=== PATIENT | female | born 1965 | race Caucasian/White ===

== ENCOUNTER → 2017-08-17 14:09 | Outpatient (CLI) | payer OTHER, SELFPAY | PROVIDERS: Family Provider Family Medicine; PCP Family Medicine; Visit Provider Specialist | DX: M25.511 Pain in right shoulder (principal); Z53.9 Procedure and treatment not carried out, unspecified reason ==

== ENCOUNTER → 2017-08-18 09:00 | Outpatient (CLI) | payer OTHER, SELFPAY ==
--- NOTE | 2017-08-18 | DI.US.S_ITS ---
PROCEDURE: US PERIPH VENOUS UP EXTREM RT INDICATIONS: RIGHT SHOULDER PAIN TECHNIQUE: Real-time imaging, as well as color and pulse Doppler interrogation, was performed of the right upper extremity deep veins from the inferior neck to the antecubital fossa. COMPARISON: None. FINDINGS: The internal jugular vein, visualized portions of the subclavian vein, axillary, and brachial veins are free of intraluminal thrombus. Where physically possible, the veins are normally compressible. Color and pulse Doppler demonstrate normal intraluminal flow, with expected phasicity and pulsatility. Additional scanning of the cephalic and basilic veins of the superficial system demonstrate normal compressibility, without thrombus. IMPRESSION: No evidence of right upper extremity DVT. Dictated by: Kristian Bolton M.D. on 08/18/2017 at 10:54 Approved by: Kristian Bolton M.D. on 08/18/2017 at 10:54
== END ==
PROVIDERS: Family Provider Family Medicine; PCP Family Medicine; Visit Provider Surgery
DX: M25.511 Pain in right shoulder (principal)
CPT/HCPCS: 93971

== ENCOUNTER 2017-08-21 11:04 | Emergency (ER) | payer OTHER, SELFPAY ==
[2017-08-21 11:14] VITALS: BP 164/90; PULSE 109; RESP 16; TEMP 37.2; O2SAT 100
--- NOTE | 2017-08-21 11:16 | ED.CHESTPAIN ---
HPI - Chest Pain General Chief Complaint: Chest Pain Stated Complaint: CHEST PAINS Time Seen by Provider: 08/21/17 11:16 Source: patient and RN notes reviewed Mode of arrival: ambulatory Limitations: no limitations History of Present Illness HPI narrative: Patient is a 52-year-old female presenting with chest pain. He is been ongoing for a number of weeks. She said she was diagnosed with pneumonia she is placed on Cipro she is still taking Cipro but almost done. Hurts every time she breathes in every time she moves. Today at [facility] she was seen and she felt that she could not think she started having increasing pain and came to the ED. She is very anxious now. He had something similar to this happen to her in April. She was seen multiple times in the same week. She is asking for pain medication. MD complaint: chest pain Related Data Home Medications Medication Instructions Recorded Confirmed CA PANTOTHENATE/FOLIC ACID/VIT 1 tab PO QDAY #0 tab 01/08/13 (MULTIVITAMIN) albuterol sulfate [Proventil HFA] 2 puff INH Q4HP PRN #0 01/08/13 hydroxyzine HCl 25 mg PO QID #0 01/08/13 magnesium oxide 400 mg PO Q DAY #0 tab 01/08/13 pregabalin [Lyrica] 225 mg PO BID #0 01/08/13 insulin glargine [Lantus U-100 15 unit SQ QPM #0 06/16/16 Insulin] duloxetine 60 mg PO QDAY #0 07/04/17 gabapentin [Neurontin] 600 mg PO TID #0 07/04/17 hydrocodone-acetaminophen [Vicodin] #0 07/04/17 multivitamin [Multiple Vitamins] 1 tab PO QDAY #0 07/04/17 zolpidem [Ambien] 10 mg PO HS #0 07/04/17 Previous Rx's Medication Instructions Recorded levofloxacin [Levaquin] 750 mg PO QDAY #5 tab 02/04/17 diphenoxylate-atropine 1 tab PO Q4HP PRN #10 tab 05/13/17 sucralfate [Carafate] 1 gm PO ACHS 14 Days #0 ml 05/14/17 Allergies Allergy/AdvReac Type Severity Reaction Status Date / Time fenofibrate [FENOFIBRATE] Allergy Unknown Unverified 07/06/17 11:47 metformin [METFORMIN] Allergy Unknown Unverified 07/06/17 11:47 mupirocin Allergy Unknown Unverified 07/06/17 11:47 naproxen Allergy Unknown Unverified 07/06/17 11:47 nitrofurantoin Allergy Unknown NAUSEA Unverified 07/06/17 11:47 Penicillins Allergy Unknown SINCE Unverified 07/06/17 11:47 CHILDHOOD droperidol AdvReac Unknown Unverified 07/06/17 11:47 ibuprofen AdvReac Unknown NAUSEA Unverified 07/06/17 11:47 metoclopramide AdvReac Unknown BECAME Unverified 07/06/17 11:47 JITTERY AND ANXIOUS Review of Systems Review of Systems All systems reviewed & are unremarkable except as noted in HPI and below Constitutional Denies chills, Denies fever(s), Denies lethargy and Denies weakness Cardiovascular Reports as per HPI, Denies dyspnea and Denies dyspnea on exertion Respiratory Denies cough, Denies dyspnea, Denies dyspnea on exertion and Denies wheezing Gastrointestinal Gastrointestinal: Denies abdominal pain, Denies change in bowel habits, Denies diarrhea, Denies nausea and Denies vomiting Musculoskeletal Denies back pain, Denies muscle weakness, Denies numbness and Denies tingling Integumentary/Breasts Denies pruritus, Denies erythema, Denies rash and Denies wounds Neurologic Denies numbness, Denies tingling and Denies weakness Allergic/Immunologic Denies wheezing PFSH Medical History Anxiety (Acute) Port-a-cath in place (Acute) UTI (urinary tract infection) (Acute) Exam Initial Vital Signs Initial Vital Signs: Vital Signs Temperature 98.9 F 08/21/17 11:14 Pulse Rate 109 H 08/21/17 11:14 Respiratory Rate 16 08/21/17 11:14 Blood Pressure 164/90 H 08/21/17 11:14 Pulse Oximetry 100 08/21/17 11:14 Const General: anxious and other (tearfull) Nutritional Appearance: average body habitus Chest Chest: normal inspection of the chest Resp Effort & Inspection: normal respiratory effort, able to speak in complete sentences, no respiratory distress and no use of accessory muscles Auscultation: clear to auscultation bilaterally, no rales, no rhonchi and no wheezes Cardio Rate: regular rate Rhythm: regular rhythm Heart Sounds: no click, no gallops, no murmurs and no rubs Pulses: normal peripheral pulses GI Inspection: non-distended Palpation: soft, no hepatosplenomegaly, No guarding, No pulsatile mass and No tender Auscultation: normal bowel sounds Skin General: no rashes or lesions noted, No jaundice and No petechiae Neuro General: alert, oriented x3, gait normal and no focal motor deficits Speech: speech normal Course Orders Ordered: ED Orders 08/21/17 11:23 XR chest 1V Stat 08/21/17 11:31 B Type Natriuretic Peptide Stat Complete Blood Count AUTO DIFF Stat Comprehensive Metabolic Panel Stat D Dimer Stat Lipase Stat Troponin with CK Cardiac Panel Stat Discontinued Medications Aspirin (Aspirin Chew) 324 mg PO NOW ONE Stop: 08/21/17 11:24 Last Admin: 08/21/17 11:31 Dose: 324 mg Lorazepam (Ativan) 1 mg IV NOW ONE Stop: 08/21/17 11:42 Last Admin: 08/21/17 11:45 Dose: 1 mg Ondansetron HCl (Zofran) 4 mg IV NOW ONE Stop: 08/21/17 11:42 Last Admin: 08/21/17 11:45 Dose: 4 mg Vital Signs - 8 hr 08/21/17 11:14 08/21/17 12:10 08/21/17 13:11 Temperature 98.9 F Pulse Rate 109 H 99 H 98 H Respiratory Rate 16 12 14 Blood Pressure 164/90 H Blood Pressure [Right Arm] 145/86 H Pulse Oximetry 100 100 99 MDM - Chest Pain Differential Diagnosis Likely pneumothorax, unstable angina pectoris, atypical chest pain, costochondritis and chest pain Medical Records Data Attestation: I reviewed the patient's medical records. Lab Data Attestation: I reviewed the patient's lab results. Result diagrams: 08/21/17 11:31 08/21/17 11:31 Lab Results 08/21/17 08/21/17 08/21/17 Range/Units 11:31 11:31 11:31 WBC 13.2 H (4.5-11.0) X10^3/uL RBC 4.04 (4.0-5.2) X10^6/uL Hgb 12.2 (12.0-16.0) g/dL Hct 35.6 L (36-46) % MCV 88.2 (80-100) fL MCH 30.2 (26-34) PG MCHC 34.2 (30-36) % RDW 13.5 (11.6-14.8) % Plt Count 334 (150-400) X10^3/uL Neut % (Auto) 68.2 (50-75) % Lymph % (Auto) 25.2 (25-40) % Howell % (Auto) 5.7 (3-14) % Eos % (Auto) 0.4 L (2-4) % Baso % (Auto) 0.5 (0-2) % Neut # (Auto) 9000 H (9733-4956) /uL D-Dimer < 200 (<231) ng/mL Sodium 136 L (137-145) mmol/L Potassium 4.3 (3.4-5.1) mmol/L Chloride 100.0 (98-107) mmol/L Carbon Dioxide 24.0 (22-32) mmol/L BUN 15.0 (7-17) mg/dL Creatinine 0.50 L (0.52-1.04) mg/dL Estimated GFR > 60.0 (>60) mL/min BUN/Creatinine Ratio 30.0 H (6-22) Glucose 233 H (70-100) mg/dL Calcium 9.6 (8.4-10.2) mg/dL Total Bilirubin 0.4 (0.2-1.3) mg/dL AST 20 (14-36) IU/L ALT 19 (9-52) IU/L Alkaline Phosphatase 106 (38-126) U/L Total Creatine Kinase 38 (30-135) U/L Troponin I < 0.012 (0.01-0.034) ng/mL B-Natriuretic Peptide (<100) Total Protein 7.7 (6.3-8.2) g/dL Albumin 4.3 (3.5-5.0) g/dL Globulin 3.4 (1.7-4.1) g/dL Albumin/Globulin Ratio 1.3 (1.0-2.8) Lipase 19 L (23-300) U/L / Range/Units 11:31 WBC (4.5-11.0) X10^3/uL RBC (4.0-5.2) X10^6/uL Hgb (12.0-16.0) g/dL Hct (36-46) % MCV (80-100) fL MCH (26-34) PG MCHC (30-36) % RDW (11.6-14.8) % Plt Count (150-400) X10^3/uL Neut % (Auto) (50-75) % Lymph % (Auto) (25-40) % Howell % (Auto) (3-14) % Eos % (Auto) (2-4) % Baso % (Auto) (0-2) % Neut # (Auto) (3786-4591) /uL D-Dimer (<231) ng/mL Sodium (137-145) mmol/L Potassium (3.4-5.1) mmol/L Chloride (98-107) mmol/L Carbon Dioxide (22-32) mmol/L BUN (7-17) mg/dL Creatinine (0.52-1.04) mg/dL Estimated GFR (>60) mL/min BUN/Creatinine Ratio (6-22) Glucose (70-100) mg/dL Calcium (8.4-10.2) mg/dL Total Bilirubin (0.2-1.3) mg/dL AST (14-36) IU/L ALT (9-52) IU/L Alkaline Phosphatase (38-126) U/L Total Creatine Kinase (30-135) U/L Troponin I (0.01-0.034) ng/mL B-Natriuretic Peptide < 29.3 L (<100) Total Protein (6.3-8.2) g/dL Albumin (3.5-5.0) g/dL Globulin (1.7-4.1) g/dL Albumin/Globulin Ratio (1.0-2.8) Lipase (23-300) U/L Imaging Data Chest x-ray: Radiologist's impression: PROCEDURE: XR CHEST 1V INDICATIONS: chest pain TECHNIQUE: One view of the chest was acquired. COMPARISON: [facility], CHEST 1 VIEW, 07/12/2017, 9:01. [facility], CHEST 1 VIEW, 05/13/2017, 17:50. [facility], CHEST 2 VIEW, 01/10/2014, 11:32. FINDINGS: Surgical changes and devices: Port-A-Cath positioning stable over time. Lungs and pleura: No pleural effusions or pneumothorax. Lungs are clear. Mediastinum: Mediastinal contours appear normal. Heart size is normal. Bones and chest wall: No suspicious bony lesions. Overlying soft tissues appear unremarkable. IMPRESSION: Port-A-Cath in normal position, no pneumonia seen, source of new chest pain is not found. Venous US: Radiologist's impression: PROCEDURE: US PERIPH VENOUS UP EXTREM RT INDICATIONS: RIGHT SHOULDER PAIN TECHNIQUE: Real-time imaging, as well as color and pulse Doppler interrogation, was performed of the right upper extremity deep veins from the inferior neck to the antecubital fossa. COMPARISON: None. FINDINGS: The internal jugular vein, visualized portions of the subclavian vein, axillary, and brachial veins are free of intraluminal thrombus. Where physically possible, the veins are normally compressible. Color and pulse Doppler demonstrate normal intraluminal flow, with expected phasicity and pulsatility. Additional scanning of the cephalic and basilic veins of the superficial system demonstrate normal compressibility, without thrombus. IMPRESSION: No evidence of right upper extremity DVT. Dictated by: Kristian Bolton M.D. on 08/18/2017 at 10:54 ECG Data Attestation: I personally reviewed and interpreted this ECG as follows: Prior ECG tracings: available for review Interpretation: Normal sinus rhythm rate 1002 no ischemia similar to previous EKGs no ST changes MDM Narrative Medical decision making narrative: Patient is quite anxious. She has been having chest for is couple of weeks. It got worse today and then she started becoming very anxious. She was given Ativan. She is asking for Dilaudid. She is offered prednisone due to her NSAID allergy. She has a tumor go home and take her own pain medication. She had a Doppler of her right upper extremity a couple days ago which was negative and she has negative D-dimer today. I do not believe her to have PE. She had a similar presentation in April 2017 she had full PE workup, it was negative. Discharge Plan Departure Patient Disposition: Home, Self-Care Clinical Impression: Costochondritis Discharge Date/Time: 08/21/17 13:11 Interventions: ED Discharge Assessment Last Done: 08/21/17 13:11 Instructions: DI for Costochondritis Activity Restrictions/Additional Instructions: *You have been diagnosed with costochondritis *What to do: Inflammation between the ribs, this takes time to heal *Take medications as directed *Follow up with your primary care provider in 2-3 days *Return to ER if you should have any new, worsening or concerning symptoms Prescriptions: No Action hydroxyzine HCl 25 MG tablet 25 mg PO QID Qty: 0 RF: 0 magnesium oxide 400 MG tablet 400 mg PO Q DAY Qty: 0 RF: 0 pregabalin [Lyrica] 225 MG capsule 225 mg PO BID Qty: 0 RF: 0 CA PANTOTHENATE/FOLIC ACID/VIT (MULTIVITAMIN) 1 tab PO QDAY Qty: 0 RF: 0 albuterol sulfate [Proventil HFA] 90 MCG/PUFF HFA aerosol inhaler 2 puff INH Q4HP PRNQty: 0 RF: 0 insulin glargine [Lantus U-100 Insulin] 100 UNIT/1 ML solution 15 unit SQ QPM Qty: 0 RF: 0 levofloxacin [Levaquin] 750 MG tablet 750 mg PO QDAY Qty: 5 RF: 0 diphenoxylate-atropine 2.5 MG/0.025 MG tablet 1 tab PO Q4HP PRNQty: 10 RF: 0 sucralfate [Carafate] 1 GM/10 ML suspension 1 gm PO ACHS 14 Days Qty: 0 RF: 0 duloxetine 60 MG capsule,delayed release(DR/EC) 60 mg PO QDAY Qty: 0 RF: 0 gabapentin [Neurontin] 300 MG capsule 600 mg PO TID Qty: 0 RF: 0 multivitamin [Multiple Vitamins] 1 EACH tablet 1 tab PO QDAY Qty: 0 RF: 0 zolpidem [Ambien] 10 MG tablet 10 mg PO HS Qty: 0 RF: 0 hydrocodone-acetaminophen [Vicodin] 5-300 mg Tablet Qty: 0 RF: 0 Referrals: Fadi Ko DO [Primary Care Provider] -
--- NOTE | 2017-08-21 11:23 | DI.RAD.S_ITS ---
PROCEDURE: XR CHEST 1V INDICATIONS: chest pain TECHNIQUE: One view of the chest was acquired. COMPARISON: [facility], , CHEST 1 VIEW, 07/12/2017, 9:01. [facility], CR, CHEST 1 VIEW, 05/13/2017, 17:50. [facility], , CHEST 2 VIEW, 01/10/2014, 11:32. FINDINGS: Surgical changes and devices: Port-A-Cath positioning stable over time. Lungs and pleura: No pleural effusions or pneumothorax. Lungs are clear. Mediastinum: Mediastinal contours appear normal. Heart size is normal. Bones and chest wall: No suspicious bony lesions. Overlying soft tissues appear unremarkable. IMPRESSION: Port-A-Cath in normal position, no pneumonia seen, source of new chest pain is not found. Dictated by: Akbar Ortiz M.D. on 08/21/2017 at 11:53 Approved by: Akbar Ortiz M.D. on 08/21/2017 at 11:53
[2017-08-21] MEDS: ASPIRIN 81 MG TAB 324 MG PO (11:31)
[2017-08-21] MEDS: ONDANSETRON 4 MG/2 ML INJ IV (11:45)
[2017-08-21] MEDS: LORazepam 2 MG/ML SYRINGE 1 MG IV (11:45)
[2017-08-21 11:50] LABS: Add Manual Diff / Slide Review NO; Basophils Percent Auto 0.5 % (0-2); Eosinophils Percent Auto 0.4 % (2-4); Hematocrit 35.6 % (36-46); Hemoglobin 12.2 g/dL (12.0-16.0); Lymphocytes Percent Auto 25.2 % (25-40); Mean Corpuscular HGB Conc 34.2 % (30-36); Mean Corpuscular Hemoglobin 30.2 PG (26-34); Mean Corpuscular Volume 88.2 fL (80-100); Monocytes Percent Auto 5.7 % (3-14); Neutrophils Absolute Auto 9000 /uL (3000-5900); Neutrophils Percent Auto 68.2 % (50-75); Platelet Count 334 X10^3/uL (150-400); Red Blood Cell Count 4.04 X10^6/uL (4.0-5.2); Red Cell Distribution Width 13.5 % (11.6-14.8); White Blood Cell Count 13.2 X10^3/uL (4.5-11.0)
[2017-08-21 11:52] LABS: Alanine Aminotransferase 19 IU/L (9-52); Albumin 4.3 g/dL (3.5-5.0); Albumin Globulin Ratio 1.3 (1.0-2.8); Alkaline Phosphatase 106 U/L (38-126); Aspartate Aminotransferase 20 IU/L (14-36); Bilirubin Total 0.4 mg/dL (0.2-1.3); Calcium 9.6 mg/dL (8.4-10.2); Creatine Kinase 38 U/L (30-135); Estimated Glomerular Filt Rate > 60.0 mL/min (>60); Globulin 3.4 g/dL (1.7-4.1); Glucose 233 mg/dL (70-100); HEMOLYSIS < 15 (0-50); Lipase 19 U/L (23-300); Potassium 4.3 mmol/L (3.4-5.1); Sodium 136 mmol/L (137-145); Total Protein 7.7 g/dL (6.3-8.2)
[2017-08-21 12:05] LABS: Troponin I < 0.012 ng/mL (0.01-0.034)
[2017-08-21 12:10] VITALS: BP 145/86; PULSE 99; RESP 12; O2SAT 100
[2017-08-21 12:11] LABS: D Dimer < 200 ng/mL (<231)
[2017-08-21 12:19] LABS: B Type Natriuretic Peptide < 29.3 (<100)
[2017-08-21 13:11] VITALS: PULSE 98; RESP 14; O2SAT 99
== END 2017-08-21 13:11 | disposition home or self-care (01) ==
PROVIDERS: Emergency Provider Emergency Medicine; Family Provider Family Medicine; PCP Family Medicine
DX: M94.0 Chondrocostal junction syndrome [Tietze] (principal)
CPT/HCPCS: 36591; 71045; 80053; 82550; 82553; 83690; 83880; 84484; 85025; 85379; 93005; 93041; 96374; 96375; 99283; 99285; J2060; J2405

== ENCOUNTER 2017-09-26 09:47 | Emergency (ER) | payer OTHER, SELFPAY ==
[2017-09-26 10:01] VITALS: BP 178/88; PULSE 103; RESP 16; TEMP 36.7; O2SAT 100
--- NOTE | 2017-09-26 10:24 | ED_ITS ---
HPI - Chest Pain General Chief Complaint: Chest Pain Stated Complaint: PAIN ON RIGHT SIDE Time Seen by Provider: 09/26/17 09:54 Source: patient Mode of arrival: ambulatory Limitations: no limitations History of Present Illness HPI narrative: 52-year-old female here for evaluation of right-sided chest wall pain. Patient states that it started yesterday. She states that it was a fairly sudden onset. States that it radiates from her armpit under her right breast and down into her right leg. Denies any trauma. Denies any skin changes. Denies any shortness of breath. States that it is worse with movement of her arm. States it is better when she supports her right breast. She states that it is worse when she takes a big deep breath and also with touching the right side of her chest wall. Related Data Home Medications Medication Instructions Recorded Confirmed albuterol sulfate [Proventil HFA] 2 puff INH Q4HP PRN #0 01/08/13 09/26/17 hydroxyzine HCl 25 mg PO QID #0 01/08/13 09/26/17 magnesium oxide 400 mg PO BEDTIME #0 tab 01/08/13 09/26/17 duloxetine 60 mg PO QDAY #0 07/04/17 09/26/17 gabapentin [Neurontin] 600 mg PO QID #0 07/04/17 09/26/17 multivitamin [Multiple Vitamins] 1 tab PO QDAY #0 07/04/17 09/26/17 zolpidem [Ambien] 10 mg PO HS #0 07/04/17 09/26/17 Probiotic 1 tab PO BID 09/26/17 09/26/17 amitriptyline 3 tab PO BEDTIME 09/26/17 09/26/17 insulin NPH isoph U-100 human 15 units SUB-Q BEDTIME 09/26/17 09/26/17 [Humulin N NPH Insulin KwikPen] lisinopril 10 mg PO DAILY 09/26/17 09/26/17 omeprazole 20 mg PO BID 09/26/17 09/26/17 ondansetron 1 tab TRANSLINGUAL Q6H PRN 09/26/17 09/26/17 potassium chloride 20 meq PO QNOON 09/26/17 09/26/17 rivaroxaban [Xarelto] 20 mg PO DAILY 09/26/17 09/26/17 vitamin E 1 cap PO DAILY 09/26/17 09/26/17 Previous Rx's Medication Instructions Recorded hydrocodone-acetaminophen 1 tab PO Q6H PRN #5 tab 09/26/17 lorazepam 1 mg PO BID-TID PRN #7 tab 09/26/17 Allergies Allergy/AdvReac Type Severity Reaction Status Date / Time fenofibrate [FENOFIBRATE] Allergy Unknown Unverified 07/06/17 11:47 metformin [METFORMIN] Allergy Unknown Unverified 07/06/17 11:47 mupirocin Allergy Unknown Unverified 07/06/17 11:47 naproxen Allergy Unknown Unverified 07/06/17 11:47 nitrofurantoin Allergy Unknown NAUSEA Unverified 07/06/17 11:47 Penicillins Allergy Unknown SINCE Unverified 07/06/17 11:47 CHILDHOOD droperidol AdvReac Unknown Unverified 07/06/17 11:47 ibuprofen AdvReac Unknown NAUSEA Unverified 07/06/17 11:47 metoclopramide AdvReac Unknown BECAME Unverified 07/06/17 11:47 JITTERY AND ANXIOUS Review of Systems Constitutional Denies fatigue and Denies fever(s) Cardiovascular Reports chest pain ( Right-sided chest wall pain), Denies radiating jaw, neck or arm pain, Denies palpitations and Denies dyspnea Respiratory Denies cough, Denies dyspnea and Denies wheezing Gastrointestinal Gastrointestinal: Denies abdominal pain, Denies diarrhea, Denies nausea and Denies vomiting Musculoskeletal Denies numbness Comments: her right-sided chest pains radiating down her right leg Integumentary/Breasts Denies rash and Denies wounds Neurologic Denies confusion, Denies numbness and Denies restless legs Psychiatric Denies confusion Endocrine Denies fatigue and Denies palpitations Hematologic/Lymphatic Denies easy bleeding and Denies easy bruising Allergic/Immunologic Denies wheezing [facility] Medical History Anxiety (Acute) Port-a-cath in place (Acute) UTI (urinary tract infection) (Acute) Exam Initial Vital Signs Initial Vital Signs: Vital Signs Temperature 98.1 F 09/26/17 10:01 Pulse Rate 103 H 09/26/17 10:01 Respiratory Rate 16 09/26/17 10:01 Blood Pressure 178/88 H 09/26/17 10:01 Pulse Oximetry 100 09/26/17 10:01 Const General: cooperative, No acute distress, anxious and frail appearing Orientation: alert, awake and oriented x3 HENMT Head: normal to inspection, normocephalic and atraumatic Chest Other: patient with reproducible pain that brought her in today with palpation of the right side of her chest and across her upper chest. Resp Effort & Inspection: normal respiratory effort and able to speak in complete sentences Auscultation: clear to auscultation bilaterally Cardio Rate: regular rate Rhythm: regular rhythm Pulses: radial pulses present GI Other: Patient with a colostomy bag in place and multiple well-healed surgical scars in her abdomen Skin Lesions: no lesions Rashes: no rashes Neuro General: alert and oriented x3 Psych Other: anxious Course Orders Ordered: ED Orders 09/26/17 10:16 EKG-12 Lead Stat 09/26/17 10:27 XR chest 2V Stat Discontinued Medications Lorazepam (Ativan) 1 mg PO NOW ONE Stop: 09/26/17 11:04 Last Admin: 09/26/17 11:18 Dose: Vital Signs - 8 hr 09/26/17 10:01 09/26/17 11:17 09/26/17 11:18 Temperature 98.1 F Pulse Rate 103 H 96 H 94 H Respiratory Rate 16 16 20 Blood Pressure 178/88 H 133/87 H Blood Pressure [Left Arm] 133/87 H Pulse Oximetry 100 100 98 MDM - Chest Pain Medical Records Data Attestation: I reviewed the patient's medical records. Imaging Data Chest x-ray: Radiologist's impression: PROCEDURE: XR CHEST 2V INDICATIONS: right-sided chest pain status post Port-A-Cath removal TECHNIQUE: 2 views of the chest were acquired. COMPARISON: [facility], , XR CHEST 1V, 08/21/2017, 11:35. FINDINGS: Surgical changes and devices: None. Lungs and pleura: No pleural effusions or pneumothorax. Lungs are clear. Mediastinum: Mediastinal contours are normal. Heart size is normal. Bones and chest wall: No suspicious bony abnormalities. Soft tissues appear unremarkable. IMPRESSION: No acute pulmonary process. Dictated by: Anisha Solis M.D. on 09/26/2017 at 11:09 Approved by: Anisha Solis M.D. on 09/26/2017 at 11:18 ECG Data Attestation: I personally reviewed and interpreted this ECG as follows: Prior ECG tracings: not available for review Interpretation: Sinus tachycardia ventricular rate of 102 normal axis Normal QRS normal QTC Nonspecific ST T wave changes MDM Narrative Medical decision making narrative: patient is currently on Xarelto for right upper extremity DVT that was diagnosed after she had a right-sided Port-A-Cath placed. The Port-A-Cath has since been removed. There are no signs of infection at that site. Patient has reproducible right-sided chest wall pain with movement of her right arm and also with palpation. No skin changes that are concerning for zoster cellulitis. She is in no respiratory distress. Chest x-ray is unremarkable. EKG is sinus tachycardia. I do feel that since this is reproducible right-sided pain with palpation that her symptoms today are not consistent with a pulmonary embolism. I did discuss this with the patient. We did discuss that a CT scan could be performed however it would not show a right upper extremity DVT but would show there was a clot in her lungs. I do feel that since it is reproducible that this would not be warranted today. Will hold on a CT of her chest. Will send home with symptom treatment for 1 day. We did discuss return precautions to include skin rashes I be concerning for zoster another symptoms such as chest pain or shortness of breath or be concerning for cardiac or pulmonary etiology. The patient expressed understanding and agreement this plan. She did agree with holding on any CT scans for now. Her was at bedside who also agreed with these plans. Discharge Plan Departure Patient Disposition: Home, Self-Care Clinical Impression: Acute chest wall pain Discharge Date/Time: 09/26/17 11:19 Interventions: ED Discharge Assessment Last Done: 09/26/17 11:18 Instructions: DI for Atypical Chest Pain Activity Restrictions/Additional Instructions: recommend that you take all of your medications as instructed. Keep all scheduled medical appointments. Return to the emergency department for any new symptoms, shortness of breath, worsening pain, rashes, any other concerning symptoms. Prescriptions: New hydrocodone-acetaminophen 5-325 mg tablet 1 tab PO Q6H PRN (Reason: pain) Qty: 5 RF: 0 lorazepam 1 mg tablet 1 mg PO BID-TID PRN (Reason: anxiety) Qty: 7 RF: 0 No Action hydroxyzine HCl 25 MG tablet 25 mg PO QID Qty: 0 RF: 0 magnesium oxide 400 MG tablet 400 mg PO BEDTIME Qty: 0 RF: 0 albuterol sulfate [Proventil HFA] 90 MCG/PUFF HFA aerosol inhaler 2 puff INH Q4HP PRN (Reason: Shortness Of Breath) Qty: 0 RF: 0 duloxetine 60 MG capsule,delayed release(DR/EC) 60 mg PO QDAY Qty: 0 RF: 0 gabapentin [Neurontin] 300 MG capsule 600 mg PO QID Qty: 0 RF: 0 multivitamin [Multiple Vitamins] 1 EACH tablet 1 tab PO QDAY Qty: 0 RF: 0 zolpidem [Ambien] 10 MG tablet 10 mg PO HS Qty: 0 RF: 0 amitriptyline 50 mg tablet 3 tab PO BEDTIME RF: 0 potassium chloride 20 mEq tablet,ER particles/crystals 20 meq PO QNOON RF: 0 lisinopril 10 mg tablet 10 mg PO DAILY RF: 0 omeprazole 20 mg capsule,delayed release(DR/EC) 20 mg PO BID RF: 0 ondansetron 4 mg tablet,disintegrating 1 tab Translingual Q6H PRN (Reason: Nausea) RF: 0 insulin NPH isoph U-100 human [Humulin N NPH Insulin KwikPen] 100 unit/mL (3 mL) insulin pen 15 units Sub-Q BEDTIME RF: 0 rivaroxaban [Xarelto] 20 mg tablet 20 mg PO DAILY RF: 0 Probiotic 1 tab PO BID RF: 0 vitamin E 1 cap PO DAILY RF: 0
--- NOTE | 2017-09-26 10:27 | DI.RAD.S_ITS ---
PROCEDURE: XR CHEST 2V INDICATIONS: right-sided chest pain status post Port-A-Cath removal TECHNIQUE: 2 views of the chest were acquired. COMPARISON: [facility], , XR CHEST 1V, 08/21/2017, 11:35. FINDINGS: Surgical changes and devices: None. Lungs and pleura: No pleural effusions or pneumothorax. Lungs are clear. Mediastinum: Mediastinal contours are normal. Heart size is normal. Bones and chest wall: No suspicious bony abnormalities. Soft tissues appear unremarkable. IMPRESSION: No acute pulmonary process. Dictated by: Anisha Solis M.D. on 09/26/2017 at 11:09 Approved by: Anisha Solis M.D. on 09/26/2017 at 11:18
[2017-09-26 11:17] VITALS: BP 133/87; PULSE 96; RESP 16; O2SAT 100
[2017-09-26 11:18] VITALS: BP 133/87; PULSE 94; RESP 20; O2SAT 98
== END 2017-09-26 11:19 | disposition home or self-care (01) ==
PROVIDERS: Emergency Provider Emergency Medicine; Family Provider Family Medicine; PCP Family Medicine
DX: R07.89 Other chest pain (principal)
CPT/HCPCS: 71046; 93005; 99283; 99284

== ENCOUNTER 2018-01-07 07:55 | Emergency (ER) | payer OTHER, SELFPAY ==
[2018-01-07 08:06] VITALS: BP 136/86; PULSE 101; RESP 18; O2SAT 100
[2018-01-07 08:21] VITALS: BP 136/86; PULSE 101; RESP 18; TEMP 36.7; O2SAT 100; BMI 18.8
[2018-01-07 08:23] LABS: Appearance Urine UA SL CLOUDY; Bilirubin Urine UA NEGATIVE (NEGATIVE); Color Urine UA YELLOW; Glucose Urine UA NEGATIVE (Normal); Ketones Urine UA NEGATIVE (NEGATIVE); Leukocyte Esterase Urine UA NEGATIVE (NEGATIVE); Nitrite Urine UA NEGATIVE (Negative); Occult Blood Urine UA TRACE-INTACT (Negative); Protein Urine UA TRACE (Negative); Specific Gravity Urine UA 1.015 (1.000-1.035); Urobilinogen Urine UA 0.2 E.U./dL (0.2)
--- NOTE | 2018-01-07 08:37 | ED_ITS ---
HPI - Back Pain/Injury General Chief Complaint: Back Pain/Injury Stated Complaint: lower back pain, orange urine Time Seen by Provider: 01/07/18 08:04 Source: patient Mode of arrival: ambulatory Limitations: no limitations History of Present Illness HPI Narrative: 52F former smoker presents with orange colored urine and continued back pain. She is chronically in pain and tearful and recently was admitted at [facility] for pyelonephritis. She was admitted for a few days on IV abx and was discharged home on Cipro, which she continues to take. She reports subjective fever. She's had no chest pain, nausea, or vomiting. She denies any injury or trauma. She has a urostomy and just changed her bag this morning. Her Port-A-Cath was removed due to clotting and she is currently taking Chalo BELTRAN Complaint: back pain Onset (ago): day(s) Duration: constant Similar Symptoms Previously: Yes Location: left flank and right flank Severity: moderate Quality: aching Radiation: none Relieving factors: none Exacerbating factors: movement Associated symptoms: fatigue, fever and chills Related Data Home Medications Medication Instructions Recorded Confirmed albuterol sulfate [Proventil HFA] 2 puff INH Q4HP PRN #0 01/08/13 09/26/17 hydroxyzine HCl 25 mg PO QID #0 01/08/13 09/26/17 magnesium oxide 400 mg PO BEDTIME #0 tab 01/08/13 09/26/17 duloxetine 60 mg PO QDAY #0 07/04/17 09/26/17 gabapentin [Neurontin] 600 mg PO QID #0 07/04/17 09/26/17 multivitamin [Multiple Vitamins] 1 tab PO QDAY #0 07/04/17 09/26/17 zolpidem [Ambien] 10 mg PO HS #0 07/04/17 09/26/17 Probiotic 1 tab PO BID 09/26/17 09/26/17 amitriptyline 3 tab PO BEDTIME 09/26/17 09/26/17 insulin NPH isoph U-100 human 15 units SUB-Q BEDTIME 09/26/17 09/26/17 [Humulin N NPH Insulin KwikPen] lisinopril 10 mg PO DAILY 09/26/17 09/26/17 omeprazole 20 mg PO BID 09/26/17 09/26/17 ondansetron 1 tab TRANSLINGUAL Q6H PRN 09/26/17 09/26/17 potassium chloride 20 meq PO QNOON 09/26/17 09/26/17 rivaroxaban [Xarelto] 20 mg PO DAILY 09/26/17 09/26/17 vitamin E 1 cap PO DAILY 09/26/17 09/26/17 Previous Rx's Medication Instructions Recorded hydrocodone-acetaminophen 1 tab PO Q6H PRN #5 tab 09/26/17 lorazepam 1 mg PO BID-TID PRN #7 tab 09/26/17 Allergies Allergy/AdvReac Type Severity Reaction Status Date / Time fenofibrate [FENOFIBRATE] Allergy Unknown Verified 01/07/18 09:59 metformin [METFORMIN] Allergy Unknown Verified 01/07/18 09:59 mupirocin Allergy Unknown Verified 01/07/18 09:59 naproxen Allergy Unknown Verified 01/07/18 09:59 nitrofurantoin Allergy Unknown NAUSEA Verified 01/07/18 09:59 Penicillins Allergy Unknown SINCE Verified 01/07/18 09:59 CHILDHOOD droperidol AdvReac Unknown Verified 01/07/18 09:59 ibuprofen AdvReac Unknown NAUSEA Verified 01/07/18 09:59 metoclopramide AdvReac Unknown BECAME Verified 01/07/18 09:59 JITTERY AND ANXIOUS Review of Systems Review of Systems All systems reviewed & are unremarkable except as noted in HPI and below Constitutional Reports chills, Reports fever(s), Denies lethargy and Reports weakness Eyes Denies change in vision, Denies eye discharge, Denies irritation and Denies loss of vision ENT Ears, Nose, Mouth, and Throat: Denies change in voice, Denies neck pain and Denies sore throat Cardiovascular Denies chest pain, Denies irregular heart rhythm, Denies lightheadedness, Denies palpitations, Denies dyspnea, Denies dyspnea on exertion and Denies orthopnea Respiratory Denies cough, Denies dyspnea, Denies dyspnea on exertion and Denies wheezing Gastrointestinal Gastrointestinal: Denies abdominal pain, Denies change in bowel habits, Denies diarrhea, Denies nausea and Denies vomiting Genitourinary Denies hematuria, Denies flank pain, Denies urinary incontinence and Denies urinary urgency Musculoskeletal Reports back pain and Denies neck pain Integumentary/Breasts Denies pruritus, Denies erythema, Denies rash and Denies wounds Neurologic Denies confusion, Denies loss of vision and Reports weakness Psychiatric Denies anxiety, Denies confusion, Denies depression, Denies homicidal ideation and Denies suicidal ideation Endocrine Denies palpitations Hematologic/Lymphatic Denies easy bruising Allergic/Immunologic Denies wheezing [facility] Medical History Anxiety (Acute) Port-a-cath in place (Acute) UTI (urinary tract infection) (Acute) Social History Smoking Status: Former smoker Exam Narrative Exam Narrative: 52F tearful, upset, anxious, and in pain Initial Vital Signs Initial Vital Signs: Vital Signs Pulse Rate 101 H 01/07/18 08:06 Respiratory Rate 18 01/07/18 08:06 Blood Pressure 136/86 01/07/18 08:06 Pulse Oximetry 100 01/07/18 08:06 Const General: cooperative, well developed, in distress and anxious Nutritional Appearance: well nourished Orientation: alert, awake, oriented x3 and not confused HENMT Head: normocephalic and atraumatic Ears: external ears normal and TM's normal bilaterally Nose: external nose normal and No nasal discharge Face and sinus: sinuses nontender, face symmetric, no sinus tenderness and No dry mucous membranes Mouth: oral mucosae normal and moist mucous membranes Teeth and gingiva: dentition normal Throat: tonsils normal and uvula midline Neck Neck: normal visual inspection, trachea midline, No lymphadenopathy, No midline deformity and No JVD Lymphatic: No lymphedema Chest Chest: normal inspection of the chest Cardio Rate: regular rate Rhythm: regular rhythm Heart Sounds: no click, no gallops, no murmurs and no rubs Pulses: normal peripheral pulses GI Inspection: non-distended Palpation: soft, no hepatosplenomegaly, No guarding, No pulsatile mass and No tender Auscultation: normal bowel sounds Other: urostomy draining yellow urine Back/Spine/Pelvis Other: B/L CVA tenderness Skin General: no rashes or lesions noted, No jaundice and No petechiae Neuro General: alert, awake, oriented x3, gait normal and no focal motor deficits Speech: speech normal Extrem General: full ROM, no clubbing, cyanosis or edema, no pedal edema and no calf tenderness Psych Appearance: disheveled Speech and Movement: speech and movement normal Affect: anxious affect Course Orders Ordered: Discontinued Medications Hydromorphone HCl (Dilaudid) 1 mg IV NOW ONE Stop: 01/07/18 08:25 Last Admin: 01/07/18 08:58 Dose: 1 mg Hydromorphone HCl (Dilaudid) 1 mg IM NOW ONE Stop: 01/07/18 09:14 Last Admin: 01/07/18 09:18 Dose: Sodium Chloride (Normal Saline 0.9%) 1,000 mls @ 1,000 mls/hr IV BOLUS ONE Stop: 01/07/18 09:28 Last Admin: 01/07/18 09:59 Dose: Not Given Vital Signs - 8 hr 01/07/18 11:40 Pulse Rate 92 H Respiratory Rate 14 Blood Pressure [Left Arm] 137/78 Pulse Oximetry 95 MDM - Back Pain/Injury Lab Data Result diagrams: 01/07/18 09:05 01/07/18 09:05 Lab Results 01/07/18 01/07/18 01/07/18 Range/Units 08:20 09:05 09:05 WBC 11.7 H (4.5-11.0) X10^3/uL RBC 3.78 L (4.0-5.2) X10^6/uL Hgb 11.5 L (12.0-16.0) g/dL Hct 33.8 L (36-46) % MCV 89.5 (80-100) fL MCH 30.3 (26-34) PG MCHC 33.9 (30-36) % RDW 13.3 (11.6-14.8) % Plt Count 315 (150-400) X10^3/uL Neut % (Auto) Not Reportable Lymph % (Auto) Not Reportable [place] % (Auto) Not Reportable Eos % (Auto) Not Reportable Baso % (Auto) Not Reportable Total Counted 100 Seg Neutrophils % 77.0 H (38-70) % Band Neutrophils % 6.0 (3-7) % Lymphocytes % (Manual) 6.0 L (25-45) % Atypical Lymphs % 3.0 H ( - 0) % Monocytes % (Manual) 7.0 (2-11) % Eosinophils % (Manual) 1.0 L (2-4) % Neutrophils # (Manual) 9711 H (5823-8245) /uL RBC Morphology See below Polychromasia 1+ H Sodium (137-145) mmol/L Potassium (3.4-5.1) mmol/L Chloride (98-107) mmol/L Carbon Dioxide (22-32) mmol/L BUN (7-17) mg/dL Creatinine (0.52-1.04) mg/dL Estimated GFR (>60) mL/min BUN/Creatinine Ratio (6-22) Glucose (70-100) mg/dL Lactate (0.7-2.1) mmol/L Calcium (8.4-10.2) mg/dL Procalcitonin 0.08 (<0.5) ng/mL Urine Color Yellow Urine Appearance Sl cloudy Urine pH 7.0 (4.5-8.0) Ur Specific [place] 1.015 (1.000-1.035) Urine Protein Trace H (Negative) Urine Glucose (UA) Negative (Normal) g/dL Urine Ketones Negative (NEGATIVE) Urine Occult Blood Trace-intact (Negative) Urine Nitrate Negative (Negative) Urine Bilirubin Negative (NEGATIVE) Urine Urobilinogen 0.2 (0.2) E.U./dL Ur Leukocyte Esterase Negative (NEGATIVE) Urine RBC 1-5/hpf (0-5/HPF) Urine WBC 10-30/hpf H (0-5/HPF) Urine Bacteria Moderate (10-30) H (None) Ur Culture Indicated? Specimen cultured Micro UA Comment Not Reportable 01/07/18 01/07/18 Range/Units 09:05 09:05 WBC (4.5-11.0) X10^3/uL RBC (4.0-5.2) X10^6/uL Hgb (12.0-16.0) g/dL Hct (36-46) % MCV (80-100) fL MCH (26-34) PG MCHC (30-36) % RDW (11.6-14.8) % Plt Count (150-400) X10^3/uL Neut % (Auto) Lymph % (Auto) [place] % (Auto) Eos % (Auto) Baso % (Auto) Total Counted Seg Neutrophils % (38-70) % Band Neutrophils % (3-7) % Lymphocytes % (Manual) (25-45) % Atypical Lymphs % ( - 0) % Monocytes % (Manual) (2-11) % Eosinophils % (Manual) (2-4) % Neutrophils # (Manual) (1891-0071) /uL RBC Morphology Polychromasia Sodium 137 (137-145) mmol/L Potassium 4.1 (3.4-5.1) mmol/L Chloride 100 (98-107) mmol/L Carbon Dioxide 28 (22-32) mmol/L BUN 10 (7-17) mg/dL Creatinine 0.50 L (0.52-1.04) mg/dL Estimated GFR > 60.0 (>60) mL/min BUN/Creatinine Ratio 20.0 (6-22) Glucose 270 H (70-100) mg/dL Lactate 1.1 (0.7-2.1) mmol/L Calcium 9.4 (8.4-10.2) mg/dL Procalcitonin (<0.5) ng/mL Urine Color Urine Appearance Urine pH (4.5-8.0) Ur Specific [place] (1.000-1.035) Urine Protein (Negative) Urine Glucose (UA) (Normal) g/dL Urine Ketones (NEGATIVE) Urine Occult Blood (Negative) Urine Nitrate (Negative) Urine Bilirubin (NEGATIVE) Urine Urobilinogen (0.2) E.U./dL Ur Leukocyte Esterase (NEGATIVE) Urine RBC (0-5/HPF) Urine WBC (0-5/HPF) Urine Bacteria (None) Ur Culture Indicated? Micro UA Comment MDM Narrative Medical decision making narrative: Urine cultures obtained from recent visit at would be and would suggest the ciprofloxacin which she is on is an appropriate antibiotic choice. Her labs are very reassuring as are her vital signs and exam. She feels much better on discharge and has her questions answered to her apparent satisfaction Discharge Plan Departure Patient Disposition: Home Clinical Impression: Pyelonephritis Discharge Date/Time: 01/07/18 11:56 Interventions: ED Discharge Assessment Last Done: 01/07/18 11:56 Instructions: DI for Kidney Infection Activity Restrictions/Additional Instructions: *You have been diagnosed with [ pyelonephritis ] *What to do: *Take medications as directed: continue your Cipro *Follow up with your primary care provider in 2-3 days, call for an appointment. Let them know you were seen in the Emergency Department and that we ask that you be seen in follow up *Return to ER if you should have any new, worsening or concerning symptoms Prescriptions: No Action hydroxyzine HCl 25 MG tablet 25 mg PO QID Qty: 0 RF: 0 magnesium oxide 400 MG tablet 400 mg PO BEDTIME Qty: 0 RF: 0 albuterol sulfate [Proventil HFA] 90 MCG/PUFF HFA aerosol inhaler 2 puff INH Q4HP PRN (Reason: Shortness Of Breath) Qty: 0 RF: 0 duloxetine 60 MG capsule,delayed release(DR/EC) 60 mg PO QDAY Qty: 0 RF: 0 gabapentin [Neurontin] 300 MG capsule 600 mg PO QID Qty: 0 RF: 0 multivitamin [Multiple Vitamins] 1 EACH tablet 1 tab PO QDAY Qty: 0 RF: 0 zolpidem [Ambien] 10 MG tablet 10 mg PO HS Qty: 0 RF: 0 amitriptyline 50 mg tablet 3 tab PO BEDTIME RF: 0 potassium chloride 20 mEq tablet,ER particles/crystals 20 meq PO QNOON RF: 0 lisinopril 10 mg tablet 10 mg PO DAILY RF: 0 omeprazole 20 mg capsule,delayed release(DR/EC) 20 mg PO BID RF: 0 ondansetron 4 mg tablet,disintegrating 1 tab Translingual Q6H PRN (Reason: Nausea) RF: 0 insulin NPH isoph U-100 human [Humulin N NPH Insulin KwikPen] 100 unit/mL (3 mL) insulin pen 15 units Sub-Q BEDTIME RF: 0 rivaroxaban [Xarelto] 20 mg tablet 20 mg PO DAILY RF: 0 Probiotic 1 tab PO BID RF: 0 vitamin E 1 cap PO DAILY RF: 0 hydrocodone-acetaminophen 5-325 mg tablet 1 tab PO Q6H PRN (Reason: pain) Qty: 5 RF: 0 lorazepam 1 mg tablet 1 mg PO BID-TID PRN (Reason: anxiety) Qty: 7 RF: 0 Referrals: Fadi Ko DO [Primary Care Provider] -
[2018-01-07 08:45] VITALS: BP 150/75
[2018-01-07] MEDS: HYDROMORPHONE 1 MG INJ IV (08:58)
--- NOTE | 2018-01-07 08:59 | PC.NURSE ---
No IV access so per VO, Pain meds given IM l VG.
[2018-01-07 09:02] LABS: Bacteria Urine Moderate (10-30); Culture Indicated Urine Specimen Cultured; RBC Urine 1-5/HPF (0-5/HPF); WBC Urine 10-30/HPF (0-5/HPF)
--- NOTE | 2018-01-07 09:06 | PC.NURSE ---
Per MD, IM meds and lab draw until we know if IV needed. Has had multiple attempts at [facility] few days ago and [address] [facility] went IJ for last IV.
[2018-01-07 09:23] LABS: Hematocrit 33.8 % (36-46); Hemoglobin 11.5 g/dL (12.0-16.0); Mean Corpuscular HGB Conc 33.9 % (30-36); Mean Corpuscular Hemoglobin 30.3 PG (26-34); Mean Corpuscular Volume 89.5 fL (80-100); Platelet Count 315 X10^3/uL (150-400); Red Blood Cell Count 3.78 X10^6/uL (4.0-5.2); Red Cell Distribution Width 13.3 % (11.6-14.8); White Blood Cell Count 11.7 X10^3/uL (4.5-11.0)
[2018-01-07 09:24] LABS: Add Manual Diff / Slide Review YES
[2018-01-07 09:28] LABS: Blood Urea Nitrogen 10 mg/dL (7-17); Calcium 9.4 mg/dL (8.4-10.2); Carbon Dioxide 28 mmol/L (22-32); Chloride 100 mmol/L (98-107); Estimated Glomerular Filt Rate > 60.0 mL/min (>60); Glucose 270 mg/dL (70-100); HEMOLYSIS < 15 (0-50); Lactate (Lactic Acid) 1.1 mmol/L (0.7-2.1); Potassium 4.1 mmol/L (3.4-5.1); Sodium 137 mmol/L (137-145)
[2018-01-07 09:46] LABS: Procalcitonin 0.08 ng/mL (<0.5)
--- NOTE | 2018-01-07 09:57 | PC.NURSE ---
Pts is called and updated to lab results
[2018-01-07 10:08] LABS: Neutrophils Absolute Manual 9711 /uL (3000-5900); Total Cells Counted 100
[2018-01-07 10:09] LABS: Polychromasia 1+
[2018-01-07 10:20] VITALS: BP 136/74; PULSE 84; RESP 16; O2SAT 97
[2018-01-07 11:08] VITALS: BP 131/75; PULSE 86; RESP 18; O2SAT 98
[2018-01-07 11:40] VITALS: BP 137/78; PULSE 92; RESP 14; O2SAT 95
== END 2018-01-07 11:56 | disposition home or self-care (01) ==
PROVIDERS: Emergency Provider Emergency Medicine; Family Provider Family Medicine; PCP Family Medicine
DX: N12 Tubulo-interstitial nephritis, not specified as acute or chronic (principal)
CPT/HCPCS: 36415; 80048; 81001; 83605; 84145; 85025; 87077; 87086; 96374; 99283; 99284; J1170

== ENCOUNTER 2018-02-18 15:06 | Emergency (ER) | payer OTHER, SELFPAY ==
[2018-02-18 15:13] VITALS: BP 96/64; PULSE 112; RESP 16; TEMP 36.8; O2SAT 97; BMI 19.0
[2018-02-18 15:18] VITALS: BP 96/64; PULSE 112; RESP 16; TEMP 36.8; O2SAT 97; BMI 19.0
--- NOTE | 2018-02-18 15:48 | ED.FEMALEGU ---
HPI - Female Genitourinary <YASMANI Paredes - Last Filed: 02/18/18 22:07> General Chief complaint: Urogenital-Female Stated complaint: UROSTOMY PROBLEM Time Seen by Provider: 02/18/18 15:43 Source: patient Mode of arrival: ambulatory Limitations: no limitations History of Present Illness HPI Narrative: 52-year-old female with history of urostomy for the last 20 years secondary to interstitial cystitis and is and everyday smoker here for complaint of having pain into her urostomy site over the past couple of days. She does report at urostomy area has increased in size over the past couple of weeks she denies any fevers or chills. She denies any trauma to the area. She reports that because of the swelling into the urostomy area that she has a blister to the urostomy that is causing discomfort. She is tolerating p.o. intake well. She states no nausea or vomiting. No flank pain. She denies any other discomfort or concerns or complaints at this time. Related Data Home Medications Medication Instructions Recorded Confirmed albuterol sulfate [Proventil HFA] 2 puff INH Q4HP PRN #0 01/08/13 09/26/17 hydroxyzine HCl 25 mg PO QID #0 01/08/13 09/26/17 magnesium oxide 400 mg PO BEDTIME #0 tab 01/08/13 09/26/17 duloxetine 60 mg PO QDAY #0 07/04/17 09/26/17 gabapentin [Neurontin] 600 mg PO QID #0 07/04/17 09/26/17 multivitamin [Multiple Vitamins] 1 tab PO QDAY #0 07/04/17 09/26/17 zolpidem [Ambien] 10 mg PO HS #0 07/04/17 09/26/17 Probiotic 1 tab PO BID 09/26/17 09/26/17 amitriptyline 3 tab PO BEDTIME 09/26/17 09/26/17 insulin NPH isoph U-100 human 15 units SUB-Q BEDTIME 09/26/17 09/26/17 [Humulin N NPH Insulin KwikPen] lisinopril 10 mg PO DAILY 09/26/17 09/26/17 omeprazole 20 mg PO BID 09/26/17 09/26/17 ondansetron 1 tab TRANSLINGUAL Q6H PRN 09/26/17 09/26/17 potassium chloride 20 meq PO QNOON 09/26/17 09/26/17 rivaroxaban [Xarelto] 20 mg PO DAILY 09/26/17 09/26/17 vitamin E 1 cap PO DAILY 09/26/17 09/26/17 Previous Rx's Medication Instructions Recorded hydrocodone-acetaminophen 1 tab PO Q6H PRN #5 tab 09/26/17 lorazepam 1 mg PO BID-TID PRN #7 tab 09/26/17 oxycodone-acetaminophen 1 tab PO Q4-6H PRN #15 tab 02/18/18 Allergies Allergy/AdvReac Type Severity Reaction Status Date / Time mupirocin Allergy Unknown Verified 02/18/18 15:21 naproxen Allergy Unknown Verified 02/18/18 15:21 Penicillins Allergy Unknown SINCE Verified 02/18/18 15:21 CHILDHOOD droperidol AdvReac Unknown Verified 02/18/18 15:21 fenofibrate [FENOFIBRATE] AdvReac Unknown Verified 02/18/18 15:21 ibuprofen AdvReac Unknown NAUSEA Verified 02/18/18 15:21 metformin [METFORMIN] AdvReac Unknown Verified 02/18/18 15:21 metoclopramide AdvReac Unknown BECAME Verified 02/18/18 15:21 JITTERY AND ANXIOUS nitrofurantoin AdvReac Unknown NAUSEA Verified 02/18/18 15:21 Review of Systems <YASMANI Paredes - Last Filed: 02/18/18 22:07> Review of Systems All systems reviewed & are unremarkable except as noted in HPI and below Constitutional Denies chills, Denies fever(s), Denies lethargy and Denies weakness Eyes Denies change in vision, Denies eye discharge, Denies irritation and Denies loss of vision ENT Ears, Nose, Mouth, and Throat: Denies change in voice, Denies neck pain and Denies sore throat Cardiovascular Denies chest pain, Denies irregular heart rhythm, Denies lightheadedness, Denies palpitations, Denies dyspnea, Denies dyspnea on exertion and Denies orthopnea Respiratory Denies cough, Denies dyspnea, Denies dyspnea on exertion and Denies wheezing Gastrointestinal Gastrointestinal: Denies abdominal pain, Denies change in bowel habits, Denies diarrhea, Denies nausea and Denies vomiting Genitourinary Comments: Urostomy discomfort Musculoskeletal Denies neck pain Integumentary/Breasts Denies pruritus, Denies erythema, Denies rash and Denies wounds Neurologic Denies confusion, Denies loss of vision and Denies weakness Psychiatric Denies anxiety, Denies confusion, Denies depression, Denies homicidal ideation and Denies suicidal ideation Endocrine Denies palpitations Hematologic/Lymphatic Denies easy bruising Allergic/Immunologic Denies wheezing Exam <YASMANI Paredes - Last Filed: 02/18/18 22:07> Initial Vital Signs Initial Vital Signs: Vital Signs Temperature 98.3 F 02/18/18 15:13 Pulse Rate 112 H 02/18/18 15:13 Respiratory Rate 16 02/18/18 15:13 Blood Pressure 96/64 02/18/18 15:13 Pulse Oximetry 97 02/18/18 15:13 Const General: cooperative and well developed Nutritional Appearance: well nourished Orientation: alert, awake, oriented x3 and not confused HENMT Mouth: oral mucosae normal and moist mucous membranes Eyes Conjunctivae: conjunctivae normal Sclera: sclerae normal Pupils: PERRL EOM: EOM intact bilaterally Resp Effort & Inspection: normal respiratory effort, able to speak in complete sentences, no respiratory distress and no use of accessory muscles Auscultation: clear to auscultation bilaterally, no rales, no rhonchi and no wheezes Cardio Rate: regular rate Rhythm: regular rhythm Heart Sounds: no click, no gallops, no murmurs and no rubs Pulses: normal peripheral pulses GI Inspection: non-distended Palpation: soft, no hepatosplenomegaly, No guarding, No pulsatile mass and No tender Auscultation: normal bowel sounds General: No CVA tenderness Other: Urostomy stoma appears pink and healthy. No signs of trauma. No signs of infection. Urostomy bag with clear yellow urine no surrounding tenderness tenderness to the stoma on palpation <Brenton Drew DO - Last Filed: 02/19/18 07:07> Initial Vital Signs Initial Vital Signs: Vital Signs Temperature 98.3 F 02/18/18 15:13 Pulse Rate 112 H 02/18/18 15:13 Respiratory Rate 16 02/18/18 15:13 Blood Pressure 96/64 02/18/18 15:13 Pulse Oximetry 97 02/18/18 15:13 Course <YASMANI Paredes - Last Filed: 02/18/18 22:07> Orders Ordered: Discontinued Medications Oxycodone/Acetaminophen (Percocet 5/325) 2 tab PO NOW ONE Stop: 02/18/18 17:05 Last Admin: 02/18/18 17:13 Dose: 2 tab Vital Signs - 8 hr 02/18/18 15:13 02/18/18 15:18 02/18/18 16:58 Temperature 98.3 F 98.3 F Pulse Rate 112 H 112 H 102 H Respiratory Rate 16 16 18 Blood Pressure 96/64 96/64 Blood Pressure [Left Arm] 143/73 H Pulse Oximetry 97 97 97 02/18/18 18:10 Temperature Pulse Rate 101 H Respiratory Rate 17 Blood Pressure Blood Pressure [Left Arm] 125/81 Pulse Oximetry 96 <Brenton Drew DO - Last Filed: 02/19/18 07:07> Orders Ordered: Discontinued Medications Oxycodone/Acetaminophen (Percocet 5/325) 2 tab PO NOW ONE Stop: 02/18/18 17:05 Last Admin: 02/18/18 17:13 Dose: 2 tab Vital Signs - 8 hr 02/18/18 15:13 02/18/18 15:18 02/18/18 16:58 Temperature 98.3 F 98.3 F Pulse Rate 112 H 112 H 102 H Respiratory Rate 16 16 18 Blood Pressure 96/64 96/64 Blood Pressure [Left Arm] 143/73 H Pulse Oximetry 97 97 97 02/18/18 18:10 Temperature Pulse Rate 101 H Respiratory Rate 17 Blood Pressure Blood Pressure [Left Arm] 125/81 Pulse Oximetry 96 MDM - Female Genitourinary <YASMANI Paredes - Last Filed: 02/18/18 22:07> Lab Data Lab Results 02/18/18 Range/Units 15:45 Urine RBC 5-10/hpf H (0-5/HPF) Urine WBC 5-10/hpf H (0-5/HPF) Amorphous Sediment 1+ Urine Bacteria Occasional (0-1) D (None) Urine Mucus 1+ H (Negative) Ur Culture Indicated? Specimen cultured Micro UA Comment Not Reportable Urine Dip Bedside Urine Glucose 1000 mg/dl Bedside Urine Bilirubin - Negative Bedside Urine Ketone - Negative Urine Specific [place] 1.015 Bedside Urine Occult Blood ++ Bedside Urine pH 6.5 Bedside Urine Protein + 30 Bedside Urine Urobilinogen - Negative Bedside Urine Nitrite - Negative Bedside Urine Leukocytes +/- 15 Esterase MDM Narrative Medical decision making narrative: Urine dip was obtained and shows positive WBCs and positive RBCs with some leukoesterase. Discussed case with Urology at Dr. Kovacs who recommends culturing the urine however not treating it. She states that there does not seem to be anything emergent to do at this timeframe. She recommended treating for pain and then have follow-up with Urology. Patient call Urology office Tuesday and follow up with the doctor Cezar who is there urostomy specialist for re-evaluation. She is prescribed Percocet for discomfort. For any worsening symptoms return to the emergency room. Urine culture is ordered and pending. <Brenton Drew, - Last Filed: 02/19/18 07:07> Lab Data Lab Results 02/18/18 Range/Units 15:45 Urine RBC 5-10/hpf H (0-5/HPF) Urine WBC 5-10/hpf H (0-5/HPF) Amorphous Sediment 1+ Urine Bacteria Occasional (0-1) D (None) Urine Mucus 1+ H (Negative) Ur Culture Indicated? Specimen cultured Micro UA Comment Not Reportable Urine Dip Bedside Urine Glucose 1000 mg/dl Bedside Urine Bilirubin - Negative Bedside Urine Ketone - Negative Urine Specific [place] 1.015 Bedside Urine Occult Blood ++ Bedside Urine pH 6.5 Bedside Urine Protein + 30 Bedside Urine Urobilinogen - Negative Bedside Urine Nitrite - Negative Bedside Urine Leukocytes +/- 15 Esterase Discharge Plan Departure Patient Disposition: Home Clinical Impression: Complication of urostomy Discharge Date/Time: 02/18/18 18:16 Interventions: ED Discharge Assessment Last Done: 02/18/18 18:15 Activity Restrictions/Additional Instructions: Discussed case with Urology at [facility] will follow up with you next week. Call the office Tuesday morning to schedule follow-up appointment. They recommended that she see Dr. Robb as this is their urology specialist. Culture on the urine is pending: Urine sensitivity and culture results should be back prior to your visit. Use [id number] Tylenol as needed for any discomfort. Small amount of Percocet is prescribed for breakthrough pain. For any worsening symptoms return to the emergency room. Prescriptions: New oxycodone-acetaminophen 5-325 mg tablet 1 tab PO Q4-6H PRN (Reason: pain) Qty: 15 RF: 0 No Action hydroxyzine HCl 25 MG tablet 25 mg PO QID Qty: 0 RF: 0 magnesium oxide 400 MG tablet 400 mg PO BEDTIME Qty: 0 RF: 0 albuterol sulfate [Proventil HFA] 90 MCG/PUFF HFA aerosol inhaler 2 puff INH Q4HP PRN (Reason: Shortness Of Breath) Qty: 0 RF: 0 duloxetine 60 MG capsule,delayed release(DR/EC) 60 mg PO QDAY Qty: 0 RF: 0 gabapentin [Neurontin] 300 MG capsule 600 mg PO QID Qty: 0 RF: 0 multivitamin [Multiple Vitamins] 1 EACH tablet 1 tab PO QDAY Qty: 0 RF: 0 zolpidem [Ambien] 10 MG tablet 10 mg PO HS Qty: 0 RF: 0 amitriptyline 50 mg tablet 3 tab PO BEDTIME RF: 0 potassium chloride 20 mEq tablet,ER particles/crystals 20 meq PO QNOON RF: 0 lisinopril 10 mg tablet 10 mg PO DAILY RF: 0 omeprazole 20 mg capsule,delayed release(DR/EC) 20 mg PO BID RF: 0 ondansetron 4 mg tablet,disintegrating 1 tab Translingual Q6H PRN (Reason: Nausea) RF: 0 insulin NPH isoph U-100 human [Humulin N NPH Insulin KwikPen] 100 unit/mL (3 mL) insulin pen 15 units Sub-Q BEDTIME RF: 0 rivaroxaban [Xarelto] 20 mg tablet 20 mg PO DAILY RF: 0 Probiotic 1 tab PO BID RF: 0 vitamin E 1 cap PO DAILY RF: 0 hydrocodone-acetaminophen 5-325 mg tablet 1 tab PO Q6H PRN (Reason: pain) Qty: 5 RF: 0 lorazepam 1 mg tablet 1 mg PO BID-TID PRN (Reason: anxiety) Qty: 7 RF: 0 Referrals: [facility] [Provider Group] Fadi Ko DO [Primary Care Provider] - <Brenton Drew DO - Last Filed: 02/19/18 07:07> Cosign ED Attending Vinicio Attestation: I was available for consultation during this patient's emergency department encounter
[2018-02-18 16:31] LABS: Bacteria Urine Occasional (0-1); RBC Urine 5-10/HPF (0-5/HPF); WBC Urine 5-10/HPF (0-5/HPF)
[2018-02-18 16:32] LABS: Amorphous Sediment Urine 1+; Culture Indicated Urine Specimen Cultured; Mucus Urine 1+ (Negative)
[2018-02-18 16:58] VITALS: BP 143/73; PULSE 102; RESP 18; O2SAT 97
[2018-02-18] MEDS: OXYCODONE/ACETAMINOPHEN 5/325 TABLET 2 TAB PO (17:13)
[2018-02-18 18:10] VITALS: BP 125/81; PULSE 101; RESP 17; O2SAT 96
== END 2018-02-18 18:16 | disposition home or self-care (01) ==
PROVIDERS: Emergency Provider Nurse Practitioner Family; Family Provider Family Medicine; PCP Family Medicine
DX: N99.528 Other complication of incontinent external stoma of urinary tract (principal)
CPT/HCPCS: 81003; 81015; 87077; 87086; 87186; 99282; 99283

== ENCOUNTER → 2018-03-10 13:06 | Outpatient (CLI) | payer OTHER, SELFPAY ==
--- NOTE | 2018-03-10 | DI.CT.S_ITS ---
PROCEDURE: CT ABDOMEN WO/W CON INDICATIONS: RENAL MASS TECHNIQUE: Optional 5 mm thick noncontrast images acquired from the diaphragm to the iliac crests. After the administration of intravenous contrast, 5 mm thick images again acquired from the diaphragm to the iliac crests in the arterial and urographic phases. 5 mm thick coronal and sagittal reformats were then acquired. For radiation dose reduction, the following was used: automated exposure control, adjustment of mA and/or kV according to patient size. COMPARISON: [facility], RG, US RENAL, 01/04/2018, 0:32. [facility], CT, CT ANGIO CHEST PE, 12/22/2017, 11:28. Outside Film, CT, CT ABDOMEN PELVIS WITH CONTRAST, 03/03/2018, 13:50. [facility], RG, CT ABDOMEN/PELVIS WITH CONTRAST, 03/03/2018, 13:50. FINDINGS: Image quality: Excellent. Lung bases: Lung bases are clear. Heart size is normal. Genitourinary: Bilateral kidneys are normal in size. Faint 2 mm nonobstructing calculi are seen scattered in the mid to lower pole of left kidney. There is prominence of bilateral renal collecting systems and bilateral ureters. No obstructing renal stone or ureteral stone is seen. There is no perinephric fat stranding. Normal bilateral renal parenchymal enhancement is seen. No enhancing renal lesion is noted. Normal contrast excretion is seen in bilateral kidneys with normal contrast filling of bilateral renal pelvis and bilateral ureters. No filling defect is seen. Other solid organs: Liver is normal in size and enhancement. Gallbladder is within normal limits. Biliary system is non dilated. Pancreas enhances normally. Spleen is normal in size and enhancement. No adrenal nodules. Peritoneum and bowel: Unenhanced bowel loops are normal in wall thickness and caliber. No free fluid or air. Patient is status post prior cystectomy with right ileal conduit and a right-sided ileostomy construction. Nodes and vessels: No retroperitoneal or mesenteric adenopathy by size criteria. Aorta and inferior vena cava are normal in caliber. Bones: No suspicious bony lesions. No vertebral body compression fractures. Miscellaneous: No ventral hernias. IMPRESSION: 1. No discrete renal mass is identified. 2. Tiny nonobstructing left renal calculi. Prominence of bilateral renal collecting systems and bilateral ureters with no intraluminal filling defects seen. No obstructing renal stone hydronephrosis. Finding likely represent reflex pathology secondary to ileal conduit construction and is not significantly changed from recent outside CT of abdomen and pelvis study. 3. No acute inflammatory process is seen within the abdomen. Dictated by: Jesu Meredith M.D. on 03/10/2018 at 17:53 Approved by: Jesu Meredith M.D. on 03/10/2018 at 19:43
== END ==
PROVIDERS: Family Provider Family Medicine; PCP Family Medicine; Visit Provider Urology
DX: N28.89 Other specified disorders of kidney and ureter (principal); N20.0 Calculus of kidney
CPT/HCPCS: 74170; Q9967

== ENCOUNTER 2018-04-02 11:42 | Emergency (ER) | payer OTHER, SELFPAY ==
[2018-04-02 11:46] VITALS: BP 144/87; PULSE 108; RESP 22; TEMP 36.6; O2SAT 100; BMI 18.6
--- NOTE | 2018-04-02 12:58 | ED.ABDPAIN ---
HPI - Abdominal Pain <YASMANI Paredes - Last Filed: 04/02/18 22:16> General Chief Complaint: Abdominal Pain Stated Complaint: abd pain Time Seen by Provider: 04/02/18 12:53 Source: patient Mode of arrival: ambulatory Limitations: no limitations History of Present Illness HPI narrative: 52-year-old female with history of interstitial cystitis that has a bypass urostomy and is an everyday smoker here for complaint of pain into her urostomy area. She reports she has had pain into her urostomy area over the past 2 months.. She denies any trauma to the area. She has been seen by Urology at [facility] and is referred to surgery for evaluation whether not urostomy needs to be surgically repaired. She was admitted last week for urosepsis she has been released and is currently taking Macrobid. For her symptoms. She has not seen surgery yet for evaluation. She denies any fevers. She reports that she has had increased pain today. She denies any other concerns or complaints. MD complaint: abdominal pain Related Data Home Medications Medication Instructions Recorded Confirmed albuterol sulfate [Proventil HFA] 2 puff INH Q4HP PRN #0 01/08/13 09/26/17 hydroxyzine HCl 25 mg PO QID #0 01/08/13 09/26/17 magnesium oxide 400 mg PO BEDTIME #0 tab 01/08/13 09/26/17 duloxetine 60 mg PO QDAY #0 07/04/17 09/26/17 gabapentin [Neurontin] 600 mg PO QID #0 07/04/17 09/26/17 multivitamin [Multiple Vitamins] 1 tab PO QDAY #0 07/04/17 09/26/17 zolpidem [Ambien] 10 mg PO HS #0 07/04/17 09/26/17 Probiotic 1 tab PO BID 09/26/17 09/26/17 amitriptyline 3 tab PO BEDTIME 09/26/17 09/26/17 insulin NPH isoph U-100 human 15 units SUB-Q BEDTIME 09/26/17 09/26/17 [Humulin N NPH Insulin KwikPen] lisinopril 10 mg PO DAILY 09/26/17 09/26/17 omeprazole 20 mg PO BID 09/26/17 09/26/17 ondansetron 1 tab TRANSLINGUAL Q6H PRN 09/26/17 09/26/17 potassium chloride 20 meq PO QNOON 09/26/17 09/26/17 rivaroxaban [Xarelto] 20 mg PO DAILY 09/26/17 09/26/17 vitamin E 1 cap PO DAILY 09/26/17 09/26/17 Previous Rx's Medication Instructions Recorded hydrocodone-acetaminophen 1 tab PO Q6H PRN #5 tab 09/26/17 lorazepam 1 mg PO BID-TID PRN #7 tab 09/26/17 oxycodone-acetaminophen 1 tab PO Q4-6H PRN #15 tab 02/18/18 hydrocodone-acetaminophen [[place]] 1 tab PO Q4-6H PRN #6 tab 04/02/18 Allergies Allergy/AdvReac Type Severity Reaction Status Date / Time mupirocin Allergy Unknown Verified 02/18/18 15:21 naproxen Allergy Unknown Verified 02/18/18 15:21 Penicillins Allergy Unknown SINCE Verified 02/18/18 15:21 CHILDHOOD droperidol AdvReac Unknown Verified 02/18/18 15:21 fenofibrate [FENOFIBRATE] AdvReac Unknown Verified 02/18/18 15:21 ibuprofen AdvReac Unknown NAUSEA Verified 02/18/18 15:21 metformin [METFORMIN] AdvReac Unknown Verified 02/18/18 15:21 metoclopramide AdvReac Unknown BECAME Verified 02/18/18 15:21 JITTERY AND ANXIOUS nitrofurantoin AdvReac Unknown NAUSEA Verified 02/18/18 15:21 Review of Systems <YASMANI Paredes - Last Filed: 04/02/18 22:16> Constitutional Denies chills, Denies fever(s), Denies lethargy and Denies weakness Eyes Denies change in vision, Denies eye discharge, Denies irritation and Denies loss of vision ENT Ears, Nose, Mouth, and Throat: Denies change in voice, Denies neck pain and Denies sore throat Cardiovascular Denies chest pain, Denies irregular heart rhythm, Denies lightheadedness, Denies palpitations, Denies dyspnea, Denies dyspnea on exertion and Denies orthopnea Respiratory Denies cough, Denies dyspnea, Denies dyspnea on exertion and Denies wheezing Gastrointestinal Gastrointestinal: Denies abdominal pain, Denies change in bowel habits, Denies diarrhea, Denies nausea and Denies vomiting Comments: Pain to area of urostomy site Genitourinary Denies hematuria, Denies flank pain, Denies urinary incontinence and Denies urinary urgency Musculoskeletal Denies neck pain Integumentary/Breasts Denies pruritus, Denies erythema, Denies rash and Denies wounds Neurologic Denies confusion, Denies loss of vision and Denies weakness Psychiatric Denies anxiety, Denies confusion, Denies depression, Denies homicidal ideation and Denies suicidal ideation Endocrine Denies palpitations Hematologic/Lymphatic Denies easy bruising Allergic/Immunologic Denies wheezing Exam <YASMANI Paredes - Last Filed: 04/02/18 22:16> Initial Vital Signs Initial Vital Signs: Vital Signs Temperature 97.8 F 04/02/18 11:46 Pulse Rate 108 H 04/02/18 11:46 Respiratory Rate 22 04/02/18 11:46 Blood Pressure 144/87 H 04/02/18 11:46 Pulse Oximetry 100 04/02/18 11:46 Const General: cooperative and well developed Nutritional Appearance: well nourished Orientation: alert, awake, oriented x3 and not confused [facility] Mouth: oral mucosae normal and moist mucous membranes Eyes Conjunctivae: conjunctivae normal Sclera: sclerae normal Pupils: PERRL EOM: EOM intact bilaterally Resp Effort & Inspection: normal respiratory effort, able to speak in complete sentences, no respiratory distress and no use of accessory muscles Auscultation: clear to auscultation bilaterally, no rales, no rhonchi and no wheezes Cardio Rate: regular rate Rhythm: regular rhythm Heart Sounds: no click, no gallops, no murmurs and no rubs Pulses: normal peripheral pulses GI Inspection: non-distended Palpation: soft, no hepatosplenomegaly, No guarding, No pulsatile mass and No tender Auscultation: normal bowel sounds Other: Urostomy site with no surrounding erythema. No fluctuance no induration. There is some firmness to the surrounding area consistent with scar tissue. Stomy itself is pink and appears healthy General: No CVA tenderness Neuro General: alert, oriented x3, gait normal and no focal motor deficits Speech: speech normal Extrem General: full ROM, no clubbing, cyanosis or edema, no pedal edema and no calf tenderness <Carole Mariee MD - Last Filed: 04/03/18 13:58> Initial Vital Signs Initial Vital Signs: Vital Signs Temperature 97.8 F 04/02/18 11:46 Pulse Rate 108 H 04/02/18 11:46 Respiratory Rate 22 04/02/18 11:46 Blood Pressure 144/87 H 04/02/18 11:46 Pulse Oximetry 100 04/02/18 11:46 Course <YASMANI Paredes - Last Filed: 04/02/18 22:16> Orders Ordered: Sodium Chloride (Normal Saline 0.9%) 1,000 mls @ 150 mls/hr IV CONT ISSA Last Infusion: 04/02/18 18:33 Dose: 0 mls/hr Admin: 04/02/18 15:54 Dose: 150 mls/hr Discontinued Medications Hydrocodone Bitart/Acetaminophen (Vicodin Prepack) 1 bottle MISC SEEINSTR ONE Stop: 04/02/18 19:52 Last Admin: 04/02/18 20:00 Dose: 1 bottle Hydromorphone HCl (Dilaudid) 1 mg IV NOW ONE Stop: 04/02/18 15:11 Last Admin: 04/02/18 15:53 Dose: 1 mg Hydromorphone HCl (Dilaudid) 0.5 mg IV NOW ONE Stop: 04/02/18 17:20 Last Admin: 04/02/18 17:50 Dose: 0.5 mg Sodium Chloride (Normal Saline 0.9%) 500 mls @ 1,000 mls/hr IV BOLUS ONE Stop: 04/02/18 17:48 Last Admin: 04/02/18 19:12 Dose: Ondansetron HCl (Zofran) 4 mg IV NOW ONE Stop: 04/02/18 15:11 Last Admin: 04/02/18 15:53 Dose: 4 mg Vital Signs - 8 hr 04/02/18 14:35 04/02/18 16:30 04/02/18 18:00 Pulse Rate 90 88 85 Respiratory Rate 15 14 Blood Pressure [Right Arm] 132/78 119/77 136/78 Pulse Oximetry 100 97 96 04/02/18 19:56 04/02/18 19:57 Pulse Rate 81 83 Respiratory Rate 17 19 Blood Pressure [Right Arm] 140/75 140/75 Pulse Oximetry <Carole Mariee MD - Last Filed: 04/03/18 13:58> Orders Ordered: Sodium Chloride (Normal Saline 0.9%) 1,000 mls @ 150 mls/hr IV CONT ISSA Last Infusion: 04/02/18 18:33 Dose: 0 mls/hr Admin: 04/02/18 15:54 Dose: 150 mls/hr Discontinued Medications Hydrocodone Bitart/Acetaminophen (Vicodin Prepack) 1 bottle MISC SEEINSTR ONE Stop: 04/02/18 19:52 Last Admin: 04/02/18 20:00 Dose: 1 bottle Hydromorphone HCl (Dilaudid) 1 mg IV NOW ONE Stop: 04/02/18 15:11 Last Admin: 04/02/18 15:53 Dose: 1 mg Hydromorphone HCl (Dilaudid) 0.5 mg IV NOW ONE Stop: 04/02/18 17:20 Last Admin: 04/02/18 17:50 Dose: 0.5 mg Sodium Chloride (Normal Saline 0.9%) 500 mls @ 1,000 mls/hr IV BOLUS ONE Stop: 04/02/18 17:48 Last Admin: 04/02/18 19:12 Dose: Ondansetron HCl (Zofran) 4 mg IV NOW ONE Stop: 04/02/18 15:11 Last Admin: 04/02/18 15:53 Dose: 4 mg Vital Signs - 8 hr 04/02/18 14:35 04/02/18 16:30 04/02/18 18:00 Pulse Rate 90 88 85 Respiratory Rate 15 14 Blood Pressure [Right Arm] 132/78 119/77 136/78 Pulse Oximetry 100 97 96 04/02/18 19:56 04/02/18 19:57 Pulse Rate 81 83 Respiratory Rate 17 19 Blood Pressure [Right Arm] 140/75 140/75 Pulse Oximetry MDM - Abdominal Pain <YASMANI Paredes - Last Filed: 04/02/18 22:16> Lab Data Result diagrams: 04/02/18 15:30 04/02/18 15:30 Lab Results 04/02/18 04/02/18 04/02/18 Range/Units 15:30 15:30 15:30 WBC 14.3 H (4.5-11.0) X10^3/uL RBC 3.85 L (4.0-5.2) X10^6/uL Hgb 11.9 L (12.0-16.0) g/dL Hct 35.4 L (36-46) % MCV 92.0 (80-100) fL MCH 30.8 (26-34) PG MCHC 33.5 (30-36) % RDW 14.5 (11.6-14.8) % Plt Count 464 H (150-400) X10^3/uL Neut % (Auto) 62.7 (50-75) % Lymph % (Auto) 32.7 (25-40) % [place] % (Auto) 2.8 L (3-14) % Eos % (Auto) 0.5 L (2-4) % Baso % (Auto) 1.3 (0-2) % Neut # (Auto) 9000 H (9452-1919) /uL Sodium 137 (137-145) mmol/L Potassium 4.7 (3.4-5.1) mmol/L Chloride 104 (98-107) mmol/L Carbon Dioxide 24 (22-32) mmol/L BUN 13 (7-17) mg/dL Creatinine 0.50 L (0.52-1.04) mg/dL Estimated GFR > 60.0 (>60) mL/min BUN/Creatinine Ratio 26.0 H (6-22) Glucose 187 H (70-100) mg/dL Lactate (0.7-2.1) mmol/L Calcium 9.7 (8.4-10.2) mg/dL Total Bilirubin 0.4 (0.2-1.3) mg/dL AST 26 (14-36) IU/L ALT 18 (9-52) IU/L Alkaline Phosphatase 87 (38-126) U/L Total Protein 7.6 (6.3-8.2) g/dL Albumin 4.2 (3.5-5.0) g/dL Globulin 3.4 (1.7-4.1) g/dL Albumin/Globulin Ratio 1.2 (1.0-2.8) Lipase < 10 L (23-300) U/L Procalcitonin < 0.05 (<0.5) ng/mL Urine Color Urine Appearance Urine pH (4.5-8.0) Ur Specific [place] (1.000-1.035) Urine Protein (Negative) Urine Glucose (UA) (Negative) g/dL Urine Ketones (NEGATIVE) Urine Occult Blood (Negative) Urine Nitrate (Negative) Urine Bilirubin (NEGATIVE) Urine Urobilinogen (0.2) E.U./dL Ur Leukocyte Esterase (NEGATIVE) Urine RBC (0-5/HPF) Urine WBC (0-5/HPF) Ur Squamous Epith Cells Amorphous Sediment Urine Bacteria (None) Urine Mucus (Negative) Ur Culture Indicated? Micro UA Comment 04/02/18 04/02/18 04/02/18 Range/Units 15:30 15:55 18:40 WBC (4.5-11.0) X10^3/uL RBC (4.0-5.2) X10^6/uL Hgb (12.0-16.0) g/dL Hct (36-46) % MCV (80-100) fL MCH (26-34) PG MCHC (30-36) % RDW (11.6-14.8) % Plt Count (150-400) X10^3/uL Neut % (Auto) (50-75) % Lymph % (Auto) (25-40) % [place] % (Auto) (3-14) % Eos % (Auto) (2-4) % Baso % (Auto) (0-2) % Neut # (Auto) (9195-8915) /uL Sodium (137-145) mmol/L Potassium (3.4-5.1) mmol/L Chloride (98-107) mmol/L Carbon Dioxide (22-32) mmol/L BUN (7-17) mg/dL Creatinine (0.52-1.04) mg/dL Estimated GFR (>60) mL/min BUN/Creatinine Ratio (6-22) Glucose (70-100) mg/dL Lactate 2.5 H 1.3 (0.7-2.1) mmol/L Calcium (8.4-10.2) mg/dL Total Bilirubin (0.2-1.3) mg/dL AST (14-36) IU/L ALT (9-52) IU/L Alkaline Phosphatase (38-126) U/L Total Protein (6.3-8.2) g/dL Albumin (3.5-5.0) g/dL Globulin (1.7-4.1) g/dL Albumin/Globulin Ratio (1.0-2.8) Lipase (23-300) U/L Procalcitonin (<0.5) ng/mL Urine Color Yellow Urine Appearance Clear Urine pH 6.5 (4.5-8.0) Ur Specific [place] 1.010 (1.000-1.035) Urine Protein Negative (Negative) Urine Glucose (UA) Negative (Negative) g/dL Urine Ketones Negative (NEGATIVE) Urine Occult Blood Negative (Negative) Urine Nitrate Positive H (Negative) Urine Bilirubin Negative (NEGATIVE) Urine Urobilinogen 0.2 (0.2) E.U./dL Ur Leukocyte Esterase Trace H (NEGATIVE) Urine RBC None seen (0-5/HPF) Urine WBC 0-1/hpf (0-5/HPF) Ur Squamous Epith Cells 0-1 /hpf Amorphous Sediment 2+ Urine Bacteria Few (2-10) H (None) Urine Mucus 1+ H (Negative) Ur Culture Indicated? Specimen cultured Micro UA Comment Not Reportable Imaging Data CT scan - abdomen: Radiologist's impression: View Report History [address] [address] [address] Scan Report Signed Patient: Melvi Gibbs MR#: [id number] : 1965 Acct:[id number] Age/Sex: 52 / F Date of Service: 04/02/18 Loc: ED Accession Number: [id number] Procedure: CT abdomen pelvis w con Ordering Provider: Jose Antonio Medeiros PROCEDURE: CT ABDOMEN PELVIS W CON INDICATIONS: Reports worsening pain and swelling into urostomy site TECHNIQUE: After the administration of oral and intravenous contrast, 5 mm thick sections acquired from the diaphragms to the symphysis. 5 mm thick coronal and sagittal reformats were performed. For radiation dose reduction, the following was used: automated exposure control, adjustment of mA and/or kV according to patient size. COMPARISON: [facility], CT, CT ABDOMEN PELVIS WITH CONTRAST, 03/27/2018, 12:59. FINDINGS: Image quality: Excellent. ABDOMEN: Lung bases: There is mild dependent atelectasis bilaterally. Patchy indistinct ground glass opacities in the lung bases are slightly decreased in prominence from the prior study. Heart size is normal. Solid organs: No focal hepatic lesions identified. There are small dependent filling defects in the region of the gallbladder neck compatible small gallstones. No gallbladder wall thickening or pericholecystic fluid. Biliary system is non-dilated. There are multiple small calcifications are redemonstrated in the pancreas consistent with sequela of chronic pancreatitis. No pancreatic duct dilatation. Spleen is normal in size and enhancement. No adrenal nodules. There is persistent onrg-je-uvamvpij hydroureteronephrosis bilaterally extending to the ileal conduit in the right lower quadrant. There is bowel wall thickening along the course of the ileal conduit suggestive of an infectious or inflammatory process. No increased distention compared to the prior study to suggest obstruction. The kidneys demonstrate symmetric enhancement bilaterally without a definite striated nephrogram. No perinephric fluid collections or new fat stranding. Peritoneum and bowel: Stomach, small bowel, and colon loops are normal in caliber and wall thickness. There is moderate colonic stool distention suggestive of constipation. No free fluid or air. Nodes and vessels: No retroperitoneal or mesenteric adenopathy. Aorta and inferior vena cava are normal in caliber. Miscellaneous: No ventral hernias. PELVIS: Genitourinary: The surgery changes are redemonstrated status post prior cystectomy. Multiple surgical clips are demonstrated in the pelvis. No new suspicious masses. Miscellaneous: No inguinal hernias or adenopathy. Bones: No suspicious bony lesions. No vertebral body compression fractures. IMPRESSION: 1. Postsurgical changes status post cystectomy with a right lower quadrant ileal conduit redemonstrated. 2. Persistent bilateral nitf-qh-kyfyhcnv hydroureteronephrosis extending to the ileal conduit. No definite increased distention to suggest new obstruction. 3. Mild wall thickening demonstrated along the ileal conduit may reflect a mild infectious or inflammatory process. Dictated by: Darin Carrasquillo M.D. on 04/02/2018 at 17:13 Approved by: Darin Carrasquillo M.D. on 04/02/2018 at 17:19 [facility] Narrative Medical decision making narrative: cbc was obtained and shows elevated white count of 14.5 kg. This is mildly elevated compared to her normal WBC as it is frequently mildly elevated. Lipase was unremarkable. Lactate was elevated at 2.5. After 1 L of normal saline was given intravenously her lactate reduced to 1.5. Urinalysis was negative for urinary tract infection. CT of the abdomen was obtained and shows possible mild inflammatory or infectious changes to the area of the ileal conduit of the urostomy. Discussed case with surgery who recommends follow-up with Urology and surgery this week. Does not feel that anything emergent needs to be done at this time. Will have her continue taking the Macrobid as prescribed. She is prescribed a small amount of [place] to help with pain. For any worsening symptoms return emergency room. <Carole Mariee MD - Last Filed: 04/03/18 13:58> Lab Data Lab Results 04/02/18 04/02/18 04/02/18 Range/Units 15:30 15:30 15:30 WBC 14.3 H (4.5-11.0) X10^3/uL RBC 3.85 L (4.0-5.2) X10^6/uL Hgb 11.9 L (12.0-16.0) g/dL Hct 35.4 L (36-46) % MCV 92.0 (80-100) fL MCH 30.8 (26-34) PG MCHC 33.5 (30-36) % RDW 14.5 (11.6-14.8) % Plt Count 464 H (150-400) X10^3/uL Neut % (Auto) 62.7 (50-75) % Lymph % (Auto) 32.7 (25-40) % [place] % (Auto) 2.8 L (3-14) % Eos % (Auto) 0.5 L (2-4) % Baso % (Auto) 1.3 (0-2) % Neut # (Auto) 9000 H (2755-3165) /uL Sodium 137 (137-145) mmol/L Potassium 4.7 (3.4-5.1) mmol/L Chloride 104 (98-107) mmol/L Carbon Dioxide 24 (22-32) mmol/L BUN 13 (7-17) mg/dL Creatinine 0.50 L (0.52-1.04) mg/dL Estimated GFR > 60.0 (>60) mL/min BUN/Creatinine Ratio 26.0 H (6-22) Glucose 187 H (70-100) mg/dL Lactate (0.7-2.1) mmol/L Calcium 9.7 (8.4-10.2) mg/dL Total Bilirubin 0.4 (0.2-1.3) mg/dL AST 26 (14-36) IU/L ALT 18 (9-52) IU/L Alkaline Phosphatase 87 (38-126) U/L Total Protein 7.6 (6.3-8.2) g/dL Albumin 4.2 (3.5-5.0) g/dL Globulin 3.4 (1.7-4.1) g/dL Albumin/Globulin Ratio 1.2 (1.0-2.8) Lipase < 10 L (23-300) U/L Procalcitonin < 0.05 (<0.5) ng/mL Urine Color Urine Appearance Urine pH (4.5-8.0) Ur Specific [place] (1.000-1.035) Urine Protein (Negative) Urine Glucose (UA) (Negative) g/dL Urine Ketones (NEGATIVE) Urine Occult Blood (Negative) Urine Nitrate (Negative) Urine Bilirubin (NEGATIVE) Urine Urobilinogen (0.2) E.U./dL Ur Leukocyte Esterase (NEGATIVE) Urine RBC (0-5/HPF) Urine WBC (0-5/HPF) Ur Squamous Epith Cells Amorphous Sediment Urine Bacteria (None) Urine Mucus (Negative) Ur Culture Indicated? Micro UA Comment 04/02/18 04/02/18 04/02/18 Range/Units 15:30 15:55 18:40 WBC (4.5-11.0) X10^3/uL RBC (4.0-5.2) X10^6/uL Hgb (12.0-16.0) g/dL Hct (36-46) % MCV (80-100) fL MCH (26-34) PG MCHC (30-36) % RDW (11.6-14.8) % Plt Count (150-400) X10^3/uL Neut % (Auto) (50-75) % Lymph % (Auto) (25-40) % [place] % (Auto) (3-14) % Eos % (Auto) (2-4) % Baso % (Auto) (0-2) % Neut # (Auto) (9884-3707) /uL Sodium (137-145) mmol/L Potassium (3.4-5.1) mmol/L Chloride (98-107) mmol/L Carbon Dioxide (22-32) mmol/L BUN (7-17) mg/dL Creatinine (0.52-1.04) mg/dL Estimated GFR (>60) mL/min BUN/Creatinine Ratio (6-22) Glucose (70-100) mg/dL Lactate 2.5 H 1.3 (0.7-2.1) mmol/L Calcium (8.4-10.2) mg/dL Total Bilirubin (0.2-1.3) mg/dL AST (14-36) IU/L ALT (9-52) IU/L Alkaline Phosphatase (38-126) U/L Total Protein (6.3-8.2) g/dL Albumin (3.5-5.0) g/dL Globulin (1.7-4.1) g/dL Albumin/Globulin Ratio (1.0-2.8) Lipase (23-300) U/L Procalcitonin (<0.5) ng/mL Urine Color Yellow Urine Appearance Clear Urine pH 6.5 (4.5-8.0) Ur Specific [place] 1.010 (1.000-1.035) Urine Protein Negative (Negative) Urine Glucose (UA) Negative (Negative) g/dL Urine Ketones Negative (NEGATIVE) Urine Occult Blood Negative (Negative) Urine Nitrate Positive H (Negative) Urine Bilirubin Negative (NEGATIVE) Urine Urobilinogen 0.2 (0.2) E.U./dL Ur Leukocyte Esterase Trace H (NEGATIVE) Urine RBC None seen (0-5/HPF) Urine WBC 0-1/hpf (0-5/HPF) Ur Squamous Epith Cells 0-1 /hpf Amorphous Sediment 2+ Urine Bacteria Few (2-10) H (None) Urine Mucus 1+ H (Negative) Ur Culture Indicated? Specimen cultured Micro UA Comment Not Reportable Discharge Plan Departure Patient Disposition: Home Clinical Impression: Complication of urostomy Discharge Date/Time: 04/02/18 20:08 Interventions: ED Discharge Assessment Last Done: 04/02/18 20:08 Instructions: How to Care for Your Urostomy Activity Restrictions/Additional Instructions: Laboratory results indicate slightly elevated white count. Urinalysis was negative for urinary tract infection. Other laboratory results were unremarkable. Follow up with surgery and Urology this week for re-evaluation. Small amount of [place] was provided for breakthrough pain not covered by the Tylenol. Continue using Macrobid as prescribed for urinary tract infection. For any worsening symptoms return to the emergency room. Prescriptions: New hydrocodone-acetaminophen [[place]] 5-325 mg tablet 1 tab PO Q4-6H PRN (Reason: pain) Qty: 6 RF: 0 No Action hydroxyzine HCl 25 MG tablet 25 mg PO QID Qty: 0 RF: 0 magnesium oxide 400 MG tablet 400 mg PO BEDTIME Qty: 0 RF: 0 albuterol sulfate [Proventil HFA] 90 MCG/PUFF HFA aerosol inhaler 2 puff INH Q4HP PRN (Reason: Shortness Of Breath) Qty: 0 RF: 0 duloxetine 60 MG capsule,delayed release(DR/EC) 60 mg PO QDAY Qty: 0 RF: 0 gabapentin [Neurontin] 300 MG capsule 600 mg PO QID Qty: 0 RF: 0 multivitamin [Multiple Vitamins] 1 EACH tablet 1 tab PO QDAY Qty: 0 RF: 0 zolpidem [Ambien] 10 MG tablet 10 mg PO HS Qty: 0 RF: 0 oxycodone-acetaminophen 5-325 mg tablet 1 tab PO Q4-6H PRN (Reason: pain) Qty: 15 RF: 0 amitriptyline 50 mg tablet 3 tab PO BEDTIME RF: 0 potassium chloride 20 mEq tablet,ER particles/crystals 20 meq PO QNOON RF: 0 lisinopril 10 mg tablet 10 mg PO DAILY RF: 0 omeprazole 20 mg capsule,delayed release(DR/EC) 20 mg PO BID RF: 0 ondansetron 4 mg tablet,disintegrating 1 tab Translingual Q6H PRN (Reason: Nausea) RF: 0 insulin NPH isoph U-100 human [Humulin N NPH Insulin KwikPen] 100 unit/mL (3 mL) insulin pen 15 units Sub-Q BEDTIME RF: 0 rivaroxaban [Xarelto] 20 mg tablet 20 mg PO DAILY RF: 0 Probiotic 1 tab PO BID RF: 0 vitamin E 1 cap PO DAILY RF: 0 hydrocodone-acetaminophen 5-325 mg tablet 1 tab PO Q6H PRN (Reason: pain) Qty: 5 RF: 0 lorazepam 1 mg tablet 1 mg PO BID-TID PRN (Reason: anxiety) Qty: 7 RF: 0 Referrals: Fadi Ko DO [Primary Care Provider] -
[2018-04-02 14:35] VITALS: BP 132/78; PULSE 90; RESP 15; O2SAT 100
--- NOTE | 2018-04-02 15:12 | DI.CT.S_ITS ---
PROCEDURE: CT ABDOMEN PELVIS W CON INDICATIONS: Reports worsening pain and swelling into urostomy site TECHNIQUE: After the administration of oral and intravenous contrast, 5 mm thick sections acquired from the diaphragms to the symphysis. 5 mm thick coronal and sagittal reformats were performed. For radiation dose reduction, the following was used: automated exposure control, adjustment of mA and/or kV according to patient size. COMPARISON: [facility], CT, CT ABDOMEN PELVIS WITH CONTRAST, 03/27/2018, 12:59. FINDINGS: Image quality: Excellent. ABDOMEN: Lung bases: There is mild dependent atelectasis bilaterally. Patchy indistinct ground glass opacities in the lung bases are slightly decreased in prominence from the prior study. Heart size is normal. Solid organs: No focal hepatic lesions identified. There are small dependent filling defects in the region of the gallbladder neck compatible small gallstones. No gallbladder wall thickening or pericholecystic fluid. Biliary system is non-dilated. There are multiple small calcifications are redemonstrated in the pancreas consistent with sequela of chronic pancreatitis. No pancreatic duct dilatation. Spleen is normal in size and enhancement. No adrenal nodules. There is persistent [id number] hydroureteronephrosis bilaterally extending to the ileal conduit in the right lower quadrant. There is bowel wall thickening along the course of the ileal conduit suggestive of an infectious or inflammatory process. No increased distention compared to the prior study to suggest obstruction. The kidneys demonstrate symmetric enhancement bilaterally without a definite striated nephrogram. No perinephric fluid collections or new fat stranding. Peritoneum and bowel: Stomach, small bowel, and colon loops are normal in caliber and wall thickness. There is moderate colonic stool distention suggestive of constipation. No free fluid or air. Nodes and vessels: No retroperitoneal or mesenteric adenopathy. Aorta and inferior vena cava are normal in caliber. Miscellaneous: No ventral hernias. PELVIS: Genitourinary: The surgery changes are redemonstrated status post prior cystectomy. Multiple surgical clips are demonstrated in the pelvis. No new suspicious masses. Miscellaneous: No inguinal hernias or adenopathy. Bones: No suspicious bony lesions. No vertebral body compression fractures. IMPRESSION: 1. Postsurgical changes status post cystectomy with a right lower quadrant ileal conduit redemonstrated. 2. Persistent bilateral [id number] hydroureteronephrosis extending to the ileal conduit. No definite increased distention to suggest new obstruction. 3. Mild wall thickening demonstrated along the ileal conduit may reflect a mild infectious or inflammatory process. Dictated by: Darin Carrasquillo M.D. on 04/02/2018 at 17:13 Approved by: Darin Carrasquillo M.D. on 04/02/2018 at 17:19
[2018-04-02 15:42] LABS: Add Manual Diff / Slide Review NO; Basophils Percent Auto 1.3 % (0-2); Eosinophils Percent Auto 0.5 % (2-4); Hematocrit 35.4 % (36-46); Hemoglobin 11.9 g/dL (12.0-16.0); Lymphocytes Percent Auto 32.7 % (25-40); Mean Corpuscular HGB Conc 33.5 % (30-36); Mean Corpuscular Hemoglobin 30.8 PG (26-34); Monocytes Percent Auto 2.8 % (3-14); Neutrophils Absolute Auto 9000 /uL (1500-7000); Neutrophils Percent Auto 62.7 % (50-75); Platelet Count 464 X10^3/uL (150-400); Red Blood Cell Count 3.85 X10^6/uL (4.0-5.2); Red Cell Distribution Width 14.5 % (11.6-14.8); White Blood Cell Count 14.3 X10^3/uL (4.5-11.0)
[2018-04-02] MEDS: HYDROMORPHONE 1 MG INJ IV (15:53)
[2018-04-02] MEDS: ONDANSETRON 4 MG/2 ML INJ IV (15:53)
[2018-04-02 15:54] LABS: Alanine Aminotransferase 18 IU/L (9-52); Albumin 4.2 g/dL (3.5-5.0); Albumin Globulin Ratio 1.2 (1.0-2.8); Alkaline Phosphatase 87 U/L (38-126); Aspartate Aminotransferase 26 IU/L (14-36); Bilirubin Total 0.4 mg/dL (0.2-1.3); Blood Urea Nitrogen 13 mg/dL (7-17); Calcium 9.7 mg/dL (8.4-10.2); Carbon Dioxide 24 mmol/L (22-32); Chloride 104 mmol/L (98-107); Estimated Glomerular Filt Rate > 60.0 mL/min (>60); Globulin 3.4 g/dL (1.7-4.1); Glucose 187 mg/dL (70-100); HEMOLYSIS 46 (0-50); Potassium 4.7 mmol/L (3.4-5.1); Sodium 137 mmol/L (137-145); Total Protein 7.6 g/dL (6.3-8.2)
[2018-04-02] MEDS: SODIUM CHLORIDE 0.9% 1,000 ML 150 ML IV (15:54)
[2018-04-02 15:55] LABS: Lactate (Lactic Acid) 2.5 mmol/L (0.7-2.1)
[2018-04-02 15:56] LABS: Lipase < 10 U/L (23-300)
[2018-04-02 16:12] LABS: Procalcitonin < 0.05 ng/mL (<0.5)
[2018-04-02 16:16] LABS: RBC Urine None Seen (0-5/HPF)
[2018-04-02 16:18] LABS: Appearance Urine UA CLEAR; Bilirubin Urine UA NEGATIVE (NEGATIVE); Color Urine UA YELLOW; Glucose Urine UA NEGATIVE (Negative); Ketones Urine UA NEGATIVE (NEGATIVE); Leukocyte Esterase Urine UA TRACE (NEGATIVE); Nitrite Urine UA POSITIVE (Negative); Occult Blood Urine UA NEGATIVE (Negative); Protein Urine UA NEGATIVE (Negative); Urobilinogen Urine UA 0.2 E.U./dL (0.2); pH Urine UA 6.5 (4.5-8.0)
[2018-04-02 16:30] VITALS: BP 119/77; PULSE 88; O2SAT 97
[2018-04-02 16:30] LABS: WBC Urine 0-1/HPF (0-5/HPF)
[2018-04-02 16:31] LABS: Amorphous Sediment Urine 2+; Bacteria Urine Few (2-10); Culture Indicated Urine Specimen Cultured; Mucus Urine 1+ (Negative); Squamous Epithelial Cell Urine 0-1 /HPF
[2018-04-02] MEDS: HYDROMORPHONE 1 MG INJ 0.5 MG IV (17:50)
[2018-04-02 18:00] VITALS: BP 136/78; PULSE 85; RESP 14; O2SAT 96
[2018-04-02 19:08] LABS: Lactate (Lactic Acid) 1.3 mmol/L (0.7-2.1)
[2018-04-02 19:38] LABS: Reflexed Lactate in 2 Hours Y
--- NOTE | 2018-04-02 19:40 | ED_ITS ---
HPI - Abdominal Pain <YASMANI Paredes - Last Filed: 04/02/18 22:16> General Chief Complaint: Abdominal Pain Stated Complaint: abd pain Time Seen by Provider: 04/02/18 12:53 Source: patient Mode of arrival: ambulatory Limitations: no limitations History of Present Illness HPI narrative: 52-year-old female with history of interstitial cystitis that has a bypass urostomy and is an everyday smoker here for complaint of pain into her urostomy area. She reports she has had pain into her urostomy area over the past 2 months.. She denies any trauma to the area. She has been seen by Urology at [facility] and is referred to surgery for evaluation whether not urostomy needs to be surgically repaired. She was admitted last week for urosepsis she has been released and is currently taking Macrobid. For her symptoms. She has not seen surgery yet for evaluation. She denies any fevers. She reports that she has had increased pain today. She denies any other concerns or complaints. MD complaint: abdominal pain Related Data Home Medications Medication Instructions Recorded Confirmed albuterol sulfate [Proventil HFA] 2 puff INH Q4HP PRN #0 01/08/13 09/26/17 hydroxyzine HCl 25 mg PO QID #0 01/08/13 09/26/17 magnesium oxide 400 mg PO BEDTIME #0 tab 01/08/13 09/26/17 duloxetine 60 mg PO QDAY #0 07/04/17 09/26/17 gabapentin [Neurontin] 600 mg PO QID #0 07/04/17 09/26/17 multivitamin [Multiple Vitamins] 1 tab PO QDAY #0 07/04/17 09/26/17 zolpidem [Ambien] 10 mg PO HS #0 07/04/17 09/26/17 Probiotic 1 tab PO BID 09/26/17 09/26/17 amitriptyline 3 tab PO BEDTIME 09/26/17 09/26/17 insulin NPH isoph U-100 human 15 units SUB-Q BEDTIME 09/26/17 09/26/17 [Humulin N NPH Insulin KwikPen] lisinopril 10 mg PO DAILY 09/26/17 09/26/17 omeprazole 20 mg PO BID 09/26/17 09/26/17 ondansetron 1 tab TRANSLINGUAL Q6H PRN 09/26/17 09/26/17 potassium chloride 20 meq PO QNOON 09/26/17 09/26/17 rivaroxaban [Xarelto] 20 mg PO DAILY 09/26/17 09/26/17 vitamin E 1 cap PO DAILY 09/26/17 09/26/17 Previous Rx's Medication Instructions Recorded hydrocodone-acetaminophen 1 tab PO Q6H PRN #5 tab 09/26/17 lorazepam 1 mg PO BID-TID PRN #7 tab 09/26/17 oxycodone-acetaminophen 1 tab PO Q4-6H PRN #15 tab 02/18/18 hydrocodone-acetaminophen [Mesa] 1 tab PO Q4-6H PRN #6 tab 04/02/18 Allergies Allergy/AdvReac Type Severity Reaction Status Date / Time mupirocin Allergy Unknown Verified 02/18/18 15:21 naproxen Allergy Unknown Verified 02/18/18 15:21 Penicillins Allergy Unknown SINCE Verified 02/18/18 15:21 CHILDHOOD droperidol AdvReac Unknown Verified 02/18/18 15:21 fenofibrate [FENOFIBRATE] AdvReac Unknown Verified 02/18/18 15:21 ibuprofen AdvReac Unknown NAUSEA Verified 02/18/18 15:21 metformin [METFORMIN] AdvReac Unknown Verified 02/18/18 15:21 metoclopramide AdvReac Unknown BECAME Verified 02/18/18 15:21 JITTERY AND ANXIOUS nitrofurantoin AdvReac Unknown NAUSEA Verified 02/18/18 15:21 Review of Systems <YASMANI Paredes - Last Filed: 04/02/18 22:16> Constitutional Denies chills, Denies fever(s), Denies lethargy and Denies weakness Eyes Denies change in vision, Denies eye discharge, Denies irritation and Denies loss of vision ENT Ears, Nose, Mouth, and Throat: Denies change in voice, Denies neck pain and Denies sore throat Cardiovascular Denies chest pain, Denies irregular heart rhythm, Denies lightheadedness, Denies palpitations, Denies dyspnea, Denies dyspnea on exertion and Denies orthopnea Respiratory Denies cough, Denies dyspnea, Denies dyspnea on exertion and Denies wheezing Gastrointestinal Gastrointestinal: Denies abdominal pain, Denies change in bowel habits, Denies diarrhea, Denies nausea and Denies vomiting Comments: Pain to area of urostomy site Genitourinary Denies hematuria, Denies flank pain, Denies urinary incontinence and Denies urinary urgency Musculoskeletal Denies neck pain Integumentary/Breasts Denies pruritus, Denies erythema, Denies rash and Denies wounds Neurologic Denies confusion, Denies loss of vision and Denies weakness Psychiatric Denies anxiety, Denies confusion, Denies depression, Denies homicidal ideation and Denies suicidal ideation Endocrine Denies palpitations Hematologic/Lymphatic Denies easy bruising Allergic/Immunologic Denies wheezing Exam <YASMANI Paredes - Last Filed: 04/02/18 22:16> Initial Vital Signs Initial Vital Signs: Vital Signs Temperature 97.8 F 04/02/18 11:46 Pulse Rate 108 H 04/02/18 11:46 Respiratory Rate 22 04/02/18 11:46 Blood Pressure 144/87 H 04/02/18 11:46 Pulse Oximetry 100 04/02/18 11:46 Const General: cooperative and well developed Nutritional Appearance: well nourished Orientation: alert, awake, oriented x3 and not confused [facility] Mouth: oral mucosae normal and moist mucous membranes Eyes Conjunctivae: conjunctivae normal Sclera: sclerae normal Pupils: PERRL EOM: EOM intact bilaterally Resp Effort & Inspection: normal respiratory effort, able to speak in complete sentences, no respiratory distress and no use of accessory muscles Auscultation: clear to auscultation bilaterally, no rales, no rhonchi and no wheezes Cardio Rate: regular rate Rhythm: regular rhythm Heart Sounds: no click, no gallops, no murmurs and no rubs Pulses: normal peripheral pulses GI Inspection: non-distended Palpation: soft, no hepatosplenomegaly, No guarding, No pulsatile mass and No tender Auscultation: normal bowel sounds Other: Urostomy site with no surrounding erythema. No fluctuance no induration. There is some firmness to the surrounding area consistent with scar tissue. Stomy itself is pink and appears healthy General: No CVA tenderness Neuro General: alert, oriented x3, gait normal and no focal motor deficits Speech: speech normal Extrem General: full ROM, no clubbing, cyanosis or edema, no pedal edema and no calf tenderness <Carole Mariee MD - Last Filed: 04/03/18 13:58> Initial Vital Signs Initial Vital Signs: Vital Signs Temperature 97.8 F 04/02/18 11:46 Pulse Rate 108 H 04/02/18 11:46 Respiratory Rate 22 04/02/18 11:46 Blood Pressure 144/87 H 04/02/18 11:46 Pulse Oximetry 100 04/02/18 11:46 Course <YASMANI Paredes - Last Filed: 04/02/18 22:16> Orders Ordered: Sodium Chloride (Normal Saline 0.9%) 1,000 mls @ 150 mls/hr IV CONT ISSA Last Infusion: 04/02/18 18:33 Dose: 0 mls/hr Admin: 04/02/18 15:54 Dose: 150 mls/hr Discontinued Medications Hydrocodone Bitart/Acetaminophen (Vicodin Prepack) 1 bottle MISC SEEINSTR ONE Stop: 04/02/18 19:52 Last Admin: 04/02/18 20:00 Dose: 1 bottle Hydromorphone HCl (Dilaudid) 1 mg IV NOW ONE Stop: 04/02/18 15:11 Last Admin: 04/02/18 15:53 Dose: 1 mg Hydromorphone HCl (Dilaudid) 0.5 mg IV NOW ONE Stop: 04/02/18 17:20 Last Admin: 04/02/18 17:50 Dose: 0.5 mg Sodium Chloride (Normal Saline 0.9%) 500 mls @ 1,000 mls/hr IV BOLUS ONE Stop: 04/02/18 17:48 Last Admin: 04/02/18 19:12 Dose: Ondansetron HCl (Zofran) 4 mg IV NOW ONE Stop: 04/02/18 15:11 Last Admin: 04/02/18 15:53 Dose: 4 mg Vital Signs - 8 hr 04/02/18 14:35 04/02/18 16:30 04/02/18 18:00 Pulse Rate 90 88 85 Respiratory Rate 15 14 Blood Pressure [Right Arm] 132/78 119/77 136/78 Pulse Oximetry 100 97 96 04/02/18 19:56 04/02/18 19:57 Pulse Rate 81 83 Respiratory Rate 17 19 Blood Pressure [Right Arm] 140/75 140/75 Pulse Oximetry <Carole Mariee MD - Last Filed: 04/03/18 13:58> Orders Ordered: Sodium Chloride (Normal Saline 0.9%) 1,000 mls @ 150 mls/hr IV CONT ISSA Last Infusion: 04/02/18 18:33 Dose: 0 mls/hr Admin: 04/02/18 15:54 Dose: 150 mls/hr Discontinued Medications Hydrocodone Bitart/Acetaminophen (Vicodin Prepack) 1 bottle MISC SEEINSTR ONE Stop: 04/02/18 19:52 Last Admin: 04/02/18 20:00 Dose: 1 bottle Hydromorphone HCl (Dilaudid) 1 mg IV NOW ONE Stop: 04/02/18 15:11 Last Admin: 04/02/18 15:53 Dose: 1 mg Hydromorphone HCl (Dilaudid) 0.5 mg IV NOW ONE Stop: 04/02/18 17:20 Last Admin: 04/02/18 17:50 Dose: 0.5 mg Sodium Chloride (Normal Saline 0.9%) 500 mls @ 1,000 mls/hr IV BOLUS ONE Stop: 04/02/18 17:48 Last Admin: 04/02/18 19:12 Dose: Ondansetron HCl (Zofran) 4 mg IV NOW ONE Stop: 04/02/18 15:11 Last Admin: 04/02/18 15:53 Dose: 4 mg Vital Signs - 8 hr 04/02/18 14:35 04/02/18 16:30 04/02/18 18:00 Pulse Rate 90 88 85 Respiratory Rate 15 14 Blood Pressure [Right Arm] 132/78 119/77 136/78 Pulse Oximetry 100 97 96 04/02/18 19:56 04/02/18 19:57 Pulse Rate 81 83 Respiratory Rate 17 19 Blood Pressure [Right Arm] 140/75 140/75 Pulse Oximetry MDM - Abdominal Pain <YASMANI Paredes - Last Filed: 04/02/18 22:16> Lab Data Result diagrams: 04/02/18 15:30 04/02/18 15:30 Lab Results 04/02/18 04/02/18 04/02/18 Range/Units 15:30 15:30 15:30 WBC 14.3 H (4.5-11.0) X10^3/uL RBC 3.85 L (4.0-5.2) X10^6/uL Hgb 11.9 L (12.0-16.0) g/dL Hct 35.4 L (36-46) % MCV 92.0 (80-100) fL MCH 30.8 (26-34) PG MCHC 33.5 (30-36) % RDW 14.5 (11.6-14.8) % Plt Count 464 H (150-400) X10^3/uL Neut % (Auto) 62.7 (50-75) % Lymph % (Auto) 32.7 (25-40) % Mesa % (Auto) 2.8 L (3-14) % Eos % (Auto) 0.5 L (2-4) % Baso % (Auto) 1.3 (0-2) % Neut # (Auto) 9000 H (8777-6953) /uL Sodium 137 (137-145) mmol/L Potassium 4.7 (3.4-5.1) mmol/L Chloride 104 (98-107) mmol/L Carbon Dioxide 24 (22-32) mmol/L BUN 13 (7-17) mg/dL Creatinine 0.50 L (0.52-1.04) mg/dL Estimated GFR > 60.0 (>60) mL/min BUN/Creatinine Ratio 26.0 H (6-22) Glucose 187 H (70-100) mg/dL Lactate (0.7-2.1) mmol/L Calcium 9.7 (8.4-10.2) mg/dL Total Bilirubin 0.4 (0.2-1.3) mg/dL AST 26 (14-36) IU/L ALT 18 (9-52) IU/L Alkaline Phosphatase 87 (38-126) U/L Total Protein 7.6 (6.3-8.2) g/dL Albumin 4.2 (3.5-5.0) g/dL Globulin 3.4 (1.7-4.1) g/dL Albumin/Globulin Ratio 1.2 (1.0-2.8) Lipase < 10 L (23-300) U/L Procalcitonin < 0.05 (<0.5) ng/mL Urine Color Urine Appearance Urine pH (4.5-8.0) Ur Specific Lemmon (1.000-1.035) Urine Protein (Negative) Urine Glucose (UA) (Negative) g/dL Urine Ketones (NEGATIVE) Urine Occult Blood (Negative) Urine Nitrate (Negative) Urine Bilirubin (NEGATIVE) Urine Urobilinogen (0.2) E.U./dL Ur Leukocyte Esterase (NEGATIVE) Urine RBC (0-5/HPF) Urine WBC (0-5/HPF) Ur Squamous Epith Cells Amorphous Sediment Urine Bacteria (None) Urine Mucus (Negative) Ur Culture Indicated? Micro UA Comment 04/02/18 04/02/18 04/02/18 Range/Units 15:30 15:55 18:40 WBC (4.5-11.0) X10^3/uL RBC (4.0-5.2) X10^6/uL Hgb (12.0-16.0) g/dL Hct (36-46) % MCV (80-100) fL MCH (26-34) PG MCHC (30-36) % RDW (11.6-14.8) % Plt Count (150-400) X10^3/uL Neut % (Auto) (50-75) % Lymph % (Auto) (25-40) % Mesa % (Auto) (3-14) % Eos % (Auto) (2-4) % Baso % (Auto) (0-2) % Neut # (Auto) (2580-8636) /uL Sodium (137-145) mmol/L Potassium (3.4-5.1) mmol/L Chloride (98-107) mmol/L Carbon Dioxide (22-32) mmol/L BUN (7-17) mg/dL Creatinine (0.52-1.04) mg/dL Estimated GFR (>60) mL/min BUN/Creatinine Ratio (6-22) Glucose (70-100) mg/dL Lactate 2.5 H 1.3 (0.7-2.1) mmol/L Calcium (8.4-10.2) mg/dL Total Bilirubin (0.2-1.3) mg/dL AST (14-36) IU/L ALT (9-52) IU/L Alkaline Phosphatase (38-126) U/L Total Protein (6.3-8.2) g/dL Albumin (3.5-5.0) g/dL Globulin (1.7-4.1) g/dL Albumin/Globulin Ratio (1.0-2.8) Lipase (23-300) U/L Procalcitonin (<0.5) ng/mL Urine Color Yellow Urine Appearance Clear Urine pH 6.5 (4.5-8.0) Ur Specific Lemmon 1.010 (1.000-1.035) Urine Protein Negative (Negative) Urine Glucose (UA) Negative (Negative) g/dL Urine Ketones Negative (NEGATIVE) Urine Occult Blood Negative (Negative) Urine Nitrate Positive H (Negative) Urine Bilirubin Negative (NEGATIVE) Urine Urobilinogen 0.2 (0.2) E.U./dL Ur Leukocyte Esterase Trace H (NEGATIVE) Urine RBC None seen (0-5/HPF) Urine WBC 0-1/hpf (0-5/HPF) Ur Squamous Epith Cells 0-1 /hpf Amorphous Sediment 2+ Urine Bacteria Few (2-10) H (None) Urine Mucus 1+ H (Negative) Ur Culture Indicated? Specimen cultured Micro UA Comment Not Reportable Imaging Data CT scan - abdomen: Radiologist's impression: View Report History [address] [address] [address] Scan Report Signed Patient: Melvi Gibbs MR#: [id number] : 1965 Acct:[id number] Age/Sex: 52 / F Date of Service: 04/02/18 Loc: ED Accession Number: [id number] Procedure: CT abdomen pelvis w con Ordering Provider: Jsoe Antonio Medeiros PROCEDURE: CT ABDOMEN PELVIS W CON INDICATIONS: Reports worsening pain and swelling into urostomy site TECHNIQUE: After the administration of oral and intravenous contrast, 5 mm thick sections acquired from the diaphragms to the symphysis. 5 mm thick coronal and sagittal reformats were performed. For radiation dose reduction, the following was used: automated exposure control, adjustment of mA and/or kV according to patient size. COMPARISON: [facility], CT, CT ABDOMEN PELVIS WITH CONTRAST, 2017, 12:59. FINDINGS: Image quality: Excellent. ABDOMEN: Lung bases: There is mild dependent atelectasis bilaterally. Patchy indistinct ground glass opacities in the lung bases are slightly decreased in prominence from the prior study. Heart size is normal. Solid organs: No focal hepatic lesions identified. There are small dependent filling defects in the region of the gallbladder neck compatible small gallstones. No gallbladder wall thickening or pericholecystic fluid. Biliary system is non- dilated. There are multiple small calcifications are redemonstrated in the pancreas consistent with sequela of chronic pancreatitis. No pancreatic duct dilatation. Spleen is normal in size and enhancement. No adrenal nodules. There is persistent [id number]-gs-avigproa hydroureteronephrosis bilaterally extending to the ileal conduit in the right lower quadrant. There is bowel wall thickening along the course of the ileal conduit suggestive of an infectious or inflammatory process. No increased distention compared to the prior study to suggest obstruction. The kidneys demonstrate symmetric enhancement bilaterally without a definite striated nephrogram. No perinephric fluid collections or new fat stranding. Peritoneum and bowel: Stomach, small bowel, and colon loops are normal in caliber and wall thickness. There is moderate colonic stool distention suggestive of constipation. No free fluid or air. Nodes and vessels: No retroperitoneal or mesenteric adenopathy. Aorta and inferior vena cava are normal in caliber. Miscellaneous: No ventral hernias. PELVIS: Genitourinary: The surgery changes are redemonstrated status post prior cystectomy. Multiple surgical clips are demonstrated in the pelvis. No new suspicious masses. Miscellaneous: No inguinal hernias or adenopathy. Bones: No suspicious bony lesions. No vertebral body compression fractures. IMPRESSION: 1. Postsurgical changes status post cystectomy with a right lower quadrant ileal conduit redemonstrated. 2. Persistent bilateral [id number] hydroureteronephrosis extending to the ileal conduit. No definite increased distention to suggest new obstruction. 3. Mild wall thickening demonstrated along the ileal conduit may reflect a mild infectious or inflammatory process. Dictated by: Darin Carrasquillo M.D. on 04/02/2018 at 17:13 Approved by: Darin Carrasquillo M.D. on 04/02/2018 at 17:19 [facility] Narrative Medical decision making narrative: cbc was obtained and shows elevated white count of 14.5 kg. This is mildly elevated compared to her normal WBC as it is frequently mildly elevated. Lipase was unremarkable. Lactate was elevated at 2.5. After 1 L of normal saline was given intravenously her lactate reduced to 1.5. Urinalysis was negative for urinary tract infection. CT of the abdomen was obtained and shows possible mild inflammatory or infectious changes to the area of the ileal conduit of the urostomy. Discussed case with surgery who recommends follow-up with Urology and surgery this week. Does not feel that anything emergent needs to be done at this time. Will have her continue taking the Macrobid as prescribed. She is prescribed a small amount of Mesa to help with pain. For any worsening symptoms return emergency room. <Carole Mariee MD - Last Filed: 04/03/18 13:58> Lab Data Lab Results 04/02/18 04/02/18 04/02/18 Range/Units 15:30 15:30 15:30 WBC 14.3 H (4.5-11.0) X10^3/uL RBC 3.85 L (4.0-5.2) X10^6/uL Hgb 11.9 L (12.0-16.0) g/dL Hct 35.4 L (36-46) % MCV 92.0 (80-100) fL MCH 30.8 (26-34) PG MCHC 33.5 (30-36) % RDW 14.5 (11.6-14.8) % Plt Count 464 H (150-400) X10^3/uL Neut % (Auto) 62.7 (50-75) % Lymph % (Auto) 32.7 (25-40) % Mesa % (Auto) 2.8 L (3-14) % Eos % (Auto) 0.5 L (2-4) % Baso % (Auto) 1.3 (0-2) % Neut # (Auto) 9000 H (8270-5576) /uL Sodium 137 (137-145) mmol/L Potassium 4.7 (3.4-5.1) mmol/L Chloride 104 (98-107) mmol/L Carbon Dioxide 24 (22-32) mmol/L BUN 13 (7-17) mg/dL Creatinine 0.50 L (0.52-1.04) mg/dL Estimated GFR > 60.0 (>60) mL/min BUN/Creatinine Ratio 26.0 H (6-22) Glucose 187 H (70-100) mg/dL Lactate (0.7-2.1) mmol/L Calcium 9.7 (8.4-10.2) mg/dL Total Bilirubin 0.4 (0.2-1.3) mg/dL AST 26 (14-36) IU/L ALT 18 (9-52) IU/L Alkaline Phosphatase 87 (38-126) U/L Total Protein 7.6 (6.3-8.2) g/dL Albumin 4.2 (3.5-5.0) g/dL Globulin 3.4 (1.7-4.1) g/dL Albumin/Globulin Ratio 1.2 (1.0-2.8) Lipase < 10 L (23-300) U/L Procalcitonin < 0.05 (<0.5) ng/mL Urine Color Urine Appearance Urine pH (4.5-8.0) Ur Specific Lemmon (1.000-1.035) Urine Protein (Negative) Urine Glucose (UA) (Negative) g/dL Urine Ketones (NEGATIVE) Urine Occult Blood (Negative) Urine Nitrate (Negative) Urine Bilirubin (NEGATIVE) Urine Urobilinogen (0.2) E.U./dL Ur Leukocyte Esterase (NEGATIVE) Urine RBC (0-5/HPF) Urine WBC (0-5/HPF) Ur Squamous Epith Cells Amorphous Sediment Urine Bacteria (None) Urine Mucus (Negative) Ur Culture Indicated? Micro UA Comment 04/02/18 04/02/18 04/02/18 Range/Units 15:30 15:55 18:40 WBC (4.5-11.0) X10^3/uL RBC (4.0-5.2) X10^6/uL Hgb (12.0-16.0) g/dL Hct (36-46) % MCV (80-100) fL MCH (26-34) PG MCHC (30-36) % RDW (11.6-14.8) % Plt Count (150-400) X10^3/uL Neut % (Auto) (50-75) % Lymph % (Auto) (25-40) % Mesa % (Auto) (3-14) % Eos % (Auto) (2-4) % Baso % (Auto) (0-2) % Neut # (Auto) (9212-3731) /uL Sodium (137-145) mmol/L Potassium (3.4-5.1) mmol/L Chloride (98-107) mmol/L Carbon Dioxide (22-32) mmol/L BUN (7-17) mg/dL Creatinine (0.52-1.04) mg/dL Estimated GFR (>60) mL/min BUN/Creatinine Ratio (6-22) Glucose (70-100) mg/dL Lactate 2.5 H 1.3 (0.7-2.1) mmol/L Calcium (8.4-10.2) mg/dL Total Bilirubin (0.2-1.3) mg/dL AST (14-36) IU/L ALT (9-52) IU/L Alkaline Phosphatase (38-126) U/L Total Protein (6.3-8.2) g/dL Albumin (3.5-5.0) g/dL Globulin (1.7-4.1) g/dL Albumin/Globulin Ratio (1.0-2.8) Lipase (23-300) U/L Procalcitonin (<0.5) ng/mL Urine Color Yellow Urine Appearance Clear Urine pH 6.5 (4.5-8.0) Ur Specific Lemmon 1.010 (1.000-1.035) Urine Protein Negative (Negative) Urine Glucose (UA) Negative (Negative) g/dL Urine Ketones Negative (NEGATIVE) Urine Occult Blood Negative (Negative) Urine Nitrate Positive H (Negative) Urine Bilirubin Negative (NEGATIVE) Urine Urobilinogen 0.2 (0.2) E.U./dL Ur Leukocyte Esterase Trace H (NEGATIVE) Urine RBC None seen (0-5/HPF) Urine WBC 0-1/hpf (0-5/HPF) Ur Squamous Epith Cells 0-1 /hpf Amorphous Sediment 2+ Urine Bacteria Few (2-10) H (None) Urine Mucus 1+ H (Negative) Ur Culture Indicated? Specimen cultured Micro UA Comment Not Reportable Discharge Plan Departure Patient Disposition: Home Clinical Impression: Complication of urostomy Discharge Date/Time: 04/02/18 20:08 Interventions: ED Discharge Assessment Last Done: 04/02/18 20:08 Instructions: How to Care for Your Urostomy Activity Restrictions/Additional Instructions: Laboratory results indicate slightly elevated white count. Urinalysis was negative for urinary tract infection. Other laboratory results were unremarkable. Follow up with surgery and Urology this week for re-evaluation. Small amount of Mesa was provided for breakthrough pain not covered by the Tylenol. Continue using Macrobid as prescribed for urinary tract infection. For any worsening symptoms return to the emergency room. Prescriptions: New hydrocodone-acetaminophen [Mesa] 5-325 mg tablet 1 tab PO Q4-6H PRN (Reason: pain) Qty: 6 RF: 0 No Action hydroxyzine HCl 25 MG tablet 25 mg PO QID Qty: 0 RF: 0 magnesium oxide 400 MG tablet 400 mg PO BEDTIME Qty: 0 RF: 0 albuterol sulfate [Proventil HFA] 90 MCG/PUFF HFA aerosol inhaler 2 puff INH Q4HP PRN (Reason: Shortness Of Breath) Qty: 0 RF: 0 duloxetine 60 MG capsule,delayed release(DR/EC) 60 mg PO QDAY Qty: 0 RF: 0 gabapentin [Neurontin] 300 MG capsule 600 mg PO QID Qty: 0 RF: 0 multivitamin [Multiple Vitamins] 1 EACH tablet 1 tab PO QDAY Qty: 0 RF: 0 zolpidem [Ambien] 10 MG tablet 10 mg PO HS Qty: 0 RF: 0 oxycodone-acetaminophen 5-325 mg tablet 1 tab PO Q4-6H PRN (Reason: pain) Qty: 15 RF: 0 amitriptyline 50 mg tablet 3 tab PO BEDTIME RF: 0 potassium chloride 20 mEq tablet,ER particles/crystals 20 meq PO QNOON RF: 0 lisinopril 10 mg tablet 10 mg PO DAILY RF: 0 omeprazole 20 mg capsule,delayed release(DR/EC) 20 mg PO BID RF: 0 ondansetron 4 mg tablet,disintegrating 1 tab Translingual Q6H PRN (Reason: Nausea) RF: 0 insulin NPH isoph U-100 human [Humulin N NPH Insulin KwikPen] 100 unit/mL (3 mL) insulin pen 15 units Sub-Q BEDTIME RF: 0 rivaroxaban [Xarelto] 20 mg tablet 20 mg PO DAILY RF: 0 Probiotic 1 tab PO BID RF: 0 vitamin E 1 cap PO DAILY RF: 0 hydrocodone-acetaminophen 5-325 mg tablet 1 tab PO Q6H PRN (Reason: pain) Qty: 5 RF: 0 lorazepam 1 mg tablet 1 mg PO BID-TID PRN (Reason: anxiety) Qty: 7 RF: 0 Referrals: Fadi Ko DO [Primary Care Provider] -
[2018-04-02 19:56] VITALS: BP 140/75; PULSE 81; RESP 17
[2018-04-02 19:57] VITALS: BP 140/75; PULSE 83; RESP 19
[2018-04-02] MEDS: HYDROCODONE/ACET 5/325 PREPACK 1 BOTTLE MISC (20:00)
== END 2018-04-02 20:08 | disposition home or self-care (01) ==
LOC: ED 12:53 → AC 19:25 → ED 19:51
PROVIDERS: Emergency Provider Nurse Practitioner Family; Family Provider Family Medicine; PCP Family Medicine
DX: N99.528 Other complication of incontinent external stoma of urinary tract (principal)
CPT/HCPCS: 36415; 36591; 74177; 80053; 81001; 83605; 83690; 84145; 85025; 87077; 87086; 87147; 87186; 96360; 96361; 99283; 99285; J1170; J2405; Q9967

== ENCOUNTER 2018-04-29 15:14 | Emergency (ER) | payer OTHER, SELFPAY ==
[2018-04-29 15:15] VITALS: BP 111/65; PULSE 100; RESP 18; TEMP 36.4; O2SAT 97
--- NOTE | 2018-04-29 15:47 | ED.URI ---
HPI - URI/Sore Throat <Eugenia Alcantara PA-C - Last Filed: 04/29/18 21:45> General Chief Complaint: Upper Respiratory Symptoms Stated Complaint: CHEST PAINS/PHEMONIA Time Seen by Provider: 04/29/18 15:47 Source: patient Mode of arrival: ambulatory Limitations: no limitations History of Present Illness HPI Narrative: this chronically ill 52-year-old female comes to ED today due to persistent cough and chest pain. She states that she has been coughing hard for 3 days, and her chest hurts with cough and deep breath. She states that she also has a hernia just above her urostomy and states that the cough places pressure on that area as well, which can be painful. She states this is mostly her mid to lower ribs and worse on the right side. She was seen at another local emergency room 2 days ago and had a thorough workup including lab work, EKG, and chest x-ray. She was treated for possible pneumonia/ COPD exacerbation as well as a UTI. She is concerned that her antibiotic is not working. She states that she took Tylenol p.m., 4., around 9:00 a.m.. Has not taken other medications for this. Related Data Home Medications Medication Instructions Recorded Confirmed albuterol sulfate [Proventil HFA] 2 puff INH Q4HP PRN #0 01/08/13 09/26/17 hydroxyzine HCl 25 mg PO QID #0 01/08/13 09/26/17 magnesium oxide 400 mg PO BEDTIME #0 tab 01/08/13 09/26/17 duloxetine 60 mg PO QDAY #0 07/04/17 09/26/17 gabapentin [Neurontin] 600 mg PO QID #0 07/04/17 09/26/17 multivitamin [Multiple Vitamins] 1 tab PO QDAY #0 07/04/17 09/26/17 zolpidem [Ambien] 10 mg PO HS #0 07/04/17 09/26/17 Probiotic 1 tab PO BID 09/26/17 09/26/17 amitriptyline 3 tab PO BEDTIME 09/26/17 09/26/17 insulin NPH isoph U-100 human 15 units SUB-Q BEDTIME 09/26/17 09/26/17 [Humulin N NPH Insulin KwikPen] lisinopril 10 mg PO DAILY 09/26/17 09/26/17 omeprazole 20 mg PO BID 09/26/17 09/26/17 ondansetron 1 tab TRANSLINGUAL Q6H PRN 09/26/17 09/26/17 potassium chloride 20 meq PO QNOON 09/26/17 09/26/17 rivaroxaban [Xarelto] 20 mg PO DAILY 09/26/17 09/26/17 vitamin E 1 cap PO DAILY 09/26/17 09/26/17 Previous Rx's Medication Instructions Recorded hydrocodone-acetaminophen 1 tab PO Q6H PRN #5 tab 09/26/17 lorazepam 1 mg PO BID-TID PRN #7 tab 09/26/17 oxycodone-acetaminophen 1 tab PO Q4-6H PRN #15 tab 02/18/18 hydrocodone-acetaminophen [[place]] 1 tab PO Q4-6H PRN #6 tab 04/02/18 codeine-guaifenesin 5 ml PO Q4-6H PRN #100 ml 04/29/18 Allergies Allergy/AdvReac Type Severity Reaction Status Date / Time mupirocin Allergy Unknown Verified 04/29/18 15:24 naproxen Allergy Unknown Verified 04/29/18 15:24 Penicillins Allergy Unknown SINCE Verified 04/29/18 15:24 CHILDHOOD droperidol AdvReac Unknown Verified 04/29/18 15:24 fenofibrate [FENOFIBRATE] AdvReac Unknown Verified 04/29/18 15:24 ibuprofen AdvReac Unknown NAUSEA Verified 04/29/18 15:24 metformin [METFORMIN] AdvReac Unknown Verified 04/29/18 15:24 metoclopramide AdvReac Unknown BECAME Verified 04/29/18 15:24 JITTERY AND ANXIOUS nitrofurantoin AdvReac Unknown NAUSEA Verified 04/29/18 15:24 Review of Systems <Eugenia Alcantara PA-C - Last Filed: 04/29/18 21:45> Review of Systems ROS Unobtainable: All systems reviewed & are unremarkable except as noted in HPI and below Exam <Eugenia Alcantara PA-C - Last Filed: 04/29/18 21:45> Narrative Exam Narrative: GENERAL APPEARANCE: Patient appears anxious, in NAD HEAD: No sinus TTP. EYES: PERRL, EOMI. ORAL CAVITY: Normal oropharynx. THROAT: Clear. NECK/THYROID: Neck supple, full range of motion, no cervical lymphadenopathy. LUNGS: Clear to auscultation bilaterally with somewhat coarse breath sounds, a bit diminished, dry cough on exam. Patient noted to cough more frequently when I am present in the room CHEST: Tender over the mid to inferior anterior ribs more on the right side than left HEART: RRR without murmur, nl S1, S2, no S3 or S4. ABDOMEN: Percutaneous tube in place, soft, +bowel sounds x4 quadrants, nontender, no palpable mass EXTREMITIES: No edema, no cyanosis, no calf tenderness Initial Vital Signs Initial Vital Signs: Vital Signs Temperature 97.5 F L 04/29/18 15:15 Pulse Rate 100 H 04/29/18 15:15 Respiratory Rate 18 04/29/18 15:15 Blood Pressure 111/65 04/29/18 15:15 Pulse Oximetry 97 04/29/18 15:15 <Brenton Drew DO - Last Filed: 04/30/18 07:14> Initial Vital Signs Initial Vital Signs: Vital Signs Temperature 97.5 F L 04/29/18 15:15 Pulse Rate 100 H 04/29/18 15:15 Respiratory Rate 18 04/29/18 15:15 Blood Pressure 111/65 04/29/18 15:15 Pulse Oximetry 97 04/29/18 15:15 Course <Eugenia Alcantara PA-C - Last Filed: 04/29/18 21:45> Additional Information: Patient is less anxious and feeling significantly improved after cough syrup, with improvement in her cough and subsequently pain. She is not hypoxic, suspect mild tachycardia initially due to anxiety. She is on appropriate antibiotic treatment. No acute changes in her EKG. Reassured her that this antibiotic is appropriate for her pneumonia and urinary infection, chest x-ray findings will lag. She has only had 2 doses of antibiotics and explained this needs a little bit of time to start working, and that she is likely to continue to have cough given her asthma. She will return if acutely worsening symptoms, otherwise agreed to follow up with her PCP 1st of next week for recheck Orders Ordered: Discontinued Medications Guaifenesin/Codeine Phosphate (Guaifenesin/Codeine Liquid) 10 ml PO NOW ONE Stop: 04/29/18 15:56 Last Admin: 04/29/18 17:08 Dose: 10 ml Vital Signs - 8 hr 04/29/18 15:15 04/29/18 16:26 04/29/18 16:30 Temperature 97.5 F L Pulse Rate 100 H 98 H 96 H Respiratory Rate 18 20 18 Blood Pressure 111/65 Blood Pressure [Left Arm] 135/68 132/69 Pulse Oximetry 97 98 96 04/29/18 17:00 04/29/18 17:30 04/29/18 18:19 Temperature Pulse Rate 100 H 95 H 94 H Respiratory Rate 18 19 18 Blood Pressure 135/78 Blood Pressure [Left Arm] 135/75 134/79 Pulse Oximetry 100 98 98 <Brenton Drew DO - Last Filed: 04/30/18 07:14> Orders Ordered: Discontinued Medications Guaifenesin/Codeine Phosphate (Guaifenesin/Codeine Liquid) 10 ml PO NOW ONE Stop: 04/29/18 15:56 Last Admin: 04/29/18 17:08 Dose: 10 ml Vital Signs - 8 hr 04/29/18 15:15 04/29/18 16:26 04/29/18 16:30 Temperature 97.5 F L Pulse Rate 100 H 98 H 96 H Respiratory Rate 18 20 18 Blood Pressure 111/65 Blood Pressure [Left Arm] 135/68 132/69 Pulse Oximetry 97 98 96 04/29/18 17:00 04/29/18 17:30 04/29/18 18:19 Temperature Pulse Rate 100 H 95 H 94 H Respiratory Rate 18 19 18 Blood Pressure 135/78 Blood Pressure [Left Arm] 135/75 134/79 Pulse Oximetry 100 98 98 MDM - URI/Sore Throat <Eugenia Alcantara PA-C - Last Filed: 04/29/18 21:45> Imaging Data Chest x-ray: Radiologist's impression: [address] [address] XRay Report Signed Patient: Melvi Gibbs [facility]#: [id number] : 1965Acct:[id number] Age/Sex: 52 / FDate of Service: 04/29/18 Loc: ED Accession Number: [id number] Procedure: XR chest 2V Ordering Provider: Eugenia Alcantara P.A-C PROCEDURE: XR CHEST 2V INDICATIONS: R. chest pain, cough TECHNIQUE: 2 views of the chest were acquired. COMPARISON: [facility], CR, XR CHEST 1 VIEW, 04/27/2018, 10:05. [facility], CR, XR CHEST 1 VIEW, 04/27/2018, 12:07. FINDINGS: Surgical changes and devices: None. Lungs and pleura: Increased mild patchy airspace opacity at the bilateral lung bases. No pleural effusions or pneumothorax. Mediastinum: Mediastinal contours are normal. Heart size is normal. Bones and chest wall: No suspicious bony abnormalities. Soft tissues appear unremarkable. IMPRESSION: Increased bibasilar pneumonia. Follow up plain films of the chest are recommended to ensure resolution, and to exclude underlying or central malignancy. Dictated by: Kristian Bolton M.D. on 04/29/2018 at 16:25 Approved by: Kristian Bolton M.D. on 04/29/2018 at 16:26 ECG Data Attestation: I personally reviewed and interpreted this ECG as follows: (Sinus tachycardia with rate 101, normal axis, no acute change from 04/27 outside EKG) Discharge Plan Departure Patient Disposition: Home Clinical Impression: Pneumonia Discharge Date/Time: 04/29/18 18:19 Interventions: ED Discharge Assessment Last Done: 04/29/18 18:19 Instructions: DI for Pneumonia -- Adult Activity Restrictions/Additional Instructions: since you are feeling better and oxygenating well, you can monitor at home. You are on a good antibiotic for your pneumonia as well as your urinary infection, however this has not had sufficient time to start working since you have only had 2 doses. Please continue the Levaquin daily. I have given you a prescription for codeine cough syrup since this seemed to help you feel more comfortable and reduce cough. If we help treat the cough, this is likely to help with your rib pain as well. Please continue that as needed along with your inhalers and other usual medications, remember it can make you sleepy and to avoid activities such as driving or others were you need concentration. You should return if you have acutely worsening symptoms such as high fever or acute shortness of breath. Otherwise, as we talked about you should follow-up with your PCP in a few days to assess her progress after you have been on the antibiotic a little bit longer. Prescriptions: New codeine-guaifenesin 10-100 mg/5 mL liquid 5 ml PO Q4-6H PRN (Reason: cough, pneumonia) Qty: 100 RF: 0 No Action hydroxyzine HCl 25 MG tablet 25 mg PO QID Qty: 0 RF: 0 magnesium oxide 400 MG tablet 400 mg PO BEDTIME Qty: 0 RF: 0 albuterol sulfate [Proventil HFA] 90 MCG/PUFF HFA aerosol inhaler 2 puff INH Q4HP PRN (Reason: Shortness Of Breath) Qty: 0 RF: 0 duloxetine 60 MG capsule,delayed release(DR/EC) 60 mg PO QDAY Qty: 0 RF: 0 gabapentin [Neurontin] 300 MG capsule 600 mg PO QID Qty: 0 RF: 0 multivitamin [Multiple Vitamins] 1 EACH tablet 1 tab PO QDAY Qty: 0 RF: 0 zolpidem [Ambien] 10 MG tablet 10 mg PO HS Qty: 0 RF: 0 oxycodone-acetaminophen 5-325 mg tablet 1 tab PO Q4-6H PRN (Reason: pain) Qty: 15 RF: 0 amitriptyline 50 mg tablet 3 tab PO BEDTIME RF: 0 potassium chloride 20 mEq tablet,ER particles/crystals 20 meq PO QNOON RF: 0 lisinopril 10 mg tablet 10 mg PO DAILY RF: 0 omeprazole 20 mg capsule,delayed release(DR/EC) 20 mg PO BID RF: 0 ondansetron 4 mg tablet,disintegrating 1 tab Translingual Q6H PRN (Reason: Nausea) RF: 0 insulin NPH isoph U-100 human [Humulin N NPH Insulin KwikPen] 100 unit/mL (3 mL) insulin pen 15 units Sub-Q BEDTIME RF: 0 rivaroxaban [Xarelto] 20 mg tablet 20 mg PO DAILY RF: 0 Probiotic 1 tab PO BID RF: 0 vitamin E 1 cap PO DAILY RF: 0 hydrocodone-acetaminophen 5-325 mg tablet 1 tab PO Q6H PRN (Reason: pain) Qty: 5 RF: 0 lorazepam 1 mg tablet 1 mg PO BID-TID PRN (Reason: anxiety) Qty: 7 RF: 0 hydrocodone-acetaminophen [[place]] 5-325 mg tablet 1 tab PO Q4-6H PRN (Reason: pain) Qty: 6 RF: 0 Referrals: Fadi Ko DO [Primary Care Provider] - <Brenton Drew DO - Last Filed: 02/03/19 07:14> Cosign ED Attending Hyunature Attestation: I was available for consultation during this patient's emergency department encounter
--- NOTE | 2018-04-29 15:55 | DI.RAD.S_ITS ---
PROCEDURE: XR CHEST 2V INDICATIONS: R. chest pain, cough TECHNIQUE: 2 views of the chest were acquired. COMPARISON: [facility], CR, XR CHEST 1 VIEW, 04/27/2018, 10:05. [facility], CR, XR CHEST 1 VIEW, 04/27/2018, 12:07. FINDINGS: Surgical changes and devices: None. Lungs and pleura: Increased mild patchy airspace opacity at the bilateral lung bases. No pleural effusions or pneumothorax. Mediastinum: Mediastinal contours are normal. Heart size is normal. Bones and chest wall: No suspicious bony abnormalities. Soft tissues appear unremarkable. IMPRESSION: Increased bibasilar pneumonia. Follow up plain films of the chest are recommended to ensure resolution, and to exclude underlying or central malignancy. Dictated by: Kristian Bolton M.D. on 04/29/2018 at 16:25 Approved by: Kristian Bolton M.D. on 04/29/2018 at 16:26
[2018-04-29 16:26] VITALS: BP 135/68; PULSE 98; RESP 20; O2SAT 98
[2018-04-29 16:30] VITALS: BP 132/69; PULSE 96; RESP 18; O2SAT 96
[2018-04-29 17:00] VITALS: BP 135/75; PULSE 100; RESP 18; O2SAT 100
[2018-04-29] MEDS: CODEINE/GUAIFENESIN LIQUID 5ML UDC 10 ML PO (17:08)
[2018-04-29 17:30] VITALS: BP 134/79; PULSE 95; RESP 19; O2SAT 98
[2018-04-29 18:19] VITALS: BP 135/78; PULSE 94; RESP 18; O2SAT 98
== END 2018-04-29 18:19 | disposition home or self-care (01) ==
PROVIDERS: Emergency Provider Internal Medicine; Family Provider Family Medicine; PCP Family Medicine
DX: J18.9 Pneumonia, unspecified organism (principal)
CPT/HCPCS: 71046; 93005; 99283; 99284

== ENCOUNTER 2018-05-30 15:08 | Emergency (ER) | payer OTHER, SELFPAY ==
[2018-05-30 15:10] VITALS: BP 150/86; PULSE 110; RESP 13; TEMP 36.7; O2SAT 100
--- NOTE | 2018-05-30 15:14 | ED.EXTPRO ---
HPI - Extremity Problem <YASMANI Paredes - Last Filed: 05/30/18 22:07> General Chief complaint: Extremity Problem,Nontraumatic Stated complaint: left shoulder pain, thinks sepsis Time Seen by Provider: 05/30/18 15:14 Source: patient Mode of arrival: ambulatory Limitations: no limitations History of Present Illness HPI Narrative: 52-year-old female with history of interstitial cystitis that has a bypass urostomy and is an everyday smoker here for complaint of left shoulder pain over the past 2-3 days. She denies any shoulder pain trauma. She reports increased pain with movement of the shoulder or sleeping on the left shoulder. She states she is concerned about sepsis as she has had sepsis before. She denies any fevers or chills. She does report having some nausea earlier today. She also reports that she has had some whitish infiltrate to her urine over the past few days as well. No flank pain. Related Data Home Medications Medication Instructions Recorded Confirmed albuterol sulfate [Proventil HFA] 2 puff INH Q4HP PRN #0 01/08/13 09/26/17 hydroxyzine HCl 25 mg PO TID PRN #0 01/08/13 05/30/18 magnesium oxide 400 mg PO BEDTIME #0 tab 01/08/13 05/30/18 duloxetine 60 mg PO DAILY #0 07/04/17 05/30/18 gabapentin [Neurontin] 600 mg PO TID #0 07/04/17 05/30/18 multivitamin [Multiple Vitamins] 1 tab PO QDAY #0 07/04/17 09/26/17 zolpidem [Ambien] 10 mg PO HS PRN #0 07/04/17 05/30/18 Probiotic 1 tab PO BID 09/26/17 09/26/17 amitriptyline 150 mg PO BEDTIME 09/26/17 05/30/18 insulin NPH isoph U-100 human 15 units SUB-Q BEDTIME 09/26/17 05/30/18 [Humulin N NPH Insulin KwikPen] lisinopril 10 mg PO DAILY 09/26/17 05/30/18 omeprazole 20 mg PO BID 09/26/17 05/30/18 ondansetron 1 tab TRANSLINGUAL Q6H PRN 09/26/17 05/30/18 potassium chloride 20 meq PO QNOON 09/26/17 05/30/18 rivaroxaban [Xarelto] 20 mg PO DAILY 09/26/17 09/26/17 vitamin E 1 cap PO DAILY 09/26/17 09/26/17 lorazepam 0.5 mg PO BID PRN 05/30/18 05/30/18 Previous Rx's Medication Instructions Recorded oxycodone-acetaminophen 1 tab PO Q4-6H PRN #15 tab 02/18/18 hydrocodone-acetaminophen [[place]] 1 tab PO Q4-6H PRN #6 tab 04/02/18 Allergies Allergy/AdvReac Type Severity Reaction Status Date / Time mupirocin Allergy Unknown Verified 05/30/18 15:18 naproxen Allergy Unknown Verified 05/30/18 15:18 Penicillins Allergy Unknown SINCE Verified 05/30/18 15:18 CHILDHOOD droperidol AdvReac Unknown Verified 05/30/18 15:18 fenofibrate [FENOFIBRATE] AdvReac Unknown Verified 05/30/18 15:18 ibuprofen AdvReac Unknown NAUSEA Verified 05/30/18 15:18 metformin [METFORMIN] AdvReac Unknown Verified 05/30/18 15:18 metoclopramide AdvReac Unknown BECAME Verified 05/30/18 15:18 JITTERY AND ANXIOUS nitrofurantoin AdvReac Unknown NAUSEA Verified 05/30/18 15:18 Review of Systems <YASMANI Paredes - Last Filed: 05/30/18 22:07> Constitutional Denies chills, Denies fever(s), Denies lethargy and Denies weakness Eyes Denies change in vision, Denies eye discharge, Denies irritation and Denies loss of vision ENT Ears, Nose, Mouth, and Throat: Denies change in voice, Denies neck pain and Denies sore throat Cardiovascular Denies chest pain, Denies irregular heart rhythm, Denies lightheadedness, Denies palpitations, Denies dyspnea, Denies dyspnea on exertion and Denies orthopnea Respiratory Denies cough, Denies dyspnea, Denies dyspnea on exertion and Denies wheezing Gastrointestinal Gastrointestinal: Denies abdominal pain, Denies change in bowel habits, Denies diarrhea, Denies nausea and Denies vomiting Genitourinary Denies hematuria, Denies flank pain, Denies urinary incontinence and Denies urinary urgency Musculoskeletal Denies neck pain Comments: Left shoulder pain Integumentary/Breasts Denies pruritus, Denies erythema, Denies rash and Denies wounds Neurologic Denies loss of vision and Denies weakness Endocrine Denies palpitations Hematologic/Lymphatic Denies easy bruising Allergic/Immunologic Denies wheezing PFSH <YASMANI Paredes - Last Filed: 05/30/18 22:07> Medical History Anxiety (Chronic) Endometriosis (Chronic) Fibromyalgia (Chronic) Heart palpitations (Chronic) History of COPD (Chronic) History of asthma (Chronic) History of chronic hypertension (Chronic) History of depression (Chronic) History of gastrointestinal ulcer (Chronic) History of kidney stones (Chronic) History of migraine (Chronic) History of panic attacks (Chronic) History of type 2 diabetes mellitus (Chronic) Interstitial cystitis (Chronic) Port-a-cath in place (Chronic) UTI (urinary tract infection) (Chronic) Surgical History S/P appendectomy (Resolved) Status post hysterectomy (Resolved) Family History Other Family history non-contributory Social History Smoking Status: Current every day smoker Social History Smoking Status: Current every day smoker Exam <YASMANI Paredes - Last Filed: 05/30/18 22:07> Initial Vital Signs Initial Vital Signs: Vital Signs Temperature 98.1 F 05/30/18 15:10 Pulse Rate 110 H 05/30/18 15:10 Respiratory Rate 13 05/30/18 15:10 Blood Pressure 150/86 H 05/30/18 15:10 Pulse Oximetry 100 05/30/18 15:10 Const General: cooperative and well developed Nutritional Appearance: well nourished Orientation: alert, awake, oriented x3 and not confused HENIA Mouth: oral mucosae normal and mucous membranes abnormal Eyes General: appearance normal, both eyes and all related structures Eyelids: eyelids normal Conjunctivae: conjunctivae normal Sclera: sclerae normal Pupils: PERRL EOM: EOM intact bilaterally Resp Effort & Inspection: normal respiratory effort, able to speak in complete sentences, no respiratory distress and no use of accessory muscles Auscultation: clear to auscultation bilaterally, no rales, no rhonchi and no wheezes Cardio Rate: regular rate Rhythm: regular rhythm Heart Sounds: no click, no gallops, no murmurs and no rubs GI Inspection: non-distended Palpation: soft, no hepatosplenomegaly, No guarding, No pulsatile mass and No tender Auscultation: normal bowel sounds Other: stoma for urostomy appears healthy and no signs of infection. Skin General: no rashes or lesions noted, No jaundice and No petechiae Neuro General: alert, oriented x3, gait normal and no focal motor deficits Speech: speech normal Extrem Other: Left shoulder with no signs of trauma. No deformities. No ecchymosis. No swelling. Distal sensation is intact. Distal pulses are intact. Distal range of motion is in <Brenton Drew DO - Last Filed: 05/31/18 07:15> Initial Vital Signs Initial Vital Signs: Vital Signs Temperature 98.1 F 05/30/18 15:10 Pulse Rate 110 H 05/30/18 15:10 Respiratory Rate 13 05/30/18 15:10 Blood Pressure 150/86 H 05/30/18 15:10 Pulse Oximetry 100 05/30/18 15:10 Course <YASMANI Paredes - Last Filed: 05/30/18 22:07> Orders Ordered: Discontinued Medications Hydromorphone HCl (Dilaudid) 1 mg IV NOW ONE Stop: 05/30/18 15:31 Last Admin: 05/30/18 15:57 Dose: 1 mg Sodium Chloride (Normal Saline 0.9%) 1,000 mls @ 1,000 mls/hr IV BOLUS ONE Stop: 05/30/18 16:29 Last Infusion: 05/30/18 16:54 Dose: 0 mls/hr Admin: 05/30/18 15:53 Dose: 1,000 mls/hr Vital Signs - 8 hr 05/30/18 15:10 05/30/18 16:13 05/30/18 17:50 Temperature 98.1 F Pulse Rate 110 H 102 H 96 H Pulse Rate [Left Radial] 105 H Respiratory Rate 13 18 18 Blood Pressure 150/86 H Blood Pressure [Right Arm] 145/80 H 138/78 Pulse Oximetry 100 96 98 <Brenton Drew DO - Last Filed: 05/31/18 07:15> Orders Ordered: Discontinued Medications Hydromorphone HCl (Dilaudid) 1 mg IV NOW ONE Stop: 05/30/18 15:31 Last Admin: 05/30/18 15:57 Dose: 1 mg Sodium Chloride (Normal Saline 0.9%) 1,000 mls @ 1,000 mls/hr IV BOLUS ONE Stop: 05/30/18 16:29 Last Infusion: 05/30/18 16:54 Dose: 0 mls/hr Admin: 05/30/18 15:53 Dose: 1,000 mls/hr Vital Signs - 8 hr 05/30/18 15:10 05/30/18 16:13 05/30/18 17:50 Temperature 98.1 F Pulse Rate 110 H 102 H 96 H Pulse Rate [Left Radial] 105 H Respiratory Rate 13 18 18 Blood Pressure 150/86 H Blood Pressure [Right Arm] 145/80 H 138/78 Pulse Oximetry 100 96 98 MDM - Extremity (Nontraumatic) <YASMANI Paredes - Last Filed: 05/30/18 22:07> Lab Data Result diagrams: 05/30/18 15:45 05/30/18 15:45 Lab Results 05/30/18 05/30/18 05/30/18 Range/Units 15:45 15:45 15:45 WBC 7.3 (4.5-11.0) X10^3/uL RBC 3.76 L (4.0-5.2) X10^6/uL Hgb 11.6 L (12.0-16.0) g/dL Hct 35.0 L (36-46) % MCV 93.1 (80-100) fL MCH 30.9 (26-34) PG MCHC 33.2 (30-36) % RDW 13.3 (11.6-14.8) % Plt Count 309 (150-400) X10^3/uL Neut % (Auto) 59.0 (50-75) % Lymph % (Auto) 33.6 (25-40) % [place] % (Auto) 5.6 (3-14) % Eos % (Auto) 1.0 L (2-4) % Baso % (Auto) 0.8 (0-2) % Neut # (Auto) 4300 (0079-8031) /uL Lymph # (Auto) 2500 (8039-6079) /uL [place] # (Auto) 400 (0-900) /uL Eos # (Auto) 100 (0-450) /uL Baso # (Auto) 100 (0-100) /uL Sodium 135 L (137-145) mmol/L Potassium 4.2 (3.4-5.1) mmol/L Chloride 104 (98-107) mmol/L Carbon Dioxide 21 L (22-32) mmol/L BUN 13 (7-17) mg/dL Creatinine 0.60 (0.52-1.04) mg/dL Estimated GFR > 60.0 (>60) mL/min BUN/Creatinine Ratio 21.7 (6-22) Glucose 415 H (70-100) mg/dL Lactate (0.7-2.1) mmol/L Calcium 9.1 (8.4-10.2) mg/dL Total Bilirubin 0.2 (0.2-1.3) mg/dL AST 15 (14-36) IU/L ALT 16 (9-52) IU/L Alkaline Phosphatase 94 (38-126) U/L Total Protein 7.2 (6.3-8.2) g/dL Albumin 4.2 (3.5-5.0) g/dL Globulin 3.0 (1.7-4.1) g/dL Albumin/Globulin Ratio 1.4 (1.0-2.8) Procalcitonin < 0.05 (<0.5) ng/mL Urine Color Urine Appearance Urine pH (4.5-8.0) Ur Specific [place] (1.000-1.035) Urine Protein (Negative) Urine Glucose (UA) (Negative) g/dL Urine Ketones (NEGATIVE) Urine Occult Blood (Negative) Urine Nitrate (Negative) Urine Bilirubin (NEGATIVE) Urine Urobilinogen (0.2) E.U./dL Ur Leukocyte Esterase (NEGATIVE) Urine RBC (0-5/HPF) Urine WBC (0-5/HPF) Ur Squamous Epith Cells Amorphous Sediment Urine Bacteria (None) Granular Casts (None) Urine Mucus (Negative) Ur Culture Indicated? 05/30/18 05/30/1819 Range/Units 15:45 15:45 17:06 WBC (4.5-11.0) X10^3/uL RBC (4.0-5.2) X10^6/uL Hgb (12.0-16.0) g/dL Hct (36-46) % MCV (80-100) fL MCH (26-34) PG MCHC (30-36) % RDW (11.6-14.8) % Plt Count (150-400) X10^3/uL Neut % (Auto) (50-75) % Lymph % (Auto) (25-40) % [place] % (Auto) (3-14) % Eos % (Auto) (2-4) % Baso % (Auto) (0-2) % Neut # (Auto) (5007-3005) /uL Lymph # (Auto) (7116-2968) /uL [place]inger # (Auto) (0-900) /uL Eos # (Auto) (0-450) /uL Baso # (Auto) (0-100) /uL Sodium (137-145) mmol/L Potassium (3.4-5.1) mmol/L Chloride (98-107) mmol/L Carbon Dioxide (22-32) mmol/L BUN (7-17) mg/dL Creatinine (0.52-1.04) mg/dL Estimated GFR (>60) mL/min BUN/Creatinine Ratio (6-22) Glucose (70-100) mg/dL Lactate 2.6 H 1.9 (0.7-2.1) mmol/L Calcium (8.4-10.2) mg/dL Total Bilirubin (0.2-1.3) mg/dL AST (14-36) IU/L ALT (9-52) IU/L Alkaline Phosphatase (38-126) U/L Total Protein (6.3-8.2) g/dL Albumin (3.5-5.0) g/dL Globulin (1.7-4.1) g/dL Albumin/Globulin Ratio (1.0-2.8) Procalcitonin (<0.5) ng/mL Urine Color Yellow Urine Appearance Sl cloudy Urine pH 6.5 (4.5-8.0) Ur Specific [place] 1.010 (1.000-1.035) Urine Protein Negative (Negative) Urine Glucose (UA) 2+ H (Negative) g/dL Urine Ketones Negative (NEGATIVE) Urine Occult Blood Trace-lysed (Negative) Urine Nitrate Positive H (Negative) Urine Bilirubin Negative (NEGATIVE) Urine Urobilinogen 0.2 (0.2) E.U./dL Ur Leukocyte Esterase Negative (NEGATIVE) Urine RBC 1-5/hpf (0-5/HPF) Urine WBC 5-10/hpf H (0-5/HPF) Ur Squamous Epith Cells 0-1 /hpf Amorphous Sediment 2+ Urine Bacteria Moderate (10-30) H (None) Granular Casts 1-5/lpf (None) Urine Mucus 1+ H (Negative) Ur Culture Indicated? Specimen cultured Point of Care Testing Glucose POC 282 Imaging Data Chest x-ray: Radiologist's impression: [address] [address] XRay Report Signed Patient: Melvi Gibbs [facility]#: [id number] : 1965Acct:[id number] Age/Sex: 52 / FDate of Service: 05/30/18 Loc: ED Accession Number: [id number] Procedure: XR chest 1V Ordering Provider: Jose Antonio Medeiros PROCEDURE: XR CHEST 1V INDICATIONS: Recent pneumonia patient concerned about sepsis TECHNIQUE: One view of the chest was acquired. COMPARISON: [facility], , XR CHEST 1V, 08/21/2017, 11:35. FINDINGS: Surgical changes and devices: None. Lungs and pleura: Lungs are clear. No pleural effusions or pneumothorax. Mediastinum: Mediastinal contours appear normal. Heart size is normal. Bones and chest wall: No suspicious bony lesions. Overlying soft tissues appear unremarkable. IMPRESSION: No acute cardiopulmonary disease process. Dictated by: Tara Oshea MD, PhD on 05/30/2018 at 16:00 Approved by: Tara Oshea MD, PhD on 05/30/2018 at 16:01 Left shoulder x-ray : My impression: [address] [address] XRay Report Signed Patient: Melvi Gibbs [facility]#: [id number] : 1965Acct:[id number] Age/Sex: 52 / FDate of Service: 05/30/18 Loc: ED Accession Number: [id number] Procedure: XR shoulder LT min 2V Ordering Provider: Jose Antonio Medeiros PROCEDURE: XR SHOULDER LT MIN 2V INDICATIONS: pain to left shoulder TECHNIQUE: 3 views of the shoulder were acquired. COMPARISON: None. FINDINGS: Bones: No fractures or dislocations. No suspicious bony lesions. Visualized ribs appear intact. Soft tissues: No suspicious soft tissue calcifications. IMPRESSION: No acute cardiopulmonary disease process. Dictated by: Tara Oshea MD, PhD on 05/30/2018 at 16:01 Approved by: Tara Oshea MD, PhD on 05/30/2018 at 16:02 [facility] Narrative Medical decision making narrative: x-ray the left shoulder was obtained was negative for any acute findings. X-ray of the chest was also obtained was also negative for any acute findings. CBC shows mild anemia however is consistent with her prior lab values. Otherwise is unremarkable. Chemistry shows elevated glucose at 415. lactate was elevated at 2.6. After 1 L of fluid these levels were rechecked and was rib reduced to 280 and to 1.9. No signs of infection are apparent at this current time. Urinalysis shows nitrates and WBCs will hold until return of urine cultures which are pending to treat at this time as due to urostomy believe she is colonized. follow up with primary care provider next couple days for re-evaluation. pain into the left shoulder appears as a shoulder strain. Rest area. Use already prescribed pain management regimen as needed for any discomfort. Return emergency room for any worsening symptoms. <Brenton Drew, - Last Filed: 05/31/18 07:15> Lab Data Lab Results 05/30/18 05/30/18 05/30/18 Range/Units 15:45 15:45 15:45 WBC 7.3 (4.5-11.0) X10^3/uL RBC 3.76 L (4.0-5.2) X10^6/uL Hgb 11.6 L (12.0-16.0) g/dL Hct 35.0 L (36-46) % MCV 93.1 (80-100) fL MCH 30.9 (26-34) PG MCHC 33.2 (30-36) % RDW 13.3 (11.6-14.8) % Plt Count 309 (150-400) X10^3/uL Neut % (Auto) 59.0 (50-75) % Lymph % (Auto) 33.6 (25-40) % [place] % (Auto) 5.6 (3-14) % Eos % (Auto) 1.0 L (2-4) % Baso % (Auto) 0.8 (0-2) % Neut # (Auto) 4300 (3625-5079) /uL Lymph # (Auto) 2500 (9449-1753) /uL [place] # (Auto) 400 (0-900) /uL Eos # (Auto) 100 (0-450) /uL Baso # (Auto) 100 (0-100) /uL Sodium 135 L (137-145) mmol/L Potassium 4.2 (3.4-5.1) mmol/L Chloride 104 (98-107) mmol/L Carbon Dioxide 21 L (22-32) mmol/L BUN 13 (7-17) mg/dL Creatinine 0.60 (0.52-1.04) mg/dL Estimated GFR > 60.0 (>60) mL/min BUN/Creatinine Ratio 21.7 (6-22) Glucose 415 H (70-100) mg/dL Lactate (0.7-2.1) mmol/L Calcium 9.1 (8.4-10.2) mg/dL Total Bilirubin 0.2 (0.2-1.3) mg/dL AST 15 (14-36) IU/L ALT 16 (9-52) IU/L Alkaline Phosphatase 94 (38-126) U/L Total Protein 7.2 (6.3-8.2) g/dL Albumin 4.2 (3.5-5.0) g/dL Globulin 3.0 (1.7-4.1) g/dL Albumin/Globulin Ratio 1.4 (1.0-2.8) Procalcitonin < 0.05 (<0.5) ng/mL Urine Color Urine Appearance Urine pH (4.5-8.0) Ur Specific [place] (1.000-1.035) Urine Protein (Negative) Urine Glucose (UA) (Negative) g/dL Urine Ketones (NEGATIVE) Urine Occult Blood (Negative) Urine Nitrate (Negative) Urine Bilirubin (NEGATIVE) Urine Urobilinogen (0.2) E.U./dL Ur Leukocyte Esterase (NEGATIVE) Urine RBC (0-5/HPF) Urine WBC (0-5/HPF) Ur Squamous Epith Cells Amorphous Sediment Urine Bacteria (None) Granular Casts (None) Urine Mucus (Negative) Ur Culture Indicated? 05/30/18 05/30/18 05/30/18 Range/Units 15:45 15:45 17:06 WBC (4.5-11.0) X10^3/uL RBC (4.0-5.2) X10^6/uL Hgb (12.0-16.0) g/dL Hct (36-46) % MCV (80-100) fL MCH (26-34) PG MCHC (30-36) % RDW (11.6-14.8) % Plt Count (150-400) X10^3/uL Neut % (Auto) (50-75) % Lymph % (Auto) (25-40) % [place] % (Auto) (3-14) % Eos % (Auto) (2-4) % Baso % (Auto) (0-2) % Neut # (Auto) (1792-8736) /uL Lymph # (Auto) (2028-5479) /uL [place] # (Auto) (0-900) /uL Eos # (Auto) (0-450) /uL Baso # (Auto) (0-100) /uL Sodium (137-145) mmol/L Potassium (3.4-5.1) mmol/L Chloride (98-107) mmol/L Carbon Dioxide (22-32) mmol/L BUN (7-17) mg/dL Creatinine (0.52-1.04) mg/dL Estimated GFR (>60) mL/min BUN/Creatinine Ratio (6-22) Glucose (70-100) mg/dL Lactate 2.6 H 1.9 (0.7-2.1) mmol/L Calcium (8.4-10.2) mg/dL Total Bilirubin (0.2-1.3) mg/dL AST (14-36) IU/L ALT (9-52) IU/L Alkaline Phosphatase (38-126) U/L Total Protein (6.3-8.2) g/dL Albumin (3.5-5.0) g/dL Globulin (1.7-4.1) g/dL Albumin/Globulin Ratio (1.0-2.8) Procalcitonin (<0.5) ng/mL Urine Color Yellow Urine Appearance Sl cloudy Urine pH 6.5 (4.5-8.0) Ur Specific [place] 1.010 (1.000-1.035) Urine Protein Negative (Negative) Urine Glucose (UA) 2+ H (Negative) g/dL Urine Ketones Negative (NEGATIVE) Urine Occult Blood Trace-lysed (Negative) Urine Nitrate Positive H (Negative) Urine Bilirubin Negative (NEGATIVE) Urine Urobilinogen 0.2 (0.2) E.U./dL Ur Leukocyte Esterase Negative (NEGATIVE) Urine RBC 1-5/hpf (0-5/HPF) Urine WBC 5-10/hpf H (0-5/HPF) Ur Squamous Epith Cells 0-1 /hpf Amorphous Sediment 2+ Urine Bacteria Moderate (10-30) H (None) Granular Casts 1-5/lpf (None) Urine Mucus 1+ H (Negative) Ur Culture Indicated? Specimen cultured Point of Care Testing Glucose POC 282 Discharge Plan Departure Patient Disposition: Home Clinical Impression: Left shoulder strain Qualifiers: Encounter type: initial encounter Qualified Code(s): S46.912A - Strain of unspecified muscle, fascia and tendon at shoulder and upper arm level, left arm, initial encounter Discharge Date/Time: 05/30/18 18:12 Interventions: ED Discharge Assessment Last Done: 05/30/18 18:11 Instructions: DI for Shoulder Pain Activity Restrictions/Additional Instructions: imaging today was unremarkable. Laboratory results at for show that you had elevated lactate and also elevated blood sugar this most likely is due to decreased p.o. fluid intake after fluids were given in the emergency room these fingers normalized. No signs of infection are appreciated today. Urinalysis does show some white blood cells and some bacteria however this is most likely due to the urostomy. Urine culture is pending follow up with her primary care provider next couple days for re-evaluation. Pain in left shoulder presents as a shoulder strain. Rest area. Use currently prescribed pain management regimen as needed for any discomfort. for any worsening symptoms return to the emergency room. Prescriptions: No Action hydroxyzine HCl 25 MG tablet 25 mg PO TID PRN (Reason: Anxiety) Qty: 0 RF: 0 magnesium oxide 400 MG tablet 400 mg PO BEDTIME Qty: 0 RF: 0 albuterol sulfate [Proventil HFA] 90 MCG/PUFF HFA aerosol inhaler 2 puff INH Q4HP PRN (Reason: Shortness Of Breath) Qty: 0 RF: 0 duloxetine 60 MG capsule,delayed release(DR/EC) 60 mg PO DAILY Qty: 0 RF: 0 gabapentin [Neurontin] 300 MG capsule 600 mg PO TID Qty: 0 RF: 0 multivitamin [Multiple Vitamins] 1 EACH tablet 1 tab PO QDAY Qty: 0 RF: 0 zolpidem [Ambien] 10 MG tablet 10 mg PO HS PRN (Reason: Insomnia) Qty: 0 RF: 0 oxycodone-acetaminophen 5-325 mg tablet 1 tab PO Q4-6H PRN (Reason: pain) Qty: 15 RF: 0 lorazepam 0.5 mg tablet 0.5 mg PO BID PRN (Reason: Anxiety) RF: 0 amitriptyline 50 mg tablet 150 mg PO BEDTIME RF: 0 potassium chloride 20 mEq tablet,ER particles/crystals 20 meq PO QNOON RF: 0 lisinopril 10 mg tablet 10 mg PO DAILY RF: 0 omeprazole 20 mg capsule,delayed release(DR/EC) 20 mg PO BID RF: 0 ondansetron 4 mg tablet,disintegrating 1 tab Translingual Q6H PRN (Reason: Nausea) RF: 0 Humulin N NPH Insulin KwikPen 100 unit/mL (3 mL) insulin pen 15 units Sub-Q BEDTIME RF: 0 Xarelto 20 mg tablet 20 mg PO DAILY RF: 0 Probiotic 1 tab PO BID RF: 0 vitamin E 1 cap PO DAILY RF: 0 hydrocodone-acetaminophen [[place]] 5-325 mg tablet 1 tab PO Q4-6H PRN (Reason: pain) Qty: 6 RF: 0 Referrals: Fadi Ko DO [Primary Care Provider] - <Brenton Drew DO - Last Filed: 05/31/18 07:15> Cosign ED Attending Cosignature Attestation: I was available for consultation during this patient's emergency department encounter
--- NOTE | 2018-05-30 15:30 | DI.RAD.S_ITS ---
PROCEDURE: XR CHEST 1V INDICATIONS: Recent pneumonia patient concerned about sepsis TECHNIQUE: One view of the chest was acquired. COMPARISON: [facility], CR, XR CHEST 1V, 08/21/2017, 11:35. FINDINGS: Surgical changes and devices: None. Lungs and pleura: Lungs are clear. No pleural effusions or pneumothorax. Mediastinum: Mediastinal contours appear normal. Heart size is normal. Bones and chest wall: No suspicious bony lesions. Overlying soft tissues appear unremarkable. IMPRESSION: No acute cardiopulmonary disease process. Dictated by: Tara Oshea MD, PhD on 05/30/2018 at 16:00 Approved by: Tara Oshea MD, PhD on 05/30/2018 at 16:01
--- NOTE | 2018-05-30 15:30 | DI.RAD.S_ITS ---
PROCEDURE: XR SHOULDER LT MIN 2V INDICATIONS: pain to left shoulder TECHNIQUE: 3 views of the shoulder were acquired. COMPARISON: None. FINDINGS: Bones: No fractures or dislocations. No suspicious bony lesions. Visualized ribs appear intact. Soft tissues: No suspicious soft tissue calcifications. IMPRESSION: No acute cardiopulmonary disease process. Dictated by: Tara Oshea MD, PhD on 05/30/2018 at 16:01 Approved by: Tara Oshea MD, PhD on 05/30/2018 at 16:02
[2018-05-30] MEDS: SODIUM CHLORIDE 0.9% 1,000 ML 1000 ML IV (15:53)
[2018-05-30 15:54] LABS: Add Manual Diff / Slide Review NO; Basophils Absolute Auto 100 /uL (0-100); Basophils Percent Auto 0.8 % (0-2); Eosinophils Absolute Auto 100 /uL (0-450); Hemoglobin 11.6 g/dL (12.0-16.0); Lymphocytes Absolute Auto 2500 /uL (1100-4500); Lymphocytes Percent Auto 33.6 % (25-40); Mean Corpuscular HGB Conc 33.2 % (30-36); Mean Corpuscular Hemoglobin 30.9 PG (26-34); Mean Corpuscular Volume 93.1 fL (80-100); Monocytes Absolute Auto 400 /uL (0-900); Monocytes Percent Auto 5.6 % (3-14); Neutrophils Absolute Auto 4300 /uL (1500-7000); Platelet Count 309 X10^3/uL (150-400); Red Blood Cell Count 3.76 X10^6/uL (4.0-5.2); Red Cell Distribution Width 13.3 % (11.6-14.8); White Blood Cell Count 7.3 X10^3/uL (4.5-11.0)
[2018-05-30 15:57] LABS: Appearance Urine UA SL CLOUDY; Bilirubin Urine UA NEGATIVE (NEGATIVE); Color Urine UA YELLOW; Glucose Urine UA 2+ g/dL (Negative); Ketones Urine UA NEGATIVE (NEGATIVE); Leukocyte Esterase Urine UA NEGATIVE (NEGATIVE); Nitrite Urine UA POSITIVE (Negative); Occult Blood Urine UA TRACE-LYSED (Negative); Protein Urine UA NEGATIVE (Negative); Urobilinogen Urine UA 0.2 E.U./dL (0.2); pH Urine UA 6.5 (4.5-8.0)
[2018-05-30] MEDS: HYDROMORPHONE 1 MG INJ IV (15:57)
[2018-05-30 16:08] LABS: Lactate (Lactic Acid) 2.6 mmol/L (0.7-2.1)
[2018-05-30 16:09] LABS: Alanine Aminotransferase 16 IU/L (9-52); Albumin 4.2 g/dL (3.5-5.0); Albumin Globulin Ratio 1.4 (1.0-2.8); Alkaline Phosphatase 94 U/L (38-126); Aspartate Aminotransferase 15 IU/L (14-36); BUN Creatinine Ratio 21.7 (6-22); Bilirubin Total 0.2 mg/dL (0.2-1.3); Blood Urea Nitrogen 13 mg/dL (7-17); Calcium 9.1 mg/dL (8.4-10.2); Carbon Dioxide 21 mmol/L (22-32); Chloride 104 mmol/L (98-107); Estimated Glomerular Filt Rate > 60.0 mL/min (>60); Glucose 415 mg/dL (70-100); HEMOLYSIS < 15 (0-50); Potassium 4.2 mmol/L (3.4-5.1); Sodium 135 mmol/L (137-145); Total Protein 7.2 g/dL (6.3-8.2)
[2018-05-30 16:13] VITALS: BP 145/80; PULSE 102; PULSE 105; RESP 18; O2SAT 96
[2018-05-30 16:13] LABS: RBC Urine 1-5/HPF (0-5/HPF); Squamous Epithelial Cell Urine 0-1 /HPF; WBC Urine 5-10/HPF (0-5/HPF)
[2018-05-30 16:14] LABS: Amorphous Sediment Urine 2+; Bacteria Urine Moderate (10-30); Culture Indicated Urine Specimen Cultured; Granular Casts Urine 1-5/LPF; Mucus Urine 1+ (Negative)
[2018-05-30 16:30] LABS: Procalcitonin < 0.05 ng/mL (<0.5)
[2018-05-30 17:29] LABS: Lactate (Lactic Acid) 1.9 mmol/L (0.7-2.1)
--- NOTE | 2018-05-30 17:42 | ED_ITS ---
HPI - Extremity Problem <YASMANI Paredes - Last Filed: 05/30/18 22:07> General Chief complaint: Extremity Problem,Nontraumatic Stated complaint: left shoulder pain, thinks sepsis Time Seen by Provider: 05/30/18 15:14 Source: patient Mode of arrival: ambulatory Limitations: no limitations History of Present Illness HPI Narrative: 52-year-old female with history of interstitial cystitis that has a bypass urostomy and is an everyday smoker here for complaint of left shoulder pain over the past 2-3 days. She denies any shoulder pain trauma. She reports increased pain with movement of the shoulder or sleeping on the left shoulder. She states she is concerned about sepsis as she has had sepsis before. She denies any fevers or chills. She does report having some nausea earlier today. She also reports that she has had some whitish infiltrate to her urine over the past few days as well. No flank pain. Related Data Home Medications Medication Instructions Recorded Confirmed albuterol sulfate [Proventil HFA] 2 puff INH Q4HP PRN #0 01/08/13 09/26/17 hydroxyzine HCl 25 mg PO TID PRN #0 01/08/13 05/30/18 magnesium oxide 400 mg PO BEDTIME #0 tab 01/08/13 05/30/18 duloxetine 60 mg PO DAILY #0 07/04/17 05/30/18 gabapentin [Neurontin] 600 mg PO TID #0 07/04/17 05/30/18 multivitamin [Multiple Vitamins] 1 tab PO QDAY #0 07/04/17 09/26/17 zolpidem [Ambien] 10 mg PO HS PRN #0 07/04/17 05/30/18 Probiotic 1 tab PO BID 09/26/17 09/26/17 amitriptyline 150 mg PO BEDTIME 09/26/17 05/30/18 insulin NPH isoph U-100 human 15 units SUB-Q BEDTIME 09/26/17 05/30/18 [Humulin N NPH Insulin KwikPen] lisinopril 10 mg PO DAILY 09/26/17 05/30/18 omeprazole 20 mg PO BID 09/26/17 05/30/18 ondansetron 1 tab TRANSLINGUAL Q6H PRN 09/26/17 05/30/18 potassium chloride 20 meq PO QNOON 09/26/17 05/30/18 rivaroxaban [Xarelto] 20 mg PO DAILY 09/26/17 09/26/17 vitamin E 1 cap PO DAILY 09/26/17 09/26/17 lorazepam 0.5 mg PO BID PRN 05/30/18 05/30/18 Previous Rx's Medication Instructions Recorded oxycodone-acetaminophen 1 tab PO Q4-6H PRN #15 tab 02/18/18 hydrocodone-acetaminophen [[place]] 1 tab PO Q4-6H PRN #6 tab 04/02/18 Allergies Allergy/AdvReac Type Severity Reaction Status Date / Time mupirocin Allergy Unknown Verified 05/30/18 15:18 naproxen Allergy Unknown Verified 05/30/18 15:18 Penicillins Allergy Unknown SINCE Verified 05/30/18 15:18 CHILDHOOD droperidol AdvReac Unknown Verified 05/30/18 15:18 fenofibrate [FENOFIBRATE] AdvReac Unknown Verified 05/30/18 15:18 ibuprofen AdvReac Unknown NAUSEA Verified 05/30/18 15:18 metformin [METFORMIN] AdvReac Unknown Verified 05/30/18 15:18 metoclopramide AdvReac Unknown BECAME Verified 05/30/18 15:18 JITTERY AND ANXIOUS nitrofurantoin AdvReac Unknown NAUSEA Verified 05/30/18 15:18 Review of Systems <YASMANI Paredes - Last Filed: 05/30/18 22:07> Constitutional Denies chills, Denies fever(s), Denies lethargy and Denies weakness Eyes Denies change in vision, Denies eye discharge, Denies irritation and Denies loss of vision ENT Ears, Nose, Mouth, and Throat: Denies change in voice, Denies neck pain and Denies sore throat Cardiovascular Denies chest pain, Denies irregular heart rhythm, Denies lightheadedness, Denies palpitations, Denies dyspnea, Denies dyspnea on exertion and Denies orthopnea Respiratory Denies cough, Denies dyspnea, Denies dyspnea on exertion and Denies wheezing Gastrointestinal Gastrointestinal: Denies abdominal pain, Denies change in bowel habits, Denies diarrhea, Denies nausea and Denies vomiting Genitourinary Denies hematuria, Denies flank pain, Denies urinary incontinence and Denies urinary urgency Musculoskeletal Denies neck pain Comments: Left shoulder pain Integumentary/Breasts Denies pruritus, Denies erythema, Denies rash and Denies wounds Neurologic Denies loss of vision and Denies weakness Endocrine Denies palpitations Hematologic/Lymphatic Denies easy bruising Allergic/Immunologic Denies wheezing PFSH <YASMANI Paredes - Last Filed: 05/30/18 22:07> Medical History Anxiety (Chronic) Endometriosis (Chronic) Fibromyalgia (Chronic) Heart palpitations (Chronic) History of COPD (Chronic) History of asthma (Chronic) History of chronic hypertension (Chronic) History of depression (Chronic) History of gastrointestinal ulcer (Chronic) History of kidney stones (Chronic) History of migraine (Chronic) History of panic attacks (Chronic) History of type 2 diabetes mellitus (Chronic) Interstitial cystitis (Chronic) Port-a-cath in place (Chronic) UTI (urinary tract infection) (Chronic) Surgical History S/P appendectomy (Resolved) Status post hysterectomy (Resolved) Family History Other Family history non-contributory Social History Smoking Status: Current every day smoker Social History Smoking Status: Current every day smoker Exam <YASMANI Paredes - Last Filed: 05/30/18 22:07> Initial Vital Signs Initial Vital Signs: Vital Signs Temperature 98.1 F 05/30/18 15:10 Pulse Rate 110 H 05/30/18 15:10 Respiratory Rate 13 05/30/18 15:10 Blood Pressure 150/86 H 05/30/18 15:10 Pulse Oximetry 100 05/30/18 15:10 Const General: cooperative and well developed Nutritional Appearance: well nourished Orientation: alert, awake, oriented x3 and not confused HENMA Mouth: oral mucosae normal and mucous membranes abnormal Eyes General: appearance normal, both eyes and all related structures Eyelids: eyelids normal Conjunctivae: conjunctivae normal Sclera: sclerae normal Pupils: PERRL EOM: EOM intact bilaterally Resp Effort & Inspection: normal respiratory effort, able to speak in complete sentences, no respiratory distress and no use of accessory muscles Auscultation: clear to auscultation bilaterally, no rales, no rhonchi and no wheezes Cardio Rate: regular rate Rhythm: regular rhythm Heart Sounds: no click, no gallops, no murmurs and no rubs GI Inspection: non-distended Palpation: soft, no hepatosplenomegaly, No guarding, No pulsatile mass and No tender Auscultation: normal bowel sounds Other: stoma for urostomy appears healthy and no signs of infection. Skin General: no rashes or lesions noted, No jaundice and No petechiae Neuro General: alert, oriented x3, gait normal and no focal motor deficits Speech: speech normal Extrem Other: Left shoulder with no signs of trauma. No deformities. No ecchymosis. No swelling. Distal sensation is intact. Distal pulses are intact. Distal range of motion is in <Brenton Drew DO - Last Filed: 05/31/18 07:15> Initial Vital Signs Initial Vital Signs: Vital Signs Temperature 98.1 F 05/30/18 15:10 Pulse Rate 110 H 05/30/18 15:10 Respiratory Rate 13 05/30/18 15:10 Blood Pressure 150/86 H 05/30/18 15:10 Pulse Oximetry 100 05/30/18 15:10 Course <YASMANI Paredes - Last Filed: 05/30/18 22:07> Orders Ordered: Discontinued Medications Hydromorphone HCl (Dilaudid) 1 mg IV NOW ONE Stop: 05/30/18 15:31 Last Admin: 05/30/18 15:57 Dose: 1 mg Sodium Chloride (Normal Saline 0.9%) 1,000 mls @ 1,000 mls/hr IV BOLUS ONE Stop: 05/30/18 16:29 Last Infusion: 05/30/18 16:54 Dose: 0 mls/hr Admin: 05/30/18 15:53 Dose: 1,000 mls/hr Vital Signs - 8 hr 05/30/18 15:10 05/30/18 16:13 05/30/18 17:50 Temperature 98.1 F Pulse Rate 110 H 102 H 96 H Pulse Rate [Left Radial] 105 H Respiratory Rate 13 18 18 Blood Pressure 150/86 H Blood Pressure [Right Arm] 145/80 H 138/78 Pulse Oximetry 100 96 98 <Brenton Drew DO - Last Filed: 05/31/18 07:15> Orders Ordered: Discontinued Medications Hydromorphone HCl (Dilaudid) 1 mg IV NOW ONE Stop: 05/30/18 15:31 Last Admin: 05/30/18 15:57 Dose: 1 mg Sodium Chloride (Normal Saline 0.9%) 1,000 mls @ 1,000 mls/hr IV BOLUS ONE Stop: 05/30/18 16:29 Last Infusion: 05/30/18 16:54 Dose: 0 mls/hr Admin: 05/30/18 15:53 Dose: 1,000 mls/hr Vital Signs - 8 hr 05/30/18 15:10 05/30/18 16:13 05/30/18 17:50 Temperature 98.1 F Pulse Rate 110 H 102 H 96 H Pulse Rate [Left Radial] 105 H Respiratory Rate 13 18 18 Blood Pressure 150/86 H Blood Pressure [Right Arm] 145/80 H 138/78 Pulse Oximetry 100 96 98 MDM - Extremity (Nontraumatic) <YASMANI Paredes - Last Filed: 05/30/18 22:07> Lab Data Result diagrams: 05/30/18 15:45 05/30/18 15:45 Lab Results 05/30/18 05/30/18 05/30/18 Range/Units 15:45 15:45 15:45 WBC 7.3 (4.5-11.0) X10^3/uL RBC 3.76 L (4.0-5.2) X10^6/uL Hgb 11.6 L (12.0-16.0) g/dL Hct 35.0 L (36-46) % MCV 93.1 (80-100) fL MCH 30.9 (26-34) PG MCHC 33.2 (30-36) % RDW 13.3 (11.6-14.8) % Plt Count 309 (150-400) X10^3/uL Neut % (Auto) 59.0 (50-75) % Lymph % (Auto) 33.6 (25-40) % [place] % (Auto) 5.6 (3-14) % Eos % (Auto) 1.0 L (2-4) % Baso % (Auto) 0.8 (0-2) % Neut # (Auto) 4300 (0008-6763) /uL Lymph # (Auto) 2500 (8741-0205) /uL [place] # (Auto) 400 (0-900) /uL Eos # (Auto) 100 (0-450) /uL Baso # (Auto) 100 (0-100) /uL Sodium 135 L (137-145) mmol/L Potassium 4.2 (3.4-5.1) mmol/L Chloride 104 (98-107) mmol/L Carbon Dioxide 21 L (22-32) mmol/L BUN 13 (7-17) mg/dL Creatinine 0.60 (0.52-1.04) mg/dL Estimated GFR > 60.0 (>60) mL/min BUN/Creatinine Ratio 21.7 (6-22) Glucose 415 H (70-100) mg/dL Lactate (0.7-2.1) mmol/L Calcium 9.1 (8.4-10.2) mg/dL Total Bilirubin 0.2 (0.2-1.3) mg/dL AST 15 (14-36) IU/L ALT 16 (9-52) IU/L Alkaline Phosphatase 94 (38-126) U/L Total Protein 7.2 (6.3-8.2) g/dL Albumin 4.2 (3.5-5.0) g/dL Globulin 3.0 (1.7-4.1) g/dL Albumin/Globulin Ratio 1.4 (1.0-2.8) Procalcitonin < 0.05 (<0.5) ng/mL Urine Color Urine Appearance Urine pH (4.5-8.0) Ur Specific [place] (1.000-1.035) Urine Protein (Negative) Urine Glucose (UA) (Negative) g/dL Urine Ketones (NEGATIVE) Urine Occult Blood (Negative) Urine Nitrate (Negative) Urine Bilirubin (NEGATIVE) Urine Urobilinogen (0.2) E.U./dL Ur Leukocyte Esterase (NEGATIVE) Urine RBC (0-5/HPF) Urine WBC (0-5/HPF) Ur Squamous Epith Cells Amorphous Sediment Urine Bacteria (None) Granular Casts (None) Urine Mucus (Negative) Ur Culture Indicated? 05/30/18 05/30/1819 Range/Units 15:45 15:45 17:06 WBC (4.5-11.0) X10^3/uL RBC (4.0-5.2) X10^6/uL Hgb (12.0-16.0) g/dL Hct (36-46) % MCV (80-100) fL MCH (26-34) PG MCHC (30-36) % RDW (11.6-14.8) % Plt Count (150-400) X10^3/uL Neut % (Auto) (50-75) % Lymph % (Auto) (25-40) % [place] % (Auto) (3-14) % Eos % (Auto) (2-4) % Baso % (Auto) (0-2) % Neut # (Auto) (8939-9205) /uL Lymph # (Auto) (0873-2466) /uL [place] # (Auto) (0-900) /uL Eos # (Auto) (0-450) /uL Baso # (Auto) (0-100) /uL Sodium (137-145) mmol/L Potassium (3.4-5.1) mmol/L Chloride (98-107) mmol/L Carbon Dioxide (22-32) mmol/L BUN (7-17) mg/dL Creatinine (0.52-1.04) mg/dL Estimated GFR (>60) mL/min BUN/Creatinine Ratio (6-22) Glucose (70-100) mg/dL Lactate 2.6 H 1.9 (0.7-2.1) mmol/L Calcium (8.4-10.2) mg/dL Total Bilirubin (0.2-1.3) mg/dL AST (14-36) IU/L ALT (9-52) IU/L Alkaline Phosphatase (38-126) U/L Total Protein (6.3-8.2) g/dL Albumin (3.5-5.0) g/dL Globulin (1.7-4.1) g/dL Albumin/Globulin Ratio (1.0-2.8) Procalcitonin (<0.5) ng/mL Urine Color Yellow Urine Appearance Sl cloudy Urine pH 6.5 (4.5-8.0) Ur Specific [place] 1.010 (1.000-1.035) Urine Protein Negative (Negative) Urine Glucose (UA) 2+ H (Negative) g/dL Urine Ketones Negative (NEGATIVE) Urine Occult Blood Trace-lysed (Negative) Urine Nitrate Positive H (Negative) Urine Bilirubin Negative (NEGATIVE) Urine Urobilinogen 0.2 (0.2) E.U./dL Ur Leukocyte Esterase Negative (NEGATIVE) Urine RBC 1-5/hpf (0-5/HPF) Urine WBC 5-10/hpf H (0-5/HPF) Ur Squamous Epith Cells 0-1 /hpf Amorphous Sediment 2+ Urine Bacteria Moderate (10-30) H (None) Granular Casts 1-5/lpf (None) Urine Mucus 1+ H (Negative) Ur Culture Indicated? Specimen cultured Point of Care Testing Glucose POC 282 Imaging Data Chest x-ray: Radiologist's impression: [address] [address] XRay Report Signed Patient: Melvi Gibbs [facility]#: [id number] : 1965Acct:[id number] Age/Sex: 52 / FDate of Service: 05/30/18 Loc: ED Accession Number: [id number] Procedure: XR chest 1V Ordering Provider: Jose Antonio Medeiros PROCEDURE: XR CHEST 1V INDICATIONS: Recent pneumonia patient concerned about sepsis TECHNIQUE: One view of the chest was acquired. COMPARISON: [facility], , XR CHEST 1V, 08/21/2017, 11:35. FINDINGS: Surgical changes and devices: None. Lungs and pleura: Lungs are clear. No pleural effusions or pneumothorax. Mediastinum: Mediastinal contours appear normal. Heart size is normal. Bones and chest wall: No suspicious bony lesions. Overlying soft tissues appear unremarkable. IMPRESSION: No acute cardiopulmonary disease process. Dictated by: Tara Oshea MD, PhD on 05/30/2018 at 16:00 Approved by: Tara Oshea MD, PhD on 05/30/2018 at 16:01 Left shoulder x-ray : My impression: [address] [address] XRay Report Signed Patient: Melvi Gibbs [facility]#: [id number] : 1965Acct:[id number] Age/Sex: 52 / FDate of Service: 05/30/18 Loc: ED Accession Number: [id number] Procedure: XR shoulder LT min 2V Ordering Provider: Jose Antonio Medeiros PROCEDURE: XR SHOULDER LT MIN 2V INDICATIONS: pain to left shoulder TECHNIQUE: 3 views of the shoulder were acquired. COMPARISON: None. FINDINGS: Bones: No fractures or dislocations. No suspicious bony lesions. Visualized ribs appear intact. Soft tissues: No suspicious soft tissue calcifications. IMPRESSION: No acute cardiopulmonary disease process. Dictated by: Tara Oshea MD, PhD on 05/30/2018 at 16:01 Approved by: Tara Oshea MD, PhD on 05/30/2018 at 16:02 [facility] Narrative Medical decision making narrative: x-ray the left shoulder was obtained was negative for any acute findings. X-ray of the chest was also obtained was also negative for any acute findings. CBC shows mild anemia however is consistent with her prior lab values. Otherwise is unremarkable. Chemistry shows elevated glucose at 415. lactate was elevated at 2.6. After 1 L of fluid these levels were rechecked and was rib reduced to 280 and to 1.9. No signs of infection are apparent at this current time. Urinalysis shows nitrates and WBCs will hold until return of urine cultures which are pending to treat at this time as due to urostomy believe she is colonized. follow up with primary care provider next couple days for re-evaluation. pain into the left shoulder appears as a shoulder strain. Rest area. Use already prescribed pain management regimen as needed for any discomfort. Return emergency room for any worsening symptoms. <Brenton Drew, - Last Filed: 05/31/18 07:15> Lab Data Lab Results 05/30/18 05/30/18 05/30/18 Range/Units 15:45 15:45 15:45 WBC 7.3 (4.5-11.0) X10^3/uL RBC 3.76 L (4.0-5.2) X10^6/uL Hgb 11.6 L (12.0-16.0) g/dL Hct 35.0 L (36-46) % MCV 93.1 (80-100) fL MCH 30.9 (26-34) PG MCHC 33.2 (30-36) % RDW 13.3 (11.6-14.8) % Plt Count 309 (150-400) X10^3/uL Neut % (Auto) 59.0 (50-75) % Lymph % (Auto) 33.6 (25-40) % [place] % (Auto) 5.6 (3-14) % Eos % (Auto) 1.0 L (2-4) % Baso % (Auto) 0.8 (0-2) % Neut # (Auto) 4300 (4387-0197) /uL Lymph # (Auto) 2500 (2086-7958) /uL [place] # (Auto) 400 (0-900) /uL Eos # (Auto) 100 (0-450) /uL Baso # (Auto) 100 (0-100) /uL Sodium 135 L (137-145) mmol/L Potassium 4.2 (3.4-5.1) mmol/L Chloride 104 (98-107) mmol/L Carbon Dioxide 21 L (22-32) mmol/L BUN 13 (7-17) mg/dL Creatinine 0.60 (0.52-1.04) mg/dL Estimated GFR > 60.0 (>60) mL/min BUN/Creatinine Ratio 21.7 (6-22) Glucose 415 H (70-100) mg/dL Lactate (0.7-2.1) mmol/L Calcium 9.1 (8.4-10.2) mg/dL Total Bilirubin 0.2 (0.2-1.3) mg/dL AST 15 (14-36) IU/L ALT 16 (9-52) IU/L Alkaline Phosphatase 94 (38-126) U/L Total Protein 7.2 (6.3-8.2) g/dL Albumin 4.2 (3.5-5.0) g/dL Globulin 3.0 (1.7-4.1) g/dL Albumin/Globulin Ratio 1.4 (1.0-2.8) Procalcitonin < 0.05 (<0.5) ng/mL Urine Color Urine Appearance Urine pH (4.5-8.0) Ur Specific [place] (1.000-1.035) Urine Protein (Negative) Urine Glucose (UA) (Negative) g/dL Urine Ketones (NEGATIVE) Urine Occult Blood (Negative) Urine Nitrate (Negative) Urine Bilirubin (NEGATIVE) Urine Urobilinogen (0.2) E.U./dL Ur Leukocyte Esterase (NEGATIVE) Urine RBC (0-5/HPF) Urine WBC (0-5/HPF) Ur Squamous Epith Cells Amorphous Sediment Urine Bacteria (None) Granular Casts (None) Urine Mucus (Negative) Ur Culture Indicated? 05/30/18 05/30/18 05/30/18 Range/Units 15:45 15:45 17:06 WBC (4.5-11.0) X10^3/uL RBC (4.0-5.2) X10^6/uL Hgb (12.0-16.0) g/dL Hct (36-46) % MCV (80-100) fL MCH (26-34) PG MCHC (30-36) % RDW (11.6-14.8) % Plt Count (150-400) X10^3/uL Neut % (Auto) (50-75) % Lymph % (Auto) (25-40) % [place] % (Auto) (3-14) % Eos % (Auto) (2-4) % Baso % (Auto) (0-2) % Neut # (Auto) (4625-1881) /uL Lymph # (Auto) (1656-5730) /uL [place] # (Auto) (0-900) /uL Eos # (Auto) (0-450) /uL Baso # (Auto) (0-100) /uL Sodium (137-145) mmol/L Potassium (3.4-5.1) mmol/L Chloride (98-107) mmol/L Carbon Dioxide (22-32) mmol/L BUN (7-17) mg/dL Creatinine (0.52-1.04) mg/dL Estimated GFR (>60) mL/min BUN/Creatinine Ratio (6-22) Glucose (70-100) mg/dL Lactate 2.6 H 1.9 (0.7-2.1) mmol/L Calcium (8.4-10.2) mg/dL Total Bilirubin (0.2-1.3) mg/dL AST (14-36) IU/L ALT (9-52) IU/L Alkaline Phosphatase (38-126) U/L Total Protein (6.3-8.2) g/dL Albumin (3.5-5.0) g/dL Globulin (1.7-4.1) g/dL Albumin/Globulin Ratio (1.0-2.8) Procalcitonin (<0.5) ng/mL Urine Color Yellow Urine Appearance Sl cloudy Urine pH 6.5 (4.5-8.0) Ur Specific [place] 1.010 (1.000-1.035) Urine Protein Negative (Negative) Urine Glucose (UA) 2+ H (Negative) g/dL Urine Ketones Negative (NEGATIVE) Urine Occult Blood Trace-lysed (Negative) Urine Nitrate Positive H (Negative) Urine Bilirubin Negative (NEGATIVE) Urine Urobilinogen 0.2 (0.2) E.U./dL Ur Leukocyte Esterase Negative (NEGATIVE) Urine RBC 1-5/hpf (0-5/HPF) Urine WBC 5-10/hpf H (0-5/HPF) Ur Squamous Epith Cells 0-1 /hpf Amorphous Sediment 2+ Urine Bacteria Moderate (10-30) H (None) Granular Casts 1-5/lpf (None) Urine Mucus 1+ H (Negative) Ur Culture Indicated? Specimen cultured Point of Care Testing Glucose POC 282 Discharge Plan Departure Patient Disposition: Home Clinical Impression: Left shoulder strain Qualifiers: Encounter type: initial encounter Qualified Code(s): S46.912A - Strain of unspecified muscle, fascia and tendon at shoulder and upper arm level, left arm, initial encounter Discharge Date/Time: 05/30/18 18:12 Interventions: ED Discharge Assessment Last Done: 05/30/18 18:11 Instructions: DI for Shoulder Pain Activity Restrictions/Additional Instructions: imaging today was unremarkable. Laboratory results at for show that you had elevated lactate and also elevated blood sugar this most likely is due to decreased p.o. fluid intake after fluids were given in the emergency room these fingers normalized. No signs of infection are appreciated today. Urinalysis does show some white blood cells and some bacteria however this is most likely due to the urostomy. Urine culture is pending follow up with her primary care provider next couple days for re-evaluation. Pain in left shoulder presents as a shoulder strain. Rest area. Use currently prescribed pain management regimen as needed for any discomfort. for any worsening symptoms return to the emergency room. Prescriptions: No Action hydroxyzine HCl 25 MG tablet 25 mg PO TID PRN (Reason: Anxiety) Qty: 0 RF: 0 magnesium oxide 400 MG tablet 400 mg PO BEDTIME Qty: 0 RF: 0 albuterol sulfate [Proventil HFA] 90 MCG/PUFF HFA aerosol inhaler 2 puff INH Q4HP PRN (Reason: Shortness Of Breath) Qty: 0 RF: 0 duloxetine 60 MG capsule,delayed release(DR/EC) 60 mg PO DAILY Qty: 0 RF: 0 gabapentin [Neurontin] 300 MG capsule 600 mg PO TID Qty: 0 RF: 0 multivitamin [Multiple Vitamins] 1 EACH tablet 1 tab PO QDAY Qty: 0 RF: 0 zolpidem [Ambien] 10 MG tablet 10 mg PO HS PRN (Reason: Insomnia) Qty: 0 RF: 0 oxycodone-acetaminophen 5-325 mg tablet 1 tab PO Q4-6H PRN (Reason: pain) Qty: 15 RF: 0 lorazepam 0.5 mg tablet 0.5 mg PO BID PRN (Reason: Anxiety) RF: 0 amitriptyline 50 mg tablet 150 mg PO BEDTIME RF: 0 potassium chloride 20 mEq tablet,ER particles/crystals 20 meq PO QNOON RF: 0 lisinopril 10 mg tablet 10 mg PO DAILY RF: 0 omeprazole 20 mg capsule,delayed release(DR/EC) 20 mg PO BID RF: 0 ondansetron 4 mg tablet,disintegrating 1 tab Translingual Q6H PRN (Reason: Nausea) RF: 0 Humulin N NPH Insulin KwikPen 100 unit/mL (3 mL) insulin pen 15 units Sub-Q BEDTIME RF: 0 Xarelto 20 mg tablet 20 mg PO DAILY RF: 0 Probiotic 1 tab PO BID RF: 0 vitamin E 1 cap PO DAILY RF: 0 hydrocodone-acetaminophen [[place]] 5-325 mg tablet 1 tab PO Q4-6H PRN (Reason: pain) Qty: 6 RF: 0 Referrals: Fadi Ko DO [Primary Care Provider] - <Brenton Drew DO - Last Filed: 05/31/18 07:15> Cosign ED Attending Cosignature Attestation: I was available for consultation during this patient's emergency department encounter
[2018-05-30 17:50] VITALS: BP 138/78; PULSE 96; RESP 18; O2SAT 98
[2018-05-30 19:51] LABS: Reflexed Lactate in 2 Hours Y
== END 2018-05-30 18:12 | disposition home or self-care (01) ==
PROVIDERS: Emergency Provider Nurse Practitioner Family; Family Provider Family Medicine; PCP Family Medicine
DX: S46.912A Strain of unspecified muscle, fascia and tendon at shoulder and upper arm level, left arm, initial encounter (principal)
CPT/HCPCS: 36415; 36591; 71045; 73030; 80053; 81001; 82962; 83605; 84145; 85025; 87077; 87086; 87186; 99283; 99284; J1170

== ENCOUNTER 2018-06-13 09:21 | Emergency (ER) | payer OTHER, SELFPAY ==
[2018-06-13 09:30] VITALS: BP 157/77; PULSE 72; RESP 13; TEMP 36.2; O2SAT 100
--- NOTE | 2018-06-13 09:46 | ED.SOB ---
HPI - SOB/Dyspnea General Chief Complaint: Shortness of Breath/Dyspnea Stated Complaint: SOB Time Seen by Provider: 06/13/18 09:22 Source: patient Mode of arrival: ambulatory Limitations: no limitations History of Present Illness 52-year-old female smoker with complicated medical history known well to myself and other staff presents with a chief complaint of ongoing productive cough for quite some time. She states she occasionally short of breath particularly with significant exertion. She is concerned that she has ongoing pneumonia as she was relatively recently diagnosed with such. She has no runny nose or sore throat. She denies body aches nor fever. Her cough is productive of a whitish or lambert sputum. She denies chest pain or abdominal pain. MD Complaint: shortness of breath and cough Onset (ago): week(s) Context: recent illness Severity: moderate Consistency/Duration: intermittent Relieving factors: oxygen and rest Exacerbating factors: movement and coughing Known history of: COPD Related Data Home Medications Medication Instructions Recorded Confirmed albuterol sulfate [Proventil HFA] 2 puff INH Q4HP PRN #0 01/08/13 06/13/18 hydroxyzine HCl 25 mg PO TID PRN #0 01/08/13 06/13/18 magnesium oxide 400 mg PO BEDTIME #0 tab 01/08/13 06/13/18 duloxetine 60 mg PO DAILY #0 07/04/17 06/13/18 gabapentin [Neurontin] 600 mg PO TID #0 07/04/17 06/13/18 multivitamin [Multiple Vitamins] 1 tab PO QDAY #0 07/04/17 09/26/17 zolpidem [Ambien] 10 mg PO HS PRN #0 07/04/17 06/13/18 Probiotic 1 tab PO BID 09/26/17 09/26/17 amitriptyline 150 mg PO BEDTIME 09/26/17 06/13/18 insulin NPH isoph U-100 human 15 units SUB-Q BEDTIME 09/26/17 06/13/18 [Humulin N NPH Insulin KwikPen] lisinopril 10 mg PO DAILY 09/26/17 06/13/18 omeprazole 20 mg PO BID 09/26/17 06/13/18 ondansetron 1 tab TRANSLINGUAL Q6H PRN 09/26/17 06/13/18 potassium chloride 20 meq PO QNOON 09/26/17 06/13/18 rivaroxaban [Xarelto] 20 mg PO DAILY 09/26/17 09/26/17 vitamin E 1 cap PO DAILY 09/26/17 09/26/17 lorazepam 0.5 mg PO BID PRN 05/30/18 06/13/18 aspirin 81 mg PO DAILY 06/13/18 06/13/18 Previous Rx's Medication Instructions Recorded oxycodone-acetaminophen 1 tab PO Q4-6H PRN #15 tab 02/18/18 hydrocodone-acetaminophen [[place]] 1 tab PO Q4-6H PRN #6 tab 04/02/18 Allergies Allergy/AdvReac Type Severity Reaction Status Date / Time mupirocin Allergy Unknown Verified 05/30/18 15:18 naproxen Allergy Unknown Verified 05/30/18 15:18 Penicillins Allergy Unknown SINCE Verified 05/30/18 15:18 CHILDHOOD droperidol AdvReac Unknown Verified 05/30/18 15:18 fenofibrate [FENOFIBRATE] AdvReac Unknown Verified 05/30/18 15:18 ibuprofen AdvReac Unknown NAUSEA Verified 05/30/18 15:18 metformin [METFORMIN] AdvReac Unknown Verified 05/30/18 15:18 metoclopramide AdvReac Unknown BECAME Verified 05/30/18 15:18 JITTERY AND ANXIOUS nitrofurantoin AdvReac Unknown NAUSEA Verified 05/30/18 15:18 Review of Systems Constitutional Denies chills, Denies fever(s), Denies lethargy and Denies weakness Eyes Denies change in vision, Denies eye discharge, Denies irritation and Denies loss of vision ENT Ears, Nose, Mouth, and Throat: Denies change in voice, Denies neck pain and Denies sore throat Cardiovascular Denies chest pain, Denies irregular heart rhythm, Denies lightheadedness, Denies palpitations, Reports dyspnea, Denies dyspnea on exertion and Denies orthopnea Respiratory Reports chest congestion, Reports cough, Reports dyspnea, Denies dyspnea on exertion and Denies wheezing Gastrointestinal Gastrointestinal: Denies abdominal pain, Denies change in bowel habits, Denies diarrhea, Denies nausea and Denies vomiting Genitourinary Denies hematuria, Denies flank pain, Denies urinary incontinence and Denies urinary urgency Musculoskeletal Denies neck pain Integumentary/Breasts Denies pruritus, Denies erythema, Denies rash and Denies wounds Neurologic Denies confusion, Denies loss of vision and Denies weakness Psychiatric Denies anxiety, Denies confusion, Denies depression, Denies homicidal ideation and Denies suicidal ideation Endocrine Denies palpitations Hematologic/Lymphatic Denies easy bruising Allergic/Immunologic Denies wheezing [facility] Medical History Anxiety (Chronic) Endometriosis (Chronic) Fibromyalgia (Chronic) Heart palpitations (Chronic) History of COPD (Chronic) History of asthma (Chronic) History of chronic hypertension (Chronic) History of depression (Chronic) History of gastrointestinal ulcer (Chronic) History of kidney stones (Chronic) History of migraine (Chronic) History of panic attacks (Chronic) History of type 2 diabetes mellitus (Chronic) Interstitial cystitis (Chronic) Port-a-cath in place (Chronic) UTI (urinary tract infection) (Chronic) Surgical History S/P appendectomy (Resolved) Status post hysterectomy (Resolved) Family History Other Family history non-contributory Social History Smoking Status: Current every day smoker Family History Other Family history non-contributory Social History Smoking Status: Current every day smoker Exam Narrative Exam Narrative: GENERAL: 52-year-old female appears older than stated age, she is visibly anxious but in no obvious respiratory distress HEAD: Atraumatic. Normocephalic. No temporal or scalp tenderness. EYES: Pupils equal round and reactive. Extraocular motions intact. No scleral icterus. No injection or drainage. ENT: Nose without bleeding, purulent drainage or septal hematoma. Throat without erythema, tonsillar hypertrophy or exudate. Uvula midline. Airway patent. NECK: Trachea midline. No JVD or lymphadenopathy. Supple, nontender, no meningeal signs. CARDIOVASCULAR: Regular rate and rhythm without murmurs, gallops, or rubs. RESPIRATORY: Clear to auscultation. Breath sounds equal bilaterally. No wheezes, rales, or rhonchi. no use of intercostals GASTROINTESTINAL: Abdomen soft, non-tender, nondistended. No hepato-splenomegaly, or palpable masses. No guarding. EXTREMITIES: No clubbing, cyanosis, or edema. No joint tenderness, effusion, or edema noted. BACK: Nontender without deformity or crepitance. No flank tenderness. NEURO: AOx3. SKIN: No rash or erythema. Initial Vital Signs Initial Vital Signs: Vital Signs Temperature 97.2 F L 06/13/18 09:30 Pulse Rate 72 06/13/18 09:30 Respiratory Rate 13 06/13/18 09:30 Blood Pressure 157/77 H 06/13/18 09:30 Pulse Oximetry 100 06/13/18 09:30 Course Orders Ordered: ED Orders 06/13/18 10:25 B Type Natriuretic Peptide Stat Basic Metabolic Panel Stat Complete Blood Count AUTO DIFF Stat Procalcitonin Stat Vital Signs - 8 hr 06/13/18 09:30 Temperature 97.2 F L Pulse Rate 72 Respiratory Rate 13 Blood Pressure 157/77 H Pulse Oximetry 100 MDM - SOB/Dyspnea Lab Data Result diagrams: 06/13/18 10:25 06/13/18 10:25 Lab Results 06/13/18 06/13/18 06/13/18 Range/Units 10:25 10:25 10:25 WBC 14.3 H (4.5-11.0) X10^3/uL RBC 4.40 (4.0-5.2) X10^6/uL Hgb 13.7 (12.0-16.0) g/dL Hct 41.6 (36-46) % MCV 94.5 (80-100) fL MCH 31.1 (26-34) PG MCHC 32.9 (30-36) % RDW 13.6 (11.6-14.8) % Plt Count 361 (150-400) X10^3/uL Neut % (Auto) 78.4 H (50-75) % Lymph % (Auto) 15.3 L (25-40) % [place] % (Auto) 5.4 (3-14) % Eos % (Auto) 0.5 L (2-4) % Baso % (Auto) 0.4 (0-2) % Neut # (Auto) 51695 H (3344-2821) /uL Lymph # (Auto) 2200 (2694-2995) /uL [place] # (Auto) 800 (0-900) /uL Eos # (Auto) 100 (0-450) /uL Baso # (Auto) 100 (0-100) /uL Sodium 138 (137-145) mmol/L Potassium 5.3 H (3.4-5.1) mmol/L Chloride 104 (98-107) mmol/L Carbon Dioxide 23 (22-32) mmol/L BUN 21 H (7-17) mg/dL Creatinine 0.60 (0.52-1.04) mg/dL Estimated GFR > 60.0 (>60) mL/min BUN/Creatinine Ratio 35.0 H (6-22) Glucose 160 H (70-100) mg/dL Calcium 10.0 (8.4-10.2) mg/dL B-Natriuretic Peptide < 100 (<100) Procalcitonin < 0.05 (<0.5) ng/mL Imaging Data Chest x-ray: Radiologist's impression: [place] [address] XRay Report Signed Patient: Melvi Gibbs [facility]#: [id number] : 1965Acct:[id number] Age/Sex: 52 / FDate of Service: 06/13/18 Loc: ED Accession Number: [id number] Procedure: XR chest 2V Ordering Provider: Lyle Roman D.O. PROCEDURE: XR CHEST 2V INDICATIONS: cough, SOB TECHNIQUE: 2 views of the chest were acquired. COMPARISON: [facility], CR, XR CHEST 1V, 05/30/2018, 15:45. [facility], CR, XR CHEST 2V, 04/29/2018, 16:05. [facility], CR, XR CHEST 2V, 09/26/2017, 10:05. FINDINGS: Surgical changes and devices: None. Lungs and pleura: Lungs are clear. No pleural effusions or pneumothorax. Mediastinum: Mediastinal contours are normal. Heart size is normal. Bones and chest wall: No suspicious bony abnormalities. Soft tissues appear unremarkable. IMPRESSION: No acute process. Dictated by: Kristian Bolton M.D. on 06/13/2018 at 10:28 Approved by: Kristian Bolton M.D. on 06/13/2018 at 10:29 Discharge Plan Departure Patient Disposition: Home Clinical Impression: Acute dyspnea, Cough Discharge Date/Time: 06/13/18 11:24 Interventions: ED Discharge Assessment Last Done: 06/13/18 11:23 Instructions: DI for Shortness of Breath Activity Restrictions/Additional Instructions: *You have been diagnosed with [ cough and dyspnea ] *What to do: * continue to take medications as directed *Follow up with your primary care provider in 2-3 days, call for an appointment. Let them know you were seen in the Emergency Department and that we ask that you be seen in follow up *Return to ER if you should have any new, worsening or concerning symptoms Prescriptions: No Action hydroxyzine HCl 25 MG tablet 25 mg PO TID PRN (Reason: Anxiety) Qty: 0 RF: 0 magnesium oxide 400 MG tablet 400 mg PO BEDTIME Qty: 0 RF: 0 albuterol sulfate [Proventil HFA] 90 MCG/PUFF HFA aerosol inhaler 2 puff INH Q4HP PRN (Reason: Shortness Of Breath) Qty: 0 RF: 0 duloxetine 60 MG capsule,delayed release(DR/EC) 60 mg PO DAILY Qty: 0 RF: 0 gabapentin [Neurontin] 300 MG capsule 600 mg PO TID Qty: 0 RF: 0 multivitamin [Multiple Vitamins] 1 EACH tablet 1 tab PO QDAY Qty: 0 RF: 0 zolpidem [Ambien] 10 MG tablet 10 mg PO HS PRN (Reason: Insomnia) Qty: 0 RF: 0 oxycodone-acetaminophen 5-325 mg tablet 1 tab PO Q4-6H PRN (Reason: pain) Qty: 15 RF: 0 lorazepam 0.5 mg tablet 0.5 mg PO BID PRN (Reason: Anxiety) RF: 0 aspirin 81 mg tablet,chewable 81 mg PO DAILY RF: 0 amitriptyline 50 mg tablet 150 mg PO BEDTIME RF: 0 potassium chloride 20 mEq tablet,ER particles/crystals 20 meq PO QNOON RF: 0 lisinopril 10 mg tablet 10 mg PO DAILY RF: 0 omeprazole 20 mg capsule,delayed release(DR/EC) 20 mg PO BID RF: 0 ondansetron 4 mg tablet,disintegrating 1 tab Translingual Q6H PRN (Reason: Nausea) RF: 0 Humulin N NPH Insulin KwikPen 100 unit/mL (3 mL) insulin pen 15 units Sub-Q BEDTIME RF: 0 Xarelto 20 mg tablet 20 mg PO DAILY RF: 0 Probiotic 1 tab PO BID RF: 0 vitamin E 1 cap PO DAILY RF: 0 hydrocodone-acetaminophen [[place]] 5-325 mg tablet 1 tab PO Q4-6H PRN (Reason: pain) Qty: 6 RF: 0 Referrals: Fadi Ko DO [Primary Care Provider] -
--- NOTE | 2018-06-13 09:53 | DI.RAD.S_ITS ---
PROCEDURE: XR CHEST 2V INDICATIONS: cough, SOB TECHNIQUE: 2 views of the chest were acquired. COMPARISON: [facility], CR, XR CHEST 1V, 05/30/2018, 15:45. [facility], CR, XR CHEST 2V, 04/29/2018, 16:05. [facility], CR, XR CHEST 2V, 09/26/2017, 10:05. FINDINGS: Surgical changes and devices: None. Lungs and pleura: Lungs are clear. No pleural effusions or pneumothorax. Mediastinum: Mediastinal contours are normal. Heart size is normal. Bones and chest wall: No suspicious bony abnormalities. Soft tissues appear unremarkable. IMPRESSION: No acute process. Dictated by: Kristian Bolton M.D. on 06/13/2018 at 10:28 Approved by: Kristian Bolton M.D. on 06/13/2018 at 10:29
[2018-06-13 10:46] LABS: Blood Urea Nitrogen 21 mg/dL (7-17); Carbon Dioxide 23 mmol/L (22-32); Chloride 104 mmol/L (98-107); Estimated Glomerular Filt Rate > 60.0 mL/min (>60); Glucose 160 mg/dL (70-100); HEMOLYSIS 17 (0-50); Potassium 5.3 mmol/L (3.4-5.1); Sodium 138 mmol/L (137-145)
[2018-06-13 10:47] LABS: Add Manual Diff / Slide Review NO; Basophils Absolute Auto 100 /uL (0-100); Basophils Percent Auto 0.4 % (0-2); Eosinophils Absolute Auto 100 /uL (0-450); Eosinophils Percent Auto 0.5 % (2-4); Hematocrit 41.6 % (36-46); Hemoglobin 13.7 g/dL (12.0-16.0); Lymphocytes Absolute Auto 2200 /uL (1100-4500); Lymphocytes Percent Auto 15.3 % (25-40); Mean Corpuscular HGB Conc 32.9 % (30-36); Mean Corpuscular Hemoglobin 31.1 PG (26-34); Mean Corpuscular Volume 94.5 fL (80-100); Monocytes Absolute Auto 800 /uL (0-900); Monocytes Percent Auto 5.4 % (3-14); Neutrophils Absolute Auto 11300 /uL (1500-7000); Neutrophils Percent Auto 78.4 % (50-75); Platelet Count 361 X10^3/uL (150-400); Red Cell Distribution Width 13.6 % (11.6-14.8); White Blood Cell Count 14.3 X10^3/uL (4.5-11.0)
[2018-06-13 11:03] LABS: Procalcitonin < 0.05 ng/mL (<0.5)
[2018-06-13 11:09] LABS: B Type Natriuretic Peptide < 100 (<100)
== END 2018-06-13 11:24 | disposition home or self-care (01) ==
PROVIDERS: Emergency Provider Emergency Medicine; Family Provider Family Medicine; PCP Family Medicine
DX: R06.00 Dyspnea, unspecified (principal); R05 Cough
CPT/HCPCS: 36415; 71046; 80048; 83880; 84145; 85025; 93005; 99282; 99285

== ENCOUNTER → 2018-07-13 08:31 | Outpatient (CLI) | payer OTHER, SELFPAY ==
--- NOTE | 2018-07-13 | DI.MG.S_ITS ---
BILATERAL DIGITAL DIAGNOSTIC MAMMOGRAM 3D/2D: 07/13/2018 CLINICAL: Upper outer right breast pain per patient. Patient's referring provider felt a palpable lump in the area of pain, per patient. Comparison is made to exam dated: 10/18/2013 mammogram - [facility]. There are scattered fibroglandular elements in both breasts. There is a square marker overlying the skin of the lateral right breast at the site of the patient's reported focal pain and patient's referring provider's focal palpable abnormality. There is no underlying mammographic abnormality. No significant masses, calcifications, or other findings are seen in either breast. IMPRESSION: INCOMPLETE: NEEDS ADDITIONAL IMAGING EVALUATION No mammographic abnormality to correlate with the site of the patient's reported focal pain and patient's referring provider's focal palpable abnormality. Targeted diagnostic ultrasound recommended for further evaluation, which will be performed immediately following this exam. This exam was interpreted at Station ID: [id number]. NOTE: For mammograms, a report in lay terms will be sent to the patient. Approximately 15% of breast malignancies will not be visualized mammographically. In the management of a palpable breast mass, a negative mammogram must not discourage biopsy of a clinically suspicious lesion. Electronically Signed By: Jian Milligan M.D. ecl/:07/13/2018 10:05:10 ACR BI-RADS Category 0: Incomplete [id number]
--- NOTE | 2018-07-13 | DI.US.S_ITS ---
LIMITED ULTRASOUND OF RIGHT BREAST AND AXILLA: 07/13/2018 CLINICAL: Upper outer right breast pain per patient. Patient's referring provider felt a palpable lump in the area of pain, per patient. Comparison is made to exams dated: 07/13/2018 mammogram, 10/18/2013 mammogram, 10/18/2013 [facility], and 12/26/2001 mammogram - [facility]. Real-time and Doppler ultrasound of the right breast 7-12 o'clock, and axilla regions were performed. Abel scale images of the real-time examination were reviewed. Targeted ultrasound was performed in the region of the patient's reported focal pain and patient's referring provider's focal palpable abnormality in the lateral right breast at 7 o'clock through 10 o'clock positions. No underlying breast mass or abnormality is identified. Targeted ultrasound of the right axilla demonstrates no right axillary lymphadenopathy or other abnormality. IMPRESSION: NEGATIVE 1) No ultrasound findings to explain patient's reported focal lateral right breast pain and patient's referring provider's focal palpable abnormality in the lateral right breast. Recommend clinical follow-up for further evaluation and management of the patient's reported symptoms. 2) No right axillary lymphadenopathy. 3) There is no sonographic evidence of malignancy in the imaged right breast. Return to annual screening mammography is recommended. The patient is advised to monitor her breasts and to return sooner for re-evaluation should she feel anything grow or change. This exam was interpreted at Station ID: [id number]. Electronically Signed By: Jian Milligan M.D. ecl/:07/13/2018 10:09:43 letter sent: Clinical Evaluation Ultrasound BI-RADS: 1 Negative
== END ==
PROVIDERS: Family Provider Family Medicine; PCP Family Medicine; Visit Provider Family Medicine
DX: R92.8 Other abnormal and inconclusive findings on diagnostic imaging of breast (principal); N64.4 Mastodynia
CPT/HCPCS: 76642; 77066; G0279

== ENCOUNTER 2018-07-23 15:17 | Emergency (ER) | payer OTHER, SELFPAY ==
[2018-07-23 15:23] VITALS: BP 134/84; PULSE 98; RESP 18; TEMP 36.9; O2SAT 100; BMI 18.8
[2018-07-23 15:42] LABS: Appearance Urine UA CLOUDY; Bilirubin Urine UA NEGATIVE (NEGATIVE); Color Urine UA YELLOW; Glucose Urine UA NEGATIVE (Negative); Ketones Urine UA TRACE (NEGATIVE); Leukocyte Esterase Urine UA 2+ (NEGATIVE); Nitrite Urine UA POSITIVE (Negative); Occult Blood Urine UA 1+ (Negative); Protein Urine UA 1+ (Negative); Specific Gravity Urine UA 1.015 (1.000-1.035); Urobilinogen Urine UA 0.2 E.U./dL (0.2)
[2018-07-23 15:52] LABS: Bacteria Urine Many (>30); Culture Indicated Urine Specimen Cultured; RBC Urine 1-5/HPF (0-5/HPF); Squamous Epithelial Cell Urine None Seen (0-5/HPF); WBC Urine 1-5/HPF (0-5/HPF)
--- NOTE | 2018-07-23 16:04 | PC.NURSE ---
Provider states OK to have water
--- NOTE | 2018-07-23 16:15 | ED.BACK ---
HPI - Back Pain/Injury <YASMANI Hernandez - Last Filed: 07/23/18 17:30> General Chief Complaint: Back Pain/Injury Stated Complaint: thinks she is septic Time Seen by Provider: 07/23/18 16:14 Source: patient Mode of arrival: wheelchair Limitations: no limitations History of Present Illness HPI Narrative: pt says the urine in her bag has been cloudy and it when it gets this way she has infection and could be septic MD Complaint: back pain Onset (ago): day(s) Duration: constant Similar Symptoms Previously: Yes Location: lumbar spine, right lower back and left lower back Severity: similar to previous episodes Radiation: none Relieving factors: none Exacerbating factors: none Associated symptoms: denies other symptoms Related Data Home Medications Medication Instructions Recorded Confirmed albuterol sulfate [Proventil HFA] 2 puff INH Q4HP PRN #0 01/08/13 06/13/18 hydroxyzine HCl 25 mg PO TID PRN #0 01/08/13 07/24/18 magnesium oxide 400 mg PO BEDTIME #0 tab 01/08/13 07/24/18 duloxetine 60 mg PO DAILY #0 07/04/17 07/24/18 gabapentin [Neurontin] 600 mg PO TID #0 07/04/17 07/24/18 multivitamin [Multiple Vitamins] 1 tab PO QDAY #0 07/04/17 09/26/17 zolpidem [Ambien] 10 mg PO HS PRN #0 07/04/17 07/24/18 Probiotic 1 tab PO BID 09/26/17 09/26/17 amitriptyline 150 mg PO BEDTIME 09/26/17 07/24/18 insulin NPH isoph U-100 human 15 units SUB-Q BEDTIME 09/26/17 07/24/18 [Humulin N NPH Insulin KwikPen] lisinopril 10 mg PO DAILY 09/26/17 07/24/18 omeprazole 20 mg PO BID 09/26/17 07/24/18 ondansetron 1 tab TRANSLINGUAL Q6H PRN 09/26/17 07/24/18 potassium chloride 20 meq PO QNOON 09/26/17 07/24/18 rivaroxaban [Xarelto] 20 mg PO DAILY 09/26/17 09/26/17 vitamin E 1 cap PO DAILY 09/26/17 09/26/17 lorazepam 0.5 mg PO BID PRN 05/30/18 07/24/18 aspirin 81 mg PO DAILY 06/13/18 07/24/18 Previous Rx's Medication Instructions Recorded oxycodone-acetaminophen 1 tab PO Q4-6H PRN #15 tab 02/18/18 hydrocodone-acetaminophen [[place]] 1 tab PO Q4-6H PRN #6 tab 04/02/18 sulfamethoxazole-trimethoprim 1 tab PO BID #14 tab 07/23/18 [Bactrim DS] Allergies Allergy/AdvReac Type Severity Reaction Status Date / Time mupirocin Allergy Unknown Verified 07/24/18 09:07 naproxen Allergy Unknown Verified 07/24/18 09:07 Penicillins Allergy Unknown SINCE Verified 07/24/18 09:07 CHILDHOOD droperidol AdvReac Unknown Verified 07/24/18 09:07 fenofibrate [FENOFIBRATE] AdvReac Unknown Verified 07/24/18 09:07 ibuprofen AdvReac Unknown NAUSEA Verified 07/24/18 09:07 metformin [METFORMIN] AdvReac Unknown Verified 07/24/18 09:07 metoclopramide AdvReac Unknown BECAME Verified 07/24/18 09:07 JITTERY AND ANXIOUS nitrofurantoin AdvReac Unknown NAUSEA Verified 07/24/18 09:07 Review of Systems <YASMANI Hernandez - Last Filed: 07/23/18 17:30> Review of Systems ROS Unobtainable: All systems reviewed & are unremarkable except as noted in HPI and below Constitutional Reports as per HPI and Reports system reviewed and no additional complaints, except as docu Eyes Denies change in vision, Denies eye discharge, Denies irritation and Denies loss of vision ENT Ears, Nose, Mouth, and Throat: Denies change in voice, Denies neck pain and Denies sore throat Cardiovascular Denies chest pain, Denies irregular heart rhythm, Denies lightheadedness, Denies palpitations, Denies dyspnea, Denies dyspnea on exertion and Denies orthopnea Respiratory Denies cough, Denies dyspnea, Denies dyspnea on exertion and Denies wheezing Gastrointestinal Gastrointestinal: Denies abdominal pain, Denies change in bowel habits, Denies diarrhea, Denies nausea and Denies vomiting Genitourinary Reports as per HPI, Denies hematuria, Denies flank pain, Denies urinary incontinence and Denies urinary urgency Musculoskeletal Reports back pain and Denies neck pain Integumentary/Breasts Denies pruritus, Denies erythema, Denies rash and Denies wounds Neurologic Denies confusion and Denies loss of vision Psychiatric Denies anxiety, Denies confusion, Denies depression, Denies homicidal ideation and Denies suicidal ideation Endocrine Denies palpitations Hematologic/Lymphatic Denies easy bruising Allergic/Immunologic Denies wheezing PFSH <YASMANI Hernandez - Last Filed: 07/23/18 17:30> Medical History Anxiety (Chronic) Endometriosis (Chronic) Fibromyalgia (Chronic) Heart palpitations (Chronic) History of COPD (Chronic) History of asthma (Chronic) History of chronic hypertension (Chronic) History of depression (Chronic) History of gastrointestinal ulcer (Chronic) History of kidney stones (Chronic) History of migraine (Chronic) History of panic attacks (Chronic) History of type 2 diabetes mellitus (Chronic) Interstitial cystitis (Chronic) Port-a-cath in place (Chronic) UTI (urinary tract infection) (Chronic) Surgical History S/P appendectomy (Resolved) Status post hysterectomy (Resolved) Family History Other Family history non-contributory Social History Smoking Status: Current every day smoker Family History Other Family history non-contributory Social History Smoking Status: Current every day smoker Exam <YASMANI Hernandez - Last Filed: 07/23/18 17:30> Initial Vital Signs Initial Vital Signs: Vital Signs Temperature 98.5 F 07/23/18 15:23 Pulse Rate 98 H 07/23/18 15:23 Respiratory Rate 18 07/23/18 15:23 Blood Pressure 134/84 07/23/18 15:23 Pulse Oximetry 100 07/23/18 15:23 Const General: cooperative, healthy appearing, comfortable, well developed and well groomed Nutritional Appearance: average body habitus Orientation: alert, awake and oriented x3 [facility] Head: normal to inspection and normocephalic Ears: hearing grossly normal bilaterally, external ears normal, TM's normal bilaterally and mastoids normal Nose: external nose normal and nares normal Face and sinus: normal facial exam, sinuses nontender and face symmetric Mouth: oral mucosae normal, lip normal, tongue normal, oropharynx normal and moist mucous membranes Teeth and gingiva: dentition normal and gingiva normal Throat: posterior oropharynx normal, tonsils normal and uvula midline Eyes General: appearance normal, both eyes and all related structures Visual Encarnacion: normal visual encarnacion by confrontation Eyelids: eyelids normal Conjunctivae: conjunctivae normal Sclera: sclerae normal Pupils: PERRL EOM: EOM intact bilaterally Neck Neck: normal visual inspection, full ROM, no meningeal signs, trachea midline, supple and No lymphadenopathy Chest Chest: normal inspection of the chest Resp Effort & Inspection: normal respiratory effort and able to speak in complete sentences Auscultation: clear to auscultation bilaterally Cardio Rate: regular rate Rhythm: regular rhythm Heart Sounds: S1 normal and S2 normal Other: nephrostomy with bag, urine is clear but there is sediment in the bag Back/Spine/Pelvis Back: normal to inspection, No back tenderness and No CVA tenderness Cervical Spine: cervical ROM normal Thoracic/Lumbar Spine: thoraco-lumbar ROM normal Skin General: no rashes or lesions noted, elasticity normal, turgor normal and dry skin Neuro General: alert, awake, oriented x3 and meningeal signs present Cognition: normal cognition Speech: speech normal Gait: normal gait Motor: muscle tone normal throughout Sensory Exam: no sensory deficits noted Extrem General: normal to inspection and full ROM Psych Appearance: grossly normal and well kempt Mental Status: mental status grossly normal Speech and Movement: speech and movement normal Mood: congruent mood Affect: normal affect Attitude: cooperative Thought Process: normal Thought Content: normal Judgment: judgment good <Vivi Montoya, DO - Last Filed: 07/24/18 10:49> Initial Vital Signs Initial Vital Signs: Vital Signs Temperature 98.5 F 07/23/18 15:23 Pulse Rate 98 H 07/23/18 15:23 Respiratory Rate 18 07/23/18 15:23 Blood Pressure 134/84 07/23/18 15:23 Pulse Oximetry 100 07/23/18 15:23 Course <YASMANI Hernandez - Last Filed: 07/23/18 17:30> Orders Ordered: Discontinued Medications Ceftriaxone Sodium (Rocephin) 1,000 mg IM NOW ONE Stop: 07/23/18 16:26 Last Admin: 07/23/18 16:46 Dose: 1,000 mg Vital Signs - 8 hr 07/23/18 15:23 07/23/18 16:26 Temperature 98.5 F 97.9 F Pulse Rate 98 H 95 H Respiratory Rate 18 14 Blood Pressure 134/84 Blood Pressure [Right Arm] 124/91 H Pulse Oximetry 100 98 <Viiv Montoya DO - Last Filed: 07/24/18 10:49> Orders Ordered: Discontinued Medications Ceftriaxone Sodium (Rocephin) 1,000 mg IM NOW ONE Stop: 07/23/18 16:26 Last Admin: 07/23/18 16:46 Dose: 1,000 mg Vital Signs - 8 hr 07/23/18 15:23 07/23/18 16:26 Temperature 98.5 F 97.9 F Pulse Rate 98 H 95 H Respiratory Rate 18 14 Blood Pressure 134/84 Blood Pressure [Right Arm] 124/91 H Pulse Oximetry 100 98 MDM - Back Pain/Injury <YASMANI Hernandez - Last Filed: 07/23/18 17:30> Differential Diagnosis Differential diagnosis: Likely lumbar radiculopathy, sciatica, strain of lumbar region, pyelonephritis and other (uti, chronic back pain) Lab Data Attestation: I reviewed the patient's lab results. Lab Results 07/23/18 Range/Units 15:33 Urine Color Yellow Urine Appearance Cloudy Urine pH 7.0 (4.5-8.0) Ur Specific [place] 1.015 (1.000-1.035) Urine Protein 1+ H (Negative) Urine Glucose (UA) Negative (Negative) g/dL Urine Ketones Trace H (NEGATIVE) Urine Occult Blood 1+ H (Negative) Urine Nitrate Positive H (Negative) Urine Bilirubin Negative (NEGATIVE) Urine Urobilinogen 0.2 (0.2) E.U./dL Ur Leukocyte Esterase 2+ H (NEGATIVE) Urine RBC 1-5/hpf (0-5/HPF) Urine WBC 1-5/hpf (0-5/HPF) Ur Squamous Epith Cells None seen (0-5/HPF) Urine Bacteria Many (>30) H (None) Ur Culture Indicated? Specimen cultured <Vivi Montoya DO - Last Filed: 07/24/18 10:49> Lab Data Lab Results 07/23/18 Range/Units 15:33 Urine Color Yellow Urine Appearance Cloudy Urine pH 7.0 (4.5-8.0) Ur Specific [place] 1.015 (1.000-1.035) Urine Protein 1+ H (Negative) Urine Glucose (UA) Negative (Negative) g/dL Urine Ketones Trace H (NEGATIVE) Urine Occult Blood 1+ H (Negative) Urine Nitrate Positive H (Negative) Urine Bilirubin Negative (NEGATIVE) Urine Urobilinogen 0.2 (0.2) E.U./dL Ur Leukocyte Esterase 2+ H (NEGATIVE) Urine RBC 1-5/hpf (0-5/HPF) Urine WBC 1-5/hpf (0-5/HPF) Ur Squamous Epith Cells None seen (0-5/HPF) Urine Bacteria Many (>30) H (None) Ur Culture Indicated? Specimen cultured Discharge Plan Departure Patient Disposition: Home Clinical Impression: UTI (urinary tract infection) Discharge Date/Time: 07/23/18 17:09 Interventions: ED Discharge Assessment Last Done: 07/23/18 17:08 Instructions: DI for Urinary Tract Infection (UTI) Prescriptions: New sulfamethoxazole-trimethoprim [Bactrim DS] 800-160 mg tablet 1 tab PO BID Qty: 14 RF: 0 No Action hydroxyzine HCl 25 MG tablet 25 mg PO TID PRN (Reason: Anxiety) Qty: 0 RF: 0 magnesium oxide 400 MG tablet 400 mg PO BEDTIME Qty: 0 RF: 0 albuterol sulfate [Proventil HFA] 90 MCG/PUFF HFA aerosol inhaler 2 puff INH Q4HP PRN (Reason: Shortness Of Breath) Qty: 0 RF: 0 duloxetine 60 MG capsule,delayed release(DR/EC) 60 mg PO DAILY Qty: 0 RF: 0 gabapentin [Neurontin] 300 MG capsule 600 mg PO TID Qty: 0 RF: 0 multivitamin [Multiple Vitamins] 1 EACH tablet 1 tab PO QDAY Qty: 0 RF: 0 zolpidem [Ambien] 10 MG tablet 10 mg PO HS PRN (Reason: Insomnia) Qty: 0 RF: 0 oxycodone-acetaminophen 5-325 mg tablet 1 tab PO Q4-6H PRN (Reason: pain) Qty: 15 RF: 0 lorazepam 0.5 mg tablet 0.5 mg PO BID PRN (Reason: Anxiety) RF: 0 aspirin 81 mg tablet,chewable 81 mg PO DAILY RF: 0 amitriptyline 50 mg tablet 150 mg PO BEDTIME RF: 0 potassium chloride 20 mEq tablet,ER particles/crystals 20 meq PO QNOON RF: 0 lisinopril 10 mg tablet 10 mg PO DAILY RF: 0 omeprazole 20 mg capsule,delayed release(DR/EC) 20 mg PO BID RF: 0 ondansetron 4 mg tablet,disintegrating 1 tab Translingual Q6H PRN (Reason: Nausea) RF: 0 Humulin N NPH Insulin KwikPen 100 unit/mL (3 mL) insulin pen 15 units Sub-Q BEDTIME RF: 0 Xarelto 20 mg tablet 20 mg PO DAILY RF: 0 Probiotic 1 tab PO BID RF: 0 vitamin E 1 cap PO DAILY RF: 0 hydrocodone-acetaminophen [[place]] 5-325 mg tablet 1 tab PO Q4-6H PRN (Reason: pain) Qty: 6 RF: 0 Referrals: Fadi Ko DO [Primary Care Provider] - (follow up recommended in 2-3 days for recheck of urine) <Vivi Montoya DO - Last Filed: 07/24/18 10:49> [facility] ED Attending Hyunature Attestation: I was immediately available in the department for consultation. Documentation has been reviewed. I agree with assessment and plan.
[2018-07-23 16:26] VITALS: BP 124/91; PULSE 95; RESP 14; TEMP 36.6; O2SAT 98
[2018-07-23] MEDS: cefTRIAXone 2,000 MG VIAL 1000 MG IM (16:46)
--- NOTE | 2018-07-23 17:14 | PC.NURSE ---
Pt states I just had vital signs done when I told her that I needed to do them. Upon going to chart, pt had not had them done after injection.
== END 2018-07-23 17:09 | disposition home or self-care (01) ==
PROVIDERS: Emergency Medicine; Emergency Provider Nurse Practitioner; PCP Family Medicine
DX: N39.0 Urinary tract infection, site not specified (principal)
CPT/HCPCS: 81001; 87077; 87086; 87147; 96372; 99282; 99283; J0696

== ENCOUNTER 2018-07-24 08:43 | Emergency (ER) | payer OTHER, SELFPAY ==
[2018-07-24 09:03] VITALS: BP 187/100; PULSE 99; RESP 14; TEMP 36.6; O2SAT 100
[2018-07-24] MEDS: SODIUM CHLORIDE 0.9% 1,000 ML 1000 ML IV (10:05)
[2018-07-24] MEDS: KETOROLAC 60 MG/2 ML VIAL 15 MG IV (10:06)
--- NOTE | 2018-07-24 10:14 | PC.NURSE ---
Pt given toradol 15 mg IVP, recieved but states it does not work for her and would like something else. Provider made aware.
[2018-07-24 10:17] VITALS: BP 158/85; PULSE 82; RESP 16; O2SAT 98
--- NOTE | 2018-07-24 10:17 | ED.FEMALEGU ---
HPI - Female Genitourinary General Chief complaint: Urogenital-Female Stated complaint: UTI Time Seen by Provider: 07/24/18 09:24 Source: patient Mode of arrival: ambulatory Limitations: no limitations History of Present Illness HPI Narrative: Patient is a 53-year-old female who has right flank pain. she has history of chronic UTI. She was seen evaluated here yesterday got a shot of Toradol, says that it helped only in that is now back. She actually looks pretty well. No fever no chills. Just persistent right flank pain. urine looks clear. Did have bacteria in it from yesterday but she is colonized. Related Data Home Medications Medication Instructions Recorded Confirmed albuterol sulfate [Proventil HFA] 2 puff INH Q4HP PRN #0 01/08/13 06/13/18 hydroxyzine HCl 25 mg PO TID PRN #0 01/08/13 07/24/18 magnesium oxide 400 mg PO BEDTIME #0 tab 01/08/13 07/24/18 duloxetine 60 mg PO DAILY #0 07/04/17 07/24/18 gabapentin [Neurontin] 600 mg PO TID #0 07/04/17 07/24/18 multivitamin [Multiple Vitamins] 1 tab PO QDAY #0 07/04/17 09/26/17 zolpidem [Ambien] 10 mg PO HS PRN #0 07/04/17 07/24/18 Probiotic 1 tab PO BID 09/26/17 09/26/17 amitriptyline 150 mg PO BEDTIME 09/26/17 07/24/18 insulin NPH isoph U-100 human 15 units SUB-Q BEDTIME 09/26/17 07/24/18 [Humulin N NPH Insulin KwikPen] lisinopril 10 mg PO DAILY 09/26/17 07/24/18 omeprazole 20 mg PO BID 09/26/17 07/24/18 ondansetron 1 tab TRANSLINGUAL Q6H PRN 09/26/17 07/24/18 potassium chloride 20 meq PO QNOON 09/26/17 07/24/18 rivaroxaban [Xarelto] 20 mg PO DAILY 09/26/17 09/26/17 vitamin E 1 cap PO DAILY 09/26/17 09/26/17 lorazepam 0.5 mg PO BID PRN 05/30/18 07/24/18 aspirin 81 mg PO DAILY 06/13/18 07/24/18 Previous Rx's Medication Instructions Recorded oxycodone-acetaminophen 1 tab PO Q4-6H PRN #15 tab 02/18/18 hydrocodone-acetaminophen [[place]] 1 tab PO Q4-6H PRN #6 tab 04/02/18 sulfamethoxazole-trimethoprim 1 tab PO BID #14 tab 07/23/18 [Bactrim DS] Allergies Allergy/AdvReac Type Severity Reaction Status Date / Time mupirocin Allergy Unknown Verified 07/24/18 09:07 naproxen Allergy Unknown Verified 07/24/18 09:07 Penicillins Allergy Unknown SINCE Verified 07/24/18 09:07 CHILDHOOD droperidol AdvReac Unknown Verified 07/24/18 09:07 fenofibrate [FENOFIBRATE] AdvReac Unknown Verified 07/24/18 09:07 ibuprofen AdvReac Unknown NAUSEA Verified 07/24/18 09:07 metformin [METFORMIN] AdvReac Unknown Verified 07/24/18 09:07 metoclopramide AdvReac Unknown BECAME Verified 07/24/18 09:07 JITTERY AND ANXIOUS nitrofurantoin AdvReac Unknown NAUSEA Verified 07/24/18 09:07 Review of Systems Review of Systems GENERAL: Denies chills, fatigue, malaise, fever, sweats, travel HEENT: Denies sinus pain, ear pain, sore throat, difficulty swallowing, neck pain RESPIRATORY: Denies dyspnea, cough, wheezing, hemoptysis, sputum. CARDIOVASCULAR: Denies chest pain, palpitations, orthopnea, edema GASTROINTESTINAL: Denies nausea, vomiting, abdominal pain, diarrhea, constipation, melena. : See HPI MUSCULOSKELETAL: Denies weakness, joint pain, or bony pain SKIN: No rash, no erythema, no pruritus NEUROLOGIC: Denies weakness, dizziness, headache, numbness, change in speech, confusion PSYCHIATRIC: No concerning psychosocial issues. 12 point review of systems is negative except for those stated above and HPI [facility] Medical History Anxiety (Chronic) Endometriosis (Chronic) Fibromyalgia (Chronic) Heart palpitations (Chronic) History of COPD (Chronic) History of asthma (Chronic) History of chronic hypertension (Chronic) History of depression (Chronic) History of gastrointestinal ulcer (Chronic) History of kidney stones (Chronic) History of migraine (Chronic) History of panic attacks (Chronic) History of type 2 diabetes mellitus (Chronic) Interstitial cystitis (Chronic) Port-a-cath in place (Chronic) UTI (urinary tract infection) (Chronic) Surgical History S/P appendectomy (Resolved) Status post hysterectomy (Resolved) Family History Other Family history non-contributory Social History Smoking Status: Current every day smoker Family History Other Family history non-contributory Social History Smoking Status: Current every day smoker Exam Initial Vital Signs Initial Vital Signs: Vital Signs Temperature 97.9 F 07/24/18 09:03 Pulse Rate 99 H 07/24/18 09:03 Respiratory Rate 14 07/24/18 09:03 Blood Pressure 187/100 H 07/24/18 09:03 Pulse Oximetry 100 07/24/18 09:03 GENERAL: Alert well-appearing female and in no acute distress. HEENT: Head atraumatic,EOMI, pupils reactive, CARDIOVASCULAR: Regular rate and rhythm without murmurs, rubs or gallops. RESPIRATORY: Breath sounds equal bilaterally, no wheezes rales or rhonchi. ABDOMEN: Soft, nontender. Normoactive bowel sounds all 4 quadrants. No guarding or rebound. ostomy in place right lower quadrant clear urine finger : Right CVA tenderness EXTREMITIES: Normal range of motion, no clubbing or edema. Neurovascularly intact NEUROLOGICAL: Alert and oriented x4.Normal gait and speech. Cranial nerves II through XII grossly intact. SKIN: Warm, dry, no laceration, no petechiae, no rashes or lesions. Course Orders Ordered: ED Orders 07/24/18 10:01 Complete Blood Count AUTO DIFF Stat Comprehensive Metabolic Panel Stat Procalcitonin Stat 07/24/18 10:26 Blood Culture Stat Lactate (Lactic Acid) Stat 07/24/18 10:42 CT abdomen pelvis w con Stat Discontinued Medications Sodium Chloride (Normal Saline 0.9%) 1,000 mls @ 1,000 mls/hr IV CONT ISSA Last Infusion: 07/24/18 11:20 Dose: 0 mls/hr Admin: 07/24/18 10:05 Dose: 1,000 mls/hr Ketorolac Tromethamine (Toradol) 15 mg IV NOW ONE Stop: 07/24/18 09:26 Last Admin: 07/24/18 10:06 Dose: 15 mg Vital Signs - 8 hr 07/24/18 09:03 07/24/18 10:17 Temperature 97.9 F Pulse Rate 99 H 82 Respiratory Rate 14 16 Blood Pressure 187/100 H Blood Pressure [Left Arm] 158/85 H Pulse Oximetry 100 98 MDM - Female Genitourinary Lab Data Attestation: I reviewed the patient's lab results. Result diagrams: 07/24/18 10:01 07/24/18 10:01 Lab Results 07/24/18 07/24/18 07/24/18 Range/Units 10:01 10:01 10:01 WBC 7.3 (4.5-11.0) X10^3/uL RBC 4.16 (4.0-5.2) X10^6/uL Hgb 13.1 (12.0-16.0) g/dL Hct 39.0 (36-46) % MCV 93.6 (80-100) fL MCH 31.5 (26-34) PG MCHC 33.6 (30-36) % RDW 13.9 (11.6-14.8) % Plt Count 347 (150-400) X10^3/uL Neut % (Auto) 61.8 (50-75) % Lymph % (Auto) 27.6 (25-40) % Sandoval % (Auto) 8.6 (3-14) % Eos % (Auto) 1.2 L (2-4) % Baso % (Auto) 0.8 (0-2) % Neut # (Auto) 4500 (0349-7443) /uL Lymph # (Auto) 2000 (5637-6604) /uL Sandoval # (Auto) 600 (0-900) /uL Eos # (Auto) 100 (0-450) /uL Baso # (Auto) 100 (0-100) /uL Sodium 135 L (137-145) mmol/L Potassium 5.1 (3.4-5.1) mmol/L Chloride 100 (98-107) mmol/L Carbon Dioxide 24 (22-32) mmol/L BUN 21 H (7-17) mg/dL Creatinine 0.50 L (0.52-1.04) mg/dL Estimated GFR > 60.0 (>60) mL/min BUN/Creatinine Ratio 42.0 H (6-22) Glucose 278 H (70-100) mg/dL Lactate (0.7-2.1) mmol/L Calcium 9.6 (8.4-10.2) mg/dL Total Bilirubin 0.3 (0.2-1.3) mg/dL AST 41 H (14-36) IU/L ALT 9 (9-52) IU/L Alkaline Phosphatase 112 (38-126) U/L Total Protein 7.8 (6.3-8.2) g/dL Albumin 4.6 (3.5-5.0) g/dL Globulin 3.2 (1.7-4.1) g/dL Albumin/Globulin Ratio 1.4 (1.0-2.8) Procalcitonin < 0.05 (<0.5) ng/mL 07/24/18 Range/Units 10:26 WBC (4.5-11.0) X10^3/uL RBC (4.0-5.2) X10^6/uL Hgb (12.0-16.0) g/dL Hct (36-46) % MCV (80-100) fL MCH (26-34) PG MCHC (30-36) % RDW (11.6-14.8) % Plt Count (150-400) X10^3/uL Neut % (Auto) (50-75) % Lymph % (Auto) (25-40) % Sandoval % (Auto) (3-14) % Eos % (Auto) (2-4) % Baso % (Auto) (0-2) % Neut # (Auto) (6202-6465) /uL Lymph # (Auto) (8500-3931) /uL Sandoval # (Auto) (0-900) /uL Eos # (Auto) (0-450) /uL Baso # (Auto) (0-100) /uL Sodium (137-145) mmol/L Potassium (3.4-5.1) mmol/L Chloride (98-107) mmol/L Carbon Dioxide (22-32) mmol/L BUN (7-17) mg/dL Creatinine (0.52-1.04) mg/dL Estimated GFR (>60) mL/min BUN/Creatinine Ratio (6-22) Glucose (70-100) mg/dL Lactate 2.4 H (0.7-2.1) mmol/L Calcium (8.4-10.2) mg/dL Total Bilirubin (0.2-1.3) mg/dL AST (14-36) IU/L ALT (9-52) IU/L Alkaline Phosphatase (38-126) U/L Total Protein (6.3-8.2) g/dL Albumin (3.5-5.0) g/dL Globulin (1.7-4.1) g/dL Albumin/Globulin Ratio (1.0-2.8) Procalcitonin (<0.5) ng/mL Imaging Data CT scan - abdomen: Radiologist's impression: PROCEDURE: CT ABDOMEN PELVIS W CON INDICATIONS: right flank pain TECHNIQUE: After the administration of intravenous contrast, 5 mm thick sections acquired from the diaphragm to the symphysis. 5 mm coronal and sagittal reformats were acquired. For radiation dose reduction, the following was used: automated exposure control, adjustment of mA and/or kV according to patient size. COMPARISON: [facility], CT, CT ABDOMEN PELVIS W CON, 04/02/2018, 16:16. FINDINGS: Image quality: Excellent. ABDOMEN: Lung bases: Lung bases are clear. Heart size is normal. Solid organs: There is hepatic steatosis. No focal liver masses. Gallbladder is unremarkable. Biliary system is non dilated. Pancreas enhances normally. Spleen is normal in size and enhancement. No adrenal nodules. Patient is status post cystectomy and hysterectomy and ileal conduit formation. Previously, there was bilateral moderate hydronephrosis and hydroureter down to the level of the ileal conduit. There is no longer any hydronephrosis. The proximal right ureter is mildly dilated. The left ureter is nondilated. The The kidneys enhance symmetrically. There is no renal mass. Peritoneum and bowel: Bowel loops demonstrate normal wall thickness and caliber. No free fluid or air. No abscess. Moderate fecal debris. Nodes and vessels: No retroperitoneal or mesenteric adenopathy by size criteria. There is diffuse atherosclerosis. At the level of the aortic bifurcation, there is bilateral proximal common iliac artery stenosis, which is at least moderate. The common iliacs and external iliacs are diffusely narrowed. Miscellaneous: No ventral hernias. PELVIS: Genitourinary: Bladder wall thickness is normal. Miscellaneous: No inguinal hernias or adenopathy. Bones: No suspicious bony lesions. No vertebral body compression fractures. IMPRESSION: 1. Remote hysterectomy, cystectomy, ileal conduit. 2. Interval resolution bilateral hydronephrosis and dilatation of the left ureter. There is mild dilatation of the proximal right ureter, improved from the prior study. 3. Bilateral proximal common iliac artery stenoses, likely at least moderate. Question: Does this patient have claudication symptoms? 4. Moderate fecal debris. 5. Hepatic steatosis. Comment: Findings were discussed with Dr. Montoya at the time of study dictation. Dictated by: Ayush Partida M.D. on 07/24/2018 at 10:55 MDM Narrative Medical decision making narrative: At this time patient does not appear septic. Urine is likely colonized it appears clear. She has some flank pain no cause of flank pain affects CT has improved from previous. She does some signs of ischemia on CT but no signs clinically. I discussed with her at length that she likely has peripheral vascular disease and that she needs to stop smoking. She states that she will never stop smoking and she will smoke until today she had dies. However at this time she really has no peripheral vascular disease ischemic signs or symptoms. Total did not help her pain she frequently requested something more for pain was offered Tylenol. She declined. Discharge Plan Departure Patient Disposition: Home Clinical Impression: Acute right flank pain Discharge Date/Time: 07/24/18 11:32 Interventions: ED Discharge Assessment Last Done: 07/24/18 11:31 Instructions: DI for Peripheral Vascular (Arterial) Disease Activity Restrictions/Additional Instructions: *You have been diagnosed with right flank pain, possible peripheral vascular disease *What to do: Urine blood work are all reassuring today. No cause of right flank pain. However you do have some arteries that may cause problems. Recommend following up with her primary care provider. Possible peripheral vascular disease. Stop smoking. *Continue to take medications as directed *Follow up with your primary care provider in 2-3 days *Return to ER if you should have or any new, worsening or concerning symptoms Prescriptions: No Action hydroxyzine HCl 25 MG tablet 25 mg PO TID PRN (Reason: Anxiety) Qty: 0 RF: 0 magnesium oxide 400 MG tablet 400 mg PO BEDTIME Qty: 0 RF: 0 albuterol sulfate [Proventil HFA] 90 MCG/PUFF HFA aerosol inhaler 2 puff INH Q4HP PRN (Reason: Shortness Of Breath) Qty: 0 RF: 0 duloxetine 60 MG capsule,delayed release(DR/EC) 60 mg PO DAILY Qty: 0 RF: 0 gabapentin [Neurontin] 300 MG capsule 600 mg PO TID Qty: 0 RF: 0 multivitamin [Multiple Vitamins] 1 EACH tablet 1 tab PO QDAY Qty: 0 RF: 0 zolpidem [Ambien] 10 MG tablet 10 mg PO HS PRN (Reason: Insomnia) Qty: 0 RF: 0 oxycodone-acetaminophen 5-325 mg tablet 1 tab PO Q4-6H PRN (Reason: pain) Qty: 15 RF: 0 lorazepam 0.5 mg tablet 0.5 mg PO BID PRN (Reason: Anxiety) RF: 0 aspirin 81 mg tablet,chewable 81 mg PO DAILY RF: 0 amitriptyline 50 mg tablet 150 mg PO BEDTIME RF: 0 potassium chloride 20 mEq tablet,ER particles/crystals 20 meq PO QNOON RF: 0 lisinopril 10 mg tablet 10 mg PO DAILY RF: 0 omeprazole 20 mg capsule,delayed release(DR/EC) 20 mg PO BID RF: 0 ondansetron 4 mg tablet,disintegrating 1 tab Translingual Q6H PRN (Reason: Nausea) RF: 0 Humulin N NPH Insulin KwikPen 100 unit/mL (3 mL) insulin pen 15 units Sub-Q BEDTIME RF: 0 Xarelto 20 mg tablet 20 mg PO DAILY RF: 0 Probiotic 1 tab PO BID RF: 0 vitamin E 1 cap PO DAILY RF: 0 hydrocodone-acetaminophen [[place]] 5-325 mg tablet 1 tab PO Q4-6H PRN (Reason: pain) Qty: 6 RF: 0 sulfamethoxazole-trimethoprim [Bactrim DS] 800-160 mg tablet 1 tab PO BID Qty: 14 RF: 0 Referrals: Fadi Ko DO [Primary Care Provider] -
--- NOTE | 2018-07-24 10:17 | PC.NURSE ---
Pt now stating she wants to leave unless she gets more pain medication. Agreed to wait until provider is off phone.
[2018-07-24 10:22] LABS: Add Manual Diff / Slide Review NO; Basophils Absolute Auto 100 /uL (0-100); Basophils Percent Auto 0.8 % (0-2); Eosinophils Absolute Auto 100 /uL (0-450); Eosinophils Percent Auto 1.2 % (2-4); Hemoglobin 13.1 g/dL (12.0-16.0); Lymphocytes Absolute Auto 2000 /uL (1100-4500); Lymphocytes Percent Auto 27.6 % (25-40); Mean Corpuscular HGB Conc 33.6 % (30-36); Mean Corpuscular Hemoglobin 31.5 PG (26-34); Mean Corpuscular Volume 93.6 fL (80-100); Monocytes Absolute Auto 600 /uL (0-900); Monocytes Percent Auto 8.6 % (3-14); Neutrophils Absolute Auto 4500 /uL (1500-7000); Neutrophils Percent Auto 61.8 % (50-75); Platelet Count 347 X10^3/uL (150-400); Red Blood Cell Count 4.16 X10^6/uL (4.0-5.2); Red Cell Distribution Width 13.9 % (11.6-14.8); White Blood Cell Count 7.3 X10^3/uL (4.5-11.0)
[2018-07-24 10:30] LABS: Alanine Aminotransferase 9 IU/L (9-52); Albumin 4.6 g/dL (3.5-5.0); Albumin Globulin Ratio 1.4 (1.0-2.8); Alkaline Phosphatase 112 U/L (38-126); Aspartate Aminotransferase 41 IU/L (14-36); Bilirubin Total 0.3 mg/dL (0.2-1.3); Blood Urea Nitrogen 21 mg/dL (7-17); Calcium 9.6 mg/dL (8.4-10.2); Carbon Dioxide 24 mmol/L (22-32); Chloride 100 mmol/L (98-107); Estimated Glomerular Filt Rate > 60.0 mL/min (>60); Globulin 3.2 g/dL (1.7-4.1); Glucose 278 mg/dL (70-100); HEMOLYSIS 43 (0-50); Potassium 5.1 mmol/L (3.4-5.1); Sodium 135 mmol/L (137-145); Total Protein 7.8 g/dL (6.3-8.2)
--- NOTE | 2018-07-24 10:39 | PC.NURSE ---
Dr. Montoya states she would like labs / scan prior to more pain medication at this time. Pt angry but states she will stay for CT scan. Support person in room w/ her.
[2018-07-24 10:40] LABS: Procalcitonin < 0.05 ng/mL (<0.5)
--- NOTE | 2018-07-24 10:42 | DI.CT.S_ITS ---
PROCEDURE: CT ABDOMEN PELVIS W CON INDICATIONS: right flank pain TECHNIQUE: After the administration of intravenous contrast, 5 mm thick sections acquired from the diaphragm to the symphysis. 5 mm coronal and sagittal reformats were acquired. For radiation dose reduction, the following was used: automated exposure control, adjustment of mA and/or kV according to patient size. COMPARISON: [facility], CT, CT ABDOMEN PELVIS W CON, 04/02/2018, 16:16. FINDINGS: Image quality: Excellent. ABDOMEN: Lung bases: Lung bases are clear. Heart size is normal. Solid organs: There is hepatic steatosis. No focal liver masses. Gallbladder is unremarkable. Biliary system is non dilated. Pancreas enhances normally. Spleen is normal in size and enhancement. No adrenal nodules. Patient is status post cystectomy and hysterectomy and ileal conduit formation. Previously, there was bilateral moderate hydronephrosis and hydroureter down to the level of the ileal conduit. There is no longer any hydronephrosis. The proximal right ureter is mildly dilated. The left ureter is nondilated. The The kidneys enhance symmetrically. There is no renal mass. Peritoneum and bowel: Bowel loops demonstrate normal wall thickness and caliber. No free fluid or air. No abscess. Moderate fecal debris. Nodes and vessels: No retroperitoneal or mesenteric adenopathy by size criteria. There is diffuse atherosclerosis. At the level of the aortic bifurcation, there is bilateral proximal common iliac artery stenosis, which is at least moderate. The common iliacs and external iliacs are diffusely narrowed. Miscellaneous: No ventral hernias. PELVIS: Genitourinary: Bladder wall thickness is normal. Miscellaneous: No inguinal hernias or adenopathy. Bones: No suspicious bony lesions. No vertebral body compression fractures. IMPRESSION: 1. Remote hysterectomy, cystectomy, ileal conduit. 2. Interval resolution bilateral hydronephrosis and dilatation of the left ureter. There is mild dilatation of the proximal right ureter, improved from the prior study. 3. Bilateral proximal common iliac artery stenoses, likely at least moderate. Question: Does this patient have claudication symptoms? 4. Moderate fecal debris. 5. Hepatic steatosis. Comment: Findings were discussed with Dr. Montoya at the time of study dictation. Dictated by: Ayush Partida M.D. on 07/24/2018 at 10:55 Approved by: Ayush Partida M.D. on 07/24/2018 at 11:21
[2018-07-24 10:51] LABS: Lactate (Lactic Acid) 2.4 mmol/L (0.7-2.1)
[2018-07-24 12:33] LABS: Reflexed Lactate in 2 Hours Y
== END 2018-07-24 11:32 | disposition home or self-care (01) ==
PROVIDERS: Emergency Provider Emergency Medicine; PCP Family Medicine
DX: R10.9 Unspecified abdominal pain (principal)
CPT/HCPCS: 36415; 36591; 74177; 80053; 83605; 84145; 85025; 87040; 96361; 96374; 99283; 99284; J1885; Q9967

== ENCOUNTER 2018-08-30 03:49 | Emergency (ER) | payer OTHER, SELFPAY ==
[2018-08-30] VITALS (7 sets, daily range): BP systolic 127–145; BP diastolic 78–121; PULSE 93–113; RESP 16–26; TEMP 36.7–37.2; O2SAT 98–100; BMI 18.3
--- NOTE | 2018-08-30 03:57 | DI.RAD.S_ITS ---
PROCEDURE: XR CHEST 2V INDICATIONS: chest pain, shortness of breath TECHNIQUE: 2 views of the chest were acquired. COMPARISON: [facility], CR, XR CHEST 2V, 06/13/2018, 10:05. [facility], CR, XR CHEST 1V, 05/30/2018, 15:45. FINDINGS: Surgical changes and devices: None. Lungs and pleura: Lungs are clear. No pleural effusions or pneumothorax. Mediastinum: Mediastinal contours are normal. Heart size is normal. Bones and chest wall: No suspicious bony abnormalities. Soft tissues appear unremarkable. IMPRESSION: Normal for age, source of current chest pain and shortness of breath symptoms is not seen. Dictated by: Akbar Ortiz M.D. on 08/30/2018 at 6:55 Approved by: Akbar Ortiz M.D. on 08/30/2018 at 6:56
--- NOTE | 2018-08-30 04:03 | ED_ITS ---
HPI - Chest Pain General Chief Complaint: Shortness of Breath/Dyspnea Stated Complaint: thinks she has pneumonia, pain in chest, 102 temp Time Seen by Provider: 08/30/18 03:50 Source: patient Mode of arrival: ambulatory Limitations: no limitations History of Present Illness HPI narrative: 53-year-old female smoker, chronically ill with history of UTI pyelonephritis, chest pain and pneumonia presents with a chief complaint of 2 days of sharp and stabbing anterior chest pain, cough with yellowish sputum and fever as high as 102 at home. She denies nausea, vomiting or diarrhea. MD complaint: chest pain Onset (ago): day(s) Duration: constant Pain location: substernal Severity: moderate Quality: sharp Pain radiation: none Exacerbating factors: inspiration Associated symptoms: fever and cough Related Data Home Medications Medication Instructions Recorded Confirmed albuterol sulfate [Proventil HFA] 2 puff INH Q4HP PRN #0 01/08/13 06/13/18 hydroxyzine HCl 25 mg PO TID PRN #0 01/08/13 07/24/18 magnesium oxide 400 mg PO BEDTIME #0 tab 01/08/13 07/24/18 duloxetine 60 mg PO DAILY #0 07/04/17 07/24/18 gabapentin [Neurontin] 600 mg PO TID #0 07/04/17 07/24/18 multivitamin [Multiple Vitamins] 1 tab PO QDAY #0 07/04/17 09/26/17 zolpidem [Ambien] 10 mg PO HS PRN #0 07/04/17 07/24/18 Probiotic 1 tab PO BID 09/26/17 09/26/17 amitriptyline 150 mg PO BEDTIME 09/26/17 07/24/18 insulin NPH isoph U-100 human 15 units SUB-Q BEDTIME 09/26/17 07/24/18 [Humulin N NPH Insulin KwikPen] lisinopril 10 mg PO DAILY 09/26/17 07/24/18 omeprazole 20 mg PO BID 09/26/17 07/24/18 ondansetron 1 tab TRANSLINGUAL Q6H PRN 09/26/17 07/24/18 potassium chloride 20 meq PO QNOON 09/26/17 07/24/18 rivaroxaban [Xarelto] 20 mg PO DAILY 09/26/17 09/26/17 vitamin E 1 cap PO DAILY 09/26/17 09/26/17 lorazepam 0.5 mg PO BID PRN 05/30/18 07/24/18 aspirin 81 mg PO DAILY 06/13/18 07/24/18 Previous Rx's Medication Instructions Recorded oxycodone-acetaminophen 1 tab PO Q4-6H PRN #15 tab 02/18/18 hydrocodone-acetaminophen [[place]] 1 tab PO Q4-6H PRN #6 tab 04/02/18 sulfamethoxazole-trimethoprim 1 tab PO BID #14 tab 07/23/18 [Bactrim DS] levofloxacin [Levaquin] 750 mg PO DAILY #10 tab 08/30/18 Allergies Allergy/AdvReac Type Severity Reaction Status Date / Time mupirocin Allergy Unknown Verified 08/30/18 04:06 naproxen Allergy Unknown Verified 08/30/18 04:06 Penicillins Allergy Unknown SINCE Verified 08/30/18 04:06 CHILDHOOD droperidol AdvReac Unknown Verified 08/30/18 04:06 fenofibrate [FENOFIBRATE] AdvReac Unknown Verified 08/30/18 04:06 ibuprofen AdvReac Unknown NAUSEA Verified 08/30/18 04:06 metformin [METFORMIN] AdvReac Unknown Verified 08/30/18 04:06 metoclopramide AdvReac Unknown BECAME Verified 08/30/18 04:06 JITTERY AND ANXIOUS nitrofurantoin AdvReac Unknown NAUSEA Verified 08/30/18 04:06 Review of Systems Constitutional Reports chills, Reports fever(s), Denies lethargy and Denies weakness Eyes Denies change in vision, Denies eye discharge, Denies irritation and Denies loss of vision ENT Ears, Nose, Mouth, and Throat: Denies change in voice, Denies neck pain and Denies sore throat Cardiovascular Reports chest pain, Denies irregular heart rhythm, Denies lightheadedness, Denies palpitations, Reports dyspnea, Reports dyspnea on exertion and Denies orthopnea Respiratory Reports change in phlegm color, Reports cough, Reports dyspnea, Reports dyspnea on exertion and Denies wheezing Gastrointestinal Gastrointestinal: Denies abdominal pain, Denies change in bowel habits, Denies diarrhea, Denies nausea and Denies vomiting Genitourinary Denies hematuria, Denies flank pain, Denies urinary incontinence and Denies urinary urgency Musculoskeletal Denies neck pain Integumentary/Breasts Denies pruritus, Denies erythema, Denies rash and Denies wounds Neurologic Denies confusion, Denies loss of vision and Denies weakness Psychiatric Denies anxiety, Denies confusion, Denies depression, Denies homicidal ideation and Denies suicidal ideation Endocrine Denies palpitations Hematologic/Lymphatic Denies easy bruising Allergic/Immunologic Denies wheezing PFSH Social History Smoking Status: Current every day smoker Exam Narrative Exam Narrative: GENERAL: 53F appears older than stated age, she is tearful and anxious, AOx3. Appears chronically old HEAD: Atraumatic. Normocephalic. No temporal or scalp tenderness. EYES: Pupils equal round and reactive. Extraocular motions intact. No scleral icterus. No injection or drainage. ENT: Poor dentitionNose without bleeding, purulent drainage or septal hematoma. Throat without erythema, tonsillar hypertrophy or exudate. Uvula midline. Airway patent. NECK: Trachea midline. No JVD or lymphadenopathy. Supple, nontender, no meningeal signs. CARDIOVASCULAR: Regular rate and rhythm without murmurs, gallops, or rubs. RESPIRATORY: Clear to auscultation. Decreased breathsounds B/L GASTROINTESTINAL: Abdomen soft, non-tender, nondistended. No hepato- splenomegaly, or palpable masses. No guarding. EXTREMITIES: No clubbing, cyanosis, or edema. No joint tenderness, effusion, or edema noted. BACK: Nontender without deformity or crepitance. No flank tenderness. NEURO: AOx3. SKIN: No rash or erythema. Initial Vital Signs Initial Vital Signs: Vital Signs Temperature 99.0 F 08/30/18 03:49 Pulse Rate 113 H 08/30/18 03:49 Respiratory Rate 22 08/30/18 03:49 Blood Pressure 145/121 H 08/30/18 03:49 Pulse Oximetry 98 08/30/18 03:49 Course Orders Ordered: Discontinued Medications Acetaminophen/Codeine Phosphate (Tylenol Oral Arielle 120-12 Mg/5 Ml) 10 ml PO NOW ONE Stop: 08/30/18 04:29 Last Admin: 08/30/18 04:39 Dose: 10 ml Sodium Chloride (Normal Saline 0.9%) 1,000 mls @ 150 mls/hr IV CONT ISSA Last Infusion: 08/30/18 08:12 Dose: 0 mls/hr Infusion: 08/30/18 06:47 Dose: 999 mls/hr Infusion: 08/30/18 04:55 Dose: 0 mls/hr Infusion: 08/30/18 04:39 Dose: 150 mls/hr Infusion: 08/30/18 04:18 Dose: 0 mls/hr Admin: 08/30/18 04:17 Dose: 150 mls/hr Levofloxacin (Levaquin) 750 mg in 150 mls @ 100 mls/hr IV NOW ONE Stop: 08/30/18 06:16 Last Infusion: 08/30/18 06:19 Dose: 0 mls/hr Admin: 08/30/18 04:54 Dose: 100 mls/hr Sodium Chloride (Normal Saline 0.9%) 1,000 mls @ 1,000 mls/hr IV BOLUS ONE Stop: 08/30/18 05:46 Last Infusion: 08/30/18 06:46 Dose: 0 mls/hr Infusion: 08/30/18 06:20 Dose: 999 mls/hr Infusion: 08/30/18 05:01 Dose: 400 mls/hr Admin: 08/30/18 04:55 Dose: 1,000 mls/hr Vital Signs - 8 hr 08/30/18 03:49 08/30/18 05:00 08/30/18 05:30 Temperature 99.0 F Pulse Rate 113 H 103 H 99 H Respiratory Rate 22 Blood Pressure 145/121 H Blood Pressure [Left Arm] 127/80 131/78 Pulse Oximetry 98 08/30/18 06:00 Temperature Pulse Rate 97 H Respiratory Rate 16 Blood Pressure Blood Pressure [Left Arm] 130/81 Pulse Oximetry MDM - Chest Pain Medical Records Data Attestation: I reviewed the patient's medical records. Lab Data Attestation: I reviewed the patient's lab results. Result diagrams: 08/30/18 04:20 08/30/18 04:20 Lab Results 08/30/18 08/30/18 08/30/18 Range/Units 04:20 04:20 04:20 WBC 11.5 H (4.5-11.0) X10^3/uL RBC 4.04 (4.0-5.2) X10^6/uL Hgb 12.6 (12.0-16.0) g/dL Hct 38.0 (36-46) % MCV 94.0 (80-100) fL MCH 31.3 (26-34) PG MCHC 33.3 (30-36) % RDW 12.7 (11.6-14.8) % Plt Count 316 (150-400) X10^3/uL Neut % (Auto) 65.4 (50-75) % Lymph % (Auto) 26.9 (25-40) % [place] % (Auto) 5.7 (3-14) % Eos % (Auto) 1.4 L (2-4) % Baso % (Auto) 0.6 (0-2) % Neut # (Auto) 7500 H (9977-6890) /uL Lymph # (Auto) 3100 (4598-2244) /uL [place] # (Auto) 700 (0-900) /uL Eos # (Auto) 200 (0-450) /uL Baso # (Auto) 100 (0-100) /uL Sodium 134 L (137-145) mmol/L Potassium 3.9 (3.4-5.1) mmol/L Chloride 100 (98-107) mmol/L Carbon Dioxide 19 L (22-32) mmol/L BUN 16 (7-17) mg/dL Creatinine 0.60 (0.52-1.04) mg/dL Estimated GFR > 60.0 (>60) mL/min BUN/Creatinine Ratio 26.7 H (6-22) Glucose 410 H (70-100) mg/dL Lactate (0.7-2.1) mmol/L Calcium 9.8 (8.4-10.2) mg/dL Total Bilirubin 0.4 (0.2-1.3) mg/dL AST 16 (14-36) IU/L ALT 10 (9-52) IU/L Alkaline Phosphatase 109 (38-126) U/L Total Creatine Kinase 38 (30-135) U/L CK-MB (CK-2) TNP CK-MB (CK-2) Rel Index TNP Troponin I < 0.012 (0.01-0.034) ng/mL B-Natriuretic Peptide < 100 (<100) Total Protein 7.1 (6.3-8.2) g/dL Albumin 4.0 (3.5-5.0) g/dL Globulin 3.1 (1.7-4.1) g/dL Albumin/Globulin Ratio 1.3 (1.0-2.8) Lipase 25 (23-300) U/L Procalcitonin < 0.05 (<0.5) ng/mL Urine Color Urine Appearance Urine pH (4.5-8.0) Ur Specific [place] (1.000-1.035) Urine Protein (Negative) Urine Glucose (UA) (Negative) g/dL Urine Ketones (NEGATIVE) Urine Occult Blood (Negative) Urine Nitrate (Negative) Urine Bilirubin (NEGATIVE) Urine Urobilinogen (0.2) E.U./dL Ur Leukocyte Esterase (NEGATIVE) Urine RBC (0-5/HPF) Urine WBC (0-5/HPF) Ur Squamous Epith Cells (0-5/HPF) Amorphous Sediment Urine Bacteria (None) Ur Culture Indicated? 08/30/18 08/30/18 08/30/18 Range/Units 04:20 04:50 06:40 WBC (4.5-11.0) X10^3/uL RBC (4.0-5.2) X10^6/uL Hgb (12.0-16.0) g/dL Hct (36-46) % MCV (80-100) fL MCH (26-34) PG MCHC (30-36) % RDW (11.6-14.8) % Plt Count (150-400) X10^3/uL Neut % (Auto) (50-75) % Lymph % (Auto) (25-40) % [place] % (Auto) (3-14) % Eos % (Auto) (2-4) % Baso % (Auto) (0-2) % Neut # (Auto) (4760-1398) /uL Lymph # (Auto) (6446-0882) /uL [place] # (Auto) (0-900) /uL Eos # (Auto) (0-450) /uL Baso # (Auto) (0-100) /uL Sodium (137-145) mmol/L Potassium (3.4-5.1) mmol/L Chloride (98-107) mmol/L Carbon Dioxide (22-32) mmol/L BUN (7-17) mg/dL Creatinine (0.52-1.04) mg/dL Estimated GFR (>60) mL/min BUN/Creatinine Ratio (6-22) Glucose (70-100) mg/dL Lactate 3.0 H 2.1 (0.7-2.1) mmol/L Calcium (8.4-10.2) mg/dL Total Bilirubin (0.2-1.3) mg/dL AST (14-36) IU/L ALT (9-52) IU/L Alkaline Phosphatase (38-126) U/L Total Creatine Kinase (30-135) U/L CK-MB (CK-2) CK-MB (CK-2) Rel Index Troponin I (0.01-0.034) ng/mL B-Natriuretic Peptide (<100) Total Protein (6.3-8.2) g/dL Albumin (3.5-5.0) g/dL Globulin (1.7-4.1) g/dL Albumin/Globulin Ratio (1.0-2.8) Lipase (23-300) U/L Procalcitonin (<0.5) ng/mL Urine Color Yellow Urine Appearance Sl cloudy Urine pH 7.0 (4.5-8.0) Ur Specific [place] 1.015 (1.000-1.035) Urine Protein Trace H (Negative) Urine Glucose (UA) 1+ H (Negative) g/dL Urine Ketones Trace H (NEGATIVE) Urine Occult Blood 1+ H (Negative) Urine Nitrate Positive H (Negative) Urine Bilirubin Negative (NEGATIVE) Urine Urobilinogen 0.2 (0.2) E.U./dL Ur Leukocyte Esterase Negative (NEGATIVE) Urine RBC 0-1/hpf (0-5/HPF) Urine WBC 1-5/hpf (0-5/HPF) Ur Squamous Epith Cells 0-1 /hpf (0-5/HPF) Amorphous Sediment 1+ Urine Bacteria Many (>30) H (None) Ur Culture Indicated? Specimen cultured ECG Data Attestation: I personally reviewed and interpreted this ECG as follows: Prior ECG tracings: available for review Interpretation: sinus tachycardia at 111. No ectopy of ST changes. VT 155, QRS 91, QT 359 (patient crying during EKG) Discharge Plan Departure Patient Disposition: Home Clinical Impression: Atypical pneumonia Discharge Date/Time: 08/30/18 08:15 Interventions: ED Discharge Assessment Last Done: 08/30/18 08:00 Instructions: DI for Atypical Pneumonia Activity Restrictions/Additional Instructions: *You have been diagnosed with [atypical pneumonia] *What to do: *Take medications as directed: Your antbiotic has been sent to [facility] at your request *Follow up with your primary care provider in 2-3 days, call for an appointment. Let them know you were seen in the Emergency Department and that we ask that you be seen in follow up *Return to ER if you should have any new, worsening or concerning symptoms Prescriptions: New levofloxacin [Levaquin] 750 mg tablet 750 mg PO DAILY Qty: 10 RF: 0 No Action hydroxyzine HCl 25 MG tablet 25 mg PO TID PRN (Reason: Anxiety) Qty: 0 RF: 0 magnesium oxide 400 MG tablet 400 mg PO BEDTIME Qty: 0 RF: 0 albuterol sulfate [Proventil HFA] 90 MCG/PUFF HFA aerosol inhaler 2 puff INH Q4HP PRN (Reason: Shortness Of Breath) Qty: 0 RF: 0 duloxetine 60 MG capsule,delayed release(DR/EC) 60 mg PO DAILY Qty: 0 RF: 0 gabapentin [Neurontin] 300 MG capsule 600 mg PO TID Qty: 0 RF: 0 multivitamin [Multiple Vitamins] 1 EACH tablet 1 tab PO QDAY Qty: 0 RF: 0 zolpidem [Ambien] 10 MG tablet 10 mg PO HS PRN (Reason: Insomnia) Qty: 0 RF: 0 oxycodone-acetaminophen 5-325 mg tablet 1 tab PO Q4-6H PRN (Reason: pain) Qty: 15 RF: 0 lorazepam 0.5 mg tablet 0.5 mg PO BID PRN (Reason: Anxiety) RF: 0 aspirin 81 mg tablet,chewable 81 mg PO DAILY RF: 0 amitriptyline 50 mg tablet 150 mg PO BEDTIME RF: 0 potassium chloride 20 mEq tablet,ER particles/crystals 20 meq PO QNOON RF: 0 lisinopril 10 mg tablet 10 mg PO DAILY RF: 0 omeprazole 20 mg capsule,delayed release(DR/EC) 20 mg PO BID RF: 0 ondansetron 4 mg tablet,disintegrating 1 tab Translingual Q6H PRN (Reason: Nausea) RF: 0 Humulin N NPH Insulin KwikPen 100 unit/mL (3 mL) insulin pen 15 units Sub-Q BEDTIME RF: 0 Xarelto 20 mg tablet 20 mg PO DAILY RF: 0 Probiotic 1 tab PO BID RF: 0 vitamin E 1 cap PO DAILY RF: 0 hydrocodone-acetaminophen [[place]] 5-325 mg tablet 1 tab PO Q4-6H PRN (Reason: pain) Qty: 6 RF: 0 sulfamethoxazole-trimethoprim [Bactrim DS] 800-160 mg tablet 1 tab PO BID Qty: 14 RF: 0 Referrals: Fadi Ko DO [Primary Care Provider] -
[2018-08-30] MEDS: SODIUM CHLORIDE 0.9% 1,000 ML 150 ML IV (04:17)
[2018-08-30 04:34] LABS: Add Manual Diff / Slide Review NO; Basophils Absolute Auto 100 /uL (0-100); Basophils Percent Auto 0.6 % (0-2); Eosinophils Absolute Auto 200 /uL (0-450); Eosinophils Percent Auto 1.4 % (2-4); Hemoglobin 12.6 g/dL (12.0-16.0); Lymphocytes Absolute Auto 3100 /uL (1100-4500); Lymphocytes Percent Auto 26.9 % (25-40); Mean Corpuscular HGB Conc 33.3 % (30-36); Mean Corpuscular Hemoglobin 31.3 PG (26-34); Monocytes Absolute Auto 700 /uL (0-900); Monocytes Percent Auto 5.7 % (3-14); Neutrophils Absolute Auto 7500 /uL (1500-7000); Neutrophils Percent Auto 65.4 % (50-75); Platelet Count 316 X10^3/uL (150-400); Red Blood Cell Count 4.04 X10^6/uL (4.0-5.2); Red Cell Distribution Width 12.7 % (11.6-14.8); White Blood Cell Count 11.5 X10^3/uL (4.5-11.0)
[2018-08-30] MEDS: ACETAMINOPHEN/CODEINE SOLN 5 ML SOLUTION 10 ML PO (04:39)
[2018-08-30 04:45] LABS: Alanine Aminotransferase 10 IU/L (9-52); Albumin Globulin Ratio 1.3 (1.0-2.8); Alkaline Phosphatase 109 U/L (38-126); Aspartate Aminotransferase 16 IU/L (14-36); BUN Creatinine Ratio 26.7 (6-22); Bilirubin Total 0.4 mg/dL (0.2-1.3); Blood Urea Nitrogen 16 mg/dL (7-17); Calcium 9.8 mg/dL (8.4-10.2); Carbon Dioxide 19 mmol/L (22-32); Chloride 100 mmol/L (98-107); Creatine Kinase 38 U/L (30-135); Estimated Glomerular Filt Rate > 60.0 mL/min (>60); Globulin 3.1 g/dL (1.7-4.1); Glucose 410 mg/dL (70-100); HEMOLYSIS < 15 (0-50); Lipase 25 U/L (23-300); Potassium 3.9 mmol/L (3.4-5.1); Sodium 134 mmol/L (137-145); Total Protein 7.1 g/dL (6.3-8.2)
[2018-08-30] MEDS: levoFLOXacin 750 MG/150 ML PIGGYBACK 100 MG IV (04:54)
[2018-08-30] MEDS: SODIUM CHLORIDE 0.9% 1,000 ML 1000 ML IV (04:55)
[2018-08-30 04:57] LABS: Troponin I < 0.012 ng/mL (0.01-0.034)
[2018-08-30 05:01] LABS: Appearance Urine UA SL CLOUDY; Bilirubin Urine UA NEGATIVE (NEGATIVE); Color Urine UA YELLOW; Glucose Urine UA 1+ g/dL (Negative); Ketones Urine UA TRACE (NEGATIVE); Leukocyte Esterase Urine UA NEGATIVE (NEGATIVE); Nitrite Urine UA POSITIVE (Negative); Occult Blood Urine UA 1+ (Negative); Protein Urine UA TRACE (Negative); Specific Gravity Urine UA 1.015 (1.000-1.035); Urobilinogen Urine UA 0.2 E.U./dL (0.2)
[2018-08-30 05:04] LABS: RBC Urine 0-1/HPF (0-5/HPF); WBC Urine 1-5/HPF (0-5/HPF)
[2018-08-30 05:05] LABS: Amorphous Sediment Urine 1+; Bacteria Urine Many (>30); Squamous Epithelial Cell Urine 0-1 /HPF (0-5/HPF)
[2018-08-30 05:08] LABS: Culture Indicated Urine Specimen Cultured
[2018-08-30 05:09] LABS: Procalcitonin < 0.05 ng/mL (<0.5)
[2018-08-30 05:12] LABS: B Type Natriuretic Peptide < 100 (<100)
[2018-08-30 06:28] LABS: Reflexed Lactate in 2 Hours Y
--- NOTE | 2018-08-30 06:48 | PC.NURSE ---
Per Dr Roman fluid rate increased to 999mL/hr.
[2018-08-30 07:09] LABS: Lactate 2HR (Lactic Acid Rflx) 2.1 mmol/L (0.7-2.1)
== END 2018-08-30 08:15 | disposition home or self-care (01) ==
PROVIDERS: Emergency Provider Emergency Medicine; PCP Family Medicine
DX: J18.9 Pneumonia, unspecified organism (principal); R07.89 Other chest pain
CPT/HCPCS: 36415; 36591; 71046; 80053; 81001; 82550; 83605; 83690; 83880; 84145; 84484; 85025; 87040; 87077; 87086; 87186; 93005; 96361; 96374; 99285; J1956

== ENCOUNTER 2018-10-04 13:31 | Emergency (ER) | payer OTHER, SELFPAY ==
[2018-10-04 13:33] VITALS: BP 143/103; PULSE 121; RESP 25; TEMP 37; O2SAT 93; BMI 18.0
--- NOTE | 2018-10-04 13:39 | DI.RAD.S_ITS ---
PROCEDURE: XR RIBS RT MIN 3V W CXR 1V INDICATIONS: fall w/ right rib pain TECHNIQUE: 2 views of the right ribs were acquired, along with a single view chest. COMPARISON: [facility], CR, XR CHEST 2V, 08/30/2018, 3:59. MEDIASTINUM: Mediastinal contours appear normal. Heart size is normal. IMPRESSION: Mild bibasilar alveolar infiltration, suspicious for pneumonia but in the setting of trauma mild pulmonary contusion or posttraumatic atelectasis also could has this appearance. A Dictated by: Akbar Ortiz M.D. on 10/04/2018 at 15:06 Approved by: Akbar Ortiz M.D. on 10/04/2018 at 15:07
--- NOTE | 2018-10-04 15:16 | DI.RAD.S_ITS ---
PROCEDURE: XR HAND LT MIN 3V INDICATIONS: hand pain sp fall TECHNIQUE: 3 views of the hand(s) acquired. COMPARISON: None FINDINGS: Bones: No fractures or dislocations. Carpal bones are normally aligned. No suspicious bony lesions. Soft tissues: No suspicious soft tissue calcifications. IMPRESSION: No acute fracture. No osseous lesion. If symptoms and/or clinical suspicion for pathology persist, further assessment with repeat, or advanced imaging (e.g., CT, MRI, or bone scan) may be helpful for further assessment. Dictated by: Kristian Bolton M.D. on 10/04/2018 at 15:51 Approved by: Kristian Bolton M.D. on 10/04/2018 at 15:52
--- NOTE | 2018-10-04 15:16 | DI.CT.S_ITS ---
PROCEDURE: CT HEAD/BRAIN WO CON INDICATIONS: glf, ? xarelto, unreliable historian TECHNIQUE: Noncontrast 4.5 mm thick angled axial sections acquired from the foramen magnum to the vertex, with coronal and sagittal reformats. For radiation dose reduction, the following was used: automated exposure control, adjustment of mA and/or kV according to patient size. COMPARISON: [facility], CT, HEAD WITHOUT CONTRAST, 11/06/2012, 11:29. FINDINGS: Image quality: Partially degraded by motion artifact. CSF spaces: Basal cisterns are patent. No extra-axial fluid collections. Ventricles are normal in size and shape. Brain: No midline shift. No intracranial masses or hemorrhage. Abel-white matter interface is normal. Skull and face: Calvarium and visualized facial bones are intact, without suspicious lesions. Sinuses: Visualized sinuses and mastoids are clear. IMPRESSION: No acute intracranial abnormality. Dictated by: Kristian Bolton M.D. on 10/04/2018 at 15:52 Approved by: Kristian Bolton M.D. on 10/04/2018 at 15:53
[2018-10-04] MEDS: LIDOCAINE PATCH 1 EACH ADH..PATCH TOP (16:14)
[2018-10-04 16:53] VITALS: BP 140/86; PULSE 111; RESP 18; O2SAT 97
--- NOTE | 2018-10-04 17:17 | PC.NURSE ---
Pt agitated. Initially refused IV (x 60 min) then allowed me to place IV. Denies SI/HI. Anxious. Verbally reassured. Pt stated she wanted to leave, told she was of course allowed to leave. She then stated she would stay and allow procedures.
[2018-10-04 17:20] LABS: Add Manual Diff / Slide Review NO; Basophils Absolute Auto 200 /uL (0-100); Basophils Percent Auto 0.7 % (0-2); Eosinophils Absolute Auto 100 /uL (0-450); Eosinophils Percent Auto 0.3 % (2-4); Hematocrit 37.2 % (36-46); Hemoglobin 12.7 g/dL (12.0-16.0); Lymphocytes Absolute Auto 3000 /uL (1100-4500); Lymphocytes Percent Auto 12.3 % (25-40); Mean Corpuscular HGB Conc 34.1 % (30-36); Mean Corpuscular Hemoglobin 31.4 PG (26-34); Mean Corpuscular Volume 92.1 fL (80-100); Monocytes Absolute Auto 700 /uL (0-900); Monocytes Percent Auto 2.8 % (3-14); Neutrophils Absolute Auto 20200 /uL (1500-7000); Neutrophils Percent Auto 83.9 % (50-75); Platelet Count 329 X10^3/uL (150-400); Red Blood Cell Count 4.04 X10^6/uL (4.0-5.2); White Blood Cell Count 24.1 X10^3/uL (4.5-11.0)
[2018-10-04 17:33] LABS: Alanine Aminotransferase 14 IU/L (9-52); Albumin 4.3 g/dL (3.5-5.0); Albumin Globulin Ratio 1.2 (1.0-2.8); Alkaline Phosphatase 122 U/L (38-126); Aspartate Aminotransferase 45 IU/L (14-36); BUN Creatinine Ratio 18.9 (6-22); Bilirubin Total 0.4 mg/dL (0.2-1.3); Blood Urea Nitrogen 17 mg/dL (7-17); Carbon Dioxide 20 mmol/L (22-32); Chloride 109 mmol/L (98-107); Estimated Glomerular Filt Rate > 60.0 mL/min (>60); Globulin 3.6 g/dL (1.7-4.1); Glucose 149 mg/dL (70-100); HEMOLYSIS 15 (0-50); Potassium 3.9 mmol/L (3.4-5.1); Sodium 138 mmol/L (137-145); Total Protein 7.9 g/dL (6.3-8.2)
[2018-10-04 18:16] LABS: Lactate (Lactic Acid) 1.4 mmol/L (0.7-2.1)
--- NOTE | 2018-10-04 18:34 | ED.FALL ---
HPI - Fall <uXan Herrera MOUNT LOADER-BC - Last Filed: 10/04/18 18:41> General Chief Complaint: Trauma Stated Complaint: slipped on kitchen floor, right side pain Time Seen by Provider: 10/04/18 15:05 Source: patient Mode of arrival: ambulatory Limitations: no limitations History of Present Illness HPI Narrative: The patient is a 53-year-old current smoker with history of costochondritis and hyperglycemia who presents with a chief complaint of injuries after a fall. She states she slipped and landed with her right ribs on the floor at 8:00 p.m. last night. She denies any loss of consciousness. She denies any neck or back pain. She denies any abdominal pain. She complains of pain above her eye on her right side as well as left hand pain and right rib pain. She states it hurts to take a deep breath. She denies any fevers nausea vomiting or diarrhea. Related Data Home Medications Medication Instructions Recorded Confirmed albuterol sulfate [Proventil HFA] 2 puff INH Q4HP PRN #0 01/08/13 10/04/18 hydroxyzine HCl 25 mg PO TID PRN #0 01/08/13 10/04/18 magnesium oxide 400 mg PO BEDTIME #0 tab 01/08/13 10/04/18 duloxetine 60 mg PO DAILY #0 07/04/17 10/04/18 gabapentin [Neurontin] 600 mg PO TID #0 07/04/17 10/04/18 multivitamin [Multiple Vitamins] 1 tab PO DAILY #0 07/04/17 10/04/18 zolpidem [Ambien] 10 mg PO HS PRN #0 07/04/17 10/04/18 Probiotic 1 tab PO BID 09/26/17 10/04/18 amitriptyline 150 mg PO BEDTIME 09/26/17 10/04/18 insulin NPH isoph U-100 human 15 units SUB-Q BEDTIME 09/26/17 10/04/18 [Humulin N NPH Insulin KwikPen] lisinopril 10 mg PO DAILY 09/26/17 10/04/18 omeprazole 20 mg PO BID 09/26/17 10/04/18 ondansetron 1 tab TRANSLINGUAL Q6H PRN 09/26/17 10/04/18 potassium chloride 20 meq PO QNOON 09/26/17 10/04/18 rivaroxaban [Xarelto] 20 mg PO DAILY 09/26/17 09/26/17 vitamin E 1 cap PO DAILY 09/26/17 09/26/17 lorazepam 0.5 mg PO BID PRN 05/30/18 10/04/18 aspirin 81 mg PO DAILY 06/13/18 10/04/18 hydrocodone-acetaminophen [Luray] 1 - 2 tab PO Q6H PRN 10/04/18 10/04/18 Previous Rx's Medication Instructions Recorded doxycycline hyclate 100 mg PO BID #20 tab 10/04/18 Allergies Allergy/AdvReac Type Severity Reaction Status Date / Time mupirocin Allergy Unknown Verified 08/30/18 04:06 naproxen Allergy Unknown Verified 08/30/18 04:06 Penicillins Allergy Unknown SINCE Verified 08/30/18 04:06 CHILDHOOD droperidol AdvReac Unknown Verified 08/30/18 04:06 fenofibrate [FENOFIBRATE] AdvReac Unknown Verified 08/30/18 04:06 ibuprofen AdvReac Unknown NAUSEA Verified 08/30/18 04:06 metformin [METFORMIN] AdvReac Unknown Verified 08/30/18 04:06 metoclopramide AdvReac Unknown BECAME Verified 08/30/18 04:06 JITTERY AND ANXIOUS nitrofurantoin AdvReac Unknown NAUSEA Verified 08/30/18 04:06 Review of Systems <WM Moss-BC - Last Filed: 10/04/18 18:41> Review of Systems GENERAL: Denies chills, fatigue, malaise, fever, sweats. HEENT: Denies sinus pain, ear pain, sore throat, difficulty swallowing, dizziness. RESPIRATORY: Denies dyspnea, cough, wheezing, hemoptysis, sputum. CARDIOVASCULAR: Denies chest pain, palpitations, orthopnea, edema, GASTROINTESTINAL: Denies nausea, vomiting, abdominal pain, diarrhea, constipation, melena. : Denies dysuria, frequency, incontinence, hematuria, urinary retention. MUSCULOSKELETAL: See HPI SKIN: Denies rash, skin lesions, or other NEUROLOGIC: Denies weakness, headache, numbness, change in speech, confusion, seizures, incoordination. PSYCHIATRIC: No concerning psychosocial issues. 12 point review of systems is negative except for those stated above Exam <ALBERTO MossP-BC - Last Filed: 10/04/18 18:41> Narrative Exam Narrative: GENERAL: Thin chronically ill-appearing female lying on stretcher appears anxious HEAD: Atraumatic. Normocephalic. No temporal or scalp tenderness. EYES: Pupils equal round and reactive. Extraocular motions intact. No scleral icterus. No injection or drainage. ENT: Nose without bleeding, purulent drainage or septal hematoma. Throat without erythema, tonsillar hypertrophy or exudate. Uvula midline. Airway patent. NECK: Trachea midline. No JVD or lymphadenopathy. Supple, nontender, no meningeal signs. CARDIOVASCULAR: Regular rate and rhythm without murmurs, gallops, or rubs. RESPIRATORY: Clear to auscultation. Breath sounds equal bilaterally. No wheezes, rales, or rhonchi. Pain to right posterior rib palpation. Pain to lateral chest wall compression as well as anterior posterior chest wall compression. GASTROINTESTINAL: Abdomen soft, non-tender, nondistended. No hepato-splenomegaly, or palpable masses. No guarding. EXTREMITIES: No clubbing, cyanosis, or edema. No joint tenderness, effusion, or edema noted. Pain to palpation of left hand at the base of 4th and 5th digits. No instability palpated. BACK: Nontender without deformity or crepitance. No flank tenderness. No pain to C-spine palpation. NEURO: AOx3. Interactive. Pacing around her emergency department room. Very tangential. Pressured speech noted. SKIN: Ecchymosis noted at the base of the 4th and 5th digits of left hand. 1 cm ecchymosis noted right posterior ribs. Initial Vital Signs Initial Vital Signs: Vital Signs Temperature 98.6 F 10/04/18 13:33 Pulse Rate 121 H 10/04/18 13:33 Respiratory Rate 25 H 10/04/18 13:33 Blood Pressure 143/103 H 10/04/18 13:33 Pulse Oximetry 93 10/04/18 13:33 <Xuan Garcia DO - Last Filed: 10/04/18 19:54> Initial Vital Signs Initial Vital Signs: Vital Signs Temperature 98.6 F 10/04/18 13:33 Pulse Rate 121 H 10/04/18 13:33 Respiratory Rate 25 H 10/04/18 13:33 Blood Pressure 143/103 H 10/04/18 13:33 Pulse Oximetry 93 10/04/18 13:33 PFSH <CAMILO Moss - Last Filed: 10/04/18 18:41> Medical History Anxiety (Chronic) Endometriosis (Chronic) Fibromyalgia (Chronic) Heart palpitations (Chronic) History of COPD (Chronic) History of asthma (Chronic) History of chronic hypertension (Chronic) History of depression (Chronic) History of gastrointestinal ulcer (Chronic) History of kidney stones (Chronic) History of migraine (Chronic) History of panic attacks (Chronic) History of type 2 diabetes mellitus (Chronic) Interstitial cystitis (Chronic) Port-a-cath in place (Chronic) UTI (urinary tract infection) (Chronic) Surgical History S/P appendectomy (Resolved) Status post hysterectomy (Resolved) Family History Other Family history non-contributory Social History Smoking Status: Current every day smoker Family History Other Family history non-contributory Social History Smoking Status: Current every day smoker Scores <CAMILO Moss - Last Filed: 10/04/18 18:41> GCS [place] coma scale eye opening: Spontaneous Eva coma scale verbal response: Orientated [place] coma scale motor response: Obey commands [place] coma scale total score: 15 Course <CAMILO Moss - Last Filed: 10/04/18 18:41> Orders Ordered: ED Orders 10/04/18 13:39 XR ribs RT min 3V w CXR1V Stat 10/04/18 15:16 CT head/brain wo con Stat XR hand LT min 3V Stat 10/04/18 17:14 Complete Blood Count AUTO DIFF Stat Comprehensive Metabolic Panel Stat Prothrombin Time INR Stat 10/04/18 17:55 Lactate (Lactic Acid) Stat Procalcitonin Stat Discontinued Medications Acetaminophen (Tylenol) 975 mg PO NOW ONE Stop: 10/04/18 15:36 Last Admin: 10/04/18 16:16 Dose: Not Given Lidocaine (Lidoderm) 1 each TOP DAILY [facility] Last Admin: 10/04/18 16:14 Dose: 1 each Vital Signs - 8 hr 10/04/18 13:33 10/04/18 16:53 Temperature 98.6 F Pulse Rate 121 H 111 H Respiratory Rate 25 H 18 Blood Pressure 143/103 H Blood Pressure [Left Arm] 140/86 Pulse Oximetry 93 97 <Xuan Garcia DO - Last Filed: 10/04/18 19:54> Orders Ordered: ED Orders 10/04/18 13:39 XR ribs RT min 3V w CXR1V Stat 10/04/18 15:16 CT head/brain wo con Stat XR hand LT min 3V Stat 10/04/18 17:14 Complete Blood Count AUTO DIFF Stat Comprehensive Metabolic Panel Stat Prothrombin Time INR Stat 10/04/18 17:55 Lactate (Lactic Acid) Stat Procalcitonin Stat Discontinued Medications Acetaminophen (Tylenol) 975 mg PO NOW ONE Stop: 10/04/18 15:36 Last Admin: 10/04/18 16:16 Dose: Not Given Lidocaine (Lidoderm) 1 each TOP DAILY [facility] Last Admin: 10/04/18 16:14 Dose: 1 each Vital Signs - 8 hr 10/04/18 13:33 10/04/18 16:53 Temperature 98.6 F Pulse Rate 121 H 111 H Respiratory Rate 25 H 18 Blood Pressure 143/103 H Blood Pressure [Left Arm] 140/86 Pulse Oximetry 93 97 MDM - Fall <CAMILO Moss - Last Filed: 10/04/18 18:41> Lab Data Result diagrams: 10/04/18 17:14 10/04/18 17:14 Lab Results 10/04/18 10/04/18 10/04/18 Range/Units 17:14 17:14 17:14 WBC 24.1 H (4.5-11.0) X10^3/uL RBC 4.04 (4.0-5.2) X10^6/uL Hgb 12.7 (12.0-16.0) g/dL Hct 37.2 (36-46) % MCV 92.1 (80-100) fL MCH 31.4 (26-34) PG MCHC 34.1 (30-36) % RDW 13.0 (11.6-14.8) % Plt Count 329 (150-400) X10^3/uL Neut % (Auto) 83.9 H (50-75) % Lymph % (Auto) 12.3 L (25-40) % [place] % (Auto) 2.8 L (3-14) % Eos % (Auto) 0.3 L (2-4) % Baso % (Auto) 0.7 (0-2) % Neut # (Auto) 94591 H (0288-3221) /uL Lymph # (Auto) 3000 (9404-3543) /uL [place] # (Auto) 700 (0-900) /uL Eos # (Auto) 100 (0-450) /uL Baso # (Auto) 200 H (0-100) /uL PT 11.0 (10.1-12.7) SECONDS INR 1.0 (0.9-1.3) Sodium 138 (137-145) mmol/L Potassium 3.9 (3.4-5.1) mmol/L Chloride 109 H (98-107) mmol/L Carbon Dioxide 20 L (22-32) mmol/L BUN 17 (7-17) mg/dL Creatinine 0.90 (0.52-1.04) mg/dL Estimated GFR > 60.0 (>60) mL/min BUN/Creatinine Ratio 18.9 (6-22) Glucose 149 H (70-100) mg/dL Lactate (0.7-2.1) mmol/L Calcium 10.0 (8.4-10.2) mg/dL Total Bilirubin 0.4 (0.2-1.3) mg/dL AST 45 H (14-36) IU/L ALT 14 (9-52) IU/L Alkaline Phosphatase 122 (38-126) U/L Total Protein 7.9 (6.3-8.2) g/dL Albumin 4.3 (3.5-5.0) g/dL Globulin 3.6 (1.7-4.1) g/dL Albumin/Globulin Ratio 1.2 (1.0-2.8) Procalcitonin (<0.5) ng/mL 10/04/18 10/04/18 Range/Units 17:55 17:55 WBC (4.5-11.0) X10^3/uL RBC (4.0-5.2) X10^6/uL Hgb (12.0-16.0) g/dL Hct (36-46) % MCV (80-100) fL MCH (26-34) PG MCHC (30-36) % RDW (11.6-14.8) % Plt Count (150-400) X10^3/uL Neut % (Auto) (50-75) % Lymph % (Auto) (25-40) % [place] % (Auto) (3-14) % Eos % (Auto) (2-4) % Baso % (Auto) (0-2) % Neut # (Auto) (7302-9882) /uL Lymph # (Auto) (5694-3260) /uL [place] # (Auto) (0-900) /uL Eos # (Auto) (0-450) /uL Baso # (Auto) (0-100) /uL PT (10.1-12.7) SECONDS INR (0.9-1.3) Sodium (137-145) mmol/L Potassium (3.4-5.1) mmol/L Chloride (98-107) mmol/L Carbon Dioxide (22-32) mmol/L BUN (7-17) mg/dL Creatinine (0.52-1.04) mg/dL Estimated GFR (>60) mL/min BUN/Creatinine Ratio (6-22) Glucose (70-100) mg/dL Lactate 1.4 (0.7-2.1) mmol/L Calcium (8.4-10.2) mg/dL Total Bilirubin (0.2-1.3) mg/dL AST (14-36) IU/L ALT (9-52) IU/L Alkaline Phosphatase (38-126) U/L Total Protein (6.3-8.2) g/dL Albumin (3.5-5.0) g/dL Globulin (1.7-4.1) g/dL Albumin/Globulin Ratio (1.0-2.8) Procalcitonin 0.38 (<0.5) ng/mL Imaging Data Hand x-ray: Radiologist's impression: [address] [address] XRay Report Signed Patient: Melvi Gibbs [facility]#: [id number] : 1965Acct:[id number] Age/Sex: 53 / FDate of Service: 10/04/18 Loc: ED Accession Number: [id number] Procedure: XR hand LT min 3V Ordering Provider: Xuan Herrera-ABHINAV PROCEDURE: XR HAND LT MIN 3V INDICATIONS: hand pain sp fall TECHNIQUE: 3 views of the hand(s) acquired. COMPARISON: None FINDINGS: Bones: No fractures or dislocations. Carpal bones are normally aligned. No suspicious bony lesions. Soft tissues: No suspicious soft tissue calcifications. IMPRESSION: No acute fracture. No osseous lesion. If symptoms and/or clinical suspicion for pathology persist, further assessment with repeat, or advanced imaging (e.g., CT, MRI, or bone scan) may be helpful for further assessment. Dictated by: Kristian Bolton M.D. on 10/04/2018 at 15:51 Approved by: Kristian Bolton M.D. on 10/04/2018 at 15:52 CT scan - head: Radiologist's impression: [address] [address] [address] Scan Report Signed Patient: Melvi Gibbs [facility]#: [id number] : 1965Acct:[id number] Age/Sex: 53 / FDate of Service: 10/04/18 Loc: ED Accession Number: [id number] Procedure: CT head/brain wo con Ordering Provider: Xuan Herrera-ABHINAV PROCEDURE: CT HEAD/BRAIN WO CON INDICATIONS: glf, ? xarelto, unreliable historian TECHNIQUE: Noncontrast 4.5 mm thick angled axial sections acquired from the foramen magnum to the vertex, with coronal and sagittal reformats. For radiation dose reduction, the following was used: automated exposure control, adjustment of mA and/or kV according to patient size. COMPARISON: [facility], CT, HEAD WITHOUT CONTRAST, 11/06/2012, 11:29. FINDINGS: Image quality: Partially degraded by motion artifact. CSF spaces: Basal cisterns are patent. No extra-axial fluid collections. Ventricles are normal in size and shape. Brain: No midline shift. No intracranial masses or hemorrhage. Abel-white matter interface is normal. Skull and face: Calvarium and visualized facial bones are intact, without suspicious lesions. Sinuses: Visualized sinuses and mastoids are clear. IMPRESSION: No acute intracranial abnormality. Dictated by: Kristian Bolton M.D. on 10/04/2018 at 15:52 Approved by: Kristian Bolton M.D. on 10/04/2018 at 15:53 Right ribs: Radiologist's impression: [address] [address] XRay Report Signed Patient: Melvi Gibbs [facility]#: [id number] : 1965Acct:[id number] Age/Sex: 53 / FDate of Service: 10/04/18 Loc: ED Accession Number: [id number] Procedure: XR ribs RT min 3V w CXR1V Ordering Provider: Xuan Garcia D.O. PROCEDURE: XR RIBS RT MIN 3V W CXR 1V INDICATIONS: fall w/ right rib pain TECHNIQUE: 2 views of the right ribs were acquired, along with a single view chest. COMPARISON: [facility], , XR CHEST 2V, 08/30/2018, 3:59. MEDIASTINUM: Mediastinal contours appear normal. Heart size is normal. IMPRESSION: Mild bibasilar alveolar infiltration, suspicious for pneumonia but in the setting of trauma mild pulmonary contusion or posttraumatic atelectasis also could has this appearance. A Dictated by: Akbar Ortiz M.D. on 10/04/2018 at 15:06 Approved by: Akbar Ortiz M.D. on 10/04/2018 at 15:07 [facility] Narrative Medical decision making narrative: The patient is a 53-year-old female with a complicated medical history presents after a fall last night. I initially obtained is chest x-ray, which showed infiltration suspicious for pneumonia but could be a pulmonary contusion or posttraumatic atelectasis. Thus I also ordered a CT. At this point the patient initially refused lab work, but later relinquished to lab work. Showed a white blood cell count elevation, increasing suspicion of pneumonia. However the patient adamantly refused a CT several times. She later decided that she wanted to leave against medical advice. I discussed at length with her that she was risking by doing this, I offered to treat her for pneumonia, gave her a prescription for doxycycline. I discussed at length that I thought she should stay for further evaluation. However the patient discussed the fact that she did not know me, that the floors made her socks black and that we did not bring her water often enough. She stated she did not want further workup. She stated understanding of risk of . She left against medical advice. I encouraged her to follow up with her PCP or come back to the ER for any acute concerns. Ramon GRUBER was witness to conversations. <Xuan Garcia, DO - Last Filed: 10/04/18 19:54> Lab Data Lab Results 10/04/18 10/04/18 10/04/18 Range/Units 17:14 17:14 17:14 WBC 24.1 H (4.5-11.0) X10^3/uL RBC 4.04 (4.0-5.2) X10^6/uL Hgb 12.7 (12.0-16.0) g/dL Hct 37.2 (36-46) % MCV 92.1 (80-100) fL MCH 31.4 (26-34) PG MCHC 34.1 (30-36) % RDW 13.0 (11.6-14.8) % Plt Count 329 (150-400) X10^3/uL Neut % (Auto) 83.9 H (50-75) % Lymph % (Auto) 12.3 L (25-40) % [place] % (Auto) 2.8 L (3-14) % Eos % (Auto) 0.3 L (2-4) % Baso % (Auto) 0.7 (0-2) % Neut # (Auto) 80727 H (0379-1343) /uL Lymph # (Auto) 3000 (4760-9817) /uL [place] # (Auto) 700 (0-900) /uL Eos # (Auto) 100 (0-450) /uL Baso # (Auto) 200 H (0-100) /uL PT 11.0 (10.1-12.7) SECONDS INR 1.0 (0.9-1.3) Sodium 138 (137-145) mmol/L Potassium 3.9 (3.4-5.1) mmol/L Chloride 109 H (98-107) mmol/L Carbon Dioxide 20 L (22-32) mmol/L BUN 17 (7-17) mg/dL Creatinine 0.90 (0.52-1.04) mg/dL Estimated GFR > 60.0 (>60) mL/min BUN/Creatinine Ratio 18.9 (6-22) Glucose 149 H (70-100) mg/dL Lactate (0.7-2.1) mmol/L Calcium 10.0 (8.4-10.2) mg/dL Total Bilirubin 0.4 (0.2-1.3) mg/dL AST 45 H (14-36) IU/L ALT 14 (9-52) IU/L Alkaline Phosphatase 122 (38-126) U/L Total Protein 7.9 (6.3-8.2) g/dL Albumin 4.3 (3.5-5.0) g/dL Globulin 3.6 (1.7-4.1) g/dL Albumin/Globulin Ratio 1.2 (1.0-2.8) Procalcitonin (<0.5) ng/mL 10/04/18 10/04/18 Range/Units 17:55 17:55 WBC (4.5-11.0) X10^3/uL RBC (4.0-5.2) X10^6/uL Hgb (12.0-16.0) g/dL Hct (36-46) % MCV (80-100) fL MCH (26-34) PG MCHC (30-36) % RDW (11.6-14.8) % Plt Count (150-400) X10^3/uL Neut % (Auto) (50-75) % Lymph % (Auto) (25-40) % [place] % (Auto) (3-14) % Eos % (Auto) (2-4) % Baso % (Auto) (0-2) % Neut # (Auto) (1688-0393) /uL Lymph # (Auto) (3252-7919) /uL [place] # (Auto) (0-900) /uL Eos # (Auto) (0-450) /uL Baso # (Auto) (0-100) /uL PT (10.1-12.7) SECONDS INR (0.9-1.3) Sodium (137-145) mmol/L Potassium (3.4-5.1) mmol/L Chloride (98-107) mmol/L Carbon Dioxide (22-32) mmol/L BUN (7-17) mg/dL Creatinine (0.52-1.04) mg/dL Estimated GFR (>60) mL/min BUN/Creatinine Ratio (6-22) Glucose (70-100) mg/dL Lactate 1.4 (0.7-2.1) mmol/L Calcium (8.4-10.2) mg/dL Total Bilirubin (0.2-1.3) mg/dL AST (14-36) IU/L ALT (9-52) IU/L Alkaline Phosphatase (38-126) U/L Total Protein (6.3-8.2) g/dL Albumin (3.5-5.0) g/dL Globulin (1.7-4.1) g/dL Albumin/Globulin Ratio (1.0-2.8) Procalcitonin 0.38 (<0.5) ng/mL Discharge Plan Departure Patient Disposition: Left Against Medical Advice Clinical Impression: Left against medical advice Discharge Date/Time: 10/04/18 18:31 Interventions: ED Discharge Assessment Last Done: 10/04/18 18:31 Prescriptions: New doxycycline hyclate 100 mg tablet 100 mg PO BID Qty: 20 RF: 0 No Action hydroxyzine HCl 25 MG tablet 25 mg PO TID PRN (Reason: Anxiety) Qty: 0 RF: 0 magnesium oxide 400 MG tablet 400 mg PO BEDTIME Qty: 0 RF: 0 albuterol sulfate [Proventil HFA] 90 MCG/PUFF HFA aerosol inhaler 2 puff INH Q4HP PRN (Reason: Shortness Of Breath) Qty: 0 RF: 0 duloxetine 60 MG capsule,delayed release(DR/EC) 60 mg PO DAILY Qty: 0 RF: 0 gabapentin [Neurontin] 300 MG capsule 600 mg PO TID Qty: 0 RF: 0 multivitamin [Multiple Vitamins] 1 EACH tablet 1 tab PO DAILY Qty: 0 RF: 0 zolpidem [Ambien] 10 MG tablet 10 mg PO HS PRN (Reason: Insomnia) Qty: 0 RF: 0 lorazepam 0.5 mg tablet 0.5 mg PO BID PRN (Reason: Anxiety) RF: 0 aspirin 81 mg tablet,chewable 81 mg PO DAILY RF: 0 hydrocodone-acetaminophen [Lur[place]] 5-325 mg tablet 1 - 2 tab PO Q6H PRN (Reason: pain) RF: 0 amitriptyline 50 mg tablet 150 mg PO BEDTIME RF: 0 potassium chloride 20 mEq tablet,ER particles/crystals 20 meq PO QNOON RF: 0 lisinopril 10 mg tablet 10 mg PO DAILY RF: 0 omeprazole 20 mg capsule,delayed release(DR/EC) 20 mg PO BID RF: 0 ondansetron 4 mg tablet,disintegrating 1 tab Translingual Q6H PRN (Reason: Nausea) RF: 0 Humulin N NPH Insulin KwikPen 100 unit/mL (3 mL) insulin pen 15 units Sub-Q BEDTIME RF: 0 Xarelto 20 mg tablet 20 mg PO DAILY RF: 0 Probiotic 1 tab PO BID RF: 0 vitamin E 1 cap PO DAILY RF: 0 Referrals: Fadi Ko DO [Primary Care Provider] - Stand Alone Forms: Against Medical Advice <Xuan Garcia DO - Last Filed: 10/04/18 19:54> Cosign ED Attending Cosignature Attestation: I was immediately available in the department for consultation, case discussed and CXR findings discussed. With recent trauma CT ordered but patient refusing after multiple conversations, labs show elevated WBC, tachycardia, and tachypnea initially but improving. Procalcitonin is positive for LRT range of infection. Lactate normal. Patient given rx for potential pneumonia although traumatic cause not ruled out. This documentation has been reviewed and I agree with assessment and plan at this point. Supervised by Xuan Garcia DO
--- NOTE | 2018-10-04 18:41 | ED_ITS ---
HPI - Fall <Xuan Herrera MACHINE CRATER-BC - Last Filed: 10/04/18 18:41> General Chief Complaint: Trauma Stated Complaint: slipped on kitchen floor, right side pain Time Seen by Provider: 10/04/18 15:05 Source: patient Mode of arrival: ambulatory Limitations: no limitations History of Present Illness HPI Narrative: The patient is a 53-year-old current smoker with history of costochondritis and hyperglycemia who presents with a chief complaint of injuries after a fall. She states she slipped and landed with her right ribs on the floor at 8:00 p.m. last night. She denies any loss of consciousness. She denies any neck or back pain. She denies any abdominal pain. She complains of pain above her eye on her right side as well as left hand pain and right rib pain. She states it hurts to take a deep breath. She denies any fevers nausea vomiting or diarrhea. Related Data Home Medications Medication Instructions Recorded Confirmed albuterol sulfate [Proventil HFA] 2 puff INH Q4HP PRN #0 01/08/13 10/04/18 hydroxyzine HCl 25 mg PO TID PRN #0 01/08/13 10/04/18 magnesium oxide 400 mg PO BEDTIME #0 tab 01/08/13 10/04/18 duloxetine 60 mg PO DAILY #0 07/04/17 10/04/18 gabapentin [Neurontin] 600 mg PO TID #0 07/04/17 10/04/18 multivitamin [Multiple Vitamins] 1 tab PO DAILY #0 07/04/17 10/04/18 zolpidem [Ambien] 10 mg PO HS PRN #0 07/04/17 10/04/18 Probiotic 1 tab PO BID 09/26/17 10/04/18 amitriptyline 150 mg PO BEDTIME 09/26/17 10/04/18 insulin NPH isoph U-100 human 15 units SUB-Q BEDTIME 09/26/17 10/04/18 [Humulin N NPH Insulin KwikPen] lisinopril 10 mg PO DAILY 09/26/17 10/04/18 omeprazole 20 mg PO BID 09/26/17 10/04/18 ondansetron 1 tab TRANSLINGUAL Q6H PRN 09/26/17 10/04/18 potassium chloride 20 meq PO QNOON 09/26/17 10/04/18 rivaroxaban [Xarelto] 20 mg PO DAILY 09/26/17 09/26/17 vitamin E 1 cap PO DAILY 09/26/17 09/26/17 lorazepam 0.5 mg PO BID PRN 05/30/18 10/04/18 aspirin 81 mg PO DAILY 06/13/18 10/04/18 hydrocodone-acetaminophen [[place]] 1 - 2 tab PO Q6H PRN 10/04/18 10/04/18 Previous Rx's Medication Instructions Recorded doxycycline hyclate 100 mg PO BID #20 tab 10/04/18 Allergies Allergy/AdvReac Type Severity Reaction Status Date / Time mupirocin Allergy Unknown Verified 08/30/18 04:06 naproxen Allergy Unknown Verified 08/30/18 04:06 Penicillins Allergy Unknown SINCE Verified 08/30/18 04:06 CHILDHOOD droperidol AdvReac Unknown Verified 08/30/18 04:06 fenofibrate [FENOFIBRATE] AdvReac Unknown Verified 08/30/18 04:06 ibuprofen AdvReac Unknown NAUSEA Verified 08/30/18 04:06 metformin [METFORMIN] AdvReac Unknown Verified 08/30/18 04:06 metoclopramide AdvReac Unknown BECAME Verified 08/30/18 04:06 JITTERY AND ANXIOUS nitrofurantoin AdvReac Unknown NAUSEA Verified 08/30/18 04:06 Review of Systems <WM Moss-BC - Last Filed: 10/04/18 18:41> Review of Systems GENERAL: Denies chills, fatigue, malaise, fever, sweats. HEENT: Denies sinus pain, ear pain, sore throat, difficulty swallowing, dizziness. RESPIRATORY: Denies dyspnea, cough, wheezing, hemoptysis, sputum. CARDIOVASCULAR: Denies chest pain, palpitations, orthopnea, edema, GASTROINTESTINAL: Denies nausea, vomiting, abdominal pain, diarrhea, constipation, melena. : Denies dysuria, frequency, incontinence, hematuria, urinary retention. MUSCULOSKELETAL: See HPI SKIN: Denies rash, skin lesions, or other NEUROLOGIC: Denies weakness, headache, numbness, change in speech, confusion, seizures, incoordination. PSYCHIATRIC: No concerning psychosocial issues. 12 point review of systems is negative except for those stated above Exam <ALBERTO MossP-BC - Last Filed: 10/04/18 18:41> Narrative Exam Narrative: GENERAL: Thin chronically ill-appearing female lying on stretcher appears anxious HEAD: Atraumatic. Normocephalic. No temporal or scalp tenderness. EYES: Pupils equal round and reactive. Extraocular motions intact. No scleral icterus. No injection or drainage. ENT: Nose without bleeding, purulent drainage or septal hematoma. Throat without erythema, tonsillar hypertrophy or exudate. Uvula midline. Airway patent. NECK: Trachea midline. No JVD or lymphadenopathy. Supple, nontender, no meningeal signs. CARDIOVASCULAR: Regular rate and rhythm without murmurs, gallops, or rubs. RESPIRATORY: Clear to auscultation. Breath sounds equal bilaterally. No wheezes, rales, or rhonchi. Pain to right posterior rib palpation. Pain to lateral chest wall compression as well as anterior posterior chest wall compression. GASTROINTESTINAL: Abdomen soft, non-tender, nondistended. No hepato- splenomegaly, or palpable masses. No guarding. EXTREMITIES: No clubbing, cyanosis, or edema. No joint tenderness, effusion, or edema noted. Pain to palpation of left hand at the base of 4th and 5th digits. No instability palpated. BACK: Nontender without deformity or crepitance. No flank tenderness. No pain to C-spine palpation. NEURO: AOx3. Interactive. Pacing around her emergency department room. Very tangential. Pressured speech noted. SKIN: Ecchymosis noted at the base of the 4th and 5th digits of left hand. 1 cm ecchymosis noted right posterior ribs. Initial Vital Signs Initial Vital Signs: Vital Signs Temperature 98.6 F 10/04/18 13:33 Pulse Rate 121 H 10/04/18 13:33 Respiratory Rate 25 H 10/04/18 13:33 Blood Pressure 143/103 H 10/04/18 13:33 Pulse Oximetry 93 10/04/18 13:33 <Xuan Garcia DO - Last Filed: 10/04/18 19:54> Initial Vital Signs Initial Vital Signs: Vital Signs Temperature 98.6 F 10/04/18 13:33 Pulse Rate 121 H 10/04/18 13:33 Respiratory Rate 25 H 10/04/18 13:33 Blood Pressure 143/103 H 10/04/18 13:33 Pulse Oximetry 93 10/04/18 13:33 PFSH <CAMILO Moss - Last Filed: 10/04/18 18:41> Medical History Anxiety (Chronic) Endometriosis (Chronic) Fibromyalgia (Chronic) Heart palpitations (Chronic) History of COPD (Chronic) History of asthma (Chronic) History of chronic hypertension (Chronic) History of depression (Chronic) History of gastrointestinal ulcer (Chronic) History of kidney stones (Chronic) History of migraine (Chronic) History of panic attacks (Chronic) History of type 2 diabetes mellitus (Chronic) Interstitial cystitis (Chronic) Port-a-cath in place (Chronic) UTI (urinary tract infection) (Chronic) Surgical History S/P appendectomy (Resolved) Status post hysterectomy (Resolved) Family History Other Family history non-contributory Social History Smoking Status: Current every day smoker Family History Other Family history non-contributory Social History Smoking Status: Current every day smoker Scores <CAMILO Moss - Last Filed: 10/04/18 18:41> GCS Mandan coma scale eye opening: Spontaneous Mandan coma scale verbal response: Orientated Eva coma scale motor response: Obey commands Mandan coma scale total score: 15 Course <CAMILO Moss - Last Filed: 10/04/18 18:41> Orders Ordered: ED Orders 10/04/18 13:39 XR ribs RT min 3V w CXR1V Stat 10/04/18 15:16 CT head/brain wo con Stat XR hand LT min 3V Stat 10/04/18 17:14 Complete Blood Count AUTO DIFF Stat Comprehensive Metabolic Panel Stat Prothrombin Time INR Stat 10/04/18 17:55 Lactate (Lactic Acid) Stat Procalcitonin Stat Discontinued Medications Acetaminophen (Tylenol) 975 mg PO NOW ONE Stop: 10/04/18 15:36 Last Admin: 10/04/18 16:16 Dose: Not Given Lidocaine (Lidoderm) 1 each TOP DAILY [facility] Last Admin: 10/04/18 16:14 Dose: 1 each Vital Signs - 8 hr 10/04/18 13:33 10/04/18 16:53 Temperature 98.6 F Pulse Rate 121 H 111 H Respiratory Rate 25 H 18 Blood Pressure 143/103 H Blood Pressure [Left Arm] 140/86 Pulse Oximetry 93 97 <Xuan Garcia DO - Last Filed: 10/04/18 19:54> Orders Ordered: ED Orders 10/04/18 13:39 XR ribs RT min 3V w CXR1V Stat 10/04/18 15:16 CT head/brain wo con Stat XR hand LT min 3V Stat 10/04/18 17:14 Complete Blood Count AUTO DIFF Stat Comprehensive Metabolic Panel Stat Prothrombin Time INR Stat 10/04/18 17:55 Lactate (Lactic Acid) Stat Procalcitonin Stat Discontinued Medications Acetaminophen (Tylenol) 975 mg PO NOW ONE Stop: 10/04/18 15:36 Last Admin: 10/04/18 16:16 Dose: Not Given Lidocaine (Lidoderm) 1 each TOP DAILY [facility] Last Admin: 10/04/18 16:14 Dose: 1 each Vital Signs - 8 hr 10/04/18 13:33 10/04/18 16:53 Temperature 98.6 F Pulse Rate 121 H 111 H Respiratory Rate 25 H 18 Blood Pressure 143/103 H Blood Pressure [Left Arm] 140/86 Pulse Oximetry 93 97 MDM - Fall <CAMILO Moss - Last Filed: 10/04/18 18:41> Lab Data Result diagrams: 10/04/18 17:14 10/04/18 17:14 Lab Results 10/04/18 10/04/18 10/04/18 Range/Units 17:14 17:14 17:14 WBC 24.1 H (4.5-11.0) X10^3/uL RBC 4.04 (4.0-5.2) X10^6/uL Hgb 12.7 (12.0-16.0) g/dL Hct 37.2 (36-46) % MCV 92.1 (80-100) fL MCH 31.4 (26-34) PG MCHC 34.1 (30-36) % RDW 13.0 (11.6-14.8) % Plt Count 329 (150-400) X10^3/uL Neut % (Auto) 83.9 H (50-75) % Lymph % (Auto) 12.3 L (25-40) % [place] % (Auto) 2.8 L (3-14) % Eos % (Auto) 0.3 L (2-4) % Baso % (Auto) 0.7 (0-2) % Neut # (Auto) 83540 H (3972-0400) /uL Lymph # (Auto) 3000 (4356-2508) /uL [place] # (Auto) 700 (0-900) /uL Eos # (Auto) 100 (0-450) /uL Baso # (Auto) 200 H (0-100) /uL PT 11.0 (10.1-12.7) SECONDS INR 1.0 (0.9-1.3) Sodium 138 (137-145) mmol/L Potassium 3.9 (3.4-5.1) mmol/L Chloride 109 H (98-107) mmol/L Carbon Dioxide 20 L (22-32) mmol/L BUN 17 (7-17) mg/dL Creatinine 0.90 (0.52-1.04) mg/dL Estimated GFR > 60.0 (>60) mL/min BUN/Creatinine Ratio 18.9 (6-22) Glucose 149 H (70-100) mg/dL Lactate (0.7-2.1) mmol/L Calcium 10.0 (8.4-10.2) mg/dL Total Bilirubin 0.4 (0.2-1.3) mg/dL AST 45 H (14-36) IU/L ALT 14 (9-52) IU/L Alkaline Phosphatase 122 (38-126) U/L Total Protein 7.9 (6.3-8.2) g/dL Albumin 4.3 (3.5-5.0) g/dL Globulin 3.6 (1.7-4.1) g/dL Albumin/Globulin Ratio 1.2 (1.0-2.8) Procalcitonin (<0.5) ng/mL 10/04/18 10/04/18 Range/Units 17:55 17:55 WBC (4.5-11.0) X10^3/uL RBC (4.0-5.2) X10^6/uL Hgb (12.0-16.0) g/dL Hct (36-46) % MCV (80-100) fL MCH (26-34) PG MCHC (30-36) % RDW (11.6-14.8) % Plt Count (150-400) X10^3/uL Neut % (Auto) (50-75) % Lymph % (Auto) (25-40) % [place] % (Auto) (3-14) % Eos % (Auto) (2-4) % Baso % (Auto) (0-2) % Neut # (Auto) (4771-9546) /uL Lymph # (Auto) (5011-9429) /uL [place] # (Auto) (0-900) /uL Eos # (Auto) (0-450) /uL Baso # (Auto) (0-100) /uL PT (10.1-12.7) SECONDS INR (0.9-1.3) Sodium (137-145) mmol/L Potassium (3.4-5.1) mmol/L Chloride (98-107) mmol/L Carbon Dioxide (22-32) mmol/L BUN (7-17) mg/dL Creatinine (0.52-1.04) mg/dL Estimated GFR (>60) mL/min BUN/Creatinine Ratio (6-22) Glucose (70-100) mg/dL Lactate 1.4 (0.7-2.1) mmol/L Calcium (8.4-10.2) mg/dL Total Bilirubin (0.2-1.3) mg/dL AST (14-36) IU/L ALT (9-52) IU/L Alkaline Phosphatase (38-126) U/L Total Protein (6.3-8.2) g/dL Albumin (3.5-5.0) g/dL Globulin (1.7-4.1) g/dL Albumin/Globulin Ratio (1.0-2.8) Procalcitonin 0.38 (<0.5) ng/mL Imaging Data Hand x-ray: Radiologist's impression: [address] [address] XRay Report Signed Patient: Melvi Gibbs [facility]#: [id number] : 1965Acct:[id number] Age/Sex: 53 / FDate of Service: 10/04/18 Loc: ED Accession Number: [id number] Procedure: XR hand LT min 3V Ordering Provider: Xuan Herrera-ABHINAV PROCEDURE: XR HAND LT MIN 3V INDICATIONS: hand pain sp fall TECHNIQUE: 3 views of the hand(s) acquired. COMPARISON: None FINDINGS: Bones: No fractures or dislocations. Carpal bones are normally aligned. No suspicious bony lesions. Soft tissues: No suspicious soft tissue calcifications. IMPRESSION: No acute fracture. No osseous lesion. If symptoms and/or clinical suspicion for pathology persist, further assessment with repeat, or advanced imaging (e.g., CT, MRI, or bone scan) may be helpful for further assessment. Dictated by: Kristian Bolton M.D. on 10/04/2018 at 15:51 Approved by: Kristian Bolton M.D. on 10/04/2018 at 15:52 CT scan - head: Radiologist's impression: [address] [address] [address] Scan Report Signed Patient: Melvi Gibbs [facility]#: [id number] : 1965Acct:[id number] Age/Sex: 53 / FDate of Service: 10/04/18 Loc: ED Accession Number: [id number] Procedure: CT head/brain wo con Ordering Provider: Xuan Herrera-ABHINAV PROCEDURE: CT HEAD/BRAIN WO CON INDICATIONS: glf, ? xarelto, unreliable historian TECHNIQUE: Noncontrast 4.5 mm thick angled axial sections acquired from the foramen magnum to the vertex, with coronal and sagittal reformats. For radiation dose reduction, the following was used: automated exposure control, adjustment of mA and/or kV according to patient size. COMPARISON: [facility], CT, HEAD WITHOUT CONTRAST, 11/06/2012, 11:29. FINDINGS: Image quality: Partially degraded by motion artifact. CSF spaces: Basal cisterns are patent. No extra-axial fluid collections. Ventricles are normal in size and shape. Brain: No midline shift. No intracranial masses or hemorrhage. Abel-white matter interface is normal. Skull and face: Calvarium and visualized facial bones are intact, without suspicious lesions. Sinuses: Visualized sinuses and mastoids are clear. IMPRESSION: No acute intracranial abnormality. Dictated by: Kristian Bolton M.D. on 10/04/2018 at 15:52 Approved by: Kristian Bolton M.D. on 10/04/2018 at 15:53 Right ribs: Radiologist's impression: [address] [address] XRay Report Signed Patient: Melvi Gibbs [facility]#: [id number] : 1965Acct:[id number] Age/Sex: 53 / FDate of Service: 10/04/18 Loc: ED Accession Number: [id number] Procedure: XR ribs RT min 3V w CXR1V Ordering Provider: Xuan Garcia D.O. PROCEDURE: XR RIBS RT MIN 3V W CXR 1V INDICATIONS: fall w/ right rib pain TECHNIQUE: 2 views of the right ribs were acquired, along with a single view chest. COMPARISON: [facility], , XR CHEST 2V, 08/30/2018, 3:59. MEDIASTINUM: Mediastinal contours appear normal. Heart size is normal. IMPRESSION: Mild bibasilar alveolar infiltration, suspicious for pneumonia but in the setting of trauma mild pulmonary contusion or posttraumatic atelectasis also could has this appearance. A Dictated by: Akbar Ortiz M.D. on 10/04/2018 at 15:06 Approved by: Abkar Ortiz M.D. on 10/04/2018 at 15:07 [facility] Narrative Medical decision making narrative: The patient is a 53-year-old female with a complicated medical history presents after a fall last night. I initially obtained is chest x-ray, which showed infiltration suspicious for pneumonia but could be a pulmonary contusion or posttraumatic atelectasis. Thus I also ordered a CT. At this point the patient initially refused lab work, but later relinquished to lab work. Showed a white blood cell count elevation, increasing suspicion of pneumonia. However the patient adamantly refused a CT several times. She later decided that she wanted to leave against medical advice. I discussed at length with her that she was risking by doing this, I offered to treat her for pneumonia, gave her a prescription for doxycycline. I disc ussed at length that I thought she should stay for further evaluation. However the patient discussed the fact that she did not know me, that the floors made her socks black and that we did not bring her water often enough. She stated she did not want further workup. She stated understanding of risk of . She left against medical advice. I encouraged her to follow up with her PCP or come back to the ER for any acute concerns. Ramon GRUBER was witness to conversations. <Xuan Garcia, DO - Last Filed: 10/04/18 19:54> Lab Data Lab Results 10/04/18 10/04/18 10/04/18 Range/Units 17:14 17:14 17:14 WBC 24.1 H (4.5-11.0) X10^3/uL RBC 4.04 (4.0-5.2) X10^6/uL Hgb 12.7 (12.0-16.0) g/dL Hct 37.2 (36-46) % MCV 92.1 (80-100) fL MCH 31.4 (26-34) PG MCHC 34.1 (30-36) % RDW 13.0 (11.6-14.8) % Plt Count 329 (150-400) X10^3/uL Neut % (Auto) 83.9 H (50-75) % Lymph % (Auto) 12.3 L (25-40) % [place] % (Auto) 2.8 L (3-14) % Eos % (Auto) 0.3 L (2-4) % Baso % (Auto) 0.7 (0-2) % Neut # (Auto) 77422 H (5577-9084) /uL Lymph # (Auto) 3000 (3846-3337) /uL [place] # (Auto) 700 (0-900) /uL Eos # (Auto) 100 (0-450) /uL Baso # (Auto) 200 H (0-100) /uL PT 11.0 (10.1-12.7) SECONDS INR 1.0 (0.9-1.3) Sodium 138 (137-145) mmol/L Potassium 3.9 (3.4-5.1) mmol/L Chloride 109 H (98-107) mmol/L Carbon Dioxide 20 L (22-32) mmol/L BUN 17 (7-17) mg/dL Creatinine 0.90 (0.52-1.04) mg/dL Estimated GFR > 60.0 (>60) mL/min BUN/Creatinine Ratio 18.9 (6-22) Glucose 149 H (70-100) mg/dL Lactate (0.7-2.1) mmol/L Calcium 10.0 (8.4-10.2) mg/dL Total Bilirubin 0.4 (0.2-1.3) mg/dL AST 45 H (14-36) IU/L ALT 14 (9-52) IU/L Alkaline Phosphatase 122 (38-126) U/L Total Protein 7.9 (6.3-8.2) g/dL Albumin 4.3 (3.5-5.0) g/dL Globulin 3.6 (1.7-4.1) g/dL Albumin/Globulin Ratio 1.2 (1.0-2.8) Procalcitonin (<0.5) ng/mL 10/04/18 10/04/18 Range/Units 17:55 17:55 WBC (4.5-11.0) X10^3/uL RBC (4.0-5.2) X10^6/uL Hgb (12.0-16.0) g/dL Hct (36-46) % MCV (80-100) fL MCH (26-34) PG MCHC (30-36) % RDW (11.6-14.8) % Plt Count (150-400) X10^3/uL Neut % (Auto) (50-75) % Lymph % (Auto) (25-40) % [place] % (Auto) (3-14) % Eos % (Auto) (2-4) % Baso % (Auto) (0-2) % Neut # (Auto) (4430-3217) /uL Lymph # (Auto) (2047-1560) /uL [place] # (Auto) (0-900) /uL Eos # (Auto) (0-450) /uL Baso # (Auto) (0-100) /uL PT (10.1-12.7) SECONDS INR (0.9-1.3) Sodium (137-145) mmol/L Potassium (3.4-5.1) mmol/L Chloride (98-107) mmol/L Carbon Dioxide (22-32) mmol/L BUN (7-17) mg/dL Creatinine (0.52-1.04) mg/dL Estimated GFR (>60) mL/min BUN/Creatinine Ratio (6-22) Glucose (70-100) mg/dL Lactate 1.4 (0.7-2.1) mmol/L Calcium (8.4-10.2) mg/dL Total Bilirubin (0.2-1.3) mg/dL AST (14-36) IU/L ALT (9-52) IU/L Alkaline Phosphatase (38-126) U/L Total Protein (6.3-8.2) g/dL Albumin (3.5-5.0) g/dL Globulin (1.7-4.1) g/dL Albumin/Globulin Ratio (1.0-2.8) Procalcitonin 0.38 (<0.5) ng/mL Discharge Plan Departure Patient Disposition: Left Against Medical Advice Clinical Impression: Left against medical advice Discharge Date/Time: 10/04/18 18:31 Interventions: ED Discharge Assessment Last Done: 10/04/18 18:31 Prescriptions: New doxycycline hyclate 100 mg tablet 100 mg PO BID Qty: 20 RF: 0 No Action hydroxyzine HCl 25 MG tablet 25 mg PO TID PRN (Reason: Anxiety) Qty: 0 RF: 0 magnesium oxide 400 MG tablet 400 mg PO BEDTIME Qty: 0 RF: 0 albuterol sulfate [Proventil HFA] 90 MCG/PUFF HFA aerosol inhaler 2 puff INH Q4HP PRN (Reason: Shortness Of Breath) Qty: 0 RF: 0 duloxetine 60 MG capsule,delayed release(DR/EC) 60 mg PO DAILY Qty: 0 RF: 0 gabapentin [Neurontin] 300 MG capsule 600 mg PO TID Qty: 0 RF: 0 multivitamin [Multiple Vitamins] 1 EACH tablet 1 tab PO DAILY Qty: 0 RF: 0 zolpidem [Ambien] 10 MG tablet 10 mg PO HS PRN (Reason: Insomnia) Qty: 0 RF: 0 lorazepam 0.5 mg tablet 0.5 mg PO BID PRN (Reason: Anxiety) RF: 0 aspirin 81 mg tablet,chewable 81 mg PO DAILY RF: 0 hydrocodone-acetaminophen [[place]] 5-325 mg tablet 1 - 2 tab PO Q6H PRN (Reason: pain) RF: 0 amitriptyline 50 mg tablet 150 mg PO BEDTIME RF: 0 potassium chloride 20 mEq tablet,ER particles/crystals 20 meq PO QNOON RF: 0 lisinopril 10 mg tablet 10 mg PO DAILY RF: 0 omeprazole 20 mg capsule,delayed release(DR/EC) 20 mg PO BID RF: 0 ondansetron 4 mg tablet,disintegrating 1 tab Translingual Q6H PRN (Reason: Nausea) RF: 0 Humulin N NPH Insulin KwikPen 100 unit/mL (3 mL) insulin pen 15 units Sub-Q BEDTIME RF: 0 Xarelto 20 mg tablet 20 mg PO DAILY RF: 0 Probiotic 1 tab PO BID RF: 0 vitamin E 1 cap PO DAILY RF: 0 Referrals: Fadi Ko DO [Primary Care Provider] - Stand Alone Forms: Against Medical Advice <Xuan Garcia DO - Last Filed: 10/04/18 19:54> Cosign ED Attending Cosignature Attestation: I was immediately available in the department for consultation, case discussed and CXR findings discussed. With recent trauma CT ordered but patient refusing after multiple conversations, labs show elevated WBC, tachycardia, and tachypnea initially but improving. Procalcitonin is positive for LRT range of infection. Lactate normal. Patient given rx for potential pneumonia although traumatic cause not ruled out. This documentation has been reviewed and I agree with assessment and plan at this point. Supervised by Xuan Garcia DO
[2018-10-04 18:42] LABS: Procalcitonin 0.38 ng/mL (<0.5)
== END 2018-10-04 18:31 | disposition left against medical advice (07) ==
PROVIDERS: Emergency Provider Nurse Practitioner Family; PCP Family Medicine
DX: S09.90XA Unspecified injury of head, initial encounter (principal); R07.81 Pleurodynia; M79.642 Pain in left hand; W01.0XXA Fall on same level from slipping, tripping and stumbling without subsequent striking against object, initial encounter; Z79.01 Long term (current) use of anticoagulants; Z53.20 Procedure and treatment not carried out because of patient's decision for unspecified reasons
CPT/HCPCS: 36415; 36591; 70450; 71101; 73130; 80053; 83605; 84145; 85025; 85610; 99282; 99284

== ENCOUNTER 2019-02-03 12:28 | Emergency (ER) | payer OTHER, SELFPAY ==
[2019-02-03 12:37] VITALS: BP 113/77; PULSE 90; RESP 14; TEMP 36.4; O2SAT 96
[2019-02-03 13:07] LABS: Bilirubin Urine UA NEGATIVE (NEGATIVE); Color Urine UA YELLOW; Glucose Urine UA 2+ g/dL (Negative); Ketones Urine UA NEGATIVE (NEGATIVE); Leukocyte Esterase Urine UA TRACE (NEGATIVE); Nitrite Urine UA POSITIVE (Negative); Occult Blood Urine UA 1+ (Negative); Protein Urine UA NEGATIVE (Negative); Specific Gravity Urine UA <=1.005 (1.000-1.035); Urobilinogen Urine UA 0.2 E.U./dL (0.2)
[2019-02-03 13:11] LABS: Appearance Urine UA CLOUDY
[2019-02-03 13:15] LABS: RBC Urine 5-10/HPF (0-5/HPF)
[2019-02-03 13:16] LABS: Amorphous Sediment Urine 1+; Bacteria Urine Many (>30); Culture Indicated Urine Specimen Cultured; Mucus Urine 1+ (Negative); Squamous Epithelial Cell Urine 1-5 /HPF (0-5/HPF); WBC Urine 5-10/HPF (0-5/HPF)
--- NOTE | 2019-02-03 13:31 | ED.FEMALEGU ---
HPI - Female Genitourinary General Chief complaint: Urogenital-Female Stated complaint: POSSIBLE SEPTIC/ INFECTION Time Seen by Provider: 02/03/19 13:13 Source: patient Mode of arrival: Ambulatory Limitations: no limitations History of Present Illness HPI Narrative: Patient is a 53-year-old female who has frequent UTIs. She has a cystostomy, today she presents with right sided flank pain which is typically something that normally happens to her. She also has a cough no real shortness of breath. She has had some fevers and chills her last day or so however she is afebrile and appears well. No abdominal pain nausea or vomiting. She actually is postop from a cholecystectomy 3 weeks ago. She has been doing well and recovering from that. MD Complaint: UTI Related Data Home Medications Medication Instructions Recorded Confirmed albuterol sulfate [Proventil HFA] 2 puff INH Q4HP PRN #0 01/08/13 10/04/18 hydroxyzine HCl 25 mg PO TID PRN #0 01/08/13 10/04/18 magnesium oxide 400 mg PO BEDTIME #0 tab 01/08/13 10/04/18 duloxetine 60 mg PO DAILY #0 07/04/17 10/04/18 gabapentin [Neurontin] 600 mg PO TID #0 07/04/17 10/04/18 multivitamin [Multiple Vitamins] 1 tab PO DAILY #0 07/04/17 10/04/18 zolpidem [Ambien] 10 mg PO HS PRN #0 07/04/17 10/04/18 Probiotic 1 tab PO BID 09/26/17 10/04/18 amitriptyline 150 mg PO BEDTIME 09/26/17 10/04/18 insulin NPH isoph U-100 human 15 units SUB-Q BEDTIME 09/26/17 10/04/18 [Humulin N NPH Insulin KwikPen] lisinopril 10 mg PO DAILY 09/26/17 10/04/18 omeprazole 20 mg PO BID 09/26/17 10/04/18 ondansetron 1 tab TRANSLINGUAL Q6H PRN 09/26/17 10/04/18 potassium chloride 20 meq PO QNOON 09/26/17 10/04/18 rivaroxaban [Xarelto] 20 mg PO DAILY 07/02/18 07/02/18 vitamin E 1 cap PO DAILY 09/26/17 09/26/17 lorazepam 0.5 mg PO BID PRN 05/30/18 10/04/18 aspirin 81 mg PO DAILY 06/13/18 10/04/18 hydrocodone-acetaminophen [[place]] 1 - 2 tab PO Q6H PRN 10/04/18 10/04/18 Previous Rx's Medication Instructions Recorded doxycycline hyclate 100 mg PO BID #20 tab 10/04/18 sulfamethoxazole-trimethoprim 1 tab PO BID 7 Days #14 tab 02/03/19 [Bactrim DS] Allergies Allergy/AdvReac Type Severity Reaction Status Date / Time mupirocin Allergy Unknown Verified 02/03/19 12:41 naproxen Allergy Unknown Verified 02/03/19 12:41 Penicillins Allergy Unknown SINCE Verified 02/03/19 12:41 CHILDHOOD droperidol AdvReac Unknown Verified 02/03/19 12:41 fenofibrate [FENOFIBRATE] AdvReac Unknown Verified 02/03/19 12:41 ibuprofen AdvReac Unknown NAUSEA Verified 02/03/19 12:41 metformin [METFORMIN] AdvReac Unknown Verified 02/03/19 12:41 metoclopramide AdvReac Unknown BECAME Verified 02/03/19 12:41 JITTERY AND ANXIOUS nitrofurantoin AdvReac Unknown NAUSEA Verified 02/03/19 12:41 Review of Systems Review of Systems ROS Unobtainable: All systems reviewed & are unremarkable except as noted in HPI and below Constitutional Constitutional: Denies chills, Denies fever(s), Denies lethargy and Denies weakness Eyes Eyes: Denies change in vision, Denies eye discharge, Denies irritation and Denies loss of vision ENT Ears, Nose, Mouth, and Throat: Denies change in voice, Denies neck pain and Denies sore throat Cardiovascular Cardiovascular: Denies chest pain, Denies irregular heart rhythm, Denies lightheadedness, Denies palpitations and Denies orthopnea Respiratory Respiratory: Reports cough Gastrointestinal Gastrointestinal: Denies abdominal pain, Denies change in bowel habits, Denies diarrhea, Denies nausea and Denies vomiting Genitourinary Genitourinary: Reports as per HPI Musculoskeletal Musculoskeletal: Denies neck pain Integumentary/Breasts Skin/Breast: Denies pruritus, Denies erythema, Denies rash and Denies wounds Neurologic Neurologic: Denies loss of vision and Denies weakness Endocrine Endocrine: Denies palpitations Patient History Medical History Anxiety (Chronic) Endometriosis (Chronic) Fibromyalgia (Chronic) Heart palpitations (Chronic) History of asthma (Chronic) History of chronic hypertension (Chronic) History of COPD (Chronic) History of depression (Chronic) History of gastrointestinal ulcer (Chronic) History of kidney stones (Chronic) History of migraine (Chronic) History of panic attacks (Chronic) History of type 2 diabetes mellitus (Chronic) Interstitial cystitis (Chronic) Port-a-cath in place (Chronic) UTI (urinary tract infection) (Chronic) Surgical History S/P appendectomy (Resolved) Status post hysterectomy (Resolved) Family History Other Family history non-contributory alcohol intake frequency: a few times a week Substance Use Type: former substance user and marijuana Exam Initial Vital Signs Initial Vital Signs: Vital Signs Temperature 97.5 F L 02/03/19 12:37 Pulse Rate 90 02/03/19 12:37 Respiratory Rate 14 02/03/19 12:37 Blood Pressure 113/77 02/03/19 12:37 Pulse Oximetry 96 02/03/19 12:37 GENERAL: Well-appearing, well-nourished and in no acute distress. HEENT: Head atraumatic,EOMI, pupils reactive, face symmetric, moist mucous membranes CARDIOVASCULAR: Regular rate and rhythm without murmurs, rubs or gallops. RESPIRATORY: Breath sounds equal bilaterally, no wheezes rales or rhonchi. ABDOMEN: Soft, cystostomy noted urine in bag slightly cloudy : No CVA tenderness EXTREMITIES: Normal range of motion, no clubbing or edema. Neurovascularly intact NEUROLOGICAL: Alert and oriented x4.Normal gait and speech. Cranial nerves II through XII grossly intact. SKIN: Warm, dry, no laceration, no petechiae, no rashes or lesions. Course Orders Ordered: ED Orders 02/03/19 12:42 Urinalysis and Microscopic Stat Urine Culture Stat 02/03/19 13:34 XR chest 2V Stat 02/03/19 13:37 Complete Blood Count AUTO DIFF Stat Comprehensive Metabolic Panel Stat Lactate (Lactic Acid) Stat Procalcitonin Stat Discontinued Medications Hydromorphone HCl (Dilaudid) 1 mg SUBCUT Q4H PRN PRN Reason: Pain, Severe (7-10) Last Admin: 02/03/19 13:53 Dose: 1 mg Documented by: EDMUND Vital Signs Vital signs: Vital Signs - 8 hr 02/03/19 12:37 02/03/19 14:56 Temperature 97.5 F L Pulse Rate 90 92 H Respiratory Rate 14 16 Blood Pressure 113/77 Blood Pressure [Left Arm] 112/63 Pulse Oximetry 96 97 MDM - Female Genitourinary Lab Data Attestation: I reviewed the patient's lab results. Result diagrams: 02/03/19 13:37 02/03/19 13:37 Labs: Lab Results 02/03/19 02/03/19 02/03/19 Range/Units 12:42 13:37 13:37 WBC 9.4 (4.5-11.0) X10^3/uL RBC 4.02 (4.0-5.2) X10^6/uL Hgb 12.9 (12.0-16.0) g/dL Hct 38.4 (36-46) % MCV 95.5 (80-100) fL MCH 32.2 (26-34) PG MCHC 33.7 (30-36) % RDW 13.8 (11.6-14.8) % Plt Count 341 (150-400) X10^3/uL Neut % (Auto) 59.6 (50-75) % Lymph % (Auto) 31.7 (25-40) % [place] % (Auto) 5.5 (3-14) % Eos % (Auto) 1.8 L (2-4) % Baso % (Auto) 1.4 (0-2) % Neut # (Auto) 5600 (4477-9166) /uL Lymph # (Auto) 3000 (3056-1752) /uL [place]uming # (Auto) 500 (0-900) /uL Eos # (Auto) 200 (0-450) /uL Baso # (Auto) 100 (0-100) /uL Sodium (137-145) mmol/L Potassium (3.4-5.1) mmol/L Chloride (98-107) mmol/L Carbon Dioxide (22-32) mmol/L BUN (7-17) mg/dL Creatinine (0.52-1.04) mg/dL Estimated GFR (>60) mL/min BUN/Creatinine Ratio (6-22) Glucose (70-100) mg/dL Lactate (0.7-2.1) mmol/L Calcium (8.4-10.2) mg/dL Total Bilirubin (0.2-1.3) mg/dL AST (14-36) IU/L ALT (<35) IU/L Alkaline Phosphatase (38-126) U/L Total Protein (6.3-8.2) g/dL Albumin (3.5-5.0) g/dL Globulin (1.7-4.1) g/dL Albumin/Globulin Ratio (1.0-2.8) Procalcitonin < 0.05 (<0.5) ng/mL Urine Color Yellow Urine Appearance Cloudy Urine pH 7.0 (4.5-8.0) Ur Specific [place] <=1.005 (1.000-1.035) Urine Protein Negative (Negative) Urine Glucose (UA) 2+ H (Negative) g/dL Urine Ketones Negative (NEGATIVE) Urine Occult Blood 1+ H (Negative) Urine Nitrate Positive (Negative) Urine Bilirubin Negative (NEGATIVE) Urine Urobilinogen 0.2 (0.2) E.U./dL Ur Leukocyte Esterase Trace H (NEGATIVE) Urine RBC 5-10/hpf H (0-5/HPF) Urine WBC 5-10/hpf H (0-5/HPF) Ur Squamous Epith Cells 1-5 /hpf (0-5/HPF) Amorphous Sediment 1+ Urine Bacteria Many (>30) H (None) Urine Mucus 1+ H (Negative) Ur Culture Indicated? Specimen cultured 02/03/19 02/03/19 Range/Units 13:37 13:37 WBC (4.5-11.0) X10^3/uL RBC (4.0-5.2) X10^6/uL Hgb (12.0-16.0) g/dL Hct (36-46) % MCV (80-100) fL MCH (26-34) PG MCHC (30-36) % RDW (11.6-14.8) % Plt Count (150-400) X10^3/uL Neut % (Auto) (50-75) % Lymph % (Auto) (25-40) % [place] % (Auto) (3-14) % Eos % (Auto) (2-4) % Baso % (Auto) (0-2) % Neut # (Auto) (8136-8106) /uL Lymph # (Auto) (2547-3251) /uL [place] # (Auto) (0-900) /uL Eos # (Auto) (0-450) /uL Baso # (Auto) (0-100) /uL Sodium 138 (137-145) mmol/L Potassium 4.4 (3.4-5.1) mmol/L Chloride 104 (98-107) mmol/L Carbon Dioxide 23 (22-32) mmol/L BUN 19 H (7-17) mg/dL Creatinine 0.70 (0.52-1.04) mg/dL Estimated GFR > 60.0 (>60) mL/min BUN/Creatinine Ratio 27.1 H (6-22) Glucose 279 H (70-100) mg/dL Lactate 1.3 (0.7-2.1) mmol/L Calcium 9.7 (8.4-10.2) mg/dL Total Bilirubin 0.3 (0.2-1.3) mg/dL AST 24 (14-36) IU/L ALT 41 H (<35) IU/L Alkaline Phosphatase 156 H (38-126) U/L Total Protein 8.0 (6.3-8.2) g/dL Albumin 4.8 (3.5-5.0) g/dL Globulin 3.2 (1.7-4.1) g/dL Albumin/Globulin Ratio 1.5 (1.0-2.8) Procalcitonin (<0.5) ng/mL Urine Color Urine Appearance Urine pH (4.5-8.0) Ur Specific [place] (1.000-1.035) Urine Protein (Negative) Urine Glucose (UA) (Negative) g/dL Urine Ketones (NEGATIVE) Urine Occult Blood (Negative) Urine Nitrate (Negative) Urine Bilirubin (NEGATIVE) Urine Urobilinogen (0.2) E.U./dL Ur Leukocyte Esterase (NEGATIVE) Urine RBC (0-5/HPF) Urine WBC (0-5/HPF) Ur Squamous Epith Cells (0-5/HPF) Amorphous Sediment Urine Bacteria (None) Urine Mucus (Negative) Ur Culture Indicated? Imaging Data Chest x-ray: Radiologist's impression: PROCEDURE: XR CHEST 2V INDICATIONS: cough TECHNIQUE: 2 views of the chest were acquired. COMPARISON: [facility], CT, PE STUDY (CTA CHEST), 05/14/2017, 16:36. [facility], CR, XR CHEST 1V, 05/30/2018, 15:45. [facility], CR, XR CHEST 2V, 06/13/2018, 10:05. [facility], CR, XR RIBS RT MIN 3V W CXR 1V, 10/04/2018, 13:51. [facility], CR, XR CHEST 2V, 08/30/2018, 3:59. FINDINGS: Surgical changes and devices: Cholecystectomy clips are seen. Lungs and pleura: Lungs are clear. No pleural effusions or pneumothorax. Mediastinum: Mediastinal contours are normal. Heart size is normal. Bones and chest wall: No suspicious bony abnormalities. Age-appropriate bony degenerative changes are seen. Soft tissues appear unremarkable. IMPRESSION: Clear lungs, without focal infiltrates. Postoperative and degenerative changes are seen. Dictated by: Damion Bonner M.D. on 02/03/2019 at 13:03 Approved by: Damion Bonner M.D. on 02/03/2019 at 13:04 [facility] Narrative Medical decision making narrative: Blood work overall reassuring patient looks well. Pain is improved after Dilaudid. She does have a UTI. Antibiotics are prescribed based on previous culture and allergies. Discharge Plan Departure Patient Disposition: Home Clinical Impression: UTI (urinary tract infection) Qualifiers: Urinary tract infection type: catheter-associated UTI Indwelling urinary catheter type: unspecified Encounter type: initial encounter Qualified Code(s): T83.511A - Infection and inflammatory reaction due to indwelling urethral catheter, initial encounter Discharge Date/Time: 02/03/19 15:01 Instructions: DI for Urinary Tract Infection (UTI) Activity Restrictions/Additional Instructions: *You have been diagnosed with UTI *What to do: At this time blood work and x-ray are reassuring. *Continue to take medications as directed Bactrim 1 tablet twice a day for 7 days *Follow up with your primary care provider in 2-3 days *Return to ER if you should have increasing pain, confusion, vomiting or any new, worsening or concerning symptoms Prescriptions: New sulfamethoxazole-trimethoprim [Bactrim DS] 800-160 mg tablet 1 tab PO BID 7 Days Qty: 14 RF: 0 No Action hydroxyzine HCl 25 MG tablet 25 mg PO TID PRN (Reason: Anxiety) Qty: 0 RF: 0 magnesium oxide 400 MG tablet 400 mg PO BEDTIME Qty: 0 RF: 0 albuterol sulfate [Proventil HFA] 90 MCG/PUFF HFA aerosol inhaler 2 puff INH Q4HP PRN (Reason: Shortness Of Breath) Qty: 0 RF: 0 duloxetine 60 MG capsule,delayed release(DR/EC) 60 mg PO DAILY Qty: 0 RF: 0 gabapentin [Neurontin] 300 MG capsule 600 mg PO TID Qty: 0 RF: 0 multivitamin [Multiple Vitamins] 1 EACH tablet 1 tab PO DAILY Qty: 0 RF: 0 zolpidem [Ambien] 10 MG tablet 10 mg PO HS PRN (Reason: Insomnia) Qty: 0 RF: 0 lorazepam 0.5 mg tablet 0.5 mg PO BID PRN (Reason: Anxiety) RF: 0 aspirin 81 mg tablet,chewable 81 mg PO DAILY RF: 0 hydrocodone-acetaminophen [[place]] 5-325 mg tablet 1 - 2 tab PO Q6H PRN (Reason: pain) RF: 0 doxycycline hyclate 100 mg tablet 100 mg PO BID Qty: 20 RF: 0 amitriptyline 50 mg tablet 150 mg PO BEDTIME RF: 0 potassium chloride 20 mEq tablet,ER particles/crystals 20 meq PO QNOON RF: 0 lisinopril 10 mg tablet 10 mg PO DAILY RF: 0 omeprazole 20 mg capsule,delayed release(DR/EC) 20 mg PO BID RF: 0 ondansetron 4 mg tablet,disintegrating 1 tab Translingual Q6H PRN (Reason: Nausea) RF: 0 Humulin N NPH Insulin KwikPen 100 unit/mL (3 mL) insulin pen 15 units Sub-Q BEDTIME RF: 0 Xarelto 20 mg tablet 20 mg PO DAILY RF: 0 Probiotic 1 tab PO BID RF: 0 vitamin E 1 cap PO DAILY RF: 0 Referrals: Fadi Ko DO [Primary Care Provider] -
--- NOTE | 2019-02-03 13:34 | DI.RAD.S_ITS ---
PROCEDURE: XR CHEST 2V INDICATIONS: cough TECHNIQUE: 2 views of the chest were acquired. COMPARISON: [facility], CT, PE STUDY (CTA CHEST), 05/14/2017, 16:36. [facility], CR, XR CHEST 1V, 05/30/2018, 15:45. [facility], CR, XR CHEST 2V, 06/13/2018, 10:05. [facility], CR, XR RIBS RT MIN 3V W CXR 1V, 10/04/2018, 13:51. [facility], CR, XR CHEST 2V, 08/30/2018, 3:59. FINDINGS: Surgical changes and devices: Cholecystectomy clips are seen. Lungs and pleura: Lungs are clear. No pleural effusions or pneumothorax. Mediastinum: Mediastinal contours are normal. Heart size is normal. Bones and chest wall: No suspicious bony abnormalities. Age-appropriate bony degenerative changes are seen. Soft tissues appear unremarkable. IMPRESSION: Clear lungs, without focal infiltrates. Postoperative and degenerative changes are seen. Dictated by: Damion Bonner M.D. on 02/03/2019 at 13:03 Approved by: Damion Bonner M.D. on 02/03/2019 at 13:04
[2019-02-03 13:42] LABS: Add Manual Diff / Slide Review NO; Basophils Absolute Auto 100 /uL (0-100); Basophils Percent Auto 1.4 % (0-2); Eosinophils Absolute Auto 200 /uL (0-450); Eosinophils Percent Auto 1.8 % (2-4); Hematocrit 38.4 % (36-46); Hemoglobin 12.9 g/dL (12.0-16.0); Lymphocytes Absolute Auto 3000 /uL (1100-4500); Lymphocytes Percent Auto 31.7 % (25-40); Mean Corpuscular HGB Conc 33.7 % (30-36); Mean Corpuscular Hemoglobin 32.2 PG (26-34); Mean Corpuscular Volume 95.5 fL (80-100); Monocytes Absolute Auto 500 /uL (0-900); Monocytes Percent Auto 5.5 % (3-14); Neutrophils Absolute Auto 5600 /uL (1500-7000); Neutrophils Percent Auto 59.6 % (50-75); Platelet Count 341 X10^3/uL (150-400); Red Blood Cell Count 4.02 X10^6/uL (4.0-5.2); Red Cell Distribution Width 13.8 % (11.6-14.8); White Blood Cell Count 9.4 X10^3/uL (4.5-11.0)
[2019-02-03] MEDS: HYDROMORPHONE 2 MG INJ 1 MG SUBCUT (13:53)
[2019-02-03 13:54] LABS: Alanine Aminotransferase 41 IU/L (<35); Albumin 4.8 g/dL (3.5-5.0); Albumin Globulin Ratio 1.5 (1.0-2.8); Alkaline Phosphatase 156 U/L (38-126); Aspartate Aminotransferase 24 IU/L (14-36); BUN Creatinine Ratio 27.1 (6-22); Bilirubin Total 0.3 mg/dL (0.2-1.3); Blood Urea Nitrogen 19 mg/dL (7-17); Calcium 9.7 mg/dL (8.4-10.2); Carbon Dioxide 23 mmol/L (22-32); Chloride 104 mmol/L (98-107); Estimated Glomerular Filt Rate > 60.0 mL/min (>60); Globulin 3.2 g/dL (1.7-4.1); Glucose 279 mg/dL (70-100); HEMOLYSIS 16 (0-50); Lactate (Lactic Acid) 1.3 mmol/L (0.7-2.1); Potassium 4.4 mmol/L (3.4-5.1); Sodium 138 mmol/L (137-145)
[2019-02-03 14:19] LABS: Procalcitonin < 0.05 ng/mL (<0.5)
[2019-02-03 14:56] VITALS: BP 112/63; PULSE 92; RESP 16; O2SAT 97
== END 2019-02-03 15:01 | disposition home or self-care (01) ==
PROVIDERS: Emergency Provider Emergency Medicine; PCP Family Medicine
DX: T83.511A Infection and inflammatory reaction due to indwelling urethral catheter, initial encounter (principal); R10.9 Unspecified abdominal pain; R50.9 Fever, unspecified; R05 Cough
CPT/HCPCS: 36415; 71046; 80053; 81001; 83605; 84145; 85025; 87077; 87086; 87186; 96372; 99282; 99284; J1170

== ENCOUNTER → 2019-04-16 15:57 | Outpatient (CLI) | payer OTHER, SELFPAY ==
[2019-04-16 16:52] LABS: Appearance Urine UA CLEAR; Bilirubin Urine UA NEGATIVE (NEGATIVE); Color Urine UA YELLOW; Glucose Urine UA 2+ g/dL (Negative); Ketones Urine UA NEGATIVE (NEGATIVE); Leukocyte Esterase Urine UA NEGATIVE (NEGATIVE); Nitrite Urine UA POSITIVE (Negative); Occult Blood Urine UA TRACE-INTACT (Negative); Protein Urine UA NEGATIVE (Negative); Specific Gravity Urine UA 1.015 (1.000-1.035); Urobilinogen Urine UA 0.2 E.U./dL (0.2)
[2019-04-16 16:53] LABS: Add Manual Diff / Slide Review NO; Basophils Absolute Auto 0 /uL (0-100); Basophils Percent Auto 0.1 % (0-2); Eosinophils Absolute Auto 100 /uL (0-450); Eosinophils Percent Auto 0.5 % (2-4); Hematocrit 37.8 % (36-46); Hemoglobin 12.9 g/dL (12.0-16.0); Lymphocytes Absolute Auto 3900 /uL (1100-4500); Lymphocytes Percent Auto 37.4 % (25-40); Mean Corpuscular HGB Conc 34.1 % (30-36); Mean Corpuscular Hemoglobin 32.8 PG (26-34); Mean Corpuscular Volume 96.2 fL (80-100); Monocytes Absolute Auto 700 /uL (0-900); Monocytes Percent Auto 6.6 % (3-14); Neutrophils Absolute Auto 5700 /uL (1500-7000); Neutrophils Percent Auto 55.4 % (50-75); Platelet Count 362 X10^3/uL (150-400); Red Blood Cell Count 3.93 X10^6/uL (4.0-5.2); Red Cell Distribution Width 13.4 % (11.6-14.8); White Blood Cell Count 10.4 X10^3/uL (4.5-11.0)
[2019-04-16 17:01] LABS: pH Urine UA 6.5 (4.5-8.0)
[2019-04-16 17:02] LABS: Bacteria Urine Many (>30); Culture Indicated Urine Specimen Cultured; RBC Urine 1-5/HPF (0-5/HPF); Renal Epithelial Cells Urine 0-1/HPF (0-1/HPF); Squamous Epithelial Cell Urine 0-1 /HPF (0-5/HPF); Transitional Epi Cells Urine 0-1/HPF (0-5/HPF); WBC Urine 1-5/HPF (0-5/HPF)
[2019-04-16 17:07] LABS: Alanine Aminotransferase 21 IU/L (<35); Albumin 4.6 g/dL (3.5-5.0); Albumin Globulin Ratio 1.4 (1.0-2.8); Alkaline Phosphatase 145 U/L (38-126); Aspartate Aminotransferase 23 IU/L (14-36); BUN Creatinine Ratio 18.8 (6-22); Bilirubin Total 0.4 mg/dL (0.2-1.3); Blood Urea Nitrogen 15 mg/dL (7-17); Calcium 9.8 mg/dL (8.4-10.2); Carbon Dioxide 24 mmol/L (22-32); Chloride 99 mmol/L (98-107); Cholesterol 204 mg/dL (140-199); Estimated Glomerular Filt Rate > 60.0 mL/min (>60); Globulin 3.3 g/dL (1.7-4.1); Glucose 397 mg/dL (70-100); HDL Cholesterol 77 mg/dL (40-60); HEMOLYSIS < 15 (0-50); Sodium 133 mmol/L (137-145); Total Protein 7.9 g/dL (6.3-8.2); Triglycerides 426 mg/dL (35-150)
[2019-04-17 09:38] LABS: Lipase 16 U/L (23-300)
[2019-04-19 19:40] LABS: Alkaline Phosphatase 123 U/L (33-130)
== END ==
PROVIDERS: PCP Family Medicine; Visit Provider Family Medicine
DX: R74.8 Abnormal levels of other serum enzymes (principal); E11.9 Type 2 diabetes mellitus without complications; N39.0 Urinary tract infection, site not specified
CPT/HCPCS: 36415; 80053; 80061; 81001; 83036; 83690; 84080; 85025; 87077; 87086; 87186

== ENCOUNTER 2019-05-17 14:36 | Emergency (ER) | payer OTHER, SELFPAY ==
[2019-05-17 14:41] VITALS: BP 109/66; PULSE 111; RESP 16; TEMP 37.1; O2SAT 100; BMI 18.1
== END 2019-05-17 17:52 | disposition left against medical advice (07) ==
PROVIDERS: Emergency Provider Emergency Medicine; PCP Family Medicine
CPT/HCPCS: 99281

== ENCOUNTER 2019-05-20 14:09 | Emergency (ER) | payer OTHER, SELFPAY ==
--- NOTE | 2019-05-20 14:11 | DI.CT.S_ITS ---
PROCEDURE: CT HEAD/BRAIN WO CON INDICATIONS: fall with head injury TECHNIQUE: Noncontrast 4.5 mm thick angled axial sections acquired from the foramen magnum to the vertex, with coronal and sagittal reformats. For radiation dose reduction, the following was used: automated exposure control, adjustment of mA and/or kV according to patient size. COMPARISON: [facility], CT, CT HEAD/BRAIN WO CON, 10/04/2018, 15:37. FINDINGS: Image quality: Excellent. CSF spaces: Basal cisterns are patent. No extra-axial fluid collections. Ventricles are normal in size and shape. Brain: No midline shift. No intracranial masses or hemorrhage. Abel-white matter interface is normal. Skull and face: Calvarium and visualized facial bones are intact, without suspicious lesions. Sinuses: Visualized sinuses and mastoids are clear. IMPRESSION: Negative head CT. No acute intracranial hemorrhage. Dictated by: Mikhail Carlin M.D. on 05/20/2019 at 14:10 Approved by: Mikhail Carlin M.D. on 05/20/2019 at 14:11
--- NOTE | 2019-05-20 14:11 | DI.CT.S_ITS ---
PROCEDURE: CT CERVICAL SPINE WO CON INDICATIONS: fall with neck pain TECHNIQUE: Noncontrast 3 mm thick sections acquired from the skull base to the T4 level. Sagittal and coronal reformats were then constructed. For radiation dose reduction, the following was used: automated exposure control, adjustment of mA and/or kV according to patient size. COMPARISON: None. FINDINGS: Image quality: Diagnostic. Bones: The craniocervical and atlantoaxial joints are well-maintained. The odontoid is intact. The vertebral body heights and prevertebral soft tissues are within normal limits throughout the cervical spine without evidence to suggest acute compression fracture. No other fractures are evident within the cervical spine. The bone mineralization is within normal limits. Moderate multilevel degenerative changes of the cervical spine are present with areas of disc height loss, endplate sclerosis, disc osteophyte complex formation, and facet arthrosis. These findings are most pronounced at the levels of C5-6 and C6-7. Soft tissues: No prevertebral soft tissue swelling. The imaged lung apices are clear. Imaged portions of the mediastinum are unremarkable. Mild paraseptal emphysematous changes within the bilateral lung apices is present with additional areas of mild scarring. Otherwise, the remainder of the imaged soft tissues of the neck are within normal limits. IMPRESSION: 1. No acute fractures of the cervical spine. 2. Moderate degenerative changes of the cervical spine. Dictated by: Mikhail Carlin M.D. on 05/20/2019 at 14:11 Approved by: Mikhail Carlin M.D. on 05/20/2019 at 14:14
--- NOTE | 2019-05-20 14:13 | ED.HEATRA ---
HPI - Head Injury General Chief complaint: Fall Stated complaint: Fall Time Seen by Provider: 05/20/19 14:11 Source: patient and EMS Mode of arrival: EMS Limitations: no limitations History of Present Illness HPI Narrative: 53-year-old female smoker with chronic medical problems presents with a chief complaint of head and neck pain after she slipped on ice cube in her kitchen. She fell backwards and struck her head and denies loss of consciousness, nausea, vomiting, neurologic findings or the use of blood thinners. She is not under the influence of alcohol or street drugs. She is currently being treated on antibiotics for infection. She denies any chest pain or shortness of breath. She does have of a headache and some pain to the left side of her cervical spine which is worse with range of motion and palpation. MD Complaint: head injury, head pain and fall Onset (ago): minute(s) Mechanism of Injury: fall Place: home Loss of Consciousness: no Location of injury: occipital Severity: mild Quality: aching Radiation: none Other Injuries: neck Associated symptoms: denies other symptoms Related Data Home Medications Medication Instructions Recorded Confirmed albuterol sulfate [Proventil HFA] 2 puff INH Q4HP PRN #0 01/08/13 10/04/18 hydroxyzine HCl 25 mg PO TID PRN #0 01/08/13 05/17/19 magnesium oxide 400 mg PO BEDTIME #0 tab 01/08/13 05/17/19 duloxetine 60 mg PO DAILY #0 07/04/17 05/17/19 gabapentin [Neurontin] 600 mg PO TID #0 07/04/17 05/17/19 multivitamin [Multiple Vitamins] 1 tab PO DAILY #0 07/04/17 10/04/18 zolpidem [Ambien] 10 mg PO HS PRN #0 07/04/17 05/17/19 Probiotic 1 tab PO BID 09/26/17 10/04/18 amitriptyline 150 mg PO BEDTIME 09/26/17 05/17/19 lisinopril 10 mg PO DAILY 09/26/17 05/17/19 omeprazole 20 mg PO DAILY 09/26/17 05/17/19 ondansetron 1 tab TRANSLINGUAL Q6H PRN 09/26/17 10/04/18 potassium chloride 20 meq PO QNOON 09/26/17 05/17/19 vitamin E 1 cap PO DAILY 09/26/17 09/26/17 lorazepam 0.5 mg PO BID PRN 05/30/18 05/17/19 aspirin 81 mg PO DAILY 06/13/18 10/04/18 hydrocodone-acetaminophen [[place]] 1 - 2 tab PO Q6H PRN 10/04/18 10/04/18 insulin NPH isoph U-100 human 15 unit SUBCUT BID 05/17/19 05/17/19 [Humulin N NPH Insulin KwikPen] methocarbamol 1,000 mg PO Q6H PRN 05/17/19 05/17/19 prochlorperazine maleate 10 mg PO Q6H PRN 05/17/19 05/17/19 tizanidine 4 mg PO TID PRN 05/17/19 05/17/19 Allergies Allergy/AdvReac Type Severity Reaction Status Date / Time mupirocin Allergy Unknown Verified 05/17/19 14:41 naproxen Allergy Unknown Verified 05/17/19 14:41 Penicillins Allergy Unknown SINCE Verified 05/17/19 14:41 CHILDHOOD droperidol AdvReac Unknown Verified 05/17/19 14:41 fenofibrate [FENOFIBRATE] AdvReac Unknown Verified 05/17/19 14:41 ibuprofen AdvReac Unknown NAUSEA Verified 05/17/19 14:41 metformin [METFORMIN] AdvReac Unknown Verified 05/17/19 14:41 metoclopramide AdvReac Unknown BECAME Verified 05/17/19 14:41 JITTERY AND ANXIOUS nitrofurantoin AdvReac Unknown NAUSEA Verified 05/17/19 14:41 Review of Systems Constitutional Constitutional: Denies chills, Denies fatigue, Denies fever(s), Denies frequent falls, Reports headache(s), Denies lethargy and Denies weakness Eyes Eyes: Denies change in vision, Denies eye discharge, Denies irritation and Denies loss of vision ENT Ears, Nose, Mouth, and Throat: Denies change in voice, Denies dizziness, Reports headache(s), Denies neck pain, Denies sore throat and Denies throat swelling Cardiovascular Cardiovascular: Denies chest pain, Denies irregular heart rhythm, Denies lightheadedness, Denies palpitations, Denies dyspnea, Denies dyspnea on exertion and Denies orthopnea Respiratory Respiratory: Denies cough, Denies dyspnea, Denies dyspnea on exertion and Denies wheezing Gastrointestinal Gastrointestinal: Denies abdominal pain, Denies change in bowel habits, Denies diarrhea, Denies nausea and Denies vomiting Genitourinary Genitourinary: Denies hematuria, Denies flank pain, Denies urinary incontinence and Denies urinary urgency Musculoskeletal Musculoskeletal: Denies back pain, Denies muscle weakness, Denies neck pain, Denies numbness and Denies tingling Integumentary/Breasts Skin/Breast: Denies pruritus, Denies erythema, Denies rash and Denies wounds Neurologic Neurologic: Denies behavioral changes, Denies confusion, Denies dizziness, Denies frequent falls, Reports headache(s), Denies loss of vision, Denies numbness, Denies tingling and Denies weakness Psychiatric Psychiatric: Denies anxiety, Denies behavioral changes, Denies confusion, Denies depression, Denies homicidal ideation and Denies suicidal ideation Endocrine Endocrine: Denies fatigue, Denies flushing and Denies palpitations Hematologic/Lymphatic Hematologic/Lymphatic: Denies easy bruising Allergic/Immunologic Allergic/Immunologic: Denies urticaria, Denies throat swelling and Denies wheezing Patient History Medical History Anxiety (Chronic) Endometriosis (Chronic) Fibromyalgia (Chronic) Heart palpitations (Chronic) History of asthma (Chronic) History of chronic hypertension (Chronic) History of COPD (Chronic) History of depression (Chronic) History of gastrointestinal ulcer (Chronic) History of kidney stones (Chronic) History of migraine (Chronic) History of panic attacks (Chronic) History of type 2 diabetes mellitus (Chronic) Interstitial cystitis (Chronic) Port-a-cath in place (Chronic) UTI (urinary tract infection) (Chronic) Surgical History S/P appendectomy (Resolved) Status post hysterectomy (Resolved) Family History Other Family history non-contributory Social History Smoking Status: Current every day smoker Smoking Status: Current every day smoker alcohol intake frequency: a few times a week Substance Use Type: former substance user and marijuana Exam Narrative Exam Narrative: GENERAL: [53] year old patient appears stated age. Well-nourished, well-developed patient, in mild distress. GCS 15 HEAD: Atraumatic. Normocephalic. EYES: Pupils equal round and reactive. Extraocular motions intact. No scleral icterus. No injection or drainage. ENT: Nose without bleeding, purulent drainage. Throat without erythema, tonsillar hypertrophy or exudate. Airway patent. NECK: Trachea midline. No midline bony tenderness, no step-offs or crepitance. There is tenderness to palpation in the left-sided paraspinal musculature CARDIOVASCULAR: Regular rate and rhythm without murmurs, gallops, or rubs. RESPIRATORY: Clear to auscultation. Breath sounds equal bilaterally. No wheezes, rales, or rhonchi. GASTROINTESTINAL: Abdomen soft, non-tender, nondistended. EXTREMITIES: No edema or joint tenderness. BACK: Nontender without deformity or crepitance. No flank tenderness. NEURO: AOx3. SKIN: No rash or erythema of visible areas Initial Vital Signs Initial Vital Signs: Vital Signs Temperature 100.3 F H 05/20/19 14:20 Pulse Rate 87 05/20/19 14:20 Respiratory Rate 20 05/20/19 14:20 Blood Pressure 107/63 05/20/19 14:20 Pulse Oximetry 98 05/20/19 14:20 Course Orders Ordered: ED Orders 05/20/19 14:11 CT cervical spine wo con Stat CT head/brain wo con Stat Discontinued Medications Acetaminophen (Tylenol) 650 mg PO NOW ONE Stop: 05/20/19 15:17 Last Admin: 05/20/19 15:42 Dose: 650 mg Documented by: MEISENCapo Ketorolac Tromethamine (Toradol) 60 mg IM NOW ONE Stop: 05/20/19 15:17 Last Admin: 05/20/19 15:43 Dose: 60 mg Documented by: MEISENB Vital Signs Vital signs: Vital Signs - 8 hr 05/20/19 14:20 05/20/19 15:43 Temperature 100.3 F H Pulse Rate 87 88 Respiratory Rate 20 16 Blood Pressure 107/63 Blood Pressure [Right Arm] 91/56 L Pulse Oximetry 98 96 MDM - Head Injury Imaging Data CT - cervical spine: Radiologist's Impression: 19 Lyle Roman, DO Find Patient Imaging - Melvi Gibbs 53 F 1965 ACTIVITY DATE EXAM STATUS AUTHOR 05/20/19 14:11 Signed Mikhail Carlin 05/20/19 14:11 Signed Mikhail Carlin [address] [address] [address] Scan Report Signed Patient: Melvi Gibbs [facility]#: [id number] : 1965Acct:[id number] Age/Sex: 53 / FDate of Service: 05/20/19 Loc: ED Accession Number: [id number] Procedure: CT cervical spine wo con Ordering Provider: Lyle Roman D.O. PROCEDURE: CT CERVICAL SPINE WO CON INDICATIONS: fall with neck pain TECHNIQUE: Noncontrast 3 mm thick sections acquired from the skull base to the T4 level. Sagittal and coronal reformats were then constructed. For radiation dose reduction, the following was used: automated exposure control, adjustment of mA and/or kV according to patient size. COMPARISON: None. FINDINGS: Image quality: Diagnostic. Bones: The craniocervical and atlantoaxial joints are well-maintained. The odontoid is intact. The vertebral body heights and prevertebral soft tissues are within normal limits throughout the cervical spine without evidence to suggest acute compression fracture. No other fractures are evident within the cervical spine. The bone mineralization is within normal limits. Moderate multilevel degenerative changes of the cervical spine are present with areas of disc height loss, endplate sclerosis, disc osteophyte complex formation, and facet arthrosis. These findings are most pronounced at the levels of C5-6 and C6-7. Soft tissues: No prevertebral soft tissue swelling. The imaged lung apices are clear. Imaged portions of the mediastinum are unremarkable. Mild paraseptal emphysematous changes within the bilateral lung apices is present with additional areas of mild scarring. Otherwise, the remainder of the imaged soft tissues of the neck are within normal limits. IMPRESSION: 1. No acute fractures of the cervical spine. 2. Moderate degenerative changes of the cervical spine. Dictated by: Mikhail Carlin M.D. on 05/20/2019 at 14:11 Approved by: Mikhail Carlin M.D. on 05/20/2019 at 14:14 CT scan - head: Radiologist's Impression: [address] [address] [address] Scan Report Signed Patient: Melvi Gibbs [facility]#: [id number] : 1965Acct:[id number] Age/Sex: 53 / FDate of Service: 05/20/19 Loc: ED Accession Number: [id number] Procedure: CT head/brain wo con Ordering Provider: Lyle Roman D.O. PROCEDURE: CT HEAD/BRAIN WO CON INDICATIONS: fall with head injury TECHNIQUE: Noncontrast 4.5 mm thick angled axial sections acquired from the foramen magnum to the vertex, with coronal and sagittal reformats. For radiation dose reduction, the following was used: automated exposure control, adjustment of mA and/or kV according to patient size. COMPARISON: , CT, CT HEAD/BRAIN WO CON, 10/04/2018, 15:37. FINDINGS: Image quality: Excellent. CSF spaces: Basal cisterns are patent. No extra-axial fluid collections. Ventricles are normal in size and shape. Brain: No midline shift. No intracranial masses or hemorrhage. Abel-white matter interface is normal. Skull and face: Calvarium and visualized facial bones are intact, without suspicious lesions. Sinuses: Visualized sinuses and mastoids are clear. IMPRESSION: Negative head CT. No acute intracranial hemorrhage. Dictated by: Mikhail Carlin M.D. on 05/20/2019 at 14:10 Approved by: Mikhail Carlin M.D. on 05/20/2019 at 14:11 Discharge Plan Departure Patient Disposition: Home Clinical Impression: Head injury Qualifiers: Encounter type: initial encounter Qualified Code(s): S09.90XA - Unspecified injury of head, initial encounter Discharge Date/Time: 05/20/19 16:07 Prescriptions: No Action hydroxyzine HCl 25 MG tablet 25 mg PO TID PRN (Reason: Anxiety) Qty: 0 RF: 0 magnesium oxide 400 MG tablet 400 mg PO BEDTIME Qty: 0 RF: 0 albuterol sulfate [Proventil HFA] 90 MCG/PUFF HFA aerosol inhaler 2 puff INH Q4HP PRN (Reason: Shortness Of Breath) Qty: 0 RF: 0 duloxetine 60 MG capsule,delayed release(DR/EC) 60 mg PO DAILY Qty: 0 RF: 0 gabapentin [Neurontin] 300 MG capsule 600 mg PO TID Qty: 0 RF: 0 multivitamin [Multiple Vitamins] 1 EACH tablet 1 tab PO DAILY Qty: 0 RF: 0 zolpidem [Ambien] 10 MG tablet 10 mg PO HS PRN (Reason: Insomnia) Qty: 0 RF: 0 lorazepam 0.5 mg tablet 0.5 mg PO BID PRN (Reason: Anxiety) RF: 0 aspirin 81 mg tablet,chewable 81 mg PO DAILY RF: 0 hydrocodone-acetaminophen [[place]] 5-325 mg tablet 1 - 2 tab PO Q6H PRN (Reason: pain) RF: 0 methocarbamol 500 mg tablet 1,000 mg PO Q6H PRN (Reason: Muscle Spasm) RF: 0 prochlorperazine maleate 10 mg tablet 10 mg PO Q6H PRN (Reason: Nausea) RF: 0 Humulin N NPH Insulin KwikPen 100 unit/mL (3 mL) insulin pen 15 unit SUBCUT BID RF: 0 tizanidine 4 mg capsule 4 mg PO TID PRN (Reason: Nausea) RF: 0 amitriptyline 50 mg tablet 150 mg PO BEDTIME RF: 0 potassium chloride 20 mEq tablet,ER particles/crystals 20 meq PO QNOON RF: 0 lisinopril 10 mg tablet 10 mg PO DAILY RF: 0 omeprazole 20 mg capsule,delayed release(DR/EC) 20 mg PO DAILY RF: 0 ondansetron 4 mg tablet,disintegrating 1 tab Translingual Q6H PRN (Reason: Nausea) RF: 0 Probiotic 1 tab PO BID RF: 0 vitamin E 1 cap PO DAILY RF: 0 Referrals: Fadi Ko DO [Primary Care Provider] -
[2019-05-20 14:20] VITALS: BP 107/63; PULSE 87; RESP 20; TEMP 37.9; O2SAT 98
[2019-05-20] MEDS: ACETAMINOPHEN 325 MG TABLET 650 MG PO (15:42)
[2019-05-20 15:43] VITALS: BP 91/56; PULSE 88; RESP 16; O2SAT 96
[2019-05-20] MEDS: KETOROLAC 60 MG/2 ML VIAL IM (15:43)
== END 2019-05-20 16:07 | disposition home or self-care (01) ==
PROVIDERS: Emergency Provider Emergency Medicine; PCP Family Medicine
DX: S09.90XA Unspecified injury of head, initial encounter (principal); M54.2 Cervicalgia; W19.XXXA Unspecified fall, initial encounter
CPT/HCPCS: 70450; 72125; 96372; 99283; 99284; J1885

== ENCOUNTER 2019-06-17 09:13 | Emergency (ER) | payer OTHER, SELFPAY ==
[2019-06-17 09:27] VITALS: BP 140/98; PULSE 103; RESP 18; TEMP 36.7; O2SAT 100
[2019-06-17] MEDS: SODIUM CHLORIDE 0.9% 1,000 ML 1000 ML IV ×2 (09:35→11:45)
--- NOTE | 2019-06-17 09:35 | DI.RAD.S_ITS ---
PROCEDURE: XR CHEST 1V INDICATIONS: chest pain, cough TECHNIQUE: One view of the chest was acquired. COMPARISON: [facility], CR, XR CHEST 2V, 02/03/2019, 13:36. FINDINGS: Surgical changes and devices: Clips within the right upper quadrant suggest previous cholecystectomy. Lungs and pleura: Lungs are clear. No pleural effusions or pneumothorax. Mediastinum: Mediastinal contours appear normal. Heart size is normal. Bones and chest wall: No suspicious bony lesions. Overlying soft tissues appear unremarkable. IMPRESSION: Stable chest. No acute cardiopulmonary process is evident. Dictated by: Mikhail Carlin M.D. on 06/17/2019 at 9:14 Approved by: Mikhail Carlin M.D. on 06/17/2019 at 9:15
--- NOTE | 2019-06-17 09:36 | ED_ITS ---
HPI - Chest Pain General Chief Complaint: Urogenital-Female Stated Complaint: chest/ kidney pain/ dry cough Time Seen by Provider: 06/17/19 09:18 Source: patient Mode of arrival: Ambulatory Limitations: no limitations History of Present Illness HPI narrative: 53F daily smoker presents with extensive medical history presents with 2 weeks of a dry hacking cough and no significant shortness of breath. Additionally she admits to some anterior chest pain which is sharp in nature and worse with deep breath or cough. She admits to some lower back pain which is consistent with her prior urine infections. She is not dizzy nor weak or lightheaded. She denies any recent travel or exposure to persons with known or suspected powers virus. She has no headache, neck pain or sore throat. She denies any GI symptoms such as nausea, vomiting or diarrhea. MD complaint: chest pain Onset (ago): day(s) Duration: intermittent Pain location: substernal Severity: mild Quality: sharp Pain radiation: none Relieving factors: rest Exacerbating factors: inspiration and palpation Associated symptoms: cough Treatments prior to arrival chest pain: none Related Data On Oral Contraceptives: No Home Medications Medication Instructions Recorded Confirmed albuterol sulfate [Proventil HFA] 2 puff INH Q4HP PRN #0 01/08/13 10/04/18 hydroxyzine HCl 25 mg PO TID PRN #0 01/08/13 05/17/19 magnesium oxide 400 mg PO BEDTIME #0 tab 01/08/13 05/17/19 duloxetine 60 mg PO DAILY #0 07/04/17 05/17/19 gabapentin [Neurontin] 600 mg PO TID #0 07/04/17 05/17/19 multivitamin [Multiple Vitamins] 1 tab PO DAILY #0 07/04/17 10/04/18 zolpidem [Ambien] 10 mg PO HS PRN #0 07/04/17 05/17/19 Probiotic 1 tab PO BID 09/26/17 10/04/18 amitriptyline 150 mg PO BEDTIME 09/26/17 05/17/19 lisinopril 10 mg PO DAILY 09/26/17 05/17/19 omeprazole 20 mg PO DAILY 09/26/17 05/17/19 ondansetron 1 tab TRANSLINGUAL Q6H PRN 09/26/17 10/04/18 potassium chloride 20 meq PO QNOON 09/26/17 05/17/19 vitamin E 1 cap PO DAILY 09/26/17 09/26/17 lorazepam 0.5 mg PO BID PRN 05/30/18 05/17/19 aspirin 81 mg PO DAILY 06/13/18 10/04/18 hydrocodone-acetaminophen [[place]verde] 1 - 2 tab PO Q6H PRN 10/04/18 10/04/18 insulin NPH isoph U-100 human 15 unit SUBCUT BID 05/17/19 05/17/19 [Humulin N NPH Insulin KwikPen] methocarbamol 1,000 mg PO Q6H PRN 05/17/19 05/17/19 prochlorperazine maleate 10 mg PO Q6H PRN 05/17/19 05/17/19 tizanidine 4 mg PO TID PRN 05/17/19 05/17/19 Previous Rx's Medication Instructions Recorded ciprofloxacin HCl 500 mg PO BID #20 tab 06/17/19 Allergies Allergy/AdvReac Type Severity Reaction Status Date / Time mupirocin Allergy Unknown Verified 05/17/19 14:41 naproxen Allergy Unknown Verified 05/17/19 14:41 Penicillins Allergy Unknown SINCE Verified 05/17/19 14:41 CHILDHOOD droperidol AdvReac Unknown Verified 05/17/19 14:41 fenofibrate [FENOFIBRATE] AdvReac Unknown Verified 05/17/19 14:41 ibuprofen AdvReac Unknown NAUSEA Verified 05/17/19 14:41 metformin [METFORMIN] AdvReac Unknown Verified 05/17/19 14:41 metoclopramide AdvReac Unknown BECAME Verified 05/17/19 14:41 JITTERY AND ANXIOUS nitrofurantoin AdvReac Unknown NAUSEA Verified 05/17/19 14:41 Review of Systems Constitutional Constitutional: Reports body ache(s), Denies chills, Denies fatigue, Denies fe karen(s), Denies frequent falls, Denies lethargy and Denies weakness Eyes Eyes: Denies change in vision, Denies eye discharge, Denies irritation and Denies loss of vision ENT Ears, Nose, Mouth, and Throat: Denies change in voice, Denies dizziness, Denies neck pain, Denies sore throat and Denies throat swelling Cardiovascular Cardiovascular: Reports chest pain, Denies irregular heart rhythm, Denies lightheadedness, Denies palpitations, Reports dyspnea, Denies dyspnea on exertion and Denies orthopnea Respiratory Respiratory: Reports cough, Reports dyspnea, Denies dyspnea on exertion and Denies wheezing Gastrointestinal Gastrointestinal: Denies abdominal pain, Denies change in bowel habits, Denies diarrhea, Denies nausea and Denies vomiting Genitourinary Genitourinary: Denies hematuria, Denies flank pain, Denies urinary incontinence and Denies urinary urgency Musculoskeletal Musculoskeletal: Denies back pain, Denies muscle weakness, Denies neck pain, Denies numbness and Denies tingling Integumentary/Breasts Skin/Breast: Denies pruritus, Denies erythema, Denies rash and Denies wounds Neurologic Neurologic: Denies behavioral changes, Denies confusion, Denies dizziness, Denies frequent falls, Denies loss of vision, Denies numbness, Denies tingling and Denies weakness Psychiatric Psychiatric: Denies anxiety, Denies behavioral changes, Denies confusion, Denies depression, Denies homicidal ideation and Denies suicidal ideation Endocrine Endocrine: Denies fatigue, Denies flushing and Denies palpitations Hematologic/Lymphatic Hematologic/Lymphatic: Denies easy bruising Allergic/Immunologic Allergic/Immunologic: Denies urticaria, Denies throat swelling and Denies wheezing Patient History Medical History Anxiety (Chronic) Endometriosis (Chronic) Fibromyalgia (Chronic) Heart palpitations (Chronic) History of asthma (Chronic) History of chronic hypertension (Chronic) History of COPD (Chronic) History of depression (Chronic) History of gastrointestinal ulcer (Chronic) History of kidney stones (Chronic) History of migraine (Chronic) History of panic attacks (Chronic) History of type 2 diabetes mellitus (Chronic) Interstitial cystitis (Chronic) Port-a-cath in place (Chronic) UTI (urinary tract infection) (Chronic) Surgical History S/P appendectomy (Resolved) Status post hysterectomy (Resolved) Family History Other Family history non-contributory Social History Smoking Status: Current every day smoker Smoking Status: Current every day smoker alcohol intake frequency: a few times a week Substance Use Type: former substance user and marijuana Exam Narrative Exam Narrative: GENERAL: [53] year old patient appears chronically ill, a clearly not feeling well. Thin HEAD: Atraumatic. Normocephalic. EYES: Pupils equal round and reactive. Extraocular motions intact. No scleral icterus. No injection or drainage. ENT: Nose without bleeding, purulent drainage. Throat without erythema, tonsillar hypertrophy or exudate. Airway patent. NECK: Trachea midline. Non tender CARDIOVASCULAR: Regular rate and rhythm without murmurs, gallops, or rubs. Anterior chest wall tender to palpation RESPIRATORY: Clear to auscultation. Breath sounds equal bilaterally. No wheezes, rales, or rhonchi. GASTROINTESTINAL: Abdomen soft, non-tender, nondistended. EXTREMITIES: No edema or joint tenderness. BACK: Tendermmess to palpation (CVA B/L) NEURO: AOx3. SKIN: No rash or erythema of visible areas Initial Vital Signs Initial Vital Signs: Vital Signs Temperature 98.1 F 06/17/19 09:27 Pulse Rate 103 H 06/17/19 09:27 Respiratory Rate 18 06/17/19 09:27 Blood Pressure 140/98 H 06/17/19 09:27 Pulse Oximetry 100 06/17/19 09:27 Course Orders Ordered: ED Orders 06/17/19 09:35 XR chest 1V Stat EKG-12 Lead Stat 06/17/19 09:51 Influenza A & B (PCR) Stat 06/17/19 09:52 Basic Metabolic Panel Stat C-Reactive Protein Quant Stat Complete Blood Count AUTO DIFF Stat D Dimer Stat Lactate (Lactic Acid) Stat Procalcitonin Stat Troponin & CK Cardiac Panel Stat 06/17/19 09:56 Urine Culture Stat Urine Microscopic Stat 06/17/19 12:22 Blood Culture Stat Discontinued Medications Sodium Chloride (Normal Saline 0.9%) 1,000 mls @ 1,000 mls/hr IV BOLUS ONE Stop: 06/17/19 10:32 Last Infusion: 06/17/19 11:15 Dose: 0 mls/hr Documented by: Admin: 06/17/19 09:35 Dose: 1,000 mls/hr Documented by: ROBLES Sodium Chloride (Normal Saline 0.9%) 1,000 mls @ 1,000 mls/hr IV BOLUS ONE Stop: 06/17/19 12:39 Last Admin: 06/17/19 11:45 Dose: 1,000 mls/hr Documented by: ROBLES Vital Signs Vital signs: Vital Signs - 8 hr 06/17/19 09:27 06/17/19 11:28 06/17/19 12:48 Temperature 98.1 F Pulse Rate 103 H 83 84 Respiratory Rate 18 16 16 Blood Pressure 140/98 H Blood Pressure [Right Arm] 107/71 125/71 Pulse Oximetry 100 97 MDM - Chest Pain Lab Data Result diagrams: 06/17/19 09:52 06/17/19 09:52 Labs: Lab Results 06/17/19 06/17/19 06/17/19 Range/Units 09:51 09:52 09:52 WBC 12.3 H (4.5-11.0) X10^3/uL RBC 4.81 (4.0-5.2) X10^6/uL Hgb 15.4 (12.0-16.0) g/dL Hct 46.5 H (36-46) % MCV 96.6 (80-100) fL MCH 32.1 (26-34) PG MCHC 33.2 (30-36) % RDW 13.4 (11.6-14.8) % Plt Count 352 (150-400) X10^3/uL Neut % (Auto) 73.8 (50-75) % Lymph % (Auto) 19.6 L (25-40) % [place] % (Auto) 5.5 (3-14) % Eos % (Auto) 0.5 L (2-4) % Baso % (Auto) 0.6 (0-2) % Neut # (Auto) 9100 H (1904-2108) /uL Lymph # (Auto) 2400 (1968-2386) /uL [place] # (Auto) 700 (0-900) /uL Eos # (Auto) 100 (0-450) /uL Baso # (Auto) 100 (0-100) /uL D-Dimer < 200 (<230) ng/mL Sodium (137-145) mmol/L Potassium (3.4-5.1) mmol/L Chloride (98-107) mmol/L Carbon Dioxide (22-32) mmol/L BUN (7-17) mg/dL Creatinine (0.52-1.04) mg/dL Estimated GFR (>60) mL/min BUN/Creatinine Ratio (6-22) Glucose (70-100) mg/dL Lactate (0.7-2.1) mmol/L Calcium (8.4-10.2) mg/dL Total Creatine Kinase (30-135) U/L CK-MB (CK-2) CK-MB (CK-2) Rel Index Troponin I (0.01-0.034) ng/mL C-Reactive Protein (<1.0) mg/dL Procalcitonin (<0.5) ng/mL Urine RBC (0-5/HPF) Urine WBC (0-5/HPF) Urine Bacteria (None) Hyaline Casts (None) Ur Culture Indicated? Influenza A (RT-PCR) Flu a negative (NEGATIVE) Influenza B (RT-PCR) Flu b negative (NEGATIVE) 06/17/19 06/17/19 06/17/19 Range/Units 09:52 09:52 09:52 WBC (4.5-11.0) X10^3/uL RBC (4.0-5.2) X10^6/uL Hgb (12.0-16.0) g/dL Hct (36-46) % MCV (80-100) fL MCH (26-34) PG MCHC (30-36) % RDW (11.6-14.8) % Plt Count (150-400) X10^3/uL Neut % (Auto) (50-75) % Lymph % (Auto) (25-40) % [place] % (Auto) (3-14) % Eos % (Auto) (2-4) % Baso % (Auto) (0-2) % Neut # (Auto) (0603-7169) /uL Lymph # (Auto) (1355-9232) /uL [place] # (Auto) (0-900) /uL Eos # (Auto) (0-450) /uL Baso # (Auto) (0-100) /uL D-Dimer (<230) ng/mL Sodium 138 (137-145) mmol/L Potassium 4.9 (3.4-5.1) mmol/L Chloride 107 (98-107) mmol/L Carbon Dioxide 18 L (22-32) mmol/L BUN 23 H (7-17) mg/dL Creatinine 0.71 (0.52-1.04) mg/dL Estimated GFR > 60.0 (>60) mL/min BUN/Creatinine Ratio 32.4 H (6-22) Glucose 231 H (70-100) mg/dL Lactate 2.2 H (0.7-2.1) mmol/L Calcium 10.6 H (8.4-10.2) mg/dL Total Creatine Kinase 37 (30-135) U/L CK-MB (CK-2) TNP CK-MB (CK-2) Rel Index TNP Troponin I < 0.012 (0.01-0.034) ng/mL C-Reactive Protein < 0.5 (<1.0) mg/dL Procalcitonin < 0.05 (<0.5) ng/mL Urine RBC (0-5/HPF) Urine WBC (0-5/HPF) Urine Bacteria (None) Hyaline Casts (None) Ur Culture Indicated? Influenza A (RT-PCR) (NEGATIVE) Influenza B (RT-PCR) (NEGATIVE) 06/17/19 06/17/19 Range/Units 09:56 12:30 WBC (4.5-11.0) X10^3/uL RBC (4.0-5.2) X10^6/uL Hgb (12.0-16.0) g/dL Hct (36-46) % MCV (80-100) fL MCH (26-34) PG MCHC (30-36) % RDW (11.6-14.8) % Plt Count (150-400) X10^3/uL Neut % (Auto) (50-75) % Lymph % (Auto) (25-40) % [place] % (Auto) (3-14) % Eos % (Auto) (2-4) % Baso % (Auto) (0-2) % Neut # (Auto) (6722-7596) /uL Lymph # (Auto) (2651-4361) /uL [place] # (Auto) (0-900) /uL Eos # (Auto) (0-450) /uL Baso # (Auto) (0-100) /uL D-Dimer (<230) ng/mL Sodium (137-145) mmol/L Potassium (3.4-5.1) mmol/L Chloride (98-107) mmol/L Carbon Dioxide (22-32) mmol/L BUN (7-17) mg/dL Creatinine (0.52-1.04) mg/dL Estimated GFR (>60) mL/min BUN/Creatinine Ratio (6-22) Glucose (70-100) mg/dL Lactate 1.3 (0.7-2.1) mmol/L Calcium (8.4-10.2) mg/dL Total Creatine Kinase (30-135) U/L CK-MB (CK-2) CK-MB (CK-2) Rel Index Troponin I (0.01-0.034) ng/mL C-Reactive Protein (<1.0) mg/dL Procalcitonin (<0.5) ng/mL Urine RBC 1-5/hpf (0-5/HPF) Urine WBC 10-30/hpf H (0-5/HPF) Urine Bacteria Few (2-10) H (None) Hyaline Casts 1-5/lpf (None) Ur Culture Indicated? Specimen cultured Influenza A (RT-PCR) (NEGATIVE) Influenza B (RT-PCR) (NEGATIVE) Urine Dip Bedside Urine Glucose Negative Bedside Urine Bilirubin + 1 Bedside Urine Ketone - Negative Urine Specific [place] 1.015 Bedside Urine Occult Blood +/- Bedside Urine pH 6.5 Bedside Urine Protein + 30 Bedside Urine Urobilinogen - Negative Bedside Urine Nitrite - Negative Bedside Urine Leukocytes - Negative Esterase Discharge Plan Departure Patient Disposition: Home Clinical Impression: Pyelonephritis Instructions: DI for Kidney Infection Activity Restrictions/Additional Instructions: *You have been diagnosed with [acute pyelonephritis] *What to do: *Take medications as directed: [facility] *Follow up with your primary care provider in 2-3 days, call for an appointment. Let them know you were seen in the Emergency Department and that we ask that you be seen in follow up *Return to ER if you should have any new, worsening or concerning symptoms Prescriptions: New ciprofloxacin HCl 500 mg tablet 500 mg PO BID Qty: 20 RF: 0 No Action hydroxyzine HCl 25 MG tablet 25 mg PO TID PRN (Reason: Anxiety) Qty: 0 RF: 0 magnesium oxide 400 MG tablet 400 mg PO BEDTIME Qty: 0 RF: 0 albuterol sulfate [Proventil HFA] 90 MCG/PUFF HFA aerosol inhaler 2 puff INH Q4HP PRN (Reason: Shortness Of Breath) Qty: 0 RF: 0 duloxetine 60 MG capsule,delayed release(DR/EC) 60 mg PO DAILY Qty: 0 RF: 0 gabapentin [Neurontin] 300 MG capsule 600 mg PO TID Qty: 0 RF: 0 multivitamin [Multiple Vitamins] 1 EACH tablet 1 tab PO DAILY Qty: 0 RF: 0 zolpidem [Ambien] 10 MG tablet 10 mg PO HS PRN (Reason: Insomnia) Qty: 0 RF: 0 lorazepam 0.5 mg tablet 0.5 mg PO BID PRN (Reason: Anxiety) RF: 0 aspirin 81 mg tablet,chewable 81 mg PO DAILY RF: 0 hydrocodone-acetaminophen [[place]verde] 5-325 mg tablet 1 - 2 tab PO Q6H PRN (Reason: pain) RF: 0 methocarbamol 500 mg tablet 1,000 mg PO Q6H PRN (Reason: Muscle Spasm) RF: 0 prochlorperazine maleate 10 mg tablet 10 mg PO Q6H PRN (Reason: Nausea) RF: 0 Humulin N NPH Insulin KwikPen 100 unit/mL (3 mL) insulin pen 15 unit SUBCUT BID RF: 0 tizanidine 4 mg capsule 4 mg PO TID PRN (Reason: Nausea) RF: 0 amitriptyline 50 mg tablet 150 mg PO BEDTIME RF: 0 potassium chloride 20 mEq tablet,ER particles/crystals 20 meq PO QNOON RF: 0 lisinopril 10 mg tablet 10 mg PO DAILY RF: 0 omeprazole 20 mg capsule,delayed release(DR/EC) 20 mg PO DAILY RF: 0 ondansetron 4 mg tablet,disintegrating 1 tab Translingual Q6H PRN (Reason: Nausea) RF: 0 Probiotic 1 tab PO BID RF: 0 vitamin E 1 cap PO DAILY RF: 0 Referrals: Fadi Ko DO [Primary Care Provider] - ED Sign-out Cosign ED Attending Cosignature Attestation: I was immediately available in the department for consultation. This documentation has been reviewed and I agree with assessment and plan. Supervised by Lyle oRman DO
[2019-06-17 10:04] LABS: Add Manual Diff / Slide Review NO; Basophils Absolute Auto 100 /uL (0-100); Basophils Percent Auto 0.6 % (0-2); Eosinophils Absolute Auto 100 /uL (0-450); Eosinophils Percent Auto 0.5 % (2-4); Hematocrit 46.5 % (36-46); Hemoglobin 15.4 g/dL (12.0-16.0); Lymphocytes Absolute Auto 2400 /uL (1100-4500); Lymphocytes Percent Auto 19.6 % (25-40); Mean Corpuscular HGB Conc 33.2 % (30-36); Mean Corpuscular Hemoglobin 32.1 PG (26-34); Mean Corpuscular Volume 96.6 fL (80-100); Monocytes Absolute Auto 700 /uL (0-900); Monocytes Percent Auto 5.5 % (3-14); Neutrophils Absolute Auto 9100 /uL (1500-7000); Neutrophils Percent Auto 73.8 % (50-75); Platelet Count 352 X10^3/uL (150-400); Red Blood Cell Count 4.81 X10^6/uL (4.0-5.2); Red Cell Distribution Width 13.4 % (11.6-14.8); White Blood Cell Count 12.3 X10^3/uL (4.5-11.0)
[2019-06-17 10:10] LABS: Lactate (Lactic Acid) 2.2 mmol/L (0.7-2.1)
[2019-06-17 10:15] LABS: BUN Creatinine Ratio 32.4 (6-22); Blood Urea Nitrogen 23 mg/dL (7-17); Calcium 10.6 mg/dL (8.4-10.2); Carbon Dioxide 18 mmol/L (22-32); Chloride 107 mmol/L (98-107); Creatine Kinase 37 U/L (30-135); Estimated Glomerular Filt Rate > 60.0 mL/min (>60); Glucose 231 mg/dL (70-100); HEMOLYSIS 23 (0-50); Potassium 4.9 mmol/L (3.4-5.1); Sodium 138 mmol/L (137-145)
[2019-06-17 10:18] LABS: C-Reactive Protein Quant < 0.5 mg/dL (<1.0)
[2019-06-17 10:19] LABS: D Dimer < 200 ng/mL (<230)
[2019-06-17 10:24] LABS: Troponin I < 0.012 ng/mL (0.01-0.034)
[2019-06-17 10:27] LABS: Procalcitonin < 0.05 ng/mL (<0.5)
[2019-06-17 10:30] LABS: Influenza A - CEPHEID Flu A NEGATIVE (NEGATIVE); Influenza B - CEPHEID Flu B NEGATIVE (NEGATIVE)
[2019-06-17 10:32] LABS: Bacteria Urine Few (2-10); Culture Indicated Urine Specimen Cultured; Hyaline Casts Urine 1-5/LPF; RBC Urine 1-5/HPF (0-5/HPF); WBC Urine 10-30/HPF (0-5/HPF)
[2019-06-17 11:28] VITALS: BP 107/71; PULSE 83; RESP 16; O2SAT 97
[2019-06-17 12:00] LABS: Reflexed Lactate in 2 Hours Y
[2019-06-17 12:48] VITALS: BP 125/71; PULSE 84; RESP 16
[2019-06-17 13:02] LABS: Lactate 2HR (Lactic Acid Rflx) 1.3 mmol/L (0.7-2.1)
[2019-06-19 22:08] LABS: COVID19 Sendout Not Detected (Not Detected)
== END 2019-06-17 13:59 | disposition home or self-care (01) ==
PROVIDERS: Emergency Provider Emergency Medicine; PCP Family Medicine
DX: N10 Acute pyelonephritis (principal); R07.9 Chest pain, unspecified; I10 Essential (primary) hypertension; K21.9 Gastro-esophageal reflux disease without esophagitis; R05 Cough; R06.00 Dyspnea, unspecified
CPT/HCPCS: 36415; 71045; 80048; 81003; 81015; 82550; 83605; 84145; 84484; 85025; 85379; 86140; 87040; 87077; 87086; 87186; 87502; 87635; 93005; 96360; 96361; 99284

== ENCOUNTER 2019-06-22 16:25 | Emergency (ER) | payer OTHER, SELFPAY ==
[2019-06-22 16:33] VITALS: BP 133/78; PULSE 104; RESP 18; O2SAT 94
--- NOTE | 2019-06-22 16:38 | DI.RAD.S_ITS ---
PROCEDURE: XR SHOULDER LT MIN 2V INDICATIONS: fall TECHNIQUE: 4 views of the shoulder were acquired. COMPARISON: [facility], [place], XR SHOULDER LT MIN 2V, 05/30/2018, 15:45. [facility], [place], SHOULDER MINIMUM 2 VIEW LEFT, 02/05/2012, 16:04. FINDINGS: Bones: A transverse fracture involving the proximal humeral metaphysis is not well characterized on this examination and may be over riding. No dislocation or suspicious osseous lesion is identified. Soft tissues: No suspicious soft tissue calcifications. IMPRESSION: Proximal left humeral metaphyseal fracture. CT may be helpful for better characterization. Dictated by: Mikhail Carlin M.D. on 06/22/2019 at 16:28 Approved by: Mikhail Carlin M.D. on 06/22/2019 at 16:29
[2019-06-22 16:40] VITALS: BP 133/78; PULSE 104; RESP 18; O2SAT 94
--- NOTE | 2019-06-22 17:44 | ED.FALL ---
HPI - Fall General Chief Complaint: Fall Stated Complaint: GLF Time Seen by Provider: 06/22/19 17:41 Source: patient and EMS Mode of arrival: EMS History of Present Illness HPI Narrative: HPI: The patient is a 53-year-old female who appears much older than her stated age. She states that she was walking into the kitchen when she became lightheaded and went to sit down of slipped and fell landing on her left shoulder and arm. She immediately developed severe pain and discomfort in her left shoulder. She denies any loss of consciousness. She denies any significant headache neck pain or back pain. She denies that she has been drinking any alcohol. She denied any chest pain shortness of breath cough difficulty in breathing palpitations, incontinence of urine or stool nausea vomiting any recent diarrhea or urinary symptoms. She denies any recent fever chills or sweats. She was transported to the emergency department by EMS who placed her left shoulder arm in a sling. She was screaming and crying with pain and discomfort. She states that she is right-hand dominant. She denies a history of hepatitis, TB, HIV, any exposure to someone known to have copious virus 19, any recent travel within the last 6 months out of the country. She has had no new fever or development of a new cough. She has a chronic smoker's cough but none today. She admits to history of asthma hypertension and diabetes mellitus but denies a history of myocardial infarction. She smokes cigarettes on a daily basis drinks alcohol occasionally but does not use any drugs. Related Data Home Medications Medication Instructions Recorded Confirmed albuterol sulfate [Proventil HFA] 2 puff INH Q4HP PRN #0 01/08/13 10/04/18 hydroxyzine HCl 25 mg PO TID PRN #0 01/08/13 05/17/19 magnesium oxide 400 mg PO BEDTIME #0 tab 01/08/13 05/17/19 duloxetine 60 mg PO DAILY #0 07/04/17 05/17/19 gabapentin [Neurontin] 600 mg PO TID #0 07/04/17 05/17/19 multivitamin [Multiple Vitamins] 1 tab PO DAILY #0 07/04/17 10/04/18 zolpidem [Ambien] 10 mg PO HS PRN #0 07/04/17 05/17/19 Probiotic 1 tab PO BID 09/26/17 10/04/18 amitriptyline 150 mg PO BEDTIME 09/26/17 05/17/19 lisinopril 10 mg PO DAILY 09/26/17 05/17/19 omeprazole 20 mg PO DAILY 09/26/17 05/17/19 ondansetron 1 tab TRANSLINGUAL Q6H PRN 09/26/17 10/04/18 potassium chloride 20 meq PO QNOON 09/26/17 05/17/19 vitamin E 1 cap PO DAILY 09/26/17 09/26/17 lorazepam 0.5 mg PO BID PRN 05/30/18 05/17/19 aspirin 81 mg PO DAILY 06/13/18 10/04/18 hydrocodone-acetaminophen [[place]] 1 - 2 tab PO Q6H PRN 10/04/18 10/04/18 insulin NPH isoph U-100 human 15 unit SUBCUT BID 05/17/19 05/17/19 [Humulin N NPH Insulin KwikPen] methocarbamol 1,000 mg PO Q6H PRN 05/17/19 05/17/19 prochlorperazine maleate 10 mg PO Q6H PRN 05/17/19 05/17/19 tizanidine 4 mg PO TID PRN 05/17/19 05/17/19 Previous Rx's Medication Instructions Recorded ciprofloxacin HCl 500 mg PO BID #20 tab 06/17/19 cyclobenzaprine 10 mg PO TID PRN #15 tab 06/22/19 oxycodone-acetaminophen [Percocet] 1 tab PO Q6H PRN #12 tab 06/22/19 Allergies Allergy/AdvReac Type Severity Reaction Status Date / Time mupirocin Allergy Unknown Verified 06/22/19 16:48 naproxen Allergy Unknown Verified 06/22/19 16:48 Penicillins Allergy Unknown SINCE Verified 06/22/19 16:48 CHILDHOOD droperidol AdvReac Unknown Verified 06/22/19 16:48 fenofibrate [FENOFIBRATE] AdvReac Unknown Verified 06/22/19 16:48 ibuprofen AdvReac Unknown NAUSEA Verified 06/22/19 16:48 metformin [METFORMIN] AdvReac Unknown Verified 06/22/19 16:48 metoclopramide AdvReac Unknown BECAME Verified 06/22/19 16:48 JITTERY AND ANXIOUS nitrofurantoin AdvReac Unknown NAUSEA Verified 06/22/19 16:48 Review of Systems Review of Systems Narrative: Review of systems were all negative except for those mentioned in the history of present illness. Patient History Medical History Anxiety (Chronic) Endometriosis (Chronic) Fibromyalgia (Chronic) Heart palpitations (Chronic) History of asthma (Chronic) History of chronic hypertension (Chronic) History of COPD (Chronic) History of depression (Chronic) History of gastrointestinal ulcer (Chronic) History of kidney stones (Chronic) History of migraine (Chronic) History of panic attacks (Chronic) History of type 2 diabetes mellitus (Chronic) Interstitial cystitis (Chronic) Port-a-cath in place (Chronic) UTI (urinary tract infection) (Chronic) Surgical History S/P appendectomy (Resolved) Status post hysterectomy (Resolved) Family History Other Family history non-contributory Social History Smoking Status: Current every day smoker Smoking Status: Current every day smoker alcohol intake frequency: a few times a week Substance Use Type: former substance user and marijuana Exam Narrative Exam Narrative: PHYSICAL EXAM: CONSTITUTIONAL: Awake, Alert, Oriented, lying supine in bed crying and screaming with pain and discomfort in her left shoulder. HEAD: AT/NC EENT: PERRL, FROM of eyes, no discharge, Tympanic membranes are intact without any evidence of hemotympanum. No epistaxis or nasal drainage Oral mucosa is moist and pink, posterior pharynx is without erythema or exudate. NECK: Supple, no obvious JVD, Trachea is midline without stridor, no palpable LN or masses. SPINE: No gross deformity, no palpable tenderness of the cervical, spine. THORAX: No deformity, retractions, chest wall tenderness. Increased AP diameter. LUNGS: The patient has decreased breath sounds bilaterally that are clear and symmetrical without wheezes rhonchi or rales HEART: Normal heart tones, regular rhythm and rate without murmur. ABDOMEN: Soft, non-tender, without guarding, rebound, rigidity or palpable mass . EXTREMITIES: The patient's left arm is in a sling. The patient's has no tenderness or deformity of the left clavicle, the shoulder fossa is full with a palpable head of the left humerus that is exquisitely tender. The patient has no tenderness to palpation over the arm left elbow or forearm. She is able to flex extend and abduct and adduct her fingers with good capillary refill and radial pulses. Sensation is intact. SKIN: No rash, bruising, petechiae or purpura. NEURO: Awake, alert, oriented, crying complaining of persistent pain in her arm left shoulder., cranial nerves II-XII are symmetrical and normal, moves all 4 extremities. Initial Vital Signs Initial Vital Signs: Vital Signs Pulse Rate 104 H 06/22/19 16:33 Respiratory Rate 18 06/22/19 16:33 Blood Pressure 133/78 06/22/19 16:33 Pulse Oximetry 94 06/22/19 16:33 Course Course Course Narrative: 174: Review the patient's x-ray reveals that she has a proximal left humeral metaphyseal fracture. CT may be help with the better characterize the patient. She does not have a dislocation she has a fracture of the head of the humerus. 4 mg of morphine sulfate have been ordered for the patient. 1904: The CT of the patient's shoulder and humerus reveals a comminuted overriding fracture involving the surgical neck and greater tuberosity of the left humerus arm. I will call and discuss the patient with Dr. Guerra, Orthopedic Surgery Orders Ordered: Discontinued Medications Lorazepam (Ativan) 1 mg IV NOW ONE Stop: 06/22/19 18:46 Last Admin: 06/22/19 18:54 Dose: 1 mg Documented by: GANESH Morphine Sulfate (Morphine) 4 mg IV NOW ONE Stop: 06/22/19 17:46 Last Admin: 06/22/19 17:48 Dose: 4 mg Documented by: JNTERE Morphine Sulfate (Morphine) 4 mg IV NOW ONE Stop: 06/22/19 19:55 Last Admin: 06/22/19 20:00 Dose: 4 mg Documented by: SHAWN Vital Signs Vital signs: Vital Signs - 8 hr 06/22/19 16:33 06/22/19 16:40 06/22/19 20:17 Pulse Rate 104 H 104 H 111 H Respiratory Rate 18 18 23 Blood Pressure 133/78 Blood Pressure [Right Arm] 133/78 135/81 Pulse Oximetry 94 94 96 MDM - Fall Medical Records Attestation: I reviewed the patient's medical records. ECG Data Attestation: I personally reviewed and interpreted this ECG as follows: Interpretation: The patient's EKG obtained on June 21 at 16:4 1:10 a.m. reveals a normal sinus rhythm with a ventricular rate of 100. QTC is borderline elevated at 454 milliseconds. [place] is normal. There are no acute diagnostic ST segment changes. The patient has a Q-wave in lead V1 small R-waves in V2 and a small R-wave in V2 and V3. The patient has inverted T-waves in V1 and V2 suggestive of an old septal infarct age indeterminate. There are no other acute diagnostic ST segment changes. Discharge Plan Departure Patient Disposition: Home Clinical Impression: Fracture, humerus closed Qualifiers: Encounter type: initial encounter Humerus Location: proximal Fracture morphology: unspecified fracture morphology Laterality: left Qualified Code(s): S42.202A - Unspecified fracture of upper end of left humerus, initial encounter for closed fracture Discharge Date/Time: 06/22/19 21:00 Instructions: DI for Shoulder Fracture Activity Restrictions/Additional Instructions: 1. Call Dr. Guerra's Office on Tuesday for follow up for your fracture 2. Take the percocet for pain 3. Take the cyclobenzaprine for muscle spasms. 4. Apply ice cold compresses every 2 hours for 20-30 minutes to the shoulder. Prescriptions: New oxycodone-acetaminophen [Percocet] 7.5-325 mg tablet 1 tab PO Q6H PRN (Reason: pain) Qty: 12 RF: 0 cyclobenzaprine 10 mg tablet 10 mg PO TID PRN (Reason: muscle spasm) Qty: 15 RF: 0 No Action hydroxyzine HCl 25 MG tablet 25 mg PO TID PRN (Reason: Anxiety) Qty: 0 RF: 0 magnesium oxide 400 MG tablet 400 mg PO BEDTIME Qty: 0 RF: 0 albuterol sulfate [Proventil HFA] 90 MCG/PUFF HFA aerosol inhaler 2 puff INH Q4HP PRN (Reason: Shortness Of Breath) Qty: 0 RF: 0 duloxetine 60 MG capsule,delayed release(DR/EC) 60 mg PO DAILY Qty: 0 RF: 0 gabapentin [Neurontin] 300 MG capsule 600 mg PO TID Qty: 0 RF: 0 multivitamin [Multiple Vitamins] 1 EACH tablet 1 tab PO DAILY Qty: 0 RF: 0 zolpidem [Ambien] 10 MG tablet 10 mg PO HS PRN (Reason: Insomnia) Qty: 0 RF: 0 lorazepam 0.5 mg tablet 0.5 mg PO BID PRN (Reason: Anxiety) RF: 0 aspirin 81 mg tablet,chewable 81 mg PO DAILY RF: 0 hydrocodone-acetaminophen [[place]] 5-325 mg tablet 1 - 2 tab PO Q6H PRN (Reason: pain) RF: 0 methocarbamol 500 mg tablet 1,000 mg PO Q6H PRN (Reason: Muscle Spasm) RF: 0 prochlorperazine maleate 10 mg tablet 10 mg PO Q6H PRN (Reason: Nausea) RF: 0 Humulin N NPH Insulin KwikPen 100 unit/mL (3 mL) insulin pen 15 unit SUBCUT BID RF: 0 tizanidine 4 mg capsule 4 mg PO TID PRN (Reason: Nausea) RF: 0 amitriptyline 50 mg tablet 150 mg PO BEDTIME RF: 0 potassium chloride 20 mEq tablet,ER particles/crystals 20 meq PO QNOON RF: 0 lisinopril 10 mg tablet 10 mg PO DAILY RF: 0 omeprazole 20 mg capsule,delayed release(DR/EC) 20 mg PO DAILY RF: 0 ondansetron 4 mg tablet,disintegrating 1 tab Translingual Q6H PRN (Reason: Nausea) RF: 0 Probiotic 1 tab PO BID RF: 0 vitamin E 1 cap PO DAILY RF: 0 ciprofloxacin HCl 500 mg tablet 500 mg PO BID Qty: 20 RF: 0 Referrals: Wu Guerra MD [Physician] - Fadi Ko DO [Primary Care Provider] -
[2019-06-22] MEDS: MORPHINE 4 MG/ML INJ IV ×2 (17:48→20:00)
--- NOTE | 2019-06-22 18:05 | DI.CT.S_ITS ---
PROCEDURE: CT UE LT WO CON INDICATIONS: LEFT SHOULDER PAIN POST FALL TECHNIQUE: Noncontrast 1-1.5 mm thick sections acquired from the acromioclavicular joint to the inferior scapula, with coronal and sagittal reformatting. COMPARISON: [facility], CR, XR SHOULDER LT MIN 2V, 06/22/2019, 16:48. FINDINGS: Image quality: Excellent. Bones: Comminuted fracture involving the surgical neck of the humerus, and greater tuberosity. There is overriding appearance of the surgical neck, and posterior angulation of the distal fracture fragments. There is internal rotation of the humerus, although no definite dislocation noted. Soft tissues: Associated soft tissue swelling and joint effusion. The visualized left upper lobe demonstrates scattered pleural blebs and scarring/atelectasis. IMPRESSION: Comminuted overriding fracture involving the surgical neck and greater tuberosity of the left humerus. Associated glenohumeral joint effusion. Dictated by: Garrett Ferreira M.D. on 06/22/2019 at 18:53 Approved by: Garrett Ferreira M.D. on 06/22/2019 at 18:57
[2019-06-22] MEDS: LORazepam 2 MG/ML INJ 1 MG IV (18:54)
[2019-06-22 20:17] VITALS: BP 135/81; PULSE 111; RESP 23; O2SAT 96
== END 2019-06-22 21:00 | disposition home or self-care (01) ==
PROVIDERS: Emergency Provider Emergency Medicine; PCP Family Medicine
DX: S42.202A Unspecified fracture of upper end of left humerus, initial encounter for closed fracture (principal); W01.0XXA Fall on same level from slipping, tripping and stumbling without subsequent striking against object, initial encounter
CPT/HCPCS: 73030; 73200; 93005; 96374; 96375; 96376; 99284; J2060; J2270

== ENCOUNTER 2019-06-23 11:19 | Emergency (ER) | payer OTHER, SELFPAY ==
[2019-06-23 11:25] VITALS: BP 131/87; PULSE 112; RESP 20; TEMP 36.8; O2SAT 98; BMI 18.2
--- NOTE | 2019-06-23 12:09 | ED.UPPEXIN ---
HPI - Extremity Injury (Upper) <YASMANI Peng - Last Filed: 06/23/19 22:51> General Chief Complaint: Extremity Injury, Upper Stated Complaint: here last night, upper arm fracture, pain Time Seen by Provider: 06/23/19 11:57 Source: patient and family Mode of arrival: Wheelchair Limitations: no limitations History of Present Illness HPI narrative: This is a 53-year-old female, smoker, who presents to ED with her spouse with chief complain of left arm pain. Patient was seen in [facility] Emergency room yesterday, evaluated and diagnosed with left humerus fracture and discharged to home with Percocet 7.5 mg-325 mg and cyclobenzaprine 10 mg as needed does. Patient is to call orthopedic office on Tuesday to follow up with her fracture. According to her [facility] patient's lab through most of the night last night after she was discharged to home and when she woke up this morning she was in severe pain and was medicated with Percocet and cyclobenzaprine at 10:00 a.m. which has not effective in managing her pain. Patient reports intact sensation, patient reports able to move her fingers. Patient moans in crying due to pain at this time. Patient right dominant hand. Patient is currently taking 2 types of antibiotic medication Cipro and doxycycline for kidney infection. Patient also has history of asthma, hypertension, diabetes. Related Data Home Medications Medication Instructions Recorded Confirmed albuterol sulfate [Proventil HFA] 2 puff INH Q4HP PRN #0 01/08/13 10/04/18 hydroxyzine HCl 25 mg PO TID PRN #0 01/08/13 05/17/19 magnesium oxide 400 mg PO BEDTIME #0 tab 01/08/13 05/17/19 duloxetine 60 mg PO DAILY #0 07/04/17 05/17/19 gabapentin [Neurontin] 600 mg PO TID #0 07/04/17 05/17/19 multivitamin [Multiple Vitamins] 1 tab PO DAILY #0 07/04/17 10/04/18 zolpidem [Ambien] 10 mg PO HS PRN #0 07/04/17 05/17/19 Probiotic 1 tab PO BID 09/26/17 10/04/18 amitriptyline 150 mg PO BEDTIME 09/26/17 05/17/19 lisinopril 10 mg PO DAILY 09/26/17 05/17/19 omeprazole 20 mg PO DAILY 09/26/17 05/17/19 ondansetron 1 tab TRANSLINGUAL Q6H PRN 09/26/17 10/04/18 potassium chloride 20 meq PO QNOON 09/26/17 05/17/19 vitamin E 1 cap PO DAILY 09/26/17 09/26/17 lorazepam 0.5 mg PO BID PRN 05/30/18 05/17/19 aspirin 81 mg PO DAILY 06/13/18 10/04/18 hydrocodone-acetaminophen [Minburn] 1 - 2 tab PO Q6H PRN 10/04/18 10/04/18 insulin NPH isoph U-100 human 15 unit SUBCUT BID 05/17/19 05/17/19 [Humulin N NPH Insulin KwikPen] methocarbamol 1,000 mg PO Q6H PRN 05/17/19 05/17/19 prochlorperazine maleate 10 mg PO Q6H PRN 05/17/19 05/17/19 tizanidine 4 mg PO TID PRN 05/17/19 05/17/19 Previous Rx's Medication Instructions Recorded ciprofloxacin HCl 500 mg PO BID #20 tab 06/17/19 cyclobenzaprine 10 mg PO TID PRN #15 tab 06/22/19 oxycodone-acetaminophen [Percocet] 1 tab PO Q6H PRN #12 tab 06/22/19 oxycodone-acetaminophen [Percocet] 1 tab PO .Q6-8hrs PRN #10 tab 06/23/19 tramadol 50 mg PO Q8H PRN #10 tab 06/23/19 Allergies Allergy/AdvReac Type Severity Reaction Status Date / Time mupirocin Allergy Unknown Verified 06/23/19 11:33 naproxen Allergy Unknown Verified 06/23/19 11:33 Penicillins Allergy Unknown SINCE Verified 06/23/19 11:33 CHILDHOOD droperidol AdvReac Unknown Verified 06/23/19 11:33 fenofibrate [FENOFIBRATE] AdvReac Unknown Verified 06/23/19 11:33 ibuprofen AdvReac Unknown NAUSEA Verified 06/23/19 11:33 metformin [METFORMIN] AdvReac Unknown Verified 06/23/19 11:33 metoclopramide AdvReac Unknown BECAME Verified 06/23/19 11:33 JITTERY AND ANXIOUS nitrofurantoin AdvReac Unknown NAUSEA Verified 06/23/19 11:33 Review of Systems <YASMANI Peng - Last Filed: 06/23/19 22:51> Review of Systems Narrative: General: Denies fever, chills, fatigue, malaise, sweats. HEENT: Denies sinus pain, ear pain, sore throat, difficulty swallowing, dizziness. Respiratory: Denies dyspnea, cough, wheezing, hemoptysis, sputum. Cardiovascular: Denies chest pain, palpitations, orthopnea, edema. Gastrointestinal: Denies nausea, vomiting, abdominal pain, diarrhea, constipation, melena. : Denies dysuria, frequency, incontinence, hematuria, urinary retention. Musculoskeletal: See HPI Skin: Denies rash, skin lesions, or other. Neurologic: Denies weakness, headache, numbness, change in speech, confusion, seizures, incoordination. Patient History <YASMANI Peng - Last Filed: 06/23/19 22:51> Medical History Anxiety (Chronic) Endometriosis (Chronic) Fibromyalgia (Chronic) Heart palpitations (Chronic) History of asthma (Chronic) History of chronic hypertension (Chronic) History of COPD (Chronic) History of depression (Chronic) History of gastrointestinal ulcer (Chronic) History of kidney stones (Chronic) History of migraine (Chronic) History of panic attacks (Chronic) History of type 2 diabetes mellitus (Chronic) Interstitial cystitis (Chronic) Port-a-cath in place (Chronic) UTI (urinary tract infection) (Chronic) Surgical History S/P appendectomy (Resolved) Status post hysterectomy (Resolved) Family History Other Family history non-contributory Social History Smoking Status: Current every day smoker Smoking Status: Current every day smoker alcohol intake frequency: a few times a week Substance Use Type: former substance user and marijuana Exam <YASMANI Peng - Last Filed: 06/23/19 22:51> Narrative Exam Narrative: General appearance: Appears to be older than her stated age and in appearance. Patient appears to be in discomfort as evidenced by moaning and crying. Head: normocephalic, atraumatic, no scalp lesions, non-tender. ENT: Hearing grossly intact. Nose without bleeding, purulent discharge, septal hematoma. Mucous membrane moist, no mucosal lesion, edentulos. Throat without erythema, tonsillar hypertrophy or exudate. Uvula in midline, airway patent. Neck/Thyroid: neck supple, full range of motion, no visible masses or meningeal signs. No JVD, non-tender without lymphadenopathy. Skin: no suspicious rashes, lesions over visible areas. Warm and dry and appropriate color for ethnicity. Heart: no clubbing, no cyanosis, no edema. S1 and S2 normal. RRR w/o murmurs, clicks, or bruits. Lungs: Breathing even and unlabored. No stridor. No accessory muscles used. Able to speak in full sentences. Chest: normal shape and expansion. Abdomen: non-obese, non-distended. Neurologic: alert and oriented. Cognitive exam, [employer]ER and PNS grossly intact on informal exam. Psych: good eye contact, normal affect. Initial Vital Signs Initial Vital Signs: Vital Signs Temperature 98.2 F 06/23/19 11:25 Pulse Rate 112 H 06/23/19 11:25 Respiratory Rate 20 06/23/19 11:25 Blood Pressure 131/87 06/23/19 11:25 Pulse Oximetry 98 06/23/19 11:25 Extrem Left upper extremity: edema (Left upper arm) and hand Details: normal to inspection, normal capillary refill, neuromotor exam normal, neurosensory exam normal, vascular exam Details: radial pulse present, normal ROM of fingers and no swelling; no tenderness <Sterling Bridges MD - Last Filed: 06/24/19 19:23> Initial Vital Signs Initial Vital Signs: Vital Signs Temperature 98.2 F 06/23/19 11:25 Pulse Rate 112 H 06/23/19 11:25 Respiratory Rate 20 06/23/19 11:25 Blood Pressure 131/87 06/23/19 11:25 Pulse Oximetry 98 06/23/19 11:25 Scores <YASMANI Peng - Last Filed: 06/23/19 22:51> GCS Eva coma scale eye opening: Spontaneous Eva coma scale verbal response: Orientated [place] coma scale motor response: Obey commands [place] coma scale total score: 15 Course <YASMANI Peng - Last Filed: 06/23/19 22:51> Orders Ordered: Discontinued Medications Hydromorphone HCl (Dilaudid) 1 mg IM NOW ONE Stop: 06/23/19 12:09 Last Admin: 06/23/19 12:13 Dose: 1 mg Documented by: DANY Oxycodone/Acetaminophen (Percocet 5/325) 1 tab PO NOW ONE Stop: 06/23/19 13:57 Last Admin: 06/23/19 14:04 Dose: 1 tab Documented by: DANY Tramadol HCl (Ultram) 50 mg PO NOW ONE Stop: 06/23/19 13:57 Last Admin: 06/23/19 14:05 Dose: 50 mg Documented by: DANY Vital Signs Vital signs: Vital Signs - 8 hr 06/23/19 11:25 Temperature 98.2 F Pulse Rate 112 H Respiratory Rate 20 Blood Pressure 131/87 Pulse Oximetry 98 <Sterling Bridges MD - Last Filed: 06/24/19 19:23> Orders Ordered: Discontinued Medications Hydromorphone HCl (Dilaudid) 1 mg IM NOW ONE Stop: 06/23/19 12:09 Last Admin: 06/23/19 12:13 Dose: 1 mg Documented by: DANY Oxycodone/Acetaminophen (Percocet 5/325) 1 tab PO NOW ONE Stop: 06/23/19 13:57 Last Admin: 06/23/19 14:04 Dose: 1 tab Documented by: DANY Tramadol HCl (Ultram) 50 mg PO NOW ONE Stop: 06/23/19 13:57 Last Admin: 06/23/19 14:05 Dose: 50 mg Documented by: DANY Vital Signs Vital signs: Vital Signs - 8 hr 06/23/19 11:25 Temperature 98.2 F Pulse Rate 112 H Respiratory Rate 20 Blood Pressure 131/87 Pulse Oximetry 98 MDM - Extremity Injury (Upper) <YASMANI Peng - Last Filed: 06/23/19 22:51> Differential Diagnosis Differential diagnosis: Likely fracture of humerus Medical Records Attestation: I reviewed the patient's medical records. [facility] Narrative Medical decision making narrative: This is a 53-year-old female who presents to ED with spouse with chief complain of severe pain on her left upper arm. She she was diagnosed comminuted overriding fracture in surgical neck and greater tuberosity of left humerus last night and discharged to home with pain medication. According to spouse, patient slept relatively well last night but this morning when she woke up pain was so severe even with 2 tabs of Percocet 7.5/325 mg. patient has intact sensation, radial pulse, mobility to her fingers. There is some swelling to left upper arm. Patient has been using sling on affected arm as splint. Patient provided with IM injection of Dilaudid which helped her symptoms. We discussed to add tramadol in addition to Percocet. We discussed that to limit Percocet used to 1 tab and to use tramadol up to 3 times a day as needed with narcotic medication precautions such as sedation, respiratory depression, drowsiness. Patient and spouse advised not to use at the same time with lorazepam, Ambien, Flexeril when patient is taking tramadol and Percocet to minimize respiratory depression. Patient and spouse verbalized understanding. Advised to follow up with [facility] the orthopedics on Tuesday. Return precautions were discussed with patient and spouse and in agreement with the treatment plan. Discharge Plan Departure Patient Disposition: Home Clinical Impression: Closed fracture of left humerus Qualifiers: Encounter type: subsequent encounter Humerus Location: surgical neck Fracture morphology: unspecified fracture morphology Fracture alignment: nondisplaced Fracture healing: with malunion Qualified Code(s): S42.215P - Unspecified nondisplaced fracture of surgical neck of left humerus, subsequent encounter for fracture with malunion Arm pain Qualifiers: Laterality: left Qualified Code(s): M79.602 - Pain in left arm Discharge Date/Time: 06/23/19 14:12 Instructions: DI for Humeral Fracture Activity Restrictions/Additional Instructions: You have been diagnosed with [known left humeral surgical neck and greater tuberosity comminuted fracture and pain on left arm]. What to do: *Take your medications as directed. You were medicated with IM injection of Dilaudid while in ED which helped with her pain. Please take Percocet 1 tab at a time every 6-8 hours as needed for discomfort and in addition you can add tramadol 50 mg up to 3 times a day as needed for discomfort. This medication will cause drowsiness so please be careful not to fall, not to operate heavy equipments or drive. Do not drink alcohol with this. It can cause constipation so please take measures. [facility] *Follow up with your primary care provider in 2-3 days, call for an appointment. Please follow-up up with [facility] orthopedist on Tuesday by calling them. Let them know you were seen in the ED and that we asked you to be seen in follow up. *Return to ED if you have any new, worsening, or concerning symptoms, such as [chest pain, breathing difficulty, unable to tolerate fluids, tingling/numbness/weakness to affected arm, fever or any acute concerns]. Prescriptions: New oxycodone-acetaminophen [Percocet] 7.5-325 mg tablet 1 tab PO .Q6-8hrs PRN (Reason: pain) Qty: 10 RF: 0 tramadol 50 mg tablet 50 mg PO Q8H PRN (Reason: pain) Qty: 10 RF: 0 No Action hydroxyzine HCl 25 MG tablet 25 mg PO TID PRN (Reason: Anxiety) Qty: 0 RF: 0 magnesium oxide 400 MG tablet 400 mg PO BEDTIME Qty: 0 RF: 0 albuterol sulfate [Proventil HFA] 90 MCG/PUFF HFA aerosol inhaler 2 puff INH Q4HP PRN (Reason: Shortness Of Breath) Qty: 0 RF: 0 duloxetine 60 MG capsule,delayed release(DR/EC) 60 mg PO DAILY Qty: 0 RF: 0 gabapentin [Neurontin] 300 MG capsule 600 mg PO TID Qty: 0 RF: 0 multivitamin [Multiple Vitamins] 1 EACH tablet 1 tab PO DAILY Qty: 0 RF: 0 zolpidem [Ambien] 10 MG tablet 10 mg PO HS PRN (Reason: Insomnia) Qty: 0 RF: 0 lorazepam 0.5 mg tablet 0.5 mg PO BID PRN (Reason: Anxiety) RF: 0 aspirin 81 mg tablet,chewable 81 mg PO DAILY RF: 0 hydrocodone-acetaminophen [Minburn] 5-325 mg tablet 1 - 2 tab PO Q6H PRN (Reason: pain) RF: 0 methocarbamol 500 mg tablet 1,000 mg PO Q6H PRN (Reason: Muscle Spasm) RF: 0 prochlorperazine maleate 10 mg tablet 10 mg PO Q6H PRN (Reason: Nausea) RF: 0 Humulin N NPH Insulin KwikPen 100 unit/mL (3 mL) insulin pen 15 unit SUBCUT BID RF: 0 tizanidine 4 mg capsule 4 mg PO TID PRN (Reason: Nausea) RF: 0 oxycodone-acetaminophen [Percocet] 7.5-325 mg tablet 1 tab PO Q6H PRN (Reason: pain) Qty: 12 RF: 0 cyclobenzaprine 10 mg tablet 10 mg PO TID PRN (Reason: muscle spasm) Qty: 15 RF: 0 amitriptyline 50 mg tablet 150 mg PO BEDTIME RF: 0 potassium chloride 20 mEq tablet,ER particles/crystals 20 meq PO QNOON RF: 0 lisinopril 10 mg tablet 10 mg PO DAILY RF: 0 omeprazole 20 mg capsule,delayed release(DR/EC) 20 mg PO DAILY RF: 0 ondansetron 4 mg tablet,disintegrating 1 tab Translingual Q6H PRN (Reason: Nausea) RF: 0 Probiotic 1 tab PO BID RF: 0 vitamin E 1 cap PO DAILY RF: 0 ciprofloxacin HCl 500 mg tablet 500 mg PO BID Qty: 20 RF: 0 Referrals: Fadi Ko DO [Primary Care Provider] -
[2019-06-23] MEDS: HYDROMORPHONE 1 MG INJ IM (12:13)
[2019-06-23 13:18] VITALS: BP 112/70; PULSE 99; RESP 18; O2SAT 98
[2019-06-23] MEDS: OXYCODONE/ACETAMINOPHEN 5/325 TABLET 1 TAB PO (14:04)
[2019-06-23] MEDS: TRAMADOL 50 MG TABLET PO (14:05)
== END 2019-06-23 14:12 | disposition home or self-care (01) ==
PROVIDERS: Emergency Provider Nurse Practitioner Family; PCP Family Medicine
DX: S42.215 Unspecified nondisplaced fracture of surgical neck of left humerus (principal); M79.602 Pain in left arm
CPT/HCPCS: 96372; 99283; 99284; J1170

== ENCOUNTER 2019-06-26 11:49 | Emergency (ER) | payer OTHER, SELFPAY ==
[2019-06-26] VITALS (17 sets, daily range): BP systolic 81–131; BP diastolic 51–73; PULSE 88–102; RESP 15–29; TEMP 35.5–36.7; O2SAT 91–100
--- NOTE | 2019-06-26 12:01 | ED_ITS ---
HPI - General Adult General Chief complaint: Altered Mental Status Stated complaint: Altered Mental Status Time Seen by Provider: 06/26/19 12:01 History of Present Illness HPI narrative: 53-year-old woman with complex medical history who fell on June 21 and sustained a left humeral head fracture she was seen again on June 22 with increased pain. She followed up yesterday with her orthopedic physician and was told all was healing appropriately. She was apparently found down on the floor of her home and when medics arrived initial blood pressure was in the 50s. She is distraught and unable to participate with additional history upon arrival. Her is available and offers additional history. Seen 06/16 and dx with a pyelonephritis and treated with ciprofloxacin. Cultures from urine on that day grew out Enterococcus 2 different sub species both of which were sensitive to ampicillin so should respond nicely to the Zosyn that she was empirically treated with with today's visit She has been having syncopal episodes, one of which resulted in the fracture mentioned above. Her does note that her blood sugars have not been particularly erratic to suggest a worsening infection. He also notes that she has had very little oral intake after the fractured arm due to pain issues. Related Data Home Medications Medication Instructions Recorded Confirmed albuterol sulfate [Proventil HFA] 2 puff INH Q4HP PRN #0 01/08/13 10/04/18 hydroxyzine HCl 25 mg PO TID PRN #0 01/08/13 05/17/19 magnesium oxide 400 mg PO BEDTIME #0 tab 01/08/13 05/17/19 duloxetine 60 mg PO DAILY #0 07/04/17 05/17/19 gabapentin [Neurontin] 600 mg PO TID #0 07/04/17 05/17/19 multivitamin [Multiple Vitamins] 1 tab PO DAILY #0 07/04/17 10/04/18 zolpidem [Ambien] 10 mg PO HS PRN #0 07/04/17 05/17/19 Probiotic 1 tab PO BID 09/26/17 10/04/18 amitriptyline 150 mg PO BEDTIME 09/26/17 05/17/19 lisinopril 10 mg PO DAILY 09/26/17 05/17/19 omeprazole 20 mg PO DAILY 09/26/17 05/17/19 ondansetron 1 tab TRANSLINGUAL Q6H PRN 09/26/17 10/04/18 potassium chloride 20 meq PO QNOON 09/26/17 05/17/19 vitamin E 1 cap PO DAILY 09/26/17 09/26/17 lorazepam 0.5 mg PO BID PRN 05/30/18 05/17/19 aspirin 81 mg PO DAILY 06/13/18 10/04/18 hydrocodone-acetaminophen [[place]] 1 - 2 tab PO Q6H PRN 10/04/18 10/04/18 insulin NPH isoph U-100 human 15 unit SUBCUT BID 05/17/19 05/17/19 [Humulin N NPH Insulin KwikPen] methocarbamol 1,000 mg PO Q6H PRN 05/17/19 05/17/19 prochlorperazine maleate 10 mg PO Q6H PRN 05/17/19 05/17/19 tizanidine 4 mg PO TID PRN 05/17/19 05/17/19 Previous Rx's Medication Instructions Recorded ciprofloxacin HCl 500 mg PO BID #20 tab 06/17/19 cyclobenzaprine 10 mg PO TID PRN #15 tab 06/22/19 oxycodone-acetaminophen [Percocet] 1 tab PO Q6H PRN #12 tab 06/22/19 oxycodone-acetaminophen [Percocet] 1 tab PO .Q6-8hrs PRN #10 tab 06/23/19 tramadol 50 mg PO Q8H PRN #10 tab 06/23/19 Allergies Allergy/AdvReac Type Severity Reaction Status Date / Time mupirocin Allergy Unknown Verified 06/23/19 11:33 naproxen Allergy Unknown Verified 06/23/19 11:33 Penicillins Allergy Unknown SINCE Verified 06/23/19 11:33 CHILDHOOD droperidol AdvReac Unknown Verified 06/23/19 11:33 fenofibrate [FENOFIBRATE] AdvReac Unknown Verified 06/23/19 11:33 ibuprofen AdvReac Unknown NAUSEA Verified 06/23/19 11:33 metformin [METFORMIN] AdvReac Unknown Verified 06/23/19 11:33 metoclopramide AdvReac Unknown BECAME Verified 06/23/19 11:33 JITTERY AND ANXIOUS nitrofurantoin AdvReac Unknown NAUSEA Verified 06/23/19 11:33 Review of Systems Review of Systems ROS Unobtainable: Unobtainable due to mental status/LOC Patient History Medical History (Updated 06/26/19 @ 16:10 by Carolina Bonilla MD) Anxiety (Chronic) Closed fracture of left humerus (Inactive) Endometriosis (Chronic) Fibromyalgia (Chronic) Heart palpitations (Chronic) History of asthma (Chronic) History of chronic hypertension (Chronic) History of COPD (Chronic) History of depression (Chronic) History of gastrointestinal ulcer (Chronic) History of kidney stones (Chronic) History of migraine (Chronic) History of panic attacks (Chronic) History of type 2 diabetes mellitus (Chronic) Interstitial cystitis (Chronic) UTI (urinary tract infection) (Chronic) Surgical History (Updated 06/26/19 @ 13:07 by Carolina Bonilla MD) History of urostomy (Acute) S/P appendectomy (Resolved) Status post hysterectomy (Resolved) Family History Other Family history non-contributory Social History Smoking Status: Current every day smoker Smoking Status: Current every day smoker alcohol intake frequency: a few times a week Substance Use Type: former substance user and marijuana Exam Narrative Exam Narrative: General: Cachectic woman dramatic affect of behavior, able to speak in full sentences no respiratory distress complaining of severe pain secondary to broken arm HEENT: Dry mucous membranes Neck: Supple, no jugular venous distension, no cervical adenopathy, no nuchal rigidity Respiratory: Mild scattered wheeze that is quite minimal, no retractions, no consolidated findings Chest: No subcu emphysema, no contusions and no point tenderness to suggest new rib fractures Cardiac: Tachycardic, regular, no murmurs Abdomen: Urostomy site clean and well perfused, no abdominal pain on palpation, normal bowel tones no flank pain Skin: Pale, multiple old scars, careful exam reveals no evidence of cellulitis Neurologic: Dramatic behaviors but does calm and is able to be redirected, able to focus answer questions and is alert and oriented to person time and place Extremities: Left upper extremity with edema and healing bruising around the shoulder and proximal humerus consistent with previous fracture approximately 6 6 days ago Psych: Overall poor inside, directable, once calm speech fluency is appropriate Lower extremities: Well-healed multiple superficial scars with no edema, well perfused no lesions of concern to suggested developing cellulitis were source for her sepsis Initial Vital Signs Initial Vital Signs: Vital Signs Pulse Rate 97 H 06/26/19 12:00 Blood Pressure 97/53 L 06/26/19 12:00 Pulse Oximetry 97 06/26/19 12:00 Procedures Central Line Placement Right IJ: Time Out Performed: Yes Patient Placed on Monitor/Pulse Ox: Yes MD Prep: mask, gown and gloves Central Line Prep: Chlorhexidine scrub Local Anesthetic: lidocaine 1% Amount of anesthesia used (mL): 3 Ultrasound Used for Placement: Yes Central Line Lumen Inserted: triple Post Procedure: sutured in place, good blood return, all ports aspirated, flushed, capped and sterile dressing applied Post Procedure X-Ray: tip of catheter in good position and no pneumothorax seen Patient Tolerated Procedure: Well Complications: none Misc Procedure Name of Procedure: Critical Care Time [34] minutes: Critical care time is separate from other billable procedures. This critical care time includes consultation with family and other consulting doctors, review of records, and interpretation of data from labs, EKGs and imaging as well as managements of altered mental status, severe pain, severe sepsis and hemodynamic compromise Course Orders Ordered: ED Orders 06/26/19 12:04 XR chest 1V Stat 06/26/19 12:06 EKG-12 Lead Stat 06/26/19 12:18 Blood Culture Stat Complete Blood Count AUTO DIFF Stat Comprehensive Metabolic Panel Stat Creatine Kinase Stat Lactate (Lactic Acid) Stat Procalcitonin Stat Troponin I Stat 06/26/19 12:43 Urinalysis and Microscopic Stat Urine Culture Stat 06/26/19 13:37 XR chest 1V Stat 06/26/19 14:25 CT abdomen pelvis w con Stat Sodium Chloride (Normal Saline 0.9%) 1,000 mls @ 150 mls/hr IV BOLUS ONE Stop: 06/26/19 19:04 Last Infusion: 06/26/19 15:02 Dose: 150 mls/hr Documented by: Infusion: 06/26/19 12:30 Dose: 0 mls/hr Documented by: Admin: 06/26/19 12:28 Dose: 150 mls/hr Documented by: COOPER Norepinephrine Bitartrate 4 mg (/ Dextrose) 254 mls @ 30.48 mls/hr IV TITRATE [facility]; Protocol Last Titration: 06/26/19 13:47 Dose: 0 mcg/min, 0 mls/hr Documented by: Admin: 06/26/19 13:46 Dose: 8 mcg/min, 30.48 mls/hr Documented by: KAUR Discontinued Medications Hydromorphone HCl (Dilaudid) 0.5 mg IV NOW ONE Stop: 06/26/19 12:04 Last Admin: 06/26/19 12:22 Dose: 0.5 mg Documented by: KAUR Hydromorphone HCl (Dilaudid) 0.5 mg IV NOW ONE Stop: 06/26/19 13:39 Last Admin: 06/26/19 13:46 Dose: 0.5 mg Documented by: KAUR Sodium Chloride (Normal Saline 0.9%) 1,350 mls @ 450 mls/hr 30 ml/kg infuse over 3 hr (1350 ml) IV NOW ONE Stop: 06/26/19 15:03 Last Infusion: 06/26/19 13:20 Dose: 0 mls/hr Documented by: Admin: 06/26/19 12:16 Dose: 450 mls/hr Documented by: KAUR Piperacillin/Tazobactam/Dextrose (Zosyn) 4.5 gm in 100 mls @ 200 mls/hr IV NOW ONE Stop: 06/26/19 12:33 Last Infusion: 06/26/19 13:17 Dose: 0 mls/hr Documented by: Admin: 06/26/19 12:32 Dose: 200 mls/hr Documented by: KAUR Sodium Chloride (Normal Saline 0.9%) 1,000 mls @ 1,000 mls/hr IV BOLUS ONE Stop: 06/26/19 14:33 Last Infusion: 06/26/19 14:54 Dose: 0 mls/hr Documented by: Admin: 06/26/19 13:54 Dose: 1,000 mls/hr Documented by: KAUR Sodium Chloride (Normal Saline 0.9%) 1,000 mls @ 1,000 mls/hr IV BOLUS ONE Stop: 06/26/19 14:37 Last Infusion: 06/26/19 15:01 Dose: 0 mls/hr Documented by: Admin: 06/26/19 14:00 Dose: 1,000 mls/hr Documented by: ARYAN Lorazepam (Ativan) 0.5 mg IV NOW ONE Stop: 06/26/19 12:04 Last Admin: 06/26/19 12:22 Dose: 0.5 mg Documented by: KAUR Vital Signs Vital signs: Vital Signs - 8 hr 06/26/19 12:00 06/26/19 12:03 06/26/19 12:05 Temperature 95.9 F L Pulse Rate 97 H 97 H 97 H Respiratory Rate 22 Blood Pressure 99/55 L Blood Pressure [Right Arm] 97/53 L 87/62 L Pulse Oximetry 97 97 95 06/26/19 12:10 06/26/19 12:15 06/26/19 12:20 Temperature Pulse Rate 93 H 94 H 92 H Respiratory Rate 23 28 H 26 H Blood Pressure Blood Pressure [Right Arm] 93/55 L 93/53 L 89/53 L Pulse Oximetry 94 95 94 06/26/19 13:04 06/26/19 13:48 06/26/19 13:50 Temperature Pulse Rate 88 94 H 94 H Respiratory Rate 25 H Blood Pressure Blood Pressure [Right Arm] 81/51 L 131/73 125/72 Pulse Oximetry 91 06/26/19 13:54 06/26/19 13:58 06/26/19 14:01 Temperature Pulse Rate 93 H 91 H 93 H Respiratory Rate 29 H Blood Pressure Blood Pressure [Right Arm] 114/63 106/64 106/64 Pulse Oximetry 100 06/26/19 14:35 06/26/19 15:03 06/26/19 15:40 Temperature Pulse Rate 90 90 91 H Respiratory Rate 20 15 17 Blood Pressure Blood Pressure [Right Arm] 93/55 L 124/70 106/67 Pulse Oximetry 100 100 Medical Decision Making Medical Records Medical records reviewed: Yes I reviewed the patient's medical records. Lab Data Lab results reviewed: Yes I reviewed the patient's lab results. Result diagrams: 06/26/19 12:18 06/26/19 12:18 Labs: Lab Results 06/26/19 06/26/19 06/26/19 Range/Units 12:18 12:18 12:18 WBC 19.5 H (4.5-11.0) X10^3/uL RBC 3.14 L (4.0-5.2) X10^6/uL Hgb 10.1 L (12.0-16.0) g/dL Hct 30.7 L (36-46) % MCV 97.8 (80-100) fL MCH 32.0 (26-34) PG MCHC 32.8 (30-36) % RDW 13.8 (11.6-14.8) % Plt Count 309 (150-400) X10^3/uL Neut % (Auto) 82.4 H (50-75) % Lymph % (Auto) 9.7 L (25-40) % [place] % (Auto) 7.5 (3-14) % Eos % (Auto) 0.1 L (2-4) % Baso % (Auto) 0.3 (0-2) % Neut # (Auto) 91630 H (1023-5187) /uL Lymph # (Auto) 1900 (1862-8111) /uL [place] # (Auto) 1500 H (0-900) /uL Eos # (Auto) 0 (0-450) /uL Baso # (Auto) 100 (0-100) /uL Sodium 131 L (137-145) mmol/L Potassium 4.3 (3.4-5.1) mmol/L Chloride 112 H (98-107) mmol/L Carbon Dioxide 10 L (22-32) mmol/L BUN 30 H (7-17) mg/dL Creatinine 0.97 (0.52-1.04) mg/dL Estimated GFR > 60.0 (>60) mL/min BUN/Creatinine Ratio 30.9 H (6-22) Glucose 78 D (70-100) mg/dL Lactate (0.7-2.1) mmol/L Calcium 8.2 L (8.4-10.2) mg/dL Total Bilirubin 0.2 (0.2-1.3) mg/dL AST 54 H (14-36) IU/L ALT 112 H (<35) IU/L Alkaline Phosphatase 267 H (38-126) U/L Total Creatine Kinase (30-135) U/L Troponin I (0.01-0.034) ng/mL Total Protein 5.5 L (6.3-8.2) g/dL Albumin 2.6 L (3.5-5.0) g/dL Globulin 2.9 (1.7-4.1) g/dL Albumin/Globulin Ratio 0.9 L (1.0-2.8) Procalcitonin < 0.05 (<0.5) ng/mL Urine Color Urine Appearance Urine pH (4.5-8.0) Ur Specific [place] (1.000-1.035) Urine Protein (Negative) Urine Glucose (UA) (Negative) g/dL Urine Ketones (NEGATIVE) Urine Occult Blood (Negative) Urine Nitrate (Negative) Urine Bilirubin (NEGATIVE) Urine Urobilinogen (0.2) E.U./dL Ur Leukocyte Esterase (NEGATIVE) Urine RBC (0-5/HPF) Urine WBC (0-5/HPF) Ur Squamous Epith Cells (0-5/HPF) Amorphous Sediment Urine Bacteria (None) Urine Mucus (Negative) Ur Culture Indicated? 06/26/19 06/26/19 06/26/19 Range/Units 12:18 12:18 12:43 WBC (4.5-11.0) X10^3/uL RBC (4.0-5.2) X10^6/uL Hgb (12.0-16.0) g/dL Hct (36-46) % MCV (80-100) fL MCH (26-34) PG MCHC (30-36) % RDW (11.6-14.8) % Plt Count (150-400) X10^3/uL Neut % (Auto) (50-75) % Lymph % (Auto) (25-40) % [place] % (Auto) (3-14) % Eos % (Auto) (2-4) % Baso % (Auto) (0-2) % Neut # (Auto) (6985-3672) /uL Lymph # (Auto) (3724-2336) /uL [place] # (Auto) (0-900) /uL Eos # (Auto) (0-450) /uL Baso # (Auto) (0-100) /uL Sodium (137-145) mmol/L Potassium (3.4-5.1) mmol/L Chloride (98-107) mmol/L Carbon Dioxide (22-32) mmol/L BUN (7-17) mg/dL Creatinine (0.52-1.04) mg/dL Estimated GFR (>60) mL/min BUN/Creatinine Ratio (6-22) Glucose (70-100) mg/dL Lactate 3.7 H (0.7-2.1) mmol/L Calcium (8.4-10.2) mg/dL Total Bilirubin (0.2-1.3) mg/dL AST (14-36) IU/L ALT (<35) IU/L Alkaline Phosphatase (38-126) U/L Total Creatine Kinase 31 (30-135) U/L Troponin I < 0.012 (0.01-0.034) ng/mL Total Protein (6.3-8.2) g/dL Albumin (3.5-5.0) g/dL Globulin (1.7-4.1) g/dL Albumin/Globulin Ratio (1.0-2.8) Procalcitonin (<0.5) ng/mL Urine Color Yellow Urine Appearance Cloudy Urine pH 6.5 (4.5-8.0) Ur Specific [place] 1.015 (1.000-1.035) Urine Protein Trace H (Negative) Urine Glucose (UA) Negative (Negative) g/dL Urine Ketones Negative (NEGATIVE) Urine Occult Blood Trace-intact (Negative) Urine Nitrate Negative (Negative) Urine Bilirubin Negative (NEGATIVE) Urine Urobilinogen 0.2 (0.2) E.U./dL Ur Leukocyte Esterase Negative (NEGATIVE) Urine RBC 1-5/hpf (0-5/HPF) Urine WBC 5-10/hpf H (0-5/HPF) Ur Squamous Epith Cells 0-1 /hpf (0-5/HPF) Amorphous Sediment 1+ Urine Bacteria Moderate (10-30) H (None) Urine Mucus 2+ H (Negative) Ur Culture Indicated? Specimen cultured 06/26/19 Range/Units 14:48 WBC (4.5-11.0) X10^3/uL RBC (4.0-5.2) X10^6/uL Hgb (12.0-16.0) g/dL Hct (36-46) % MCV (80-100) fL MCH (26-34) PG MCHC (30-36) % RDW (11.6-14.8) % Plt Count (150-400) X10^3/uL Neut % (Auto) (50-75) % Lymph % (Auto) (25-40) % [place] % (Auto) (3-14) % Eos % (Auto) (2-4) % Baso % (Auto) (0-2) % Neut # (Auto) (0704-6353) /uL Lymph # (Auto) (8353-9418) /uL [place] # (Auto) (0-900) /uL Eos # (Auto) (0-450) /uL Baso # (Auto) (0-100) /uL Sodium (137-145) mmol/L Potassium (3.4-5.1) mmol/L Chloride (98-107) mmol/L Carbon Dioxide (22-32) mmol/L BUN (7-17) mg/dL Creatinine (0.52-1.04) mg/dL Estimated GFR (>60) mL/min BUN/Creatinine Ratio (6-22) Glucose (70-100) mg/dL Lactate 1.3 (0.7-2.1) mmol/L Calcium (8.4-10.2) mg/dL Total Bilirubin (0.2-1.3) mg/dL AST (14-36) IU/L ALT (<35) IU/L Alkaline Phosphatase (38-126) U/L Total Creatine Kinase (30-135) U/L Troponin I (0.01-0.034) ng/mL Total Protein (6.3-8.2) g/dL Albumin (3.5-5.0) g/dL Globulin (1.7-4.1) g/dL Albumin/Globulin Ratio (1.0-2.8) Procalcitonin (<0.5) ng/mL Urine Color Urine Appearance Urine pH (4.5-8.0) Ur Specific [place] (1.000-1.035) Urine Protein (Negative) Urine Glucose (UA) (Negative) g/dL Urine Ketones (NEGATIVE) Urine Occult Blood (Negative) Urine Nitrate (Negative) Urine Bilirubin (NEGATIVE) Urine Urobilinogen (0.2) E.U./dL Ur Leukocyte Esterase (NEGATIVE) Urine RBC (0-5/HPF) Urine WBC (0-5/HPF) Ur Squamous Epith Cells (0-5/HPF) Amorphous Sediment Urine Bacteria (None) Urine Mucus (Negative) Ur Culture Indicated? Urine culture from June 16: Urine Culture Final 06/20/19 Organism 1 Enterococ casseliflavus(grp d) [place] Count >100,000 CFU/ml Organism 2 Enterococcus gallinarum [place] Count >100,000 CFU/ml 1. Enterococ casseliflavus(grp d) [facility] RX --------- --- * Ampicillin S * Vancomycin R * Ciprofloxacin S * Gentamicin 500 S * Levofloxacin S * Linezolid S * Nitrofurantoin S * Streptomycin 2000 S * Tetracycline R 2. Enterococcus gallinarum [facility] RX --------- --- * Ampicillin S * Vancomycin R * Ciprofloxacin R * Gentamicin 500 S * Levofloxacin R * Linezolid S * Nitrofurantoin S * Streptomycin 2000 R * Tetracycline R Enterococ casseliflavus(grp d) Enterococcus gallinarum [facility] RX [facility] RX --------- --- --------- --- * Ampicillin S S * Vancomycin R R * Ciprofloxacin S R * Gentamicin 500 S S * Levofloxacin S R * Linezolid S S * Nitrofurantoin S S * Streptomycin 2000 S R * Tetracycline R R Imaging Data Chest x-ray: Radiologist's Impression: IMPRESSION: Limited portable chest examination, without a significant cardiopulmonary abnormality identified. As clinically appropriate, a short-term followup chest series (with PA and lateral views) performed in deep inspiration is suggested for further evaluation. Dictated by: Damion Bonner M.D. on 06/26/2019 at 11:58 ECG Data Attestation: I personally reviewed and interpreted this ECG as follows: Interpretation: Normal sinus rhythm written at a rate of 93 Normal axis, no acute ST T wave changes MDM Narrative Medical decision making narrative: 53-year-old woman presents by medics after being found on the floor. She had a fall with a left proximal humerus fracture on June 21 and seen again on June 22 with pain control issues. She states that she has been feeling unwell. On further questioning it turns out that she has not been honest with her about help poorly she has been feeling. She reports that she was relatively recently admitted to [facility] with sepsis. Will try and obtain those records to get dates as well as additional details. She said it was related to pyelonephritis. Her reports that this is NOT the case, she was seen at [facility] and treated with Cipro for pylonephritis. After 3 L of fluid she remains quite hypotensive still alert and cooperative needs to be refocused to be calmed but is able to be redirected. Ultrasound for line placement does indicate significantly compressible internal jugular. Additional fluids are continued. She was given Levaquin already. Central line will be placed as her pressure remains in the 80s. Nor epi will be started. At this point, there are no respiratory complaints, she is not tachypneic nor hypoxic and not in need of advanced airway protection. Current working diagnosis will be sepsis secondary to pyelonephritis, however urinalysis is not all that dramatic. Will continue to watch for records from prior hospitalization, will continue with Zosyn as primary antibiotics source at this time. Urine has been collected. Chest x-ray shows appropriate line placement for the central line and no obvious infiltrates on her chest film. Complicating factor of left proximal humerus fracture, significant pain issues related to that. Will contact hospitalist [phone] reviewed case with hospitalist. Will obtain CT scan of the abdomen to see if any other explanations for a source for her sepsis can be found. 1600 After fluid resucitation, pressure is upto 110 systolic without need for IV pressors. CT reveals Both kidneys demonstrate normal size and enhancement. No perinephric fat stranding or striated nephrograms to suggest acute pyelonephritis. There is bilateral pyelectasis. The right ureter is markedly dilated throughout its course to the level of the ileal conduit. The left ureter is mildly dilated. In putting this case together more completely, I believe this is a partially treated urosepsis. Fluid resuscitation has appropriately alleviated the Hypertensin issues. No evidence of renal failure at this point however with the nephrostomy that currently is in place and a CT scan suggesting right ureteral marked dilation throughout its course to the level of the ileal conduit and mildly dilated left ureter she may end up needing urology consultation and intervention to see if there is a stenosis at the level of the ileal conduit. Urine culture for June 16 shows Enterococcus 2 different subtypes she is currently on appropriate with antibiotics to cover these. As there is no urology or nephrology consultation available at [facility] the hospitalist is recommended transfer. Additional complicating factor is the pain control issues associated with the healing left humeral fracture, the fracture itself is stable healing appropriately and needs only a sling and time at this point. After the resuscitation done in the emergency department she is appropriate for floor care at this time and beds are available at [facility]. Discharge Plan Departure Clinical Impression: Pyelonephritis, Sepsis, Ureteral stenosis, right, Fracture of humeral head, closed Prescriptions: No Action hydroxyzine HCl 25 MG tablet 25 mg PO TID PRN (Reason: Anxiety) Qty: 0 RF: 0 magnesium oxide 400 MG tablet 400 mg PO BEDTIME Qty: 0 RF: 0 albuterol sulfate [Proventil HFA] 90 MCG/PUFF HFA aerosol inhaler 2 puff INH Q4HP PRN (Reason: Shortness Of Breath) Qty: 0 RF: 0 duloxetine 60 MG capsule,delayed release(DR/EC) 60 mg PO DAILY Qty: 0 RF: 0 gabapentin [Neurontin] 300 MG capsule 600 mg PO TID Qty: 0 RF: 0 multivitamin [Multiple Vitamins] 1 EACH tablet 1 tab PO DAILY Qty: 0 RF: 0 zolpidem [Ambien] 10 MG tablet 10 mg PO HS PRN (Reason: Insomnia) Qty: 0 RF: 0 lorazepam 0.5 mg tablet 0.5 mg PO BID PRN (Reason: Anxiety) RF: 0 aspirin 81 mg tablet,chewable 81 mg PO DAILY RF: 0 hydrocodone-acetaminophen [[place]] 5-325 mg tablet 1 - 2 tab PO Q6H PRN (Reason: pain) RF: 0 methocarbamol 500 mg tablet 1,000 mg PO Q6H PRN (Reason: Muscle Spasm) RF: 0 prochlorperazine maleate 10 mg tablet 10 mg PO Q6H PRN (Reason: Nausea) RF: 0 Humulin N NPH Insulin KwikPen 100 unit/mL (3 mL) insulin pen 15 unit SUBCUT BID RF: 0 tizanidine 4 mg capsule 4 mg PO TID PRN (Reason: Nausea) RF: 0 oxycodone-acetaminophen [Percocet] 7.5-325 mg tablet 1 tab PO Q6H PRN (Reason: pain) Qty: 12 RF: 0 cyclobenzaprine 10 mg tablet 10 mg PO TID PRN (Reason: muscle spasm) Qty: 15 RF: 0 amitriptyline 50 mg tablet 150 mg PO BEDTIME RF: 0 potassium chloride 20 mEq tablet,ER particles/crystals 20 meq PO QNOON RF: 0 lisinopril 10 mg tablet 10 mg PO DAILY RF: 0 omeprazole 20 mg capsule,delayed release(DR/EC) 20 mg PO DAILY RF: 0 ondansetron 4 mg tablet,disintegrating 1 tab Translingual Q6H PRN (Reason: Nausea) RF: 0 Probiotic 1 tab PO BID RF: 0 vitamin E 1 cap PO DAILY RF: 0 ciprofloxacin HCl 500 mg tablet 500 mg PO BID Qty: 20 RF: 0 oxycodone-acetaminophen [Percocet] 7.5-325 mg tablet 1 tab PO .Q6-8hrs PRN (Reason: pain) Qty: 10 RF: 0 tramadol 50 mg tablet 50 mg PO Q8H PRN (Reason: pain) Qty: 10 RF: 0 Referrals: Fadi Ko DO [Primary Care Provider] -
--- NOTE | 2019-06-26 12:04 | DI.RAD.S_ITS ---
PROCEDURE: XR CHEST 1V INDICATIONS: fall, sepsis TECHNIQUE: One view of the chest was acquired. COMPARISON: Located Within [facility], CR, XR CHEST 2V, 08/30/2018, 3:59. Located Within [facility], CR, XR CHEST 2V, 02/03/2019, 13:36. Located Within [facility], CR, XR CHEST 1V, 06/17/2019, 9:55. FINDINGS: Surgical changes and devices: None. Lungs and pleura: On this supine examination, no large pneumothorax or large pleural effusions are seen. No focal areas of lung consolidation are seen. Low lung volumes are noted. This causes a crowded appearance to the lung markings and limits evaluation. Mediastinum: Mediastinal contours appear normal. Heart size is normal. Bones and chest wall: No suspicious bony lesions. Overlying soft tissues appear unremarkable. IMPRESSION: Limited portable chest examination, without a significant cardiopulmonary abnormality identified. As clinically appropriate, a short-term followup chest series (with PA and lateral views) performed in deep inspiration is suggested for further evaluation. Dictated by: Damion Bonner M.D. on 06/26/2019 at 11:58 Approved by: Damion Bonner M.D. on 06/26/2019 at 11:59
[2019-06-26] MEDS: SODIUM CHLORIDE 0.9% 1,350 ML 450 ML IV (12:16)
[2019-06-26] MEDS: HYDROMORPHONE 0.5 MG INJ IV ×2 (12:22→13:46)
[2019-06-26] MEDS: LORazepam 2 MG/ML INJ 0.5 MG IV ×2 (12:22→16:48)
[2019-06-26] MEDS: SODIUM CHLORIDE 0.9% 1,000 ML 150 ML IV (12:28)
[2019-06-26] MEDS: PIPERACILLIN-TAZO 4.5 GM/100 ML FROZ.PIGGY IV (12:32)
[2019-06-26 12:36] LABS: Add Manual Diff / Slide Review NO; Basophils Absolute Auto 100 /uL (0-100); Basophils Percent Auto 0.3 % (0-2); Eosinophils Absolute Auto 0 /uL (0-450); Eosinophils Percent Auto 0.1 % (2-4); Hematocrit 30.7 % (36-46); Hemoglobin 10.1 g/dL (12.0-16.0); Lymphocytes Absolute Auto 1900 /uL (1100-4500); Lymphocytes Percent Auto 9.7 % (25-40); Mean Corpuscular HGB Conc 32.8 % (30-36); Mean Corpuscular Volume 97.8 fL (80-100); Monocytes Absolute Auto 1500 /uL (0-900); Monocytes Percent Auto 7.5 % (3-14); Neutrophils Absolute Auto 16100 /uL (1500-7000); Neutrophils Percent Auto 82.4 % (50-75); Platelet Count 309 X10^3/uL (150-400); Red Blood Cell Count 3.14 X10^6/uL (4.0-5.2); Red Cell Distribution Width 13.8 % (11.6-14.8); White Blood Cell Count 19.5 X10^3/uL (4.5-11.0)
--- NOTE | 2019-06-26 12:42 | PC.NURSE ---
Patient reports she fell yesterday at 1430. Was found down and confused. patient oriented to self. post fluids and , patient oriented to self, place and date. patient reports continued pain in left shoulder. Pressure remains low last provider notiffied
[2019-06-26 12:47] LABS: Appearance Urine UA CLOUDY; Bilirubin Urine UA NEGATIVE (NEGATIVE); Color Urine UA YELLOW; Glucose Urine UA NEGATIVE (Negative); Ketones Urine UA NEGATIVE (NEGATIVE); Leukocyte Esterase Urine UA NEGATIVE (NEGATIVE); Nitrite Urine UA NEGATIVE (Negative); Occult Blood Urine UA TRACE-INTACT (Negative); Protein Urine UA TRACE (Negative); Specific Gravity Urine UA 1.015 (1.000-1.035); Urobilinogen Urine UA 0.2 E.U./dL (0.2)
[2019-06-26 12:49] LABS: pH Urine UA 6.5 (4.5-8.0)
[2019-06-26 12:51] LABS: Alanine Aminotransferase 112 IU/L (<35); Albumin 2.6 g/dL (3.5-5.0); Albumin Globulin Ratio 0.9 (1.0-2.8); Alkaline Phosphatase 267 U/L (38-126); Aspartate Aminotransferase 54 IU/L (14-36); BUN Creatinine Ratio 30.9 (6-22); Bilirubin Total 0.2 mg/dL (0.2-1.3); Blood Urea Nitrogen 30 mg/dL (7-17); Calcium 8.2 mg/dL (8.4-10.2); Carbon Dioxide 10 mmol/L (22-32); Chloride 112 mmol/L (98-107); Creatine Kinase 31 U/L (30-135); Estimated Glomerular Filt Rate > 60.0 mL/min (>60); Globulin 2.9 g/dL (1.7-4.1); Glucose 78 mg/dL (70-100); HEMOLYSIS < 15 (0-50); Potassium 4.3 mmol/L (3.4-5.1); Sodium 131 mmol/L (137-145); Total Protein 5.5 g/dL (6.3-8.2)
[2019-06-26 12:52] LABS: Lactate (Lactic Acid) 3.7 mmol/L (0.7-2.1)
[2019-06-26 12:55] LABS: RBC Urine 1-5/HPF (0-5/HPF); WBC Urine 5-10/HPF (0-5/HPF)
[2019-06-26 12:56] LABS: Amorphous Sediment Urine 1+; Bacteria Urine Moderate (10-30); Culture Indicated Urine Specimen Cultured; Mucus Urine 2+ (Negative); Squamous Epithelial Cell Urine 0-1 /HPF (0-5/HPF)
[2019-06-26 13:03] LABS: Troponin I < 0.012 ng/mL (0.01-0.034)
[2019-06-26 13:06] LABS: Procalcitonin < 0.05 ng/mL (<0.5)
--- NOTE | 2019-06-26 13:12 | PC.NURSE ---
verbal order from provider to complete second liter of NS. urine output 150 from urostomy.
--- NOTE | 2019-06-26 13:37 | DI.RAD.S_ITS ---
PROCEDURE: XR CHEST 1V INDICATIONS: post central line (est ready 1400) TECHNIQUE: One view of the chest was acquired. COMPARISON: [facility], CR, XR CHEST 1V, 06/26/2019, 12:37. FINDINGS: Surgical changes and devices: A right-sided central line catheter has been placed in the interim with the tip overlying the high superior vena cava. Lungs and pleura: Lungs are clear. No pleural effusions or pneumothorax. Mediastinum: Mediastinal contours appear normal. Heart size is normal. Bones and chest wall: No suspicious bony lesions. Overlying soft tissues appear unremarkable. IMPRESSION: Right-sided central line catheter appears to be in appropriate position. No pneumothorax. Dictated by: Mikhail Carlin M.D. on 06/26/2019 at 13:19 Approved by: Mikhail Carlin M.D. on 06/26/2019 at 13:21
[2019-06-26] MEDS: NOREPINEPHRINE 4 MG in DEXTROSE 5% IN WATER 250 ML 30.48 ML IV (13:46)
--- NOTE | 2019-06-26 13:50 | PC.NURSE ---
MD obtaining central line at this time for hypotension and sepsis. Levophed spiked and at bedside, pt BP holding at this time 120's sys due to pt being in a slight trendelenberg position. pt given Dilaudid for pain control prior to insertion. XR standing by for placement confirmation.
[2019-06-26] MEDS: SODIUM CHLORIDE 0.9% 1,000 ML 1000 ML IV ×2 (13:54→14:00)
--- NOTE | 2019-06-26 13:59 | PC.NURSE ---
CXR for central line placement
--- NOTE | 2019-06-26 14:25 | DI.CT.S_ITS ---
PROCEDURE: CT ABDOMEN PELVIS W CON INDICATIONS: sepsis, uncertain source TECHNIQUE: After the administration of intravenous contrast, 5 mm thick sections acquired from the diaphragm to the symphysis. 5 mm coronal and sagittal reformats were acquired. For radiation dose reduction, the following was used: automated exposure control, adjustment of mA and/or kV according to patient size. COMPARISON: [facility], CR, XR CHEST 1V, 06/26/2019, 13:55. [facility], CT, CT ABDOMEN PELVIS W CON, 07/24/2018, 10:40. FINDINGS: Image quality: Excellent. ABDOMEN: Lung bases: Subtle, patchy air space opacities are present at the right lung base which are incompletely characterized on this limited view of the chest. Atelectasis is also present in the dependent lung bases. No pleural effusion. Heart is normal size. Solid organs: Liver is normal in size and demonstrates diffuse hypodensity suggesting fatty infiltration. Gallbladder is unremarkable. Biliary system is non dilated. Pancreas enhances normally. Spleen is normal in size and enhancement. No adrenal nodules. Both kidneys demonstrate normal size and enhancement. No perinephric fat stranding or striated nephrograms to suggest acute pyelonephritis. There is bilateral pyelectasis. The right ureter is markedly dilated throughout its course to the level of the ileal conduit. The left ureter is mildly dilated. Peritoneum and bowel: Bowel loops demonstrate normal wall thickness and caliber. The appendix is not visualized; however surgical clips are present in the region of the cecum in the lower quadrant suggesting prior appendectomy. No free fluid or air. Nodes and vessels: No retroperitoneal or mesenteric adenopathy by size criteria. Aorta and inferior vena cava are normal in size. There are scattered atheromatous calcifications throughout the aorta and iliac arteries bilaterally. Miscellaneous: No ventral hernias. PELVIS: Genitourinary: The bladder and prostate are is surgically absent. Miscellaneous: No inguinal hernias or adenopathy. Bones: No suspicious bony lesions. No vertebral body compression fractures. IMPRESSION: 1. Patchy right basilar air space opacities not appreciated on the comparison plain film from earlier today. Differential considerations include aspiration and infection. If further characterization is warranted, dedicated CT of the chest could be used. 2. Bilateral pyelectasis and severe right and mild left hydroureter to the level of the ileal conduit. There is no perinephric fat stranding or striated nephrograms to suggest obstruction or pyelonephritis. However, further characterization with urinalysis would be helpful to exclude early urosepsis. 3. No acute intra-abdominal findings. Probable prior appendectomy. Dictated by: Shannan Hood M.D. on 06/26/2019 at 15:19 Approved by: Shannan Hood M.D. on 06/26/2019 at 15:29
[2019-06-26 14:28] LABS: Reflexed Lactate in 2 Hours Y
--- NOTE | 2019-06-26 15:03 | PC.NURSE ---
Addendum entered by Aniyah Larsen R.N. 06/26/19 15:07: edit to add warm compress to right forearm IV site. Pt in no acute distress. Original Note: patient returned from CT. per transportation coordinator, right forearm IV infiltrated with contrast. patient repositioned to supine position of comfort. Alert and oriented, Dwayne at bedside pressures stable with no pressors need at this time. Patient continues to create urine. will continue to assess and monitor. Patient denies complaints at this time.
[2019-06-26 15:09] LABS: Lactate 2HR (Lactic Acid Rflx) 1.3 mmol/L (0.7-2.1)
[2019-06-26] MEDS: OXYCODONE/ACETAMINOPHEN 5/325 TABLET 2 TAB PO (16:14)
[2019-06-26] MEDS: PIPERACILLIN-TAZO 3.375 GM/50 ML FROZ.PIGGY IV (17:55)
== END 2019-06-26 18:16 | disposition short-term general hospital (02) ==
PROVIDERS: Emergency Provider Emergency Medicine; PCP Family Medicine
DX: N12 Tubulo-interstitial nephritis, not specified as acute or chronic (principal); A41.9 Sepsis, unspecified organism; N13.1 Hydronephrosis with ureteral stricture, not elsewhere classified; S42.293A Other displaced fracture of upper end of unspecified humerus, initial encounter for closed fracture; W19.XXXA Unspecified fall, initial encounter
CPT/HCPCS: 36415; 36556; 71045; 74177; 80053; 81001; 82550; 83605; 84145; 84484; 85025; 87040; 87077; 87086; 87186; 93005; 96361; 96365; 96375; 96376; 99285; 99291; 99292; J1170; J2060; J2543

== ENCOUNTER → 2019-07-17 12:00 | Outpatient (CLI) | payer OTHER, SELFPAY ==
--- NOTE | 2019-07-17 | DI.CT.S_ITS ---
PROCEDURE: CT UE LT WO CON INDICATIONS: Unspecified fracture of upper end of left humerus, TECHNIQUE: Noncontrast 1-1.5 mm thick sections acquired from the acromioclavicular joint to the inferior scapula, with coronal and sagittal reformatting. COMPARISON: [facility], CR, XR SHOULDER LT MIN 2V, 06/22/2019, 16:48. [facility], CR, XR SHOULDER 1 VIEW LEFT, 06/27/2019, 14:25. [facility], CT, CT UE LT WO CON, 06/22/2019, 18:05. FINDINGS: Image quality: Excellent. Bones: The previously identified moderately comminuted impacted and displaced proximal humeral fracture is again noted, with reference to the CT scanning performed through this area 06/22/19. There has been interval development of callus between the fracture planes, and the degree of displacement previously present has not appreciably worsened. The fracture does not extend into the articular surface and the adjacent glenoid and scapula elsewhere appear normal. Soft tissues: No hematoma involving the soft tissues at the left shoulder joint appears present. IMPRESSION: Interval development of callus between the fracture planes involving the proximal left humeral metadiaphyseal junction. The fracture extends into the humeral neck, and early callus formation is present. No additional fracture is found, no intra-articular loose body is identified and the fracture planes do not extend to the articular surfaces. Dictated by: Akbar Ortiz M.D. on 07/17/2019 at 13:12 Approved by: Akbar Ortiz M.D. on 07/17/2019 at 13:17
== END ==
PROVIDERS: PCP Family Medicine; Referring Provider Orthopaedic Surgery; Visit Provider Orthopaedic Surgery
DX: S42.292A Other displaced fracture of upper end of left humerus, initial encounter for closed fracture (principal); X58.XXXA Exposure to other specified factors, initial encounter
CPT/HCPCS: 73200

== ENCOUNTER → 2019-07-25 11:50 | Outpatient (CLI) | payer OTHER, SELFPAY | PROVIDERS: PCP Family Medicine; Referring Provider Family Medicine; Visit Provider Family Medicine | DX: N39.0 Urinary tract infection, site not specified (principal) | CPT/HCPCS: 87077; 87086; 87147 ==

== ENCOUNTER 2019-08-02 05:24 | Emergency (ER) | payer OTHER, SELFPAY ==
[2019-08-02 05:37] VITALS: BP 121/87; PULSE 107; RESP 16; TEMP 36.4; O2SAT 100; BMI 16.0
--- NOTE | 2019-08-02 05:44 | DI.RAD.S_ITS ---
PROCEDURE: XR CHEST 1V INDICATIONS: fatigue, shortness of breath, feels unwell TECHNIQUE: One view of the chest was acquired. COMPARISON: [facility], CR, XR CHEST 1V, 06/26/2019, 13:55. FINDINGS: Surgical changes and devices: None. Lungs and pleura: Lungs are clear. No pleural effusions or pneumothorax. Mediastinum: Mediastinal contours appear normal. Heart size is normal. Bones and chest wall: No suspicious bony lesions. Overlying soft tissues appear unremarkable. IMPRESSION: No acute disease Dictated by: Garrett Ferreira M.D. on 08/02/2019 at 9:29 Approved by: Garrett Ferreira M.D. on 08/02/2019 at 9:30
--- NOTE | 2019-08-02 05:53 | ED_ITS ---
HPI - Abdominal Pain General Chief Complaint: Abdominal Pain Stated Complaint: epigastric pain lightheaded Time Seen by Provider: 08/02/19 05:25 Source: patient and family Mode of arrival: Family Vehicle Limitations: no limitations History of Present Illness HPI narrative: 54-year-old female smoker with history of urostomy, chronic pain, anxiety, relatively recent left proximal humerus fracture presents with her h usband and chief complaint of gradually worsening epigastric pain over the past few days as well as some lightheadedness and nausea. She states that since she fell and broke her proximal humerus she has had trouble controlling her pain. Her pain was appropriately controlled when she was receiving prescription opioids but since then she has been using Tylenol and excessive amounts of Motrin. She had been developing some epigastric discomfort and had been put on Protonix which was recently increased to twice a day regimen. MD complaint: abdominal pain Onset (ago): hour(s) Pain Consistency: constant Location: epigastric Severity: mild Quality: cramping Radiation: none Relieving factors: nothing Exacerbating factors: nothing Associated symptoms: nausea Related Data Home Medications Medication Instructions Recorded Confirmed albuterol sulfate [Proventil HFA] 2 puff INH Q4HP PRN #0 01/08/13 10/04/18 hydroxyzine HCl 25 mg PO TID PRN #0 01/08/13 05/17/19 magnesium oxide 400 mg PO BEDTIME #0 tab 01/08/13 05/17/19 duloxetine 60 mg PO DAILY #0 07/04/17 05/17/19 gabapentin [Neurontin] 600 mg PO TID #0 07/04/17 05/17/19 multivitamin [Multiple Vitamins] 1 tab PO DAILY #0 07/04/17 10/04/18 zolpidem [Ambien] 10 mg PO HS PRN #0 07/04/17 05/17/19 Probiotic 1 tab PO BID 09/26/17 10/04/18 amitriptyline 150 mg PO BEDTIME 09/26/17 05/17/19 lisinopril 10 mg PO DAILY 09/26/17 05/17/19 omeprazole 20 mg PO DAILY 09/26/17 05/17/19 ondansetron 1 tab TRANSLINGUAL Q6H PRN 09/26/17 10/04/18 potassium chloride 20 meq PO QNOON 09/26/17 05/17/19 vitamin E 1 cap PO DAILY 09/26/17 09/26/17 lorazepam 0.5 mg PO BID PRN 05/30/18 05/17/19 aspirin 81 mg PO DAILY 06/13/18 10/04/18 hydrocodone-acetaminophen [Roxana] 1 - 2 tab PO Q6H PRN 10/04/18 10/04/18 insulin NPH isoph U-100 human 15 unit SUBCUT BID 05/17/19 05/17/19 [Humulin N NPH Insulin KwikPen] methocarbamol 1,000 mg PO Q6H PRN 05/17/19 05/17/19 prochlorperazine maleate 10 mg PO Q6H PRN 05/17/19 05/17/19 tizanidine 4 mg PO TID PRN 05/17/19 05/17/19 Previous Rx's Medication Instructions Recorded ciprofloxacin HCl 500 mg PO BID #20 tab 06/17/19 cyclobenzaprine 10 mg PO TID PRN #15 tab 06/22/19 oxycodone-acetaminophen [Percocet] 1 tab PO Q6H PRN #12 tab 06/22/19 oxycodone-acetaminophen [Percocet] 1 tab PO .Q6-8hrs PRN #10 tab 06/23/19 tramadol 50 mg PO Q8H PRN #10 tab 06/23/19 hydrocodone-acetaminophen 1 tab PO Q4-6H PRN #10 tab 08/02/19 Allergies Allergy/AdvReac Type Severity Reaction Status Date / Time mupirocin Allergy Unknown Verified 06/23/19 11:33 naproxen Allergy Unknown Verified 06/23/19 11:33 Penicillins Allergy Unknown SINCE Verified 06/23/19 11:33 CHILDHOOD droperidol AdvReac Unknown Verified 06/23/19 11:33 fenofibrate [FENOFIBRATE] AdvReac Unknown Verified 06/23/19 11:33 ibuprofen AdvReac Unknown NAUSEA Verified 06/23/19 11:33 metformin [METFORMIN] AdvReac Unknown Verified 06/23/19 11:33 metoclopramide AdvReac Unknown BECAME Verified 06/23/19 11:33 JITTERY AND ANXIOUS nitrofurantoin AdvReac Unknown NAUSEA Verified 06/23/19 11:33 Review of Systems Constitutional Constitutional: Denies chills, Reports fatigue, Denies fever(s), Denies frequent falls, Denies lethargy and Reports weakness Eyes Eyes: Denies change in vision, Denies eye discharge, Denies irritation and Denies loss of vision ENT Ears, Nose, Mouth, and Throat: Denies change in voice, Denies dizziness, Denies neck pain, Denies sore throat and Denies throat swelling Cardiovascular Cardiovascular: Denies chest pain, Denies irregular heart rhythm, Denies lightheadedness, Denies palpitations, Denies dyspnea, Denies dyspnea on exertion and Denies orthopnea Respiratory Respiratory: Denies cough, Denies dyspnea, Denies dyspnea on exertion and Denies wheezing Gastrointestinal Gastrointestinal: Reports abdominal pain, Denies change in bowel habits, Denies diarrhea, Reports nausea and Denies vomiting Genitourinary Genitourinary: Denies hematuria, Denies flank pain, Denies urinary incontinence and Denies urinary urgency Musculoskeletal Musculoskeletal: Denies back pain, Reports limited range of motion, Denies muscle weakness, Denies neck pain, Denies numbness and Denies tingling Integumentary/Breasts Skin/Breast: Denies pruritus, Denies erythema, Denies rash and Denies wounds Neurologic Neurologic: Denies behavioral changes, Denies confusion, Denies dizziness, Denies frequent falls, Denies loss of vision, Denies numbness, Denies tingling and Reports weakness Psychiatric Psychiatric: Denies anxiety, Denies behavioral changes, Denies confusion, Denies depression, Denies homicidal ideation and Denies suicidal ideation Endocrine Endocrine: Reports fatigue, Denies flushing and Denies palpitations Hematologic/Lymphatic Hematologic/Lymphatic: Denies easy bruising Allergic/Immunologic Allergic/Immunologic: Denies urticaria, Denies throat swelling and Denies wheezing Patient History Medical History Anxiety (Chronic) Closed fracture of left humerus (Inactive) Endometriosis (Chronic) Fibromyalgia (Chronic) Heart palpitations (Chronic) History of asthma (Chronic) History of chronic hypertension (Chronic) History of COPD (Chronic) History of depression (Chronic) History of gastrointestinal ulcer (Chronic) History of kidney stones (Chronic) History of migraine (Chronic) History of panic attacks (Chronic) History of type 2 diabetes mellitus (Chronic) Interstitial cystitis (Chronic) UTI (urinary tract infection) (Chronic) Surgical History History of urostomy (Acute) S/P appendectomy (Resolved) Status post hysterectomy (Resolved) Family History Other Family history non-contributory Social History Smoking Status: Current every day smoker Smoking Status: Current every day smoker alcohol intake frequency: a few times a week Substance Use Type: former substance user and marijuana Exam Narrative Exam Narrative: GENERAL: [54] year old patient appears stated age. Chronically ill, obviously feeling unwell but in relatively good spirits HEAD: Atraumatic. Normocephalic. EYES: Pupils equal round and reactive. Extraocular motions intact. No scleral icterus. No injection or drainage. ENT: Nose without bleeding, purulent drainage. Throat without erythema, tonsillar hypertrophy or exudate. Airway patent. NECK: Trachea midline. Non tender CARDIOVASCULAR: Regular rate and rhythm without murmurs, gallops, or rubs. RESPIRATORY: Clear to auscultation. Breath sounds equal bilaterally. No wheezes, rales, or rhonchi. GASTROINTESTINAL: Abdomen soft, mild epigastric tenderness, nondistended. EXTREMITIES: Left upper extremity in sling, proximal humerus tender to palpate BACK: Nontender without deformity or crepitance. No flank tenderness. NEURO: AOx3. SKIN: No rash or erythema of visible areas Initial Vital Signs Initial Vital Signs: Vital Signs Temperature 97.6 F 08/02/19 05:37 Pulse Rate 107 H 08/02/19 05:37 Respiratory Rate 16 08/02/19 05:37 Blood Pressure 121/87 08/02/19 05:37 Pulse Oximetry 100 08/02/19 05:37 Course Orders Ordered: Discontinued Medications Al Hydrox/Mg Hydrox/Simethicone 20 ml/ Lidocaine HCl 15 ml 0 ml PO NOW ONE Stop: 08/02/19 05:44 Last Admin: 08/02/19 07:02 Dose: 35 ml Documented by: MMCFARL Dextrose (D50w) 25 gm IV NOW ONE Stop: 08/02/19 07:26 Last Admin: 08/02/19 07:49 Dose: 25 gm Documented by: COOPER Hydromorphone HCl (Dilaudid) 0.5 mg IV NOW ONE Stop: 08/02/19 05:44 Last Admin: 08/02/19 06:28 Dose: 0.5 mg Documented by: SHAWN Sodium Chloride (Normal Saline 0.9%) 1,000 mls @ 1,000 mls/hr IV BOLUS ONE Stop: 08/02/19 06:42 Last Infusion: 08/02/19 08:20 Dose: 0 mls/hr Documented by: Admin: 08/02/19 06:28 Dose: 1,000 mls/hr Documented by: SHAWN Ondansetron HCl (Zofran) 4 mg IV Q4HR PRN PRN Reason: Nausea And Vomiting Last Admin: 08/02/19 06:25 Dose: 4 mg Documented by: SHAWN Pantoprazole Sodium (Protonix) 40 mg IV NOW ONE Stop: 08/02/19 05:44 Last Admin: 08/02/19 06:28 Dose: 40 mg Documented by: SHAWN Vital Signs Vital signs: Vital Signs - 8 hr 08/02/19 05:37 Temperature 97.6 F Pulse Rate 107 H Respiratory Rate 16 Blood Pressure 121/87 Pulse Oximetry 100 MDM - Abdominal Pain Lab Data Result diagrams: 08/02/19 06:10 08/02/19 06:10 Labs: Lab Results 08/02/19 08/02/19 Range/Units 06:10 06:10 WBC 10.8 (4.5-11.0) X10^3/uL RBC 3.73 L (4.0-5.2) X10^6/uL Hgb 12.4 (12.0-16.0) g/dL Hct 36.4 (36-46) % MCV 97.4 (80-100) fL MCH 33.3 (26-34) PG MCHC 34.1 (30-36) % RDW 15.1 H (11.6-14.8) % Plt Count 400 (150-400) X10^3/uL Neut % (Auto) 48.7 L (50-75) % Lymph % (Auto) 40.5 H (25-40) % [place] % (Auto) 6.7 (3-14) % Eos % (Auto) 2.7 (2-4) % Baso % (Auto) 1.4 (0-2) % Neut # (Auto) 5300 (3069-4272) /uL Lymph # (Auto) 4400 (4861-7975) /uL [place] # (Auto) 700 (0-900) /uL Eos # (Auto) 300 (0-450) /uL Baso # (Auto) 200 H (0-100) /uL Sodium 139 (137-145) mmol/L Potassium 3.8 (3.4-5.1) mmol/L Chloride 109 H (98-107) mmol/L Carbon Dioxide 23 (22-32) mmol/L BUN 15 (7-17) mg/dL Creatinine 0.50 L (0.52-1.04) mg/dL Estimated GFR > 60.0 (>60) mL/min BUN/Creatinine Ratio 30.0 H (6-22) Glucose 47 L (70-100) mg/dL Calcium 9.7 (8.4-10.2) mg/dL Point of care testing: Point of Care Testing Glucose POC 152 Imaging Data Chest x-ray: Attestation: I personally reviewed and interpreted this imaging study as follows: My Impression: NAP Radiologist's Impression: [address] [address] XRay Report Signed Patient: Melvi Gibbs [facility]#: [id number] : 1965Acct:[id number] Age/Sex: 54 / FDate of Service: 08/02/19 Loc: ED Accession Number: [id number] Procedure: XR chest 1V Ordering Provider: Lyle Roman D.O. PROCEDURE: XR CHEST 1V INDICATIONS: fatigue, shortness of breath, feels unwell TECHNIQUE: One view of the chest was acquired. COMPARISON: [facility], , XR CHEST 1V, 06/26/2019, 13:55. FINDINGS: Surgical changes and devices: None. Lungs and pleura: Lungs are clear. No pleural effusions or pneumothorax. Mediastinum: Mediastinal contours appear normal. Heart size is normal. Bones and chest wall: No suspicious bony lesions. Overlying soft tissues appear unremarkable. IMPRESSION: No acute disease Dictated by: Garrett Ferreira M.D. on 08/02/2019 at 9:29 Approved by: Garrett Ferreira M.D. on 08/02/2019 at 9:30 Discharge Plan Departure Patient Disposition: Home Clinical Impression: Hypoglycemia, Chronic left shoulder pain, Gastritis Discharge Date/Time: 08/02/19 08:40 Instructions: DI for Gastritis, DI for Hypoglycemia Activity Restrictions/Additional Instructions: *You have been diagnosed with [hypoglycemia, shoulder pain ] *What to do: *Take medications as directed: Electronically transmitted to [facility] in [place] *Follow up with your primary care provider in 2-3 days, call for an appointment. Let them know you were seen in the Emergency Department and that we ask that you be seen in follow up *Return to ER if you should have any new, worsening or concerning symptoms Prescriptions: New hydrocodone-acetaminophen 5-325 mg tablet 1 tab PO Q4-6H PRN (Reason: pain) Qty: 10 RF: 0 No Action hydroxyzine HCl 25 MG tablet 25 mg PO TID PRN (Reason: Anxiety) Qty: 0 RF: 0 magnesium oxide 400 MG tablet 400 mg PO BEDTIME Qty: 0 RF: 0 albuterol sulfate [Proventil HFA] 90 MCG/PUFF HFA aerosol inhaler 2 puff INH Q4HP PRN (Reason: Shortness Of Breath) Qty: 0 RF: 0 duloxetine 60 MG capsule,delayed release(DR/EC) 60 mg PO DAILY Qty: 0 RF: 0 gabapentin [Neurontin] 300 MG capsule 600 mg PO TID Qty: 0 RF: 0 multivitamin [Multiple Vitamins] 1 EACH tablet 1 tab PO DAILY Qty: 0 RF: 0 zolpidem [Ambien] 10 MG tablet 10 mg PO HS PRN (Reason: Insomnia) Qty: 0 RF: 0 lorazepam 0.5 mg tablet 0.5 mg PO BID PRN (Reason: Anxiety) RF: 0 aspirin 81 mg tablet,chewable 81 mg PO DAILY RF: 0 hydrocodone-acetaminophen [Roxana] 5-325 mg tablet 1 - 2 tab PO Q6H PRN (Reason: pain) RF: 0 methocarbamol 500 mg tablet 1,000 mg PO Q6H PRN (Reason: Muscle Spasm) RF: 0 prochlorperazine maleate 10 mg tablet 10 mg PO Q6H PRN (Reason: Nausea) RF: 0 Humulin N NPH Insulin KwikPen 100 unit/mL (3 mL) insulin pen 15 unit SUBCUT BID RF: 0 tizanidine 4 mg capsule 4 mg PO TID PRN (Reason: Nausea) RF: 0 oxycodone-acetaminophen [Percocet] 7.5-325 mg tablet 1 tab PO Q6H PRN (Reason: pain) Qty: 12 RF: 0 cyclobenzaprine 10 mg tablet 10 mg PO TID PRN (Reason: muscle spasm) Qty: 15 RF: 0 amitriptyline 50 mg tablet 150 mg PO BEDTIME RF: 0 potassium chloride 20 mEq tablet,ER particles/crystals 20 meq PO QNOON RF: 0 lisinopril 10 mg tablet 10 mg PO DAILY RF: 0 omeprazole 20 mg capsule,delayed release(DR/EC) 20 mg PO DAILY RF: 0 ondansetron 4 mg tablet,disintegrating 1 tab Translingual Q6H PRN (Reason: Nausea) RF: 0 Probiotic 1 tab PO BID RF: 0 vitamin E 1 cap PO DAILY RF: 0 ciprofloxacin HCl 500 mg tablet 500 mg PO BID Qty: 20 RF: 0 oxycodone-acetaminophen [Percocet] 7.5-325 mg tablet 1 tab PO .Q6-8hrs PRN (Reason: pain) Qty: 10 RF: 0 tramadol 50 mg tablet 50 mg PO Q8H PRN (Reason: pain) Qty: 10 RF: 0 Referrals: Fadi Ko DO [Primary Care Provider] -
[2019-08-02 06:22] LABS: Add Manual Diff / Slide Review NO; Basophils Absolute Auto 200 /uL (0-100); Basophils Percent Auto 1.4 % (0-2); Eosinophils Absolute Auto 300 /uL (0-450); Eosinophils Percent Auto 2.7 % (2-4); Hematocrit 36.4 % (36-46); Hemoglobin 12.4 g/dL (12.0-16.0); Lymphocytes Absolute Auto 4400 /uL (1100-4500); Lymphocytes Percent Auto 40.5 % (25-40); Mean Corpuscular HGB Conc 34.1 % (30-36); Mean Corpuscular Hemoglobin 33.3 PG (26-34); Mean Corpuscular Volume 97.4 fL (80-100); Monocytes Absolute Auto 700 /uL (0-900); Monocytes Percent Auto 6.7 % (3-14); Neutrophils Absolute Auto 5300 /uL (1500-7000); Neutrophils Percent Auto 48.7 % (50-75); Platelet Count 400 X10^3/uL (150-400); Red Blood Cell Count 3.73 X10^6/uL (4.0-5.2); Red Cell Distribution Width 15.1 % (11.6-14.8); White Blood Cell Count 10.8 X10^3/uL (4.5-11.0)
[2019-08-02] MEDS: ONDANSETRON 4 MG/2 ML INJ IV (06:25)
[2019-08-02] MEDS: HYDROMORPHONE 0.5 MG INJ IV (06:28)
[2019-08-02] MEDS: SODIUM CHLORIDE 0.9% 1,000 ML 1000 ML IV (06:28)
[2019-08-02] MEDS: PANTOPRAZOLE 40 MG VIAL IV (06:28)
[2019-08-02 06:33] LABS: Blood Urea Nitrogen 15 mg/dL (7-17); Calcium 9.7 mg/dL (8.4-10.2); Carbon Dioxide 23 mmol/L (22-32); Chloride 109 mmol/L (98-107); Estimated Glomerular Filt Rate > 60.0 mL/min (>60); Glucose 47 mg/dL (70-100); HEMOLYSIS < 15 (0-50); Potassium 3.8 mmol/L (3.4-5.1); Sodium 139 mmol/L (137-145)
[2019-08-02] MEDS: MAG HYDROX/ALUMINUM/SIMETH SUS 20 ML, LIDOCAINE VISCOUS 2% 15 ML PO (07:02)
[2019-08-02] MEDS: DEXTROSE 50 % IN WATER 25 GM/50 ML SYRINGE IV (07:49)
[2019-08-02 07:53] VITALS: BP 145/66; PULSE 90; RESP 18; O2SAT 99
== END 2019-08-02 08:40 | disposition home or self-care (01) ==
PROVIDERS: Emergency Provider Emergency Medicine; PCP Family Medicine
DX: E16.2 Hypoglycemia, unspecified (principal); M25.512 Pain in left shoulder; K29.70 Gastritis, unspecified, without bleeding; R06.02 Shortness of breath
CPT/HCPCS: 36415; 71045; 80048; 82962; 85025; 93005; 96361; 96374; 96375; 99284; C9113; J1170; J2405

== ENCOUNTER 2019-08-10 12:19 | Emergency (ER) | payer OTHER, SELFPAY ==
[2019-08-10 12:25] VITALS: BP 161/77; PULSE 108; RESP 14; TEMP 36.8; O2SAT 100
--- NOTE | 2019-08-10 12:29 | ED.NAVMDI ---
HPI - Nausea/Vomiting/Diarrhea General Chief complaint: Nausea/Vomiting/Diarrhea Stated complaint: NOT HOLDING FLUIDS DOWN,DIARRHEA X2 DAYS Time Seen by Provider: 08/10/19 12:25 Source: patient and old records reviewed Limitations: no limitations History of Present Illness HPI Narrative: This is a 54-year-old female comes to the emergency department with complaint of abdominal pain is epigastric and mid abdominal. Diarrhea for the last 2-3 days. Patient has, chronic pain, anxiety and a fairly recent left proximal humeral fracture. She was hospitalized at the end of May for urosepsis and transferred to [facility]. She was taking excessive amounts of Motrin which she has since stopped but states she has been continuing with Tylenol 1-2 tablets every 4 hours [id number] and attempt to avoid narcotic pain medicine. And was seen early in July with epigastric discomfort and put on Protonix which had been increased to twice a day regimen. She has not had fevers, no cold cough or congestion. She states she is not having any vomiting. She states no black or bloody stools. She states every time she eats or drinks something she will have a small watery stool. She has had some decrease in her urine output in the last 24 hours although she has been making urine. She was in contact with her primary care who asked her to come to the hospital for evaluation. Related Data Home Medications Medication Instructions Recorded Confirmed albuterol sulfate [Proventil HFA] 2 puff INH Q4HP PRN #0 01/08/13 10/04/18 hydroxyzine HCl 25 mg PO TID PRN #0 01/08/13 05/17/19 magnesium oxide 400 mg PO BEDTIME #0 tab 01/08/13 05/17/19 duloxetine 60 mg PO DAILY #0 07/04/17 05/17/19 gabapentin [Neurontin] 600 mg PO TID #0 07/04/17 05/17/19 multivitamin [Multiple Vitamins] 1 tab PO DAILY #0 07/04/17 10/04/18 zolpidem [Ambien] 10 mg PO HS PRN #0 07/04/17 05/17/19 Probiotic 1 tab PO BID 09/26/17 10/04/18 amitriptyline 150 mg PO BEDTIME 09/26/17 05/17/19 lisinopril 10 mg PO DAILY 09/26/17 05/17/19 omeprazole 20 mg PO DAILY 09/26/17 05/17/19 ondansetron 1 tab TRANSLINGUAL Q6H PRN 09/26/17 10/04/18 potassium chloride 20 meq PO QNOON 09/26/17 05/17/19 vitamin E 1 cap PO DAILY 09/26/17 09/26/17 lorazepam 0.5 mg PO BID PRN 05/30/18 05/17/19 aspirin 81 mg PO DAILY 06/13/18 10/04/18 hydrocodone-acetaminophen [Selden] 1 - 2 tab PO Q6H PRN 10/04/18 10/04/18 insulin NPH isoph U-100 human 15 unit SUBCUT BID 05/17/19 05/17/19 [Humulin N NPH Insulin KwikPen] methocarbamol 1,000 mg PO Q6H PRN 05/17/19 05/17/19 prochlorperazine maleate 10 mg PO Q6H PRN 05/17/19 05/17/19 tizanidine 4 mg PO TID PRN 05/17/19 05/17/19 Previous Rx's Medication Instructions Recorded ciprofloxacin HCl 500 mg PO BID #20 tab 06/17/19 cyclobenzaprine 10 mg PO TID PRN #15 tab 06/22/19 oxycodone-acetaminophen [Percocet] 1 tab PO Q6H PRN #12 tab 06/22/19 oxycodone-acetaminophen [Percocet] 1 tab PO .Q6-8hrs PRN #10 tab 06/23/19 tramadol 50 mg PO Q8H PRN #10 tab 06/23/19 hydrocodone-acetaminophen 1 tab PO Q4-6H PRN #10 tab 08/02/19 nitrofurantoin macrocrystal 100 mg PO BID #20 cap 08/10/19 tramadol [Ultram] 50 mg PO Q6H PRN #10 tab 08/10/19 Allergies Allergy/AdvReac Type Severity Reaction Status Date / Time mupirocin Allergy Unknown Verified 08/10/19 12:29 naproxen Allergy Unknown Verified 08/10/19 12:29 Penicillins Allergy Unknown SINCE Verified 08/10/19 12:29 CHILDHOOD droperidol AdvReac Unknown Verified 08/10/19 12:29 fenofibrate [FENOFIBRATE] AdvReac Unknown Verified 08/10/19 12:29 ibuprofen AdvReac Unknown NAUSEA Verified 08/10/19 12:29 metformin [METFORMIN] AdvReac Unknown Verified 08/10/19 12:29 metoclopramide AdvReac Unknown BECAME Verified 08/10/19 12:29 JITTERY AND ANXIOUS nitrofurantoin AdvReac Unknown NAUSEA Verified 08/10/19 12:29 Review of Systems Review of Systems ROS Unobtainable: All systems reviewed & are unremarkable except as noted in HPI and below Patient History Medical History Anxiety (Chronic) Closed fracture of left humerus (Inactive) Endometriosis (Chronic) Fibromyalgia (Chronic) Heart palpitations (Chronic) History of asthma (Chronic) History of chronic hypertension (Chronic) History of COPD (Chronic) History of depression (Chronic) History of gastrointestinal ulcer (Chronic) History of kidney stones (Chronic) History of migraine (Chronic) History of panic attacks (Chronic) History of type 2 diabetes mellitus (Chronic) Interstitial cystitis (Chronic) UTI (urinary tract infection) (Chronic) Social History Smoking Status: Current every day smoker Smoking Status: Current every day smoker alcohol intake frequency: a few times a week Substance Use Type: former substance user and marijuana Exam Narrative Exam Narrative: GENERAL: Alert and oriented x three, thin female, nontoxic. HEENT: Head normocephalic, atraumatic, EOMI, pupils reactive, face symmetric, moist mucous membranes NECK: Supple, full range of motion CARDIOVASCULAR: Regular rate and rhythm without murmurs, rubs or gallops. RESPIRATORY: Breath sounds equal bilaterally, no wheezes rales or rhonchi. ABDOMEN: Soft, positive for epigastric and periumbilical abdominal tenderness. Normoactive bowel sounds all 4 quadrants. No guarding or rebound, rigidity, no mass. : No CVA tenderness. Patient has a right-sided urostomy site appears clean dry and intact. There is light yellow urine in the bag. EXTREMITIES: Normal range of motion, no clubbing or edema. Neurovascularly intact NEUROLOGICAL: Cranial nerves II through XII grossly intact. Moving all extremities SKIN: Warm, dry, no petechiae, no rashes or lesions. Initial Vital Signs Initial Vital Signs: Vital Signs Temperature 98.2 F 08/10/19 12:25 Pulse Rate 108 H 08/10/19 12:25 Respiratory Rate 14 08/10/19 12:25 Blood Pressure 161/77 H 08/10/19 12:25 Pulse Oximetry 100 08/10/19 12:25 Course Orders Ordered: ED Orders 08/10/19 13:00 Acetaminophen Stat Complete Blood Count AUTO DIFF Stat Comprehensive Metabolic Panel Stat Lactate (Lactic Acid) Stat Lipase Stat Partial Thromboplastin Time Stat Prothrombin Time INR Stat Thyroid Stimulating Hormone Stat 08/10/19 13:10 Urinalysis and Microscopic Stat Urine Culture Stat Discontinued Medications Hydromorphone HCl (Dilaudid) 0.5 mg IV NOW ONE Stop: 08/10/19 12:45 Last Admin: 08/10/19 13:28 Dose: 0.5 mg Documented by: ANIBAL Sodium Chloride (Normal Saline 0.9%) 1,000 mls @ 1,000 mls/hr IV BOLUS ONE Stop: 08/10/19 13:37 Last Infusion: 08/10/19 15:06 Dose: 0 mls/hr Documented by: Admin: 08/10/19 13:27 Dose: 1,000 mls/hr Documented by: ANIBAL Ondansetron HCl (Zofran) 4 mg IV NOW ONE Stop: 08/10/19 12:39 Last Admin: 08/10/19 13:28 Dose: 4 mg Documented by: ANIBAL Pantoprazole Sodium (Protonix) 80 mg IV NOW ONE Stop: 08/10/19 12:45 Last Admin: 08/10/19 13:29 Dose: 80 mg Documented by: ANIBAL Vital Signs Vital signs: Vital Signs - 8 hr 08/10/19 12:25 08/10/19 14:07 08/10/19 15:07 Temperature 98.2 F Pulse Rate 108 H 96 H 93 H Respiratory Rate 14 12 22 Blood Pressure 161/77 H Blood Pressure [Right Arm] 160/81 H 160/81 H Pulse Oximetry 100 98 96 MDM - Nausea/Vomiting/Diarrhea Lab Data Attestation: I reviewed the patient's lab results. Result diagrams: 08/10/19 13:00 08/10/19 13:00 Labs: Lab Results 08/10/19 08/10/19 08/10/19 Range/Units 13:00 13:00 13:00 WBC 7.6 (4.5-11.0) X10^3/uL RBC 3.73 L (4.0-5.2) X10^6/uL Hgb 12.4 (12.0-16.0) g/dL Hct 36.7 (36-46) % MCV 98.5 (80-100) fL MCH 33.3 (26-34) PG MCHC 33.8 (30-36) % RDW 15.0 H (11.6-14.8) % Plt Count 429 H (150-400) X10^3/uL Neut % (Auto) 53.6 (50-75) % Lymph % (Auto) 36.2 (25-40) % [place] % (Auto) 8.2 (3-14) % Eos % (Auto) 1.0 L (2-4) % Baso % (Auto) 1.0 (0-2) % Neut # (Auto) 4100 (7542-6674) /uL Lymph # (Auto) 2700 (3612-7218) /uL [place] # (Auto) 600 (0-900) /uL Eos # (Auto) 100 (0-450) /uL Baso # (Auto) 100 (0-100) /uL PT (10.1-12.7) SECONDS INR (0.9-1.3) APTT (26.4-36.2) SECONDS Sodium 134 L (137-145) mmol/L Potassium 4.7 (3.4-5.1) mmol/L Chloride 106 (98-107) mmol/L Carbon Dioxide 19 L (22-32) mmol/L BUN 13 (7-17) mg/dL Creatinine 0.52 (0.52-1.04) mg/dL Estimated GFR > 60.0 (>60) mL/min BUN/Creatinine Ratio 25.0 H (6-22) Glucose 220 H D (70-100) mg/dL Lactate (0.7-2.1) mmol/L Calcium 9.5 (8.4-10.2) mg/dL Total Bilirubin 0.3 (0.2-1.3) mg/dL AST 59 H (14-36) IU/L ALT 38 H (<35) IU/L Alkaline Phosphatase 167 H (38-126) U/L Total Protein 7.5 (6.3-8.2) g/dL Albumin 4.1 (3.5-5.0) g/dL Globulin 3.4 (1.7-4.1) g/dL Albumin/Globulin Ratio 1.2 (1.0-2.8) Lipase 18 L (23-300) U/L TSH 3.19 (0.47-4.68) uIU/mL Urine Color Urine Appearance Urine pH (4.5-8.0) Ur Specific [place] (1.000-1.035) Urine Protein (Negative) Urine Glucose (UA) (Negative) g/dL Urine Ketones (NEGATIVE) Urine Occult Blood (Negative) Urine Nitrate (Negative) Urine Bilirubin (NEGATIVE) Urine Urobilinogen (0.2) E.U./dL Ur Leukocyte Esterase (NEGATIVE) Urine RBC (0-5/HPF) Urine WBC (0-5/HPF) Ur Squamous Epith Cells (0-5/HPF) Amorphous Sediment Urine Bacteria (None) Ur Culture Indicated? Acetaminophen (10-30) ug/mL 08/10/19 08/10/19 08/10/19 Range/Units 13:00 13:00 13:00 WBC (4.5-11.0) X10^3/uL RBC (4.0-5.2) X10^6/uL Hgb (12.0-16.0) g/dL Hct (36-46) % MCV (80-100) fL MCH (26-34) PG MCHC (30-36) % RDW (11.6-14.8) % Plt Count (150-400) X10^3/uL Neut % (Auto) (50-75) % Lymph % (Auto) (25-40) % [place] % (Auto) (3-14) % Eos % (Auto) (2-4) % Baso % (Auto) (0-2) % Neut # (Auto) (2878-9326) /uL Lymph # (Auto) (7467-9865) /uL [place] # (Auto) (0-900) /uL Eos # (Auto) (0-450) /uL Baso # (Auto) (0-100) /uL PT 10.8 (10.1-12.7) SECONDS INR 0.9 (0.9-1.3) APTT 31 (26.4-36.2) SECONDS Sodium (137-145) mmol/L Potassium (3.4-5.1) mmol/L Chloride (98-107) mmol/L Carbon Dioxide (22-32) mmol/L BUN (7-17) mg/dL Creatinine (0.52-1.04) mg/dL Estimated GFR (>60) mL/min BUN/Creatinine Ratio (6-22) Glucose (70-100) mg/dL Lactate 1.2 (0.7-2.1) mmol/L Calcium (8.4-10.2) mg/dL Total Bilirubin (0.2-1.3) mg/dL AST (14-36) IU/L ALT (<35) IU/L Alkaline Phosphatase (38-126) U/L Total Protein (6.3-8.2) g/dL Albumin (3.5-5.0) g/dL Globulin (1.7-4.1) g/dL Albumin/Globulin Ratio (1.0-2.8) Lipase (23-300) U/L TSH (0.47-4.68) uIU/mL Urine Color Urine Appearance Urine pH (4.5-8.0) Ur Specific [place] (1.000-1.035) Urine Protein (Negative) Urine Glucose (UA) (Negative) g/dL Urine Ketones (NEGATIVE) Urine Occult Blood (Negative) Urine Nitrate (Negative) Urine Bilirubin (NEGATIVE) Urine Urobilinogen (0.2) E.U./dL Ur Leukocyte Esterase (NEGATIVE) Urine RBC (0-5/HPF) Urine WBC (0-5/HPF) Ur Squamous Epith Cells (0-5/HPF) Amorphous Sediment Urine Bacteria (None) Ur Culture Indicated? Acetaminophen < 10 L (10-30) ug/mL /15/20 Range/Units 13:10 WBC (4.5-11.0) X10^3/uL RBC (4.0-5.2) X10^6/uL Hgb (12.0-16.0) g/dL Hct (36-46) % MCV (80-100) fL MCH (26-34) PG MCHC (30-36) % RDW (11.6-14.8) % Plt Count (150-400) X10^3/uL Neut % (Auto) (50-75) % Lymph % (Auto) (25-40) % [place] % (Auto) (3-14) % Eos % (Auto) (2-4) % Baso % (Auto) (0-2) % Neut # (Auto) (1728-1299) /uL Lymph # (Auto) (9981-3028) /uL [place] # (Auto) (0-900) /uL Eos # (Auto) (0-450) /uL Baso # (Auto) (0-100) /uL PT (10.1-12.7) SECONDS INR (0.9-1.3) APTT (26.4-36.2) SECONDS Sodium (137-145) mmol/L Potassium (3.4-5.1) mmol/L Chloride (98-107) mmol/L Carbon Dioxide (22-32) mmol/L BUN (7-17) mg/dL Creatinine (0.52-1.04) mg/dL Estimated GFR (>60) mL/min BUN/Creatinine Ratio (6-22) Glucose (70-100) mg/dL Lactate (0.7-2.1) mmol/L Calcium (8.4-10.2) mg/dL Total Bilirubin (0.2-1.3) mg/dL AST (14-36) IU/L ALT (<35) IU/L Alkaline Phosphatase (38-126) U/L Total Protein (6.3-8.2) g/dL Albumin (3.5-5.0) g/dL Globulin (1.7-4.1) g/dL Albumin/Globulin Ratio (1.0-2.8) Lipase (23-300) U/L TSH (0.47-4.68) uIU/mL Urine Color Yellow Urine Appearance Clear Urine pH 7.0 (4.5-8.0) Ur Specific [place] 1.015 (1.000-1.035) Urine Protein Trace H (Negative) Urine Glucose (UA) Negative (Negative) g/dL Urine Ketones Negative (NEGATIVE) Urine Occult Blood Trace-lysed (Negative) Urine Nitrate Positive H (Negative) Urine Bilirubin Negative (NEGATIVE) Urine Urobilinogen 0.2 (0.2) E.U./dL Ur Leukocyte Esterase 2+ H (NEGATIVE) Urine RBC 1-5/hpf (0-5/HPF) Urine WBC 5-10/hpf H (0-5/HPF) Ur Squamous Epith Cells 0-1 /hpf (0-5/HPF) Amorphous Sediment 1+ Urine Bacteria Moderate (10-30) H (None) Ur Culture Indicated? Specimen cultured Acetaminophen (10-30) ug/mL MDM Narrative Medical decision making narrative: Patient's labs show white count, platelets of 429. coags are normal, chemistry shows a sodium 134, CO2 of 19 with a glucose of 220. Normal renal function otherwise normal electrolytes. Patient's AST is 59, ALT is 38 with an alk-phos of 167 which is consistent with multiple priors over the last several months. Lipase is low at 18 with normal TSH. Patient Tylenol level was ordered as she has been taking Tylenol frequently although it is unclear if she has truly having excessive amounts. She is taking 1-2 every 4 hours of what sounds like 325 mg Tylenol. Her Tylenol level today is less than 10 and with no changes to her coagulation profile had her liver enzymes being consistent with priors in the past my suspicion for chronic Tylenol overdose is low. Patient's UA shows nitrates 2+ leuks and 5-10 wbc's. She has moderate bacteria and specimen has been cultured. Patient's prior cultures were evaluated has had intermittent positive cultures and negative cultures. Discussed with patient and she looks quite and start antibiotics. Her allergies state nitrofurantoin although her prior cultures states this would probably be the best coverage. She states mostly nausea and she has antinausea medications at home. We also discussed decreasing her Tylenol intake or stopping it. We did do a short prescription of Ultram for pain control for her left humeral fracture. Discussed patient's other labs and findings today she feels comfortable with this plan at this time. Discharge Plan Departure Patient Disposition: Home Clinical Impression: Abdominal pain, Diarrhea, UTI (urinary tract infection) Discharge Date/Time: 08/10/19 15:15 Instructions: Diarrhea Activity Restrictions/Additional Instructions: Follow up with your physician next week. Todays labs show urinalysis concerning for infection. Urine culture is pending and takes about 48 hours to result if there is resistance you should expect a call. I would recommend no more than 3000mg tylenol/acetaminophen in a 24 hour period. Continue to avoid all NSAIDs. Continue your home medications as prescribed. Prescriptions sent to [facility] in [place]. Take pain medication as prescribed this medication can make you sleepy do not drive, perform hazardous activities make any major decisions while taking it. Return for fevers greater than 100.4F, new chest pain, shortness of breath, increasing abdominal pain, persistent vomiting, black or bloody stools, increasing frequency or amount of diarrhea, continue decrease in urine output or other new or concerning changes. Prescriptions: New nitrofurantoin macrocrystal 100 mg capsule 100 mg PO BID Qty: 20 RF: 0 tramadol [Ultram] 50 mg tablet 50 mg PO Q6H PRN (Reason: pain) Qty: 10 RF: 0 No Action hydroxyzine HCl 25 MG tablet 25 mg PO TID PRN (Reason: Anxiety) Qty: 0 RF: 0 magnesium oxide 400 MG tablet 400 mg PO BEDTIME Qty: 0 RF: 0 albuterol sulfate [Proventil HFA] 90 MCG/PUFF HFA aerosol inhaler 2 puff INH Q4HP PRN (Reason: Shortness Of Breath) Qty: 0 RF: 0 duloxetine 60 MG capsule,delayed release(DR/EC) 60 mg PO DAILY Qty: 0 RF: 0 gabapentin [Neurontin] 300 MG capsule 600 mg PO TID Qty: 0 RF: 0 multivitamin [Multiple Vitamins] 1 EACH tablet 1 tab PO DAILY Qty: 0 RF: 0 zolpidem [Ambien] 10 MG tablet 10 mg PO HS PRN (Reason: Insomnia) Qty: 0 RF: 0 lorazepam 0.5 mg tablet 0.5 mg PO BID PRN (Reason: Anxiety) RF: 0 aspirin 81 mg tablet,chewable 81 mg PO DAILY RF: 0 hydrocodone-acetaminophen [Selden] 5-325 mg tablet 1 - 2 tab PO Q6H PRN (Reason: pain) RF: 0 methocarbamol 500 mg tablet 1,000 mg PO Q6H PRN (Reason: Muscle Spasm) RF: 0 prochlorperazine maleate 10 mg tablet 10 mg PO Q6H PRN (Reason: Nausea) RF: 0 Humulin N NPH Insulin KwikPen 100 unit/mL (3 mL) insulin pen 15 unit SUBCUT BID RF: 0 tizanidine 4 mg capsule 4 mg PO TID PRN (Reason: Nausea) RF: 0 oxycodone-acetaminophen [Percocet] 7.5-325 mg tablet 1 tab PO Q6H PRN (Reason: pain) Qty: 12 RF: 0 cyclobenzaprine 10 mg tablet 10 mg PO TID PRN (Reason: muscle spasm) Qty: 15 RF: 0 amitriptyline 50 mg tablet 150 mg PO BEDTIME RF: 0 potassium chloride 20 mEq tablet,ER particles/crystals 20 meq PO QNOON RF: 0 lisinopril 10 mg tablet 10 mg PO DAILY RF: 0 omeprazole 20 mg capsule,delayed release(DR/EC) 20 mg PO DAILY RF: 0 ondansetron 4 mg tablet,disintegrating 1 tab Translingual Q6H PRN (Reason: Nausea) RF: 0 Probiotic 1 tab PO BID RF: 0 vitamin E 1 cap PO DAILY RF: 0 ciprofloxacin HCl 500 mg tablet 500 mg PO BID Qty: 20 RF: 0 oxycodone-acetaminophen [Percocet] 7.5-325 mg tablet 1 tab PO .Q6-8hrs PRN (Reason: pain) Qty: 10 RF: 0 tramadol 50 mg tablet 50 mg PO Q8H PRN (Reason: pain) Qty: 10 RF: 0 hydrocodone-acetaminophen 5-325 mg tablet 1 tab PO Q4-6H PRN (Reason: pain) Qty: 10 RF: 0 Referrals: Fadi Ko DO [Primary Care Provider] -
[2019-08-10 13:19] LABS: Add Manual Diff / Slide Review NO; Basophils Absolute Auto 100 /uL (0-100); Eosinophils Absolute Auto 100 /uL (0-450); Hematocrit 36.7 % (36-46); Hemoglobin 12.4 g/dL (12.0-16.0); Lymphocytes Absolute Auto 2700 /uL (1100-4500); Lymphocytes Percent Auto 36.2 % (25-40); Mean Corpuscular HGB Conc 33.8 % (30-36); Mean Corpuscular Hemoglobin 33.3 PG (26-34); Mean Corpuscular Volume 98.5 fL (80-100); Monocytes Absolute Auto 600 /uL (0-900); Monocytes Percent Auto 8.2 % (3-14); Neutrophils Absolute Auto 4100 /uL (1500-7000); Neutrophils Percent Auto 53.6 % (50-75); Platelet Count 429 X10^3/uL (150-400); Red Blood Cell Count 3.73 X10^6/uL (4.0-5.2); White Blood Cell Count 7.6 X10^3/uL (4.5-11.0)
[2019-08-10 13:26] LABS: Appearance Urine UA CLEAR; Bilirubin Urine UA NEGATIVE (NEGATIVE); Color Urine UA YELLOW; Glucose Urine UA NEGATIVE (Negative); Ketones Urine UA NEGATIVE (NEGATIVE); Leukocyte Esterase Urine UA 2+ (NEGATIVE); Nitrite Urine UA POSITIVE (Negative); Occult Blood Urine UA TRACE-LYSED (Negative); Protein Urine UA TRACE (Negative); Specific Gravity Urine UA 1.015 (1.000-1.035); Urobilinogen Urine UA 0.2 E.U./dL (0.2)
[2019-08-10] MEDS: SODIUM CHLORIDE 0.9% 1,000 ML 1000 ML IV (13:27)
[2019-08-10] MEDS: HYDROMORPHONE 0.5 MG INJ IV (13:28)
[2019-08-10] MEDS: ONDANSETRON 4 MG/2 ML INJ IV (13:28)
[2019-08-10] MEDS: PANTOPRAZOLE 40 MG VIAL 80 MG IV (13:29)
[2019-08-10 13:34] LABS: INR 0.9 (0.9-1.3); Prothrombin Time 10.8 SECONDS (10.1-12.7)
[2019-08-10 13:36] LABS: RBC Urine 1-5/HPF (0-5/HPF); Squamous Epithelial Cell Urine 0-1 /HPF (0-5/HPF); WBC Urine 5-10/HPF (0-5/HPF)
[2019-08-10 13:36] LABS: PTT Partial Thromboplastin Tim 31 SECONDS (26.4-36.2)
[2019-08-10 13:37] LABS: Amorphous Sediment Urine 1+; Bacteria Urine Moderate (10-30); Culture Indicated Urine Specimen Cultured
[2019-08-10 13:40] LABS: Lactate (Lactic Acid) 1.2 mmol/L (0.7-2.1)
[2019-08-10 13:41] LABS: Acetaminophen < 10 ug/mL (10-30); Alanine Aminotransferase 38 IU/L (<35); Albumin 4.1 g/dL (3.5-5.0); Albumin Globulin Ratio 1.2 (1.0-2.8); Alkaline Phosphatase 167 U/L (38-126); Aspartate Aminotransferase 59 IU/L (14-36); Bilirubin Total 0.3 mg/dL (0.2-1.3); Blood Urea Nitrogen 13 mg/dL (7-17); Calcium 9.5 mg/dL (8.4-10.2); Carbon Dioxide 19 mmol/L (22-32); Chloride 106 mmol/L (98-107); Estimated Glomerular Filt Rate > 60.0 mL/min (>60); Globulin 3.4 g/dL (1.7-4.1); Glucose 220 mg/dL (70-100); HEMOLYSIS < 15 (0-50); Lipase 18 U/L (23-300); Potassium 4.7 mmol/L (3.4-5.1); Sodium 134 mmol/L (137-145); Total Protein 7.5 g/dL (6.3-8.2)
[2019-08-10 14:07] VITALS: BP 160/81; PULSE 96; RESP 12; O2SAT 98
[2019-08-10 14:14] LABS: Thyroid Stimulating Hormone 3.19 uIU/mL (0.47-4.68)
[2019-08-10 15:07] VITALS: BP 160/81; PULSE 93; RESP 22; O2SAT 96
== END 2019-08-10 15:15 | disposition home or self-care (01) ==
PROVIDERS: Emergency Provider Emergency Medicine; PCP Family Medicine
DX: R10.13 Epigastric pain (principal); R19.7 Diarrhea, unspecified; N39.0 Urinary tract infection, site not specified
CPT/HCPCS: 36415; 80053; 80329; 81001; 83605; 83690; 84443; 85025; 85610; 85730; 87077; 87086; 87186; 96361; 96374; 96375; 99284; C9113; G0480; J1170; J2405

== ENCOUNTER 2019-08-13 14:00 | Emergency (ER) | payer OTHER, SELFPAY ==
[2019-08-13 14:08] VITALS: BP 131/80; PULSE 116; RESP 20; TEMP 36.4; O2SAT 98; BMI 15.5
--- NOTE | 2019-08-13 14:15 | ED.GENADULT ---
HPI - General Adult General Chief complaint: Syncope Stated complaint: light headed today,fell Time Seen by Provider: 08/13/19 14:02 Source: patient and family Mode of arrival: Wheelchair Limitations: no limitations History of Present Illness HPI narrative: 54-year-old female brought in by private vehicle with her at bedside for evaluation of 3 episodes of syncope today. She states the last 1 she did hit her head. She also landed on her left shoulder. She has a previous diagnosis of a left proximal humerus fracture. She is in a sling. She states that the 3 episodes today were very similar. They occurred when she was standing up. She states that the last time she tried to put her right foot back to keep her from falling but before she could sit down she fell over. She describes a headache from the fall but that has somewhat improved since the incident. The syncopal episodes today are not new. She has been having them for ?some time ?now. She states that they always happen with change of position. She is normally able to sit down and then the symptoms improve/resolve. She has fallen in the past because of these. She states that around the time she does not have chest pain or palpitations. Does not have shortness of breath. Does not have a headache or ringing in her ears. She states that she does feel like things ?go black ?there is no report of any seizure-like activity. No loss of bowel or bladder. She has been ambulatory since the last event where she did fall. Related Data Home Medications Medication Instructions Recorded Confirmed albuterol sulfate [Proventil HFA] 2 puff INH Q4HP PRN #0 01/08/13 10/04/18 hydroxyzine HCl 25 mg PO TID PRN #0 01/08/13 05/17/19 magnesium oxide 400 mg PO BEDTIME #0 tab 01/08/13 05/17/19 duloxetine 60 mg PO DAILY #0 07/04/17 05/17/19 gabapentin [Neurontin] 600 mg PO TID #0 07/04/17 05/17/19 multivitamin [Multiple Vitamins] 1 tab PO DAILY #0 07/04/17 10/04/18 zolpidem [Ambien] 10 mg PO HS PRN #0 07/04/17 05/17/19 Probiotic 1 tab PO BID 09/26/17 10/04/18 amitriptyline 150 mg PO BEDTIME 09/26/17 05/17/19 lisinopril 10 mg PO DAILY 09/26/17 05/17/19 omeprazole 20 mg PO DAILY 09/26/17 05/17/19 ondansetron 1 tab TRANSLINGUAL Q6H PRN 09/26/17 10/04/18 potassium chloride 20 meq PO QNOON 09/26/17 05/17/19 vitamin E 1 cap PO DAILY 09/26/17 09/26/17 lorazepam 0.5 mg PO BID PRN 05/30/18 05/17/19 aspirin 81 mg PO DAILY 06/13/18 10/04/18 hydrocodone-acetaminophen [[place]] 1 - 2 tab PO Q6H PRN 10/04/18 10/04/18 insulin NPH isoph U-100 human 15 unit SUBCUT BID 05/17/19 05/17/19 [Humulin N NPH Insulin KwikPen] methocarbamol 1,000 mg PO Q6H PRN 05/17/19 05/17/19 prochlorperazine maleate 10 mg PO Q6H PRN 05/17/19 05/17/19 tizanidine 4 mg PO TID PRN 05/17/19 05/17/19 Previous Rx's Medication Instructions Recorded ciprofloxacin HCl 500 mg PO BID #20 tab 06/17/19 cyclobenzaprine 10 mg PO TID PRN #15 tab 06/22/19 oxycodone-acetaminophen [Percocet] 1 tab PO Q6H PRN #12 tab 06/22/19 oxycodone-acetaminophen [Percocet] 1 tab PO .Q6-8hrs PRN #10 tab 06/23/19 tramadol 50 mg PO Q8H PRN #10 tab 06/23/19 hydrocodone-acetaminophen 1 tab PO Q4-6H PRN #10 tab 08/02/19 nitrofurantoin macrocrystal 100 mg PO BID #20 cap 08/10/19 tramadol [Ultram] 50 mg PO Q6H PRN #10 tab 08/10/19 Allergies Allergy/AdvReac Type Severity Reaction Status Date / Time mupirocin Allergy Unknown Verified 08/10/19 12:29 naproxen Allergy Unknown Verified 08/10/19 12:29 Penicillins Allergy Unknown SINCE Verified 08/10/19 12:29 CHILDHOOD droperidol AdvReac Unknown Verified 08/10/19 12:29 fenofibrate [FENOFIBRATE] AdvReac Unknown Verified 08/10/19 12:29 ibuprofen AdvReac Unknown NAUSEA Verified 08/10/19 12:29 metformin [METFORMIN] AdvReac Unknown Verified 08/10/19 12:29 metoclopramide AdvReac Unknown BECAME Verified 08/10/19 12:29 JITTERY AND ANXIOUS nitrofurantoin AdvReac Unknown NAUSEA Verified 08/10/19 12:29 Review of Systems Constitutional Constitutional: Denies fever(s) and Denies headache(s) Eyes Eyes: Denies change in vision and Denies diplopia ENT Ears, Nose, Mouth, and Throat: Denies headache(s), Denies sinus pressure and Denies sore throat Cardiovascular Cardiovascular: Denies chest pain, Reports syncope, Denies rapid heart rate, Denies edema, Denies irregular heart rhythm, Denies palpitations and Denies dyspnea Respiratory Respiratory: Denies cough and Denies dyspnea Gastrointestinal Gastrointestinal: Denies abdominal pain, Denies nausea and Denies vomiting Genitourinary Genitourinary: Denies dysuria Musculoskeletal Musculoskeletal: Denies myalgias and Reports arthralgias (Left shoulder pain, right ankle pain) Integumentary/Breasts Skin/Breast: Denies lesions and Denies rash Neurologic Neurologic: Reports syncope and Denies headache(s) Endocrine Endocrine: Denies palpitations Hematologic/Lymphatic Hematologic/Lymphatic: Denies easy bleeding and Denies easy bruising Allergic/Immunologic Allergic/Immunologic: Denies urticaria Patient History Medical History Anxiety (Chronic) Closed fracture of left humerus (Inactive) Endometriosis (Chronic) Fibromyalgia (Chronic) Heart palpitations (Chronic) History of asthma (Chronic) History of chronic hypertension (Chronic) History of COPD (Chronic) History of depression (Chronic) History of gastrointestinal ulcer (Chronic) History of kidney stones (Chronic) History of migraine (Chronic) History of panic attacks (Chronic) History of type 2 diabetes mellitus (Chronic) Interstitial cystitis (Chronic) UTI (urinary tract infection) (Chronic) Social History Smoking Status: Current every day smoker Smoking Status: Current every day smoker alcohol intake frequency: a few times a week Substance Use Type: former substance user and marijuana Exam Initial Vital Signs Initial Vital Signs: Vital Signs Temperature 97.5 F L 08/13/19 14:08 Pulse Rate 116 H 08/13/19 14:08 Respiratory Rate 20 08/13/19 14:08 Blood Pressure 131/80 08/13/19 14:08 Pulse Oximetry 98 08/13/19 14:08 Const General: cooperative, healthy appearing, comfortable, well developed and well groomed Limitations: mental status not altered HENMT Head: normal to inspection and normocephalic Resp Effort & Inspection: normal respiratory effort Auscultation: clear to auscultation bilaterally Cardio Rate: tachycardic Rhythm: regular rhythm Pulses: radial pulses present GI Inspection: no incisions Palpation: No firm Skin Lesions: no lesions Rashes: no rashes Neuro General: alert, awake and oriented x3 Cognition: normal cognition Speech: speech normal Extrem General: capillary refill normal Other: Left shoulder in sling, bruise along medial aspect right ankle otherwise unremarkable Psych Appearance: grossly normal and well kempt Course Orders Ordered: ED Orders 08/13/19 14:13 EKG-12 Lead Stat 08/13/19 14:29 XR chest 1V Stat 08/13/19 15:05 Basic Metabolic Panel Stat Complete Blood Count AUTO DIFF Stat Ethanol (ETOH) Stat Lactate (Lactic Acid) Stat Procalcitonin Stat Discontinued Medications Sodium Chloride (Normal Saline 0.9%) 1,000 mls @ 1,000 mls/hr IV BOLUS ONE Stop: 08/13/19 15:11 Last Admin: 08/13/19 14:46 Dose: 1,000 mls/hr Documented by: MANUELA Tramadol HCl (Ultram) 50 mg PO NOW ONE Stop: 08/13/19 15:20 Last Admin: 08/13/19 15:29 Dose: 50 mg Documented by: MANUELA Vital Signs Vital signs: Vital Signs - 8 hr 08/13/19 14:08 08/13/19 14:55 08/13/19 15:34 Temperature 97.5 F L 98.7 F Pulse Rate 116 H 111 H Pulse Rate [Orthostatic Lying] Pulse Rate [Orthostatic Sitting] Pulse Rate [Orthostatic Standing] Respiratory Rate 20 18 Blood Pressure 131/80 Blood Pressure [Orthostatic Lying] Blood Pressure [Orthostatic Sitting] Blood Pressure [Orthostatic Standing] Blood Pressure [Right Arm] 131/80 Pulse Oximetry 98 100 08/13/19 16:47 Temperature Pulse Rate Pulse Rate [Orthostatic Lying] 111 H Pulse Rate [Orthostatic Sitting] 118 H Pulse Rate [Orthostatic Standing] 112 H Respiratory Rate Blood Pressure Blood Pressure [Orthostatic Lying] 181/108 H Blood Pressure [Orthostatic Sitting] 179/121 H Blood Pressure [Orthostatic Standing] 181/90 H Blood Pressure [Right Arm] Pulse Oximetry Medical Decision Making Lab Data Lab results reviewed: Yes I reviewed the patient's lab results. Result diagrams: 08/13/19 15:05 08/13/19 15:05 Labs: Lab Results 08/13/19 08/13/19 08/13/19 Range/Units 15:05 15:05 15:05 WBC 10.0 (4.5-11.0) X10^3/uL RBC 4.13 (4.0-5.2) X10^6/uL Hgb 14.1 (12.0-16.0) g/dL Hct 40.9 (36-46) % MCV 99.0 (80-100) fL MCH 34.1 H (26-34) PG MCHC 34.4 (30-36) % RDW 14.9 H (11.6-14.8) % Plt Count 440 H (150-400) X10^3/uL Neut % (Auto) 59.8 (50-75) % Lymph % (Auto) 30.2 (25-40) % [place] % (Auto) 7.1 (3-14) % Eos % (Auto) 1.2 L (2-4) % Baso % (Auto) 1.7 (0-2) % Neut # (Auto) 6000 (3806-1480) /uL Lymph # (Auto) 3000 (6935-4712) /uL [place] # (Auto) 700 (0-900) /uL Eos # (Auto) 100 (0-450) /uL Baso # (Auto) 200 H (0-100) /uL Sodium 138 (137-145) mmol/L Potassium 4.3 (3.4-5.1) mmol/L Chloride 107 (98-107) mmol/L Carbon Dioxide 20 L (22-32) mmol/L BUN 13 (7-17) mg/dL Creatinine 0.55 (0.52-1.04) mg/dL Estimated GFR > 60.0 (>60) mL/min BUN/Creatinine Ratio 23.6 H (6-22) Glucose 138 H (70-100) mg/dL Lactate (0.7-2.1) mmol/L Calcium 10.4 H (8.4-10.2) mg/dL Procalcitonin < 0.05 (<0.5) ng/mL Ethyl Alcohol < 10 ( - 10) mg/dL // Range/Units 15:05 WBC (4.5-11.0) X10^3/uL RBC (4.0-5.2) X10^6/uL Hgb (12.0-16.0) g/dL Hct (36-46) % MCV (80-100) fL MCH (26-34) PG MCHC (30-36) % RDW (11.6-14.8) % Plt Count (150-400) X10^3/uL Neut % (Auto) (50-75) % Lymph % (Auto) (25-40) % [place] % (Auto) (3-14) % Eos % (Auto) (2-4) % Baso % (Auto) (0-2) % Neut # (Auto) (4342-8415) /uL Lymph # (Auto) (9814-7929) /uL [place] # (Auto) (0-900) /uL Eos # (Auto) (0-450) /uL Baso # (Auto) (0-100) /uL Sodium (137-145) mmol/L Potassium (3.4-5.1) mmol/L Chloride (98-107) mmol/L Carbon Dioxide (22-32) mmol/L BUN (7-17) mg/dL Creatinine (0.52-1.04) mg/dL Estimated GFR (>60) mL/min BUN/Creatinine Ratio (6-22) Glucose (70-100) mg/dL Lactate 1.4 (0.7-2.1) mmol/L Calcium (8.4-10.2) mg/dL Procalcitonin (<0.5) ng/mL Ethyl Alcohol ( - 10) mg/dL Imaging Data Chest x-ray: Radiologist's Impression: [address] [address] XRay Report Signed Patient: Melvi Gibbs [facility]#: [id number] : 1965Acct:[id number] Age/Sex: 54 / FDate of Service: 08/13/19 Loc: ED Accession Number: [id number] Procedure: XR chest 1V Ordering Provider: Brenton Drew D.O. PROCEDURE: XR CHEST 1V INDICATIONS: Left anterior chest wall pain after fall TECHNIQUE: One view of the chest was acquired. COMPARISON: [facility], CT, CT UE LT WO CON, 07/17/2019, 12:19. [facility], CR, XR CHEST 1V, 08/02/2019, 5:47. [facility], CR, XR CHEST 1V, 06/26/2019, 13:55. FINDINGS: Surgical changes and devices: None. Lungs and pleura: Lungs are clear. No pleural effusions or pneumothorax. Mediastinum: Mediastinal contours appear normal. Heart size is normal. Bones and chest wall: No suspicious bony lesions. Healing left side proximal humeral fracture. Overlying soft tissues appear unremarkable. IMPRESSION: Source of left anterior chest pain is not found. No pneumothorax. Healing proximal left humeral head/neck fracture from acute trauma 06/22/19. Dictated by: Akbar Ortiz M.D. on 08/13/2019 at 15:21 Approved by: Akbar Ortiz M.D. on 08/13/2019 at 15:22 ECG Data Attestation: I personally reviewed and interpreted this ECG as follows: Prior ECG tracings: not available for review Interpretation: Sinus tachycardia Ventricular rate of 113 Left axis deviation Normal QRS Normal QTC MDM Narrative Medical decision making narrative: It appears patient has syncopal episodes are positional related. It also seems that these symptoms per her report have been going on long before she was diagnosed with her most recent urinary tract infection in before her left shoulder fracture and prior to her recent admission to [facility] where she developed multiple medical issues. She is afebrile. Her physical exam is not consistent with pyelonephritis. She is currently on Macrobid. Review of the patient's urine culture shows a Macrobid sensitive bacteria. Chest x-ray was performed because the left anterior chest pain. There is no acute pathology noted. I do not feel the patient needs a CT scan of the head. Patient's orthostatic blood pressures here in the ER unremarkable. During her admission to the hospital approximately 2 months ago she had an echocardiogram which was unremarkable. I discussed with her the symptoms. I do not feel that we need to change her antibiotics. This does not appear to be seizure. Exam and history of physical not consistent with CVA or TIA. Her episodes do seem to have a vasovagal component to them. Patient does not describe a vertigo sensation. Feel we could hold on an MRI for now. Patient is tachycardic over sinus tachycardia. Had a long discussion with the patient regarding the symptoms. Informed her that she should talk with her primary doctor about a Holter monitor. I do not feel the patient warrants admission to the hospital for symptoms today. Patient expressed understanding and agreement plan. Discharge Plan Departure Patient Disposition: Home Clinical Impression: Closed fracture of left proximal humerus, Tachycardia Syncope Qualifiers: Syncope type: unspecified Qualified Code(s): R55 - Syncope and collapse Instructions: DI for Syncope in Adults (Fainting) Activity Restrictions/Additional Instructions: Recommend you continue all of your medications as directed. I also recommend that you contact your primary provider to discuss the indications for a Holter monitor. Return to the emergency department for any new or worsening symptoms Prescriptions: No Action hydroxyzine HCl 25 MG tablet 25 mg PO TID PRN (Reason: Anxiety) Qty: 0 RF: 0 magnesium oxide 400 MG tablet 400 mg PO BEDTIME Qty: 0 RF: 0 albuterol sulfate [Proventil HFA] 90 MCG/PUFF HFA aerosol inhaler 2 puff INH Q4HP PRN (Reason: Shortness Of Breath) Qty: 0 RF: 0 duloxetine 60 MG capsule,delayed release(DR/EC) 60 mg PO DAILY Qty: 0 RF: 0 gabapentin [Neurontin] 300 MG capsule 600 mg PO TID Qty: 0 RF: 0 multivitamin [Multiple Vitamins] 1 EACH tablet 1 tab PO DAILY Qty: 0 RF: 0 zolpidem [Ambien] 10 MG tablet 10 mg PO HS PRN (Reason: Insomnia) Qty: 0 RF: 0 lorazepam 0.5 mg tablet 0.5 mg PO BID PRN (Reason: Anxiety) RF: 0 aspirin 81 mg tablet,chewable 81 mg PO DAILY RF: 0 hydrocodone-acetaminophen [[place]] 5-325 mg tablet 1 - 2 tab PO Q6H PRN (Reason: pain) RF: 0 methocarbamol 500 mg tablet 1,000 mg PO Q6H PRN (Reason: Muscle Spasm) RF: 0 prochlorperazine maleate 10 mg tablet 10 mg PO Q6H PRN (Reason: Nausea) RF: 0 Humulin N NPH Insulin KwikPen 100 unit/mL (3 mL) insulin pen 15 unit SUBCUT BID RF: 0 tizanidine 4 mg capsule 4 mg PO TID PRN (Reason: Nausea) RF: 0 oxycodone-acetaminophen [Percocet] 7.5-325 mg tablet 1 tab PO Q6H PRN (Reason: pain) Qty: 12 RF: 0 cyclobenzaprine 10 mg tablet 10 mg PO TID PRN (Reason: muscle spasm) Qty: 15 RF: 0 nitrofurantoin macrocrystal 100 mg capsule 100 mg PO BID Qty: 20 RF: 0 tramadol [Ultram] 50 mg tablet 50 mg PO Q6H PRN (Reason: pain) Qty: 10 RF: 0 amitriptyline 50 mg tablet 150 mg PO BEDTIME RF: 0 potassium chloride 20 mEq tablet,ER particles/crystals 20 meq PO QNOON RF: 0 lisinopril 10 mg tablet 10 mg PO DAILY RF: 0 omeprazole 20 mg capsule,delayed release(DR/EC) 20 mg PO DAILY RF: 0 ondansetron 4 mg tablet,disintegrating 1 tab Translingual Q6H PRN (Reason: Nausea) RF: 0 Probiotic 1 tab PO BID RF: 0 vitamin E 1 cap PO DAILY RF: 0 ciprofloxacin HCl 500 mg tablet 500 mg PO BID Qty: 20 RF: 0 oxycodone-acetaminophen [Percocet] 7.5-325 mg tablet 1 tab PO .Q6-8hrs PRN (Reason: pain) Qty: 10 RF: 0 tramadol 50 mg tablet 50 mg PO Q8H PRN (Reason: pain) Qty: 10 RF: 0 hydrocodone-acetaminophen 5-325 mg tablet 1 tab PO Q4-6H PRN (Reason: pain) Qty: 10 RF: 0 Referrals: Fadi Ko DO [Primary Care Provider] -
--- NOTE | 2019-08-13 14:29 | DI.RAD.S_ITS ---
PROCEDURE: XR CHEST 1V INDICATIONS: Left anterior chest wall pain after fall TECHNIQUE: One view of the chest was acquired. COMPARISON: [facility], CT, CT UE LT WO CON, 07/17/2019, 12:19. [facility], CR, XR CHEST 1V, 08/02/2019, 5:47. [facility], CR, XR CHEST 1V, 06/26/2019, 13:55. FINDINGS: Surgical changes and devices: None. Lungs and pleura: Lungs are clear. No pleural effusions or pneumothorax. Mediastinum: Mediastinal contours appear normal. Heart size is normal. Bones and chest wall: No suspicious bony lesions. Healing left side proximal humeral fracture. Overlying soft tissues appear unremarkable. IMPRESSION: Source of left anterior chest pain is not found. No pneumothorax. Healing proximal left humeral head/neck fracture from acute trauma 06/22/19. Dictated by: Akbar Ortiz M.D. on 08/13/2019 at 15:21 Approved by: Akbar Ortiz M.D. on 08/13/2019 at 15:22
[2019-08-13] MEDS: SODIUM CHLORIDE 0.9% 1,000 ML 1000 ML IV (14:46)
[2019-08-13 14:55] VITALS: TEMP 37.1
--- NOTE | 2019-08-13 14:55 | PC.NURSE ---
pt on stretcher. so at side multiple iv attempts by ed rns. di called for iv per us
[2019-08-13 15:20] LABS: Add Manual Diff / Slide Review NO; Basophils Absolute Auto 200 /uL (0-100); Basophils Percent Auto 1.7 % (0-2); Eosinophils Absolute Auto 100 /uL (0-450); Eosinophils Percent Auto 1.2 % (2-4); Hematocrit 40.9 % (36-46); Hemoglobin 14.1 g/dL (12.0-16.0); Lymphocytes Absolute Auto 3000 /uL (1100-4500); Lymphocytes Percent Auto 30.2 % (25-40); Mean Corpuscular HGB Conc 34.4 % (30-36); Mean Corpuscular Hemoglobin 34.1 PG (26-34); Monocytes Absolute Auto 700 /uL (0-900); Monocytes Percent Auto 7.1 % (3-14); Neutrophils Absolute Auto 6000 /uL (1500-7000); Neutrophils Percent Auto 59.8 % (50-75); Platelet Count 440 X10^3/uL (150-400); Red Blood Cell Count 4.13 X10^6/uL (4.0-5.2); Red Cell Distribution Width 14.9 % (11.6-14.8)
[2019-08-13] MEDS: TRAMADOL 50 MG TABLET PO (15:29)
[2019-08-13 15:34] VITALS: BP 131/80; PULSE 111; RESP 18; O2SAT 100
[2019-08-13 15:34] LABS: BUN Creatinine Ratio 23.6 (6-22); Blood Urea Nitrogen 13 mg/dL (7-17); Calcium 10.4 mg/dL (8.4-10.2); Carbon Dioxide 20 mmol/L (22-32); Chloride 107 mmol/L (98-107); Estimated Glomerular Filt Rate > 60.0 mL/min (>60); Ethanol (ETOH) < 10 mg/dL; Glucose 138 mg/dL (70-100); Lactate (Lactic Acid) 1.4 mmol/L (0.7-2.1); Potassium 4.3 mmol/L (3.4-5.1); Sodium 138 mmol/L (137-145)
[2019-08-13 15:42] LABS: HEMOLYSIS 52 (0-50)
[2019-08-13 15:57] LABS: Procalcitonin < 0.05 ng/mL (<0.5)
--- NOTE | 2019-08-13 15:59 | PC.NURSE ---
requested patient wear the pulse ox. pt states no i'm in too much pain.
[2019-08-13 16:47] VITALS: BP 179/121; BP 181/108; BP 181/90; PULSE 111; PULSE 112; PULSE 118
--- NOTE | 2019-08-13 16:56 | PC.NURSE ---
called spouse for a ride home.
== END 2019-08-13 17:05 | disposition home or self-care (01) ==
PROVIDERS: Emergency Provider Emergency Medicine; PCP Family Medicine
DX: S42.202A Unspecified fracture of upper end of left humerus, initial encounter for closed fracture (principal); R55 Syncope and collapse; R00.0 Tachycardia, unspecified; R07.89 Other chest pain; W19.XXXA Unspecified fall, initial encounter
CPT/HCPCS: 36415; 71045; 80048; 80320; 83605; 84145; 85025; 93005; 96360; 96361; 99285

== ENCOUNTER → 2019-08-15 12:33 | Outpatient (CLI) | payer OTHER, SELFPAY ==
--- NOTE | 2019-08-15 | DI.CT.S_ITS ---
PROCEDURE: CT ANGIO CHEST INDICATIONS: Syncope and collapse TECHNIQUE: After the administration of intravenous contrast, 2 mm thick sections acquired from the pulmonary apices to the posterior costophrenic angles. 3-dimensional maximum intensity projection (MIP) coronal and sagittal reformats were then acquired through the thorax. For radiation dose reduction, the following was used: automated exposure control, adjustment of mA and/or kV according to patient size. COMPARISON: None. FINDINGS: Image quality: Excellent. Pulmonary arteries: Pulmonary arteries are normal in size, and demonstrate no intraluminal filling defects to suggest central pulmonary embolism. Lungs and pleura: Lungs are clear. No pleural effusions or pneumothorax. Central and peripheral airways are patent. Mediastinum: Heart size is normal, without pericardial effusion. No mediastinal or hilar adenopathy. Thoracic aorta is normal in caliber and enhancement. Esophagus is normal in caliber, without hiatal hernia. Bones and chest wall: No suspicious bony lesions. Ribs and thoracic spine appear intact throughout. Thyroid gland appears normal where well seen. No axillary or supraclavicular adenopathy. Abdomen: Visualized upper abdominal solid organs appear normal in the early arterial phase of enhancement. IMPRESSION: Cause of syncope and collapse is not identified. No pulmonary embolus found. Dictated by: Akbar Ortiz M.D. on 08/15/2019 at 14:28 Approved by: Akbar Ortiz M.D. on 08/15/2019 at 14:29
[2019-08-15 13:15] LABS: Estimated Glomerular Filt Rate > 60.0 mL/min (>60)
== END ==
PROVIDERS: PCP Family Medicine; Referring Provider Family Medicine; Visit Provider Family Medicine
DX: R55 Syncope and collapse (principal); R00.0 Tachycardia, unspecified; I82.509 Chronic embolism and thrombosis of unspecified deep veins of unspecified lower extremity
CPT/HCPCS: 36415; 71275; 82565; Q9967

== ENCOUNTER 2019-08-19 06:40 | Emergency (ER) | payer OTHER, SELFPAY ==
[2019-08-19 06:44] VITALS: BP 137/86; PULSE 92; RESP 16; TEMP 36.9; O2SAT 100
[2019-08-19 07:42] LABS: Appearance Urine UA CLOUDY; Bilirubin Urine UA NEGATIVE (NEGATIVE); Color Urine UA YELLOW; Glucose Urine UA NEGATIVE (Negative); Ketones Urine UA NEGATIVE (NEGATIVE); Leukocyte Esterase Urine UA TRACE (NEGATIVE); Nitrite Urine UA POSITIVE (Negative); Occult Blood Urine UA TRACE-INTACT (Negative); Protein Urine UA TRACE (Negative); Urobilinogen Urine UA 0.2 E.U./dL (0.2)
[2019-08-19 07:48] LABS: Add Manual Diff / Slide Review NO; Basophils Absolute Auto 100 /uL (0-100); Basophils Percent Auto 0.6 % (0-2); Eosinophils Absolute Auto 100 /uL (0-450); Eosinophils Percent Auto 1.2 % (2-4); Hematocrit 38.8 % (36-46); Hemoglobin 13.4 g/dL (12.0-16.0); Lymphocytes Absolute Auto 2800 /uL (1100-4500); Lymphocytes Percent Auto 35.4 % (25-40); Mean Corpuscular HGB Conc 34.5 % (30-36); Mean Corpuscular Hemoglobin 33.9 PG (26-34); Mean Corpuscular Volume 98.1 fL (80-100); Monocytes Absolute Auto 400 /uL (0-900); Monocytes Percent Auto 4.8 % (3-14); Neutrophils Absolute Auto 4600 /uL (1500-7000); Platelet Count 369 X10^3/uL (150-400); Red Blood Cell Count 3.96 X10^6/uL (4.0-5.2); Red Cell Distribution Width 14.4 % (11.6-14.8); White Blood Cell Count 7.9 X10^3/uL (4.5-11.0)
[2019-08-19 08:00] LABS: Lactate (Lactic Acid) 1.9 mmol/L (0.7-2.1)
[2019-08-19 08:03] LABS: Bacteria Urine Moderate (10-30); Culture Indicated Urine Specimen Cultured; RBC Urine 1-5/HPF (0-5/HPF); WBC Urine 5-10/HPF (0-5/HPF)
[2019-08-19 08:03] LABS: Alanine Aminotransferase 45 IU/L (<35); Albumin 4.5 g/dL (3.5-5.0); Albumin Globulin Ratio 1.2 (1.0-2.8); Alkaline Phosphatase 210 U/L (38-126); Aspartate Aminotransferase 53 IU/L (14-36); Bilirubin Total 0.5 mg/dL (0.2-1.3); Blood Urea Nitrogen 19 mg/dL (7-17); Calcium 9.9 mg/dL (8.4-10.2); Carbon Dioxide 22 mmol/L (22-32); Chloride 104 mmol/L (98-107); Estimated Glomerular Filt Rate > 60.0 mL/min (>60); Globulin 3.7 g/dL (1.7-4.1); Glucose 104 mg/dL (70-100); HEMOLYSIS < 15 (0-50); Potassium 4.1 mmol/L (3.4-5.1); Sodium 137 mmol/L (137-145); Total Protein 8.2 g/dL (6.3-8.2)
[2019-08-19 08:14] VITALS: PULSE 90; RESP 15; O2SAT 98
[2019-08-19] MEDS: DEXTROSE 5%-0.9% NS 1,000 ML 500 ML IV (08:47)
[2019-08-19 08:51] VITALS: BP 169/102; PULSE 92; RESP 18; O2SAT 99
--- NOTE | 2019-08-19 08:57 | DI.RAD.S_ITS ---
PROCEDURE: XR CHEST 1V INDICATIONS: sick, questionable sepsis, abdominal pain TECHNIQUE: One view of the chest was acquired. COMPARISON: None. FINDINGS: Surgical changes and devices: None. Lungs and pleura: Lungs are clear. No pleural effusions or pneumothorax. Mediastinum: Mediastinal contours appear normal. Heart size is normal. Bones and chest wall: No suspicious bony lesions. Overlying soft tissues appear unremarkable. IMPRESSION: No evidence acute pulmonary process. Dictated by: Ayush Partida M.D. on 08/19/2019 at 8:42 Approved by: Ayush Partida M.D. on 08/19/2019 at 8:42
--- NOTE | 2019-08-19 08:57 | DI.CT.S_ITS ---
PROCEDURE: CT ABDOMEN PELVIS W CON INDICATIONS: possible sepsis, abdominal pain TECHNIQUE: After the administration of intravenous contrast, 5 mm thick sections acquired from the diaphragm to the symphysis. 5 mm coronal and sagittal reformats were acquired. For radiation dose reduction, the following was used: automated exposure control, adjustment of mA and/or kV according to patient size. COMPARISON: None. FINDINGS: Image quality: Excellent. ABDOMEN: Lung bases: Lung bases are clear. Heart size is normal. Solid organs: Liver is normal in size and enhancement. Gallbladder is surgically absent. Biliary system is non dilated. Pancreas enhances normally. Spleen is normal in size and enhancement. No adrenal nodules. Kidneys demonstrate normal size and enhancement, without hydronephrosis. Peritoneum and bowel: Moderately large amount of fecal debris. Bowel loops demonstrate normal wall thickness and caliber. No free fluid or air. Probable previous appendectomy. Nodes and vessels: No retroperitoneal or mesenteric adenopathy by size criteria. Aorta and inferior vena cava are normal in size. A atherosclerotic calcifications. There is a moderate proximal right common iliac artery stenosis. Miscellaneous: No ventral hernias. PELVIS: Genitourinary: The bladder is surgically absent. Dilated mid and distal right ureter down to the level of the anastomosis with the ileal conduit, as before, although less prominent than previously. Miscellaneous: No inguinal hernias or adenopathy. Uterus is surgically absent. Bones: No suspicious bony lesions. No vertebral body compression fractures. IMPRESSION: 1. Numerous previous surgeries, including cholecystectomy, probable appendectomy, hysterectomy, and bladder resection. 2. Chronic prominence of the mid and distal right ureter, decreased from the previous study, down to the level of the anastomosis with the ileal conduit. 3. Moderately large diffuse fecal debris. 4. Note is made of a moderate right common iliac artery stenosis. Dictated by: Ayush Partida M.D. on 08/19/2019 at 8:47 Approved by: Ayush Partida M.D. on 08/19/2019 at 8:56
--- NOTE | 2019-08-19 09:08 | ED_ITS ---
HPI - General Adult General Chief complaint: Diabetic Problem Stated complaint: low blood sugar 47 this am, doesn't feel right Time Seen by Provider: 08/19/19 06:52 Source: patient and family Mode of arrival: Wheelchair History of Present Illness HPI narrative: CC: I feel sick. Hypoglycemic reaction at home of 47. HPI: The patient is a 54-year-old female who presents to the emergency department as a type 2 diabetic with a hypoglycemic reaction. She has a history of chronic urinary tract infections. She has a ureterostomy status post bladder resection for interstitial cystitis. She has had this for multiple years. She states that the stoma is mildly lambert and when this has happened she has had sepsis. This morning her blood sugar was 47. She did not take her insulin this morning. She has had nausea and vomiting with diffuse abdominal pain. She has recently had a history of syncope for which she is being evaluated by her primary care physician. Holter monitor has been ordered arm for her. She will either completed today or tomorrow her course of antibiotic for her urinary tract infection. She feels very weak tired with diffuse abdominal cramps and just sick. She admits to smoking cigarettes but does not drink alcohol use any drugs. She admits to being a diabetic with hypertension but has never had a heart attack congestive heart failure stroke or asthma. Related Data Home Medications Medication Instructions Recorded Confirmed albuterol sulfate [Proventil HFA] 2 puff INH Q4HP PRN #0 01/08/13 10/04/18 hydroxyzine HCl 25 mg PO TID PRN #0 01/08/13 05/17/19 magnesium oxide 400 mg PO BEDTIME #0 tab 01/08/13 05/17/19 duloxetine 60 mg PO DAILY #0 07/04/17 05/17/19 gabapentin [Neurontin] 600 mg PO TID #0 07/04/17 05/17/19 multivitamin [Multiple Vitamins] 1 tab PO DAILY #0 07/04/17 10/04/18 zolpidem [Ambien] 10 mg PO HS PRN #0 07/04/17 05/17/19 Probiotic 1 tab PO BID 09/26/17 10/04/18 amitriptyline 150 mg PO BEDTIME 09/26/17 05/17/19 lisinopril 10 mg PO DAILY 09/26/17 05/17/19 omeprazole 20 mg PO DAILY 09/26/17 05/17/19 ondansetron 1 tab TRANSLINGUAL Q6H PRN 09/26/17 10/04/18 potassium chloride 20 meq PO QNOON 09/26/17 05/17/19 vitamin E 1 cap PO DAILY 09/26/17 09/26/17 lorazepam 0.5 mg PO BID PRN 05/30/18 05/17/19 aspirin 81 mg PO DAILY 06/13/18 10/04/18 hydrocodone-acetaminophen [[place]] 1 - 2 tab PO Q6H PRN 10/04/18 10/04/18 insulin NPH isoph U-100 human 15 unit SUBCUT BID 05/17/19 05/17/19 [Humulin N NPH Insulin KwikPen] methocarbamol 1,000 mg PO Q6H PRN 05/17/19 05/17/19 prochlorperazine maleate 10 mg PO Q6H PRN 05/17/19 05/17/19 tizanidine 4 mg PO TID PRN 05/17/19 05/17/19 Previous Rx's Medication Instructions Recorded ciprofloxacin HCl 500 mg PO BID #20 tab 06/17/19 cyclobenzaprine 10 mg PO TID PRN #15 tab 06/22/19 oxycodone-acetaminophen [Percocet] 1 tab PO Q6H PRN #12 tab 06/22/19 oxycodone-acetaminophen [Percocet] 1 tab PO .Q6-8hrs PRN #10 tab 06/23/19 tramadol 50 mg PO Q8H PRN #10 tab 06/23/19 hydrocodone-acetaminophen 1 tab PO Q4-6H PRN #10 tab 08/02/19 nitrofurantoin macrocrystal 100 mg PO BID #20 cap 08/10/19 tramadol [Ultram] 50 mg PO Q6H PRN #10 tab 08/10/19 cefdinir 300 mg PO BID #10 cap 08/19/19 ondansetron HCl [Zofran] 4 mg PO Q6H PRN #12 tab 08/19/19 Allergies Allergy/AdvReac Type Severity Reaction Status Date / Time mupirocin Allergy Unknown Verified 08/10/19 12:29 naproxen Allergy Unknown Verified 08/10/19 12:29 Penicillins Allergy Unknown SINCE Verified 08/10/19 12:29 CHILDHOOD droperidol AdvReac Unknown Verified 08/10/19 12:29 fenofibrate [FENOFIBRATE] AdvReac Unknown Verified 08/10/19 12:29 ibuprofen AdvReac Unknown NAUSEA Verified 08/10/19 12:29 metformin [METFORMIN] AdvReac Unknown Verified 08/10/19 12:29 metoclopramide AdvReac Unknown BECAME Verified 08/10/19 12:29 JITTERY AND ANXIOUS nitrofurantoin AdvReac Unknown NAUSEA Verified 08/10/19 12:29 Review of Systems Review of Systems Narrative: REVIEW OF SYSTEMS: CONSTITUTIONAL: She complains of generalized weakness fatigue lack of energy without any fever chills or sweats. NEUROLOGICAL: She has had no significant headache numbness tingling anesthesia is paresis or paralysis. EENT: She denies any sore throat or sinus congestion. CARDIO-PULMONARY: She has had no chest pain cough shortness of breath dizziness but does periodically have racing of her heart and palpitations. HEMOTOLOGICAL: She denies any bleeding abnormalities or bruising. GASTROINTESTINAL: She has had nausea and vomiting but no diarrhea melena hematochezia. GENITAL URINARY: She has a ureterostomy with symptoms as previously described in the history of present illness. MUSCULOSKELETAL/ RHEUMATOLOGICAL: Complains of mild low back pain. Patient History Medical History Anxiety (Chronic) Closed fracture of left humerus (Inactive) Endometriosis (Chronic) Fibromyalgia (Chronic) Heart palpitations (Chronic) History of asthma (Chronic) History of chronic hypertension (Chronic) History of COPD (Chronic) History of depression (Chronic) History of gastrointestinal ulcer (Chronic) History of kidney stones (Chronic) History of migraine (Chronic) History of panic attacks (Chronic) History of type 2 diabetes mellitus (Chronic) Interstitial cystitis (Chronic) UTI (urinary tract infection) (Chronic) Surgical History History of urostomy (Acute) S/P appendectomy (Resolved) Status post hysterectomy (Resolved) Family History Other Family history non-contributory Social History Smoking Status: Current every day smoker Smoking Status: Current every day smoker alcohol intake frequency: a few times a week Substance Use Type: former substance user and marijuana Exam Narrative Exam Narrative: PHYSICAL EXAM: CONSTITUTIONAL: Awake, Alert, Oriented, Coherent, Cooperative in NAD. Does not appear toxic or ill. The patient appears chronically ill is very thin and very quiet. HEAD: AT/NC EENT: PERRL, FROM of eyes, no discharge, no nystagmus MOUTH:Oral mucosa is moist and pink, posterior pharynx is without erythema or exudate. NECK: Supple, no obvious JVD, Trachea is midline without stridor, no palpable LN. SPINE: Palpationof Thoracic, Lumbar or Sacral spine reveals no gross deformity or tenderness. She has mild tenderness to palpation over the cervical spine but no deformity. No CVA tenderness. THORAX: No deformity, retractions, chest wall tenderness. LUNGS: Clear, symmetrical breath sounds without respiratory distress. HEART: Normal heart tones, regular rhythm and rate without murmur. ABDOMEN: The patient has a ureterostomy in the right lower quadrant however she the area around the stoma and bag is mildly lambert. The rest of her abdomen is mildly tender without guarding or rebound. LYMPHATIC: no palpable spleen. EXTREMITIES: No edema, deformity, tenderness or cyanosis. SKIN: No rash, bruising, petechiae or purpura. NEURO: Awake, alert, oriented, conversive, cranial nerves II-XII are symmetrical , moves all 4 extremities and is ambulatory. Initial Vital Signs Initial Vital Signs: Vital Signs Temperature 98.4 F 08/19/19 06:44 Pulse Rate 92 H 08/19/19 06:44 Respiratory Rate 16 08/19/19 06:44 Blood Pressure 137/86 08/19/19 06:44 Pulse Oximetry 100 08/19/19 06:44 Course Course Course Narrative: 1052: The patient's chest x-ray reveals no acute cardiopulmonary process/pathology. Ct abdomen revealed: 1. Numerous previous surgeries, including cholecystectomy, probable appendectomy, hysterectomy, and bladder resection. 2. Chronic prominence of the mid and distal right ureter decreased from the previous study down to the level of the anastomosis with the ileal conduit. 3. Moderately large diffuse fecal debris. 4. Note is made of a moderate right common iliac artery stenosis. No other acute pathology is noted. There were no ventral hernias appreciated. Her lactic acid was 1.9. WBC is 7.9. Hematocrit is 38.8 hemoglobin is 13.4. Her liver function tests reveal an AST of 53 and ALT of 45 alk-phos of a 210. 11:00 the patient was informed of the findings and will be discharged home. She will be discharged home on cefdinir, and Zofran for nausea and vomiting. She was advised to continue to take her insulin but cut today's dose in half since she did not take it this morning. She was advised to follow-up with her primary care physician to have her insulin adjusted. Orders Ordered: ED Orders 08/19/19 07:19 Complete Blood Count AUTO DIFF Stat Comprehensive Metabolic Panel Stat Lactate (Lactic Acid) Stat 08/19/19 07:25 Urinalysis and Microscopic Stat Urine Culture Stat 08/19/19 08:57 CT abdomen pelvis w con Stat XR chest 1V Stat 08/19/19 09:11 Blood Culture Stat Discontinued Medications Dextrose/Sodium Chloride (Dextrose 5%-0.9% Ns) 1,000 mls @ 500 mls/hr IV CONT ISSA Last Infusion: 08/19/19 11:41 Dose: 0 mls/hr Documented by: Admin: 08/19/19 08:47 Dose: 500 mls/hr Documented by: ARYAN Cefepime HCl 2 gm/ Sodium (Chloride) 100 mls @ 200 mls/hr IV NOW ONE Stop: 08/19/19 08:58 Last Infusion: 08/19/19 10:24 Dose: 0 mls/hr Documented by: Admin: 08/19/19 09:32 Dose: 200 mls/hr Documented by: ARYAN Morphine Sulfate (Morphine) 4 mg IV NOW ONE Stop: 08/19/19 09:10 Last Admin: 08/19/19 09:33 Dose: 4 mg Documented by: ARYAN Ondansetron HCl (Zofran) 4 mg IV NOW ONE Stop: 08/19/19 09:10 Last Admin: 08/19/19 09:36 Dose: 4 mg Documented by: ARYAN Vital Signs Vital signs: Vital Signs - 8 hr 08/19/19 08:14 08/19/19 08:51 08/19/19 09:42 Pulse Rate 90 92 H 82 Respiratory Rate 15 18 18 Blood Pressure [rt fa] 169/102 H 198/94 H Pulse Oximetry 98 99 100 08/19/19 11:14 Pulse Rate 85 Respiratory Rate Blood Pressure [rt fa] 183/81 H Pulse Oximetry 100 Medical Decision Making Medical Records Medical records reviewed: Yes I reviewed the patient's medical records. Lab Data Lab results reviewed: Yes I reviewed the patient's lab results. Result diagrams: 08/19/19 07:19 08/19/19 07:19 Labs: Lab Results 08/19/19 08/19/19 08/19/19 Range/Units 07:19 07:19 07:19 WBC 7.9 (4.5-11.0) X10^3/uL RBC 3.96 L (4.0-5.2) X10^6/uL Hgb 13.4 (12.0-16.0) g/dL Hct 38.8 (36-46) % MCV 98.1 (80-100) fL MCH 33.9 (26-34) PG MCHC 34.5 (30-36) % RDW 14.4 (11.6-14.8) % Plt Count 369 (150-400) X10^3/uL Neut % (Auto) 58.0 (50-75) % Lymph % (Auto) 35.4 (25-40) % [place] % (Auto) 4.8 (3-14) % Eos % (Auto) 1.2 L (2-4) % Baso % (Auto) 0.6 (0-2) % Neut # (Auto) 4600 (3493-8212) /uL Lymph # (Auto) 2800 (0156-5299) /uL [place] # (Auto) 400 (0-900) /uL Eos # (Auto) 100 (0-450) /uL Baso # (Auto) 100 (0-100) /uL Sodium 137 (137-145) mmol/L Potassium 4.1 (3.4-5.1) mmol/L Chloride 104 (98-107) mmol/L Carbon Dioxide 22 (22-32) mmol/L BUN 19 H (7-17) mg/dL Creatinine 0.50 L (0.52-1.04) mg/dL Estimated GFR > 60.0 (>60) mL/min BUN/Creatinine Ratio 38.0 H (6-22) Glucose 104 H (70-100) mg/dL Lactate 1.9 (0.7-2.1) mmol/L Calcium 9.9 (8.4-10.2) mg/dL Total Bilirubin 0.5 (0.2-1.3) mg/dL AST 53 H (14-36) IU/L ALT 45 H (<35) IU/L Alkaline Phosphatase 210 H (38-126) U/L Total Protein 8.2 (6.3-8.2) g/dL Albumin 4.5 (3.5-5.0) g/dL Globulin 3.7 (1.7-4.1) g/dL Albumin/Globulin Ratio 1.2 (1.0-2.8) Urine Color Urine Appearance Urine pH (4.5-8.0) Ur Specific [place] (1.000-1.035) Urine Protein (Negative) Urine Glucose (UA) (Negative) g/dL Urine Ketones (NEGATIVE) Urine Occult Blood (Negative) Urine Nitrate (Negative) Urine Bilirubin (NEGATIVE) Urine Urobilinogen (0.2) E.U./dL Ur Leukocyte Esterase (NEGATIVE) Urine RBC (0-5/HPF) Urine WBC (0-5/HPF) Urine Bacteria (None) Ur Culture Indicated? 08/19/19 Range/Units 07:25 WBC (4.5-11.0) X10^3/uL RBC (4.0-5.2) X10^6/uL Hgb (12.0-16.0) g/dL Hct (36-46) % MCV (80-100) fL MCH (26-34) PG MCHC (30-36) % RDW (11.6-14.8) % Plt Count (150-400) X10^3/uL Neut % (Auto) (50-75) % Lymph % (Auto) (25-40) % [place] % (Auto) (3-14) % Eos % (Auto) (2-4) % Baso % (Auto) (0-2) % Neut # (Auto) (5265-5139) /uL Lymph # (Auto) (1707-0620) /uL [place] # (Auto) (0-900) /uL Eos # (Auto) (0-450) /uL Baso # (Auto) (0-100) /uL Sodium (137-145) mmol/L Potassium (3.4-5.1) mmol/L Chloride (98-107) mmol/L Carbon Dioxide (22-32) mmol/L BUN (7-17) mg/dL Creatinine (0.52-1.04) mg/dL Estimated GFR (>60) mL/min BUN/Creatinine Ratio (6-22) Glucose (70-100) mg/dL Lactate (0.7-2.1) mmol/L Calcium (8.4-10.2) mg/dL Total Bilirubin (0.2-1.3) mg/dL AST (14-36) IU/L ALT (<35) IU/L Alkaline Phosphatase (38-126) U/L Total Protein (6.3-8.2) g/dL Albumin (3.5-5.0) g/dL Globulin (1.7-4.1) g/dL Albumin/Globulin Ratio (1.0-2.8) Urine Color Yellow Urine Appearance Cloudy Urine pH 7.0 (4.5-8.0) Ur Specific [place] 1.010 (1.000-1.035) Urine Protein Trace H (Negative) Urine Glucose (UA) Negative (Negative) g/dL Urine Ketones Negative (NEGATIVE) Urine Occult Blood Trace-intact (Negative) Urine Nitrate Positive H (Negative) Urine Bilirubin Negative (NEGATIVE) Urine Urobilinogen 0.2 (0.2) E.U./dL Ur Leukocyte Esterase Trace H (NEGATIVE) Urine RBC 1-5/hpf (0-5/HPF) Urine WBC 5-10/hpf H (0-5/HPF) Urine Bacteria Moderate (10-30) H (None) Ur Culture Indicated? Specimen cultured Point of Care Testing Glucose POC 118 Point of care testing: Point of Care Testing Glucose POC 118 ECG Data Attestation: I personally reviewed and interpreted this ECG as follows: Discharge Plan Departure Patient Disposition: Home Clinical Impression: Chronic UTI (urinary tract infection), H/O ureterostomy, Hypoglycemia Abdominal pain Qualifiers: Abdominal location: generalized Qualified Code(s): R10.84 - Generalized abdominal pain Back pain Qualifiers: Back pain location: low back pain Chronicity: unspecified Back pain laterality: bilateral Sciatica presence: without sciatica Qualified Code(s): M54.5 - Low back pain Discharge Date/Time: 08/19/19 11:42 Instructions: DI for Urinary Tract Infection (UTI), DI for Diabetes Type 2, Nausea and Vomiting-Adult Activity Restrictions/Additional Instructions: 1. Today take only half of your scheduled dose of insulin. It is better to run high rather than low. 2. Follow-up with your primary care physician to have your insulin dosages changed. 3. Take the cefdinir as prescribed for the next 5 days. 4. Uses Zofran for nausea and vomiting. However if you become dizzy lightheaded you need to discontinue the medication. 5. Drink at least 2-3 L of fluid per day to keep yourself hydrated. 6. If you develop worsening pain, fever, dizziness, passing out, you need to return to the emergency department for re-evaluation. Prescriptions: New cefdinir 300 mg capsule 300 mg PO BID Qty: 10 RF: 0 ondansetron HCl [Zofran] 4 mg tablet 4 mg PO Q6H PRN (Reason: nausea and vomiting) Qty: 12 RF: 0 No Action hydroxyzine HCl 25 MG tablet 25 mg PO TID PRN (Reason: Anxiety) Qty: 0 RF: 0 magnesium oxide 400 MG tablet 400 mg PO BEDTIME Qty: 0 RF: 0 albuterol sulfate [Proventil HFA] 90 MCG/PUFF HFA aerosol inhaler 2 puff INH Q4HP PRN (Reason: Shortness Of Breath) Qty: 0 RF: 0 duloxetine 60 MG capsule,delayed release(DR/EC) 60 mg PO DAILY Qty: 0 RF: 0 gabapentin [Neurontin] 300 MG capsule 600 mg PO TID Qty: 0 RF: 0 multivitamin [Multiple Vitamins] 1 EACH tablet 1 tab PO DAILY Qty: 0 RF: 0 zolpidem [Ambien] 10 MG tablet 10 mg PO HS PRN (Reason: Insomnia) Qty: 0 RF: 0 lorazepam 0.5 mg tablet 0.5 mg PO BID PRN (Reason: Anxiety) RF: 0 aspirin 81 mg tablet,chewable 81 mg PO DAILY RF: 0 hydrocodone-acetaminophen [[place]] 5-325 mg tablet 1 - 2 tab PO Q6H PRN (Reason: pain) RF: 0 methocarbamol 500 mg tablet 1,000 mg PO Q6H PRN (Reason: Muscle Spasm) RF: 0 prochlorperazine maleate 10 mg tablet 10 mg PO Q6H PRN (Reason: Nausea) RF: 0 Humulin N NPH Insulin KwikPen 100 unit/mL (3 mL) insulin pen 15 unit SUBCUT BID RF: 0 tizanidine 4 mg capsule 4 mg PO TID PRN (Reason: Nausea) RF: 0 oxycodone-acetaminophen [Percocet] 7.5-325 mg tablet 1 tab PO Q6H PRN (Reason: pain) Qty: 12 RF: 0 cyclobenzaprine 10 mg tablet 10 mg PO TID PRN (Reason: muscle spasm) Qty: 15 RF: 0 nitrofurantoin macrocrystal 100 mg capsule 100 mg PO BID Qty: 20 RF: 0 tramadol [Ultram] 50 mg tablet 50 mg PO Q6H PRN (Reason: pain) Qty: 10 RF: 0 amitriptyline 50 mg tablet 150 mg PO BEDTIME RF: 0 potassium chloride 20 mEq tablet,ER particles/crystals 20 meq PO QNOON RF: 0 lisinopril 10 mg tablet 10 mg PO DAILY RF: 0 omeprazole 20 mg capsule,delayed release(DR/EC) 20 mg PO DAILY RF: 0 ondansetron 4 mg tablet,disintegrating 1 tab Translingual Q6H PRN (Reason: Nausea) RF: 0 Probiotic 1 tab PO BID RF: 0 vitamin E 1 cap PO DAILY RF: 0 ciprofloxacin HCl 500 mg tablet 500 mg PO BID Qty: 20 RF: 0 oxycodone-acetaminophen [Percocet] 7.5-325 mg tablet 1 tab PO .Q6-8hrs PRN (Reason: pain) Qty: 10 RF: 0 tramadol 50 mg tablet 50 mg PO Q8H PRN (Reason: pain) Qty: 10 RF: 0 hydrocodone-acetaminophen 5-325 mg tablet 1 tab PO Q4-6H PRN (Reason: pain) Qty: 10 RF: 0 Referrals: Fadi Ko DO [Primary Care Provider] -
[2019-08-19] MEDS: CEFEPIME 2 GM in SODIUM CHLORIDE 0.9% 100 ML 200 ML IV (09:32)
[2019-08-19] MEDS: MORPHINE 4 MG/ML INJ IV (09:33)
[2019-08-19] MEDS: ONDANSETRON 4 MG/2 ML INJ IV (09:36)
[2019-08-19 09:42] VITALS: BP 198/94; PULSE 82; RESP 18; O2SAT 100
[2019-08-19 11:14] VITALS: BP 183/81; PULSE 85; O2SAT 100
== END 2019-08-19 11:42 | disposition home or self-care (01) ==
PROVIDERS: Emergency Medicine; Emergency Provider Emergency Medicine; PCP Family Medicine
DX: E11.649 Type 2 diabetes mellitus with hypoglycemia without coma (principal); N39.0 Urinary tract infection, site not specified; R10.84 Generalized abdominal pain; M54.5 Low back pain; R11.2 Nausea with vomiting, unspecified
CPT/HCPCS: 36415; 71045; 74177; 80053; 81001; 82962; 83605; 85025; 87040; 87077; 87086; 87186; 96361; 96365; 96375; 99284; J0692; J2270; J2405; Q9967

== ENCOUNTER 2019-08-27 06:12 | Observation (INO) | payer OTHER, SELFPAY ==
[2019-08-27 06:18] VITALS: BP 133/83; PULSE 112; RESP 14; TEMP 36.3; O2SAT 100; BMI 15.5
[2019-08-27] MEDS: SODIUM CHLORIDE 0.9% 1,000 ML 1000 ML IV (06:29)
--- NOTE | 2019-08-27 06:45 | ED_ITS ---
HPI - Nausea/Vomiting/Diarrhea <Brenton Drew, DO - Last Filed: 08/29/19 07:11> General Chief complaint: Nausea/Vomiting/Diarrhea Stated complaint: diarrhea, puking Time Seen by Provider: 08/27/19 06:13 Source: patient and family Mode of arrival: Ambulatory Limitations: no limitations History of Present Illness HPI Narrative: 54-year-old female with multiple medical problems to include in sulin-dependent diabetes and the urostomy tube placement he was seen here in the emergency department approximately 1 week ago was diagnosed with the urinary tract infection. Was sent home with Cefdinir. She states she has completed this course of antibiotics. Over the past couple days has had back pain, not feeling well, abdominal pain, vomiting. She did try to doses of ODT Zofran prior to arrival without much improvement of her nausea. She states she is still trying to drink fluids. No fevers. Came into the emergency department because of the continued symptoms. Related Data Home Medications Medication Instructions Recorded Confirmed albuterol sulfate [Proventil HFA] 2 puff INH Q4HP PRN #0 01/08/13 08/27/19 hydroxyzine HCl 25 mg PO TID #0 01/08/13 08/27/19 magnesium oxide 400 mg PO BEDTIME #0 tab 01/08/13 08/27/19 duloxetine 60 mg PO DAILY #0 07/04/17 08/27/19 gabapentin [Neurontin] 600 mg PO TID #0 07/04/17 08/27/19 multivitamin [Multiple Vitamins] 1 tab PO DAILY #0 07/04/17 08/27/19 zolpidem [Ambien] 10 mg PO HS PRN #0 07/04/17 08/27/19 Probiotic 1 tab PO BID 09/26/17 08/27/19 amitriptyline 150 mg PO BEDTIME 09/26/17 08/27/19 lisinopril 10 mg PO DAILY 09/26/17 08/27/19 omeprazole 20 mg PO DAILY 09/26/17 08/27/19 ondansetron 1 tab TRANSLINGUAL Q6H PRN 09/26/17 08/27/19 potassium chloride 20 meq PO QNOON 09/26/17 08/27/19 vitamin E 1 cap PO DAILY 09/26/17 08/27/19 lorazepam 0.5 mg PO BID PRN 05/30/18 08/27/19 insulin NPH isoph U-100 human 15 unit SUBCUT BID PRN 05/17/19 08/27/19 [Humulin N NPH Insulin KwikPen] methocarbamol 1,000 mg PO Q6H PRN 05/17/19 08/27/19 Allergies Allergy/AdvReac Type Severity Reaction Status Date / Time mupirocin Allergy Unknown Verified 08/27/19 06:24 naproxen Allergy Unknown Verified 08/27/19 06:24 Penicillins Allergy Unknown SINCE Verified 08/27/19 06:24 CHILDHOOD droperidol AdvReac Unknown Verified 08/27/19 06:24 fenofibrate [FENOFIBRATE] AdvReac Unknown Verified 08/27/19 06:24 ibuprofen AdvReac Unknown NAUSEA Verified 08/27/19 06:24 metformin [METFORMIN] AdvReac Unknown Verified 08/27/19 06:24 metoclopramide AdvReac Unknown BECAME Verified 08/27/19 06:24 JITTERY AND ANXIOUS nitrofurantoin AdvReac Unknown NAUSEA Verified 08/27/19 06:24 Review of Systems <Brenton Drew DO - Last Filed: 08/29/19 07:11> Constitutional Constitutional: Denies fever(s) Cardiovascular Cardiovascular: Denies chest pain and Denies dyspnea Respiratory Respiratory: Denies dyspnea Gastrointestinal Gastrointestinal: Reports abdominal pain, Reports diarrhea, Reports nausea and Reports vomiting Integumentary/Breasts Skin/Breast: Denies rash Neurologic Neurologic: Denies behavioral changes Psychiatric Psychiatric: Denies behavioral changes Patient History <DO Carlene Beaver Last Filed: 08/29/19 07:11> Medical History Anxiety (Chronic) Closed fracture of left humerus (Inactive) Endometriosis (Chronic) Fibromyalgia (Chronic) Heart palpitations (Chronic) History of asthma (Chronic) History of chronic hypertension (Chronic) History of COPD (Chronic) History of depression (Chronic) History of gastrointestinal ulcer (Chronic) History of kidney stones (Chronic) History of migraine (Chronic) History of panic attacks (Chronic) History of type 2 diabetes mellitus (Chronic) Interstitial cystitis (Chronic) UTI (urinary tract infection) (Chronic) Surgical History History of urostomy (Acute) S/P appendectomy (Resolved) Status post hysterectomy (Resolved) Family History (Updated 08/27/19 @ 18:35 by Angeles Post MD) Mother Diabetes mellitus Other Family history non-contributory Social History household members: spouse Smoking Status: Current every day smoker alcohol intake: current Smoking Status: Current every day smoker alcohol intake frequency: a few times a week Substance Use Type: former substance user and marijuana Exam <Brenton Drew DO - Last Filed: 08/29/19 07:11> Initial Vital Signs Initial Vital Signs: Vital Signs Temperature 97.3 F L 08/27/19 06:18 Pulse Rate 112 H 08/27/19 06:18 Respiratory Rate 14 08/27/19 06:18 Blood Pressure 133/83 08/27/19 06:18 Pulse Oximetry 100 08/27/19 06:18 Const General: frail appearing HENMT Head: normal to inspection and normocephalic Resp Effort & Inspection: normal respiratory effort Auscultation: clear to auscultation bilaterally Cardio Rate: tachycardic Rhythm: regular rhythm Pulses: radial pulses present on the left GI Inspection: non-distended Palpation: soft and tender Skin Lesions: no lesions Rashes: no rashes Extrem General: capillary refill normal Psych Appearance: grossly normal and well kempt <Lyle Roman DO - Last Filed: 08/27/19 18:33> Initial Vital Signs Initial Vital Signs: Vital Signs Temperature 97.3 F L 08/27/19 06:18 Pulse Rate 112 H 08/27/19 06:18 Respiratory Rate 14 08/27/19 06:18 Blood Pressure 133/83 08/27/19 06:18 Pulse Oximetry 100 08/27/19 06:18 Scores <DO Carlene Beaver Last Filed: 08/29/19 07:11> GCS Eva coma scale eye opening: Spontaneous Union coma scale verbal response: Orientated Eva coma scale motor response: Obey commands Eva coma scale total score: 15 Course <DO Carlene Beaver Last Filed: 08/29/19 07:11> Orders Ordered: Acetaminophen (Tylenol) 650 mg PO Q6HR PRN PRN Reason: Fever/Mild Pain (1-3) Hydrocodone Bitart/Acetaminophen (Sophia 5/325) 1 tab PO Q4HR PRN PRN Reason: Pain, Moderate (4-6) Last Admin: 08/28/19 22:02 Dose: 1 tab Documented by: Admin: 08/28/19 17:31 Dose: 1 tab Documented by: Admin: 08/28/19 12:49 Dose: 1 tab Documented by: Admin: 08/28/19 09:17 Dose: 1 tab Documented by: Admin: 08/28/19 04:48 Dose: 1 tab Documented by: Admin: 08/27/19 21:53 Dose: 1 tab Documented by: MAYNOR Albuterol (Ventolin Hfa) 2 puff INH RTQ6HR PRN PRN Reason: Shortness Of Breath Amitriptyline HCl (Elavil) 150 mg PO BEDTIME [facility] Last Admin: 08/28/19 20:27 Dose: 150 mg Documented by: Admin: 08/27/19 21:48 Dose: 150 mg Documented by: MAYNOR Duloxetine HCl (Cymbalta) 60 mg PO DAILY [facility] Last Admin: 08/28/19 09:03 Dose: 60 mg Documented by: ESDRAS Enoxaparin Sodium (Lovenox) 40 mg SUBCUT DAILY [facility] Last Admin: 08/28/19 09:03 Dose: 40 mg Documented by: Admin: 08/27/19 16:15 Dose: 40 mg Documented by: MAYNOR Gabapentin (Neurontin) 600 mg PO TID [facility] Last Admin: 08/28/19 20:27 Dose: 600 mg Documented by: Admin: 08/28/19 15:01 Dose: 600 mg Documented by: Admin: 08/28/19 09:03 Dose: 600 mg Documented by: Admin: 08/27/19 21:53 Dose: 600 mg Documented by: Admin: 08/27/19 16:16 Dose: 600 mg Documented by: MAYNOR Hydromorphone HCl (Dilaudid) 1 mg IV Q4H PRN PRN Reason: Pain, Mild (1-3) Last Admin: 08/29/19 06:00 Dose: 1 mg Documented by: Admin: 08/28/19 20:28 Dose: 1 mg Documented by: Admin: 08/28/19 16:20 Dose: 1 mg Documented by: MAYNOR Hydroxyzine Pamoate (Vistaril) 25 mg PO Q6HR PRN PRN Reason: Nausea Lactated Ringer's (Lactated Ringers) 1,000 mls @ 100 mls/hr IV CONT [facility] Last Admin: 08/28/19 15:01 Dose: 100 mls/hr Documented by: Infusion: 08/28/19 15:01 Dose: 100 mls/hr Documented by: Admin: 08/28/19 13:53 Dose: 100 mls/hr Documented by: Infusion: 08/28/19 13:53 Dose: 100 mls/hr Documented by: Admin: 08/28/19 04:20 Dose: 100 mls/hr Documented by: Infusion: 08/28/19 02:16 Dose: 100 mls/hr Documented by: Admin: 08/27/19 16:16 Dose: 100 mls/hr Documented by: MAYNOR Levofloxacin (Levaquin) 500 mg in 100 mls @ 100 mls/hr IV Q24H [facility] Last Infusion: 08/28/19 10:16 Dose: 0 mls/hr Documented by: Admin: 08/28/19 09:03 Dose: 100 mls/hr Documented by: ESDRAS Insulin Aspart (Novolog Flexpen) 0 unit SUBCUT ACHS [facility]; Protocol Last Admin: 08/28/19 20:35 Dose: Not Given Documented by: Admin: 08/28/19 12:54 Dose: 2 unit Documented by: ESDRAS Cosigned by: GREGORIO Insulin Human NPH (Humulin N) 15 unit SUBCUT BIDAC [facility] Last Admin: 08/28/19 16:13 Dose: 15 unit Documented by: MAYNOR Cosigned by: FRANCHESKA Admin: 08/28/19 12:38 Dose: Not Given Documented by: Admin: 08/27/19 19:01 Dose: Not Given Documented by: MAYNOR Lisinopril (Zestril) 10 mg PO DAILY [facility] Last Admin: 08/28/19 09:06 Dose: Not Given Documented by: ESDRAS Lorazepam (Ativan) 1 mg PO Q4HR PRN PRN Reason: Anxiety Last Admin: 08/28/19 13:53 Dose: 1 mg Documented by: ESDRAS Naloxone HCl (Narcan) 0.2 mg IV Q2MIN PRN PRN Reason: Opiate Reversal Nicotine (Nicoderm) 14 mg TOP DAILY [facility] Last Admin: 08/28/19 13:53 Dose: 14 mg Documented by: ESDRAS Ondansetron HCl (Zofran) 4 mg IV Q8HR PRN PRN Reason: Nausea And Vomiting Last Admin: 08/27/19 16:25 Dose: 4 mg Documented by: MAYNOR Pantoprazole Sodium (Protonix) 40 mg PO 0700 [facility] Last Admin: 08/28/19 06:26 Dose: 40 mg Documented by: KWADWO Zolpidem Tartrate (Ambien) 10 mg PO BEDTIME PRN PRN Reason: Sleep Last Admin: 08/28/19 21:58 Dose: 10 mg Documented by: Admin: 08/27/19 21:53 Dose: 10 mg Documented by: MAYNOR Discontinued Medications Hydromorphone HCl (Dilaudid) 1 mg IM NOW ONE Stop: 08/27/19 07:27 Last Admin: 08/27/19 07:41 Dose: 1 mg Documented by: BTONER Hydromorphone HCl (Dilaudid) 1 mg IV NOW ONE Stop: 08/27/19 09:18 Last Admin: 08/27/19 09:26 Dose: 1 mg Documented by: BTONER Hydromorphone HCl (Dilaudid) 1 mg IV Q6HR PRN PRN Reason: Pain, Severe (7-10) Last Admin: 08/28/19 10:55 Dose: 1 mg Documented by: Admin: 08/28/19 05:34 Dose: 1 mg Documented by: Admin: 08/27/19 23:49 Dose: 1 mg Documented by: Admin: 08/27/19 16:40 Dose: 1 mg Documented by: MAYNOR Sodium Chloride (Normal Saline 0.9%) 1,000 mls @ 1,000 mls/hr IV BOLUS ONE Stop: 08/27/19 07:17 Last Infusion: 08/27/19 07:10 Dose: 0 mls/hr Documented by: MARIA R Admin: 08/27/19 06:29 Dose: 1,000 mls/hr Documented by: MARIA R Levofloxacin (Levaquin) 750 mg in 150 mls @ 100 mls/hr IV NOW ONE Stop: 08/27/19 09:51 Last Infusion: 08/27/19 11:10 Dose: 0 mls/hr Documented by: Admin: 08/27/19 09:26 Dose: 100 mls/hr Documented by: PIPER Insulin Aspart (Novolog) 0 unit SUBCUT [facility]; Protocol Last Admin: 08/28/19 13:02 Dose: Not Given Documented by: Admin: 08/28/19 09:19 Dose: Not Given Documented by: Admin: 08/27/19 22:31 Dose: 1 unit Documented by: MAYNOR Cosigned by: FRANCHESKA Admin: 08/27/19 19:01 Dose: Not Given Documented by: Admin: 08/27/19 16:17 Dose: Not Given Documented by: MAYNOR Lorazepam (Ativan) 1 mg IV NOW ONE Stop: 08/27/19 11:39 Last Admin: 08/27/19 11:47 Dose: 1 mg Documented by: PIPER Nicotine (Nicoderm) 14 mg TOP NOW ONE Stop: 08/27/19 15:38 Last Admin: 08/27/19 16:41 Dose: 14 mg Documented by: MAYNOR Ondansetron HCl (Zofran) 4 mg IV NOW ONE Stop: 08/27/19 06:19 Last Admin: 08/27/19 07:36 Dose: Not Given Documented by: PIPER Ondansetron HCl (Zofran Odt) 4 mg SL NOW ONE Stop: 08/27/19 07:27 Last Admin: 08/27/19 07:42 Dose: 4 mg Documented by: PIPER Vital Signs Vital signs: Vital Signs - 8 hr 08/27/19 06:18 Temperature 97.3 F L Pulse Rate 112 H Respiratory Rate 14 Blood Pressure 133/83 Pulse Oximetry 100 <Lyle Roman DO - Last Filed: 08/27/19 18:33> Course Course Narrative: 54-year-old female with chronic illness received in sign-out f [facility] Dr. Drew. I performed an independent history and physical exam. She has had fever and shaking chills with nausea, vomiting, diarrhea and back pain. Her urine culture is reviewed and noted Acinetobacter, a new ?bug? for her. Outpatient cefdinir unlikely to provide coverage. Levaquin, fluids, pain control and nausea ordered Orders Ordered: Acetaminophen (Tylenol) 650 mg PO Q6HR PRN PRN Reason: Fever/Mild Pain (1-3) Hydrocodone Bitart/Acetaminophen (Sophia 5/325) 1 tab PO Q4HR PRN PRN Reason: Pain, Moderate (4-6) Last Admin: 08/28/19 22:02 Dose: 1 tab Documented by: Admin: 08/28/19 17:31 Dose: 1 tab Documented by: Admin: 08/28/19 12:49 Dose: 1 tab Documented by: Admin: 08/28/19 09:17 Dose: 1 tab Documented by: Admin: 08/28/19 04:48 Dose: 1 tab Documented by: Admin: 08/27/19 21:53 Dose: 1 tab Documented by: MAYNOR Albuterol (Ventolin Hfa) 2 puff INH RTQ6HR PRN PRN Reason: Shortness Of Breath Amitriptyline HCl (Elavil) 150 mg PO BEDTIME [facility] Last Admin: 08/28/19 20:27 Dose: 150 mg Documented by: Admin: 08/27/19 21:48 Dose: 150 mg Documented by: MAYNOR Duloxetine HCl (Cymbalta) 60 mg PO DAILY [facility] Last Admin: 08/28/19 09:03 Dose: 60 mg Documented by: ESDRAS Enoxaparin Sodium (Lovenox) 40 mg SUBCUT DAILY [facility] Last Admin: 08/28/19 09:03 Dose: 40 mg Documented by: Admin: 08/27/19 16:15 Dose: 40 mg Documented by: MAYNOR Gabapentin (Neurontin) 600 mg PO TID [facility] Last Admin: 08/28/19 20:27 Dose: 600 mg Documented by: Admin: 08/28/19 15:01 Dose: 600 mg Documented by: Admin: 08/28/19 09:03 Dose: 600 mg Documented by: Admin: 08/27/19 21:53 Dose: 600 mg Documented by: Admin: 08/27/19 16:16 Dose: 600 mg Documented by: MAYNOR Hydromorphone HCl (Dilaudid) 1 mg IV Q4H PRN PRN Reason: Pain, Mild (1-3) Last Admin: 08/29/19 06:00 Dose: 1 mg Documented by: Admin: 08/28/19 20:28 Dose: 1 mg Documented by: Admin: 08/28/19 16:20 Dose: 1 mg Documented by: MAYNOR Hydroxyzine Pamoate (Vistaril) 25 mg PO Q6HR PRN PRN Reason: Nausea Lactated Ringer's (Lactated Ringers) 1,000 mls @ 100 mls/hr IV CONT [facility] Last Admin: 08/28/19 15:01 Dose: 100 mls/hr Documented by: Infusion: 08/28/19 15:01 Dose: 100 mls/hr Documented by: Admin: 08/28/19 13:53 Dose: 100 mls/hr Documented by: Infusion: 08/28/19 13:53 Dose: 100 mls/hr Documented by: Admin: 08/28/19 04:20 Dose: 100 mls/hr Documented by: Infusion: 08/28/19 02:16 Dose: 100 mls/hr Documented by: Admin: 08/27/19 16:16 Dose: 100 mls/hr Documented by: MAYNOR Levofloxacin (Levaquin) 500 mg in 100 mls @ 100 mls/hr IV Q24H [facility] Last Infusion: 08/28/19 10:16 Dose: 0 mls/hr Documented by: Admin: 08/28/19 09:03 Dose: 100 mls/hr Documented by: ESDRAS Insulin Aspart (Novolog Flexpen) 0 unit SUBCUT ACHS [facility]; Protocol Last Admin: 08/28/19 20:35 Dose: Not Given Documented by: Admin: 08/28/19 12:54 Dose: 2 unit Documented by: ESDRAS Cosigned by: GREGORIO Insulin Human NPH (Humulin N) 15 unit SUBCUT BIDAC [facility] Last Admin: 08/28/19 16:13 Dose: 15 unit Documented by: JGOLD Cosigned by: FRANCHESKA Admin: 08/28/19 12:38 Dose: Not Given Documented by: Admin: 08/27/19 19:01 Dose: Not Given Documented by: MAYNOR Lisinopril (Zestril) 10 mg PO DAILY [facility] Last Admin: 08/28/19 09:06 Dose: Not Given Documented by: ESDRAS Lorazepam (Ativan) 1 mg PO Q4HR PRN PRN Reason: Anxiety Last Admin: 08/28/19 13:53 Dose: 1 mg Documented by: ESDRAS Naloxone HCl (Narcan) 0.2 mg IV Q2MIN PRN PRN Reason: Opiate Reversal Nicotine (Nicoderm) 14 mg TOP DAILY [facility] Last Admin: 08/28/19 13:53 Dose: 14 mg Documented by: ESDRAS Ondansetron HCl (Zofran) 4 mg IV Q8HR PRN PRN Reason: Nausea And Vomiting Last Admin: 08/27/19 16:25 Dose: 4 mg Documented by: MAYNOR Pantoprazole Sodium (Protonix) 40 mg PO 0700 [facility] Last Admin: 08/28/19 06:26 Dose: 40 mg Documented by: KWADWO Zolpidem Tartrate (Ambien) 10 mg PO BEDTIME PRN PRN Reason: Sleep Last Admin: 08/28/19 21:58 Dose: 10 mg Documented by: Admin: 08/27/19 21:53 Dose: 10 mg Documented by: MAYNOR Discontinued Medications Hydromorphone HCl (Dilaudid) 1 mg IM NOW ONE Stop: 08/27/19 07:27 Last Admin: 08/27/19 07:41 Dose: 1 mg Documented by: INGAONER Hydromorphone HCl (Dilaudid) 1 mg IV NOW ONE Stop: 08/27/19 09:18 Last Admin: 08/27/19 09:26 Dose: 1 mg Documented by: BTONER Hydromorphone HCl (Dilaudid) 1 mg IV Q6HR PRN PRN Reason: Pain, Severe (7-10) Last Admin: 08/28/19 10:55 Dose: 1 mg Documented by: Admin: 08/28/19 05:34 Dose: 1 mg Documented by: Admin: 08/27/19 23:49 Dose: 1 mg Documented by: Admin: 08/27/19 16:40 Dose: 1 mg Documented by: MAYNOR Sodium Chloride (Normal Saline 0.9%) 1,000 mls @ 1,000 mls/hr IV BOLUS ONE Stop: 08/27/19 07:17 Last Infusion: 08/27/19 07:10 Dose: 0 mls/hr Documented by: MARIA R Admin: 08/27/19 06:29 Dose: 1,000 mls/hr Documented by: MARIA R Levofloxacin (Levaquin) 750 mg in 150 mls @ 100 mls/hr IV NOW ONE Stop: 08/27/19 09:51 Last Infusion: 08/27/19 11:10 Dose: 0 mls/hr Documented by: Admin: 08/27/19 09:26 Dose: 100 mls/hr Documented by: PIPER Insulin Aspart (Novolog) 0 unit SUBCUT [facility]; Protocol Last Admin: 08/28/19 13:02 Dose: Not Given Documented by: Admin: 08/28/19 09:19 Dose: Not Given Documented by: Admin: 08/27/19 22:31 Dose: 1 unit Documented by: MAYNOR Cosigned by: FRANCHESKA Admin: 08/27/19 19:01 Dose: Not Given Documented by: Admin: 08/27/19 16:17 Dose: Not Given Documented by: MAYNOR Lorazepam (Ativan) 1 mg IV NOW ONE Stop: 08/27/19 11:39 Last Admin: 08/27/19 11:47 Dose: 1 mg Documented by: PIPER Nicotine (Nicoderm) 14 mg TOP NOW ONE Stop: 08/27/19 15:38 Last Admin: 08/27/19 16:41 Dose: 14 mg Documented by: MAYNOR Ondansetron HCl (Zofran) 4 mg IV NOW ONE Stop: 08/27/19 06:19 Last Admin: 08/27/19 07:36 Dose: Not Given Documented by: PIPER Ondansetron HCl (Zofran Odt) 4 mg SL NOW ONE Stop: 08/27/19 07:27 Last Admin: 08/27/19 07:42 Dose: 4 mg Documented by: BTONER Vital Signs Vital signs: Vital Signs - 8 hr 08/27/19 06:18 Temperature 97.3 F L Pulse Rate 112 H Respiratory Rate 14 Blood Pressure 133/83 Pulse Oximetry 100 MDM - Nausea/Vomiting/Diarrhea <Brenton Drew DO - Last Filed: 08/29/19 07:11> Lab Data Result diagrams: 08/27/19 09:20 08/27/19 09:20 Labs: Lab Results 08/27/19 08/27/19 08/27/19 Range/Units 09:20 09:20 09:20 WBC 10.4 (4.5-11.0) X10^3/uL RBC 3.72 L (4.0-5.2) X10^6/uL Hgb 12.6 (12.0-16.0) g/dL Hct 36.6 (36-46) % MCV 98.3 (80-100) fL MCH 33.8 (26-34) PG MCHC 34.4 (30-36) % RDW 14.3 (11.6-14.8) % Plt Count 326 (150-400) X10^3/uL Neut % (Auto) 62.4 (50-75) % Lymph % (Auto) 29.7 (25-40) % Hunt % (Auto) 7.0 (3-14) % Eos % (Auto) 0.2 L (2-4) % Baso % (Auto) 0.7 (0-2) % Neut # (Auto) 6500 (5431-1012) /uL Lymph # (Auto) 3100 (8516-7992) /uL Hunt # (Auto) 700 (0-900) /uL Eos # (Auto) 0 (0-450) /uL Baso # (Auto) 100 (0-100) /uL Sodium 133 L (137-145) mmol/L Potassium 4.7 (3.4-5.1) mmol/L Chloride 104 (98-107) mmol/L Carbon Dioxide 21 L (22-32) mmol/L BUN 17 (7-17) mg/dL Creatinine 0.52 (0.52-1.04) mg/dL Estimated GFR > 60.0 (>60) mL/min BUN/Creatinine Ratio 32.7 H (6-22) Glucose 151 H (70-100) mg/dL Lactate 1.0 (0.7-2.1) mmol/L Calcium 9.7 (8.4-10.2) mg/dL Total Bilirubin 0.4 (0.2-1.3) mg/dL AST 273 H (14-36) IU/L ALT 83 H (<35) IU/L Alkaline Phosphatase 259 H (38-126) U/L Total Protein 7.5 (6.3-8.2) g/dL Albumin 4.0 (3.5-5.0) g/dL Globulin 3.5 (1.7-4.1) g/dL Albumin/Globulin Ratio 1.1 (1.0-2.8) Lipase 19 L (23-300) U/L MDM Narrative Medical decision making narrative: Care turned over to Dr Roman at change of shift to follow up on IV access and labs and dispo. <Lyle Roman DO - Last Filed: 08/27/19 18:33> Lab Data Labs: Lab Results 08/27/19 08/27/19 08/27/19 Range/Units 09:20 09:20 09:20 WBC 10.4 (4.5-11.0) X10^3/uL RBC 3.72 L (4.0-5.2) X10^6/uL Hgb 12.6 (12.0-16.0) g/dL Hct 36.6 (36-46) % MCV 98.3 (80-100) fL MCH 33.8 (26-34) PG MCHC 34.4 (30-36) % RDW 14.3 (11.6-14.8) % Plt Count 326 (150-400) X10^3/uL Neut % (Auto) 62.4 (50-75) % Lymph % (Auto) 29.7 (25-40) % Hunt % (Auto) 7.0 (3-14) % Eos % (Auto) 0.2 L (2-4) % Baso % (Auto) 0.7 (0-2) % Neut # (Auto) 6500 (0892-6037) /uL Lymph # (Auto) 3100 (1913-0182) /uL Hunt # (Auto) 700 (0-900) /uL Eos # (Auto) 0 (0-450) /uL Baso # (Auto) 100 (0-100) /uL Sodium 133 L (137-145) mmol/L Potassium 4.7 (3.4-5.1) mmol/L Chloride 104 (98-107) mmol/L Carbon Dioxide 21 L (22-32) mmol/L BUN 17 (7-17) mg/dL Creatinine 0.52 (0.52-1.04) mg/dL Estimated GFR > 60.0 (>60) mL/min BUN/Creatinine Ratio 32.7 H (6-22) Glucose 151 H (70-100) mg/dL Lactate 1.0 (0.7-2.1) mmol/L Calcium 9.7 (8.4-10.2) mg/dL Total Bilirubin 0.4 (0.2-1.3) mg/dL AST 273 H (14-36) IU/L ALT 83 H (<35) IU/L Alkaline Phosphatase 259 H (38-126) U/L Total Protein 7.5 (6.3-8.2) g/dL Albumin 4.0 (3.5-5.0) g/dL Globulin 3.5 (1.7-4.1) g/dL Albumin/Globulin Ratio 1.1 (1.0-2.8) Lipase 19 L (23-300) U/L Imaging Data Chest x-ray: Radiologist's Impression: [address] [address] XRay Report Signed Patient: Melvi Gibbs [facility]#: [id number] : 1965Acct:[id number] Age/Sex: 54 / FDate of Service: 08/27/19 Loc: ED Accession Number: [id number] Procedure: XR chest for PICC 1V Ordering Provider: Lyle Roman D.O. PROCEDURE: XR CHEST FOR PICC 1V INDICATIONS: line placement COMPARISON: [facility], CR, XR CHEST 1V, 08/19/2019, 9:11. [facility], CR, XR CHEST 1V, 08/13/2019, 14:36. FINDINGS: PICC was placed by the intravenous therapy team from the right side. Fluoroscopic spot film demonstrates the tip of PICC projecting to the area of distal SVC. IMPRESSION: Tip of PICC projects to the area of the distal SVC Dictated by: Akbar Ortiz M.D. on 08/27/2019 at 9:14 Approved by: Akbar Ortiz M.D. on 08/27/2019 at 9:29 Discharge Plan Departure Patient Disposition: Admitted As Inpatient Clinical Impression: Pyelonephritis, Diarrhea, Failure of outpatient treatment Discharge Date/Time: 08/27/19 12:04 Referrals: Fadi Ko DO [Primary Care Provider] - Admit Date/Time: 08/27/19 10:39 Admit Provider: Angeles Post
--- NOTE | 2019-08-27 07:10 | PC.NURSE ---
meds scanned before IV access established. No saline or zofran given.
[2019-08-27] MEDS: HYDROMORPHONE 1 MG INJ IM (07:41)
[2019-08-27] MEDS: ONDANSETRON 4 MG ODT SL (07:42)
--- NOTE | 2019-08-27 07:56 | PC.NURSE ---
reports diarrhea once yesterday and vomiting once today, nausea continues. unable to get iv access, placed called for picc line. provided medication po and im to help with pain and nausea until iv access gained.
--- NOTE | 2019-08-27 08:41 | DI.RAD.S_ITS ---
PROCEDURE: XR CHEST FOR PICC 1V INDICATIONS: line placement COMPARISON: [facility], [facility], XR CHEST 1V, 08/19/2019, 9:11. [facility], [facility], XR CHEST 1V, 08/13/2019, 14:36. FINDINGS: PICC was placed by the intravenous therapy team from the right side. Fluoroscopic spot film demonstrates the tip of PICC projecting to the area of distal SVC. IMPRESSION: Tip of PICC projects to the area of the distal SVC Dictated by: Akbar Ortiz M.D. on 08/27/2019 at 9:14 Approved by: Akbar Ortiz M.D. on 08/27/2019 at 9:29
[2019-08-27] MEDS: levoFLOXacin 750 MG/150 ML PIGGYBACK 100 MG IV (09:26)
[2019-08-27] MEDS: HYDROMORPHONE 1 MG INJ IV ×3 (09:26→23:49)
[2019-08-27 09:28] LABS: Add Manual Diff / Slide Review NO; Basophils Absolute Auto 100 /uL (0-100); Basophils Percent Auto 0.7 % (0-2); Eosinophils Absolute Auto 0 /uL (0-450); Eosinophils Percent Auto 0.2 % (2-4); Hematocrit 36.6 % (36-46); Hemoglobin 12.6 g/dL (12.0-16.0); Lymphocytes Absolute Auto 3100 /uL (1100-4500); Lymphocytes Percent Auto 29.7 % (25-40); Mean Corpuscular HGB Conc 34.4 % (30-36); Mean Corpuscular Hemoglobin 33.8 PG (26-34); Mean Corpuscular Volume 98.3 fL (80-100); Monocytes Absolute Auto 700 /uL (0-900); Neutrophils Absolute Auto 6500 /uL (1500-7000); Neutrophils Percent Auto 62.4 % (50-75); Platelet Count 326 X10^3/uL (150-400); Red Blood Cell Count 3.72 X10^6/uL (4.0-5.2); Red Cell Distribution Width 14.3 % (11.6-14.8); White Blood Cell Count 10.4 X10^3/uL (4.5-11.0)
[2019-08-27 09:45] LABS: Alanine Aminotransferase 83 IU/L (<35); Albumin Globulin Ratio 1.1 (1.0-2.8); Alkaline Phosphatase 259 U/L (38-126); Aspartate Aminotransferase 273 IU/L (14-36); BUN Creatinine Ratio 32.7 (6-22); Bilirubin Total 0.4 mg/dL (0.2-1.3); Blood Urea Nitrogen 17 mg/dL (7-17); Calcium 9.7 mg/dL (8.4-10.2); Carbon Dioxide 21 mmol/L (22-32); Chloride 104 mmol/L (98-107); Estimated Glomerular Filt Rate > 60.0 mL/min (>60); Globulin 3.5 g/dL (1.7-4.1); Glucose 151 mg/dL (70-100); HEMOLYSIS < 15 (0-50); Lipase 19 U/L (23-300); Potassium 4.7 mmol/L (3.4-5.1); Sodium 133 mmol/L (137-145); Total Protein 7.5 g/dL (6.3-8.2)
--- NOTE | 2019-08-27 10:31 | PC.NURSE ---
KILEY Andersen came to start a PICC line. pt refused 2nd set of Blood Cultures. reported to dr mckeon. ok'd to start antibiotics as ordered. pt is tearful on and off stating i'm fighting for my life asked pt if she would like me to request [employer], perhaps help set up for therapy but she declined.
[2019-08-27 11:02] VITALS: BP 154/113; PULSE 104; RESP 28; O2SAT 98
[2019-08-27] MEDS: LORazepam 2 MG/ML INJ 1 MG IV (11:47)
[2019-08-27 12:00] VITALS: BP 153/107; PULSE 107; RESP 20; TEMP 36.6; O2SAT 97; BMI 15.8
--- NOTE | 2019-08-27 13:44 | PC.ADMIT ---
[email or web address] Admission Note: The patient,Melvi Gibbs,54 y/o, was given written information regarding hospital policies, unit procedures and contact persons. Patient's smoking status: Current every day smoker. Vital Signs - 8 hr 08/27/19 06:18 08/27/19 11:02 08/27/19 12:00 Temperature 97.3 F L 97.8 F Pulse Rate 112 H 104 H 107 H Respiratory Rate 14 28 H 20 Blood Pressure 133/83 153/107 H Blood Pressure [Right Wrist] 154/113 H Pulse Oximetry 100 98 97 Pt admitted to room 204 from ED via stretcher at 1200. Pt stood and walked with steady gait to bed. Initially tearful and anxious r/t hospital stay but able to calm with careful explanation. Admission assessment and med rec completed per pt history. Educated to room, routine, use of call light. Educated to high fall risk and instructed pt to wait for assistance before getting OOB. Pt verbalizes understanding and is agreeable.
[2019-08-27 15:10] VITALS: BP 133/84; PULSE 93; RESP 16; TEMP 36.9; O2SAT 97
[2019-08-27] MEDS: ENOXAPARIN 40 MG/0.4 ML SYRINGE SUBCUT (16:15)
[2019-08-27] MEDS: GABAPENTIN 600 MG TABLET PO ×2 (16:16→21:53)
[2019-08-27] MEDS: LACTATED RINGERS 1,000 ML 100 ML IV (16:16)
[2019-08-27] MEDS: ONDANSETRON 4 MG/2 ML INJ IV (16:25)
[2019-08-27] MEDS: NICOTINE 14 PATCH 14 MG TOP (16:41)
--- NOTE | 2019-08-27 17:19 | PC.NURSE ---
171 -Pt refused to have telemetry placed. I have been poked and prodded enough, I don't need it. Notified primary RN and MANAGER ENGINE, will attempt to place at a later time.
--- NOTE | 2019-08-27 18:33 | PM.HP.1 ---
History of Present Illness History of Present Illness Date Patient Seen: 08/27/19 Chief complaint: diarrhea, puking Narrative: The patient is a 54-year-old female with a history of type 2 diabetes, interstitial nephritis, resulting in a urostomy tube placement. She has had frequent urinary tract infections. Patient most recently was diagnosed with a urinary tract infection about 1 week ago. She was started on cefpodoxime. Unfortunately the bacteria was resistant. The patient has had multiple urinary tract infections and noted that she was nauseated with vomiting. If she felt ill she presented to the ED for evaluation. In the emergency room her urine cultures were checked and in fact were resistant to ceftriaxone. She was given IV levofloxacin. Patient was given IV hydration. Her lactate was less than 2. She was admitted to the hospital for inpatient treatment of acute pyelonephritis. Patient does report bilateral kidney pain. She was hospitalized at [facility] 1 month ago for severe pyelonephritis, sepsis, respiratory failure requiring intubation. After 2 weeks she was discharged from the hospital but unfortunately developed another urinary tract infection. She has no shortness of breath. No chest pain. No headache blurred vision or double vision. She did have nausea and vomiting earlier which has subsided she has no constipation, diarrhea, or bright but blood per rectum. Patient is admitted to the hospital for treatment of acute pyelonephritis. Patient notes that she has lost 18 lb since her hospitalization last month. Patient History Medical History Anxiety (Chronic) Closed fracture of left humerus (Inactive) Endometriosis (Chronic) Fibromyalgia (Chronic) Heart palpitations (Chronic) History of asthma (Chronic) History of chronic hypertension (Chronic) History of COPD (Chronic) History of depression (Chronic) History of gastrointestinal ulcer (Chronic) History of kidney stones (Chronic) History of migraine (Chronic) History of panic attacks (Chronic) History of type 2 diabetes mellitus (Chronic) Interstitial cystitis (Chronic) UTI (urinary tract infection) (Chronic) Surgical History History of urostomy (Acute) S/P appendectomy (Resolved) Status post hysterectomy (Resolved) Family & Social History Family History (Updated 08/27/19 @ 18:35 by Angeles Post MD) Mother Diabetes mellitus Other Family history non-contributory Social History: household members spouse Prior Living Arrangements House Safety & Behavioral: Feels Safe in Current Yes Environment Been Physically Hurt or No Threatened By a Person Tobacco & Substance use: Tobacco type cigarettes Smoking Status Current every day smoker Smoking packs per day 0.5 alcohol intake current alcohol intake frequency holiday/special occasion Substance Use Type marijuana,former substance user Meds Home Medications and Allergies Home Medications Medication Instructions Recorded Confirmed Type albuterol sulfate [Proventil HFA] 2 puff INH Q4HP PRN #0 01/08/13 08/27/19 History hydroxyzine HCl 25 mg PO TID #0 01/08/13 08/27/19 History magnesium oxide 400 mg PO BEDTIME #0 tab 01/08/13 08/27/19 History duloxetine 60 mg PO DAILY #0 07/04/17 08/27/19 History gabapentin [Neurontin] 600 mg PO TID #0 07/04/17 08/27/19 History multivitamin [Multiple Vitamins] 1 tab PO DAILY #0 07/04/17 08/27/19 History zolpidem [Ambien] 10 mg PO HS PRN #0 07/04/17 08/27/19 History Probiotic 1 tab PO BID 09/26/17 08/27/19 History amitriptyline 150 mg PO BEDTIME 09/26/17 08/27/19 History lisinopril 10 mg PO DAILY 09/26/17 08/27/19 History omeprazole 20 mg PO DAILY 09/26/17 08/27/19 History ondansetron 1 tab TRANSLINGUAL Q6H PRN 09/26/17 08/27/19 History potassium chloride 20 meq PO QNOON 09/26/17 08/27/19 History vitamin E 1 cap PO DAILY 09/26/17 08/27/19 History lorazepam 0.5 mg PO BID PRN 05/30/18 08/27/19 History insulin NPH isoph U-100 human 15 unit SUBCUT BID PRN 05/17/19 08/27/19 History [Humulin N NPH Insulin KwikPen] methocarbamol 1,000 mg PO Q6H PRN 05/17/19 08/27/19 History Allergies Allergy/AdvReac Type Severity Reaction Status Date / Time mupirocin Allergy Unknown Verified 08/27/19 06:24 naproxen Allergy Unknown Verified 08/27/19 06:24 Penicillins Allergy Unknown SINCE Verified 08/27/19 06:24 CHILDHOOD droperidol AdvReac Unknown Verified 08/27/19 06:24 fenofibrate [FENOFIBRATE] AdvReac Unknown Verified 08/27/19 06:24 ibuprofen AdvReac Unknown NAUSEA Verified 08/27/19 06:24 metformin [METFORMIN] AdvReac Unknown Verified 08/27/19 06:24 metoclopramide AdvReac Unknown BECAME Verified 08/27/19 06:24 JITTERY AND ANXIOUS nitrofurantoin AdvReac Unknown NAUSEA Verified 08/27/19 06:24 Review of Systems Review of Systems ROS: Yes All systems reviewed with the patient and are negative except as otherwise documented Exam Vital Signs (past 8 hours): - 08/27/19 11:02 08/27/19 12:00 08/27/19 15:10 Temperature 97.8 F 98.4 F Pulse Rate 104 H 107 H 93 H Respiratory Rate 28 H 20 16 Blood Pressure 153/107 H 133/84 Blood Pressure [Right Wrist] 154/113 H Pulse Oximetry 98 97 97 Oxygen Delivery Method Room Air Oxygen Flow Rate 0 Narrative Exam Narrative: Pleasant ill-appearing female lying in bed HEENT: Normocephalic atraumatic, sclerae anicteric extraocular muscles are intact, oropharynx is clear, neck is supple Lungs: Clear to auscultation Cardiac exam: Regular rate and rhythm normal S1-S2 with a 2/6 systolic ejection murmur Abdomen soft nontender nondistended, ileostomy in place clear yellow urine is in her ileostomy bag, there is no exudate or erythema noted at the stoma site, no hepatosplenomegaly Extremities: No edema Neuro exam nonfocal Objective Labs Result Diagrams: 08/27/19 09:20 08/27/19 09:20 Labs: Laboratory Results - last 24 hr 08/27/19 08/27/19 08/27/19 09:20 09:20 09:20 WBC 10.4 RBC 3.72 L Hgb 12.6 Hct 36.6 MCV 98.3 MCH 33.8 MCHC 34.4 RDW 14.3 Plt Count 326 Neut % (Auto) 62.4 Lymph % (Auto) 29.7 Carlton % (Auto) 7.0 Eos % (Auto) 0.2 L Baso % (Auto) 0.7 Neut # (Auto) 6500 Lymph # (Auto) 3100 [place] # (Auto) 700 Eos # (Auto) 0 Baso # (Auto) 100 Sodium 133 L Potassium 4.7 Chloride 104 Carbon Dioxide 21 L BUN 17 Creatinine 0.52 Estimated GFR > 60.0 BUN/Creatinine Ratio 32.7 H Glucose 151 H Lactate 1.0 Calcium 9.7 Total Bilirubin 0.4 AST 273 H ALT 83 H Alkaline Phosphatase 259 H Total Protein 7.5 Albumin 4.0 Globulin 3.5 Albumin/Globulin Ratio 1.1 Lipase 19 L Assessment & Plan Assessment & Plan narrative: Impression 1. 54-year-old female admitted to the hospital for acute pyelonephritis -urine cultures growing Acinetobacter, resistant to ceftriaxone sensitive to levofloxacin -serum lactate 1/o -continue IV hydration 2. Type 2 diabetes -will continue her home insulin dose -will check likely heme 3. GERD -will continue PPI 4. Hypertension -continue lisinopril Anticipate patient will be able to be discharged home in 1-2 days. Will await blood cultures, continue IV levofloxacin. Patient will be placed on Lovenox for DVT prophylaxis she indicates she is DNR, will note that her record accordingly. Patient will be admitted under observation. -
[2019-08-27 19:22] VITALS: BP 137/90; PULSE 96; RESP 17; TEMP 36.2; O2SAT 99
[2019-08-27] MEDS: AMITRIPTYLINE 75 MG TABLET 150 MG PO (21:48)
[2019-08-27] MEDS: HYDROCODONE/ACET 5/325 TABLET 1 TAB PO (21:53)
[2019-08-27] MEDS: ZOLPIDEM 5 MG TABLET 10 MG PO (21:53)
[2019-08-27] MEDS: INSULIN ASPART 100 UNIT/ML 10ML VIAL SUBCUT (22:31)
--- NOTE | 2019-08-27 22:52 | PC.NURSE ---
Pt has been very emotionally labile, frequent crying, followed by stating I'm going to leave. Pt declined phone calls from , although later said that her son in law is the only one who can change the urostomy bag. This RN spoke with CURTAIN FRAMER and together clarified with pt that she would stay if son in law came in to change bag; urostomy bag changed and pt's IV restarted. AT this time, pt is not wanting to use telemetry; pt reports pain to left shoulder and bilateral flank; Independent in room
[2019-08-27 23:00] VITALS: BP 90/57; PULSE 102; RESP 18; TEMP 36.2; O2SAT 98
--- NOTE | 2019-08-27 23:51 | PC.NURSE ---
2300 - Pt requesting visit from own clergy. Pastoral care consult placed, requesting assistance.
[2019-08-28] VITALS (8 sets, daily range): BP systolic 103–176; BP diastolic 63–96; PULSE 82–107; RESP 16–20; TEMP 36.3–36.7; O2SAT 94–100; BMI 15.8
[2019-08-28] MEDS: LACTATED RINGERS 1,000 ML 100 ML IV ×3 (04:20→15:01)
[2019-08-28] MEDS: HYDROCODONE/ACET 5/325 TABLET 1 TAB PO ×5 (04:48→22:02)
[2019-08-28] MEDS: HYDROMORPHONE 1 MG INJ IV ×4 (05:34→20:28)
[2019-08-28] MEDS: PANTOPRAZOLE 40 MG TABLET PO (06:26)
[2019-08-28] MEDS: levoFLOXacin 500 MG/100 ML PIGGYBACK 100 MG IV (09:03)
[2019-08-28] MEDS: ENOXAPARIN 40 MG/0.4 ML SYRINGE SUBCUT (09:03)
[2019-08-28] MEDS: DULOXETINE 30 MG CAPSULE 60 MG PO (09:03)
[2019-08-28] MEDS: GABAPENTIN 600 MG TABLET PO ×3 (09:03→20:27)
--- NOTE | 2019-08-28 12:04 | CM.DANOTE ---
DCP: Case received, EMR reviewed and checked on patient during team rounds. Introduced self and role, but patient did not want to engage in any conversations. Was able to contact , Dwayne, via phone in order to obtain information regarding patient's baseline activity status, as well as health information. DCP assessment completed with information currently available. Patient is a 54 year old female who admitted yesterday morning to the care of the hospitalist team. PCP: Dr. Ko. Payer: [facility]. Patient came to the hospital via private vehicle secondary to vomiting, loose stools, as well as weakness. Patient holds current diagnosis of acute pylenephritis, and is receiving IV antibiotics. Met with patient during team rounds. She would not answer any questions or engage in any conversation. Spoke with patient's , Dwayne. Confirmed that patient resides with him here in [place]. Patient has had several ER visits, and stated, it's mostly urinary infections. Asked if patient had any mental health issues, and/or if she has been seeing any therapists. stated that she has a history of anxiety and depression, which her primary care provider is managing. Patient has a urostomy. Confirmed with her that they order her supplies from [email or web address]. He mentioned that she normally changes her urostomy every 4 days, and does not trust anyone but Eduardo, their son-in-law, to change her bag. Patient is currently getting [facility] for O.T/Nursing. Called [facility], and spoke to Dionne to confirmed this, and gave them update. P.T. had been working with her from [employer], but they discharged her. stated that patient uses her cane at home. Let know that patient did not wish to engage in any conversation. He indicated that she is upset that she has to be here in the hospital, especially since she worries about her urostomy. Patient currently has a PICC line for IV ABO, due to her fragile veins. Discussed with Dr. Post, and patient should be able to go home on oral antibiotics as plan. P: DCP to continue to follow. Patient should be able to go home when she is stable, and can go on oral antibiotics pending culture. She will resume [facility]. If patient remains OBS, [facility] will not need resumption orders, only DC summary. Fanta Jean RN/Technical Account Representative.
--- NOTE | 2019-08-28 12:35 | PC.NURSE ---
Addendum entered by Brittnee Jauregui R.N. 08/28/19 13:59: Patient requesting pain medication for right flank and left shoulder pain. Given one tab 5/325mg [place]. Patient tolerated lunch without nausea. Requesting something for anxiety, Dr Post aware, orders received, given 1mg PO Ativan. Pt calm and pleasant, in room. Original Note: Patient alert, oriented rates pain to right flank and left shoulder 8/10, given 0ne 5/325 hydocodone. Denies nausea. BG was 145 and patient refused breakfast, sliding scale insulin and NPH [address] Sejal wong, will recheck at lunch 1200.
[2019-08-28] MEDS: INSULIN ASPART 100 UNIT/ML INSULN PEN SUBCUT (12:54)
[2019-08-28] MEDS: NICOTINE 14 PATCH 14 MG TOP (13:53)
[2019-08-28] MEDS: LORazepam 1 MG TABLET PO (13:53)
--- NOTE | 2019-08-28 15:28 | DIET.PN ---
Dietary Progress Note Assessment: 54y F admitted for chronic UTI c associated N/V/D referred to nutrition for malnutrition screening. Pt declined to see RD in person today, can check back in the morning. Per [facility] records pt has 13% unintended wt loss in 2mo c BMI 15.8 qualifying her for Severe Acute Protein-Calorie Malnutrition. It is unclear why pt lost this weight, but she was inpatient status at [facility] for 2w recently requiring intubation. HT: 167.6cm WT: 44.5kg (75% of [place] Body Weight) UBW: 55kg BMI: 15.8 (severe) Labs: elevated LFTs, BG on admit 220 H MNA: 6 malnourished Johnnie: 17 @ risk for skin breakdown Nutrition Diagnosis: Severe Acute PCM r/t unclear etiology and 2w inpatient hospitalization requiring intubation aeb 13% unintended wt loss in 2mo (severe), BMI 15.8 (severe), pt reports N/V/D at admit. Interventions: 1. To support PCM, recc ONS supplement based on pt preference, defer to Glucerna tid (providing 40% kcals and 50% PRO). Diet Order: HH/CCD EER: 1800kcal (30kcal/kg), 55g PRO (1.2g/kg) Monitoring/Evaluations: F/u Tuesday to provide DM ed
--- NOTE | 2019-08-28 15:52 | PC.NURSE ---
Patient refused blood pressure taken and wanting to go home .RN notified.
[2019-08-28] MEDS: INSULIN NPH 100 UNIT/ML VIAL 15 UNIT SUBCUT (16:13)
--- NOTE | 2019-08-28 17:06 | PM.PN.1 ---
Subjective Subjective Date Patient Seen: 08/28/19 Interval history: Patient is tearful today, she reports left shoulder pain, she also reports right kidney pain. She is particularly upset at being hospitalized again she has had some intermittent nausea in addition to pain Patient was admitted to the hospital yesterday for urinary tract infection due to Acinetobacter. She is now on levofloxacin which the organism is sensitive to. Exam Vital Signs (past 8 hours): - 08/28/19 12:00 08/28/19 13:21 08/28/19 15:45 Temperature 98.0 F 97.4 F L Pulse Rate 90 107 H Respiratory Rate 20 20 Blood Pressure 176/96 H 136/95 H Pulse Oximetry 100 100 Oxygen Delivery Method Room Air Oxygen Flow Rate 0 Narrative Exam Narrative: Tearful female Lungs: Clear to auscultation Cardiac exam: Regular rate and rhythm normal S1-S2 Abdomen: Soft nontender nondistended ileostomy in place, yellow urine in the back Extremities: No lower extremity edema left shoulder in a sling, shoulders tender to palpation Objective Labs Result Diagrams: 08/27/19 09:20 08/27/19 09:20 Assessment & Plan Assessment & Plan narrative: mpression 1. 54-year-old female admitted to the hospital for acute pyelonephritis -urine cultures growing Acinetobacter, resistant to ceftriaxone sensitive to levofloxacin -serum lactate 1.0 -discontinue IV hydration -continue levofloxacin 2. Type 2 diabetes -will continue her home insulin dose -w 3. GERD -will continue PPI 4. Hypertension -continue lisinopril 5. Anxiety -Ativan as needed 6. Shoulder fracture -continue pain medication Anticipate discharge home in 1-2 days -
--- NOTE | 2019-08-28 17:59 | PT.IIE ---
Current Diagnoses Tubulo-interstitial nephritis, not specified as acute or chronic (08/27/19) Surgical History (Last Reviewed 08/27/19 @ 18:35 by Angeles Post MD) History of urostomy (Acute) S/P appendectomy (Resolved) Status post hysterectomy (Resolved) Medical History (Last Reviewed 08/27/19 @ 18:35 by Angeles Post MD) Anxiety (Chronic) Closed fracture of left humerus (Inactive) Endometriosis (Chronic) Fibromyalgia (Chronic) Heart palpitations (Chronic) History of asthma (Chronic) History of chronic hypertension (Chronic) History of COPD (Chronic) History of depression (Chronic) History of gastrointestinal ulcer (Chronic) History of kidney stones (Chronic) History of migraine (Chronic) History of panic attacks (Chronic) History of type 2 diabetes mellitus (Chronic) Interstitial cystitis (Chronic) UTI (urinary tract infection) (Chronic) Physical Therapy Inpatient Evaluation/Re-Eval M1 PT/OT-IP Prior Functional Status Start: 08/28/19 17:33 Freq: NEEDED Status: Active Protocol: Document 08/28/19 17:34 AW (Rec: 08/28/19 17:59 AW [id number]) Medical Review Prior Functional Status Medical History Reviewed Yes Communication WNL. Pt is an effective verbal communicator Mobility and Gait Pt uses a SPC cane at home and has been largely homebound since 2-week hospitalization at [facility] 1 month ago with sepsis and acute respiratory failure requiring intubation. She was discharged with home health services including PT. In addition, pt presents today in a left shoulder sling due to probable non-displaces shoulder fracture of uncertain age. She was scheduled to follow up with ortho today but had to cancel. Pt has recent history of multiple falls. Activities of Daily Living and IADL's Pt's , Dwayne, provides assist with dressing and standby assist for showers. Pt reports she toilets independently. Social History Household Members spouse Living Arrangements House Number of Floors (Floors) One Floor Number of Stairs To Enter/Railing? 2 [place] without railing Home Environment Standard Height Toilet,Tub/ Shower Home Equipment Straight Cane,Shower Seat with Backrest,Bed Rails,Grab Bars In Shower Additional Social History Comment Pt's , Dwayne, is an EMT who works 2 days on and then an uncertain number of days off. When he is not at home, pt's son-in-law, Eduardo, is present to assist. Pt states she is never left alone. M2 PT-IP Current Condition Start: 08/28/19 17:33 Freq: NEEDED Status: Active Protocol: Document 08/28/19 17:34 AW (Rec: 08/28/19 17:59 AW [id number]) Physical Therapy Current Condition Current Condition Evaluation Date 08/28/19 Treatment Diagnosis acute pyelonephritis, difficulty in walking Onset Date 08/27/19 Precautions Other Precautions - Uncertain age of shoulder fracture. This PT proceeded with [employer] [facility] out of concern for safety. - Pt with PICC line RUE and urostomy which she self- manages. M3 PT-IP Subjective Start: 08/28/19 17:33 Freq: NEEDED Status: Active Protocol: Document 08/28/19 17:34 AW (Rec: 08/28/19 17:59 AW [id number]) Subjective Physical Therapy Visit Type Type Initial Evaluation Visit Start Time 17:04 Visit Stop Time 17:32 Total Visit Minutes 28 Physical Therapy Visit Comments Patient Comments Come on in. I'm looking for something to do. Patient Goals Pt hopes to return home at discharge and get stronger Therapy Pain Assessment Pain When Pain Assessed During Mobility Pain Present Pain Present Pain Reported Location Bilateral Flank Scale Used not quantified Pain Management Techniques Distraction M4 PT-IP Mobility and Gait Start: 08/28/19 17:33 Freq: NEEDED Status: Active Protocol: Document 08/28/19 17:34 AW (Rec: 08/28/19 17:59 AW [id number]) PT-Bed Mobility Assessment Sit to Supine Sit to Supine Standby Assistance Scooting Scooting to Edge of Bed Standby Assistance Scooting Up and Down in Bed Standby Assistance PT-Transfer Assessment Sit to and From Stand Sit to and from Stand Contact Guard Assistance Equipment Transfer Assistive Device Gait Belt,Straight Cane Orthotic/Prosthetic Devices or Brace: Yes Transfers Transfer Destination Bed Transfer Technique pt ambulated with SPC Transfer Ability Level of Assist Contact Guard Assistance Comments Mobility Comments Pt sitting up in bed and refusing dinner when PT entered the room. She completed transition to sitting SBA and then impulsively stood before placement of gait belt or SPC. Initial standing demonstrated unsteadiness requiring CGA. Pt was able to stand for gait belt placement and then ambulated in the hallway with SPC CGA. During 100 feet ambulation trial, pt had two lateral LOB to her left side. When allowed to focus without interruption, pt was able to sequence three point gait with SPC, but immediately lost her patterning with any distraction. She returned to the room and requested return to bed. She was able to lift her legs into the bed SBA. Pt was left with RN attending. Gait Assessment Gait Gait Assistance Required: Contact Guard Assist,1 Person Assist Distance (Feet) 100 Assistive Devices Assistive Device Gait Belt,Straight Cane Orthotic/Prosthetic Devices or Brace: Yes Gait Deviations General Gait Pattern Antalgic,Decreased Stride Length,Decreased Feet Clearance,Flexed Trunk,Lateral Trunk Lean Factors Limiting Gait Function Factors Limiting Gait Function Decreased Activity Tolerance, Decreased Strength, Incoordination,Pain,Poor Balance,Poor Safety Awareness Comments Gait Comments See mobility comments. Stair Climbing Assessment Comments Stair Climbing Comments Not assessed due to safety concerns. Pt states her assists or carries her up the stairs as needed. PT-Balance Assessment Sitting Balance and Reactions Static Sitting Balance Ability Good Dynamic Sitting Balance Ability Good Standing Balance and Reactions Static Standing Balance Ability Fair Dynamic Standing Balance Ability Poor Device Used SPC Balance Tests Single Limb Standing unable M5 PT-IP Objective Assessments Start: 08/28/19 17:33 Freq: NEEDED Status: Active Protocol: Document 08/28/19 17:34 AW (Rec: 08/28/19 17:59 AW [id number]) Orientation Orientation/Cognition Level of Alertness Alert Orientation Name,Month,Place,Situation Language Function Ability No Deficits Noted Safety Awareness Decreased Safety Awareness Comments Pt was impulsive and gregarious, easily prone to distraction during gait. Gross Range of Motion Upper Extremity ROM Assessment Left Impaired Lower Extremity ROM Assessment Within Functional Limits Strength Upper Extremity Strength Assessment Bilaterally Impaired Lower Extremity Strength Assessment Bilaterally Impaired Hip 3/5 Knee 4-/5 Ankle 4/5 Coordination Assessment Gross Coordination Gross Coordination WNL Assessment Pronation/Supination Test Normal Performance Coordination Comments Pronation/supination slow but normal. Finger to nose with right arm normal. Pt unable to perform with left arm due to injury. Sensation Assessment Sensation Gross Sensation WNL Muscle Tone Muscle Tone WNL Yes M6 PT-IP Treatment Start: 08/28/19 17:33 Freq: NEEDED Status: Active Protocol: Document 08/28/19 17:34 AW (Rec: 08/28/19 17:59 AW [id number]) Physical Therapy Treatment Education Education Provided Safety Other Treatments Other Treatment Performed Provided education on role of PT, plan of care, and specific gait training with SPC. M7 PT-IP Assessment and Plan Start: 08/28/19 17:33 Freq: NEEDED Status: Active Protocol: Document 08/28/19 17:34 AW (Rec: 08/28/19 17:59 AW [id number]) PT Summary Assessment and Plan Potential Rehabilitation Potential Fair Status of Condition at Evaluation Evolving Summary Impairments Pain,ROM,Strength,Balance, Cognition,Bed Mobility, Transfers,Gait,Activity Tolerance Assessment Summary Melvi is a 54 yo woman seen for PT evaluation after being admitted to acute care with acute pyelonephritis. She had a protracted hospitalization 1 month ago during which she was intubated. At recent baseline, pt has been modified independent with SPC and has 24/7 assist with all mobility and some ADL's from her and son-in-law. On evaluation, pt presents with severe deconditioning and balance disturbance which increase her risk of falls which is born out by her recent falls history - at least one injurious resulting in shoulder fracture. With the level of support she has at home, pt will likely be safe to discharge back to home environment. This PT recommends resumption of home health PT or a new referral for home health if needed to address strength, balance, and gait impairments. Goals Bed Mobility Goal Independent Transfer Goal Standby Assistance,Cane Gait Goal Standby Assistance,Cane Gait Distance 200 Other Goals - up/down 2 stairs with hand- hold assist/no railing Days to Meet Goals 5 Frequency of Treatment Frequency Of Treatment Once a Day Treatment Plan Physical Therapy Treatment Plan Bed Mobility Training,Transfer Training,Gait Training, Therapeutic Exercise,Balance Retraining,Discharge Planning, Hot or Cold Pack,Neuromuscular Re-ed Other Recommendations and Next Treatment gait training with SPC; Focus consider hemiwalker if SPC not supportive enough; balance interventions Recommendations To Nursing Amount of Assist Needed 1 Person Assist Discharge Recommendations PT Discharge Recommendations Home with 24/7 Assist,Home Health Transportation Needs at Discharge Private Vehicle
--- NOTE | 2019-08-28 18:23 | PC.NURSE ---
Addendum entered by Delores Castellanos R.N. 08/28/19 21:23: Pt requested more information regarding s/sx of hypo and hyperglycemia; pt instructions from [facility] with nurse highlight and explanation Addendum entered by Delores Castellanos R.N. 08/28/19 21:18: @ 2030 CBG 55; pt drank apple juice; @ 2100 CBG 71 Original Note: Pt reports 7/10 pain to left shoulder, right flank; IV dilaudid, PO [place] with available times posted on white board to reduce anxiety; right arm in sling; Urostomy draining to gravity; skin fragile; IV fluids infusing; pt using call light, as needed
[2019-08-28] MEDS: AMITRIPTYLINE 75 MG TABLET 150 MG PO (20:27)
[2019-08-28] MEDS: ZOLPIDEM 5 MG TABLET 10 MG PO (21:58)
[2019-08-29] VITALS: BP 122/73; PULSE 92; RESP 16; TEMP 36.1; O2SAT 100
[2019-08-29] MEDS: PANTOPRAZOLE 40 MG TABLET PO (06:00)
[2019-08-29] MEDS: HYDROMORPHONE 1 MG INJ IV (06:00)
[2019-08-29 08:00] VITALS: BP 143/61; PULSE 63; RESP 18; TEMP 36.8; O2SAT 98
[2019-08-29] MEDS: INSULIN NPH 100 UNIT/ML VIAL 15 UNIT SUBCUT (08:51)
[2019-08-29] MEDS: INSULIN ASPART 100 UNIT/ML INSULN PEN SUBCUT (08:51)
[2019-08-29] MEDS: DULOXETINE 30 MG CAPSULE 60 MG PO (08:55)
[2019-08-29] MEDS: GABAPENTIN 600 MG TABLET PO (08:55)
--- NOTE | 2019-08-29 09:12 | PM.DS.1 ---
History of Present Illness History of Present Illness Chief complaint: diarrhea, puking Narrative: The patient is a 54-year-old female with a history of type 2 diabetes, interstitial nephritis, resulting in a urostomy tube placement. She has had frequent urinary tract infections. Patient most recently was diagnosed with a urinary tract infection about 1 week ago. She was started on cefpodoxime. Unfortunately the bacteria was resistant. The patient has had multiple urinary tract infections and noted that she was nauseated with vomiting. If she felt ill she presented to the ED for evaluation. In the emergency room her urine cultures were checked and in fact were resistant to ceftriaxone. She was given IV levofloxacin. Patient was given IV hydration. Her lactate was less than 2. She was admitted to the hospital for inpatient treatment of acute pyelonephritis. Patient does report bilateral kidney pain. She was hospitalized at [facility] 1 month ago for severe pyelonephritis, sepsis, respiratory failure requiring intubation. After 2 weeks she was discharged from the hospital but unfortunately developed another urinary tract infection. She has no shortness of breath. No chest pain. No headache blurred vision or double vision. She did have nausea and vomiting earlier which has subsided she has no constipation, diarrhea, or bright but blood per rectum. Patient is admitted to the hospital for treatment of acute pyelonephritis. Patient notes that she has lost 18 lb since her hospitalization last month. Discharge Providers Provider Date of admission: 08/27/19 10:39 Discharge Date: 08/29/19 Primary care physician: Fadi Ko DO Consults: 08/27/19 06:48 Consult After Hours PICC Line RN Stat Comment: 08/27/19 13:27 Consult to Dietitian, Adult Routine Comment: Reason For Exam: malnourished 08/27/19 14:51 Consult to Dietitian, Adult Routine Comment: Reason For Exam: weight loss 08/27/19 23:49 Consult to Pastoral Services Routine Comment: Request visit from Jian Hernandez [phone], 08/28/19 13:44 Consult to Physical Therapy Evaluate & Treat Comment: Physician Instructions: Evaluate and Treat Discharge provider: Angeles Post MD Summary Hospital Course Discharge Diagnosis: 1. Acute pyelonephritis secondary to Acinetobacter 2. Recurrent urinary tract infection 3. Type 2 diabetes 4. Urostomy for interstitial cystitis 5.Hypertension 6. Asthma 7. GERD 8. Severe protein calorie malnutrition dietary recommends Glucerna t.i.d. Hospital Course: Patient was diagnosed July with a urinary tract infection. She was initially treated with Cefpodil unfortunately the organism was Acinetobacter which was resistant. The patient developed flank pain and overall generalized malaise. She presented to the emergency department with a heart rate of 112. She was afebrile. It she had no end-organ damage. The patient was felt to have failed outpatient treatment. She was admitted to the hospital for IV antibiotics and treatment of pyelonephritis. During her hospital stay the patient was somewhat tearful about being hospitalized. She was placed on levofloxacin. She had no fever, no nausea or vomiting, she did have intermittent flank pain. Be patient's blood pressure was well controlled. She had no evidence of end-organ damage or hypotension. She was able to tolerated diet. It she was seen by dietary who recommended Glucerna t.i.d.. Arrangements were made for the patient to be discharged home. Patient will follow-up with Dr. napier tomorrow. She will be referred to Dr. Limon for an outpatient urology appointment as well. Exam Vital Signs (past 8 hours): - 08/29/19 08:00 Temperature 98.2 F Pulse Rate 63 Respiratory Rate 18 Blood Pressure 143/61 H Pulse Oximetry 98 Oxygen Delivery Method Room Air Oxygen Flow Rate 0 Narrative Exam Narrative: Tearful female Lungs: Clear to auscultation Cardiac exam: Regular rate and rhythm normal S1-S2 Abdomen: Soft nontender nondistended, urostomy in place, pink tissue noted urine in the bag Extremities: No edema Objective Labs Result Diagrams: 08/27/19 09:20 08/27/19 09:20 Discharge Plan Discharge Plan Discharge Problem: Pyelonephritis, Diarrhea, Failure of outpatient treatment Patient Disposition: Home Discharge orders & Medications Prescriptions: New levofloxacin 250 mg tablet 250 mg PO DAILY Qty: 7 RF: 0 levofloxacin 750 mg tablet 750 mg PO DAILY Qty: 7 RF: 0 Continued hydroxyzine HCl 25 MG tablet 25 mg PO TID Qty: 0 RF: 0 magnesium oxide 400 MG tablet 400 mg PO BEDTIME Qty: 0 RF: 0 albuterol sulfate [Proventil HFA] 90 MCG/PUFF HFA aerosol inhaler 2 puff INH Q4HP PRN (Reason: Shortness Of Breath) Qty: 0 RF: 0 duloxetine 60 MG capsule,delayed release(DR/EC) 60 mg PO DAILY Qty: 0 RF: 0 gabapentin [Neurontin] 300 MG capsule 600 mg PO TID Qty: 0 RF: 0 multivitamin [Multiple Vitamins] 1 EACH tablet 1 tab PO DAILY Qty: 0 RF: 0 zolpidem [Ambien] 10 MG tablet 10 mg PO HS PRN (Reason: Insomnia) Qty: 0 RF: 0 lorazepam 0.5 mg tablet 0.5 mg PO BID PRN (Reason: Anxiety) RF: 0 methocarbamol 500 mg tablet 1,000 mg PO Q6H PRN (Reason: Muscle Spasm) RF: 0 Humulin N NPH Insulin KwikPen 100 unit/mL (3 mL) insulin pen 15 unit SUBCUT BID PRN (Reason: Hyperglycemia) RF: 0 amitriptyline 50 mg tablet 150 mg PO BEDTIME RF: 0 potassium chloride 20 mEq tablet,ER particles/crystals 20 meq PO QNOON RF: 0 lisinopril 10 mg tablet 10 mg PO DAILY RF: 0 omeprazole 20 mg capsule,delayed release(DR/EC) 20 mg PO DAILY RF: 0 ondansetron 4 mg tablet,disintegrating 1 tab Translingual Q6H PRN (Reason: Nausea) RF: 0 Probiotic 1 tab PO BID RF: 0 vitamin E 1 cap PO DAILY RF: 0 Follow up/Referrals: Fadi Ko DO [Primary Care Provider] - Diet/Activity/Treatments Diet: Carb-consistent/Diabetic Diet comment: glucerna three times daily Activity: as tolerated Catheter comment: urostomy Skin/Wound/Dressing Care Report to your healthcare provider any signs of infection, such as:: chills, fever Discharge Data Primary Care Provider: Fadi Ko Attending Provider: Angeles Post Admit Date/Time: 08/27/19 10:39
[2019-08-29] MEDS: NICOTINE 14 PATCH 14 MG TOP (09:20)
[2019-08-29] MEDS: ENOXAPARIN 40 MG/0.4 ML SYRINGE SUBCUT (09:20)
[2019-08-29] MEDS: HYDROCODONE/ACET 5/325 TABLET 1 TAB PO (09:21)
[2019-08-29] MEDS: levoFLOXacin 500 MG/100 ML PIGGYBACK 100 MG IV (09:22)
[2019-08-29] MEDS: lisinopriL 10 MG TABLET PO (09:23)
[2019-08-29] MEDS: LORazepam 1 MG TABLET PO (09:23)
[2019-08-29 10:00] VITALS: PULSE 89; RESP 18; O2SAT 99
--- NOTE | 2019-08-29 10:50 | PT.IPTN ---
Current Diagnoses Tubulo-interstitial nephritis, not specified as acute or chronic (08/27/19) Physical Therapy Treatment Note M2 PT-IP Current Condition Start: 08/28/19 17:33 Freq: NEEDED Status: Discharge Protocol: Document 08/28/19 17:34 AW (Rec: 08/28/19 17:59 AW [id number]) Physical Therapy Current Condition Current Condition Evaluation Date 08/28/19 Treatment Diagnosis acute pyelonephritis, difficulty in walking Onset Date 08/27/19 Precautions Other Precautions - Uncertain age of shoulder fracture. This PT proceeded with NWB LUE out of concern for safety. - Pt with PICC line RUE and urostomy which she self- manages. M3 PT-IP Subjective Start: 08/28/19 17:33 Freq: NEEDED Status: Discharge Protocol: Document 08/29/19 10:26 KS (Rec: 08/29/19 12:58 KS [id number]) Subjective Physical Therapy Visit Type Type Treatment Note Visit Start Time 10:26 Visit Stop Time 10:50 Total Visit Minutes 24 Number of COAGULATING BATH OPERATOR Visits 1 Physical Therapy Visit Comments Patient Comments Pt agreeable to work w/ therapy. Pts present for caregiver training. M4 PT-IP Mobility and Gait Start: 08/28/19 17:33 Freq: NEEDED Status: Discharge Protocol: Document 08/29/19 10:26 KS (Rec: 08/29/19 12:58 KS [id number]) PT-Bed Mobility Assessment Supine to Sit Supine to Sit Standby Assistance Scooting Scooting to Edge of Bed Standby Assistance Scooting Up and Down in Bed Standby Assistance PT-Transfer Assessment Sit to and From Stand Sit to and from Stand Standby Assistance Equipment Transfer Assistive Device Gait Belt Transfers Transfer Destination Bed Transfer Technique Pt ambulated w/o AD Transfer Ability Level of Assist Standby Assistance Comments Mobility Comments Pt was in bed upon arrival from therapy w/ present in room. Pt SBA for sup<>sit and scooting to EOB. Instructed pt and pt then performed seated LE strengthening exercises including 1x10 ankle pumps, quad sets, seated knee ext/ flex, and glute sets. Pt then stood from bed SBA and was able to perform 2 min weight shifting and marching in place as well as 1x10 heel raises, CGA. Pt then sat back down, SBA to rest ~2 min prior to gait and stair training. Pt ambulated ~30 ft around room w / providing CGA and then ambulated ~10 ft to platform step, which she completed 2x w/ CGA and SUPERVISOR DOCK safely provided by pts /caregiver. Pt then returned to room, SBA for stand<>sit. This COAGULATING BATH OPERATOR wrote down LE strengthening exercises for pt to use at home and discussed safety. Gait Assessment Gait Gait Assistance Required: Contact Guard Assist,Total Assistance Distance (Feet) 50 Able to Maintain Weight Bearing Status Yes During Gait Assistive Devices Assistive Device Gait Belt Gait Deviations General Gait Pattern Antalgic,Decreased Stride Length,Decreased Feet Clearance,Flexed Trunk,Lateral Trunk Lean Factors Limiting Gait Function Factors Limiting Gait Function Decreased Activity Tolerance, Decreased Strength, Incoordination,Pain,Poor Balance,Poor Safety Awareness Comments Gait Comments Pt ambulated ~50 ft w/ CGA provided safely by . Pt is impulsive and tends to stand and quickly begin walking. Instructed pt to stand slowly and make sure she is balanced and not dizzy prior to ambulation. Pt and report someone is always around to ambulate w/ pt longer distances. Pt has decreased stride length and foot clearance d/t weakness. Stair Climbing Assessment Evaluation Level of Assist On Stairs Contact Guard Assistance,1 Person Assistance Devices Stair Climbing Assistive Devices None Technique/Endurance Stair Climbing Direction Ascend and Descend Stair Climbing Technique Step to Step Number of Steps Climbed 1 Stair Climbing Set # Repetitions (reps) 2 Comments Stair Climbing Comments Pt and completed 2x platform step w/ providing safe CGA and SUPERVISOR DOCK and cues for sequencing. Pt and state that they both feel safe completing step at home. PT-Balance Assessment Sitting Balance and Reactions Static Sitting Balance Ability Good Dynamic Sitting Balance Ability Good Standing Balance and Reactions Static Standing Balance Ability Fair Dynamic Standing Balance Ability Fair M5 PT-IP Objective Assessments Start: 08/28/19 17:33 Freq: NEEDED Status: Discharge Protocol: Document 08/28/19 17:34 AW (Rec: 08/28/19 17:59 AW [id number]) Orientation Orientation/Cognition Level of Alertness Alert Orientation Name,Month,Place,Situation Language Function Ability No Deficits Noted Safety Awareness Decreased Safety Awareness Comments Pt was impulsive and gregarious, easily prone to distraction during gait. Gross Range of Motion Upper Extremity ROM Assessment Left Impaired Lower Extremity ROM Assessment Within Functional Limits Strength Upper Extremity Strength Assessment Bilaterally Impaired Lower Extremity Strength Assessment Bilaterally Impaired Hip 3/5 Knee 4-/5 Ankle 4/5 Coordination Assessment Gross Coordination Gross Coordination WNL Assessment Pronation/Supination Test Normal Performance Coordination Comments Pronation/supination slow but normal. Finger to nose with right arm normal. Pt unable to perform with left arm due to injury. Sensation Assessment Sensation Gross Sensation WNL Muscle Tone Muscle Tone WNL Yes M6 PT-IP Treatment Start: 08/28/19 17:33 Freq: NEEDED Status: Discharge Protocol: Document 08/29/19 10:26 KS (Rec: 08/29/19 12:58 KS [id number]) Physical Therapy Treatment Exercises Exercises Ankle Pumps,Gluteal Sets,Quad Sets,Seated Knee Flexion/ Extension Education Education Provided Safety Other Treatments Other Treatment Performed Safety awareness, balance training, marches in place, heel raises M7 PT-IP Assessment and Plan Start: 08/28/19 17:33 Freq: NEEDED Status: Discharge Protocol: Document 08/29/19 10:26 KS (Rec: 08/29/19 12:58 KS [id number]) PT Summary Assessment and Plan Potential Rehabilitation Potential Fair Status of Condition at Evaluation Evolving Summary Impairments Pain,ROM,Strength,Balance, Cognition,Bed Mobility, Transfers,Gait,Activity Tolerance Assessment Summary Completed caregiver training w / pt and her including bed mobility, gait and stair training. Provided education on safety and LE strengthening to improve pts tolerance for activity. Pt SBA for bed mobility and transfers, CGA for ambulation, and CGA and SUPERVISOR DOCK for stair. Pt and state that they both feel safe to go home. Provided pt with written instructions for LE strengthening exs. Pt will benefit from HHPT to help her improve strength, balance, and safety. Goals Bed Mobility Goal Independent Transfer Goal Standby Assistance,Cane Gait Goal Standby Assistance,Cane Gait Distance 200 Other Goals - up/down 2 stairs with hand- hold assist/no railing Days to Meet Goals 5 Frequency of Treatment Frequency Of Treatment Once a Day Treatment Plan Physical Therapy Treatment Plan Bed Mobility Training,Transfer Training,Gait Training, Therapeutic Exercise,Balance Retraining,Discharge Planning, Hot or Cold Pack,Neuromuscular Re-ed Recommendations To Nursing Amount of Assist Needed 1 Person Assist Discharge Recommendations PT Discharge Recommendations Home with 24/7 Assist,Home Health Transportation Needs at Discharge Private Vehicle
--- NOTE | 2019-08-29 11:36 | PC.NURSE ---
Addendum entered by Lorena Rincon R.N. 08/29/19 12:27: Left message with Fadi Ko office at 1125 regarding recommendation of referral to [facility] as outpatient. Original Note: Day Shift- Pt very teary this AM, states wanting to give up, not take any medications as they're not helping anyway. refused medications. This RN Stated that this RN would come back in 1/2 hr and we could readdress medications and plans as pt was visibly upset. Support and encouragement provided. Pt stated just wanting to go home and be more active with her family and not to anything in here. At this time, Dr. Post came to pt's room and stated pt could be discharged and go home today. After this, pt became more cooperative, active listening, agreed to take medications. Talkative and engaging more productively in plan of care and conversation. At 1025, JORGE PICC removed without difficulty per hospital policy. Folded 4X4 gauze and tegaderm dressing placed over site. No bleeding noted. At 1100, discharge summary packet reviewed with pt and her at bedside. No further voiced concerns. This RN called Dr. Martinez office to make a referral follow up appointment per conversation with Dr. Post in pt's room. Office requested to have face sheet and discharge summary faxed to their office for Dr. Segovia to review. This was done at 1045. Pt and her aware. Pt was excited and smiling when asking her weight and it was last recorded as 99.7 lbs. Pt left unit via wheelchair in no distress at 1120 with CONCHE OPERATOR escort, and pt's with all belongings.
== END 2019-08-29 11:20 | disposition home or self-care (01) ==
LOC: ED 10:19 → AC 15:14 → ICU 08-28 10:42
PROVIDERS: Emergency Medicine; Admitting Provider Internal Medicine; Emergency Provider Emergency Medicine; PCP Family Medicine; Referring Provider Emergency Medicine; Visit Provider Internal Medicine
DX: N12 Tubulo-interstitial nephritis, not specified as acute or chronic (principal); R11.2 Nausea with vomiting, unspecified; R19.7 Diarrhea, unspecified; E11.9 Type 2 diabetes mellitus without complications; Z79.4 Long term (current) use of insulin; F17.210 Nicotine dependence, cigarettes, uncomplicated; K21.9 Gastro-esophageal reflux disease without esophagitis; I10 Essential (primary) hypertension; F41.9 Anxiety disorder, unspecified; N30.10 Interstitial cystitis (chronic) without hematuria; B96.89 Other specified bacterial agents as the cause of diseases classified elsewhere; E43 Unspecified severe protein-calorie malnutrition
CPT/HCPCS: 36415; 80053; 82962; 83605; 83690; 85025; 87040; 96361; 96365; 96366; 96372; 96375; 96376; 97110; 97116; 97162; 99284; G0378; J1170; J1650; J1956; J2060; J2405

== ENCOUNTER 2019-09-25 18:17 | Observation (INO) | payer OTHER, SELFPAY ==
[2019-09-25] VITALS (14 sets, daily range): BP systolic 132–166; BP diastolic 72–90; PULSE 90–105; RESP 17–38; TEMP 36.7; O2SAT 97–100; BMI 15.6
--- NOTE | 2019-09-25 19:20 | PC.NURSE ---
Patient presents today for nausea, generalized weakness and flank pain . Patient has urostomy inplace and was recently seen at [facility] but left AMA after being told she would be admitted. Patient expresses concern that her sugars have been running low. Patient is pleasant, alert and oriented X 4. Denies fever, vomiting, dizziness or SOB.
[2019-09-25 19:24] LABS: Add Manual Diff / Slide Review NO; Basophils Absolute Auto 100 /uL (0-100); Basophils Percent Auto 1.2 % (0-2); Eosinophils Absolute Auto 200 /uL (0-450); Eosinophils Percent Auto 1.9 % (2-4); Hemoglobin 11.6 g/dL (12.0-16.0); Lymphocytes Absolute Auto 4000 /uL (1100-4500); Lymphocytes Percent Auto 46.2 % (25-40); Mean Corpuscular HGB Conc 34.2 % (30-36); Mean Corpuscular Hemoglobin 33.6 PG (26-34); Mean Corpuscular Volume 98.2 fL (80-100); Monocytes Absolute Auto 500 /uL (0-900); Monocytes Percent Auto 6.1 % (3-14); Neutrophils Absolute Auto 3900 /uL (1500-7000); Neutrophils Percent Auto 44.6 % (50-75); Platelet Count 390 X10^3/uL (150-400); Red Blood Cell Count 3.46 X10^6/uL (4.0-5.2); Red Cell Distribution Width 13.2 % (11.6-14.8); White Blood Cell Count 8.7 X10^3/uL (4.5-11.0)
--- NOTE | 2019-09-25 19:30 | PC.NURSE ---
Iv established and POC Blood glucose obtained and is 31. Provider Javier informed in person of BG results and verbal order for PO juice and crackers given. Patient able to follow commands and drank juice and ate crackers with peanut butter.
[2019-09-25 19:41] LABS: Lactate (Lactic Acid) 1.6 mmol/L (0.7-2.1)
[2019-09-25 19:42] LABS: Alanine Aminotransferase 97 IU/L (<35); Albumin 3.8 g/dL (3.5-5.0); Albumin Globulin Ratio 1.2 (1.0-2.8); Alkaline Phosphatase 430 U/L (38-126); Amylase 45 U/L (30-110); Aspartate Aminotransferase 110 IU/L (14-36); Bilirubin Total 0.5 mg/dL (0.2-1.3); Blood Urea Nitrogen 9 mg/dL (7-17); Calcium 9.4 mg/dL (8.4-10.2); Carbon Dioxide 18 mmol/L (22-32); Chloride 108 mmol/L (98-107); Estimated Glomerular Filt Rate > 60.0 mL/min (>60); Globulin 3.1 g/dL (1.7-4.1); Glucose 47 mg/dL (70-100); HEMOLYSIS 47 (0-50); Potassium 4.4 mmol/L (3.4-5.1); Sodium 135 mmol/L (137-145); Total Protein 6.9 g/dL (6.3-8.2)
[2019-09-25 19:43] LABS: Lipase < 10 U/L (23-300)
[2019-09-25] MEDS: HYDROMORPHONE 0.5 MG INJ IV ×4 (19:47→23:00)
[2019-09-25] MEDS: ONDANSETRON 4 MG/2 ML INJ IV (19:48)
[2019-09-25] MEDS: SODIUM CHLORIDE 0.9% 1,000 ML 1000 ML IV (19:59)
[2019-09-25 20:04] LABS: Procalcitonin < 0.05 ng/mL (<0.5)
--- NOTE | 2019-09-25 20:51 | ED_ITS ---
HPI - Female Genitourinary <Xuan Herrera, STATION MANAGER-BC - Last Filed: 09/25/19 21:35> General Chief complaint: Urogenital-Female Stated complaint: KIDNEY INFECTION Time Seen by Provider: 09/25/19 18:48 Source: patient and family Mode of arrival: Ambulatory Limitations: no limitations History of Present Illness HPI Narrative: The patient is a 54-year-old female current smoker with a complicated medical history including interstitial cystitis, urostomy, chronic pain hypertension, type 2 diabetes and a recent left humeral fracture. She presented to an outside hospital yesterday, where they tried to admit her for urinary tract infection. She has history of urosepsis with acute decompensation , intubation etcetera. She presented there for flank pain, fevers up to 100?, muscle aches and chills. She states that she got 1 antibiotic in the emergency department, and did not want to stay in the emergency department. Chart review illustrate that she was given 1 g Rocephin. Her initial presentation she was tachycardic, hypertensive and had a slightly elevated lactate according to records. She presents to the emergency department today because she is having continued symptoms, continued flank pain, especially on left side. She is also having trouble keeping her blood sugars under control. She states she is hypoglycemic repeatedly, most recently in the low 40s. She states that she has not been eating as usual. She states she is concerned that she is septic given the appearance of her urine. Related Data Home Medications Medication Instructions Recorded Confirmed albuterol sulfate [Proventil HFA] 2 puff INH Q4HP PRN #0 01/08/13 09/26/19 hydroxyzine HCl 25 mg PO TID #0 01/08/13 09/26/19 magnesium oxide 400 mg PO BEDTIME #0 tab 01/08/13 09/26/19 duloxetine 60 mg PO DAILY #0 07/04/17 09/26/19 gabapentin [Neurontin] 600 mg PO TID #0 07/04/17 09/26/19 multivitamin [Multiple Vitamins] 1 tab PO DAILY #0 07/04/17 09/26/19 zolpidem [Ambien] 10 mg PO HS PRN #0 07/04/17 09/26/19 Probiotic 1 tab PO BID 09/26/17 09/26/19 amitriptyline 150 mg PO BEDTIME 09/26/17 09/26/19 lisinopril 10 mg PO DAILY 09/26/17 09/26/19 omeprazole 20 mg PO DAILY 09/26/17 09/26/19 ondansetron 1 tab TRANSLINGUAL Q6H PRN 09/26/17 09/26/19 potassium chloride 20 meq PO QNOON 09/26/17 09/26/19 vitamin E 1 cap PO DAILY 09/26/17 09/26/19 lorazepam 0.5 mg PO BID PRN 05/30/18 09/26/19 Humulin N NPH Insulin KwikPen 15 unit SUBCUT BID PRN 05/17/19 09/26/19 methocarbamol 1,000 mg PO Q6H PRN 05/17/19 09/26/19 Allergies Allergy/AdvReac Type Severity Reaction Status Date / Time mupirocin Allergy Unknown Verified 09/25/19 18:32 naproxen Allergy Unknown Verified 09/25/19 18:32 Penicillins Allergy Unknown SINCE Verified 09/25/19 18:32 CHILDHOOD droperidol AdvReac Unknown Verified 09/25/19 18:32 fenofibrate [FENOFIBRATE] AdvReac Unknown Verified 09/25/19 18:32 ibuprofen AdvReac Unknown NAUSEA Verified 09/25/19 18:32 metformin [METFORMIN] AdvReac Unknown Verified 09/25/19 18:32 metoclopramide AdvReac Unknown BECAME Verified 09/25/19 18:32 JITTERY AND ANXIOUS nitrofurantoin AdvReac Unknown NAUSEA Verified 09/25/19 18:32 Review of Systems <ALBERTO MossP-BC - Last Filed: 09/25/19 21:35> Review of Systems Narrative: GENERAL: See HPI HEENT: Denies sinus pain, ear pain, sore throat, difficulty swallowing, di zziness. RESPIRATORY: Denies dyspnea, cough, wheezing, hemoptysis, sputum. CARDIOVASCULAR: Denies chest pain, palpitations, orthopnea, edema, GASTROINTESTINAL: Denies nausea, vomiting, abdominal pain, diarrhea, constipation, melena. : See HPI MUSCULOSKELETAL: denies weakness, joint pain, or bony pain SKIN: Denies rash, skin lesions, or other NEUROLOGIC: Denies weakness, headache, numbness, change in speech, confusion, seizures, incoordination. PSYCHIATRIC: No concerning psychosocial issues. 12 point review of systems is negative except for those stated above Patient History <CAMILO Moss - Last Filed: 09/25/19 21:35> Medical History Anxiety (Chronic) Closed fracture of left humerus (Inactive) Endometriosis (Chronic) Fibromyalgia (Chronic) Heart palpitations (Chronic) History of asthma (Chronic) History of chronic hypertension (Chronic) History of COPD (Chronic) History of depression (Chronic) History of gastrointestinal ulcer (Chronic) History of kidney stones (Chronic) History of migraine (Chronic) History of panic attacks (Chronic) History of type 2 diabetes mellitus (Chronic) Interstitial cystitis (Chronic) UTI (urinary tract infection) (Chronic) Surgical History History of urostomy (Acute) S/P appendectomy (Resolved) Status post hysterectomy (Resolved) Family History Mother Diabetes mellitus Other Family history non-contributory alcohol intake frequency: holidays/special occasions only Substance Use Type: former substance user and marijuana Exam <CAMILO Moss - Last Filed: 09/25/19 21:35> Narrative Exam Narrative: GENERAL: Thin, chronically ill-appearing female appears uncomfortable HEAD: Atraumatic. Normocephalic. No temporal or scalp tenderness. EYES: Pupils equal round and reactive. Extraocular motions intact. No scleral icterus. No injection or drainage. ENT: Nose without bleeding, purulent drainage or septal hematoma. Throat without erythema, tonsillar hypertrophy or exudate. Uvula midline. Airway patent. Dry mucous membranes. NECK: Trachea midline. No JVD or lymphadenopathy. Supple, nontender, no meningeal signs. CARDIOVASCULAR: Regular rate and rhythm RESPIRATORY: Clear to auscultation. Breath sounds equal bilaterally. No wheezes, rales, or rhonchi. No cough. No increased respiratory effort. No accessory muscle use. GASTROINTESTINAL: Abdomen soft, non-tender, nondistended. No hepato- splenomegaly, or palpable masses. No guarding. EXTREMITIES: General pain left shoulder, surgical site clean dry intact. No extending redness her purulence drainage noted. BACK: Nontender without deformity or crepitance. CVA tenderness noted left side NEURO: AOx3. SKIN: See extremity exam Initial Vital Signs Initial Vital Signs: Vital Signs Temperature 98.0 F 09/25/19 18:28 Pulse Rate 103 H 09/25/19 18:28 Respiratory Rate 18 09/25/19 18:28 Blood Pressure 132/72 09/25/19 18:28 Pulse Oximetry 100 09/25/19 18:28 <Kalia Medrano MD - Last Filed: 09/26/19 01:01> Initial Vital Signs Initial Vital Signs: Vital Signs Temperature 98.0 F 09/25/19 18:28 Pulse Rate 103 H 09/25/19 18:28 Respiratory Rate 18 09/25/19 18:28 Blood Pressure 132/72 09/25/19 18:28 Pulse Oximetry 100 09/25/19 18:28 Scores <CAMILO Moss - Last Filed: 09/25/19 21:35> GCS Eva coma scale eye opening: Spontaneous Eva coma scale verbal response: Orientated Eva coma scale motor response: Obey commands [place] coma scale total score: 15 Course <CAMILO Moss - Last Filed: 09/25/19 21:35> Orders Ordered: ED Orders 09/25/19 19:14 EKG-12 Lead Stat 09/25/19 19:16 Amylase Stat Complete Blood Count AUTO DIFF Stat Comprehensive Metabolic Panel Stat Lactate (Lactic Acid) Stat Lipase Stat Procalcitonin Stat 09/25/19 21:00 Blood Culture Stat 09/25/19 21:55 MRSA PCR Stat Amitriptyline HCl (Elavil) 150 mg PO BEDTIME [facility] Dextrose (D50w) 25 gm IV PRN PRN PRN Reason: Hypoglycemia Docusate Sodium (Colace) 100 mg PO BID [facility] Duloxetine HCl (Cymbalta) 60 mg PO DAILY [facility] Enoxaparin Sodium (Lovenox) 40 mg SUBCUT DAILY [facility] Gabapentin (Neurontin) 600 mg PO TID [facility] Hydroxyzine Pamoate (Vistaril) 25 mg PO TID [facility] Sodium Chloride (Normal Saline 0.9%) 1,000 mls @ 150 mls/hr IV CONT [facility] Last Admin: 09/25/19 21:29 Dose: Not Given Documented by: NOHEMY Sodium Chloride (Normal Saline 0.9%) 1,000 mls @ 100 mls/hr IV CONT [facility] Cefepime HCl 1 gm/ Sodium (Chloride) 100 mls @ 200 mls/hr IV Q12H [facility] Insulin Aspart (Novolog Flexpen) 0 unit SUBCUT ACHS [facility]; Protocol Lisinopril (Zestril) 10 mg PO DAILY [facility] Lorazepam (Ativan) 0.5 mg PO BID PRN PRN Reason: Anxiety Naloxone HCl (Narcan) 0.2 mg IV Q2MIN PRN PRN Reason: Opiate Reversal Non-Formulary Medication (Omeprazole) 20 mg PO DAILY [facility] Non-Formulary Medication (Probiotic) 1 tab PO BID [facility] Ondansetron HCl (Zofran) 4 mg IV Q8HR PRN PRN Reason: Nausea And Vomiting Vancomycin HCl (Vancomycin Per Pharmacy) 1 request MISC NOW ONE Stop: 09/26/19 00:41 Zolpidem Tartrate (Ambien) 5 mg PO BEDTIME PRN PRN Reason: Sleep Zolpidem Tartrate (Ambien) 10 mg PO HS PRN PRN Reason: Insomnia Discontinued Medications Dextrose (D50w) 25 gm IV NOW ONE Stop: 09/25/19 23:29 Last Admin: 09/25/19 23:29 Dose: 25 gm Documented by: NOHEMY Hydromorphone HCl (Dilaudid) 0.5 mg IV NOW ONE Stop: 09/25/19 19:34 Last Admin: 09/25/19 19:47 Dose: 0.5 mg Documented by: NOHEMY Hydromorphone HCl (Dilaudid) 0.5 mg IV NOW ONE Stop: 09/25/19 20:15 Last Admin: 09/25/19 20:26 Dose: 0.5 mg Documented by: NOHEMY Hydromorphone HCl (Dilaudid) 0.5 mg IV NOW ONE Stop: 09/25/19 21:31 Last Admin: 09/25/19 21:42 Dose: 0.5 mg Documented by: NOHEMY Hydromorphone HCl (Dilaudid) 0.5 mg IV NOW ONE Stop: 09/25/19 21:31 Last Admin: 09/25/19 23:00 Dose: 0.5 mg Documented by: MARTY Sodium Chloride (Normal Saline 0.9%) 1,000 mls @ 1,000 mls/hr IV BOLUS ONE Stop: 09/25/19 20:32 Last Infusion: 09/25/19 21:42 Dose: 0 mls/hr Documented by: Admin: 09/25/19 19:59 Dose: 1,000 mls/hr Documented by: MARTY Ceftriaxone Sodium/Dextrose (Rocephin) 1 gm in 50 mls @ 100 mls/hr IV NOW ONE Stop: 09/25/19 21:38 Last Infusion: 09/25/19 22:12 Dose: 0 mls/hr Documented by: Admin: 09/25/19 21:42 Dose: 100 mls/hr Documented by: NOHEMY Lorazepam (Ativan) 1 mg IV NOW ONE Stop: 09/25/19 23:18 Last Admin: 09/25/19 23:24 Dose: 1 mg Documented by: MARTY Ondansetron HCl (Zofran) 4 mg IV NOW ONE Stop: 09/25/19 19:34 Last Admin: 09/25/19 19:48 Dose: 4 mg Documented by: NOHEMY Vital Signs Vital signs: Vital Signs - 8 hr 09/25/19 18:28 09/25/19 19:29 09/25/19 19:30 Temperature 98.0 F Pulse Rate 103 H 96 H 97 H Respiratory Rate 18 17 22 Blood Pressure 132/72 Pulse Oximetry 100 100 100 09/25/19 19:45 09/25/19 20:30 09/25/19 20:34 Temperature Pulse Rate 105 H 90 92 H Respiratory Rate 32 H 20 20 Blood Pressure 166/90 H 132/75 Pulse Oximetry 98 99 97 09/25/19 21:00 Temperature Pulse Rate 96 H Respiratory Rate 20 Blood Pressure Pulse Oximetry 98 <Kalia Medrano MD - Last Filed: 09/26/19 01:01> Orders Ordered: ED Orders 09/25/19 19:14 EKG-12 Lead Stat 09/25/19 19:16 Amylase Stat Complete Blood Count AUTO DIFF Stat Comprehensive Metabolic Panel Stat Lactate (Lactic Acid) Stat Lipase Stat Procalcitonin Stat 09/25/19 21:00 Blood Culture Stat 09/25/19 21:55 MRSA PCR Stat Amitriptyline HCl (Elavil) 150 mg PO BEDTIME [facility] Dextrose (D50w) 25 gm IV PRN PRN PRN Reason: Hypoglycemia Docusate Sodium (Colace) 100 mg PO BID [facility] Duloxetine HCl (Cymbalta) 60 mg PO DAILY [facility] Enoxaparin Sodium (Lovenox) 40 mg SUBCUT DAILY [facility] Gabapentin (Neurontin) 600 mg PO TID [facility] Hydroxyzine Pamoate (Vistaril) 25 mg PO TID [facility] Sodium Chloride (Normal Saline 0.9%) 1,000 mls @ 150 mls/hr IV CONT [facility] Last Admin: 09/25/19 21:29 Dose: Not Given Documented by: NOHEMY Sodium Chloride (Normal Saline 0.9%) 1,000 mls @ 100 mls/hr IV CONT [facility] Cefepime HCl 1 gm/ Sodium (Chloride) 100 mls @ 200 mls/hr IV Q12H [facility] Insulin Aspart (Novolog Flexpen) 0 unit SUBCUT ACHS [facility]; Protocol Lisinopril (Zestril) 10 mg PO DAILY [facility] Lorazepam (Ativan) 0.5 mg PO BID PRN PRN Reason: Anxiety Naloxone HCl (Narcan) 0.2 mg IV Q2MIN PRN PRN Reason: Opiate Reversal Non-Formulary Medication (Omeprazole) 20 mg PO DAILY [facility] Non-Formulary Medication (Probiotic) 1 tab PO BID [facility] Ondansetron HCl (Zofran) 4 mg IV Q8HR PRN PRN Reason: Nausea And Vomiting Vancomycin HCl (Vancomycin Per Pharmacy) 1 request MISC NOW ONE Stop: 09/26/19 00:41 Zolpidem Tartrate (Ambien) 5 mg PO BEDTIME PRN PRN Reason: Sleep Zolpidem Tartrate (Ambien) 10 mg PO HS PRN PRN Reason: Insomnia Discontinued Medications Dextrose (D50w) 25 gm IV NOW ONE Stop: 09/25/19 23:29 Last Admin: 09/25/19 23:29 Dose: 25 gm Documented by: NOHEMY Hydromorphone HCl (Dilaudid) 0.5 mg IV NOW ONE Stop: 09/25/19 19:34 Last Admin: 09/25/19 19:47 Dose: 0.5 mg Documented by: NOHEMY Hydromorphone HCl (Dilaudid) 0.5 mg IV NOW ONE Stop: 09/25/19 20:15 Last Admin: 09/25/19 20:26 Dose: 0.5 mg Documented by: NOHEMY Hydromorphone HCl (Dilaudid) 0.5 mg IV NOW ONE Stop: 09/25/19 21:31 Last Admin: 09/25/19 21:42 Dose: 0.5 mg Documented by: NOHEMY Hydromorphone HCl (Dilaudid) 0.5 mg IV NOW ONE Stop: 09/25/19 21:31 Last Admin: 09/25/19 23:00 Dose: 0.5 mg Documented by: MARTY Sodium Chloride (Normal Saline 0.9%) 1,000 mls @ 1,000 mls/hr IV BOLUS ONE Stop: 09/25/19 20:32 Last Infusion: 09/25/19 21:42 Dose: 0 mls/hr Documented by: Admin: 09/25/19 19:59 Dose: 1,000 mls/hr Documented by: MARTY Ceftriaxone Sodium/Dextrose (Rocephin) 1 gm in 50 mls @ 100 mls/hr IV NOW ONE Stop: 09/25/19 21:38 Last Infusion: 09/25/19 22:12 Dose: 0 mls/hr Documented by: Admin: 09/25/19 21:42 Dose: 100 mls/hr Documented by: NOHEMY Lorazepam (Ativan) 1 mg IV NOW ONE Stop: 09/25/19 23:18 Last Admin: 09/25/19 23:24 Dose: 1 mg Documented by: MARTY Ondansetron HCl (Zofran) 4 mg IV NOW ONE Stop: 09/25/19 19:34 Last Admin: 09/25/19 19:48 Dose: 4 mg Documented by: NOHEMY Vital Signs Vital signs: Vital Signs - 8 hr 09/25/19 18:28 09/25/19 19:29 09/25/19 19:30 Temperature 98.0 F Pulse Rate 103 H 96 H 97 H Respiratory Rate 18 17 22 Blood Pressure 132/72 Pulse Oximetry 100 100 100 09/25/19 19:45 09/25/19 20:30 09/25/19 20:34 Temperature Pulse Rate 105 H 90 92 H Respiratory Rate 32 H 20 20 Blood Pressure 166/90 H 132/75 Pulse Oximetry 98 99 97 09/25/19 21:00 Temperature Pulse Rate 96 H Respiratory Rate 20 Blood Pressure Pulse Oximetry 98 MDM - Female Genitourinary <Xuan Herrera, [facility]- - Last Filed: 09/25/19 21:35> Differential Diagnosis Differential diagnosis: Likely urinary tract infection Lab Data Attestation: I reviewed the patient's lab results. Result diagrams: 09/25/19 19:16 09/25/19 19:16 Labs: Lab Results 09/25/19 09/25/19 09/25/19 Range/Units 19:16 19:16 19:16 WBC 8.7 (4.5-11.0) X10^3/uL RBC 3.46 L (4.0-5.2) X10^6/uL Hgb 11.6 L (12.0-16.0) g/dL Hct 34.0 L (36-46) % MCV 98.2 (80-100) fL MCH 33.6 (26-34) PG MCHC 34.2 (30-36) % RDW 13.2 (11.6-14.8) % Plt Count 390 (150-400) X10^3/uL Neut % (Auto) 44.6 L (50-75) % Lymph % (Auto) 46.2 H (25-40) % Martin % (Auto) 6.1 (3-14) % Eos % (Auto) 1.9 L (2-4) % Baso % (Auto) 1.2 (0-2) % Neut # (Auto) 3900 (0359-2031) /uL Lymph # (Auto) 4000 (5352-8922) /uL Martin # (Auto) 500 (0-900) /uL Eos # (Auto) 200 (0-450) /uL Baso # (Auto) 100 (0-100) /uL Sodium 135 L (137-145) mmol/L Potassium 4.4 (3.4-5.1) mmol/L Chloride 108 H (98-107) mmol/L Carbon Dioxide 18 L (22-32) mmol/L BUN 9 (7-17) mg/dL Creatinine 0.50 L (0.52-1.04) mg/dL Estimated GFR > 60.0 (>60) mL/min BUN/Creatinine Ratio 18.0 (6-22) Glucose 47 L (70-100) mg/dL Lactate (0.7-2.1) mmol/L Calcium 9.4 (8.4-10.2) mg/dL Total Bilirubin 0.5 (0.2-1.3) mg/dL AST 110 H (14-36) IU/L ALT 97 H (<35) IU/L Alkaline Phosphatase 430 H (38-126) U/L Total Protein 6.9 (6.3-8.2) g/dL Albumin 3.8 (3.5-5.0) g/dL Globulin 3.1 (1.7-4.1) g/dL Albumin/Globulin Ratio 1.2 (1.0-2.8) Amylase 45 (30-110) U/L Lipase < 10 L (23-300) U/L Procalcitonin < 0.05 (<0.5) ng/mL Urine RBC (0-5/HPF) Urine WBC (0-5/HPF) Ur Squamous Epith Cells (0-5/HPF) Urine Bacteria (None) Ur Culture Indicated? 09/25/19 09/25/19 Range/Units 19:16 20:58 WBC (4.5-11.0) X10^3/uL RBC (4.0-5.2) X10^6/uL Hgb (12.0-16.0) g/dL Hct (36-46) % MCV (80-100) fL MCH (26-34) PG MCHC (30-36) % RDW (11.6-14.8) % Plt Count (150-400) X10^3/uL Neut % (Auto) (50-75) % Lymph % (Auto) (25-40) % Martin % (Auto) (3-14) % Eos % (Auto) (2-4) % Baso % (Auto) (0-2) % Neut # (Auto) (5575-2068) /uL Lymph # (Auto) (8354-1711) /uL Martin # (Auto) (0-900) /uL Eos # (Auto) (0-450) /uL Baso # (Auto) (0-100) /uL Sodium (137-145) mmol/L Potassium (3.4-5.1) mmol/L Chloride (98-107) mmol/L Carbon Dioxide (22-32) mmol/L BUN (7-17) mg/dL Creatinine (0.52-1.04) mg/dL Estimated GFR (>60) mL/min BUN/Creatinine Ratio (6-22) Glucose (70-100) mg/dL Lactate 1.6 (0.7-2.1) mmol/L Calcium (8.4-10.2) mg/dL Total Bilirubin (0.2-1.3) mg/dL AST (14-36) IU/L ALT (<35) IU/L Alkaline Phosphatase (38-126) U/L Total Protein (6.3-8.2) g/dL Albumin (3.5-5.0) g/dL Globulin (1.7-4.1) g/dL Albumin/Globulin Ratio (1.0-2.8) Amylase (30-110) U/L Lipase (23-300) U/L Procalcitonin (<0.5) ng/mL Urine RBC 1-5/hpf (0-5/HPF) Urine WBC 0-1/hpf (0-5/HPF) Ur Squamous Epith Cells 0-1 /hpf (0-5/HPF) Urine Bacteria None seen (None) Ur Culture Indicated? Cult not indicated Point of Care Testing Glucose POC 140 Urine Dip Bedside Urine Glucose Negative Bedside Urine Bilirubin + 1 Bedside Urine Ketone - Negative Urine Specific [place] 1.015 Bedside Urine Occult Blood - Negative Bedside Urine pH 6.0 Bedside Urine Protein +/- 15 Bedside Urine Urobilinogen - Negative Bedside Urine Nitrite + Positive Bedside Urine Leukocytes + 70 Esterase MDM Narrative Medical decision making narrative: The patient is a 54-year-old female with a complicated medical history including nephrostomy tube, urosepsis who presents with a chief complaint of flank pain, muscle aches and chills as well as difficulty controlling her hypoglycemia. She left against medical advice from an outside facility yesterday. She has no leukocytosis, negative procalcitonin, negative lactate. However she received IV antibiotics in the emergency departm ent yesterday. Of note her hypoglycemia continues to be a problem in the emergency department, with blood sugars down to 30s. I am concerned about discharging this patient home given her history of urosepsis, combined with her hypoglycemia, I am concerned about sending the patient home. She is nitrate positive on her urine leukocyte esterase. I spoke with YASMANI Ferreira who kindly accepted the patient for observation. Patient to be transferred after :30. Spoke with Dr Medrano who will watch patient in meantime. <Kalia Medrano MD - Last Filed: 09/26/19 01:01> Lab Data Labs: Lab Results 09/25/19 09/25/19 09/25/19 Range/Units 19:16 19:16 19:16 WBC 8.7 (4.5-11.0) X10^3/uL RBC 3.46 L (4.0-5.2) X10^6/uL Hgb 11.6 L (12.0-16.0) g/dL Hct 34.0 L (36-46) % MCV 98.2 (80-100) fL MCH 33.6 (26-34) PG MCHC 34.2 (30-36) % RDW 13.2 (11.6-14.8) % Plt Count 390 (150-400) X10^3/uL Neut % (Auto) 44.6 L (50-75) % Lymph % (Auto) 46.2 H (25-40) % Martin % (Auto) 6.1 (3-14) % Eos % (Auto) 1.9 L (2-4) % Baso % (Auto) 1.2 (0-2) % Neut # (Auto) 3900 (6415-1030) /uL Lymph # (Auto) 4000 (1203-9928) /uL Martin # (Auto) 500 (0-900) /uL Eos # (Auto) 200 (0-450) /uL Baso # (Auto) 100 (0-100) /uL Sodium 135 L (137-145) mmol/L Potassium 4.4 (3.4-5.1) mmol/L Chloride 108 H (98-107) mmol/L Carbon Dioxide 18 L (22-32) mmol/L BUN 9 (7-17) mg/dL Creatinine 0.50 L (0.52-1.04) mg/dL Estimated GFR > 60.0 (>60) mL/min BUN/Creatinine Ratio 18.0 (6-22) Glucose 47 L (70-100) mg/dL Lactate (0.7-2.1) mmol/L Calcium 9.4 (8.4-10.2) mg/dL Total Bilirubin 0.5 (0.2-1.3) mg/dL AST 110 H (14-36) IU/L ALT 97 H (<35) IU/L Alkaline Phosphatase 430 H (38-126) U/L Total Protein 6.9 (6.3-8.2) g/dL Albumin 3.8 (3.5-5.0) g/dL Globulin 3.1 (1.7-4.1) g/dL Albumin/Globulin Ratio 1.2 (1.0-2.8) Amylase 45 (30-110) U/L Lipase < 10 L (23-300) U/L Procalcitonin < 0.05 (<0.5) ng/mL Urine RBC (0-5/HPF) Urine WBC (0-5/HPF) Ur Squamous Epith Cells (0-5/HPF) Urine Bacteria (None) Ur Culture Indicated? 09/25/19 09/25/19 Range/Units 19:16 20:58 WBC (4.5-11.0) X10^3/uL RBC (4.0-5.2) X10^6/uL Hgb (12.0-16.0) g/dL Hct (36-46) % MCV (80-100) fL MCH (26-34) PG MCHC (30-36) % RDW (11.6-14.8) % Plt Count (150-400) X10^3/uL Neut % (Auto) (50-75) % Lymph % (Auto) (25-40) % Martin % (Auto) (3-14) % Eos % (Auto) (2-4) % Baso % (Auto) (0-2) % Neut # (Auto) (5468-4534) /uL Lymph # (Auto) (4566-5827) /uL Martin # (Auto) (0-900) /uL Eos # (Auto) (0-450) /uL Baso # (Auto) (0-100) /uL Sodium (137-145) mmol/L Potassium (3.4-5.1) mmol/L Chloride (98-107) mmol/L Carbon Dioxide (22-32) mmol/L BUN (7-17) mg/dL Creatinine (0.52-1.04) mg/dL Estimated GFR (>60) mL/min BUN/Creatinine Ratio (6-22) Glucose (70-100) mg/dL Lactate 1.6 (0.7-2.1) mmol/L Calcium (8.4-10.2) mg/dL Total Bilirubin (0.2-1.3) mg/dL AST (14-36) IU/L ALT (<35) IU/L Alkaline Phosphatase (38-126) U/L Total Protein (6.3-8.2) g/dL Albumin (3.5-5.0) g/dL Globulin (1.7-4.1) g/dL Albumin/Globulin Ratio (1.0-2.8) Amylase (30-110) U/L Lipase (23-300) U/L Procalcitonin (<0.5) ng/mL Urine RBC 1-5/hpf (0-5/HPF) Urine WBC 0-1/hpf (0-5/HPF) Ur Squamous Epith Cells 0-1 /hpf (0-5/HPF) Urine Bacteria None seen (None) Ur Culture Indicated? Cult not indicated Point of Care Testing Glucose POC 140 Urine Dip Bedside Urine Glucose Negative Bedside Urine Bilirubin + 1 Bedside Urine Ketone - Negative Urine Specific [place] 1.015 Bedside Urine Occult Blood - Negative Bedside Urine pH 6.0 Bedside Urine Protein +/- 15 Bedside Urine Urobilinogen - Negative Bedside Urine Nitrite + Positive Bedside Urine Leukocytes + 70 Esterase Discharge Plan Departure Patient Disposition: Admitted as Observation Clinical Impression: Hypoglycemia UTI (urinary tract infection) Qualifiers: Urinary tract infection type: site unspecified Hematuria presence: without hematuria Qualified Code(s): N39.0 - Urinary tract infection, site not specified Discharge Date/Time: 09/25/19 23:58 Admit Date/Time: 09/25/19 21:12 Admit Provider: Veena Ferreira <Kalia Medrano MD - Last Filed: 09/26/19 01:01> Cosign ED Attending Cosignature Attestation: I was immediately available in the department for consultation. This documentation has been reviewed and I agree with assessment and plan. Supervised by Kalia Medrano MD
[2019-09-25 21:17] LABS: Bacteria Urine None Seen
[2019-09-25 21:30] LABS: Culture Indicated Urine Cult Not Indicated; RBC Urine 1-5/HPF (0-5/HPF); Squamous Epithelial Cell Urine 0-1 /HPF (0-5/HPF); WBC Urine 0-1/HPF (0-5/HPF)
[2019-09-25] MEDS: CEFTRIAXONE 1 GM/50 ML FROZ.PIGGY IV (21:42)
--- NOTE | 2019-09-25 22:23 | PC.NURSE ---
Pt is refusing picc line. Pt has working IV in her right upper arm. Pt stated, its my right.
--- NOTE | 2019-09-25 22:40 | PC.NURSE ---
patient tearful and reports feeling ovewhelmed with how her health ahs been the last several months. Patient is apologetic that she has been short with staff and is now agreeable to PICC line placement. Patient requests nightly meds and sandwich. HOB elevated andpatient given Kim. Patients med requests given to .
[2019-09-25] MEDS: LORazepam 2 MG/ML INJ 1 MG IV (23:24)
[2019-09-25] MEDS: DEXTROSE 50 % IN WATER 25 GM/50 ML SYRINGE IV (23:29)
--- NOTE | 2019-09-25 23:40 | PC.NURSE ---
Mid-line placed in right upper arm by Brenda PICC BILLY. Glucose 34, given amp of D50 and 1mg ativan IV.
--- NOTE | 2019-09-25 23:51 | PC.NURSE ---
Reported to Colleen CERVANTES and Nalini Ferreira RE: pt current glucose.
[2019-09-26 00:17] VITALS: BP 139/77; PULSE 98; RESP 18; TEMP 36.7; O2SAT 97
[2019-09-26 01:12] LABS: Hemoglobin A1C% w Est Avg Glu 6.6 % (4.0-6.0)
[2019-09-26] MEDS: ZOLPIDEM 5 MG TABLET PO (01:24)
[2019-09-26] MEDS: SODIUM CHLORIDE 0.9% 1,000 ML 100 ML IV (01:24)
[2019-09-26] MEDS: CEFEPIME 1 GM in SODIUM CHLORIDE 0.9% 100 ML 200 ML IV (01:27)
[2019-09-26] MEDS: OXYCODONE IR 5 MG TABLET PO (01:29)
[2019-09-26] MEDS: VANCOMYCIN 1,000 MG/200 ML PIGGYBACK 167 MG IV (02:11)
[2019-09-26] MEDS: DEXTROSE 50 % IN WATER 25 GM/50 ML SYRINGE IV (02:11)
--- NOTE | 2019-09-26 04:42 | PC.NURSE ---
Addendum entered by Colleen Molina R.N. 09/26/19 06:52: Before patient left AMA she had eaten about 8 saltine cracker packets, had 2 4oz Apple Juices, as well as had a sandwich while in the ED earlier. Before pt left I explained to her i was worried about her blood sugar dropping while she tried to walk home and she stated that she would be fine; I told her it was important for her to receive her IV ABX and pt understood and said we weren't helping her anyways. She walked past the main nurses station and said she was leaving. did wing up picking her up right outside hospital. Coban was wrapped on right arm where midline was pulled. She had her belongings, arm sling, urostomy intact working well. Alert and oriented X4 while leaving and still pretty annoyed and angry. Addendum entered by Colleen Molina R.N. 09/26/19 05:44: Patient left AMA at 0530; pt has been very agitated throughout entire shift. Stated shes had enough and was going to pull midline out of her arm. I informed YASMANI Ferreira who came and tried to speak to patient as well. Midline was removed; I asked patient if she was able to contact her and she said No and that she was going to walk home because she lives close. We called her and told him she was planning on leaving AMA and to please pick her up at the hospital so she could safely get home. AMA Paperwork signed. There was a brief period during the shift where the patient was apologetic about her tone and attitude and stated she was frustrated because she just wanted to sleep and had been poked and prodded too many times. Original Note: Patient is extremely rude, unpleasant and hostile. Contact precaution for MRSA Nares AxOx4, tolerating room air, stable vitals. Refused Telemetry, refused SCDs. Left arm in sling with steristrips and stitches on shoulder from previous surgery. Urostomy patent with clear, yellow, urine. Complains of flank and left arm pain, given oxycodone. CBG at 0200 was 42, pt mildly shaky. Had been drinking juice and eating crackers since admit. Reported to Jhon and said to Give full amp of D50. CBG after 161 Midline to LANIE had NS@100mL/hr running until 0430 when pt turned off IV pump and said she wanted to leave AMA and for staff to not come back in the room. She wanted to pull her midline out until i told her not to. She said once her comes in the morning that she will be leaving and will no longer accept any care for the rest of this shift, (YASMANI Ferreira aware)
--- NOTE | 2019-09-26 04:45 | PM.HP.1 ---
History of Present Illness History of Present Illness Date Patient Seen: 09/25/19 Time Patient Seen: 23:59 Chief complaint: KIDNEY INFECTION Narrative: Melvi Gibbs this is a 54-year-old female with a complicated medical history which includes a chronic interstitial cystitis resulting in placement of a urostomy stoma and bag that she has had for the past 20 years presents with what she felt was a urinary tract infection. She usually sees this by the appearance of her urine and stated that it was cloudy and that she had a low-grade fever. Apparently she was seen for this at [facility] and declined admission at that time. She informed the emergency room staff that she regretted not being admitted to the facility for treatment because she has worsened. She has a history of multiple UTIs with a variety of bacterial organisms that have become resistant to many common antibiotics. She also fractured her shoulder twice in May, apparently developed pneumonia while hospitalized for this leading to sepsis and a ventral pulmonary ventilation for which she spent an extended period of time there. She states she had a low-grade fever and sweats, she denies any visual impairment, difficulty swallowing, chest pain, shortness of breath, she did have nausea and vomiting last night, she has chronic shoulder pain secondary to it being 2 weeks out from surgery, she has chronic puritis, and anxiety. UA indicated positive for nitrates and bacteria and the sample will be cultured. Most recent urine cultures grew out a [place] back door, Citrobacter, and Staph aureus. Patient was tested positive for MRSA and is now on contact precautions. They gave her an initial dose of ceftriaxone IV 1 g however in reviewing the microbiology sensitivities 1 of the organisms was resistant to ceftriaxone. WBC was 8.7, RBC 3.46 hemoglobin 11.6, hematocrit 34.0%, platelet count 390, sodium 135, potassium 4.4, chloride 108, CO2 18, BUN 9, creatinine 0.50, GFR greater than 60, glucose 47, AST 110, ALT 97, alk-phos 430, total bilirubin 0.5 procalcitonin was 0.05. Patient History Medical History Anxiety (Chronic) Closed fracture of left humerus (Inactive) Endometriosis (Chronic) Fibromyalgia (Chronic) Heart palpitations (Chronic) History of asthma (Chronic) History of chronic hypertension (Chronic) History of COPD (Chronic) History of depression (Chronic) History of gastrointestinal ulcer (Chronic) History of kidney stones (Chronic) History of migraine (Chronic) History of panic attacks (Chronic) History of type 2 diabetes mellitus (Chronic) Interstitial cystitis (Chronic) UTI (urinary tract infection) (Chronic) Surgical History (Updated 09/26/19 @ 04:55 by YASMANI Velazquez) History of urostomy (Acute) S/P appendectomy (Resolved) Status post hysterectomy (Resolved) Status post left rotator cuff repair (Acute) Family & Social History Family History (Updated 09/26/19 @ 04:55 by YASMANI Velazquez) Mother Diabetes mellitus Lupus Other Family history non-contributory Social History: household members spouse Prior Living Arrangements House Safety & Behavioral: Feels Safe in Current Yes Environment Been Physically Hurt or No Threatened By a Person Suicidal Ideation Description None Suicide Plan Description No Plan Tobacco & Substance use: Tobacco type cigarettes Smoking Status Current every day smoker alcohol intake current alcohol intake frequency holiday/special occasion Substance Use Type marijuana,former substance user Meds Home Medications and Allergies Home Medications Medication Instructions Recorded Confirmed Type albuterol sulfate [Proventil HFA] 2 puff INH Q4HP PRN #0 01/08/13 09/26/19 History hydroxyzine HCl 25 mg PO TID #0 01/08/13 09/26/19 History magnesium oxide 400 mg PO BEDTIME #0 tab 01/08/13 09/26/19 History duloxetine 60 mg PO DAILY #0 07/04/17 09/26/19 History gabapentin [Neurontin] 600 mg PO TID #0 07/04/17 09/26/19 History multivitamin [Multiple Vitamins] 1 tab PO DAILY #0 07/04/17 09/26/19 History zolpidem [Ambien] 10 mg PO HS PRN #0 07/04/17 09/26/19 History Probiotic 1 tab PO BID 09/26/17 09/26/19 History amitriptyline 150 mg PO BEDTIME 09/26/17 09/26/19 History lisinopril 10 mg PO DAILY 09/26/17 09/26/19 History omeprazole 20 mg PO DAILY 09/26/17 09/26/19 History ondansetron 1 tab TRANSLINGUAL Q6H PRN 09/26/17 09/26/19 History potassium chloride 20 meq PO QNOON 09/26/17 09/26/19 History vitamin E 1 cap PO DAILY 09/26/17 09/26/19 History lorazepam 0.5 mg PO BID PRN 05/30/18 09/26/19 History Humulin N NPH Insulin KwikPen 15 unit SUBCUT BID PRN 05/17/19 09/26/19 History methocarbamol 1,000 mg PO Q6H PRN 05/17/19 09/26/19 History Allergies Allergy/AdvReac Type Severity Reaction Status Date / Time mupirocin Allergy Unknown Verified 09/25/19 18:32 naproxen Allergy Unknown Verified 09/25/19 18:32 Penicillins Allergy Unknown SINCE Verified 09/25/19 18:32 CHILDHOOD droperidol AdvReac Unknown Verified 09/25/19 18:32 fenofibrate [FENOFIBRATE] AdvReac Unknown Verified 09/25/19 18:32 ibuprofen AdvReac Unknown NAUSEA Verified 09/25/19 18:32 metformin [METFORMIN] AdvReac Unknown Verified 09/25/19 18:32 metoclopramide AdvReac Unknown BECAME Verified 09/25/19 18:32 JITTERY AND ANXIOUS nitrofurantoin AdvReac Unknown NAUSEA Verified 09/25/19 18:32 Review of Systems Review of Systems ROS: Yes All systems reviewed with the patient and are negative except as otherwise documented Exam Vital Signs (past 8 hours): - 09/25/19 21:00 09/25/19 22:30 09/25/19 22:40 Temperature Pulse Rate 96 H 98 H 98 H Respiratory Rate 20 21 35 H Blood Pressure Pulse Oximetry 98 98 98 09/25/19 22:50 09/25/19 23:00 09/25/19 23:10 Temperature Pulse Rate 96 H 99 H 98 H Respiratory Rate 36 H 38 H 28 H Blood Pressure Pulse Oximetry 99 99 98 09/25/19 23:47 09/25/19 23:48 09/26/19 00:17 Temperature 98.0 F Pulse Rate 98 H 98 H Respiratory Rate 22 18 Blood Pressure 146/74 H 139/77 Pulse Oximetry 98 98 97 Oxygen Delivery Method Room Air Oxygen Flow Rate 0 Narrative Exam Narrative: Temp is 98.0?, blood pressure 139/77, heart rate 98, respiratory rate 18, oxygen saturation 97% on room air, she is 46 kg with a BMI of 15.6 Gen: Alert, oriented, cachectic appearing 54 y.o. female, appears older than stated age HEENT: normocephalic, atraumatic, conjunctiva clear, sclera non-icteric, oral mucosa pink and moist Neck: supple, full ROM, no JVD, trachea is midline Resp: Lungs CTA, non-labored breathing CV: RRR, no murmur or rubs Abd: soft, non-tender, normoactive BTs Skin: no lesions or rashes, dry and intact Neuro: Alert and oriented X 4 w/no focal deficits. Speech clear and coherent. Extremities: Left arm is in a sling she has a healing surgical scar on the left shoulder, moves all 4 extremities, is ambulatory, negative Javid?s sign Psyche: normal mood and affect. Objective Labs Result Diagrams: 09/25/19 19:16 09/25/19 19:16 Labs: Laboratory Results - last 24 hr 09/25/19 09/25/19 09/25/19 19:16 19:16 19:16 WBC 8.7 RBC 3.46 L Hgb 11.6 L Hct 34.0 L MCV 98.2 MCH 33.6 MCHC 34.2 RDW 13.2 Plt Count 390 Neut % (Auto) 44.6 L Lymph % (Auto) 46.2 H [place] % (Auto) 6.1 Eos % (Auto) 1.9 L Baso % (Auto) 1.2 Neut # (Auto) 3900 Lymph # (Auto) 4000 [place] # (Auto) 500 Eos # (Auto) 200 Baso # (Auto) 100 Sodium 135 L Potassium 4.4 Chloride 108 H Carbon Dioxide 18 L BUN 9 Creatinine 0.50 L Estimated GFR > 60.0 BUN/Creatinine Ratio 18.0 Glucose 47 L Hemoglobin A1c Lactate Calcium 9.4 Total Bilirubin 0.5 AST 110 H ALT 97 H Alkaline Phosphatase 430 H Total Protein 6.9 Albumin 3.8 Globulin 3.1 Albumin/Globulin Ratio 1.2 Amylase 45 Lipase < 10 L Procalcitonin < 0.05 Urine RBC Urine WBC Ur Squamous Epith Cells Urine Bacteria Ur Culture Indicated? Nasal Screen MRSA (PCR) 09/25/19 09/25/19 09/25/19 19:16 19:16 20:58 WBC RBC Hgb Hct MCV MCH MCHC RDW Plt Count Neut % (Auto) Lymph % (Auto) [place] % (Auto) Eos % (Auto) Baso % (Auto) Neut # (Auto) Lymph # (Auto) [place] # (Auto) Eos # (Auto) Baso # (Auto) Sodium Potassium Chloride Carbon Dioxide BUN Creatinine Estimated GFR BUN/Creatinine Ratio Glucose Hemoglobin A1c 6.6 H Lactate 1.6 Calcium Total Bilirubin AST ALT Alkaline Phosphatase Total Protein Albumin Globulin Albumin/Globulin Ratio Amylase Lipase Procalcitonin Urine RBC 1-5/hpf Urine WBC 0-1/hpf Ur Squamous Epith Cells 0-1 /hpf Urine Bacteria None seen Ur Culture Indicated? Cult not indicated Nasal Screen MRSA (PCR) 09/25/19 21:55 WBC RBC Hgb Hct MCV MCH MCHC RDW Plt Count Neut % (Auto) Lymph % (Auto) [place] % (Auto) Eos % (Auto) Baso % (Auto) Neut # (Auto) Lymph # (Auto) [place] # (Auto) Eos # (Auto) Baso # (Auto) Sodium Potassium Chloride Carbon Dioxide BUN Creatinine Estimated GFR BUN/Creatinine Ratio Glucose Hemoglobin A1c Lactate Calcium Total Bilirubin AST ALT Alkaline Phosphatase Total Protein Albumin Globulin Albumin/Globulin Ratio Amylase Lipase Procalcitonin Urine RBC Urine WBC Ur Squamous Epith Cells Urine Bacteria Ur Culture Indicated? Nasal Screen MRSA (PCR) Positive for mrsa H Assessment & Plan Assessment & Plan narrative: Melvi Gibbs is admitted as an inpatient for treatment of a multi resistant urinary tract infection. UTI, acute, present on admission -she is initiated on IV cefepime and IV vancomycin -Probiotics Left shoulder repair and pinning with subsequent fracture, active, present on admission -patient is requiring pain control for this with oxycodone, scheduled Tylenol and as needed ibuprofen -she was due for wound site follow-up and nursing will need to look at her wound and help with cleansing the wound Diabetes type 2 currently hypoglycemic with widely varying glucose readings, acute, present on admission -patient's blood sugars have been dipping into the 30s and 40s and after being offered sweets and glucagon it goes up into the 140s. -hemoglobin A1c is 6.6 -she has an low-dose insulin correctional scale however she is not receiving insulin at this time due to hypoglycemia -she has been placed on a regular diet with ACHS glucose checks Essential hypertension -continue home dose of lisinopril 10 mg p.o. daily Anxiety -continue duloxetine 60 mg p.o. daily -PO ativan 1 mg q 6 hours prn for anxiety and spasms Sleep -Continue home dose of zolpidem 10 mg po qhs Consults: none Patient is inpatient status as her stay is likely to exceed 2 midnights. FEN: KVO to PICC line, regular diet, BMP in the am. VTE prophylaxis: Enoxaparin 40 mg subQ daily Dispo: Patient is threatening to leave AMA as of this am. Code Status: Full as discussed with patient COVID-19 COVID-19 status: Not tested
--- NOTE | 2019-09-26 06:06 | PM.DS.1 ---
History of Present Illness History of Present Illness Chief complaint: KIDNEY INFECTION Narrative: Melvi Gibbs this is a 54-year-old female with a complicated medical history which includes a chronic interstitial cystitis resulting in placement of a urostomy stoma and bag that she has had for the past 20 years presents with what she felt was a urinary tract infection. She usually sees this by the appearance of her urine and stated that it was cloudy and that she had a low-grade fever. Apparently she was seen for this at [facility] and declined admission at that time. She informed the emergency room staff that she regretted not being admitted to the facility for treatment because she has worsened. She has a history of multiple UTIs with a variety of bacterial organisms that have become resistant to many common antibiotics. She also fractured her shoulder twice in May, apparently developed pneumonia while hospitalized for this leading to sepsis and a ventral pulmonary ventilation for which she spent an extended period of time there. She states she had a low-grade fever and sweats, she denies any visual impairment, difficulty swallowing, chest pain, shortness of breath, she did have nausea and vomiting last night, she has chronic shoulder pain secondary to it being 2 weeks out from surgery, she has chronic puritis, and anxiety. UA indicated positive for nitrates and bacteria and the sample will be cultured. Most recent urine cultures grew out a [place] back door, Citrobacter, and Staph aureus. Patient was tested positive for MRSA and is now on contact precautions. They gave her an initial dose of ceftriaxone IV 1 g however in reviewing the microbiology sensitivities 1 of the organisms was resistant to ceftriaxone. WBC was 8.7, RBC 3.46 hemoglobin 11.6, hematocrit 34.0%, platelet count 390, sodium 135, potassium 4.4, chloride 108, CO2 18, BUN 9, creatinine 0.50, GFR greater than 60, glucose 47, AST 110, ALT 97, alk-phos 430, total bilirubin 0.5 procalcitonin was 0.05. Discharge Providers Provider Date of admission: 09/25/19 21:12 Discharge Date: 09/26/19 Primary care physician: Fadi Ko DO Consults: 09/26/19 00:40 Consult to Dietitian, Adult Urgent Comment: Reason For Exam: Hypoglycemic episodes, anorexia Discharge provider: YASMANI Velazquez Exam Vital Signs (past 8 hours): - 09/25/19 22:30 09/25/19 22:40 09/25/19 22:50 Temperature Pulse Rate 98 H 98 H 96 H Respiratory Rate 21 35 H 36 H Blood Pressure Pulse Oximetry 98 98 99 09/25/19 23:00 09/25/19 23:10 09/25/19 23:47 Temperature Pulse Rate 99 H 98 H 98 H Respiratory Rate 38 H 28 H Blood Pressure Pulse Oximetry 99 98 98 09/25/19 23:48 09/26/19 00:17 Temperature 98.0 F Pulse Rate 98 H Respiratory Rate 22 18 Blood Pressure 146/74 H 139/77 Pulse Oximetry 98 97 Oxygen Delivery Method Room Air Oxygen Flow Rate 0 Narrative Exam Narrative: See today's H and P Objective Labs Result Diagrams: 09/25/19 19:16 09/25/19 19:16 Labs: Laboratory Results - last 24 hr 09/25/19 09/25/19 09/25/19 19:16 19:16 19:16 WBC 8.7 RBC 3.46 L Hgb 11.6 L Hct 34.0 L MCV 98.2 MCH 33.6 MCHC 34.2 RDW 13.2 Plt Count 390 Neut % (Auto) 44.6 L Lymph % (Auto) 46.2 H [place] % (Auto) 6.1 Eos % (Auto) 1.9 L Baso % (Auto) 1.2 Neut # (Auto) 3900 Lymph # (Auto) 4000 [place] # (Auto) 500 Eos # (Auto) 200 Baso # (Auto) 100 Sodium 135 L Potassium 4.4 Chloride 108 H Carbon Dioxide 18 L BUN 9 Creatinine 0.50 L Estimated GFR > 60.0 BUN/Creatinine Ratio 18.0 Glucose 47 L Hemoglobin A1c Lactate Calcium 9.4 Total Bilirubin 0.5 AST 110 H ALT 97 H Alkaline Phosphatase 430 H Total Protein 6.9 Albumin 3.8 Globulin 3.1 Albumin/Globulin Ratio 1.2 Amylase 45 Lipase < 10 L Procalcitonin < 0.05 Urine RBC Urine WBC Ur Squamous Epith Cells Urine Bacteria Ur Culture Indicated? Nasal Screen MRSA (PCR) 09/25/19 09/25/19 09/25/19 19:16 19:16 20:58 WBC RBC Hgb Hct MCV MCH MCHC RDW Plt Count Neut % (Auto) Lymph % (Auto) [place] % (Auto) Eos % (Auto) Baso % (Auto) Neut # (Auto) Lymph # (Auto) [place] # (Auto) Eos # (Auto) Baso # (Auto) Sodium Potassium Chloride Carbon Dioxide BUN Creatinine Estimated GFR BUN/Creatinine Ratio Glucose Hemoglobin A1c 6.6 H Lactate 1.6 Calcium Total Bilirubin AST ALT Alkaline Phosphatase Total Protein Albumin Globulin Albumin/Globulin Ratio Amylase Lipase Procalcitonin Urine RBC 1-5/hpf Urine WBC 0-1/hpf Ur Squamous Epith Cells 0-1 /hpf Urine Bacteria None seen Ur Culture Indicated? Cult not indicated Nasal Screen MRSA (PCR) 09/25/19 21:55 WBC RBC Hgb Hct MCV MCH MCHC RDW Plt Count Neut % (Auto) Lymph % (Auto) [place] % (Auto) Eos % (Auto) Baso % (Auto) Neut # (Auto) Lymph # (Auto) [place] # (Auto) Eos # (Auto) Baso # (Auto) Sodium Potassium Chloride Carbon Dioxide BUN Creatinine Estimated GFR BUN/Creatinine Ratio Glucose Hemoglobin A1c Lactate Calcium Total Bilirubin AST ALT Alkaline Phosphatase Total Protein Albumin Globulin Albumin/Globulin Ratio Amylase Lipase Procalcitonin Urine RBC Urine WBC Ur Squamous Epith Cells Urine Bacteria Ur Culture Indicated? Nasal Screen MRSA (PCR) Positive for mrsa H Discharge Plan Discharge Plan Patient Disposition: Home Discharge orders & Medications Prescriptions: Continued hydroxyzine HCl 25 MG tablet 25 mg PO TID Qty: 0 RF: 0 magnesium oxide 400 MG tablet 400 mg PO BEDTIME Qty: 0 RF: 0 albuterol sulfate [Proventil HFA] 90 MCG/PUFF HFA aerosol inhaler 2 puff INH Q4HP PRN (Reason: Shortness Of Breath) Qty: 0 RF: 0 duloxetine 60 MG capsule,delayed release(DR/EC) 60 mg PO DAILY Qty: 0 RF: 0 gabapentin [Neurontin] 300 MG capsule 600 mg PO TID Qty: 0 RF: 0 multivitamin [Multiple Vitamins] 1 EACH tablet 1 tab PO DAILY Qty: 0 RF: 0 zolpidem [Ambien] 10 MG tablet 10 mg PO HS PRN (Reason: Insomnia) Qty: 0 RF: 0 lorazepam 0.5 mg tablet 0.5 mg PO BID PRN (Reason: Anxiety) RF: 0 methocarbamol 500 mg tablet 1,000 mg PO Q6H PRN (Reason: Muscle Spasm) RF: 0 Humulin N NPH Insulin KwikPen 100 unit/mL (3 mL) insulin pen 15 unit SUBCUT BID PRN (Reason: Hyperglycemia) RF: 0 amitriptyline 50 mg tablet 150 mg PO BEDTIME RF: 0 potassium chloride 20 mEq tablet,ER particles/crystals 20 meq PO QNOON RF: 0 lisinopril 10 mg tablet 10 mg PO DAILY RF: 0 omeprazole 20 mg capsule,delayed release(DR/EC) 20 mg PO DAILY RF: 0 ondansetron 4 mg tablet,disintegrating 1 tab Translingual Q6H PRN (Reason: Nausea) RF: 0 Probiotic 1 tab PO BID RF: 0 vitamin E 1 cap PO DAILY RF: 0 Follow up/Referrals: Fadi Ko DO [Primary Care Provider] - Discharge Data Primary Care Provider: Fadi Ko Attending Provider: Veena Ferreira Admit Date/Time: 09/25/19 21:12 Quality VTE Deep Vein Thrombosis/Pulmonary Embolism Present on Admission: No
== END 2019-09-26 05:30 | disposition home or self-care (01) ==
LOC: ED 18:48 → AC 21:28
PROVIDERS: Admitting Provider Nurse Practitioner Family; Emergency Provider Nurse Practitioner Family; PCP Family Medicine; Visit Provider Nurse Practitioner Family
DX: N30.90 Cystitis, unspecified without hematuria (principal); R10.9 Unspecified abdominal pain; B95.62 Methicillin resistant Staphylococcus aureus infection as the cause of diseases classified elsewhere; Z16.39 Resistance to other specified antimicrobial drug; Z87.440 Personal history of urinary (tract) infections; E11.649 Type 2 diabetes mellitus with hypoglycemia without coma; Z79.4 Long term (current) use of insulin; I10 Essential (primary) hypertension; F41.9 Anxiety disorder, unspecified; F17.210 Nicotine dependence, cigarettes, uncomplicated
CPT/HCPCS: 36415; 80053; 81003; 81015; 82150; 82962; 83036; 83605; 83690; 84145; 85025; 87040; 87797; 93005; 96361; 96365; 96367; 96375; 96376; 99284; G0378; J0692; J1170; J2060; J2405

== ENCOUNTER 2019-10-10 16:52 | Emergency (ER) | payer OTHER, SELFPAY ==
[2019-09-25 22:59] VITALS: BMI 15.6
== END 2019-10-10 17:12 | disposition left against medical advice (07) ==
PROVIDERS: Emergency Provider Emergency Medicine; PCP Family Medicine

== ENCOUNTER 2019-10-11 15:47 | Emergency (ER) | payer OTHER, SELFPAY ==
[2019-09-25 22:59] VITALS: BMI 15.6
[2019-10-11 15:50] VITALS: BP 107/62; PULSE 104; RESP 21; TEMP 36.9; O2SAT 100
--- NOTE | 2019-10-11 16:08 | ED.GENADULT ---
HPI - General Adult General Chief complaint: Weakness Stated complaint: Weakness Time Seen by Provider: 10/11/19 15:56 Source: patient and EMS Mode of arrival: EMS Limitations: no limitations History of Present Illness HPI narrative: 54-year-old female brought in by EMS for concerns of falling and left-sided shoulder and rib pain and chest wall pain. Patient did have an appointment with her primary doctor this morning however did not go to the appointment because ?I did not feel up to it ?. Patient does have frequent falls at home. She is not on anticoagulation. She is diabetic. Related Data Home Medications Medication Instructions Recorded Confirmed albuterol sulfate [Proventil HFA] 2 puff INH Q4HP PRN #0 01/08/13 09/26/19 hydroxyzine HCl 25 mg PO TID #0 01/08/13 09/26/19 magnesium oxide 400 mg PO BEDTIME #0 tab 01/08/13 09/26/19 duloxetine 60 mg PO DAILY #0 07/04/17 09/26/19 gabapentin [Neurontin] 600 mg PO TID #0 07/04/17 09/26/19 multivitamin [Multiple Vitamins] 1 tab PO DAILY #0 07/04/17 09/26/19 zolpidem [Ambien] 10 mg PO HS PRN #0 07/04/17 09/26/19 Probiotic 1 tab PO BID 09/26/17 09/26/19 amitriptyline 150 mg PO BEDTIME 09/26/17 09/26/19 lisinopril 10 mg PO DAILY 09/26/17 09/26/19 omeprazole 20 mg PO DAILY 09/26/17 09/26/19 ondansetron 1 tab TRANSLINGUAL Q6H PRN 09/26/17 09/26/19 potassium chloride 20 meq PO QNOON 09/26/17 09/26/19 vitamin E 1 cap PO DAILY 09/26/17 09/26/19 lorazepam 0.5 mg PO BID PRN 05/30/18 09/26/19 Humulin N NPH Insulin KwikPen 15 unit SUBCUT BID PRN 05/17/19 09/26/19 methocarbamol 1,000 mg PO Q6H PRN 05/17/19 09/26/19 Allergies Allergy/AdvReac Type Severity Reaction Status Date / Time mupirocin Allergy Unknown Verified 10/11/19 15:56 naproxen Allergy Unknown Verified 10/11/19 15:56 Penicillins Allergy Unknown SINCE Verified 10/11/19 15:56 CHILDHOOD droperidol AdvReac Unknown Verified 10/11/19 15:56 fenofibrate [FENOFIBRATE] AdvReac Unknown Verified 10/11/19 15:56 ibuprofen AdvReac Unknown NAUSEA Verified 10/11/19 15:56 metformin [METFORMIN] AdvReac Unknown Verified 10/11/19 15:56 metoclopramide AdvReac Unknown BECAME Verified 10/11/19 15:56 JITTERY AND ANXIOUS nitrofurantoin AdvReac Unknown NAUSEA Verified 10/11/19 15:56 Review of Systems Constitutional Constitutional: Denies fever(s), Reports frequent falls and Denies headache(s) Eyes Eyes: Denies change in vision ENT Ears, Nose, Mouth, and Throat: Reports dizziness and Denies headache(s) Cardiovascular Cardiovascular: Denies dyspnea Comments: Left-sided chest wall Respiratory Respiratory: Denies dyspnea Gastrointestinal Gastrointestinal: Denies abdominal pain Genitourinary Genitourinary: Denies dysuria Genitourinary: Denies dysuria Musculoskeletal Comments: Left shoulder pain, left chest wall pain, left toe pain Integumentary/Breasts Skin/Breast: Denies rash Neurologic Neurologic: Reports dizziness, Reports frequent falls and Denies headache(s) Hematologic/Lymphatic Hematologic/Lymphatic: Denies easy bleeding and Denies easy bruising Patient History Medical History Anxiety (Chronic) Closed fracture of left humerus (Inactive) Endometriosis (Chronic) Fibromyalgia (Chronic) Heart palpitations (Chronic) History of asthma (Chronic) History of chronic hypertension (Chronic) History of COPD (Chronic) History of depression (Chronic) History of gastrointestinal ulcer (Chronic) History of kidney stones (Chronic) History of migraine (Chronic) History of panic attacks (Chronic) History of type 2 diabetes mellitus (Chronic) Interstitial cystitis (Chronic) UTI (urinary tract infection) (Chronic) Surgical History (Updated 09/26/19 @ 04:55 by YASMANI Velazquez) History of urostomy (Acute) S/P appendectomy (Resolved) Status post hysterectomy (Resolved) Status post left rotator cuff repair (Acute) Family History Mother Diabetes mellitus Lupus Other Family history non-contributory Social History household members: spouse Smoking Status: Current every day smoker alcohol intake: current Smoking Status: Current every day smoker alcohol intake frequency: holidays/special occasions only Substance Use Type: former substance user and marijuana Exam Initial Vital Signs Initial Vital Signs: Vital Signs Temperature 98.4 F 10/11/19 15:50 Pulse Rate 104 H 10/11/19 15:50 Respiratory Rate 21 10/11/19 15:50 Blood Pressure 107/62 10/11/19 15:50 Pulse Oximetry 100 10/11/19 15:50 Const General: cooperative and comfortable Limitations: mental status not altered HENMT Head: normal to inspection and normocephalic Resp Effort & Inspection: normal respiratory effort Auscultation: clear to auscultation bilaterally Cardio Rate: tachycardic Rhythm: regular rhythm GI Inspection: non-distended Palpation: soft Skin Lesions: no lesions Rashes: no rashes Neuro General: patient alert and patient awake Cognition: normal cognition Speech: speech normal Extrem General: normal to inspection and capillary refill normal Psych Appearance: grossly normal and well kempt Scores GCS [place] coma scale eye opening: Spontaneous [place] coma scale verbal response: Orientated [place] coma scale motor response: Obey commands [place] coma scale total score: 15 Course Orders Ordered: ED Orders 10/11/19 16:25 XR foot LT min 3V Stat XR shoulder LT min 2V Stat 10/11/19 16:26 EKG-12 Lead Stat 10/11/19 16:27 XR ribs LT min 3V w CXR1V Stat 10/11/19 16:36 Complete Blood Count AUTO DIFF Stat Comprehensive Metabolic Panel Stat Ethanol (ETOH) Stat Magnesium Stat Phosphorous Stat Troponin I Stat Discontinued Medications Acetaminophen (Tylenol) 975 mg PO NOW ONE Stop: 10/11/19 18:01 Last Admin: 10/11/19 18:04 Dose: 975 mg Documented by: ANIBAL Sodium Chloride (Normal Saline 0.9%) 1,000 mls @ 1,000 mls/hr IV BOLUS ONE Stop: 10/11/19 17:24 Last Admin: 10/11/19 17:45 Dose: Not Given Documented by: ANIBAL Vital Signs Vital signs: Vital Signs - 8 hr 10/11/19 15:50 10/11/19 19:00 Temperature 98.4 F Pulse Rate 104 H 124 H Respiratory Rate 21 24 Blood Pressure 107/62 101/67 Pulse Oximetry 100 100 Medical Decision Making Lab Data Lab results reviewed: Yes I reviewed the patient's lab results. Result diagrams: 10/11/19 16:36 10/11/19 16:36 Labs: Lab Results 10/11/19 10/11/19 10/11/19 Range/Units 16:36 16:36 16:36 WBC 8.0 (4.5-11.0) X10^3/uL RBC 4.03 (4.0-5.2) X10^6/uL Hgb 13.5 (12.0-16.0) g/dL Hct 39.8 (36-46) % MCV 98.6 (80-100) fL MCH 33.5 (26-34) PG MCHC 34.0 (30-36) % RDW 14.1 (11.6-14.8) % Plt Count 411 H (150-400) X10^3/uL Neut % (Auto) 66.0 (50-75) % Lymph % (Auto) 28.0 (25-40) % Dougherty % (Auto) 4.7 (3-14) % Eos % (Auto) 0.6 L (2-4) % Baso % (Auto) 0.7 (0-2) % Neut # (Auto) 5200 (9886-1176) /uL Lymph # (Auto) 2200 (2034-5353) /uL Dougherty # (Auto) 400 (0-900) /uL Eos # (Auto) 100 (0-450) /uL Baso # (Auto) 100 (0-100) /uL Sodium 141 (137-145) mmol/L Potassium 4.1 (3.4-5.1) mmol/L Chloride 110 H (98-107) mmol/L Carbon Dioxide 17 L (22-32) mmol/L BUN 11 (7-17) mg/dL Creatinine 0.51 L (0.52-1.04) mg/dL Estimated GFR > 60.0 (>60) mL/min BUN/Creatinine Ratio 21.6 (6-22) Glucose 71 (70-100) mg/dL Calcium 10.2 (8.4-10.2) mg/dL Phosphorus 3.4 (2.5-4.5) mg/dL Magnesium 2.1 (1.6-2.3) mg/dL Total Bilirubin 0.4 (0.2-1.3) mg/dL AST 29 (14-36) IU/L ALT 22 (<35) IU/L Alkaline Phosphatase 256 H (38-126) U/L Troponin I < 0.012 (0.01-0.034) ng/mL Total Protein 7.9 (6.3-8.2) g/dL Albumin 4.4 (3.5-5.0) g/dL Globulin 3.5 (1.7-4.1) g/dL Albumin/Globulin Ratio 1.3 (1.0-2.8) Ethyl Alcohol 110 H ( - 10) mg/dL Imaging Data Extremity x-ray #1: Radiologist's Impression: [address] [address] XRay Report Signed Patient: Melvi Gibbs [facility]#: [id number] : 1965Acct:[id number] Age/Sex: 54 / FDate of Service: 10/11/19 Loc: ED Accession Number: [id number] Procedure: XR foot LT min 3V Ordering Provider: Brenton Drew D.O. PROCEDURE: XR FOOT LT MIN 3V INDICATIONS: Great toe pain after fall TECHNIQUE: 3 views of the foot were acquired. COMPARISON: None. FINDINGS: Bones: No dislocations. No suspicious bony lesions. There is moderate osteoarthritis at the sign report 1st MTP joint, and a nondisplaced diagonal fracture through the proximal phalanx of the 1st digit is noted. Soft tissues: No tibiotalar joint effusion. Achilles tendon appears normal. IMPRESSION: Moderate 1st MTP joint osteoarthritis, in addition to a diagonal fracture through the mid to distal diaphysis tracking towards the articular surface, minimally displaced. Dictated by: Akbar Ortiz M.D. on 10/11/2019 at 17:04 Approved by: Akbar Ortiz M.D. on 10/11/2019 at 17:06 Extremity x-ray #2: Radiologist's Impression: [address] [address] XRay Report Signed Patient: Melvi Gibbs [facility]#: [id number] : 1965Acct:[id number] Age/Sex: 54 / FDate of Service: 10/11/19 Loc: ED Accession Number: [id number] Procedure: XR shoulder LT min 2V Ordering Provider: Brenton Drew D.O. PROCEDURE: XR SHOULDER LT MIN 2V INDICATIONS: pain after fall TECHNIQUE: 3 views of the shoulder were acquired. COMPARISON: [facility], CR, XR SHOULDER LT MIN 2V, 06/22/2019, 16:48. [facility], CR, XR SHOULDER LT MIN 2V, 05/30/2018, 15:45. FINDINGS: Bones: No fractures or dislocations. No suspicious bony lesions. Visualized ribs appear intact. Postoperative changes of tendon transfer screws are noted at the proximal humeral metadiaphyseal junction and the previously identified humeral neck fracture is not appreciably distorted beyond that previously present. Soft tissues: Stable mild malalignment at fracture planes at the humeral neck on the left. Tendon transfer screws incidentally noted through the area of trauma. IMPRESSION: Mild impaction at the fracture planes, tendon transfer screws noted in the area of fracture. No new injury is identified. Dictated by: Akbar Ortiz M.D. on 10/11/2019 at 17:06 Approved by: Akbar Ortiz M.D. on 10/11/2019 at 17:07 Rib x-rays: Radiologist's Impression: [place] [address] XRay Report Signed Patient: Melvi Gibbs [facility]#: [id number] : 1965Acct:[id number] Age/Sex: 54 / FDate of Service: 10/11/19 Loc: ED Accession Number: [id number] Procedure: XR ribs LT min 3V w CXR1V Ordering Provider: Brenton Drew D.O. PROCEDURE: XR RIBS LT MIN 3V W CXR1V INDICATIONS: L mid rib pain after fall TECHNIQUE: 2 views of the left ribs were acquired, along with a single view chest. COMPARISON: None. FINDINGS: Surgical changes and devices: None. Bones and chest wall: No fractures or dislocations. No suspicious bony lesions. Overlying soft tissues appear unremarkable. Lungs and pleura: No pleural effusions or pneumothorax. Lungs appear clear. Mediastinum: Mediastinal contours appear normal. Heart size is normal. IMPRESSION: Normal for age, source of current pain after trauma symptoms is not seen. The study is somewhat limited by arm positioning over ribs on the left and also multiple monitoring leads over the ribs at and to the left of midline. Delayed plain films may be warranted depending on the clinical status in several days. No pneumothorax. Dictated by: Akbar Ortiz M.D. on 10/11/2019 at 17:11 Approved by: Akbar Ortiz M.D. on 10/11/2019 at 17:12 ECG Data Attestation: I personally reviewed and interpreted this ECG as follows: Prior ECG tracings: not available for review Interpretation: Sinus tachycardia Normal axis Normal QRS Normal QTC No ST T wave changes MDM Narrative Medical decision making narrative: Patient's alcohol level was elevated. She has no external signs of trauma. Her x-rays are unremarkable. Patient is well-known to myself in this emergency department. She does have a significant amount of anxiety. I was able to speak with the patient's . Feel the patient can be safely discharged home without further workup. She was given return precautions. Discharge Plan Departure Patient Disposition: Home Clinical Impression: Alcohol intoxication Qualifiers: Complication of substance-induced condition: with unspecified complication Qualified Code(s): F10.929 - Alcohol use, unspecified with intoxication, unspecified Discharge Date/Time: 10/11/19 19:02 Instructions: DI for Alcohol Use Disorder Activity Restrictions/Additional Instructions: No driving for the next 24 hours or in the future if you drink alcohol. I do recommend you continue all of your medications as directed. I recommend that you contact your primary provider for follow-up and keep those appointments. Return to the emergency department for any new or worsening symptoms Prescriptions: No Action hydroxyzine HCl 25 MG tablet 25 mg PO TID Qty: 0 RF: 0 magnesium oxide 400 MG tablet 400 mg PO BEDTIME Qty: 0 RF: 0 albuterol sulfate [Proventil HFA] 90 MCG/PUFF HFA aerosol inhaler 2 puff INH Q4HP PRN (Reason: Shortness Of Breath) Qty: 0 RF: 0 duloxetine 60 MG capsule,delayed release(DR/EC) 60 mg PO DAILY Qty: 0 RF: 0 gabapentin [Neurontin] 300 MG capsule 600 mg PO TID Qty: 0 RF: 0 multivitamin [Multiple Vitamins] 1 EACH tablet 1 tab PO DAILY Qty: 0 RF: 0 zolpidem [Ambien] 10 MG tablet 10 mg PO HS PRN (Reason: Insomnia) Qty: 0 RF: 0 lorazepam 0.5 mg tablet 0.5 mg PO BID PRN (Reason: Anxiety) RF: 0 methocarbamol 500 mg tablet 1,000 mg PO Q6H PRN (Reason: Muscle Spasm) RF: 0 Humulin N NPH Insulin KwikPen 100 unit/mL (3 mL) insulin pen 15 unit SUBCUT BID PRN (Reason: Hyperglycemia) RF: 0 amitriptyline 50 mg tablet 150 mg PO BEDTIME RF: 0 potassium chloride 20 mEq tablet,ER particles/crystals 20 meq PO QNOON RF: 0 lisinopril 10 mg tablet 10 mg PO DAILY RF: 0 omeprazole 20 mg capsule,delayed release(DR/EC) 20 mg PO DAILY RF: 0 ondansetron 4 mg tablet,disintegrating 1 tab Translingual Q6H PRN (Reason: Nausea) RF: 0 Probiotic 1 tab PO BID RF: 0 vitamin E 1 cap PO DAILY RF: 0 Referrals: Fadi Ko DO [Primary Care Provider] -
--- NOTE | 2019-10-11 16:08 | PC.NURSE ---
Patient came into the ED by EMS complains of generalized weakness. She has had recent surgery on her left shoulder and complains of pain on palpation. Her surgical scar is not swollen, red, or hot. Her temp is 98.4 F. She has a suprapubic cath. Her urine is clear. She states that she is afraid of dying and is anxious about being here.
--- NOTE | 2019-10-11 16:25 | DI.RAD.S_ITS ---
PROCEDURE: XR SHOULDER LT MIN 2V INDICATIONS: pain after fall TECHNIQUE: 3 views of the shoulder were acquired. COMPARISON: [facility], CR, XR SHOULDER LT MIN 2V, 06/22/2019, 16:48. [facility], CR, XR SHOULDER LT MIN 2V, 05/30/2018, 15:45. FINDINGS: Bones: No fractures or dislocations. No suspicious bony lesions. Visualized ribs appear intact. Postoperative changes of tendon transfer screws are noted at the proximal humeral metadiaphyseal junction and the previously identified humeral neck fracture is not appreciably distorted beyond that previously present. Soft tissues: Stable mild malalignment at fracture planes at the humeral neck on the left. Tendon transfer screws incidentally noted through the area of trauma. IMPRESSION: Mild impaction at the fracture planes, tendon transfer screws noted in the area of fracture. No new injury is identified. Dictated by: Akbar Ortiz M.D. on 10/11/2019 at 17:06 Approved by: Akbar Ortiz M.D. on 10/11/2019 at 17:07
--- NOTE | 2019-10-11 16:25 | DI.RAD.S_ITS ---
PROCEDURE: XR FOOT LT MIN 3V INDICATIONS: Great toe pain after fall TECHNIQUE: 3 views of the foot were acquired. COMPARISON: None. FINDINGS: Bones: No dislocations. No suspicious bony lesions. There is moderate osteoarthritis at the sign report 1st MTP joint, and a nondisplaced diagonal fracture through the proximal phalanx of the 1st digit is noted. Soft tissues: No tibiotalar joint effusion. Achilles tendon appears normal. IMPRESSION: Moderate 1st MTP joint osteoarthritis, in addition to a diagonal fracture through the mid to distal diaphysis tracking towards the articular surface, minimally displaced. Dictated by: Akbar Ortiz M.D. on 10/11/2019 at 17:04 Approved by: Akbar Ortiz M.D. on 10/11/2019 at 17:06
--- NOTE | 2019-10-11 16:27 | DI.RAD.S_ITS ---
PROCEDURE: XR RIBS LT MIN 3V W CXR1V INDICATIONS: L mid rib pain after fall TECHNIQUE: 2 views of the left ribs were acquired, along with a single view chest. COMPARISON: None. FINDINGS: Surgical changes and devices: None. Bones and chest wall: No fractures or dislocations. No suspicious bony lesions. Overlying soft tissues appear unremarkable. Lungs and pleura: No pleural effusions or pneumothorax. Lungs appear clear. Mediastinum: Mediastinal contours appear normal. Heart size is normal. IMPRESSION: Normal for age, source of current pain after trauma symptoms is not seen. The study is somewhat limited by arm positioning over ribs on the left and also multiple monitoring leads over the ribs at and to the left of midline. Delayed plain films may be warranted depending on the clinical status in several days. No pneumothorax. Dictated by: Akbar Ortiz M.D. on 10/11/2019 at 17:11 Approved by: Akbar Ortiz M.D. on 10/11/2019 at 17:12
[2019-10-11 16:56] LABS: Add Manual Diff / Slide Review NO; Basophils Absolute Auto 100 /uL (0-100); Basophils Percent Auto 0.7 % (0-2); Eosinophils Absolute Auto 100 /uL (0-450); Eosinophils Percent Auto 0.6 % (2-4); Hematocrit 39.8 % (36-46); Hemoglobin 13.5 g/dL (12.0-16.0); Lymphocytes Absolute Auto 2200 /uL (1100-4500); Mean Corpuscular Hemoglobin 33.5 PG (26-34); Mean Corpuscular Volume 98.6 fL (80-100); Monocytes Absolute Auto 400 /uL (0-900); Monocytes Percent Auto 4.7 % (3-14); Neutrophils Absolute Auto 5200 /uL (1500-7000); Platelet Count 411 X10^3/uL (150-400); Red Blood Cell Count 4.03 X10^6/uL (4.0-5.2); Red Cell Distribution Width 14.1 % (11.6-14.8)
[2019-10-11 17:02] LABS: Alanine Aminotransferase 22 IU/L (<35); Albumin 4.4 g/dL (3.5-5.0); Albumin Globulin Ratio 1.3 (1.0-2.8); Alkaline Phosphatase 256 U/L (38-126); Aspartate Aminotransferase 29 IU/L (14-36); BUN Creatinine Ratio 21.6 (6-22); Bilirubin Total 0.4 mg/dL (0.2-1.3); Blood Urea Nitrogen 11 mg/dL (7-17); Calcium 10.2 mg/dL (8.4-10.2); Carbon Dioxide 17 mmol/L (22-32); Chloride 110 mmol/L (98-107); Estimated Glomerular Filt Rate > 60.0 mL/min (>60); Ethanol (ETOH) 110 mg/dL; Globulin 3.5 g/dL (1.7-4.1); Glucose 71 mg/dL (70-100); HEMOLYSIS < 15 (0-50); Magnesium 2.1 mg/dL (1.6-2.3); Phosphorous 3.4 mg/dL (2.5-4.5); Potassium 4.1 mmol/L (3.4-5.1); Sodium 141 mmol/L (137-145); Total Protein 7.9 g/dL (6.3-8.2)
[2019-10-11 17:13] LABS: Troponin I < 0.012 ng/mL (0.01-0.034)
[2019-10-11] MEDS: ACETAMINOPHEN 325 MG TABLET 975 MG PO (18:04)
[2019-10-11 19:00] VITALS: BP 101/67; PULSE 124; RESP 24; O2SAT 100
== END 2019-10-11 19:02 | disposition home or self-care (01) ==
PROVIDERS: Emergency Provider Emergency Medicine; PCP Family Medicine
DX: F10.929 Alcohol use, unspecified with intoxication, unspecified (principal); Y90.5 Blood alcohol level of 100-119 mg/100 ml; R29.6 Repeated falls; E11.9 Type 2 diabetes mellitus without complications; R42 Dizziness and giddiness; M25.512 Pain in left shoulder; R07.81 Pleurodynia; M79.675 Pain in left toe(s)
CPT/HCPCS: 71101; 73030; 73630; 80053; 80320; 83735; 84100; 84484; 85025; 93005; 93010; 99284

== ENCOUNTER → 2019-10-27 12:24 | Outpatient (CLI) | payer OTHER, SELFPAY ==
[2019-09-25 22:59] VITALS: BMI 15.6
--- NOTE | 2019-10-27 | DI.RAD.S_ITS ---
PROCEDURE: XR SHOULDER LT MIN 2V INDICATIONS: left shoulder pain TECHNIQUE: 2 views of the shoulder were acquired. COMPARISON: [facility], CT, CT UE LT WO CON, 07/17/2019, 12:19. [facility], CR, XR RIBS LT MIN 3V W CXR1V, 10/11/2019, 16:34. [facility], CR, XR SHOULDER LT MIN 2V, 10/11/2019, 16:34. FINDINGS: Bones: There is a healing left humeral neck fracture, with blurring along the fracture line and periosteal reaction. No dislocation can be seen. No new fractures are seen. There is lies ribs are unremarkable. No suspicious lytic or blastic lesions are seen. Two anchors are seen involving the left humeral neck. Soft tissues: No suspicious soft tissue calcifications. The visualized lung demonstrates an unremarkable appearance. IMPRESSION: Healing left humeral neck fracture. Postoperative changes are noted. Dictated by: Damion Bonner M.D. on 10/27/2019 at 12:27 Approved by: Damion Bonner M.D. on 10/27/2019 at 12:30
== END ==
PROVIDERS: PCP Family Medicine; Referring Provider Nurse Practitioner Family; Visit Provider Nurse Practitioner Family
DX: M25.512 Pain in left shoulder (principal); S42.292D Other displaced fracture of upper end of left humerus, subsequent encounter for fracture with routine healing
CPT/HCPCS: 73030

== ENCOUNTER 2019-11-04 05:50 | Inpatient (IN) | payer OTHER, SELFPAY ==
[2019-09-25 22:59] VITALS: BMI 15.6
[2019-11-04] VITALS (10 sets, daily range): BP systolic 132–171; BP diastolic 72–100; PULSE 89–119; RESP 14–20; TEMP 36.3–37; O2SAT 94–98; BMI 16.1
--- NOTE | 2019-11-04 06:00 | DI.RAD.S_ITS ---
PROCEDURE: XR CHEST 1V INDICATIONS: cough, fever TECHNIQUE: One view of the chest was acquired. COMPARISON: [facility], CR, XR CHEST FOR PICC 1V, 08/27/2019, 8:38. FINDINGS: Surgical changes and devices: Left shoulder surgical screws.. Lungs and pleura: Lungs are hyperinflated, hyperlucent, and clear. No pleural effusions or pneumothorax. Mediastinum: Mediastinal contours appear normal. Heart size is normal. Bones and chest wall: No suspicious bony lesions. Overlying soft tissues appear unremarkable. IMPRESSION: 1. No acute consolidation. 2. Hyperlucent and hyperinflated lungs Dictated by: Mary Carter M.D. on 11/04/2019 at 7:21 Approved by: Mary Carter M.D. on 11/04/2019 at 7:22
--- NOTE | 2019-11-04 06:05 | ED_ITS ---
HPI - URI/Sore Throat General Chief Complaint: Upper Respiratory Symptoms Stated Complaint: POSS PNEUMONIA, KIDNEY INFECTION Time Seen by Provider: 11/04/19 05:54 Source: patient and family Mode of arrival: Family Vehicle Limitations: no limitations History of Present Illness HPI Narrative: 54-year-old female known well to the department is a daily smoker with chronic medical problems including diabetes, malnutrition, frequent UTIs with urostomy he has. She presents with her in the chief complaint of becoming ill over the past few days. She started feeling generally unwell and a bit weak a few days ago but yesterday developed fever, shaking chills as well as bilateral back pain. She has had cough with the production of brownish sputum as well. She has become a bit dizzy and lightheaded and is profoundly fatigued. She has poor appetite and requires assistance getting around. MD Complaint: fever and cough Related Data Home Medications Medication Instructions Recorded Confirmed albuterol sulfate [Proventil HFA] 2 puff INH Q4HP PRN #0 01/08/13 11/04/19 hydroxyzine HCl 50 mg PO BID #0 01/08/13 11/04/19 magnesium oxide 400 mg PO BEDTIME #0 tab 01/08/13 11/04/19 duloxetine 60 mg PO DAILY #0 07/04/17 11/04/19 gabapentin [Neurontin] 900 mg PO BID #0 07/04/17 11/04/19 multivitamin [Multiple Vitamins] 1 tab PO DAILY #0 07/04/17 11/04/19 zolpidem [Ambien] 10 mg PO HS PRN #0 07/04/17 11/04/19 Probiotic 1 tab PO BID 09/26/17 11/04/19 lisinopril 10 mg PO DAILY 09/26/17 11/04/19 omeprazole 20 mg PO DAILY 09/26/17 11/04/19 ondansetron 1 tab TRANSLINGUAL Q6H PRN 09/26/17 11/04/19 potassium chloride 20 meq PO QPM 09/26/17 11/04/19 vitamin E 1 cap PO DAILY 09/26/17 11/04/19 lorazepam 0.5 mg PO BID PRN 05/30/18 11/04/19 Humulin N NPH Insulin KwikPen 15 unit SUBCUT BID 05/17/19 11/04/19 methocarbamol 1,000 mg PO Q6H PRN 05/17/19 11/04/19 Vitamin D3 Complete 2,000 units PO DAILY 11/04/19 11/04/19 quetiapine 100 mg PO BEDTIME 11/04/19 11/04/19 Allergies Allergy/AdvReac Type Severity Reaction Status Date / Time mupirocin Allergy Unknown Verified 10/11/19 15:56 naproxen Allergy Unknown Verified 10/11/19 15:56 Penicillins Allergy Unknown SINCE Verified 10/11/19 15:56 CHILDHOOD droperidol AdvReac Unknown Verified 10/11/19 15:56 fenofibrate [FENOFIBRATE] AdvReac Unknown Verified 10/11/19 15:56 ibuprofen AdvReac Unknown NAUSEA Verified 10/11/19 15:56 metformin [METFORMIN] AdvReac Unknown Verified 10/11/19 15:56 metoclopramide AdvReac Unknown BECAME Verified 10/11/19 15:56 JITTERY AND ANXIOUS nitrofurantoin AdvReac Unknown NAUSEA Verified 10/11/19 15:56 Review of Systems Constitutional Constitutional: Reports chills, Reports fatigue, Reports fever(s), Denies frequent falls, Denies lethargy and Denies weakness Eyes Eyes: Denies change in vision, Denies eye discharge, Denies irritation and Denies loss of vision ENT Ears, Nose, Mouth, and Throat: Denies change in voice, Denies dizziness, Denies neck pain, Denies sore throat and Denies throat swelling Cardiovascular Cardiovascular: Denies chest pain, Denies irregular heart rhythm, Denies lightheadedness, Denies palpitations, Reports dyspnea, Denies dyspnea on exertion and Denies orthopnea Respiratory Respiratory: Reports cough, Reports dyspnea, Denies dyspnea on exertion and Denies wheezing Gastrointestinal Gastrointestinal: Denies abdominal pain, Denies change in bowel habits, Denies diarrhea, Denies nausea and Denies vomiting Musculoskeletal Musculoskeletal: Reports back pain, Denies neck pain and Denies numbness Integumentary/Breasts Skin/Breast: Denies pruritus, Denies erythema, Denies rash and Denies wounds Neurologic Neurologic: Denies behavioral changes, Denies confusion, Denies dizziness, Denies frequent falls, Denies loss of vision, Denies numbness and Denies weakness Psychiatric Psychiatric: Denies anxiety, Denies behavioral changes, Denies confusion, Denies depression, Denies homicidal ideation and Denies suicidal ideation Endocrine Endocrine: Reports fatigue, Denies flushing and Denies palpitations Hematologic/Lymphatic Hematologic/Lymphatic: Denies easy bruising Allergic/Immunologic Allergic/Immunologic: Denies urticaria, Denies throat swelling and Denies wheezing Patient History Medical History (Updated 11/04/19 @ 15:28 by Veronica Strauss DO) Anxiety (Chronic) Closed fracture of left humerus (Inactive) Endometriosis (Chronic) Fibromyalgia (Chronic) Heart palpitations (Chronic) History of asthma (Chronic) History of chronic hypertension (Chronic) History of COPD (Chronic) History of depression (Chronic) History of gastrointestinal ulcer (Chronic) History of kidney stones (Chronic) History of migraine (Chronic) History of panic attacks (Chronic) History of type 2 diabetes mellitus (Chronic) Hyperlipidemia (Acute) Interstitial cystitis (Chronic) UTI (urinary tract infection) (Chronic) Surgical History History of urostomy (Acute) S/P appendectomy (Resolved) Status post hysterectomy (Resolved) Status post left rotator cuff repair (Acute) Family History (Updated 11/04/19 @ 15:08 by Veronica Strauss DO) Mother Diabetes mellitus Lupus Social History household members: spouse Smoking Status: Current every day smoker alcohol intake: current Smoking Status: Current every day smoker alcohol intake frequency: holidays/special occasions only Substance Use Type: former substance user and marijuana Exam Narrative Exam Narrative: GENERAL: [54] year old patient appears older than stated age. Chronically ill, thin, obviously uncomfortable. HEAD: Atraumatic. Normocephalic. Temporal wasting EYES: Pupils equal round and reactive. Extraocular motions intact. No scleral icterus. No injection or drainage. ENT: Nose without bleeding, purulent drainage. Throat without erythema, tonsillar hypertrophy or exudate. Airway patent. NECK: Trachea midline. Non tender CARDIOVASCULAR: Tachycardic but regular rhythm without murmurs, gallops, or ru bs. RESPIRATORY: Decreased breath sounds bilaterally with prolonged expiratory phase and crackles in bilateral bases GASTROINTESTINAL: Abdomen soft, non-tender, nondistended. EXTREMITIES: No edema or joint tenderness. BACK: Nontender without deformity or crepitance. No flank tenderness. NEURO: AOx3. SKIN: No rash or erythema of visible areas Initial Vital Signs Initial Vital Signs: Vital Signs Pulse Rate 119 H 11/04/19 06:00 Pulse Oximetry 94 11/04/19 06:00 Course Orders Ordered: Discontinued Medications Acetaminophen (Tylenol) 650 mg PO Q6HR PRN PRN Reason: Fever/Mild Pain (1-3) Al Hydrox/Mg Hydrox/Simethicone (Maalox Plus) 30 ml PO Q6HR PRN PRN Reason: Dyspepsia Albuterol (Ventolin Hfa (Vent/Covid R/O)) 2 puff INH Q4H PRN PRN Reason: Shortness Of Breath Bisacodyl (Dulcolax) 10 mg TN DAILY PRN PRN Reason: Constipation Calcium Carbonate (Tums) 1,000 mg PO Q4HR PRN PRN Reason: Dyspepsia Dextrose (D50w) 25 gm IV PRN PRN; Protocol PRN Reason: Hypoglycemia Duloxetine HCl (Cymbalta) 60 mg PO DAILY [facility] Enoxaparin Sodium (Lovenox) 40 mg SUBCUT DAILY [facility] Gabapentin (Neurontin) 900 mg PO BID [facility] Hydromorphone HCl (Dilaudid) 1 mg IV NOW ONE Stop: 11/04/19 07:06 Last Admin: 11/04/19 07:28 Dose: 1 mg Documented by: MCKAY Hydromorphone HCl (Dilaudid) 1 mg IV NOW ONE Stop: 11/04/19 09:22 Last Admin: 11/04/19 09:27 Dose: 1 mg Documented by: NARENDRA Hydroxyzine Pamoate (Vistaril) 50 mg PO BID [facility] Levofloxacin (Levaquin) 750 mg in 150 mls @ 100 mls/hr IV NOW ISSA Levofloxacin (Levaquin) 750 mg in 150 mls @ 100 mls/hr IV NOW ONE Stop: 11/04/19 07:30 Last Infusion: 11/04/19 08:29 Dose: 0 mls/hr Documented by: Admin: 11/04/19 06:50 Dose: 100 mls/hr Documented by: MCKAY Sodium Chloride (Normal Saline 0.9%) 1,000 mls @ 1,000 mls/hr IV BOLUS ONE Stop: 11/04/19 08:08 Last Admin: 11/04/19 08:40 Dose: Not Given Documented by: NARENDRA Lactated Ringer's (Lactated Ringers) 1,360.77 mls @ 453.59 mls/hr 30 ml/kg infuse over 3 hr (1360.77 ml) IV NOW ONE Stop: 11/04/19 10:11 Last Infusion: 11/04/19 09:50 Dose: 453.59 mls/hr Documented by: Admin: 11/04/19 07:29 Dose: 453.59 mls/hr Documented by: MCKAY Meropenem (Merrem) 1 gm in 50 mls @ 100 mls/hr IV NOW ONE Stop: 11/04/19 08:28 Last Infusion: 11/04/19 09:23 Dose: 0 mls/hr Documented by: Admin: 11/04/19 08:48 Dose: 100 mls/hr Documented by: NARENDRA Meropenem (Merrem) 1 gm in 50 mls @ 100 mls/hr IV Q8H [facility] Sodium Chloride (Normal Saline 0.9%) 1,000 mls @ 100 mls/hr IV CONT ISSA Last Admin: 11/04/19 11:41 Dose: 100 mls/hr Documented by: CHRISTOFER Insulin Aspart (Novolog Flexpen) 0 unit SUBCUT ACHS [facility]; Protocol Ketorolac Tromethamine (Toradol) 15 mg IV NOW ONE Stop: 11/04/19 06:02 Last Admin: 11/04/19 06:49 Dose: 15 mg Documented by: MCKAY Lactobacillus Acidophilus (Bacid Caplet) 1 each PO BID [facility] Lisinopril (Zestril) 10 mg PO DAILY [facility] Lorazepam (Ativan) 0.5 mg PO BID PRN PRN Reason: Anxiety Last Admin: 11/04/19 11:40 Dose: 0.5 mg Documented by: CHRISTOFER Magnesium Hydroxide (Milk Of Magnesia) 30 ml PO DAILY PRN PRN Reason: Constipation Magnesium Oxide (Mag Ox) 400 mg PO BEDTIME [facility] Methocarbamol (Robaxin) 1,000 mg PO Q6H PRN PRN Reason: Muscle Spasm Last Admin: 11/04/19 13:41 Dose: 1,000 mg Documented by: CHRISTOFER Naloxone HCl (Narcan) 0.2 mg IV Q2MIN PRN PRN Reason: Opiate Reversal Nicotine (Nicoderm) 21 mg TOP DAILY [facility] Non-Formulary Medication (Insulin Nph Isoph U-100 Human [Humulin N Nph Insulin Kwikpen]) 15 unit SUBCUT BID PRN PRN Reason: Hyperglycemia Ondansetron HCl (Zofran) 4 mg IV Q8HR PRN PRN Reason: Nausea And Vomiting Pantoprazole Sodium (Protonix) 20 mg PO DAILY [facility] Quetiapine Fumarate (Seroquel) 100 mg PO BEDTIME [facility] Zolpidem Tartrate (Ambien) 10 mg PO BEDTIME PRN PRN Reason: Insomnia Vital Signs Vital signs: Vital Signs - 8 hr 11/04/19 06:01 Temperature 98.6 F Pulse Rate 111 H Respiratory Rate 17 Blood Pressure 135/90 Pulse Oximetry 98 MDM - URI/Sore Throat Lab Data Result diagrams: 11/04/19 06:40 11/04/19 06:40 Labs: Lab Results 11/04/19 11/04/19 11/04/19 Range/Units 06:40 06:40 06:40 WBC 15.9 H (4.5-11.0) X10^3/uL RBC 3.69 L (4.0-5.2) X10^6/uL Hgb 12.3 (12.0-16.0) g/dL Hct 37.5 (36-46) % MCV 101.5 H (80-100) fL MCH 33.4 (26-34) PG MCHC 32.9 (30-36) % RDW 14.5 (11.6-14.8) % Plt Count 359 (150-400) X10^3/uL Neut % (Auto) 80.1 H (50-75) % Lymph % (Auto) 13.6 L (25-40) % Bonner % (Auto) 5.4 (3-14) % Eos % (Auto) 0.3 L (2-4) % Baso % (Auto) 0.6 (0-2) % Neut # (Auto) 65110 H (8313-6630) /uL Lymph # (Auto) 2200 (9961-0457) /uL Bonner # (Auto) 900 (0-900) /uL Eos # (Auto) 0 (0-450) /uL Baso # (Auto) 100 (0-100) /uL D-Dimer (<230) ng/mL Sodium 137 (137-145) mmol/L Potassium 4.8 (3.4-5.1) mmol/L Chloride 107 (98-107) mmol/L Carbon Dioxide 16 L (22-32) mmol/L BUN 13 (7-17) mg/dL Creatinine 0.60 (0.52-1.04) mg/dL Estimated GFR > 60.0 (>60) mL/min BUN/Creatinine Ratio 21.7 (6-22) Glucose 178 H (70-100) mg/dL Lactate (0.7-2.1) mmol/L Calcium 9.8 (8.4-10.2) mg/dL Total Bilirubin 0.6 (0.2-1.3) mg/dL AST 30 (14-36) IU/L ALT 18 (<35) IU/L Alkaline Phosphatase 112 (38-126) U/L C-Reactive Protein (<1.0) mg/dL Total Protein 7.7 (6.3-8.2) g/dL Albumin 4.3 (3.5-5.0) g/dL Globulin 3.4 (1.7-4.1) g/dL Albumin/Globulin Ratio 1.3 (1.0-2.8) Procalcitonin < 0.05 (<0.5) ng/mL Urine RBC (0-5/HPF) Urine WBC (0-5/HPF) Triple Phos Crystals Amorphous Sediment Urine Bacteria (None) Ur Culture Indicated? COVID-19 PCR (Negative) 11/04/19 11/04/19 11/04/19 Range/Units 06:40 06:40 06:40 WBC (4.5-11.0) X10^3/uL RBC (4.0-5.2) X10^6/uL Hgb (12.0-16.0) g/dL Hct (36-46) % MCV (80-100) fL MCH (26-34) PG MCHC (30-36) % RDW (11.6-14.8) % Plt Count (150-400) X10^3/uL Neut % (Auto) (50-75) % Lymph % (Auto) (25-40) % Bonner % (Auto) (3-14) % Eos % (Auto) (2-4) % Baso % (Auto) (0-2) % Neut # (Auto) (3110-1640) /uL Lymph # (Auto) (3751-7851) /uL Bonner # (Auto) (0-900) /uL Eos # (Auto) (0-450) /uL Baso # (Auto) (0-100) /uL D-Dimer < 200 (<230) ng/mL Sodium (137-145) mmol/L Potassium (3.4-5.1) mmol/L Chloride (98-107) mmol/L Carbon Dioxide (22-32) mmol/L BUN (7-17) mg/dL Creatinine (0.52-1.04) mg/dL Estimated GFR (>60) mL/min BUN/Creatinine Ratio (6-22) Glucose (70-100) mg/dL Lactate 4.2 H* (0.7-2.1) mmol/L Calcium (8.4-10.2) mg/dL Total Bilirubin (0.2-1.3) mg/dL AST (14-36) IU/L ALT (<35) IU/L Alkaline Phosphatase (38-126) U/L C-Reactive Protein < 0.5 (<1.0) mg/dL Total Protein (6.3-8.2) g/dL Albumin (3.5-5.0) g/dL Globulin (1.7-4.1) g/dL Albumin/Globulin Ratio (1.0-2.8) Procalcitonin (<0.5) ng/mL Urine RBC (0-5/HPF) Urine WBC (0-5/HPF) Triple Phos Crystals Amorphous Sediment Urine Bacteria (None) Ur Culture Indicated? COVID-19 PCR (Negative) 11/04/19 11/04/19 Range/Units 07:00 07:10 WBC (4.5-11.0) X10^3/uL RBC (4.0-5.2) X10^6/uL Hgb (12.0-16.0) g/dL Hct (36-46) % MCV (80-100) fL MCH (26-34) PG MCHC (30-36) % RDW (11.6-14.8) % Plt Count (150-400) X10^3/uL Neut % (Auto) (50-75) % Lymph % (Auto) (25-40) % Bonner % (Auto) (3-14) % Eos % (Auto) (2-4) % Baso % (Auto) (0-2) % Neut # (Auto) (2272-3394) /uL Lymph # (Auto) (6262-1240) /uL Bonner # (Auto) (0-900) /uL Eos # (Auto) (0-450) /uL Baso # (Auto) (0-100) /uL D-Dimer (<230) ng/mL Sodium (137-145) mmol/L Potassium (3.4-5.1) mmol/L Chloride (98-107) mmol/L Carbon Dioxide (22-32) mmol/L BUN (7-17) mg/dL Creatinine (0.52-1.04) mg/dL Estimated GFR (>60) mL/min BUN/Creatinine Ratio (6-22) Glucose (70-100) mg/dL Lactate (0.7-2.1) mmol/L Calcium (8.4-10.2) mg/dL Total Bilirubin (0.2-1.3) mg/dL AST (14-36) IU/L ALT (<35) IU/L Alkaline Phosphatase (38-126) U/L C-Reactive Protein (<1.0) mg/dL Total Protein (6.3-8.2) g/dL Albumin (3.5-5.0) g/dL Globulin (1.7-4.1) g/dL Albumin/Globulin Ratio (1.0-2.8) Procalcitonin (<0.5) ng/mL Urine RBC 1-5/hpf (0-5/HPF) Urine WBC 10-30/hpf H (0-5/HPF) Triple Phos Crystals Occasional Amorphous Sediment 2+ Urine Bacteria Many (>30) H (None) Ur Culture Indicated? Specimen cultured COVID-19 PCR Negative (Negative) Point of Care Testing Glucose POC 185 Urine Dip Bedside Urine Glucose Negative Bedside Urine Bilirubin + 1 Bedside Urine Ketone - Negative Urine Specific Ethel 1.010 Bedside Urine Occult Blood - Negative Bedside Urine pH 7.5 Bedside Urine Protein +/- 15 Bedside Urine Urobilinogen - Negative Bedside Urine Nitrite - Negative Bedside Urine Leukocytes +/- 15 Esterase Discharge Plan Departure Patient Disposition: Admitted As Inpatient Clinical Impression: UTI (urinary tract infection) Qualifiers: Urinary tract infection type: acute pyelonephritis Qualified Code(s): N10 - Acute pyelonephritis Sepsis Qualifiers: Sepsis type: sepsis due to unspecified organism Sepsis acute organ dysfunction status: without acute organ dysfunction Qualified Code(s): A41.9 - Sepsis, unspecified organism Discharge Date/Time: 11/04/19 09:52 Referrals: Fadi Ko DO [Primary Care Provider] - Admit Date/Time: 11/04/19 07:29 Admit Provider: Veronica Strauss
[2019-11-04 06:49] LABS: Add Manual Diff / Slide Review NO; Basophils Absolute Auto 100 /uL (0-100); Basophils Percent Auto 0.6 % (0-2); Eosinophils Absolute Auto 0 /uL (0-450); Eosinophils Percent Auto 0.3 % (2-4); Hematocrit 37.5 % (36-46); Hemoglobin 12.3 g/dL (12.0-16.0); Lymphocytes Absolute Auto 2200 /uL (1100-4500); Lymphocytes Percent Auto 13.6 % (25-40); Mean Corpuscular HGB Conc 32.9 % (30-36); Mean Corpuscular Hemoglobin 33.4 PG (26-34); Mean Corpuscular Volume 101.5 fL (80-100); Monocytes Absolute Auto 900 /uL (0-900); Monocytes Percent Auto 5.4 % (3-14); Neutrophils Absolute Auto 12800 /uL (1500-7000); Neutrophils Percent Auto 80.1 % (50-75); Platelet Count 359 X10^3/uL (150-400); Red Blood Cell Count 3.69 X10^6/uL (4.0-5.2); Red Cell Distribution Width 14.5 % (11.6-14.8); White Blood Cell Count 15.9 X10^3/uL (4.5-11.0)
[2019-11-04] MEDS: KETOROLAC 60 MG/2 ML VIAL 15 MG IV (06:49)
[2019-11-04] MEDS: levoFLOXacin 750 MG/150 ML PIGGYBACK 100 MG IV (06:50)
[2019-11-04 06:59] LABS: D Dimer < 200 ng/mL (<230)
[2019-11-04 07:01] LABS: Alanine Aminotransferase 18 IU/L (<35); Albumin 4.3 g/dL (3.5-5.0); Albumin Globulin Ratio 1.3 (1.0-2.8); Alkaline Phosphatase 112 U/L (38-126); Aspartate Aminotransferase 30 IU/L (14-36); BUN Creatinine Ratio 21.7 (6-22); Bilirubin Total 0.6 mg/dL (0.2-1.3); Blood Urea Nitrogen 13 mg/dL (7-17); Calcium 9.8 mg/dL (8.4-10.2); Carbon Dioxide 16 mmol/L (22-32); Chloride 107 mmol/L (98-107); Estimated Glomerular Filt Rate > 60.0 mL/min (>60); Globulin 3.4 g/dL (1.7-4.1); Glucose 178 mg/dL (70-100); HEMOLYSIS 27 (0-50); Potassium 4.8 mmol/L (3.4-5.1); Sodium 137 mmol/L (137-145); Total Protein 7.7 g/dL (6.3-8.2)
[2019-11-04 07:15] LABS: C-Reactive Protein Quant < 0.5 mg/dL (<1.0); Lactate (Lactic Acid) 4.2 mmol/L (0.7-2.1)
[2019-11-04 07:17] LABS: Procalcitonin < 0.05 ng/mL (<0.5)
[2019-11-04] MEDS: HYDROMORPHONE 1 MG INJ IV (07:28)
[2019-11-04] MEDS: LACTATED RINGERS 453.59 ML IV (07:29)
--- NOTE | 2019-11-04 07:46 | DI.CT.S_ITS ---
PROCEDURE: CT ABDOMEN PELVIS W CON INDICATIONS: Sepsis. H/O cystectomy TECHNIQUE: After the administration of intravenous contrast, 5 mm thick sections acquired from the diaphragm to the symphysis. 5 mm coronal and sagittal reformats were acquired. For radiation dose reduction, the following was used: automated exposure control, adjustment of mA and/or kV according to patient size. COMPARISON: None. FINDINGS: Image quality: Excellent. ABDOMEN: Lung bases: Lung bases are clear. Heart size is normal. Solid organs: Status post cholecystectomy. Mild intrahepatic and extrahepatic biliary ductal dilatation, likely a function of post cholecystectomy reservoir phenomenon. No acute finding or mass lesion in the liver, spleen, pancreas, adrenal glands, or kidneys. Peritoneum and bowel: Right lower quadrant ostomy with no evidence of small bowel obstruction or other acute intestinal abnormality. Postsurgical changes in the right lower abdomen and pelvis. Nodes and vessels: No retroperitoneal or mesenteric adenopathy by size criteria. Aorta and inferior vena cava are normal in size. Miscellaneous: No ventral hernias. PELVIS: Genitourinary: Bladder wall thickness is normal. Miscellaneous: No inguinal hernias or adenopathy. Bones: No suspicious bony lesions. No vertebral body compression fractures. IMPRESSION: No acute findings. No evidence of active inflammation or infection in the abdomen or pelvis. Dictated by: Jae Stringer M.D. on 11/04/2019 at 9:12 Approved by: Jae Stringer M.D. on 11/04/2019 at 9:15
[2019-11-04 08:11] LABS: RBC Urine 1-5/HPF (0-5/HPF); WBC Urine 10-30/HPF (0-5/HPF)
[2019-11-04 08:13] LABS: Amorphous Sediment Urine 2+; Bacteria Urine Many (>30); Culture Indicated Urine Specimen Cultured; Triple Phosphate Crystal Urine Occasional
[2019-11-04 08:44] LABS: Reflexed Lactate in 2 Hours Y
[2019-11-04] MEDS: MEROPENEM 1 GM/50 ML PIGGYBACK IV (08:48)
[2019-11-04 09:15] LABS: COVID19 -Nasal RAPID Negative (Negative)
[2019-11-04 09:22] LABS: Lactate 2HR (Lactic Acid Rflx) 1.9 mmol/L (0.7-2.1)
[2019-11-04] MEDS: HYDROMORPHONE 0.5 MG INJ 1 MG IV (09:27)
[2019-11-04] MEDS: LORazepam 0.5 MG TABLET PO (11:40)
[2019-11-04] MEDS: SODIUM CHLORIDE 0.9% 1,000 ML 100 ML IV (11:41)
[2019-11-04 11:43] LABS: Magnesium 1.8 mg/dL (1.6-2.3)
[2019-11-04 11:45] LABS: Hemoglobin A1C% w Est Avg Glu 6.6 % (4.0-6.0)
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
[2019-11-04] MEDS: methocarbamoL 500 MG TABLET 1000 MG PO (13:41)
--- NOTE | 2019-11-04 14:31 | P.HP_ITS ---
History of Present Illness History of Present Illness Date Patient Seen: 11/04/19 Chief complaint: POSS PNEUMONIA, KIDNEY INFECTION Narrative: Melvi Gibbs is a 54-year-old female with a past medical history is significant for hypertension, hyperlipidemia, COPD, diabetes mellitus type 2, insulin using, severe protein calorie malnutrition, depression, anxiety, panic attacks, tobacco dependence, chronic pain syndrome and fibromyalgia with previous history of narcotic abuse, alcohol dependence in remission, and interstitial cystitis status post cystectomy and urostomy with recurrent UTIs who presented to the ED with purulent urine in urostomy, fever, chills, and bilateral flank pain. The patient reports that she began having pus out of her ostomy 1-2 days ago. She reports she changes her appliance every 4 days and she began having pus out of her ostomy after she changed her appliance. She has been having subjective fevers and chills but does not remember what her temperature was when she took it at home. She has a history of recurrent, innumerous UTI's with a variety of b acterial organisms that have become resistant to many common antibiotics. She also endorses cough with increased sputum production and chest pain due to coughing so hard. She denies shortness of breath. She reports ?kidney pain? and requests pain medication. When I informed the patient that I would give her medication for pain she specifically asked ?what medication are you going to give me?? My response was ?we will continue your usual pain medications including: Methocarbamol and gabapentin and I can additional provide acetaminophen, Toradol, and/or potentially tramadol. The patient responded that these are not pain medications and that she is done and is going to leave and started to pull at her telemetry and IV. Attempted to deescalate the situation and the patient seemed to calm down but then refused to speak to me and would not let me finish my exam. The patient continues to threaten intermittently to leave Against Medical Advice. ER course: Vital signs: Temperature 98.6, blood pressure 135/90, heart rate 111, respiratory rate 17, SpO2 98% on room air. Laboratory evaluation demonstrated mild leukocytosis with probable urinary tract infection otherwise laboratory evaluation was unremarkable. Chest x-ray did not demonstrate any acute cardiopulmonary process. Requested CT abdomen and pelvis with contrast due nature of recurrent and resistant and rare bacterial UTIs which was unremarkable and did not demonstrate a source of infection. PCP: Fadi Ko D.O. Patient History Medical History (Updated 11/04/19 @ 15:28 by Veronica Strauss DO) Anxiety (Chronic) Closed fracture of left humerus (Inactive) Endometriosis (Chronic) Fibromyalgia (Chronic) Heart palpitations (Chronic) History of asthma (Chronic) History of chronic hypertension (Chronic) History of COPD (Chronic) History of depression (Chronic) History of gastrointestinal ulcer (Chronic) History of kidney stones (Chronic) History of migraine (Chronic) History of panic attacks (Chronic) History of type 2 diabetes mellitus (Chronic) Hyperlipidemia (Acute) Interstitial cystitis (Chronic) UTI (urinary tract infection) (Chronic) Surgical History History of urostomy (Acute) S/P appendectomy (Resolved) Status post hysterectomy (Resolved) Status post left rotator cuff repair (Acute) Family & Social History Family History (Updated 11/04/19 @ 15:08 by Veronica Strauss DO) Mother Diabetes mellitus Lupus Social History: household members spouse Prior Living Arrangements House Safety & Behavioral: Feels Safe in Current Yes Environment Been Physically Hurt or No Threatened By a Person Suicidal Ideation Description None Suicide Plan Description No Plan Tobacco & Substance use: Tobacco type cigarettes Smoking Status Current every day smoker Smoking packs per day 1 alcohol intake current alcohol intake frequency holiday/special occasion Substance Use Type marijuana,former substance user Meds Home Medications and Allergies Home Medications Medication Instructions Recorded Confirmed Type albuterol sulfate [Proventil HFA] 2 puff INH Q4HP PRN #0 01/08/13 11/04/19 History hydroxyzine HCl 50 mg PO BID #0 01/08/13 11/04/19 History magnesium oxide 400 mg PO BEDTIME #0 tab 01/08/13 11/04/19 History duloxetine 60 mg PO DAILY #0 07/04/17 11/04/19 History gabapentin [Neurontin] 900 mg PO BID #0 07/04/17 11/04/19 History multivitamin [Multiple Vitamins] 1 tab PO DAILY #0 07/04/17 11/04/19 History zolpidem [Ambien] 10 mg PO HS PRN #0 07/04/17 11/04/19 History Probiotic 1 tab PO BID 09/26/17 11/04/19 History lisinopril 10 mg PO DAILY 09/26/17 11/04/19 History omeprazole 20 mg PO DAILY 09/26/17 11/04/19 History ondansetron 1 tab TRANSLINGUAL Q6H PRN 09/26/17 11/04/19 History potassium chloride 20 meq PO QPM 09/26/17 11/04/19 History vitamin E 1 cap PO DAILY 09/26/17 11/04/19 History lorazepam 0.5 mg PO BID PRN 05/30/18 11/04/19 History Humulin N NPH Insulin KwikPen 15 unit SUBCUT BID 05/17/19 11/04/19 History methocarbamol 1,000 mg PO Q6H PRN 05/17/19 11/04/19 History Vitamin D3 Complete 2,000 units PO DAILY 11/04/19 11/04/19 History quetiapine 100 mg PO BEDTIME 11/04/19 11/04/19 History Allergies Allergy/AdvReac Type Severity Reaction Status Date / Time mupirocin Allergy Unknown Verified 10/11/19 15:56 naproxen Allergy Unknown Verified 10/11/19 15:56 Penicillins Allergy Unknown SINCE Verified 10/11/19 15:56 CHILDHOOD droperidol AdvReac Unknown Verified 10/11/19 15:56 fenofibrate [FENOFIBRATE] AdvReac Unknown Verified 10/11/19 15:56 ibuprofen AdvReac Unknown NAUSEA Verified 10/11/19 15:56 metformin [METFORMIN] AdvReac Unknown Verified 10/11/19 15:56 metoclopramide AdvReac Unknown BECAME Verified 10/11/19 15:56 JITTERY AND ANXIOUS nitrofurantoin AdvReac Unknown NAUSEA Verified 10/11/19 15:56 Review of Systems Review of Systems Narrative: A 10 system comprehensive review of systems was conducted with the patient and found to be negative except as above in the History of Present Illness. Exam Vital Signs (past 8 hours): - 11/04/19 07:33 11/04/19 07:34 11/04/19 07:39 Temperature Pulse Rate 106 H 106 H Respiratory Rate Blood Pressure 168/100 H 171/89 H Pulse Oximetry 97 98 97 11/04/19 08:00 11/04/19 09:51 11/04/19 11:12 Temperature 97.3 F L Pulse Rate 96 H 89 93 H Respiratory Rate 17 14 20 Blood Pressure 143/80 H 140/72 132/80 Pulse Oximetry 98 97 97 Oxygen Delivery Method Room Air Oxygen Flow Rate 0 Narrative Exam Narrative: General: Older thin and emaciated appearing female in no acute distress, highly anxious and HEENT: Normocephalic, atraumatic. External ears without defect. Pupils equal, round, and reactive to light. Anicteric sclerae, moist conjunctivae, and no lid lag. Oropharynx free of erythema and cobble stoning with moist mucosa. Neck: Supple with full range of motion. No jugular venous distension. Abdomen: Urostomy in right abdomen with the yellow urine, Extremities: No clubbing, cyanosis, or edema. Neurological: Cranial nerves grossly intact. Psychiatric: Poor insight. Highly anxious. Emotionally labile. Irrational. Objective Labs Result Diagrams: 11/04/19 06:40 11/04/19 06:40 Labs: Laboratory Results - last 24 hr 11/04/19 11/04/19 11/04/19 06:40 06:40 06:40 WBC 15.9 H RBC 3.69 L Hgb 12.3 Hct 37.5 MCV 101.5 H MCH 33.4 MCHC 32.9 RDW 14.5 Plt Count 359 Neut % (Auto) 80.1 H Lymph % (Auto) 13.6 L [place] % (Auto) 5.4 Eos % (Auto) 0.3 L Baso % (Auto) 0.6 Neut # (Auto) 29163 H Lymph # (Auto) 2200 [place] # (Auto) 900 Eos # (Auto) 0 Baso # (Auto) 100 D-Dimer Sodium 137 Potassium 4.8 Chloride 107 Carbon Dioxide 16 L BUN 13 Creatinine 0.60 Estimated GFR > 60.0 BUN/Creatinine Ratio 21.7 Glucose 178 H Hemoglobin A1c Lactate Calcium 9.8 Magnesium Total Bilirubin 0.6 AST 30 ALT 18 Alkaline Phosphatase 112 C-Reactive Protein Total Protein 7.7 Albumin 4.3 Globulin 3.4 Albumin/Globulin Ratio 1.3 Procalcitonin < 0.05 Urine RBC Urine WBC Triple Phos Crystals Amorphous Sediment Urine Bacteria Ur Culture Indicated? COVID-19 PCR 11/04/19 11/04/19 11/04/19 06:40 06:40 06:40 WBC RBC Hgb Hct MCV MCH MCHC RDW Plt Count Neut % (Auto) Lymph % (Auto) [place]ock % (Auto) Eos % (Auto) Baso % (Auto) Neut # (Auto) Lymph # (Auto) [place] # (Auto) Eos # (Auto) Baso # (Auto) D-Dimer < 200 Sodium Potassium Chloride Carbon Dioxide BUN Creatinine Estimated GFR BUN/Creatinine Ratio Glucose Hemoglobin A1c Lactate 4.2 H* Calcium Magnesium Total Bilirubin AST ALT Alkaline Phosphatase C-Reactive Protein < 0.5 Total Protein Albumin Globulin Albumin/Globulin Ratio Procalcitonin Urine RBC Urine WBC Triple Phos Crystals Amorphous Sediment Urine Bacteria Ur Culture Indicated? COVID-19 PCR 11/04/19 11/04/19 11/04/19 07:00 07:10 08:56 WBC RBC Hgb Hct MCV MCH MCHC RDW Plt Count Neut % (Auto) Lymph % (Auto) [place] % (Auto) Eos % (Auto) Baso % (Auto) Neut # (Auto) Lymph # (Auto) [place] # (Auto) Eos # (Auto) Baso # (Auto) D-Dimer Sodium Potassium Chloride Carbon Dioxide BUN Creatinine Estimated GFR BUN/Creatinine Ratio Glucose Hemoglobin A1c Lactate 1.9 Calcium Magnesium Total Bilirubin AST ALT Alkaline Phosphatase C-Reactive Protein Total Protein Albumin Globulin Albumin/Globulin Ratio Procalcitonin Urine RBC 1-5/hpf Urine WBC 10-30/hpf H Triple Phos Crystals Occasional Amorphous Sediment 2+ Urine Bacteria Many (>30) H Ur Culture Indicated? Specimen cultured COVID-19 PCR Negative 11/04/19 11/04/19 08:56 08:56 WBC RBC Hgb Hct MCV MCH MCHC RDW Plt Count Neut % (Auto) Lymph % (Auto) [place] % (Auto) Eos % (Auto) Baso % (Auto) Neut # (Auto) Lymph # (Auto) [place] # (Auto) Eos # (Auto) Baso # (Auto) D-Dimer Sodium Potassium Chloride Carbon Dioxide BUN Creatinine Estimated GFR BUN/Creatinine Ratio Glucose Hemoglobin A1c 6.6 H Lactate Calcium Magnesium 1.8 Total Bilirubin AST ALT Alkaline Phosphatase C-Reactive Protein Total Protein Albumin Globulin Albumin/Globulin Ratio Procalcitonin Urine RBC Urine WBC Triple Phos Crystals Amorphous Sediment Urine Bacteria Ur Culture Indicated? COVID-19 PCR Assessment & Plan Assessment & Plan narrative: Melvi Gibbs is a 54-year-old female with a past medical history is significant for hypertension, hyperlipidemia, COPD, diabetes mellitus type 2, insulin using, severe protein calorie malnutrition, depression, anxiety, panic attacks, tobacco dependence, chronic pain syndrome and fibromyalgia with previous history of narcotic abuse, alcohol dependence in remission, and interstitial cystitis status post cystectomy and urostomy with recurrent UTIs who presented to the ED with purulent urine in urostomy, fever, chills, and bilateral flank pain. 1. Acute recurrent urinary tract infection in setting of interstitial cystitis status post cystectomy and urostomy, present on admission. Active. -Patient presented with purulence urine in urostomy, reported fever, chills, and bilateral flank pain. The patient has had innumerable recurrent urinary tract infections with highly resistant and rare bacterial UTIs. Patient met SIRS criteria with tachycardia, lactic acidosis and leukocytosis but does not meet sepsis criteria as she had no end-organ dysfunction. -CT abdomen and pelvis with contrast did not demonstrate any acute intra- abdominal source of infection. -Urinalysis appears grossly infected with urine culture pending. -Received Levaquin 750 mg x 1 and meropenem 1 g IV x1 due to resistant and rare bacterial UTIs. Continue meropenem 1 g every 8 hours pending urinary culture identification and sensitivities. 2. COPD, chronic, present on admission. -Patient on sources cough with increased sputum production. Do not believe this represents a COPD exacerbation as patient is afebrile, chest x-ray does not demonstrate any cardiopulmonary process, no dyspnea, wheezing or hypoxemia. -Continue albuterol inhaler 2 puffs every 4 hours as needed for shortness of breath or wheezing. 3. Hypertension, chronic, present on admission. Stable. -Continue home lisinopril 10 mg daily. 4. Diabetes mellitus type 2, insulin using, chronic, present on admission. Stable. -Hemoglobin A1c 6.6% indicative excellent glycemic control. -Patient reports she takes NPH 10 units in the morning on an as-needed basis based on her blood glucose and have held this medication. Continue to monitor blood glucose and will place patient on basal insulin if needed. -Continue [facility] blood glucose checks and low-dose correctional scale insulin. -Continue carbohydrate consistent diet. 5. Chronic pain and fibromyalgia with history of opiate dependence in remission, present on admission. Stable. -Patient request narcotics for which there are no indication. Patient refuses for further medical discussion with myself and is threatening to leave Against Medical Advice. -Continue home methocarbamol 1000 mg every 6 hours as needed for muscle spasm or pain and gabapentin 900 mg twice daily. 6. Depression, anxiety and panic attacks, chronic, present on admission. Stable. -continue duloxetine 60 mg daily, hydroxyzine 50 mg twice daily, continue lorazepam 0.5 mg twice daily as needed for anxiety, and quetiapine 100 mg daily at bedtime. 7. Insomnia, chronic, present on admission. Stable. -Continue zolpidem 10 mg daily at bedtime. Code status: DNR/DNI, surrogate decision makers patient's spouse VTE prophylaxis: Enoxaparin Patient is admitted under inpatient status with expected length of stay greater than 2 midnights due to severity of presenting symptoms, risk of adverse event, and complexity of treatment plan.
--- NOTE | 2019-11-04 14:31 | PC.NURSE ---
Skin assessment note: Pt refused full skin assessment. Pt has several spots on legs and arms that appear to be scabs from picked wounds. Several stages of healing noted in wounds. Pt continues to pick wounds while in hospital. Pt also has urostomy. Stoma in good condition and pink/intact. Small amount of white exudate noted in bag.
--- NOTE | 2019-11-04 15:46 | PC.NURSE ---
1645- Patient has left against medical advice. Paperwork was signed by patient and her was present at that time. Dr. Strauss is aware. Patient stable at time of discharge.
--- NOTE | 2019-11-04 15:52 | PC.NURSE ---
1550- Patient has left Against Medical Advice. Patient signed paperwork. Dr. Strauss is aware.
== END 2019-11-04 15:49 | disposition left against medical advice (07) | DRG 698 ==
LOC: ED 07:14 → AC 07:30 → ICU 11-05 16:28
PROVIDERS: Admitting Provider Internal Medicine; Emergency Provider Emergency Medicine; PCP Family Medicine; Referring Provider Emergency Medicine; Visit Provider Internal Medicine
DX: T83.518A Infection and inflammatory reaction due to other urinary catheter, initial encounter (principal); E43 Unspecified severe protein-calorie malnutrition; N39.0 Urinary tract infection, site not specified; Z93.6 Other artificial openings of urinary tract status; E11.9 Type 2 diabetes mellitus without complications; E78.5 Hyperlipidemia, unspecified; J44.9 Chronic obstructive pulmonary disease, unspecified; Z79.4 Long term (current) use of insulin; F32.9 Major depressive disorder, single episode, unspecified; F41.0 Panic disorder [episodic paroxysmal anxiety]; M79.7 Fibromyalgia; G89.4 Chronic pain syndrome; F17.210 Nicotine dependence, cigarettes, uncomplicated; G47.00 Insomnia, unspecified; Z66 Do not resuscitate
CPT/HCPCS: 36415; 71045; 74177; 80053; 81003; 81015; 82962; 83036; 83605; 83735; 84145; 85025; 85379; 86140; 87040; 87077; 87086; 87186; 87635; 96365; 96366; 96367; 96375; 96376; 99285; A9270; J1170; J1885; J1956; Q9967

== ENCOUNTER 2019-12-08 10:54 | Inpatient (IN) | payer OTHER, SELFPAY ==
[2019-11-04 07:50] VITALS: BMI 16.1
[2019-12-08] VITALS (14 sets, daily range): BP systolic 142–162; BP diastolic 78–101; PULSE 97–105; RESP 16–21; TEMP 36.6–37.6; O2SAT 96–100; BMI 16.6
--- NOTE | 2019-12-08 11:27 | PC.NURSE ---
Patient has come in with right flank pain and yellow, white drainage in the urostomy pouch. She also complains of coughing for the last 2 days. She is trying to quit smoking and reports that she has not been drinking since her last visit to the ER.
--- NOTE | 2019-12-08 11:28 | DI.RAD.S_ITS ---
PROCEDURE: XR CHEST 2V INDICATIONS: cough, shortness of breath TECHNIQUE: 2 views of the chest were acquired. COMPARISON: [facility], CR, XR CHEST 1V, 11/04/2019, 6:23. FINDINGS: Surgical changes and devices: None. Lungs and pleura: Lungs are clear. No pleural effusions or pneumothorax. Mediastinum: Mediastinal contours are normal. Heart size is normal. Bones and chest wall: No suspicious bony abnormalities. Soft tissues appear unremarkable. IMPRESSION: No evidence acute pulmonary process. Dictated by: Ayush Partida M.D. on 12/08/2019 at 12:04 Approved by: Ayush Partida M.D. on 12/08/2019 at 12:05
[2019-12-08] MEDS: ALBUTEROL HFA 200 PUFF/18 GM INH (COVID POS/VENT PTS) INH (11:48)
--- NOTE | 2019-12-08 11:53 | ED_ITS ---
HPI - SOB/Dyspnea <Xuan Malikmer, [employer]ER-BC - Last Filed: 12/08/19 16:03> General Chief Complaint: Urogenital-Female Stated Complaint: KIDNEY PAIN, FEVER, CHILLS Time Seen by Provider: 12/08/19 11:01 Source: patient Mode of arrival: Ambulatory Limitations: no limitations History of Present Illness HPI Narrative: The patient is a 54-year-old female current everyday smoker who is well known to this department with a complicated medical history including urostomy, urinary tract infection, pyelonephritis, diabetes, chest pain and anxiety who presents with multiple complaints including flank pain for 2 days, right side worse than left,. She does have a urostomy, states that she saw some white pus coming out of it yesterday. She also complains of a productive cough, shortness of breath, worsening asthma and chest pain when coughing. She states this has been going on for about 4 days as well. 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 The patient states that she is trying to quit smoking, is down to 2 cigarettes a day. She is also not drinking as much alcohol as she used to, is living with her daughter and granddaughter as well. Her chest pain is substernal, but only when she is coughing. She complains of low-grade fevers, chills and muscle aches. She states that she last month, was admitted, and then she left against medical advice. Her most recent urine culture on 11/03, shows Klebsiella. She complains of sore throat, worsened by the environmental smoke exposure Related Data Home Medications Medication Instructions Recorded Confirmed albuterol sulfate [Proventil HFA] 2 puff INH Q4HP PRN #0 01/08/13 12/08/19 hydroxyzine HCl 50 mg PO BID #0 01/08/13 12/08/19 duloxetine 60 mg PO DAILY #0 07/04/17 12/08/19 gabapentin [Neurontin] 900 mg PO BID #0 07/04/17 12/08/19 multivitamin [Multiple Vitamins] 1 tab PO DAILY #0 07/04/17 12/08/19 zolpidem [Ambien] 10 mg PO HS PRN #0 07/04/17 12/08/19 Probiotic 1 tab PO DAILY 09/26/17 12/08/19 lisinopril 10 mg PO DAILY 09/26/17 12/08/19 omeprazole 20 mg PO DAILY 09/26/17 12/08/19 ondansetron 1 tab TRANSLINGUAL Q6H PRN 09/26/17 12/08/19 potassium chloride 20 meq PO DAILY 09/26/17 12/08/19 vitamin E 1 cap PO DAILY 09/26/17 12/08/19 lorazepam 0.5 mg PO DAILY 05/30/18 12/08/19 Humulin N NPH Insulin KwikPen 10 unit SUBCUT BID 05/17/19 12/08/19 methocarbamol 1,000 mg PO QID 05/17/19 12/08/19 Vitamin D3 Complete See Rx Instructions .ROUTE .COMPLEX 11/04/19 12/08/19 quetiapine 200 mg PO BEDTIME 11/04/19 12/08/19 magnesium glycinate 800 mg PO QPM 12/08/19 12/08/19 melatonin 20 mg PO BEDTIME 12/08/19 12/08/19 Allergies Allergy/AdvReac Type Severity Reaction Status Date / Time mupirocin Allergy Unknown Verified 10/11/19 15:56 naproxen Allergy Unknown Verified 10/11/19 15:56 Penicillins Allergy Unknown SINCE Verified 10/11/19 15:56 CHILDHOOD droperidol AdvReac Unknown Verified 10/11/19 15:56 fenofibrate [FENOFIBRATE] AdvReac Unknown Verified 10/11/19 15:56 ibuprofen AdvReac Unknown NAUSEA Verified 10/11/19 15:56 metformin [METFORMIN] AdvReac Unknown Verified 10/11/19 15:56 metoclopramide AdvReac Unknown BECAME Verified 10/11/19 15:56 JITTERY AND ANXIOUS nitrofurantoin AdvReac Unknown NAUSEA Verified 10/11/19 15:56 Review of Systems <Xuan Herrera, WM-BC - Last Filed: 12/08/19 16:03> Review of Systems Narrative: GENERAL: See HPI HEENT: See HPI RESPIRATORY: See HPI CARDIOVASCULAR: Denies chest pain, palpitations, orthopnea, edema, GASTROINTESTINAL: Denies nausea, vomiting, abdominal pain, diarrhea, constipation, melena. : See HPI. MUSCULOSKELETAL: denies weakness, joint pain, or bony pain SKIN: Denies rash, skin lesions, or other NEUROLOGIC: Denies weakness, headache, numbness, change in speech, confusion, seizures, incoordination. PSYCHIATRIC: No concerning psychosocial issues. 12 point review of systems is negative except for those stated above Patient History <CAMILO Moss - Last Filed: 12/08/19 16:03> Medical History (Updated 12/08/19 @ 15:53 by CAMILO Moss) Anxiety (Chronic) Closed fracture of left humerus (Inactive) Endometriosis (Chronic) Fibromyalgia (Chronic) Heart palpitations (Chronic) History of asthma (Chronic) History of chronic hypertension (Chronic) History of COPD (Chronic) History of depression (Chronic) History of gastrointestinal ulcer (Chronic) History of kidney stones (Chronic) History of migraine (Chronic) History of panic attacks (Chronic) History of type 2 diabetes mellitus (Chronic) Hyperlipidemia (Acute) Interstitial cystitis (Chronic) UTI (urinary tract infection) (Chronic) Surgical History History of urostomy (Acute) S/P appendectomy (Resolved) Status post hysterectomy (Resolved) Status post left rotator cuff repair (Acute) Family History (Updated 11/04/19 @ 15:08 by Veronica Strauss DO) Mother Diabetes mellitus Lupus Social History household members: spouse Smoking Status: Current every day smoker alcohol intake: current Smoking Status: Current every day smoker alcohol intake frequency: holidays/special occasions only Substance Use Type: former substance user and marijuana Exam <CAMILO Moss - Last Filed: 12/08/19 16:03> Narrative Exam Narrative: GENERAL: This is a well-nourished, well-developed patient, in no acute distress HEAD: Atraumatic. Normocephalic. No temporal or scalp tenderness. EYES: Pupils equal round and reactive. Extraocular motions intact. No scleral icterus. No injection or drainage. ENT: Nose without bleeding, purulent drainage or septal hematoma. Throat without erythema, tonsillar hypertrophy or exudate. Uvula midline. Airway patent. NECK: Trachea midline. No JVD or lymphadenopathy. Supple, nontender, no meni ngeal signs. CARDIOVASCULAR: Regular rate and rhythm RESPIRATORY: Coarse bilaterally to auscultation. Breath sounds equal bilaterally. No wheezes, rales, or rhonchi. No cough on exam. No increased respiratory effort. Speaking full sentences. GASTROINTESTINAL: Abdomen soft, diffusely tender, nondistended. No hepato- splenomegaly, or palpable masses. No guarding. Urostomy bag in place. Active b owel sounds all 4 quadrants. EXTREMITIES: No clubbing, cyanosis, or edema. No joint tenderness, effusion, or edema noted. BACK: Nontender without deformity or crepitance. CVA tenderness bilaterally, right worse than left. NEURO: AOx3. SKIN: Multiple scabs noted on visible skin Initial Vital Signs Initial Vital Signs: Vital Signs Temperature 99.7 F H 12/08/19 11:19 Pulse Rate 105 H 12/08/19 11:19 Respiratory Rate 12/08/19 11:19 Blood Pressure 162/101 H 12/08/19 11:19 Pulse Oximetry 100 12/08/19 11:19 <Lyle Roman DO - Last Filed: 12/08/19 17:32> Initial Vital Signs Initial Vital Signs: Vital Signs Temperature 99.7 F H 12/08/19 11:19 Pulse Rate 105 H 12/08/19 11:19 Respiratory Rate 12/08/19 11:19 Blood Pressure 162/101 H 12/08/19 11:19 Pulse Oximetry 100 12/08/19 11:19 Scores <CAMILO Moss - Last Filed: 12/08/19 16:03> GCS Wolbach coma scale eye opening: Spontaneous Eva coma scale verbal response: Orientated Eva coma scale motor response: Obey commands Wolbach coma scale total score: 15 Course <CAMILO Moss - Last Filed: 12/08/19 16:03> Orders Ordered: ED Orders 12/08/19 11:27 Consult to Respiratory Therapy Evaluate & Treat Procalcitonin Stat EKG-12 Lead Stat 12/08/19 11:28 XR chest 2V Stat 12/08/19 11:40 COVID19 -ED/INPAT/OR/L&D Stat 12/08/19 11:50 Urinalysis and Microscopic Stat Urine Culture Stat 12/08/19 12:35 Amylase Stat Complete Blood Count AUTO DIFF Stat Comprehensive Metabolic Panel Stat Lactate (Lactic Acid) Stat Lipase Stat Magnesium Stat NT-proBNP (BNP-Adult 18+) Stat Troponin & CK Cardiac Panel Stat 12/08/19 13:40 Blood Culture Stat Partial Thromboplastin Time Stat Prothrombin Time INR Stat Acetaminophen (Tylenol) 650 mg PO Q6HR PRN PRN Reason: Fever/Mild Pain (1-3) Hydrocodone Bitart/Acetaminophen ([place] 5/325) 1 tab PO Q4HR PRN PRN Reason: Pain, Moderate (4-6) Albuterol (Ventolin Hfa (Vent/Covid R/O)) 2 puff INH RTQ4HR PRN PRN Reason: Shortness Of Breath Bisacodyl (Dulcolax) 10 mg [place] DAILY PRN PRN Reason: Constipation Calcium Carbonate (Tums) 1,000 mg PO Q4HR PRN PRN Reason: Dyspepsia Dextrose (D50w) 25 gm IV PRN PRN; Protocol PRN Reason: Hypoglycemia Docusate Sodium (Colace) 100 mg PO BID [facility] Duloxetine HCl (Cymbalta) 60 mg PO DAILY [facility] Enoxaparin Sodium (Lovenox) 40 mg SUBCUT DAILY [facility] Gabapentin (Neurontin) 900 mg PO BID [facility] Hydromorphone HCl (Dilaudid) 0.5 mg IV Q6HR PRN PRN Reason: Pain, Moderate (4-6) Hydroxyzine Pamoate (Vistaril) 50 mg PO BID [facility] Dextrose/Sodium Chloride (Dextrose 5%-0.45% Ns) 1,000 mls @ 100 mls/hr IV CONT [facility] Ceftriaxone Sodium/Dextrose (Rocephin) 2 gm in 50 mls @ 100 mls/hr IV 1800 [facility] Insulin Aspart (Novolog Flexpen) 0 unit SUBCUT ACHS [facility]; Protocol Insulin Human NPH (Humulin N) 10 unit SUBCUT BID [facility] Lactobacillus Acidophilus (Bacid Caplet) 1 each PO DAILY [facility] Lisinopril (Zestril) 10 mg PO DAILY [facility] Lorazepam (Ativan) 0.5 mg PO DAILY [facility] Melatonin (Melatonin) 18 mg PO BEDTIME [facility] Methocarbamol (Robaxin) 1,000 mg PO QID [facility] Multivitamins (Tab-A-Joellen) 1 tab PO DAILY [facility] Naloxone HCl (Narcan) 0.2 mg IV Q2MIN PRN PRN Reason: Opiate Reversal Nf - Magnesium (Glycinate 800 Mg) 800 mg PO QPM [facility] Ondansetron HCl (Zofran) 4 mg IV Q8HR PRN PRN Reason: Nausea And Vomiting Pantoprazole Sodium (Protonix) 20 mg PO 0600 [facility] Potassium Chloride (Klor-Con M20) 20 meq PO DAILY [facility] Quetiapine Fumarate (Seroquel) 200 mg PO BEDTIME [facility] Ropinirole HCl (Requip) 0.25 mg PO BEDTIME [facility] Vitamin E (Vitamin E) 400 unit PO DAILY [facility] Zolpidem Tartrate (Ambien) 10 mg PO BEDTIME PRN PRN Reason: Sleep Discontinued Medications Albuterol (Ventolin Hfa (Vent/Covid R/O)) 2 puff INH NOW ONE Stop: 12/08/19 11:48 Last Admin: 12/08/19 11:48 Dose: 2 puff Documented by: SEVERIANO Albuterol/Ipratropium (Duoneb) 3 ml INH NOW ONE Stop: 12/08/19 11:28 Last Admin: 12/08/19 11:50 Dose: Not Given Documented by: SEVERIANO Hydromorphone HCl (Dilaudid) 1 mg IV NOW ONE Stop: 12/08/19 11:53 Last Admin: 12/08/19 12:42 Dose: Not Given Documented by: ANIBAL Hydromorphone HCl (Dilaudid) 1 mg IV NOW ONE Stop: 12/08/19 14:10 Last Admin: 12/08/19 14:20 Dose: 1 mg Documented by: ANIBAL Sodium Chloride (Normal Saline 0.9%) 1,000 mls @ 1,000 mls/hr IV BOLUS ONE Stop: 12/08/19 12:51 Last Infusion: 12/08/19 13:52 Dose: 0 mls/hr Documented by: Admin: 12/08/19 12:43 Dose: 1,000 mls/hr Documented by: ANIBAL Sodium Chloride (Normal Saline 0.9%) 1,000 mls @ 1,000 mls/hr IV BOLUS ONE Stop: 12/08/19 14:49 Last Infusion: 12/08/19 14:48 Dose: 0 mls/hr Documented by: Admin: 12/08/19 13:56 Dose: 1,000 mls/hr Documented by: ANIBAL Meropenem (Merrem) 1 gm in 50 mls @ 100 mls/hr IV NOW ONE Stop: 12/08/19 14:37 Last Infusion: 12/08/19 14:56 Dose: 0 mls/hr Documented by: Admin: 12/08/19 14:19 Dose: 100 mls/hr Documented by: ANIBAL Vital Signs Vital signs: Vital Signs - 8 hr 12/08/19 11:19 12/08/19 11:30 12/08/19 11:51 Temperature 99.7 F H 99.7 F H Pulse Rate 105 H 103 H 104 H Respiratory Rate 20 20 18 Blood Pressure 162/101 H 153/81 H Pulse Oximetry 100 100 99 12/08/19 12:00 12/08/19 13:15 12/08/19 13:45 Temperature Pulse Rate 103 H 102 H 101 H Respiratory Rate 18 18 18 Blood Pressure 155/86 H 162/89 H 162/86 H Pulse Oximetry 100 100 100 <Lyle Rmoan DO - Last Filed: 12/08/19 17:32> Orders Ordered: ED Orders 12/08/19 11:27 Consult to Respiratory Therapy Evaluate & Treat Procalcitonin Stat EKG-12 Lead Stat 12/08/19 11:28 XR chest 2V Stat 12/08/19 11:40 COVID19 -ED/INPAT/OR/L&D Stat 12/08/19 11:50 Urinalysis and Microscopic Stat Urine Culture Stat 12/08/19 12:35 Amylase Stat Complete Blood Count AUTO DIFF Stat Comprehensive Metabolic Panel Stat Lactate (Lactic Acid) Stat Lipase Stat Magnesium Stat NT-proBNP (BNP-Adult 18+) Stat Troponin & CK Cardiac Panel Stat 12/08/19 13:40 Blood Culture Stat Partial Thromboplastin Time Stat Prothrombin Time INR Stat Acetaminophen (Tylenol) 650 mg PO Q6HR PRN PRN Reason: Fever/Mild Pain (1-3) Hydrocodone Bitart/Acetaminophen ([place] 5/325) 1 tab PO Q4HR PRN PRN Reason: Pain, Moderate (4-6) Albuterol (Ventolin Hfa (Vent/Covid R/O)) 2 puff INH RTQ4HR PRN PRN Reason: Shortness Of Breath Bisacodyl (Dulcolax) 10 mg [place] DAILY PRN PRN Reason: Constipation Calcium Carbonate (Tums) 1,000 mg PO Q4HR PRN PRN Reason: Dyspepsia Dextrose (D50w) 25 gm IV PRN PRN; Protocol PRN Reason: Hypoglycemia Docusate Sodium (Colace) 100 mg PO BID [facility] Duloxetine HCl (Cymbalta) 60 mg PO DAILY [facility] Enoxaparin Sodium (Lovenox) 40 mg SUBCUT DAILY [facility] Gabapentin (Neurontin) 900 mg PO BID [facility] Hydromorphone HCl (Dilaudid) 0.5 mg IV Q6HR PRN PRN Reason: Pain, Moderate (4-6) Hydroxyzine Pamoate (Vistaril) 50 mg PO BID [facility] Dextrose/Sodium Chloride (Dextrose 5%-0.45% Ns) 1,000 mls @ 100 mls/hr IV CONT [facility] Ceftriaxone Sodium/Dextrose (Rocephin) 2 gm in 50 mls @ 100 mls/hr IV 1800 [facility] Insulin Aspart (Novolog Flexpen) 0 unit SUBCUT ACHS [facility]; Protocol Insulin Human NPH (Humulin N) 10 unit SUBCUT BID [facility] Lactobacillus Acidophilus (Bacid Caplet) 1 each PO DAILY [facility] Lisinopril (Zestril) 10 mg PO DAILY [facility] Lorazepam (Ativan) 0.5 mg PO DAILY [facility] Melatonin (Melatonin) 18 mg PO BEDTIME [facility] Methocarbamol (Robaxin) 1,000 mg PO QID [facility] Multivitamins (Tab-A-Joellen) 1 tab PO DAILY [facility] Naloxone HCl (Narcan) 0.2 mg IV Q2MIN PRN PRN Reason: Opiate Reversal Nf - Magnesium (Glycinate 800 Mg) 800 mg PO QPM [facility] Ondansetron HCl (Zofran) 4 mg IV Q8HR PRN PRN Reason: Nausea And Vomiting Pantoprazole Sodium (Protonix) 20 mg PO 0600 [facility] Potassium Chloride (Klor-Con M20) 20 meq PO DAILY [facility] Quetiapine Fumarate (Seroquel) 200 mg PO BEDTIME [facility] Ropinirole HCl (Requip) 0.25 mg PO BEDTIME [facility] Vitamin E (Vitamin E) 400 unit PO DAILY [facility] Zolpidem Tartrate (Ambien) 10 mg PO BEDTIME PRN PRN Reason: Sleep Discontinued Medications Albuterol (Ventolin Hfa (Vent/Covid R/O)) 2 puff INH NOW ONE Stop: 12/08/19 11:48 Last Admin: 12/08/19 11:48 Dose: 2 puff Documented by: SEVERIANO Albuterol/Ipratropium (Duoneb) 3 ml INH NOW ONE Stop: 12/08/19 11:28 Last Admin: 12/08/19 11:50 Dose: Not Given Documented by: SEVERIANO Hydromorphone HCl (Dilaudid) 1 mg IV NOW ONE Stop: 12/08/19 11:53 Last Admin: 12/08/19 12:42 Dose: Not Given Documented by: ANIBAL Hydromorphone HCl (Dilaudid) 1 mg IV NOW ONE Stop: 12/08/19 14:10 Last Admin: 12/08/19 14:20 Dose: 1 mg Documented by: ANIBAL Sodium Chloride (Normal Saline 0.9%) 1,000 mls @ 1,000 mls/hr IV BOLUS ONE Stop: 12/08/19 12:51 Last Infusion: 12/08/19 13:52 Dose: 0 mls/hr Documented by: Admin: 12/08/19 12:43 Dose: 1,000 mls/hr Documented by: ANIBAL Sodium Chloride (Normal Saline 0.9%) 1,000 mls @ 1,000 mls/hr IV BOLUS ONE Stop: 12/08/19 14:49 Last Infusion: 12/08/19 14:48 Dose: 0 mls/hr Documented by: Admin: 12/08/19 13:56 Dose: 1,000 mls/hr Documented by: ANIBAL Meropenem (Merrem) 1 gm in 50 mls @ 100 mls/hr IV NOW ONE Stop: 12/08/19 14:37 Last Infusion: 12/08/19 14:56 Dose: 0 mls/hr Documented by: Admin: 12/08/19 14:19 Dose: 100 mls/hr Documented by: ANIBAL Vital Signs Vital signs: Vital Signs - 8 hr 12/08/19 11:19 12/08/19 11:30 12/08/19 11:51 Temperature 99.7 F H 99.7 F H Pulse Rate 105 H 103 H 104 H Respiratory Rate 20 20 18 Blood Pressure 162/101 H 153/81 H Pulse Oximetry 100 100 99 12/08/19 12:00 12/08/19 13:15 12/08/19 13:45 Temperature Pulse Rate 103 H 102 H 101 H Respiratory Rate 18 18 18 Blood Pressure 155/86 H 162/89 H 162/86 H Pulse Oximetry 100 100 100 MDM - SOB/Dyspnea <Xuan HerreraALBERTOP-BC - Last Filed: 12/08/19 16:03> Lab Data Result diagrams: 12/08/19 12:35 12/08/19 12:35 Labs: Lab Results 12/08/19 12/08/19 12/08/19 Range/Units 11:27 11:40 11:50 WBC (4.5-11.0) X10^3/uL RBC (4.0-5.2) X10^6/uL Hgb (12.0-16.0) g/dL Hct (36-46) % MCV (80-100) fL MCH (26-34) PG MCHC (30-36) % RDW (11.6-14.8) % Plt Count (150-400) X10^3/uL Neut % (Auto) (50-75) % Lymph % (Auto) (25-40) % [place] % (Auto) (3-14) % Eos % (Auto) (2-4) % Baso % (Auto) (0-2) % Neut # (Auto) (8975-9572) /uL Lymph # (Auto) (2725-0084) /uL [place] # (Auto) (0-900) /uL Eos # (Auto) (0-450) /uL Baso # (Auto) (0-100) /uL PT (10.1-12.7) SECONDS INR (0.9-1.3) APTT (26.4-36.2) SECONDS Sodium (137-145) mmol/L Potassium (3.4-5.1) mmol/L Chloride (98-107) mmol/L Carbon Dioxide (22-32) mmol/L BUN (7-17) mg/dL Creatinine (0.52-1.04) mg/dL Estimated GFR (>60) mL/min BUN/Creatinine Ratio (6-22) Glucose (70-100) mg/dL Lactate (0.7-2.1) mmol/L Calcium (8.4-10.2) mg/dL Magnesium (1.6-2.3) mg/dL Total Bilirubin (0.2-1.3) mg/dL AST (14-36) IU/L ALT (<35) IU/L Alkaline Phosphatase (38-126) U/L Total Creatine Kinase (30-135) U/L CK-MB (CK-2) CK-MB (CK-2) Rel Index Troponin I (0.01-0.034) ng/mL NT-Pro-B Natriuret Pep (<125) pg/mL Total Protein (6.3-8.2) g/dL Albumin (3.5-5.0) g/dL Globulin (1.7-4.1) g/dL Albumin/Globulin Ratio (1.0-2.8) Amylase (30-110) U/L Lipase (23-300) U/L Procalcitonin < 0.05 (<0.5) ng/mL Urine Color Yellow Urine Appearance Sl cloudy Urine pH 7.0 (4.5-8.0) Ur Specific [place] 1.015 (1.000-1.035) Urine Protein Trace H (Negative) Urine Glucose (UA) 1+ H (Negative) g/dL Urine Ketones Negative (NEGATIVE) Urine Occult Blood Trace-intact (Negative) Urine Nitrate Positive H (Negative) Urine Bilirubin Negative (NEGATIVE) Urine Urobilinogen 0.2 (0.2) E.U./dL Ur Leukocyte Esterase Trace H (NEGATIVE) Urine RBC None seen (0-5/HPF) Urine WBC 5-10/hpf H (0-5/HPF) Ur Squamous Epith Cells 0-1 /hpf (0-5/HPF) Urine Bacteria Many (>30) H (None) Ur Culture Indicated? Specimen cultured COVID-19 PCR Negative (Negative) 12/08/19 12/08/19 12/08/19 Range/Units 12:35 12:35 12:35 WBC 12.0 H (4.5-11.0) X10^3/uL RBC 3.51 L (4.0-5.2) X10^6/uL Hgb 11.9 L (12.0-16.0) g/dL Hct 35.2 L (36-46) % MCV 100.2 H (80-100) fL MCH 33.9 (26-34) PG MCHC 33.9 (30-36) % RDW 13.5 (11.6-14.8) % Plt Count 287 (150-400) X10^3/uL Neut % (Auto) 75.7 H (50-75) % Lymph % (Auto) 17.4 L (25-40) % [place] % (Auto) 5.9 (3-14) % Eos % (Auto) 0.2 L (2-4) % Baso % (Auto) 0.8 (0-2) % Neut # (Auto) 9100 H (5675-1584) /uL Lymph # (Auto) 2100 (2309-7641) /uL [place] # (Auto) 700 (0-900) /uL Eos # (Auto) 0 (0-450) /uL Baso # (Auto) 100 (0-100) /uL PT (10.1-12.7) SECONDS INR (0.9-1.3) APTT (26.4-36.2) SECONDS Sodium 130 L (137-145) mmol/L Potassium 5.9 H (3.4-5.1) mmol/L Chloride 102 (98-107) mmol/L Carbon Dioxide 21 L (22-32) mmol/L BUN 15 (7-17) mg/dL Creatinine 0.53 (0.52-1.04) mg/dL Estimated GFR > 60.0 (>60) mL/min BUN/Creatinine Ratio 28.3 H (6-22) Glucose 260 H (70-100) mg/dL Lactate 3.0 H (0.7-2.1) mmol/L Calcium 9.4 (8.4-10.2) mg/dL Magnesium 2.1 (1.6-2.3) mg/dL Total Bilirubin 0.6 (0.2-1.3) mg/dL AST 39 H (14-36) IU/L ALT 18 (<35) IU/L Alkaline Phosphatase 125 (38-126) U/L Total Creatine Kinase 42 (30-135) U/L CK-MB (CK-2) TNP CK-MB (CK-2) Rel Index TNP Troponin I < 0.012 (0.01-0.034) ng/mL NT-Pro-B Natriuret Pep 194 H (<125) pg/mL Total Protein 7.3 (6.3-8.2) g/dL Albumin 4.1 (3.5-5.0) g/dL Globulin 3.2 (1.7-4.1) g/dL Albumin/Globulin Ratio 1.3 (1.0-2.8) Amylase 90 (30-110) U/L Lipase 19 L (23-300) U/L Procalcitonin (<0.5) ng/mL Urine Color Urine Appearance Urine pH (4.5-8.0) Ur Specific [place] (1.000-1.035) Urine Protein (Negative) Urine Glucose (UA) (Negative) g/dL Urine Ketones (NEGATIVE) Urine Occult Blood (Negative) Urine Nitrate (Negative) Urine Bilirubin (NEGATIVE) Urine Urobilinogen (0.2) E.U./dL Ur Leukocyte Esterase (NEGATIVE) Urine RBC (0-5/HPF) Urine WBC (0-5/HPF) Ur Squamous Epith Cells (0-5/HPF) Urine Bacteria (None) Ur Culture Indicated? COVID-19 PCR (Negative) 12/08/19 Range/Units 13:40 WBC (4.5-11.0) X10^3/uL RBC (4.0-5.2) X10^6/uL Hgb (12.0-16.0) g/dL Hct (36-46) % MCV (80-100) fL MCH (26-34) PG MCHC (30-36) % RDW (11.6-14.8) % Plt Count (150-400) X10^3/uL Neut % (Auto) (50-75) % Lymph % (Auto) (25-40) % [place] % (Auto) (3-14) % Eos % (Auto) (2-4) % Baso % (Auto) (0-2) % Neut # (Auto) (5605-5121) /uL Lymph # (Auto) (9143-0283) /uL [place] # (Auto) (0-900) /uL Eos # (Auto) (0-450) /uL Baso # (Auto) (0-100) /uL PT 10.6 (10.1-12.7) SECONDS INR 0.9 (0.9-1.3) APTT 33 D (26.4-36.2) SECONDS Sodium (137-145) mmol/L Potassium (3.4-5.1) mmol/L Chloride (98-107) mmol/L Carbon Dioxide (22-32) mmol/L BUN (7-17) mg/dL Creatinine (0.52-1.04) mg/dL Estimated GFR (>60) mL/min BUN/Creatinine Ratio (6-22) Glucose (70-100) mg/dL Lactate (0.7-2.1) mmol/L Calcium (8.4-10.2) mg/dL Magnesium (1.6-2.3) mg/dL Total Bilirubin (0.2-1.3) mg/dL AST (14-36) IU/L ALT (<35) IU/L Alkaline Phosphatase (38-126) U/L Total Creatine Kinase (30-135) U/L CK-MB (CK-2) CK-MB (CK-2) Rel Index Troponin I (0.01-0.034) ng/mL NT-Pro-B Natriuret Pep (<125) pg/mL Total Protein (6.3-8.2) g/dL Albumin (3.5-5.0) g/dL Globulin (1.7-4.1) g/dL Albumin/Globulin Ratio (1.0-2.8) Amylase (30-110) U/L Lipase (23-300) U/L Procalcitonin (<0.5) ng/mL Urine Color Urine Appearance Urine pH (4.5-8.0) Ur Specific [place] (1.000-1.035) Urine Protein (Negative) Urine Glucose (UA) (Negative) g/dL Urine Ketones (NEGATIVE) Urine Occult Blood (Negative) Urine Nitrate (Negative) Urine Bilirubin (NEGATIVE) Urine Urobilinogen (0.2) E.U./dL Ur Leukocyte Esterase (NEGATIVE) Urine RBC (0-5/HPF) Urine WBC (0-5/HPF) Ur Squamous Epith Cells (0-5/HPF) Urine Bacteria (None) Ur Culture Indicated? COVID-19 PCR (Negative) Imaging Data Chest x-ray: Radiologist's Impression: [address] [place] [id number] XRay Report Signed Patient: Melvi Gibbs [facility]#: [id number] : 1965Acct:[id number] Age/Sex: 54 / FDate of Service: 12/08/19 Loc: ED Accession Number: [id number] Procedure: XR chest 2V Ordering Provider: Xuan Herrera PROCEDURE: XR CHEST 2V INDICATIONS: cough, shortness of breath TECHNIQUE: 2 views of the chest were acquired. COMPARISON: [facility], , XR CHEST 1V, 11/04/2019, 6:23. FINDINGS: Surgical changes and devices: None. Lungs and pleura: Lungs are clear. No pleural effusions or pneumothorax. Mediastinum: Mediastinal contours are normal. Heart size is normal. Bones and chest wall: No suspicious bony abnormalities. Soft tissues appear unremarkable. IMPRESSION: No evidence acute pulmonary process. Dictated by: Ayush Partida M.D. on 12/08/2019 at 12:04 Approved by: Ayush Partida M.D. on 12/08/2019 at 12:05 ECG Data Attestation: I personally reviewed and interpreted this ECG as follows: Interpretation: Sinus tachycardia. Ventricular rate 102. P.r. interval 124. QRS 75. No ectopy noted. viewed by Dr Roman MDM Narrative Medical decision making narrative: The patient is a 54-year-old female current smoker with a complicated medical history including history of pyelonephritis, urostomy diabetes who presents with a chief complaint of flank pain, fever, muscle aches chills. She also notes that she has a dry cough, scope a negative, no acute findings on her chest x-ray. Her urine is concerning with nitrates, wbc's and she has definite CVA tenderness on exam. She has low-grade fever upon arrival, is tachycardic in the low 100s. Blood cultures are pending, however exam is concerning for pyelonephritis at this point time. She has history of multiple urinary tract infections and pyelonephritis. Her lactate is elevated at 3, leukocytosis to 12. Given the patient's complicated medical history, elevated lactate, I spoke with Dr. Post kindly accepted the patient for admission. I spoke with her regarding antibiotic therapy and elected to use meropenem. Patient is okay with plan of care, is okay with being admitted at this point time <Lyle Roman, - Last Filed: 12/08/19 17:32> Lab Data Labs: Lab Results 12/08/19 12/08/19 12/08/19 Range/Units 11:27 11:40 11:50 WBC (4.5-11.0) X10^3/uL RBC (4.0-5.2) X10^6/uL Hgb (12.0-16.0) g/dL Hct (36-46) % MCV (80-100) fL MCH (26-34) PG MCHC (30-36) % RDW (11.6-14.8) % Plt Count (150-400) X10^3/uL Neut % (Auto) (50-75) % Lymph % (Auto) (25-40) % [place] % (Auto) (3-14) % Eos % (Auto) (2-4) % Baso % (Auto) (0-2) % Neut # (Auto) (0484-0252) /uL Lymph # (Auto) (7267-3044) /uL [place] # (Auto) (0-900) /uL Eos # (Auto) (0-450) /uL Baso # (Auto) (0-100) /uL PT (10.1-12.7) SECONDS INR (0.9-1.3) APTT (26.4-36.2) SECONDS Sodium (137-145) mmol/L Potassium (3.4-5.1) mmol/L Chloride (98-107) mmol/L Carbon Dioxide (22-32) mmol/L BUN (7-17) mg/dL Creatinine (0.52-1.04) mg/dL Estimated GFR (>60) mL/min BUN/Creatinine Ratio (6-22) Glucose (70-100) mg/dL Lactate (0.7-2.1) mmol/L Calcium (8.4-10.2) mg/dL Magnesium (1.6-2.3) mg/dL Total Bilirubin (0.2-1.3) mg/dL AST (14-36) IU/L ALT (<35) IU/L Alkaline Phosphatase (38-126) U/L Total Creatine Kinase (30-135) U/L CK-MB (CK-2) CK-MB (CK-2) Rel Index Troponin I (0.01-0.034) ng/mL NT-Pro-B Natriuret Pep (<125) pg/mL Total Protein (6.3-8.2) g/dL Albumin (3.5-5.0) g/dL Globulin (1.7-4.1) g/dL Albumin/Globulin Ratio (1.0-2.8) Amylase (30-110) U/L Lipase (23-300) U/L Procalcitonin < 0.05 (<0.5) ng/mL Urine Color Yellow Urine Appearance Sl cloudy Urine pH 7.0 (4.5-8.0) Ur Specific [place] 1.015 (1.000-1.035) Urine Protein Trace H (Negative) Urine Glucose (UA) 1+ H (Negative) g/dL Urine Ketones Negative (NEGATIVE) Urine Occult Blood Trace-intact (Negative) Urine Nitrate Positive H (Negative) Urine Bilirubin Negative (NEGATIVE) Urine Urobilinogen 0.2 (0.2) E.U./dL Ur Leukocyte Esterase Trace H (NEGATIVE) Urine RBC None seen (0-5/HPF) Urine WBC 5-10/hpf H (0-5/HPF) Ur Squamous Epith Cells 0-1 /hpf (0-5/HPF) Urine Bacteria Many (>30) H (None) Ur Culture Indicated? Specimen cultured COVID-19 PCR Negative (Negative) 12/08/19 12/08/19 12/08/19 Range/Units 12:35 12:35 12:35 WBC 12.0 H (4.5-11.0) X10^3/uL RBC 3.51 L (4.0-5.2) X10^6/uL Hgb 11.9 L (12.0-16.0) g/dL Hct 35.2 L (36-46) % MCV 100.2 H (80-100) fL MCH 33.9 (26-34) PG MCHC 33.9 (30-36) % RDW 13.5 (11.6-14.8) % Plt Count 287 (150-400) X10^3/uL Neut % (Auto) 75.7 H (50-75) % Lymph % (Auto) 17.4 L (25-40) % [place] % (Auto) 5.9 (3-14) % Eos % (Auto) 0.2 L (2-4) % Baso % (Auto) 0.8 (0-2) % Neut # (Auto) 9100 H (7348-8223) /uL Lymph # (Auto) 2100 (7259-0756) /uL [place] # (Auto) 700 (0-900) /uL Eos # (Auto) 0 (0-450) /uL Baso # (Auto) 100 (0-100) /uL PT (10.1-12.7) SECONDS INR (0.9-1.3) APTT (26.4-36.2) SECONDS Sodium 130 L (137-145) mmol/L Potassium 5.9 H (3.4-5.1) mmol/L Chloride 102 (98-107) mmol/L Carbon Dioxide 21 L (22-32) mmol/L BUN 15 (7-17) mg/dL Creatinine 0.53 (0.52-1.04) mg/dL Estimated GFR > 60.0 (>60) mL/min BUN/Creatinine Ratio 28.3 H (6-22) Glucose 260 H (70-100) mg/dL Lactate 3.0 H (0.7-2.1) mmol/L Calcium 9.4 (8.4-10.2) mg/dL Magnesium 2.1 (1.6-2.3) mg/dL Total Bilirubin 0.6 (0.2-1.3) mg/dL AST 39 H (14-36) IU/L ALT 18 (<35) IU/L Alkaline Phosphatase 125 (38-126) U/L Total Creatine Kinase 42 (30-135) U/L CK-MB (CK-2) TNP CK-MB (CK-2) Rel Index TNP Troponin I < 0.012 (0.01-0.034) ng/mL NT-Pro-B Natriuret Pep 194 H (<125) pg/mL Total Protein 7.3 (6.3-8.2) g/dL Albumin 4.1 (3.5-5.0) g/dL Globulin 3.2 (1.7-4.1) g/dL Albumin/Globulin Ratio 1.3 (1.0-2.8) Amylase 90 (30-110) U/L Lipase 19 L (23-300) U/L Procalcitonin (<0.5) ng/mL Urine Color Urine Appearance Urine pH (4.5-8.0) Ur Specific [place] (1.000-1.035) Urine Protein (Negative) Urine Glucose (UA) (Negative) g/dL Urine Ketones (NEGATIVE) Urine Occult Blood (Negative) Urine Nitrate (Negative) Urine Bilirubin (NEGATIVE) Urine Urobilinogen (0.2) E.U./dL Ur Leukocyte Esterase (NEGATIVE) Urine RBC (0-5/HPF) Urine WBC (0-5/HPF) Ur Squamous Epith Cells (0-5/HPF) Urine Bacteria (None) Ur Culture Indicated? COVID-19 PCR (Negative) 12/08/19 Range/Units 13:40 WBC (4.5-11.0) X10^3/uL RBC (4.0-5.2) X10^6/uL Hgb (12.0-16.0) g/dL Hct (36-46) % MCV (80-100) fL MCH (26-34) PG MCHC (30-36) % RDW (11.6-14.8) % Plt Count (150-400) X10^3/uL Neut % (Auto) (50-75) % Lymph % (Auto) (25-40) % [place] % (Auto) (3-14) % Eos % (Auto) (2-4) % Baso % (Auto) (0-2) % Neut # (Auto) (8190-4178) /uL Lymph # (Auto) (5643-2014) /uL [place] # (Auto) (0-900) /uL Eos # (Auto) (0-450) /uL Baso # (Auto) (0-100) /uL PT 10.6 (10.1-12.7) SECONDS INR 0.9 (0.9-1.3) APTT 33 D (26.4-36.2) SECONDS Sodium (137-145) mmol/L Potassium (3.4-5.1) mmol/L Chloride (98-107) mmol/L Carbon Dioxide (22-32) mmol/L BUN (7-17) mg/dL Creatinine (0.52-1.04) mg/dL Estimated GFR (>60) mL/min BUN/Creatinine Ratio (6-22) Glucose (70-100) mg/dL Lactate (0.7-2.1) mmol/L Calcium (8.4-10.2) mg/dL Magnesium (1.6-2.3) mg/dL Total Bilirubin (0.2-1.3) mg/dL AST (14-36) IU/L ALT (<35) IU/L Alkaline Phosphatase (38-126) U/L Total Creatine Kinase (30-135) U/L CK-MB (CK-2) CK-MB (CK-2) Rel Index Troponin I (0.01-0.034) ng/mL NT-Pro-B Natriuret Pep (<125) pg/mL Total Protein (6.3-8.2) g/dL Albumin (3.5-5.0) g/dL Globulin (1.7-4.1) g/dL Albumin/Globulin Ratio (1.0-2.8) Amylase (30-110) U/L Lipase (23-300) U/L Procalcitonin (<0.5) ng/mL Urine Color Urine Appearance Urine pH (4.5-8.0) Ur Specific [place] (1.000-1.035) Urine Protein (Negative) Urine Glucose (UA) (Negative) g/dL Urine Ketones (NEGATIVE) Urine Occult Blood (Negative) Urine Nitrate (Negative) Urine Bilirubin (NEGATIVE) Urine Urobilinogen (0.2) E.U./dL Ur Leukocyte Esterase (NEGATIVE) Urine RBC (0-5/HPF) Urine WBC (0-5/HPF) Ur Squamous Epith Cells (0-5/HPF) Urine Bacteria (None) Ur Culture Indicated? COVID-19 PCR (Negative) Discharge Plan Departure Patient Disposition: Admitted As Inpatient Clinical Impression: Pyelonephritis Discharge Date/Time: 12/08/19 16:08 Admit Date/Time: 12/08/19 14:11 Admit Provider: Angeles Post <Lyle Roman DO - Last Filed: 12/08/19 17:32> Cosign ED Attending Cosignature Attestation: I was immediately available in the department for consultation. This documentation has been reviewed and I agree with assessment and plan. Supervised by Lyle Roman DO
[2019-12-08 12:04] LABS: RBC Urine None Seen (0-5/HPF)
[2019-12-08 12:06] LABS: Bilirubin Urine UA NEGATIVE (NEGATIVE); Color Urine UA YELLOW; Glucose Urine UA 1+ g/dL (Negative); Ketones Urine UA NEGATIVE (NEGATIVE); Leukocyte Esterase Urine UA TRACE (NEGATIVE); Nitrite Urine UA POSITIVE (Negative); Occult Blood Urine UA TRACE-INTACT (Negative); Protein Urine UA TRACE (Negative); Specific Gravity Urine UA 1.015 (1.000-1.035); Urobilinogen Urine UA 0.2 E.U./dL (0.2)
[2019-12-08 12:07] LABS: COVID19 -Nasal RAPID Negative (Negative)
[2019-12-08 12:10] LABS: Appearance Urine UA SL CLOUDY
[2019-12-08 12:16] LABS: Bacteria Urine Many (>30); Culture Indicated Urine Specimen Cultured; Squamous Epithelial Cell Urine 0-1 /HPF (0-5/HPF); WBC Urine 5-10/HPF (0-5/HPF)
[2019-12-08] MEDS: SODIUM CHLORIDE 0.9% 1,000 ML 1000 ML IV ×2 (12:43→13:56)
[2019-12-08 12:46] LABS: Add Manual Diff / Slide Review NO; Basophils Absolute Auto 100 /uL (0-100); Basophils Percent Auto 0.8 % (0-2); Eosinophils Absolute Auto 0 /uL (0-450); Eosinophils Percent Auto 0.2 % (2-4); Hematocrit 35.2 % (36-46); Hemoglobin 11.9 g/dL (12.0-16.0); Lymphocytes Absolute Auto 2100 /uL (1100-4500); Lymphocytes Percent Auto 17.4 % (25-40); Mean Corpuscular HGB Conc 33.9 % (30-36); Mean Corpuscular Hemoglobin 33.9 PG (26-34); Mean Corpuscular Volume 100.2 fL (80-100); Monocytes Absolute Auto 700 /uL (0-900); Monocytes Percent Auto 5.9 % (3-14); Neutrophils Absolute Auto 9100 /uL (1500-7000); Neutrophils Percent Auto 75.7 % (50-75); Platelet Count 287 X10^3/uL (150-400); Red Blood Cell Count 3.51 X10^6/uL (4.0-5.2); Red Cell Distribution Width 13.5 % (11.6-14.8)
[2019-12-08] MEDS: HYDROMORPHONE 1 MG INJ (12:46)
[2019-12-08 12:55] LABS: HEMOLYSIS 76 (0-50)
[2019-12-08 12:58] LABS: Alanine Aminotransferase 18 IU/L (<35); Albumin 4.1 g/dL (3.5-5.0); Albumin Globulin Ratio 1.3 (1.0-2.8); Alkaline Phosphatase 125 U/L (38-126); Amylase 90 U/L (30-110); Aspartate Aminotransferase 39 IU/L (14-36); BUN Creatinine Ratio 28.3 (6-22); Bilirubin Total 0.6 mg/dL (0.2-1.3); Blood Urea Nitrogen 15 mg/dL (7-17); Calcium 9.4 mg/dL (8.4-10.2); Carbon Dioxide 21 mmol/L (22-32); Chloride 102 mmol/L (98-107); Creatine Kinase 42 U/L (30-135); Estimated Glomerular Filt Rate > 60.0 mL/min (>60); Globulin 3.2 g/dL (1.7-4.1); Glucose 260 mg/dL (70-100); Lipase 19 U/L (23-300); Magnesium 2.1 mg/dL (1.6-2.3); Sodium 130 mmol/L (137-145); Total Protein 7.3 g/dL (6.3-8.2)
[2019-12-08 13:05] LABS: Potassium 5.9 mmol/L (3.4-5.1)
[2019-12-08 13:06] LABS: NT-proBNP (BNP-Adult 18+) 194 pg/mL (<125)
[2019-12-08 13:12] LABS: Procalcitonin < 0.05 ng/mL (<0.5)
[2019-12-08 13:58] LABS: INR 0.9 (0.9-1.3); Prothrombin Time 10.6 SECONDS (10.1-12.7)
[2019-12-08 14:01] LABS: PTT Partial Thromboplastin Tim 33 SECONDS (26.4-36.2)
[2019-12-08] MEDS: MEROPENEM 1 GM/50 ML PIGGYBACK IV (14:19)
[2019-12-08] MEDS: HYDROMORPHONE 1 MG INJ IV (14:20)
[2019-12-08 14:22] LABS: Troponin I < 0.012 ng/mL (0.01-0.034)
[2019-12-08 14:42] LABS: Reflexed Lactate in 2 Hours Y
[2019-12-08 15:12] LABS: Lactate 2HR (Lactic Acid Rflx) 1.9 mmol/L (0.7-2.1)
--- NOTE | 2019-12-08 17:29 | CM.SWNOTE ---
TEAM AUTOMOBILE ASSEMBLER note TEAM AUTOMOBILE ASSEMBLER consult requested for patient by Xuan Herrera. Patient transferred to floor prior to consult, and TEAM AUTOMOBILE ASSEMBLER met with patient in room 225 with her , Dwayne. Patient is 54 y/o female who presents to ED with stated complaint of kidney pain, fever and chills. Patient has [employer] insurance, and has had multiple presentations to this ED during 2019. TEAM AUTOMOBILE ASSEMBLER introduces self and role to patient. Patient states she is feeling like she isn't going anywhere with regards to her health. Patient and explains patient's physical health difficulties and multiple hospital visits since May,. Patient and explain that patient stayed at [facility] for over 12 days and was put on a ventilator while there. Patient explains that she lost a significant amount of strength and weight during this time and would like to regain this. Patient informs TEAM AUTOMOBILE ASSEMBLER that during the last few days on the [facility], she listened to an eldery woman cry for her during the night, and learn that she the following morning. Patient informs TEAM AUTOMOBILE ASSEMBLER that she had nightmares after this, and has started medication through her PCP. Patient explains she is not suicidal, and finds sources of strength in her grandchildren and gnosticist. Patient states she wants to get back to normal but is unable to formulate what normal could look like for her. Patient also explains questioning why when she thinks about her physical health ailments. Patient and TEAM AUTOMOBILE ASSEMBLER discuss counseling and patient expresses interest. Due to day/time, TEAM AUTOMOBILE ASSEMBLER not able to check availability of hospital [facility] staff. TEAM AUTOMOBILE ASSEMBLER explains to patient that TEAM AUTOMOBILE ASSEMBLER will notify home care giver who is on shift for next few days to see if they can inquire about availability through [facility] and if no availability, provide other counseling resources. TEAM AUTOMOBILE ASSEMBLER will next home care giver on-shift for assistance in securing counseling for patient. MYNOR Davis
--- NOTE | 2019-12-08 17:36 | PM.HP.1 ---
History of Present Illness History of Present Illness Date Patient Seen: 12/08/19 Chief complaint: KIDNEY PAIN, FEVER, CHILLS Narrative: Put the patient is a 54-year-old female with a history of type 2 diabetes, hypertension, asthma, COPD, depression, history of kidney stones resulting and urostomy tube. She has had recurrent episodes of urinary tract infections and pyelonephritis. She has been hospitalized at least monthly for the past several months for recurrent infections. Patient left the hospital Against Medical Advice during her last visit. She reports that 2 days ago she saw pus coming from her urostomy tube. She has had low-grade fevers, right flank pain, and generalized malaise. She has had no nausea or vomiting. She denies any shortness of breath chest pain headache blurred vision double vision or joint pains. Patient was seen in the emergency department. Urinalysis was positive with leukocyte esterase and multiple bacteria. She had an elevated lactate at 3. Patient also found to have right flank pain. She is admitted to the hospital at this time for recurrent pyelonephritis. The patient has previously had drug-resistant organisms. However her last organism grew Klebsiella which was fairly sensitive except for Augmentin. The patient received meropenem in the emergency department and now will be admitted to the hospital. Patient History Medical History Anxiety (Chronic) Closed fracture of left humerus (Inactive) Endometriosis (Chronic) Fibromyalgia (Chronic) Heart palpitations (Chronic) History of asthma (Chronic) History of chronic hypertension (Chronic) History of COPD (Chronic) History of depression (Chronic) History of gastrointestinal ulcer (Chronic) History of kidney stones (Chronic) History of migraine (Chronic) History of panic attacks (Chronic) History of type 2 diabetes mellitus (Chronic) Hyperlipidemia (Acute) Interstitial cystitis (Chronic) UTI (urinary tract infection) (Chronic) Surgical History History of urostomy (Acute) S/P appendectomy (Resolved) Status post hysterectomy (Resolved) Status post left rotator cuff repair (Acute) Family & Social History Family History Mother Diabetes mellitus Lupus Social History: household members spouse Prior Living Arrangements House Safety & Behavioral: Feels Safe in Current Yes Environment Been Physically Hurt or No Threatened By a Person Suicidal Ideation Description None Suicide Plan Description No Plan Tobacco & Substance use: Tobacco type cigarettes Smoking Status Current every day smoker alcohol intake current alcohol intake frequency holiday/special occasion Substance Use Type marijuana,former substance user Meds Home Medications and Allergies Home Medications Medication Instructions Recorded Confirmed Type albuterol sulfate [Proventil HFA] 2 puff INH Q4HP PRN #0 01/08/13 12/08/19 History hydroxyzine HCl 50 mg PO BID #0 01/08/13 12/08/19 History duloxetine 60 mg PO DAILY #0 07/04/17 12/08/19 History gabapentin [Neurontin] 900 mg PO BID #0 07/04/17 12/08/19 History multivitamin [Multiple Vitamins] 1 tab PO DAILY #0 07/04/17 12/08/19 History zolpidem [Ambien] 10 mg PO HS PRN #0 07/04/17 12/08/19 History Probiotic 1 tab PO DAILY 09/26/17 12/08/19 History lisinopril 10 mg PO DAILY 09/26/17 12/08/19 History omeprazole 20 mg PO DAILY 09/26/17 12/08/19 History ondansetron 1 tab TRANSLINGUAL Q6H PRN 09/26/17 12/08/19 History potassium chloride 20 meq PO DAILY 09/26/17 12/08/19 History vitamin E 1 cap PO DAILY 09/26/17 12/08/19 History lorazepam 0.5 mg PO DAILY 05/30/18 12/08/19 History Humulin N NPH Insulin KwikPen 10 unit SUBCUT BID 05/17/19 12/08/19 History methocarbamol 1,000 mg PO QID 05/17/19 12/08/19 History Vitamin D3 Complete See Rx Instructions .ROUTE .COMPLEX 11/04/19 12/08/19 History quetiapine 200 mg PO BEDTIME 11/04/19 12/08/19 History magnesium glycinate 800 mg PO QPM 12/08/19 12/08/19 History melatonin 20 mg PO BEDTIME 12/08/19 12/08/19 History Allergies Allergy/AdvReac Type Severity Reaction Status Date / Time mupirocin Allergy Unknown Verified 10/11/19 15:56 naproxen Allergy Unknown Verified 10/11/19 15:56 Penicillins Allergy Unknown SINCE Verified 10/11/19 15:56 CHILDHOOD droperidol AdvReac Unknown Verified 10/11/19 15:56 fenofibrate [FENOFIBRATE] AdvReac Unknown Verified 10/11/19 15:56 ibuprofen AdvReac Unknown NAUSEA Verified 10/11/19 15:56 metformin [METFORMIN] AdvReac Unknown Verified 10/11/19 15:56 metoclopramide AdvReac Unknown BECAME Verified 10/11/19 15:56 JITTERY AND ANXIOUS nitrofurantoin AdvReac Unknown NAUSEA Verified 10/11/19 15:56 Review of Systems Review of Systems ROS: Yes All systems reviewed with the patient and are negative except as otherwise documented Exam Vital Signs (past 8 hours): - 12/08/19 11:19 12/08/19 11:30 12/08/19 11:51 Temperature 99.7 F H 99.7 F H Pulse Rate 105 H 103 H 104 H Respiratory Rate 20 20 18 Blood Pressure 162/101 H 153/81 H Pulse Oximetry 100 100 99 12/08/19 12:00 12/08/19 13:15 12/08/19 13:45 Temperature Pulse Rate 103 H 102 H 101 H Respiratory Rate 18 18 18 Blood Pressure 155/86 H 162/89 H 162/86 H Pulse Oximetry 100 100 100 12/08/19 14:30 12/08/19 15:00 12/08/19 15:27 Temperature 98.7 F Pulse Rate 97 H 98 H Respiratory Rate 16 16 Blood Pressure 152/89 H 148/89 H Pulse Oximetry 100 100 12/08/19 15:55 12/08/19 16:33 Temperature 98.1 F Pulse Rate 100 H Respiratory Rate 21 Blood Pressure 142/78 H Pulse Oximetry 97 99 Oxygen Delivery Method Room Air Narrative Exam Narrative: Ill-appearing female tearful HEENT: Normocephalic atraumatic, extraocular muscles are intact oropharynx is clear, neck is supple Lungs: In clear to auscultation Cardiac exam: Regular rate and rhythm normal S1-S2 with a 2/6 systolic ejection murmur Abdomen: Soft nontender nondistended, well-healed midline surgical incision, urostomy in place, clear yellow for urine is draining, stoma site is pink clean and dry Lower extremities: No edema Neuro exam: Nonfocal Objective Labs Result Diagrams: 12/08/19 12:35 12/08/19 12:35 Labs: Laboratory Results - last 24 hr 12/08/19 12/08/19 12/08/19 11:27 11:40 11:50 WBC RBC Hgb Hct MCV MCH MCHC RDW Plt Count Neut % (Auto) Lymph % (Auto) [place] % (Auto) Eos % (Auto) Baso % (Auto) Neut # (Auto) Lymph # (Auto) [place] # (Auto) Eos # (Auto) Baso # (Auto) PT INR APTT Sodium Potassium Chloride Carbon Dioxide BUN Creatinine Estimated GFR BUN/Creatinine Ratio Glucose Lactate Calcium Magnesium Total Bilirubin AST ALT Alkaline Phosphatase Total Creatine Kinase CK-MB (CK-2) CK-MB (CK-2) Rel Index Troponin I NT-Pro-B Natriuret Pep Total Protein Albumin Globulin Albumin/Globulin Ratio Amylase Lipase Procalcitonin < 0.05 Urine Color Yellow Urine Appearance Sl cloudy Urine pH 7.0 Ur Specific [place] 1.015 Urine Protein Trace H Urine Glucose (UA) 1+ H Urine Ketones Negative Urine Occult Blood Trace-intact Urine Nitrate Positive H Urine Bilirubin Negative Urine Urobilinogen 0.2 Ur Leukocyte Esterase Trace H Urine RBC None seen Urine WBC 5-10/hpf H Ur Squamous Epith Cells 0-1 /hpf Urine Bacteria Many (>30) H Ur Culture Indicated? Specimen cultured COVID-19 PCR Negative 12/08/19 12/08/19 12/08/19 12:35 12:35 12:35 WBC 12.0 H RBC 3.51 L Hgb 11.9 L Hct 35.2 L MCV 100.2 H MCH 33.9 MCHC 33.9 RDW 13.5 Plt Count 287 Neut % (Auto) 75.7 H Lymph % (Auto) 17.4 L [place] % (Auto) 5.9 Eos % (Auto) 0.2 L Baso % (Auto) 0.8 Neut # (Auto) 9100 H Lymph # (Auto) 2100 [place] # (Auto) 700 Eos # (Auto) 0 Baso # (Auto) 100 PT INR APTT Sodium 130 L Potassium 5.9 H Chloride 102 Carbon Dioxide 21 L BUN 15 Creatinine 0.53 Estimated GFR > 60.0 BUN/Creatinine Ratio 28.3 H Glucose 260 H Lactate 3.0 H Calcium 9.4 Magnesium 2.1 Total Bilirubin 0.6 AST 39 H ALT 18 Alkaline Phosphatase 125 Total Creatine Kinase 42 CK-MB (CK-2) TNP CK-MB (CK-2) Rel Index TNP Troponin I < 0.012 NT-Pro-B Natriuret Pep 194 H Total Protein 7.3 Albumin 4.1 Globulin 3.2 Albumin/Globulin Ratio 1.3 Amylase 90 Lipase 19 L Procalcitonin Urine Color Urine Appearance Urine pH Ur Specific [place] Urine Protein Urine Glucose (UA) Urine Ketones Urine Occult Blood Urine Nitrate Urine Bilirubin Urine Urobilinogen Ur Leukocyte Esterase Urine RBC Urine WBC Ur Squamous Epith Cells Urine Bacteria Ur Culture Indicated? COVID-19 PCR 12/08/19 12/08/19 13:40 14:56 WBC RBC Hgb Hct MCV MCH MCHC RDW Plt Count Neut % (Auto) Lymph % (Auto) [place] % (Auto) Eos % (Auto) Baso % (Auto) Neut # (Auto) Lymph # (Auto) [place] # (Auto) Eos # (Auto) Baso # (Auto) PT 10.6 INR 0.9 APTT 33 D Sodium Potassium Chloride Carbon Dioxide BUN Creatinine Estimated GFR BUN/Creatinine Ratio Glucose Lactate 1.9 Calcium Magnesium Total Bilirubin AST ALT Alkaline Phosphatase Total Creatine Kinase CK-MB (CK-2) CK-MB (CK-2) Rel Index Troponin I NT-Pro-B Natriuret Pep Total Protein Albumin Globulin Albumin/Globulin Ratio Amylase Lipase Procalcitonin Urine Color Urine Appearance Urine pH Ur Specific [place] Urine Protein Urine Glucose (UA) Urine Ketones Urine Occult Blood Urine Nitrate Urine Bilirubin Urine Urobilinogen Ur Leukocyte Esterase Urine RBC Urine WBC Ur Squamous Epith Cells Urine Bacteria Ur Culture Indicated? COVID-19 PCR Assessment & Plan Assessment & Plan narrative: Impression 1. 54-year-old female admitted to the hospital with acute pyelonephritis -the patient has a chronic catheter from her urostomy tube -she has had multiple recurrent infection most recently over the past several months -urine cultures obtained in the emergency department, blood cultures pending, -will continue ceftriaxone 2 g IV Q 24 hours, will narrow antibiotics based on culture results -suggest outpatient referral to infectious disease to consider if chronic antibiotic suppressive therapy should be considered 2. Type 2 diabetes -patient currently on NPH insulin -will continue her outpatient -will add low-dose correctional insulin as well 3. Asthma -no evidence of exacerbation at this time -continue albuterol inhaler -patient continues to smoke half a pack per day -smoking cessation counseling has been off -patient to receive a 14 mg nicotine patch during her hospital stay 4. Hypertension -continue lisinopril 5. Hyperkalemia -will discontinue daily potassium -will continue to follow potassium daily 6. Anxiety and depression -will continue usual home medication to include lorazepam and duloxetine -patient to continue on her Seroquel 7. Patient is a full code and will note that her record accordingly Patient is admitted as an inpatient as it is anticipated she will be in the hospital for more than 48 hours She will be placed on Lovenox 40 mg subcu daily for DVT prophylaxis Quality VTE Deep Vein Thrombosis/Pulmonary Embolism Present on Admission: No
[2019-12-08] MEDS: HYDROCODONE/ACET 5/325 TABLET 1 TAB PO (17:37)
[2019-12-08] MEDS: CEFTRIAXONE 2 GM/50 ML FROZ.PIGGY IV (17:37)
[2019-12-08] MEDS: DEXTROSE 5%-0.45% NS 1,000 ML 100 ML IV (17:38)
[2019-12-08] MEDS: INSULIN ASPART 100 UNIT/ML INSULN PEN SUBCUT ×2 (17:47→20:09)
[2019-12-08] MEDS: ROPINIROLE 0.25 MG TABLET PO (19:49)
[2019-12-08] MEDS: hydrOXYzine pamoate 25 MG CAPSULE 50 MG PO (19:50)
[2019-12-08] MEDS: GABAPENTIN 300 MG CAPSULE 900 MG PO (19:50)
[2019-12-08] MEDS: methocarbamoL 500 MG TABLET 1000 MG PO (19:50)
[2019-12-08] MEDS: MELATONIN 3 MG TABLET 18 MG PO (19:50)
[2019-12-08] MEDS: DOCUSATE 100 MG CAPSULE PO (19:55)
[2019-12-08] MEDS: QUETIAPINE 100 MG TABLET 200 MG PO (19:55)
[2019-12-08] MEDS: NICOTINE 14 PATCH 14 MG TOP (19:55)
[2019-12-08] MEDS: INSULIN NPH 100 UNIT/ML VIAL 10 UNIT SUBCUT (20:09)
[2019-12-08] MEDS: ZOLPIDEM 5 MG TABLET 10 MG PO (21:33)
[2019-12-08] MEDS: HYDROMORPHONE 1 MG INJ 0.5 MG IV (22:08)
[2019-12-09] VITALS (11 sets, daily range): BP systolic 94–138; BP diastolic 52–82; PULSE 73–101; RESP 14–19; TEMP 36.1–36.8; O2SAT 94–100
[2019-12-09] MEDS: HYDROCODONE/ACET 5/325 TABLET 1 TAB PO ×4 (01:06→17:36)
[2019-12-09] MEDS: HYDROMORPHONE 1 MG INJ 0.5 MG IV (03:40)
[2019-12-09] MEDS: DEXTROSE 5%-0.45% NS 1,000 ML 100 ML IV (03:40)
[2019-12-09 04:56] LABS: Add Manual Diff / Slide Review NO; Basophils Absolute Auto 100 /uL (0-100); Basophils Percent Auto 0.8 % (0-2); Eosinophils Absolute Auto 200 /uL (0-450); Eosinophils Percent Auto 2.2 % (2-4); Lymphocytes Absolute Auto 3900 /uL (1100-4500); Lymphocytes Percent Auto 44.1 % (25-40); Mean Corpuscular HGB Conc 33.5 % (30-36); Mean Corpuscular Volume 101.7 fL (80-100); Monocytes Absolute Auto 800 /uL (0-900); Monocytes Percent Auto 9.5 % (3-14); Neutrophils Absolute Auto 3900 /uL (1500-7000); Neutrophils Percent Auto 43.4 % (50-75); Platelet Count 236 X10^3/uL (150-400); Red Blood Cell Count 2.95 X10^6/uL (4.0-5.2); Red Cell Distribution Width 13.4 % (11.6-14.8); White Blood Cell Count 8.9 X10^3/uL (4.5-11.0)
[2019-12-09 05:02] LABS: BUN Creatinine Ratio 21.4 (6-22); Blood Urea Nitrogen 9 mg/dL (7-17); Calcium 8.7 mg/dL (8.4-10.2); Carbon Dioxide 22 mmol/L (22-32); Chloride 107 mmol/L (98-107); Estimated Glomerular Filt Rate > 60.0 mL/min (>60); Glucose 103 mg/dL (70-100); HEMOLYSIS < 15 (0-50); Potassium 4.2 mmol/L (3.4-5.1); Sodium 133 mmol/L (137-145)
[2019-12-09] MEDS: PANTOPRAZOLE 20 MG TABLET PO (06:45)
[2019-12-09] MEDS: MULTIVITAMIN 1 TABLET 1 TAB PO (08:29)
[2019-12-09] MEDS: GABAPENTIN 300 MG CAPSULE 900 MG PO ×2 (08:29→21:48)
[2019-12-09] MEDS: methocarbamoL 500 MG TABLET 1000 MG PO ×4 (08:29→21:47)
[2019-12-09] MEDS: LACTOBACILLUS ACIDOPHILUS TABLET 1 EACH PO (08:29)
[2019-12-09] MEDS: ENOXAPARIN 40 MG/0.4 ML SYRINGE SUBCUT (08:30)
[2019-12-09] MEDS: DOCUSATE 100 MG CAPSULE PO ×2 (08:30→21:48)
[2019-12-09] MEDS: hydrOXYzine pamoate 25 MG CAPSULE 50 MG PO ×2 (08:30→21:47)
[2019-12-09] MEDS: LORazepam 0.5 MG TABLET PO (08:30)
[2019-12-09] MEDS: DULOXETINE 30 MG CAPSULE 60 MG PO (08:30)
[2019-12-09] MEDS: VITAMIN E 400 UNIT CAPSULE PO (08:31)
[2019-12-09] MEDS: lisinopriL 10 MG TABLET PO (08:31)
[2019-12-09] MEDS: INSULIN NPH 100 UNIT/ML VIAL 10 UNIT SUBCUT ×2 (08:41→21:52)
--- NOTE | 2019-12-09 09:31 | CM.DANOTE ---
DCP Assesment: Patient is a 54 yr old female who was admitted to the hospital for acute pyelonephriti. patients PCP is Dr. Ko. CM/Rn met with patient at the bedside and explained role. patient was alert and oriented x3 at time of CM visit. Patient currently lives in [place] with her Dwayne. Patient is Independent at baseline with all ADLs and drives. Patient has had 13 ED visits and 3 inpatient stays this year and is struggling with repetitive UTIs and pneumonia. Patient was hospitalized at [facility] earlier this year and was not allowed to have her there due to Covid. Patient states, this was very tramatic to her since she was so sick and not having her support person really messed with her anxiety. Patient also stated there was a lady in one room over from her who was screaming for 24 hours for her and they would not let him in and patient stated that lady the next day without being able to see her . Patient stated that this event has made it really hard to go to the hospital and has cause major anxiety in her when she is in the hospital and makes her want to leave. Patient states she is open to receiving counseling to help with this and CM/RN will get information and resources to give to her. MYNOR Morin met with patient in the ED and suggested [facility] appointment at D/C. Insurance: [employer] and self pay Plan: D/C home with when medically stable. Patient would like some counseling information. CM/RN gave patient information on [facility] as well as [place] [facility].. MYNOR Morin recommended calling [facility] for an appointment for patient at D/C. D/C plan is most likely tomorrow after cultures and sensitivities come back. Dana Salinas RN Discharge Planning/Care Management CM Discharge Assessment Start: 12/09/19 09:27 Freq: Status: Active Protocol: Document 12/09/19 09:27 HS (Rec: 12/09/19 09:31 HS [id number]) Discharge Planning Assessment Assigned Pickling Solution Maker Dana Salinas RN DPOA/Assigned Designee Name Dwayne Gibbs () Contact Information [phone] Advance Directives? No Advance Directives on File No History Provided By Patient,Significant Other Has Patient been admitted in last 30 No days? Comment But has had 13 ED visits and 3 INPT stays this year. Prior Living Arrangements House Household Members spouse Type of transporation used prior to Drives own vehicle admit Independent with ADL's Yes Is patient alert and oriented? Yes Caregiver for Another No Barriers to Discharge No Discharge Plan Home Transportation Arrangement Spouse Referrals Initiated Other Additional Comment CM/RN will give paitent informaiton about counseling services and MANAGER [employer]EL will work on IP referral. Whiteboard Updated in Patient Room with Yes name and ext. # of Pickling Solution Maker Review Status In Process Next Review Type Continued Stay Review
[2019-12-09] MEDS: HYDROMORPHONE 0.5 MG INJ IV ×2 (09:37→15:27)
[2019-12-09] MEDS: ALBUTEROL HFA 200 PUFF/18 GM INH (COVID POS/VENT PTS) INH (12:36)
--- NOTE | 2019-12-09 14:23 | P.PN_ITS ---
Subjective Subjective Date Patient Seen: 12/09/19 Interval history: Overnight events noted. Patient reports continued flank pain. She is agreeable to staying in the hospital today. Patient was ambulating the halls without difficulty. Exam Vital Signs (past 8 hours): - 12/09/19 06:48 12/09/19 08:00 12/09/19 09:18 Temperature 97.4 F L Pulse Rate 73 82 Respiratory Rate 18 16 14 Blood Pressure 119/62 Pulse Oximetry 98 95 12/09/19 12:00 12/09/19 12:36 Temperature 97.8 F Pulse Rate 86 81 Respiratory Rate 19 16 Blood Pressure 138/82 Pulse Oximetry 99 94 Oxygen Delivery Method Room Air Oxygen Flow Rate 0 Narrative Exam Narrative: Pleasant ill-appearing female Lungs: Clear to auscultation Cardiac exam: Regular rate and rhythm normal S1-S2 Abdomen: Soft nontender nondistended Extremities: No edema Objective Labs Result Diagrams: 12/09/19 04:40 12/09/19 04:40 Labs: Laboratory Results - last 24 hr 12/08/19 12/09/19 12/09/19 14:56 04:40 04:40 WBC 8.9 RBC 2.95 L Hgb 10.0 L Hct 30.0 L MCV 101.7 H MCH 34.0 MCHC 33.5 RDW 13.4 Plt Count 236 Neut % (Auto) 43.4 L D Lymph % (Auto) 44.1 H D [place] % (Auto) 9.5 Eos % (Auto) 2.2 Baso % (Auto) 0.8 Neut # (Auto) 3900 Lymph # (Auto) 3900 [place] # (Auto) 800 Eos # (Auto) 200 Baso # (Auto) 100 Sodium 133 L Potassium 4.2 D Chloride 107 Carbon Dioxide 22 BUN 9 Creatinine 0.42 L Estimated GFR > 60.0 BUN/Creatinine Ratio 21.4 Glucose 103 H D Lactate 1.9 Calcium 8.7 Assessment & Plan Assessment & Plan narrative: Assessment & Plan narrative: Impression 1. 54-year-old female admitted to the hospital with acute pyelonephritis -the patient has a chronic catheter from her urostomy tube -she has had multiple recurrent infection most recently over the past several months -urine cultures obtained in the emergency department, blood cultures pending, -will continue ceftriaxone 2 g IV Q 24 hours, will narrow antibiotics based on culture results -suggest outpatient referral to infectious disease to consider if chronic antibiotic suppressive therapy should be considered -Await culture and sensitivity to narrow antibiotic options 2. Type 2 diabetes -patient currently on NPH insulin -will continue her outpatient -will add low-dose correctional insulin as well 3. Asthma -no evidence of exacerbation at this time -continue albuterol inhaler -patient continues to smoke half a pack per day -smoking cessation counseling has been off -patient to receive a 14 mg nicotine patch during her hospital stay 4. Hypertension -continue lisinopril 5. Hyperkalemia -will discontinue daily potassium -will continue to follow potassium daily 6. Anxiety and depression -will continue usual home medication to include lorazepam and duloxetine -patient to continue on her Seroquel Quality VTE Deep Vein Thrombosis/Pulmonary Embolism Present on Admission: No
[2019-12-09] MEDS: CEFTRIAXONE 2 GM/50 ML FROZ.PIGGY IV (17:27)
[2019-12-09] MEDS: ZOLPIDEM 5 MG TABLET 10 MG PO (21:48)
[2019-12-09] MEDS: MELATONIN 3 MG TABLET 18 MG PO (21:48)
[2019-12-09] MEDS: QUETIAPINE 100 MG TABLET 200 MG PO (21:50)
[2019-12-09] MEDS: INSULIN ASPART 100 UNIT/ML INSULN PEN SUBCUT (21:50)
[2019-12-09] MEDS: ROPINIROLE 0.25 MG TABLET PO (21:50)
[2019-12-09] MEDS: NICOTINE 14 PATCH 14 MG TOP (22:59)
[2019-12-10] MEDS: HYDROCODONE/ACET 5/325 TABLET 1 TAB PO ×3 (02:34→10:33)
[2019-12-10 04:56] VITALS: BP 105/64; PULSE 77; RESP 16; TEMP 35.9; O2SAT 98
[2019-12-10] MEDS: PANTOPRAZOLE 20 MG TABLET PO (06:05)
[2019-12-10] MEDS: HYDROMORPHONE 0.5 MG INJ IV (06:46)
[2019-12-10 08:00] VITALS: BP 109/75; PULSE 78; RESP 18; TEMP 36.3; O2SAT 97
--- NOTE | 2019-12-10 09:08 | PM.DS.1 ---
History of Present Illness History of Present Illness Chief complaint: KIDNEY PAIN, FEVER, CHILLS Narrative: Put the patient is a 54-year-old female with a history of type 2 diabetes, hypertension, asthma, COPD, depression, history of kidney stones resulting and urostomy tube. She has had recurrent episodes of urinary tract infections and pyelonephritis. She has been hospitalized at least monthly for the past several months for recurrent infections. Patient left the hospital Against Medical Advice during her last visit. She reports that 2 days ago she saw pus coming from her urostomy tube. She has had low-grade fevers, right flank pain, and generalized malaise. She has had no nausea or vomiting. She denies any shortness of breath chest pain headache blurred vision double vision or joint pains. Patient was seen in the emergency department. Urinalysis was positive with leukocyte esterase and multiple bacteria. She had an elevated lactate at 3. Patient also found to have right flank pain. She is admitted to the hospital at this time for recurrent pyelonephritis. The patient has previously had drug-resistant organisms. However her last organism grew Klebsiella which was fairly sensitive except for Augmentin. The patient received meropenem in the emergency department and now will be admitted to the hospital. Discharge Providers Provider Date of admission: 12/08/19 14:11 Discharge Date: 12/10/19 Primary care physician: Fadi Ko DO Consults: 12/08/19 11:27 Consult to Respiratory Therapy Evaluate & Treat Comment: Physician Instructions: Evaluate and treat 12/08/19 15:52 Consult to SENIOR INFORMATION SECURITY ENGINEER - Tomographic Tech Routine Comment: 12/08/19 16:13 Consult to Dietitian, Adult Routine Comment: Reason For Exam: weight loss since left shoulder fracture 05/2019 Consult to Pastoral Services Routine Comment: in-house tribal delegate visit when available Discharge provider: Angeles Post MD Summary Hospital Course Discharge Diagnosis: 1. Acute pyelonephritis 2. Urinary tract infection due to Citrobacter Fruendi and Provendencia Regii 3. Type 2 diabetes 4. Asthma 5. Hypertension 6. GERD 7. Depression Hospital Course: Patient was admitted to the hospital for recurrent urinary tract infection/pyelonephritis. She was placed on meropenem in the emergency room and then switched to ceftriaxone. The patient's urine cultures came back positive for Citrobacter freundii and Provendentia REgii which was sensitive to multiple antibiotics. The patient had improvement of her right flank pain. Her appetite improved overall she felt significantly better. Patient was deemed appropriate for discharge home. The given the patient's multiple admissions for recurrent pyelonephritis and urinary tract infections I have recommended that she follow-up with Dr. napier for referral to Infectious Disease regarding a possible antibiotic suppressive therapy or other options. Patient is in agreement and will follow-up with her PCP for further discussion. Status at Discharge Cognitive/behavioral status at discharge: oriented Functional status at discharge: independent ambulation Overall status at discharge: patient is back to baseline Time Spent with Patient Time spent: Less than 30 minutes Exam Vital Signs (past 8 hours): - 12/10/19 04:56 12/10/19 08:00 Temperature 96.6 F L 97.3 F L Pulse Rate 77 78 Respiratory Rate 16 18 Blood Pressure 105/64 109/75 Pulse Oximetry 98 97 Oxygen Delivery Method Room Air Oxygen Flow Rate 0 Narrative Exam Narrative: Pleasant female in no acute distress Lungs: Clear to auscultation Cardiac exam: Regular rate and rhythm normal S1-S2 with a 2/6 systolic ejection murmur Abdomen: Soft and nontender, right lower quadrant urostomy in place draining clear urine, there is some sediment in the bag Extremity no edema Objective Labs Result Diagrams: 12/09/19 04:40 12/09/19 04:40 Discharge Assessment & Plan Assessment and Plan Assessment: 1. Acute pyelonephritis 2. Recurrent urinary tract infection Plan of Treatment: Discharge home on 7 days of levofloxacin Follow-up with Dr. Richmond as an outpatient for referral to infectious disease Discharge Plan Discharge Plan Patient Disposition: Home Discharge orders & Medications Prescriptions: New tramadol [Ultram] 50 mg tablet 50 mg PO TID PRN (Reason: pain) Qty: 20 RF: 0 levofloxacin 250 mg tablet 250 mg PO DAILY Qty: 7 RF: 0 Continued hydroxyzine HCl 25 MG tablet 50 mg PO BID Qty: 0 RF: 0 albuterol sulfate [Proventil HFA] 90 MCG/PUFF HFA aerosol inhaler 2 puff INH Q4HP PRN (Reason: Shortness Of Breath) Qty: 0 RF: 0 duloxetine 60 MG capsule,delayed release(DR/EC) 60 mg PO DAILY Qty: 0 RF: 0 gabapentin [Neurontin] 300 MG capsule 900 mg PO BID Qty: 0 RF: 0 multivitamin [Multiple Vitamins] 1 EACH tablet 1 tab PO DAILY Qty: 0 RF: 0 zolpidem [Ambien] 10 MG tablet 10 mg PO HS PRN (Reason: Insomnia) Qty: 0 RF: 0 lorazepam 0.5 mg tablet 0.5 mg PO DAILY RF: 0 methocarbamol 500 mg tablet 1,000 mg PO QID RF: 0 Humulin N NPH Insulin KwikPen 100 unit/mL (3 mL) insulin pen 10 unit SUBCUT BID RF: 0 Vitamin D3 Complete 2,000 units See Rx Instructions .ROUTE .COMPLEX RF: 0 quetiapine 100 mg Tablet 200 mg PO BEDTIME RF: 0 magnesium glycinate 100 mg Tablet 800 mg PO QPM RF: 0 melatonin 10 mg Tablet 20 mg PO BEDTIME RF: 0 lisinopril 10 mg tablet 10 mg PO DAILY RF: 0 omeprazole 20 mg capsule,delayed release(DR/EC) 20 mg PO DAILY RF: 0 ondansetron 4 mg tablet,disintegrating 1 tab Translingual Q6H PRN (Reason: Nausea) RF: 0 Probiotic 1 tab PO DAILY RF: 0 vitamin E 1 cap PO DAILY RF: 0 Discontinued potassium chloride 20 mEq tablet,ER particles/crystals 20 meq PO DAILY RF: 0 Follow up/Referrals: Fadi Ko DO [Primary Care Provider] - (Please call Doctor's office to make follow up appointment.) Discharge Health Status Health Concerns: folllow up with Dr. Ko for Infectious Disease referral regarding chronic suppressive therapy for recurrent infections Diet/Activity/Treatments Diet: Carb-consistent/Diabetic Activity: as tolerated Catheter comment: per usual recommendations Visit Report/Discharge Packet Instructions: DI for Kidney Infection, Tramadol, Levofloxacin, How to Use Antibiotics Wisely Visit Report Forms: Patient Portal/API, Stroke Signs & Symptoms Discharge Data Primary Care Provider: Fadi Ko Quality VTE Deep Vein Thrombosis/Pulmonary Embolism Present on Admission: No
--- NOTE | 2019-12-10 09:10 | PM.CHAP ---
Short visit with Pt and spouse. Was able to arrange a visit from Du Hernandez, freight receiver/counselor and long time friend. Pastor Hernandez visited on Tuesday night. Huge thank you to our weekend staff for allowing this visit! Pt remains, in her own words, fragile. I encouraged follow up counseling. Tommy Lau, [facility] [phone]
[2019-12-10 09:13] VITALS: PULSE 77; RESP 18; O2SAT 99
[2019-12-10] MEDS: ALBUTEROL HFA 200 PUFF/18 GM INH (COVID POS/VENT PTS) INH (09:14)
[2019-12-10] MEDS: NICOTINE 14 PATCH 14 MG TOP (09:17)
[2019-12-10] MEDS: DOCUSATE 100 MG CAPSULE PO (09:17)
[2019-12-10] MEDS: VITAMIN E 400 UNIT CAPSULE PO (09:17)
[2019-12-10] MEDS: LACTOBACILLUS ACIDOPHILUS TABLET 1 EACH PO (09:17)
[2019-12-10] MEDS: LORazepam 0.5 MG TABLET PO (09:18)
[2019-12-10] MEDS: methocarbamoL 500 MG TABLET 1000 MG PO (09:18)
[2019-12-10] MEDS: GABAPENTIN 300 MG CAPSULE 900 MG PO (09:18)
[2019-12-10] MEDS: MULTIVITAMIN 1 TABLET 1 TAB PO (09:18)
[2019-12-10] MEDS: DULOXETINE 30 MG CAPSULE 60 MG PO (09:18)
[2019-12-10] MEDS: lisinopriL 10 MG TABLET PO (09:19)
[2019-12-10] MEDS: hydrOXYzine pamoate 25 MG CAPSULE 50 MG PO (09:19)
[2019-12-10] MEDS: INSULIN NPH 100 UNIT/ML VIAL 10 UNIT SUBCUT (09:20)
--- NOTE | 2019-12-10 10:46 | CM.DPC ---
DCP continued: Reviewed chart. Per provider, patient medically stable for discharge today. Reviewed RAG ROOM SUPERVISOR notes indicating that MH referrals needed. Met with patient and spouse/Dwayne at bedside. Dwayne believes that he has received the resources but RAG ROOM SUPERVISOR provided them again with highlighted numbers. Encouraged that they initiate MH services SUDARSHAN. Patient and spouse agreeable. Patient has had multiple visits due to infection from urostomy tube, UTI's and pyelonephritis. During AM rounds provider mentioned close follow up with specialist and outside provider to prevent infection. Patient and spouse in agreement. Patient reports that she is sick of coming to the hospital. P: Home today. Mental Health resources provided. Patient and spouse encouraged to follow up. MYNOR Otoole
--- NOTE | 2019-12-10 11:13 | PC.NURSE ---
Discharge order received, and patient ready for discharge to home with her . Medicated with norco prior to discharge per patient's request for pain/discomfort on ride home. IV removed intact. Discharge instructions, medications, and home care handouts reviewed with patient and her and state understanding. Patient and her have no further questions or concerns at this time. Follow up scheduled by her for 12/18 with her PCP. Patient escorted out via wheelchair by FOILING MACHINE OPERATOR with all her belongings. Patient agrees to complete antibiotics as ordered.
--- NOTE | 2019-12-13 13:56 | CM.DPNOTE ---
TC from [place]. RN CM asking what was patient's dispo? She received DC Summary but calling to chk if patient left AMA vs DC; reviewed notes. Patient was DC home 9.20 w/outpt f/u recommended. JW
== END 2019-12-10 11:10 | disposition home or self-care (01) | DRG 690 ==
LOC: ED 11:01 → AC 14:11
PROVIDERS: Admitting Provider Internal Medicine; Emergency Provider Nurse Practitioner Family; PCP Family Medicine; Referring Provider Nurse Practitioner Family; Visit Provider Internal Medicine
DX: N10 Acute pyelonephritis (principal); T83.518A Infection and inflammatory reaction due to other urinary catheter, initial encounter; E87.5 Hyperkalemia; E11.9 Type 2 diabetes mellitus without complications; I10 Essential (primary) hypertension; J45.909 Unspecified asthma, uncomplicated; F41.9 Anxiety disorder, unspecified; F32.9 Major depressive disorder, single episode, unspecified; F17.210 Nicotine dependence, cigarettes, uncomplicated; B96.89 Other specified bacterial agents as the cause of diseases classified elsewhere; K21.9 Gastro-esophageal reflux disease without esophagitis; Z79.4 Long term (current) use of insulin; Z11.59 Encounter for screening for other viral diseases
CPT/HCPCS: 36415; 71046; 80048; 80053; 81001; 82150; 82550; 82962; 83605; 83690; 83735; 83880; 84145; 84484; 85025; 85610; 85730; 87040; 87077; 87086; 87186; 87635; 93005; 94640; 94760; 96361; 96365; 96375; 99284; 99406; A9270; J0696; J1170; J1650

== ENCOUNTER 2019-12-24 05:36 | Emergency (ER) | payer OTHER, SELFPAY ==
[2019-12-08 16:05] VITALS: BMI 16.6
[2019-12-24 05:37] VITALS: BP 193/88; PULSE 108; RESP 18; TEMP 36.9; O2SAT 100
[2019-12-24 05:48] VITALS: PULSE 105; O2SAT 100
[2019-12-24 05:53] LABS: RBC Urine None Seen (0-5/HPF)
--- NOTE | 2019-12-24 05:56 | ED.GENADULT ---
HPI - General Adult General Chief complaint: Urogenital-Female Stated complaint: POSSIBLE KIDNEY INFECTION Time Seen by Provider: 12/24/19 05:37 Source: patient Mode of arrival: Ambulatory Limitations: no limitations History of Present Illness HPI narrative: 54-year-old female with multiple chronic medical problems known to this emergency department here with bilateral kidney pain with right being greater than left and a concern for a kidney infection. Patient was admitted to this facility earlier this month after diagnosis of pyelonephritis. Received IV antibiotics. Was sent home with a seven-day course of Levaquin which she completed. She states that after she was discharged home the symptoms and brought her into the emergency department at that time had improved/resolved. The symptoms and bring her in today started yesterday. She states she consider coming to the emergency department yesterday but did not because she wanted to watch a football game. Overnight symptoms worsened. Nausea. No vomiting. She does have urostomy in place and stated that there was what appeared to pus coming from the urostomy opening. Took some Tylenol last evening. Was having chills. Has not had any fever reducing medications for approximately 9 hours. Related Data Home Medications Medication Instructions Recorded Confirmed albuterol sulfate [Proventil HFA] 2 puff INH Q4HP PRN #0 01/08/13 12/08/19 hydroxyzine HCl 50 mg PO BID #0 01/08/13 12/08/19 duloxetine 60 mg PO DAILY #0 07/04/17 12/08/19 gabapentin [Neurontin] 900 mg PO BID #0 07/04/17 12/08/19 multivitamin [Multiple Vitamins] 1 tab PO DAILY #0 07/04/17 12/08/19 zolpidem [Ambien] 10 mg PO HS PRN #0 07/04/17 12/08/19 Probiotic 1 tab PO DAILY 09/26/17 12/08/19 lisinopril 10 mg PO DAILY 09/26/17 12/08/19 omeprazole 20 mg PO DAILY 09/26/17 12/08/19 ondansetron 1 tab TRANSLINGUAL Q6H PRN 09/26/17 12/08/19 vitamin E 1 cap PO DAILY 09/26/17 12/08/19 lorazepam 0.5 mg PO DAILY 05/30/18 12/08/19 Humulin N NPH Insulin KwikPen 10 unit SUBCUT BID 05/17/19 12/08/19 methocarbamol 1,000 mg PO QID 05/17/19 12/08/19 Vitamin D3 Complete See Rx Instructions .ROUTE .COMPLEX 11/04/19 12/08/19 quetiapine 200 mg PO BEDTIME 11/04/19 12/08/19 magnesium glycinate 800 mg PO QPM 12/08/19 12/08/19 melatonin 20 mg PO BEDTIME 12/08/19 12/08/19 Previous Rx's Medication Instructions Recorded levofloxacin 250 mg PO DAILY #7 tab 12/10/19 ropinirole [Requip] 0.25 mg PO BEDTIME #30 tab 12/10/19 tramadol [Ultram] 50 mg PO TID PRN #20 tab 12/10/19 levofloxacin 750 mg PO DAILY 6 Days #6 tab 12/24/19 Allergies Allergy/AdvReac Type Severity Reaction Status Date / Time mupirocin Allergy Unknown Verified 10/11/19 15:56 naproxen Allergy Unknown Verified 10/11/19 15:56 Penicillins Allergy Unknown SINCE Verified 10/11/19 15:56 CHILDHOOD droperidol AdvReac Unknown Verified 10/11/19 15:56 fenofibrate [FENOFIBRATE] AdvReac Unknown Verified 10/11/19 15:56 ibuprofen AdvReac Unknown NAUSEA Verified 10/11/19 15:56 metformin [METFORMIN] AdvReac Unknown Verified 10/11/19 15:56 metoclopramide AdvReac Unknown BECAME Verified 10/11/19 15:56 JITTERY AND ANXIOUS nitrofurantoin AdvReac Unknown NAUSEA Verified 10/11/19 15:56 Review of Systems Constitutional Constitutional: Reports chills and Reports fever(s) Cardiovascular Cardiovascular: Denies chest pain and Denies dyspnea Respiratory Respiratory: Denies dyspnea Gastrointestinal Gastrointestinal: Denies abdominal pain Genitourinary Genitourinary: Reports flank pain Genitourinary: Reports flank pain Musculoskeletal Musculoskeletal: Denies myalgias Integumentary/Breasts Skin/Breast: Denies rash Neurologic Neurologic: Denies behavioral changes Psychiatric Psychiatric: Denies behavioral changes Hematologic/Lymphatic Hematologic/Lymphatic: Denies easy bleeding and Denies easy bruising Allergic/Immunologic Allergic/Immunologic: Denies urticaria Patient History Medical History Anxiety (Chronic) Closed fracture of left humerus (Inactive) Endometriosis (Chronic) Fibromyalgia (Chronic) Heart palpitations (Chronic) History of asthma (Chronic) History of chronic hypertension (Chronic) History of COPD (Chronic) History of depression (Chronic) History of gastrointestinal ulcer (Chronic) History of kidney stones (Chronic) History of migraine (Chronic) History of panic attacks (Chronic) History of type 2 diabetes mellitus (Chronic) Hyperlipidemia (Acute) Interstitial cystitis (Chronic) UTI (urinary tract infection) (Chronic) Surgical History History of urostomy (Acute) S/P appendectomy (Resolved) Status post hysterectomy (Resolved) Status post left rotator cuff repair (Acute) Family History Mother Diabetes mellitus Lupus Social History household members: spouse Smoking Status: Current every day smoker alcohol intake: current Smoking Status: Current every day smoker alcohol intake frequency: holidays/special occasions only Substance Use Type: former substance user and marijuana Exam Initial Vital Signs Initial Vital Signs: Vital Signs Temperature 98.4 F 12/24/19 05:37 Pulse Rate 108 H 12/24/19 05:37 Respiratory Rate 18 12/24/19 05:37 Blood Pressure 193/88 H 12/24/19 05:37 Pulse Oximetry 100 12/24/19 05:37 Const General: cooperative Limitations: mental status not altered HENMT Head: normal to inspection and normocephalic Resp Effort & Inspection: normal respiratory effort Auscultation: clear to auscultation bilaterally Cardio Rate: tachycardic Rhythm: regular rhythm GI Inspection: non-distended Palpation: soft Back/Spine/Pelvis Back: CVA tenderness right Skin Lesions: no lesions Rashes: no rashes Neuro General: patient alert, patient awake and patient oriented x3 Cognition: normal cognition Speech: speech normal Extrem General: normal to inspection and capillary refill normal Psych Appearance: grossly normal and well kempt Scores GCS Eva coma scale eye opening: Spontaneous [place] coma scale verbal response: Orientated [place] coma scale motor response: Obey commands [place] coma scale total score: 15 Course Orders Ordered: ED Orders 12/24/19 05:44 Urinalysis and Microscopic Stat Urine Culture Stat 12/24/19 06:20 Complete Blood Count AUTO DIFF Stat Comprehensive Metabolic Panel Stat Lactate (Lactic Acid) Stat Lipase Stat Procalcitonin Stat Discontinued Medications Levofloxacin (Levaquin) 750 mg PO NOW ONE Stop: 12/24/19 06:44 Last Admin: 12/24/19 06:46 Dose: 750 mg Documented by: NARENDRA Vital Signs Vital signs: Vital Signs - 8 hr 12/24/19 05:37 Temperature 98.4 F Pulse Rate 108 H Respiratory Rate 18 Blood Pressure 193/88 H Pulse Oximetry 100 Medical Decision Making Medical Records Medical records reviewed: Yes I reviewed the patient's medical records. Lab Data Lab results reviewed: Yes I reviewed the patient's lab results. Result diagrams: 12/24/19 06:20 12/24/19 06:20 Labs: Lab Results 12/24/19 12/24/19 12/24/19 Range/Units 05:44 06:20 06:20 WBC 7.0 (4.5-11.0) X10^3/uL RBC 3.76 L (4.0-5.2) X10^6/uL Hgb 13.0 (12.0-16.0) g/dL Hct 38.0 (36-46) % MCV 101.1 H (80-100) fL MCH 34.6 H (26-34) PG MCHC 34.2 (30-36) % RDW 13.3 (11.6-14.8) % Plt Count 427 H (150-400) X10^3/uL Neut % (Auto) 58.2 (50-75) % Lymph % (Auto) 31.1 (25-40) % [place] % (Auto) 8.2 (3-14) % Eos % (Auto) 1.2 L (2-4) % Baso % (Auto) 1.3 (0-2) % Neut # (Auto) 4100 (9672-8900) /uL Lymph # (Auto) 2200 (9635-9244) /uL [place] # (Auto) 600 (0-900) /uL Eos # (Auto) 100 (0-450) /uL Baso # (Auto) 100 (0-100) /uL Sodium 136 L (137-145) mmol/L Potassium 4.3 (3.4-5.1) mmol/L Chloride 102 (98-107) mmol/L Carbon Dioxide 24 (22-32) mmol/L BUN 13 (7-17) mg/dL Creatinine 0.62 (0.52-1.04) mg/dL Estimated GFR > 60.0 (>60) mL/min BUN/Creatinine Ratio 21.0 (6-22) Glucose 235 H (70-100) mg/dL Lactate (0.7-2.1) mmol/L Calcium 9.8 (8.4-10.2) mg/dL Total Bilirubin 0.5 (0.2-1.3) mg/dL AST 33 (14-36) IU/L ALT 31 (<35) IU/L Alkaline Phosphatase 200 H (38-126) U/L Total Protein 8.1 (6.3-8.2) g/dL Albumin 4.3 (3.5-5.0) g/dL Globulin 3.8 (1.7-4.1) g/dL Albumin/Globulin Ratio 1.1 (1.0-2.8) Lipase 28 (23-300) U/L Urine Color Yellow Urine Appearance Clear Urine pH 7.0 (4.5-8.0) Ur Specific [place] 1.010 (1.000-1.035) Urine Protein Negative (Negative) Urine Glucose (UA) Negative (Negative) g/dL Urine Ketones Negative (NEGATIVE) Urine Occult Blood Trace-lysed (Negative) Urine Nitrate Positive H (Negative) Urine Bilirubin Negative (NEGATIVE) Urine Urobilinogen 0.2 (0.2) E.U./dL Ur Leukocyte Esterase Negative (NEGATIVE) Urine RBC None seen (0-5/HPF) Urine WBC 1-5/hpf (0-5/HPF) Urine Bacteria Many (>30) H (None) Ur Culture Indicated? Culture not indicate 12/24/19 Range/Units 06:20 WBC (4.5-11.0) X10^3/uL RBC (4.0-5.2) X10^6/uL Hgb (12.0-16.0) g/dL Hct (36-46) % MCV (80-100) fL MCH (26-34) PG MCHC (30-36) % RDW (11.6-14.8) % Plt Count (150-400) X10^3/uL Neut % (Auto) (50-75) % Lymph % (Auto) (25-40) % [place] % (Auto) (3-14) % Eos % (Auto) (2-4) % Baso % (Auto) (0-2) % Neut # (Auto) (2846-9494) /uL Lymph # (Auto) (2374-4906) /uL [place] # (Auto) (0-900) /uL Eos # (Auto) (0-450) /uL Baso # (Auto) (0-100) /uL Sodium (137-145) mmol/L Potassium (3.4-5.1) mmol/L Chloride (98-107) mmol/L Carbon Dioxide (22-32) mmol/L BUN (7-17) mg/dL Creatinine (0.52-1.04) mg/dL Estimated GFR (>60) mL/min BUN/Creatinine Ratio (6-22) Glucose (70-100) mg/dL Lactate 2.2 H (0.7-2.1) mmol/L Calcium (8.4-10.2) mg/dL Total Bilirubin (0.2-1.3) mg/dL AST (14-36) IU/L ALT (<35) IU/L Alkaline Phosphatase (38-126) U/L Total Protein (6.3-8.2) g/dL Albumin (3.5-5.0) g/dL Globulin (1.7-4.1) g/dL Albumin/Globulin Ratio (1.0-2.8) Lipase (23-300) U/L Urine Color Urine Appearance Urine pH (4.5-8.0) Ur Specific [place] (1.000-1.035) Urine Protein (Negative) Urine Glucose (UA) (Negative) g/dL Urine Ketones (NEGATIVE) Urine Occult Blood (Negative) Urine Nitrate (Negative) Urine Bilirubin (NEGATIVE) Urine Urobilinogen (0.2) E.U./dL Ur Leukocyte Esterase (NEGATIVE) Urine RBC (0-5/HPF) Urine WBC (0-5/HPF) Urine Bacteria (None) Ur Culture Indicated? MDM Narrative Medical decision making narrative: Patient did have a relatively benign abdominal exam. She was afebrile greater than 9 hours after taking any fever reducing medication. She did not have a leukocytosis. Her urinalysis was nitrite positive and did have bacteria. This is difficult to determine whether not she is having an infection or whether not she is colonized. Given the symptoms that she is describing a feel that treating her for urinary tract infection is not unreasonable. She was given a 1st dose here in the ER and was sent home with a prescription for the remainder. Review of her prior urine cultures shows multiple different types of bacteria. Most of these prior urine cultures grew bacteria that was susceptible to Levaquin. This is what she was discharged home with during her last stay for pyelonephritis and seem to help her symptoms that time. Patient became somewhat agitated. She stated that she wanted to be discharged home. She states she would just rather go home and be in discomfort. I offered her Tylenol and she stated that this medicine does not work for her. Offered her Toradol and again she declined. I feel that avoiding opioid medications his best given her history. She no longer wanted to stay and was discharged prior to the return of all of her laboratory tests. She was given return precautions. She expressed understanding and agreement. Discharge Plan Departure Patient Disposition: Home Clinical Impression: UTI (urinary tract infection), Acute right flank pain Instructions: DI for Urinary Tract Infection (UTI) Activity Restrictions/Additional Instructions: You decided to leave prior to all of your labs resulting. The urinalysis that we did today did have some findings that are concerning for a urinary tract infection. I feel given your history the treating you with an antibiotic is needed. You were given your 1st dose here in the emergency department. The remainder of the course of antibiotics was electronically transmitted to [facility]. Please start taking it on 12/25/19. I recommend that you continue with the pursue to for referral to see infectious disease. I recommend you contact your primary doctor today for follow-up. Prescriptions: New levofloxacin 750 mg tablet 750 mg PO DAILY 6 Days Qty: 6 RF: 0 No Action hydroxyzine HCl 25 MG tablet 50 mg PO BID Qty: 0 RF: 0 albuterol sulfate [Proventil HFA] 90 MCG/PUFF HFA aerosol inhaler 2 puff INH Q4HP PRN (Reason: Shortness Of Breath) Qty: 0 RF: 0 duloxetine 60 MG capsule,delayed release(DR/EC) 60 mg PO DAILY Qty: 0 RF: 0 gabapentin [Neurontin] 300 MG capsule 900 mg PO BID Qty: 0 RF: 0 multivitamin [Multiple Vitamins] 1 EACH tablet 1 tab PO DAILY Qty: 0 RF: 0 zolpidem [Ambien] 10 MG tablet 10 mg PO HS PRN (Reason: Insomnia) Qty: 0 RF: 0 lorazepam 0.5 mg tablet 0.5 mg PO DAILY RF: 0 methocarbamol 500 mg tablet 1,000 mg PO QID RF: 0 Humulin N NPH Insulin KwikPen 100 unit/mL (3 mL) insulin pen 10 unit SUBCUT BID RF: 0 Vitamin D3 Complete 2,000 units See Rx Instructions .ROUTE .COMPLEX RF: 0 quetiapine 100 mg Tablet 200 mg PO BEDTIME RF: 0 magnesium glycinate 100 mg Tablet 800 mg PO QPM RF: 0 melatonin 10 mg Tablet 20 mg PO BEDTIME RF: 0 levofloxacin 250 mg tablet 250 mg PO DAILY Qty: 7 RF: 0 tramadol [Ultram] 50 mg tablet 50 mg PO TID PRN (Reason: pain) Qty: 20 RF: 0 ropinirole [Requip] 0.25 mg tablet 0.25 mg PO BEDTIME Qty: 30 RF: 0 lisinopril 10 mg tablet 10 mg PO DAILY RF: 0 omeprazole 20 mg capsule,delayed release(DR/EC) 20 mg PO DAILY RF: 0 ondansetron 4 mg tablet,disintegrating 1 tab Translingual Q6H PRN (Reason: Nausea) RF: 0 Probiotic 1 tab PO DAILY RF: 0 vitamin E 1 cap PO DAILY RF: 0 Referrals: Fadi Ko DO [Primary Care Provider] -
[2019-12-24 05:58] LABS: Appearance Urine UA CLEAR; Bilirubin Urine UA NEGATIVE (NEGATIVE); Color Urine UA YELLOW; Glucose Urine UA NEGATIVE (Negative); Ketones Urine UA NEGATIVE (NEGATIVE); Leukocyte Esterase Urine UA NEGATIVE (NEGATIVE); Nitrite Urine UA POSITIVE (Negative); Occult Blood Urine UA TRACE-LYSED (Negative); Protein Urine UA NEGATIVE (Negative); Urobilinogen Urine UA 0.2 E.U./dL (0.2)
[2019-12-24 06:00] VITALS: BP 169/93; PULSE 99; O2SAT 100
[2019-12-24 06:17] LABS: Bacteria Urine Many (>30); WBC Urine 1-5/HPF (0-5/HPF)
[2019-12-24 06:30] VITALS: BP 169/89
[2019-12-24 06:36] LABS: Add Manual Diff / Slide Review NO; Basophils Absolute Auto 100 /uL (0-100); Basophils Percent Auto 1.3 % (0-2); Eosinophils Absolute Auto 100 /uL (0-450); Eosinophils Percent Auto 1.2 % (2-4); Lymphocytes Absolute Auto 2200 /uL (1100-4500); Lymphocytes Percent Auto 31.1 % (25-40); Mean Corpuscular HGB Conc 34.2 % (30-36); Mean Corpuscular Hemoglobin 34.6 PG (26-34); Mean Corpuscular Volume 101.1 fL (80-100); Monocytes Absolute Auto 600 /uL (0-900); Monocytes Percent Auto 8.2 % (3-14); Neutrophils Absolute Auto 4100 /uL (1500-7000); Neutrophils Percent Auto 58.2 % (50-75); Platelet Count 427 X10^3/uL (150-400); Red Blood Cell Count 3.76 X10^6/uL (4.0-5.2); Red Cell Distribution Width 13.3 % (11.6-14.8)
--- NOTE | 2019-12-24 06:45 | PC.NURSE ---
Patient manager electronic light. Stating would like to leave. Provider explained to patient that still awaiting lab results, patient confirmed understanding but stated still wanted to leave.
[2019-12-24 06:46] LABS: Lactate (Lactic Acid) 2.2 mmol/L (0.7-2.1)
[2019-12-24] MEDS: levoFLOXacin 250 MG TABLET 750 MG PO (06:46)
[2019-12-24 06:47] LABS: Alanine Aminotransferase 31 IU/L (<35); Albumin 4.3 g/dL (3.5-5.0); Albumin Globulin Ratio 1.1 (1.0-2.8); Alkaline Phosphatase 200 U/L (38-126); Aspartate Aminotransferase 33 IU/L (14-36); Bilirubin Total 0.5 mg/dL (0.2-1.3); Blood Urea Nitrogen 13 mg/dL (7-17); Calcium 9.8 mg/dL (8.4-10.2); Carbon Dioxide 24 mmol/L (22-32); Chloride 102 mmol/L (98-107); Estimated Glomerular Filt Rate > 60.0 mL/min (>60); Globulin 3.8 g/dL (1.7-4.1); Glucose 235 mg/dL (70-100); HEMOLYSIS < 15 (0-50); Lipase 28 U/L (23-300); Potassium 4.3 mmol/L (3.4-5.1); Sodium 136 mmol/L (137-145); Total Protein 8.1 g/dL (6.3-8.2)
[2019-12-24 07:03] LABS: Procalcitonin < 0.05 ng/mL (<0.5)
[2019-12-24 08:30] LABS: Reflexed Lactate in 2 Hours Y
== END 2019-12-24 06:51 | disposition home or self-care (01) ==
PROVIDERS: Emergency Provider Emergency Medicine; PCP Family Medicine
DX: N39.0 Urinary tract infection, site not specified (principal)
CPT/HCPCS: 36415; 80053; 81001; 83605; 83690; 84145; 85025; 87077; 87086; 87185; 87186; 99281; 99283

== ENCOUNTER 2019-12-24 09:43 | Emergency (ER) | payer OTHER, SELFPAY ==
[2019-12-08 16:05] VITALS: BMI 16.6
[2019-12-24 09:51] VITALS: BP 162/82; PULSE 104; RESP 20; TEMP 36.6; O2SAT 98
--- NOTE | 2019-12-24 10:03 | ED.FEMALEGU ---
HPI - Female Genitourinary General Chief complaint: Urogenital-Female Stated complaint: ETOH, combative Time Seen by Provider: 12/24/19 09:48 Source: patient and EMS Mode of arrival: EMS Limitations: no limitations History of Present Illness HPI Narrative: Patient is a 54-year-old female with multiple chronic issues. She was admitted earlier this month for sepsis and pyelonephritis. She has recurrent pyelonephritis and has history of urostomy. She received IV antibiotics with sent home with a 7 day course of Levaquin on 12/10/2019. She was actually seen here at last evening, she was denied delighted for pain at that time. She had no leukocytosis or fever but she does have nitrates and leuks in her urine culture is pending. It was unclear if patient is colonized or not. The patient went home head says that she had 2 shots of alcohol she passed out and was blocking the doorway her daughter was unable to get in. EMS was called. She is now combative and stating that her kidneys hurt. Related Data Home Medications Medication Instructions Recorded Confirmed albuterol sulfate [Proventil HFA] 2 puff INH Q4HP PRN #0 01/08/13 12/08/19 hydroxyzine HCl 50 mg PO BID #0 01/08/13 12/08/19 duloxetine 60 mg PO DAILY #0 07/04/17 12/08/19 gabapentin [Neurontin] 900 mg PO BID #0 07/04/17 12/08/19 multivitamin [Multiple Vitamins] 1 tab PO DAILY #0 07/04/17 12/08/19 zolpidem [Ambien] 10 mg PO HS PRN #0 07/04/17 12/08/19 Probiotic 1 tab PO DAILY 09/26/17 12/08/19 lisinopril 10 mg PO DAILY 09/26/17 12/08/19 omeprazole 20 mg PO DAILY 09/26/17 12/08/19 ondansetron 1 tab TRANSLINGUAL Q6H PRN 09/26/17 12/08/19 vitamin E 1 cap PO DAILY 09/26/17 12/08/19 lorazepam 0.5 mg PO DAILY 05/30/18 12/08/19 Humulin N NPH Insulin KwikPen 10 unit SUBCUT BID 05/17/19 12/08/19 methocarbamol 1,000 mg PO QID 05/17/19 12/08/19 Vitamin D3 Complete See Rx Instructions .ROUTE .COMPLEX 11/04/19 12/08/19 quetiapine 200 mg PO BEDTIME 11/04/19 12/08/19 magnesium glycinate 800 mg PO QPM 12/08/19 12/08/19 melatonin 20 mg PO BEDTIME 12/08/19 12/08/19 Previous Rx's Medication Instructions Recorded levofloxacin 250 mg PO DAILY #7 tab 12/10/19 ropinirole [Requip] 0.25 mg PO BEDTIME #30 tab 12/10/19 tramadol [Ultram] 50 mg PO TID PRN #20 tab 12/10/19 levofloxacin 750 mg PO DAILY 6 Days #6 tab 12/24/19 levofloxacin 750 mg PO DAILY 7 Days tab 12/24/19 Allergies Allergy/AdvReac Type Severity Reaction Status Date / Time mupirocin Allergy Unknown Verified 10/11/19 15:56 naproxen Allergy Unknown Verified 10/11/19 15:56 Penicillins Allergy Unknown SINCE Verified 10/11/19 15:56 CHILDHOOD droperidol AdvReac Unknown Verified 10/11/19 15:56 fenofibrate [FENOFIBRATE] AdvReac Unknown Verified 10/11/19 15:56 ibuprofen AdvReac Unknown NAUSEA Verified 10/11/19 15:56 metformin [METFORMIN] AdvReac Unknown Verified 10/11/19 15:56 metoclopramide AdvReac Unknown BECAME Verified 10/11/19 15:56 JITTERY AND ANXIOUS nitrofurantoin AdvReac Unknown NAUSEA Verified 10/11/19 15:56 Review of Systems Review of Systems Narrative: Patient is not cooperating ROS Unobtainable: Unobtainable due to mental condition Patient History Medical History Anxiety (Chronic) Closed fracture of left humerus (Inactive) Endometriosis (Chronic) Fibromyalgia (Chronic) Heart palpitations (Chronic) History of asthma (Chronic) History of chronic hypertension (Chronic) History of COPD (Chronic) History of depression (Chronic) History of gastrointestinal ulcer (Chronic) History of kidney stones (Chronic) History of migraine (Chronic) History of panic attacks (Chronic) History of type 2 diabetes mellitus (Chronic) Hyperlipidemia (Acute) Interstitial cystitis (Chronic) UTI (urinary tract infection) (Chronic) Surgical History History of urostomy (Acute) S/P appendectomy (Resolved) Status post hysterectomy (Resolved) Status post left rotator cuff repair (Acute) Family History Mother Diabetes mellitus Lupus alcohol intake frequency: holidays/special occasions only Substance Use Type: former substance user and marijuana Exam Initial Vital Signs Initial Vital Signs: Vital Signs Temperature 97.9 F 12/24/19 09:51 Pulse Rate 104 H 12/24/19 09:51 Respiratory Rate 20 12/24/19 09:51 Blood Pressure 162/82 H 12/24/19 09:51 Pulse Oximetry 98 12/24/19 09:51 GENERAL: Combative chronically ill female and in no acute distress. HEENT: Head atraumatic,EOMI, pupils reactive, face symmetric, moist mucous membranes CARDIOVASCULAR: Regular rate and rhythm without murmurs, rubs or gallops. RESPIRATORY: Breath sounds equal bilaterally, no wheezes rales or rhonchi. ABDOMEN: Soft, nontender. Normoactive bowel sounds all 4 quadrants. No guarding or rebound. : Urostomy bag EXTREMITIES: Normal range of motion, no clubbing or edema. Neurovascularly intact NEUROLOGICAL: Alert and oriented x4.Normal gait and speech. SKIN: Warm, dry, no laceration, no petechiae, no rashes or lesions. Course Orders Ordered: Discontinued Medications Acetaminophen (Tylenol) 975 mg PO NOW ONE Stop: 12/24/19 09:53 Last Admin: 12/24/19 10:20 Dose: Not Given Documented by: MMINOR Lorazepam (Ativan) 1 mg IV NOW ONE Stop: 12/24/19 09:51 Last Admin: 12/24/19 10:19 Dose: Not Given Documented by: MMINOR Consultations Consultation #1: , patient has nitrites and leukocytes no sign of pyelo agrees that another course of antibiotics is necessary. Time: 10:32 Vital Signs Vital signs: Vital Signs - 8 hr 12/24/19 09:51 Temperature 97.9 F Pulse Rate 104 H Respiratory Rate 20 Blood Pressure 162/82 H Pulse Oximetry 98 MDM - Female Genitourinary MDM Narrative Medical decision making narrative: Patient is quite combative and agitated refusing Ativan and Tylenol for pain. She had blood work done just a few hours prior no leukocytosis she remains afebrile. He is refusing help blood work which honestly does not need to be redrawn. Antibiotics are indicated after discussing with hospitalist. Will write her again for Levaquin see if it helps. Levaquin is based on previous culture. Culture from earlier today is still pending. Patient is clinically sober and ambulating without difficulty. Left prior to discharge papers. Her came and picked up her prescription and paperwork Discharge Plan Departure Patient Disposition: Home Clinical Impression: UTI (urinary tract infection) Discharge Date/Time: 12/24/19 10:40 Instructions: DI for Urinary Tract Infection (UTI) Activity Restrictions/Additional Instructions: *You have been diagnosed with UTI recurrent *What to do: Please take antibiotics and follow-up with a urologist *Continue to take medications as directed Levaquin 750 mg once a day for 7 days *Follow up with your primary care provider in 2-3 days CALL YOUR UROLOGIST AND FOLLOW UP THIS WEEK *Return to ER if you should have any new, worsening or concerning symptoms Prescriptions: New levofloxacin 750 mg tablet 750 mg PO DAILY 7 Days RF: 0 No Action hydroxyzine HCl 25 MG tablet 50 mg PO BID Qty: 0 RF: 0 albuterol sulfate [Proventil HFA] 90 MCG/PUFF HFA aerosol inhaler 2 puff INH Q4HP PRN (Reason: Shortness Of Breath) Qty: 0 RF: 0 duloxetine 60 MG capsule,delayed release(DR/EC) 60 mg PO DAILY Qty: 0 RF: 0 gabapentin [Neurontin] 300 MG capsule 900 mg PO BID Qty: 0 RF: 0 multivitamin [Multiple Vitamins] 1 EACH tablet 1 tab PO DAILY Qty: 0 RF: 0 zolpidem [Ambien] 10 MG tablet 10 mg PO HS PRN (Reason: Insomnia) Qty: 0 RF: 0 lorazepam 0.5 mg tablet 0.5 mg PO DAILY RF: 0 methocarbamol 500 mg tablet 1,000 mg PO QID RF: 0 Humulin N NPH Insulin KwikPen 100 unit/mL (3 mL) insulin pen 10 unit SUBCUT BID RF: 0 Vitamin D3 Complete 2,000 units See Rx Instructions .ROUTE .COMPLEX RF: 0 quetiapine 100 mg Tablet 200 mg PO BEDTIME RF: 0 magnesium glycinate 100 mg Tablet 800 mg PO QPM RF: 0 melatonin 10 mg Tablet 20 mg PO BEDTIME RF: 0 levofloxacin 250 mg tablet 250 mg PO DAILY Qty: 7 RF: 0 tramadol [Ultram] 50 mg tablet 50 mg PO TID PRN (Reason: pain) Qty: 20 RF: 0 ropinirole [Requip] 0.25 mg tablet 0.25 mg PO BEDTIME Qty: 30 RF: 0 lisinopril 10 mg tablet 10 mg PO DAILY RF: 0 omeprazole 20 mg capsule,delayed release(DR/EC) 20 mg PO DAILY RF: 0 ondansetron 4 mg tablet,disintegrating 1 tab Translingual Q6H PRN (Reason: Nausea) RF: 0 Probiotic 1 tab PO DAILY RF: 0 vitamin E 1 cap PO DAILY RF: 0 levofloxacin 750 mg tablet 750 mg PO DAILY 6 Days Qty: 6 RF: 0 Referrals: Fadi Ko DO [Primary Care Provider] -
--- NOTE | 2019-12-24 10:12 | PC.NURSE ---
Pt yelling obscenities / calling nurses names. Verbally redirected by this RN. Reviewed that abusive behavior was not acceptable. Pt emptying urostomy on floor despite ability to empty in present and in reach urinal. Refused medications as ordered. Given reassurance and warm blanker. IV placed in field, does not flush, no blood return, discontinued. Lab called for draw.
--- NOTE | 2019-12-24 10:16 | PC.NURSE ---
Pt seen and discharged today from ED. Pt states she is VERY ANGRY that she did not get more pain medication. Requesting narcotic pain medication. Refused non narcotic / non pharmacological interventions. Denies SI/HI. + Slurred speech. Report from field is that she had been drinking etoh.
--- NOTE | 2019-12-24 10:36 | PC.NURSE ---
Pt left ED. Steady gait. is picking her up. She states she does not want to wait in the ED.
--- NOTE | 2019-12-24 11:39 | PC.NURSE ---
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 Not concerned, believe she may have taken a cab home. Gave him discharge instructions as well as patient prescription.
== END 2019-12-24 10:40 | disposition home or self-care (01) ==
PROVIDERS: Emergency Provider Emergency Medicine; PCP Family Medicine
DX: N39.0 Urinary tract infection, site not specified (principal)

== ENCOUNTER 2020-02-20 04:48 | Emergency (ER) | payer OTHER, SELFPAY ==
[2019-12-08 16:05] VITALS: BMI 16.6
[2020-02-20 05:00] VITALS: BP 131/73; PULSE 100; RESP 18; TEMP 36.6; O2SAT 100
--- NOTE | 2020-02-20 05:07 | DI.RAD.S_ITS ---
PROCEDURE: XR RIBS RT MIN 3V W CXR 1V INDICATIONS: fall rib pain TECHNIQUE: 2 views of the right ribs were acquired, along with a single view chest. COMPARISON: [facility], CR, XR RIBS RT MIN 3V W CXR 1V, 10/04/2018, 13:51. FINDINGS: Surgical changes and devices: Cholecystectomy clips.. Bones and chest wall: No fractures or dislocations. No suspicious bony lesions. Overlying soft tissues appear unremarkable. Lungs and pleura: No pleural effusions or pneumothorax. Lungs appear clear. Mediastinum: Mediastinal contours appear normal. Heart size is normal. IMPRESSION: No displaced rib fracture. No acute cardiopulmonary disease process. Dictated by: Tara Oshea MD, PhD on 02/20/2020 at 7:44 Approved by: Tara Oshea MD, PhD on 02/20/2020 at 7:45
--- NOTE | 2020-02-20 05:12 | ED.BACK ---
HPI - Back Pain/Injury General Chief Complaint: Back Pain/Injury Stated Complaint: right shoulder injury tripped over dog and fell Time Seen by Provider: 02/20/20 05:04 Source: patient Limitations: no limitations History of Present Illness HPI Narrative: Who reports with right-sided rib pain. She statesThe family dog who does not hear very well and landed on her right side injuring her right ribs and right wrist. She says it hurts every time she breathes or moves in her ribs seem to be her most. She is requesting a shot for pain. She is offered Toradol and she denies. MD Complaint: other (Rib pain) Related Data Home Medications Medication Instructions Recorded Confirmed albuterol sulfate [Proventil HFA] 2 puff INH Q4HP PRN #0 01/08/13 12/08/19 hydroxyzine HCl 50 mg PO BID #0 01/08/13 12/08/19 duloxetine 60 mg PO DAILY #0 07/04/17 12/08/19 gabapentin [Neurontin] 900 mg PO BID #0 07/04/17 12/08/19 multivitamin [Multiple Vitamins] 1 tab PO DAILY #0 07/04/17 12/08/19 zolpidem [Ambien] 10 mg PO HS PRN #0 07/04/17 12/08/19 Probiotic 1 tab PO DAILY 09/26/17 12/08/19 lisinopril 10 mg PO DAILY 09/26/17 12/08/19 omeprazole 20 mg PO DAILY 09/26/17 12/08/19 ondansetron 1 tab TRANSLINGUAL Q6H PRN 09/26/17 12/08/19 vitamin E 1 cap PO DAILY 09/26/17 12/08/19 lorazepam 0.5 mg PO DAILY 05/30/18 12/08/19 Humulin N NPH Insulin KwikPen 10 unit SUBCUT BID 05/17/19 12/08/19 methocarbamol 1,000 mg PO QID 05/17/19 12/08/19 Vitamin D3 Complete See Rx Instructions .ROUTE .COMPLEX 11/04/19 12/08/19 quetiapine 200 mg PO BEDTIME 11/04/19 12/08/19 magnesium glycinate 800 mg PO QPM 12/08/19 12/08/19 melatonin 20 mg PO BEDTIME 12/08/19 12/08/19 Previous Rx's Medication Instructions Recorded levofloxacin 250 mg PO DAILY #7 tab 12/10/19 ropinirole [Requip] 0.25 mg PO BEDTIME #30 tab 12/10/19 tramadol [Ultram] 50 mg PO TID PRN #20 tab 12/10/19 Allergies Allergy/AdvReac Type Severity Reaction Status Date / Time mupirocin Allergy Unknown Verified 10/11/19 15:56 naproxen Allergy Unknown Verified 10/11/19 15:56 Penicillins Allergy Unknown SINCE Verified 10/11/19 15:56 CHILDHOOD droperidol AdvReac Unknown Verified 10/11/19 15:56 fenofibrate [FENOFIBRATE] AdvReac Unknown Verified 10/11/19 15:56 ibuprofen AdvReac Unknown NAUSEA Verified 10/11/19 15:56 metformin [METFORMIN] AdvReac Unknown Verified 10/11/19 15:56 metoclopramide AdvReac Unknown BECAME Verified 10/11/19 15:56 JITTERY AND ANXIOUS nitrofurantoin AdvReac Unknown NAUSEA Verified 10/11/19 15:56 Review of Systems Review of Systems ROS Unobtainable: All systems reviewed & are unremarkable except as noted in HPI and below Constitutional Constitutional: Denies chills, Denies fever(s), Denies lethargy and Denies weakness Eyes Eyes: Denies change in vision, Denies eye discharge, Denies irritation and Denies loss of vision Cardiovascular Cardiovascular: Denies chest pain, Denies irregular heart rhythm, Denies lightheadedness, Denies palpitations and Denies orthopnea Respiratory Respiratory: Reports as per HPI Gastrointestinal Gastrointestinal: Denies abdominal pain, Denies change in bowel habits, Denies diarrhea, Denies nausea and Denies vomiting Musculoskeletal Musculoskeletal: Reports system reviewed and no additional complaints, except as documented, Denies deformity and Reports arthralgias (Right wrist also hurts) Integumentary/Breasts Skin/Breast: Denies pruritus, Denies erythema, Denies rash and Denies wounds Neurologic Neurologic: Denies loss of vision and Denies weakness Endocrine Endocrine: Denies palpitations Patient History Medical History (Updated 02/20/20 @ 05:18 by Vivi Montoya DO) Anxiety Closed fracture of left humerus Endometriosis Fibromyalgia Heart palpitations History of asthma History of chronic hypertension History of COPD History of depression History of gastrointestinal ulcer History of kidney stones History of migraine History of panic attacks History of type 2 diabetes mellitus Hyperlipidemia Interstitial cystitis UTI (urinary tract infection) Surgical History History of urostomy S/P appendectomy Status post hysterectomy Status post left rotator cuff repair Family History Mother Diabetes mellitus Lupus Social History household members: spouse Smoking Status: Current every day smoker alcohol intake: current Smoking Status: Current every day smoker alcohol intake frequency: holidays/special occasions only Substance Use Type: former substance user and marijuana Exam Initial Vital Signs Initial Vital Signs: Vital Signs Temperature 97.9 F 02/20/20 05:00 Pulse Rate 100 H 02/20/20 05:00 Respiratory Rate 18 02/20/20 05:00 Blood Pressure 131/73 02/20/20 05:00 Pulse Oximetry 100 02/20/20 05:00 GENERAL: Well-appearing, well-nourished and in no acute distress. HEENT: Head atraumatic,EOMI, pupils reactive, face symmetric, moist mucous membranes CARDIOVASCULAR: Regular rate and rhythm without murmurs, rubs or gallops. RESPIRATORY: Breath sounds equal bilaterally, no wheezes rales or rhonchi. No paradoxical movement. No rash contusion or sign of injury ABDOMEN: Soft, nontender. Normoactive bowel sounds all 4 quadrants. No guarding or rebound. EXTREMITIES: Normal range of motion, no clubbing or edema. Neurovascularly intact Right wrist no gross bony deformity peripheral pulse in tact seems to be moving it quite easily pointing at her right ribs NEUROLOGICAL: Alert and oriented x4.Normal gait and speech. Cranial nerves II through XII grossly intact. SKIN: Warm, dry, no laceration, no petechiae, no rashes or lesions. Course Orders Ordered: ED Orders 02/20/20 05:07 XR ribs RT min 3V w CXR1V Stat Vital Signs Vital signs: Vital Signs - 8 hr 02/20/20 05:00 Temperature 97.9 F Pulse Rate 100 H Respiratory Rate 18 Blood Pressure 131/73 Pulse Oximetry 100 MDM - Back Pain/Injury Imaging Data Chest x-ray: Attestation: I personally reviewed and interpreted this imaging study as follows: My Impression: Rib x-ray does not reveal any rib fracture Radiologist's Impression: Preliminary report: No displaced acute right rib fracture seen. No active cardiopulmonary pathology MDM Narrative Medical decision making narrative: She is offered Toradol wet refuses. Discharge Plan Departure Patient Disposition: Home Clinical Impression: Contusion of rib on right side Qualifiers: Encounter type: initial encounter Qualified Code(s): S20.211A - Contusion of right front wall of thorax, initial encounter Instructions: DI for Rib Contusion Activity Restrictions/Additional Instructions: *You have been diagnosed with right rib contusion *What to do: No fracture broken bone is seen at this time on your rib. This can still take a few weeks to heal in can be very painful. Please use a splint such as a pillow or a blanket if it hurts to breathe *Continue to take medications as directed Tylenol 650 mg every 4-6 hours if needed for [id number] pain Ibuprofen 600 mg every 6-8 hours as needed for [id number] pain *Follow up with your primary care provider in 2-3 days *Return to ER if you should have increasing difficulty breathing, pain or any new, worsening or concerning symptoms Prescriptions: No Action hydroxyzine HCl 25 MG tablet 50 mg PO BID Qty: 0 RF: 0 albuterol sulfate [Proventil HFA] 90 MCG/PUFF HFA aerosol inhaler 2 puff INH Q4HP PRN (Reason: Shortness Of Breath) Qty: 0 RF: 0 duloxetine 60 MG capsule,delayed release(DR/EC) 60 mg PO DAILY Qty: 0 RF: 0 gabapentin [Neurontin] 300 MG capsule 900 mg PO BID Qty: 0 RF: 0 multivitamin [Multiple Vitamins] 1 EACH tablet 1 tab PO DAILY Qty: 0 RF: 0 zolpidem [Ambien] 10 MG tablet 10 mg PO HS PRN (Reason: Insomnia) Qty: 0 RF: 0 lorazepam 0.5 mg tablet 0.5 mg PO DAILY RF: 0 methocarbamol 500 mg tablet 1,000 mg PO QID RF: 0 Humulin N NPH Insulin KwikPen 100 unit/mL (3 mL) insulin pen 10 unit SUBCUT BID RF: 0 Vitamin D3 Complete 2,000 units See Rx Instructions .ROUTE .COMPLEX RF: 0 quetiapine 100 mg Tablet 200 mg PO BEDTIME RF: 0 magnesium glycinate 100 mg Tablet 800 mg PO QPM RF: 0 melatonin 10 mg Tablet 20 mg PO BEDTIME RF: 0 levofloxacin 250 mg tablet 250 mg PO DAILY Qty: 7 RF: 0 tramadol [Ultram] 50 mg tablet 50 mg PO TID PRN (Reason: pain) Qty: 20 RF: 0 ropinirole [Requip] 0.25 mg tablet 0.25 mg PO BEDTIME Qty: 30 RF: 0 lisinopril 10 mg tablet 10 mg PO DAILY RF: 0 omeprazole 20 mg capsule,delayed release(DR/EC) 20 mg PO DAILY RF: 0 ondansetron 4 mg tablet,disintegrating 1 tab Translingual Q6H PRN (Reason: Nausea) RF: 0 Probiotic 1 tab PO DAILY RF: 0 vitamin E 1 cap PO DAILY RF: 0 Referrals: Fadi Ko DO [Primary Care Provider] -
== END 2020-02-20 05:25 | disposition home or self-care (01) ==
PROVIDERS: Emergency Provider Emergency Medicine; PCP Family Medicine
DX: S20.211A Contusion of right front wall of thorax, initial encounter (principal); M25.531 Pain in right wrist; W19.XXXA Unspecified fall, initial encounter
CPT/HCPCS: 71101; 99283

== ENCOUNTER 2020-03-07 15:29 | Emergency (ER) | payer OTHER, SELFPAY ==
[2019-12-08 16:05] VITALS: BMI 16.6
--- NOTE | 2020-03-07 15:32 | DI.RAD.S_ITS ---
PROCEDURE: XR CHEST 1V INDICATIONS: Shortness of breath TECHNIQUE: One view of the chest was acquired. COMPARISON: [facility], CR, XR CHEST 2V, 12/08/2019, 12:41. [facility], CR, XR RIBS LEFT WITH PA CHEST, 01/22/2020, 10:01. FINDINGS: Surgical changes and devices: None. Lungs and pleura: Bibasilar pulmonary opacities. Mediastinum: Mediastinal contours appear normal. Heart size is normal. Bones and chest wall: No suspicious bony lesions. Overlying soft tissues appear unremarkable. IMPRESSION: Bibasilar pulmonary opacities most suggestive of pneumonia. Dictated by: Anisha Solis M.D. on 03/07/2020 at 16:32 Approved by: Anisha Solis M.D. on 03/07/2020 at 16:32
[2020-03-07 15:40] VITALS: BP 156/82; PULSE 115; RESP 22; TEMP 37.1; O2SAT 99; BMI 18.2
[2020-03-07 16:10] LABS: COVID19 -Nasal RAPID Negative (Negative)
--- NOTE | 2020-03-07 16:44 | ED.SOB ---
HPI - SOB/Dyspnea <YASMANI Peng - Last Filed: 03/07/20 19:35> General Chief Complaint: Shortness of Breath/Dyspnea Stated Complaint: FEVER PNEUMONIA SOB Time Seen by Provider: 03/07/20 15:31 Source: patient Mode of arrival: Family Vehicle Limitations: no limitations History of Present Illness HPI Narrative: This is a 54 year female, smoker, has extensive medical history with sepsis, fibromyalgia, asthma, hypertension, COPD, kidney stones and kidney infection presents to ED after she was referred by her PCP Dr. Sykes for pneumonia. Patient reports she has been having bilateral pleuritic chest pain worsen right-sided, productive cough with greenish mucus, short of breath, chills, fever with T-max of 101? today, with feeling fatigue and malaise for several days. She was evaluated by Dr. Sykes 2 days ago and started on antibiotic medication and had taken chest x-ray. Patient denies nausea or vomiting, urinary symptoms or cloudy urine, sore throat, headache, body aches, known exposure to COVID. Her called office for x-ray test results and was informed about full blown pneumonia and to go into ED for further evaluation. Patient reports not feeling improved after starting on antibiotic medications. Patient states has been using albuterol inhaler about twice a day for her symptoms. Patient denies history of DVT or pulmonary embolism, recent surgery, illness with tumors, or taking estrogen at this time. Related Data Home Medications Medication Instructions Recorded Confirmed albuterol sulfate [Proventil HFA] 2 puff INH Q4HP PRN #0 01/08/13 12/08/19 hydroxyzine HCl 50 mg PO BID #0 01/08/13 12/08/19 duloxetine 60 mg PO DAILY #0 07/04/17 12/08/19 gabapentin [Neurontin] 900 mg PO BID #0 07/04/17 12/08/19 multivitamin [Multiple Vitamins] 1 tab PO DAILY #0 07/04/17 12/08/19 zolpidem [Ambien] 10 mg PO HS PRN #0 07/04/17 12/08/19 Probiotic 1 tab PO DAILY 09/26/17 12/08/19 lisinopril 10 mg PO DAILY 09/26/17 12/08/19 omeprazole 20 mg PO DAILY 09/26/17 12/08/19 ondansetron 1 tab TRANSLINGUAL Q6H PRN 09/26/17 12/08/19 vitamin E 1 cap PO DAILY 09/26/17 12/08/19 lorazepam 0.5 mg PO DAILY 05/30/18 12/08/19 Humulin N NPH Insulin KwikPen 10 unit SUBCUT BID 05/17/19 12/08/19 methocarbamol 1,000 mg PO QID 05/17/19 12/08/19 Vitamin D3 Complete See Rx Instructions .ROUTE .COMPLEX 11/04/19 12/08/19 quetiapine 200 mg PO BEDTIME 11/04/19 12/08/19 magnesium glycinate 800 mg PO QPM 12/08/19 12/08/19 melatonin 20 mg PO BEDTIME 12/08/19 12/08/19 cefuroxime axetil 03/07/20 Previous Rx's Medication Instructions Recorded levofloxacin 250 mg PO DAILY #7 tab 12/10/19 ropinirole [Requip] 0.25 mg PO BEDTIME #30 tab 12/10/19 tramadol [Ultram] 50 mg PO TID PRN #20 tab 12/10/19 oxycodone-acetaminophen 1 tab PO Q6H PRN #14 tab 03/10/20 Allergies Allergy/AdvReac Type Severity Reaction Status Date / Time mupirocin Allergy Unknown Verified 10/11/19 15:56 naproxen Allergy Unknown Verified 10/11/19 15:56 Penicillins Allergy Unknown SINCE Verified 10/11/19 15:56 CHILDHOOD droperidol AdvReac Unknown Verified 10/11/19 15:56 fenofibrate [FENOFIBRATE] AdvReac Unknown Verified 10/11/19 15:56 ibuprofen AdvReac Unknown NAUSEA Verified 10/11/19 15:56 metformin [METFORMIN] AdvReac Unknown Verified 10/11/19 15:56 metoclopramide AdvReac Unknown BECAME Verified 10/11/19 15:56 JITTERY AND ANXIOUS nitrofurantoin AdvReac Unknown NAUSEA Verified 10/11/19 15:56 Review of Systems <YASMANI Peng - Last Filed: 03/07/20 19:35> Review of Systems Narrative: General: See HPI HEENT: Denies sinus pain, ear pain, sore throat, difficulty swallowing, dizziness. Respiratory: See HPI Cardiovascular: See HPI Gastrointestinal: Denies nausea, vomiting, abdominal pain, diarrhea, constipation, melena. : Denies dysuria, frequency, incontinence, hematuria, urinary retention. Musculoskeletal: Denies weakness, joint pain or bony pain. Skin: Denies rash, skin lesions, or other. Neurologic: Denies weakness, headache, numbness, change in speech, confusion, seizures, incoordination. Psychiatric: No concerning psychosocial issues. 12-point review of systems is negative except for those stated above. Patient History <[facility] - Last Filed: 03/07/20 19:35> Medical History Anxiety Closed fracture of left humerus Endometriosis Fibromyalgia Heart palpitations History of asthma History of chronic hypertension History of COPD History of depression History of gastrointestinal ulcer History of kidney stones History of migraine History of panic attacks History of type 2 diabetes mellitus Hyperlipidemia Interstitial cystitis UTI (urinary tract infection) Surgical History History of urostomy S/P appendectomy Status post hysterectomy Status post left rotator cuff repair Family History Mother Diabetes mellitus Lupus Social History household members: spouse Smoking Status: Current every day smoker alcohol intake: current Smoking Status: Current every day smoker tobacco type: cigarettes alcohol intake frequency: holidays/special occasions only Substance Use Type: former substance user and marijuana Exam <[facility] Last Filed: 03/07/20 19:35> Narrative Exam Narrative: GEN: Alert, oriented x 3, thin appearing and in no acute distress. Head: Normal cephalic, atraumatic. No scalp or temporal tenderness, palpable mass or rash. EYES: Pupils are equal, round, and reactive to light and accommodation. Extraocular muscles are intact bilaterally. There is no subconjunctival hemorrhage, exudate and sclera non-icteric. ENT: Hearing grossly intact. Nose without bleeding, purulent discharge or deviation. Facial sinuses nontender to palpate. Mucous membrane moist, no mucosal lesion. Throat without erythema, tonsillar hypertrophy or exudate. Uvula in midline, airway patent. Neck: Trachea in midline. No JVD, non-tender without lymphadenopathy. No masses or thyroid megaly. Supple, non-tender and no meningeal signs. CARDIAC: Normal tachy rate and rhythm without murmurs, gallops, or rubs. No chest wall tenderness. No peripheral edema, cyanosis or pallor. Capillary refill is less than 2 seconds. RESPIRATORY: Lungs are clear to auscultate in upper lobes, mild crackles in bilateral lower lobes. Coughing when taking deep breaths. No wheezes. No stridor, respiratory distress, increase work of breathing, or accessary muscle used. O2 saturation from 96 to 98% in room air. ABD: Abdomen soft, nontender and non-distended. No guarding or rebound tenderness to palpate. Bowel sounds are normal in all 4 quadrants. There is no palpable masses or organomegaly. EXT: Full painless ROM of all extremities with no loss of sensation, strength, effusion or edema. SKIN: Warm, dry, normal color for patient. No erythema, lesions or rash over visible areas. BACK: Nontender without deformity or crepitance. No flank tenderness. NEUROLOGICAL: Alert and oriented to place, time and person. Sensation and motor function intact bilaterally. No facial droops, dysphasia. PSYCHIATRIC: Good judgement and reason, without hallucinations, abnormal affect or abnormal behaviors during the examination. Patient is not suicidal. Initial Vital Signs Initial Vital Signs: Vital Signs Temperature 98.7 F 03/07/20 15:40 Pulse Rate 115 H 03/07/20 15:40 Respiratory Rate 22 03/07/20 15:40 Blood Pressure 156/82 H 03/07/20 15:40 Pulse Oximetry 99 03/07/20 15:40 <Brenton Drew DO - Last Filed: 03/10/20 17:58> Initial Vital Signs Initial Vital Signs: Vital Signs Temperature 98.7 F 03/07/20 15:40 Pulse Rate 115 H 03/07/20 15:40 Respiratory Rate 22 03/07/20 15:40 Blood Pressure 156/82 H 03/07/20 15:40 Pulse Oximetry 99 03/07/20 15:40 Scores <YASMANI Peng - Last Filed: 03/07/20 19:35> GCS Eva coma scale eye opening: Spontaneous Eva coma scale verbal response: Orientated Thayer coma scale motor response: Obey commands Eva coma scale total score: 15 PERC Score Age greater than or equal to 50 years: Yes Heart rate greater than or equal to 100 bpm: Yes Room Air O2 Sat less than 95%: No Unilateral leg swelling: No Recent trauma or surgery: No Hemoptysis: No Prior PE or DVT: No Hormone Use: No Total PERC Score: 2 qSOFA Altered Mental Status (GCS <15): No Respiratory rate greater than/equal to 22: Yes Systolic blood pressure less than or equal to 100: No qSOFA Total: 1 0-1 Not High Risk 1-3 High risk Wells' Criteria for PE Clinical signs and symptoms of DVT: No PE is #1 Dx or equally likely: No Heart rate > 100: Yes Immobilization at least 3 days or surg in previous 4 weeks: No History of PE or DVT: No Hemoptysis: No Malignancy w/Treatment within 6 months or palliative: No Wells' PE Score total: 1.5 Course <Ramon YASMANI Jewell - Last Filed: 03/07/20 19:35> Course Course Narrative: Spoke with Dr. Strauss for admission for bilateral basilar pneumonia not improving after oral Cefuroxime 4 doses completed with ongoing pleural chest pain, fever and chills, x-ray chest test and elevated procalcitonin with WBC and borderline lactate. She kindly accepted the patient's care. Spoke with the patient before initiating the consult and she agreed with the plan. She expressed the concerns for pain management and treatment. She was informed that I do not have improved for admission orders. recommended respiratory panel, sputum cultures in addition. Decision to Admit Date: 03/07/20 Decision to Admit time: 18:00 Orders Ordered: Discontinued Medications Hydromorphone HCl (Hydromorphone 0.5 Mg Inj) 0.5 mg IV NOW ONE Stop: 03/07/20 17:39 Last Admin: 03/07/20 17:56 Dose: 0.5 mg Documented by: ANIBAL Sodium Chloride (Normal Saline 0.9%) 1,000 mls @ 150 mls/hr IV CONT ISSA Last Infusion: 03/07/20 22:42 Dose: 0 mls/hr Documented by: Infusion: 03/07/20 18:21 Dose: 0 mls/hr Documented by: Admin: 03/07/20 16:54 Dose: 150 mls/hr Documented by: GRUPO Reevaluation(s) Reevaluation #1: Are and states patient refused respiratory panel. Patient requesting different IV site since it is uncomfortable. When I enter the room to explained the needs for respiratory panel requested by hospitalist, she states she is leaving against medical advice and not staying treatment for pneumonia. I discussed potential risk for leaving against medical advice worsening symptoms, sepsis, and and she verbalized understanding. Patient informed that she could return to ED any time for further evaluation and treatment to patient and spouse. Time: 18:15 Reevaluation #2: Spoke with Dr. Strauss on the status change with AMA. She recommended to cover pneumonia with doxycycline in addition to cefuroxime given patient has history of MRSA UTI and colonization. Time: 18:18 Vital Signs Vital signs: Vital Signs - 8 hr 03/07/20 15:40 03/07/20 18:22 Temperature 98.7 F Pulse Rate 115 H 107 H Respiratory Rate 22 16 Blood Pressure 156/82 H 145/78 H Pulse Oximetry 99 94 <Brenton Drew DO - Last Filed: 03/10/20 17:58> Orders Ordered: Discontinued Medications Hydromorphone HCl (Hydromorphone 0.5 Mg Inj) 0.5 mg IV NOW ONE Stop: 03/07/20 17:39 Last Admin: 03/07/20 17:56 Dose: 0.5 mg Documented by: ANIBAL Sodium Chloride (Normal Saline 0.9%) 1,000 mls @ 150 mls/hr IV CONT ISSA Last Infusion: 03/07/20 22:42 Dose: 0 mls/hr Documented by: Infusion: 03/07/20 18:21 Dose: 0 mls/hr Documented by: Admin: 03/07/20 16:54 Dose: 150 mls/hr Documented by: GRUPO Vital Signs Vital signs: Vital Signs - 8 hr 03/07/20 15:40 03/07/20 18:22 Temperature 98.7 F Pulse Rate 115 H 107 H Respiratory Rate 22 16 Blood Pressure 156/82 H 145/78 H Pulse Oximetry 99 94 MDM - SOB/Dyspnea <Ramon YASMANI Jewell - Last Filed: 03/07/20 19:35> Differential Diagnosis Differential diagnosis: Likely acute exacerbation of chronic obstructive airways disease, community acquired pneumonia, asthma with exacerbation and pulmonary embolism Medical Records Attestation: I reviewed the patient's medical records. Lab Data Attestation: I reviewed the patient's lab results. Result diagrams: 03/07/20 16:47 03/07/20 16:47 Labs: Lab Results 03/07/20 03/07/20 03/07/20 Range/Units 15:40 16:47 16:47 WBC 19.6 H (4.5-11.0) X10^3/uL RBC 3.14 L (4.0-5.2) X10^6/uL Hgb 10.5 L (12.0-16.0) g/dL Hct 31.6 L (36-46) % MCV 100.5 H (80-100) fL MCH 33.4 (26-34) PG MCHC 33.2 (30-36) % RDW 13.0 (11.6-14.8) % Plt Count 358 (150-400) X10^3/uL Neut % (Auto) 76.6 H (50-75) % Lymph % (Auto) 12.0 L (25-40) % [place] % (Auto) 10.5 (3-14) % Eos % (Auto) 0.5 L (2-4) % Baso % (Auto) 0.4 (0-2) % Neut # (Auto) 93323 H (0471-1310) /uL Lymph # (Auto) 2300 (9219-9246) /uL [place] # (Auto) 2000 H (0-900) /uL Eos # (Auto) 100 (0-450) /uL Baso # (Auto) 100 (0-100) /uL D-Dimer 295 H (<230) ng/mL Sodium (137-145) mmol/L Potassium (3.4-5.1) mmol/L Chloride (98-107) mmol/L Carbon Dioxide (22-32) mmol/L BUN (7-17) mg/dL Creatinine (0.52-1.04) mg/dL Estimated GFR (>60) mL/min BUN/Creatinine Ratio (6-22) Glucose (70-100) mg/dL Lactate (0.7-2.1) mmol/L Calcium (8.4-10.2) mg/dL Total Bilirubin (0.2-1.3) mg/dL AST (14-36) IU/L ALT (<35) IU/L Alkaline Phosphatase (38-126) U/L Total Creatine Kinase (30-135) U/L CK-MB (CK-2) CK-MB (CK-2) Rel Index Troponin I (0.01-0.034) ng/mL Total Protein (6.3-8.2) g/dL Albumin (3.5-5.0) g/dL Globulin (1.7-4.1) g/dL Albumin/Globulin Ratio (1.0-2.8) Lipase (23-300) U/L Procalcitonin (<0.5) ng/mL COVID-19 PCR Negative (Negative) 03/07/20 03/07/20 03/07/20 Range/Units 16:47 16:47 16:47 WBC (4.5-11.0) X10^3/uL RBC (4.0-5.2) X10^6/uL Hgb (12.0-16.0) g/dL Hct (36-46) % MCV (80-100) fL MCH (26-34) PG MCHC (30-36) % RDW (11.6-14.8) % Plt Count (150-400) X10^3/uL Neut % (Auto) (50-75) % Lymph % (Auto) (25-40) % [place] % (Auto) (3-14) % Eos % (Auto) (2-4) % Baso % (Auto) (0-2) % Neut # (Auto) (7755-0355) /uL Lymph # (Auto) (8741-4869) /uL [place] # (Auto) (0-900) /uL Eos # (Auto) (0-450) /uL Baso # (Auto) (0-100) /uL D-Dimer (<230) ng/mL Sodium 135 L (137-145) mmol/L Potassium 3.8 (3.4-5.1) mmol/L Chloride 104 (98-107) mmol/L Carbon Dioxide 23 (22-32) mmol/L BUN 9 (7-17) mg/dL Creatinine 0.50 L (0.52-1.04) mg/dL Estimated GFR > 60.0 (>60) mL/min BUN/Creatinine Ratio 18.0 (6-22) Glucose 264 H (70-100) mg/dL Lactate 2.0 (0.7-2.1) mmol/L Calcium 10.2 (8.4-10.2) mg/dL Total Bilirubin 0.6 (0.2-1.3) mg/dL AST 33 (14-36) IU/L ALT 73 H (<35) IU/L Alkaline Phosphatase 281 H (38-126) U/L Total Creatine Kinase 31 (30-135) U/L CK-MB (CK-2) TNP CK-MB (CK-2) Rel Index TNP Troponin I < 0.012 (0.01-0.034) ng/mL Total Protein 8.2 (6.3-8.2) g/dL Albumin 4.2 (3.5-5.0) g/dL Globulin 4.0 (1.7-4.1) g/dL Albumin/Globulin Ratio 1.1 (1.0-2.8) Lipase 15 L (23-300) U/L Procalcitonin 31.93 H (<0.5) ng/mL COVID-19 PCR (Negative) Urine Dip Bedside Urine Glucose Negative Bedside Urine Bilirubin - Negative Bedside Urine Ketone - Negative Urine Specific [place] 1.015 Bedside Urine Occult Blood - Negative Bedside Urine pH 6.0 Bedside Urine Protein - Negative Bedside Urine Urobilinogen - Negative Bedside Urine Nitrite - Negative Bedside Urine Leukocytes - Negative Esterase Imaging Data Chest x-ray: Radiologist's Impression: [address] [id number] ReportSigned Patient: Melvi Gibbs [facility]#: [id number]: 1965Acct:[id number]/Sex: 54 / FDate of Service: 03/07/20Loc: EDAccession Number: [id number] Procedure: XR chest 1V Ordering Provider: Brenton Drew D.O. PROCEDURE: XR CHEST 1V INDICATIONS: Shortness of breath TECHNIQUE: One view of the chest was acquired. COMPARISON: [facility], CR, XR CHEST 2V, 12/08/2019, 12:41. [facility], CR, XR RIBS LEFT WITH PA CHEST, 01/22/2020, 10:01. FINDINGS: Surgical changes and devices: None. Lungs and pleura: Bibasilar pulmonary opacities. Mediastinum: Mediastinal contours appear normal. Heart size is normal. Bones and chest wall: No suspicious bony lesions. Overlying soft tissues appear unremarkable. IMPRESSION: Bibasilar pulmonary opacities most suggestive of pneumonia. Dictated by: Anisha Solis M.D. on 03/07/2020 at 16:32 Approved by: Anisha Solis M.D. on 03/07/2020 at 16:32 ECG Data Attestation: I personally reviewed and interpreted this ECG as follows: Prior ECG tracings: available for review Interpretation: Sinus tachycardia rate at 113. Normal axis. IA interval 124, QRS duration 80, QT/QTC 342/469. Left atrial enlargement. No acute ST changes. Previous EKG tracing shows sinus tachycardia with minimal ST depression. MDM Narrative Medical decision making narrative: This is a 54 year female who presents to ED after PCP instructed for an evaluation and treatment for pneumonia. Patient was evaluated by PCP Mony 2 days ago and had taken chest X and started on cefuroxime which she is currently taking and had 4 doses so far. Patient reports not improving symptoms with fluid chest pain, fever and chills, productive cough. Patient is nontoxic appearing. Patient is tachycardic and afebrile when arrived to ED but reports had taken 1000 mg of Tylenol. Within normal limits of blood pressure. No respiratory distress or tachypnea appreciate and oxygen saturation is ranging from 96 to 98%. Mild crackles in bilateral lower lobes without wheeze or rhonchi. Chest x-ray shows by basilar pneumonia with opacity. CBC shows leukocytosis of 19.6 with elevated neutrophils. Lactate 2.0. Procalcitonin significantly elevated to 31.93 today. Unremarkable coags. D-dimer negative for age adjusted and it's 295. Nonfasting serum glucose elevated to 264 with slightly elevated ALT 73 and alk phos of 281. Normal lipase. No indications for UTI today. Patient was medicated with IV fluid and one dose of Dilaudid 0.5mg for generalize aches and pleuritic chest pain. Discussed admission to the hospital as not improving pneumonia with oral medications at home. Patient decided to leave against medical advice. GCS 15, she is alert and oriented, she is able to make sound medical decision at this time. Patient declined respiratory panel. Patient advised return to ED if any worsening symptoms or any acute concerns. After spoke with Dr. Strauss, she recommended covering with doxycycline in addition to cefuroxime and the patient's states they have doxycycline enough to cover b.i.d. for 7 day course. The patient signed the AMA form. <Brenton Drew, DO - Last Filed: 03/10/20 17:58> Lab Data Labs: Lab Results 03/07/20 03/07/20 03/07/20 Range/Units 15:40 16:47 16:47 WBC 19.6 H (4.5-11.0) X10^3/uL RBC 3.14 L (4.0-5.2) X10^6/uL Hgb 10.5 L (12.0-16.0) g/dL Hct 31.6 L (36-46) % MCV 100.5 H (80-100) fL MCH 33.4 (26-34) PG MCHC 33.2 (30-36) % RDW 13.0 (11.6-14.8) % Plt Count 358 (150-400) X10^3/uL Neut % (Auto) 76.6 H (50-75) % Lymph % (Auto) 12.0 L (25-40) % [place] % (Auto) 10.5 (3-14) % Eos % (Auto) 0.5 L (2-4) % Baso % (Auto) 0.4 (0-2) % Neut # (Auto) 26805 H (8276-2680) /uL Lymph # (Auto) 2300 (3700-7134) /uL [place] # (Auto) 2000 H (0-900) /uL Eos # (Auto) 100 (0-450) /uL Baso # (Auto) 100 (0-100) /uL D-Dimer 295 H (<230) ng/mL Sodium (137-145) mmol/L Potassium (3.4-5.1) mmol/L Chloride (98-107) mmol/L Carbon Dioxide (22-32) mmol/L BUN (7-17) mg/dL Creatinine (0.52-1.04) mg/dL Estimated GFR (>60) mL/min BUN/Creatinine Ratio (6-22) Glucose (70-100) mg/dL Lactate (0.7-2.1) mmol/L Calcium (8.4-10.2) mg/dL Total Bilirubin (0.2-1.3) mg/dL AST (14-36) IU/L ALT (<35) IU/L Alkaline Phosphatase (38-126) U/L Total Creatine Kinase (30-135) U/L CK-MB (CK-2) CK-MB (CK-2) Rel Index Troponin I (0.01-0.034) ng/mL Total Protein (6.3-8.2) g/dL Albumin (3.5-5.0) g/dL Globulin (1.7-4.1) g/dL Albumin/Globulin Ratio (1.0-2.8) Lipase (23-300) U/L Procalcitonin (<0.5) ng/mL COVID-19 PCR Negative (Negative) 03/07/20 03/07/20 03/07/20 Range/Units 16:47 16:47 16:47 WBC (4.5-11.0) X10^3/uL RBC (4.0-5.2) X10^6/uL Hgb (12.0-16.0) g/dL Hct (36-46) % MCV (80-100) fL MCH (26-34) PG MCHC (30-36) % RDW (11.6-14.8) % Plt Count (150-400) X10^3/uL Neut % (Auto) (50-75) % Lymph % (Auto) (25-40) % [place] % (Auto) (3-14) % Eos % (Auto) (2-4) % Baso % (Auto) (0-2) % Neut # (Auto) (6632-9022) /uL Lymph # (Auto) (4782-2022) /uL [place] # (Auto) (0-900) /uL Eos # (Auto) (0-450) /uL Baso # (Auto) (0-100) /uL D-Dimer (<230) ng/mL Sodium 135 L (137-145) mmol/L Potassium 3.8 (3.4-5.1) mmol/L Chloride 104 (98-107) mmol/L Carbon Dioxide 23 (22-32) mmol/L BUN 9 (7-17) mg/dL Creatinine 0.50 L (0.52-1.04) mg/dL Estimated GFR > 60.0 (>60) mL/min BUN/Creatinine Ratio 18.0 (6-22) Glucose 264 H (70-100) mg/dL Lactate 2.0 (0.7-2.1) mmol/L Calcium 10.2 (8.4-10.2) mg/dL Total Bilirubin 0.6 (0.2-1.3) mg/dL AST 33 (14-36) IU/L ALT 73 H (<35) IU/L Alkaline Phosphatase 281 H (38-126) U/L Total Creatine Kinase 31 (30-135) U/L CK-MB (CK-2) TNP CK-MB (CK-2) Rel Index TNP Troponin I < 0.012 (0.01-0.034) ng/mL Total Protein 8.2 (6.3-8.2) g/dL Albumin 4.2 (3.5-5.0) g/dL Globulin 4.0 (1.7-4.1) g/dL Albumin/Globulin Ratio 1.1 (1.0-2.8) Lipase 15 L (23-300) U/L Procalcitonin 31.93 H (<0.5) ng/mL COVID-19 PCR (Negative) Urine Dip Bedside Urine Glucose Negative Bedside Urine Bilirubin - Negative Bedside Urine Ketone - Negative Urine Specific [place] 1.015 Bedside Urine Occult Blood - Negative Bedside Urine pH 6.0 Bedside Urine Protein - Negative Bedside Urine Urobilinogen - Negative Bedside Urine Nitrite - Negative Bedside Urine Leukocytes - Negative Esterase Discharge Plan Departure Patient Disposition: Left Against Medical Advice Clinical Impression: Pneumonia Qualifiers: Pneumonia type: due to unspecified organism Laterality: bilateral Lung location: lower lobe of lung Qualified Code(s): J18.9 - Pneumonia, unspecified organism Instructions: DI for Pneumonia -- Adult Activity Restrictions/Additional Instructions: You have been diagnosed with [pneumonia.]. What to do: *Take your medications as directed. Please add doxycycline 100 mg twice a day for 7 day starting tonight. *Follow up with your primary care provider in 2-3 days, call for an appointment. Let them know you were seen in the ED and that we asked you to be seen in follow up. *Return to ED if you have any new, worsening, or concerning symptoms, such as [increasing pain, short of breath, unable to tolerate fluids, fever not managed with Tylenol, or any acute concerns]. Prescriptions: No Action hydroxyzine HCl 25 MG tablet 50 mg PO BID Qty: 0 RF: 0 albuterol sulfate [Proventil HFA] 90 MCG/PUFF HFA aerosol inhaler 2 puff INH Q4HP PRN (Reason: Shortness Of Breath) Qty: 0 RF: 0 duloxetine 60 MG capsule,delayed release(DR/EC) 60 mg PO DAILY Qty: 0 RF: 0 gabapentin [Neurontin] 300 MG capsule 900 mg PO BID Qty: 0 RF: 0 multivitamin [Multiple Vitamins] 1 EACH tablet 1 tab PO DAILY Qty: 0 RF: 0 zolpidem [Ambien] 10 MG tablet 10 mg PO HS PRN (Reason: Insomnia) Qty: 0 RF: 0 lorazepam 0.5 mg tablet 0.5 mg PO DAILY RF: 0 methocarbamol 500 mg tablet 1,000 mg PO QID RF: 0 Humulin N NPH Insulin KwikPen 100 unit/mL (3 mL) insulin pen 10 unit SUBCUT BID RF: 0 Vitamin D3 Complete 2,000 units See Rx Instructions .ROUTE .COMPLEX RF: 0 quetiapine 100 mg Tablet 200 mg PO BEDTIME RF: 0 magnesium glycinate 100 mg Tablet 800 mg PO QPM RF: 0 melatonin 10 mg Tablet 20 mg PO BEDTIME RF: 0 levofloxacin 250 mg tablet 250 mg PO DAILY Qty: 7 RF: 0 tramadol [Ultram] 50 mg tablet 50 mg PO TID PRN (Reason: pain) Qty: 20 RF: 0 ropinirole [Requip] 0.25 mg tablet 0.25 mg PO BEDTIME Qty: 30 RF: 0 lisinopril 10 mg tablet 10 mg PO DAILY RF: 0 omeprazole 20 mg capsule,delayed release(DR/EC) 20 mg PO DAILY RF: 0 ondansetron 4 mg tablet,disintegrating 1 tab Translingual Q6H PRN (Reason: Nausea) RF: 0 Probiotic 1 tab PO DAILY RF: 0 vitamin E 1 cap PO DAILY RF: 0 cefuroxime axetil 250 mg tablet RF: 0 oxycodone-acetaminophen 5-325 mg tablet 1 tab PO Q6H PRN (Reason: pain) Qty: 14 RF: 0 Referrals: Fadi Ko DO [Primary Care Provider] - Stand Alone Forms: Against Medical Advice <Brenton Drew DO - Last Filed: 03/10/20 17:58> Cosign ED Attending Cosignature Attestation: Dr Drew Co-Sign Statement: I was available for consultation during this patient's emergency department visit. This chart is signed by myself for administrative purposes only. I did not have direct contact with this patient during this visit. They were seen independently by the APC.
[2020-03-07] MEDS: SODIUM CHLORIDE 0.9% 1,000 ML 150 ML IV (16:54)
[2020-03-07 16:56] LABS: Add Manual Diff / Slide Review NO; Basophils Absolute Auto 100 /uL (0-100); Basophils Percent Auto 0.4 % (0-2); Eosinophils Absolute Auto 100 /uL (0-450); Eosinophils Percent Auto 0.5 % (2-4); Hematocrit 31.6 % (36-46); Hemoglobin 10.5 g/dL (12.0-16.0); Lymphocytes Absolute Auto 2300 /uL (1100-4500); Mean Corpuscular HGB Conc 33.2 % (30-36); Mean Corpuscular Hemoglobin 33.4 PG (26-34); Mean Corpuscular Volume 100.5 fL (80-100); Monocytes Absolute Auto 2000 /uL (0-900); Monocytes Percent Auto 10.5 % (3-14); Neutrophils Absolute Auto 15000 /uL (1500-7000); Neutrophils Percent Auto 76.6 % (50-75); Platelet Count 358 X10^3/uL (150-400); Red Blood Cell Count 3.14 X10^6/uL (4.0-5.2); White Blood Cell Count 19.6 X10^3/uL (4.5-11.0)
[2020-03-07 17:08] LABS: D Dimer 295 ng/mL (<230)
[2020-03-07 17:12] LABS: Alanine Aminotransferase 73 IU/L (<35); Albumin 4.2 g/dL (3.5-5.0); Albumin Globulin Ratio 1.1 (1.0-2.8); Alkaline Phosphatase 281 U/L (38-126); Aspartate Aminotransferase 33 IU/L (14-36); Bilirubin Total 0.6 mg/dL (0.2-1.3); Blood Urea Nitrogen 9 mg/dL (7-17); Calcium 10.2 mg/dL (8.4-10.2); Carbon Dioxide 23 mmol/L (22-32); Chloride 104 mmol/L (98-107); Creatine Kinase 31 U/L (30-135); Estimated Glomerular Filt Rate > 60.0 mL/min (>60); Glucose 264 mg/dL (70-100); HEMOLYSIS < 15 (0-50); Lipase 15 U/L (23-300); Potassium 3.8 mmol/L (3.4-5.1); Sodium 135 mmol/L (137-145); Total Protein 8.2 g/dL (6.3-8.2)
[2020-03-07 17:24] LABS: Troponin I < 0.012 ng/mL (0.01-0.034)
[2020-03-07 17:38] LABS: Procalcitonin 31.93 ng/mL (<0.5)
[2020-03-07] MEDS: HYDROMORPHONE 0.5 MG INJ IV (17:56)
[2020-03-07 18:22] VITALS: BP 145/78; PULSE 107; RESP 16; O2SAT 94
[2020-03-07 18:52] LABS: Reflexed Lactate in 2 Hours Y
--- NOTE | 2020-03-07 22:44 | PC.NURSE ---
IV fluids stopped at 1820 and patient left against medical advice
== END 2020-03-07 18:24 | disposition left against medical advice (07) ==
PROVIDERS: Emergency Medicine; Emergency Provider Nurse Practitioner Family; PCP Family Medicine
DX: J18.9 Pneumonia, unspecified organism (principal); J44.9 Chronic obstructive pulmonary disease, unspecified; I10 Essential (primary) hypertension; R50.9 Fever, unspecified; E78.5 Hyperlipidemia, unspecified; E11.9 Type 2 diabetes mellitus without complications; R00.0 Tachycardia, unspecified
CPT/HCPCS: 36415; 71045; 80053; 81003; 82550; 83605; 83690; 84145; 84484; 85025; 85379; 87040; 87635; 93005; 93010; 96361; 96374; 99283; 99284; J1170

== ENCOUNTER 2020-03-10 09:17 | Emergency (ER) | payer OTHER, SELFPAY ==
[2019-12-08 16:05] VITALS: BMI 16.6
[2020-03-10 09:35] VITALS: BP 134/78; PULSE 117; RESP 20; TEMP 37; O2SAT 100
--- NOTE | 2020-03-10 09:38 | DI.RAD.S_ITS ---
PROCEDURE: XR CHEST 2V INDICATIONS: shortness of breath TECHNIQUE: 2 views of the chest were acquired. COMPARISON: [facility], , XR CHEST 2V, 12/08/2019, 12:41. FINDINGS: Surgical changes and devices: None. Lungs and pleura: Mildly increased interstitial interstitial markings in both lungs, particular in the perihilar regions. No pleural effusions or pneumothorax. Mediastinum: Mediastinal contours are normal. Heart size is normal. Bones and chest wall: No suspicious bony abnormalities. Soft tissues appear unremarkable. IMPRESSION: Mildly increased interstitial markings in both lungs, nonspecific. The findings are most often seen in the setting of interstitial pulmonary edema or acute bronchitis (typically viral). Dictated by: Jae Stringer M.D. on 03/10/2020 at 9:27 Approved by: Jae Stringer M.D. on 03/10/2020 at 9:28
[2020-03-10 10:20] LABS: Add Manual Diff / Slide Review NO; Basophils Absolute Auto 100 /uL (0-100); Basophils Percent Auto 0.7 % (0-2); Eosinophils Absolute Auto 100 /uL (0-450); Eosinophils Percent Auto 0.5 % (2-4); Hematocrit 34.9 % (36-46); Hemoglobin 11.5 g/dL (12.0-16.0); Lymphocytes Absolute Auto 2200 /uL (1100-4500); Lymphocytes Percent Auto 19.7 % (25-40); Mean Corpuscular Hemoglobin 33.5 PG (26-34); Mean Corpuscular Volume 101.5 fL (80-100); Monocytes Absolute Auto 1200 /uL (0-900); Monocytes Percent Auto 10.9 % (3-14); Neutrophils Absolute Auto 7700 /uL (1500-7000); Neutrophils Percent Auto 68.2 % (50-75); Platelet Count 482 X10^3/uL (150-400); Red Blood Cell Count 3.44 X10^6/uL (4.0-5.2); Red Cell Distribution Width 13.4 % (11.6-14.8); White Blood Cell Count 11.2 X10^3/uL (4.5-11.0)
[2020-03-10 10:27] LABS: Alanine Aminotransferase 35 IU/L (<35); Albumin 4.3 g/dL (3.5-5.0); Albumin Globulin Ratio 1.1 (1.0-2.8); Alkaline Phosphatase 278 U/L (38-126); Aspartate Aminotransferase 23 IU/L (14-36); BUN Creatinine Ratio 25.6 (6-22); Bilirubin Total 0.4 mg/dL (0.2-1.3); Blood Urea Nitrogen 11 mg/dL (7-17); Calcium 9.8 mg/dL (8.4-10.2); Carbon Dioxide 22 mmol/L (22-32); Chloride 100 mmol/L (98-107); Estimated Glomerular Filt Rate > 60.0 mL/min (>60); Glucose 372 mg/dL (70-100); HEMOLYSIS < 15 (0-50); Potassium 4.3 mmol/L (3.4-5.1); Sodium 133 mmol/L (137-145); Total Protein 8.3 g/dL (6.3-8.2)
--- NOTE | 2020-03-10 11:25 | ED_ITS ---
HPI - General Adult General Chief complaint: Shortness of Breath/Dyspnea Stated complaint: pneumonia Time Seen by Provider: 03/10/20 11:25 Source: patient Mode of arrival: Ambulatory Limitations: no limitations History of Present Illness HPI narrative: 54-year-old woman with a complex medical history COPD, asthma, h ypertension, fibromyalgia, prior kidney infections and urostomy, type 2 diabetes and history of complicated infections in the past presented on March 07 with complaints of cough was diagnosed with pneumonia and hospitalization was recommended. She declined this and was discharged home with follow instruction to continue the cefuroxime that she had been on for 48 hours and 2 that doxycycline was added., over the last 2 days she is noticing increasing chest pain worse with deep breathing worse on the right than the left and is concerned that her pneumonia is returning. She is not having fever, cough is better, no hypoxia, no abdominal pain, no vomiting no diarrhea Related Data Home Medications Medication Instructions Recorded Confirmed albuterol sulfate [Proventil HFA] 2 puff INH Q4HP PRN #0 01/08/13 12/08/19 hydroxyzine HCl 50 mg PO BID #0 01/08/13 12/08/19 duloxetine 60 mg PO DAILY #0 07/04/17 12/08/19 gabapentin [Neurontin] 900 mg PO BID #0 07/04/17 12/08/19 multivitamin [Multiple Vitamins] 1 tab PO DAILY #0 07/04/17 12/08/19 zolpidem [Ambien] 10 mg PO HS PRN #0 07/04/17 12/08/19 Probiotic 1 tab PO DAILY 09/26/17 12/08/19 lisinopril 10 mg PO DAILY 09/26/17 12/08/19 omeprazole 20 mg PO DAILY 09/26/17 12/08/19 ondansetron 1 tab TRANSLINGUAL Q6H PRN 09/26/17 12/08/19 vitamin E 1 cap PO DAILY 09/26/17 12/08/19 lorazepam 0.5 mg PO DAILY 05/30/18 12/08/19 Humulin N NPH Insulin KwikPen 10 unit SUBCUT BID 05/17/19 12/08/19 methocarbamol 1,000 mg PO QID 05/17/19 12/08/19 Vitamin D3 Complete See Rx Instructions .ROUTE .COMPLEX 11/04/19 12/08/19 quetiapine 200 mg PO BEDTIME 11/04/19 12/08/19 magnesium glycinate 800 mg PO QPM 12/08/19 12/08/19 melatonin 20 mg PO BEDTIME 12/08/19 12/08/19 cefuroxime axetil 03/07/20 Previous Rx's Medication Instructions Recorded levofloxacin 250 mg PO DAILY #7 tab 12/10/19 ropinirole [Requip] 0.25 mg PO BEDTIME #30 tab 12/10/19 tramadol [Ultram] 50 mg PO TID PRN #20 tab 12/10/19 oxycodone-acetaminophen 1 tab PO Q6H PRN #14 tab 03/10/20 Allergies Allergy/AdvReac Type Severity Reaction Status Date / Time mupirocin Allergy Unknown Verified 10/11/19 15:56 naproxen Allergy Unknown Verified 10/11/19 15:56 Penicillins Allergy Unknown SINCE Verified 10/11/19 15:56 CHILDHOOD droperidol AdvReac Unknown Verified 10/11/19 15:56 fenofibrate [FENOFIBRATE] AdvReac Unknown Verified 10/11/19 15:56 ibuprofen AdvReac Unknown NAUSEA Verified 10/11/19 15:56 metformin [METFORMIN] AdvReac Unknown Verified 10/11/19 15:56 metoclopramide AdvReac Unknown BECAME Verified 10/11/19 15:56 JITTERY AND ANXIOUS nitrofurantoin AdvReac Unknown NAUSEA Verified 10/11/19 15:56 Review of Systems Review of Systems Narrative: Remainder of review of systems including constitutional, ENT, cardiovascular, respiratory, GI, , musculoskeletal, skin, neurologic and psychiatric systems reviewed and are unremarkable except as noted in HPI. Patient History Medical History Anxiety Closed fracture of left humerus Endometriosis Fibromyalgia Heart palpitations History of asthma History of chronic hypertension History of COPD History of depression History of gastrointestinal ulcer History of kidney stones History of migraine History of panic attacks History of type 2 diabetes mellitus Hyperlipidemia Interstitial cystitis UTI (urinary tract infection) Surgical History History of urostomy S/P appendectomy Status post hysterectomy Status post left rotator cuff repair Family History Mother Diabetes mellitus Lupus Social History household members: spouse Smoking Status: Current every day smoker alcohol intake: current Smoking Status: Current every day smoker tobacco type: cigarettes alcohol intake frequency: holidays/special occasions only Substance Use Type: former substance user and marijuana Exam Narrative Exam Narrative: General: Frail-appearing, emotionally distressed but physically doing well Able to give a complete and coherent history. HEENT: Moist mucous membranes, normal sclera with reactive pupils, Neck: No JVD, supple Respiratory: Lungs are clear to auscultation, no wheezing no rales no rhonchi. Full and symmetrical air movement Cardiac: Regular rate and rhythm no murmurs no bruits Chest: Reproducible chest pain with deep breathing and with manipulation of ribcage Abdomen: Soft nontender good bowel tones, no flank pain, urostomy site is clean and healthy Skin: Warm and dry, no rashes Neurologic: Grossly neurologically intact with no obvious asymmetries or abnormalities Extremities: No trauma, well perfused Psych: Cooperative, appropriate insight and affect Initial Vital Signs Initial Vital Signs: Vital Signs Temperature 98.6 F 03/10/20 09:35 Pulse Rate 117 H 03/10/20 09:35 Respiratory Rate 20 03/10/20 09:35 Blood Pressure 134/78 03/10/20 09:35 Pulse Oximetry 100 03/10/20 09:35 Course Orders Ordered: ED Orders 03/10/20 09:38 XR chest 2V Stat EKG-12 Lead Stat Measure peak expiratory flow ONCE RT Consult Eval and Treat Now 03/10/20 09:59 Complete Blood Count AUTO DIFF Stat Comprehensive Metabolic Panel Stat Discontinued Medications Methylprednisolone (Methylprednisolone 125 Mg/2 Ml Vial) 125 mg IV NOW ONE Stop: 03/10/20 12:05 Last Admin: 03/10/20 12:10 Dose: 125 mg Documented by: Oxycodone/Acetaminophen (Oxycodone/Acetaminophen 5/325 Tablet) 1 tab PO NOW ONE Stop: 03/10/20 12:05 Last Admin: 03/10/20 12:10 Dose: 1 tab Documented by: Vital Signs Vital signs: Vital Signs - 8 hr 03/10/20 09:35 03/10/20 11:33 Temperature 98.6 F Pulse Rate 117 H 102 H Respiratory Rate 20 18 Blood Pressure 134/78 Pulse Oximetry 100 100 Medical Decision Making Medical Records Medical records reviewed: Yes I reviewed the patient's medical records. Lab Data Lab results reviewed: Yes I reviewed the patient's lab results. Result diagrams: 03/10/20 09:59 03/10/20 09:59 Labs: Lab Results 03/10/20 03/10/20 Range/Units 09:59 09:59 WBC 11.2 H (4.5-11.0) X10^3/uL RBC 3.44 L (4.0-5.2) X10^6/uL Hgb 11.5 L (12.0-16.0) g/dL Hct 34.9 L (36-46) % MCV 101.5 H (80-100) fL MCH 33.5 (26-34) PG MCHC 33.0 (30-36) % RDW 13.4 (11.6-14.8) % Plt Count 482 H (150-400) X10^3/uL Neut % (Auto) 68.2 (50-75) % Lymph % (Auto) 19.7 L (25-40) % [place] % (Auto) 10.9 (3-14) % Eos % (Auto) 0.5 L (2-4) % Baso % (Auto) 0.7 (0-2) % Neut # (Auto) 7700 H (0695-4334) /uL Lymph # (Auto) 2200 (3094-1596) /uL [place] # (Auto) 1200 H (0-900) /uL Eos # (Auto) 100 (0-450) /uL Baso # (Auto) 100 (0-100) /uL Sodium 133 L (137-145) mmol/L Potassium 4.3 (3.4-5.1) mmol/L Chloride 100 (98-107) mmol/L Carbon Dioxide 22 (22-32) mmol/L BUN 11 (7-17) mg/dL Creatinine 0.43 L (0.52-1.04) mg/dL Estimated GFR > 60.0 (>60) mL/min BUN/Creatinine Ratio 25.6 H (6-22) Glucose 372 H D (70-100) mg/dL Calcium 9.8 (8.4-10.2) mg/dL Total Bilirubin 0.4 (0.2-1.3) mg/dL AST 23 (14-36) IU/L ALT 35 H (<35) IU/L Alkaline Phosphatase 278 H (38-126) U/L Total Protein 8.3 H (6.3-8.2) g/dL Albumin 4.3 (3.5-5.0) g/dL Globulin 4.0 (1.7-4.1) g/dL Albumin/Globulin Ratio 1.1 (1.0-2.8) Imaging Data Chest x-ray: Radiologist's Impression: FINDINGS: Surgical changes and devices: None. Lungs and pleura: Mildly increased interstitial interstitial markings in both lungs, particular in the perihilar regions. No pleural effusions or pneumothorax. Mediastinum: Mediastinal contours are normal. Heart size is normal. Bones and chest wall: No suspicious bony abnormalities. Soft tissues appear unremarkable. IMPRESSION: Mildly increased interstitial markings in both lungs, nonspecific. The findings are most often seen in the setting of interstitial pulmonary edema or acute bronchitis (typically viral). Dictated by: Jae Stringer M.D. on 03/10/2020 at 9:27 ECG Data Attestation: I personally reviewed and interpreted this ECG as follows: Interpretation: Sinus tachycardia at 1:16 a.m. Normal intervals and axis Poor R-wave progression No acute ischemic changes MDM Narrative Medical decision making narrative: 54-year-old woman with what appears to be a resolving pneumonia and interval development of pleuritic type pain. As she is intolerant to nonsteroidals (even Toradol makes her vomit) will give her a single dose of 125 mg of Solu-Medrol and of brief course of Percocet to help with pain along with reassurance. There is no evidence of sepsis, heart failure, pleural effusion, myocardial infarction or recurrent pneumonia. She was COVID negative with initial fever and cough presentation a week ago. She is safe for home discharge Discharge Plan Departure Patient Disposition: Home Clinical Impression: Pleurisy Instructions: DI for Pleurisy Activity Restrictions/Additional Instructions: Thank you for coming in today Your pneumonia is getting better! The antibiotics and the help from all of your friends is clearly making a difference The chest pain you are experiencing is pleurisy, an inflammation around her lungs after you have had an infection. It is going to get better no matter what we do. There are a few things we can do to help it get better faster. The 1st drug of choice to treat this is ibuprofen. Because you do not tolerate ibuprofen like medications I have given you a shot of Solu-Medrol, a powerful steroid, in the emergency department to help with inflammation. It is also reasonable to use a small amount of narcotic for the next 2-3 days to help control the pain. I have given you a prescription for Percocet. You can continue taking either 2 Tylenol or 1 Tylenol and 1 Percocet every 6 hours. Percocet prescription was electronically sent to [facility] in [facility] for you today I hope you feel better Prescriptions: New oxycodone-acetaminophen 5-325 mg tablet 1 tab PO Q6H PRN (Reason: pain) Qty: 14 RF: 0 No Action hydroxyzine HCl 25 MG tablet 50 mg PO BID Qty: 0 RF: 0 albuterol sulfate [Proventil HFA] 90 MCG/PUFF HFA aerosol inhaler 2 puff INH Q4HP PRN (Reason: Shortness Of Breath) Qty: 0 RF: 0 duloxetine 60 MG capsule,delayed release(DR/EC) 60 mg PO DAILY Qty: 0 RF: 0 gabapentin [Neurontin] 300 MG capsule 900 mg PO BID Qty: 0 RF: 0 multivitamin [Multiple Vitamins] 1 EACH tablet 1 tab PO DAILY Qty: 0 RF: 0 zolpidem [Ambien] 10 MG tablet 10 mg PO HS PRN (Reason: Insomnia) Qty: 0 RF: 0 lorazepam 0.5 mg tablet 0.5 mg PO DAILY RF: 0 methocarbamol 500 mg tablet 1,000 mg PO QID RF: 0 Humulin N NPH Insulin KwikPen 100 unit/mL (3 mL) insulin pen 10 unit SUBCUT BID RF: 0 Vitamin D3 Complete 2,000 units See Rx Instructions .ROUTE .COMPLEX RF: 0 quetiapine 100 mg Tablet 200 mg PO BEDTIME RF: 0 magnesium glycinate 100 mg Tablet 800 mg PO QPM RF: 0 melatonin 10 mg Tablet 20 mg PO BEDTIME RF: 0 levofloxacin 250 mg tablet 250 mg PO DAILY Qty: 7 RF: 0 tramadol [Ultram] 50 mg tablet 50 mg PO TID PRN (Reason: pain) Qty: 20 RF: 0 ropinirole [Requip] 0.25 mg tablet 0.25 mg PO BEDTIME Qty: 30 RF: 0 lisinopril 10 mg tablet 10 mg PO DAILY RF: 0 omeprazole 20 mg capsule,delayed release(DR/EC) 20 mg PO DAILY RF: 0 ondansetron 4 mg tablet,disintegrating 1 tab Translingual Q6H PRN (Reason: Nausea) RF: 0 Probiotic 1 tab PO DAILY RF: 0 vitamin E 1 cap PO DAILY RF: 0 cefuroxime axetil 250 mg tablet RF: 0 Referrals: Fadi Ko DO [Primary Care Provider] -
[2020-03-10 11:33] VITALS: PULSE 102; RESP 18; O2SAT 100
[2020-03-10 12:00] VITALS: BP 147/75; PULSE 99; O2SAT 100
[2020-03-10] MEDS: methylPREDNISolone 125 MG/2 ML VIAL IV (12:10)
[2020-03-10] MEDS: OXYCODONE/ACETAMINOPHEN 5/325 TABLET 1 TAB PO (12:10)
== END 2020-03-10 12:33 | disposition home or self-care (01) ==
PROVIDERS: Emergency Provider Emergency Medicine; PCP Family Medicine
DX: R09.1 Pleurisy (principal); J44.9 Chronic obstructive pulmonary disease, unspecified; R07.9 Chest pain, unspecified; R06.02 Shortness of breath; I10 Essential (primary) hypertension
CPT/HCPCS: 36415; 71046; 80053; 85025; 93005; 93010; 96374; 99283; 99284; J2930

== ENCOUNTER 2020-04-08 09:15 | Emergency (ER) | payer OTHER, SELFPAY ==
[2019-12-08 16:05] VITALS: BMI 16.6
[2020-04-08] VITALS (8 sets, daily range): BP systolic 120–151; BP diastolic 66–81; PULSE 80–92; RESP 24; TEMP 36.5; O2SAT 99–100; BMI 18.6
--- NOTE | 2020-04-08 09:37 | ED.HA ---
HPI - Headache General Chief Complaint: Headache Stated Complaint: headache 2 weeks Time Seen by Provider: 04/08/20 09:32 Source: patient Mode of arrival: Ambulatory Limitations: no limitations History of Present Illness HPI Narrative: Patient is a 54-year-old female who has history of COPD, hypertension, fibromyalgia, urostomy with multiple kidney infections, type 2 diabetes presents with headache ongoing for the last 2 weeks. She typically does not get migraines or headaches. She was seen by her primary care provider yesterday who gave her prescription for sumatriptan which she took for the 1st time last night. It did not seem to help infected seem to get worse. She is sensitive to light and noise she feels nauseous no vomiting. She has generalized weakness. She denies any fever. MD Complaint: headache Onset (ago): week(s) (2) Onset description: sudden Related Data Home Medications Medication Instructions Recorded Confirmed albuterol sulfate [Proventil HFA] 2 puff INH Q4HP PRN #0 01/08/13 12/08/19 hydroxyzine HCl 50 mg PO BID #0 01/08/13 12/08/19 duloxetine 60 mg PO DAILY #0 07/04/17 12/08/19 gabapentin [Neurontin] 900 mg PO BID #0 07/04/17 12/08/19 multivitamin [Multiple Vitamins] 1 tab PO DAILY #0 07/04/17 12/08/19 zolpidem [Ambien] 10 mg PO HS PRN #0 07/04/17 12/08/19 Probiotic 1 tab PO DAILY 09/26/17 12/08/19 lisinopril 10 mg PO DAILY 09/26/17 12/08/19 omeprazole 20 mg PO DAILY 09/26/17 12/08/19 ondansetron 1 tab TRANSLINGUAL Q6H PRN 09/26/17 12/08/19 vitamin E 1 cap PO DAILY 09/26/17 12/08/19 lorazepam 0.5 mg PO DAILY 05/30/18 12/08/19 Humulin N NPH Insulin KwikPen 10 unit SUBCUT BID 05/17/19 12/08/19 methocarbamol 1,000 mg PO QID 05/17/19 12/08/19 Vitamin D3 Complete See Rx Instructions .ROUTE .COMPLEX 11/04/19 12/08/19 quetiapine 200 mg PO BEDTIME 11/04/19 12/08/19 magnesium glycinate 800 mg PO QPM 12/08/19 12/08/19 melatonin 20 mg PO BEDTIME 12/08/19 12/08/19 cefuroxime axetil 03/07/20 Previous Rx's Medication Instructions Recorded levofloxacin 250 mg PO DAILY #7 tab 12/10/19 ropinirole [Requip] 0.25 mg PO BEDTIME #30 tab 12/10/19 tramadol [Ultram] 50 mg PO TID PRN #20 tab 12/10/19 oxycodone-acetaminophen 1 tab PO Q6H PRN #14 tab 03/10/20 Allergies Allergy/AdvReac Type Severity Reaction Status Date / Time mupirocin Allergy Unknown Verified 04/08/20 09:22 naproxen Allergy Unknown Verified 04/08/20 09:22 Penicillins Allergy Unknown SINCE Verified 04/08/20 09:22 CHILDHOOD droperidol AdvReac Unknown Verified 04/08/20 09:22 fenofibrate [FENOFIBRATE] AdvReac Unknown Verified 04/08/20 09:22 ibuprofen AdvReac Unknown NAUSEA Verified 04/08/20 09:22 metformin [METFORMIN] AdvReac Unknown Verified 04/08/20 09:22 metoclopramide AdvReac Unknown BECAME Verified 04/08/20 09:22 JITTERY AND ANXIOUS nitrofurantoin AdvReac Unknown NAUSEA Verified 04/08/20 09:22 Review of Systems Review of Systems Narrative: GENERAL: Denies chills, fatigue, malaise, fever, sweats, travel HEENT: Denies sinus pain, ear pain, sore throat, difficulty swallowing, neck pain RESPIRATORY: Denies dyspnea, cough, wheezing, hemoptysis, sputum. CARDIOVASCULAR: Denies chest pain, palpitations, orthopnea, edema GASTROINTESTINAL: Denies nausea, vomiting, abdominal pain, diarrhea, constipation, melena. : Denies dysuria, frequency, incontinence, hematuria, urinary retention, flank pain. MUSCULOSKELETAL: Denies weakness, joint pain, or bony pain SKIN: No rash, no erythema, no pruritus NEUROLOGIC: See HPI PSYCHIATRIC: No concerning psychosocial issues. 12 point review of systems is negative except for those stated above and HPI Patient History Medical History (Updated 04/08/20 @ 11:42 by Vivi Montoya DO) Anxiety Closed fracture of left humerus Endometriosis Fibromyalgia Heart palpitations History of asthma History of chronic hypertension History of COPD History of depression History of gastrointestinal ulcer History of kidney stones History of migraine History of panic attacks History of type 2 diabetes mellitus Hyperlipidemia Interstitial cystitis UTI (urinary tract infection) Surgical History History of urostomy S/P appendectomy Status post hysterectomy Status post left rotator cuff repair Family History Mother Diabetes mellitus Lupus Social History household members: spouse Smoking Status: Current every day smoker alcohol intake: current Smoking Status: Current every day smoker tobacco type: cigarettes alcohol intake frequency: holidays/special occasions only Substance Use Type: former substance user and marijuana Exam Initial Vital Signs Initial Vital Signs: Vital Signs Temperature 97.7 F 04/08/20 09:15 Pulse Rate 92 H 04/08/20 09:15 Respiratory Rate 24 04/08/20 09:15 Blood Pressure 151/73 H 04/08/20 09:15 Pulse Oximetry 100 04/08/20 09:15 GENERAL: Alert week chronically ill-appearing female appears in pain HEENT: Head atraumatic,EOMI, pupils reactive, face symmetric, [moist] mucous membranes CARDIOVASCULAR: Regular rate and rhythm without murmurs, rubs or gallops. RESPIRATORY: Breath sounds equal bilaterally, no wheezes rales or rhonchi. ABDOMEN: Soft, nontender. Normoactive bowel sounds all 4 quadrants. No guarding or rebound. EXTREMITIES: Normal range of motion, no clubbing or edema. Neurovascularly intact NEUROLOGICAL: Alert and oriented x4.Normal gait and speech. Cranial nerves II through XII grossly intact. Bilateral arm weakness SKIN: Warm, dry, no laceration, no petechiae, no rashes or lesions. Course Orders Ordered: ED Orders 04/08/20 09:38 CT head/brain wo con Stat Discontinued Medications Diphenhydramine HCl (Diphenhydramine 50 Mg/Ml Vial) 25 mg IV NOW ONE Stop: 04/08/20 10:42 Last Admin: 04/08/20 10:50 Dose: 25 mg Documented by: KBROTEM Sodium Chloride (Normal Saline 0.9%) 1,000 mls @ 1,000 mls/hr IV BOLUS ONE Stop: 04/08/20 10:46 Last Infusion: 04/08/20 11:51 Dose: 0 mls/hr Documented by: Admin: 04/08/20 10:49 Dose: 1,000 mls/hr Documented by: GRUPO Ketorolac Tromethamine (Ketorolac 60 Mg/2 Ml Vial) 30 mg IV NOW ONE Stop: 04/08/20 10:42 Last Admin: 04/08/20 10:49 Dose: 30 mg Documented by: GRUPO Ondansetron HCl (Ondansetron 4 Mg/2 Ml Inj) 4 mg IV NOW ONE Stop: 04/08/20 09:48 Last Admin: 04/08/20 10:49 Dose: 4 mg Documented by: GRUPO Prochlorperazine (Prochlorperazine 10 Mg/2 Ml Vial) 10 mg IV NOW ONE Stop: 04/08/20 10:42 Last Admin: 04/08/20 10:50 Dose: 10 mg Documented by: GRUPO Vital Signs Vital signs: Vital Signs - 8 hr 04/08/20 09:15 04/08/20 09:18 04/08/20 09:30 Temperature 97.7 F Pulse Rate 92 H 90 Respiratory Rate 24 Blood Pressure 151/73 H 151/73 H 131/75 Pulse Oximetry 100 99 04/08/20 09:52 04/08/20 10:00 04/08/20 10:30 Temperature Pulse Rate 88 87 86 Respiratory Rate Blood Pressure 120/66 124/73 Pulse Oximetry 99 99 100 04/08/20 11:00 04/08/20 11:30 Temperature Pulse Rate 87 80 Respiratory Rate Blood Pressure 138/81 Pulse Oximetry 99 99 MDM - Headache Imaging Data CT scan - head: Radiologist's Impression: PROCEDURE: CT HEAD/BRAIN WO CON INDICATIONS: headache x 2 weeks TECHNIQUE: Noncontrast 4.5 mm thick angled axial sections acquired from the foramen magnum to the vertex, with coronal and sagittal reformats. For radiation dose reduction, the following was used: automated exposure control, adjustment of mA and/or kV according to patient size. COMPARISON: None. FINDINGS: Image quality: Excellent. CSF spaces: Basal cisterns are patent. No extra-axial fluid collections. Ventricles are normal in size and shape. Brain: No midline shift. No intracranial masses or hemorrhage. Abel-white matter interface is normal. Skull and face: Calvarium and visualized facial bones are intact, without suspicious lesions. Sinuses: Visualized sinuses and mastoids are clear. IMPRESSION: No acute intracranial disease process. Dictated by: Tara Oshea MD, PhD on 04/08/2020 at 10:10 MDM Narrative Medical decision making narrative: Patient initially moaning weak all over barely able to open eyes. Patient is given migraine cocktail which does seem to help. She was not offered narcotics which she has previously asked for. She states she is overall feeling better and feels ready and able to go home. Discharge Plan Departure Patient Disposition: Home Clinical Impression: Migraine Qualifiers: Migraine type: unspecified Status migrainosus presence: without status migrainosus Intractability: not intractable Qualified Code(s): G43.909 - Migraine, unspecified, not intractable, without status migrainosus Instructions: DI for Migraine Activity Restrictions/Additional Instructions: *You have been diagnosed with migraine headache *What to do: Recommend going home and resting in a dark room hand getting some sleep. Her headache should continue to improve. *Continue to take medications as directed *Follow up with your primary care provider in 2-3 days *Return to ER if you should have worsening headache weakness facial droop weakness numbness or tingling or any new, worsening or concerning symptoms Prescriptions: No Action hydroxyzine HCl 25 MG tablet 50 mg PO BID Qty: 0 RF: 0 albuterol sulfate [Proventil HFA] 90 MCG/PUFF HFA aerosol inhaler 2 puff INH Q4HP PRN (Reason: Shortness Of Breath) Qty: 0 RF: 0 duloxetine 60 MG capsule,delayed release(DR/EC) 60 mg PO DAILY Qty: 0 RF: 0 gabapentin [Neurontin] 300 MG capsule 900 mg PO BID Qty: 0 RF: 0 multivitamin [Multiple Vitamins] 1 EACH tablet 1 tab PO DAILY Qty: 0 RF: 0 zolpidem [Ambien] 10 MG tablet 10 mg PO HS PRN (Reason: Insomnia) Qty: 0 RF: 0 lorazepam 0.5 mg tablet 0.5 mg PO DAILY RF: 0 methocarbamol 500 mg tablet 1,000 mg PO QID RF: 0 Humulin N NPH Insulin KwikPen 100 unit/mL (3 mL) insulin pen 10 unit SUBCUT BID RF: 0 Vitamin D3 Complete 2,000 units See Rx Instructions .ROUTE .COMPLEX RF: 0 quetiapine 100 mg Tablet 200 mg PO BEDTIME RF: 0 magnesium glycinate 100 mg Tablet 800 mg PO QPM RF: 0 melatonin 10 mg Tablet 20 mg PO BEDTIME RF: 0 levofloxacin 250 mg tablet 250 mg PO DAILY Qty: 7 RF: 0 tramadol [Ultram] 50 mg tablet 50 mg PO TID PRN (Reason: pain) Qty: 20 RF: 0 ropinirole [Requip] 0.25 mg tablet 0.25 mg PO BEDTIME Qty: 30 RF: 0 lisinopril 10 mg tablet 10 mg PO DAILY RF: 0 omeprazole 20 mg capsule,delayed release(DR/EC) 20 mg PO DAILY RF: 0 ondansetron 4 mg tablet,disintegrating 1 tab Translingual Q6H PRN (Reason: Nausea) RF: 0 Probiotic 1 tab PO DAILY RF: 0 vitamin E 1 cap PO DAILY RF: 0 cefuroxime axetil 250 mg tablet RF: 0 oxycodone-acetaminophen 5-325 mg tablet 1 tab PO Q6H PRN (Reason: pain) Qty: 14 RF: 0 Referrals: Fadi Ko DO [Primary Care Provider] -
[2020-04-08] MEDS: KETOROLAC 60 MG/2 ML VIAL 30 MG IV (10:49)
[2020-04-08] MEDS: SODIUM CHLORIDE 0.9% 1,000 ML 1000 ML IV (10:49)
[2020-04-08] MEDS: ONDANSETRON 4 MG/2 ML INJ IV (10:49)
[2020-04-08] MEDS: diphenhydrAMINE 50 MG/ML VIAL 25 MG IV (10:50)
[2020-04-08] MEDS: PROCHLORPERAZINE 10 MG/2 ML VIAL IV (10:50)
== END 2020-04-08 11:52 | disposition home or self-care (01) ==
PROVIDERS: Emergency Provider Emergency Medicine; PCP Family Medicine
DX: G43.909 Migraine, unspecified, not intractable, without status migrainosus (principal); R11.0 Nausea; E11.9 Type 2 diabetes mellitus without complications; I10 Essential (primary) hypertension; E78.5 Hyperlipidemia, unspecified; J44.9 Chronic obstructive pulmonary disease, unspecified
CPT/HCPCS: 36415; 70450; 96361; 96374; 96375; 99281; 99284; J0780; J1200; J1885; J2405

== ENCOUNTER 2020-04-16 10:55 | Emergency (ER) | payer OTHER, SELFPAY ==
[2019-12-08 16:05] VITALS: BMI 16.6
[2020-04-16] VITALS (9 sets, daily range): BP systolic 133–166; BP diastolic 70–86; PULSE 85–100; RESP 17; TEMP 36.3; O2SAT 99–100; BMI 18.6
--- NOTE | 2020-04-16 11:21 | DI.RAD.S_ITS ---
PROCEDURE: XR CHEST 1V INDICATIONS: chest pain, n/v TECHNIQUE: One view of the chest was acquired. COMPARISON: [facility], CR, XR CHEST 2V, 03/10/2020, 9:40. [facility], CR, XR CHEST 1V, 03/07/2020, 15:42. FINDINGS: Surgical changes and devices: None. Lungs and pleura: Lungs are clear. No pleural effusions or pneumothorax. Mediastinum: Mediastinal contours appear normal. Heart size is normal. Bones and chest wall: No suspicious bony lesions. Overlying soft tissues appear unremarkable. IMPRESSION: Normal for age, source of current chest pain symptoms is not seen. Dictated by: Akbar Ortiz M.D. on 04/16/2020 at 11:59 Approved by: Akbar Ortiz M.D. on 04/16/2020 at 12:03
--- NOTE | 2020-04-16 11:25 | ED.NAVMDI ---
HPI - Nausea/Vomiting/Diarrhea <Ramon YASMANI Jewell - Last Filed: 04/16/20 16:15> General Chief complaint: Nausea/Vomiting/Diarrhea Stated complaint: nausea x4 days Time Seen by Provider: 04/16/20 11:10 Source: patient Mode of arrival: Ambulatory Limitations: no limitations History of Present Illness HPI Narrative: This is a 54 year female, smoker, who has past medical history significant for COPD, hypertension, fibromyalgia, urostomy with multiple kidney infections, type 2 diabetes presents to ED with chief complain of nausea for 4 days. Reports was not able to tolerate solid foods since yesterday but is able to tolerate small sips of liquid. Patient denies fever, chills. She reports chest pain all over in her anterior chest which radiating down to bilateral flanks. Patient is in tears and requesting something for pain. PCP Mony and couldn't get into see her. Patient's spouse reports Phenergan that was prescribed by [facility] helped somewhat with the nausea. Patient has prescribed Septra DS for some type of infection and thinks urine infection but she was not able to tolerate due to nausea. She was able to tolerate 1 dose so far. Related Data Home Medications Medication Instructions Recorded Confirmed albuterol sulfate [Proventil HFA] 2 puff INH Q4HP PRN #0 01/08/13 12/08/19 hydroxyzine HCl 50 mg PO BID #0 01/08/13 12/08/19 duloxetine 60 mg PO DAILY #0 07/04/17 12/08/19 gabapentin [Neurontin] 900 mg PO BID #0 07/04/17 12/08/19 multivitamin [Multiple Vitamins] 1 tab PO DAILY #0 07/04/17 12/08/19 zolpidem [Ambien] 10 mg PO HS PRN #0 07/04/17 12/08/19 Probiotic 1 tab PO DAILY 09/26/17 12/08/19 lisinopril 10 mg PO DAILY 09/26/17 12/08/19 omeprazole 20 mg PO DAILY 09/26/17 12/08/19 ondansetron 1 tab TRANSLINGUAL Q6H PRN 09/26/17 12/08/19 vitamin E 1 cap PO DAILY 09/26/17 12/08/19 lorazepam 0.5 mg PO DAILY 05/30/18 12/08/19 Humulin N NPH Insulin KwikPen 10 unit SUBCUT BID 05/17/19 12/08/19 methocarbamol 1,000 mg PO QID 05/17/19 12/08/19 Vitamin D3 Complete See Rx Instructions .ROUTE .COMPLEX 11/04/19 12/08/19 quetiapine 200 mg PO BEDTIME 11/04/19 12/08/19 magnesium glycinate 800 mg PO QPM 12/08/19 12/08/19 melatonin 20 mg PO BEDTIME 12/08/19 12/08/19 cefuroxime axetil 03/07/20 Previous Rx's Medication Instructions Recorded levofloxacin 250 mg PO DAILY #7 tab 12/10/19 ropinirole [Requip] 0.25 mg PO BEDTIME #30 tab 12/10/19 tramadol [Ultram] 50 mg PO TID PRN #20 tab 12/10/19 oxycodone-acetaminophen 1 tab PO Q6H PRN #14 tab 03/10/20 promethazine 25 mg PO TID PRN #10 tab 04/16/20 sucralfate 1 g PO TID #200 ml 04/16/20 Allergies Allergy/AdvReac Type Severity Reaction Status Date / Time mupirocin Allergy Unknown Verified 04/08/20 09:22 naproxen Allergy Unknown Verified 04/08/20 09:22 Penicillins Allergy Unknown SINCE Verified 04/08/20 09:22 CHILDHOOD droperidol AdvReac Unknown Verified 04/08/20 09:22 fenofibrate [FENOFIBRATE] AdvReac Unknown Verified 04/08/20 09:22 ibuprofen AdvReac Unknown NAUSEA Verified 04/08/20 09:22 metformin [METFORMIN] AdvReac Unknown Verified 04/08/20 09:22 metoclopramide AdvReac Unknown BECAME Verified 04/08/20 09:22 JITTERY AND ANXIOUS nitrofurantoin AdvReac Unknown NAUSEA Verified 04/08/20 09:22 Review of Systems <YASMANI Peng - Last Filed: 04/16/20 16:15> Review of Systems Narrative: General: Denies fever, chills, fatigue, malaise, sweats. HEENT: Denies sinus pain, ear pain, sore throat, difficulty swallowing, dizziness. Respiratory: Denies dyspnea, cough, wheezing, hemoptysis, sputum. Cardiovascular: See HP a Gastrointestinal: See HPI : Denies dysuria, frequency, incontinence, hematuria, urinary retention. Musculoskeletal: Denies weakness, joint pain or bony pain, flank pain. Skin: Denies rash, skin lesions, or other. Neurologic: Denies weakness, headache, numbness, change in speech, confusion, seizures, incoordination. Psychiatric: No concerning psychosocial issues. 12-point review of systems is negative except for those stated above. Patient History <YASMANI Peng - Last Filed: 04/16/20 16:15> Medical History (Updated 04/16/20 @ 14:47 by YASMANI Peng) Anxiety Closed fracture of left humerus Endometriosis Fibromyalgia Heart palpitations History of asthma History of chronic hypertension History of COPD History of depression History of gastrointestinal ulcer History of kidney stones History of migraine History of panic attacks History of type 2 diabetes mellitus Hyperlipidemia Interstitial cystitis UTI (urinary tract infection) Surgical History History of urostomy S/P appendectomy Status post hysterectomy Status post left rotator cuff repair Family History Mother Diabetes mellitus Lupus Social History household members: spouse Smoking Status: Current every day smoker alcohol intake: current Smoking Status: Current every day smoker tobacco type: cigarettes alcohol intake frequency: holidays/special occasions only Substance Use Type: former substance user and marijuana Exam <YASMANI Peng - Last Filed: 04/16/20 16:15> Narrative Exam Narrative: GEN: Alert, oriented x 3, thin appearing and in no acute distress. Head: Normal cephalic, atraumatic. No scalp or temporal tenderness, palpable mass or rash. EYES: Pupils are equal, round, and reactive to light and accommodation. Extraocular muscles are intact bilaterally. There is no subconjunctival hemorrhage, exudate and sclera non-icteric. ENT: Hearing grossly intact. Nose without bleeding, purulent discharge or deviation. Facial sinuses nontender to palpate. Mucous membrane moist, no mucosal lesion. Throat without erythema, tonsillar hypertrophy or exudate. Uvula in midline, airway patent. Neck: Trachea in midline. No JVD, non-tender without lymphadenopathy. No masses or thyroid megaly. Supple, non-tender and no meningeal signs. CARDIAC: Normal regular rate and rhythm without murmurs, gallops, or rubs. No chest wall tenderness. No peripheral edema, cyanosis or pallor. Capillary refill is less than 2 seconds. RESPIRATORY: Lungs are clear to auscultate bilaterally. No cough, wheezes, rales, or rhonchi. No stridor, respiratory distress, increase work of breathing, or accessary muscle used. ABD: Abdomen flat, tender to palpate in epigastric region. No guarding or rebound tenderness to palpate in right lower quadrant. Bowel sounds are normal in all 4 quadrants. There is no palpable masses or organomegaly. Urostomy on right abdomen draining clear yellow urine. EXT: Full painless ROM of all extremities with no loss of sensation, strength, effusion or edema. SKIN: Warm, dry, normal color for patient. No erythema, lesions or rash over visible areas. BACK: Nontender without deformity or crepitance. Right flank pain to percuss, no spinous tenderness to palpate. NEUROLOGICAL: Alert and oriented to place, time and person. Sensation and motor function intact bilaterally. No facial droops, dysphasia. PSYCHIATRIC: Good judgement and reason, without hallucinations, abnormal affect or abnormal behaviors during the examination. Patient is not suicidal. During obtaining history, patient became tearful and crying. She has asked several times was the plan for pain. Initial Vital Signs Initial Vital Signs: Vital Signs Temperature 97.4 F L 04/16/20 11:04 Pulse Rate 100 H 04/16/20 11:04 Respiratory Rate 17 04/16/20 11:04 Blood Pressure 147/78 H 04/16/20 11:04 Pulse Oximetry 100 04/16/20 11:04 <Brenton Drew DO - Last Filed: 04/16/20 18:07> Initial Vital Signs Initial Vital Signs: Vital Signs Temperature 97.4 F L 04/16/20 11:04 Pulse Rate 100 H 04/16/20 11:04 Respiratory Rate 17 04/16/20 11:04 Blood Pressure 147/78 H 04/16/20 11:04 Pulse Oximetry 100 04/16/20 11:04 Course <YASMANI Peng - Last Filed: 04/16/20 16:15> Orders Ordered: ED Orders 04/16/20 11:21 XR chest 1V Stat 04/16/20 11:25 EKG-12 Lead Stat 04/16/20 13:52 Urine Culture Stat 04/16/20 14:13 Consult to [facility] - Sewer Pipe Cleaner Stat Discontinued Medications Al Hydrox/Mg Hydrox/Simethicone 20 ml/ Lidocaine HCl 15 ml 0 ml PO NOW ONE Stop: 04/16/20 13:56 Last Admin: 04/16/20 14:07 Dose: 35 ml Documented by: RAHEEM Diphenhydramine HCl (Diphenhydramine 50 Mg/Ml Vial) 25 mg IV NOW ONE Stop: 04/16/20 13:15 Last Admin: 04/16/20 13:20 Dose: 25 mg Documented by: RAHEEM Sodium Chloride (Normal Saline 0.9%) 1,000 mls @ 1,000 mls/hr IV BOLUS ONE Stop: 04/16/20 12:18 Last Infusion: 04/16/20 14:30 Dose: 0 mls/hr Documented by: Admin: 04/16/20 11:47 Dose: 1,000 mls/hr Documented by: RAHEEM Ketorolac Tromethamine (Ketorolac 60 Mg/2 Ml Vial) 15 mg IV NOW ONE Stop: 04/16/20 13:15 Last Admin: 04/16/20 13:23 Dose: 15 mg Documented by: RAHEEM Ondansetron HCl (Ondansetron 4 Mg/2 Ml Inj) 4 mg IV NOW ONE Stop: 04/16/20 11:20 Last Admin: 04/16/20 11:48 Dose: 4 mg Documented by: RAHEEM Pantoprazole Sodium (Pantoprazole 40 Mg Vial) 40 mg IV NOW ONE Stop: 04/16/20 11:20 Last Admin: 04/16/20 11:48 Dose: 40 mg Documented by: RAHEEM Prochlorperazine (Prochlorperazine 10 Mg/2 Ml Vial) 10 mg IV NOW ONE Stop: 04/16/20 13:15 Last Admin: 04/16/20 13:24 Dose: 10 mg Documented by: RAHEEM Reevaluation(s) Reevaluation #1: Having difficult time obtaining blood with IV start, with multiple application development consultant. Time: 12:45 Reevaluation #2: Unable to obtain blood after multiple trial at this time. Requested old record from [facility] from yesterday 4 days ago visits to see if patient had any labs drawn at that time. Medicating patient with Benadryl, Compazine, and Toradol for pain and nausea. Time: 13:36 Reevaluation #3: Patient reports her symptoms much improved at this time and would like to be discharged to home. Time: 14:40 Consultations Consultation #1: Consulted SUPPLIER SPECIALIST for frequent ED visits and assessment for social needs Time: 14:15 Vital Signs Vital signs: Vital Signs - 8 hr 04/16/20 11:04 04/16/20 13:04 04/16/20 13:05 Temperature 97.4 F L Pulse Rate 100 H 94 H 93 H Respiratory Rate 17 Blood Pressure 147/78 H 147/70 H Pulse Oximetry 100 99 99 04/16/20 13:24 04/16/20 13:25 04/16/20 13:30 Temperature Pulse Rate 93 H 91 H 92 H Respiratory Rate Blood Pressure 166/84 H 166/84 H Pulse Oximetry 100 100 04/16/20 13:32 04/16/20 14:00 04/16/20 14:30 Temperature Pulse Rate 91 H 85 85 Respiratory Rate Blood Pressure 145/76 H 141/73 H 133/86 Pulse Oximetry 100 100 100 <Brenton Drew DO - Last Filed: 04/16/20 18:07> Orders Ordered: ED Orders 04/16/20 11:21 XR chest 1V Stat 04/16/20 11:25 EKG-12 Lead Stat 04/16/20 13:52 Urine Culture Stat 04/16/20 14:13 Consult to SUPPLIER SPECIALIST - Sewer Pipe Cleaner Stat Discontinued Medications Al Hydrox/Mg Hydrox/Simethicone 20 ml/ Lidocaine HCl 15 ml 0 ml PO NOW ONE Stop: 04/16/20 13:56 Last Admin: 04/16/20 14:07 Dose: 35 ml Documented by: RAHEEM Diphenhydramine HCl (Diphenhydramine 50 Mg/Ml Vial) 25 mg IV NOW ONE Stop: 04/16/20 13:15 Last Admin: 04/16/20 13:20 Dose: 25 mg Documented by: RAHEEM Sodium Chloride (Normal Saline 0.9%) 1,000 mls @ 1,000 mls/hr IV BOLUS ONE Stop: 04/16/20 12:18 Last Infusion: 04/16/20 14:30 Dose: 0 mls/hr Documented by: Admin: 04/16/20 11:47 Dose: 1,000 mls/hr Documented by: RAHEEM Ketorolac Tromethamine (Ketorolac 60 Mg/2 Ml Vial) 15 mg IV NOW ONE Stop: 04/16/20 13:15 Last Admin: 04/16/20 13:23 Dose: 15 mg Documented by: RAHEEM Ondansetron HCl (Ondansetron 4 Mg/2 Ml Inj) 4 mg IV NOW ONE Stop: 04/16/20 11:20 Last Admin: 04/16/20 11:48 Dose: 4 mg Documented by: RAHEEM Pantoprazole Sodium (Pantoprazole 40 Mg Vial) 40 mg IV NOW ONE Stop: 04/16/20 11:20 Last Admin: 04/16/20 11:48 Dose: 40 mg Documented by: RAHEEM Prochlorperazine (Prochlorperazine 10 Mg/2 Ml Vial) 10 mg IV NOW ONE Stop: 04/16/20 13:15 Last Admin: 04/16/20 13:24 Dose: 10 mg Documented by: RAHEEM Vital Signs Vital signs: Vital Signs - 8 hr 04/16/20 11:04 04/16/20 13:04 04/16/20 13:05 Temperature 97.4 F L Pulse Rate 100 H 94 H 93 H Respiratory Rate 17 Blood Pressure 147/78 H 147/70 H Pulse Oximetry 100 99 99 04/16/20 13:24 04/16/20 13:25 04/16/20 13:30 Temperature Pulse Rate 93 H 91 H 92 H Respiratory Rate Blood Pressure 166/84 H 166/84 H Pulse Oximetry 100 100 04/16/20 13:32 04/16/20 14:00 04/16/20 14:30 Temperature Pulse Rate 91 H 85 85 Respiratory Rate Blood Pressure 145/76 H 141/73 H 133/86 Pulse Oximetry 100 100 100 MDM - Nausea/Vomiting/Diarrhea <Ramon YASMANI Jeewll - Last Filed: 04/16/20 16:15> Differential Diagnosis Differential diagnosis: Likely gastroenteritis, dehydration and other (Electrolytes imbalance, ACS, bladder infection, pyelonephritis, gastritis) Medical Records Attestation: I reviewed the patient's medical records. Lab Data Labs: Urine Dip Bedside Urine Glucose Negative Bedside Urine Bilirubin - Negative Bedside Urine Ketone - Negative Urine Specific [place] 1.015 Bedside Urine Occult Blood - Negative Bedside Urine pH 7.0 Bedside Urine Protein +/- 15 Bedside Urine Urobilinogen - Negative Bedside Urine Nitrite - Negative Bedside Urine Leukocytes - Negative Esterase Imaging Data Chest x-ray: Radiologist's Impression: [address] [id number] ReportSigned Patient: Melvi Gibbs NMR#: [id number]: 1965Acct:[id number]/Sex: 54 / FDate of Service: 04/16/20Loc: EDAccession Number: [id number] Procedure: XR chest 1V Ordering Provider: Ramon Jewell PROCEDURE: XR CHEST 1V INDICATIONS: chest pain, n/v TECHNIQUE: One view of the chest was acquired. COMPARISON: [facility], CR, XR CHEST 2V, 03/10/2020, 9:40. [facility], CR, XR CHEST 1V, 03/07/2020, 15:42. FINDINGS: Surgical changes and devices: None. Lungs and pleura: Lungs are clear. No pleural effusions or pneumothorax. Mediastinum: Mediastinal contours appear normal. Heart size is normal. Bones and chest wall: No suspicious bony lesions. Overlying soft tissues appear unremarkable. IMPRESSION: Normal for age, source of current chest pain symptoms is not seen. Dictated by: Akbar Ortiz M.D. on 04/16/2020 at 11:59 Approved by: Akbar Ortiz M.D. on 04/16/2020 at 12:03 ECG Data Attestation: I personally reviewed and interpreted this ECG as follows: Prior ECG tracings: available for review Interpretation: Normal sinus rhythm rate at 94. Left dominant axis. FL interval 148, QRS duration 74, QT/QTC 366/[address] changes Similar ECG tracings from previous EKGs MDM Narrative Medical decision making narrative: This is a 54 year female who has complicated medical history presents to ED with nausea, vomiting, epigastric pain for last 4 days. Patient had evaluation in [facility] twice for same chief complaint. Patient was discharged to home with [place] and Phenergan for symptoms and patient and spouse reports Phenergan has been helping somewhat for her symptoms but this medication ran out. Patient does have an appointment with PCP in next day or 2. EKG without acute ST changes. No signs of hyperkalemia. IV insertion was successful to treat her symptoms with IV fluid, Zofran, Benadryl, Compazine, Toradol, GI cocktail, Protonix but experience difficult all blood draw by multiple application development consultant and RN. Old records requested from [facility] to review previous lab tests results. According to [facility] records, patient had mild hyperkalemia range from 5.6-6.4 and reports it was a difficult blood draw which could be a hemolyzed sample. Otherwise left for assuring from [facility] record. Chest x-ray without acute findings. Urine test or POC negative for urine leuks or nitrites. Patient had 1 dose of Septra DS her [facility] with concerns for E coli urine culture test was obtained 5 days ago. Spouse reports patient has difficult time tolerating this medication with nausea. Urine culture is pending. Informed patient and spouse that patient cannot tolerate antibiotic medication at this time, she could hold until we receive today's urine culture test. Patient discharged to home with additional Phenergan, sucralfate for epigastric pain and nausea. Patient advise continue with omeprazole at home and Mylanta as needed for her symptoms. Return precautions were discussed with patient and she and spouse verbalized understanding and in agreement with the treatment plan. <Brenton Drew, - Last Filed: 04/16/20 18:07> Lab Data Labs: Urine Dip Bedside Urine Glucose Negative Bedside Urine Bilirubin - Negative Bedside Urine Ketone - Negative Urine Specific [place] 1.015 Bedside Urine Occult Blood - Negative Bedside Urine pH 7.0 Bedside Urine Protein +/- 15 Bedside Urine Urobilinogen - Negative Bedside Urine Nitrite - Negative Bedside Urine Leukocytes - Negative Esterase Discharge Plan Departure Patient Disposition: Home Clinical Impression: Epigastric abdominal pain Gastritis Qualifiers: Gastritis type: unspecified gastritis Chronicity: acute Gastritis bleeding: presence of bleeding unspecified Qualified Code(s): K29.00 - Acute gastritis without bleeding Instructions: DI for Gastritis, DI for Epigastric Pain Activity Restrictions/Additional Instructions: You have been diagnosed with [epigastric pain and gastritis. Urine cultures pending but urine dipstick test in ED without obvious infection indication. You will receive a phone call from us if you require antibiotic medication treatment for urine infection. EKG normal sinus rhythm without signs of hyperkalemia. Chest x-ray without acute findings.]. What to do: *Take your medications as directed. Please take promethazine as needed for nausea. This can cause drowsiness so please take precaution not driving, drinking alcohol, or operating heavy equipments. Hydrate adequately and eat bland diet. Take sucralfate for epigastric pain for next several days and continue to use your omeprazole. This medication have been transmitted to [facility]. *Follow up with your primary care provider in 2-3 days, call for an appointment. Let them know you were seen in the ED and that we asked you to be seen in follow up. *Return to ED if you have any new, worsening, or concerning symptoms, such as [worsening pain, blood in her stool or emesis, chest pain, breathing difficulty, unable to tolerate fluids, near syncope, fever or any acute concerns]. Prescriptions: New promethazine 25 mg tablet 25 mg PO TID PRN (Reason: nausea and vomiting) Qty: 10 RF: 0 sucralfate 100 mg/mL suspension 1 g PO TID Qty: 200 RF: 0 No Action hydroxyzine HCl 25 MG tablet 50 mg PO BID Qty: 0 RF: 0 albuterol sulfate [Proventil HFA] 90 MCG/PUFF HFA aerosol inhaler 2 puff INH Q4HP PRN (Reason: Shortness Of Breath) Qty: 0 RF: 0 duloxetine 60 MG capsule,delayed release(DR/EC) 60 mg PO DAILY Qty: 0 RF: 0 gabapentin [Neurontin] 300 MG capsule 900 mg PO BID Qty: 0 RF: 0 multivitamin [Multiple Vitamins] 1 EACH tablet 1 tab PO DAILY Qty: 0 RF: 0 zolpidem [Ambien] 10 MG tablet 10 mg PO HS PRN (Reason: Insomnia) Qty: 0 RF: 0 lorazepam 0.5 mg tablet 0.5 mg PO DAILY RF: 0 methocarbamol 500 mg tablet 1,000 mg PO QID RF: 0 Humulin N NPH Insulin KwikPen 100 unit/mL (3 mL) insulin pen 10 unit SUBCUT BID RF: 0 Vitamin D3 Complete 2,000 units See Rx Instructions .ROUTE .COMPLEX RF: 0 quetiapine 100 mg Tablet 200 mg PO BEDTIME RF: 0 magnesium glycinate 100 mg Tablet 800 mg PO QPM RF: 0 melatonin 10 mg Tablet 20 mg PO BEDTIME RF: 0 levofloxacin 250 mg tablet 250 mg PO DAILY Qty: 7 RF: 0 tramadol [Ultram] 50 mg tablet 50 mg PO TID PRN (Reason: pain) Qty: 20 RF: 0 ropinirole [Requip] 0.25 mg tablet 0.25 mg PO BEDTIME Qty: 30 RF: 0 lisinopril 10 mg tablet 10 mg PO DAILY RF: 0 omeprazole 20 mg capsule,delayed release(DR/EC) 20 mg PO DAILY RF: 0 ondansetron 4 mg tablet,disintegrating 1 tab Translingual Q6H PRN (Reason: Nausea) RF: 0 Probiotic 1 tab PO DAILY RF: 0 vitamin E 1 cap PO DAILY RF: 0 cefuroxime axetil 250 mg tablet RF: 0 oxycodone-acetaminophen 5-325 mg tablet 1 tab PO Q6H PRN (Reason: pain) Qty: 14 RF: 0 Referrals: Fadi Ko DO [Primary Care Provider] - <Brenton Drew DO - Last Filed: 04/16/20 18:07> Cosign ED Attending Cosignature Attestation: Dr Drew Co-Sign Statement: I was available for consultation during this patient's emergency department visit. This chart is signed by myself for administrative purposes only. I did not have direct contact with this patient during this visit. They were seen independently by the APC.
[2020-04-16] MEDS: SODIUM CHLORIDE 0.9% 1,000 ML 1000 ML IV (11:47)
[2020-04-16] MEDS: ONDANSETRON 4 MG/2 ML INJ IV (11:48)
[2020-04-16] MEDS: PANTOPRAZOLE 40 MG VIAL IV (11:48)
[2020-04-16] MEDS: diphenhydrAMINE 50 MG/ML VIAL 25 MG IV (13:20)
[2020-04-16] MEDS: KETOROLAC 60 MG/2 ML VIAL 15 MG IV (13:23)
[2020-04-16] MEDS: PROCHLORPERAZINE 10 MG/2 ML VIAL IV (13:24)
[2020-04-16] MEDS: MAG HYDROX/ALUMINUM/SIMETH SUS 20 ML, LIDOCAINE VISCOUS 2% 15 ML PO (14:07)
--- NOTE | 2020-04-16 14:42 | CM.SWNOTE ---
PATIENT SUPPORT REPRESENTATIVE note PATIENT SUPPORT REPRESENTATIVE consult requested for patient. Patient is a 54 y/o female who is familiar to this ED with multiple ED visits during past 30 days. PATIENT SUPPORT REPRESENTATIVE enters room and speaks with patient and . Patient reports she is feeling better and denies any needs from PATIENT SUPPORT REPRESENTATIVE at this time. Patient requests that PATIENT SUPPORT REPRESENTATIVE inform provider that patient is ready to be d/c. PATIENT SUPPORT REPRESENTATIVE exits room and informs provider of the above. MYNOR Davis
== END 2020-04-16 15:00 | disposition home or self-care (01) ==
PROVIDERS: Emergency Provider Nurse Practitioner Family; PCP Family Medicine
DX: R10.13 Epigastric pain (principal); K29.00 Acute gastritis without bleeding; J44.9 Chronic obstructive pulmonary disease, unspecified; I10 Essential (primary) hypertension; M79.7 Fibromyalgia; E11.9 Type 2 diabetes mellitus without complications; E78.5 Hyperlipidemia, unspecified; R07.9 Chest pain, unspecified
CPT/HCPCS: 36415; 71045; 81003; 87077; 87086; 87185; 87186; 93005; 93010; 96361; 96374; 96375; 99284; C9113; J0780; J1200; J1885; J2405

== ENCOUNTER 2020-04-19 09:53 | Emergency (ER) | payer OTHER, SELFPAY ==
[2019-12-08 16:05] VITALS: BMI 16.6
[2020-04-19 09:55] VITALS: BP 178/90; PULSE 111; RESP 16; TEMP 36.9; O2SAT 96
[2020-04-19 09:59] VITALS: BP 169/90; PULSE 107; O2SAT 96
[2020-04-19 10:00] VITALS: BP 178/90; PULSE 108; O2SAT 100
--- NOTE | 2020-04-19 10:07 | ED.GENADULT ---
HPI - General Adult General Chief complaint: Urogenital-Female Stated complaint: back and stomach pain Time Seen by Provider: 04/19/20 09:57 Source: patient Mode of arrival: Ambulatory Limitations: no limitations History of Present Illness HPI narrative: 54-year-old female with multiple chronic medical problems was well known to this department and myself. She arrives today for upper abdominal pain which she describes as nausea and also back pain. She has had multiple urinary tract infections in the past. She states she has been able to drink small amounts of water over the past 24 hours. She has Zofran and Phenergan at home which she states does not improve her nausea. She was seen here in the part [facility] 2 days ago. Her urine culture obtained during that visit just resulted today and shows greater than 100,000 colony-forming units of both MRSA and Enterococcus. Related Data Home Medications Medication Instructions Recorded Confirmed albuterol sulfate [Proventil HFA] 2 puff INH Q4HP PRN #0 01/08/13 04/19/20 hydroxyzine HCl 50 mg PO BID #0 01/08/13 12/08/19 duloxetine 60 mg PO DAILY #0 07/04/17 12/08/19 gabapentin [Neurontin] 900 mg PO BID #0 07/04/17 12/08/19 multivitamin [Multiple Vitamins] 1 tab PO DAILY #0 07/04/17 12/08/19 zolpidem [Ambien] 10 mg PO HS PRN #0 07/04/17 04/19/20 Probiotic 1 tab PO DAILY 09/26/17 12/08/19 lisinopril 10 mg PO DAILY 09/26/17 12/08/19 omeprazole 20 mg PO DAILY 09/26/17 12/08/19 ondansetron 1 tab TRANSLINGUAL Q6H PRN 09/26/17 12/08/19 lorazepam 0.5 mg PO DAILY 05/30/18 12/08/19 Humulin N NPH Insulin KwikPen 10 unit SUBCUT BID 05/17/19 12/08/19 methocarbamol 1,000 mg PO QID 05/17/19 12/08/19 quetiapine 300 mg PO BEDTIME 11/04/19 04/19/20 magnesium glycinate 800 mg PO QPM 12/08/19 12/08/19 melatonin 20 mg PO BEDTIME 12/08/19 12/08/19 Previous Rx's Medication Instructions Recorded ropinirole [Requip] 0.25 mg PO BEDTIME #30 tab 12/10/19 tramadol [Ultram] 50 mg PO TID PRN #20 tab 12/10/19 oxycodone-acetaminophen 1 tab PO Q6H PRN #14 tab 03/10/20 promethazine 25 mg PO TID PRN #10 tab 04/16/20 sucralfate 1 g PO TID #200 ml 04/16/20 linezolid 600 mg PO Q12H 10 Days #20 tab 04/19/20 promethazine 25 mg AL Q4-6H PRN #12 ea 04/19/20 Allergies Allergy/AdvReac Type Severity Reaction Status Date / Time mupirocin Allergy Unknown Verified 04/19/20 10:02 naproxen Allergy Unknown Verified 04/19/20 10:02 Penicillins Allergy Unknown SINCE Verified 04/19/20 10:02 CHILDHOOD droperidol AdvReac Unknown Verified 04/19/20 10:02 fenofibrate [FENOFIBRATE] AdvReac Unknown Verified 04/19/20 10:02 ibuprofen AdvReac Unknown NAUSEA Verified 04/19/20 10:02 metformin [METFORMIN] AdvReac Unknown Verified 04/19/20 10:02 metoclopramide AdvReac Unknown BECAME Verified 04/19/20 10:02 JITTERY AND ANXIOUS nitrofurantoin AdvReac Unknown NAUSEA Verified 04/19/20 10:02 Review of Systems Constitutional Constitutional: Denies fever(s) Cardiovascular Cardiovascular: Denies chest pain and Denies dyspnea Respiratory Respiratory: Denies dyspnea Gastrointestinal Gastrointestinal: Reports abdominal pain, Denies change in bowel habits and Reports nausea Musculoskeletal Musculoskeletal: Reports back pain Integumentary/Breasts Skin/Breast: Denies lesions and Denies rash Neurologic Neurologic: Denies behavioral changes Psychiatric Psychiatric: Denies behavioral changes Hematologic/Lymphatic On Anticoagulants: No Allergic/Immunologic Allergic/Immunologic: Denies urticaria Patient History Medical History Anxiety Closed fracture of left humerus Endometriosis Fibromyalgia Heart palpitations History of asthma History of chronic hypertension History of COPD History of depression History of gastrointestinal ulcer History of kidney stones History of migraine History of panic attacks History of type 2 diabetes mellitus Hyperlipidemia Interstitial cystitis UTI (urinary tract infection) Surgical History History of urostomy S/P appendectomy Status post hysterectomy Status post left rotator cuff repair Family History Mother Diabetes mellitus Lupus Social History household members: spouse Smoking Status: Current every day smoker alcohol intake: current Smoking Status: Current every day smoker tobacco type: cigarettes alcohol intake frequency: holidays/special occasions only Substance Use Type: former substance user and marijuana Exam Initial Vital Signs Initial Vital Signs: Vital Signs Temperature 98.5 F 04/19/20 09:55 Pulse Rate 111 H 04/19/20 09:55 Respiratory Rate 16 04/19/20 09:55 Blood Pressure 178/90 H 04/19/20 09:55 Pulse Oximetry 96 04/19/20 09:55 Const General: cooperative Limitations: mental status not altered HENMT Head: normal to inspection and normocephalic Resp Effort & Inspection: not labored and tachypneic Cardio Rate: tachycardic GI Palpation: soft and tender (Epigastric) Back/Spine/Pelvis Back: CVA tenderness Neuro General: patient alert, patient oriented x3 and moves all extremities Extrem General: No edema Psych Appearance: disheveled Mood: anxious mood Course Orders Ordered: Discontinued Medications Lorazepam (Lorazepam 0.5 Mg Tablet) 1 mg PO NOW ONE Stop: 04/19/20 10:09 Last Admin: 04/19/20 10:16 Dose: 1 mg Documented by: Vital Signs Vital signs: Vital Signs - 8 hr 04/19/20 09:55 04/19/20 09:59 04/19/20 10:00 Temperature 98.5 F Pulse Rate 111 H 107 H 108 H Respiratory Rate 16 Blood Pressure 178/90 H 169/90 H 178/90 H Pulse Oximetry 96 96 100 Medical Decision Making Lab Data Labs: Point of Care Testing Glucose POC 297 Point of care testing: Point of Care Testing Glucose POC 297 MDM Narrative Medical decision making narrative: Patient has had behaviors in the past that are consistent with drug-seeking. This is also complicated by her chronic medical issues for which she has required admission in the hospital in the past. Fairly shortly after I entered the room the patient requested pain medication. I informed her that I would be happy to try non opioid pain relief but given her history she would not be receiving opioid pain medications here in the emergency department today. I did inform her that the urine culture from a couple days ago did result showing a potential for urinary tract infection. We discussed her nausea. After this discussion we will and rectal Phenergan to her medications that she has at home. Review the patient's medication history shows that she has been on linezolid in the past. The susceptibilities to her urine culture shows that both the Enterococcus in the MRSA were susceptible to this medication. These medications were electronically transmitted to the pharmacy of her choice. When I informed her that she would not be receiving opioid pain medication she stated to the nursing staff that she would like to be discharged home. Her brother who is at bedside convinced her to stay. Initially offered Ativan but the patient declined. When I informed the patient that she would be discharged home she then accepted the Ativan. During my 2nd interview with the patient we discussed discharge instructions she was much more calm. She was not writhing in bed. She has not thrown up since being here in the ER. I do feel that we can hold on labs for now. She has had extremely hard individual to obtain an IV and labs on. In the future I would be extremely reluctant to administer opioid pain medication. Discharge Plan Departure Patient Disposition: Home Clinical Impression: Nausea, UTI (urinary tract infection) Instructions: DI for Urinary Tract Infection (UTI) Activity Restrictions/Additional Instructions: A prescription for antibiotics and Phenergan suppositories was electronically transmitted to the pharmacy of your choice. Please take them as directed. Continue the rest your medicines as directed. Contact your primary provider for follow-up. Return to the emergency department for any new or worsening symptoms Prescriptions: New promethazine 25 mg suppository 25 mg AL Q4-6H PRN (Reason: nausea and vomiting) Qty: 12 RF: 0 linezolid 600 mg tablet 600 mg PO Q12H 10 Days Qty: 20 RF: 0 No Action hydroxyzine HCl 25 MG tablet 50 mg PO BID Qty: 0 RF: 0 albuterol sulfate [Proventil HFA] 90 MCG/PUFF HFA aerosol inhaler 2 puff INH Q4HP PRN (Reason: Shortness Of Breath) Qty: 0 RF: 0 duloxetine 60 MG capsule,delayed release(DR/EC) 60 mg PO DAILY Qty: 0 RF: 0 gabapentin [Neurontin] 300 MG capsule 900 mg PO BID Qty: 0 RF: 0 multivitamin [Multiple Vitamins] 1 EACH tablet 1 tab PO DAILY Qty: 0 RF: 0 zolpidem [Ambien] 10 MG tablet 10 mg PO HS PRN (Reason: Insomnia) Qty: 0 RF: 0 lorazepam 0.5 mg tablet 0.5 mg PO DAILY RF: 0 methocarbamol 500 mg tablet 1,000 mg PO QID RF: 0 Humulin N NPH Insulin KwikPen 100 unit/mL (3 mL) insulin pen 10 unit SUBCUT BID RF: 0 quetiapine 100 mg Tablet 300 mg PO BEDTIME RF: 0 magnesium glycinate 100 mg Tablet 800 mg PO QPM RF: 0 melatonin 10 mg Tablet 20 mg PO BEDTIME RF: 0 tramadol [Ultram] 50 mg tablet 50 mg PO TID PRN (Reason: pain) Qty: 20 RF: 0 ropinirole [Requip] 0.25 mg tablet 0.25 mg PO BEDTIME Qty: 30 RF: 0 lisinopril 10 mg tablet 10 mg PO DAILY RF: 0 omeprazole 20 mg capsule,delayed release(DR/EC) 20 mg PO DAILY RF: 0 ondansetron 4 mg tablet,disintegrating 1 tab Translingual Q6H PRN (Reason: Nausea) RF: 0 Probiotic 1 tab PO DAILY RF: 0 oxycodone-acetaminophen 5-325 mg tablet 1 tab PO Q6H PRN (Reason: pain) Qty: 14 RF: 0 promethazine 25 mg tablet 25 mg PO TID PRN (Reason: nausea and vomiting) Qty: 10 RF: 0 sucralfate 100 mg/mL suspension 1 g PO TID Qty: 200 RF: 0 Referrals: Fadi Ko DO [Primary Care Provider] -
[2020-04-19] MEDS: LORazepam 0.5 MG TABLET 1 MG PO (10:16)
[2020-04-19 11:08] VITALS: BP 160/82; PULSE 100; RESP 18; O2SAT 99
== END 2020-04-19 11:09 | disposition home or self-care (01) ==
PROVIDERS: Emergency Provider Emergency Medicine; PCP Family Medicine
DX: N39.0 Urinary tract infection, site not specified (principal); R11.0 Nausea; M54.9 Dorsalgia, unspecified; E78.5 Hyperlipidemia, unspecified; E11.9 Type 2 diabetes mellitus without complications
CPT/HCPCS: 82962; 99281; 99283

== ENCOUNTER 2020-05-11 14:39 | Emergency (ER) | payer OTHER, SELFPAY ==
[2019-12-08 16:05] VITALS: BMI 16.6
[2020-05-11 14:48] VITALS: BP 138/114; PULSE 109; RESP 16; TEMP 36.9; O2SAT 96; BMI 18.2
--- NOTE | 2020-05-11 14:50 | ED_ITS ---
HPI - GI Bleed General Chief complaint: GI Bleed Stated complaint: GI bleed Time Seen by Provider: 05/11/20 14:40 Source: patient Mode of arrival: Ambulatory Limitations: no limitations History of Present Illness HPI Narrative: 54-year-old female daily smoker with complex medical history including diabetes, frequent UTI and pyelonephritis, fibromyalgia presents with her granddaughter and a chief complaint of generalized abdominal cramping and the passage of bloody stool. She states that she had been doing quite well and started having decreased bowel movements and sought treatment and evaluation. She reports to have had an x-ray that demonstrated she was constipated and she had been taking magnesium citrate at home for the past few days. She had bowel movements and felt improvement in her abdominal discomfort but then had the passage of some bright red blood with a bowel movement. She also had an episode of nose bleed which also has stopped. She denies fever or chills. She has no cough or trouble breathing. She is not dizzy, weak, or lightheaded. She's no longer bleeding. MD complaint: blood streaked stool Onset (ago): hour(s) Pain Consistency: intermittent Severity: moderate Relieving factors: bowel movement Associated symptoms: denies other symptoms Treatments Prior to Arrival: none Related Data Home Medications Medication Instructions Recorded Confirmed albuterol sulfate [Proventil HFA] 2 puff INH Q4HP PRN #0 01/08/13 04/19/20 hydroxyzine HCl 50 mg PO BID #0 01/08/13 12/08/19 duloxetine 60 mg PO DAILY #0 07/04/17 12/08/19 gabapentin [Neurontin] 900 mg PO BID #0 07/04/17 12/08/19 multivitamin [Multiple Vitamins] 1 tab PO DAILY #0 07/04/17 12/08/19 zolpidem [Ambien] 10 mg PO HS PRN #0 07/04/17 04/19/20 Probiotic 1 tab PO DAILY 09/26/17 12/08/19 lisinopril 10 mg PO DAILY 09/26/17 12/08/19 omeprazole 20 mg PO DAILY 09/26/17 12/08/19 ondansetron 1 tab TRANSLINGUAL Q6H PRN 09/26/17 12/08/19 lorazepam 0.5 mg PO DAILY 05/30/18 12/08/19 Humulin N NPH Insulin KwikPen 10 unit SUBCUT BID 05/17/19 12/08/19 methocarbamol 1,000 mg PO QID 05/17/19 12/08/19 quetiapine 300 mg PO BEDTIME 11/04/19 04/19/20 magnesium glycinate 800 mg PO QPM 12/08/19 12/08/19 melatonin 20 mg PO BEDTIME 12/08/19 12/08/19 Previous Rx's Medication Instructions Recorded ropinirole [Requip] 0.25 mg PO BEDTIME #30 tab 12/10/19 tramadol [Ultram] 50 mg PO TID PRN #20 tab 12/10/19 oxycodone-acetaminophen 1 tab PO Q6H PRN #14 tab 03/10/20 promethazine 25 mg PO TID PRN #10 tab 04/16/20 sucralfate 1 g PO TID #200 ml 04/16/20 promethazine 25 mg [place] Q4-6H PRN #12 ea 04/19/20 Allergies Allergy/AdvReac Type Severity Reaction Status Date / Time mupirocin Allergy Unknown Verified 05/11/20 14:50 naproxen Allergy Unknown Verified 05/11/20 14:50 Penicillins Allergy Unknown SINCE Verified 05/11/20 14:50 CHILDHOOD droperidol AdvReac Unknown Verified 05/11/20 14:50 fenofibrate [FENOFIBRATE] AdvReac Unknown Verified 05/11/20 14:50 ibuprofen AdvReac Unknown NAUSEA Verified 05/11/20 14:50 metformin [METFORMIN] AdvReac Unknown Verified 05/11/20 14:50 metoclopramide AdvReac Unknown BECAME Verified 05/11/20 14:50 JITTERY AND ANXIOUS nitrofurantoin AdvReac Unknown NAUSEA Verified 05/11/20 14:50 Review of Systems Constitutional Constitutional: Denies chills, Denies fatigue, Denies fever(s), Denies frequent falls, Denies lethargy and Denies weakness Eyes Eyes: Denies change in vision, Denies eye discharge, Denies irritation and Denies loss of vision ENT Ears, Nose, Mouth, and Throat: Denies change in voice, Denies dizziness, Reports epistaxis, Denies neck pain, Denies sore throat and Denies throat swelling Cardiovascular Cardiovascular: Denies chest pain, Denies irregular heart rhythm, Denies lightheadedness, Denies palpitations, Denies dyspnea, Denies dyspnea on exertion and Denies orthopnea Respiratory Respiratory: Denies cough, Denies dyspnea, Denies dyspnea on exertion and Denies wheezing Gastrointestinal Gastrointestinal: Reports abdominal pain, Reports hematochezia, Denies change in bowel habits, Denies diarrhea, Denies nausea and Denies vomiting Musculoskeletal Musculoskeletal: Denies neck pain and Denies numbness Integumentary/Breasts Skin/Breast: Denies pruritus, Denies erythema, Denies rash and Denies wounds Neurologic Neurologic: Denies behavioral changes, Denies confusion, Denies dizziness, Denies frequent falls, Denies loss of vision, Denies numbness and Denies weakness Psychiatric Psychiatric: Denies anxiety, Denies behavioral changes, Denies confusion, Denies depression, Denies homicidal ideation and Denies suicidal ideation Endocrine Endocrine: Denies fatigue, Denies flushing and Denies palpitations Hematologic/Lymphatic Hematologic/Lymphatic: Denies easy bruising Allergic/Immunologic Allergic/Immunologic: Denies urticaria, Denies throat swelling and Denies wheezing Patient History Medical History (Updated 05/11/20 @ 15:34 by Lyle Roman DO) Anxiety Closed fracture of left humerus Endometriosis Fibromyalgia Heart palpitations History of asthma History of chronic hypertension History of COPD History of depression History of gastrointestinal ulcer History of kidney stones History of migraine History of panic attacks History of type 2 diabetes mellitus Hyperlipidemia Interstitial cystitis UTI (urinary tract infection) Surgical History History of urostomy S/P appendectomy Status post hysterectomy Status post left rotator cuff repair Family History Mother Diabetes mellitus Lupus Social History household members: spouse Smoking Status: Current every day smoker alcohol intake: current Smoking Status: Current every day smoker tobacco type: cigarettes alcohol intake frequency: holidays/special occasions only Substance Use Type: former substance user and marijuana Exam Narrative Exam Narrative: GENERAL: [54] year old patient appears stated age. Well- nourished, well-developed patient, in mild distress. Anxious HEAD: Atraumatic. Normocephalic. EYES: Pupils equal round and reactive. Extraocular motions intact. No scleral icterus. No injection or drainage. ENT: Nose without bleeding, purulent drainage. Throat without erythema, tonsillar hypertrophy or exudate. Airway patent. NECK: Trachea midline. Non tender CARDIOVASCULAR: Regular rate and rhythm without murmurs, gallops, or rubs. RESPIRATORY: Clear to auscultation. Breath sounds equal bilaterally. No wheezes, rales, or rhonchi. GASTROINTESTINAL: Abdomen soft, tenderness throughout, mild distension, bowel sounds noted in all 4 quadrants RECTAL: no bleeding, no hemorrhoids, no fissure. Performed with nursing wrapping clerk at bedside and patient permission. EXTREMITIES: No edema or joint tenderness. BACK: Nontender without deformity or crepitance. No flank tenderness. NEURO: AOx3. SKIN: No rash or erythema of visible areas Initial Vital Signs Initial Vital Signs: Vital Signs Temperature 98.5 F 05/11/20 14:48 Pulse Rate 109 H 05/11/20 14:48 Respiratory Rate 16 05/11/20 14:48 Blood Pressure 138/114 H 05/11/20 14:48 Pulse Oximetry 96 05/11/20 14:48 Course Orders Ordered: ED Orders 05/11/20 14:48 Basic Metabolic Panel Stat Complete Blood Count AUTO DIFF Stat 05/11/20 14:49 XR acute abdomen series Stat Vital Signs Vital signs: Vital Signs - 8 hr 05/11/20 14:48 05/11/20 15:39 Temperature 98.5 F Pulse Rate 109 H 88 Respiratory Rate 16 15 Blood Pressure 138/114 H 168/82 H Pulse Oximetry 96 97 MDM - GI Bleed Lab Data Result diagrams: 05/11/20 14:48 05/11/20 14:48 Labs: Lab Results 05/11/20 05/11/20 Range/Units 14:48 14:48 WBC 11.5 H (4.5-11.0) X10^3/uL RBC 3.23 L (4.0-5.2) X10^6/uL Hgb 11.0 L (12.0-16.0) g/dL Hct 32.2 L (36-46) % MCV 99.8 (80-100) fL MCH 34.0 (26-34) PG MCHC 34.1 (30-36) % RDW 13.6 (11.6-14.8) % Plt Count 462 H (150-400) X10^3/uL Neut % (Auto) 71.9 (50-75) % Lymph % (Auto) 17.9 L (25-40) % [place] % (Auto) 8.7 (3-14) % Eos % (Auto) 1.0 L (2-4) % Baso % (Auto) 0.5 (0-2) % Neut # (Auto) 8200 H (6735-8178) /uL Lymph # (Auto) 2100 (5398-4549) /uL [place] # (Auto) 1000 H (0-900) /uL Eos # (Auto) 100 (0-450) /uL Baso # (Auto) 100 (0-100) /uL Sodium 133 L (137-145) mmol/L Potassium 3.8 (3.4-5.1) mmol/L Chloride 106 (98-107) mmol/L Carbon Dioxide 18 L (22-32) mmol/L BUN 13 (7-17) mg/dL Creatinine 0.55 (0.52-1.04) mg/dL Estimated GFR > 60.0 (>60) mL/min BUN/Creatinine Ratio 23.6 H (6-22) Glucose 331 H (70-100) mg/dL Calcium 9.5 (8.4-10.2) mg/dL Imaging Data Abdominal x-ray: Radiologist's Impression: [address] [id number] ReportSigned Patient: Melvi Gibbs NMR#: [id number]: 1965Acct:[id number]/Sex: 54 / FDate of Service: 05/11/20Loc: EDAccession Number: [id number] Procedure: XR acute abdomen series Ordering Provider: Lyle Roman D.O. PROCEDURE: XR ACUTE ABDOMEN SERIES INDICATIONS: Abdominal pain, constipation TECHNIQUE: One view chest and two views of the abdomen were acquired. COMPARISON: [facility], CT, CT ABDOMEN PELVIS WITH CONTRAST, 05/09/2020, 13:11. [facility], CR, XR CHEST 1V, 06/26/2019, 13:55. [facility], CR, XR CHEST 1V, 06/26/2019, 12:37. [facility], CR, ABDOMEN ACUTE SERIES, 03/09/2014, 15:03. FINDINGS: Surgical changes and devices: There is a right lower quadrant ostomy. Cholecystectomy clips are seen. Numerous pelvic clips can be seen. Chest: Lungs are clear. Heart size is normal. No pleural effusions. No pneumoperitoneum. Abdomen: Bowel gas pattern is normal. There is a moderate amount of stool seen within the colon. No suspicious calcifications. Visualized solid organ contours rafiq ear normal. Bones: No suspicious bony lesions. IMPRESSION: There is a moderate amount of stool seen within the colon, which is consistent with the given history of constipation. Postoperative changes are seen, including a right lower quadrant ostomy. Dictated by: Damion Bonner M.D. on 05/11/2020 at 14:02 Approved by: Damion Bonner M.D. on 05/11/2020 at 14:04 [facility] Narrative Medical decision making narrative: Patient with recent constipation, treated by Mag citrate followed by some increased cramping and bright red blood per rectum. She has no systemic findings such as dizziness, weakness or lightheadedness. Her vitals are stable, her H&H would suggest no anemia. Abdomen is soft, rectal demonstrates no ongoing significant bleeding. Large bleed very unlikely. Exam, labs and story are very reassuring. Extensive discussion about bowel reginmen moving forward. Return precautions given, questions answered to her apparent satisfaction. Discharge Plan Departure Patient Disposition: Home Clinical Impression: Acute GI bleeding Abdominal pain Qualifiers: Abdominal location: generalized Qualified Code(s): R10.84 - Generalized abdominal pain Constipation Qualifiers: Constipation type: unspecified constipation type Qualified Code(s): K59.00 - Constipation, unspecified Instructions: DI for Abdominal Pain-Adult, DI for Constipation, Gastrointestinal Bleeding Activity Restrictions/Additional Instructions: *You have been diagnosed with [ abdominal pain due to constipation ] *What to do: *Take over the counter medications as directed: 1. Metamucil - bulk forming laxative adds fiber 2. Colace - softens your stool 3. Dulcolax Suppository - stimulates your bowels from the bottom (take this first, wait a few hours before taking the others) *Follow up with your primary care provider in 2-3 days, call for appointment *Return to ER if you should have any new, worsening or concerning symptoms *Drink plenty of water and eat foods high in fiber *Try to be as active as possible, consider walking your dog daily Prescriptions: No Action hydroxyzine HCl 25 MG tablet 50 mg PO BID Qty: 0 RF: 0 albuterol sulfate [Proventil HFA] 90 MCG/PUFF HFA aerosol inhaler 2 puff INH Q4HP PRN (Reason: Shortness Of Breath) Qty: 0 RF: 0 duloxetine 60 MG capsule,delayed release(DR/EC) 60 mg PO DAILY Qty: 0 RF: 0 gabapentin [Neurontin] 300 MG capsule 900 mg PO BID Qty: 0 RF: 0 multivitamin [Multiple Vitamins] 1 EACH tablet 1 tab PO DAILY Qty: 0 RF: 0 zolpidem [Ambien] 10 MG tablet 10 mg PO HS PRN (Reason: Insomnia) Qty: 0 RF: 0 lorazepam 0.5 mg tablet 0.5 mg PO DAILY RF: 0 methocarbamol 500 mg tablet 1,000 mg PO QID RF: 0 Humulin N NPH Insulin KwikPen 100 unit/mL (3 mL) insulin pen 10 unit SUBCUT BID RF: 0 quetiapine 100 mg Tablet 300 mg PO BEDTIME RF: 0 magnesium glycinate 100 mg Tablet 800 mg PO QPM RF: 0 melatonin 10 mg Tablet 20 mg PO BEDTIME RF: 0 tramadol [Ultram] 50 mg tablet 50 mg PO TID PRN (Reason: pain) Qty: 20 RF: 0 ropinirole [Requip] 0.25 mg tablet 0.25 mg PO BEDTIME Qty: 30 RF: 0 promethazine 25 mg suppository 25 mg [place] Q4-6H PRN (Reason: nausea and vomiting) Qty: 12 RF: 0 lisinopril 10 mg tablet 10 mg PO DAILY RF: 0 omeprazole 20 mg capsule,delayed release(DR/EC) 20 mg PO DAILY RF: 0 ondansetron 4 mg tablet,disintegrating 1 tab Translingual Q6H PRN (Reason: Nausea) RF: 0 Probiotic 1 tab PO DAILY RF: 0 oxycodone-acetaminophen 5-325 mg tablet 1 tab PO Q6H PRN (Reason: pain) Qty: 14 RF: 0 promethazine 25 mg tablet 25 mg PO TID PRN (Reason: nausea and vomiting) Qty: 10 RF: 0 sucralfate 100 mg/mL suspension 1 g PO TID Qty: 200 RF: 0 Referrals: Scheidt,Judye, DO [Primary Care Provider] -
--- NOTE | 2020-05-11 15:14 | PC.NURSE ---
brisk cap refil, pink conjuctiva, denies dizziness. concerned for bowel obstruction. reports one large bloody bowel movment.
[2020-05-11 15:15] LABS: Add Manual Diff / Slide Review NO; Basophils Absolute Auto 100 /uL (0-100); Basophils Percent Auto 0.5 % (0-2); Eosinophils Absolute Auto 100 /uL (0-450); Hematocrit 32.2 % (36-46); Lymphocytes Absolute Auto 2100 /uL (1100-4500); Lymphocytes Percent Auto 17.9 % (25-40); Mean Corpuscular HGB Conc 34.1 % (30-36); Mean Corpuscular Volume 99.8 fL (80-100); Monocytes Absolute Auto 1000 /uL (0-900); Monocytes Percent Auto 8.7 % (3-14); Neutrophils Absolute Auto 8200 /uL (1500-7000); Neutrophils Percent Auto 71.9 % (50-75); Platelet Count 462 X10^3/uL (150-400); Red Blood Cell Count 3.23 X10^6/uL (4.0-5.2); Red Cell Distribution Width 13.6 % (11.6-14.8); White Blood Cell Count 11.5 X10^3/uL (4.5-11.0)
[2020-05-11 15:25] LABS: BUN Creatinine Ratio 23.6 (6-22); Blood Urea Nitrogen 13 mg/dL (7-17); Calcium 9.5 mg/dL (8.4-10.2); Carbon Dioxide 18 mmol/L (22-32); Chloride 106 mmol/L (98-107); Estimated Glomerular Filt Rate > 60.0 mL/min (>60); Glucose 331 mg/dL (70-100); HEMOLYSIS < 15 (0-50); Potassium 3.8 mmol/L (3.4-5.1); Sodium 133 mmol/L (137-145)
[2020-05-11 15:39] VITALS: BP 168/82; PULSE 88; RESP 15; O2SAT 97
== END 2020-05-11 15:40 | disposition home or self-care (01) ==
PROVIDERS: Emergency Provider Emergency Medicine; PCP Family Medicine
DX: K92.2 Gastrointestinal hemorrhage, unspecified (principal); R10.84 Generalized abdominal pain; K59.00 Constipation, unspecified; E11.9 Type 2 diabetes mellitus without complications; E78.5 Hyperlipidemia, unspecified
CPT/HCPCS: 36415; 74022; 80048; 85025; 99281; 99284

== ENCOUNTER 2020-06-17 11:17 | Emergency (ER) | payer OTHER, SELFPAY ==
[2019-12-08 16:05] VITALS: BMI 16.6
[2020-06-17] VITALS (8 sets, daily range): BP systolic 161–210; BP diastolic 87–101; PULSE 87–100; RESP 20; TEMP 36.8; O2SAT 97–99
--- NOTE | 2020-06-17 11:53 | ED_ITS ---
HPI - Recheck/Abnormal Lab/Rx General Chief Complaint: Recheck/Abnormal Lab/Rx Stated Complaint: possible kidney infection, sx of med withdrawal Time Seen by Provider: 06/17/20 11:47 Source: patient and family Mode of arrival: Wheelchair Limitations: no limitations History of Present Illness HPI narrative: Patient is a 54-year-old female with multiple medical problems well known to this facility and myself presenting today of right hip complaints. She is requesting gabapentin and Seroquel she has refills on her prescriptions but they cannot be filled for another 2 days. She says she would wake up and take extra trying to get back to sleep and now she has run out early. She also has noticed pus from her cystostomy. There is no fever chills or blood. But there is quite a large amount of white gross pus. MD complaint: medication refill request Related Data Home Medications Medication Instructions Recorded Confirmed albuterol sulfate [Proventil HFA] 2 puff INH Q4HP PRN #0 01/08/13 04/19/20 hydroxyzine HCl 50 mg PO BID #0 01/08/13 12/08/19 duloxetine 60 mg PO DAILY #0 07/04/17 12/08/19 gabapentin [Neurontin] 900 mg PO BID #0 07/04/17 12/08/19 multivitamin [Multiple Vitamins] 1 tab PO DAILY #0 07/04/17 12/08/19 zolpidem [Ambien] 10 mg PO HS PRN #0 07/04/17 04/19/20 Probiotic 1 tab PO DAILY 09/26/17 12/08/19 lisinopril 10 mg PO DAILY 09/26/17 12/08/19 omeprazole 20 mg PO DAILY 09/26/17 12/08/19 ondansetron 1 tab TRANSLINGUAL Q6H PRN 09/26/17 12/08/19 lorazepam 0.5 mg PO DAILY 05/30/18 12/08/19 Humulin N NPH Insulin KwikPen 10 unit SUBCUT BID 05/17/19 12/08/19 methocarbamol 1,000 mg PO QID 05/17/19 12/08/19 quetiapine 300 mg PO BEDTIME 11/04/19 04/19/20 magnesium glycinate 800 mg PO QPM 12/08/19 12/08/19 melatonin 20 mg PO BEDTIME 12/08/19 12/08/19 Previous Rx's Medication Instructions Recorded ropinirole [Requip] 0.25 mg PO BEDTIME #30 tab 12/10/19 tramadol [Ultram] 50 mg PO TID PRN #20 tab 12/10/19 oxycodone-acetaminophen 1 tab PO Q6H PRN #14 tab 03/10/20 promethazine 25 mg PO TID PRN #10 tab 04/16/20 sucralfate 1 g PO TID #200 ml 04/16/20 promethazine 25 mg MA Q4-6H PRN #12 ea 04/19/20 Allergies Allergy/AdvReac Type Severity Reaction Status Date / Time mupirocin Allergy Unknown Verified 06/17/20 11:28 naproxen Allergy Unknown Verified 06/17/20 11:28 Penicillins Allergy Unknown SINCE Verified 06/17/20 11:28 CHILDHOOD droperidol AdvReac Unknown Verified 06/17/20 11:28 fenofibrate [FENOFIBRATE] AdvReac Unknown Verified 06/17/20 11:28 ibuprofen AdvReac Unknown NAUSEA Verified 06/17/20 11:28 metformin [METFORMIN] AdvReac Unknown Verified 06/17/20 11:28 metoclopramide AdvReac Unknown BECAME Verified 06/17/20 11:28 JITTERY AND ANXIOUS nitrofurantoin AdvReac Unknown NAUSEA Verified 06/17/20 11:28 Review of Systems Review of Systems Narrative: GENERAL: Denies chills, fatigue, malaise, fever, sweats, travel HEENT: Denies sinus pain, ear pain, sore throat, difficulty swallowing, neck pain RESPIRATORY: Denies dyspnea, cough, wheezing, hemoptysis, sputum. CARDIOVASCULAR: Denies chest pain, palpitations, orthopnea, edema GASTROINTESTINAL: Denies nausea, vomiting, abdominal pain, diarrhea, constipation, melena. : See HPI MUSCULOSKELETAL: Denies weakness, joint pain, or bony pain SKIN: No rash, no erythema, no pruritus NEUROLOGIC: Denies weakness, dizziness, headache, numbness, change in speech, confusion PSYCHIATRIC: No concerning psychosocial issues. 12 point review of systems is negative except for those stated above and HPI Patient History Medical History (Updated 06/17/20 @ 15:18 by Vivi Montoya DO) Anxiety Closed fracture of left humerus Endometriosis Fibromyalgia Heart palpitations History of asthma History of chronic hypertension History of COPD History of depression History of gastrointestinal ulcer History of kidney stones History of migraine History of panic attacks History of type 2 diabetes mellitus Hyperlipidemia Interstitial cystitis UTI (urinary tract infection) Surgical History History of urostomy S/P appendectomy Status post hysterectomy Status post left rotator cuff repair Family History Mother Diabetes mellitus Lupus Social History household members: spouse Smoking Status: Current every day smoker alcohol intake: current Smoking Status: Current every day smoker tobacco type: cigarettes alcohol intake frequency: holidays/special occasions only Substance Use Type: former substance user and marijuana Exam Initial Vital Signs Initial Vital Signs: Vital Signs Temperature 98.2 F 06/17/20 11:23 Pulse Rate 100 H 06/17/20 11:23 Respiratory Rate 20 06/17/20 11:23 Blood Pressure 210/101 H 06/17/20 11:23 Pulse Oximetry 98 06/17/20 11:23 GENERAL: Thin chronically ill female slightly anxious and in no acute distress. HEENT: Head atraumatic,EOMI, pupils reactive, face symmetric, moist mucous membranes CARDIOVASCULAR: Regular rate and rhythm without murmurs, rubs or gallops. RESPIRATORY: Breath sounds equal bilaterally, no wheezes rales or rhonchi. ABDOMEN: Soft, nontender. Normoactive bowel sounds all 4 quadrants. No guarding or rebound. : No CVA tenderness, cystostomy noted ostomy itself is pink but there is gross white pus around urine is clean EXTREMITIES: Normal range of motion, no clubbing or edema. Neurovascularly intact NEUROLOGICAL: Alert and oriented x4.Normal gait and speech. SKIN: Warm, dry, no laceration, no petechiae, no rashes or lesions. Course Orders Ordered: ED Orders 06/17/20 12:54 Blood Culture Stat Complete Blood Count AUTO DIFF Stat 06/17/20 13:05 Wound Culture and Gram Stain Stat 06/17/20 13:32 Comprehensive Metabolic Panel Stat Lactate (Lactic Acid) Stat Procalcitonin Stat Discontinued Medications Acetaminophen (Acetaminophen 325 Mg Tablet) 975 mg PO NOW ONE Stop: 06/17/20 12:44 Last Admin: 06/17/20 13:12 Dose: 975 mg Documented by: ANDRES Gabapentin (Gabapentin 300 Mg Capsule) 300 mg PO NOW ONE Stop: 06/17/20 12:33 Last Admin: 06/17/20 12:40 Dose: 300 mg Documented by: MUSTAPHA Quetiapine Fumarate (Quetiapine 100 Mg Tablet) 300 mg PO NOW ONE Stop: 06/17/20 15:31 Last Admin: 06/17/20 15:31 Dose: 300 mg Documented by: MUSTAPHA Vital Signs Vital signs: Vital Signs - 8 hr 06/17/20 11:23 06/17/20 12:35 06/17/20 12:42 Temperature 98.2 F Pulse Rate 100 H 87 88 Respiratory Rate 20 Blood Pressure 210/101 H 169/87 H Pulse Oximetry 98 97 99 06/17/20 13:00 06/17/20 13:30 06/17/20 14:00 Temperature Pulse Rate 88 87 90 Respiratory Rate Blood Pressure 171/90 H 169/93 H Pulse Oximetry 99 97 98 06/17/20 14:30 06/17/20 15:00 Temperature Pulse Rate 90 93 H Respiratory Rate Blood Pressure 161/91 H Pulse Oximetry 98 98 MDM - Recheck/Abnormal Lab/Rx Lab Data Attestation: I reviewed the patient's lab results. Result diagrams: 06/17/20 12:54 06/17/20 13:32 Labs: Lab Results 06/17/20 06/17/20 06/17/20 Range/Units 12:54 13:32 13:32 WBC 8.7 (4.5-11.0) X10^3/uL RBC 4.19 (4.0-5.2) X10^6/uL Hgb 14.1 (12.0-16.0) g/dL Hct 41.6 (36-46) % MCV 99.3 (80-100) fL MCH 33.8 (26-34) PG MCHC 34.0 (30-36) % RDW 14.3 (11.6-14.8) % Plt Count 304 (150-400) X10^3/uL Neut % (Auto) 67.3 (50-75) % Lymph % (Auto) 23.7 L (25-40) % [place] % (Auto) 8.0 (3-14) % Eos % (Auto) 0.4 L (2-4) % Baso % (Auto) 0.6 (0-2) % Neut # (Auto) 5800 (4131-7012) /uL Lymph # (Auto) 2100 (2923-7514) /uL [place] # (Auto) 700 (0-900) /uL Eos # (Auto) 0 (0-450) /uL Baso # (Auto) 0 (0-100) /uL Sodium 134 L (137-145) mmol/L Potassium 4.9 (3.4-5.1) mmol/L Chloride 105 (98-107) mmol/L Carbon Dioxide 21 L (22-32) mmol/L BUN 15 (7-17) mg/dL Creatinine 0.43 L (0.52-1.04) mg/dL Estimated GFR > 60.0 (>60) mL/min BUN/Creatinine Ratio 34.9 H (6-22) Glucose 205 H (70-100) mg/dL Lactate 2.2 H (0.7-2.1) mmol/L Calcium 9.5 (8.4-10.2) mg/dL Total Bilirubin 0.4 (0.2-1.3) mg/dL AST 31 (14-36) IU/L ALT 23 (<35) IU/L Alkaline Phosphatase 161 H (38-126) U/L Total Protein 7.4 (6.3-8.2) g/dL Albumin 4.0 (3.5-5.0) g/dL Globulin 3.4 (1.7-4.1) g/dL Albumin/Globulin Ratio 1.2 (1.0-2.8) Procalcitonin 0.07 (<0.5) ng/mL Urine Dip Bedside Urine Glucose 100 mg/dl Bedside Urine Bilirubin - Negative Bedside Urine Ketone - Negative Urine Specific [place] 1.020 Bedside Urine Occult Blood - Negative Bedside Urine pH 7 Bedside Urine Protein - Negative Bedside Urine Urobilinogen - Negative Bedside Urine Nitrite - Negative Bedside Urine Leukocytes - Negative Esterase MDM Narrative Medical decision making narrative: Patient is overall not septic. She does have some gross pus at her cystostomy site. It has been cultured and pending. No leukocytosis mild elevation in lactate that this has been elevated to 2.2 in the past. Not hypotensive or tachycardic afebrile, patient overall does not seem to have acute infection or be septic at this time will wait for culture to return before starting her on antibiotics history of multiple drug resistant infection. Gabapentin seems to have helped the tremor. She is given 1 dose of Seroquel for the night she understands that she needs a softer PCP in regards to dosing and medications so that she does not run out Discharge Plan Departure Patient Disposition: Home Clinical Impression: Medication refill Instructions: Gabapentin Activity Restrictions/Additional Instructions: *You have been diagnosed with medication refill *What to do: Culture is pending. We will call you with antibiotics if they are needed. Your urine does not show any infection at this time. White been clean area. Do will need to talk to her PCP in regards to your medication *Continue to take medications as directed Seroquel 300 mg at nighttime *Follow up with your primary care provider in 2-3 days *Return to ER if you should have fever chills pain confusion or any new, worsening or concerning symptoms Prescriptions: No Action hydroxyzine HCl 25 MG tablet 50 mg PO BID Qty: 0 RF: 0 albuterol sulfate [Proventil HFA] 90 MCG/PUFF HFA aerosol inhaler 2 puff INH Q4HP PRN (Reason: Shortness Of Breath) Qty: 0 RF: 0 duloxetine 60 MG capsule,delayed release(DR/EC) 60 mg PO DAILY Qty: 0 RF: 0 gabapentin [Neurontin] 300 MG capsule 900 mg PO BID Qty: 0 RF: 0 multivitamin [Multiple Vitamins] 1 EACH tablet 1 tab PO DAILY Qty: 0 RF: 0 zolpidem [Ambien] 10 MG tablet 10 mg PO HS PRN (Reason: Insomnia) Qty: 0 RF: 0 lorazepam 0.5 mg tablet 0.5 mg PO DAILY RF: 0 methocarbamol 500 mg tablet 1,000 mg PO QID RF: 0 Humulin N NPH Insulin KwikPen 100 unit/mL (3 mL) insulin pen 10 unit SUBCUT BID RF: 0 quetiapine 100 mg Tablet 300 mg PO BEDTIME RF: 0 magnesium glycinate 100 mg Tablet 800 mg PO QPM RF: 0 melatonin 10 mg Tablet 20 mg PO BEDTIME RF: 0 tramadol [Ultram] 50 mg tablet 50 mg PO TID PRN (Reason: pain) Qty: 20 RF: 0 ropinirole [Requip] 0.25 mg tablet 0.25 mg PO BEDTIME Qty: 30 RF: 0 promethazine 25 mg suppository 25 mg MA Q4-6H PRN (Reason: nausea and vomiting) Qty: 12 RF: 0 lisinopril 10 mg tablet 10 mg PO DAILY RF: 0 omeprazole 20 mg capsule,delayed release(DR/EC) 20 mg PO DAILY RF: 0 ondansetron 4 mg tablet,disintegrating 1 tab Translingual Q6H PRN (Reason: Nausea) RF: 0 Probiotic 1 tab PO DAILY RF: 0 oxycodone-acetaminophen 5-325 mg tablet 1 tab PO Q6H PRN (Reason: pain) Qty: 14 RF: 0 promethazine 25 mg tablet 25 mg PO TID PRN (Reason: nausea and vomiting) Qty: 10 RF: 0 sucralfate 100 mg/mL suspension 1 g PO TID Qty: 200 RF: 0 Referrals: Fadi Ko DO [Primary Care Provider] -
[2020-06-17] MEDS: GABAPENTIN 300 MG CAPSULE PO (12:40)
[2020-06-17 13:03] LABS: Add Manual Diff / Slide Review NO; Basophils Absolute Auto 0 /uL (0-100); Basophils Percent Auto 0.6 % (0-2); Eosinophils Absolute Auto 0 /uL (0-450); Eosinophils Percent Auto 0.4 % (2-4); Hematocrit 41.6 % (36-46); Hemoglobin 14.1 g/dL (12.0-16.0); Lymphocytes Absolute Auto 2100 /uL (1100-4500); Lymphocytes Percent Auto 23.7 % (25-40); Mean Corpuscular Hemoglobin 33.8 PG (26-34); Mean Corpuscular Volume 99.3 fL (80-100); Monocytes Absolute Auto 700 /uL (0-900); Neutrophils Absolute Auto 5800 /uL (1500-7000); Neutrophils Percent Auto 67.3 % (50-75); Platelet Count 304 X10^3/uL (150-400); Red Blood Cell Count 4.19 X10^6/uL (4.0-5.2); Red Cell Distribution Width 14.3 % (11.6-14.8); White Blood Cell Count 8.7 X10^3/uL (4.5-11.0)
[2020-06-17] MEDS: ACETAMINOPHEN 325 MG TABLET 975 MG PO (13:12)
[2020-06-17 14:35] LABS: Lactate (Lactic Acid) 2.2 mmol/L (0.7-2.1)
[2020-06-17 14:36] LABS: Alanine Aminotransferase 23 IU/L (<35); Albumin Globulin Ratio 1.2 (1.0-2.8); Alkaline Phosphatase 161 U/L (38-126); Aspartate Aminotransferase 31 IU/L (14-36); BUN Creatinine Ratio 34.9 (6-22); Bilirubin Total 0.4 mg/dL (0.2-1.3); Blood Urea Nitrogen 15 mg/dL (7-17); Calcium 9.5 mg/dL (8.4-10.2); Carbon Dioxide 21 mmol/L (22-32); Chloride 105 mmol/L (98-107); Estimated Glomerular Filt Rate > 60.0 mL/min (>60); Globulin 3.4 g/dL (1.7-4.1); Glucose 205 mg/dL (70-100); Potassium 4.9 mmol/L (3.4-5.1); Sodium 134 mmol/L (137-145); Total Protein 7.4 g/dL (6.3-8.2)
[2020-06-17 14:40] LABS: HEMOLYSIS 58 (0-50)
[2020-06-17 14:52] LABS: Procalcitonin 0.07 ng/mL (<0.5)
[2020-06-17] MEDS: QUETIAPINE 100 MG TABLET 300 MG PO (15:31)
[2020-06-17 15:38] LABS: Reflexed Lactate in 2 Hours Y
== END 2020-06-17 15:39 | disposition home or self-care (01) ==
PROVIDERS: Emergency Provider Emergency Medicine; PCP Family Medicine
DX: M25.551 Pain in right hip (principal); Z76.0 Encounter for issue of repeat prescription
CPT/HCPCS: 36415; 80053; 81003; 83605; 84145; 85025; 87040; 87070; 87075; 87077; 87186; 87205; 99283; 99284

== ENCOUNTER 2020-08-31 10:36 | Inpatient (IN) | payer OTHER, SELFPAY ==
[2019-12-08 16:05] VITALS: BMI 16.6
[2020-08-31] VITALS (14 sets, daily range): BP systolic 156–195; BP diastolic 80–127; PULSE 93–107; RESP 20; TEMP 36.9–37.4; O2SAT 96–99; BMI 18.0; BMI 18.4
--- NOTE | 2020-08-31 11:22 | DI.CT.S_ITS ---
PROCEDURE: CT ABDOMEN PELVIS W CON INDICATIONS: worsening ab pain TECHNIQUE: After the administration of intravenous contrast, 5 mm thick sections acquired from the diaphragm to the symphysis. 5 mm coronal and sagittal reformats were acquired. For radiation dose reduction, the following was used: automated exposure control, adjustment of mA and/or kV according to patient size. COMPARISON: [facility], CT, CT ABDOMEN PELVIS WITH CONTRAST, 07/04/2020, 13:22. FINDINGS: Image quality: Excellent. ABDOMEN: Lung bases: Lung bases are clear. Heart size is normal. Solid organs: Liver is enlarged in size at 20.6 cm craniocaudad and enhancement. Gallbladder has been previously resected. Biliary system is slightly dilated, previously the case, both within the intrahepatic and extrahepatic bile ducts. Pancreas enhances normally. Spleen is normal in size and enhancement. No adrenal nodules. Kidneys demonstrate normal size and enhancement, without stone induced hydronephrosis. There is mild prominence of the central renal collecting system symmetric bilaterally, and the ureters also are mildly prominent, and this is secondary to a urinary diversion procedure within the pelvis likely an ileal loop conduit through an ostomy at the right lower quadrant. No recurrent mass lesion in the bladder resection bed, or adenopathy is found. Peritoneum and bowel: Bowel loops demonstrate normal wall thickness and caliber. No free fluid or air. Nodes and vessels: No retroperitoneal or mesenteric adenopathy by size criteria. Aorta and inferior vena cava are normal in size. Miscellaneous: No ventral hernias. PELVIS: Genitourinary: Bladder wall thickness is normal. Miscellaneous: No inguinal hernias or adenopathy. Bones: No suspicious bony lesions. No vertebral body compression fractures. IMPRESSION: Source of worsening pain within the abdomen/pelvis is not seen. The patient has undergone prior bladder resection and what appears to be an ileal loop conduit through right lower quadrant ostomy site to the surface. Mild associated hydronephrosis and hydroureter is present, equivalent to that previously seen on the comparison CT from June of this year. No sign of bowel inflammation. Prior cholecystectomy with secondary mild prominence of the intrahepatic and extrahepatic bile ducts, stable over time. Hepatomegaly, with the liver free of focal mass lesion. A small portion of the lungs is seen bilaterally, showing patchy alveolar infiltration. This appears slightly more prominent than on the comparison study from June. Please correlate clinically for whether atypical pulmonary infection could be present in this patient. Dictated by: Akbar Ortiz M.D. on 08/31/2020 at 11:34 Approved by: Akbar Ortiz M.D. on 08/31/2020 at 11:45
--- NOTE | 2020-08-31 11:26 | ED_ITS ---
HPI - Female Genitourinary General Chief complaint: Urogenital-Female Stated complaint: kidney infection Time Seen by Provider: 08/31/20 11:17 Source: patient and family Mode of arrival: Family Vehicle Limitations: no limitations History of Present Illness HPI Narrative: Patient is a 55-year-old female with history of frequent UTI chronic interstitial cystitis and kidney infections with cystostomy with urostomy presenting today with increased pain. She apparently was admitted at [facility] for an infection is 3 days ago she left against medical advice 2 days ago. Her is able to bring up records stating that she got a dose of Rocephin and vancomycin in the emergency department. She said she had a panic attack and needed to leave the hospital she was not given antibiotics upon discharge. She is having increasing abdominal pain in nausea. She is currently afebrile normotensive and not tachycardic. Asking for pain medication usually dilaudid works. MD Complaint: UTI Onset (ago): day(s) Severity: similar to previous episodes Related Data Home Medications Medication Instructions Recorded Confirmed albuterol sulfate [Proventil HFA] 2 puff INH Q4HP PRN #0 01/08/13 08/31/20 hydroxyzine HCl 50 mg PO BID #0 01/08/13 08/31/20 duloxetine 60 mg PO BEDTIME #0 07/04/17 08/31/20 gabapentin [Neurontin] 900 mg PO BID #0 07/04/17 08/31/20 multivitamin [Multiple Vitamins] 1 tab PO DAILY #0 07/04/17 08/31/20 zolpidem [Ambien] 10 mg PO HS PRN #0 07/04/17 08/31/20 Probiotic 1 tab PO DAILY 09/26/17 08/31/20 omeprazole 40 mg PO BID 09/26/17 08/31/20 ondansetron 1 tab TRANSLINGUAL Q6H PRN 09/26/17 08/31/20 lorazepam 0.5 mg PO BEDTIME 05/30/18 08/31/20 Humulin N NPH Insulin KwikPen 15 unit SUBCUT BID 05/17/19 08/31/20 methocarbamol 1,000 mg PO QID 05/17/19 08/31/20 quetiapine 300 mg PO BEDTIME 11/04/19 08/31/20 magnesium glycinate 800 mg PO BEDTIME 12/08/19 08/31/20 melatonin 20 mg PO BEDTIME 12/08/19 08/31/20 cholecalciferol (vitamin D3) 25 mcg PO DAILY 08/31/20 08/31/20 [Vitamin D3] docusate sodium 100 mg PO DAILY 08/31/20 08/31/20 prazosin 1 mg PO BEDTIME 08/31/20 08/31/20 ropinirole [Requip] 0.5 mg PO BEDTIME 08/31/20 08/31/20 sumatriptan succinate 25 mg PO DIRECTED PRN 08/31/20 08/31/20 vitamin E 400 unit PO DAILY 08/31/20 08/31/20 Previous Rx's Medication Instructions Recorded promethazine 25 mg PO TID PRN #10 tab 04/16/20 promethazine 25 mg [place] Q4-6H PRN #12 ea 04/19/20 Allergies Allergy/AdvReac Type Severity Reaction Status Date / Time mupirocin Allergy Unknown Verified 06/17/20 11:28 naproxen Allergy Unknown Verified 06/17/20 11:28 Penicillins Allergy Unknown SINCE Verified 06/17/20 11:28 CHILDHOOD droperidol AdvReac Unknown Verified 06/17/20 11:28 fenofibrate [FENOFIBRATE] AdvReac Unknown Verified 06/17/20 11:28 ibuprofen AdvReac Unknown NAUSEA Verified 06/17/20 11:28 metformin [METFORMIN] AdvReac Unknown Verified 06/17/20 11:28 metoclopramide AdvReac Unknown BECAME Verified 06/17/20 11:28 JITTERY AND ANXIOUS nitrofurantoin AdvReac Unknown NAUSEA Verified 06/17/20 11:28 Review of Systems Review of Systems ROS Unobtainable: All systems reviewed & are unremarkable except as noted in HPI and below Constitutional Constitutional: Reports as per HPI, Reports fatigue and Denies frequent falls ENT Ears, Nose, Mouth, and Throat: Denies change in voice, Denies dizziness, Denies neck pain and Denies sore throat Cardiovascular Cardiovascular: Denies dyspnea and Denies dyspnea on exertion Respiratory Respiratory: Denies cough, Denies dyspnea, Denies dyspnea on exertion and Denies wheezing Gastrointestinal Gastrointestinal: Reports as per HPI, Reports abdominal pain and Reports nausea Genitourinary Genitourinary: Reports as per HPI Genitourinary: Reports as per HPI Musculoskeletal Musculoskeletal: Denies back pain, Denies neck pain and Denies numbness Integumentary/Breasts Skin/Breast: Denies pruritus, Denies erythema, Denies rash and Denies wounds Neurologic Neurologic: Denies behavioral changes, Denies confusion, Denies dizziness, Denies frequent falls and Denies numbness Psychiatric Psychiatric: Denies behavioral changes and Denies confusion Endocrine Endocrine: Reports fatigue Allergic/Immunologic Allergic/Immunologic: Denies wheezing Patient History Medical History (Updated 08/31/20 @ 13:23 by Vivi Montoya DO) Anxiety Closed fracture of left humerus Endometriosis Fibromyalgia Heart palpitations History of asthma History of chronic hypertension History of COPD History of depression History of gastrointestinal ulcer History of kidney stones History of migraine History of panic attacks History of type 2 diabetes mellitus Hyperlipidemia Interstitial cystitis UTI (urinary tract infection) Surgical History History of urostomy S/P appendectomy Status post hysterectomy Status post left rotator cuff repair Family History Mother Diabetes mellitus Lupus tobacco type: cigarettes alcohol intake frequency: holidays/special occasions only Substance Use Type: former substance user and marijuana Exam Initial Vital Signs Initial Vital Signs: Vital Signs Temperature 98.5 F 08/31/20 10:50 Pulse Rate 107 H 08/31/20 10:50 Respiratory Rate 20 08/31/20 10:50 Blood Pressure 171/80 H 08/31/20 10:50 Pulse Oximetry 97 08/31/20 10:50 GENERAL: Alert 55-year-old female chronic appears chronically ill tearful HEENT: Head atraumatic,EOMI, pupils reactive, face symmetric, [moist] mucous membranes CARDIOVASCULAR: Regular rate and rhythm without murmurs, rubs or gallops. RESPIRATORY: Breath sounds equal bilaterally, no wheezes rales or rhonchi. ABDOMEN: Soft, nontender. Normoactive bowel sounds all 4 quadrants. No guarding or rebound. Urostomy site noted on the right, clear urine : Right CVA tenderness EXTREMITIES: Normal range of motion, no clubbing or edema. Neurovascularly intact NEUROLOGICAL: Alert and oriented x4.Normal gait and speech. Cranial nerves II through XII grossly intact. SKIN: Warm, dry, no laceration, no petechiae, no rashes or lesions. Course Orders Ordered: ED Orders 08/31/20 11:15 Complete Blood Count AUTO DIFF Stat Comprehensive Metabolic Panel Stat Lactate (Lactic Acid) Stat Lipase Stat 08/31/20 11:22 CT abdomen pelvis w con Stat 08/31/20 11:44 Urinalysis and Microscopic Stat Urine Culture Stat 08/31/20 11:55 Blood Culture Stat 08/31/20 13:16 COVID19 - ADMIT ([facility] swab/PCR) Stat Acetaminophen (Acetaminophen 325 Mg Tablet) 650 mg PO Q6HR PRN PRN Reason: Fever/Mild Pain (1-3) Albuterol/Ipratropium (Albuterol/Ipratropium 3 Ml Ampul) 3 ml INH RTQ4HR PRN PRN Reason: Shortness Of Breath Docusate Sodium (Docusate 100 Mg Capsule) 100 mg PO BID ISSA Hydromorphone HCl (Hydromorphone 2 Mg Tablet) 2 mg PO Q6HR PRN PRN Reason: Pain, Severe (7-10) Last Admin: 08/31/20 16:10 Dose: 2 mg Documented by: LAYA Sodium Chloride (Normal Saline 0.9%) 1,000 mls @ 100 mls/hr IV CONT [facility] Last Admin: 08/31/20 15:54 Dose: 100 mls/hr Documented by: YARITZA Levofloxacin (Levaquin) 750 mg in 150 mls @ 100 mls/hr IV Q24H ISSA Last Admin: 08/31/20 15:50 Dose: 100 mls/hr Documented by: YARITZA Vancomycin HCl (Vancomycin) 1,000 mg in 200 mls @ 200 mls/hr IV Q8H ISSA Lorazepam (Lorazepam 0.5 Mg Tablet) 0.5 mg PO Q6HR PRN PRN Reason: Anxiety Naloxone HCl (Naloxone 0.4 Mg/Ml Vial) 0.2 mg IV Q2MIN PRN PRN Reason: Opiate Reversal Nicotine (Nicotine 7 Mg Patch) 7 mg TOP DAILY [facility] Last Admin: 08/31/20 15:50 Dose: 7 mg Documented by: YARITZA Ondansetron HCl (Ondansetron 4 Mg/2 Ml Inj) 4 mg IV Q8HR PRN PRN Reason: Nausea And Vomiting Sodium Chloride (Sodium Chloride 0.9% Flush) 10 ml IV PRN PRN PRN Reason: Flush Sodium Chloride (Sodium Chloride 0.9% Flush) 10 ml IV BID [facility] Vancomycin HCl (Vancomycin Trough) 1 request MISC 1200 ISSA Discontinued Medications Hydromorphone HCl (Hydromorphone 1 Mg Inj) 1 mg IV NOW ONE Stop: 08/31/20 11:20 Last Admin: 08/31/20 11:41 Dose: 1 mg Documented by: KAUR Hydromorphone HCl (Hydromorphone 1 Mg Inj) 1 mg IV NOW ONE Stop: 08/31/20 13:23 Last Admin: 08/31/20 13:32 Dose: 1 mg Documented by: KAUR Vancomycin HCl (Vancomycin) 750 mg in 150 mls @ 150 mls/hr IV NOW ONE Stop: 08/31/20 14:14 Last Infusion: 08/31/20 15:29 Dose: 150 mls/hr Documented by: Admin: 08/31/20 14:20 Dose: 150 mls/hr Documented by: ESDRAS Cefepime HCl 2 gm/ Sodium (Chloride) 100 mls @ 200 mls/hr IV NOW ONE Stop: 08/31/20 13:22 Last Infusion: 08/31/20 14:01 Dose: 0 mls/hr Documented by: Admin: 08/31/20 13:34 Dose: 200 mls/hr Documented by: KAUR Oxycodone HCl (Oxycodone Ir 10 Mg Tablet) 10 mg PO Q6HR PRN PRN Reason: Pain, Severe (7-10) Promethazine HCl (Promethazine 25 Mg Tablet) 25 mg PO NOW ONE Stop: 08/31/20 11:24 Last Admin: 08/31/20 11:40 Dose: 25 mg Documented by: KAUR Vancomycin HCl (Vancomycin Per Pharmacy) 1 request MISC NOW ONE Stop: 08/31/20 14:28 Last Admin: 08/31/20 16:31 Dose: Not Given Documented by: YARITZA Vital Signs Vital signs: Vital Signs - 8 hr 08/31/20 10:50 08/31/20 11:04 08/31/20 11:30 Temperature 98.5 F Pulse Rate 107 H 101 H 99 H Respiratory Rate 20 Blood Pressure 171/80 H Pulse Oximetry 97 97 97 08/31/20 11:33 08/31/20 12:00 08/31/20 12:01 Temperature Pulse Rate 100 H 97 H 97 H Respiratory Rate Blood Pressure 156/83 H 165/127 H 164/117 H Pulse Oximetry 97 97 98 08/31/20 12:15 08/31/20 12:30 08/31/20 12:34 Temperature Pulse Rate 96 H 94 H 94 H Respiratory Rate Blood Pressure 195/98 H 182/103 H 187/99 H Pulse Oximetry 97 97 97 08/31/20 12:38 08/31/20 13:00 Temperature Pulse Rate 93 H 94 H Respiratory Rate Blood Pressure 176/104 H Pulse Oximetry 98 99 MDM - Female Genitourinary Lab Data Attestation: I reviewed the patient's lab results. Result diagrams: 08/31/20 11:15 08/31/20 11:15 Labs: Lab Results 08/31/20 08/31/20 08/31/20 Range/Units 11:15 11:15 11:15 WBC 16.0 H (4.5-11.0) X10^3/uL RBC 3.28 L (4.0-5.2) X10^6/uL Hgb 10.7 L (12.0-16.0) g/dL Hct 32.3 L (36-46) % MCV 98.6 (80-100) fL MCH 32.6 (26-34) PG MCHC 33.0 (30-36) % RDW 13.5 (11.6-14.8) % Plt Count 303 (150-400) X10^3/uL Neut % (Auto) 82.1 H (50-75) % Lymph % (Auto) 10.3 L (25-40) % Atkinson % (Auto) 7.0 (3-14) % Eos % (Auto) 0.1 L (2-4) % Baso % (Auto) 0.5 (0-2) % Neut # (Auto) 83032 H (3165-7744) /uL Lymph # (Auto) 1700 (0682-0246) /uL Atkinson # (Auto) 1100 H (0-900) /uL Eos # (Auto) 0 (0-450) /uL Baso # (Auto) 100 (0-100) /uL Sodium 135 L (137-145) mmol/L Potassium 3.6 (3.4-5.1) mmol/L Chloride 109 H (98-107) mmol/L Carbon Dioxide 16 L (22-32) mmol/L BUN 9 (7-17) mg/dL Creatinine 0.46 L (0.52-1.04) mg/dL Estimated GFR > 60.0 (>60) mL/min BUN/Creatinine Ratio 19.6 (6-22) Glucose 254 H (70-100) mg/dL Lactate 1.6 (0.7-2.1) mmol/L Calcium 9.5 (8.4-10.2) mg/dL Total Bilirubin 0.3 (0.2-1.3) mg/dL AST 26 (14-36) IU/L ALT 19 (<35) IU/L Alkaline Phosphatase 187 H (38-126) U/L Total Protein 7.3 (6.3-8.2) g/dL Albumin 3.7 (3.5-5.0) g/dL Globulin 3.6 (1.7-4.1) g/dL Albumin/Globulin Ratio 1.0 (1.0-2.8) Lipase (23-300) U/L Urine Color Urine Appearance Urine pH (4.5-8.0) Ur Specific Cicero (1.000-1.035) Urine Protein (Negative) Urine Glucose (UA) (Negative) g/dL Urine Ketones (NEGATIVE) Urine Occult Blood (Negative) Urine Nitrate (Negative) Urine Bilirubin (NEGATIVE) Urine Urobilinogen (0.2) E.U./dL Ur Leukocyte Esterase (NEGATIVE) Urine RBC (0-5/HPF) Urine WBC (0-5/HPF) Urine Bacteria (None) Ur Culture Indicated? SARS-CoV-2 (PCR) (Negative) 08/31/20 08/31/20 08/31/20 Range/Units 11:15 11:44 13:16 WBC (4.5-11.0) X10^3/uL RBC (4.0-5.2) X10^6/uL Hgb (12.0-16.0) g/dL Hct (36-46) % MCV (80-100) fL MCH (26-34) PG MCHC (30-36) % RDW (11.6-14.8) % Plt Count (150-400) X10^3/uL Neut % (Auto) (50-75) % Lymph % (Auto) (25-40) % Atkinson % (Auto) (3-14) % Eos % (Auto) (2-4) % Baso % (Auto) (0-2) % Neut # (Auto) (0833-7240) /uL Lymph # (Auto) (8091-8524) /uL Atkinson # (Auto) (0-900) /uL Eos # (Auto) (0-450) /uL Baso # (Auto) (0-100) /uL Sodium (137-145) mmol/L Potassium (3.4-5.1) mmol/L Chloride (98-107) mmol/L Carbon Dioxide (22-32) mmol/L BUN (7-17) mg/dL Creatinine (0.52-1.04) mg/dL Estimated GFR (>60) mL/min BUN/Creatinine Ratio (6-22) Glucose (70-100) mg/dL Lactate (0.7-2.1) mmol/L Calcium (8.4-10.2) mg/dL Total Bilirubin (0.2-1.3) mg/dL AST (14-36) IU/L ALT (<35) IU/L Alkaline Phosphatase (38-126) U/L Total Protein (6.3-8.2) g/dL Albumin (3.5-5.0) g/dL Globulin (1.7-4.1) g/dL Albumin/Globulin Ratio (1.0-2.8) Lipase < 10 L (23-300) U/L Urine Color Yellow Urine Appearance Clear Urine pH 6.5 (4.5-8.0) Ur Specific [place] 1.010 (1.000-1.035) Urine Protein Negative (Negative) Urine Glucose (UA) Trace H (Negative) g/dL Urine Ketones Negative (NEGATIVE) Urine Occult Blood Trace-intact (Negative) Urine Nitrate Positive H (Negative) Urine Bilirubin Negative (NEGATIVE) Urine Urobilinogen 0.2 (0.2) E.U./dL Ur Leukocyte Esterase Negative (NEGATIVE) Urine RBC None seen (0-5/HPF) Urine WBC 1-5/hpf (0-5/HPF) Urine Bacteria Many (>30) H (None) Ur Culture Indicated? Specimen cultured SARS-CoV-2 (PCR) Negative (Negative) Imaging Data CT scan - abdomen/pelvis: Radiologist's Impression: PROCEDURE: CT ABDOMEN PELVIS W CON INDICATIONS: worsening ab pain TECHNIQUE: After the administration of intravenous contrast, 5 mm thick sections acquired from the diaphragm to the symphysis. 5 mm coronal and sagittal reformats were acquired. For radiation dose reduction, the following was used: automated exposure control, adjustment of mA and/or kV according to patient size. COMPARISON: [facility], CT, CT ABDOMEN PELVIS WITH CONTRAST, 07/04/2020, 13:22. FINDINGS: Image quality: Excellent. ABDOMEN: Lung bases: Lung bases are clear. Heart size is normal. Solid organs: Liver is enlarged in size at 20.6 cm craniocaudad and enhancement. Gallbladder has been previously resected. Biliary system is slightly dilated, previously the case, both within the intrahepatic and extrahepatic bile ducts. Pancreas enhances normally. Spleen is normal in size and enhancement. No adrenal nodules. Kidneys demonstrate normal size and enhancement, without stone induced hydronephrosis. There is mild prominence of the central renal collecting system symmetric bilaterally, and the ureters also are mildly prominent, and this is secondary to a urinary diversion procedure within the pelvis likely an ileal loop conduit through an ostomy at the right lower quadrant. No recurrent mass lesion in the bladder resection bed, or adenopathy is found. Peritoneum and bowel: Bowel loops demonstrate normal wall thickness and mahendra iber. No free fluid or air. Nodes and vessels: No retroperitoneal or mesenteric adenopathy by size criteria. Aorta and inferior vena cava are normal in size. Miscellaneous: No ventral hernias. PELVIS: Genitourinary: Bladder wall thickness is normal. Miscellaneous: No inguinal hernias or adenopathy. Bones: No suspicious bony lesions. No vertebral body compression fractures. IMPRESSION: Source of worsening pain within the abdomen/pelvis is not seen. The patient has undergone prior bladder resection and what appears to be an ileal loop conduit through right lower quadrant ostomy site to the surface. Mild associated hydronephrosis and hydroureter is present, equivalent to that previously seen on the comparison CT from June of this year. No sign of bowel inflammation. Prior cholecystectomy with secondary mild prominence of the intrahepatic and extrahepatic bile ducts, stable over time. Hepatomegaly, with the liver free of focal mass lesion. A small portion of the lungs is seen bilaterally, showing patchy alveolar infiltration. This appears slightly more prominent than on the comparison study from June. Please correlate clinically for whether atypical pulmonary infection could be present in this patient. Dictated by: Akbar Ortiz M.D. on 08/31/2020 at 11:34 MDM Narrative Medical decision making narrative: Patient has history of multi-drug resistant infections she previously had leukocytosis of 19 today is 16 she is having increasing pain a today she also has noted have nitrates in her urine urine at [facility] did not show nitrate. She is hemodynamically stable not tachycardic at this time no signs of severe sepsis. She is given a dose of vancomycin and cefepime in the emergency department. Patient agrees to stay in hospital at this time Dr. Bravo, updated patient's symptoms test results and accepts patient. Discharge Plan Departure Patient Disposition: Admitted As Inpatient Clinical Impression: Pyelonephritis, UTI (urinary tract infection) Admit Date/Time: 08/31/20 13:22 Admit Provider: Jose Hackett
[2020-08-31 11:32] LABS: Add Manual Diff / Slide Review NO; Basophils Absolute Auto 100 /uL (0-100); Basophils Percent Auto 0.5 % (0-2); Eosinophils Absolute Auto 0 /uL (0-450); Eosinophils Percent Auto 0.1 % (2-4); Hematocrit 32.3 % (36-46); Hemoglobin 10.7 g/dL (12.0-16.0); Lymphocytes Absolute Auto 1700 /uL (1100-4500); Lymphocytes Percent Auto 10.3 % (25-40); Mean Corpuscular Hemoglobin 32.6 PG (26-34); Mean Corpuscular Volume 98.6 fL (80-100); Monocytes Absolute Auto 1100 /uL (0-900); Neutrophils Absolute Auto 13100 /uL (1500-7000); Neutrophils Percent Auto 82.1 % (50-75); Platelet Count 303 X10^3/uL (150-400); Red Blood Cell Count 3.28 X10^6/uL (4.0-5.2); Red Cell Distribution Width 13.5 % (11.6-14.8)
[2020-08-31 11:37] LABS: Alanine Aminotransferase 19 IU/L (<35); Albumin 3.7 g/dL (3.5-5.0); Alkaline Phosphatase 187 U/L (38-126); Aspartate Aminotransferase 26 IU/L (14-36); BUN Creatinine Ratio 19.6 (6-22); Bilirubin Total 0.3 mg/dL (0.2-1.3); Blood Urea Nitrogen 9 mg/dL (7-17); Calcium 9.5 mg/dL (8.4-10.2); Carbon Dioxide 16 mmol/L (22-32); Chloride 109 mmol/L (98-107); Estimated Glomerular Filt Rate > 60.0 mL/min (>60); Globulin 3.6 g/dL (1.7-4.1); Glucose 254 mg/dL (70-100); HEMOLYSIS 17 (0-50); Potassium 3.6 mmol/L (3.4-5.1); Sodium 135 mmol/L (137-145); Total Protein 7.3 g/dL (6.3-8.2)
[2020-08-31 11:38] LABS: Lactate (Lactic Acid) 1.6 mmol/L (0.7-2.1)
[2020-08-31] MEDS: PROMETHAZINE 25 MG TABLET PO (11:40)
[2020-08-31] MEDS: HYDROMORPHONE 1 MG INJ IV ×2 (11:41→13:32)
[2020-08-31 11:48] LABS: Lipase < 10 U/L (23-300)
[2020-08-31 11:49] LABS: Appearance Urine UA CLEAR; Bilirubin Urine UA NEGATIVE (NEGATIVE); Color Urine UA YELLOW; Glucose Urine UA TRACE g/dL (Negative); Ketones Urine UA NEGATIVE (NEGATIVE); Leukocyte Esterase Urine UA NEGATIVE (NEGATIVE); Nitrite Urine UA POSITIVE (Negative); Occult Blood Urine UA TRACE-INTACT (Negative); Protein Urine UA NEGATIVE (Negative); RBC Urine None Seen (0-5/HPF); Urobilinogen Urine UA 0.2 E.U./dL (0.2); pH Urine UA 6.5 (4.5-8.0)
[2020-08-31 11:58] LABS: Bacteria Urine Many (>30); Culture Indicated Urine Specimen Cultured; WBC Urine 1-5/HPF (0-5/HPF)
[2020-08-31] MEDS: CEFEPIME 2 GM in SODIUM CHLORIDE 0.9% 100 ML 200 ML IV (13:34)
[2020-08-31 14:14] LABS: COVID19 - ADMIT (NP swab/PCR) Negative (Negative)
[2020-08-31] MEDS: VANCOMYCIN 750 MG/150 ML PIGGYBACK 150 MG IV (14:20)
[2020-08-31] MEDS: NICOTINE 7 MG PATCH TOP (15:50)
[2020-08-31] MEDS: levoFLOXacin 750 MG/150 ML PIGGYBACK 100 MG IV (15:50)
[2020-08-31] MEDS: SODIUM CHLORIDE 0.9% 1,000 ML 100 ML IV (15:54)
[2020-08-31] MEDS: HYDROMORPHONE 2 MG TABLET PO ×2 (16:10→21:54)
[2020-08-31] MEDS: VANCOMYCIN 1,000 MG/200 ML PIGGYBACK 200 MG IV (19:49)
[2020-08-31] MEDS: LORazepam 0.5 MG TABLET PO (19:50)
[2020-08-31] MEDS: ONDANSETRON 4 MG/2 ML INJ IV (19:59)
[2020-08-31] MEDS: DOCUSATE 100 MG CAPSULE PO (20:06)
[2020-08-31] MEDS: ROPINIROLE 0.25 MG TABLET 0.5 MG PO (20:06)
[2020-08-31] MEDS: QUETIAPINE 100 MG TABLET 300 MG PO (20:07)
[2020-08-31] MEDS: DULOXETINE 30 MG CAPSULE 60 MG PO (20:07)
[2020-08-31] MEDS: GABAPENTIN 300 MG CAPSULE 900 MG PO (20:07)
--- NOTE | 2020-08-31 20:14 | PM.HP.1 ---
History of Present Illness History of Present Illness Date Patient Seen: 08/31/20 Time Patient Seen: 15:15 Chief complaint: kidney infection Narrative: Ms. Gibbs is a 55W with PMH of frequent UTIs, chronic interstitial cystitis, urostomy, COPD, depression, DM, HL, HTN, chronic pain who is coming in with abdominal and flank pain. She states her pain is like tightness diffusely in abdomen with radiation to back and flanks bilaterally. She has nausea, an episode of vomiting, no diarrhea. No chest pain, cough, or shortness of breath. Of note she was admitted recently to [facility] with similar symptoms but said she left because of panic attacks. She has previously left the hospital against medical advice. In the ER, she had no fever, she was mildly tachycardic in 100s, blood pressure elevated 170s. Labs notable for WBC of 16, 82% PMNs. Na 135, cl 109, co2 16, lactate 1.8. UA shoed positive nitrates, many bacteria. CT Abdomen showed no acute process, but did not prior bladder resection with ileal loop conduit. Mild hydronephrosis and hydroureter was noted which was stable from previously. CT also noted possible patchy alveolar infiltration, though not completely evaluated due to being abdominal imaging. Chest xray was ordered. She was ordered for cefepime and vancomycin in the ED. Patient History Medical History Anxiety Closed fracture of left humerus Endometriosis Fibromyalgia Heart palpitations History of asthma History of chronic hypertension History of COPD History of depression History of gastrointestinal ulcer History of kidney stones History of migraine History of panic attacks History of type 2 diabetes mellitus Hyperlipidemia Interstitial cystitis UTI (urinary tract infection) Surgical History History of urostomy S/P appendectomy Status post hysterectomy Status post left rotator cuff repair Family & Social History Family History Mother Diabetes mellitus Lupus Social History: household members spouse Prior Living Arrangements House Safety & Behavioral: Feels Safe in Current Yes Environment Been Physically Hurt or No Threatened By a Person Suicidal Ideation Description None Suicide Plan Description No Plan Tobacco & Substance use: Tobacco type cigarettes Smoking Status Current every day smoker alcohol intake current alcohol intake frequency holiday/special occasion Substance Use Type former substance user Meds Home Medications and Allergies Home Medications Medication Instructions Recorded Confirmed Type albuterol sulfate [Proventil HFA] 2 puff INH Q4HP PRN #0 01/08/13 08/31/20 History hydroxyzine HCl 50 mg PO BID #0 01/08/13 08/31/20 History duloxetine 60 mg PO BEDTIME #0 07/04/17 08/31/20 History gabapentin [Neurontin] 900 mg PO BID #0 07/04/17 08/31/20 History multivitamin [Multiple Vitamins] 1 tab PO DAILY #0 07/04/17 08/31/20 History zolpidem [Ambien] 10 mg PO HS PRN #0 07/04/17 08/31/20 History Probiotic 1 tab PO DAILY 09/26/17 08/31/20 History omeprazole 40 mg PO BID 09/26/17 08/31/20 History ondansetron 1 tab TRANSLINGUAL Q6H PRN 09/26/17 08/31/20 History lorazepam 0.5 mg PO BEDTIME 05/30/18 08/31/20 History Humulin N NPH Insulin KwikPen 15 unit SUBCUT BID 05/17/19 08/31/20 History methocarbamol 1,000 mg PO QID 05/17/19 08/31/20 History quetiapine 300 mg PO BEDTIME 11/04/19 08/31/20 History magnesium glycinate 800 mg PO BEDTIME 12/08/19 08/31/20 History melatonin 20 mg PO BEDTIME 12/08/19 08/31/20 History promethazine 25 mg PO TID PRN #10 tab 04/16/20 08/31/20 Rx promethazine 25 mg DC Q4-6H PRN #12 ea 04/19/20 08/31/20 Rx cholecalciferol (vitamin D3) 25 mcg PO DAILY 08/31/20 08/31/20 History [Vitamin D3] docusate sodium 100 mg PO DAILY 08/31/20 08/31/20 History prazosin 1 mg PO BEDTIME 08/31/20 08/31/20 History ropinirole [Requip] 0.5 mg PO BEDTIME 08/31/20 08/31/20 History sumatriptan succinate 25 mg PO DIRECTED PRN 08/31/20 08/31/20 History vitamin E 400 unit PO DAILY 08/31/20 08/31/20 History Allergies Allergy/AdvReac Type Severity Reaction Status Date / Time mupirocin Allergy Unknown Verified 06/17/20 11:28 naproxen Allergy Unknown Verified 06/17/20 11:28 Penicillins Allergy Unknown SINCE Verified 06/17/20 11:28 CHILDHOOD droperidol AdvReac Unknown Verified 06/17/20 11:28 fenofibrate [FENOFIBRATE] AdvReac Unknown Verified 06/17/20 11:28 ibuprofen AdvReac Unknown NAUSEA Verified 06/17/20 11:28 metformin [METFORMIN] AdvReac Unknown Verified 06/17/20 11:28 metoclopramide AdvReac Unknown BECAME Verified 06/17/20 11:28 JITTERY AND ANXIOUS nitrofurantoin AdvReac Unknown NAUSEA Verified 06/17/20 11:28 Review of Systems Review of Systems Narrative: 14 systems reviewed and negative aside from what is noted in HPI Exam Vital Signs (past 8 hours): - 08/31/20 12:15 08/31/20 12:30 08/31/20 12:34 Temperature Pulse Rate 96 H 94 H 94 H Respiratory Rate Blood Pressure 195/98 H 182/103 H 187/99 H Pulse Oximetry 97 97 97 08/31/20 12:38 08/31/20 13:00 08/31/20 13:30 Temperature Pulse Rate 93 H 94 H 93 H Respiratory Rate Blood Pressure 176/104 H Pulse Oximetry 98 99 98 08/31/20 16:25 08/31/20 16:54 Temperature 99.3 F Pulse Rate 101 H Respiratory Rate 20 Blood Pressure 166/93 H Pulse Oximetry 99 96 Oxygen Delivery Method Room Air Oxygen Flow Rate 0 Narrative Exam Narrative: GENERAL: chronically ill appearing woman, no acute distress HEENT: PERRL, moist mucous membranes NECK: trachea midline, no JVD CARDIOVASCULAR: Regular rate and rhythm without murmurs RESPIRATORY: clear bilaterally with no wheezes, rhonchi, rales ABDOMEN: Soft, minimal tenderness, normal bowel sounds, no organomegaly, urostomy noted on right with slight clear urine BACK: inconsistent CVA tenderness, elicited on palpation EXTREMITIES: no edema NEUROLOGICAL: Alert and oriented x4. normal speech, moving all extremities with no gross deficits SKIN: Warm, dry, scattered scabbing and scarring on skin PSYCH: pleasant, anxious Objective Labs Result Diagrams: 08/31/20 11:15 08/31/20 11:15 Labs: Laboratory Results - last 24 hr 08/31/20 08/31/20 08/31/20 11:15 11:15 11:15 WBC 16.0 H RBC 3.28 L Hgb 10.7 L Hct 32.3 L MCV 98.6 MCH 32.6 MCHC 33.0 RDW 13.5 Plt Count 303 Neut % (Auto) 82.1 H Lymph % (Auto) 10.3 L [place] % (Auto) 7.0 Eos % (Auto) 0.1 L Baso % (Auto) 0.5 Neut # (Auto) 43078 H Lymph # (Auto) 1700 [place] # (Auto) 1100 H Eos # (Auto) 0 Baso # (Auto) 100 Sodium 135 L Potassium 3.6 Chloride 109 H Carbon Dioxide 16 L BUN 9 Creatinine 0.46 L Estimated GFR > 60.0 BUN/Creatinine Ratio 19.6 Glucose 254 H Lactate 1.6 Calcium 9.5 Total Bilirubin 0.3 AST 26 ALT 19 Alkaline Phosphatase 187 H Total Protein 7.3 Albumin 3.7 Globulin 3.6 Albumin/Globulin Ratio 1.0 Lipase Urine Color Urine Appearance Urine pH Ur Specific [place] Urine Protein Urine Glucose (UA) Urine Ketones Urine Occult Blood Urine Nitrate Urine Bilirubin Urine Urobilinogen Ur Leukocyte Esterase Urine RBC Urine WBC Urine Bacteria Ur Culture Indicated? SARS-CoV-2 (PCR) 08/31/20 08/31/20 08/31/20 11:15 11:44 13:16 WBC RBC Hgb Hct MCV MCH MCHC RDW Plt Count Neut % (Auto) Lymph % (Auto) [place] % (Auto) Eos % (Auto) Baso % (Auto) Neut # (Auto) Lymph # (Auto) [place] # (Auto) Eos # (Auto) Baso # (Auto) Sodium Potassium Chloride Carbon Dioxide BUN Creatinine Estimated GFR BUN/Creatinine Ratio Glucose Lactate Calcium Total Bilirubin AST ALT Alkaline Phosphatase Total Protein Albumin Globulin Albumin/Globulin Ratio Lipase < 10 L Urine Color Yellow Urine Appearance Clear Urine pH 6.5 Ur Specific [place] 1.010 Urine Protein Negative Urine Glucose (UA) Trace H Urine Ketones Negative Urine Occult Blood Trace-intact Urine Nitrate Positive H Urine Bilirubin Negative Urine Urobilinogen 0.2 Ur Leukocyte Esterase Negative Urine RBC None seen Urine WBC 1-5/hpf Urine Bacteria Many (>30) H Ur Culture Indicated? Specimen cultured SARS-CoV-2 (PCR) Negative Assessment & Plan Assessment & Plan narrative: 54WM with PMH COPD, DM, HTN, HL, anxiety, depression, chronic pain who has frequent UTIs with urostomy who presents abdominal pain found to have urinary infection. 1. Acute pyelonephritis -she has chronic urostomy tube with multiple previous infections with differents MDROs -has leukocytosis, nitrates and bacteria in urine -urine cultures and blood cultures pending -apparent was on vancomycin and ceftriaxone at [facility] recently -for now continue vancomycin and levofloxacin, will narrow based on cultures -may need outpatient ID for suppressive antibiotics 2. Alveolar infiltrates on CT scan -no clinical pneumonia -will order chest xray for further evaluation -antibiotics as above, if atypical pneumonia levofloxacin may treat sufficiently 3. Type 2 diabetes -patient currently on NPH insulin -will continue her outpatient dose -will add correctional insulin as well 4. COPD -no evidence of exacerbation at this time -continue albuterol inhaler -patient continues to smoke half a pack per day -smoking cessation counseling has been provided -patient to receive a nicotine patch during her hospital stay 4. Hypertension -continue lisinopril 5. Anxiety and depression -will continue usual home medication to include lorazepam and duloxetine -patient to continue on her Seroquel 6. Chronic pain -will continue gabapentin, ropinirole -patient requesting IV opiate medications with dilaudid which I do not see indication for currently -recommended oral narcotics for now IVF: Normal saline 100cc/hr DIET: Diabetic DVT ppx: Heparin BID Sc CODE: Full, proxy is Dwayne Brian VTE Deep Vein Thrombosis/Pulmonary Embolism Present on Admission: No
--- NOTE | 2020-08-31 20:21 | DI.RAD.S_ITS ---
PROCEDURE: XR CHEST 1V INDICATIONS: cough TECHNIQUE: One view of the chest was acquired. COMPARISON: [facility], CT, CT ABDOMEN PELVIS WITH CONTRAST, 07/04/2020, 13:22. [facility], CT, CT ABDOMEN PELVIS W CON, 08/31/2020, 12:11. [facility], CR, XR CHEST 2V, 03/10/2020, 9:40. [facility], CT, CT HEAD/BRAIN WO CON, 04/08/2020, 9:43. [facility], CR, XR CHEST 1V, 04/16/2020, 11:36. FINDINGS: Surgical changes and devices: None. Lungs and pleura: Subtle patchy airspace opacities bilaterally are seen with no focal consolidation. No pleural effusions or pneumothorax. Mediastinum: Mediastinal contours appear normal. Heart size is normal. Bones and chest wall: No suspicious bony lesions. Overlying soft tissues appear unremarkable. IMPRESSION: Subtle patchy ground-glass opacities in both lung ramirez consistent with a diffuse atypical infectious process, however similar findings were seen on CT earlier today and prior CT on 07/04/2020, therefore also consider other possibilities such as pulmonary edema, nonspecific interstitial pneumonitis, hypersensitivity pneumonitis, chronic eosinophilic pneumonia, among others. Dictated by: Devon Garcia M.D. on 08/31/2020 at 21:24 Approved by: Devon Garcia M.D. on 08/31/2020 at 21:32
[2020-08-31] MEDS: INSULIN GLARGINE 100 UNIT/ML 3ML PEN 15 UNIT SUBCUT (20:46)
--- NOTE | 2020-08-31 21:23 | PC.NURSE ---
Nurse found room to be smokey with cigarette odor. Pt stated she was not smoking and the odor was r/t open pack of cigarettes. This Coordinator RN discussed hospital smoking policy. Pt verbalized understanding and agreed to have cigarettes and linux unix administrator to be placed in hospital safe.
[2020-08-31] MEDS: HEPARIN 5,000 UNIT/ML VIAL 5000 UNIT SUBCUT (21:54)
[2020-09-01] VITALS (8 sets, daily range): BP systolic 98–176; BP diastolic 51–98; PULSE 90–115; RESP 16–20; TEMP 36.2–37.4; O2SAT 93–99
[2020-09-01] MEDS: ONDANSETRON 4 MG/2 ML INJ IV ×2 (02:46→10:18)
[2020-09-01] MEDS: KETOROLAC 30 MG/ML VIAL IV (02:47)
--- NOTE | 2020-09-01 02:57 | PC.NURSE ---
Addendum entered by Valeria Hurtado R.N. 09/01/20 06:18: IV found to be infiltrated so discontinued. Patient refused to have new IV restarted; Navin GRUBER, informed Addendum entered by Valeria Hurtaod R.N. 09/01/20 04:05: Patient asleep but upon waking immediately states pain is 8/10; medicated with po Dilaudid. Did state the Toradol worked a little. Original Note: Patient alert and oriented but labile in that upset with staff and then later tearful and crying. Complains of 8/10 abdomen/back pain but too early to administer additional Dilaudid so patient threatening to walk home. Discussed with Navin GRUBER, who order IV Toradol and then went in to see patient. Patient became quite upset with YASMANI and told her to leave the room. After Teresa NEWELL, went in to see patient (is personal acquaintance) she was much calmer and apologetic to staff. Verbalizes agreement to plan of care. Breath sounds CTA but diminished with RA sat of 93-94%. HRR. Initially BP 98/51 but on recheck was 125/76. HR initially 90 but with emotional distress did increase to 115. Does complain of some nausea but without emesis and was medicated with Zofran. BT present and abdomen is soft. Urostomy is patent; urine is clear. Able to move self in bed. Gait not assessed. Declines use of SCD's so reminded to ankle wave when awake. Fall risk score is moderate and agreeable to having bed alarm on.
[2020-09-01] MEDS: VANCOMYCIN 1,000 MG/200 ML PIGGYBACK 200 MG IV (04:02)
[2020-09-01] MEDS: HYDROMORPHONE 2 MG TABLET PO ×6 (04:02→22:47)
[2020-09-01 05:31] LABS: Add Manual Diff / Slide Review NO; Basophils Absolute Auto 100 /uL (0-100); Basophils Percent Auto 0.9 % (0-2); Eosinophils Absolute Auto 200 /uL (0-450); Eosinophils Percent Auto 1.2 % (2-4); Hematocrit 28.3 % (36-46); Hemoglobin 9.5 g/dL (12.0-16.0); Lymphocytes Absolute Auto 2100 /uL (1100-4500); Lymphocytes Percent Auto 13.6 % (25-40); Mean Corpuscular HGB Conc 33.7 % (30-36); Mean Corpuscular Hemoglobin 33.4 PG (26-34); Mean Corpuscular Volume 99.3 fL (80-100); Monocytes Absolute Auto 1400 /uL (0-900); Monocytes Percent Auto 9.2 % (3-14); Neutrophils Absolute Auto 11500 /uL (1500-7000); Neutrophils Percent Auto 75.1 % (50-75); Platelet Count 257 X10^3/uL (150-400); Red Blood Cell Count 2.85 X10^6/uL (4.0-5.2); Red Cell Distribution Width 13.6 % (11.6-14.8); White Blood Cell Count 15.3 X10^3/uL (4.5-11.0)
[2020-09-01 05:44] LABS: Hemoglobin A1C% w Est Avg Glu 7.2 % (4.0-6.0)
[2020-09-01 05:48] LABS: BUN Creatinine Ratio 16.3 (6-22); Blood Urea Nitrogen 8 mg/dL (7-17); Calcium 8.6 mg/dL (8.4-10.2); Carbon Dioxide 21 mmol/L (22-32); Chloride 111 mmol/L (98-107); Estimated Glomerular Filt Rate > 60.0 mL/min (>60); Glucose 135 mg/dL (70-100); HEMOLYSIS < 15 (0-50); Potassium 3.2 mmol/L (3.4-5.1); Sodium 136 mmol/L (137-145)
--- NOTE | 2020-09-01 07:55 | PC.NURSE ---
Addendum entered by Jonny Longo R.N. 09/01/20 15:19: Patient agreed to have IV placed by KILEY Mills, which was placed and working with out difficulty. Patient spoke with Dr. Hackett and discussed plan of care with this RN and agreed to stay for treatment of her infection. Initially patient concerned about taking her lantus insulin as she had very minimal appetite with some nausea. Medicated with zofran and oral dilaudid as ordered and patient felt improved. Agreed to her morning lantus dose and attempted to eat some food her brought to her. Patient's mood and pain much improved this afternoon, up ad cierra, steady on feet and moving around without difficulty. Urostomy appliance changed, urine is increasing in clarity and is now pale yellow. Call light withi nreach. Original Note: Per PRODUCTION UNDERWRITER patient called warehouse distribution manager light to say she wanted to leave this morning. Patient seen and examined. She is very upset, using profanity and stating that she has not received any care or medications for her pain. Patient has no IV access in at this time, explained to patient need to place IV for medications ordered. Patient refused, stating she plans to leave and go home and have her urostomy bag changed and wanted to go to [facility]. Reviewed available medications with her this morning and she declines all medications at this time. Currently sitting up in bed with her legs crossed, moving without difficulty. Patient denies shortness of breath, chest pains, weakness or nausea/vomiting. Endorses pain severe around abdomen and across lower back and flank area. Urostomy appliance intact and draining clear yellow urine with some mucous strands. Notified MD to come see patient with her request to leave.
[2020-09-01] MEDS: LORazepam 0.5 MG TABLET PO ×2 (09:24→21:23)
[2020-09-01] MEDS: HEPARIN 5,000 UNIT/ML VIAL 5000 UNIT SUBCUT ×2 (09:24→21:26)
[2020-09-01] MEDS: NICOTINE 7 MG PATCH TOP (09:24)
[2020-09-01] MEDS: DOCUSATE 100 MG CAPSULE PO ×2 (09:24→21:23)
[2020-09-01] MEDS: CHOLECALCIFEROL (VITAMIN D3) 1,000 UNIT TABLET 1000 UNIT PO (09:24)
[2020-09-01] MEDS: GABAPENTIN 300 MG CAPSULE 900 MG PO (09:24)
[2020-09-01] MEDS: INSULIN GLARGINE 100 UNIT/ML 3ML PEN 15 UNIT SUBCUT ×2 (10:32→21:29)
[2020-09-01] MEDS: SODIUM CHLORIDE 0.9% 1,000 ML 100 ML IV ×2 (10:42→23:56)
[2020-09-01] MEDS: ALBUTEROL/IPRATROPIUM 3 ML AMPUL INH (11:20)
--- NOTE | 2020-09-01 11:29 | CM.DANOTE ---
Patient is a 55 year old female who was admitted on 08/31/20 for kidney infection. Pt has [employer] for insurance and her PCP is Dr. Fadi Ko. EMR was reviewed. Per MD, pt with hx of frequent UTIs, COPD, anxiety/depression, urostomy and was recently at [facility] and left AMA due to anxiety. Pt admitted for pyelonephritis and IV Vanco. Per RN, pt has been very anxious to d/c today and initially was discussing leaving AMA and not wanting IV access placed today. RN has been able to encourage pt to get IV access initiated to begin the medication needed to treat her medical symptoms but pt quite easily upset and request made to limit interaction with her at this time as she waxes and wanes on leaving AMA. Pt has at least 7 ED visits in the past 5 months and many ED visits last year with an ETOH combative in Nov 2019 and last admission to [facility] was Nov last 2019 and pt and spouse were given MH resources due to pt's admitted challenges with anxiety/panic attacks/depression. Unclear if pt has established with Mental Health counselor or supports. Per RN, pt has an established RN who comes to the house about every 4 days to complete her urostomy changes but unsure what agency the RN is through. SW called [facility] and they are not open with pt to service and Sig shows pt not current but they worked with her last 2019. Plan: DCP needs unclear at this time, and SW to follow for bedside assessment when more medically appropriate. SW to follow with pt to determine who pt's home RN is through for her urostomy. MYNOR Sanchez Discharge Planning/Care Management CM Discharge Assessment Start: 09/01/20 11:06 Freq: Status: Active Protocol: Document 09/01/20 11:06 BF (Rec: 09/01/20 11:29 BF [id number]) Discharge Planning Assessment Assigned Out And Out Cigar Maker Hand MYNOR Ram DPOA/Assigned Designee Name informally spouse Dwayne Contact Information [phone] Advance Directives? No Advance Directives on File No History Provided By Patient,Medical Record Has Patient been admitted in last 30 No days? Prior Living Arrangements House Household Members spouse Type of transporation used prior to Drives own vehicle admit Independent with ADL's Yes Is patient alert and oriented? Yes Caregiver for Another No Community Services used prior to Home Health Nurse admission: Patient/Family Preference Home with Home Health Comment Pt believes she is open with a HH RN but unsure what agency Barriers to Discharge Yes Comment hx of frequent AMA or wanting to leave AMA due to high anxiety issues Discharge Plan Home with Home Health Community [facility] Home Health Nurse Transportation Arrangement Spouse Review Status In Process Please Provide Date Initial DC 09/01/20 Assessment Was Performed Next Review Type Continued Stay Review
[2020-09-01] MEDS: POTASSIUM CHLORIDE 20 MEQ/15 ML UDC 40 MEQ PO (11:35)
--- NOTE | 2020-09-01 12:43 | PM.PN.1 ---
Subjective Subjective Date Patient Seen: 09/01/20 Time Patient Seen: 08:43 Interval history: Today she continues to state she has tightness around her abdomen. Still has nausea. Per nursing staff, patient found smoking with lit cigarette. Patient verbalizes many issues for which she is dissatisfied with staff. Has expressed many times she may leave AMA. Exam Vital Signs (past 8 hours): - 09/01/20 07:55 09/01/20 08:00 09/01/20 11:20 Temperature 98.3 F Pulse Rate 91 H 90 Respiratory Rate 18 16 Blood Pressure 140/83 Pulse Oximetry 95 96 99 Oxygen Delivery Method Room Air Oxygen Flow Rate 0 Narrative Exam Narrative: GENERAL: chronically ill appearing woman, no acute distress HEENT: PERRL, moist mucous membranes NECK: trachea midline, no JVD CARDIOVASCULAR: Regular rate and rhythm without murmurs RESPIRATORY: clear bilaterally with no wheezes, rhonchi, rales ABDOMEN: Soft, minimal tenderness, normal bowel sounds, no organomegaly, urostomy noted on right with slight clear urine BACK: inconsistent CVA tenderness, today left greater than right EXTREMITIES: no edema NEUROLOGICAL: Alert and oriented x4. normal speech, moving all extremities with no gross deficits SKIN: Warm, dry, scattered scabbing and scarring on skin PSYCH: pleasant, anxious Objective Labs Result Diagrams: 09/01/20 05:00 09/01/20 05:00 Labs: Laboratory Results - last 24 hr 08/31/20 09/01/20 09/01/20 13:16 05:00 05:00 WBC 15.3 H RBC 2.85 L Hgb 9.5 L Hct 28.3 L MCV 99.3 MCH 33.4 MCHC 33.7 RDW 13.6 Plt Count 257 Neut % (Auto) 75.1 H Lymph % (Auto) 13.6 L [place] % (Auto) 9.2 Eos % (Auto) 1.2 L Baso % (Auto) 0.9 Neut # (Auto) 95553 H Lymph # (Auto) 2100 [place] # (Auto) 1400 H Eos # (Auto) 200 Baso # (Auto) 100 Sodium Potassium Chloride Carbon Dioxide BUN Creatinine Estimated GFR BUN/Creatinine Ratio Glucose Hemoglobin A1c 7.2 H Calcium SARS-CoV-2 (PCR) Negative 09/01/20 05:00 WBC RBC Hgb Hct MCV MCH MCHC RDW Plt Count Neut % (Auto) Lymph % (Auto) [place] % (Auto) Eos % (Auto) Baso % (Auto) Neut # (Auto) Lymph # (Auto) [place] # (Auto) Eos # (Auto) Baso # (Auto) Sodium 136 L Potassium 3.2 L Chloride 111 H Carbon Dioxide 21 L BUN 8 Creatinine 0.49 L Estimated GFR > 60.0 BUN/Creatinine Ratio 16.3 Glucose 135 H D Hemoglobin A1c Calcium 8.6 SARS-CoV-2 (PCR) [facility] Medical History Anxiety Closed fracture of left humerus Endometriosis Fibromyalgia Heart palpitations History of asthma History of chronic hypertension History of COPD History of depression History of gastrointestinal ulcer History of kidney stones History of migraine History of panic attacks History of type 2 diabetes mellitus Hyperlipidemia Interstitial cystitis UTI (urinary tract infection) Surgical History History of urostomy S/P appendectomy Status post hysterectomy Status post left rotator cuff repair Family History Mother Diabetes mellitus Lupus Social History household members: spouse Smoking Status: Current every day smoker alcohol intake: current Assessment & Plan Assessment & Plan narrative: 54WM with PMH COPD, DM, HTN, HL, anxiety, depression, chronic pain who has frequent UTIs with urostomy who presents abdominal pain found to have urinary infection. 1. Acute pyelonephritis -she has chronic urostomy tube with multiple previous infections with differents MDROs -has leukocytosis, nitrates and bacteria in urine -urine cultures and blood cultures pending -urine culture shows gram negative bacilli -stopped vancomycin -apparent was on vancomycin and ceftriaxone at [facility] recently -for now continue levofloxacin, will change based on cultures -may need outpatient ID for suppressive antibiotics 2. Alveolar infiltrates on CT scan -no clinical pneumonia -chest xray showed subtle patchy ground glass opacities, which have been present since 07/04 -clinically patient does not have a pneumonia -antibiotics as above, if atypical pneumonia levofloxacin may treat sufficiently 3. Type 2 diabetes -patient currently on NPH insulin -will continue her outpatient dose -will add correctional insulin as well 4. COPD -no evidence of exacerbation at this time -continue albuterol inhaler -patient continues to smoke half a pack per day -smoking cessation counseling has been provided -patient to receive a nicotine patch during her hospital stay 4. Hypertension -continue lisinopril when infection improved 5. Anxiety and depression -will continue usual home medication to include lorazepam and duloxetine -patient to continue on her Seroquel 6. Chronic pain -will continue gabapentin, ropinirole -patient requesting IV opiate medications with dilaudid which I do not see indication for currently -recommended oral narcotics for now IVF: Normal saline 100cc/hr DIET: Diabetic DVT ppx: Heparin BID Sc CODE: Full, proxy is Dwayne Brian VTE Deep Vein Thrombosis/Pulmonary Embolism Present on Admission: No
--- NOTE | 2020-09-01 13:02 | DIET.PN ---
Dietary Progress Note Assessment: 55y F admitted for pyelonephritis c pmhx of frequent UTIs c urostomy, COPD, depression, DM (A1c 7.2), HLD, HTN, chronic pain referred to nutrition for low body weight. Pt is at highest body weight over past 1y with BMI 19.0 which is on the slight side but still WNL for age. In 09/14 pt was admitted to c BMI 15 after prolonged hospitalization at [facility] where she had been intubated. Pts A1c 7.2 indicating adequate BG control at this time. RD counselled pt previously on nutrient repletion and not going in patient room today as pt irritated and considering leaving AMA. HT: 170.1cm WT: 55kg UBW: 44-51kg BMI: 19.0 Labs: WBC 15.3 H, K+ 3.2, Cr 0.49 L, A1c 7.2 MNA: 11 @ risk for malnutrition Johnnie:21 Nutrition Diagnosis: none at this time Interventions: 1. Pt assigned heart healthy diet, RD will follow POs and if remain <75% will attempt to visit pt re: nutrient adequacy. Diet Order: HH Monitoring/Evaluations: POs
[2020-09-01] MEDS: levoFLOXacin 750 MG/150 ML PIGGYBACK 100 MG IV (14:30)
[2020-09-01] MEDS: MELATONIN 3 MG TABLET 18 MG PO (21:23)
[2020-09-01] MEDS: ROPINIROLE 0.25 MG TABLET 0.5 MG PO (21:25)
[2020-09-01] MEDS: SODIUM CHLORIDE 0.9% FLUSH 10 ML IV (21:26)
[2020-09-01] MEDS: DULOXETINE 30 MG CAPSULE 60 MG PO (21:26)
[2020-09-01] MEDS: PRAZOSIN 1 MG CAPSULE PO (21:26)
[2020-09-01] MEDS: ZOLPIDEM 5 MG TABLET 10 MG PO (22:43)
--- NOTE | 2020-09-01 23:33 | PC.NURSE ---
BP 176/98, HR 101. All other vitals stable. Pain ranging from7-9/10. Given PRN dilaudid q 3 with relief. Did not have much of an appetite this shift and barley ate anything. Held insulin due to BG 186, 111. Calls appropriately. Bed low, call light within reach. Urostomy draining clear, yellow urine.
[2020-09-02] VITALS (7 sets, daily range): BP systolic 94–143; BP diastolic 57–87; PULSE 84–110; RESP 16–24; TEMP 36.5–37.2; O2SAT 94–96
[2020-09-02] MEDS: HYDROMORPHONE 2 MG TABLET PO ×3 (02:40→11:55)
[2020-09-02 05:28] LABS: Hematocrit 27.8 % (36-46); Hemoglobin 9.5 g/dL (12.0-16.0); Mean Corpuscular HGB Conc 34.2 % (30-36); Mean Corpuscular Hemoglobin 33.4 PG (26-34); Mean Corpuscular Volume 97.7 fL (80-100); Platelet Count 271 X10^3/uL (150-400); Red Blood Cell Count 2.84 X10^6/uL (4.0-5.2); White Blood Cell Count 11.1 X10^3/uL (4.5-11.0)
[2020-09-02 05:43] LABS: BUN Creatinine Ratio 12.5 (6-22); Blood Urea Nitrogen 5 mg/dL (7-17); Carbon Dioxide 23 mmol/L (22-32); Chloride 109 mmol/L (98-107); Estimated Glomerular Filt Rate > 60.0 mL/min (>60); Glucose 81 mg/dL (70-100); HEMOLYSIS < 15 (0-50); Potassium 3.5 mmol/L (3.4-5.1); Sodium 136 mmol/L (137-145)
[2020-09-02] MEDS: GABAPENTIN 300 MG CAPSULE 900 MG PO (07:59)
[2020-09-02] MEDS: HEPARIN 5,000 UNIT/ML VIAL 5000 UNIT SUBCUT (07:59)
[2020-09-02] MEDS: NICOTINE 7 MG PATCH TOP (07:59)
[2020-09-02] MEDS: DOCUSATE 100 MG CAPSULE PO (08:00)
[2020-09-02] MEDS: CHOLECALCIFEROL (VITAMIN D3) 1,000 UNIT TABLET 1000 UNIT PO (08:00)
[2020-09-02] MEDS: INSULIN GLARGINE 100 UNIT/ML 3ML PEN 8 UNIT SUBCUT (08:48)
--- NOTE | 2020-09-02 08:50 | PM.DS.1 ---
History of Present Illness History of Present Illness Chief complaint: kidney infection Narrative: Ms. Gibbs is a 55W with PMH of frequent UTIs, chronic interstitial cystitis, urostomy, COPD, depression, DM, HL, HTN, chronic pain who is coming in with abdominal and flank pain. She states her pain is like tightness diffusely in abdomen with radiation to back and flanks bilaterally. She has nausea, an episode of vomiting, no diarrhea. No chest pain, cough, or shortness of breath. Of note she was admitted recently to [facility] with similar symptoms but said she left because of panic attacks. She has previously left the hospital against medical advice. In the ER, she had no fever, she was mildly tachycardic in 100s, blood pressure elevated 170s. Labs notable for WBC of 16, 82% PMNs. Na 135, cl 109, co2 16, lactate 1.8. UA shoed positive nitrates, many bacteria. CT Abdomen showed no acute process, but did not prior bladder resection with ileal loop conduit. Mild hydronephrosis and hydroureter was noted which was stable from previously. CT also noted possible patchy alveolar infiltration, though not completely evaluated due to being abdominal imaging. Chest xray was ordered. She was ordered for cefepime and vancomycin in the ED. Discharge Providers Provider Date of admission: 08/31/20 13:22 Discharge Date: 09/02/20 Primary care physician: Fadi Ko DO Consults: 08/31/20 14:08 Consult to Dietitian, Adult Routine Comment: Reason For Exam: low weight Discharge provider: Jose Hackett MD Summary Hospital Course Discharge Diagnosis: 1. Acute pyelonephritis secondary to urostomy 2. Type 2 diabetes, on insulin 3. COPD 4. Hypertension 5. Anxiety and depression 6. Chronic pain Hospital Course: 54WM with PMH COPD, DM, HTN, HL, anxiety, depression, chronic pain who has frequent UTIs with urostomy who presents abdominal pain and high white count found to have a urinary infection. CT of her abdomen showed no acute process. She was also having CVA tenderness. She had urine tested which showed citrobacter which was sensitive to levofloxacin and bactrim. She will be discharged on bactrim as she has multiple QT prolonging medications she takes at home. She did well with antibiotics and her pain was much improved at discharge. Exam Vital Signs (past 8 hours): Oxygen Delivery Method Room Air Oxygen Flow Rate 0 Narrative Exam Narrative: GENERAL: no acute distress HEENT: PERRL, moist mucous membranes NECK: trachea midline, no JVD CARDIOVASCULAR: Regular rate and rhythm without murmurs RESPIRATORY: clear bilaterally with no wheezes, rhonchi, rales ABDOMEN: Soft, minimal tenderness, normal bowel sounds, no organomegaly, urostomy noted on right with slight clear urine BACK: mild CVA tenderness EXTREMITIES: no edema NEUROLOGICAL: Alert and oriented x4. normal speech, moving all extremities with no gross deficits SKIN: Warm, dry, scattered scabbing and scarring on skin PSYCH: pleasant, cooperative Objective Labs Result Diagrams: 09/02/20 04:50 09/02/20 04:50 PFS Medical History Anxiety Closed fracture of left humerus Endometriosis Fibromyalgia Heart palpitations History of asthma History of chronic hypertension History of COPD History of depression History of gastrointestinal ulcer History of kidney stones History of migraine History of panic attacks History of type 2 diabetes mellitus Hyperlipidemia Interstitial cystitis UTI (urinary tract infection) Surgical History History of urostomy S/P appendectomy Status post hysterectomy Status post left rotator cuff repair Family History Mother Diabetes mellitus Lupus Social History household members: spouse Smoking Status: Current every day smoker alcohol intake: current Discharge Plan Discharge Plan Patient Disposition: Home Provider Discharge Comment: Ms. Gibbs came in with abdominal pain. She was found to have infection coming from urostomy. It was found to be a bacteria called citrobacter sensitive to multiple oral medications. She was given a prescription for bactrim as it interacts the least with her current medications. She should follow up with her doctor within one week if possible. Discharge orders & Medications Prescriptions: New hydromorphone 2 mg tablet 2 mg PO Q4-6H PRN (Reason: pain) Qty: 16 RF: 0 sulfamethoxazole-trimethoprim [Bactrim DS] 800-160 mg tablet 1 tab PO Q12H Qty: 14 RF: 0 Continued hydroxyzine HCl 25 MG tablet 50 mg PO BID Qty: 0 RF: 0 albuterol sulfate [Proventil HFA] 90 MCG/PUFF HFA aerosol inhaler 2 puff INH Q4HP PRN (Reason: Shortness Of Breath) Qty: 0 RF: 0 duloxetine 60 MG capsule,delayed release(DR/EC) 60 mg PO BEDTIME Qty: 0 RF: 0 gabapentin [Neurontin] 300 MG capsule 900 mg PO BID Qty: 0 RF: 0 multivitamin [Multiple Vitamins] 1 EACH tablet 1 tab PO DAILY Qty: 0 RF: 0 zolpidem [Ambien] 10 MG tablet 10 mg PO HS PRN (Reason: Insomnia) Qty: 0 RF: 0 lorazepam 0.5 mg tablet 0.5 mg PO BEDTIME RF: 0 methocarbamol 500 mg tablet 1,000 mg PO QID RF: 0 Humulin N NPH Insulin KwikPen 100 unit/mL (3 mL) insulin pen 15 unit SUBCUT BID RF: 0 quetiapine 100 mg Tablet 300 mg PO BEDTIME RF: 0 magnesium glycinate 100 mg Tablet 800 mg PO BEDTIME RF: 0 melatonin 10 mg Tablet 20 mg PO BEDTIME RF: 0 promethazine 25 mg suppository 25 mg TN Q4-6H PRN (Reason: nausea and vomiting) Qty: 12 RF: 0 prazosin 1 mg capsule 1 mg PO BEDTIME RF: 0 vitamin E 400 unit Tablet 400 unit PO DAILY RF: 0 docusate sodium 100 mg Capsule 100 mg PO DAILY RF: 0 cholecalciferol (vitamin D3) [Vitamin D3] 25 mcg (1,000 unit) Tablet 25 mcg PO DAILY RF: 0 ropinirole [Requip] 0.25 mg tablet 0.5 mg PO BEDTIME RF: 0 sumatriptan succinate 25 mg tablet 25 mg PO DIRECTED PRN (Reason: Migraine Headache) RF: 0 omeprazole 20 mg capsule,delayed release(DR/EC) 40 mg PO BID RF: 0 ondansetron 4 mg tablet,disintegrating 1 tab Translingual Q6H PRN (Reason: Nausea) RF: 0 Probiotic 1 tab PO DAILY RF: 0 promethazine 25 mg tablet 25 mg PO TID PRN (Reason: nausea and vomiting) Qty: 10 RF: 0 Follow up/Referrals: Fadi Ko DO [Primary Care Provider] - Visit Report/Discharge Packet Instructions: Trimethoprim/Sulfamethoxazole (Alternative Therapy), DI for Heart Failure, DI for Prescription Opioid Use Discharge Data Primary Care Provider: Fadi Ko VTE Deep Vein Thrombosis/Pulmonary Embolism Present on Admission: No
[2020-09-02] MEDS: SODIUM CHLORIDE 0.9% 1,000 ML 100 ML IV (11:04)
--- NOTE | 2020-09-02 12:10 | PC.NURSE ---
Patient educated about diet, ss of infection, activity, new medications, ss of stroke, and patient and verbalized understanding to all discharge instructions. Patient was told to follow up with primary care provider in one week and was given paper prescriptions for Bactrim and Dilaudid. Patient left facility with all belongings via wheelchair with to private vehicle.
--- NOTE | 2020-09-05 10:47 | PC.NURSE ---
[facility] called and requested discharge summary as pt had arrived to their clinic for follow up care. Faxed to [facility] [phone] for continuity of care.
== END 2020-09-02 12:19 | disposition home or self-care (01) | DRG 699 ==
LOC: ED 13:23 → AC 14:02
PROVIDERS: Nurse Practitioner Family; Admitting Provider Internal Medicine; Emergency Provider Emergency Medicine; PCP Family Medicine; Referring Provider Emergency Medicine; Visit Provider Internal Medicine
DX: T83.518A Infection and inflammatory reaction due to other urinary catheter, initial encounter (principal); N10 Acute pyelonephritis; N30.10 Interstitial cystitis (chronic) without hematuria; Z93.6 Other artificial openings of urinary tract status; E11.9 Type 2 diabetes mellitus without complications; Z79.4 Long term (current) use of insulin; J44.9 Chronic obstructive pulmonary disease, unspecified; E78.5 Hyperlipidemia, unspecified; I10 Essential (primary) hypertension; F32.9 Major depressive disorder, single episode, unspecified; G89.29 Other chronic pain; Z20.822 Contact with and (suspected) exposure to COVID-19; F17.200 Nicotine dependence, unspecified, uncomplicated
CPT/HCPCS: 36415; 71045; 74177; 80048; 80053; 81001; 82962; 83036; 83605; 83690; 85025; 85027; 87040; 87070; 87075; 87077; 87086; 87185; 87186; 87205; 87635; 94640; 94760; 96365; 96375; 96376; 99284; C9803; J0692; J1170; J1644; J1815; J1885; J1956; J2405; Q9967

== ENCOUNTER 2020-09-20 10:36 | Emergency (ER) | payer OTHER, SELFPAY ==
[2020-08-31 14:02] VITALS: BMI 18.4
[2020-09-20] VITALS (15 sets, daily range): BP systolic 119–186; BP diastolic 66–98; PULSE 75–110; RESP 12–32; TEMP 37.4; O2SAT 97–99; BMI 42.0
--- NOTE | 2020-09-20 12:20 | ED_ITS ---
HPI - Abdominal Pain General Chief Complaint: Abdominal Pain Stated Complaint: flank pain/poss kidney infection Time Seen by Provider: 09/20/20 12:06 Source: patient Mode of arrival: Ambulatory Limitations: no limitations History of Present Illness HPI narrative: This is a 55-year-old female with history of chronic interstitial cystitis, frequent UTI and kidney infections with cystostomy and urostomy present. Patient has had multiple episodes of pyelonephritis and sepsis past. Patient was seen most recently on August 31 than when mid for pyelonephritis. Patient states today she has had increasing pain and her abdomen as well as left flank. She has not had any fevers but has felt generally unwell she has had nausea but has not had persistent vomiting. Patient denies any recent chest pain or shortness of breath. She has noted some purulent drainage at the ostomy within the urine. The ostomy site itself has seemed intact without signs of infection. She has not had any black or bloody stools. Patient did complete a course of Bactrim after she was discharged from the hospital. They believe it has been approximately 10 to 14 days since completing antibiotics. 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 patient has not had any additional antibiotics since she completed her last course. She has not had any other new medication changes. Related Data Home Medications Medication Instructions Recorded Confirmed albuterol sulfate [Proventil HFA] 2 puff INH Q4HP PRN #0 01/08/13 08/31/20 hydroxyzine HCl 50 mg PO BID #0 01/08/13 08/31/20 duloxetine 60 mg PO BEDTIME #0 07/04/17 08/31/20 gabapentin [Neurontin] 900 mg PO BID #0 07/04/17 08/31/20 multivitamin [Multiple Vitamins] 1 tab PO DAILY #0 07/04/17 08/31/20 zolpidem [Ambien] 10 mg PO HS PRN #0 07/04/17 08/31/20 Probiotic 1 tab PO DAILY 09/26/17 08/31/20 omeprazole 40 mg PO BID 09/26/17 08/31/20 ondansetron 1 tab TRANSLINGUAL Q6H PRN 09/26/17 08/31/20 lorazepam 0.5 mg PO BEDTIME 05/30/18 08/31/20 Humulin N NPH Insulin KwikPen 15 unit SUBCUT BID 05/17/19 08/31/20 methocarbamol 1,000 mg PO QID 05/17/19 08/31/20 quetiapine 300 mg PO BEDTIME 11/04/19 08/31/20 magnesium glycinate 800 mg PO BEDTIME 12/08/19 08/31/20 melatonin 20 mg PO BEDTIME 12/08/19 08/31/20 cholecalciferol (vitamin D3) 25 mcg PO DAILY 08/31/20 08/31/20 [Vitamin D3] docusate sodium 100 mg PO DAILY 08/31/20 08/31/20 prazosin 1 mg PO BEDTIME 08/31/20 08/31/20 ropinirole [Requip] 0.5 mg PO BEDTIME 08/31/20 08/31/20 sumatriptan succinate 25 mg PO DIRECTED PRN 08/31/20 08/31/20 vitamin E 400 unit PO DAILY 08/31/20 08/31/20 Previous Rx's Medication Instructions Recorded promethazine 25 mg PO TID PRN #10 tab 04/16/20 promethazine 25 mg RI Q4-6H PRN #12 ea 04/19/20 hydromorphone 2 mg PO Q4-6H PRN #16 tab 09/02/20 sulfamethoxazole-trimethoprim 1 tab PO Q12H #14 tab 09/02/20 [Bactrim DS] ciprofloxacin HCl 500 mg PO Q12H #20 tab 09/20/20 oxycodone 5 mg PO Q4H PRN #14 tab 09/20/20 Allergies Allergy/AdvReac Type Severity Reaction Status Date / Time mupirocin Allergy Unknown Verified 06/17/20 11:28 naproxen Allergy Unknown Verified 06/17/20 11:28 Penicillins Allergy Unknown SINCE Verified 06/17/20 11:28 CHILDHOOD droperidol AdvReac Unknown Verified 06/17/20 11:28 fenofibrate [FENOFIBRATE] AdvReac Unknown Verified 06/17/20 11:28 ibuprofen AdvReac Unknown NAUSEA Verified 06/17/20 11:28 metformin [METFORMIN] AdvReac Unknown Verified 06/17/20 11:28 metoclopramide AdvReac Unknown BECAME Verified 06/17/20 11:28 JITTERY AND ANXIOUS nitrofurantoin AdvReac Unknown NAUSEA Verified 06/17/20 11:28 Review of Systems Review of Systems ROS Unobtainable: All systems reviewed & are unremarkable except as noted in HPI and below Patient History Medical History Anxiety Closed fracture of left humerus Endometriosis Fibromyalgia Heart palpitations History of asthma History of chronic hypertension History of COPD History of depression History of gastrointestinal ulcer History of kidney stones History of migraine History of panic attacks History of type 2 diabetes mellitus Hyperlipidemia Interstitial cystitis UTI (urinary tract infection) Surgical History History of urostomy S/P appendectomy Status post hysterectomy Status post left rotator cuff repair Family History Mother Diabetes mellitus Lupus Social History household members: spouse Smoking Status: Current every day smoker alcohol intake: current Smoking Status: Current every day smoker tobacco type: cigarettes alcohol intake frequency: holidays/special occasions only Substance Use Type: former substance user Exam Narrative Exam Narrative: GENERAL: Alert and oriented x three Female in moderate distress. Patient does appear to feel unwell today. HEENT: Head normocephalic, atraumatic, EOMI, pupils reactive, face symmetric, moist mucous membranes NECK: Supple, full range of motion CARDIOVASCULAR: Regular rate and rhythm without murmurs, rubs or gallops. No JVD. No edema bilateral lower extremities. RESPIRATORY: Breath sounds equal bilaterally, no wheezes rales or rhonchi. No tachypnea accessory muscle use. ABDOMEN: Soft, Generalized tenderness. Normoactive bowel sounds all 4 quadrants. No guarding or rebound, rigidity, no mass : positive for right CVA tenderness, patient has urostomy draining on the right mid abdomen there does appear to be a small amount of pus in the surroundi ng area with urine in the bag. There is no warmth, erythema or skin changes surrounding the ostomy site. EXTREMITIES: Normal range of motion, no clubbing or edema. Neurovascularly intact NEUROLOGICAL: Cranial nerves II through XII grossly intact. Moving all extremities SKIN: Warm, dry, no petechiae, no rashes or lesions. Initial Vital Signs Initial Vital Signs: Vital Signs Temperature 99.4 F 09/20/20 10:49 Pulse Rate 110 H 09/20/20 10:49 Respiratory Rate 18 09/20/20 10:49 Blood Pressure 119/66 09/20/20 10:49 Pulse Oximetry 98 09/20/20 10:49 Course Orders Ordered: Discontinued Medications Hydromorphone HCl (Hydromorphone 1 Mg Inj) 1 mg IV NOW ONE Stop: 09/20/20 12:32 Last Admin: 09/20/20 12:57 Dose: 1 mg Documented by: NOHEMY Hydromorphone HCl (Hydromorphone 1 Mg Inj) 1 mg IV NOW ONE Stop: 09/20/20 14:23 Last Admin: 09/20/20 14:29 Dose: 1 mg Documented by: ANDRES Sodium Chloride (Normal Saline 0.9%) 1,000 mls @ 1,000 mls/hr IV BOLUS ONE Stop: 09/20/20 13:05 Last Infusion: 09/20/20 14:29 Dose: 0 mls/hr Documented by: Admin: 09/20/20 12:58 Dose: 1,000 mls/hr Documented by: NOHEMY Vancomycin HCl/Dextrose (Vancomycin) 2,000 mg in 400 mls @ 200 mls/hr IV NOW ONE Stop: 09/20/20 14:34 Last Infusion: 09/20/20 16:47 Dose: 0 mls/hr Documented by: Admin: 09/20/20 13:30 Dose: 200 mls/hr Documented by: ANDRES Ondansetron HCl (Ondansetron 4 Mg/2 Ml Inj) 4 mg IV NOW ONE Stop: 09/20/20 12:32 Last Admin: 09/20/20 12:57 Dose: 4 mg Documented by: NOHEMY Reevaluation(s) Reevaluation #1: Discussed with patient and spouse at bedside. Patient does not appear to be septic today but her urine is suspicious for infection. Prior cultures have a timed showed resistance with some of the bacteria that is growing out to be sensitive to only IV antibiotics but not consistently with e very urine culture. we discussed keeping patient for observation and IV antibiotics but she prefers to return home at this time. Will cover her with oral which she has had sensitivities to for some of her cultures with strict return precautions. Patient states she has plenty of antiemetics at home, she does ask for a short course of pain medication for home. Time: 16:07 Vital Signs Vital signs: Vital Signs - 8 hr 09/20/20 10:49 09/20/20 12:27 09/20/20 12:30 Temperature 99.4 F Pulse Rate 110 H 92 H 88 Respiratory Rate 18 22 21 Blood Pressure 119/66 151/68 H Pulse Oximetry 98 98 97 09/20/20 12:55 09/20/20 12:56 09/20/20 13:00 Temperature Pulse Rate 91 H 90 84 Respiratory Rate 32 H 23 Blood Pressure 178/98 H 148/82 H Pulse Oximetry 98 97 97 09/20/20 13:30 09/20/20 14:00 09/20/20 14:26 Temperature Pulse Rate 82 82 82 Respiratory Rate 25 H 15 31 H Blood Pressure 153/84 H 167/89 H 186/98 H Pulse Oximetry 97 98 99 09/20/20 14:30 09/20/20 15:00 09/20/20 15:29 Temperature Pulse Rate 80 80 79 Respiratory Rate 22 13 Blood Pressure 161/92 H 177/94 H Pulse Oximetry 99 97 97 09/20/20 15:30 Temperature Pulse Rate Respiratory Rate Blood Pressure 158/91 H Pulse Oximetry MDM - Abdominal Pain Lab Data Attestation: I reviewed the patient's lab results. Result diagrams: 09/20/20 12:45 09/20/20 12:45 Labs: Lab Results 09/20/20 09/20/20 09/20/20 Range/Units 12:18 12:19 12:45 WBC 7.8 (4.5-11.0) X10^3/uL RBC 3.52 L (4.0-5.2) X10^6/uL Hgb 11.4 L (12.0-16.0) g/dL Hct 34.4 L (36-46) % MCV 97.7 (80-100) fL MCH 32.5 (26-34) PG MCHC 33.3 (30-36) % RDW 14.9 H (11.6-14.8) % Plt Count 312 (150-400) X10^3/uL Neut % (Auto) 55.7 (50-75) % Lymph % (Auto) 36.8 (25-40) % [place] % (Auto) 6.1 (3-14) % Eos % (Auto) 0.5 L (2-4) % Baso % (Auto) 0.9 (0-2) % Neut # (Auto) 4400 (9365-4840) /uL Lymph # (Auto) 2900 (4463-9715) /uL [place] # (Auto) 500 (0-900) /uL Eos # (Auto) 0 (0-450) /uL Baso # (Auto) 100 (0-100) /uL Sodium (137-145) mmol/L Potassium (3.4-5.1) mmol/L Chloride (98-107) mmol/L Carbon Dioxide (22-32) mmol/L BUN (7-17) mg/dL Creatinine (0.52-1.04) mg/dL Estimated GFR (>60) mL/min BUN/Creatinine Ratio (6-22) Glucose (70-100) mg/dL Lactate (0.7-2.1) mmol/L Calcium (8.4-10.2) mg/dL Total Bilirubin (0.2-1.3) mg/dL AST (14-36) IU/L ALT (<35) IU/L Alkaline Phosphatase (38-126) U/L Total Protein (6.3-8.2) g/dL Albumin (3.5-5.0) g/dL Globulin (1.7-4.1) g/dL Albumin/Globulin Ratio (1.0-2.8) Lipase (23-300) U/L Procalcitonin (<0.5) ng/mL Urine Color Cancelled Urine Appearance Cancelled Urine pH Cancelled Ur Specific [place] Cancelled Urine Protein Cancelled Urine Glucose (UA) Cancelled Urine Ketones Cancelled Urine Occult Blood Cancelled Urine Nitrate Cancelled Urine Bilirubin Cancelled Urine Urobilinogen Cancelled Ur Leukocyte Esterase Cancelled Urine RBC Cancelled Urine WBC Cancelled Ur Squamous Epith Cells Cancelled Ur Transition Epith Cell Cancelled Ur Renal Epithelial Cell Cancelled Calcium Oxalate Crystal Cancelled Uric Acid Crystals Cancelled Triple Phos Crystals Cancelled Other Crystals Cancelled Amorphous Sediment Cancelled Urine Bacteria Cancelled Hyaline Casts Cancelled Granular Casts Cancelled RBC Casts Cancelled WBC Casts Cancelled Other Casts Cancelled Urine Mucus Cancelled Urine Trichomonas Cancelled Urine Yeast Cancelled Urine Sperm Cancelled Ur Culture Indicated? Cancelled Micro UA Comment Cancelled SARS-CoV-2 (PCR) Negative (Negative) 09/20/20 09/20/20 09/20/20 Range/Units 12:45 12:45 13:24 WBC (4.5-11.0) X10^3/uL RBC (4.0-5.2) X10^6/uL Hgb (12.0-16.0) g/dL Hct (36-46) % MCV (80-100) fL MCH (26-34) PG MCHC (30-36) % RDW (11.6-14.8) % Plt Count (150-400) X10^3/uL Neut % (Auto) (50-75) % Lymph % (Auto) (25-40) % [place] % (Auto) (3-14) % Eos % (Auto) (2-4) % Baso % (Auto) (0-2) % Neut # (Auto) (7137-0256) /uL Lymph # (Auto) (1763-7721) /uL [place] # (Auto) (0-900) /uL Eos # (Auto) (0-450) /uL Baso # (Auto) (0-100) /uL Sodium 138 (137-145) mmol/L Potassium 4.2 (3.4-5.1) mmol/L Chloride 111 H (98-107) mmol/L Carbon Dioxide 22 (22-32) mmol/L BUN 9 (7-17) mg/dL Creatinine 0.44 L (0.52-1.04) mg/dL Estimated GFR > 60.0 (>60) mL/min BUN/Creatinine Ratio 20.5 (6-22) Glucose 126 H (70-100) mg/dL Lactate 1.6 (0.7-2.1) mmol/L Calcium 9.2 (8.4-10.2) mg/dL Total Bilirubin 0.2 (0.2-1.3) mg/dL AST 19 (14-36) IU/L ALT 21 (<35) IU/L Alkaline Phosphatase 183 H (38-126) U/L Total Protein 6.8 (6.3-8.2) g/dL Albumin 3.3 L (3.5-5.0) g/dL Globulin 3.5 (1.7-4.1) g/dL Albumin/Globulin Ratio 0.9 L (1.0-2.8) Lipase 10 L (23-300) U/L Procalcitonin 0.04 (<0.5) ng/mL Urine Color Urine Appearance Urine pH Ur Specific [place]utton Urine Protein Urine Glucose (UA) Urine Ketones Urine Occult Blood Urine Nitrate Urine Bilirubin Urine Urobilinogen Ur Leukocyte Esterase Urine RBC 1-5/hpf Urine WBC 5-10/hpf H Ur Squamous Epith Cells None seen Ur Transition Epith Cell Ur Renal Epithelial Cell Calcium Oxalate Crystal Uric Acid Crystals Triple Phos Crystals Other Crystals Amorphous Sediment 2+ Urine Bacteria Many (>30) H Hyaline Casts Granular Casts RBC Casts WBC Casts Other Casts Urine Mucus Urine Trichomonas Urine Yeast Urine Sperm Ur Culture Indicated? Specimen cultured Micro UA Comment SARS-CoV-2 (PCR) (Negative) Point of care testing: Urine Dip Bedside Urine Glucose Negative Bedside Urine Bilirubin + 1 Bedside Urine Ketone - Negative Urine Specific [place] 1.020 Bedside Urine Occult Blood - Negative Bedside Urine pH 6.5 Bedside Urine Protein + 30 Bedside Urine Urobilinogen - Negative Bedside Urine Nitrite + Positive Bedside Urine Leukocytes - Negative Esterase Imaging Data CT scan - abdomen/pelvis: Radiologist's Impression: [address] [id number] Scan ReportSigned Patient: Melvi Gibbs [facility]#: [id number]: 1965Acct:[id number]/Sex: 55 / FDate of Service: 09/20/20Loc: EDAccession Number: [id number] Procedure: CT abdomen pelvis w con Ordering Provider: Xuan Garcia D.O. PROCEDURE: CT ABDOMEN PELVIS W CON INDICATIONS: abd/flank pain, + urostomy, concern infection TECHNIQUE: After the administration of intravenous contrast, axial sections acquired from the lung bases to the pubic symphysis. Coronal and sagittal reformats were performed. F or radiation dose reduction, the following was used: automated exposure control, adjustment of mA and/or kV according to patient size. COMPARISON: [facility], CT, CT ABDOMEN PELVIS W CON, 08/31/2020, 12:11. FINDINGS: Image quality: Excellent. Lung bases: Resolution of patchy bibasilar ground-glass opacities. Heart: No significant findings. ABDOMEN: Liver: Mild hepatomegaly. A tiny hypervascular area near the dome of the liver measuring approximately 6 mm on image 8/2 likely represents hemangioma. No suspicious masses. Gallbladder: Surgically resected. Biliary ducts: Stable post cholecystectomy dilatation of the biliary tree. Pancreas: Unremarkable. Spleen: Unremarkable. Adrenal Glands: Unremarkable. Kidneys and Ureters: Kidneys both enhance symmetrically. Mild bilateral hydronephrosis is unchanged, and moderate dilatation of both ureters is unchanged, a common finding post bladder resection and ileal conduit. Stomach and Bowel: Stomach, small bowel loops, and colon are unremarkable. Peritoneum: No abnormal intraperitoneal fluid. No free air. Ventral Wall: No hernias. Abdominal Nodes: No retroperitoneal or mesenteric adenopathy by size criteria. Vessels: Aorta and inferior vena cava are normal in size. Diffuse athero sclerotic calcifications. Question bilateral common iliac artery hemodynamically significant stenoses. PELVIS: Pelvic Organs: Unremarkable. Bladder: Surgically resected Pelvic Nodes: No enlarged lymph nodes. Miscellaneous: No hernias are seen. Bones: Unremarkable. IMPRESSION: 1. Remote cystectomy and ileal conduit with chronic mild hydronephrosis and moderate hydroureter. Appearance is unchanged, and is commonly seen post cystectomy and ileal conduit. 2. Peripheral vascular disease with question of hemodynamically significant bilateral common iliac artery stenosis. 3. Resolution of bibasilar pulmonary infiltrates. Dictated by: Ayush Partida M.D. on 09/20/2020 at 13:34 Approved by: Ayush Partida M.D. on 09/20/2020 at 13:42 MDM Narrative Medical decision making narrative: Is a 55-year-old female with possible pyelonephritis. Patient's urine does have nitrates, she is afebrile here in the department. Does not appear to have sepsis, She had elevated heart rate in the 90s. Her white count is improved from last visit and is in normal range today. Procalcitonin is negative it has been quite elevated past. renal function appears stable with mild electrolyte abnormality. Glucose is 126 today. Urine was cultured and is currently pending. Prior urine cultures were reviewed, patient has intermittently grown Enterococcus faecalis but more frequently CItrobacter freundii on her last cultures dating back into May of 2019. Discussed with patient her Enterococcus is only sensitive to IV antibiotics unclear if this will grow out today or not, the Citrobacter has sensitivities to oral antibiotics. Discussed with patient and family at bedside if she would like me to contact hospitalist for possible observation verses weeding urine culture and starting oral antibiotics at this time. Patient elects to return home, we did discuss that if urine culture is positive and shows necessity dalal of IV antibiotics she would be contacted to have her return. Patient states she has plenty of antinausea medication at home. She does request something for pain control at home and has tolerated oxycodone in the past. all questions were answered, patient was encouraged to return if she is having any worsening symptoms. Discharge Plan Departure Patient Disposition: Home Clinical Impression: Pyelonephritis Activity Restrictions/Additional Instructions: Return at any time if you are having worsening symptoms. Your cultures from your last visit had two types of bacteria, One was sensitive to oral antibiotics. The 2nd was only sensitive to IV antibiotics. Uour urine culture today is currently pending. Take oral antibiotics until completely gone. May take pain medication as prescribed. This medication can make you sleepy do not drive, perform hazardous activities or make any major decisions while taking it. This medication will make you constipated please take a stool softener once to twice daily until stools are soft and regular. Return if you are having worsening symptoms, fevers, persistent vomiting, rapidly worsening pain, decrease in urine output or other new or worsening changes. Prescriptions: New ciprofloxacin HCl 500 mg tablet 500 mg PO Q12H Qty: 20 RF: 0 oxycodone 5 mg tablet 5 mg PO Q4H PRN (Reason: pain) Qty: 14 RF: 0 No Action hydroxyzine HCl 25 MG tablet 50 mg PO BID Qty: 0 RF: 0 albuterol sulfate [Proventil HFA] 90 MCG/PUFF HFA aerosol inhaler 2 puff INH Q4HP PRN (Reason: Shortness Of Breath) Qty: 0 RF: 0 duloxetine 60 MG capsule,delayed release(DR/EC) 60 mg PO BEDTIME Qty: 0 RF: 0 gabapentin [Neurontin] 300 MG capsule 900 mg PO BID Qty: 0 RF: 0 multivitamin [Multiple Vitamins] 1 EACH tablet 1 tab PO DAILY Qty: 0 RF: 0 zolpidem [Ambien] 10 MG tablet 10 mg PO HS PRN (Reason: Insomnia) Qty: 0 RF: 0 lorazepam 0.5 mg tablet 0.5 mg PO BEDTIME RF: 0 methocarbamol 500 mg tablet 1,000 mg PO QID RF: 0 Humulin N NPH Insulin KwikPen 100 unit/mL (3 mL) insulin pen 15 unit SUBCUT BID RF: 0 quetiapine 100 mg Tablet 300 mg PO BEDTIME RF: 0 magnesium glycinate 100 mg Tablet 800 mg PO BEDTIME RF: 0 melatonin 10 mg Tablet 20 mg PO BEDTIME RF: 0 promethazine 25 mg suppository 25 mg RI Q4-6H PRN (Reason: nausea and vomiting) Qty: 12 RF: 0 prazosin 1 mg capsule 1 mg PO BEDTIME RF: 0 vitamin E 400 unit Tablet 400 unit PO DAILY RF: 0 docusate sodium 100 mg Capsule 100 mg PO DAILY RF: 0 cholecalciferol (vitamin D3) [Vitamin D3] 25 mcg (1,000 unit) Tablet 25 mcg PO DAILY RF: 0 ropinirole [Requip] 0.25 mg tablet 0.5 mg PO BEDTIME RF: 0 sumatriptan succinate 25 mg tablet 25 mg PO DIRECTED PRN (Reason: Migraine Headache) RF: 0 hydromorphone 2 mg tablet 2 mg PO Q4-6H PRN (Reason: pain) Qty: 16 RF: 0 sulfamethoxazole-trimethoprim [Bactrim DS] 800-160 mg tablet 1 tab PO Q12H Qty: 14 RF: 0 omeprazole 20 mg capsule,delayed release(DR/EC) 40 mg PO BID RF: 0 ondansetron 4 mg tablet,disintegrating 1 tab Translingual Q6H PRN (Reason: Nausea) RF: 0 Probiotic 1 tab PO DAILY RF: 0 promethazine 25 mg tablet 25 mg PO TID PRN (Reason: nausea and vomiting) Qty: 10 RF: 0 Referrals: Fadi Ko DO [Primary Care Provider] -
[2020-09-20] MEDS: ONDANSETRON 4 MG/2 ML INJ IV (12:57)
[2020-09-20] MEDS: HYDROMORPHONE 1 MG INJ IV ×2 (12:57→14:29)
[2020-09-20] MEDS: SODIUM CHLORIDE 0.9% 1,000 ML 1000 ML IV (12:58)
[2020-09-20 13:09] LABS: Add Manual Diff / Slide Review NO; Basophils Absolute Auto 100 /uL (0-100); Basophils Percent Auto 0.9 % (0-2); Eosinophils Absolute Auto 0 /uL (0-450); Eosinophils Percent Auto 0.5 % (2-4); Hematocrit 34.4 % (36-46); Hemoglobin 11.4 g/dL (12.0-16.0); Lymphocytes Absolute Auto 2900 /uL (1100-4500); Lymphocytes Percent Auto 36.8 % (25-40); Mean Corpuscular HGB Conc 33.3 % (30-36); Mean Corpuscular Hemoglobin 32.5 PG (26-34); Mean Corpuscular Volume 97.7 fL (80-100); Monocytes Absolute Auto 500 /uL (0-900); Monocytes Percent Auto 6.1 % (3-14); Neutrophils Absolute Auto 4400 /uL (1500-7000); Neutrophils Percent Auto 55.7 % (50-75); Platelet Count 312 X10^3/uL (150-400); Red Blood Cell Count 3.52 X10^6/uL (4.0-5.2); Red Cell Distribution Width 14.9 % (11.6-14.8); White Blood Cell Count 7.8 X10^3/uL (4.5-11.0)
[2020-09-20] MEDS: VANCOMYCIN 2,000 MG/400 ML PIGGYBACK 200 MG IV (13:30)
[2020-09-20 13:38] LABS: Amorphous Sediment Urine 2+; Bacteria Urine Many (>30); RBC Urine 1-5/HPF (0-5/HPF); Squamous Epithelial Cell Urine None Seen (0-5/HPF); WBC Urine 5-10/HPF (0-5/HPF)
[2020-09-20 13:39] LABS: Culture Indicated Urine Specimen Cultured
[2020-09-20 13:49] LABS: COVID19 - ADMIT (NP swab/PCR) Negative (Negative)
[2020-09-20 14:00] LABS: Alanine Aminotransferase 21 IU/L (<35); Albumin 3.3 g/dL (3.5-5.0); Albumin Globulin Ratio 0.9 (1.0-2.8); Alkaline Phosphatase 183 U/L (38-126); Aspartate Aminotransferase 19 IU/L (14-36); BUN Creatinine Ratio 20.5 (6-22); Bilirubin Total 0.2 mg/dL (0.2-1.3); Blood Urea Nitrogen 9 mg/dL (7-17); Calcium 9.2 mg/dL (8.4-10.2); Carbon Dioxide 22 mmol/L (22-32); Chloride 111 mmol/L (98-107); Estimated Glomerular Filt Rate > 60.0 mL/min (>60); Globulin 3.5 g/dL (1.7-4.1); Glucose 126 mg/dL (70-100); HEMOLYSIS < 15 (0-50); Lipase 10 U/L (23-300); Potassium 4.2 mmol/L (3.4-5.1); Sodium 138 mmol/L (137-145); Total Protein 6.8 g/dL (6.3-8.2)
[2020-09-20 14:01] LABS: Lactate (Lactic Acid) 1.6 mmol/L (0.7-2.1)
[2020-09-20 14:17] LABS: Procalcitonin 0.04 ng/mL (<0.5)
== END 2020-09-20 16:52 | disposition home or self-care (01) ==
PROVIDERS: Emergency Provider Emergency Medicine; PCP Family Medicine
DX: N12 Tubulo-interstitial nephritis, not specified as acute or chronic (principal); R11.0 Nausea; Z20.822 Contact with and (suspected) exposure to COVID-19
CPT/HCPCS: 74177; 80053; 81003; 81015; 83605; 83690; 84145; 85025; 87040; 87077; 87086; 87186; 87635; 96365; 96366; 96375; 96376; 99284; C9803; J1170; J2405; Q9967

== ENCOUNTER 2020-09-28 07:49 | Inpatient (IN) | payer OTHER, SELFPAY ==
[2020-08-31 14:02] VITALS: BMI 18.4
[2020-09-28] VITALS (14 sets, daily range): BP systolic 114–184; BP diastolic 60–109; PULSE 82–104; RESP 16–22; TEMP 36.4–37.1; O2SAT 94–100; BMI 18.3
--- NOTE | 2020-09-28 08:16 | ED.FEMALEGU ---
HPI - Female Genitourinary General Chief complaint: Urogenital-Female Stated complaint: KIDNEY INFECTION Time Seen by Provider: 09/28/20 07:58 Source: patient Mode of arrival: Family Vehicle Limitations: no limitations History of Present Illness HPI Narrative: Patient is a 55-year-old female with history of chronic interstitial cystitis frequent UTIs kidney infections and cystostomy in urostomy present. She was recently seen and evaluated here on 09/20/2020 culture grew multi-drug resistant citrobacter Pantoea and entercoccus. She was placed on Cipro and later Macrobid was added. However the pharmacist told her to stop taking Cipro although she was almost done and start taking Macrobid. Macrobid does not seem to be agreeing with her she feels nauseous and vomiting. states that she has had night sweats and been chilled at times. She is complaining of pain in her kidney. She is currently afebrile. Related Data Home Medications Medication Instructions Recorded Confirmed albuterol sulfate 90 mcg/actuation 2 puff INH Q4HP PRN #0 01/08/13 08/31/20 aerosol inhaler (Proventil HFA) hydroxyzine HCl 25 mg tablet 50 mg PO BID #0 01/08/13 08/31/20 duloxetine 60 mg capsule,delayed 60 mg PO BEDTIME #0 07/04/17 08/31/20 release gabapentin 300 mg capsule 900 mg PO BID #0 07/04/17 08/31/20 (Neurontin) multivitamin (Multiple Vitamins) 1 tab PO DAILY #0 07/04/17 08/31/20 zolpidem 10 mg tablet (Ambien) 10 mg PO HS PRN #0 07/04/17 08/31/20 Probiotic 1 tab PO DAILY 09/26/17 08/31/20 omeprazole 20 mg capsule,delayed 40 mg PO BID 09/26/17 08/31/20 release ondansetron 4 mg disintegrating 1 tab TRANSLINGUAL Q6H PRN 09/26/17 08/31/20 tablet lorazepam 0.5 mg tablet 0.5 mg PO BEDTIME 05/30/18 08/31/20 insulin NPH isoph U-100 human 100 15 unit SUBCUT BID 05/17/19 08/31/20 unit/mL (3 mL) subcutaneous pen (Humulin N NPH U-100 Insulin KwikPen) methocarbamol 500 mg tablet 1,000 mg PO QID 05/17/19 08/31/20 quetiapine 100 mg tablet 300 mg PO BEDTIME 11/04/19 08/31/20 magnesium glycinate 100 mg tablet 800 mg PO BEDTIME 12/08/19 08/31/20 melatonin 10 mg tablet 20 mg PO BEDTIME 12/08/19 08/31/20 cholecalciferol (vitamin D3) 25 25 mcg PO DAILY 08/31/20 08/31/20 mcg (1,000 unit) tablet (Vitamin D3) docusate sodium 100 mg capsule 100 mg PO DAILY 08/31/20 08/31/20 prazosin 1 mg capsule 1 mg PO BEDTIME 08/31/20 08/31/20 ropinirole 0.25 mg tablet (Requip) 0.5 mg PO BEDTIME 08/31/20 08/31/20 sumatriptan succinate 25 mg tablet 25 mg PO DIRECTED PRN 08/31/20 08/31/20 vitamin E 400 unit tablet 400 unit PO DAILY 08/31/20 08/31/20 prochlorperazine maleate 10 mg 10 mg PO Q6H PRN 09/28/20 09/28/20 tablet Previous Rx's Medication Instructions Recorded promethazine 25 mg tablet 25 mg PO TID PRN #10 tab 04/16/20 promethazine 25 mg rectal 25 mg IN Q4-6H PRN #12 ea 04/19/20 suppository Allergies Allergy/AdvReac Type Severity Reaction Status Date / Time mupirocin Allergy Unknown Verified 09/28/20 08:09 naproxen Allergy Unknown Verified 09/28/20 08:09 Penicillins Allergy Unknown SINCE Verified 09/28/20 08:09 CHILDHOOD droperidol AdvReac Unknown Verified 09/28/20 08:09 fenofibrate [FENOFIBRATE] AdvReac Unknown Verified 09/28/20 08:09 ibuprofen AdvReac Unknown NAUSEA Verified 09/28/20 08:09 metformin [METFORMIN] AdvReac Unknown Verified 09/28/20 08:09 metoclopramide AdvReac Unknown BECAME Verified 09/28/20 08:09 JITTERY AND ANXIOUS nitrofurantoin AdvReac Unknown NAUSEA Verified 09/28/20 08:09 Review of Systems Review of Systems ROS Unobtainable: All systems reviewed & are unremarkable except as noted in HPI and below Constitutional Constitutional: Reports body ache(s), Reports chills and Reports night sweats Eyes Eyes: Denies change in vision ENT Ears, Nose, Mouth, and Throat: Denies dizziness and Denies sore throat Cardiovascular Cardiovascular: Denies chest pain, Denies syncope and Denies irregular heart rhythm Respiratory Respiratory: Denies cough Gastrointestinal Gastrointestinal: Denies abdominal pain, Denies diarrhea and Reports nausea Genitourinary Genitourinary: Reports as per HPI Musculoskeletal Musculoskeletal: Reports myalgias Integumentary/Breasts Skin/Breast: Denies rash and Denies skin pain Neurologic Neurologic: Denies dizziness and Denies syncope Psychiatric Psychiatric: Reports anxiety Patient History Medical History (Updated 09/28/20 @ 10:19 by Vivi Montoya DO) Anxiety Closed fracture of left humerus Endometriosis Fibromyalgia Heart palpitations History of asthma History of chronic hypertension History of COPD History of depression History of gastrointestinal ulcer History of kidney stones History of migraine History of panic attacks History of type 2 diabetes mellitus Hyperlipidemia Interstitial cystitis UTI (urinary tract infection) Surgical History History of urostomy S/P appendectomy Status post hysterectomy Status post left rotator cuff repair Family History Mother Diabetes mellitus Lupus tobacco type: cigarettes alcohol intake frequency: holidays/special occasions only Substance Use Type: former substance user Exam Initial Vital Signs Initial Vital Signs: Vital Signs Pulse Rate 101 H 09/28/20 08:03 Pulse Oximetry 97 09/28/20 08:03 GENERAL: Alert 55-year-old female appears chronically ill anxious tearful HEENT: Head atraumatic,EOMI, pupils reactive, face symmetric, moist mucous membranes CARDIOVASCULAR: Regular rate and rhythm without murmurs, rubs or gallops. RESPIRATORY: Breath sounds equal bilaterally, no wheezes rales or rhonchi. ABDOMEN: Soft, nontender. Normoactive bowel sounds all 4 quadrants. No guarding or rebound : Urostomy present, his urine with sediment, right flank pain EXTREMITIES: Normal range of motion, no clubbing or edema. Neurovascularly intact NEUROLOGICAL: Alert and oriented x4.Normal gait and speech. SKIN: Warm, dry, no laceration, no petechiae, no rashes or lesions. Course Orders Ordered: ED Orders 09/28/20 08:30 Complete Blood Count AUTO DIFF Stat Comprehensive Metabolic Panel Stat Lactate (Lactic Acid) Stat Procalcitonin Stat 09/28/20 09:05 Blood Culture Stat 09/28/20 09:36 COVID19 - ADMIT (ASSOCIATE MEDICAL DIRECTOR swab/PCR) Stat Urinalysis and Microscopic Stat Albuterol (Albuterol 2.5 Mg/3 Ml Neb (Adult)) 2.5 mg INH Q4H PRN PRN Reason: Shortness Of Breath Duloxetine HCl (Duloxetine 30 Mg Capsule) 60 mg PO BEDTIME ISSA Enoxaparin Sodium (Enoxaparin 40 Mg/0.4 Ml Syringe) 40 mg SUBCUT DAILY ISSA Gabapentin (Gabapentin 300 Mg Capsule) 900 mg PO BID ISSA Hydroxyzine Pamoate (Hydroxyzine Pamoate 25 Mg Capsule) 50 mg PO BID ISSA Sodium Chloride (Normal Saline 0.9%) 1,000 mls @ 200 mls/hr IV CONT ISSA Last Infusion: 09/28/20 11:36 Dose: 0 mls/hr Documented by: Infusion: 09/28/20 11:12 Dose: 0 mls/hr Documented by: Admin: 09/28/20 09:30 Dose: 200 mls/hr Documented by: RONALD Levofloxacin (Levaquin) 750 mg in 150 mls @ 100 mls/hr IV NOW ISSA Last Infusion: 09/28/20 11:35 Dose: 100 mls/hr Documented by: Infusion: 09/28/20 11:12 Dose: 0 mls/hr Documented by: Admin: 09/28/20 10:23 Dose: 100 mls/hr Documented by: RONALD Sodium Chloride (Normal Saline 0.9%) 1,000 mls @ 100 mls/hr IV CONT ISSA Last Admin: 09/28/20 11:35 Dose: 100 mls/hr Documented by: GREGORIO Linezolid (Zyvox) 600 mg in 300 mls @ 600 mls/hr IV Q12H ISSA Levofloxacin (Levaquin) 500 mg in 100 mls @ 100 mls/hr IV Q24H ISSA Insulin Human NPH (Insulin Nph 100 Unit/Ml Vial) 15 unit SUBCUT BID ISSA Lorazepam (Lorazepam 0.5 Mg Tablet) 0.5 mg PO BEDTIME ISSA Melatonin (Melatonin 3 Mg Tablet) 18 mg PO BEDTIME ISSA Multivitamins (Multivitamin 1 Tablet) 1 tab PO DAILY ISSA Naloxone HCl (Naloxone 0.4 Mg/Ml Vial) 0.2 mg IV Q2MIN PRN PRN Reason: Opiate Reversal Ondansetron HCl (Ondansetron 4 Mg Odt) 4 mg SL Q6H PRN PRN Reason: Nausea Last Admin: 09/28/20 11:37 Dose: 4 mg Documented by: GREGORIO Oxycodone HCl (Oxycodone Ir 5 Mg Tablet) 5 mg PO Q4H PRN PRN Reason: pain Last Admin: 09/28/20 11:37 Dose: 5 mg Documented by: GREGORIO Pantoprazole Sodium (Pantoprazole Dr 40 Mg Tablet) 40 mg PO BID ISSA Prazosin HCl (Prazosin 1 Mg Capsule) 1 mg PO BEDTIME ISSA Promethazine HCl (Promethazine 25 Mg Supp) 25 mg IN Q4H PRN PRN Reason: nausea and vomiting Quetiapine Fumarate (Quetiapine 100 Mg Tablet) 300 mg PO BEDTIME ISSA Ropinirole HCl (Ropinirole 0.25 Mg Tablet) 0.5 mg PO BEDTIME ISSA Discontinued Medications Hydromorphone HCl (Hydromorphone 1 Mg Inj) 1 mg IV NOW ONE Stop: 09/28/20 10:33 Last Admin: 09/28/20 10:35 Dose: 1 mg Documented by: RONALD Linezolid (Zyvox) 600 mg in 300 mls @ 600 mls/hr IV NOW ONE Stop: 09/28/20 08:56 Last Infusion: 09/28/20 10:05 Dose: 0 mls/hr Documented by: Admin: 09/28/20 09:32 Dose: 600 mls/hr Documented by: RONALD Vital Signs Vital signs: Vital Signs - 8 hr 09/28/20 08:03 09/28/20 08:05 09/28/20 08:30 Temperature 97.9 F Pulse Rate 101 H 104 H 101 H Respiratory Rate 18 Blood Pressure 167/93 H Pulse Oximetry 97 98 98 09/28/20 09:00 09/28/20 09:22 09/28/20 09:30 Temperature Pulse Rate 102 H 104 H 103 H Respiratory Rate 20 Blood Pressure 153/84 H 147/85 H Pulse Oximetry 98 98 98 MDM - Female Genitourinary Lab Data Result diagrams: 09/28/20 08:30 09/28/20 08:30 Labs: Lab Results 09/28/20 09/28/20 09/28/20 Range/Units 08:30 08:30 08:30 WBC 12.0 H (4.5-11.0) X10^3/uL RBC 3.82 L (4.0-5.2) X10^6/uL Hgb 12.3 (12.0-16.0) g/dL Hct 37.7 (36-46) % MCV 98.6 (80-100) fL MCH 32.2 (26-34) PG MCHC 32.6 (30-36) % RDW 15.0 H (11.6-14.8) % Plt Count 305 (150-400) X10^3/uL Neut % (Auto) 76.0 H (50-75) % Lymph % (Auto) 15.1 L (25-40) % [place] % (Auto) 6.3 (3-14) % Eos % (Auto) 1.8 L (2-4) % Baso % (Auto) 0.8 (0-2) % Neut # (Auto) 9200 H (7818-4006) /uL Lymph # (Auto) 1800 (3330-0325) /uL [place] # (Auto) 800 (0-900) /uL Eos # (Auto) 200 (0-450) /uL Baso # (Auto) 100 (0-100) /uL Sodium 137 (137-145) mmol/L Potassium 3.9 (3.4-5.1) mmol/L Chloride 110 H (98-107) mmol/L Carbon Dioxide 17 L (22-32) mmol/L BUN 7 (7-17) mg/dL Creatinine 0.47 L (0.52-1.04) mg/dL Estimated GFR > 60.0 (>60) mL/min BUN/Creatinine Ratio 14.9 (6-22) Glucose 250 H D (70-100) mg/dL Lactate 1.6 (0.7-2.1) mmol/L Calcium 9.5 (8.4-10.2) mg/dL Total Bilirubin 0.4 (0.2-1.3) mg/dL AST 53 H (14-36) IU/L ALT 52 H (<35) IU/L Alkaline Phosphatase 225 H (38-126) U/L Total Protein 7.9 (6.3-8.2) g/dL Albumin 3.7 (3.5-5.0) g/dL Globulin 4.2 H (1.7-4.1) g/dL Albumin/Globulin Ratio 0.9 L (1.0-2.8) Procalcitonin 1.35 H (<0.5) ng/mL Urine Color Urine Appearance Urine pH (4.5-8.0) Ur Specific [place] (1.000-1.035) Urine Protein (Negative) Urine Glucose (UA) (Negative) g/dL Urine Ketones (NEGATIVE) Urine Occult Blood (Negative) Urine Nitrate (Negative) Urine Bilirubin (NEGATIVE) Urine Urobilinogen (0.2) E.U./dL Ur Leukocyte Esterase (NEGATIVE) Urine RBC (0-5/HPF) Urine WBC (0-5/HPF) Ur Squamous Epith Cells (0-5/HPF) Urine Bacteria (None) Ur Culture Indicated? SARS-CoV-2 (PCR) (Negative) 09/28/20 09/28/20 Range/Units 09:36 09:36 WBC (4.5-11.0) X10^3/uL RBC (4.0-5.2) X10^6/uL Hgb (12.0-16.0) g/dL Hct (36-46) % MCV (80-100) fL MCH (26-34) PG MCHC (30-36) % RDW (11.6-14.8) % Plt Count (150-400) X10^3/uL Neut % (Auto) (50-75) % Lymph % (Auto) (25-40) % [place] % (Auto) (3-14) % Eos % (Auto) (2-4) % Baso % (Auto) (0-2) % Neut # (Auto) (7714-6035) /uL Lymph # (Auto) (6061-6489) /uL [place] # (Auto) (0-900) /uL Eos # (Auto) (0-450) /uL Baso # (Auto) (0-100) /uL Sodium (137-145) mmol/L Potassium (3.4-5.1) mmol/L Chloride (98-107) mmol/L Carbon Dioxide (22-32) mmol/L BUN (7-17) mg/dL Creatinine (0.52-1.04) mg/dL Estimated GFR (>60) mL/min BUN/Creatinine Ratio (6-22) Glucose (70-100) mg/dL Lactate (0.7-2.1) mmol/L Calcium (8.4-10.2) mg/dL Total Bilirubin (0.2-1.3) mg/dL AST (14-36) IU/L ALT (<35) IU/L Alkaline Phosphatase (38-126) U/L Total Protein (6.3-8.2) g/dL Albumin (3.5-5.0) g/dL Globulin (1.7-4.1) g/dL Albumin/Globulin Ratio (1.0-2.8) Procalcitonin (<0.5) ng/mL Urine Color Yellow Urine Appearance Clear Urine pH 7.0 (4.5-8.0) Ur Specific [place] 1.015 (1.000-1.035) Urine Protein Trace H (Negative) Urine Glucose (UA) Negative (Negative) g/dL Urine Ketones 1+ H (NEGATIVE) Urine Occult Blood Trace-lysed (Negative) Urine Nitrate Negative (Negative) Urine Bilirubin Negative (NEGATIVE) Urine Urobilinogen 0.2 (0.2) E.U./dL Ur Leukocyte Esterase Negative (NEGATIVE) Urine RBC 1-5/hpf (0-5/HPF) Urine WBC 1-5/hpf (0-5/HPF) Ur Squamous Epith Cells 0-1 /hpf (0-5/HPF) Urine Bacteria Occasional (0-1) D (None) Ur Culture Indicated? Cult not indicated SARS-CoV-2 (PCR) Negative (Negative) MDM Narrative Medical decision making narrative: Patient has failed outpatient treatment and has multi drug resistant bacteria. Based on allergies and sensitivities antibiotics were chosen including Levaquin and Zyvox. She has leukocytosis of 12 with elevated procalcitonin of 1.3 blood pressure has remained stable in the emergency department no sign of septic shock. Sepsis fluids were not started. She does continue to have pain and certainly has a component of anxiety as well. Dr. sickle updated patient's symptoms test results and accepts patient for admission Discharge Plan Departure Patient Disposition: Admitted As Inpatient Clinical Impression: Pyelonephritis Admit Date/Time: 09/28/20 10:47 Admit Provider: Sol Zamarripa
[2020-09-28 08:46] LABS: Add Manual Diff / Slide Review NO; Basophils Absolute Auto 100 /uL (0-100); Basophils Percent Auto 0.8 % (0-2); Eosinophils Absolute Auto 200 /uL (0-450); Eosinophils Percent Auto 1.8 % (2-4); Hematocrit 37.7 % (36-46); Hemoglobin 12.3 g/dL (12.0-16.0); Lymphocytes Absolute Auto 1800 /uL (1100-4500); Lymphocytes Percent Auto 15.1 % (25-40); Mean Corpuscular HGB Conc 32.6 % (30-36); Mean Corpuscular Hemoglobin 32.2 PG (26-34); Mean Corpuscular Volume 98.6 fL (80-100); Monocytes Absolute Auto 800 /uL (0-900); Monocytes Percent Auto 6.3 % (3-14); Neutrophils Absolute Auto 9200 /uL (1500-7000); Platelet Count 305 X10^3/uL (150-400); Red Blood Cell Count 3.82 X10^6/uL (4.0-5.2)
[2020-09-28 08:56] LABS: Alanine Aminotransferase 52 IU/L (<35); Albumin 3.7 g/dL (3.5-5.0); Albumin Globulin Ratio 0.9 (1.0-2.8); Alkaline Phosphatase 225 U/L (38-126); Aspartate Aminotransferase 53 IU/L (14-36); BUN Creatinine Ratio 14.9 (6-22); Bilirubin Total 0.4 mg/dL (0.2-1.3); Blood Urea Nitrogen 7 mg/dL (7-17); Calcium 9.5 mg/dL (8.4-10.2); Carbon Dioxide 17 mmol/L (22-32); Chloride 110 mmol/L (98-107); Estimated Glomerular Filt Rate > 60.0 mL/min (>60); Globulin 4.2 g/dL (1.7-4.1); Glucose 250 mg/dL (70-100); HEMOLYSIS < 15 (0-50); Lactate (Lactic Acid) 1.6 mmol/L (0.7-2.1); Potassium 3.9 mmol/L (3.4-5.1); Sodium 137 mmol/L (137-145); Total Protein 7.9 g/dL (6.3-8.2)
[2020-09-28 09:13] LABS: Procalcitonin 1.35 ng/mL (<0.5)
[2020-09-28] MEDS: SODIUM CHLORIDE 0.9% 1,000 ML 200 ML IV (09:30)
[2020-09-28] MEDS: LINEZOLID 600 MG/300 ML IV.SOLN IV ×2 (09:32→21:47)
[2020-09-28 09:53] LABS: Appearance Urine UA CLEAR; Bilirubin Urine UA NEGATIVE (NEGATIVE); Color Urine UA YELLOW; Glucose Urine UA NEGATIVE (Negative); Ketones Urine UA 1+ (NEGATIVE); Leukocyte Esterase Urine UA NEGATIVE (NEGATIVE); Nitrite Urine UA NEGATIVE (Negative); Occult Blood Urine UA TRACE-LYSED (Negative); Protein Urine UA TRACE (Negative); Specific Gravity Urine UA 1.015 (1.000-1.035); Urobilinogen Urine UA 0.2 E.U./dL (0.2)
[2020-09-28 10:12] LABS: RBC Urine 1-5/HPF (0-5/HPF); Squamous Epithelial Cell Urine 0-1 /HPF (0-5/HPF); WBC Urine 1-5/HPF (0-5/HPF)
[2020-09-28 10:13] LABS: Bacteria Urine Occasional (0-1); Culture Indicated Urine Cult Not Indicated
[2020-09-28] MEDS: levoFLOXacin 750 MG/150 ML PIGGYBACK 100 MG IV (10:23)
[2020-09-28] MEDS: HYDROMORPHONE 1 MG INJ IV ×4 (10:35→21:41)
[2020-09-28 11:06] LABS: COVID19 - ADMIT (NP swab/PCR) Negative (Negative)
--- NOTE | 2020-09-28 11:21 | PM.HP.1 ---
History of Present Illness History of Present Illness Date Patient Seen: 09/28/20 Time Patient Seen: 11:21 Chief complaint: KIDNEY INFECTION Narrative: This is a 55-year-old female with several chronic illnesses including recurrent pyelonephritis, Tube Urostomy for interstitial cystitis, type 2 diabetes mellitus, Restless leg syndrome and insomnia who presents with approximately 1 week of symptoms including muscle aches, right flank pain, nausea without fever and positive urine cultures from 09/20/2020. She grew 3 organisms on that culture including vancomycin resistant Enterococcus, Citrobacter and Pantoea. She was initially treated with oral ciprofloxacin and then subsequently with nitrofurantoin but has continued to worsen. Her white blood count on admission is 12 with a procalcitonin of 1.3. She also appears to have some oral thrush. Patient History Medical History (Updated 09/28/20 @ 10:19 by Vivi Montoya DO) Anxiety Closed fracture of left humerus Endometriosis Fibromyalgia Heart palpitations History of asthma History of chronic hypertension History of COPD History of depression History of gastrointestinal ulcer History of kidney stones History of migraine History of panic attacks History of type 2 diabetes mellitus Hyperlipidemia Interstitial cystitis UTI (urinary tract infection) Surgical History History of urostomy S/P appendectomy Status post hysterectomy Status post left rotator cuff repair Family & Social History Family History Mother Diabetes mellitus Lupus Social History: household members spouse Safety & Behavioral: Feels Safe in Current Yes Environment Been Physically Hurt or No Threatened By a Person Tobacco & Substance use: Tobacco type cigarettes Smoking Status Current every day smoker alcohol intake current alcohol intake frequency holiday/special occasion Substance Use Type former substance user Meds Home Medications and Allergies Home Medications Medication Instructions Recorded Confirmed Type albuterol sulfate 90 mcg/actuation 2 puff INH Q4HP PRN #0 01/08/13 09/28/20 History aerosol inhaler (Proventil HFA) hydroxyzine HCl 25 mg tablet 50 mg PO BID #0 01/08/13 09/28/20 History duloxetine 60 mg capsule,delayed 60 mg PO BEDTIME #0 07/04/17 09/28/20 History release gabapentin 300 mg capsule 900 mg PO BID #0 07/04/17 09/28/20 History (Neurontin) multivitamin (Multiple Vitamins) 1 tab PO DAILY #0 07/04/17 09/28/20 History zolpidem 10 mg tablet (Ambien) 10 mg PO HS PRN #0 07/04/17 09/28/20 History Probiotic 1 tab PO DAILY 09/26/17 09/28/20 History omeprazole 20 mg capsule,delayed 40 mg PO BID 09/26/17 09/28/20 History release ondansetron 4 mg disintegrating 1 tab TRANSLINGUAL Q6H PRN 09/26/17 09/28/20 History tablet lorazepam 0.5 mg tablet 0.5 mg PO BEDTIME 05/30/18 09/28/20 History insulin NPH isoph U-100 human 100 15 unit SUBCUT BID 05/17/19 09/28/20 History unit/mL (3 mL) subcutaneous pen (Humulin N NPH U-100 Insulin KwikPen) methocarbamol 500 mg tablet 1,000 mg PO QID 05/17/19 09/28/20 History quetiapine 100 mg tablet 300 mg PO BEDTIME 11/04/19 09/28/20 History magnesium glycinate 100 mg tablet 800 mg PO BEDTIME 12/08/19 09/28/20 History melatonin 10 mg tablet 20 mg PO BEDTIME 12/08/19 09/28/20 History promethazine 25 mg tablet 25 mg PO TID PRN #10 tab 04/16/20 09/28/20 Rx promethazine 25 mg rectal 25 mg DE Q4-6H PRN #12 ea 04/19/20 09/28/20 Rx suppository cholecalciferol (vitamin D3) 25 25 mcg PO DAILY 08/31/20 09/28/20 History mcg (1,000 unit) tablet (Vitamin D3) docusate sodium 100 mg capsule 100 mg PO DAILY 08/31/20 09/28/20 History prazosin 1 mg capsule 1 mg PO BEDTIME 08/31/20 09/28/20 History ropinirole 0.25 mg tablet (Requip) 0.5 mg PO BEDTIME 08/31/20 09/28/20 History sumatriptan succinate 25 mg tablet 25 mg PO DIRECTED PRN 08/31/20 09/28/20 History vitamin E 400 unit tablet 400 unit PO DAILY 08/31/20 09/28/20 History prochlorperazine maleate 10 mg 10 mg PO Q6H PRN 09/28/20 09/28/20 History tablet Allergies Allergy/AdvReac Type Severity Reaction Status Date / Time mupirocin Allergy Unknown Verified 09/28/20 08:09 naproxen Allergy Unknown Verified 09/28/20 08:09 Penicillins Allergy Unknown SINCE Verified 09/28/20 08:09 CHILDHOOD droperidol AdvReac Unknown Verified 09/28/20 08:09 fenofibrate [FENOFIBRATE] AdvReac Unknown Verified 09/28/20 08:09 ibuprofen AdvReac Unknown NAUSEA Verified 09/28/20 08:09 metformin [METFORMIN] AdvReac Unknown Verified 09/28/20 08:09 metoclopramide AdvReac Unknown BECAME Verified 09/28/20 08:09 JITTERY AND ANXIOUS nitrofurantoin AdvReac Unknown NAUSEA Verified 09/28/20 08:09 Review of Systems Review of Systems Narrative: Positive for nausea, chills and right upper quadrant/flank pain. Negative for fevers, sweating, vomiting, bleeding, rashes, seizures, headaches, coughing, chest pain, shortness of breath, new allergies, trouble talking Exam Vital Signs (past 8 hours): - 09/28/20 08:03 09/28/20 08:05 09/28/20 08:30 Temperature 97.9 F Pulse Rate 101 H 104 H 101 H Respiratory Rate 18 Blood Pressure 167/93 H Pulse Oximetry 97 98 98 09/28/20 09:00 09/28/20 09:22 09/28/20 09:30 Temperature Pulse Rate 102 H 104 H 103 H Respiratory Rate 20 Blood Pressure 153/84 H 147/85 H Pulse Oximetry 98 98 98 Oxygen Delivery Method Room Air Narrative Exam Narrative: she is alert and oriented x3 but appears to be in significant/ severe distress from right flank pain typical of her recurrent pyelonephritis. Pupils are equally round and reactive to light and accommodation Sclerae pink and nonicteric Extraocular muscles are intact No lymph nodes are felt head, neck, supraclavicular area There is no thyromegaly JVD is less than 6 cm No carotid bruits are heard Throat looks normal except for diffuse thrush growth on the tongue Heart is regular rate and rhythm without murmur Lungs are clear to auscultation bilaterally Abdomen is soft, bowel sounds positive, no organomegaly. The urostomy tube is present in the urostomy of the right lower quadrant. She is moderately tender in a diffuse pattern on the right flank. Nontender elsewhere. There is no ankle edema Skin she has multiple picking scars on arms and on her face / neck. Neurologic exam Motor function is 3/5 throughout diffusely Cranial nerves 2-12 test intact There is no tremor Objective Labs Result Diagrams: 09/28/20 08:30 09/28/20 08:30 Labs: Laboratory Results - last 24 hr 09/28/20 09/28/20 09/28/20 08:30 08:30 08:30 WBC 12.0 H RBC 3.82 L Hgb 12.3 Hct 37.7 MCV 98.6 MCH 32.2 MCHC 32.6 RDW 15.0 H Plt Count 305 Neut % (Auto) 76.0 H Lymph % (Auto) 15.1 L [place] % (Auto) 6.3 Eos % (Auto) 1.8 L Baso % (Auto) 0.8 Neut # (Auto) 9200 H Lymph # (Auto) 1800 [place] # (Auto) 800 Eos # (Auto) 200 Baso # (Auto) 100 Sodium 137 Potassium 3.9 Chloride 110 H Carbon Dioxide 17 L BUN 7 Creatinine 0.47 L Estimated GFR > 60.0 BUN/Creatinine Ratio 14.9 Glucose 250 H D Lactate 1.6 Calcium 9.5 Total Bilirubin 0.4 AST 53 H ALT 52 H Alkaline Phosphatase 225 H Total Protein 7.9 Albumin 3.7 Globulin 4.2 H Albumin/Globulin Ratio 0.9 L Procalcitonin 1.35 H Urine Color Urine Appearance Urine pH Ur Specific [place] Urine Protein Urine Glucose (UA) Urine Ketones Urine Occult Blood Urine Nitrate Urine Bilirubin Urine Urobilinogen Ur Leukocyte Esterase Urine RBC Urine WBC Ur Squamous Epith Cells Urine Bacteria Ur Culture Indicated? SARS-CoV-2 (PCR) 09/28/20 09/28/20 09:36 09:36 WBC RBC Hgb Hct MCV MCH MCHC RDW Plt Count Neut % (Auto) Lymph % (Auto) [place] % (Auto) Eos % (Auto) Baso % (Auto) Neut # (Auto) Lymph # (Auto) [place] # (Auto) Eos # (Auto) Baso # (Auto) Sodium Potassium Chloride Carbon Dioxide BUN Creatinine Estimated GFR BUN/Creatinine Ratio Glucose Lactate Calcium Total Bilirubin AST ALT Alkaline Phosphatase Total Protein Albumin Globulin Albumin/Globulin Ratio Procalcitonin Urine Color Yellow Urine Appearance Clear Urine pH 7.0 Ur Specific [place] 1.015 Urine Protein Trace H Urine Glucose (UA) Negative Urine Ketones 1+ H Urine Occult Blood Trace-lysed Urine Nitrate Negative Urine Bilirubin Negative Urine Urobilinogen 0.2 Ur Leukocyte Esterase Negative Urine RBC 1-5/hpf Urine WBC 1-5/hpf Ur Squamous Epith Cells 0-1 /hpf Urine Bacteria Occasional (0-1) D Ur Culture Indicated? Cult not indicated SARS-CoV-2 (PCR) Negative Assessment & Plan Assessment & Plan narrative: This is a 55-year-old female with several chronic illnesses including recurrent pyelonephritis, Tube Urostomy for interstitial cystitis, type 2 diabetes mellitus, Restless leg syndrome and insomnia who presents with approximately 1 week of symptoms including muscle aches, right flank pain, nausea without fever and positive urine cultures from 09/20/2020. Recurrent Pyelonephritis, present on admission. Active. - Repeat UA on admission with 1-5 WBC so no UC is repeated, BC are pending - Consider Abdominal CT - Vancomycin resistant Enterococcus on urine culture 09/20 (PCN allergic) - Citrobacter on urine culture - Pantoea on urine culture - optimize coverage based on culture sensitivities of cefepime 2 g q.12 hours and linezolid 600 mg q.12 hours IV Type 2 Diabetes Mellitus, present on admission. Active. -NPH and Lispro correctional scale along with Carb Choice diet Hypertension, present on admission. Active -Start on Losartan 25 mg daily and Metoprolol XL 25 mg daily RLS, present on admission. Chronic. -Continue Ropinorole Insomnia, present on admission. Chronic -Continue Seroquel, Melatonin and Prazosin GERD, present on admission. Chronic. -Omeprazole 40 mg BID Depression, present on admission. Chronic. -Holding Duloxetine while on Linezolid due to Serotonergic Syndrome warning Oral Thrush, present on admission. Active -Nystatin swish and swallow Lovenox for DVT prevention Her backup decision maker is her , Lucian Gibbs.
[2020-09-28] MEDS: SODIUM CHLORIDE 0.9% 1,000 ML 100 ML IV (11:35)
[2020-09-28] MEDS: OXYCODONE IR 5 MG TABLET PO (11:37)
[2020-09-28] MEDS: ONDANSETRON 4 MG ODT SL ×2 (11:37→17:32)
[2020-09-28] MEDS: CEFEPIME 2 GM in SODIUM CHLORIDE 0.9% 100 ML 200 ML IV (12:21)
[2020-09-28] MEDS: NICOTINE 21 MG PATCH TOP (12:21)
[2020-09-28] MEDS: INSULIN LISPRO 100 UNIT/ML 3ML VIAL SUBCUT (12:28)
--- NOTE | 2020-09-28 13:39 | PC.NURSE ---
Admit Note Pt arrived to room at 1120 via stretcher from ER, walked self to bed. Tearful but cooperative, reports pain to bilateral flanks 8.10. Medicated with oxycodone. Oriented to room and to bed/tv/call light controls. Call light within reach. Purse sent home with . Declines to lock valuables in safe. Nicotine patch placed to left arm. IV abx infusing. Urostomy in place and draining cloudy yellow urine.
[2020-09-28] MEDS: METOPROLOL ER 25 MG TABLET PO (17:13)
[2020-09-28] MEDS: NYSTATIN SUSP 500,000 UNIT/5 ML UDC 500000 UNIT PO ×2 (17:17→21:47)
[2020-09-28] MEDS: LOSARTAN 25 MG TABLET PO (17:17)
[2020-09-28] MEDS: ROPINIROLE 0.25 MG TABLET 0.5 MG PO (21:41)
[2020-09-28] MEDS: hydrOXYzine pamoate 25 MG CAPSULE 50 MG PO (21:42)
[2020-09-28] MEDS: MELATONIN 3 MG TABLET 18 MG PO (21:43)
[2020-09-28] MEDS: QUETIAPINE 100 MG TABLET 300 MG PO (21:45)
[2020-09-28] MEDS: PANTOPRAZOLE DR 40 MG TABLET PO (21:46)
[2020-09-28] MEDS: PRAZOSIN 1 MG CAPSULE PO (21:46)
[2020-09-28] MEDS: LORazepam 0.5 MG TABLET PO (21:46)
[2020-09-28] MEDS: GABAPENTIN 300 MG CAPSULE 900 MG PO (21:55)
[2020-09-28] MEDS: INSULIN NPH 100 UNIT/ML VIAL 15 UNIT SUBCUT (22:03)
[2020-09-28] MEDS: diphenhydrAMINE 25 MG TABLET 50 MG PO (23:47)
[2020-09-29] VITALS (8 sets, daily range): BP systolic 83–172; BP diastolic 58–90; PULSE 69–96; RESP 14–20; TEMP 36.4–36.9; O2SAT 94–100
[2020-09-29] MEDS: CEFEPIME 2 GM in SODIUM CHLORIDE 0.9% 100 ML 200 ML IV ×2 (00:30→13:11)
[2020-09-29] MEDS: HYDROMORPHONE 1 MG INJ IV ×5 (04:45→21:18)
[2020-09-29 05:02] LABS: Add Manual Diff / Slide Review NO; Basophils Absolute Auto 100 /uL (0-100); Basophils Percent Auto 0.7 % (0-2); Eosinophils Absolute Auto 400 /uL (0-450); Eosinophils Percent Auto 4.4 % (2-4); Hematocrit 31.6 % (36-46); Hemoglobin 10.5 g/dL (12.0-16.0); Lymphocytes Absolute Auto 2700 /uL (1100-4500); Lymphocytes Percent Auto 32.4 % (25-40); Mean Corpuscular HGB Conc 33.2 % (30-36); Mean Corpuscular Hemoglobin 33.2 PG (26-34); Monocytes Absolute Auto 1100 /uL (0-900); Monocytes Percent Auto 13.1 % (3-14); Neutrophils Absolute Auto 4100 /uL (1500-7000); Neutrophils Percent Auto 49.4 % (50-75); Platelet Count 254 X10^3/uL (150-400); Red Blood Cell Count 3.16 X10^6/uL (4.0-5.2); White Blood Cell Count 8.3 X10^3/uL (4.5-11.0)
[2020-09-29 05:28] LABS: BUN Creatinine Ratio 18.8 (6-22); Blood Urea Nitrogen 9 mg/dL (7-17); Calcium 8.4 mg/dL (8.4-10.2); Carbon Dioxide 19 mmol/L (22-32); Chloride 114 mmol/L (98-107); Estimated Glomerular Filt Rate > 60.0 mL/min (>60); Glucose 131 mg/dL (70-100); HEMOLYSIS < 15 (0-50); Potassium 3.4 mmol/L (3.4-5.1); Sodium 137 mmol/L (137-145)
--- NOTE | 2020-09-29 07:57 | P.PN_ITS ---
Subjective Subjective Date Patient Seen: 09/29/20 Interval history: She is seen today to follow-up her right flank pain and pyelonephritis. The white blood count is 8.3 with a hemoglobin of 10.5. The potassium is low at 3.4. Her AST is 53. Her ALT is 52. Her alk-phos is 225. The procalcitonin yesterday was 1.35. She says that the right flank is hurting more than yesterday. At the same time she appears much more energetic and less distracted. The flank pain is worse when she is taking a deep breath. She says she fell 1 week ago onto that side but the details are are murky. Exam Vital Signs (past 8 hours): - 09/29/20 04:30 09/29/20 07:37 Temperature 97.9 F Pulse Rate 71 75 Respiratory Rate 17 18 Blood Pressure 104/60 Pulse Oximetry 97 96 Oxygen Delivery Method Room Air Oxygen Flow Rate 0 Narrative Exam Narrative: She is alert and oriented x3. No apparent distress. She is less internally distracted and seems to have more energy. The braxton the tube is intact on the right lower quadrant and draining yellow urine. Heart is regular rate and rhythm without murmur Lungs are clear to auscultation bilaterally. There is no observed guarding or pain with breathing. Extremities have no ankle edema The right flank is quite exquisitely tender without signs of any swelling. Objective Labs Result Diagrams: 09/29/20 04:35 09/29/20 04:35 Labs: Laboratory Results - last 24 hr 09/28/20 09/28/20 09/28/20 08:30 08:30 08:30 WBC 12.0 H RBC 3.82 L Hgb 12.3 Hct 37.7 MCV 98.6 MCH 32.2 MCHC 32.6 RDW 15.0 H Plt Count 305 Neut % (Auto) 76.0 H Lymph % (Auto) 15.1 L [place] % (Auto) 6.3 Eos % (Auto) 1.8 L Baso % (Auto) 0.8 Neut # (Auto) 9200 H Lymph # (Auto) 1800 [place] # (Auto) 800 Eos # (Auto) 200 Baso # (Auto) 100 Sodium 137 Potassium 3.9 Chloride 110 H Carbon Dioxide 17 L BUN 7 Creatinine 0.47 L Estimated GFR > 60.0 BUN/Creatinine Ratio 14.9 Glucose 250 H D Lactate 1.6 Calcium 9.5 Total Bilirubin 0.4 AST 53 H ALT 52 H Alkaline Phosphatase 225 H Total Protein 7.9 Albumin 3.7 Globulin 4.2 H Albumin/Globulin Ratio 0.9 L Procalcitonin 1.35 H Urine Color Urine Appearance Urine pH Ur Specific [place] Urine Protein Urine Glucose (UA) Urine Ketones Urine Occult Blood Urine Nitrate Urine Bilirubin Urine Urobilinogen Ur Leukocyte Esterase Urine RBC Urine WBC Ur Squamous Epith Cells Urine Bacteria Ur Culture Indicated? SARS-CoV-2 (PCR) 09/28/20 09/28/20 09/29/20 09:36 09:36 04:35 WBC 8.3 RBC 3.16 L Hgb 10.5 L Hct 31.6 L MCV 100.0 MCH 33.2 MCHC 33.2 RDW 15.0 H Plt Count 254 Neut % (Auto) 49.4 L D Lymph % (Auto) 32.4 [place] % (Auto) 13.1 Eos % (Auto) 4.4 H Baso % (Auto) 0.7 Neut # (Auto) 4100 Lymph # (Auto) 2700 [place] # (Auto) 1100 H Eos # (Auto) 400 Baso # (Auto) 100 Sodium Potassium Chloride Carbon Dioxide BUN Creatinine Estimated GFR BUN/Creatinine Ratio Glucose Lactate Calcium Total Bilirubin AST ALT Alkaline Phosphatase Total Protein Albumin Globulin Albumin/Globulin Ratio Procalcitonin Urine Color Yellow Urine Appearance Clear Urine pH 7.0 Ur Specific [place] 1.015 Urine Protein Trace H Urine Glucose (UA) Negative Urine Ketones 1+ H Urine Occult Blood Trace-lysed Urine Nitrate Negative Urine Bilirubin Negative Urine Urobilinogen 0.2 Ur Leukocyte Esterase Negative Urine RBC 1-5/hpf Urine WBC 1-5/hpf Ur Squamous Epith Cells 0-1 /hpf Urine Bacteria Occasional (0-1) D Ur Culture Indicated? Cult not indicated SARS-CoV-2 (PCR) Negative 09/29/20 04:35 WBC RBC Hgb Hct MCV MCH MCHC RDW Plt Count Neut % (Auto) Lymph % (Auto) [place] % (Auto) Eos % (Auto) Baso % (Auto) Neut # (Auto) Lymph # (Auto) [place] # (Auto) Eos # (Auto) Baso # (Auto) Sodium 137 Potassium 3.4 Chloride 114 H Carbon Dioxide 19 L BUN 9 Creatinine 0.48 L Estimated GFR > 60.0 BUN/Creatinine Ratio 18.8 Glucose 131 H D Lactate Calcium 8.4 Total Bilirubin AST ALT Alkaline Phosphatase Total Protein Albumin Globulin Albumin/Globulin Ratio Procalcitonin Urine Color Urine Appearance Urine pH Ur Specific [place] Urine Protein Urine Glucose (UA) Urine Ketones Urine Occult Blood Urine Nitrate Urine Bilirubin Urine Urobilinogen Ur Leukocyte Esterase Urine RBC Urine WBC Ur Squamous Epith Cells Urine Bacteria Ur Culture Indicated? SARS-CoV-2 (PCR) [facility] Medical History (Updated 09/28/20 @ 10:19 by Vivi Montoya DO) Anxiety Closed fracture of left humerus Endometriosis Fibromyalgia Heart palpitations History of asthma History of chronic hypertension History of COPD History of depression History of gastrointestinal ulcer History of kidney stones History of migraine History of panic attacks History of type 2 diabetes mellitus Hyperlipidemia Interstitial cystitis UTI (urinary tract infection) Surgical History History of urostomy S/P appendectomy Status post hysterectomy Status post left rotator cuff repair Family History Mother Diabetes mellitus Lupus Social History household members: spouse Smoking Status: Current every day smoker alcohol intake: current Assessment & Plan Assessment & Plan narrative: This is a 55-year-old female with several chronic illnesses including recurrent pyelonephritis, Tube Urostomy for interstitial cystitis, type 2 diabetes mellitus, Restless leg syndrome and insomnia who presents with approximately 1 week of symptoms including muscle aches, right flank pain, nausea without fever and positive urine cultures from 09/20/2020. Recurrent Pyelonephritis, likely due to the presence of the urostomy, present on admission. Active. - Repeat UA on admission with 1-5 WBC so no UC is repeated, BC no growth at 24 hours - US ordered due to increased flank pain. CT from 09/20 is again reviewed. - Vancomycin resistant Enterococcus on urine culture 09/20 (PCN allergic) - Citrobacter on urine culture - Pantoea on urine culture - optimize coverage based on culture sensitivities of cefepime 2 g q.12 hours and linezolid 600 mg q.12 hours IV Type 2 Diabetes Mellitus, present on admission. Active. -NPH and Lispro correctional scale along with Carb Choice diet Hypertension, present on admission. Active -Increase new Losartan to 50 mg daily and continue new Metoprolol XL 25 mg daily RLS, present on admission. Chronic. -Continue Ropinorole Insomnia, present on admission. Chronic -Continue Seroquel, Melatonin and Prazosin GERD, present on admission. Chronic. -Omeprazole 40 mg BID Depression, present on admission. Chronic. -Holding Duloxetine while on Linezolid due to Serotonergic Syndrome warning Oral Thrush, present on admission. Active -Nystatin swish and swallow Lovenox for DVT prevention Her backup decision maker is her , Lucian Gibbs. Quality VTE Deep Vein Thrombosis/Pulmonary Embolism Present on Admission: No
[2020-09-29] MEDS: hydrOXYzine pamoate 25 MG CAPSULE 50 MG PO ×2 (08:02→21:16)
[2020-09-29] MEDS: LOSARTAN 25 MG TABLET PO (08:03)
[2020-09-29] MEDS: METOPROLOL ER 25 MG TABLET PO (08:03)
[2020-09-29] MEDS: GABAPENTIN 300 MG CAPSULE 900 MG PO ×2 (08:04→21:14)
[2020-09-29] MEDS: NICOTINE 21 MG PATCH TOP (08:05)
[2020-09-29] MEDS: NYSTATIN SUSP 500,000 UNIT/5 ML UDC 500000 UNIT PO ×4 (08:06→21:18)
[2020-09-29] MEDS: LINEZOLID 600 MG/300 ML IV.SOLN IV ×2 (09:25→21:18)
[2020-09-29] MEDS: ENOXAPARIN 40 MG/0.4 ML SYRINGE SUBCUT (09:25)
[2020-09-29] MEDS: MULTIVITAMIN 1 TABLET 1 TAB PO (09:27)
[2020-09-29] MEDS: PANTOPRAZOLE DR 40 MG TABLET PO ×2 (09:27→21:14)
[2020-09-29] MEDS: OXYCODONE IR 5 MG TABLET PO ×3 (12:01→20:19)
--- NOTE | 2020-09-29 12:52 | DI.US.S_ITS ---
PROCEDURE: US RENAL COMPLETE INDICATIONS: RIGHT FLANK PAIN. HISTORY OF RECURRENT PYELONEPHRITIS TECHNIQUE: Real-time scanning was performed of the kidneys and bladder, with image documentation. COMPARISON: [facility], CT, CT ABDOMEN PELVIS W CON, 09/20/2020, 12:31. FINDINGS: Kidneys: Kidneys are normal in size. Right kidney measures 10.8 cm long; left kidney measures 10.3 cm long. Right renal cortical thickness is 1.0 cm; left renal cortical thickness is 1.7 cm. Renal cortical echotexture is normal. No hydronephrosis or nephrolithiasis. No suspicious solid mass lesions. The right ureter appears prominent at 1 cm diameter. The left ureter also appears prominent at 1.1 cm. This is associated with left-sided pelvicaliectasis. Bladder: Resected Miscellaneous: No free pelvic fluid. IMPRESSION: Mild prominence of the central collecting system bilaterally and of the right ureter, but no urinary tract stone is seen. The patient has undergone prior bladder resection and the degree of collecting system prominence and ureteral prominence is in the range of expected variation after cystectomy. Dictated by: Akbar Ortiz M.D. on 09/29/2020 at 14:10 Approved by: Akbar Ortiz M.D. on 09/29/2020 at 14:12
[2020-09-29] MEDS: INSULIN LISPRO 100 UNIT/ML 3ML VIAL SUBCUT ×2 (13:09→17:58)
[2020-09-29] MEDS: SODIUM CHLORIDE 0.9% 1,000 ML 100 ML IV (13:16)
[2020-09-29] MEDS: ALBUTEROL 2.5 MG/3 ML NEB (ADULT) INH (15:05)
--- NOTE | 2020-09-29 15:13 | PC.NURSE ---
Addendum entered by Mile Perea R.N. 09/29/20 15:29: Pt has had urostomy supplies delivered and will change with assist later today. Pain is better controlled. Original Note: Am shift Pt with persistent pain after PO meds. R flank> L, US ordered, IV NS @ 100, IV ABX. Poor PO intake. Comfortable at this time.
--- NOTE | 2020-09-29 15:18 | CM.DANOTE ---
Patient is a 55 year old female who was admitted on 09/28/20 for Kidney Infection. Pt has [employer] for insurance and her PCP is Dr. Fadi Ko. EMR was reviewed. Per MD, pt with hx of frequent UTIs, COPD, anxiety/depression, urostomy and was recently at [facility] and left AMA due to anxiety. Pt admitted for pyelonephritis and IV Abx. Per RN, pt has been less anxious than her admission last month on 08/31/20 for kidney infection when she initially was discussing leaving AMA and not wanting IV access placed. Pt has at least 7 ED visits in the past 5 months and many ED visits last year with an ETOH combative in Nov 2019 and last admission to [facility] was Nov last 2019 and pt and spouse were given MH resources due to pt's admitted challenges with anxiety/panic attacks/depression. Unclear if pt has established with Mental Health counselor or supports. Per RN, pt has an established RN who comes to the house about every 4 days to complete her urostomy changes but unsure what agency the RN is through. SW called [facility] and they are not open with pt to service and [facility] shows pt not current but they worked with her last 2019. Plan: DCP needs unclear at this time, and SW to follow for bedside assessment when more medically appropriate. SW to follow with pt to determine who pt's home RN is through for her urostomy. MYNOR Sanchez Discharge Planning/Care Management CM Discharge Assessment Start: 09/29/20 15:16 Freq: Status: Active Protocol: Document 09/29/20 15:17 BF (Rec: 09/29/20 15:18 BF [id number]) Discharge Planning Assessment Assigned [employer] Art [employer] Mynor Ram DPOA/Assigned Designee Name spouse Dwayne Contact Information [phone] Advance Directives? No Advance Directives on File No History Provided By Patient,Significant Other, Medical Record Has Patient been admitted in last 30 Yes days? Comment here in August 2020 for similar and discharged home Prior Living Arrangements House Household Members spouse Type of transporation used prior to Relies on Others admit Independent with ADL's Yes Is patient alert and oriented? Yes Needs Assistance With Managing Medications,Home Chores / Shopping Caregiver for Another No Community Services used prior to Home Health Nurse admission: Patient/Family Preference Home with Home Health Barriers to Discharge Yes Comment hx of frequent AMA or wanting to leave AMA due to high anxiety issues Discharge Plan Home with Home Health Transportation Arrangement Spouse Referrals Initiated Other Review Status In Process Please Provide Date Initial DC 09/29/20 Assessment Was Performed Next Review Type Continued Stay Review
[2020-09-29] MEDS: ONDANSETRON 4 MG ODT SL (17:14)
[2020-09-29] MEDS: LORazepam 0.5 MG TABLET PO (19:50)
[2020-09-29] MEDS: ROPINIROLE 0.25 MG TABLET 0.5 MG PO (21:13)
[2020-09-29] MEDS: MELATONIN 3 MG TABLET 18 MG PO (21:15)
[2020-09-29] MEDS: PRAZOSIN 1 MG CAPSULE PO (21:17)
[2020-09-29] MEDS: QUETIAPINE 100 MG TABLET 300 MG PO (21:17)
[2020-09-29] MEDS: INSULIN NPH 100 UNIT/ML VIAL 15 UNIT SUBCUT (21:35)
[2020-09-30] VITALS (9 sets, daily range): BP systolic 109–158; BP diastolic 59–98; PULSE 78–82; RESP 16–18; TEMP 36.2–36.6; O2SAT 98
[2020-09-30] MEDS: CEFEPIME 2 GM in SODIUM CHLORIDE 0.9% 100 ML 200 ML IV ×2 (00:05→12:36)
[2020-09-30] MEDS: SODIUM CHLORIDE 0.9% 1,000 ML 1000 ML IV (00:30)
[2020-09-30] MEDS: SODIUM CHLORIDE 0.9% 1,000 ML 100 ML IV (04:39)
[2020-09-30] MEDS: HYDROMORPHONE 1 MG INJ IV ×3 (04:46→14:21)
[2020-09-30 06:55] LABS: Add Manual Diff / Slide Review NO; Basophils Absolute Auto 100 /uL (0-100); Basophils Percent Auto 0.9 % (0-2); Eosinophils Absolute Auto 300 /uL (0-450); Eosinophils Percent Auto 2.8 % (2-4); Hematocrit 32.2 % (36-46); Hemoglobin 10.9 g/dL (12.0-16.0); Lymphocytes Absolute Auto 2900 /uL (1100-4500); Lymphocytes Percent Auto 23.8 % (25-40); Mean Corpuscular HGB Conc 33.7 % (30-36); Mean Corpuscular Hemoglobin 33.4 PG (26-34); Monocytes Absolute Auto 1200 /uL (0-900); Monocytes Percent Auto 10.3 % (3-14); Neutrophils Absolute Auto 7500 /uL (1500-7000); Neutrophils Percent Auto 62.2 % (50-75); Platelet Count 296 X10^3/uL (150-400); Red Blood Cell Count 3.25 X10^6/uL (4.0-5.2); Red Cell Distribution Width 14.8 % (11.6-14.8)
[2020-09-30 07:07] LABS: BUN Creatinine Ratio 16.7 (6-22); Blood Urea Nitrogen 8 mg/dL (7-17); Calcium 8.6 mg/dL (8.4-10.2); Carbon Dioxide 20 mmol/L (22-32); Chloride 117 mmol/L (98-107); Estimated Glomerular Filt Rate > 60.0 mL/min (>60); HEMOLYSIS < 15 (0-50); Potassium 3.2 mmol/L (3.4-5.1); Sodium 141 mmol/L (137-145)
[2020-09-30 07:18] LABS: Glucose 44 mg/dL (70-100)
[2020-09-30] MEDS: INSULIN NPH 100 UNIT/ML VIAL 15 UNIT SUBCUT (08:48)
[2020-09-30] MEDS: ENOXAPARIN 40 MG/0.4 ML SYRINGE SUBCUT (08:49)
[2020-09-30] MEDS: METOPROLOL ER 25 MG TABLET PO (08:50)
[2020-09-30] MEDS: OXYCODONE IR 5 MG TABLET PO ×2 (08:50→13:11)
[2020-09-30] MEDS: NYSTATIN SUSP 500,000 UNIT/5 ML UDC 500000 UNIT PO ×2 (08:50→12:36)
[2020-09-30] MEDS: LOSARTAN 50 MG TABLET PO (08:51)
[2020-09-30] MEDS: MULTIVITAMIN 1 TABLET 1 TAB PO (08:51)
[2020-09-30] MEDS: GABAPENTIN 300 MG CAPSULE 900 MG PO (08:51)
[2020-09-30] MEDS: hydrOXYzine pamoate 25 MG CAPSULE 50 MG PO (08:51)
[2020-09-30] MEDS: PANTOPRAZOLE DR 40 MG TABLET PO (08:51)
[2020-09-30] MEDS: POTASSIUM CHLORIDE 10 MEQ TAB PO (08:51)
[2020-09-30] MEDS: NICOTINE 21 MG PATCH TOP (08:52)
[2020-09-30] MEDS: LINEZOLID 600 MG/300 ML IV.SOLN IV (09:02)
--- NOTE | 2020-09-30 14:45 | CM.DANOTE ---
Patient discharged via wheelchair accompanied by and CONSTRUCTION WORKER. All new medication scripts given to patient along with discharge instructions and education. IV discontinued, intact. Patient verbalized all understanding of discharge instructions and medications and had no further questions.
--- NOTE | 2020-09-30 16:34 | CM.DPC ---
DCP: continued. Case received and discussed in Team Rounds. Dr. Valenzulea stated that that he expected pt would be able to be on oral antibiotics when stable for d/c. A check in now shows a d/c order was placed this afternoon and pt left for home in company of her .
--- NOTE | 2020-09-30 21:16 | PM.DS.1 ---
History of Present Illness History of Present Illness Chief complaint: KIDNEY INFECTION Narrative: Per Dr. Zamarripa: This is a 55-year-old female with several chronic illnesses including recurrent pyelonephritis, Tube Urostomy for interstitial cystitis, type 2 diabetes mellitus, Restless leg syndrome and insomnia who presents with approximately 1 week of symptoms including muscle aches, right flank pain, nausea without fever and positive urine cultures from 09/20/2020. She grew 3 organisms on that culture including vancomycin resistant Enterococcus, Citrobacter and Pantoea. She was initially treated with oral ciprofloxacin and then subsequently with nitrofurantoin but has continued to worsen. Her white blood count on admission is 12 with a procalcitonin of 1.3. She also appears to have some oral thrush. Discharge Providers Provider Date of admission: 09/28/20 10:47 Discharge Date: 09/30/20 Primary care physician: Fadi Ko DO Consults: 09/28/20 11:59 Consult to Dietitian, Adult Routine Comment: Reason For Exam: assessed at high risk Discharge provider: Jose Hackett MD Summary Hospital Course Discharge Diagnosis: 1. Recurrent pyelonephritis secondary to urostomy 2. Type 2 Diabetes with hypoglycemia 3. Hypertension 4. Restless leg syndrome 5. Insomnia 6. GERD 7. Depression 8. Oral thrush Hospital Course: Ms. Gibbs has multiple admissions where she is found to have urine infections and pyelonephritis. She was admitted for the same and had bilateral flank pain. Imaging showed no evidence of obstruction. She had multiple bacteria growing in her urine including Citrobacter which is sensitive to levofloxacin, Pantoea, and Enterococcus sensitive to linezolid. She had already been treated with antibiotics starting on 09/20 with ciprofloxacin. Because of this she will only be continued with a few more days of levofloxacin to have a 2 week course. In addition she will be discharged with one week of linezolid to have a 10 day course. She was recommended to hold duloxetine and sumatriptan while taking this. She had hypertension and losartan was increased to 50mg daily. She also had thrush noted and was given nystatin swish and swallow. She was recommended to follow up with her PCP. Status at Discharge Cognitive/behavioral status at discharge: oriented Functional status at discharge: independent ambulation Overall status at discharge: patient is progressing back to baseline Time Spent with Patient Time spent: Less than 30 minutes Exam Vital Signs (past 8 hours): Oxygen Delivery Method Room Air Oxygen Flow Rate 0 Narrative Exam Narrative: GEN: She is alert and oriented x3. No apparent distress. ABD: Urostomy tube is intact on the right lower quadrant and draining yellow urine. CV: regular rate and rhythm without murmur PULM: cllear to auscultation bilaterally. EXT: have no ankle edema BACK: right flank tenderness Objective Labs Result Diagrams: 09/30/20 06:46 09/30/20 06:46 Labs: Laboratory Results - last 24 hr 09/30/20 09/30/20 06:46 06:46 WBC 12.0 H RBC 3.25 L Hgb 10.9 L Hct 32.2 L MCV 99.0 MCH 33.4 MCHC 33.7 RDW 14.8 Plt Count 296 Neut % (Auto) 62.2 Lymph % (Auto) 23.8 L [place] % (Auto) 10.3 Eos % (Auto) 2.8 Baso % (Auto) 0.9 Neut # (Auto) 7500 H Lymph # (Auto) 2900 [place] # (Auto) 1200 H Eos # (Auto) 300 Baso # (Auto) 100 Sodium 141 Potassium 3.2 L Chloride 117 H Carbon Dioxide 20 L BUN 8 Creatinine 0.48 L Estimated GFR > 60.0 BUN/Creatinine Ratio 16.7 Glucose 44 L* Calcium 8.6 PFSH Medical History (Updated 09/28/20 @ 10:19 by Vivi Montoya DO) Anxiety Closed fracture of left humerus Endometriosis Fibromyalgia Heart palpitations History of asthma History of chronic hypertension History of COPD History of depression History of gastrointestinal ulcer History of kidney stones History of migraine History of panic attacks History of type 2 diabetes mellitus Hyperlipidemia Interstitial cystitis UTI (urinary tract infection) Surgical History History of urostomy S/P appendectomy Status post hysterectomy Status post left rotator cuff repair Family History Mother Diabetes mellitus Lupus Social History household members: spouse Smoking Status: Current every day smoker alcohol intake: current Discharge Plan Discharge Plan Patient Disposition: Home Provider Discharge Comment: Ms. Gibbs came in with an infection called pyelonephritis. She had multiple bacteria in her urine. She had them sensitive to oral antibiotics and will be discharged with two antibiotics for this infection. Please do not take sumatriptan or duloxetine while taking linezolid antibiotic as these medications can interact. Discharge orders & Medications Prescriptions: New losartan 50 mg Tablet 50 mg PO DAILY Qty: 30 RF: 0 nystatin 100,000 unit/mL Suspension 500,000 unit PO QID Qty: 60 RF: 0 linezolid 600 mg tablet 600 mg PO Q12H Qty: 14 RF: 0 levofloxacin 500 mg tablet 500 mg PO DAILY Qty: 3 RF: 0 hydromorphone 2 mg tablet 2 mg PO Q6H Qty: 10 RF: 0 Continued hydroxyzine HCl 25 MG tablet 50 mg PO BID Qty: 0 RF: 0 albuterol sulfate [Proventil HFA] 90 MCG/PUFF HFA aerosol inhaler 2 puff INH Q4HP PRN (Reason: Shortness Of Breath) Qty: 0 RF: 0 gabapentin [Neurontin] 300 MG capsule 900 mg PO BID Qty: 0 RF: 0 multivitamin [Multiple Vitamins] 1 EACH tablet 1 tab PO DAILY Qty: 0 RF: 0 zolpidem [Ambien] 10 MG tablet 10 mg PO HS PRN (Reason: Insomnia) Qty: 0 RF: 0 lorazepam 0.5 mg tablet 0.5 mg PO BEDTIME RF: 0 methocarbamol 500 mg tablet 1,000 mg PO QID RF: 0 Humulin N NPH Insulin KwikPen 100 unit/mL (3 mL) insulin pen 15 unit SUBCUT BID RF: 0 quetiapine 100 mg Tablet 300 mg PO BEDTIME RF: 0 magnesium glycinate 100 mg Tablet 800 mg PO BEDTIME RF: 0 melatonin 10 mg Tablet 20 mg PO BEDTIME RF: 0 promethazine 25 mg suppository 25 mg VT Q4-6H PRN (Reason: nausea and vomiting) Qty: 12 RF: 0 prazosin 1 mg capsule 1 mg PO BEDTIME RF: 0 vitamin E 400 unit Tablet 400 unit PO DAILY RF: 0 docusate sodium 100 mg Capsule 100 mg PO DAILY RF: 0 cholecalciferol (vitamin D3) [Vitamin D3] 25 mcg (1,000 unit) Tablet 25 mcg PO DAILY RF: 0 ropinirole [Requip] 0.25 mg tablet 0.5 mg PO BEDTIME RF: 0 omeprazole 20 mg capsule,delayed release(DR/EC) 40 mg PO BID RF: 0 ondansetron 4 mg tablet,disintegrating 1 tab Translingual Q6H PRN (Reason: Nausea) RF: 0 Probiotic 1 tab PO DAILY RF: 0 promethazine 25 mg tablet 25 mg PO TID PRN (Reason: nausea and vomiting) Qty: 10 RF: 0 prochlorperazine maleate 10 mg tablet 10 mg PO Q6H PRN (Reason: Nausea) RF: 0 Discontinued duloxetine 60 MG capsule,delayed release(DR/EC) 60 mg PO BEDTIME Qty: 0 RF: 0 sumatriptan succinate 25 mg tablet 25 mg PO DIRECTED PRN (Reason: Migraine Headache) RF: 0 Follow up/Referrals: Fadi Ko DO [Primary Care Provider] - Diet/Activity/Treatments Diet: Regular Visit Report/Discharge Packet Instructions: Kidney Infection, DI for Prescription Opioid Use, Linezolid, Hydromorphone, Nystatin, Losartan, Levofloxacin Discharge Data Primary Care Provider: Fadi Ko Quality VTE Deep Vein Thrombosis/Pulmonary Embolism Present on Admission: No MIPS - DC The patient has current or prior documentation of left ventricular ejection fraction (LVEF) less than 40%, or moderate or severely depressed left ventricular systolic function.: No
== END 2020-09-30 14:45 | disposition home or self-care (01) | DRG 699 ==
LOC: ED 10:19 → AC 10:48
PROVIDERS: Admitting Provider Family Medicine; Emergency Provider Emergency Medicine; PCP Family Medicine; Referring Provider Emergency Medicine; Visit Provider Family Medicine
DX: T83.518A Infection and inflammatory reaction due to other urinary catheter, initial encounter (principal); N12 Tubulo-interstitial nephritis, not specified as acute or chronic; B37.0 Candidal stomatitis; Z16.21 Resistance to vancomycin; N30.10 Interstitial cystitis (chronic) without hematuria; B95.2 Enterococcus as the cause of diseases classified elsewhere; Z79.4 Long term (current) use of insulin; E11.649 Type 2 diabetes mellitus with hypoglycemia without coma; G25.81 Restless legs syndrome; G47.00 Insomnia, unspecified; F32.9 Major depressive disorder, single episode, unspecified; F17.210 Nicotine dependence, cigarettes, uncomplicated; Z20.822 Contact with and (suspected) exposure to COVID-19; Z93.6 Other artificial openings of urinary tract status
CPT/HCPCS: 36415; 76770; 80048; 80053; 81001; 82962; 83605; 84145; 85025; 87040; 87635; 94640; 94762; 96365; 96367; 96375; 99284; 99406; C9803; J0692; J1170; J1650; J1815; J1956; J2020; J7613

== ENCOUNTER 2020-11-04 08:21 | Emergency (ER) | payer OTHER, SELFPAY ==
[2020-09-28 11:54] VITALS: BMI 18.3
[2020-11-04 08:30] VITALS: BP 152/87; PULSE 76; RESP 16; TEMP 36.3; O2SAT 100
--- NOTE | 2020-11-04 08:53 | PC.NURSE ---
Nathaly coming to start an US IV
[2020-11-04 08:58] LABS: Bacteria Urine None Seen; RBC Urine None Seen (0-5/HPF)
[2020-11-04 08:59] LABS: Appearance Urine UA CLEAR; Bilirubin Urine UA NEGATIVE (NEGATIVE); Color Urine UA YELLOW; Glucose Urine UA NEGATIVE (Negative); Ketones Urine UA NEGATIVE (NEGATIVE); Leukocyte Esterase Urine UA NEGATIVE (NEGATIVE); Nitrite Urine UA POSITIVE (Negative); Occult Blood Urine UA TRACE-LYSED (Negative); Protein Urine UA TRACE (Negative); Urobilinogen Urine UA 0.2 E.U./dL (0.2)
--- NOTE | 2020-11-04 09:04 | ED.GENADULT ---
HPI - General Adult General Chief complaint: Urogenital-Female Stated complaint: FLANK PAIN ONGOING FOR FEW DAYS Time Seen by Provider: 11/04/20 08:27 Source: patient Mode of arrival: Ambulatory Limitations: no limitations History of Present Illness HPI narrative: Patient is a 55-year-old female. Has chronic issues with urinary symptom to include interstitial cystitis, frequent urinary tract infections, pyelonephritis. She was admitted to our facility approximately 1 month ago with pyelonephritis and was given AV antibiotics and switch to oral antibiotics. She states that after that episode her symptoms improved and felt very well for a couple weeks however approximately 1 week ago symptoms returned. She was seen at an outside emergency department. Was told that she had a urinary tract infection. Was sent home with Macrobid. She states that because of nausea and discomfort she was only able to take the Macrobid about half the time that was actually prescribed. She followed up with her urologist after that and was told to continue to take the Macrobid. After that urology visit her symptoms worsen to the point where she was having quite a bit of discomfort and nausea and vomiting and pain. That was approximately 4 days ago where she was again seen in an outside facility. She stated that she was told that she should be admitted to the hospital but she declined. Since that time she has had continued discomfort. Related Data Home Medications Medication Instructions Recorded Confirmed albuterol sulfate 90 mcg/actuation 2 puff INH Q4HP PRN #0 01/08/13 09/28/20 aerosol inhaler (Proventil HFA) hydroxyzine HCl 25 mg tablet 50 mg PO BID #0 01/08/13 09/28/20 gabapentin 300 mg capsule 900 mg PO BID #0 07/04/17 09/28/20 (Neurontin) multivitamin (Multiple Vitamins) 1 tab PO DAILY #0 07/04/17 09/28/20 zolpidem 10 mg tablet (Ambien) 10 mg PO HS PRN #0 07/04/17 09/28/20 Probiotic 1 tab PO DAILY 09/26/17 09/28/20 omeprazole 20 mg capsule,delayed 40 mg PO BID 09/26/17 09/28/20 release ondansetron 4 mg disintegrating 1 tab TRANSLINGUAL Q6H PRN 09/26/17 09/28/20 tablet lorazepam 0.5 mg tablet 0.5 mg PO BEDTIME 05/30/18 09/28/20 insulin NPH isoph U-100 human 100 15 unit SUBCUT BID 05/17/19 09/28/20 unit/mL (3 mL) subcutaneous pen (Humulin N NPH U-100 Insulin KwikPen) methocarbamol 500 mg tablet 1,000 mg PO QID 05/17/19 09/28/20 quetiapine 100 mg tablet 300 mg PO BEDTIME 11/04/19 09/28/20 magnesium glycinate 100 mg tablet 800 mg PO BEDTIME 12/08/19 09/28/20 melatonin 10 mg tablet 20 mg PO BEDTIME 12/08/19 09/28/20 cholecalciferol (vitamin D3) 25 25 mcg PO DAILY 08/31/20 09/28/20 mcg (1,000 unit) tablet (Vitamin D3) docusate sodium 100 mg capsule 100 mg PO DAILY 08/31/20 09/28/20 prazosin 1 mg capsule 1 mg PO BEDTIME 08/31/20 09/28/20 ropinirole 0.25 mg tablet (Requip) 0.5 mg PO BEDTIME 08/31/20 09/28/20 vitamin E 400 unit tablet 400 unit PO DAILY 08/31/20 09/28/20 prochlorperazine maleate 10 mg 10 mg PO Q6H PRN 09/28/20 09/28/20 tablet Previous Rx's Medication Instructions Recorded promethazine 25 mg tablet 25 mg PO TID PRN #10 tab 04/16/20 promethazine 25 mg rectal 25 mg OH Q4-6H PRN #12 ea 04/19/20 suppository hydromorphone 2 mg tablet 2 mg PO Q6H #10 tab 09/30/20 levofloxacin 500 mg tablet 500 mg PO DAILY #3 tab 09/30/20 linezolid 600 mg tablet 600 mg PO Q12H #14 tab 09/30/20 losartan 50 mg tablet 50 mg PO DAILY #30 tab 09/30/20 nystatin 100,000 unit/mL oral 500,000 unit PO QID #60 ml 09/30/20 suspension hydrocodone 5 mg-acetaminophen 325 1 tab PO BID PRN #5 tab 11/04/20 mg tablet Allergies Allergy/AdvReac Type Severity Reaction Status Date / Time mupirocin Allergy Unknown Verified 09/28/20 08:09 naproxen Allergy Unknown Verified 09/28/20 08:09 Penicillins Allergy Unknown SINCE Verified 09/28/20 08:09 CHILDHOOD droperidol AdvReac Unknown Verified 09/28/20 08:09 fenofibrate [FENOFIBRATE] AdvReac Unknown Verified 09/28/20 08:09 ibuprofen AdvReac Unknown NAUSEA Verified 09/28/20 08:09 metformin [METFORMIN] AdvReac Unknown Verified 09/28/20 08:09 metoclopramide AdvReac Unknown BECAME Verified 09/28/20 08:09 JITTERY AND ANXIOUS nitrofurantoin AdvReac Unknown NAUSEA Verified 09/28/20 08:09 Review of Systems Constitutional Constitutional: Reports system reviewed and no additional complaints, except as documented ENT Ears, Nose, Mouth, and Throat: Reports system reviewed and no additional complaints, except as documented Cardiovascular Cardiovascular: Reports system reviewed and no additional complaints, except as documented Respiratory Respiratory: Reports system reviewed and no additional complaints, except as documented Gastrointestinal Gastrointestinal: Reports as per HPI Genitourinary Genitourinary: Reports as per HPI Musculoskeletal Musculoskeletal: Reports as per HPI Integumentary/Breasts Skin/Breast: Reports system reviewed and no additional complaints, except as documented Neurologic Neurologic: Reports system reviewed and no additional complaints, except as documented Hematologic/Lymphatic On Anticoagulants: No Allergic/Immunologic Allergic/Immunologic: Reports system reviewed and no additional complaints, except as documented Patient History Medical History (Updated 11/04/20 @ 12:18 by Brenton Drew DO) Anxiety Closed fracture of left humerus Endometriosis Fibromyalgia Heart palpitations History of asthma History of chronic hypertension History of COPD History of depression History of gastrointestinal ulcer History of kidney stones History of migraine History of panic attacks History of type 2 diabetes mellitus Hyperlipidemia Interstitial cystitis UTI (urinary tract infection) Surgical History History of urostomy S/P appendectomy Status post hysterectomy Status post left rotator cuff repair Family History Mother Diabetes mellitus Lupus Social History household members: spouse Smoking Status: Current every day smoker alcohol intake: current Smoking Status: Current every day smoker tobacco type: cigarettes alcohol intake frequency: holidays/special occasions only Substance Use Type: former substance user and marijuana Exam Initial Vital Signs Initial Vital Signs: Vital Signs Temperature 97.3 F L 11/04/20 08:30 Pulse Rate 76 11/04/20 08:30 Respiratory Rate 16 11/04/20 08:30 Blood Pressure 152/87 H 11/04/20 08:30 Pulse Oximetry 100 11/04/20 08:30 Const General: cooperative HENMT Head: normal to inspection and normocephalic Eyes General: appearance normal, both eyes and all related structures Chest Chest: normal inspection of the chest Resp Effort & Inspection: normal respiratory effort Cardio Rate: regular rate GI Inspection: normal to inspection Back/Spine/Pelvis Back: CVA tenderness Skin General: no rashes or lesions noted Neuro General: patient alert, patient awake and moves all extremities Extrem General: capillary refill normal Psych Appearance: disheveled Course Orders Ordered: ED Orders 11/04/20 08:50 Urinalysis and Microscopic Stat Urine Culture Stat 11/04/20 09:22 Complete Blood Count AUTO DIFF Stat Comprehensive Metabolic Panel Stat Lipase Stat Procalcitonin Stat 11/04/20 10:02 Lactate (Lactic Acid) Stat Discontinued Medications Hydromorphone HCl (Hydromorphone 1 Mg Inj) 1 mg IV NOW ONE Stop: 11/04/20 09:05 Last Admin: 11/04/20 09:28 Dose: 1 mg Documented by: MAKSIM Ondansetron HCl (Ondansetron 4 Mg/2 Ml Inj) 4 mg IV NOW ONE Stop: 11/04/20 09:35 Last Admin: 11/04/20 09:58 Dose: 4 mg Documented by: MAKSIM Ondansetron HCl (Ondansetron 4 Mg/2 Ml Inj) 4 mg IV NOW ONE Stop: 11/04/20 09:35 Last Admin: 11/04/20 09:38 Dose: Not Given Documented by: MAKSIM Vital Signs Vital signs: Vital Signs - 8 hr 11/04/20 08:30 11/04/20 12:25 Temperature 97.3 F L Pulse Rate 76 86 Respiratory Rate 16 Blood Pressure 152/87 H 158/85 H Pulse Oximetry 100 99 Medical Decision Making Medical Records Medical records reviewed: Yes I reviewed the patient's medical records. Lab Data Lab results reviewed: Yes I reviewed the patient's lab results. Result diagrams: 11/04/20 09:22 11/04/20 09:22 Labs: Lab Results 11/04/20 11/04/20 11/04/20 Range/Units 08:50 09:22 09:22 WBC 6.7 (4.5-11.0) X10^3/uL RBC 3.42 L (4.0-5.2) X10^6/uL Hgb 11.5 L (12.0-16.0) g/dL Hct 34.3 L (36-46) % MCV 100.6 H (80-100) fL MCH 33.6 (26-34) PG MCHC 33.4 (30-36) % RDW 15.7 H (11.6-14.8) % Plt Count 330 (150-400) X10^3/uL Neut % (Auto) 68.5 (50-75) % Lymph % (Auto) 24.3 L (25-40) % Mcdonald % (Auto) 5.3 (3-14) % Eos % (Auto) 1.1 L (2-4) % Baso % (Auto) 0.8 (0-2) % Neut # (Auto) 4600 (8458-3501) /uL Lymph # (Auto) 1600 (3999-9825) /uL Mcdonald # (Auto) 400 (0-900) /uL Eos # (Auto) 100 (0-450) /uL Baso # (Auto) 100 (0-100) /uL Sodium 134 L (137-145) mmol/L Potassium 4.2 (3.4-5.1) mmol/L Chloride 105 (98-107) mmol/L Carbon Dioxide 19 L (22-32) mmol/L BUN 11 (7-17) mg/dL Creatinine 0.52 (0.52-1.04) mg/dL Estimated GFR > 60.0 (>60) mL/min BUN/Creatinine Ratio 21.2 (6-22) Glucose 268 H (70-100) mg/dL Lactate (0.7-2.1) mmol/L Calcium 9.1 (8.4-10.2) mg/dL Total Bilirubin 0.4 (0.2-1.3) mg/dL AST 23 (14-36) IU/L ALT 26 (<35) IU/L Alkaline Phosphatase 242 H (38-126) U/L Total Protein 7.1 (6.3-8.2) g/dL Albumin 3.6 (3.5-5.0) g/dL Globulin 3.5 (1.7-4.1) g/dL Albumin/Globulin Ratio 1.0 (1.0-2.8) Lipase < 10 L (23-300) U/L Procalcitonin (<0.5) ng/mL Urine Color Yellow Urine Appearance Clear Urine pH 7.0 (4.5-8.0) Ur Specific Bolt 1.010 (1.000-1.035) Urine Protein Trace H (Negative) Urine Glucose (UA) Negative (Negative) g/dL Urine Ketones Negative (NEGATIVE) Urine Occult Blood Trace-lysed (Negative) Urine Nitrate Positive H (Negative) Urine Bilirubin Negative (NEGATIVE) Urine Urobilinogen 0.2 (0.2) E.U./dL Ur Leukocyte Esterase Negative (NEGATIVE) Urine RBC None seen (0-5/HPF) Urine WBC 5-10/hpf H (0-5/HPF) Ur Squamous Epith Cells None seen (0-5/HPF) Urine Bacteria None seen (None) Ur Culture Indicated? Culture not indicate 11/04/20 11/04/20 Range/Units 09:22 10:02 WBC (4.5-11.0) X10^3/uL RBC (4.0-5.2) X10^6/uL Hgb (12.0-16.0) g/dL Hct (36-46) % MCV (80-100) fL MCH (26-34) PG MCHC (30-36) % RDW (11.6-14.8) % Plt Count (150-400) X10^3/uL Neut % (Auto) (50-75) % Lymph % (Auto) (25-40) % Mcdonald % (Auto) (3-14) % Eos % (Auto) (2-4) % Baso % (Auto) (0-2) % Neut # (Auto) (5959-0885) /uL Lymph # (Auto) (7435-3582) /uL Mcdonald # (Auto) (0-900) /uL Eos # (Auto) (0-450) /uL Baso # (Auto) (0-100) /uL Sodium (137-145) mmol/L Potassium (3.4-5.1) mmol/L Chloride (98-107) mmol/L Carbon Dioxide (22-32) mmol/L BUN (7-17) mg/dL Creatinine (0.52-1.04) mg/dL Estimated GFR (>60) mL/min BUN/Creatinine Ratio (6-22) Glucose (70-100) mg/dL Lactate 2.1 (0.7-2.1) mmol/L Calcium (8.4-10.2) mg/dL Total Bilirubin (0.2-1.3) mg/dL AST (14-36) IU/L ALT (<35) IU/L Alkaline Phosphatase (38-126) U/L Total Protein (6.3-8.2) g/dL Albumin (3.5-5.0) g/dL Globulin (1.7-4.1) g/dL Albumin/Globulin Ratio (1.0-2.8) Lipase (23-300) U/L Procalcitonin 0.08 (<0.5) ng/mL Urine Color Urine Appearance Urine pH (4.5-8.0) Ur Specific Bolt (1.000-1.035) Urine Protein (Negative) Urine Glucose (UA) (Negative) g/dL Urine Ketones (NEGATIVE) Urine Occult Blood (Negative) Urine Nitrate (Negative) Urine Bilirubin (NEGATIVE) Urine Urobilinogen (0.2) E.U./dL Ur Leukocyte Esterase (NEGATIVE) Urine RBC (0-5/HPF) Urine WBC (0-5/HPF) Ur Squamous Epith Cells (0-5/HPF) Urine Bacteria (None) Ur Culture Indicated? [facility] Narrative Medical decision making narrative: Patient has multiple chronic issues. Multiple chronic urinary tract infections and also pyelonephritis. Her labs today are very reassuring. I was able to review the notes from her last ED visit where she was admitted to the hospital and then left against medical advice. Her urinalysis today does not show any signs of infection. Her inflammatory markers are unremarkable. I feel given her situation and the on common bacteria that she does grow from her urine that switching her to a different antibiotic would not be caceres as it will most likely lead to further resistant bacteria. She has been on 4 days of Macrobid. She has an appoint with her primary doctor later today and also next week. I feel that much of her symptoms are her chronic pain issues as well. The feel we can hold on further workup now. No indication for admission to the hospital today. She was given return precautions and follow-up instructions. She expressed understanding and agreement. Discharge Plan Departure Patient Disposition: Home Clinical Impression: Acute left flank pain Activity Restrictions/Additional Instructions: If you can take a total of 5 days the Macrobid that would be ideal however if it is causing you to much issues you can stop it. Recommend that you keep all of your scheduled follow-up appointments with your primary doctor. Return to the emergency department for any new or worsening symptoms Prescriptions: New hydrocodone-acetaminophen 5-325 mg tablet 1 tab PO BID PRN (Reason: pain) Qty: 5 RF: 0 No Action hydroxyzine HCl 25 MG tablet 50 mg PO BID Qty: 0 RF: 0 albuterol sulfate [Proventil HFA] 90 MCG/PUFF HFA aerosol inhaler 2 puff INH Q4HP PRN (Reason: Shortness Of Breath) Qty: 0 RF: 0 gabapentin [Neurontin] 300 MG capsule 900 mg PO BID Qty: 0 RF: 0 multivitamin [Multiple Vitamins] 1 EACH tablet 1 tab PO DAILY Qty: 0 RF: 0 zolpidem [Ambien] 10 MG tablet 10 mg PO HS PRN (Reason: Insomnia) Qty: 0 RF: 0 lorazepam 0.5 mg tablet 0.5 mg PO BEDTIME RF: 0 methocarbamol 500 mg tablet 1,000 mg PO QID RF: 0 Humulin N NPH Insulin KwikPen 100 unit/mL (3 mL) insulin pen 15 unit SUBCUT BID RF: 0 quetiapine 100 mg Tablet 300 mg PO BEDTIME RF: 0 magnesium glycinate 100 mg Tablet 800 mg PO BEDTIME RF: 0 melatonin 10 mg Tablet 20 mg PO BEDTIME RF: 0 promethazine 25 mg suppository 25 mg OH Q4-6H PRN (Reason: nausea and vomiting) Qty: 12 RF: 0 prazosin 1 mg capsule 1 mg PO BEDTIME RF: 0 vitamin E 400 unit Tablet 400 unit PO DAILY RF: 0 docusate sodium 100 mg Capsule 100 mg PO DAILY RF: 0 cholecalciferol (vitamin D3) [Vitamin D3] 25 mcg (1,000 unit) Tablet 25 mcg PO DAILY RF: 0 ropinirole [Requip] 0.25 mg tablet 0.5 mg PO BEDTIME RF: 0 omeprazole 20 mg capsule,delayed release(DR/EC) 40 mg PO BID RF: 0 ondansetron 4 mg tablet,disintegrating 1 tab Translingual Q6H PRN (Reason: Nausea) RF: 0 Probiotic 1 tab PO DAILY RF: 0 promethazine 25 mg tablet 25 mg PO TID PRN (Reason: nausea and vomiting) Qty: 10 RF: 0 prochlorperazine maleate 10 mg tablet 10 mg PO Q6H PRN (Reason: Nausea) RF: 0 losartan 50 mg Tablet 50 mg PO DAILY Qty: 30 RF: 0 nystatin 100,000 unit/mL Suspension 500,000 unit PO QID Qty: 60 RF: 0 linezolid 600 mg tablet 600 mg PO Q12H Qty: 14 RF: 0 levofloxacin 500 mg tablet 500 mg PO DAILY Qty: 3 RF: 0 hydromorphone 2 mg tablet 2 mg PO Q6H Qty: 10 RF: 0 Referrals: Fadi Ko DO [Primary Care Provider] -
[2020-11-04 09:10] LABS: Squamous Epithelial Cell Urine None Seen (0-5/HPF); WBC Urine 5-10/HPF (0-5/HPF)
[2020-11-04] MEDS: HYDROMORPHONE 1 MG INJ IV (09:28)
[2020-11-04 09:38] LABS: Add Manual Diff / Slide Review NO; Basophils Absolute Auto 100 /uL (0-100); Basophils Percent Auto 0.8 % (0-2); Eosinophils Absolute Auto 100 /uL (0-450); Eosinophils Percent Auto 1.1 % (2-4); Hematocrit 34.3 % (36-46); Hemoglobin 11.5 g/dL (12.0-16.0); Lymphocytes Absolute Auto 1600 /uL (1100-4500); Lymphocytes Percent Auto 24.3 % (25-40); Mean Corpuscular HGB Conc 33.4 % (30-36); Mean Corpuscular Hemoglobin 33.6 PG (26-34); Mean Corpuscular Volume 100.6 fL (80-100); Monocytes Absolute Auto 400 /uL (0-900); Monocytes Percent Auto 5.3 % (3-14); Neutrophils Absolute Auto 4600 /uL (1500-7000); Neutrophils Percent Auto 68.5 % (50-75); Platelet Count 330 X10^3/uL (150-400); Red Blood Cell Count 3.42 X10^6/uL (4.0-5.2); Red Cell Distribution Width 15.7 % (11.6-14.8); White Blood Cell Count 6.7 X10^3/uL (4.5-11.0)
[2020-11-04 09:51] LABS: Alanine Aminotransferase 26 IU/L (<35); Albumin 3.6 g/dL (3.5-5.0); Alkaline Phosphatase 242 U/L (38-126); Aspartate Aminotransferase 23 IU/L (14-36); BUN Creatinine Ratio 21.2 (6-22); Bilirubin Total 0.4 mg/dL (0.2-1.3); Blood Urea Nitrogen 11 mg/dL (7-17); Calcium 9.1 mg/dL (8.4-10.2); Carbon Dioxide 19 mmol/L (22-32); Chloride 105 mmol/L (98-107); Estimated Glomerular Filt Rate > 60.0 mL/min (>60); Globulin 3.5 g/dL (1.7-4.1); Glucose 268 mg/dL (70-100); HEMOLYSIS < 15 (0-50); Lipase < 10 U/L (23-300); Potassium 4.2 mmol/L (3.4-5.1); Sodium 134 mmol/L (137-145); Total Protein 7.1 g/dL (6.3-8.2)
[2020-11-04] MEDS: ONDANSETRON 4 MG/2 ML INJ IV (09:58)
[2020-11-04 10:35] LABS: Lactate (Lactic Acid) 2.1 mmol/L (0.7-2.1)
--- NOTE | 2020-11-04 10:39 | PC.NURSE ---
Notified MD of increase in pain. Offered patient tylenol, patient declined. No new orders.
[2020-11-04 10:46] LABS: Procalcitonin 0.08 ng/mL (<0.5)
[2020-11-04 12:06] LABS: Reflexed Lactate in 2 Hours Y
[2020-11-04 12:25] VITALS: BP 158/85; PULSE 86; O2SAT 99
== END 2020-11-04 12:27 | disposition home or self-care (01) ==
PROVIDERS: Emergency Provider Emergency Medicine; PCP Family Medicine
DX: R10.9 Unspecified abdominal pain (principal); R11.2 Nausea with vomiting, unspecified
CPT/HCPCS: 36415; 80053; 81001; 83605; 83690; 84145; 85025; 87077; 87086; 87185; 87186; 96374; 96375; 99284; J1170; J2405

== ENCOUNTER → 2020-11-13 15:08 | Outpatient (CLI) | payer OTHER, SELFPAY ==
[2020-09-28 11:54] VITALS: BMI 18.3
--- NOTE | 2020-11-13 15:12 | DI.RAD.S_ITS ---
PROCEDURE: XR RIBS RT 2V INDICATIONS: RIB PAIN RIGHT SIDE TECHNIQUE: 2 views of the right ribs were acquired. COMPARISON: [facility], CR, XR CHEST 2V, 11/13/2020, 15:11. FINDINGS: Surgical changes and devices: None. Bones and chest wall: No acute displaced rib fracture, although images are mildly degraded by respiratory motion.. Mild chronic healed fracture deformity is seen in the right 7th rib. No suspicious bony lesions. Overlying soft tissues appear unremarkable. Lungs and pleura: The visualized lung appears clear. No pleural effusions or pneumothorax are visible. IMPRESSION: No acute displaced rib fracture given limitations related to respiratory motion. No pneumothorax. Chronic healed right 7th rib fracture. Dictated by: Ruiz Dallas M.D. on 11/13/2020 at 16:53 Approved by: Ruiz Dallas M.D. on 11/13/2020 at 16:55
--- NOTE | 2020-11-13 15:13 | DI.RAD.S_ITS ---
PROCEDURE: XR CHEST 2V INDICATIONS: RIB PAIN RIGHT SIDE TECHNIQUE: 2 views of the chest were acquired. COMPARISON: [facility], CR, XR RIBS LEFT WITH PA CHEST, 01/22/2020, 10:01. [facility], CR, XR CHEST 2V, 03/10/2020, 9:40. [facility], CR, XR RIBS RT 2V, 11/13/2020, 15:11. [facility], CR, XR CHEST 2 VIEWS, 10/28/2020, 15:13. [facility], CR, XR SHOULDER LT MIN 2V, 11/13/2020, 15:11. [facility], CR, XR CHEST 1V, 08/31/2020, 20:57. FINDINGS: Surgical changes and devices: None. Lungs and pleura: Lungs are clear. No pleural effusions or pneumothorax. Mediastinum: Mediastinal contours are normal. Heart size is normal. Bones and chest wall: No suspicious bony abnormalities. Soft tissues appear unremarkable. Chronic left humeral neck fracture again noted and surgical anchors are again seen. IMPRESSION: Mild interstitial prominence as was noted on prior examination No acute cardiopulmonary disease. Chronic healed right 7th posterior lateral rib fracture redemonstrated no definitive new acute fracture seen. Dictated by: Jemal Hwang Evan Interpreted: Garrett Ferreira MD on 11/13/2020 at 15:44 Transcribed by: GUDELIA on 11/13/2020 at 15:49 Approved by: Garrett Ferreira M.D. on 11/13/2020 at 17:15
--- NOTE | 2020-11-13 15:13 | DI.RAD.S_ITS ---
PROCEDURE: XR SHOULDER LT MIN 2V INDICATIONS: RIB PAIN RIGHT SIDE TECHNIQUE: 3 views of the shoulder were acquired. COMPARISON: [facility], CR, XR SHOULDER LT MIN 2V, 10/27/2019, 12:18. FINDINGS: Bones: Chronic fracture deformity involving the left proximal humerus. Two surgical anchors again seen in the anterior humerus. No fractures or dislocations. No suspicious bony lesions. Visualized ribs appear intact. Soft tissues: No suspicious soft tissue calcifications. IMPRESSION: Chronic fracture deformity involving the left proximal humerus. No acute osseous abnormality identified. Dictated by: Ruiz Dallas M.D. on 11/13/2020 at 15:54 Approved by: Ruiz Dallas M.D. on 11/13/2020 at 15:56
== END ==
PROVIDERS: PCP Family Medicine; Referring Provider Family Medicine; Visit Provider Family Medicine
DX: R07.81 Pleurodynia (principal); M25.512 Pain in left shoulder; M21.922 Unspecified acquired deformity of left upper arm; S42.202S Unspecified fracture of upper end of left humerus, sequela
CPT/HCPCS: 71046; 71100; 73030

== ENCOUNTER 2020-11-30 10:00 | Emergency (ER) | payer OTHER, SELFPAY ==
[2020-09-28 11:54] VITALS: BMI 18.3
[2020-11-30] VITALS (8 sets, daily range): BP systolic 120–149; BP diastolic 73–84; PULSE 76–95; RESP 18–22; TEMP 36.8; O2SAT 97–99; BMI 18.2
[2020-11-30 10:26] LABS: Bacteria Urine None Seen
[2020-11-30 10:38] LABS: Culture Indicated Urine Cult Not Indicated; RBC Urine 0-1/HPF (0-5/HPF); Squamous Epithelial Cell Urine 1-5 /HPF (0-5/HPF); WBC Urine 1-5/HPF (0-5/HPF)
[2020-11-30 11:03] LABS: Add Manual Diff / Slide Review NO; Basophils Absolute Auto 100 /uL (0-100); Basophils Percent Auto 0.8 % (0-2); Eosinophils Absolute Auto 0 /uL (0-450); Eosinophils Percent Auto 0.5 % (2-4); Hematocrit 34.8 % (36-46); Hemoglobin 11.7 g/dL (12.0-16.0); Lymphocytes Absolute Auto 1300 /uL (1100-4500); Lymphocytes Percent Auto 14.2 % (25-40); Mean Corpuscular HGB Conc 33.7 % (30-36); Mean Corpuscular Hemoglobin 33.9 PG (26-34); Mean Corpuscular Volume 100.6 fL (80-100); Monocytes Absolute Auto 400 /uL (0-900); Monocytes Percent Auto 4.6 % (3-14); Neutrophils Absolute Auto 7300 /uL (1500-7000); Neutrophils Percent Auto 79.9 % (50-75); Platelet Count 408 X10^3/uL (150-400); Red Blood Cell Count 3.46 X10^6/uL (4.0-5.2); Red Cell Distribution Width 14.4 % (11.6-14.8); White Blood Cell Count 9.1 X10^3/uL (4.5-11.0)
[2020-11-30 11:21] LABS: Lactate (Lactic Acid) 2.5 mmol/L (0.7-2.1)
[2020-11-30 11:23] LABS: Alanine Aminotransferase 16 IU/L (<35); Albumin 3.5 g/dL (3.5-5.0); Albumin Globulin Ratio 1.1 (1.0-2.8); Alkaline Phosphatase 151 U/L (38-126); Aspartate Aminotransferase 23 IU/L (14-36); BUN Creatinine Ratio 26.7 (6-22); Bilirubin Total 0.2 mg/dL (0.2-1.3); Blood Urea Nitrogen 12 mg/dL (7-17); Calcium 8.8 mg/dL (8.4-10.2); Carbon Dioxide 20 mmol/L (22-32); Chloride 108 mmol/L (98-107); Estimated Glomerular Filt Rate > 60.0 mL/min (>60); Globulin 3.1 g/dL (1.7-4.1); Glucose 157 mg/dL (70-100); HEMOLYSIS < 15 (0-50); Potassium 4.1 mmol/L (3.4-5.1); Sodium 136 mmol/L (137-145); Total Protein 6.6 g/dL (6.3-8.2)
[2020-11-30 11:25] LABS: Lipase < 10 U/L (23-300)
[2020-11-30 11:39] LABS: Procalcitonin 0.05 ng/mL (<0.5)
[2020-11-30] MEDS: SODIUM CHLORIDE 0.9% 1,000 ML 1000 ML IV (11:52)
--- NOTE | 2020-11-30 11:57 | ED_ITS ---
HPI - Sepsis General Chief Complaint: Urogenital-Female Mode of arrival: Ambulatory Source: patient and family Limitations: no limitations Evaluation Sepsis Screen: No Definite Risk Sepsis Infection Criteria Present: None Narrative: Patient is a 55-year-old female who has frequent UTIs she has a urostomy cystitis frequent pyelonephritis. She is followed by infectious disease and urology. Apparently she he has multi drug resistant no oral medications to treat any infection. Urology has stated previously there has been nothing to treat. She felt like she had a fever last night she may been nauseous symptoms similar to previous infections. Concerned that she may have infection again. Review of Systems Review of Systems Narrative: GENERAL: Denies chills, fatigue, malaise, fever, sweats, travel HEENT: Denies sinus pain, ear pain, sore throat, difficulty swallowing, neck pain RESPIRATORY: Denies dyspnea, cough, wheezing, hemoptysis, sputum. CARDIOVASCULAR: Denies chest pain, palpitations, orthopnea, edema GASTROINTESTINAL: Denies nausea, vomiting, abdominal pain, diarrhea, constipation, melena. : See HPI MUSCULOSKELETAL: Denies weakness, joint pain, or bony pain SKIN: No rash, no erythema, no pruritus NEUROLOGIC: Denies weakness, dizziness, headache, numbness, change in speech, confusion PSYCHIATRIC: No concerning psychosocial issues. 12 point review of systems is negative except for those stated above and HPI Patient History Medical History (Updated 11/30/20 @ 12:57 by Vivi Montoya DO) Anxiety Closed fracture of left humerus Endometriosis Fibromyalgia Heart palpitations History of asthma History of chronic hypertension History of COPD History of depression History of gastrointestinal ulcer History of kidney stones History of migraine History of panic attacks History of type 2 diabetes mellitus Hyperlipidemia Interstitial cystitis UTI (urinary tract infection) Surgical History History of urostomy S/P appendectomy Status post hysterectomy Status post left rotator cuff repair Family History Mother Diabetes mellitus Lupus Social History household members: spouse Smoking Status: Current every day smoker alcohol intake: current Smoking Status: Current every day smoker tobacco type: cigarettes alcohol intake frequency: holidays/special occasions only Substance Use Type: former substance user and marijuana Exam Initial Vital Signs Initial Vital Signs: Vital Signs Temperature 98.3 F 11/30/20 10:10 Pulse Rate 92 H 11/30/20 10:10 Respiratory Rate 18 11/30/20 10:10 Blood Pressure 149/81 H 11/30/20 10:10 Pulse Oximetry 99 11/30/20 10:10 GENERAL: Thin chronically ill 55-year-old female appears older than stated age HEENT: Head atraumatic,EOMI, pupils reactive, face symmetric, moist mucous membranes CARDIOVASCULAR: Regular rate and rhythm without murmurs, rubs or gallops. RESPIRATORY: Breath sounds equal bilaterally, no wheezes rales or rhonchi. ABDOMEN: Soft, nontender. Normoactive bowel sounds all 4 quadrants. No guarding or rebound. Urostomy present right lower quadrant urine is clear new bag no pus : No CVA tenderness EXTREMITIES: Normal range of motion, no clubbing or edema. Neurovascularly inta ct NEUROLOGICAL: Alert and oriented x4.Normal gait and speech. SKIN: Warm, dry, no laceration, no petechiae, no rashes or lesions. Course Orders Ordered: ED Orders 11/30/20 10:17 Urine Microscopic Stat 11/30/20 10:55 Complete Blood Count AUTO DIFF Stat Comprehensive Metabolic Panel Stat Lactate (Lactic Acid) Stat Lipase Stat Procalcitonin Stat 11/30/20 13:14 Blood Culture Stat Discontinued Medications Sodium Chloride (Normal Saline 0.9%) 1,000 mls @ 1,000 mls/hr IV BOLUS ONE Stop: 11/30/20 12:29 Last Infusion: 11/30/20 13:00 Dose: 0 mls/hr Documented by: Admin: 11/30/20 11:52 Dose: 1,000 mls/hr Documented by: CATERINA Vital Signs Vital signs: Vital Signs - 8 hr 11/30/20 10:10 11/30/20 10:13 11/30/20 10:30 Temperature 98.3 F Pulse Rate 92 H 94 H 95 H Respiratory Rate 18 22 22 Blood Pressure 149/81 H 149/81 H 134/78 Pulse Oximetry 99 99 98 11/30/20 11:00 11/30/20 11:30 11/30/20 12:00 Temperature Pulse Rate 94 H 81 81 Respiratory Rate 22 22 19 Blood Pressure 144/79 H 137/77 137/77 Pulse Oximetry 98 97 97 11/30/20 12:30 11/30/20 13:00 Temperature Pulse Rate 76 83 Respiratory Rate 21 20 Blood Pressure 148/84 H 120/73 Pulse Oximetry 98 99 MDM - Sepsis Lab Data Result diagrams: 11/30/20 10:55 11/30/20 10:55 Labs: Lab Results 11/30/20 11/30/20 11/30/20 Range/Units 10:17 10:55 10:55 WBC 9.1 (4.5-11.0) X10^3/uL RBC 3.46 L (4.0-5.2) X10^6/uL Hgb 11.7 L (12.0-16.0) g/dL Hct 34.8 L (36-46) % MCV 100.6 H (80-100) fL MCH 33.9 (26-34) PG MCHC 33.7 (30-36) % RDW 14.4 (11.6-14.8) % Plt Count 408 H (150-400) X10^3/uL Neut % (Auto) 79.9 H (50-75) % Lymph % (Auto) 14.2 L (25-40) % Whitfield % (Auto) 4.6 (3-14) % Eos % (Auto) 0.5 L (2-4) % Baso % (Auto) 0.8 (0-2) % Neut # (Auto) 7300 H (7529-6565) /uL Lymph # (Auto) 1300 (9185-6849) /uL Whitfield # (Auto) 400 (0-900) /uL Eos # (Auto) 0 (0-450) /uL Baso # (Auto) 100 (0-100) /uL Sodium 136 L (137-145) mmol/L Potassium 4.1 (3.4-5.1) mmol/L Chloride 108 H (98-107) mmol/L Carbon Dioxide 20 L (22-32) mmol/L BUN 12 (7-17) mg/dL Creatinine 0.45 L (0.52-1.04) mg/dL Estimated GFR > 60.0 (>60) mL/min BUN/Creatinine Ratio 26.7 H (6-22) Glucose 157 H (70-100) mg/dL Lactate (0.7-2.1) mmol/L Calcium 8.8 (8.4-10.2) mg/dL Total Bilirubin 0.2 (0.2-1.3) mg/dL AST 23 (14-36) IU/L ALT 16 (<35) IU/L Alkaline Phosphatase 151 H (38-126) U/L Total Protein 6.6 (6.3-8.2) g/dL Albumin 3.5 (3.5-5.0) g/dL Globulin 3.1 (1.7-4.1) g/dL Albumin/Globulin Ratio 1.1 (1.0-2.8) Lipase < 10 L (23-300) U/L Procalcitonin 0.05 (<0.5) ng/mL Urine RBC 0-1/hpf (0-5/HPF) Urine WBC 1-5/hpf (0-5/HPF) Ur Squamous Epith Cells 1-5 /hpf (0-5/HPF) Urine Bacteria None seen (None) Ur Culture Indicated? Cult not indicated 11/30/20 11/30/20 Range/Units 10:55 13:14 WBC (4.5-11.0) X10^3/uL RBC (4.0-5.2) X10^6/uL Hgb (12.0-16.0) g/dL Hct (36-46) % MCV (80-100) fL MCH (26-34) PG MCHC (30-36) % RDW (11.6-14.8) % Plt Count (150-400) X10^3/uL Neut % (Auto) (50-75) % Lymph % (Auto) (25-40) % Whitfield % (Auto) (3-14) % Eos % (Auto) (2-4) % Baso % (Auto) (0-2) % Neut # (Auto) (2776-9338) /uL Lymph # (Auto) (7090-7510) /uL Whitfield # (Auto) (0-900) /uL Eos # (Auto) (0-450) /uL Baso # (Auto) (0-100) /uL Sodium (137-145) mmol/L Potassium (3.4-5.1) mmol/L Chloride (98-107) mmol/L Carbon Dioxide (22-32) mmol/L BUN (7-17) mg/dL Creatinine (0.52-1.04) mg/dL Estimated GFR (>60) mL/min BUN/Creatinine Ratio (6-22) Glucose (70-100) mg/dL Lactate 2.5 H 1.4 (0.7-2.1) mmol/L Calcium (8.4-10.2) mg/dL Total Bilirubin (0.2-1.3) mg/dL AST (14-36) IU/L ALT (<35) IU/L Alkaline Phosphatase (38-126) U/L Total Protein (6.3-8.2) g/dL Albumin (3.5-5.0) g/dL Globulin (1.7-4.1) g/dL Albumin/Globulin Ratio (1.0-2.8) Lipase (23-300) U/L Procalcitonin (<0.5) ng/mL Urine RBC (0-5/HPF) Urine WBC (0-5/HPF) Ur Squamous Epith Cells (0-5/HPF) Urine Bacteria (None) Ur Culture Indicated? Urine Dip Bedside Urine Glucose Negative Bedside Urine Bilirubin - Negative Bedside Urine Ketone - Negative Urine Specific Gary 1.010 Bedside Urine Occult Blood +/- Bedside Urine pH 6.0 Bedside Urine Protein - Negative Bedside Urine Urobilinogen - Negative Bedside Urine Nitrite - Negative MDM Narrative Medical decision making narrative: Patient overall does not appear septic she actually appears pretty well compare to previous time vaccine her. Slightly elevated lactate 2.5 which resolved with 1 L of fluid. Urine is clear his no bacteria he does not have any drainage or pus from her ostomy site a afebrile without leukocytosis. At this time no infection. She certainly has multidrug resistant to prophylactic antibiotics. She overall feels good and would like to go home. Discharge Plan Departure Patient Disposition: Home Clinical Impression: Chronic interstitial cystitis Instructions: DI for Interstitial Cystitis Activity Restrictions/Additional Instructions: *You have been diagnosed with interstitial cystitis *What to do: Luckily at this time he did on any sign of infection. Urine looks clear and great. Please go enjoyed lunch. *Continue to take medications as directed *Follow up with your primary care provider in 2-3 days *Return to ER if you should have fever more than 100.4, increasing pain, confusion any new, worsening or concerning symptoms Prescriptions: No Action hydroxyzine HCl 25 MG tablet 50 mg PO BID Qty: 0 RF: 0 albuterol sulfate [Proventil HFA] 90 MCG/PUFF HFA aerosol inhaler 2 puff INH Q4HP PRN (Reason: Shortness Of Breath) Qty: 0 RF: 0 gabapentin [Neurontin] 300 MG capsule 900 mg PO BID Qty: 0 RF: 0 multivitamin [Multiple Vitamins] 1 EACH tablet 1 tab PO DAILY Qty: 0 RF: 0 zolpidem [Ambien] 10 MG tablet 10 mg PO HS PRN (Reason: Insomnia) Qty: 0 RF: 0 lorazepam 0.5 mg tablet 0.5 mg PO BEDTIME RF: 0 methocarbamol 500 mg tablet 1,000 mg PO QID RF: 0 Humulin N NPH Insulin KwikPen 100 unit/mL (3 mL) insulin pen 15 unit SUBCUT BID RF: 0 quetiapine 100 mg Tablet 300 mg PO BEDTIME RF: 0 magnesium glycinate 100 mg Tablet 800 mg PO BEDTIME RF: 0 melatonin 10 mg Tablet 20 mg PO BEDTIME RF: 0 promethazine 25 mg suppository 25 mg WI Q4-6H PRN (Reason: nausea and vomiting) Qty: 12 RF: 0 prazosin 1 mg capsule 1 mg PO BEDTIME RF: 0 vitamin E 400 unit Tablet 400 unit PO DAILY RF: 0 docusate sodium 100 mg Capsule 100 mg PO DAILY RF: 0 cholecalciferol (vitamin D3) [Vitamin D3] 25 mcg (1,000 unit) Tablet 25 mcg PO DAILY RF: 0 ropinirole [Requip] 0.25 mg tablet 0.5 mg PO BEDTIME RF: 0 hydrocodone-acetaminophen 5-325 mg tablet 1 tab PO BID PRN (Reason: pain) Qty: 5 RF: 0 omeprazole 20 mg capsule,delayed release(DR/EC) 40 mg PO BID RF: 0 ondansetron 4 mg tablet,disintegrating 1 tab Translingual Q6H PRN (Reason: Nausea) RF: 0 Probiotic 1 tab PO DAILY RF: 0 promethazine 25 mg tablet 25 mg PO TID PRN (Reason: nausea and vomiting) Qty: 10 RF: 0 prochlorperazine maleate 10 mg tablet 10 mg PO Q6H PRN (Reason: Nausea) RF: 0 losartan 50 mg Tablet 50 mg PO DAILY Qty: 30 RF: 0 nystatin 100,000 unit/mL Suspension 500,000 unit PO QID Qty: 60 RF: 0 linezolid 600 mg tablet 600 mg PO Q12H Qty: 14 RF: 0 levofloxacin 500 mg tablet 500 mg PO DAILY Qty: 3 RF: 0 hydromorphone 2 mg tablet 2 mg PO Q6H Qty: 10 RF: 0 Referrals: Fadi Ko DO [Primary Care Provider] -
[2020-11-30 13:00] LABS: Reflexed Lactate in 2 Hours Y
[2020-11-30 13:31] LABS: Lactate 2HR (Lactic Acid Rflx) 1.4 mmol/L (0.7-2.1)
== END 2020-11-30 13:18 | disposition home or self-care (01) ==
PROVIDERS: Emergency Provider Emergency Medicine; PCP Family Medicine
DX: N30.10 Interstitial cystitis (chronic) without hematuria (principal); R11.0 Nausea
CPT/HCPCS: 36415; 80053; 81003; 81015; 83605; 83690; 84145; 85025; 87040; 96360; 99284

== ENCOUNTER 2020-12-24 08:40 | Emergency (ER) | payer OTHER, SELFPAY ==
[2020-09-28 11:54] VITALS: BMI 18.3
[2020-12-24] VITALS (12 sets, daily range): BP systolic 161–195; BP diastolic 87–129; PULSE 79–92; RESP 26–66; TEMP 36.1; O2SAT 98–100
--- NOTE | 2020-12-24 08:51 | ED.ABDPAIN ---
HPI - Abdominal Pain General Chief Complaint: Urogenital-Female Stated Complaint: left kidney infection x3 days Time Seen by Provider: 12/24/20 08:44 History of Present Illness HPI narrative: ?55-year-old female daily smoker with complex medical history including diabetes, frequent UTI and pyelonephritis, fibromyalgia presents with a chief complaint of increasing left flank pain along with chills, nausea and vomiting over the past day or 2. She feels like she has pyelonephritis again. Her pain is severe, wraps around her left flank and is worse with motion and improves with rest. She is not dizzy nor weak or lightheaded, she admittedly feels quite anxious. She has had multiple episodes of vomiting including this morning. She has had no chest pain or trouble breathing. She has recently been in contact with providers at [facility] who have talked about placement of a port Related Data Home Medications Medication Instructions Recorded Confirmed albuterol sulfate 90 mcg/actuation 2 puff INH Q4HP PRN #0 01/08/13 09/28/20 aerosol inhaler (Proventil HFA) hydroxyzine HCl 25 mg tablet 50 mg PO BID #0 01/08/13 09/28/20 gabapentin 300 mg capsule 900 mg PO BID #0 07/04/17 09/28/20 (Neurontin) multivitamin (Multiple Vitamins) 1 tab PO DAILY #0 07/04/17 09/28/20 zolpidem 10 mg tablet (Ambien) 10 mg PO HS PRN #0 07/04/17 09/28/20 Probiotic 1 tab PO DAILY 09/26/17 09/28/20 omeprazole 20 mg capsule,delayed 40 mg PO BID 09/26/17 09/28/20 release ondansetron 4 mg disintegrating 1 tab TRANSLINGUAL Q6H PRN 09/26/17 09/28/20 tablet lorazepam 0.5 mg tablet 0.5 mg PO BEDTIME 05/30/18 09/28/20 insulin NPH isoph U-100 human 100 15 unit SUBCUT BID 05/17/19 09/28/20 unit/mL (3 mL) subcutaneous pen (Humulin N NPH U-100 Insulin KwikPen) methocarbamol 500 mg tablet 1,000 mg PO QID 05/17/19 09/28/20 quetiapine 100 mg tablet 300 mg PO BEDTIME 11/04/19 09/28/20 magnesium glycinate 100 mg tablet 800 mg PO BEDTIME 12/08/19 09/28/20 melatonin 10 mg tablet 20 mg PO BEDTIME 12/08/19 09/28/20 cholecalciferol (vitamin D3) 25 25 mcg PO DAILY 08/31/20 09/28/20 mcg (1,000 unit) tablet (Vitamin D3) docusate sodium 100 mg capsule 100 mg PO DAILY 08/31/20 09/28/20 prazosin 1 mg capsule 1 mg PO BEDTIME 08/31/20 09/28/20 ropinirole 0.25 mg tablet (Requip) 0.5 mg PO BEDTIME 08/31/20 09/28/20 vitamin E 400 unit tablet 400 unit PO DAILY 08/31/20 09/28/20 prochlorperazine maleate 10 mg 10 mg PO Q6H PRN 09/28/20 09/28/20 tablet Previous Rx's Medication Instructions Recorded promethazine 25 mg tablet 25 mg PO TID PRN #10 tab 04/16/20 promethazine 25 mg rectal 25 mg NC Q4-6H PRN #12 ea 04/19/20 suppository hydromorphone 2 mg tablet 2 mg PO Q6H #10 tab 09/30/20 levofloxacin 500 mg tablet 500 mg PO DAILY #3 tab 09/30/20 linezolid 600 mg tablet 600 mg PO Q12H #14 tab 09/30/20 losartan 50 mg tablet 50 mg PO DAILY #30 tab 09/30/20 nystatin 100,000 unit/mL oral 500,000 unit PO QID #60 ml 09/30/20 suspension hydrocodone 5 mg-acetaminophen 325 1 tab PO BID PRN #5 tab 11/04/20 mg tablet hydrocodone 5 mg-acetaminophen 325 1 tab PO Q4-6H PRN #10 tab 12/24/20 mg tablet nitrofurantoin 100 mg PO Q12H 7 Days #14 cap 12/24/20 monohydrate/macrocrystals 100 mg capsule (Macrobid) Allergies Allergy/AdvReac Type Severity Reaction Status Date / Time mupirocin Allergy Unknown Verified 12/24/20 10:02 naproxen Allergy Unknown Verified 12/24/20 10:02 Penicillins Allergy Unknown SINCE Verified 12/24/20 10:02 CHILDHOOD droperidol AdvReac Unknown Verified 12/24/20 10:02 fenofibrate [FENOFIBRATE] AdvReac Unknown Verified 12/24/20 10:02 ibuprofen AdvReac Unknown NAUSEA Verified 12/24/20 10:02 metformin [METFORMIN] AdvReac Unknown Verified 12/24/20 10:02 metoclopramide AdvReac Unknown BECAME Verified 12/24/20 10:02 JITTERY AND ANXIOUS nitrofurantoin AdvReac Unknown NAUSEA Verified 12/24/20 10:02 Review of Systems Review of Systems Narrative: GENERAL: See HPI. HEENT: Denies sinus pain, ear pain, sore throat, difficulty swallowing, dizziness. RESPIRATORY: Denies dyspnea, cough, wheezing, hemoptysis, sputum. CARDIOVASCULAR: Denies chest pain, palpitations, orthopnea, edema, GASTROINTESTINAL: See HPI : See HPI MUSCULOSKELETAL: denies weakness, joint pain, or bony pain SKIN: Denies rash, skin lesions, or other NEUROLOGIC: Denies weakness, headache, numbness, change in speech, confusion, seizures, incoordination. PSYCHIATRIC: No concerning psychosocial issues. 12 point review of systems is negative except for those stated above Patient History Medical History (Updated 12/24/20 @ 12:48 by Angeles Gerardo RN) Anxiety Closed fracture of left humerus Endometriosis Fibromyalgia Heart palpitations History of asthma History of chronic hypertension History of COPD History of depression History of gastrointestinal ulcer History of kidney stones History of migraine History of panic attacks History of type 2 diabetes mellitus Hyperlipidemia Interstitial cystitis UTI (urinary tract infection) Surgical History History of urostomy S/P appendectomy Status post hysterectomy Status post left rotator cuff repair Family History Mother Diabetes mellitus Lupus Social History household members: spouse Smoking Status: Current every day smoker alcohol intake: current Smoking Status: Current every day smoker tobacco type: cigarettes alcohol intake frequency: holidays/special occasions only Substance Use Type: former substance user and marijuana Exam Narrative Exam Narrative: GENERAL: [55 year old patient appears stated age. Well-developed patient, in obvious distress, tearful, crying, moaning in pain and clutching her left flank HEAD: Atraumatic. Normocephalic. EYES: Pupils equal round and reactive. Extraocular motions intact. No scleral icterus. No injection or drainage. ENT: Nose without bleeding, purulent drainage. Throat without erythema, tonsillar hypertrophy or exudate. Airway patent. NECK: Trachea midline. Non tender CARDIOVASCULAR: Regular rate and rhythm without murmurs, gallops, or rubs. RESPIRATORY: Clear to auscultation. Breath sounds equal bilaterally. No wheezes, rales, or rhonchi. GASTROINTESTINAL: Abdomen soft, tender in left flank and CVA EXTREMITIES: No edema or joint tenderness. BACK: Nontender without deformity or crepitance. No flank tenderness. NEURO: AOx3. SKIN: No rash or erythema of visible areas Initial Vital Signs Initial Vital Signs: Vital Signs Temperature 96.9 F L 12/24/20 09:01 Pulse Rate 92 H 12/24/20 09:01 Respiratory Rate 26 H 12/24/20 09:01 Blood Pressure 195/105 H 12/24/20 09:01 Pulse Oximetry 100 12/24/20 09:01 Course Orders Ordered: ED Orders 12/24/20 09:38 Complete Blood Count AUTO DIFF Stat Comprehensive Metabolic Panel Stat Lactate (Lactic Acid) Stat 12/24/20 09:45 CT abdomen pelvis w con Stat 12/24/20 09:50 Urinalysis and Microscopic Stat Urine Culture Stat 12/24/20 09:54 Blood Culture Stat Discontinued Medications Hydromorphone HCl (Hydromorphone 1 Mg Inj) 1 mg IV NOW ONE Stop: 12/24/20 08:48 Last Admin: 12/24/20 09:43 Dose: 1 mg Documented by: RSSANTOS Hydromorphone HCl (Hydromorphone 1 Mg Inj) 1 mg IV NOW ONE Stop: 12/24/20 10:53 Last Admin: 12/24/20 10:57 Dose: 1 mg Documented by: RSSANTOS Sodium Chloride (Normal Saline 0.9%) 1,000 mls @ 1,000 mls/hr IV BOLUS ONE Stop: 12/24/20 09:46 Last Admin: 12/24/20 09:30 Dose: Not Given Documented by: BELLAOTEM Levofloxacin (Levaquin) 500 mg in 100 mls @ 100 mls/hr IV NOW ONE Stop: 12/24/20 10:15 Last Infusion: 12/24/20 11:49 Dose: 0 mls/hr Documented by: Admin: 12/24/20 10:00 Dose: 100 mls/hr Documented by: RONALD Lactated Ringer's (Lactated Ringers) 1,524 mls @ 508 mls/hr 30 ml/kg infuse over 3 hr (1524 ml) IV NOW ONE Stop: 12/24/20 12:15 Last Infusion: 12/24/20 12:47 Dose: 0 mls/hr Documented by: Admin: 12/24/20 09:45 Dose: 508 mls/hr Documented by: RONALD Ondansetron HCl (Ondansetron 4 Mg/2 Ml Inj) 4 mg IV NOW ONE Stop: 12/24/20 08:48 Last Admin: 12/24/20 09:42 Dose: 4 mg Documented by: RONALD Reevaluation(s) Reevaluation #1: After above-stated therapies patient is feeling much better. She still a bit anxious but demanding to leave. I did discuss that she has largely reassuring labs including renal function and blood counts. Her CT scan is reassuring but I did discuss that she had an elevated lactate which can be concerning, particularly in the setting of infection. I requested that she stay until the repeat come back and she refused. When offered to call family or others she still demanded to leave, stating she understands the risks and does not care she just wants to leave. Vital Signs Vital signs: Vital Signs - 8 hr 12/24/20 09:30 12/24/20 09:32 12/24/20 10:00 Pulse Rate 79 79 80 Respiratory Rate 66 H 54 H 38 H Blood Pressure 174/96 H Pulse Oximetry 100 100 100 12/24/20 10:01 12/24/20 10:30 12/24/20 10:45 Pulse Rate 79 82 82 Respiratory Rate 36 H 32 H 37 H Blood Pressure 161/88 H 193/88 H 186/100 H Pulse Oximetry 100 100 100 12/24/20 11:00 12/24/20 11:22 12/24/20 11:30 Pulse Rate 81 79 82 Respiratory Rate 52 H 37 H 29 H Blood Pressure 182/98 H 187/87 H Pulse Oximetry 100 100 99 12/24/20 12:00 Pulse Rate 85 Respiratory Rate 33 H Blood Pressure 187/129 H Pulse Oximetry 98 MDM - Abdominal Pain Lab Data Result diagrams: 12/24/20 09:38 12/24/20 09:38 Labs: Lab Results 12/24/20 12/24/20 12/24/20 Range/Units 09:38 09:38 09:38 WBC 8.8 (4.5-11.0) X10^3/uL RBC 3.50 L (4.0-5.2) X10^6/uL Hgb 12.0 (12.0-16.0) g/dL Hct 35.4 L (36-46) % MCV 101.1 H (80-100) fL MCH 34.4 H (26-34) PG MCHC 34.0 (30-36) % RDW 13.7 (11.6-14.8) % Plt Count 386 (150-400) X10^3/uL Neut % (Auto) 66.4 (50-75) % Lymph % (Auto) 24.0 L (25-40) % [place] % (Auto) 7.1 (3-14) % Eos % (Auto) 1.6 L (2-4) % Baso % (Auto) 0.9 (0-2) % Neut # (Auto) 5800 (5756-4523) /uL Lymph # (Auto) 2100 (5848-2808) /uL [place] # (Auto) 600 (0-900) /uL Eos # (Auto) 100 (0-450) /uL Baso # (Auto) 100 (0-100) /uL Sodium 144 (137-145) mmol/L Potassium 3.7 (3.4-5.1) mmol/L Chloride 114 H (98-107) mmol/L Carbon Dioxide 21 L (22-32) mmol/L BUN 13 (7-17) mg/dL Creatinine 0.46 L (0.52-1.04) mg/dL Estimated GFR > 60.0 (>60) mL/min BUN/Creatinine Ratio 28.3 H (6-22) Glucose 76 (70-100) mg/dL Lactate 2.8 H (0.7-2.1) mmol/L Calcium 9.2 (8.4-10.2) mg/dL Total Bilirubin 0.3 (0.2-1.3) mg/dL AST 75 H (14-36) IU/L ALT 23 (<35) IU/L Alkaline Phosphatase 148 H (38-126) U/L Total Protein 7.1 (6.3-8.2) g/dL Albumin 3.7 (3.5-5.0) g/dL Globulin 3.4 (1.7-4.1) g/dL Albumin/Globulin Ratio 1.1 (1.0-2.8) Urine Color Urine Appearance Urine pH (4.5-8.0) Ur Specific Mill[place] (1.000-1.035) Urine Protein (Negative) Urine Glucose (UA) (Negative) g/dL Urine Ketones (NEGATIVE) Urine Occult Blood (Negative) Urine Nitrate (Negative) Urine Bilirubin (NEGATIVE) Urine Urobilinogen (0.2) E.U./dL Ur Leukocyte Esterase (NEGATIVE) Urine RBC (0-5/HPF) Urine WBC (0-5/HPF) Amorphous Sediment Urine Bacteria (None) Ur Culture Indicated? 12/24/20 12/24/20 Range/Units 09:50 12:00 WBC (4.5-11.0) X10^3/uL RBC (4.0-5.2) X10^6/uL Hgb (12.0-16.0) g/dL Hct (36-46) % MCV (80-100) fL MCH (26-34) PG MCHC (30-36) % RDW (11.6-14.8) % Plt Count (150-400) X10^3/uL Neut % (Auto) (50-75) % Lymph % (Auto) (25-40) % [place] % (Auto) (3-14) % Eos % (Auto) (2-4) % Baso % (Auto) (0-2) % Neut # (Auto) (5282-1228) /uL Lymph # (Auto) (8496-6824) /uL [place] # (Auto) (0-900) /uL Eos # (Auto) (0-450) /uL Baso # (Auto) (0-100) /uL Sodium (137-145) mmol/L Potassium (3.4-5.1) mmol/L Chloride (98-107) mmol/L Carbon Dioxide (22-32) mmol/L BUN (7-17) mg/dL Creatinine (0.52-1.04) mg/dL Estimated GFR (>60) mL/min BUN/Creatinine Ratio (6-22) Glucose (70-100) mg/dL Lactate 2.8 H (0.7-2.1) mmol/L Calcium (8.4-10.2) mg/dL Total Bilirubin (0.2-1.3) mg/dL AST (14-36) IU/L ALT (<35) IU/L Alkaline Phosphatase (38-126) U/L Total Protein (6.3-8.2) g/dL Albumin (3.5-5.0) g/dL Globulin (1.7-4.1) g/dL Albumin/Globulin Ratio (1.0-2.8) Urine Color Yellow Urine Appearance Sl cloudy Urine pH 6.5 (4.5-8.0) Ur Specific Mill[place] 1.010 (1.000-1.035) Urine Protein Negative (Negative) Urine Glucose (UA) Negative (Negative) g/dL Urine Ketones Negative (NEGATIVE) Urine Occult Blood Trace-intact (Negative) Urine Nitrate Positive H (Negative) Urine Bilirubin Negative (NEGATIVE) Urine Urobilinogen 0.2 (0.2) E.U./dL Ur Leukocyte Esterase Negative (NEGATIVE) Urine RBC 0-1/hpf (0-5/HPF) Urine WBC None seen (0-5/HPF) Amorphous Sediment 2+ Urine Bacteria Many (>30) H (None) Ur Culture Indicated? Specimen cultured Imaging Data CT scan - abdomen/pelvis: Radiologist's Impression: Melvi Gibbs??55??F??1965 ? Allergy/Adv: mupirocin, naproxen, Penicillins, droperidol, fenofibrate, ibuprofen, metformin, metoclopramide, nitrofurantoin (More??) Close Abdomen/Pelvis CT (Signed) Lencho Pierson - 12/24/20 Shoulder X-Ray (Signed) Ruiz Dallas - 11/13/20 Chest X-Ray (Signed) Garrett Ferreira - 11/13/20 Ribs X-Ray (Signed) Ruiz Dallas - 11/13/20 Renal Ultrasound (Signed) Akbar Ortiz - 09/29/20 Abdomen/Pelvis CT (Signed) Ayush Partida - 09/20/20 Chest X-Ray (Signed) Devon Garcia - 08/31/20 Abdomen/Pelvis CT (Signed) Akbar Ortiz - 08/31/20 Chest/Abdomen X-ray (Signed) Damion Bonner - 05/11/20 Chest X-Ray (Signed) Akbar Ortiz - 04/16/[address] (Signed) Tara Oshea - 04/08/20 Chest X-Ray (Signed) Jae Stringer - 03/10/20 Chest X-Ray (Signed) Anisha Solis - 03/07/20 Ribs X-Ray (Signed) Tara Oshea - 02/20/20 Chest X-Ray (Signed) Ayush Partida - 12/08/19 Abdomen/Pelvis CT (Signed) Jae Stringer - 11/04/19 Telemetry Strips 11/04/19 Chest X-Ray (Signed) Mary Carter - 11/04/19 Shoulder X-Ray (Signed) Damion Bonner - 10/27/19 Ribs X-Ray (Signed) Akbar Ortiz - 10/11/19 Shoulder X-Ray (Signed) Akbar Ortiz - 10/11/19 Foot X-Ray (Signed) Akbar Ortiz - 10/11/19 Telemetry Strips 08/27/19 Chest X-Ray (Signed) Akbar Ortiz - 08/27/19 Chest X-Ray (Signed) Ayush Partida - 08/19/19 Abdomen/Pelvis CT (Signed) Ayush Partida - 08/19/19 Chest CTA (Signed) Akbar Ortiz - 08/15/19 Chest X-Ray (Signed) Akbar Ortiz - 08/13/19 Chest X-Ray (Signed) Garrett Ferreira - 08/02/[address] (Signed) Akbar Ortiz - 07/17/[address] [address] [address] Scan Report Signed Patient: Melvi Gibbs MR#: [id number] : 1965 Acct:[id number] Age/Sex: 55 / F Date of Service: 12/24/20 Loc: ED Accession Number: [id number] ?? Procedure: CT abdomen pelvis w con Ordering Provider: Lyle Roman D.O. PROCEDURE:? CT ABDOMEN PELVIS W CON ? INDICATIONS:? severe right sided abdomen and flank pain ? TECHNIQUE:? After the administration of oral and IV contrast, axial sections were acquired from the lung bases to the pubic symphysis.? Coronal and sagittal reformats were performed.? For radiation dose reduction, the following was used:? automated exposure control, adjustment of mA and/or kV according to patient size. ? COMPARISON:? [facility], CT, CT ABDOMEN PELVIS W CON, 09/20/2020, 12:31. ? FINDINGS:? Image quality:? Excellent.? ? Lung bases:? Minimal dependent airspace opacity at the lung bases appear similar to the prior exams.? Favor scarring or atelectasis over pneumonia.? No pleural effusion.? Heart:? No significant findings. ? ? ABDOMEN: Liver:? No focal lesion. Gallbladder:? Surgically absent. Biliary ducts:? CBD measures 1 cm and tapers distally. The intrahepatic bile ducts are mildly prominent.? These findings are similar to prior exam. Pancreas:? Atrophic. Spleen:? Unremarkable.? ? Adrenal Glands:? No nodule. Kidneys and Ureters:? Symmetric enhancement.? Mild bilateral hydroureteronephrosis similar to 10/31/2020.? Ureteral conduit with right lower quadrant ureterostomy is similar in appearance.? Unchanged punctate nonobstructing left kidney stone. ? Stomach and Bowel:? No bowel obstruction.? Mildly prominent stool in the proximal and transverse colon.? Appendix is absent.? Calcification adjacent to the descending colon is unchanged and could be due to prior epiploic appendagitis. Peritoneum:? No abnormal intraperitoneal fluid.? No free air.? ? Ventral Wall: ? No hernia.? Ventral abdominal wall scar.? Abdominal Nodes:? No retroperitoneal or mesenteric adenopathy by size criteria.? Vessels:? Aorta and inferior vena cava are normal in size.? Extensive atherosclerotic plaque.? ? PELVIS: Pelvic Organs:? Uterus is absent.? ? Bladder:? Surgically absent.? ? Pelvic Nodes: No enlarged lymph nodes.? Multiple clips in the pelvis.? Miscellaneous: No definite inguinal hernias are seen. ? ? ? Bones:? No compression fracture.? ? ? IMPRESSION:? 1. Mild bilateral hydroureteronephrosis is similar to October 2020. ? 2. Ureteral conduit and right lower quadrant ureterostomy are similar in appearance. ? 3. Punctate nonobstructing left kidney stone. ? 4. No bowel obstruction.? No free fluid.? Dictated by: Lencho Pierson M.D. on 12/24/2020 at 11:22 ? ? Approved by: Lencho Pierson M.D. on 12/24/2020 at 11:38 ? Discharge Plan Departure Patient Disposition: Left Against Medical Advice Clinical Impression: Left against medical advice Prescriptions: New hydrocodone-acetaminophen 5-325 mg tablet 1 tab PO Q4-6H PRN (Reason: pain) Qty: 10 RF: 0 nitrofurantoin monohyd/m-cryst [Macrobid] 100 mg capsule 100 mg PO Q12H 7 Days Qty: 14 RF: 0 No Action hydroxyzine HCl 25 MG tablet 50 mg PO BID Qty: 0 RF: 0 albuterol sulfate [Proventil HFA] 90 MCG/PUFF HFA aerosol inhaler 2 puff INH Q4HP PRN (Reason: Shortness Of Breath) Qty: 0 RF: 0 gabapentin [Neurontin] 300 MG capsule 900 mg PO BID Qty: 0 RF: 0 multivitamin [Multiple Vitamins] 1 EACH tablet 1 tab PO DAILY Qty: 0 RF: 0 zolpidem [Ambien] 10 MG tablet 10 mg PO HS PRN (Reason: Insomnia) Qty: 0 RF: 0 lorazepam 0.5 mg tablet 0.5 mg PO BEDTIME RF: 0 methocarbamol 500 mg tablet 1,000 mg PO QID RF: 0 Humulin N NPH Insulin KwikPen 100 unit/mL (3 mL) insulin pen 15 unit SUBCUT BID RF: 0 quetiapine 100 mg Tablet 300 mg PO BEDTIME RF: 0 magnesium glycinate 100 mg Tablet 800 mg PO BEDTIME RF: 0 melatonin 10 mg Tablet 20 mg PO BEDTIME RF: 0 promethazine 25 mg suppository 25 mg NC Q4-6H PRN (Reason: nausea and vomiting) Qty: 12 RF: 0 prazosin 1 mg capsule 1 mg PO BEDTIME RF: 0 vitamin E 400 unit Tablet 400 unit PO DAILY RF: 0 docusate sodium 100 mg Capsule 100 mg PO DAILY RF: 0 cholecalciferol (vitamin D3) [Vitamin D3] 25 mcg (1,000 unit) Tablet 25 mcg PO DAILY RF: 0 ropinirole [Requip] 0.25 mg tablet 0.5 mg PO BEDTIME RF: 0 hydrocodone-acetaminophen 5-325 mg tablet 1 tab PO BID PRN (Reason: pain) Qty: 5 RF: 0 omeprazole 20 mg capsule,delayed release(DR/EC) 40 mg PO BID RF: 0 ondansetron 4 mg tablet,disintegrating 1 tab Translingual Q6H PRN (Reason: Nausea) RF: 0 Probiotic 1 tab PO DAILY RF: 0 promethazine 25 mg tablet 25 mg PO TID PRN (Reason: nausea and vomiting) Qty: 10 RF: 0 prochlorperazine maleate 10 mg tablet 10 mg PO Q6H PRN (Reason: Nausea) RF: 0 losartan 50 mg Tablet 50 mg PO DAILY Qty: 30 RF: 0 nystatin 100,000 unit/mL Suspension 500,000 unit PO QID Qty: 60 RF: 0 linezolid 600 mg tablet 600 mg PO Q12H Qty: 14 RF: 0 levofloxacin 500 mg tablet 500 mg PO DAILY Qty: 3 RF: 0 hydromorphone 2 mg tablet 2 mg PO Q6H Qty: 10 RF: 0 Referrals: Fadi Ko DO [Primary Care Provider] - Stand Alone Forms: Against Medical Advice
[2020-12-24 09:42] LABS: Add Manual Diff / Slide Review NO; Basophils Absolute Auto 100 /uL (0-100); Basophils Percent Auto 0.9 % (0-2); Eosinophils Absolute Auto 100 /uL (0-450); Eosinophils Percent Auto 1.6 % (2-4); Hematocrit 35.4 % (36-46); Lymphocytes Absolute Auto 2100 /uL (1100-4500); Mean Corpuscular Hemoglobin 34.4 PG (26-34); Mean Corpuscular Volume 101.1 fL (80-100); Monocytes Absolute Auto 600 /uL (0-900); Monocytes Percent Auto 7.1 % (3-14); Neutrophils Absolute Auto 5800 /uL (1500-7000); Neutrophils Percent Auto 66.4 % (50-75); Platelet Count 386 X10^3/uL (150-400); Red Cell Distribution Width 13.7 % (11.6-14.8); White Blood Cell Count 8.8 X10^3/uL (4.5-11.0)
[2020-12-24] MEDS: ONDANSETRON 4 MG/2 ML INJ IV (09:42)
--- NOTE | 2020-12-24 09:42 | PC.NURSE ---
DI nurse called for line placement. Placed 20g 2 catheter under ultrasound in left basilic vein, one attempt. Gee blood and sent it to lab. Nurse caring for pt notified. Unable to get enough for blood culture through filter device.
[2020-12-24] MEDS: HYDROMORPHONE 1 MG INJ IV ×2 (09:43→10:57)
[2020-12-24] MEDS: LACTATED RINGERS 508 ML IV (09:45)
--- NOTE | 2020-12-24 09:45 | DI.CT.S_ITS ---
PROCEDURE: CT ABDOMEN PELVIS W CON INDICATIONS: severe right sided abdomen and flank pain TECHNIQUE: After the administration of oral and IV contrast, axial sections were acquired from the lung bases to the pubic symphysis. Coronal and sagittal reformats were performed. For radiation dose reduction, the following was used: automated exposure control, adjustment of mA and/or kV according to patient size. COMPARISON: [facility], CT, CT ABDOMEN PELVIS W CON, 09/20/2020, 12:31. FINDINGS: Image quality: Excellent. Lung bases: Minimal dependent airspace opacity at the lung bases appear similar to the prior exams. Favor scarring or atelectasis over pneumonia. No pleural effusion. Heart: No significant findings. ABDOMEN: Liver: No focal lesion. Gallbladder: Surgically absent. Biliary ducts: CBD measures 1 cm and tapers distally. The intrahepatic bile ducts are mildly prominent. These findings are similar to prior exam. Pancreas: Atrophic. Spleen: Unremarkable. Adrenal Glands: No nodule. Kidneys and Ureters: Symmetric enhancement. Mild bilateral hydroureteronephrosis similar to 10/31/2020. Ureteral conduit with right lower quadrant ureterostomy is similar in appearance. Unchanged punctate nonobstructing left kidney stone. Stomach and Bowel: No bowel obstruction. Mildly prominent stool in the proximal and transverse colon. Appendix is absent. Calcification adjacent to the descending colon is unchanged and could be due to prior epiploic appendagitis. Peritoneum: No abnormal intraperitoneal fluid. No free air. Ventral Wall: No hernia. Ventral abdominal wall scar. Abdominal Nodes: No retroperitoneal or mesenteric adenopathy by size criteria. Vessels: Aorta and inferior vena cava are normal in size. Extensive atherosclerotic plaque. PELVIS: Pelvic Organs: Uterus is absent. Bladder: Surgically absent. Pelvic Nodes: No enlarged lymph nodes. Multiple clips in the pelvis. Miscellaneous: No definite inguinal hernias are seen. Bones: No compression fracture. IMPRESSION: 1. Mild bilateral hydroureteronephrosis is similar to October 2020. 2. Ureteral conduit and right lower quadrant ureterostomy are similar in appearance. 3. Punctate nonobstructing left kidney stone. 4. No bowel obstruction. No free fluid. Dictated by: Lencho Pierson M.D. on 12/24/2020 at 11:22 Approved by: Lencho Pierson M.D. on 12/24/2020 at 11:38
[2020-12-24 09:53] LABS: Lactate (Lactic Acid) 2.8 mmol/L (0.7-2.1)
[2020-12-24 09:54] LABS: Alanine Aminotransferase 23 IU/L (<35); Albumin 3.7 g/dL (3.5-5.0); Albumin Globulin Ratio 1.1 (1.0-2.8); Alkaline Phosphatase 148 U/L (38-126); Aspartate Aminotransferase 75 IU/L (14-36); BUN Creatinine Ratio 28.3 (6-22); Bilirubin Total 0.3 mg/dL (0.2-1.3); Blood Urea Nitrogen 13 mg/dL (7-17); Calcium 9.2 mg/dL (8.4-10.2); Carbon Dioxide 21 mmol/L (22-32); Chloride 114 mmol/L (98-107); Estimated Glomerular Filt Rate > 60.0 mL/min (>60); Globulin 3.4 g/dL (1.7-4.1); Glucose 76 mg/dL (70-100); HEMOLYSIS 27 (0-50); Potassium 3.7 mmol/L (3.4-5.1); Sodium 144 mmol/L (137-145); Total Protein 7.1 g/dL (6.3-8.2)
[2020-12-24] MEDS: levoFLOXacin 500 MG/100 ML PIGGYBACK 100 MG IV (10:00)
[2020-12-24 10:05] LABS: Appearance Urine UA SL CLOUDY; Bilirubin Urine UA NEGATIVE (NEGATIVE); Color Urine UA YELLOW; Glucose Urine UA NEGATIVE (Negative); Ketones Urine UA NEGATIVE (NEGATIVE); Leukocyte Esterase Urine UA NEGATIVE (NEGATIVE); Nitrite Urine UA POSITIVE (Negative); Occult Blood Urine UA TRACE-INTACT (Negative); Protein Urine UA NEGATIVE (Negative); Urobilinogen Urine UA 0.2 E.U./dL (0.2)
[2020-12-24 10:12] LABS: RBC Urine 0-1/HPF (0-5/HPF); WBC Urine None Seen (0-5/HPF); pH Urine UA 6.5 (4.5-8.0)
[2020-12-24 10:13] LABS: Amorphous Sediment Urine 2+; Bacteria Urine Many (>30); Culture Indicated Urine Specimen Cultured
[2020-12-24 11:38] LABS: Reflexed Lactate in 2 Hours Y
[2020-12-24 12:24] LABS: Lactate 2HR (Lactic Acid Rflx) 2.8 mmol/L (0.7-2.1)
[2020-12-25 10:04] LABS: Acinetobacter baumannii Not Detected (Not Detect); Candida albicans Not Detected (Not Detect); Candida glabrata Not Detected (Not Detect); Candida krusei Not Detected (Not Detect); Candida parapsilosis Not Detected (Not Detect); Candida tropicalis Not Detected (Not Detect); E. coli Not Detected (Not Detect); Enterobacter cloacae complex Not Detected (Not Detect); Enterobacteriaceae species Not Detected (Not Detect); Enterococcus species Not Detected (Not Detect); Haemophilus influenzae Not Detected (Not Detect); KPC (carbapenem-resist gene) Not Detected (Not Detect); Listeria monocytogenes Not Detected (Not Detect); Methicillin-resistant gene Not Detected (Not Detect); Neisseria meningitidis Not Detected (Not Detect); Proteus species Not Detected (Not Detect); Pseudomonas aeruginosa Not Detected (Not Detect); Serratia marcescens Not Detected (Not Detect); Staphylococcus species Detected (Not Detect); Streptococcus agalactiae (Gr B Not Detected (Not Detect); Streptococcus pneumonia Not Detected (Not Detect); Streptococcus pyogenes (Gr A) Not Detected (Not Detect); Streptococcus species Not Detected (Not Detect)
== END 2020-12-24 12:49 | disposition left against medical advice (07) ==
PROVIDERS: Emergency Provider Emergency Medicine; PCP Family Medicine
DX: R10.9 Unspecified abdominal pain (principal); R11.2 Nausea with vomiting, unspecified
CPT/HCPCS: 36415; 74177; 80053; 81001; 83605; 85025; 87040; 87077; 87086; 87150; 87186; 87205; 96361; 96365; 96366; 96375; 96376; 99284; 99285; J1170; J1956; J2405

== ENCOUNTER 2021-01-06 11:15 | Emergency (ER) | payer OTHER, SELFPAY ==
[2020-09-28 11:54] VITALS: BMI 18.3
[2021-01-06 11:18] VITALS: BP 111/66; PULSE 90; RESP 16; TEMP 36.4; O2SAT 97; BMI 18.2
--- NOTE | 2021-01-06 11:58 | ED.GENADULT ---
HPI - General Adult General Chief complaint: Urogenital-Female Stated complaint: WHOLE BODY PAIN Time Seen by Provider: 01/06/21 11:36 Source: patient Mode of arrival: Wheelchair History of Present Illness HPI narrative: Patient is a 55-year-old female. Well known to myself in this emergency department. Has multiple chronic medical issues. She comes the emergency department today because of a chief complaint of whole body pain. She states that is specifically on her left side. Per report a couple days ago she was at a outside facility. She has with her production support engineer today. Apparently at that time she became ?unresponsive? because of the pain that she was having. She had a workup at this outside facility. She was diagnosed with a ?infection? the initial plan was for her to be admitted to the hospital however there was going to be an extended period of time for this to happen because of the hospital being full. Per the patient's report she stated that she did not want to wait any longer so she left the department. She states that she left without any antibiotics. This was several days ago. She comes the emergency department today because of pain. Related Data Home Medications Medication Instructions Recorded Confirmed albuterol sulfate 90 mcg/actuation 2 puff INH Q4HP PRN #0 01/08/13 09/28/20 aerosol inhaler (Proventil HFA) hydroxyzine HCl 25 mg tablet 50 mg PO BID #0 01/08/13 09/28/20 gabapentin 300 mg capsule 900 mg PO BID #0 07/04/17 09/28/20 (Neurontin) multivitamin (Multiple Vitamins) 1 tab PO DAILY #0 07/04/17 09/28/20 zolpidem 10 mg tablet (Ambien) 10 mg PO HS PRN #0 07/04/17 09/28/20 Probiotic 1 tab PO DAILY 09/26/17 09/28/20 omeprazole 20 mg capsule,delayed 40 mg PO BID 09/26/17 09/28/20 release ondansetron 4 mg disintegrating 1 tab TRANSLINGUAL Q6H PRN 09/26/17 09/28/20 tablet lorazepam 0.5 mg tablet 0.5 mg PO BEDTIME 05/30/18 09/28/20 insulin NPH isoph U-100 human 100 15 unit SUBCUT BID 05/17/19 09/28/20 unit/mL (3 mL) subcutaneous pen (Humulin N NPH U-100 Insulin KwikPen) methocarbamol 500 mg tablet 1,000 mg PO QID 05/17/19 09/28/20 quetiapine 100 mg tablet 300 mg PO BEDTIME 11/04/19 09/28/20 magnesium glycinate 100 mg tablet 800 mg PO BEDTIME 12/08/19 09/28/20 melatonin 10 mg tablet 20 mg PO BEDTIME 12/08/19 09/28/20 cholecalciferol (vitamin D3) 25 25 mcg PO DAILY 08/31/20 09/28/20 mcg (1,000 unit) tablet (Vitamin D3) docusate sodium 100 mg capsule 100 mg PO DAILY 08/31/20 09/28/20 prazosin 1 mg capsule 1 mg PO BEDTIME 08/31/20 09/28/20 ropinirole 0.25 mg tablet (Requip) 0.5 mg PO BEDTIME 08/31/20 09/28/20 vitamin E 400 unit tablet 400 unit PO DAILY 08/31/20 09/28/20 prochlorperazine maleate 10 mg 10 mg PO Q6H PRN 09/28/20 09/28/20 tablet Previous Rx's Medication Instructions Recorded promethazine 25 mg tablet 25 mg PO TID PRN #10 tab 04/16/20 promethazine 25 mg rectal 25 mg NJ Q4-6H PRN #12 ea 04/19/20 suppository hydromorphone 2 mg tablet 2 mg PO Q6H #10 tab 09/30/20 levofloxacin 500 mg tablet 500 mg PO DAILY #3 tab 09/30/20 linezolid 600 mg tablet 600 mg PO Q12H #14 tab 09/30/20 losartan 50 mg tablet 50 mg PO DAILY #30 tab 09/30/20 nystatin 100,000 unit/mL oral 500,000 unit PO QID #60 ml 09/30/20 suspension hydrocodone 5 mg-acetaminophen 325 1 tab PO BID PRN #5 tab 11/04/20 mg tablet hydrocodone 5 mg-acetaminophen 325 1 tab PO Q4-6H PRN #10 tab 12/24/20 mg tablet Allergies Allergy/AdvReac Type Severity Reaction Status Date / Time mupirocin Allergy Unknown Verified 12/24/20 10:02 naproxen Allergy Unknown Verified 12/24/20 10:02 Penicillins Allergy Unknown SINCE Verified 12/24/20 10:02 CHILDHOOD droperidol AdvReac Unknown Verified 12/24/20 10:02 fenofibrate [FENOFIBRATE] AdvReac Unknown Verified 12/24/20 10:02 ibuprofen AdvReac Unknown NAUSEA Verified 12/24/20 10:02 metformin [METFORMIN] AdvReac Unknown Verified 12/24/20 10:02 metoclopramide AdvReac Unknown BECAME Verified 12/24/20 10:02 JITTERY AND ANXIOUS nitrofurantoin AdvReac Unknown NAUSEA Verified 12/24/20 10:02 Review of Systems Cardiovascular Comments: No chest pain Respiratory Comments: No shortness of breath Gastrointestinal Comments: Left flank pain Genitourinary Comments: Urostomy bag in place Musculoskeletal Comments: Pain all over her body Hematologic/Lymphatic On Anticoagulants: No Patient History Medical History Anxiety Closed fracture of left humerus Endometriosis Fibromyalgia Heart palpitations History of asthma History of chronic hypertension History of COPD History of depression History of gastrointestinal ulcer History of kidney stones History of migraine History of panic attacks History of type 2 diabetes mellitus Hyperlipidemia Interstitial cystitis UTI (urinary tract infection) Surgical History History of urostomy S/P appendectomy Status post hysterectomy Status post left rotator cuff repair Family History Mother Diabetes mellitus Lupus Social History household members: spouse Smoking Status: Current every day smoker alcohol intake: current Smoking Status: Current every day smoker tobacco type: cigarettes alcohol intake frequency: holidays/special occasions only Substance Use Type: former substance user and marijuana Exam Initial Vital Signs Initial Vital Signs: Vital Signs Temperature 97.6 F 01/06/21 11:18 Pulse Rate 90 01/06/21 11:18 Respiratory Rate 16 01/06/21 11:18 Blood Pressure 111/66 01/06/21 11:18 Pulse Oximetry 97 01/06/21 11:18 HENMT Head: normal to inspection and normocephalic Resp Effort & Inspection: normal respiratory effort Cardio Rate: regular rate GI Inspection: normal to inspection Palpation: soft and tender (Diffuse) Back/Spine/Pelvis Other: Left-sided flank pain Neuro General: patient alert, patient awake and moves all extremities Extrem General: normal to inspection Psych Appearance: disheveled Course Vital Signs Vital signs: Vital Signs - 8 hr 01/06/21 11:18 Temperature 97.6 F Pulse Rate 90 Respiratory Rate 16 Blood Pressure 111/66 Pulse Oximetry 97 Medical Decision Making MDM Narrative Medical decision making narrative: Attempted to receive records from outside facility however they were initially not available for review. Patient is afebrile. Not tachycardic. Appears baseline from my prior interactions with her. She is nontoxic appearing. I informed the patient that I would not be giving her opioid pain medication. Told her that we could treat her discomfort with Tylenol. Also informed her that we would check blood work to see whether not she is having any systemic infections. Prior to obtaining blood work patient stated that she no longer wanted to stay in the emergency department. She left under her own power. Was not given any discharge paperwork nor any discharge instructions nor did she sign any Against Medical Advice paperwork. Patient eloped. Discharge Plan Departure Patient Disposition: Left Against Medical Advice Clinical Impression: Patient left before treatment completed Prescriptions: No Action hydroxyzine HCl 25 MG tablet 50 mg PO BID Qty: 0 RF: 0 albuterol sulfate [Proventil HFA] 90 MCG/PUFF HFA aerosol inhaler 2 puff INH Q4HP PRN (Reason: Shortness Of Breath) Qty: 0 RF: 0 gabapentin [Neurontin] 300 MG capsule 900 mg PO BID Qty: 0 RF: 0 multivitamin [Multiple Vitamins] 1 EACH tablet 1 tab PO DAILY Qty: 0 RF: 0 zolpidem [Ambien] 10 MG tablet 10 mg PO HS PRN (Reason: Insomnia) Qty: 0 RF: 0 lorazepam 0.5 mg tablet 0.5 mg PO BEDTIME RF: 0 methocarbamol 500 mg tablet 1,000 mg PO QID RF: 0 Humulin N NPH Insulin KwikPen 100 unit/mL (3 mL) insulin pen 15 unit SUBCUT BID RF: 0 quetiapine 100 mg Tablet 300 mg PO BEDTIME RF: 0 magnesium glycinate 100 mg Tablet 800 mg PO BEDTIME RF: 0 melatonin 10 mg Tablet 20 mg PO BEDTIME RF: 0 promethazine 25 mg suppository 25 mg NJ Q4-6H PRN (Reason: nausea and vomiting) Qty: 12 RF: 0 prazosin 1 mg capsule 1 mg PO BEDTIME RF: 0 vitamin E 400 unit Tablet 400 unit PO DAILY RF: 0 docusate sodium 100 mg Capsule 100 mg PO DAILY RF: 0 cholecalciferol (vitamin D3) [Vitamin D3] 25 mcg (1,000 unit) Tablet 25 mcg PO DAILY RF: 0 ropinirole [Requip] 0.25 mg tablet 0.5 mg PO BEDTIME RF: 0 hydrocodone-acetaminophen 5-325 mg tablet 1 tab PO BID PRN (Reason: pain) Qty: 5 RF: 0 hydrocodone-acetaminophen 5-325 mg tablet 1 tab PO Q4-6H PRN (Reason: pain) Qty: 10 RF: 0 omeprazole 20 mg capsule,delayed release(DR/EC) 40 mg PO BID RF: 0 ondansetron 4 mg tablet,disintegrating 1 tab Translingual Q6H PRN (Reason: Nausea) RF: 0 Probiotic 1 tab PO DAILY RF: 0 promethazine 25 mg tablet 25 mg PO TID PRN (Reason: nausea and vomiting) Qty: 10 RF: 0 prochlorperazine maleate 10 mg tablet 10 mg PO Q6H PRN (Reason: Nausea) RF: 0 losartan 50 mg Tablet 50 mg PO DAILY Qty: 30 RF: 0 nystatin 100,000 unit/mL Suspension 500,000 unit PO QID Qty: 60 RF: 0 linezolid 600 mg tablet 600 mg PO Q12H Qty: 14 RF: 0 levofloxacin 500 mg tablet 500 mg PO DAILY Qty: 3 RF: 0 hydromorphone 2 mg tablet 2 mg PO Q6H Qty: 10 RF: 0 Referrals: Fadi Ko DO [Primary Care Provider] - Stand Alone Forms: Against Medical Advice
== END 2021-01-06 12:11 | disposition left against medical advice (07) ==
PROVIDERS: Emergency Provider Emergency Medicine; PCP Family Medicine
DX: R10.9 Unspecified abdominal pain (principal)
CPT/HCPCS: 99281

== ENCOUNTER 2021-01-14 06:06 | Emergency (ER) | payer OTHER, SELFPAY ==
[2020-09-28 11:54] VITALS: BMI 18.3
[2021-01-14] VITALS (12 sets, daily range): BP systolic 130–157; BP diastolic 71–90; PULSE 84–107; RESP 18–19; TEMP 36.2; O2SAT 91–99; BMI 18.6
--- NOTE | 2021-01-14 06:22 | ED_ITS ---
HPI - General Adult <Carolina Bonilla MD - Last Filed: 01/14/21 17:57> General Chief complaint: Abdominal Pain Stated complaint: nausea/kidney pain x2 days Time Seen by Provider: 01/14/21 06:22 History of Present Illness HPI narrative: 55-year-old woman with multiple chronic medical problems including diabetes, renal issues include cystectomy with urostomy and ureteroileal conduit frequent multi drug-resistant UTIs and pyelonephritis,chronic recurrent nausea and vomiting, multiple abdominal surgeries and small bowel obstructions who presents today with left flank pain reports of foul-smelling urine increasing urinary debris and significant nausea multi drug-resistant UTIs and pyelonephritis and recurrent flank pain as well as depression. She has an extensive SHERYL and alternates between [facility] in [facility]. [employer] shows multiple ED an inpatient providers providing small courses of oral pain medication. Chronic zolpidem and lorazepam prescriptions per her primary care providers. She has an appointment with Gastroenterology as an outpatient coming up in the middle of January for her recurrent episodes of nausea. She does continue to use marijuana. She denies chest pain palpitations, fevers or cough. She has a normal bowel movement this morning that she said did not influence her pain or nausea. She has not noticed any skin changes. Last hospital admission was to [facility] on December 31 for hematochezia, is significantly dehydrated with initial lactate in 3.4 range. Was rehydrated plan was for admission and endoscopy but patient left prior to that those interventions. , Related Data Home Medications Medication Instructions Recorded Confirmed albuterol sulfate 90 mcg/actuation 2 puff INH Q4HP PRN #0 01/08/13 09/28/20 aerosol inhaler (Proventil HFA) hydroxyzine HCl 25 mg tablet 50 mg PO BID #0 01/08/13 09/28/20 gabapentin 300 mg capsule 900 mg PO BID #0 07/04/17 09/28/20 (Neurontin) multivitamin (Multiple Vitamins) 1 tab PO DAILY #0 07/04/17 09/28/20 zolpidem 10 mg tablet (Ambien) 10 mg PO HS PRN #0 07/04/17 09/28/20 Probiotic 1 tab PO DAILY 09/26/17 09/28/20 omeprazole 20 mg capsule,delayed 40 mg PO BID 09/26/17 09/28/20 release ondansetron 4 mg disintegrating 1 tab TRANSLINGUAL Q6H PRN 09/26/17 09/28/20 tablet lorazepam 0.5 mg tablet 0.5 mg PO BEDTIME 05/30/18 09/28/20 insulin NPH isoph U-100 human 100 15 unit SUBCUT BID 05/17/19 09/28/20 unit/mL (3 mL) subcutaneous pen (Humulin N NPH U-100 Insulin KwikPen) methocarbamol 500 mg tablet 1,000 mg PO QID 05/17/19 09/28/20 quetiapine 100 mg tablet 300 mg PO BEDTIME 11/04/19 09/28/20 magnesium glycinate 100 mg tablet 800 mg PO BEDTIME 12/08/19 09/28/20 melatonin 10 mg tablet 20 mg PO BEDTIME 12/08/19 09/28/20 cholecalciferol (vitamin D3) 25 25 mcg PO DAILY 08/31/20 09/28/20 mcg (1,000 unit) tablet (Vitamin D3) docusate sodium 100 mg capsule 100 mg PO DAILY 08/31/20 09/28/20 prazosin 1 mg capsule 1 mg PO BEDTIME 08/31/20 09/28/20 ropinirole 0.25 mg tablet (Requip) 0.5 mg PO BEDTIME 08/31/20 09/28/20 vitamin E 400 unit tablet 400 unit PO DAILY 08/31/20 09/28/20 prochlorperazine maleate 10 mg 10 mg PO Q6H PRN 09/28/20 09/28/20 tablet Previous Rx's Medication Instructions Recorded promethazine 25 mg tablet 25 mg PO TID PRN #10 tab 04/16/20 promethazine 25 mg rectal 25 mg NV Q4-6H PRN #12 ea 04/19/20 suppository hydromorphone 2 mg tablet 2 mg PO Q6H #10 tab 09/30/20 levofloxacin 500 mg tablet 500 mg PO DAILY #3 tab 09/30/20 linezolid 600 mg tablet 600 mg PO Q12H #14 tab 09/30/20 losartan 50 mg tablet 50 mg PO DAILY #30 tab 09/30/20 nystatin 100,000 unit/mL oral 500,000 unit PO QID #60 ml 09/30/20 suspension hydrocodone 5 mg-acetaminophen 325 1 tab PO BID PRN #5 tab 11/04/20 mg tablet hydrocodone 5 mg-acetaminophen 325 1 tab PO Q4-6H PRN #10 tab 12/24/20 mg tablet nitrofurantoin 100 mg PO Q12H 7 Days #14 cap 01/14/21 monohydrate/macrocrystals 100 mg capsule (Macrobid) Allergies Allergy/AdvReac Type Severity Reaction Status Date / Time mupirocin Allergy Unknown Verified 12/24/20 10:02 naproxen Allergy Unknown Verified 12/24/20 10:02 Penicillins Allergy Unknown SINCE Verified 12/24/20 10:02 CHILDHOOD droperidol AdvReac Unknown Verified 12/24/20 10:02 fenofibrate [FENOFIBRATE] AdvReac Unknown Verified 12/24/20 10:02 ibuprofen AdvReac Unknown NAUSEA Verified 12/24/20 10:02 metformin [METFORMIN] AdvReac Unknown Verified 12/24/20 10:02 metoclopramide AdvReac Unknown BECAME Verified 12/24/20 10:02 JITTERY AND ANXIOUS nitrofurantoin AdvReac Unknown NAUSEA Verified 12/24/20 10:02 Review of Systems <Carolina Bonilla MD - Last Filed: 01/14/21 17:57> Review of Systems Narrative: Remainder of complete review of systems is otherwise unremarkable except for that included in the HPI. Patient History <Carolina Bonilla MD - Last Filed: 01/14/21 17:57> Medical History (Updated 01/14/21 @ 10:07 by Brenton Drew DO) Anxiety Closed fracture of left humerus Endometriosis Fibromyalgia Heart palpitations History of asthma History of chronic hypertension History of COPD History of depression History of gastrointestinal ulcer History of kidney stones History of migraine History of panic attacks History of type 2 diabetes mellitus Hyperlipidemia Interstitial cystitis UTI (urinary tract infection) Surgical History History of urostomy S/P appendectomy Status post hysterectomy Status post left rotator cuff repair Family History Mother Diabetes mellitus Lupus Social History household members: spouse Smoking Status: Current every day smoker alcohol intake: current Smoking Status: Current every day smoker tobacco type: cigarettes alcohol intake frequency: holidays/special occasions only Substance Use Type: former substance user and marijuana Exam <Carolina Bonilla MD - Last Filed: 01/14/21 17:57> Narrative Exam Narrative: General: Chronically ill-appearing, frail, dramatic affect of behavior ill to participate but needing help with details regarding medical history HEENT: Moist mucous membranes, normal sclera with reactive pupils, Respiratory: Lungs are clear to auscultation, no wheezing no rales no rhonchi. Full and symmetrical air movement Cardiac: Mild tachycardia with Regular rate and rhythm no murmurs no bruits Abdomen: Soft, tender in the epigastrium and left upper quadrant radiating around into the left flank without rebound or guarding. Normal bowel tones. Skin: Pale but well perfused, multiple small areas of skin irritation that do not appear to be infected. Neurologic: Grossly neurologically intact with no obvious asymmetries or abnormalities Extremities: No trauma, Psych: Frightened, anxious, poor overall insight with minimal coping skills Initial Vital Signs Initial Vital Signs: Vital Signs Temperature 97.1 F L 01/14/21 06:20 Pulse Rate 107 H 01/14/21 06:20 Respiratory Rate 19 01/14/21 06:20 Blood Pressure 157/80 H 01/14/21 06:20 Pulse Oximetry 97 01/14/21 06:20 <Brenton Drew DO - Last Filed: 01/14/21 16:05> Initial Vital Signs Initial Vital Signs: Vital Signs Temperature 97.1 F L 01/14/21 06:20 Pulse Rate 107 H 01/14/21 06:20 Respiratory Rate 19 01/14/21 06:20 Blood Pressure 157/80 H 01/14/21 06:20 Pulse Oximetry 97 01/14/21 06:20 Course <Carolina Bonilla MD - Last Filed: 01/14/21 17:57> Orders Ordered: ED Orders 01/14/21 06:49 Blood Culture Stat Discontinued Medications Sodium Chloride (Normal Saline 0.9%) 1,000 mls @ 1,000 mls/hr IV BOLUS ONE Stop: 01/14/21 07:47 Last Infusion: 01/14/21 09:52 Dose: Infused Documented by: Lorazepam (Lorazepam 2 Mg/Ml Inj) 1 mg IV NOW ONE Stop: 01/14/21 09:36 Last Admin: 01/14/21 09:45 Dose: 1 mg Documented by: Ondansetron HCl (Ondansetron 4 Mg/2 Ml Inj) 4 mg IV NOW ONE Stop: 01/14/21 09:04 Last Admin: 01/14/21 09:10 Dose: 4 mg Documented by: Vital Signs Vital signs: Vital Signs - 8 hr 01/14/21 10:00 Pulse Rate 86 Pulse Oximetry 99 <Brenton Drew DO - Last Filed: 01/14/21 16:05> Orders Ordered: ED Orders 01/14/21 06:49 Blood Culture Stat Discontinued Medications Sodium Chloride (Normal Saline 0.9%) 1,000 mls @ 1,000 mls/hr IV BOLUS ONE Stop: 01/14/21 07:47 Last Infusion: 01/14/21 09:52 Dose: Infused Documented by: Lorazepam (Lorazepam 2 Mg/Ml Inj) 1 mg IV NOW ONE Stop: 01/14/21 09:36 Last Admin: 01/14/21 09:45 Dose: 1 mg Documented by: Ondansetron HCl (Ondansetron 4 Mg/2 Ml Inj) 4 mg IV NOW ONE Stop: 01/14/21 09:04 Last Admin: 01/14/21 09:10 Dose: 4 mg Documented by: Vital Signs Vital signs: Vital Signs - 8 hr 01/14/21 10:00 Pulse Rate 86 Pulse Oximetry 99 Medical Decision Making <Carolina Bonilla MD - Last Filed: 01/14/21 17:57> Lab Data Result diagrams: 01/14/21 08:38 01/14/21 08:38 Labs: Lab Results 01/14/21 01/14/21 01/14/21 Range/Units 08:38 08:38 08:38 WBC 10.7 (4.5-11.0) X10^3/uL RBC 3.55 L (4.0-5.2) X10^6/uL Hgb 12.2 (12.0-16.0) g/dL Hct 36.0 (36-46) % MCV 101.4 H (80-100) fL MCH 34.4 H (26-34) PG MCHC 33.9 (30-36) % RDW 13.5 (11.6-14.8) % Plt Count 424 H (150-400) X10^3/uL Neut % (Auto) 73.1 (50-75) % Lymph % (Auto) 20.3 L (25-40) % [place] % (Auto) 4.8 (3-14) % Eos % (Auto) 0.7 L (2-4) % Baso % (Auto) 1.1 (0-2) % Neut # (Auto) 7900 H (9265-6706) /uL Lymph # (Auto) 2200 (0081-9173) /uL [place] # (Auto) 500 (0-900) /uL Eos # (Auto) 100 (0-450) /uL Baso # (Auto) 100 (0-100) /uL Sodium 138 (137-145) mmol/L Potassium 4.4 (3.4-5.1) mmol/L Chloride 106 (98-107) mmol/L Carbon Dioxide 24 (22-32) mmol/L BUN 15 (7-17) mg/dL Creatinine 0.55 (0.52-1.04) mg/dL Estimated GFR > 60.0 (>60) mL/min BUN/Creatinine Ratio 27.3 H (6-22) Glucose 87 (70-100) mg/dL Lactate 1.5 (0.7-2.1) mmol/L Calcium 9.0 (8.4-10.2) mg/dL Magnesium 1.9 (1.6-2.3) mg/dL Total Bilirubin 0.4 (0.2-1.3) mg/dL AST 29 (14-36) IU/L ALT 21 (<35) IU/L Alkaline Phosphatase 193 H (38-126) U/L Total Protein 7.4 (6.3-8.2) g/dL Albumin 3.9 (3.5-5.0) g/dL Globulin 3.5 (1.7-4.1) g/dL Albumin/Globulin Ratio 1.1 (1.0-2.8) Lipase 16 L (23-300) U/L Urine Color Urine Appearance Urine pH (4.5-8.0) Ur Specific [place] (1.000-1.035) Urine Protein (Negative) Urine Glucose (UA) (Negative) g/dL Urine Ketones (NEGATIVE) Urine Occult Blood (Negative) Urine Nitrate (Negative) Urine Bilirubin (NEGATIVE) Urine Urobilinogen (0.2) E.U./dL Ur Leukocyte Esterase (NEGATIVE) Urine RBC (0-5/HPF) Urine WBC (0-5/HPF) Ur Squamous Epith Cells (0-5/HPF) Urine Bacteria (None) Ur Culture Indicated? 01/14/21 Range/Units 08:47 WBC (4.5-11.0) X10^3/uL RBC (4.0-5.2) X10^6/uL Hgb (12.0-16.0) g/dL Hct (36-46) % MCV (80-100) fL MCH (26-34) PG MCHC (30-36) % RDW (11.6-14.8) % Plt Count (150-400) X10^3/uL Neut % (Auto) (50-75) % Lymph % (Auto) (25-40) % [place] % (Auto) (3-14) % Eos % (Auto) (2-4) % Baso % (Auto) (0-2) % Neut # (Auto) (4531-1163) /uL Lymph # (Auto) (8951-1581) /uL [place] # (Auto) (0-900) /uL Eos # (Auto) (0-450) /uL Baso # (Auto) (0-100) /uL Sodium (137-145) mmol/L Potassium (3.4-5.1) mmol/L Chloride (98-107) mmol/L Carbon Dioxide (22-32) mmol/L BUN (7-17) mg/dL Creatinine (0.52-1.04) mg/dL Estimated GFR (>60) mL/min BUN/Creatinine Ratio (6-22) Glucose (70-100) mg/dL Lactate (0.7-2.1) mmol/L Calcium (8.4-10.2) mg/dL Magnesium (1.6-2.3) mg/dL Total Bilirubin (0.2-1.3) mg/dL AST (14-36) IU/L ALT (<35) IU/L Alkaline Phosphatase (38-126) U/L Total Protein (6.3-8.2) g/dL Albumin (3.5-5.0) g/dL Globulin (1.7-4.1) g/dL Albumin/Globulin Ratio (1.0-2.8) Lipase (23-300) U/L Urine Color Yellow Urine Appearance Clear Urine pH 7.5 (4.5-8.0) Ur Specific [place] 1.010 (1.000-1.035) Urine Protein Negative (Negative) Urine Glucose (UA) Negative (Negative) g/dL Urine Ketones Negative (NEGATIVE) Urine Occult Blood Negative (Negative) Urine Nitrate Positive H (Negative) Urine Bilirubin Negative (NEGATIVE) Urine Urobilinogen 0.2 (0.2) E.U./dL Ur Leukocyte Esterase Negative (NEGATIVE) Urine RBC None seen (0-5/HPF) Urine WBC 1-5/hpf (0-5/HPF) Ur Squamous Epith Cells None seen (0-5/HPF) Urine Bacteria Moderate (10-30) H (None) Ur Culture Indicated? Culture not indicate <Brenton Drew DO - Last Filed: 01/14/21 16:05> Lab Data Labs: Lab Results 01/14/21 01/14/21 01/14/21 Range/Units 08:38 08:38 08:38 WBC 10.7 (4.5-11.0) X10^3/uL RBC 3.55 L (4.0-5.2) X10^6/uL Hgb 12.2 (12.0-16.0) g/dL Hct 36.0 (36-46) % MCV 101.4 H (80-100) fL MCH 34.4 H (26-34) PG MCHC 33.9 (30-36) % RDW 13.5 (11.6-14.8) % Plt Count 424 H (150-400) X10^3/uL Neut % (Auto) 73.1 (50-75) % Lymph % (Auto) 20.3 L (25-40) % [place] % (Auto) 4.8 (3-14) % Eos % (Auto) 0.7 L (2-4) % Baso % (Auto) 1.1 (0-2) % Neut # (Auto) 7900 H (8182-2204) /uL Lymph # (Auto) 2200 (2956-9340) /uL [place] # (Auto) 500 (0-900) /uL Eos # (Auto) 100 (0-450) /uL Baso # (Auto) 100 (0-100) /uL Sodium 138 (137-145) mmol/L Potassium 4.4 (3.4-5.1) mmol/L Chloride 106 (98-107) mmol/L Carbon Dioxide 24 (22-32) mmol/L BUN 15 (7-17) mg/dL Creatinine 0.55 (0.52-1.04) mg/dL Estimated GFR > 60.0 (>60) mL/min BUN/Creatinine Ratio 27.3 H (6-22) Glucose 87 (70-100) mg/dL Lactate 1.5 (0.7-2.1) mmol/L Calcium 9.0 (8.4-10.2) mg/dL Magnesium 1.9 (1.6-2.3) mg/dL Total Bilirubin 0.4 (0.2-1.3) mg/dL AST 29 (14-36) IU/L ALT 21 (<35) IU/L Alkaline Phosphatase 193 H (38-126) U/L Total Protein 7.4 (6.3-8.2) g/dL Albumin 3.9 (3.5-5.0) g/dL Globulin 3.5 (1.7-4.1) g/dL Albumin/Globulin Ratio 1.1 (1.0-2.8) Lipase 16 L (23-300) U/L Urine Color Urine Appearance Urine pH (4.5-8.0) Ur Specific [place] (1.000-1.035) Urine Protein (Negative) Urine Glucose (UA) (Negative) g/dL Urine Ketones (NEGATIVE) Urine Occult Blood (Negative) Urine Nitrate (Negative) Urine Bilirubin (NEGATIVE) Urine Urobilinogen (0.2) E.U./dL Ur Leukocyte Esterase (NEGATIVE) Urine RBC (0-5/HPF) Urine WBC (0-5/HPF) Ur Squamous Epith Cells (0-5/HPF) Urine Bacteria (None) Ur Culture Indicated? 01/14/21 Range/Units 08:47 WBC (4.5-11.0) X10^3/uL RBC (4.0-5.2) X10^6/uL Hgb (12.0-16.0) g/dL Hct (36-46) % MCV (80-100) fL MCH (26-34) PG MCHC (30-36) % RDW (11.6-14.8) % Plt Count (150-400) X10^3/uL Neut % (Auto) (50-75) % Lymph % (Auto) (25-40) % [place] % (Auto) (3-14) % Eos % (Auto) (2-4) % Baso % (Auto) (0-2) % Neut # (Auto) (1079-1270) /uL Lymph # (Auto) (5112-5927) /uL [place] # (Auto) (0-900) /uL Eos # (Auto) (0-450) /uL Baso # (Auto) (0-100) /uL Sodium (137-145) mmol/L Potassium (3.4-5.1) mmol/L Chloride (98-107) mmol/L Carbon Dioxide (22-32) mmol/L BUN (7-17) mg/dL Creatinine (0.52-1.04) mg/dL Estimated GFR (>60) mL/min BUN/Creatinine Ratio (6-22) Glucose (70-100) mg/dL Lactate (0.7-2.1) mmol/L Calcium (8.4-10.2) mg/dL Magnesium (1.6-2.3) mg/dL Total Bilirubin (0.2-1.3) mg/dL AST (14-36) IU/L ALT (<35) IU/L Alkaline Phosphatase (38-126) U/L Total Protein (6.3-8.2) g/dL Albumin (3.5-5.0) g/dL Globulin (1.7-4.1) g/dL Albumin/Globulin Ratio (1.0-2.8) Lipase (23-300) U/L Urine Color Yellow Urine Appearance Clear Urine pH 7.5 (4.5-8.0) Ur Specific [place] 1.010 (1.000-1.035) Urine Protein Negative (Negative) Urine Glucose (UA) Negative (Negative) g/dL Urine Ketones Negative (NEGATIVE) Urine Occult Blood Negative (Negative) Urine Nitrate Positive H (Negative) Urine Bilirubin Negative (NEGATIVE) Urine Urobilinogen 0.2 (0.2) E.U./dL Ur Leukocyte Esterase Negative (NEGATIVE) Urine RBC None seen (0-5/HPF) Urine WBC 1-5/hpf (0-5/HPF) Ur Squamous Epith Cells None seen (0-5/HPF) Urine Bacteria Moderate (10-30) H (None) Ur Culture Indicated? Culture not indicate MDM Narrative Medical decision making narrative: Dr drew: Received turned over. Reviewed patient's history and physical. The patient is well known to myself. Her labs today are very reassuring. No fever. Normal lactate. Normal white blood cell count. Patient is nontoxic appearing. She actually looks better today than when I saw her a couple weeks ago. Patient has chronic urinary tract infections her urinalysis today does appear to be infected as well. Prior cultures do s how a susceptibility to Macrobid. Patient states she is not allergic to Macrobid despite her allergies. Low suspicion for pyelo. Low suspicion for sepsis. No indication for admission to the hospital. Informed her that she does need to follow up with her primary doctor. She expressed understanding and agreement. Had a discussion with her and her . She has a referral to see Gastroenterology. She has recently seen her urologist. She does not see a set painter. We did discuss her marijuana use and potentially causing her nausea. Does not appear that she is using this in excess. She has nausea medication at home to include Phenergan and Zofran and also rectal Ph energan. She only has 1 tablet of Ativan at home but does have refills for this. Discharge Plan Departure Patient Disposition: Home Clinical Impression: UTI (urinary tract infection), Nausea and vomiting Instructions: DI for Urinary Tract Infection (UTI), DI for Nausea -- Adult Activity Restrictions/Additional Instructions: I do recommend that you make contact with your primary doctor. Continue all of your medications as directed. We will start you on a antibiotic called Macrobid as prior urine cultures show the bacteria susceptible to this. Return to the emergency department for any new or worsening symptoms Prescriptions: New nitrofurantoin monohyd/m-cryst [Macrobid] 100 mg capsule 100 mg PO Q12H 7 Days Qty: 14 RF: 0 No Action hydroxyzine HCl 25 MG tablet 50 mg PO BID Qty: 0 RF: 0 albuterol sulfate [Proventil HFA] 90 MCG/PUFF HFA aerosol inhaler 2 puff INH Q4HP PRN (Reason: Shortness Of Breath) Qty: 0 RF: 0 gabapentin [Neurontin] 300 MG capsule 900 mg PO BID Qty: 0 RF: 0 multivitamin [Multiple Vitamins] 1 EACH tablet 1 tab PO DAILY Qty: 0 RF: 0 zolpidem [Ambien] 10 MG tablet 10 mg PO HS PRN (Reason: Insomnia) Qty: 0 RF: 0 lorazepam 0.5 mg tablet 0.5 mg PO BEDTIME RF: 0 methocarbamol 500 mg tablet 1,000 mg PO QID RF: 0 Humulin N NPH Insulin KwikPen 100 unit/mL (3 mL) insulin pen 15 unit SUBCUT BID RF: 0 quetiapine 100 mg Tablet 300 mg PO BEDTIME RF: 0 magnesium glycinate 100 mg Tablet 800 mg PO BEDTIME RF: 0 melatonin 10 mg Tablet 20 mg PO BEDTIME RF: 0 promethazine 25 mg suppository 25 mg NV Q4-6H PRN (Reason: nausea and vomiting) Qty: 12 RF: 0 prazosin 1 mg capsule 1 mg PO BEDTIME RF: 0 vitamin E 400 unit Tablet 400 unit PO DAILY RF: 0 docusate sodium 100 mg Capsule 100 mg PO DAILY RF: 0 cholecalciferol (vitamin D3) [Vitamin D3] 25 mcg (1,000 unit) Tablet 25 mcg PO DAILY RF: 0 ropinirole [Requip] 0.25 mg tablet 0.5 mg PO BEDTIME RF: 0 hydrocodone-acetaminophen 5-325 mg tablet 1 tab PO BID PRN (Reason: pain) Qty: 5 RF: 0 hydrocodone-acetaminophen 5-325 mg tablet 1 tab PO Q4-6H PRN (Reason: pain) Qty: 10 RF: 0 omeprazole 20 mg capsule,delayed release(DR/EC) 40 mg PO BID RF: 0 ondansetron 4 mg tablet,disintegrating 1 tab Translingual Q6H PRN (Reason: Nausea) RF: 0 Probiotic 1 tab PO DAILY RF: 0 promethazine 25 mg tablet 25 mg PO TID PRN (Reason: nausea and vomiting) Qty: 10 RF: 0 prochlorperazine maleate 10 mg tablet 10 mg PO Q6H PRN (Reason: Nausea) RF: 0 losartan 50 mg Tablet 50 mg PO DAILY Qty: 30 RF: 0 nystatin 100,000 unit/mL Suspension 500,000 unit PO QID Qty: 60 RF: 0 linezolid 600 mg tablet 600 mg PO Q12H Qty: 14 RF: 0 levofloxacin 500 mg tablet 500 mg PO DAILY Qty: 3 RF: 0 hydromorphone 2 mg tablet 2 mg PO Q6H Qty: 10 RF: 0 Referrals: Fadi Ko DO [Primary Care Provider] -
[2021-01-14] MEDS: SODIUM CHLORIDE 0.9% 1,000 ML 1000 ML IV (08:45)
[2021-01-14 08:49] LABS: Add Manual Diff / Slide Review NO; Basophils Absolute Auto 100 /uL (0-100); Basophils Percent Auto 1.1 % (0-2); Eosinophils Absolute Auto 100 /uL (0-450); Eosinophils Percent Auto 0.7 % (2-4); Hemoglobin 12.2 g/dL (12.0-16.0); Lymphocytes Absolute Auto 2200 /uL (1100-4500); Lymphocytes Percent Auto 20.3 % (25-40); Mean Corpuscular HGB Conc 33.9 % (30-36); Mean Corpuscular Hemoglobin 34.4 PG (26-34); Mean Corpuscular Volume 101.4 fL (80-100); Monocytes Absolute Auto 500 /uL (0-900); Monocytes Percent Auto 4.8 % (3-14); Neutrophils Absolute Auto 7900 /uL (1500-7000); Neutrophils Percent Auto 73.1 % (50-75); Platelet Count 424 X10^3/uL (150-400); Red Blood Cell Count 3.55 X10^6/uL (4.0-5.2); Red Cell Distribution Width 13.5 % (11.6-14.8); White Blood Cell Count 10.7 X10^3/uL (4.5-11.0)
[2021-01-14 08:51] LABS: Appearance Urine UA CLEAR; Bilirubin Urine UA NEGATIVE (NEGATIVE); Color Urine UA YELLOW; Glucose Urine UA NEGATIVE (Negative); Ketones Urine UA NEGATIVE (NEGATIVE); Leukocyte Esterase Urine UA NEGATIVE (NEGATIVE); Nitrite Urine UA POSITIVE (Negative); Occult Blood Urine UA NEGATIVE (Negative); Protein Urine UA NEGATIVE (Negative); Urobilinogen Urine UA 0.2 E.U./dL (0.2); pH Urine UA 7.5 (4.5-8.0)
[2021-01-14 09:01] LABS: Lactate (Lactic Acid) 1.5 mmol/L (0.7-2.1)
[2021-01-14 09:02] LABS: Alanine Aminotransferase 21 IU/L (<35); Albumin 3.9 g/dL (3.5-5.0); Albumin Globulin Ratio 1.1 (1.0-2.8); Alkaline Phosphatase 193 U/L (38-126); Aspartate Aminotransferase 29 IU/L (14-36); BUN Creatinine Ratio 27.3 (6-22); Bilirubin Total 0.4 mg/dL (0.2-1.3); Blood Urea Nitrogen 15 mg/dL (7-17); Carbon Dioxide 24 mmol/L (22-32); Chloride 106 mmol/L (98-107); Estimated Glomerular Filt Rate > 60.0 mL/min (>60); Globulin 3.5 g/dL (1.7-4.1); Glucose 87 mg/dL (70-100); HEMOLYSIS 29 (0-50); Lipase 16 U/L (23-300); Magnesium 1.9 mg/dL (1.6-2.3); Potassium 4.4 mmol/L (3.4-5.1); Sodium 138 mmol/L (137-145); Total Protein 7.4 g/dL (6.3-8.2)
[2021-01-14] MEDS: ONDANSETRON 4 MG/2 ML INJ IV (09:10)
[2021-01-14 09:15] LABS: Bacteria Urine Moderate (10-30); RBC Urine None Seen (0-5/HPF); Squamous Epithelial Cell Urine None Seen (0-5/HPF); WBC Urine 1-5/HPF (0-5/HPF)
[2021-01-14] MEDS: LORazepam 2 MG/ML INJ 1 MG IV (09:45)
== END 2021-01-14 10:25 | disposition home or self-care (01) ==
PROVIDERS: Emergency Medicine; Emergency Provider Emergency Medicine; PCP Family Medicine
DX: N39.0 Urinary tract infection, site not specified (principal); R11.2 Nausea with vomiting, unspecified
CPT/HCPCS: 36415; 80053; 81001; 83605; 83690; 83735; 85025; 87040; 87077; 87086; 87186; 96361; 96374; 96375; 99284; J2060; J2405

== ENCOUNTER 2021-02-07 09:56 | Emergency (ER) | payer OTHER, SELFPAY ==
[2020-09-28 11:54] VITALS: BMI 18.3
[2021-02-07] VITALS (8 sets, daily range): BP systolic 148–182; BP diastolic 81–96; PULSE 92–110; RESP 17–22; TEMP 36.9; O2SAT 93–100
--- NOTE | 2021-02-07 10:06 | DI.RAD.S_ITS ---
PROCEDURE: XR CHEST 1V INDICATIONS: suspected sepsis TECHNIQUE: One view of the chest was acquired. COMPARISON: [facility], CR, XR CHEST 2V, 11/13/2020, 15:11. FINDINGS: Surgical changes and devices: Right-sided Port-A-Cath in place Lungs and pleura: Lungs are clear. No pleural effusions or pneumothorax. Mediastinum: Mediastinal contours appear normal. Heart size is normal. Bones and chest wall: No suspicious bony lesions. Overlying soft tissues appear unremarkable. Old healed right 7th rib fracture noted. IMPRESSION: No acute cardiopulmonary findings. Right Port-A-Cath in place. Approved by: Sergei Ovalles M.D. on 02/07/2021 at 11:40
[2021-02-07] MEDS: SODIUM CHLORIDE 0.9% 1,000 ML 1000 ML IV (10:10)
[2021-02-07] MEDS: ONDANSETRON 4 MG/2 ML INJ IV (10:10)
--- NOTE | 2021-02-07 10:16 | ED_ITS ---
HPI - Female Genitourinary General Chief complaint: Urogenital-Female Stated complaint: POSSIBLE INFECTION Time Seen by Provider: 02/07/21 10:16 Source: patient Mode of arrival: Ambulatory Limitations: no limitations History of Present Illness HPI Narrative: The patient has frequent visits to this facility. She has a past history of interstitial cystitis and urostomy. She he is here for in with pain issues, as well as GI discomfort. She had a port placed last week, simply for the need of frequent IV access. She woke last night with lower abdominal discomfort, and diarrhea. She has your output through the urostomy site. She denies URI symptoms. She does chest pain, cough dyspnea. She developed diarrhe a last night, along with severe lower abdominal cramping. She also complains of back pain. She is concerned about a kidney infection. She has no fever or chills. Related Data Home Medications Medication Instructions Recorded Confirmed albuterol sulfate 90 mcg/actuation 2 puff INH Q4HP PRN #0 01/08/13 09/28/20 aerosol inhaler (Proventil HFA) hydroxyzine HCl 25 mg tablet 50 mg PO BID #0 01/08/13 09/28/20 gabapentin 300 mg capsule 900 mg PO BID #0 07/04/17 09/28/20 (Neurontin) multivitamin (Multiple Vitamins) 1 tab PO DAILY #0 07/04/17 09/28/20 zolpidem 10 mg tablet (Ambien) 10 mg PO HS PRN #0 07/04/17 09/28/20 Probiotic 1 tab PO DAILY 09/26/17 09/28/20 omeprazole 20 mg capsule,delayed 40 mg PO BID 09/26/17 09/28/20 release ondansetron 4 mg disintegrating 1 tab TRANSLINGUAL Q6H PRN 09/26/17 09/28/20 tablet lorazepam 0.5 mg tablet 0.5 mg PO BEDTIME 05/30/18 09/28/20 insulin NPH isoph U-100 human 100 15 unit SUBCUT BID 05/17/19 09/28/20 unit/mL (3 mL) subcutaneous pen (Humulin N NPH U-100 Insulin KwikPen) methocarbamol 500 mg tablet 1,000 mg PO QID 05/17/19 09/28/20 quetiapine 100 mg tablet 300 mg PO BEDTIME 11/04/19 09/28/20 magnesium glycinate 100 mg tablet 800 mg PO BEDTIME 12/08/19 09/28/20 melatonin 10 mg tablet 20 mg PO BEDTIME 12/08/19 09/28/20 cholecalciferol (vitamin D3) 25 25 mcg PO DAILY 08/31/20 09/28/20 mcg (1,000 unit) tablet (Vitamin D3) docusate sodium 100 mg capsule 100 mg PO DAILY 08/31/20 09/28/20 prazosin 1 mg capsule 1 mg PO BEDTIME 08/31/20 09/28/20 ropinirole 0.25 mg tablet (Requip) 0.5 mg PO BEDTIME 08/31/20 09/28/20 vitamin E 400 unit tablet 400 unit PO DAILY 08/31/20 09/28/20 prochlorperazine maleate 10 mg 10 mg PO Q6H PRN 09/28/20 09/28/20 tablet Previous Rx's Medication Instructions Recorded promethazine 25 mg tablet 25 mg PO TID PRN #10 tab 04/16/20 promethazine 25 mg rectal 25 mg NC Q4-6H PRN #12 ea 04/19/20 suppository hydromorphone 2 mg tablet 2 mg PO Q6H #10 tab 09/30/20 levofloxacin 500 mg tablet 500 mg PO DAILY #3 tab 09/30/20 linezolid 600 mg tablet 600 mg PO Q12H #14 tab 09/30/20 losartan 50 mg tablet 50 mg PO DAILY #30 tab 09/30/20 nystatin 100,000 unit/mL oral 500,000 unit PO QID #60 ml 09/30/20 suspension hydrocodone 5 mg-acetaminophen 325 1 tab PO BID PRN #5 tab 11/04/20 mg tablet hydrocodone 5 mg-acetaminophen 325 1 tab PO Q4-6H PRN #10 tab 12/24/20 mg tablet cefdinir 300 mg capsule 300 mg PO BID 7 Days #14 cap 02/07/21 hydrocodone 5 mg-acetaminophen 325 1 tab PO Q6H PRN #10 tab 02/07/21 mg tablet Allergies Allergy/AdvReac Type Severity Reaction Status Date / Time mupirocin Allergy Unknown Verified 02/07/21 10:03 naproxen Allergy Unknown Verified 02/07/21 10:03 Penicillins Allergy Unknown SINCE Verified 02/07/21 10:03 CHILDHOOD droperidol AdvReac Unknown Verified 02/07/21 10:03 fenofibrate [FENOFIBRATE] AdvReac Unknown Verified 02/07/21 10:03 ibuprofen AdvReac Unknown NAUSEA Verified 02/07/21 10:03 metformin [METFORMIN] AdvReac Unknown Verified 02/07/21 10:03 metoclopramide AdvReac Unknown BECAME Verified 02/07/21 10:03 JITTERY AND ANXIOUS nitrofurantoin AdvReac Unknown NAUSEA Verified 02/07/21 10:03 Review of Systems Constitutional Constitutional: Reports body ache(s), Denies chills and Denies fever(s) Eyes Eyes: Denies blurry vision and Denies change in vision ENT Ears, Nose, Mouth, and Throat: Denies dizziness, Denies otalgia, Denies mouth lesions, Denies sinus pressure and Denies sore throat Cardiovascular Cardiovascular: Denies chest pain, Denies syncope, Denies rapid heart rate and Denies pedal edema Respiratory Respiratory: Denies chest congestion and Denies cough Gastrointestinal Gastrointestinal: Reports as per HPI Genitourinary Comments: Back pain, concern for urinary infection. No cloudy urine. No kaya turia. Musculoskeletal Musculoskeletal: Reports back pain Integumentary/Breasts Skin/Breast: Denies lesions and Denies rash Neurologic Neurologic: Denies dizziness and Denies syncope Psychiatric Comments: Agitated. Appears to be in pain. Patient History Medical History Anxiety Closed fracture of left humerus Endometriosis Fibromyalgia Heart palpitations History of asthma History of chronic hypertension History of COPD History of depression History of gastrointestinal ulcer History of kidney stones History of migraine History of panic attacks History of type 2 diabetes mellitus Hyperlipidemia Interstitial cystitis UTI (urinary tract infection) Surgical History History of urostomy S/P appendectomy Status post hysterectomy Status post left rotator cuff repair Family History Mother Diabetes mellitus Lupus tobacco type: cigarettes alcohol intake frequency: holidays/special occasions only Substance Use Type: former substance user and marijuana Exam Initial Vital Signs Initial Vital Signs: Vital Signs Temperature 98.4 F 02/07/21 10:00 Pulse Rate 110 H 11/13/21 10:00 Respiratory Rate 22 02/07/21 10:00 Blood Pressure 182/93 H 02/07/21 10:00 Pulse Oximetry 99 02/07/21 10:00 Const General: cooperative, disheveled and frail appearing [facility] Head: normocephalic and atraumatic Mouth: oral mucosae normal Neck Neck: normal visual inspection and No lymphadenopathy Resp Auscultation: clear to auscultation bilaterally Cardio Rate: regular rate Rhythm: regular rhythm Heart Sounds: S1 normal, S2 normal and no murmurs GI Inspection: normal to inspection Palpation: soft, No guarding and tender (Suprapubic tenderness without distention or guarding.) Auscultation: normal bowel sounds Back/Spine/Pelvis Back: CVA tenderness left Skin General: no rashes or lesions noted Neuro General: patient alert, patient awake, patient oriented x3 and no focal motor deficits Speech: speech normal Gait: normal gait Extrem General: full ROM and no calf tenderness Psych Speech and Movement: agitated and speech clear Course Course Course Narrative: The patient has multiple presentations here with severe pain. Low-dose ketamine was given, this had impressive benefits for short period of time. The dose was repeated, but again wore off. She was given Rocephin for UTI here in the ER and, discharged on antibiotics. She has a small dose of No rco available for pain, she has follow-up with a PCM next week. Orders Ordered: ED Orders 02/07/21 10:06 XR chest 1V Stat EKG-12 Lead Stat RT Consult Eval and Treat Now 02/07/21 10:15 Complete Blood Count AUTO DIFF Stat Comprehensive Metabolic Panel Stat Lactate (Lactic Acid) Stat Lipase Stat Procalcitonin Stat 02/07/21 10:21 Urinalysis and Microscopic Stat Urine Culture Stat 02/07/21 11:15 Blood Culture Stat Discontinued Medications Hydrocodone Bitart/Acetaminophen (Hydrocodone/Acet 5/325 Tablet) 1 tab PO NOW ONE Stop: 02/07/21 13:12 Last Admin: 02/07/21 13:17 Dose: 1 tab Documented by: CATERINA Heparin Sodium (Porcine) (Heparin 500 Unit/5 Ml Port Flush) 500 unit IV PRN PRN PRN Reason: Flush Last Admin: 02/07/21 13:17 Dose: 500 unit Documented by: CATERINA Sodium Chloride (Normal Saline 0.9%) 1,000 mls @ 1,000 mls/hr IV BOLUS ONE Stop: 02/07/21 11:05 Last Infusion: 02/07/21 11:54 Dose: 0 mls/hr Documented by: Admin: 02/07/21 10:10 Dose: 1,000 mls/hr Documented by: GRUPO Ceftriaxone Sodium 1,000 mg/ (Sodium Chloride) 100 mls @ 200 mls/hr IV NOW ONE Stop: 02/07/21 11:12 Last Infusion: 02/07/21 12:11 Dose: 0 mls/hr Documented by: Admin: 02/07/21 11:35 Dose: 200 mls/hr Documented by: CATERINA Lorazepam (Lorazepam 2 Mg/Ml Inj) 1 mg 0.02 mg/kg (1 mg) IV NOW ONE Stop: 02/07/21 10:52 Last Admin: 02/07/21 11:02 Dose: 1 mg Documented by: CATERINA Ondansetron HCl (Ondansetron 4 Mg/2 Ml Inj) 4 mg IV NOW ONE Stop: 02/07/21 10:07 Last Admin: 02/07/21 10:10 Dose: 4 mg Documented by: GRUPO Vital Signs Vital signs: Vital Signs - 8 hr 02/07/21 10:00 02/07/21 10:02 02/07/21 11:37 Temperature 98.4 F Pulse Rate 110 H 110 H 98 H Respiratory Rate 22 17 Blood Pressure 182/93 H 182/93 H Pulse Oximetry 99 95 95 02/07/21 11:38 02/07/21 11:41 02/07/21 12:00 Temperature Pulse Rate 94 H 97 H 92 H Respiratory Rate 18 20 Blood Pressure 157/86 H 148/81 H 163/87 H Pulse Oximetry 96 96 100 02/07/21 12:30 02/07/21 13:00 Temperature Pulse Rate 94 H 93 H Respiratory Rate 22 18 Blood Pressure 154/96 H Pulse Oximetry 99 93 MDM - Female Genitourinary Lab Data Result diagrams: 02/07/21 10:15 02/07/21 10:15 Labs: Lab Results 02/07/21 02/07/21 02/07/21 Range/Units 10:15 10:15 10:15 WBC 12.4 H (4.5-11.0) X10^3/uL RBC 3.53 L (4.0-5.2) X10^6/uL Hgb 11.9 L (12.0-16.0) g/dL Hct 36.0 (36-46) % MCV 102.0 H (80-100) fL MCH 33.8 (26-34) PG MCHC 33.2 (30-36) % RDW 13.8 (11.6-14.8) % Plt Count 398 (150-400) X10^3/uL Neut % (Auto) 77.1 H (50-75) % Lymph % (Auto) 17.1 L (25-40) % [place] % (Auto) 4.8 (3-14) % Eos % (Auto) 0.4 L (2-4) % Baso % (Auto) 0.6 (0-2) % Neut # (Auto) 9500 H (7332-0970) /uL Lymph # (Auto) 2100 (0252-5314) /uL [place] # (Auto) 600 (0-900) /uL Eos # (Auto) 100 (0-450) /uL Baso # (Auto) 100 (0-100) /uL Sodium 135 L (137-145) mmol/L Potassium 4.2 (3.4-5.1) mmol/L Chloride 109 H (98-107) mmol/L Carbon Dioxide 19 L (22-32) mmol/L BUN 11 (7-17) mg/dL Creatinine 0.51 L (0.52-1.04) mg/dL Estimated GFR > 60.0 (>60) mL/min BUN/Creatinine Ratio 21.6 (6-22) Glucose 197 H (70-100) mg/dL Lactate 1.4 (0.7-2.1) mmol/L Calcium 9.3 (8.4-10.2) mg/dL Total Bilirubin 0.2 (0.2-1.3) mg/dL AST 23 (14-36) IU/L ALT 15 (<35) IU/L Alkaline Phosphatase 176 H (38-126) U/L Total Protein 7.0 (6.3-8.2) g/dL Albumin 3.6 (3.5-5.0) g/dL Globulin 3.4 (1.7-4.1) g/dL Albumin/Globulin Ratio 1.1 (1.0-2.8) Lipase 14 L (23-300) U/L Procalcitonin 0.29 (<0.5) ng/mL Urine Color Urine Appearance Urine pH (4.5-8.0) Ur Specific [place] (1.000-1.035) Urine Protein (Negative) Urine Glucose (UA) (Negative) g/dL Urine Ketones (NEGATIVE) Urine Occult Blood (Negative) Urine Nitrate (Negative) Urine Bilirubin (NEGATIVE) Urine Urobilinogen (0.2) E.U./dL Ur Leukocyte Esterase (NEGATIVE) Urine RBC (0-5/HPF) Urine WBC (0-5/HPF) Ur Squamous Epith Cells (0-5/HPF) Urine Bacteria (None) Ur Culture Indicated? 02/07/21 Range/Units 10:21 WBC (4.5-11.0) X10^3/uL RBC (4.0-5.2) X10^6/uL Hgb (12.0-16.0) g/dL Hct (36-46) % MCV (80-100) fL MCH (26-34) PG MCHC (30-36) % RDW (11.6-14.8) % Plt Count (150-400) X10^3/uL Neut % (Auto) (50-75) % Lymph % (Auto) (25-40) % [place] % (Auto) (3-14) % Eos % (Auto) (2-4) % Baso % (Auto) (0-2) % Neut # (Auto) (4459-3320) /uL Lymph # (Auto) (4577-0260) /uL [place] # (Auto) (0-900) /uL Eos # (Auto) (0-450) /uL Baso # (Auto) (0-100) /uL Sodium (137-145) mmol/L Potassium (3.4-5.1) mmol/L Chloride (98-107) mmol/L Carbon Dioxide (22-32) mmol/L BUN (7-17) mg/dL Creatinine (0.52-1.04) mg/dL Estimated GFR (>60) mL/min BUN/Creatinine Ratio (6-22) Glucose (70-100) mg/dL Lactate (0.7-2.1) mmol/L Calcium (8.4-10.2) mg/dL Total Bilirubin (0.2-1.3) mg/dL AST (14-36) IU/L ALT (<35) IU/L Alkaline Phosphatase (38-126) U/L Total Protein (6.3-8.2) g/dL Albumin (3.5-5.0) g/dL Globulin (1.7-4.1) g/dL Albumin/Globulin Ratio (1.0-2.8) Lipase (23-300) U/L Procalcitonin (<0.5) ng/mL Urine Color Yellow Urine Appearance Sl cloudy Urine pH 7.0 (4.5-8.0) Ur Specific [place] 1.010 (1.000-1.035) Urine Protein Trace H (Negative) Urine Glucose (UA) Negative (Negative) g/dL Urine Ketones Negative (NEGATIVE) Urine Occult Blood Trace-intact (Negative) Urine Nitrate Positive H (Negative) Urine Bilirubin Negative (NEGATIVE) Urine Urobilinogen 0.2 (0.2) E.U./dL Ur Leukocyte Esterase Trace H (NEGATIVE) Urine RBC 5-10/hpf H (0-5/HPF) Urine WBC 10-30/hpf H (0-5/HPF) Ur Squamous Epith Cells 0-1 /hpf (0-5/HPF) Urine Bacteria Moderate (10-30) H (None) Ur Culture Indicated? Specimen cultured Imaging Data Chest x-ray: Radiologist's Impression: No acute cardiopulmonary process identified. ECG Data Attestation: I personally reviewed and interpreted this ECG as follows: ( Normal sinus rhythm rate 98 beats per minute. Bilateral enlargement. poor R- wave progression in the anterior leads. No acute ST T wave changes.) Discharge Plan Departure Patient Disposition: Home Clinical Impression: UTI (urinary tract infection) Qualifiers: Urinary tract infection type: acute cystitis Hematuria presence: without hematuria Qualified Code(s): N30.00 - Acute cystitis without hematuria Abdominal pain Qualifiers: Abdominal location: periumbilical Qualified Code(s): R10.33 - Periumbilical pain Instructions: DI for Urinary Tract Infection (UTI) Activity Restrictions/Additional Instructions: Cefdinir 300 mg 2 times daily for 7 days. This is likely a new antibiotic for you, but looking at past urine cultures this should be effective. The prescription has been forwarded to [facility]'s pharmacy. Continue current medications. Be sure you drink plenty of fluids. Follow-up with your doctor regarding ongoing pain management. Prescriptions: New cefdinir 300 mg capsule 300 mg PO BID 7 Days Qty: 14 RF: 0 hydrocodone-acetaminophen 5-325 mg tablet 1 tab PO Q6H PRN (Reason: pain) Qty: 10 RF: 0 No Action hydroxyzine HCl 25 MG tablet 50 mg PO BID Qty: 0 RF: 0 albuterol sulfate [Proventil HFA] 90 MCG/PUFF HFA aerosol inhaler 2 puff INH Q4HP PRN (Reason: Shortness Of Breath) Qty: 0 RF: 0 gabapentin [Neurontin] 300 MG capsule 900 mg PO BID Qty: 0 RF: 0 multivitamin [Multiple Vitamins] 1 EACH tablet 1 tab PO DAILY Qty: 0 RF: 0 zolpidem [Ambien] 10 MG tablet 10 mg PO HS PRN (Reason: Insomnia) Qty: 0 RF: 0 lorazepam 0.5 mg tablet 0.5 mg PO BEDTIME RF: 0 methocarbamol 500 mg tablet 1,000 mg PO QID RF: 0 Humulin N NPH Insulin KwikPen 100 unit/mL (3 mL) insulin pen 15 unit SUBCUT BID RF: 0 quetiapine 100 mg Tablet 300 mg PO BEDTIME RF: 0 magnesium glycinate 100 mg Tablet 800 mg PO BEDTIME RF: 0 melatonin 10 mg Tablet 20 mg PO BEDTIME RF: 0 promethazine 25 mg suppository 25 mg NC Q4-6H PRN (Reason: nausea and vomiting) Qty: 12 RF: 0 prazosin 1 mg capsule 1 mg PO BEDTIME RF: 0 vitamin E 400 unit Tablet 400 unit PO DAILY RF: 0 docusate sodium 100 mg Capsule 100 mg PO DAILY RF: 0 cholecalciferol (vitamin D3) [Vitamin D3] 25 mcg (1,000 unit) Tablet 25 mcg PO DAILY RF: 0 ropinirole [Requip] 0.25 mg tablet 0.5 mg PO BEDTIME RF: 0 hydrocodone-acetaminophen 5-325 mg tablet 1 tab PO BID PRN (Reason: pain) Qty: 5 RF: 0 hydrocodone-acetaminophen 5-325 mg tablet 1 tab PO Q4-6H PRN (Reason: pain) Qty: 10 RF: 0 omeprazole 20 mg capsule,delayed release(DR/EC) 40 mg PO BID RF: 0 ondansetron 4 mg tablet,disintegrating 1 tab Translingual Q6H PRN (Reason: Nausea) RF: 0 Probiotic 1 tab PO DAILY RF: 0 promethazine 25 mg tablet 25 mg PO TID PRN (Reason: nausea and vomiting) Qty: 10 RF: 0 prochlorperazine maleate 10 mg tablet 10 mg PO Q6H PRN (Reason: Nausea) RF: 0 losartan 50 mg Tablet 50 mg PO DAILY Qty: 30 RF: 0 nystatin 100,000 unit/mL Suspension 500,000 unit PO QID Qty: 60 RF: 0 linezolid 600 mg tablet 600 mg PO Q12H Qty: 14 RF: 0 levofloxacin 500 mg tablet 500 mg PO DAILY Qty: 3 RF: 0 hydromorphone 2 mg tablet 2 mg PO Q6H Qty: 10 RF: 0 Referrals: Fadi Ko DO [Primary Care Provider] -
[2021-02-07 10:35] LABS: Add Manual Diff / Slide Review NO; Basophils Absolute Auto 100 /uL (0-100); Basophils Percent Auto 0.6 % (0-2); Eosinophils Absolute Auto 100 /uL (0-450); Eosinophils Percent Auto 0.4 % (2-4); Hemoglobin 11.9 g/dL (12.0-16.0); Lymphocytes Absolute Auto 2100 /uL (1100-4500); Lymphocytes Percent Auto 17.1 % (25-40); Mean Corpuscular HGB Conc 33.2 % (30-36); Mean Corpuscular Hemoglobin 33.8 PG (26-34); Monocytes Absolute Auto 600 /uL (0-900); Monocytes Percent Auto 4.8 % (3-14); Neutrophils Absolute Auto 9500 /uL (1500-7000); Neutrophils Percent Auto 77.1 % (50-75); Platelet Count 398 X10^3/uL (150-400); Red Blood Cell Count 3.53 X10^6/uL (4.0-5.2); Red Cell Distribution Width 13.8 % (11.6-14.8); White Blood Cell Count 12.4 X10^3/uL (4.5-11.0)
[2021-02-07 10:47] LABS: Alanine Aminotransferase 15 IU/L (<35); Albumin 3.6 g/dL (3.5-5.0); Albumin Globulin Ratio 1.1 (1.0-2.8); Alkaline Phosphatase 176 U/L (38-126); Aspartate Aminotransferase 23 IU/L (14-36); BUN Creatinine Ratio 21.6 (6-22); Bilirubin Total 0.2 mg/dL (0.2-1.3); Blood Urea Nitrogen 11 mg/dL (7-17); Calcium 9.3 mg/dL (8.4-10.2); Carbon Dioxide 19 mmol/L (22-32); Chloride 109 mmol/L (98-107); Estimated Glomerular Filt Rate > 60.0 mL/min (>60); Globulin 3.4 g/dL (1.7-4.1); Glucose 197 mg/dL (70-100); HEMOLYSIS < 15 (0-50); Lactate (Lactic Acid) 1.4 mmol/L (0.7-2.1); Lipase 14 U/L (23-300); Potassium 4.2 mmol/L (3.4-5.1); Sodium 135 mmol/L (137-145)
[2021-02-07 10:51] LABS: Appearance Urine UA SL CLOUDY; Bilirubin Urine UA NEGATIVE (NEGATIVE); Color Urine UA YELLOW; Glucose Urine UA NEGATIVE (Negative); Ketones Urine UA NEGATIVE (NEGATIVE); Leukocyte Esterase Urine UA TRACE (NEGATIVE); Nitrite Urine UA POSITIVE (Negative); Occult Blood Urine UA TRACE-INTACT (Negative); Protein Urine UA TRACE (Negative); Urobilinogen Urine UA 0.2 E.U./dL (0.2)
[2021-02-07] MEDS: LORazepam 2 MG/ML INJ 1 MG IV (11:02)
[2021-02-07 11:04] LABS: Procalcitonin 0.29 ng/mL (<0.5)
[2021-02-07 11:07] LABS: Bacteria Urine Moderate (10-30); Culture Indicated Urine Specimen Cultured; RBC Urine 5-10/HPF (0-5/HPF); Squamous Epithelial Cell Urine 0-1 /HPF (0-5/HPF); WBC Urine 10-30/HPF (0-5/HPF)
[2021-02-07] MEDS: KETAMINE 50 MG/5 ML *SYRINGE 15 MG IV ×2 (11:34→12:19)
[2021-02-07] MEDS: cefTRIAXone 1,000 MG in SODIUM CHLORIDE 0.9% 100 ML 200 ML IV (11:35)
[2021-02-07] MEDS: HYDROCODONE/ACET 5/325 TABLET 1 TAB PO (13:17)
== END 2021-02-07 13:23 | disposition home or self-care (01) ==
PROVIDERS: Emergency Provider Emergency Medicine; PCP Family Medicine
DX: N30.00 Acute cystitis without hematuria (principal); R10.33 Periumbilical pain; I10 Essential (primary) hypertension; F17.210 Nicotine dependence, cigarettes, uncomplicated
CPT/HCPCS: 36415; 71045; 80053; 81001; 83605; 83690; 84145; 85025; 87040; 87077; 87086; 87186; 93005; 93010; 96361; 96365; 96375; 99284; J0696; J1642; J2060; J2405

== ENCOUNTER 2021-03-07 08:20 | Emergency (ER) | payer OTHER, SELFPAY ==
[2020-09-28 11:54] VITALS: BMI 18.3
[2021-03-07 08:25] VITALS: BP 134/83; PULSE 110; RESP 18; TEMP 36.7; O2SAT 98; BMI 18.1
--- NOTE | 2021-03-07 08:44 | DI.RAD.S_ITS ---
PROCEDURE: XR CHEST 1V INDICATIONS: Fever. Chest pain. TECHNIQUE: One view of the chest was acquired. COMPARISON: [facility], CR, XR CHEST 1V, 02/07/2021, 10:17. FINDINGS: Surgical changes and devices: Right chest wall port a catheter is present, tip of which is in the mid SVC. Tendon anchors within the left humerus. Lungs and pleura: Lungs are clear. No pleural effusions or pneumothorax. Mediastinum: Mediastinal contours appear normal. Heart size is normal. Bones and chest wall: No suspicious bony lesions. Healed left humeral head/neck fracture. Overlying soft tissues appear unremarkable. IMPRESSION: No acute process. Dictated by: Kristian Bolton M.D. on 03/07/2021 at 8:15 Approved by: Kristian Bolton M.D. on 03/07/2021 at 8:18
--- NOTE | 2021-03-07 08:48 | ED.CHESTPAIN ---
HPI - Chest Pain General Chief Complaint: Chest Pain Stated Complaint: Chest pains post port application Time Seen by Provider: 03/07/21 08:44 Source: patient Mode of arrival: Ambulatory Limitations: no limitations History of Present Illness HPI narrative: The patient is well known at this ER. She has a past history of interstitial cystitis and urostomy. She has frequent visits with GI discomfort. She is frequently seeking narcotic pain medications, but also has significant pathology. She presents today with left flank pain. She had nausea earlier none now. Pain radiates across her mid abdomen and up to her left chest. The urostomy is a right lower abdomen. She has yellow urine with heavy sediment. There is no hematuria. She has no headache, sore throat, or cough. Regarding the chest pain, she has no history of CAD. She has no palpitations or near syncope. She has no edema. Regarding the abdominal pain, she has normal BMs. She is hydrating well. She is not vomiting at this time. She has a history of sepsis. The flank pain worries her for pyelonephritis and/or sepsis. The last 2 positive urine cultures were Citrobacter January 2021 and E coli December 2020 with multiple resistance. Related Data Home Medications Medication Instructions Recorded Confirmed albuterol sulfate 90 mcg/actuation 2 puff INH Q4HP PRN #0 01/08/13 09/28/20 aerosol inhaler (Proventil HFA) hydroxyzine HCl 25 mg tablet 50 mg PO BID #0 01/08/13 09/28/20 gabapentin 300 mg capsule 900 mg PO BID #0 07/04/17 09/28/20 (Neurontin) multivitamin (Multiple Vitamins) 1 tab PO DAILY #0 07/04/17 09/28/20 zolpidem 10 mg tablet (Ambien) 10 mg PO HS PRN #0 07/04/17 09/28/20 Probiotic 1 tab PO DAILY 09/26/17 09/28/20 omeprazole 20 mg capsule,delayed 40 mg PO BID 09/26/17 09/28/20 release ondansetron 4 mg disintegrating 1 tab TRANSLINGUAL Q6H PRN 09/26/17 09/28/20 tablet lorazepam 0.5 mg tablet 0.5 mg PO BEDTIME 05/30/18 09/28/20 insulin NPH isoph U-100 human 100 15 unit SUBCUT BID 05/17/19 09/28/20 unit/mL (3 mL) subcutaneous pen (Humulin N NPH U-100 Insulin KwikPen) methocarbamol 500 mg tablet 1,000 mg PO QID 05/17/19 09/28/20 quetiapine 100 mg tablet 300 mg PO BEDTIME 11/04/19 09/28/20 magnesium glycinate 100 mg tablet 800 mg PO BEDTIME 12/08/19 09/28/20 melatonin 10 mg tablet 20 mg PO BEDTIME 12/08/19 09/28/20 cholecalciferol (vitamin D3) 25 25 mcg PO DAILY 08/31/20 09/28/20 mcg (1,000 unit) tablet (Vitamin D3) docusate sodium 100 mg capsule 100 mg PO DAILY 08/31/20 09/28/20 prazosin 1 mg capsule 1 mg PO BEDTIME 08/31/20 09/28/20 ropinirole 0.25 mg tablet (Requip) 0.5 mg PO BEDTIME 08/31/20 09/28/20 vitamin E 400 unit tablet 400 unit PO DAILY 08/31/20 09/28/20 prochlorperazine maleate 10 mg 10 mg PO Q6H PRN 09/28/20 09/28/20 tablet Previous Rx's Medication Instructions Recorded promethazine 25 mg tablet 25 mg PO TID PRN #10 tab 04/16/20 promethazine 25 mg rectal 25 mg OK Q4-6H PRN #12 ea 04/19/20 suppository hydromorphone 2 mg tablet 2 mg PO Q6H #10 tab 09/30/20 levofloxacin 500 mg tablet 500 mg PO DAILY #3 tab 09/30/20 linezolid 600 mg tablet 600 mg PO Q12H #14 tab 09/30/20 losartan 50 mg tablet 50 mg PO DAILY #30 tab 09/30/20 nystatin 100,000 unit/mL oral 500,000 unit (5 mL) PO QID #60 ml 09/30/20 suspension hydrocodone 5 mg-acetaminophen 325 1 tab PO BID PRN #5 tab 11/04/20 mg tablet hydrocodone 5 mg-acetaminophen 325 1 tab PO Q4-6H PRN #10 tab 12/24/20 mg tablet hydrocodone 5 mg-acetaminophen 325 1 tab PO Q6H PRN #10 tab 02/07/21 mg tablet nitrofurantoin 100 mg PO BID 10 Days #20 cap 03/07/21 monohydrate/macrocrystals 100 mg capsule (Macrobid) Allergies Allergy/AdvReac Type Severity Reaction Status Date / Time mupirocin Allergy Unknown Verified 02/07/21 10:03 naproxen Allergy Unknown Verified 02/07/21 10:03 Penicillins Allergy Unknown SINCE Verified 02/07/21 10:03 CHILDHOOD droperidol AdvReac Unknown Verified 02/07/21 10:03 fenofibrate [FENOFIBRATE] AdvReac Unknown Verified 02/07/21 10:03 ibuprofen AdvReac Unknown NAUSEA Verified 02/07/21 10:03 metformin [METFORMIN] AdvReac Unknown Verified 02/07/21 10:03 metoclopramide AdvReac Unknown BECAME Verified 02/07/21 10:03 JITTERY AND ANXIOUS nitrofurantoin AdvReac Unknown NAUSEA Verified 02/07/21 10:03 Review of Systems Constitutional Constitutional: Denies anorexia, Reports body ache(s), Denies chills, Denies fever(s) and Denies headache(s) Eyes Eyes: Denies blurry vision and Denies change in vision ENT Ears, Nose, Mouth, and Throat: Denies dizziness, Denies headache(s) and Denies hoarseness Cardiovascular Cardiovascular: Denies syncope, Denies rapid heart rate and Denies edema Gastrointestinal Gastrointestinal: Reports as per HPI Genitourinary Genitourinary: Reports as per HPI Musculoskeletal Comments: Left flank pain. Integumentary/Breasts Skin/Breast: Denies lesions and Denies rash Neurologic Neurologic: Denies confusion, Denies dizziness, Denies syncope and Denies headache(s) Psychiatric Psychiatric: Reports anxiety and Denies confusion Hematologic/Lymphatic On Anticoagulants: No Patient History Medical History (Updated 03/07/21 @ 10:45 by Jamar Hardy MD) Anxiety Closed fracture of left humerus Endometriosis Fibromyalgia Heart palpitations History of asthma History of chronic hypertension History of COPD History of depression History of gastrointestinal ulcer History of kidney stones History of migraine History of panic attacks History of type 2 diabetes mellitus Hyperlipidemia Interstitial cystitis UTI (urinary tract infection) Surgical History History of urostomy S/P appendectomy Status post hysterectomy Status post left rotator cuff repair Family History Mother Diabetes mellitus Lupus Social History household members: spouse Smoking Status: Current every day smoker alcohol intake: current Smoking Status: Current every day smoker tobacco type: cigarettes alcohol intake frequency: holidays/special occasions only Substance Use Type: former substance user and marijuana Exam Initial Vital Signs Initial Vital Signs: Vital Signs Temperature 98.1 F 03/07/21 08:25 Pulse Rate 110 H 03/07/21 08:25 Respiratory Rate 18 03/07/21 08:25 Blood Pressure 134/83 03/07/21 08:25 Pulse Oximetry 98 03/07/21 08:25 Const General: cooperative, in distress, anxious and frail appearing Nutritional Appearance: thin and underweight Orientation: Orientation [facility] Head: normocephalic and atraumatic Throat: posterior oropharynx normal Eyes Conjunctivae: conjunctivae normal Sclera: sclerae normal Neck Neck: No lymphadenopathy Resp Auscultation: clear to auscultation bilaterally Cardio Rate: regular rate Rhythm: regular rhythm Heart Sounds: S1 normal, S2 normal, no murmurs and no rubs GI Inspection: normal to inspection and non-distended Palpation: soft, No guarding and tender (Left mid flank tenderness without mass. Urostomy site in the RLQ.) Auscultation: normal bowel sounds Back/Spine/Pelvis Back: normal to inspection and No CVA tenderness Course Course Course Narrative: Her urine sample ,as usual, indicates UTI. She has a slightly elevated WBC, lactic acid level is normal. Procalcitonin is elevated. The last urine cultures grow Citrobacter an E coli. Rocephin would cover do those infections. I gave Rocephin 1 g. She was given IV hydration, Rocephin Dilaudid. She is feeling significantly better. She was discharged on and Macrobid. Orders Ordered: ED Orders 03/07/21 08:30 COVID19 -Nasal swab/Pre-Proc Stat Urinalysis and Microscopic Stat Urine Culture Stat 03/07/21 08:44 XR chest 1V Stat EKG-12 Lead Stat 03/07/21 09:21 Complete Blood Count AUTO DIFF Stat Comprehensive Metabolic Panel Stat Lactate (Lactic Acid) Stat Lipase Stat Procalcitonin Stat Troponin & CK Cardiac Panel Stat Discontinued Medications Diphenhydramine HCl (Diphenhydramine 50 Mg/Ml Vial) 25 mg IV NOW ONE Stop: 03/07/21 09:58 Last Admin: 03/07/21 10:03 Dose: 25 mg Documented by: Hydromorphone HCl (Hydromorphone 1 Mg Inj) 1 mg IV NOW ONE Stop: 03/07/21 09:58 Last Admin: 03/07/21 10:04 Dose: 1 mg Documented by: Sodium Chloride (Normal Saline 0.9%) 1,000 mls @ 1,000 mls/hr IV BOLUS ONE Stop: 03/07/21 09:43 Last Admin: 03/07/21 09:33 Dose: 1,000 mls/hr Documented by: Ceftriaxone Sodium 1,000 mg/ (Sodium Chloride) 100 mls @ 200 mls/hr IV NOW ONE Stop: 03/07/21 09:53 Last Infusion: 03/07/21 10:35 Dose: Infused Documented by: Vital Signs Vital signs: Vital Signs - 8 hr 03/07/21 08:25 03/07/21 09:38 03/07/21 09:40 Temperature 98.1 F Pulse Rate 110 H 109 H 112 H Respiratory Rate 18 18 19 Blood Pressure 134/83 Pulse Oximetry 98 98 97 03/07/21 09:41 03/07/21 10:00 Temperature Pulse Rate 111 H 101 H Respiratory Rate 18 18 Blood Pressure 177/81 H Pulse Oximetry 97 99 MDM - Chest Pain Lab Data Result diagrams: 03/07/21 09:21 03/07/21 09:21 Labs: Lab Results 03/07/21 03/07/21 03/07/21 Range/Units 08:30 08:30 09:21 WBC 14.3 H (4.5-11.0) X10^3/uL RBC 3.41 L (4.0-5.2) X10^6/uL Hgb 11.6 L (12.0-16.0) g/dL Hct 34.3 L (36-46) % MCV 100.5 H (80-100) fL MCH 34.0 (26-34) PG MCHC 33.8 (30-36) % RDW 13.5 (11.6-14.8) % Plt Count 372 (150-400) X10^3/uL Neut % (Auto) 78.4 H (50-75) % Lymph % (Auto) 12.2 L (25-40) % [place] % (Auto) 8.6 (3-14) % Eos % (Auto) 0.5 L (2-4) % Baso % (Auto) 0.3 (0-2) % Neut # (Auto) 93048 H (5336-7161) /uL Lymph # (Auto) 1700 (8389-8972) /uL [place] # (Auto) 1200 H (0-900) /uL Eos # (Auto) 100 (0-450) /uL Baso # (Auto) 0 (0-100) /uL Sodium (137-145) mmol/L Potassium (3.4-5.1) mmol/L Chloride (98-107) mmol/L Carbon Dioxide (22-32) mmol/L BUN (7-17) mg/dL Creatinine (0.52-1.04) mg/dL Estimated GFR (>60) mL/min BUN/Creatinine Ratio (6-22) Glucose (70-100) mg/dL Lactate (0.7-2.1) mmol/L Calcium (8.4-10.2) mg/dL Total Bilirubin (0.2-1.3) mg/dL AST (14-36) IU/L ALT (<35) IU/L Alkaline Phosphatase (38-126) U/L Total Creatine Kinase (30-135) U/L CK-MB (CK-2) CK-MB (CK-2) Rel Index Troponin I (0.01-0.034) ng/mL Total Protein (6.3-8.2) g/dL Albumin (3.5-5.0) g/dL Globulin (1.7-4.1) g/dL Albumin/Globulin Ratio (1.0-2.8) Lipase (23-300) U/L Procalcitonin (<0.5) ng/mL Urine Color Yellow Urine Appearance Turbid Urine pH 7.0 (4.5-8.0) Ur Specific [place] 1.015 (1.000-1.035) Urine Protein 1+ H (Negative) Urine Glucose (UA) Negative (Negative) g/dL Urine Ketones Negative (NEGATIVE) Urine Occult Blood 1+ H (Negative) Urine Nitrate Positive H (Negative) Urine Bilirubin Negative (NEGATIVE) Urine Urobilinogen 0.2 (0.2) E.U./dL Ur Leukocyte Esterase 3+ H (NEGATIVE) Urine RBC 0-1/hpf (0-5/HPF) Urine WBC 10-30/hpf H (0-5/HPF) Ur Squamous Epith Cells None seen (0-5/HPF) Urine Bacteria Many (>30) H (None) Ur Culture Indicated? Specimen cultured SARS-CoV-2 (PCR) Negative (Negative) 03/07/21 03/07/21 Range/Units 09:21 09:21 WBC (4.5-11.0) X10^3/uL RBC (4.0-5.2) X10^6/uL Hgb (12.0-16.0) g/dL Hct (36-46) % MCV (80-100) fL MCH (26-34) PG MCHC (30-36) % RDW (11.6-14.8) % Plt Count (150-400) X10^3/uL Neut % (Auto) (50-75) % Lymph % (Auto) (25-40) % [place] % (Auto) (3-14) % Eos % (Auto) (2-4) % Baso % (Auto) (0-2) % Neut # (Auto) (8335-1696) /uL Lymph # (Auto) (6397-3972) /uL [place] # (Auto) (0-900) /uL Eos # (Auto) (0-450) /uL Baso # (Auto) (0-100) /uL Sodium 135 L (137-145) mmol/L Potassium 4.6 (3.4-5.1) mmol/L Chloride 106 (98-107) mmol/L Carbon Dioxide 23 (22-32) mmol/L BUN 12 (7-17) mg/dL Creatinine 0.60 (0.52-1.04) mg/dL Estimated GFR > 60.0 (>60) mL/min BUN/Creatinine Ratio 20.0 (6-22) Glucose 175 H (70-100) mg/dL Lactate 1.3 (0.7-2.1) mmol/L Calcium 9.0 (8.4-10.2) mg/dL Total Bilirubin 0.3 (0.2-1.3) mg/dL AST 23 (14-36) IU/L ALT 18 (<35) IU/L Alkaline Phosphatase 213 H (38-126) U/L Total Creatine Kinase 25 L (30-135) U/L CK-MB (CK-2) TNP CK-MB (CK-2) Rel Index TNP Troponin I < 0.012 (0.01-0.034) ng/mL Total Protein 6.8 (6.3-8.2) g/dL Albumin 3.4 L (3.5-5.0) g/dL Globulin 3.4 (1.7-4.1) g/dL Albumin/Globulin Ratio 1.0 (1.0-2.8) Lipase 26 (23-300) U/L Procalcitonin 5.54 H (<0.5) ng/mL Urine Color Urine Appearance Urine pH (4.5-8.0) Ur Specific [place] (1.000-1.035) Urine Protein (Negative) Urine Glucose (UA) (Negative) g/dL Urine Ketones (NEGATIVE) Urine Occult Blood (Negative) Urine Nitrate (Negative) Urine Bilirubin (NEGATIVE) Urine Urobilinogen (0.2) E.U./dL Ur Leukocyte Esterase (NEGATIVE) Urine RBC (0-5/HPF) Urine WBC (0-5/HPF) Ur Squamous Epith Cells (0-5/HPF) Urine Bacteria (None) Ur Culture Indicated? SARS-CoV-2 (PCR) (Negative) Imaging Data Chest x-ray: Radiologist's Impression: No acute process. ECG Data Attestation: I personally reviewed and interpreted this ECG as follows: (Sinus tachycardia rate 102 beats per minute. Normal intervals. No ectopy. Possible old anterior UT, no acute ST T wave changes.) Discharge Plan Departure Patient Disposition: Home Clinical Impression: Abdominal pain, UTI (urinary tract infection) Instructions: DI for Urinary Tract Infection (UTI) Activity Restrictions/Additional Instructions: Continue your regular medications. Macrobid 2 times daily for 10 days. Prescription has been forwarded to [facility]'s pharmacy in [place], [place]. I would recommend follow-up with your doctor in about 2 weeks to recheck. Return here as necessary. Prescriptions: New nitrofurantoin monohyd/m-cryst [Macrobid] 100 mg capsule 100 mg PO BID 10 Days Qty: 20 0RF Rx Instructions: must administer with a meal/food No Action hydroxyzine HCl 25 MG tablet 50 mg PO BID Qty: 0 0RF albuterol sulfate [Proventil HFA] 90 MCG/PUFF HFA aerosol inhaler 2 puff INH Q4HP PRN (Reason: Shortness Of Breath) Qty: 0 0RF gabapentin [Neurontin] 300 MG capsule 900 mg PO BID Qty: 0 0RF multivitamin [Multiple Vitamins] 1 EACH tablet 1 tab PO DAILY Qty: 0 0RF zolpidem [Ambien] 10 MG tablet 10 mg PO HS PRN (Reason: Insomnia) Qty: 0 0RF lorazepam 0.5 mg tablet 0.5 mg PO BEDTIME 0RF methocarbamol 500 mg tablet 1,000 mg PO QID 0RF Humulin N NPH Insulin KwikPen 100 unit/mL (3 mL) insulin pen 15 unit SUBCUT BID 0RF quetiapine 100 mg Tablet 300 mg PO BEDTIME 0RF magnesium glycinate 100 mg Tablet 800 mg PO BEDTIME 0RF melatonin 10 mg Tablet 20 mg PO BEDTIME 0RF promethazine 25 mg suppository 25 mg OK Q4-6H PRN (Reason: nausea and vomiting) Qty: 12 0RF prazosin 1 mg capsule 1 mg PO BEDTIME 0RF Label Comments: TAKE 1 CAPSULE BY MOUTH EVERY NIGHT FOR NIGHTMARES vitamin E 400 unit Tablet 400 unit PO DAILY 0RF docusate sodium 100 mg Capsule 100 mg PO DAILY 0RF cholecalciferol (vitamin D3) [Vitamin D3] 25 mcg (1,000 unit) Tablet 25 mcg PO DAILY 0RF ropinirole [Requip] 0.25 mg tablet 0.5 mg PO BEDTIME 0RF Rx Instructions: administer 1-3 hours before bedtime hydrocodone-acetaminophen 5-325 mg tablet 1 tab PO BID PRN (Reason: pain) Qty: 5 0RF hydrocodone-acetaminophen 5-325 mg tablet 1 tab PO Q4-6H PRN (Reason: pain) Qty: 10 0RF hydrocodone-acetaminophen 5-325 mg tablet 1 tab PO Q6H PRN (Reason: pain) Qty: 10 0RF omeprazole 20 mg capsule,delayed release(DR/EC) 40 mg PO BID 0RF ondansetron 4 mg tablet,disintegrating 1 tab Translingual Q6H PRN (Reason: Nausea) 0RF Probiotic 1 tab PO DAILY 0RF Label Comments: Pt doubles probiotic when on antibiotics. promethazine 25 mg tablet 25 mg PO TID PRN (Reason: nausea and vomiting) Qty: 10 0RF prochlorperazine maleate 10 mg tablet 10 mg PO Q6H PRN (Reason: Nausea) 0RF losartan 50 mg Tablet 50 mg PO DAILY Qty: 30 0RF nystatin 100,000 unit/mL Suspension 500,000 unit PO QID Qty: 60 0RF linezolid 600 mg tablet 600 mg PO Q12H Qty: 14 0RF levofloxacin 500 mg tablet 500 mg PO DAILY Qty: 3 0RF hydromorphone 2 mg tablet 2 mg PO Q6H Qty: 10 0RF Referrals: Fadi Ko DO [Primary Care Provider] -
[2021-03-07 08:50] LABS: Appearance Urine UA TURBID; Bilirubin Urine UA NEGATIVE (NEGATIVE); Color Urine UA YELLOW; Glucose Urine UA NEGATIVE (Negative); Ketones Urine UA NEGATIVE (NEGATIVE); Leukocyte Esterase Urine UA 3+ (NEGATIVE); Nitrite Urine UA POSITIVE (Negative); Occult Blood Urine UA 1+ (Negative); Protein Urine UA 1+ (Negative); Specific Gravity Urine UA 1.015 (1.000-1.035); Urobilinogen Urine UA 0.2 E.U./dL (0.2)
[2021-03-07 08:57] LABS: COVID19 -Nasal RAPID Negative (Negative)
[2021-03-07 09:01] LABS: Bacteria Urine Many (>30); Culture Indicated Urine Specimen Cultured; RBC Urine 0-1/HPF (0-5/HPF); Squamous Epithelial Cell Urine None Seen (0-5/HPF); WBC Urine 10-30/HPF (0-5/HPF)
[2021-03-07] MEDS: SODIUM CHLORIDE 0.9% 1,000 ML 1000 ML IV (09:33)
[2021-03-07 09:35] LABS: Add Manual Diff / Slide Review NO; Basophils Absolute Auto 0 /uL (0-100); Basophils Percent Auto 0.3 % (0-2); Eosinophils Absolute Auto 100 /uL (0-450); Eosinophils Percent Auto 0.5 % (2-4); Hematocrit 34.3 % (36-46); Hemoglobin 11.6 g/dL (12.0-16.0); Lymphocytes Absolute Auto 1700 /uL (1100-4500); Lymphocytes Percent Auto 12.2 % (25-40); Mean Corpuscular HGB Conc 33.8 % (30-36); Mean Corpuscular Volume 100.5 fL (80-100); Monocytes Absolute Auto 1200 /uL (0-900); Monocytes Percent Auto 8.6 % (3-14); Neutrophils Absolute Auto 11200 /uL (1500-7000); Neutrophils Percent Auto 78.4 % (50-75); Platelet Count 372 X10^3/uL (150-400); Red Blood Cell Count 3.41 X10^6/uL (4.0-5.2); Red Cell Distribution Width 13.5 % (11.6-14.8); White Blood Cell Count 14.3 X10^3/uL (4.5-11.0)
[2021-03-07 09:38] VITALS: PULSE 109; RESP 18; O2SAT 98
[2021-03-07 09:40] VITALS: PULSE 112; RESP 19; O2SAT 97
[2021-03-07 09:41] VITALS: BP 177/81; PULSE 111; RESP 18; O2SAT 97
[2021-03-07 09:41] LABS: Lactate (Lactic Acid) 1.3 mmol/L (0.7-2.1)
[2021-03-07 09:43] LABS: Alanine Aminotransferase 18 IU/L (<35); Albumin 3.4 g/dL (3.5-5.0); Alkaline Phosphatase 213 U/L (38-126); Aspartate Aminotransferase 23 IU/L (14-36); Bilirubin Total 0.3 mg/dL (0.2-1.3); Blood Urea Nitrogen 12 mg/dL (7-17); Carbon Dioxide 23 mmol/L (22-32); Chloride 106 mmol/L (98-107); Creatine Kinase 25 U/L (30-135); Estimated Glomerular Filt Rate > 60.0 mL/min (>60); Globulin 3.4 g/dL (1.7-4.1); Glucose 175 mg/dL (70-100); HEMOLYSIS < 15 (0-50); Lipase 26 U/L (23-300); Potassium 4.6 mmol/L (3.4-5.1); Sodium 135 mmol/L (137-145); Total Protein 6.8 g/dL (6.3-8.2)
[2021-03-07 09:54] LABS: Troponin I < 0.012 ng/mL (0.01-0.034)
[2021-03-07 09:59] LABS: Procalcitonin 5.54 ng/mL (<0.5)
[2021-03-07 10:00] VITALS: PULSE 101; RESP 18; O2SAT 99
[2021-03-07] MEDS: diphenhydrAMINE 50 MG/ML VIAL 25 MG IV (10:03)
[2021-03-07] MEDS: HYDROMORPHONE 1 MG INJ IV ×2 (10:04→11:13)
[2021-03-07] MEDS: cefTRIAXone 1,000 MG in SODIUM CHLORIDE 0.9% 100 ML 200 ML IV (10:04)
[2021-03-07 11:30] VITALS: BP 136/76; PULSE 70; RESP 18; TEMP 36.6; O2SAT 94
== END 2021-03-07 11:32 | disposition home or self-care (01) ==
PROVIDERS: Emergency Provider Emergency Medicine; PCP Family Medicine
DX: N39.0 Urinary tract infection, site not specified (principal); R10.9 Unspecified abdominal pain; R00.0 Tachycardia, unspecified; Z20.822 Contact with and (suspected) exposure to COVID-19
CPT/HCPCS: 36415; 71045; 80053; 81001; 82550; 83605; 83690; 84145; 84484; 85025; 87077; 87086; 87186; 87635; 93005; 93010; 96361; 96365; 96375; 96376; 99284; C9803; J0696; J1170; J1200

== ENCOUNTER 2021-03-12 09:24 | Emergency (ER) | payer OTHER, SELFPAY ==
[2020-09-28 11:54] VITALS: BMI 18.3
[2021-03-12] VITALS (11 sets, daily range): BP systolic 117–156; BP diastolic 70–84; PULSE 78–97; RESP 16–18; TEMP 36.2; O2SAT 98–100; BMI 18.2
--- NOTE | 2021-03-12 09:36 | ED.GENADULT ---
HPI - General Adult General Chief complaint: Urogenital-Female Stated complaint: UTI not getting better Time Seen by Provider: 03/12/21 09:28 History of Present Illness HPI narrative: 55-year-old woman with history of interstitial cystitis, cystoscopy, recurrent urinary tract infections, significant anxiety, a mid and additional myriad of chronic medical issues presents with complaints that her bladder infection diagnosed on March 07 is not getting better. She and her both note that after the initial fluids and ceftriaxone things seem to improve for couple of days but then she is now complaining of her ?kidney pain, pain over her pubic bone and pain over the entire lower abdomen. She is emotionally distraught and having difficulty dealing with the pain issues. She was discharged home with nitrofurantoin after getting a g of IV ceftriaxone in the emergency department. The urine is currently growing out E coli that is sensitive to both of these medications. I suspect that the nitrofurantoin did not have enough additional tissue penetration which is why she is having return symptoms. She does note some chills and weakness. No vomiting or diarrhea. No chest pain or palpitations. Related Data Home Medications Medication Instructions Recorded Confirmed albuterol sulfate 90 mcg/actuation 2 puff INH Q4HP PRN #0 01/08/13 09/28/20 aerosol inhaler (Proventil HFA) hydroxyzine HCl 25 mg tablet 50 mg PO BID #0 01/08/13 09/28/20 gabapentin 300 mg capsule 900 mg PO BID #0 07/04/17 09/28/20 (Neurontin) multivitamin (Multiple Vitamins) 1 tab PO DAILY #0 07/04/17 09/28/20 zolpidem 10 mg tablet (Ambien) 10 mg PO HS PRN #0 07/04/17 09/28/20 Probiotic 1 tab PO DAILY 09/26/17 09/28/20 omeprazole 20 mg capsule,delayed 40 mg PO BID 09/26/17 09/28/20 release ondansetron 4 mg disintegrating 1 tab TRANSLINGUAL Q6H PRN 09/26/17 09/28/20 tablet lorazepam 0.5 mg tablet 0.5 mg PO BEDTIME 05/30/18 09/28/20 insulin NPH isoph U-100 human 100 15 unit SUBCUT BID 05/17/19 09/28/20 unit/mL (3 mL) subcutaneous pen (Humulin N NPH U-100 Insulin KwikPen) methocarbamol 500 mg tablet 1,000 mg PO QID 05/17/19 09/28/20 quetiapine 100 mg tablet 300 mg PO BEDTIME 11/04/19 09/28/20 magnesium glycinate 100 mg tablet 800 mg PO BEDTIME 12/08/19 09/28/20 melatonin 10 mg tablet 20 mg PO BEDTIME 12/08/19 09/28/20 cholecalciferol (vitamin D3) 25 25 mcg PO DAILY 08/31/20 09/28/20 mcg (1,000 unit) tablet (Vitamin D3) docusate sodium 100 mg capsule 100 mg PO DAILY 08/31/20 09/28/20 prazosin 1 mg capsule 1 mg PO BEDTIME 08/31/20 09/28/20 ropinirole 0.25 mg tablet (Requip) 0.5 mg PO BEDTIME 08/31/20 09/28/20 vitamin E 400 unit tablet 400 unit PO DAILY 08/31/20 09/28/20 prochlorperazine maleate 10 mg 10 mg PO Q6H PRN 09/28/20 09/28/20 tablet Previous Rx's Medication Instructions Recorded promethazine 25 mg tablet 25 mg PO TID PRN #10 tab 04/16/20 promethazine 25 mg rectal 25 mg ID Q4-6H PRN #12 ea 04/19/20 suppository hydromorphone 2 mg tablet 2 mg PO Q6H #10 tab 09/30/20 levofloxacin 500 mg tablet 500 mg PO DAILY #3 tab 09/30/20 linezolid 600 mg tablet 600 mg PO Q12H #14 tab 09/30/20 losartan 50 mg tablet 50 mg PO DAILY #30 tab 09/30/20 nystatin 100,000 unit/mL oral 500,000 unit (5 mL) PO QID #60 ml 09/30/20 suspension hydrocodone 5 mg-acetaminophen 325 1 tab PO BID PRN #5 tab 11/04/20 mg tablet hydrocodone 5 mg-acetaminophen 325 1 tab PO Q4-6H PRN #10 tab 12/24/20 mg tablet hydrocodone 5 mg-acetaminophen 325 1 tab PO Q6H PRN #10 tab 02/07/21 mg tablet nitrofurantoin 100 mg PO BID 10 Days #20 cap 03/07/21 monohydrate/macrocrystals 100 mg capsule (Macrobid) cephalexin 500 mg capsule 500 mg PO TID #21 cap 03/12/21 Allergies Allergy/AdvReac Type Severity Reaction Status Date / Time mupirocin Allergy Unknown Verified 02/07/21 10:03 naproxen Allergy Unknown Verified 02/07/21 10:03 Penicillins Allergy Unknown SINCE Verified 02/07/21 10:03 CHILDHOOD droperidol AdvReac Unknown Verified 02/07/21 10:03 fenofibrate [FENOFIBRATE] AdvReac Unknown Verified 02/07/21 10:03 ibuprofen AdvReac Unknown NAUSEA Verified 02/07/21 10:03 metformin [METFORMIN] AdvReac Unknown Verified 02/07/21 10:03 metoclopramide AdvReac Unknown BECAME Verified 02/07/21 10:03 JITTERY AND ANXIOUS nitrofurantoin AdvReac Unknown NAUSEA Verified 02/07/21 10:03 Review of Systems Review of Systems Narrative: Remainder of complete review of systems is otherwise unremarkable except for that included in the HPI. Patient History Medical History (Updated 03/12/21 @ 14:37 by Carolina Bonilla MD) Anxiety Closed fracture of left humerus Endometriosis Fibromyalgia Heart palpitations History of asthma History of chronic hypertension History of COPD History of depression History of gastrointestinal ulcer History of kidney stones History of migraine History of panic attacks History of type 2 diabetes mellitus Hyperlipidemia Interstitial cystitis UTI (urinary tract infection) Surgical History History of urostomy S/P appendectomy Status post hysterectomy Status post left rotator cuff repair Family History Mother Diabetes mellitus Lupus Social History household members: spouse Smoking Status: Current every day smoker alcohol intake: current Smoking Status: Current every day smoker tobacco type: cigarettes alcohol intake frequency: holidays/special occasions only Substance Use Type: former substance user and marijuana Exam Narrative Exam Narrative: General: Emotionally distraught, cachectic, anxious and frightened. HEENT: Moist mucous membranes, normal sclera with reactive pupils, Neck: supple Respiratory: Lungs are clear to auscultation, no wheezing no rales no rhonchi. Full and symmetrical air movement Cardiac: Regular rate and rhythm no murmurs no bruits Abdomen: Soft, mild tenderness over the lower abdomen without rebound or guarding. Urostomy site is well perfused with clear urine coming out. Good bowel tones, no flank pain Skin: Warm and dry, multiple areas of small healing superficial wounds and multiple scars from prior ones Neurologic: Grossly neurologically intact with no obvious asymmetries or abnormalities Extremities: No trauma, well perfused Psych: Anxious, frightened, poor overall insight, fluent speech, poor eye contact Initial Vital Signs Initial Vital Signs: Vital Signs Temperature 97.2 F L 03/12/21 09:35 Pulse Rate 96 H 03/12/21 09:35 Respiratory Rate 16 03/12/21 09:35 Blood Pressure 147/76 H 03/12/21 09:35 Pulse Oximetry 100 03/12/21 09:35 Course Orders Ordered: ED Orders 03/12/21 09:45 Urinalysis and Microscopic Stat Urine Culture Stat 03/12/21 10:10 Complete Blood Count AUTO DIFF Stat Comprehensive Metabolic Panel Stat Heparin Sodium (Porcine) (Heparin 500 Unit/5 Ml Port Flush) 500 unit IV PRN PRN PRN Reason: Flush Hydromorphone HCl (Hydromorphone 0.5 Mg Inj) 0.5 mg IV Q15MIN PRN PRN Reason: Pain, Last Admin: 03/12/21 14:35 Dose: 0.5 mg Documented by: Admin: 03/12/21 12:15 Dose: 0.5 mg Documented by: Admin: 03/12/21 10:30 Dose: 0.5 mg Documented by: Admin: 03/12/21 10:08 Dose: 0.5 mg Documented by: CATERINA Discontinued Medications Sodium Chloride (Normal Saline 0.9%) 1,000 mls @ 1,000 mls/hr IV BOLUS ONE Stop: 03/12/21 10:42 Last Infusion: 03/12/21 11:12 Dose: 0 mls/hr Documented by: Admin: 03/12/21 10:08 Dose: 1,000 mls/hr Documented by: CATERINA Ceftriaxone Sodium 2,000 mg/ (Sodium Chloride) 100 mls @ 200 mls/hr IV NOW ONE Stop: 03/12/21 12:13 Last Infusion: 03/12/21 12:53 Dose: 0 mls/hr Documented by: Admin: 03/12/21 12:15 Dose: 200 mls/hr Documented by: CATERINA Ondansetron HCl (Ondansetron 4 Mg/2 Ml Inj) 4 mg IV NOW ONE Stop: 03/12/21 09:44 Last Admin: 03/12/21 10:08 Dose: 4 mg Documented by: CATERINA Vital Signs Vital signs: Vital Signs - 8 hr 03/12/21 09:35 03/12/21 09:44 03/12/21 10:00 Temperature 97.2 F L Pulse Rate 96 H 97 H 87 Respiratory Rate 16 18 Blood Pressure 147/76 H 117/79 Pulse Oximetry 100 100 100 03/12/21 10:30 03/12/21 11:00 03/12/21 11:30 Temperature Pulse Rate 83 85 79 Respiratory Rate 17 17 18 Blood Pressure 150/76 H 133/71 130/74 Pulse Oximetry 99 99 99 03/12/21 12:00 03/12/21 12:30 03/12/21 13:00 Temperature Pulse Rate 85 80 78 Respiratory Rate 18 18 18 Blood Pressure 156/84 H 123/72 125/75 Pulse Oximetry 99 98 98 03/12/21 13:30 Temperature Pulse Rate 80 Respiratory Rate 18 Blood Pressure 124/71 Pulse Oximetry 99 Medical Decision Making Medical Records Medical records narrative: Urine Culture Final 03/09/21-830 Organism 1 Escherichia coli [place] Count >100,000 CFU/ml MIXED GRAM POSITIVE MARII 1. Escherichia coli M.I.C. RX --------- --- * Amoxicillin/Clavulanate 4 S * Ampicillin >=32 R * Ampicillin/Sulbactam 16 I * Cefazolin <=4 S * Cefepime <=1 S * Ceftriaxone <=1 S * Ciprofloxacin >=4 R * Ertapenem <=0.5 S * Gentamicin <=1 S * Imipenem <=0.25 S * Levofloxacin >=8 R * Nitrofurantoin <=16 S * Tobramycin <=1 S * Trimethoprim/Sulfamethoxazole >=320 R * Piperacillin/Tazobactam <=4 S Lab Data Result diagrams: 03/12/21 10:10 03/12/21 10:10 Labs: Lab Results 03/12/21 03/12/21 03/12/21 Range/Units 09:45 10:10 10:10 WBC 10.0 (4.5-11.0) X10^3/uL RBC 3.13 L (4.0-5.2) X10^6/uL Hgb 10.7 L (12.0-16.0) g/dL Hct 31.6 L (36-46) % MCV 100.7 H (80-100) fL MCH 34.2 H (26-34) PG MCHC 34.0 (30-36) % RDW 13.4 (11.6-14.8) % Plt Count 406 H (150-400) X10^3/uL Neut % (Auto) 71.5 (50-75) % Lymph % (Auto) 19.8 L (25-40) % [place] % (Auto) 7.1 (3-14) % Eos % (Auto) 1.0 L (2-4) % Baso % (Auto) 0.6 (0-2) % Neut # (Auto) 7100 H (9879-8286) /uL Lymph # (Auto) 2000 (0405-4156) /uL [place] # (Auto) 700 (0-900) /uL Eos # (Auto) 100 (0-450) /uL Baso # (Auto) 100 (0-100) /uL Sodium 137 (137-145) mmol/L Potassium 4.3 (3.4-5.1) mmol/L Chloride 108 H (98-107) mmol/L Carbon Dioxide 25 (22-32) mmol/L BUN 13 (7-17) mg/dL Creatinine 0.57 (0.52-1.04) mg/dL Estimated GFR > 60.0 (>60) mL/min BUN/Creatinine Ratio 22.8 H (6-22) Glucose 157 H (70-100) mg/dL Calcium 8.8 (8.4-10.2) mg/dL Total Bilirubin 0.4 (0.2-1.3) mg/dL AST 28 (14-36) IU/L ALT 18 (<35) IU/L Alkaline Phosphatase 172 H (38-126) U/L Total Protein 6.5 (6.3-8.2) g/dL Albumin 3.2 L (3.5-5.0) g/dL Globulin 3.3 (1.7-4.1) g/dL Albumin/Globulin Ratio 1.0 (1.0-2.8) Urine Color Yellow Urine Appearance Clear Urine pH 6.5 (4.5-8.0) Ur Specific [place] 1.010 (1.000-1.035) Urine Protein Negative (Negative) Urine Glucose (UA) Negative (Negative) g/dL Urine Ketones Negative (NEGATIVE) Urine Occult Blood Trace-lysed (Negative) Urine Nitrate Negative (Negative) Urine Bilirubin Negative (NEGATIVE) Urine Urobilinogen 0.2 (0.2) E.U./dL Ur Leukocyte Esterase Negative (NEGATIVE) Urine RBC 1-5/hpf (0-5/HPF) Urine WBC 10-30/hpf H (0-5/HPF) Ur Squamous Epith Cells None seen (0-5/HPF) Urine Bacteria Few (2-10) H (None) Ur Culture Indicated? Specimen cultured MDM Narrative Medical decision making narrative: 55-year-old woman with recurrent bladder infections in urostomy currently with a E coli that grew out with her most recent ER visit. She is given another dose of ceftriaxone in the emergency department will be discharged home with cephalexin rather than Macrobid. There is no evidence of sepsis, renal failure, severe dehydration, pain has been adequately controlled and patient is doing significantly better. She is safe for discharge home. Discharge Plan Departure Patient Disposition: Home Clinical Impression: UTI (urinary tract infection) Instructions: DI for Urinary Tract Infection (UTI) Activity Restrictions/Additional Instructions: Thank you for coming in today Fortunately, there is no evidence of sepsis, kidney failure or significant electrolyte abnormalities. The E coli that grew out from your urine on the is sensitive to cephalexin. You have been given another dose of IV antibiotics, ceftriaxone, in the emergency department. Please go ahead and throw away the nitrofurantoin that you are given initially and change that to cephalexin. [facility] If symptoms worsen, please return to the ER Prescriptions: New cephalexin 500 mg capsule 500 mg PO TID Qty: 21 0RF No Action hydroxyzine HCl 25 MG tablet 50 mg PO BID Qty: 0 0RF albuterol sulfate [Proventil HFA] 90 MCG/PUFF HFA aerosol inhaler 2 puff INH Q4HP PRN (Reason: Shortness Of Breath) Qty: 0 0RF gabapentin [Neurontin] 300 MG capsule 900 mg PO BID Qty: 0 0RF multivitamin [Multiple Vitamins] 1 EACH tablet 1 tab PO DAILY Qty: 0 0RF zolpidem [Ambien] 10 MG tablet 10 mg PO HS PRN (Reason: Insomnia) Qty: 0 0RF lorazepam 0.5 mg tablet 0.5 mg PO BEDTIME 0RF methocarbamol 500 mg tablet 1,000 mg PO QID 0RF Humulin N NPH Insulin KwikPen 100 unit/mL (3 mL) insulin pen 15 unit SUBCUT BID 0RF quetiapine 100 mg Tablet 300 mg PO BEDTIME 0RF magnesium glycinate 100 mg Tablet 800 mg PO BEDTIME 0RF melatonin 10 mg Tablet 20 mg PO BEDTIME 0RF promethazine 25 mg suppository 25 mg ID Q4-6H PRN (Reason: nausea and vomiting) Qty: 12 0RF prazosin 1 mg capsule 1 mg PO BEDTIME 0RF Label Comments: TAKE 1 CAPSULE BY MOUTH EVERY NIGHT FOR NIGHTMARES vitamin E 400 unit Tablet 400 unit PO DAILY 0RF docusate sodium 100 mg Capsule 100 mg PO DAILY 0RF cholecalciferol (vitamin D3) [Vitamin D3] 25 mcg (1,000 unit) Tablet 25 mcg PO DAILY 0RF ropinirole [Requip] 0.25 mg tablet 0.5 mg PO BEDTIME 0RF Rx Instructions: administer 1-3 hours before bedtime hydrocodone-acetaminophen 5-325 mg tablet 1 tab PO BID PRN (Reason: pain) Qty: 5 0RF hydrocodone-acetaminophen 5-325 mg tablet 1 tab PO Q4-6H PRN (Reason: pain) Qty: 10 0RF hydrocodone-acetaminophen 5-325 mg tablet 1 tab PO Q6H PRN (Reason: pain) Qty: 10 0RF nitrofurantoin monohyd/m-cryst [Macrobid] 100 mg capsule 100 mg PO BID 10 Days Qty: 20 0RF Rx Instructions: must administer with a meal/food omeprazole 20 mg capsule,delayed release(DR/EC) 40 mg PO BID 0RF ondansetron 4 mg tablet,disintegrating 1 tab Translingual Q6H PRN (Reason: Nausea) 0RF Probiotic 1 tab PO DAILY 0RF Label Comments: Pt doubles probiotic when on antibiotics. promethazine 25 mg tablet 25 mg PO TID PRN (Reason: nausea and vomiting) Qty: 10 0RF prochlorperazine maleate 10 mg tablet 10 mg PO Q6H PRN (Reason: Nausea) 0RF losartan 50 mg Tablet 50 mg PO DAILY Qty: 30 0RF nystatin 100,000 unit/mL Suspension 500,000 unit PO QID Qty: 60 0RF linezolid 600 mg tablet 600 mg PO Q12H Qty: 14 0RF levofloxacin 500 mg tablet 500 mg PO DAILY Qty: 3 0RF hydromorphone 2 mg tablet 2 mg PO Q6H Qty: 10 0RF Referrals: Fadi Ko DO [Primary Care Provider] -
[2021-03-12 09:50] LABS: Appearance Urine UA CLEAR; Bilirubin Urine UA NEGATIVE (NEGATIVE); Color Urine UA YELLOW; Glucose Urine UA NEGATIVE (Negative); Ketones Urine UA NEGATIVE (NEGATIVE); Leukocyte Esterase Urine UA NEGATIVE (NEGATIVE); Nitrite Urine UA NEGATIVE (Negative); Occult Blood Urine UA TRACE-LYSED (Negative); Protein Urine UA NEGATIVE (Negative); Urobilinogen Urine UA 0.2 E.U./dL (0.2); pH Urine UA 6.5 (4.5-8.0)
[2021-03-12 10:06] LABS: Bacteria Urine Few (2-10); Culture Indicated Urine Specimen Cultured; RBC Urine 1-5/HPF (0-5/HPF); Squamous Epithelial Cell Urine None Seen (0-5/HPF); WBC Urine 10-30/HPF (0-5/HPF)
[2021-03-12] MEDS: HYDROMORPHONE 0.5 MG INJ IV ×4 (10:08→14:35)
[2021-03-12] MEDS: SODIUM CHLORIDE 0.9% 1,000 ML 1000 ML IV (10:08)
[2021-03-12] MEDS: ONDANSETRON 4 MG/2 ML INJ IV (10:08)
[2021-03-12 10:19] LABS: Add Manual Diff / Slide Review NO; Basophils Absolute Auto 100 /uL (0-100); Basophils Percent Auto 0.6 % (0-2); Eosinophils Absolute Auto 100 /uL (0-450); Hematocrit 31.6 % (36-46); Hemoglobin 10.7 g/dL (12.0-16.0); Lymphocytes Absolute Auto 2000 /uL (1100-4500); Lymphocytes Percent Auto 19.8 % (25-40); Mean Corpuscular Hemoglobin 34.2 PG (26-34); Mean Corpuscular Volume 100.7 fL (80-100); Monocytes Absolute Auto 700 /uL (0-900); Monocytes Percent Auto 7.1 % (3-14); Neutrophils Absolute Auto 7100 /uL (1500-7000); Neutrophils Percent Auto 71.5 % (50-75); Platelet Count 406 X10^3/uL (150-400); Red Blood Cell Count 3.13 X10^6/uL (4.0-5.2); Red Cell Distribution Width 13.4 % (11.6-14.8)
[2021-03-12 10:30] LABS: Alanine Aminotransferase 18 IU/L (<35); Albumin 3.2 g/dL (3.5-5.0); Alkaline Phosphatase 172 U/L (38-126); Aspartate Aminotransferase 28 IU/L (14-36); BUN Creatinine Ratio 22.8 (6-22); Bilirubin Total 0.4 mg/dL (0.2-1.3); Blood Urea Nitrogen 13 mg/dL (7-17); Calcium 8.8 mg/dL (8.4-10.2); Carbon Dioxide 25 mmol/L (22-32); Chloride 108 mmol/L (98-107); Estimated Glomerular Filt Rate > 60.0 mL/min (>60); Globulin 3.3 g/dL (1.7-4.1); Glucose 157 mg/dL (70-100); HEMOLYSIS 17 (0-50); Potassium 4.3 mmol/L (3.4-5.1); Sodium 137 mmol/L (137-145); Total Protein 6.5 g/dL (6.3-8.2)
[2021-03-12] MEDS: cefTRIAXone 2,000 MG in SODIUM CHLORIDE 0.9% 100 ML 200 ML IV (12:15)
--- NOTE | 2021-03-12 13:58 | PC.NURSE ---
passed po challenge
--- NOTE | 2021-03-12 14:40 | PC.NURSE ---
port heplocked and deaccessed
== END 2021-03-12 14:41 | disposition home or self-care (01) ==
PROVIDERS: Emergency Provider Emergency Medicine; PCP Family Medicine
DX: N39.0 Urinary tract infection, site not specified (principal); B96.20 Unspecified Escherichia coli [E. coli] as the cause of diseases classified elsewhere; Z88.1 Allergy status to other antibiotic agents; Z88.0 Allergy status to penicillin; F17.210 Nicotine dependence, cigarettes, uncomplicated
CPT/HCPCS: 36415; 80053; 81001; 85025; 87077; 87086; 87186; 96361; 96365; 96375; 99284; J0696; J1170; J2405

== ENCOUNTER 2021-03-19 12:55 | Emergency (ER) | payer OTHER, SELFPAY ==
[2020-09-28 11:54] VITALS: BMI 18.3
[2021-03-19] VITALS (11 sets, daily range): BP systolic 116–159; BP diastolic 73–104; PULSE 86–95; RESP 18; TEMP 36.4; O2SAT 93–100; BMI 18.1
--- NOTE | 2021-03-19 14:11 | ED_ITS ---
HPI - Female Genitourinary General Chief complaint: Urogenital-Female Stated complaint: KIDNEY INFECTION Time Seen by Provider: 03/19/21 13:01 Source: family Mode of arrival: Ambulatory History of Present Illness HPI Narrative: ?55-year-old female daily smoker with complex medical history including diabetes, frequent UTI and pyelonephritis, fibromyalgia?presents with her in the chief complaint of feeling lousy over the past few days with widespread pain. She had been recently seen and had urine suggesting infection had returned. She followed up with her primary care provider yesterday and after evaluation was given Rocephin IM and a prescription. She was encouraged to follow closely, but to present to the walk-in clinic or emergency department for worsening symptoms. She was doing well over the course of the day yesterday but as the evening wore on she became increasingly fatigued, worn out and restless. She had a terrible night sleep and presents today under these circumstances. She attempted to go to the walk-in clinic on would be but was redirected here given the complexity of her medical history. Related Data Home Medications Medication Instructions Recorded Confirmed albuterol sulfate 90 mcg/actuation 2 puff INH Q4HP PRN #0 01/08/13 09/28/20 aerosol inhaler (Proventil HFA) hydroxyzine HCl 25 mg tablet 50 mg PO BID #0 01/08/13 09/28/20 gabapentin 300 mg capsule 900 mg PO BID #0 07/04/17 09/28/20 (Neurontin) multivitamin (Multiple Vitamins) 1 tab PO DAILY #0 07/04/17 09/28/20 zolpidem 10 mg tablet (Ambien) 10 mg PO HS PRN #0 07/04/17 09/28/20 Probiotic 1 tab PO DAILY 09/26/17 09/28/20 omeprazole 20 mg capsule,delayed 40 mg PO BID 09/26/17 09/28/20 release ondansetron 4 mg disintegrating 1 tab TRANSLINGUAL Q6H PRN 09/26/17 09/28/20 tablet lorazepam 0.5 mg tablet 0.5 mg PO BEDTIME 05/30/18 09/28/20 insulin NPH isoph U-100 human 100 15 unit SUBCUT BID 05/17/19 09/28/20 unit/mL (3 mL) subcutaneous pen (Humulin N NPH U-100 Insulin KwikPen) methocarbamol 500 mg tablet 1,000 mg PO QID 05/17/19 09/28/20 quetiapine 100 mg tablet 300 mg PO BEDTIME 11/04/19 09/28/20 magnesium glycinate 100 mg tablet 800 mg PO BEDTIME 12/08/19 09/28/20 melatonin 10 mg tablet 20 mg PO BEDTIME 12/08/19 09/28/20 cholecalciferol (vitamin D3) 25 25 mcg PO DAILY 08/31/20 09/28/20 mcg (1,000 unit) tablet (Vitamin D3) docusate sodium 100 mg capsule 100 mg PO DAILY 08/31/20 09/28/20 prazosin 1 mg capsule 1 mg PO BEDTIME 08/31/20 09/28/20 ropinirole 0.25 mg tablet (Requip) 0.5 mg PO BEDTIME 08/31/20 09/28/20 vitamin E 400 unit tablet 400 unit PO DAILY 08/31/20 09/28/20 prochlorperazine maleate 10 mg 10 mg PO Q6H PRN 09/28/20 09/28/20 tablet Previous Rx's Medication Instructions Recorded promethazine 25 mg tablet 25 mg PO TID PRN #10 tab 04/16/20 promethazine 25 mg rectal 25 mg UT Q4-6H PRN #12 ea 04/19/20 suppository hydromorphone 2 mg tablet 2 mg PO Q6H #10 tab 09/30/20 levofloxacin 500 mg tablet 500 mg PO DAILY #3 tab 09/30/20 linezolid 600 mg tablet 600 mg PO Q12H #14 tab 09/30/20 losartan 50 mg tablet 50 mg PO DAILY #30 tab 09/30/20 nystatin 100,000 unit/mL oral 500,000 unit (5 mL) PO QID #60 ml 09/30/20 suspension hydrocodone 5 mg-acetaminophen 325 1 tab PO BID PRN #5 tab 11/04/20 mg tablet hydrocodone 5 mg-acetaminophen 325 1 tab PO Q4-6H PRN #10 tab 12/24/20 mg tablet hydrocodone 5 mg-acetaminophen 325 1 tab PO Q6H PRN #10 tab 02/07/21 mg tablet cephalexin 500 mg capsule 500 mg PO TID #21 cap 03/12/21 ciprofloxacin HCl 500 mg tablet 500 mg PO BID #20 tab 03/19/21 hydrocodone 5 mg-acetaminophen 325 1 tab PO Q4-6H PRN #10 tab 03/19/21 mg tablet sulfamethoxazole 800 1 tab PO BID 10 Days #20 tab 03/19/21 mg-trimethoprim 160 mg tablet (Bactrim DS) Allergies Allergy/AdvReac Type Severity Reaction Status Date / Time mupirocin Allergy Unknown Verified 03/19/21 13:04 naproxen Allergy Unknown Verified 03/19/21 13:04 Penicillins Allergy Unknown SINCE Verified 03/19/21 13:04 CHILDHOOD droperidol AdvReac Unknown Verified 03/19/21 13:04 fenofibrate [FENOFIBRATE] AdvReac Unknown Verified 03/19/21 13:04 ibuprofen AdvReac Unknown NAUSEA Verified 03/19/21 13:04 metformin [METFORMIN] AdvReac Unknown Verified 03/19/21 13:04 metoclopramide AdvReac Unknown BECAME Verified 03/19/21 13:04 JITTERY AND ANXIOUS nitrofurantoin AdvReac Unknown NAUSEA Verified 03/19/21 13:04 Review of Systems Review of Systems Narrative: GENERAL: See HPI HEENT: Denies sinus pain, ear pain, sore throat, difficulty swallowing, dizziness. RESPIRATORY: Denies dyspnea, cough, wheezing, hemoptysis, sputum. CARDIOVASCULAR: Denies chest pain, palpitations, orthopnea, edema, GASTROINTESTINAL: Denies nausea, vomiting, abdominal pain, diarrhea, constipation, melena. : Denies dysuria, frequency, incontinence, hematuria, urinary retention. MUSCULOSKELETAL: denies weakness, joint pain, or bony pain SKIN: Denies rash, skin lesions, or other NEUROLOGIC: Denies weakness, headache, numbness, change in speech, confusion, se izures, incoordination. PSYCHIATRIC: No concerning psychosocial issues. 12 point review of systems is negative except for those stated above Patient History Medical History (Updated 03/19/21 @ 18:00 by Lyle Roman DO) Anxiety Closed fracture of left humerus Endometriosis Fibromyalgia Heart palpitations History of asthma History of chronic hypertension History of COPD History of depression History of gastrointestinal ulcer History of kidney stones History of migraine History of panic attacks History of type 2 diabetes mellitus Hyperlipidemia Interstitial cystitis UTI (urinary tract infection) Surgical History History of urostomy S/P appendectomy Status post hysterectomy Status post left rotator cuff repair Family History Mother Diabetes mellitus Lupus tobacco type: cigarettes alcohol intake frequency: holidays/special occasions only Substance Use Type: former substance user and marijuana Exam Narrative Exam Narrative: GENERAL: [55 year old patient appears stated age. Well-developed patient, in mild distress. A bit tearful, obviously uncomfortable. No signs of sepsis HEAD: Atraumatic. Normocephalic. EYES: Pupils equal round and reactive. Extraocular motions intact. No scleral icterus. No injection or drainage. ENT: Nose without bleeding, purulent drainage. Throat without erythema, tonsillar hypertrophy or exudate. Airway patent. NECK: Trachea midline. Non tender CARDIOVASCULAR: Regular rate and rhythm without murmurs, gallops, or rubs. RESPIRATORY: Clear to auscultation. Breath sounds equal bilaterally. No wheezes, rales, or rhonchi. GASTROINTESTINAL: Abdomen soft, non-tender, nondistended. EXTREMITIES: No edema or joint tenderness. BACK: Nontender without deformity or crepitance. No flank tenderness. NEURO: AOx3. SKIN: No rash or erythema of visible areas Initial Vital Signs Initial Vital Signs: Vital Signs Temperature 97.5 F L 03/19/21 13:04 Pulse Rate 95 H 03/19/21 13:04 Respiratory Rate 18 03/19/21 13:04 Blood Pressure 144/88 H 03/19/21 13:04 Pulse Oximetry 98 03/19/21 13:04 Course Orders Ordered: Discontinued Medications Hydromorphone HCl (Hydromorphone 1 Mg Inj) 1 mg IV NOW ONE Stop: 03/19/21 13:50 Last Admin: 03/19/21 14:20 Dose: 1 mg Documented by: RLDELMY Hydromorphone HCl (Hydromorphone 1 Mg Inj) 1 mg IV NOW ONE Stop: 03/19/21 16:23 Last Admin: 03/19/21 16:25 Dose: 1 mg Documented by: MAKSIM Sodium Chloride (Normal Saline 0.9%) 1,000 mls @ 1,000 mls/hr IV BOLUS ONE Stop: 03/19/21 14:48 Last Infusion: 03/19/21 15:46 Dose: 0 mls/hr Documented by: Admin: 03/19/21 14:20 Dose: 1,000 mls/hr Documented by: MAKSIM Ceftriaxone Sodium 1,000 mg/ (Sodium Chloride) 100 mls @ 200 mls/hr IV NOW ONE Stop: 03/19/21 13:50 Last Infusion: 03/19/21 15:04 Dose: 0 mls/hr Documented by: Admin: 03/19/21 14:20 Dose: 200 mls/hr Documented by: MAKSIM Sodium Chloride (Normal Saline 0.9%) 1,000 mls @ 1,000 mls/hr IV BOLUS ONE Stop: 03/19/21 16:38 Last Infusion: 03/19/21 16:53 Dose: 0 mls/hr Documented by: Admin: 03/19/21 15:46 Dose: 1,000 mls/hr Documented by: MAKSIM Ondansetron HCl (Ondansetron 4 Mg/2 Ml Inj) 4 mg IV NOW ONE Stop: 03/19/21 13:50 Last Admin: 03/19/21 14:19 Dose: 4 mg Documented by: MAKSIM Vital Signs Vital signs: Vital Signs - 8 hr 03/19/21 13:04 03/19/21 14:24 03/19/21 14:25 Temperature 97.5 F L Pulse Rate 95 H 95 H 93 H Respiratory Rate 18 Blood Pressure 144/88 H 141/83 H Pulse Oximetry 98 98 98 03/19/21 14:30 03/19/21 15:00 03/19/21 15:30 Temperature Pulse Rate 89 93 H 90 Respiratory Rate Blood Pressure 116/73 145/81 H 143/78 H Pulse Oximetry 95 93 98 MDM - Female Genitourinary Lab Data Result diagrams: 03/19/21 14:12 03/19/21 14:12 Labs: Lab Results 03/19/21 03/19/21 03/19/21 Range/Units 14:12 14:12 14:12 WBC 7.4 (4.5-11.0) X10^3/uL RBC 3.18 L (4.0-5.2) X10^6/uL Hgb 10.9 L (12.0-16.0) g/dL Hct 31.8 L (36-46) % MCV 100.1 H (80-100) fL MCH 34.5 H (26-34) PG MCHC 34.4 (30-36) % RDW 13.5 (11.6-14.8) % Plt Count 363 (150-400) X10^3/uL Neut % (Auto) 54.0 (50-75) % Lymph % (Auto) 38.7 (25-40) % [place] % (Auto) 6.2 (3-14) % Eos % (Auto) 0.4 L (2-4) % Baso % (Auto) 0.7 (0-2) % Neut # (Auto) 4000 (1670-5491) /uL Lymph # (Auto) 2900 (3801-1480) /uL [place] # (Auto) 500 (0-900) /uL Eos # (Auto) 0 (0-450) /uL Baso # (Auto) 100 (0-100) /uL Sodium 140 (137-145) mmol/L Potassium 4.1 (3.4-5.1) mmol/L Chloride 110 H (98-107) mmol/L Carbon Dioxide 24 (22-32) mmol/L BUN 11 (7-17) mg/dL Creatinine 0.51 L (0.52-1.04) mg/dL Estimated GFR > 60.0 (>60) mL/min BUN/Creatinine Ratio 21.6 (6-22) Glucose 129 H (70-100) mg/dL Lactate 3.3 H (0.7-2.1) mmol/L Calcium 8.6 (8.4-10.2) mg/dL Total Bilirubin 0.2 (0.2-1.3) mg/dL AST 22 (14-36) IU/L ALT 15 (<35) IU/L Alkaline Phosphatase 168 H (38-126) U/L Total Protein 6.5 (6.3-8.2) g/dL Albumin 3.3 L (3.5-5.0) g/dL Globulin 3.2 (1.7-4.1) g/dL Albumin/Globulin Ratio 1.0 (1.0-2.8) 03/19/ Range/Units 16:51 WBC (4.5-11.0) X10^3/uL RBC (4.0-5.2) X10^6/uL Hgb (12.0-16.0) g/dL Hct (36-46) % MCV (80-100) fL MCH (26-34) PG MCHC (30-36) % RDW (11.6-14.8) % Plt Count (150-400) X10^3/uL Neut % (Auto) (50-75) % Lymph % (Auto) (25-40) % [place] % (Auto) (3-14) % Eos % (Auto) (2-4) % Baso % (Auto) (0-2) % Neut # (Auto) (5862-4056) /uL Lymph # (Auto) (5319-1957) /uL [place] # (Auto) (0-900) /uL Eos # (Auto) (0-450) /uL Baso # (Auto) (0-100) /uL Sodium (137-145) mmol/L Potassium (3.4-5.1) mmol/L Chloride (98-107) mmol/L Carbon Dioxide (22-32) mmol/L BUN (7-17) mg/dL Creatinine (0.52-1.04) mg/dL Estimated GFR (>60) mL/min BUN/Creatinine Ratio (6-22) Glucose (70-100) mg/dL Lactate 1.3 (0.7-2.1) mmol/L Calcium (8.4-10.2) mg/dL Total Bilirubin (0.2-1.3) mg/dL AST (14-36) IU/L ALT (<35) IU/L Alkaline Phosphatase (38-126) U/L Total Protein (6.3-8.2) g/dL Albumin (3.5-5.0) g/dL Globulin (1.7-4.1) g/dL Albumin/Globulin Ratio (1.0-2.8) MDM Narrative Medical decision making narrative: Patient with reassuring history and physical. She's had pain well controlled and urine notes multiple organisms. Labs are reassuring, lactate improved to normal range. Pain well controlled. Return precautions discussed and questions answered to his apparent satisfaction Discharge Plan Departure Patient Disposition: Home Clinical Impression: Pyelonephritis Instructions: DI for Kidney Infection Activity Restrictions/Additional Instructions: *You have been diagnosed with [multi organism urinary tract infection *What to do: *Please continue to take your regular medications as directed. [x ] New medication prescriptions sent to your pharmacy: [facility]] [ ] New medication written as a paper prescription [ ] No new medications given *Please follow up with your primary care provider in 2-3 days, call for an appointment. Let them know you were seen in the Emergency Department and that we ask that you be seen in follow up. We will electronically transmit a record of today's note if your PCP is in our system *If you do not have a primary care provider please contact the [facility] Resource line at [phone]. They will ask some questions about your medical history and help get you set up with a doctor in the community. *Return to Emergency Department if you should have any new, worsening or concerning symptoms, such as [fever greater than 101 F, shaking chills, worsening pain, persistent vomiting or other bothersome symptoms] Prescriptions: New sulfamethoxazole-trimethoprim [Bactrim DS] 800-160 mg tablet 1 tab PO BID 10 Days Qty: 20 0RF ciprofloxacin HCl 500 mg tablet 500 mg PO BID Qty: 20 0RF hydrocodone-acetaminophen 5-325 mg tablet 1 tab PO Q4-6H PRN (Reason: pain) Qty: 10 0RF No Action hydroxyzine HCl 25 MG tablet 50 mg PO BID Qty: 0 0RF albuterol sulfate [Proventil HFA] 90 MCG/PUFF HFA aerosol inhaler 2 puff INH Q4HP PRN (Reason: Shortness Of Breath) Qty: 0 0RF gabapentin [Neurontin] 300 MG capsule 900 mg PO BID Qty: 0 0RF multivitamin [Multiple Vitamins] 1 EACH tablet 1 tab PO DAILY Qty: 0 0RF zolpidem [Ambien] 10 MG tablet 10 mg PO HS PRN (Reason: Insomnia) Qty: 0 0RF lorazepam 0.5 mg tablet 0.5 mg PO BEDTIME 0RF methocarbamol 500 mg tablet 1,000 mg PO QID 0RF Humulin N NPH Insulin KwikPen 100 unit/mL (3 mL) insulin pen 15 unit SUBCUT BID 0RF quetiapine 100 mg Tablet 300 mg PO BEDTIME 0RF magnesium glycinate 100 mg Tablet 800 mg PO BEDTIME 0RF melatonin 10 mg Tablet 20 mg PO BEDTIME 0RF promethazine 25 mg suppository 25 mg UT Q4-6H PRN (Reason: nausea and vomiting) Qty: 12 0RF prazosin 1 mg capsule 1 mg PO BEDTIME 0RF Label Comments: TAKE 1 CAPSULE BY MOUTH EVERY NIGHT FOR NIGHTMARES vitamin E 400 unit Tablet 400 unit PO DAILY 0RF docusate sodium 100 mg Capsule 100 mg PO DAILY 0RF cholecalciferol (vitamin D3) [Vitamin D3] 25 mcg (1,000 unit) Tablet 25 mcg PO DAILY 0RF ropinirole [Requip] 0.25 mg tablet 0.5 mg PO BEDTIME 0RF Rx Instructions: administer 1-3 hours before bedtime hydrocodone-acetaminophen 5-325 mg tablet 1 tab PO BID PRN (Reason: pain) Qty: 5 0RF hydrocodone-acetaminophen 5-325 mg tablet 1 tab PO Q4-6H PRN (Reason: pain) Qty: 10 0RF hydrocodone-acetaminophen 5-325 mg tablet 1 tab PO Q6H PRN (Reason: pain) Qty: 10 0RF omeprazole 20 mg capsule,delayed release(DR/EC) 40 mg PO BID 0RF ondansetron 4 mg tablet,disintegrating 1 tab Translingual Q6H PRN (Reason: Nausea) 0RF Probiotic 1 tab PO DAILY 0RF Label Comments: Pt doubles probiotic when on antibiotics. promethazine 25 mg tablet 25 mg PO TID PRN (Reason: nausea and vomiting) Qty: 10 0RF prochlorperazine maleate 10 mg tablet 10 mg PO Q6H PRN (Reason: Nausea) 0RF losartan 50 mg Tablet 50 mg PO DAILY Qty: 30 0RF nystatin 100,000 unit/mL Suspension 500,000 unit PO QID Qty: 60 0RF linezolid 600 mg tablet 600 mg PO Q12H Qty: 14 0RF levofloxacin 500 mg tablet 500 mg PO DAILY Qty: 3 0RF hydromorphone 2 mg tablet 2 mg PO Q6H Qty: 10 0RF cephalexin 500 mg capsule 500 mg PO TID Qty: 21 0RF Referrals: Fadi Ko DO [Primary Care Provider] -
[2021-03-19 14:19] LABS: Add Manual Diff / Slide Review NO; Basophils Absolute Auto 100 /uL (0-100); Basophils Percent Auto 0.7 % (0-2); Eosinophils Absolute Auto 0 /uL (0-450); Eosinophils Percent Auto 0.4 % (2-4); Hematocrit 31.8 % (36-46); Hemoglobin 10.9 g/dL (12.0-16.0); Lymphocytes Absolute Auto 2900 /uL (1100-4500); Lymphocytes Percent Auto 38.7 % (25-40); Mean Corpuscular HGB Conc 34.4 % (30-36); Mean Corpuscular Hemoglobin 34.5 PG (26-34); Mean Corpuscular Volume 100.1 fL (80-100); Monocytes Absolute Auto 500 /uL (0-900); Monocytes Percent Auto 6.2 % (3-14); Neutrophils Absolute Auto 4000 /uL (1500-7000); Platelet Count 363 X10^3/uL (150-400); Red Blood Cell Count 3.18 X10^6/uL (4.0-5.2); Red Cell Distribution Width 13.5 % (11.6-14.8); White Blood Cell Count 7.4 X10^3/uL (4.5-11.0)
[2021-03-19] MEDS: ONDANSETRON 4 MG/2 ML INJ IV (14:19)
[2021-03-19] MEDS: HYDROMORPHONE 1 MG INJ IV ×2 (14:20→16:25)
[2021-03-19] MEDS: cefTRIAXone 1,000 MG in SODIUM CHLORIDE 0.9% 100 ML 200 ML IV (14:20)
[2021-03-19] MEDS: SODIUM CHLORIDE 0.9% 1,000 ML 1000 ML IV ×2 (14:20→15:46)
[2021-03-19 14:33] LABS: Alanine Aminotransferase 15 IU/L (<35); Albumin 3.3 g/dL (3.5-5.0); Alkaline Phosphatase 168 U/L (38-126); Aspartate Aminotransferase 22 IU/L (14-36); BUN Creatinine Ratio 21.6 (6-22); Bilirubin Total 0.2 mg/dL (0.2-1.3); Blood Urea Nitrogen 11 mg/dL (7-17); Calcium 8.6 mg/dL (8.4-10.2); Carbon Dioxide 24 mmol/L (22-32); Chloride 110 mmol/L (98-107); Estimated Glomerular Filt Rate > 60.0 mL/min (>60); Globulin 3.2 g/dL (1.7-4.1); Glucose 129 mg/dL (70-100); HEMOLYSIS < 15 (0-50); Lactate (Lactic Acid) 3.3 mmol/L (0.7-2.1); Potassium 4.1 mmol/L (3.4-5.1); Sodium 140 mmol/L (137-145); Total Protein 6.5 g/dL (6.3-8.2)
[2021-03-19 16:15] LABS: Reflexed Lactate in 2 Hours Y
[2021-03-19 17:29] LABS: Lactate 2HR (Lactic Acid Rflx) 1.3 mmol/L (0.7-2.1)
== END 2021-03-19 18:11 | disposition home or self-care (01) ==
PROVIDERS: Emergency Provider Emergency Medicine; PCP Family Medicine
DX: N12 Tubulo-interstitial nephritis, not specified as acute or chronic (principal)
CPT/HCPCS: 36415; 80053; 83605; 85025; 87040; 96365; 96375; 96376; 99284; J0696; J1170; J2405

== ENCOUNTER 2021-03-27 16:47 | Emergency (ER) | payer OTHER, SELFPAY ==
[2020-09-28 11:54] VITALS: BMI 18.3
[2021-03-27 16:54] VITALS: BP 132/80; PULSE 90; RESP 22; TEMP 36.9; O2SAT 98; BMI 18.1
--- NOTE | 2021-03-27 17:15 | ED_ITS ---
HPI - Abdominal Pain <Genesis Gomes [facility] - Last Filed: 03/27/21 20:46> General Chief Complaint: Abdominal Pain Stated Complaint: sharp pain when swallowing or eating food Time Seen by Provider: 03/27/21 17:07 Source: patient and family Mode of arrival: Ambulatory History of Present Illness HPI narrative: 55-year-old female presents to the emergency department for epigastric pain from what she thinks is esophageal pain after she swallowed a chip wrong 2 days ago. Patient reports that she still feels burning in her esophagus every time she swallows or eats food. She denies any vomiting, fever, illness, abdominal pain, chest pain, shortness of breath, wheezing, difficulty swallowing, or any other symptom. Patient also reports that she went to the walk-in clinic today and had an x-ray but today decided to come to the emergency department for her esophageal pain. Patient was seen at the would be walk-in clinic today and had a normal x-ray result. Patient is very angry in her room, swore at me, denies wanting a GI cocktail and is claiming that I am not willing to help her. These are things that were not said, she has been very agitated since I walked into her room. She denies any she vomiting, there has not been any blood in her urine or her stool. Related Data Home Medications Medication Instructions Recorded Confirmed albuterol sulfate 90 mcg/actuation 2 puff INH Q4HP PRN #0 01/08/13 09/28/20 aerosol inhaler (Proventil HFA) hydroxyzine HCl 25 mg tablet 50 mg PO BID #0 01/08/13 09/28/20 gabapentin 300 mg capsule 900 mg PO BID #0 07/04/17 09/28/20 (Neurontin) multivitamin (Multiple Vitamins) 1 tab PO DAILY #0 07/04/17 09/28/20 zolpidem 10 mg tablet (Ambien) 10 mg PO HS PRN #0 07/04/17 09/28/20 Probiotic 1 tab PO DAILY 09/26/17 09/28/20 omeprazole 20 mg capsule,delayed 40 mg PO BID 09/26/17 09/28/20 release ondansetron 4 mg disintegrating 1 tab TRANSLINGUAL Q6H PRN 09/26/17 09/28/20 tablet lorazepam 0.5 mg tablet 0.5 mg PO BEDTIME 05/30/18 09/28/20 insulin NPH isoph U-100 human 100 15 unit SUBCUT BID 05/17/19 09/28/20 unit/mL (3 mL) subcutaneous pen (Humulin N NPH U-100 Insulin KwikPen) methocarbamol 500 mg tablet 1,000 mg PO QID 05/17/19 09/28/20 quetiapine 100 mg tablet 300 mg PO BEDTIME 11/04/19 09/28/20 magnesium glycinate 100 mg tablet 800 mg PO BEDTIME 12/08/19 09/28/20 melatonin 10 mg tablet 20 mg PO BEDTIME 12/08/19 09/28/20 cholecalciferol (vitamin D3) 25 25 mcg PO DAILY 08/31/20 09/28/20 mcg (1,000 unit) tablet (Vitamin D3) docusate sodium 100 mg capsule 100 mg PO DAILY 08/31/20 09/28/20 prazosin 1 mg capsule 1 mg PO BEDTIME 08/31/20 09/28/20 ropinirole 0.25 mg tablet (Requip) 0.5 mg PO BEDTIME 08/31/20 09/28/20 vitamin E 400 unit tablet 400 unit PO DAILY 08/31/20 09/28/20 prochlorperazine maleate 10 mg 10 mg PO Q6H PRN 09/28/20 09/28/20 tablet Previous Rx's Medication Instructions Recorded promethazine 25 mg tablet 25 mg PO TID PRN #10 tab 04/16/20 promethazine 25 mg rectal 25 mg MN Q4-6H PRN #12 ea 04/19/20 suppository hydromorphone 2 mg tablet 2 mg PO Q6H #10 tab 09/30/20 levofloxacin 500 mg tablet 500 mg PO DAILY #3 tab 09/30/20 linezolid 600 mg tablet 600 mg PO Q12H #14 tab 09/30/20 losartan 50 mg tablet 50 mg PO DAILY #30 tab 09/30/20 nystatin 100,000 unit/mL oral 500,000 unit (5 mL) PO QID #60 ml 09/30/20 suspension hydrocodone 5 mg-acetaminophen 325 1 tab PO BID PRN #5 tab 11/04/20 mg tablet hydrocodone 5 mg-acetaminophen 325 1 tab PO Q4-6H PRN #10 tab 12/24/20 mg tablet hydrocodone 5 mg-acetaminophen 325 1 tab PO Q6H PRN #10 tab 02/07/21 mg tablet cephalexin 500 mg capsule 500 mg PO TID #21 cap 03/12/21 ciprofloxacin HCl 500 mg tablet 500 mg PO BID #20 tab 03/19/21 hydrocodone 5 mg-acetaminophen 325 1 tab PO Q4-6H PRN #10 tab 03/19/21 mg tablet Allergies Allergy/AdvReac Type Severity Reaction Status Date / Time mupirocin Allergy Unknown Verified 03/19/21 13:04 naproxen Allergy Unknown Verified 03/19/21 13:04 Penicillins Allergy Unknown SINCE Verified 03/19/21 13:04 CHILDHOOD droperidol AdvReac Unknown Verified 03/19/21 13:04 fenofibrate [FENOFIBRATE] AdvReac Unknown Verified 03/19/21 13:04 ibuprofen AdvReac Unknown NAUSEA Verified 03/19/21 13:04 metformin [METFORMIN] AdvReac Unknown Verified 03/19/21 13:04 metoclopramide AdvReac Unknown BECAME Verified 03/19/21 13:04 JITTERY AND ANXIOUS nitrofurantoin AdvReac Unknown NAUSEA Verified 03/19/21 13:04 Review of Systems <YASMANI Diego - Last Filed: 03/27/21 20:46> Review of Systems Narrative: General: denies fever, chills Head/Neck: denies headache, neck pain Eyes: denies visual changes, eye pain Cardio: denies chest pain, palpitations Respiratory: denies shortness of breath, cough GI: endorses throat pain when swallowing, no abdominal pain, nausea, vomiting, or diarrhea : denies dysuria, hematuria MSK: denies joint pain, muscle weakness Skin: denies rash, itching Neuro: denies numbness, tingling Patient History <YASMANI Diego - Last Filed: 03/27/21 20:46> Medical History Anxiety Closed fracture of left humerus Endometriosis Fibromyalgia Heart palpitations History of asthma History of chronic hypertension History of COPD History of depression History of gastrointestinal ulcer History of kidney stones History of migraine History of panic attacks History of type 2 diabetes mellitus Hyperlipidemia Interstitial cystitis UTI (urinary tract infection) Surgical History History of urostomy S/P appendectomy Status post hysterectomy Status post left rotator cuff repair Family History Mother Diabetes mellitus Lupus Social History household members: spouse Smoking Status: Current every day smoker alcohol intake: current Smoking Status: Current every day smoker tobacco type: cigarettes alcohol intake frequency: holidays/special occasions only Substance Use Type: former substance user and marijuana Exam <YASMANI Diego - Last Filed: 03/27/21 20:46> Narrative Exam Narrative: Independently reviewed vitals signs and nursing notes. General: Awake, alert, nontoxic, no cardiorespiratory distress Head/Neck: Atraumatic, neck full range of motion Eyes: EOMI, conjunctiva normal Nose: nares patent, no rhinorrhea Mouth/Throat: moist mucus membranes, posterior pharynx normal, no oral lesions Cardio: Regular rate and rhythm, no peripheral edema Respiratory: respirations unlabored without wheezing, stridor, or rales. No retractions. GI: Abdomen soft, nontender, nephrostomy tubes present MSK: Moves all extremities, neurovascularly intact Skin: Normal capillary refill, no rash Neuro: Normal speech and cognition, normal gait Initial Vital Signs Initial Vital Signs: Vital Signs Temperature 98.5 F 03/27/21 16:54 Pulse Rate 90 03/27/21 16:54 Respiratory Rate 22 03/27/21 16:54 Blood Pressure 132/80 03/27/21 16:54 Pulse Oximetry 98 03/27/21 16:54 <Vivi Montoya DO - Last Filed: 03/29/21 15:59> Initial Vital Signs Initial Vital Signs: Vital Signs Temperature 98.5 F 03/27/21 16:54 Pulse Rate 90 03/27/21 16:54 Respiratory Rate 22 03/27/21 16:54 Blood Pressure 132/80 03/27/21 16:54 Pulse Oximetry 98 03/27/21 16:54 Course <YASMANI Diego - Last Filed: 03/27/21 20:46> Orders Ordered: Discontinued Medications Al Hydrox/Mg Hydrox/Simethicone 20 ml/ Lidocaine HCl 15 ml 0 ml PO NOW ONE Stop: 03/27/21 17:17 Last Admin: 03/27/21 17:34 Dose: 35 ml Documented by: RONALD Vital Signs Vital signs: Vital Signs - 8 hr 03/27/21 16:54 Temperature 98.5 F Pulse Rate 90 Respiratory Rate 22 Blood Pressure 132/80 Pulse Oximetry 98 <Vivi Montoya DO - Last Filed: 03/29/21 15:59> Orders Ordered: Discontinued Medications Al Hydrox/Mg Hydrox/Simethicone 20 ml/ Lidocaine HCl 15 ml 0 ml PO NOW ONE Stop: 03/27/21 17:17 Last Admin: 03/27/21 17:34 Dose: 35 ml Documented by: RSSANTOS Vital Signs Vital signs: Vital Signs - 8 hr 03/27/21 16:54 Temperature 98.5 F Pulse Rate 90 Respiratory Rate 22 Blood Pressure 132/80 Pulse Oximetry 98 MDM - Abdominal Pain <YASMANI Diego - Last Filed: 03/27/21 20:46> MDM Narrative Medical decision making narrative: 55-year-old female presents to the emergency department for throat pain associated from when she swallowed a partial chip and it likely cause an abrasion in her esophagus. Patient has had no bleeding, no vomiting, no swallowing difficulties, no abdominal pain, she has been afebrile, and was given a GI cocktail and reports this was helpful for her pain. She denied need for any other medications or concerns. Patient is appropriate and amenable to discharge home. Vital signs are stable on repeat examination is unremarkable. Patient has been informed of results. Patient has been given strict return to ER precautions for any new or worsening symptoms. Patient understands to follow up closely with outpatient providers as instructed. Patient understands plan and agrees to discharge home. All questions and concerns answered at this time. Discharge Plan Departure Patient Disposition: Home Clinical Impression: Throat pain in adult Activity Restrictions/Additional Instructions: *You have been diagnosed with throat pain most likely an esophageal abrasion. Please use Pepto-Bismol as needed for the next few days until this gets better. Please avoid anything acidic, sharp, anything that worsens her pain. Tonight you received a GI cocktail which hopefully numbed it up in made it feel better. Please follow-up with your primary care provider if this is ongoing. I hope you feel better soon please return for any new or worsening problems. *What to do: *Please continue to take your regular medications as directed. [ ] New medication prescriptions sent to your pharmacy: [ ] [ ] New medication written as a paper prescription [ x] No new medications given *Please follow up with your primary care provider in 2-3 days, call for an appointment. Let them know you were seen in the Emergency Department and that we ask that you be seen in follow up. We will electronically transmit a record of today's note if your PCP is in our system *If you do not have a primary care provider please contact the [facility] Resource line at [phone]. They will ask some questions about your medical history and help get you set up with a doctor in the community. *Return to Emergency Department if you should have any new, worsening or concerning symptoms, such as [fever greater than 101F, chills, worsening pain, persistent vomiting or other bothersome symptoms] Prescriptions: No Action hydroxyzine HCl 25 MG tablet 50 mg PO BID Qty: 0 0RF albuterol sulfate [Proventil HFA] 90 MCG/PUFF HFA aerosol inhaler 2 puff INH Q4HP PRN (Reason: Shortness Of Breath) Qty: 0 0RF gabapentin [Neurontin] 300 MG capsule 900 mg PO BID Qty: 0 0RF multivitamin [Multiple Vitamins] 1 EACH tablet 1 tab PO DAILY Qty: 0 0RF zolpidem [Ambien] 10 MG tablet 10 mg PO HS PRN (Reason: Insomnia) Qty: 0 0RF lorazepam 0.5 mg tablet 0.5 mg PO BEDTIME 0RF methocarbamol 500 mg tablet 1,000 mg PO QID 0RF Humulin N NPH Insulin KwikPen 100 unit/mL (3 mL) insulin pen 15 unit SUBCUT BID 0RF quetiapine 100 mg Tablet 300 mg PO BEDTIME 0RF magnesium glycinate 100 mg Tablet 800 mg PO BEDTIME 0RF melatonin 10 mg Tablet 20 mg PO BEDTIME 0RF promethazine 25 mg suppository 25 mg MN Q4-6H PRN (Reason: nausea and vomiting) Qty: 12 0RF prazosin 1 mg capsule 1 mg PO BEDTIME 0RF Label Comments: TAKE 1 CAPSULE BY MOUTH EVERY NIGHT FOR NIGHTMARES vitamin E 400 unit Tablet 400 unit PO DAILY 0RF docusate sodium 100 mg Capsule 100 mg PO DAILY 0RF cholecalciferol (vitamin D3) [Vitamin D3] 25 mcg (1,000 unit) Tablet 25 mcg PO DAILY 0RF ropinirole [Requip] 0.25 mg tablet 0.5 mg PO BEDTIME 0RF Rx Instructions: administer 1-3 hours before bedtime hydrocodone-acetaminophen 5-325 mg tablet 1 tab PO BID PRN (Reason: pain) Qty: 5 0RF hydrocodone-acetaminophen 5-325 mg tablet 1 tab PO Q4-6H PRN (Reason: pain) Qty: 10 0RF hydrocodone-acetaminophen 5-325 mg tablet 1 tab PO Q6H PRN (Reason: pain) Qty: 10 0RF omeprazole 20 mg capsule,delayed release(DR/EC) 40 mg PO BID 0RF ondansetron 4 mg tablet,disintegrating 1 tab Translingual Q6H PRN (Reason: Nausea) 0RF Probiotic 1 tab PO DAILY 0RF Label Comments: Pt doubles probiotic when on antibiotics. promethazine 25 mg tablet 25 mg PO TID PRN (Reason: nausea and vomiting) Qty: 10 0RF prochlorperazine maleate 10 mg tablet 10 mg PO Q6H PRN (Reason: Nausea) 0RF losartan 50 mg Tablet 50 mg PO DAILY Qty: 30 0RF nystatin 100,000 unit/mL Suspension 500,000 unit PO QID Qty: 60 0RF linezolid 600 mg tablet 600 mg PO Q12H Qty: 14 0RF levofloxacin 500 mg tablet 500 mg PO DAILY Qty: 3 0RF hydromorphone 2 mg tablet 2 mg PO Q6H Qty: 10 0RF cephalexin 500 mg capsule 500 mg PO TID Qty: 21 0RF ciprofloxacin HCl 500 mg tablet 500 mg PO BID Qty: 20 0RF hydrocodone-acetaminophen 5-325 mg tablet 1 tab PO Q4-6H PRN (Reason: pain) Qty: 10 0RF Referrals: Fadi Ko DO [Primary Care Provider] - <Vivi Montoya DO - Last Filed: 03/29/21 15:59> Cosign ED Attending Hyunature Attestation: I was immediately available in the department for consultation. Documentation has been reviewed. I agree with assessment and plan.
[2021-03-27] MEDS: MAG HYDROX/ALUMINUM/SIMETH SUS 20 ML, LIDOCAINE VISCOUS 2% 15 ML PO (17:34)
== END 2021-03-27 18:29 | disposition home or self-care (01) ==
PROVIDERS: Emergency Provider Nurse Practitioner Critical Care Medicine; PCP Family Medicine
DX: R07.0 Pain in throat (principal); F17.210 Nicotine dependence, cigarettes, uncomplicated
CPT/HCPCS: 99282; 99283

== ENCOUNTER 2021-04-12 11:00 | Emergency (ER) | payer OTHER, SELFPAY ==
[2020-09-28 11:54] VITALS: BMI 18.3
[2021-04-12 11:27] VITALS: BP 150/17; PULSE 100; RESP 18; TEMP 36.9; O2SAT 100; BMI 18.1
--- NOTE | 2021-04-12 11:50 | ED_ITS ---
HPI - Sepsis General Chief Complaint: Fall Mode of arrival: Ambulatory Source: patient and family Limitations: no limitations Evaluation Sepsis Screen: No Definite Risk Sepsis Infection Criteria Present: None Narrative: This is a 55-year-old female with a complex medical history including diabetes, frequent UTIs and pyelonephritis, febrile BRANDON who had a fall earlier in the week patient was getting out of bed, lost her balance and hit the right side of her face on the case. Patient was seen at an urgent care had x-ray imaging but continues to have pain over the right TMJ area radiating towards her ear, right jaw. Patient states she has pain with opening closing and had had difficulty with eating and drinking as well as taking her tablets. She did have some bruising underneath which appears to be improving she has not had new bruising or decreasing swelling since then. Patient denies any loss of consciousness. She denies any neck back pain. No chest pain or shortness of breath. She did have some nausea this morning. She had not taken her Zofran today. No other GI or urinary symptoms. Review of Systems Review of Systems ROS Unobtainable: All systems reviewed & are unremarkable except as noted in HPI and below Patient History Medical History (Updated 04/12/21 @ 12:46 by Xuan Garcia DO) Anxiety Closed fracture of left humerus Endometriosis Fibromyalgia Heart palpitations History of asthma History of chronic hypertension History of COPD History of depression History of gastrointestinal ulcer History of kidney stones History of migraine History of panic attacks History of type 2 diabetes mellitus Hyperlipidemia Interstitial cystitis UTI (urinary tract infection) Surgical History History of urostomy S/P appendectomy Status post hysterectomy Status post left rotator cuff repair Family History Mother Diabetes mellitus Lupus Social History household members: spouse Smoking Status: Current every day smoker alcohol intake: current Smoking Status: Current every day smoker tobacco type: cigarettes alcohol intake frequency: holidays/special occasions only Substance Use Type: former substance user and marijuana Exam Narrative Exam Narrative: GEN: Thin female, alert and oriented x 3, patient appears to be in mild distress. HEENT: Atraumatic, pupils are equal round reactive to light, extraocular movements are intact, nares are clear, TMs are clear with no fluid, there is no conjunctival pallor. Throat is clear without any exudates, erythema, tonsillar enlargement or uvular deviation, patient has generalized tenderness over the right cheek, mandible. No obvious deformity. Patient has some ecchymosis submental, there is some mild swelling. Patient is able to open her mouth for me to view inside but has pain with opening and does not fully open. No cervical vertebral tenderness. HEART: Regular rate and rhythm without murmur, clicks, rubs. LUNGS:Lungs clear to auscultation, no wheezes, rales, crackles, chest moves symmetrically ABD:bowel sounds normal, soft, non-tender, no guarding, rebound, rigidity, no masses noted, no hepatosplenomegaly MSCL: muscles strength 5/5 upper and lower extremities, full range of motion, normal gait NEURO:CN 2-12 intact, sensation normal Initial Vital Signs Initial Vital Signs: Vital Signs Temperature 98.5 F 04/12/21 11:27 Pulse Rate 100 H 04/12/21 11:27 Respiratory Rate 18 04/12/21 11:27 Blood Pressure 150/17 H 04/12/21 11:27 Pulse Oximetry 100 04/12/21 11:[address] [place] [address] Head Rule Age <16 years old: No Patient on blood thinners: No Seizure after injury: No Exclusion: Patient NOT Excluded, Proceed to next steps GCS < 15 at 2 hr post trauma: No Suspected open or depressed skull fracture: No Any sign of basilar skull fracture (hemotympanum, raccoon eyes, Yen's sign, CSF shelly-/rhinorrhea): No Two or more episodes of vomiting: No Age greater or equal to 65 years: No Retrograde amnesia to the event greater or equal to 30 min: No Dangerous Mechanism (pedestrian vs. mv, occupant ejected from mv, fall from >3 ft or > 5 stairs): No Recommendation: CT unnecessary Course Orders Ordered: ED Orders 04/12/21 12:02 CT facial bones wo con Stat Discontinued Medications Hydrocodone Bitart/Acetaminophen (Hydrocodone/Acet 5/325 Tablet) 2 tab PO NOW ONE Stop: 04/12/21 12:03 Last Admin: 04/12/21 12:47 Dose: 2 tab Documented by: DANG Ondansetron HCl (Ondansetron 4 Mg Odt) 4 mg SL NOW ONE Stop: 04/12/21 12:03 Last Admin: 04/12/21 12:47 Dose: 4 mg Documented by: DANG Reevaluation(s) Reevaluation #1: [place] [facility] did discuss that [facility] is also an option if they would like to be seen sooner. Both patient and defer. Discussed Dr. Ortez hours plans. Plan for narcotic pain medicatons, will use liquid. Soft diet. Return precautions. Consultations Consultation #1: Dr. Blas, ENT. Needs likely [facility]. He is not personally aware of anyone [facility] available for care. Time: 13:14 Consultation #2: Dr. Ortez, [facility] [place] happy to see patient. Soft diet, pain control and plan for close reduction in the office. Asks for patient info to be faxed to office. Vital Signs Vital signs: Vital Signs - 8 hr 04/12/21 11:27 04/12/21 13:49 Temperature 98.5 F Pulse Rate 100 H 99 H Respiratory Rate 18 16 Blood Pressure 150/17 H 113/86 Pulse Oximetry 100 98 Sepsis Guideline Criteria Level 1 - Infection Sepsis Infection Criteria Present: None Treatment Initiated Antibiotics:: IV antimicrobials will be initiated as soon as possible after recognition of sepsis state and within one hour for both sepsis and septic shock. MDM - Sepsis Imaging Data facial bones CT: Radiologist's Impression: Launch?[address] [address] [address] Scan Report Signed Patient: Melvi Gibbs MR#: [id number] : 1965 Acct:[id number] Age/Sex: 55 / F Date of Service: 04/12/21 Loc: ED Accession Number: [id number] ?? Procedure: CT facial bones wo con Ordering Provider: Xuan Garcia D.O. PROCEDURE:? CT FACIAL BONES WO CON ? INDICATIONS:? fall last week, persistent pain right TMJ/jaw ? TECHNIQUE:? Noncontrast 2.5 mm thick axial images acquired from the mandible through the frontal sinuses, with coronal and sagittal reformatting.? For radiation dose reduction, the following was used:? automated exposure control, adjustment of mA and/or kV according to patient size.? ? COMPARISON:? [facility], CT, CT HEAD/BRAIN WO CON, 04/08/2020, 9:43. ? FINDINGS:? Image quality:? Excellent.? ? Bones and teeth:? There is a comminuted, impacted moderate displaced fracture of the right mandibular condyle.? The mandibular condyle is subluxed anteriorly in relation to the mandibular fossa.? No additional abnormality is seen. ? Orbital bustillo are intact.? Sinus bustillo show no fracture or deformity.? Nasal bones and septum are intact.? Zygomatic arches are intact.? Pterygoid plates are intact.? Visualized portions of the skull base and auditory canals are intact.? ? Sinuses:? Paranasal sinuses are aerated, without fluid levels, mucosal thickening, or mucoceles.? Mastoid air cells are aerated.? ? Soft tissues:? No edema, masses, or fluid collections.? No enlarged lymph nodes.? No soft tissue lacerations or debris.? ? Vascular:? Visualized vascular structures appear normal in the absence of contrast.? Bony vascular foramina and canals are intact.? ? IMPRESSION:? Comminuted, moderately displaced, impacted fracture of the right mandibular condyle.? The mandibular condyle is subluxed anteriorly in relation to the mandibular fossa.? ? Dictated by: Damion Bonner M.D. on 04/12/2021 at 11:22 ? ? Approved by: Damion Bonner M.D. on 04/12/2021 at 11:27?? MDM Narrative Medical decision making narrative: This is a 55-year-old female comes emergency department with pain to the right side of the face from the 06 of April. Patient fell into a book case. She had outpatient x-rays these are not available but she is quite tender with persistent pain CT facial bones was obtained which is positive for comminuted right condylar mandibular fracture. Patient has some movement she can not open her mouth but is painful and not fully. Head CT was deferred if she is not anticoagulated is greater than 5 days out with no additional red flag changes. Patient was given some antinausea medication and pain medication in the department. I spoke with ENT who recommends [facility]. Patient and family prefer more local care. I also spoke for our local [facility] who states they are happy to care for the patient locally after reviewing her current injury. All questions answered. Discharge Plan Departure Patient Disposition: Home Clinical Impression: Mandibular fracture, closed Instructions: DI for Jaw Fracture Activity Restrictions/Additional Instructions: You do have a fracture or break of the bone of the right mandible where it connects at the jaw. I did discuss your case with Dr. Ortez who is an oral maxillofacial surgeon. He is happy to see this week for reduction. Call the office in the morning for an appointment. He recommends soft diet, you can ice the area every 10 mins. every hourly. You may take 5-10mg every 6 hours as needed for pain. Prescription sent to [facility] in [place]. Please return for fevers, increasing swelling, redness, bruising, severe headaches, persistent vomiting, rapidly worsening pain or other new or concerning symptoms. Prescriptions: New oxycodone 5 mg/5 mL solution 10 mg PO Q4-6H PRN (Reason: pain) Qty: 150 0RF No Action hydroxyzine HCl 25 MG tablet 50 mg PO BID Qty: 0 0RF albuterol sulfate [Proventil HFA] 90 MCG/PUFF HFA aerosol inhaler 2 puff INH Q4HP PRN (Reason: Shortness Of Breath) Qty: 0 0RF gabapentin [Neurontin] 300 MG capsule 900 mg PO BID Qty: 0 0RF multivitamin [Multiple Vitamins] 1 EACH tablet 1 tab PO DAILY Qty: 0 0RF zolpidem [Ambien] 10 MG tablet 10 mg PO HS PRN (Reason: Insomnia) Qty: 0 0RF lorazepam 0.5 mg tablet 0.5 mg PO BEDTIME 0RF methocarbamol 500 mg tablet 1,000 mg PO QID 0RF Humulin N NPH Insulin KwikPen 100 unit/mL (3 mL) insulin pen 15 unit SUBCUT BID 0RF quetiapine 100 mg Tablet 300 mg PO BEDTIME 0RF magnesium glycinate 100 mg Tablet 800 mg PO BEDTIME 0RF melatonin 10 mg Tablet 20 mg PO BEDTIME 0RF promethazine 25 mg suppository 25 mg NV Q4-6H PRN (Reason: nausea and vomiting) Qty: 12 0RF prazosin 1 mg capsule 1 mg PO BEDTIME 0RF Label Comments: TAKE 1 CAPSULE BY MOUTH EVERY NIGHT FOR NIGHTMARES vitamin E 400 unit Tablet 400 unit PO DAILY 0RF docusate sodium 100 mg Capsule 100 mg PO DAILY 0RF cholecalciferol (vitamin D3) [Vitamin D3] 25 mcg (1,000 unit) Tablet 25 mcg PO DAILY 0RF ropinirole [Requip] 0.25 mg tablet 0.5 mg PO BEDTIME 0RF Rx Instructions: administer 1-3 hours before bedtime hydrocodone-acetaminophen 5-325 mg tablet 1 tab PO BID PRN (Reason: pain) Qty: 5 0RF hydrocodone-acetaminophen 5-325 mg tablet 1 tab PO Q4-6H PRN (Reason: pain) Qty: 10 0RF hydrocodone-acetaminophen 5-325 mg tablet 1 tab PO Q6H PRN (Reason: pain) Qty: 10 0RF omeprazole 20 mg capsule,delayed release(DR/EC) 40 mg PO BID 0RF ondansetron 4 mg tablet,disintegrating 1 tab Translingual Q6H PRN (Reason: Nausea) 0RF Probiotic 1 tab PO DAILY 0RF Label Comments: Pt doubles probiotic when on antibiotics. promethazine 25 mg tablet 25 mg PO TID PRN (Reason: nausea and vomiting) Qty: 10 0RF prochlorperazine maleate 10 mg tablet 10 mg PO Q6H PRN (Reason: Nausea) 0RF losartan 50 mg Tablet 50 mg PO DAILY Qty: 30 0RF nystatin 100,000 unit/mL Suspension 500,000 unit PO QID Qty: 60 0RF linezolid 600 mg tablet 600 mg PO Q12H Qty: 14 0RF levofloxacin 500 mg tablet 500 mg PO DAILY Qty: 3 0RF hydromorphone 2 mg tablet 2 mg PO Q6H Qty: 10 0RF cephalexin 500 mg capsule 500 mg PO TID Qty: 21 0RF ciprofloxacin HCl 500 mg tablet 500 mg PO BID Qty: 20 0RF hydrocodone-acetaminophen 5-325 mg tablet 1 tab PO Q4-6H PRN (Reason: pain) Qty: 10 0RF Referrals: Fermin Ortez DMD [Physician] - Fadi Ko DO [Primary Care Provider] -
--- NOTE | 2021-04-12 12:02 | DI.CT.S_ITS ---
PROCEDURE: CT FACIAL BONES WO CON INDICATIONS: fall last week, persistent pain right TMJ/jaw TECHNIQUE: Noncontrast 2.5 mm thick axial images acquired from the mandible through the frontal sinuses, with coronal and sagittal reformatting. For radiation dose reduction, the following was used: automated exposure control, adjustment of mA and/or kV according to patient size. COMPARISON: [facility], CT, CT HEAD/BRAIN WO CON, 04/08/2020, 9:43. FINDINGS: Image quality: Excellent. Bones and teeth: There is a comminuted, impacted moderate displaced fracture of the right mandibular condyle. The mandibular condyle is subluxed anteriorly in relation to the mandibular fossa. No additional abnormality is seen. Orbital bustillo are intact. Sinus bustillo show no fracture or deformity. Nasal bones and septum are intact. Zygomatic arches are intact. Pterygoid plates are intact. Visualized portions of the skull base and auditory canals are intact. Sinuses: Paranasal sinuses are aerated, without fluid levels, mucosal thickening, or mucoceles. Mastoid air cells are aerated. Soft tissues: No edema, masses, or fluid collections. No enlarged lymph nodes. No soft tissue lacerations or debris. Vascular: Visualized vascular structures appear normal in the absence of contrast. Bony vascular foramina and canals are intact. IMPRESSION: Comminuted, moderately displaced, impacted fracture of the right mandibular condyle. The mandibular condyle is subluxed anteriorly in relation to the mandibular fossa. Dictated by: Damion Bonner M.D. on 04/12/2021 at 11:22 Approved by: Damion Bonner M.D. on 04/12/2021 at 11:27
[2021-04-12] MEDS: ONDANSETRON 4 MG ODT SL (12:47)
[2021-04-12] MEDS: HYDROCODONE/ACET 5/325 TABLET 2 TAB PO (12:47)
[2021-04-12 13:49] VITALS: BP 113/86; PULSE 99; RESP 16; O2SAT 98
== END 2021-04-12 13:50 | disposition home or self-care (01) ==
PROVIDERS: Emergency Provider Emergency Medicine; PCP Family Medicine
DX: S02.611A Fracture of condylar process of right mandible, initial encounter for closed fracture (principal); F17.210 Nicotine dependence, cigarettes, uncomplicated; W19.XXXA Unspecified fall, initial encounter; Y93.89 Activity, other specified
CPT/HCPCS: 70486; 99284

== ENCOUNTER 2021-05-05 10:39 | Emergency (ER) | payer OTHER, SELFPAY ==
[2020-09-28 11:54] VITALS: BMI 18.3
[2021-05-05] VITALS (11 sets, daily range): BP systolic 74–138; BP diastolic 42–81; PULSE 85–113; RESP 14–22; TEMP 36.8; O2SAT 97–100
--- NOTE | 2021-05-05 11:02 | DI.RAD.S_ITS ---
PROCEDURE: XR CHEST 1V INDICATIONS: chest pain TECHNIQUE: One view of the chest was acquired. COMPARISON: [facility], CR, XR CHEST 1V, 03/07/2021, 8:57. FINDINGS: Surgical changes and devices: Left humeral suture anchors noted. Right sided Port-A-Cath in place. Lungs and pleura: Lungs are clear. No pleural effusions or pneumothorax. Mediastinum: Mediastinal contours appear normal. Heart size is normal. Bones and chest wall: No suspicious bony lesions. Overlying soft tissues appear unremarkable. Generalized decrease in osseous mineralization noted. Old fracture deformity noted involving the left proximal humerus IMPRESSION: No acute cardiopulmonary findings Osteopenia and right Port-A-Cath in place. Approved by: Sergei Ovalles M.D. on 05/05/2021 at 12:31
[2021-05-05] MEDS: SODIUM CHLORIDE 0.9% 1,000 ML 1000 ML IV ×2 (11:30→13:10)
[2021-05-05 11:37] LABS: Add Manual Diff / Slide Review NO; Basophils Absolute Auto 0 /uL (0-100); Basophils Percent Auto 0.2 % (0-2); Eosinophils Absolute Auto 0 /uL (0-450); Eosinophils Percent Auto 0.1 % (2-4); Hematocrit 30.9 % (36-46); Hemoglobin 10.7 g/dL (12.0-16.0); Lymphocytes Absolute Auto 1200 /uL (1100-4500); Lymphocytes Percent Auto 10.9 % (25-40); Mean Corpuscular HGB Conc 34.6 % (30-36); Mean Corpuscular Hemoglobin 35.7 PG (26-34); Mean Corpuscular Volume 103.2 fL (80-100); Monocytes Absolute Auto 800 /uL (0-900); Monocytes Percent Auto 7.1 % (3-14); Neutrophils Absolute Auto 9000 /uL (1500-7000); Neutrophils Percent Auto 81.7 % (50-75); Platelet Count 338 X10^3/uL (150-400); Red Blood Cell Count 2.99 X10^6/uL (4.0-5.2)
[2021-05-05 11:53] LABS: COVID19 -Nasal RAPID Negative (Negative)
[2021-05-05 12:09] LABS: Alanine Aminotransferase 19 IU/L (<35); Albumin 2.7 g/dL (3.5-5.0); Albumin Globulin Ratio 0.9 (1.0-2.8); Alkaline Phosphatase 126 U/L (38-126); Aspartate Aminotransferase 26 IU/L (14-36); BUN Creatinine Ratio 19.4 (6-22); Bilirubin Total 0.2 mg/dL (0.2-1.3); Blood Urea Nitrogen 14 mg/dL (7-17); Calcium 8.5 mg/dL (8.4-10.2); Carbon Dioxide 19 mmol/L (22-32); Chloride 110 mmol/L (98-107); Creatine Kinase 27 U/L (30-135); Estimated Glomerular Filt Rate > 60.0 mL/min (>60); Globulin 3.1 g/dL (1.7-4.1); Glucose 234 mg/dL (70-100); HEMOLYSIS < 15 (0-50); Lipase 15 U/L (23-300); Magnesium 1.5 mg/dL (1.6-2.3); Potassium 4.2 mmol/L (3.4-5.1); Sodium 135 mmol/L (137-145); Total Protein 5.8 g/dL (6.3-8.2)
[2021-05-05 12:11] LABS: Lactate (Lactic Acid) 2.1 mmol/L (0.7-2.1)
[2021-05-05 12:14] LABS: Appearance Urine UA CLEAR; Bilirubin Urine UA NEGATIVE (NEGATIVE); Color Urine UA YELLOW; Glucose Urine UA NEGATIVE (Negative); Ketones Urine UA NEGATIVE (NEGATIVE); Leukocyte Esterase Urine UA NEGATIVE (NEGATIVE); Nitrite Urine UA NEGATIVE (Negative); Occult Blood Urine UA TRACE-LYSED (Negative); Protein Urine UA TRACE (Negative); Specific Gravity Urine UA 1.015 (1.000-1.035); Urobilinogen Urine UA 0.2 E.U./dL (0.2)
[2021-05-05 12:16] LABS: pH Urine UA 6.5 (4.5-8.0)
[2021-05-05 12:20] LABS: Troponin I < 0.012 ng/mL (0.01-0.034)
--- NOTE | 2021-05-05 12:23 | ED.WEAKNESS ---
HPI - Weakness General Chief complaint: Weakness Stated complaint: Really light headed Time Seen by Provider: 05/05/21 11:18 Source: patient Mode of arrival: Ambulatory Limitations: no limitations History of Present Illness HPI Narrative: This is a 55-year-old female with complex medical history including diabetes, frequent UTIs and pyelonephritis with a nephrostomy tube. Patient states she has been having lightheadedness and occasional near syncopal episodes this week with increasing abdominal and flank pain for the last 3 days as well as some chest discomfort. Patient states she has had nausea and vomiting for the past 3 days intermittently. She has had persistent cough but no new changes. She has been afebrile. Patient states no new changes in the coloration of her urine output, decrease in output. She has been having regular bowel movements they have been dark in coloration she takes stool softeners. Patient is accompanied by her today. Related Data Home Medications Medication Instructions Recorded Confirmed albuterol sulfate 90 mcg/actuation 2 puff INH Q4HP PRN #0 01/08/13 09/28/20 aerosol inhaler (Proventil HFA) hydroxyzine HCl 25 mg tablet 50 mg PO BID #0 01/08/13 09/28/20 gabapentin 300 mg capsule 900 mg PO BID #0 07/04/17 09/28/20 (Neurontin) multivitamin (Multiple Vitamins) 1 tab PO DAILY #0 07/04/17 09/28/20 zolpidem 10 mg tablet (Ambien) 10 mg PO HS PRN #0 07/04/17 09/28/20 Probiotic 1 tab PO DAILY 09/26/17 09/28/20 omeprazole 20 mg capsule,delayed 40 mg PO BID 09/26/17 09/28/20 release ondansetron 4 mg disintegrating 1 tab TRANSLINGUAL Q6H PRN 09/26/17 09/28/20 tablet lorazepam 0.5 mg tablet 0.5 mg PO BEDTIME 05/30/18 09/28/20 insulin NPH isoph U-100 human 100 15 unit SUBCUT BID 05/17/19 09/28/20 unit/mL (3 mL) subcutaneous pen (Humulin N NPH U-100 Insulin KwikPen) methocarbamol 500 mg tablet 1,000 mg PO QID 05/17/19 09/28/20 quetiapine 100 mg tablet 300 mg PO BEDTIME 11/04/19 09/28/20 magnesium glycinate 100 mg tablet 800 mg PO BEDTIME 12/08/19 09/28/20 melatonin 10 mg tablet 20 mg PO BEDTIME 12/08/19 09/28/20 cholecalciferol (vitamin D3) 25 25 mcg PO DAILY 08/31/20 09/28/20 mcg (1,000 unit) tablet (Vitamin D3) docusate sodium 100 mg capsule 100 mg PO DAILY 08/31/20 09/28/20 prazosin 1 mg capsule 1 mg PO BEDTIME 08/31/20 09/28/20 ropinirole 0.25 mg tablet (Requip) 0.5 mg PO BEDTIME 08/31/20 09/28/20 vitamin E 400 unit tablet 400 unit PO DAILY 08/31/20 09/28/20 prochlorperazine maleate 10 mg 10 mg PO Q6H PRN 09/28/20 09/28/20 tablet Previous Rx's Medication Instructions Recorded promethazine 25 mg tablet 25 mg PO TID PRN #10 tab 04/16/20 promethazine 25 mg rectal 25 mg NJ Q4-6H PRN #12 ea 04/19/20 suppository hydromorphone 2 mg tablet 2 mg PO Q6H #10 tab 09/30/20 levofloxacin 500 mg tablet 500 mg PO DAILY #3 tab 09/30/20 linezolid 600 mg tablet 600 mg PO Q12H #14 tab 09/30/20 losartan 50 mg tablet 50 mg PO DAILY #30 tab 09/30/20 nystatin 100,000 unit/mL oral 500,000 unit (5 mL) PO QID #60 ml 09/30/20 suspension hydrocodone 5 mg-acetaminophen 325 1 tab PO BID PRN #5 tab 11/04/20 mg tablet hydrocodone 5 mg-acetaminophen 325 1 tab PO Q4-6H PRN #10 tab 12/24/20 mg tablet hydrocodone 5 mg-acetaminophen 325 1 tab PO Q6H PRN #10 tab 02/07/21 mg tablet cephalexin 500 mg capsule 500 mg PO TID #21 cap 03/12/21 ciprofloxacin HCl 500 mg tablet 500 mg PO BID #20 tab 03/19/21 hydrocodone 5 mg-acetaminophen 325 1 tab PO Q4-6H PRN #10 tab 03/19/21 mg tablet oxycodone 5 mg/5 mL oral solution 10 mg (10 mL) PO Q4-6H PRN #150 ml 04/12/21 ciprofloxacin HCl 500 mg tablet 500 mg PO BID #20 tab 05/05/21 hydrocodone 5 mg-acetaminophen 325 1 tab PO Q6H PRN #10 tab 05/05/21 mg tablet sulfamethoxazole 800 1 tab PO Q12H #20 tab 05/05/21 mg-trimethoprim 160 mg tablet (Bactrim DS) Allergies Allergy/AdvReac Type Severity Reaction Status Date / Time mupirocin Allergy Unknown Verified 05/05/21 11:00 naproxen Allergy Unknown Verified 05/05/21 11:00 Penicillins Allergy Unknown SINCE Verified 05/05/21 11:00 CHILDHOOD droperidol AdvReac Unknown Verified 05/05/21 11:00 fenofibrate [FENOFIBRATE] AdvReac Unknown Verified 05/05/21 11:00 ibuprofen AdvReac Unknown NAUSEA Verified 05/05/21 11:00 metformin [METFORMIN] AdvReac Unknown Verified 05/05/21 11:00 metoclopramide AdvReac Unknown BECAME Verified 05/05/21 11:00 JITTERY AND ANXIOUS nitrofurantoin AdvReac Unknown NAUSEA Verified 05/05/21 11:00 Review of Systems Review of Systems ROS Unobtainable: All systems reviewed & are unremarkable except as noted in HPI and below Patient History Medical History (Updated 05/05/21 @ 14:02 by Xuan Garcia DO) Anxiety Closed fracture of left humerus Endometriosis Fibromyalgia Heart palpitations History of asthma History of chronic hypertension History of COPD History of depression History of gastrointestinal ulcer History of kidney stones History of migraine History of panic attacks History of type 2 diabetes mellitus Hyperlipidemia Interstitial cystitis UTI (urinary tract infection) Surgical History History of urostomy S/P appendectomy Status post hysterectomy Status post left rotator cuff repair Family History Mother Diabetes mellitus Lupus Social History household members: spouse Smoking Status: Current every day smoker alcohol intake: current Smoking Status: Current every day smoker tobacco type: cigarettes alcohol intake frequency: holidays/special occasions only Substance Use Type: former substance user and marijuana Exam Narrative Exam Narrative: GEN: Female appears to the age. Alert and oriented x 3, patient appears to be in mild distress. HEENT: Atraumatic, pupils are equal round reactive to light, extraocular movements are intact, nares are clear. HEART: Regular rate and rhythm without murmur, clicks, rubs. LUNGS:Lungs clear to auscultation, no wheezes, rales, crackles, chest moves symmetrically, no tachypnea accessory muscle use. ABD:bowel sounds normal, soft, generalized tenderness, no guarding, rebound, rigidity, no masses noted, no hepatosplenomegaly, patient has a right urostomy tube which appears intact with no surrounding erythema or signs of infection. It is draining yellow clear urine. : Positive CVA tenderness MSCL: Non-tender, normal range of motion. NEURO:CN 2-12 intact, sensation normal SKIN: no rash, no erythema, no other skin changes. Initial Vital Signs Initial Vital Signs: Vital Signs Temperature 98.2 F 05/05/21 10:55 Pulse Rate 113 H 05/05/21 10:55 Respiratory Rate 14 05/05/21 10:55 Blood Pressure 74/42 L 05/05/21 10:55 Pulse Oximetry 97 05/05/21 10:55 Course Orders Ordered: ED Orders 05/05/21 11:02 XR chest 1V Stat EKG-12 Lead Stat 05/05/21 11:20 Complete Blood Count AUTO DIFF Stat Comprehensive Metabolic Panel Stat Lactate (Lactic Acid) Stat Lipase Stat Magnesium Stat Troponin & CK Cardiac Panel Stat 05/05/21 11:30 COVID19 -Nasal swab/Pre-Proc Stat 05/05/21 11:37 UA Complete [Urinalysis and Microscopic] Stat Urine Culture Stat 05/05/21 11:56 Blood Culture Stat Discontinued Medications Hydromorphone HCl (Hydromorphone 1 Mg Inj) 1 mg IV NOW ONE Stop: 05/05/21 12:36 Last Admin: 05/05/21 12:51 Dose: 1 mg Documented by: ANDRES Sodium Chloride (Normal Saline 0.9%) 1,000 mls @ 1,000 mls/hr IV BOLUS ONE Stop: 05/05/21 12:17 Last Infusion: 05/05/21 13:10 Dose: 0 mls/hr Documented by: Admin: 05/05/21 11:30 Dose: 1,000 mls/hr Documented by: ANDRES Ceftriaxone Sodium 2,000 mg/ (Sodium Chloride) 100 mls @ 200 mls/hr IV NOW ONE Stop: 05/05/21 12:37 Last Infusion: 05/05/21 13:40 Dose: 0 mls/hr Documented by: Admin: 05/05/21 12:49 Dose: 200 mls/hr Documented by: ANDRES Sodium Chloride (Normal Saline 0.9%) 1,000 mls @ 1,000 mls/hr IV BOLUS ONE Stop: 05/05/21 14:04 Last Infusion: 05/05/21 15:06 Dose: 0 mls/hr Documented by: Admin: 05/05/21 13:10 Dose: 1,000 mls/hr Documented by: ANDRES Ondansetron HCl (Ondansetron 4 Mg/2 Ml Inj) 4 mg IV Q6HR PRN PRN Reason: Nausea And Vomiting Last Admin: 05/05/21 12:50 Dose: 4 mg Documented by: ANDRES Reevaluation(s) Reevaluation #1: Recheck, labs are reassuring. Urine shows white cells but no other changes although I suspect this is the source of patient's pain and discomfort. Her blood pressure improved significantly with a 1L of fluids she otherwise does not meet any septic criteria. Patient given an additional L she has not been eating and drinking much as she has mandibular fracture last month and is continuing to heal. After pain medication and antinausea medication and discussion plan for DC home on oral antibiotics consistent with last visit in February while awaiting urine culture. Patient has had intermittent cultures with sensitivity to multiple antibiotics and sometimes resistance to other antibiotics. Patient and family comfortable with plan. They have antiemetics available at home. Time: 13:59 Vital Signs Vital signs: Vital Signs - 8 hr 05/05/21 11:32 05/05/21 12:00 05/05/21 12:30 Pulse Rate 102 H 97 H 94 H Respiratory Rate Blood Pressure 106/65 122/74 123/73 Pulse Oximetry 99 99 100 05/05/21 13:00 05/05/21 13:30 05/05/21 14:00 Pulse Rate 99 H 92 H 86 Respiratory Rate Blood Pressure 119/69 Pulse Oximetry 98 99 99 05/05/21 14:01 05/05/21 14:30 05/05/21 14:47 Pulse Rate 86 85 88 Respiratory Rate 17 Blood Pressure 133/75 138/81 119/79 Pulse Oximetry 100 100 MDM - Weakness Lab Data Result diagrams: 05/05/21 11:20 05/05/21 11:20 Labs: Lab Results 05/05/21 05/05/21 05/05/21 Range/Units 11:20 11:20 11:20 WBC 11.0 (4.5-11.0) X10^3/uL RBC 2.99 L (4.0-5.2) X10^6/uL Hgb 10.7 L (12.0-16.0) g/dL Hct 30.9 L (36-46) % MCV 103.2 H (80-100) fL MCH 35.7 H (26-34) PG MCHC 34.6 (30-36) % RDW 13.0 (11.6-14.8) % Plt Count 338 (150-400) X10^3/uL Neut % (Auto) 81.7 H (50-75) % Lymph % (Auto) 10.9 L (25-40) % [place] % (Auto) 7.1 (3-14) % Eos % (Auto) 0.1 L (2-4) % Baso % (Auto) 0.2 (0-2) % Neut # (Auto) 9000 H (5406-1469) /uL Lymph # (Auto) 1200 (2030-8363) /uL [place] # (Auto) 800 (0-900) /uL Eos # (Auto) 0 (0-450) /uL Baso # (Auto) 0 (0-100) /uL Sodium 135 L (137-145) mmol/L Potassium 4.2 (3.4-5.1) mmol/L Chloride 110 H (98-107) mmol/L Carbon Dioxide 19 L (22-32) mmol/L BUN 14 (7-17) mg/dL Creatinine 0.72 (0.52-1.04) mg/dL Estimated GFR > 60.0 (>60) mL/min BUN/Creatinine Ratio 19.4 (6-22) Glucose 234 H (70-100) mg/dL Lactate 2.1 (0.7-2.1) mmol/L Calcium 8.5 (8.4-10.2) mg/dL Magnesium 1.5 L (1.6-2.3) mg/dL Total Bilirubin 0.2 (0.2-1.3) mg/dL AST 26 (14-36) IU/L ALT 19 (<35) IU/L Alkaline Phosphatase 126 (38-126) U/L Total Creatine Kinase 27 L (30-135) U/L CK-MB (CK-2) TNP CK-MB (CK-2) Rel Index TNP Troponin I < 0.012 (0.01-0.034) ng/mL Total Protein 5.8 L (6.3-8.2) g/dL Albumin 2.7 L (3.5-5.0) g/dL Globulin 3.1 (1.7-4.1) g/dL Albumin/Globulin Ratio 0.9 L (1.0-2.8) Lipase 15 L (23-300) U/L Urine Color Urine Appearance Urine pH (4.5-8.0) Ur Specific [place] (1.000-1.035) Urine Protein (Negative) Urine Glucose (UA) (Negative) g/dL Urine Ketones (NEGATIVE) Urine Occult Blood (Negative) Urine Nitrate (Negative) Urine Bilirubin (NEGATIVE) Urine Urobilinogen (0.2) E.U./dL Ur Leukocyte Esterase (NEGATIVE) Urine RBC (0-5/HPF) Urine WBC (0-5/HPF) Amorphous Sediment Urine Bacteria (None) Ur Culture Indicated? SARS-CoV-2 (PCR) (Negative) 05/05/21 05/05/21 Range/Units 11:30 11:37 WBC (4.5-11.0) X10^3/uL RBC (4.0-5.2) X10^6/uL Hgb (12.0-16.0) g/dL Hct (36-46) % MCV (80-100) fL MCH (26-34) PG MCHC (30-36) % RDW (11.6-14.8) % Plt Count (150-400) X10^3/uL Neut % (Auto) (50-75) % Lymph % (Auto) (25-40) % [place] % (Auto) (3-14) % Eos % (Auto) (2-4) % Baso % (Auto) (0-2) % Neut # (Auto) (6080-6395) /uL Lymph # (Auto) (4191-2047) /uL [place] # (Auto) (0-900) /uL Eos # (Auto) (0-450) /uL Baso # (Auto) (0-100) /uL Sodium (137-145) mmol/L Potassium (3.4-5.1) mmol/L Chloride (98-107) mmol/L Carbon Dioxide (22-32) mmol/L BUN (7-17) mg/dL Creatinine (0.52-1.04) mg/dL Estimated GFR (>60) mL/min BUN/Creatinine Ratio (6-22) Glucose (70-100) mg/dL Lactate (0.7-2.1) mmol/L Calcium (8.4-10.2) mg/dL Magnesium (1.6-2.3) mg/dL Total Bilirubin (0.2-1.3) mg/dL AST (14-36) IU/L ALT (<35) IU/L Alkaline Phosphatase (38-126) U/L Total Creatine Kinase (30-135) U/L CK-MB (CK-2) CK-MB (CK-2) Rel Index Troponin I (0.01-0.034) ng/mL Total Protein (6.3-8.2) g/dL Albumin (3.5-5.0) g/dL Globulin (1.7-4.1) g/dL Albumin/Globulin Ratio (1.0-2.8) Lipase (23-300) U/L Urine Color Yellow Urine Appearance Clear Urine pH 6.5 (4.5-8.0) Ur Specific [place] 1.015 (1.000-1.035) Urine Protein Trace H (Negative) Urine Glucose (UA) Negative (Negative) g/dL Urine Ketones Negative (NEGATIVE) Urine Occult Blood Trace-lysed (Negative) Urine Nitrate Negative (Negative) Urine Bilirubin Negative (NEGATIVE) Urine Urobilinogen 0.2 (0.2) E.U./dL Ur Leukocyte Esterase Negative (NEGATIVE) Urine RBC 0-1/hpf (0-5/HPF) Urine WBC 5-10/hpf H (0-5/HPF) Amorphous Sediment 1+ Urine Bacteria None seen (None) Ur Culture Indicated? Specimen cultured SARS-CoV-2 (PCR) Negative (Negative) Imaging Data Chest x-ray: Radiologist Impression: [address] [address] XRay Report Signed Patient: Melvi Gibbs MR#: [id number] : 1965 Acct:[id number] Age/Sex: 55 / F Date of Service: 05/05/21 Loc: ED Accession Number: [id number] ?? Procedure: XR chest 1V Ordering Provider: Xuan Garcia D.O. PROCEDURE:? XR CHEST 1V ? INDICATIONS:? chest pain ? TECHNIQUE:? One view of the chest was acquired.? ? COMPARISON:? [facility], CR, XR CHEST 1V, 03/07/2021, 8:57. ? FINDINGS:? ? Surgical changes and devices:? Left humeral suture anchors noted.? Right sided Port-A-Cath in place. ? Lungs and pleura:? Lungs are clear.? No pleural effusions or pneumothorax.? ? Mediastinum:? Mediastinal contours appear normal.? Heart size is normal.? ? Bones and chest wall:? No suspicious bony lesions.? Overlying soft tissues appear unremarkable.? Generalized decrease in osseous mineralization noted.? Old fracture deformity noted involving the left proximal humerus ? IMPRESSION:? ? No acute cardiopulmonary findings Osteopenia and right Port-A-Cath in place. ? ? ? Approved by: Sergei Ovalles M.D. on 05/05/2021 at 12:31? ECG Data Attestation: I personally reviewed and interpreted this ECG as follows: Prior ECG tracings: available for review Interpretation: Sinus tachycardia rate of 101 [place] 136 QRS is [address]TC [address] No acute [address] elevation depression. Prior EKG from 03/07/21 appears similar. MDM Narrative Medical decision making narrative: This is a 55-year-old male with known history of recurrent UTIs with nephrostomy tube in place. Patient has been feeling lightheaded, having nausea and vomiting increasing abdominal flank pain consistent with prior infections. She was hypotensive and here in the department initially she responded well to 1 L of fluids but had additional L as well. She has had decreased intake secondary to a recent mandibular fracture so has also likely has some dehydration complicating her symptoms. Labs are reassuring urine shows white cells but no nitrates. Patient's prior urine cultures are mixed with resistance at sometimes and fairly sensitive at others. Patient was started on a combination of 2 antibiotics based on her prior cultures with plan for re-evaluation as her urine culture returns. Patient and I discussed return precautions. They feel comfortable with this plan at the time. All questions answered. Discharge Plan Departure Patient Disposition: Home Clinical Impression: Pyelonephritis Instructions: DI for Kidney Infection Activity Restrictions/Additional Instructions: Your urine culture is pending. If this shows resistance you should expect a phone call to have any return or have antibiotics altered. Take antibiotics until completely gone. Take pain medication as prescribed. This medication can make you sleepy do not drive, perform hazardous activities or make any major decisions while taking it. This medication will make you constipated please take a stool softener once to twice daily until stools are soft and regular. Prescription sent to Please return for fevers, new or worsening pain, persistent vomiting, passing out, new chest pain or shortness of breath, or other new or concerning changes. Prescriptions: New ciprofloxacin HCl 500 mg tablet 500 mg PO BID Qty: 20 0RF sulfamethoxazole-trimethoprim [Bactrim DS] 800-160 mg tablet 1 tab PO Q12H Qty: 20 0RF hydrocodone-acetaminophen 5-325 mg tablet 1 tab PO Q6H PRN (Reason: pain) Qty: 10 0RF No Action hydroxyzine HCl 25 MG tablet 50 mg PO BID Qty: 0 0RF albuterol sulfate [Proventil HFA] 90 MCG/PUFF HFA aerosol inhaler 2 puff INH Q4HP PRN (Reason: Shortness Of Breath) Qty: 0 0RF gabapentin [Neurontin] 300 MG capsule 900 mg PO BID Qty: 0 0RF multivitamin [Multiple Vitamins] 1 EACH tablet 1 tab PO DAILY Qty: 0 0RF zolpidem [Ambien] 10 MG tablet 10 mg PO HS PRN (Reason: Insomnia) Qty: 0 0RF lorazepam 0.5 mg tablet 0.5 mg PO BEDTIME 0RF methocarbamol 500 mg tablet 1,000 mg PO QID 0RF Humulin N NPH Insulin KwikPen 100 unit/mL (3 mL) insulin pen 15 unit SUBCUT BID 0RF quetiapine 100 mg Tablet 300 mg PO BEDTIME 0RF magnesium glycinate 100 mg Tablet 800 mg PO BEDTIME 0RF melatonin 10 mg Tablet 20 mg PO BEDTIME 0RF promethazine 25 mg suppository 25 mg NJ Q4-6H PRN (Reason: nausea and vomiting) Qty: 12 0RF prazosin 1 mg capsule 1 mg PO BEDTIME 0RF Label Comments: TAKE 1 CAPSULE BY MOUTH EVERY NIGHT FOR NIGHTMARES vitamin E 400 unit Tablet 400 unit PO DAILY 0RF docusate sodium 100 mg Capsule 100 mg PO DAILY 0RF cholecalciferol (vitamin D3) [Vitamin D3] 25 mcg (1,000 unit) Tablet 25 mcg PO DAILY 0RF ropinirole [Requip] 0.25 mg tablet 0.5 mg PO BEDTIME 0RF Rx Instructions: administer 1-3 hours before bedtime hydrocodone-acetaminophen 5-325 mg tablet 1 tab PO BID PRN (Reason: pain) Qty: 5 0RF hydrocodone-acetaminophen 5-325 mg tablet 1 tab PO Q4-6H PRN (Reason: pain) Qty: 10 0RF hydrocodone-acetaminophen 5-325 mg tablet 1 tab PO Q6H PRN (Reason: pain) Qty: 10 0RF omeprazole 20 mg capsule,delayed release(DR/EC) 40 mg PO BID 0RF ondansetron 4 mg tablet,disintegrating 1 tab Translingual Q6H PRN (Reason: Nausea) 0RF Probiotic 1 tab PO DAILY 0RF Label Comments: Pt doubles probiotic when on antibiotics. promethazine 25 mg tablet 25 mg PO TID PRN (Reason: nausea and vomiting) Qty: 10 0RF prochlorperazine maleate 10 mg tablet 10 mg PO Q6H PRN (Reason: Nausea) 0RF losartan 50 mg Tablet 50 mg PO DAILY Qty: 30 0RF nystatin 100,000 unit/mL Suspension 500,000 unit PO QID Qty: 60 0RF linezolid 600 mg tablet 600 mg PO Q12H Qty: 14 0RF levofloxacin 500 mg tablet 500 mg PO DAILY Qty: 3 0RF hydromorphone 2 mg tablet 2 mg PO Q6H Qty: 10 0RF cephalexin 500 mg capsule 500 mg PO TID Qty: 21 0RF ciprofloxacin HCl 500 mg tablet 500 mg PO BID Qty: 20 0RF hydrocodone-acetaminophen 5-325 mg tablet 1 tab PO Q4-6H PRN (Reason: pain) Qty: 10 0RF oxycodone 5 mg/5 mL solution 10 mg PO Q4-6H PRN (Reason: pain) Qty: 150 0RF Referrals: Fadi Ko DO [Primary Care Provider] -
--- NOTE | 2021-05-05 12:28 | PC.NURSE ---
Pt reports recent fall and broke upper right mandible. Not a surgical candidate due to location of the break, per spouse.
[2021-05-05 12:35] LABS: Amorphous Sediment Urine 1+; Bacteria Urine None Seen; Culture Indicated Urine Specimen Cultured; RBC Urine 0-1/HPF (0-5/HPF); WBC Urine 5-10/HPF (0-5/HPF)
[2021-05-05] MEDS: cefTRIAXone 2,000 MG in SODIUM CHLORIDE 0.9% 100 ML 200 ML IV (12:49)
[2021-05-05] MEDS: ONDANSETRON 4 MG/2 ML INJ IV (12:50)
[2021-05-05] MEDS: HYDROMORPHONE 1 MG INJ IV (12:51)
[2021-05-05 13:33] LABS: Reflexed Lactate in 2 Hours Y
== END 2021-05-05 15:08 | disposition home or self-care (01) ==
PROVIDERS: Emergency Provider Emergency Medicine; PCP Family Medicine
DX: N10 Acute pyelonephritis (principal); R07.9 Chest pain, unspecified; Z20.822 Contact with and (suspected) exposure to COVID-19
CPT/HCPCS: 36415; 71045; 80053; 81001; 82550; 83605; 83690; 83735; 84484; 85025; 87040; 87077; 87086; 87186; 87635; 93005; 93010; 96361; 96365; 96375; 99284; C9803; J0696; J1170; J2405

== ENCOUNTER 2021-05-07 10:49 | Emergency (ER) | payer OTHER, SELFPAY ==
[2020-09-28 11:54] VITALS: BMI 18.3
[2021-05-07] VITALS (10 sets, daily range): BP systolic 100–151; BP diastolic 63–85; PULSE 83–110; RESP 16–20; TEMP 36.9; O2SAT 95–99
--- NOTE | 2021-05-07 11:24 | ED.FEMALEGU ---
HPI - Female Genitourinary General Chief complaint: Urogenital-Female Stated complaint: Kidney infection, ongoing Time Seen by Provider: 05/07/21 11:01 Source: patient Mode of arrival: Ambulatory History of Present Illness HPI Narrative: This is a 55-year-old female with complex medical history including diabetes, frequent UTIs and pyelonephritis with a nephrostomy tube and a chief complaint of recurrent episodes of flank pain. She had recently been here with an extensive evaluation including urine with a culture that this resulted today. She had been on Bactrim and Cipro and current culture suggests resistance to each. She has had chills but no measured fever. She has had some generalized weakness and nausea but no vomiting. Her pain is worse when she moves and improves with rest. It is very similar to prior episodes of pyelonephritis. Related Data Home Medications Medication Instructions Recorded Confirmed albuterol sulfate 90 mcg/actuation 2 puff INH Q4HP PRN #0 01/08/13 09/28/20 aerosol inhaler (Proventil HFA) hydroxyzine HCl 25 mg tablet 50 mg PO BID #0 01/08/13 09/28/20 gabapentin 300 mg capsule 900 mg PO BID #0 07/04/17 09/28/20 (Neurontin) multivitamin (Multiple Vitamins) 1 tab PO DAILY #0 07/04/17 09/28/20 zolpidem 10 mg tablet (Ambien) 10 mg PO HS PRN #0 07/04/17 09/28/20 Probiotic 1 tab PO DAILY 09/26/17 09/28/20 omeprazole 20 mg capsule,delayed 40 mg PO BID 09/26/17 09/28/20 release ondansetron 4 mg disintegrating 1 tab TRANSLINGUAL Q6H PRN 09/26/17 09/28/20 tablet lorazepam 0.5 mg tablet 0.5 mg PO BEDTIME 05/30/18 09/28/20 insulin NPH isoph U-100 human 100 15 unit SUBCUT BID 05/17/19 09/28/20 unit/mL (3 mL) subcutaneous pen (Humulin N NPH U-100 Insulin KwikPen) methocarbamol 500 mg tablet 1,000 mg PO QID 05/17/19 09/28/20 quetiapine 100 mg tablet 300 mg PO BEDTIME 11/04/19 09/28/20 magnesium glycinate 100 mg tablet 800 mg PO BEDTIME 12/08/19 09/28/20 melatonin 10 mg tablet 20 mg PO BEDTIME 12/08/19 09/28/20 cholecalciferol (vitamin D3) 25 25 mcg PO DAILY 08/31/20 09/28/20 mcg (1,000 unit) tablet (Vitamin D3) docusate sodium 100 mg capsule 100 mg PO DAILY 08/31/20 09/28/20 prazosin 1 mg capsule 1 mg PO BEDTIME 08/31/20 09/28/20 ropinirole 0.25 mg tablet (Requip) 0.5 mg PO BEDTIME 08/31/20 09/28/20 vitamin E 400 unit tablet 400 unit PO DAILY 08/31/20 09/28/20 prochlorperazine maleate 10 mg 10 mg PO Q6H PRN 09/28/20 09/28/20 tablet Previous Rx's Medication Instructions Recorded promethazine 25 mg tablet 25 mg PO TID PRN #10 tab 04/16/20 promethazine 25 mg rectal 25 mg MN Q4-6H PRN #12 ea 04/19/20 suppository hydromorphone 2 mg tablet 2 mg PO Q6H #10 tab 09/30/20 levofloxacin 500 mg tablet 500 mg PO DAILY #3 tab 09/30/20 linezolid 600 mg tablet 600 mg PO Q12H #14 tab 09/30/20 losartan 50 mg tablet 50 mg PO DAILY #30 tab 09/30/20 nystatin 100,000 unit/mL oral 500,000 unit (5 mL) PO QID #60 ml 09/30/20 suspension hydrocodone 5 mg-acetaminophen 325 1 tab PO BID PRN #5 tab 11/04/20 mg tablet hydrocodone 5 mg-acetaminophen 325 1 tab PO Q4-6H PRN #10 tab 12/24/20 mg tablet hydrocodone 5 mg-acetaminophen 325 1 tab PO Q6H PRN #10 tab 02/07/21 mg tablet cephalexin 500 mg capsule 500 mg PO TID #21 cap 03/12/21 ciprofloxacin HCl 500 mg tablet 500 mg PO BID #20 tab 03/19/21 hydrocodone 5 mg-acetaminophen 325 1 tab PO Q4-6H PRN #10 tab 03/19/21 mg tablet oxycodone 5 mg/5 mL oral solution 10 mg (10 mL) PO Q4-6H PRN #150 ml 04/12/21 ciprofloxacin HCl 500 mg tablet 500 mg PO BID #20 tab 05/05/21 hydrocodone 5 mg-acetaminophen 325 1 tab PO Q6H PRN #10 tab 05/05/21 mg tablet sulfamethoxazole 800 1 tab PO Q12H #20 tab 05/05/21 mg-trimethoprim 160 mg tablet (Bactrim DS) cefpodoxime 200 mg tablet 200 mg PO BID 10 Days #20 tab 05/07/21 hydrocodone 5 mg-acetaminophen 325 1 tab PO Q4-6H PRN #10 tab 05/07/21 mg tablet ondansetron 4 mg disintegrating 4 mg PO TID-QID PRN #10 tab 05/07/21 tablet Allergies Allergy/AdvReac Type Severity Reaction Status Date / Time mupirocin Allergy Unknown Verified 05/07/21 10:55 naproxen Allergy Unknown Verified 05/07/21 10:55 Penicillins Allergy Unknown SINCE Verified 05/07/21 10:55 CHILDHOOD droperidol AdvReac Unknown Verified 05/07/21 10:55 fenofibrate [FENOFIBRATE] AdvReac Unknown Verified 05/07/21 10:55 ibuprofen AdvReac Unknown NAUSEA Verified 05/07/21 10:55 metformin [METFORMIN] AdvReac Unknown Verified 05/07/21 10:55 metoclopramide AdvReac Unknown BECAME Verified 05/07/21 10:55 JITTERY AND ANXIOUS nitrofurantoin AdvReac Unknown NAUSEA Verified 05/07/21 10:55 Review of Systems Review of Systems Narrative: GENERAL: Denies chills, fatigue, malaise, fever, sweats. HEENT: Denies sinus pain, ear pain, sore throat, difficulty swallowing, dizziness. RESPIRATORY: Denies dyspnea, cough, wheezing, hemoptysis, sputum. CARDIOVASCULAR: Denies chest pain, palpitations, orthopnea, edema, GASTROINTESTINAL: Denies nausea, vomiting, abdominal pain, diarrhea, constipation, melena. : See HPI MUSCULOSKELETAL: denies weakness, joint pain, or bony pain SKIN: Denies rash, skin lesions, or other NEUROLOGIC: Denies weakness, headache, numbness, change in speech, confusion, seizures, incoordination. PSYCHIATRIC: No concerning psychosocial issues. 12 point review of systems is negative except for those stated above Patient History Medical History Anxiety Closed fracture of left humerus Endometriosis Fibromyalgia Heart palpitations History of asthma History of chronic hypertension History of COPD History of depression History of gastrointestinal ulcer History of kidney stones History of migraine History of panic attacks History of type 2 diabetes mellitus Hyperlipidemia Interstitial cystitis UTI (urinary tract infection) Surgical History History of urostomy S/P appendectomy Status post hysterectomy Status post left rotator cuff repair Family History Mother Diabetes mellitus Lupus tobacco type: cigarettes alcohol intake frequency: holidays/special occasions only Substance Use Type: former substance user and marijuana Exam Narrative Exam Narrative: GENERAL: [55 year old patient appears older than stated age. Chronically ill, obviously in pain, holding emesis bag HEAD: Atraumatic. Normocephalic. EYES: Pupils equal round and reactive. Extraocular motions intact. No scleral icterus. No injection or drainage. ENT: Nose without bleeding, purulent drainage. Throat without erythema, tonsillar hypertrophy or exudate. Airway patent. NECK: Trachea midline. Non tender CARDIOVASCULAR: Regular rate and rhythm without murmurs, gallops, or rubs. RESPIRATORY: Clear to auscultation. Breath sounds equal bilaterally. No wheezes, rales, or rhonchi. GASTROINTESTINAL: Abdomen soft, minimally tender, nondistended. No rebound EXTREMITIES: No edema or joint tenderness. BACK: Nontender without deformity or crepitance. No flank tenderness. NEURO: AOx3. SKIN: No rash or erythema of visible areas Initial Vital Signs Initial Vital Signs: Vital Signs Temperature 98.5 F 05/07/21 10:55 Pulse Rate 110 H 05/07/21 10:55 Respiratory Rate 20 05/07/21 10:55 Blood Pressure 151/85 H 05/07/21 10:55 Pulse Oximetry 99 05/07/21 10:55 Course Orders Ordered: ED Orders 05/07/21 11:30 Complete Blood Count AUTO DIFF Stat Comprehensive Metabolic Panel Stat Lactate (Lactic Acid) Stat Magnesium Stat 05/07/21 11:45 Blood Culture Stat Discontinued Medications Hydromorphone HCl (Hydromorphone 1 Mg Inj) 1 mg IV NOW ONE Stop: 05/07/21 12:43 Last Admin: 05/07/21 12:52 Dose: 1 mg Documented by: ATAYLOR Hydromorphone HCl (Hydromorphone 0.5 Mg Inj) 0.5 mg IV NOW ONE Stop: 05/07/21 15:02 Last Admin: 05/07/21 15:07 Dose: 0.5 mg Documented by: ATAYLOR Sodium Chloride (Normal Saline 0.9%) 1,000 mls @ 1,000 mls/hr IV BOLUS ONE Stop: 05/07/21 12:35 Last Infusion: 05/07/21 13:15 Dose: 0 mls/hr Documented by: Admin: 05/07/21 12:09 Dose: 1,000 mls/hr Documented by: ATAYLOR Ceftriaxone Sodium 1,000 mg/ (Sodium Chloride) 100 mls @ 200 mls/hr IV NOW ONE Stop: 05/07/21 13:41 Last Infusion: 05/07/21 14:39 Dose: 0 mls/hr Documented by: Admin: 05/07/21 13:55 Dose: 200 mls/hr Documented by: ATAYLOR Sodium Chloride (Normal Saline 0.9%) 1,000 mls @ 1,000 mls/hr IV BOLUS ONE Stop: 05/07/21 14:39 Last Infusion: 05/07/21 15:28 Dose: 0 mls/hr Documented by: Admin: 05/07/21 13:56 Dose: 1,000 mls/hr Documented by: ATAYLOR Ondansetron HCl (Ondansetron 4 Mg/2 Ml Inj) 4 mg IV NOW ONE Stop: 05/07/21 11:37 Last Admin: 05/07/21 12:08 Dose: 4 mg Documented by: ATAYLOR Reevaluation(s) Reevaluation #1: Patient feels significant improvement after the above-stated therapies. Pain is well controlled, she is tolerating orals Vital Signs Vital signs: Vital Signs - 8 hr 05/07/21 10:55 05/07/21 11:59 05/07/21 12:00 Temperature 98.5 F Pulse Rate 110 H 98 H 98 H Respiratory Rate 20 Blood Pressure 151/85 H 132/73 Pulse Oximetry 99 99 99 05/07/21 12:30 05/07/21 13:00 05/07/21 13:30 Temperature Pulse Rate 92 H 94 H 85 Respiratory Rate Blood Pressure 131/68 137/77 100/63 Pulse Oximetry 98 97 96 05/07/21 14:00 05/07/21 14:30 Temperature Pulse Rate 87 83 Respiratory Rate Blood Pressure 133/77 122/73 Pulse Oximetry 97 98 MDM - Female Genitourinary Lab Data Result diagrams: 05/07/21 11:30 05/07/21 11:30 Labs: Lab Results 05/07/21 05/07/21 05/07/21 Range/Units 11:30 11:30 11:30 WBC 9.7 (4.5-11.0) X10^3/uL RBC 2.93 L (4.0-5.2) X10^6/uL Hgb 10.3 L (12.0-16.0) g/dL Hct 30.5 L (36-46) % MCV 104.3 H (80-100) fL MCH 35.2 H (26-34) PG MCHC 33.8 (30-36) % RDW 13.3 (11.6-14.8) % Plt Count 319 (150-400) X10^3/uL Neut % (Auto) 72.1 (50-75) % Lymph % (Auto) 20.8 L (25-40) % [place] % (Auto) 6.1 (3-14) % Eos % (Auto) 0.5 L (2-4) % Baso % (Auto) 0.5 (0-2) % Neut # (Auto) 7000 (2515-8369) /uL Lymph # (Auto) 2000 (5909-8060) /uL [place] # (Auto) 600 (0-900) /uL Eos # (Auto) 0 (0-450) /uL Baso # (Auto) 0 (0-100) /uL Sodium 138 (137-145) mmol/L Potassium 4.1 (3.4-5.1) mmol/L Chloride 112 H (98-107) mmol/L Carbon Dioxide 20 L (22-32) mmol/L BUN 8 (7-17) mg/dL Creatinine 0.54 (0.52-1.04) mg/dL Estimated GFR > 60.0 (>60) mL/min BUN/Creatinine Ratio 14.8 (6-22) Glucose 134 H D (70-100) mg/dL Lactate 2.7 H (0.7-2.1) mmol/L Calcium 8.2 L (8.4-10.2) mg/dL Magnesium (1.6-2.3) mg/dL Total Bilirubin 0.3 (0.2-1.3) mg/dL AST 36 (14-36) IU/L ALT 21 (<35) IU/L Alkaline Phosphatase 144 H (38-126) U/L Total Protein 5.7 L (6.3-8.2) g/dL Albumin 2.6 L (3.5-5.0) g/dL Globulin 3.1 (1.7-4.1) g/dL Albumin/Globulin Ratio 0.8 L (1.0-2.8) 05/07/21 05/07/21 Range/Units 11:30 13:49 WBC (4.5-11.0) X10^3/uL RBC (4.0-5.2) X10^6/uL Hgb (12.0-16.0) g/dL Hct (36-46) % MCV (80-100) fL MCH (26-34) PG MCHC (30-36) % RDW (11.6-14.8) % Plt Count (150-400) X10^3/uL Neut % (Auto) (50-75) % Lymph % (Auto) (25-40) % [place] % (Auto) (3-14) % Eos % (Auto) (2-4) % Baso % (Auto) (0-2) % Neut # (Auto) (3439-6762) /uL Lymph # (Auto) (2212-6173) /uL [place] # (Auto) (0-900) /uL Eos # (Auto) (0-450) /uL Baso # (Auto) (0-100) /uL Sodium (137-145) mmol/L Potassium (3.4-5.1) mmol/L Chloride (98-107) mmol/L Carbon Dioxide (22-32) mmol/L BUN (7-17) mg/dL Creatinine (0.52-1.04) mg/dL Estimated GFR (>60) mL/min BUN/Creatinine Ratio (6-22) Glucose (70-100) mg/dL Lactate 1.4 (0.7-2.1) mmol/L Calcium (8.4-10.2) mg/dL Magnesium 1.7 (1.6-2.3) mg/dL Total Bilirubin (0.2-1.3) mg/dL AST (14-36) IU/L ALT (<35) IU/L Alkaline Phosphatase (38-126) U/L Total Protein (6.3-8.2) g/dL Albumin (3.5-5.0) g/dL Globulin (1.7-4.1) g/dL Albumin/Globulin Ratio (1.0-2.8) MDM Narrative Medical decision making narrative: 55-year-old female complex medical history well known to myself and staff presents under similar circumstances as her typical visit. Recent urine culture would suggest that her current antibiotic regimen is likely not going to be successful given pain resistance to her current regimen. Lactate improves, blood work is otherwise reassuring, vital signs are stable. She shows no signs of sepsis. Her pain is well controlled, she is tolerating orals. Antibiotics have been changed. Though she does report a history of allergies to penicillin she has no issues tolerating the cephalosporins. Rocephin given here in the department and a prescription sent to her pharmacy of choice. Patient and understand and agree with the plan. They have been given extensive return precautions and a pad questions answered to their apparent satisfaction Discharge Plan Departure Patient Disposition: Home Clinical Impression: Pyelonephritis Instructions: DI for Kidney Infection Activity Restrictions/Additional Instructions: *You have been diagnosed with [pyelonephritis ]. Thankfully your history and physical exam are very reassuring. You're recent urine culture would suggest that the Cipro and Bactrim won't work so we have changed your antibiotics and sent them to your pharmacy *What to do: *Please continue to take your regular medications as directed. [ x] New medication prescriptions sent to your pharmacy: [ [facility]] [ ] New medication written as a paper prescription [ ] No new medications given *Please follow up with your primary care provider in 2-3 days, call for an appointment. Let them know you were seen in the Emergency Department and that we ask that you be seen in follow up. We will electronically transmit a record of today's note if your PCP is in our system *If you do not have a primary care provider please contact the [facility] Resource line at [phone]. They will ask some questions about your medical history and help get you set up with a doctor in the community. *Return to Emergency Department if you should have any new, worsening or concerning symptoms, such as [fever greater than 101 F, shaking chills, worsening pain, persistent vomiting or other bothersome symptoms] Prescriptions: New cefpodoxime 200 mg tablet 200 mg PO BID 10 Days Qty: 20 0RF Rx Instructions: must administer with a meal/food hydrocodone-acetaminophen 5-325 mg tablet 1 tab PO Q4-6H PRN (Reason: pain) Qty: 10 0RF ondansetron 4 mg tablet,disintegrating 4 mg PO TID-QID PRN (Reason: nausea and vomiting) Qty: 10 0RF No Action hydroxyzine HCl 25 MG tablet 50 mg PO BID Qty: 0 0RF albuterol sulfate [Proventil HFA] 90 MCG/PUFF HFA aerosol inhaler 2 puff INH Q4HP PRN (Reason: Shortness Of Breath) Qty: 0 0RF gabapentin [Neurontin] 300 MG capsule 900 mg PO BID Qty: 0 0RF multivitamin [Multiple Vitamins] 1 EACH tablet 1 tab PO DAILY Qty: 0 0RF zolpidem [Ambien] 10 MG tablet 10 mg PO HS PRN (Reason: Insomnia) Qty: 0 0RF lorazepam 0.5 mg tablet 0.5 mg PO BEDTIME 0RF methocarbamol 500 mg tablet 1,000 mg PO QID 0RF Humulin N NPH Insulin KwikPen 100 unit/mL (3 mL) insulin pen 15 unit SUBCUT BID 0RF quetiapine 100 mg Tablet 300 mg PO BEDTIME 0RF magnesium glycinate 100 mg Tablet 800 mg PO BEDTIME 0RF melatonin 10 mg Tablet 20 mg PO BEDTIME 0RF promethazine 25 mg suppository 25 mg MN Q4-6H PRN (Reason: nausea and vomiting) Qty: 12 0RF prazosin 1 mg capsule 1 mg PO BEDTIME 0RF Label Comments: TAKE 1 CAPSULE BY MOUTH EVERY NIGHT FOR NIGHTMARES vitamin E 400 unit Tablet 400 unit PO DAILY 0RF docusate sodium 100 mg Capsule 100 mg PO DAILY 0RF cholecalciferol (vitamin D3) [Vitamin D3] 25 mcg (1,000 unit) Tablet 25 mcg PO DAILY 0RF ropinirole [Requip] 0.25 mg tablet 0.5 mg PO BEDTIME 0RF Rx Instructions: administer 1-3 hours before bedtime hydrocodone-acetaminophen 5-325 mg tablet 1 tab PO BID PRN (Reason: pain) Qty: 5 0RF hydrocodone-acetaminophen 5-325 mg tablet 1 tab PO Q4-6H PRN (Reason: pain) Qty: 10 0RF hydrocodone-acetaminophen 5-325 mg tablet 1 tab PO Q6H PRN (Reason: pain) Qty: 10 0RF ciprofloxacin HCl 500 mg tablet 500 mg PO BID Qty: 20 0RF sulfamethoxazole-trimethoprim [Bactrim DS] 800-160 mg tablet 1 tab PO Q12H Qty: 20 0RF hydrocodone-acetaminophen 5-325 mg tablet 1 tab PO Q6H PRN (Reason: pain) Qty: 10 0RF omeprazole 20 mg capsule,delayed release(DR/EC) 40 mg PO BID 0RF ondansetron 4 mg tablet,disintegrating 1 tab Translingual Q6H PRN (Reason: Nausea) 0RF Probiotic 1 tab PO DAILY 0RF Label Comments: Pt doubles probiotic when on antibiotics. promethazine 25 mg tablet 25 mg PO TID PRN (Reason: nausea and vomiting) Qty: 10 0RF prochlorperazine maleate 10 mg tablet 10 mg PO Q6H PRN (Reason: Nausea) 0RF losartan 50 mg Tablet 50 mg PO DAILY Qty: 30 0RF nystatin 100,000 unit/mL Suspension 500,000 unit PO QID Qty: 60 0RF linezolid 600 mg tablet 600 mg PO Q12H Qty: 14 0RF levofloxacin 500 mg tablet 500 mg PO DAILY Qty: 3 0RF hydromorphone 2 mg tablet 2 mg PO Q6H Qty: 10 0RF cephalexin 500 mg capsule 500 mg PO TID Qty: 21 0RF ciprofloxacin HCl 500 mg tablet 500 mg PO BID Qty: 20 0RF hydrocodone-acetaminophen 5-325 mg tablet 1 tab PO Q4-6H PRN (Reason: pain) Qty: 10 0RF oxycodone 5 mg/5 mL solution 10 mg PO Q4-6H PRN (Reason: pain) Qty: 150 0RF Referrals: Fadi Ko DO [Primary Care Provider] -
[2021-05-07 11:41] LABS: Add Manual Diff / Slide Review NO; Basophils Absolute Auto 0 /uL (0-100); Basophils Percent Auto 0.5 % (0-2); Eosinophils Absolute Auto 0 /uL (0-450); Eosinophils Percent Auto 0.5 % (2-4); Hematocrit 30.5 % (36-46); Hemoglobin 10.3 g/dL (12.0-16.0); Lymphocytes Absolute Auto 2000 /uL (1100-4500); Lymphocytes Percent Auto 20.8 % (25-40); Mean Corpuscular HGB Conc 33.8 % (30-36); Mean Corpuscular Hemoglobin 35.2 PG (26-34); Mean Corpuscular Volume 104.3 fL (80-100); Monocytes Absolute Auto 600 /uL (0-900); Monocytes Percent Auto 6.1 % (3-14); Neutrophils Absolute Auto 7000 /uL (1500-7000); Neutrophils Percent Auto 72.1 % (50-75); Platelet Count 319 X10^3/uL (150-400); Red Blood Cell Count 2.93 X10^6/uL (4.0-5.2); Red Cell Distribution Width 13.3 % (11.6-14.8); White Blood Cell Count 9.7 X10^3/uL (4.5-11.0)
[2021-05-07 11:54] LABS: Lactate (Lactic Acid) 2.7 mmol/L (0.7-2.1)
[2021-05-07 11:55] LABS: Alanine Aminotransferase 21 IU/L (<35); Albumin 2.6 g/dL (3.5-5.0); Albumin Globulin Ratio 0.8 (1.0-2.8); Alkaline Phosphatase 144 U/L (38-126); Aspartate Aminotransferase 36 IU/L (14-36); BUN Creatinine Ratio 14.8 (6-22); Bilirubin Total 0.3 mg/dL (0.2-1.3); Blood Urea Nitrogen 8 mg/dL (7-17); Calcium 8.2 mg/dL (8.4-10.2); Carbon Dioxide 20 mmol/L (22-32); Chloride 112 mmol/L (98-107); Estimated Glomerular Filt Rate > 60.0 mL/min (>60); Globulin 3.1 g/dL (1.7-4.1); Glucose 134 mg/dL (70-100); HEMOLYSIS < 15 (0-50); Magnesium 1.7 mg/dL (1.6-2.3); Potassium 4.1 mmol/L (3.4-5.1); Sodium 138 mmol/L (137-145); Total Protein 5.7 g/dL (6.3-8.2)
[2021-05-07] MEDS: ONDANSETRON 4 MG/2 ML INJ IV (12:08)
[2021-05-07] MEDS: SODIUM CHLORIDE 0.9% 1,000 ML 1000 ML IV ×2 (12:09→13:56)
[2021-05-07] MEDS: HYDROMORPHONE 1 MG INJ IV (12:52)
[2021-05-07 13:38] LABS: Reflexed Lactate in 2 Hours Y
[2021-05-07] MEDS: cefTRIAXone 1,000 MG in SODIUM CHLORIDE 0.9% 100 ML 200 ML IV (13:55)
[2021-05-07 14:07] LABS: Lactate 2HR (Lactic Acid Rflx) 1.4 mmol/L (0.7-2.1)
[2021-05-07] MEDS: HYDROMORPHONE 0.5 MG INJ IV (15:07)
== END 2021-05-07 15:35 | disposition home or self-care (01) ==
PROVIDERS: Emergency Provider Emergency Medicine; PCP Family Medicine
DX: N12 Tubulo-interstitial nephritis, not specified as acute or chronic (principal); Z88.0 Allergy status to penicillin
CPT/HCPCS: 36415; 80053; 83605; 83735; 85025; 87040; 96361; 96365; 96375; 96376; 99284; J0696; J1170; J2405

== ENCOUNTER 2021-05-12 08:21 | Emergency (ER) | payer OTHER, SELFPAY ==
[2020-09-28 11:54] VITALS: BMI 18.3
[2021-05-12] VITALS (12 sets, daily range): BP systolic 116–136; BP diastolic 69–85; PULSE 84–107; RESP 22; TEMP 36.6; O2SAT 94–100
--- NOTE | 2021-05-12 08:49 | ED.FEMALEGU ---
HPI - Female Genitourinary General Chief complaint: Urogenital-Female Stated complaint: Kidney infection Time Seen by Provider: 05/12/21 08:25 History of Present Illness HPI Narrative: This is a 55-year-old female with complex medical history including diabetes, frequent UTIs and pyelonephritis with a nephrostomy tube and a chief complaint of recurrent episodes of flank pain.? She has had multiple recent visits, initially she had a UTI with pyelonephritis and had been on antibiotics, she was found to have resistance to her antibiotics and was called back in and was switched to cephalosporins few days ago. She returns with persistent nausea and flank pain. She had a fever last night as high as 101 and some chills. She denies any chest pain or shortness of breath. She is a bit fatigued and lightheaded. Related Data Home Medications Medication Instructions Recorded Confirmed albuterol sulfate 90 mcg/actuation 2 puff INH Q4HP PRN #0 01/08/13 09/28/20 aerosol inhaler (Proventil HFA) hydroxyzine HCl 25 mg tablet 50 mg PO BID #0 01/08/13 09/28/20 gabapentin 300 mg capsule 900 mg PO BID #0 07/04/17 09/28/20 (Neurontin) multivitamin (Multiple Vitamins) 1 tab PO DAILY #0 07/04/17 09/28/20 zolpidem 10 mg tablet (Ambien) 10 mg PO HS PRN #0 07/04/17 09/28/20 Probiotic 1 tab PO DAILY 09/26/17 09/28/20 omeprazole 20 mg capsule,delayed 40 mg PO BID 09/26/17 09/28/20 release ondansetron 4 mg disintegrating 1 tab TRANSLINGUAL Q6H PRN 09/26/17 09/28/20 tablet lorazepam 0.5 mg tablet 0.5 mg PO BEDTIME 05/30/18 09/28/20 insulin NPH isoph U-100 human 100 15 unit SUBCUT BID 05/17/19 09/28/20 unit/mL (3 mL) subcutaneous pen (Humulin N NPH U-100 Insulin KwikPen) methocarbamol 500 mg tablet 1,000 mg PO QID 05/17/19 09/28/20 quetiapine 100 mg tablet 300 mg PO BEDTIME 11/04/19 09/28/20 magnesium glycinate 100 mg tablet 800 mg PO BEDTIME 12/08/19 09/28/20 melatonin 10 mg tablet 20 mg PO BEDTIME 12/08/19 09/28/20 cholecalciferol (vitamin D3) 25 25 mcg PO DAILY 08/31/20 09/28/20 mcg (1,000 unit) tablet (Vitamin D3) docusate sodium 100 mg capsule 100 mg PO DAILY 08/31/20 09/28/20 prazosin 1 mg capsule 1 mg PO BEDTIME 08/31/20 09/28/20 ropinirole 0.25 mg tablet (Requip) 0.5 mg PO BEDTIME 08/31/20 09/28/20 vitamin E 400 unit tablet 400 unit PO DAILY 08/31/20 09/28/20 prochlorperazine maleate 10 mg 10 mg PO Q6H PRN 09/28/20 09/28/20 tablet Previous Rx's Medication Instructions Recorded promethazine 25 mg tablet 25 mg PO TID PRN #10 tab 04/16/20 promethazine 25 mg rectal 25 mg RI Q4-6H PRN #12 ea 04/19/20 suppository hydromorphone 2 mg tablet 2 mg PO Q6H #10 tab 09/30/20 levofloxacin 500 mg tablet 500 mg PO DAILY #3 tab 09/30/20 linezolid 600 mg tablet 600 mg PO Q12H #14 tab 09/30/20 losartan 50 mg tablet 50 mg PO DAILY #30 tab 09/30/20 nystatin 100,000 unit/mL oral 500,000 unit (5 mL) PO QID #60 ml 09/30/20 suspension hydrocodone 5 mg-acetaminophen 325 1 tab PO BID PRN #5 tab 11/04/20 mg tablet hydrocodone 5 mg-acetaminophen 325 1 tab PO Q4-6H PRN #10 tab 12/24/20 mg tablet hydrocodone 5 mg-acetaminophen 325 1 tab PO Q6H PRN #10 tab 02/07/21 mg tablet cephalexin 500 mg capsule 500 mg PO TID #21 cap 03/12/21 ciprofloxacin HCl 500 mg tablet 500 mg PO BID #20 tab 03/19/21 hydrocodone 5 mg-acetaminophen 325 1 tab PO Q4-6H PRN #10 tab 03/19/21 mg tablet oxycodone 5 mg/5 mL oral solution 10 mg (10 mL) PO Q4-6H PRN #150 ml 04/12/21 ciprofloxacin HCl 500 mg tablet 500 mg PO BID #20 tab 05/05/21 hydrocodone 5 mg-acetaminophen 325 1 tab PO Q6H PRN #10 tab 05/05/21 mg tablet sulfamethoxazole 800 1 tab PO Q12H #20 tab 05/05/21 mg-trimethoprim 160 mg tablet (Bactrim DS) cefpodoxime 200 mg tablet 200 mg PO BID 10 Days #20 tab 05/07/21 hydrocodone 5 mg-acetaminophen 325 1 tab PO Q4-6H PRN #10 tab 05/07/21 mg tablet ondansetron 4 mg disintegrating 4 mg PO TID-QID PRN #10 tab 05/07/21 tablet hydrocodone 5 mg-acetaminophen 325 1 tab PO Q4-6H PRN #10 tab 05/12/21 mg tablet ondansetron 4 mg disintegrating 4 mg PO TID-QID PRN #10 tab 05/12/21 tablet Allergies Allergy/AdvReac Type Severity Reaction Status Date / Time mupirocin Allergy Unknown Verified 05/07/21 10:55 naproxen Allergy Unknown Verified 05/07/21 10:55 Penicillins Allergy Unknown SINCE Verified 05/07/21 10:55 CHILDHOOD droperidol AdvReac Unknown Verified 05/07/21 10:55 fenofibrate [FENOFIBRATE] AdvReac Unknown Verified 05/07/21 10:55 ibuprofen AdvReac Unknown NAUSEA Verified 05/07/21 10:55 metformin [METFORMIN] AdvReac Unknown Verified 05/07/21 10:55 metoclopramide AdvReac Unknown BECAME Verified 05/07/21 10:55 JITTERY AND ANXIOUS nitrofurantoin AdvReac Unknown NAUSEA Verified 05/07/21 10:55 Review of Systems Review of Systems Narrative: GENERAL: See HPI HEENT: Denies sinus pain, ear pain, sore throat, difficulty swallowing, dizziness. RESPIRATORY: Denies dyspnea, cough, wheezing, hemoptysis, sputum. CARDIOVASCULAR: Denies chest pain, palpitations, orthopnea, edema, GASTROINTESTINAL: Denies nausea, vomiting, abdominal pain, diarrhea, constipation, melena. : See HPI MUSCULOSKELETAL: denies weakness, joint pain, or bony pain SKIN: Denies rash, skin lesions, or other NEUROLOGIC: Denies weakness, headache, numbness, change in speech, confusion, seizures, incoordination. PSYCHIATRIC: No concerning psychosocial issues. 12 point review of systems is negative except for those stated above Patient History Medical History (Updated 05/12/21 @ 13:03 by Lyle Roman DO) Anxiety Closed fracture of left humerus Endometriosis Fibromyalgia Heart palpitations History of asthma History of chronic hypertension History of COPD History of depression History of gastrointestinal ulcer History of kidney stones History of migraine History of panic attacks History of type 2 diabetes mellitus Hyperlipidemia Interstitial cystitis UTI (urinary tract infection) Surgical History History of urostomy S/P appendectomy Status post hysterectomy Status post left rotator cuff repair Family History Mother Diabetes mellitus Lupus tobacco type: cigarettes alcohol intake frequency: holidays/special occasions only Substance Use Type: former substance user and marijuana Exam Narrative Exam Narrative: GENERAL: [55 year old patient appears older than stated age. Evidence of chronic illness, clearly uncomfortable, tearful HEAD: Atraumatic. Normocephalic. EYES: Pupils equal round and reactive. Extraocular motions intact. No scleral icterus. No injection or drainage. ENT: Nose without bleeding, purulent drainage. Throat without erythema, tonsillar hypertrophy or exudate. Airway patent. NECK: Trachea midline. Non tender CARDIOVASCULAR: Regular rate and rhythm without murmurs, gallops, or rubs. RESPIRATORY: Clear to auscultation. Breath sounds equal bilaterally. No wheezes, rales, or rhonchi. GASTROINTESTINAL: Abdomen soft, minimal suprapubic tenderness, nondistended. EXTREMITIES: No edema or joint tenderness. BACK: Nontender without deformity or crepitance. No flank tenderness. NEURO: AOx3. SKIN: No rash or erythema of visible areas Initial Vital Signs Initial Vital Signs: Vital Signs Pulse Rate 107 H 05/12/21 08:39 Respiratory Rate 05/12/21 08:39 Blood Pressure 116/71 05/12/21 08:39 Pulse Oximetry 97 05/12/21 08:39 Course Orders Ordered: Discontinued Medications Heparin Sodium (Porcine) (Heparin 500 Unit/5 Ml Port Flush) 500 unit IV PRN PRN PRN Reason: Flush Last Admin: 05/12/21 13:36 Dose: 500 unit Documented by: COOPER Hydromorphone HCl (Hydromorphone 0.5 Mg Inj) 0.5 mg IV NOW ONE Stop: 05/12/21 08:32 Last Admin: 05/12/21 09:14 Dose: 0.5 mg Documented by: RONALD Hydromorphone HCl (Hydromorphone 0.5 Mg Inj) 0.5 mg IV NOW ONE Stop: 05/12/21 10:35 Last Admin: 05/12/21 10:37 Dose: 0.5 mg Documented by: RONALD Sodium Chloride (Normal Saline 0.9%) 1,000 mls @ 1,000 mls/hr IV BOLUS PRN PRN Reason: Fluid replacement Last Infusion: 05/12/21 10:29 Dose: 0 mls/hr Documented by: Admin: 05/12/21 09:14 Dose: 1,000 mls/hr Documented by: RONALD Sodium Chloride (Normal Saline 0.9%) 1,000 mls @ 1,000 mls/hr IV BOLUS ONE Stop: 05/12/21 10:41 Last Infusion: 05/12/21 13:00 Dose: 0 mls/hr Documented by: Admin: 05/12/21 10:30 Dose: 1,000 mls/hr Documented by: RONALD Vital Signs Vital signs: Vital Signs - 8 hr 05/12/21 09:19 Temperature 97.8 F Pulse Rate 89 Respiratory Rate 22 Blood Pressure 118/71 Pulse Oximetry 98 MDM - Female Genitourinary Lab Data Result diagrams: 05/12/21 09:12 05/12/21 09:12 Labs: Lab Results 05/12/21 05/12/21 05/12/21 Range/Units 09:12 09:12 09:12 WBC 11.4 H (4.5-11.0) X10^3/uL RBC 2.92 L (4.0-5.2) X10^6/uL Hgb 10.2 L (12.0-16.0) g/dL Hct 29.8 L (36-46) % MCV 102.1 H (80-100) fL MCH 35.0 H (26-34) PG MCHC 34.3 (30-36) % RDW 13.0 (11.6-14.8) % Plt Count 383 (150-400) X10^3/uL Neut % (Auto) Not Reportable Lymph % (Auto) Not Reportable [place] % (Auto) Not Reportable Eos % (Auto) Not Reportable Baso % (Auto) Not Reportable Lymph # (Auto) Not Reportable [place] # (Auto) Not Reportable Baso # (Auto) Not Reportable Total Counted 100 Seg Neutrophils % 74.0 H (38-70) % Band Neutrophils % 1.0 L (3-7) % Lymphocytes % (Manual) 14.0 L (25-45) % Monocytes % (Manual) 10.0 (2-11) % Basophils % (Manual) 1.0 (0-1) % Neutrophils # (Manual) 8550 H (1839-6445) /uL RBC Morphology See below Anisocytosis 1+ H Macrocytosis 1+ H Sodium 137 (137-145) mmol/L Potassium 4.0 (3.4-5.1) mmol/L Chloride 106 (98-107) mmol/L Carbon Dioxide 27 (22-32) mmol/L BUN 11 (7-17) mg/dL Creatinine 0.55 (0.52-1.04) mg/dL Estimated GFR > 60.0 (>60) mL/min BUN/Creatinine Ratio 20.0 (6-22) Glucose 114 H (70-100) mg/dL Lactate 1.0 (0.7-2.1) mmol/L Calcium 8.3 L (8.4-10.2) mg/dL Total Bilirubin 0.3 (0.2-1.3) mg/dL AST 31 (14-36) IU/L ALT 29 (<35) IU/L Alkaline Phosphatase 293 H D (38-126) U/L Total Creatine Kinase < 20 L (30-135) U/L CK-MB (CK-2) TNP CK-MB (CK-2) Rel Index TNP Troponin I < 0.012 (0.01-0.034) ng/mL Total Protein 6.1 L (6.3-8.2) g/dL Albumin 2.7 L (3.5-5.0) g/dL Globulin 3.4 (1.7-4.1) g/dL Albumin/Globulin Ratio 0.8 L (1.0-2.8) Procalcitonin 0.71 H (<0.5) ng/mL Urine Color Urine Appearance Urine pH (4.5-8.0) Ur Specific Bell (1.000-1.035) Urine Protein (Negative) Urine Glucose (UA) (Negative) g/dL Urine Ketones (NEGATIVE) Urine Occult Blood (Negative) Urine Nitrate (Negative) Urine Bilirubin (NEGATIVE) Urine Urobilinogen (0.2) E.U./dL Ur Leukocyte Esterase (NEGATIVE) Urine RBC (0-5/HPF) Urine WBC (0-5/HPF) Ur Squamous Epith Cells (0-5/HPF) Urine Bacteria (None) Ur Culture Indicated? 05/12/21 Range/Units 10:31 WBC (4.5-11.0) X10^3/uL RBC (4.0-5.2) X10^6/uL Hgb (12.0-16.0) g/dL Hct (36-46) % MCV (80-100) fL MCH (26-34) PG MCHC (30-36) % RDW (11.6-14.8) % Plt Count (150-400) X10^3/uL Neut % (Auto) Lymph % (Auto) [place] % (Auto) Eos % (Auto) Baso % (Auto) Lymph # (Auto) [place] # (Auto) Baso # (Auto) Total Counted Seg Neutrophils % (38-70) % Band Neutrophils % (3-7) % Lymphocytes % (Manual) (25-45) % Monocytes % (Manual) (2-11) % Basophils % (Manual) (0-1) % Neutrophils # (Manual) (8979-9221) /uL RBC Morphology Anisocytosis Macrocytosis Sodium (137-145) mmol/L Potassium (3.4-5.1) mmol/L Chloride (98-107) mmol/L Carbon Dioxide (22-32) mmol/L BUN (7-17) mg/dL Creatinine (0.52-1.04) mg/dL Estimated GFR (>60) mL/min BUN/Creatinine Ratio (6-22) Glucose (70-100) mg/dL Lactate (0.7-2.1) mmol/L Calcium (8.4-10.2) mg/dL Total Bilirubin (0.2-1.3) mg/dL AST (14-36) IU/L ALT (<35) IU/L Alkaline Phosphatase (38-126) U/L Total Creatine Kinase (30-135) U/L CK-MB (CK-2) CK-MB (CK-2) Rel Index Troponin I (0.01-0.034) ng/mL Total Protein (6.3-8.2) g/dL Albumin (3.5-5.0) g/dL Globulin (1.7-4.1) g/dL Albumin/Globulin Ratio (1.0-2.8) Procalcitonin (<0.5) ng/mL Urine Color Yellow Urine Appearance Clear Urine pH 7.0 (4.5-8.0) Ur Specific [place] 1.010 (1.000-1.035) Urine Protein 1+ H (Negative) Urine Glucose (UA) Negative (Negative) g/dL Urine Ketones Negative (NEGATIVE) Urine Occult Blood Trace-intact (Negative) Urine Nitrate Positive H (Negative) Urine Bilirubin Negative (NEGATIVE) Urine Urobilinogen 0.2 (0.2) E.U./dL Ur Leukocyte Esterase Negative (NEGATIVE) Urine RBC 1-5/hpf (0-5/HPF) Urine WBC 5-10/hpf H (0-5/HPF) Ur Squamous Epith Cells 1-5 /hpf (0-5/HPF) Urine Bacteria Moderate (10-30) H (None) Ur Culture Indicated? Specimen cultured MDM Narrative Medical decision making narrative: Patient has very reassuring history and physical exam. No signs of sepsis, renal function is appropriate, she feels significant improvement after fluids and pain control. She is encouraged to continue antibiotics as previously instructed, given extensive return precautions and questions have been answered to her apparent satisfaction Discharge Plan Departure Patient Disposition: Home Clinical Impression: Acute flank pain Instructions: DI for Kidney Infection Activity Restrictions/Additional Instructions: *You have been diagnosed with [flank pain, likely from a ongoing kidney infection. As we discussed, your labs today are very reassuring. We did send your urine for another culture but it would seem that you are on the appropriate antibiotic regimen *What to do: *Please continue to take your regular medications as directed. [x ] New medication prescriptions sent to your pharmacy: [[facility] ] [ ] New medication written as a paper prescription [ ] No new medications given *Please follow up with your primary care provider in 2-3 days, call for an appointment. Let them know you were seen in the Emergency Department and that we ask that you be seen in follow up. We will electronically transmit a record of today's note if your PCP is in our system *Return to Emergency Department if you should have any new, worsening or concerning symptoms, such as [fever greater than 101 F, shaking chills, worsening pain, persistent vomiting or other bothersome symptoms] Prescriptions: New hydrocodone-acetaminophen 5-325 mg tablet 1 tab PO Q4-6H PRN (Reason: pain) Qty: 10 0RF ondansetron 4 mg tablet,disintegrating 4 mg PO TID-QID PRN (Reason: nausea and vomiting) Qty: 10 0RF No Action hydroxyzine HCl 25 MG tablet 50 mg PO BID Qty: 0 0RF albuterol sulfate [Proventil HFA] 90 MCG/PUFF HFA aerosol inhaler 2 puff INH Q4HP PRN (Reason: Shortness Of Breath) Qty: 0 0RF gabapentin [Neurontin] 300 MG capsule 900 mg PO BID Qty: 0 0RF multivitamin [Multiple Vitamins] 1 EACH tablet 1 tab PO DAILY Qty: 0 0RF zolpidem [Ambien] 10 MG tablet 10 mg PO HS PRN (Reason: Insomnia) Qty: 0 0RF lorazepam 0.5 mg tablet 0.5 mg PO BEDTIME 0RF methocarbamol 500 mg tablet 1,000 mg PO QID 0RF Humulin N NPH Insulin KwikPen 100 unit/mL (3 mL) insulin pen 15 unit SUBCUT BID 0RF quetiapine 100 mg Tablet 300 mg PO BEDTIME 0RF magnesium glycinate 100 mg Tablet 800 mg PO BEDTIME 0RF melatonin 10 mg Tablet 20 mg PO BEDTIME 0RF promethazine 25 mg suppository 25 mg RI Q4-6H PRN (Reason: nausea and vomiting) Qty: 12 0RF prazosin 1 mg capsule 1 mg PO BEDTIME 0RF Label Comments: TAKE 1 CAPSULE BY MOUTH EVERY NIGHT FOR NIGHTMARES vitamin E 400 unit Tablet 400 unit PO DAILY 0RF docusate sodium 100 mg Capsule 100 mg PO DAILY 0RF cholecalciferol (vitamin D3) [Vitamin D3] 25 mcg (1,000 unit) Tablet 25 mcg PO DAILY 0RF ropinirole [Requip] 0.25 mg tablet 0.5 mg PO BEDTIME 0RF Rx Instructions: administer 1-3 hours before bedtime hydrocodone-acetaminophen 5-325 mg tablet 1 tab PO BID PRN (Reason: pain) Qty: 5 0RF hydrocodone-acetaminophen 5-325 mg tablet 1 tab PO Q4-6H PRN (Reason: pain) Qty: 10 0RF hydrocodone-acetaminophen 5-325 mg tablet 1 tab PO Q6H PRN (Reason: pain) Qty: 10 0RF ciprofloxacin HCl 500 mg tablet 500 mg PO BID Qty: 20 0RF sulfamethoxazole-trimethoprim [Bactrim DS] 800-160 mg tablet 1 tab PO Q12H Qty: 20 0RF hydrocodone-acetaminophen 5-325 mg tablet 1 tab PO Q6H PRN (Reason: pain) Qty: 10 0RF omeprazole 20 mg capsule,delayed release(DR/EC) 40 mg PO BID 0RF ondansetron 4 mg tablet,disintegrating 1 tab Translingual Q6H PRN (Reason: Nausea) 0RF Probiotic 1 tab PO DAILY 0RF Label Comments: Pt doubles probiotic when on antibiotics. promethazine 25 mg tablet 25 mg PO TID PRN (Reason: nausea and vomiting) Qty: 10 0RF prochlorperazine maleate 10 mg tablet 10 mg PO Q6H PRN (Reason: Nausea) 0RF losartan 50 mg Tablet 50 mg PO DAILY Qty: 30 0RF nystatin 100,000 unit/mL Suspension 500,000 unit PO QID Qty: 60 0RF linezolid 600 mg tablet 600 mg PO Q12H Qty: 14 0RF levofloxacin 500 mg tablet 500 mg PO DAILY Qty: 3 0RF hydromorphone 2 mg tablet 2 mg PO Q6H Qty: 10 0RF cephalexin 500 mg capsule 500 mg PO TID Qty: 21 0RF ciprofloxacin HCl 500 mg tablet 500 mg PO BID Qty: 20 0RF hydrocodone-acetaminophen 5-325 mg tablet 1 tab PO Q4-6H PRN (Reason: pain) Qty: 10 0RF oxycodone 5 mg/5 mL solution 10 mg PO Q4-6H PRN (Reason: pain) Qty: 150 0RF cefpodoxime 200 mg tablet 200 mg PO BID 10 Days Qty: 20 0RF Rx Instructions: must administer with a meal/food hydrocodone-acetaminophen 5-325 mg tablet 1 tab PO Q4-6H PRN (Reason: pain) Qty: 10 0RF ondansetron 4 mg tablet,disintegrating 4 mg PO TID-QID PRN (Reason: nausea and vomiting) Qty: 10 0RF Referrals: Fadi Ko DO [Primary Care Provider] -
[2021-05-12] MEDS: HYDROMORPHONE 0.5 MG INJ IV ×2 (09:14→10:37)
[2021-05-12] MEDS: SODIUM CHLORIDE 0.9% 1,000 ML 1000 ML IV ×2 (09:14→10:30)
[2021-05-12 09:25] LABS: Add Manual Diff / Slide Review YES; Hematocrit 29.8 % (36-46); Hemoglobin 10.2 g/dL (12.0-16.0); Mean Corpuscular HGB Conc 34.3 % (30-36); Mean Corpuscular Volume 102.1 fL (80-100); Platelet Count 383 X10^3/uL (150-400); Red Blood Cell Count 2.92 X10^6/uL (4.0-5.2); White Blood Cell Count 11.4 X10^3/uL (4.5-11.0)
[2021-05-12 09:36] LABS: Alanine Aminotransferase 29 IU/L (<35); Albumin 2.7 g/dL (3.5-5.0); Albumin Globulin Ratio 0.8 (1.0-2.8); Alkaline Phosphatase 293 U/L (38-126); Aspartate Aminotransferase 31 IU/L (14-36); Bilirubin Total 0.3 mg/dL (0.2-1.3); Blood Urea Nitrogen 11 mg/dL (7-17); Calcium 8.3 mg/dL (8.4-10.2); Carbon Dioxide 27 mmol/L (22-32); Chloride 106 mmol/L (98-107); Creatine Kinase < 20 U/L (30-135); Estimated Glomerular Filt Rate > 60.0 mL/min (>60); Globulin 3.4 g/dL (1.7-4.1); Glucose 114 mg/dL (70-100); HEMOLYSIS < 15 (0-50); Sodium 137 mmol/L (137-145); Total Protein 6.1 g/dL (6.3-8.2)
[2021-05-12 09:47] LABS: Troponin I < 0.012 ng/mL (0.01-0.034)
[2021-05-12 09:52] LABS: Procalcitonin 0.71 ng/mL (<0.5)
[2021-05-12 10:03] LABS: Neutrophils Absolute Manual 8550 /uL (3000-5900); Total Cells Counted 100
[2021-05-12 10:04] LABS: Anisocytosis 1+; Macrocytosis 1+
[2021-05-12 10:36] LABS: Appearance Urine UA CLEAR; Bilirubin Urine UA NEGATIVE (NEGATIVE); Color Urine UA YELLOW; Glucose Urine UA NEGATIVE (Negative); Ketones Urine UA NEGATIVE (NEGATIVE); Leukocyte Esterase Urine UA NEGATIVE (NEGATIVE); Nitrite Urine UA POSITIVE (Negative); Occult Blood Urine UA TRACE-INTACT (Negative); Protein Urine UA 1+ (Negative); Urobilinogen Urine UA 0.2 E.U./dL (0.2)
[2021-05-12 10:40] LABS: Bacteria Urine Moderate (10-30); RBC Urine 1-5/HPF (0-5/HPF); Squamous Epithelial Cell Urine 1-5 /HPF (0-5/HPF); WBC Urine 5-10/HPF (0-5/HPF)
[2021-05-12 10:41] LABS: Culture Indicated Urine Specimen Cultured
== END 2021-05-12 13:42 | disposition home or self-care (01) ==
PROVIDERS: Emergency Provider Emergency Medicine; PCP Family Medicine
DX: R10.9 Unspecified abdominal pain (principal)
CPT/HCPCS: 36415; 80053; 81001; 82550; 83605; 84145; 84484; 85007; 85025; 87040; 87077; 87086; 87147; 87186; 93005; 93010; 96361; 96374; 96376; 99284; J1170; J1642

== ENCOUNTER 2021-06-16 08:15 | Inpatient (IN) | payer OTHER, SELFPAY ==
[2020-09-28 11:54] VITALS: BMI 18.3
[2021-06-16] VITALS (91 sets, daily range): BP systolic 56–110; BP diastolic 35–69; PULSE 59–101; RESP 10–25; TEMP 36.1–36.4; O2SAT 66–100; BMI 16.1
--- NOTE | 2021-06-16 08:58 | ED.GENADULT ---
HPI - General Adult General Chief complaint: Weakness Stated complaint: Weak, dizzy, not eating x a week Time Seen by Provider: 06/16/21 08:52 Source: patient and family Mode of arrival: Wheelchair History of Present Illness HPI narrative: Patient is a 55-year-old female. Well known to myself in this emergency department. Has chronic known medical issues with frequent urinary tract infections. She is here with her . Her states that over the past several days she has had a decrease in oral intake of both food and fluids. Patient is not currently on antibiotics she does have frequent urinary tract infections. She has not been vomiting. Has been complaining of a headache. states she has not been vomiting. They have tried to get her to come to the emergency department multiple times over the past couple days but was not until other family members arrived that she agreed to come. Patient is unwilling/unable to provide any HPI. Related Data Home Medications Medication Instructions Recorded Confirmed albuterol sulfate 90 mcg/actuation 2 puff INH Q4HP PRN #0 01/08/13 09/28/20 aerosol inhaler (Proventil HFA) hydroxyzine HCl 25 mg tablet 50 mg PO BID #0 01/08/13 09/28/20 gabapentin 300 mg capsule 900 mg PO BID #0 07/04/17 09/28/20 (Neurontin) multivitamin (Multiple Vitamins) 1 tab PO DAILY #0 07/04/17 09/28/20 zolpidem 10 mg tablet (Ambien) 10 mg PO HS PRN #0 07/04/17 09/28/20 Probiotic 1 tab PO DAILY 09/26/17 09/28/20 omeprazole 20 mg capsule,delayed 40 mg PO BID 09/26/17 09/28/20 release ondansetron 4 mg disintegrating 1 tab TRANSLINGUAL Q6H PRN 09/26/17 09/28/20 tablet lorazepam 0.5 mg tablet 0.5 mg PO BEDTIME 05/30/18 09/28/20 insulin NPH isoph U-100 human 100 15 unit SUBCUT BID 05/17/19 09/28/20 unit/mL (3 mL) subcutaneous pen (Humulin N NPH U-100 Insulin KwikPen) methocarbamol 500 mg tablet 1,000 mg PO QID 05/17/19 09/28/20 quetiapine 100 mg tablet 300 mg PO BEDTIME 11/04/19 09/28/20 magnesium glycinate 100 mg tablet 800 mg PO BEDTIME 12/08/19 09/28/20 melatonin 10 mg tablet 20 mg PO BEDTIME 12/08/19 09/28/20 cholecalciferol (vitamin D3) 25 25 mcg PO DAILY 08/31/20 09/28/20 mcg (1,000 unit) tablet (Vitamin D3) docusate sodium 100 mg capsule 100 mg PO DAILY 08/31/20 09/28/20 prazosin 1 mg capsule 1 mg PO BEDTIME 08/31/20 09/28/20 ropinirole 0.25 mg tablet (Requip) 0.5 mg PO BEDTIME 08/31/20 09/28/20 vitamin E 400 unit tablet 400 unit PO DAILY 08/31/20 09/28/20 prochlorperazine maleate 10 mg 10 mg PO Q6H PRN 09/28/20 09/28/20 tablet Previous Rx's Medication Instructions Recorded promethazine 25 mg tablet 25 mg PO TID PRN #10 tab 04/16/20 promethazine 25 mg rectal 25 mg MN Q4-6H PRN #12 ea 04/19/20 suppository hydromorphone 2 mg tablet 2 mg PO Q6H #10 tab 09/30/20 levofloxacin 500 mg tablet 500 mg PO DAILY #3 tab 09/30/20 linezolid 600 mg tablet 600 mg PO Q12H #14 tab 09/30/20 losartan 50 mg tablet 50 mg PO DAILY #30 tab 09/30/20 nystatin 100,000 unit/mL oral 500,000 unit (5 mL) PO QID #60 ml 09/30/20 suspension hydrocodone 5 mg-acetaminophen 325 1 tab PO BID PRN #5 tab 11/04/20 mg tablet hydrocodone 5 mg-acetaminophen 325 1 tab PO Q4-6H PRN #10 tab 12/24/20 mg tablet hydrocodone 5 mg-acetaminophen 325 1 tab PO Q6H PRN #10 tab 02/07/21 mg tablet cephalexin 500 mg capsule 500 mg PO TID #21 cap 03/12/21 ciprofloxacin HCl 500 mg tablet 500 mg PO BID #20 tab 03/19/21 hydrocodone 5 mg-acetaminophen 325 1 tab PO Q4-6H PRN #10 tab 03/19/21 mg tablet oxycodone 5 mg/5 mL oral solution 10 mg (10 mL) PO Q4-6H PRN #150 ml 04/12/21 ciprofloxacin HCl 500 mg tablet 500 mg PO BID #20 tab 05/05/21 hydrocodone 5 mg-acetaminophen 325 1 tab PO Q6H PRN #10 tab 05/05/21 mg tablet sulfamethoxazole 800 1 tab PO Q12H #20 tab 05/05/21 mg-trimethoprim 160 mg tablet (Bactrim DS) hydrocodone 5 mg-acetaminophen 325 1 tab PO Q4-6H PRN #10 tab 05/07/21 mg tablet ondansetron 4 mg disintegrating 4 mg PO TID-QID PRN #10 tab 05/07/21 tablet hydrocodone 5 mg-acetaminophen 325 1 tab PO Q4-6H PRN #10 tab 05/12/21 mg tablet ondansetron 4 mg disintegrating 4 mg PO TID-QID PRN #10 tab 05/12/21 tablet Allergies Allergy/AdvReac Type Severity Reaction Status Date / Time mupirocin Allergy Unknown Verified 06/16/21 08:45 naproxen Allergy Unknown Verified 06/16/21 08:45 Penicillins Allergy Unknown SINCE Verified 06/16/21 08:45 CHILDHOOD droperidol AdvReac Unknown Verified 06/16/21 08:45 fenofibrate [FENOFIBRATE] AdvReac Unknown Verified 06/16/21 08:45 ibuprofen AdvReac Unknown NAUSEA Verified 06/16/21 08:45 metformin [METFORMIN] AdvReac Unknown Verified 06/16/21 08:45 metoclopramide AdvReac Unknown BECAME Verified 06/16/21 08:45 JITTERY AND ANXIOUS nitrofurantoin AdvReac Unknown NAUSEA Verified 06/16/21 08:45 Review of Systems Review of Systems Narrative: Provided by the . Constitutional Comments: Has been complaining of a headache Cardiovascular Comments: No reported chest pain Respiratory Comments: No reported cough Gastrointestinal Comments: No vomiting Genitourinary Comments: Does have dark colored urine Integumentary/Breasts Comments: No rashes Hematologic/Lymphatic On Anticoagulants: No Patient History Medical History (Updated 06/16/21 @ 15:53 by Brenton Drew DO) Anxiety Closed fracture of left humerus Endometriosis Fibromyalgia Heart palpitations History of asthma History of chronic hypertension History of COPD History of depression History of gastrointestinal ulcer History of kidney stones History of migraine History of panic attacks History of type 2 diabetes mellitus Hyperlipidemia Interstitial cystitis UTI (urinary tract infection) Surgical History History of urostomy S/P appendectomy Status post hysterectomy Status post left rotator cuff repair Family History Mother Diabetes mellitus Lupus Social History household members: spouse Smoking Status: Current every day smoker alcohol intake: current Smoking Status: Current every day smoker tobacco type: cigarettes alcohol intake frequency: holidays/special occasions only Substance Use Type: former substance user and marijuana Exam Initial Vital Signs Initial Vital Signs: Vital Signs Temperature 97.6 F 06/16/21 08:45 Pulse Rate 59 L 06/16/21 08:45 Respiratory Rate 13 06/16/21 08:45 Blood Pressure 57/35 L 06/16/21 08:45 Const General: ill appearing Other: Cachectic HENMT Head: normal to inspection and normocephalic Mouth: No moist mucous membranes Resp Effort & Inspection: normal respiratory effort Auscultation: clear to auscultation bilaterally Cardio Rate: bradycardic Rhythm: regular rhythm GI Other: Soft and nondistended Skin Other: No rashes Neuro Other: Patient not answering questions. She hold her eyes closed when I try to evaluate her pupils. She does respond to stimuli Extrem Other: No extremity swelling Psych Appearance: grossly normal and well kempt Scores GCS [place] coma scale eye opening: Spontaneous [place] coma scale verbal response: Orientated Eva coma scale motor response: Obey commands Eva coma scale total score: 15 Course Orders Ordered: ED Orders 06/16/21 12:15 Complete Blood Count AUTO DIFF Stat Lactate (Lactic Acid) Stat 06/16/21 12:39 CT head/brain wo con Stat 06/16/21 12:40 Consult to INTERNET RETAILER - Communications Writer Stat 06/16/21 13:30 Blood Culture Stat Comprehensive Metabolic Panel Stat Lipase Stat Troponin & CK Cardiac Panel Stat 06/16/21 13:36 VBG [Venous Blood Gas] Stat 06/16/21 14:55 CMP [Comprehensive Metabolic Panel] Stat 06/16/21 16:10 Urine Culture Stat Acetaminophen (Acetaminophen 325 Mg Tablet) 975 mg PO Q8HR PRN PRN Reason: pain Dextrose (Dextrose 50 % In Water 25 Gm/50 Ml Syringe) 25 gm IV PRN PRN PRN Reason: Hypoglycemia Enoxaparin Sodium (Enoxaparin 40 Mg/0.4 Ml Syringe) 40 mg SUBCUT DAILY ISSA Sodium Chloride (Normal Saline 0.9%) 1,000 mls @ 125 mls/hr IV CONT ISSA Last Infusion: 06/16/21 17:15 Dose: 0 mls/hr Documented by: Admin: 06/16/21 12:18 Dose: 125 mls/hr Documented by: LINDA Insulin Human Lispro (Insulin Lispro 100 Unit/Ml 3ml Vial) 0 unit SUBCUT ACHS ISSA; Protocol Naloxone HCl (Naloxone 0.4 Mg/Ml Vial) 0.2 mg IV Q2MIN PRN PRN Reason: Opiate Reversal Ondansetron HCl (Ondansetron 4 Mg/2 Ml Inj) 4 mg IV Q8HR PRN PRN Reason: Nausea And Vomiting Discontinued Medications Sodium Chloride (Normal Saline 0.9%) 1,000 mls @ 1,000 mls/hr IV BOLUS ONE Stop: 06/16/21 09:51 Last Infusion: 06/16/21 10:22 Dose: 0 mls/hr Documented by: Admin: 06/16/21 09:01 Dose: 1,000 mls/hr Documented by: BLELAOTEObi Sodium Chloride (Normal Saline 0.9%) 1,000 mls @ 1,000 mls/hr IV BOLUS ONE Stop: 06/16/21 11:43 Last Infusion: 06/16/21 12:19 Dose: 0 mls/hr Documented by: Admin: 06/16/21 11:11 Dose: 1,000 mls/hr Documented by: [email or web address] Doxycycline Hyclate 100 mg/ (Sodium Chloride) 100 mls @ 100 mls/hr IV NOW ONE Stop: 06/16/21 15:40 Last Infusion: 06/16/21 17:15 Dose: 0 mls/hr Documented by: Admin: 06/16/21 16:04 Dose: 100 mls/hr Documented by: LINDA Vital Signs Vital signs: Vital Signs - 8 hr 06/16/21 10:10 06/16/21 10:15 06/16/21 10:20 Pulse Rate 96 H 97 H 97 H Respiratory Rate 14 14 13 Blood Pressure 73/52 L 75/52 L 76/48 L Pulse Oximetry 06/16/21 10:25 06/16/21 10:30 06/16/21 10:36 Pulse Rate 97 H 97 H 97 H Respiratory Rate 11 L 13 12 Blood Pressure 70/45 L 70/49 L 66/47 L Pulse Oximetry 96 06/16/21 10:38 06/16/21 10:40 06/16/21 10:45 Pulse Rate 98 H 99 H 99 H Respiratory Rate 13 13 14 Blood Pressure 69/50 L 77/47 L 74/46 L Pulse Oximetry 06/16/21 10:50 06/16/21 10:55 06/16/21 11:00 Pulse Rate 99 H 98 H 97 H Respiratory Rate 14 12 12 Blood Pressure 69/46 L 75/50 L 74/52 L Pulse Oximetry 06/16/21 11:10 06/16/21 11:15 06/16/21 11:20 Pulse Rate 96 H 96 H 95 H Respiratory Rate 13 12 Blood Pressure 78/54 L 80/53 L 91/56 L Pulse Oximetry 06/16/21 11:25 06/16/21 11:30 06/16/21 11:37 Pulse Rate 94 H 93 H 93 H Respiratory Rate 12 12 Blood Pressure 89/54 L 90/58 L 95/51 L Pulse Oximetry 06/16/21 11:40 06/16/21 11:45 06/16/21 11:50 Pulse Rate 93 H 93 H 93 H Respiratory Rate 13 11 L 10 L Blood Pressure 96/51 L 86/55 L 97/55 L Pulse Oximetry 06/16/21 11:55 06/16/21 12:00 06/16/21 12:05 Pulse Rate 93 H 94 H 93 H Respiratory Rate 12 13 10 L Blood Pressure 96/56 L 83/58 L 85/57 L Pulse Oximetry 06/16/21 12:10 06/16/21 12:15 06/16/21 12:20 Pulse Rate 93 H 93 H 93 H Respiratory Rate 12 13 13 Blood Pressure 88/58 L 83/57 L 81/58 L Pulse Oximetry 06/16/21 12:25 06/16/21 12:30 06/16/21 12:35 Pulse Rate 93 H 94 H 96 H Respiratory Rate 16 14 17 Blood Pressure 82/56 L 85/54 L 87/56 L Pulse Oximetry 06/16/21 12:41 06/16/21 12:56 06/16/21 12:58 Pulse Rate 95 H 93 H 92 H Respiratory Rate 17 14 16 Blood Pressure 82/52 L 75/50 L 76/51 L Pulse Oximetry 98 06/16/21 13:00 06/16/21 13:01 06/16/21 13:06 Pulse Rate 92 H 92 H 93 H Respiratory Rate 15 16 16 Blood Pressure 71/49 L 62/45 L Pulse Oximetry 100 98 100 06/16/21 13:10 06/16/21 13:15 06/16/21 13:20 Pulse Rate 93 H 92 H 92 H Respiratory Rate 17 14 11 L Blood Pressure 68/48 L 74/51 L 74/51 L Pulse Oximetry 100 100 100 06/16/21 13:25 06/16/21 13:30 06/16/21 13:35 Pulse Rate 92 H 91 H 93 H Respiratory Rate 10 L 10 L 23 Blood Pressure 69/47 L 70/48 L 79/53 L Pulse Oximetry 100 100 87 L 06/16/21 13:41 06/16/21 13:45 06/16/21 13:50 Pulse Rate 91 H 90 88 Respiratory Rate 18 25 H 18 Blood Pressure 79/53 L 93/53 L 75/52 L Pulse Oximetry 96 100 91 06/16/21 13:55 06/16/21 14:00 06/16/21 14:05 Pulse Rate 88 88 89 Respiratory Rate 14 13 14 Blood Pressure 74/52 L 73/53 L 73/51 L Pulse Oximetry 100 99 98 06/16/21 14:10 06/16/21 14:15 06/16/21 14:20 Pulse Rate 90 88 90 Respiratory Rate 14 14 13 Blood Pressure 71/52 L 75/51 L 76/47 L Pulse Oximetry 96 94 06/16/21 14:25 06/16/21 14:30 06/16/21 14:31 Pulse Rate 90 90 90 Respiratory Rate 17 22 18 Blood Pressure 76/51 L 69/53 L Pulse Oximetry 91 95 95 06/16/21 14:36 06/16/21 14:39 06/16/21 14:40 Pulse Rate 89 90 90 Respiratory Rate 18 15 14 Blood Pressure 76/49 L 77/50 L 72/51 L Pulse Oximetry 95 98 95 06/16/21 14:50 06/16/21 15:00 06/16/21 15:10 Pulse Rate Respiratory Rate Blood Pressure 82/54 L 76/50 L 76/53 L Pulse Oximetry 06/16/21 15:20 06/16/21 15:30 06/16/21 15:50 Pulse Rate 91 H 87 87 Respiratory Rate 19 19 Blood Pressure 85/60 L 92/62 80/55 L Pulse Oximetry 96 99 100 Medical Decision Making Medical Records Medical records reviewed: Yes I reviewed the patient's medical records. Lab Data Lab results reviewed: Yes I reviewed the patient's lab results. Result diagrams: 06/16/21 12:15 06/16/21 14:55 Labs: Lab Results 06/16/21 06/16/21 06/16/21 Range/Units 12:15 12:15 13:30 WBC 18.2 H (4.5-11.0) X10^3/uL RBC 2.92 L (4.0-5.2) X10^6/uL Hgb 10.3 L (12.0-16.0) g/dL Hct 31.5 L (36-46) % MCV 107.9 H (80-100) fL MCH 35.1 H (26-34) PG MCHC 32.6 (30-36) % RDW 14.4 (11.6-14.8) % Plt Count 463 H (150-400) X10^3/uL Neut % (Auto) 89.9 H (50-75) % Lymph % (Auto) 4.9 L (25-40) % [place] % (Auto) 4.8 (3-14) % Eos % (Auto) 0.1 L (2-4) % Baso % (Auto) 0.3 (0-2) % Neut # (Auto) 69061 H (8456-0553) /uL Lymph # (Auto) 900 L (2194-6202) /uL [place] # (Auto) 900 (0-900) /uL Eos # (Auto) 0 (0-450) /uL Baso # (Auto) 100 (0-100) /uL VBG pH (7.33-7.43) VBG pCO2 (45-50) mmHg VBG pO2 (35-45) mmHg VBG HCO3 (23-28) mmol/L VBG Total CO2 (24-29) mmol/L VBG O2 Saturation (70-75) % VBG Base Excess (0-4) mmol/L Sodium 132 L (137-145) mmol/L Potassium 4.8 (3.4-5.1) mmol/L Chloride 112 H (98-107) mmol/L Carbon Dioxide 11 L (22-32) mmol/L BUN 27 H (7-17) mg/dL Creatinine 0.91 (0.52-1.04) mg/dL Estimated GFR > 60.0 (>60) mL/min BUN/Creatinine Ratio 29.7 H (6-22) Glucose 246 H (70-100) mg/dL Lactate 0.9 (0.7-2.1) mmol/L Calcium 7.8 L (8.4-10.2) mg/dL Total Bilirubin 0.3 (0.2-1.3) mg/dL AST 20 (14-36) IU/L ALT 24 (<35) IU/L Alkaline Phosphatase 205 H (38-126) U/L Total Creatine Kinase < 20 L (30-135) U/L CK-MB (CK-2) TNP CK-MB (CK-2) Rel Index TNP Troponin I < 0.012 (0.01-0.034) ng/mL Total Protein 5.6 L (6.3-8.2) g/dL Albumin 2.2 L (3.5-5.0) g/dL Globulin 3.4 (1.7-4.1) g/dL Albumin/Globulin Ratio 0.6 L (1.0-2.8) Lipase 17 L (23-300) U/L 06/16/21 06/16/21 Range/Units 13:36 14:55 WBC (4.5-11.0) X10^3/uL RBC (4.0-5.2) X10^6/uL Hgb (12.0-16.0) g/dL Hct (36-46) % MCV (80-100) fL MCH (26-34) PG MCHC (30-36) % RDW (11.6-14.8) % Plt Count (150-400) X10^3/uL Neut % (Auto) (50-75) % Lymph % (Auto) (25-40) % [place] % (Auto) (3-14) % Eos % (Auto) (2-4) % Baso % (Auto) (0-2) % Neut # (Auto) (0473-2753) /uL Lymph # (Auto) (6104-4668) /uL [place] # (Auto) (0-900) /uL Eos # (Auto) (0-450) /uL Baso # (Auto) (0-100) /uL VBG pH 7.25 L (7.33-7.43) VBG pCO2 29.8 L (45-50) mmHg VBG pO2 30 L (35-45) mmHg VBG HCO3 13 L (23-28) mmol/L VBG Total CO2 14 L (24-29) mmol/L VBG O2 Saturation 50 L (70-75) % VBG Base Excess -14.0 L (0-4) mmol/L Sodium 133 L (137-145) mmol/L Potassium 4.4 (3.4-5.1) mmol/L Chloride 117 H (98-107) mmol/L Carbon Dioxide 12 L (22-32) mmol/L BUN 25 H (7-17) mg/dL Creatinine 0.76 (0.52-1.04) mg/dL Estimated GFR > 60.0 (>60) mL/min BUN/Creatinine Ratio 32.9 H (6-22) Glucose 217 H (70-100) mg/dL Lactate (0.7-2.1) mmol/L Calcium 7.0 L (8.4-10.2) mg/dL Total Bilirubin 0.3 (0.2-1.3) mg/dL AST 24 (14-36) IU/L ALT 19 (<35) IU/L Alkaline Phosphatase 139 H (38-126) U/L Total Creatine Kinase (30-135) U/L CK-MB (CK-2) CK-MB (CK-2) Rel Index Troponin I (0.01-0.034) ng/mL Total Protein 4.7 L (6.3-8.2) g/dL Albumin 1.8 L (3.5-5.0) g/dL Globulin 2.9 (1.7-4.1) g/dL Albumin/Globulin Ratio 0.6 L (1.0-2.8) Lipase (23-300) U/L Point of Care Testing Glucose POC 270 Point of care testing: Point of Care Testing Glucose POC [address] scan - head: Radiologist's Impression: [address] [address] [address] Scan Report Signed Patient: Melvi Gibbs MR#: [id number] : 1965 Acct:[id number] Age/Sex: 55 / F Date of Service: 06/16/21 Loc: ED Accession Number: [id number] ?? Procedure: CT head/brain wo con Ordering Provider: Brenton Drew D.O. PROCEDURE:? CT HEAD/BRAIN WO CON ? INDICATIONS:? fall, hit head, headache ? TECHNIQUE:? Noncontrast 4.5 mm thick angled axial sections acquired from the foramen magnum to the vertex, with coronal and sagittal reformats.? For radiation dose reduction, the following was used:? automated exposure control, adjustment of mA and/or kV according to patient size.? ? COMPARISON:? None. ? FINDINGS:? Image quality:? Excellent.? ? CSF spaces:? Basal cisterns are patent.? No extra-axial fluid collections.? Ventricles are normal in size and shape.? ? Brain:? No midline shift.? No intracranial masses or hemorrhage.? Abel-white matter interface is normal.? ? Skull and face:? Calvarium and visualized facial bones are intact, without suspicious lesions.? ? Sinuses:? Visualized sinuses and mastoids are clear.? ? IMPRESSION:? No acute intracranial finding. ? ? Dictated by: Jae Stringer M.D. on 06/16/2021 at 13:24 ? ? Approved by: Jae Stringer M.D. on 06/16/2021 at 13:25?? ECG Data Attestation: I personally reviewed and interpreted this ECG as follows: Interpretation: Sinus rhythm Ventricular rate 98 Normal axis Normal QRS Normal QTC No ST T wave changes MDM Narrative Medical decision making narrative: Patient is well-known to myself. Unsure as to why she has not had much to eat or drink over the past couple days. She will not explain exactly why. She does have a history of anxiety and I feel this is a large component what is going on today. She is fluid responsive. Her blood pressure improves with fluid boluses. Had somewhat of a delay in care secondary to inability to obtain blood draw was and then having multiple issues with hemolysis. Patient is acidotic but does not have an anion gap. Low suspicion for DKA. 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 She states that she does not feel like she has a urinary tract infection is most the time she has pain with this. Head CT was obtained because she states she has fallen recently. Head CT was unremarkable. No fevers. I do feel given my knowledge of her past that this is not sepsis or I will hold on antibiotics. I did discuss the case with Dr. Hua on-call for Internal Medicine who agrees with this will wait for urinalysis results I do suspect that her metabolic acidosis is related to dehydration. Given her presentation and vital signs she does require admission the hospital for further evaluation treatment. Patient and agree with this. Discharge Plan Departure Patient Disposition: Admitted as Observation Clinical Impression: Dehydration, Acidosis Admit Date/Time: 06/16/21 15:55 Admit Provider: Heath Rice
[2021-06-16] MEDS: SODIUM CHLORIDE 0.9% 1,000 ML 1000 ML IV ×2 (09:01→11:11)
[2021-06-16] MEDS: SODIUM CHLORIDE 0.9% 1,000 ML 125 ML IV ×2 (12:18→18:00)
--- NOTE | 2021-06-16 12:39 | DI.CT.S_ITS ---
PROCEDURE: CT HEAD/BRAIN WO CON INDICATIONS: fall, hit head, headache TECHNIQUE: Noncontrast 4.5 mm thick angled axial sections acquired from the foramen magnum to the vertex, with coronal and sagittal reformats. For radiation dose reduction, the following was used: automated exposure control, adjustment of mA and/or kV according to patient size. COMPARISON: None. FINDINGS: Image quality: Excellent. CSF spaces: Basal cisterns are patent. No extra-axial fluid collections. Ventricles are normal in size and shape. Brain: No midline shift. No intracranial masses or hemorrhage. Abel-white matter interface is normal. Skull and face: Calvarium and visualized facial bones are intact, without suspicious lesions. Sinuses: Visualized sinuses and mastoids are clear. IMPRESSION: No acute intracranial finding. Dictated by: Jae Stringer M.D. on 06/16/2021 at 13:24 Approved by: Jae Stringer M.D. on 06/16/2021 at 13:25
[2021-06-16 12:51] LABS: Add Manual Diff / Slide Review NO; Basophils Absolute Auto 100 /uL (0-100); Basophils Percent Auto 0.3 % (0-2); Eosinophils Absolute Auto 0 /uL (0-450); Eosinophils Percent Auto 0.1 % (2-4); Hematocrit 31.5 % (36-46); Hemoglobin 10.3 g/dL (12.0-16.0); Lymphocytes Absolute Auto 900 /uL (1100-4500); Lymphocytes Percent Auto 4.9 % (25-40); Mean Corpuscular HGB Conc 32.6 % (30-36); Mean Corpuscular Hemoglobin 35.1 PG (26-34); Mean Corpuscular Volume 107.9 fL (80-100); Monocytes Absolute Auto 900 /uL (0-900); Monocytes Percent Auto 4.8 % (3-14); Neutrophils Absolute Auto 16400 /uL (1500-7000); Neutrophils Percent Auto 89.9 % (50-75); Platelet Count 463 X10^3/uL (150-400); Red Blood Cell Count 2.92 X10^6/uL (4.0-5.2); Red Cell Distribution Width 14.4 % (11.6-14.8); White Blood Cell Count 18.2 X10^3/uL (4.5-11.0)
[2021-06-16 13:05] LABS: Lactate (Lactic Acid) 0.9 mmol/L (0.7-2.1)
[2021-06-16 14:01] LABS: HCO3 VBG 13 mmol/L (23-28); PCO2 VBG 29.8 mmHg (45-50); PO2 VBG 30 mmHg (35-45); Total CO2 VBG 14 mmol/L (24-29); pH VBG 7.25 (7.33-7.43)
[2021-06-16 14:02] LABS: Oxygen Saturation VBG 50 % (70-75)
[2021-06-16 14:45] LABS: Alanine Aminotransferase 24 IU/L (<35); Albumin 2.2 g/dL (3.5-5.0); Albumin Globulin Ratio 0.6 (1.0-2.8); Alkaline Phosphatase 205 U/L (38-126); Aspartate Aminotransferase 20 IU/L (14-36); BUN Creatinine Ratio 29.7 (6-22); Bilirubin Total 0.3 mg/dL (0.2-1.3); Blood Urea Nitrogen 27 mg/dL (7-17); Calcium 7.8 mg/dL (8.4-10.2); Carbon Dioxide 11 mmol/L (22-32); Chloride 112 mmol/L (98-107); Creatine Kinase < 20 U/L (30-135); Estimated Glomerular Filt Rate > 60.0 mL/min (>60); Globulin 3.4 g/dL (1.7-4.1); Glucose 246 mg/dL (70-100); Lipase 17 U/L (23-300); Potassium 4.8 mmol/L (3.4-5.1); Sodium 132 mmol/L (137-145); Total Protein 5.6 g/dL (6.3-8.2); Troponin I < 0.012 ng/mL (0.01-0.034)
[2021-06-16 14:48] LABS: HEMOLYSIS < 15 (0-50)
[2021-06-16 15:31] LABS: Alanine Aminotransferase 19 IU/L (<35); Albumin 1.8 g/dL (3.5-5.0); Albumin Globulin Ratio 0.6 (1.0-2.8); Alkaline Phosphatase 139 U/L (38-126); Aspartate Aminotransferase 24 IU/L (14-36); BUN Creatinine Ratio 32.9 (6-22); Bilirubin Total 0.3 mg/dL (0.2-1.3); Blood Urea Nitrogen 25 mg/dL (7-17); Carbon Dioxide 12 mmol/L (22-32); Chloride 117 mmol/L (98-107); Estimated Glomerular Filt Rate > 60.0 mL/min (>60); Globulin 2.9 g/dL (1.7-4.1); Glucose 217 mg/dL (70-100); HEMOLYSIS < 15 (0-50); Potassium 4.4 mmol/L (3.4-5.1); Sodium 133 mmol/L (137-145); Total Protein 4.7 g/dL (6.3-8.2)
[2021-06-16] MEDS: DOXYCYCLINE 100 MG in SODIUM CHLORIDE 0.9% 100 ML IV (16:04)
--- NOTE | 2021-06-16 16:16 | CM.DANOTE ---
Initial DCP Assessment Note Patient is 55 y/o female who presents to ED due to concern for dizziness, weakness and not eating or drinking for a week. Patient has hx of UTIs, sepsis, Pyelonephritis, hypoglycemia, Anxiety, chest pain, and cosochondritis. Patient has 32 ED encounters within the last 12 months. Patient has several insurance payors listed but per ED registration, patient's current insurance is [facility]. Patient's current PCP is Dr. Fadi Ko who is will be retiring soon, patient reports concern for new PCP when current PCP retires. Patient has port due to ongoing medical needs and expresses concern that there are not many more locations where another port can be on her body. Patient resides at home in [place] with who is well versed in emergent medical response services. Patient endorses family near by. Patient endorses that she manages needs well at home but could use more help. Patient endorses interest in HH and MH counseling services. Patient is A/Ox4 and tearful at times due to concern of not being heard/listened or understood. Per ED provider Dr. Drew, patient is to be admitted for further medical observation due to dehydration and Acidosis. PROFESSOR OF PHYSICAL EDUCATION provides patient with list of MH provider information via [place] and list of providers that accept [place]. Plan: Patient to be admitted to acute care for further medical evaluation, DCP to f/u with POC, possibly HH at home. MYNOR Thibodeaux Discharge Planning/Care Management CM Discharge Assessment Start: 06/16/21 16:09 Freq: Status: Active Protocol: Document 06/16/21 16:09 LN (Rec: 06/16/21 16:16 LN [id number]) Discharge Planning Assessment Assigned Cardiology Clinical Consultant MYNOR Navarro Advance Directives? No Advance Directives on File No History Provided By Patient,Significant Other, Medical Record Has Patient been admitted in last 30 No days? Prior Living Arrangements House Household Members spouse Type of transportation used prior to Relies on Others admit Independent with ADL's Yes Is patient alert and oriented? Yes Needs Assistance With Managing Medications,Home Chores / Shopping Caregiver for Another No Community Services used prior to Home Health Nurse admission: Patient/Family Preference Home with Home Health Discharge Plan Home with Home Health Transportation Arrangement Spouse Referrals Initiated Other Additional Comment ED PROFESSOR OF PHYSICAL EDUCATION to give patient informaiton about MH counseling services Comment HH options not discussed in ED but patient shows interest in HH. Review Status In Process Please Provide Date Initial DC 06/16/21 Assessment Was Performed
[2021-06-16 16:59] LABS: COVID19 -Nasal RAPID Negative (Negative)
[2021-06-16] MEDS: ACETAMINOPHEN 325 MG TABLET 975 MG PO (18:34)
[2021-06-16] MEDS: INSULIN REGULAR 100 UNIT/ML 3 ML VIAL 8 UNIT SUBCUT (19:37)
[2021-06-16 19:47] LABS: Procalcitonin 0.39 ng/mL (<0.5)
[2021-06-16 19:56] LABS: Appearance Urine UA CLOUDY; Bilirubin Urine UA NEGATIVE (NEGATIVE); Color Urine UA YELLOW; Glucose Urine UA TRACE g/dL (Negative); Ketones Urine UA TRACE (NEGATIVE); Leukocyte Esterase Urine UA 3+ (NEGATIVE); Nitrite Urine UA POSITIVE (Negative); Occult Blood Urine UA 1+ (Negative); Protein Urine UA 1+ (Negative); Urobilinogen Urine UA 0.2 E.U./dL (0.2)
[2021-06-16 20:00] LABS: UR Morphine/Opiate cutoff 300 Negative (Negative); Ur Creatinine Normal (Normal); Ur Specific Gravity Normal (Normal); Urine Amphetamines Negative (Negative); Urine Barbiturates Negative (Negative); Urine Benzodiazepines Negative (Negative); Urine Cocaine Negative (Negative); Urine MDMA Negative (Negative); Urine Methadone Negative (Negative); Urine Methamphetamines Negative (Negative); Urine Oxycodone Negative (Negative); Urine Phencyclidine Negative (Negative); Urine Tetrahydrocannabinol Positive (Negative); Urine Tricyclic Antidepressant Positive (Negative); Urine pH Normal (Normal)
[2021-06-16 20:09] LABS: Bacteria Urine Many (>30); Calcium Oxalate Crystals Urine Few; RBC Urine 0-1/HPF (0-5/HPF); Squamous Epithelial Cell Urine 0-1 /HPF (0-5/HPF); WBC Urine 10-30/HPF (0-5/HPF)
[2021-06-16 20:10] LABS: Culture Indicated Urine Specimen Cultured
--- NOTE | 2021-06-16 20:52 | DI.US.S_ITS ---
PROCEDURE: US RENAL COMPLETE INDICATIONS: UTI, HX OF PYLONEPHRITIS W/UROSTOMY TECHNIQUE: Real-time scanning was performed of the kidneys and bladder, with image documentation. COMPARISON: [facility], CT, CT ABDOMEN PELVIS WITH CONTRAST, 03/25/2021, 15:12. [facility], US, US RENAL COMPLETE, 09/29/2020, 13:23. FINDINGS: Kidneys: Right kidney measures 9.8 cm long; left kidney measures 10.7 cm long. Right renal cortical thickness is 0.8 cm; left renal cortical thickness is 1 cm. Renal cortical echotexture is normal. No nephrolithiasis or suspicious solid mass lesions. Mild right hydronephrosis with trace perinephric fluid. Bladder: Surgically absent. Miscellaneous: No free pelvic fluid. IMPRESSION: Mild right hydronephrosis. Dictated by: Federico Meraz M.D. on 06/17/2021 at 14:36 Approved by: Federico Meraz M.D. on 06/17/2021 at 14:39
--- NOTE | 2021-06-16 21:50 | P.HP_ITS ---
History of Present Illness History of Present Illness Date Patient Seen: 06/16/21 Time Patient Seen: 21:00 Chief complaint: Weak, dizzy, not eating x a week Narrative: Melvi saucedo a 55-year-old female with a past medical history of chronic interstitial cystitis, history of cystostomy and urostomy placement, recurrent pyelonephritis, history of MDR bacteremia and bacterurea, type 2 diabetes, generalized anxiety, hypertension and fibromyalgia presented to the emergency department generalized weakness and poor oral intake. The patient states she just feels sick, she apparently fell and hit her head but could not tell me when when, since she has been chilly for months, she is not hungry, she has had some vomiting but no nausea, he has not felt hungry generally feeling ?blah?, she has had some new incontinence, she had been constipated for 3 days and had a BM for the 1st time today. She has a urostomy bag which was changed 2 days ago out of a 4 day scheduled change interval. She states she has had the urostomy for at least 20 years. In the emergency department the head CT was negative for any acute findings. Patient is afebrile, blood pressure 82/51, heart rate 90, respiratory rate 15, oxygen saturation of 99% on 2 L, she weighs 45.3 kg with a BMI of 16.1. Her WBC is elevated 18.2, RBC 2.92, hemoglobin 10.3, hematocrit 31.5, and platelet count of 2 463. She is severely acidotic with a VBG pH of 7.25, pCO2 is 29.8, PO2 30, bicarb 13, VBG total CO2 is 14, sodium was 133, potassium 4.4, chloride 117, serum bicarb 12, BUN 25, her EGFR is norm mole, glucose 217, lactate 0 point 9 calcium 0.0, albumin is 1.8 correcting her calcium to 8.5, lipase is 17, UA is positive for nitrates and many bacteria however unknown if colonized, it will be cultured, toxicology is positive for tricyclic antidepressants and marijuana, and COVID-19 PCR is negative. Patient History Medical History (Updated 06/16/21 @ 22:18 by YASMANI Velazquez) Anxiety Closed fracture of left humerus Endometriosis Fibromyalgia Heart palpitations History of asthma History of chronic hypertension History of COPD History of depression History of gastrointestinal ulcer History of kidney stones History of migraine History of panic attacks History of type 2 diabetes mellitus Hyperlipidemia Ileostomy in place Interstitial cystitis Tobacco dependence UTI (urinary tract infection) Surgical History History of urostomy S/P appendectomy Status post hysterectomy Status post left rotator cuff repair Family & Social History Family History Mother Diabetes mellitus Lupus Father Alcoholism Tobacco dependence Social History: household members spouse Prior Living Arrangements House Safety & Behavioral: Feels Safe in Current Yes Environment Been Physically Hurt or No Threatened By a Person Suicidal Ideation Description None Suicide Plan Description No Plan Tobacco & Substance use: Tobacco type cigarettes Smoking Status Current every day smoker Smoking packs per day 1 alcohol intake current alcohol intake frequency holiday/special occasion Substance Use Type marijuana,former substance user Meds Home Medications and Allergies Home Medications Medication Instructions Recorded Confirmed Type albuterol sulfate 90 mcg/actuation 2 puff INH Q4HP PRN #0 01/08/13 06/16/21 History aerosol inhaler (Proventil HFA) hydroxyzine HCl 25 mg tablet 50 mg PO BID #0 01/08/13 06/16/21 History gabapentin 300 mg capsule 900 mg PO BID #0 07/04/17 06/16/21 History (Neurontin) multivitamin (Multiple Vitamins) 1 tab PO DAILY #0 07/04/17 06/16/21 History zolpidem 10 mg tablet (Ambien) 10 mg PO HS PRN #0 07/04/17 06/16/21 History Probiotic 1 tab PO DAILY 09/26/17 06/16/21 History omeprazole 20 mg capsule,delayed 40 mg PO BID 09/26/17 06/16/21 History release ondansetron 4 mg disintegrating 1 tab TRANSLINGUAL Q6H PRN 09/26/17 06/16/21 History tablet lorazepam 0.5 mg tablet 0.5 mg PO BEDTIME 05/30/18 06/16/21 History insulin NPH isoph U-100 human 100 15 unit SUBCUT BID 05/17/19 06/16/21 History unit/mL (3 mL) subcutaneous pen (Humulin N NPH U-100 Insulin KwikToni) methocarbamol 500 mg tablet 500 mg PO QID 05/17/19 06/16/21 History quetiapine 100 mg tablet 300 mg PO BEDTIME 11/04/19 06/16/21 History melatonin 10 mg tablet 20 mg PO BEDTIME 12/08/19 06/16/21 History promethazine 25 mg tablet 25 mg PO TID PRN #10 tab 04/16/20 06/16/21 Rx promethazine 25 mg rectal 25 mg MN Q4-6H PRN #12 ea 04/19/20 06/16/21 Rx suppository cholecalciferol (vitamin D3) 25 25 mcg PO DAILY 08/31/20 06/16/21 History mcg (1,000 unit) tablet (Vitamin D3) docusate sodium 100 mg capsule 100 mg PO DAILY 08/31/20 06/16/21 History prazosin 1 mg capsule 1 mg PO BEDTIME 08/31/20 06/16/21 History ropinirole 0.25 mg tablet (Requip) 0.75 mg PO BEDTIME 08/31/20 06/16/21 History vitamin E 400 unit tablet 400 unit PO DAILY 08/31/20 06/16/21 History losartan 50 mg tablet 50 mg PO DAILY #30 tab 09/30/20 06/16/21 Rx famotidine 20 mg tablet 20 mg PO BID 06/16/21 06/16/21 History magnesium glycinate 1,050 mg PO QPM 06/16/21 06/16/21 History Allergies Allergy/AdvReac Type Severity Reaction Status Date / Time mupirocin Allergy Unknown Verified 06/16/21 08:45 naproxen Allergy Unknown Verified 06/16/21 08:45 Penicillins Allergy Unknown SINCE Verified 06/16/21 08:45 CHILDHOOD droperidol AdvReac Unknown Verified 06/16/21 08:45 fenofibrate [FENOFIBRATE] AdvReac Unknown Verified 06/16/21 08:45 ibuprofen AdvReac Unknown NAUSEA Verified 06/16/21 08:45 metformin [METFORMIN] AdvReac Unknown Verified 06/16/21 08:45 metoclopramide AdvReac Unknown BECAME Verified 06/16/21 08:45 JITTERY AND ANXIOUS nitrofurantoin AdvReac Unknown NAUSEA Verified 06/16/21 08:45 Review of Systems Review of Systems ROS: Yes All systems reviewed with the patient and are negative except as otherwise documented Exam Vital Signs (past 8 hours): - 06/16/21 13:55 06/16/21 14:00 06/16/21 14:05 Temperature Pulse Rate 88 88 89 Respiratory Rate 14 13 14 Blood Pressure 74/52 L 73/53 L 73/51 L Pulse Oximetry 100 99 98 06/16/21 14:10 06/16/21 14:15 06/16/21 14:20 Temperature Pulse Rate 90 88 90 Respiratory Rate 14 14 13 Blood Pressure 71/52 L 75/51 L 76/47 L Pulse Oximetry 96 94 06/16/21 14:25 06/16/21 14:30 06/16/21 14:31 Temperature Pulse Rate 90 90 90 Respiratory Rate 17 22 18 Blood Pressure 76/51 L 69/53 L Pulse Oximetry 91 95 95 06/16/21 14:36 06/16/21 14:39 06/16/21 14:40 Temperature Pulse Rate 89 90 90 Respiratory Rate 18 15 14 Blood Pressure 76/49 L 77/50 L 72/51 L Pulse Oximetry 95 98 95 06/16/21 14:50 06/16/21 15:00 06/16/21 15:10 Temperature Pulse Rate Respiratory Rate Blood Pressure 82/54 L 76/50 L 76/53 L Pulse Oximetry 06/16/21 15:20 06/16/21 15:30 06/16/21 15:50 Temperature Pulse Rate 91 H 87 87 Respiratory Rate 19 19 Blood Pressure 85/60 L 92/62 80/55 L Pulse Oximetry 96 99 100 06/16/21 16:00 06/16/21 16:10 06/16/21 16:30 Temperature Pulse Rate 87 90 93 H Respiratory Rate 16 16 22 Blood Pressure 80/54 L 90/60 Pulse Oximetry 100 98 94 06/16/21 16:31 06/16/21 16:40 06/16/21 16:50 Temperature Pulse Rate 93 H 87 91 H Respiratory Rate 19 17 19 Blood Pressure 92/51 L 80/55 L 91/62 Pulse Oximetry 95 93 96 06/16/21 17:00 06/16/21 17:20 06/16/21 18:00 Temperature 97.0 F L 97.0 F L Pulse Rate 87 86 90 Respiratory Rate 18 14 15 Blood Pressure 82/53 L 82/51 L Pulse Oximetry 100 66 L 99 06/16/21 18:03 Temperature Pulse Rate Respiratory Rate Blood Pressure Pulse Oximetry 99 Oxygen Delivery Method Room Air Oxygen Flow Rate 2 Narrative Exam Narrative: Gen: Alert, oriented, cachectic and chronically ill appearing 55 y.o. female, labile HEENT: normocephalic, atraumatic, conjunctiva clear, sclera non-icteric, oral mucosa pink and moist, edentulous Neck: supple, full ROM, no JVD, trachea is midline Resp: Lungs CTA, non-labored breathing CV: RRR, no murmur or rubs Abd: Illeostomy bag in place, appears to have a collection of creamy substance around the stoma, stoma is pink w/o signs of infection, urine clear, soft, non- tender, normoactive BTs Skin: no lesions or rashes, dry and intact, thin and brittle appearing hair Neuro: Severely depressed affect, Alert and oriented X 4 w/no focal deficits. Speech clear and coherent. Extremities: moves all 4 extremities, is ambulatory, negative Javid?s sign Psyche: Depressed and labile Objective Labs Result Diagrams: 06/16/21 12:15 06/16/21 14:55 Labs: Laboratory Results - last 24 hr 06/16/21 06/16/21 06/16/21 12:15 12:15 13:30 WBC 18.2 H RBC 2.92 L Hgb 10.3 L Hct 31.5 L MCV 107.9 H MCH 35.1 H MCHC 32.6 RDW 14.4 Plt Count 463 H Neut % (Auto) 89.9 H Lymph % (Auto) 4.9 L Clare % (Auto) 4.8 Eos % (Auto) 0.1 L Baso % (Auto) 0.3 Neut # (Auto) 55427 H Lymph # (Auto) 900 L Clare # (Auto) 900 Eos # (Auto) 0 Baso # (Auto) 100 VBG pH VBG pCO2 VBG pO2 VBG HCO3 VBG Total CO2 VBG O2 Saturation VBG Base Excess Sodium 132 L Potassium 4.8 Chloride 112 H Carbon Dioxide 11 L BUN 27 H Creatinine 0.91 Estimated GFR > 60.0 BUN/Creatinine Ratio 29.7 H Glucose 246 H Lactate 0.9 Calcium 7.8 L Total Bilirubin 0.3 AST 20 ALT 24 Alkaline Phosphatase 205 H Total Creatine Kinase < 20 L CK-MB (CK-2) TNP CK-MB (CK-2) Rel Index TNP Troponin I < 0.012 Total Protein 5.6 L Albumin 2.2 L Globulin 3.4 Albumin/Globulin Ratio 0.6 L Lipase 17 L Procalcitonin Urine Color Urine Appearance Urine pH Ur Specific [place] Urine Protein Urine Glucose (UA) Urine Ketones Urine Occult Blood Urine Nitrate Urine Bilirubin Urine Urobilinogen Ur Leukocyte Esterase Urine RBC Urine WBC Ur Squamous Epith Cells Calcium Oxalate Crystal Urine Bacteria Ur Culture Indicated? U Opiates 300ng/mL cut Ur Oxycodone Screen Urine Methadone Screen Ur Barbiturates Screen U Tricyclic Antidepress Ur Phencyclidine Scrn Ur Amphetamines Screen U Methamphetamines Scrn Ur MDMA Scrn (Ecstasy) U Benzodiazepines Scrn Urine Cocaine Screen U Marijuana (THC) Screen SARS-CoV-2 (PCR) 06/16/21 06/16/21 06/16/21 13:36 14:55 14:55 WBC RBC Hgb Hct MCV MCH MCHC RDW Plt Count Neut % (Auto) Lymph % (Auto) Clare % (Auto) Eos % (Auto) Baso % (Auto) Neut # (Auto) Lymph # (Auto) Clare # (Auto) Eos # (Auto) Baso # (Auto) VBG pH 7.25 L VBG pCO2 29.8 L VBG pO2 30 L VBG HCO3 13 L VBG Total CO2 14 L VBG O2 Saturation 50 L VBG Base Excess -14.0 L Sodium 133 L Potassium 4.4 Chloride 117 H Carbon Dioxide 12 L BUN 25 H Creatinine 0.76 Estimated GFR > 60.0 BUN/Creatinine Ratio 32.9 H Glucose 217 H Lactate Calcium 7.0 L Total Bilirubin 0.3 AST 24 ALT 19 Alkaline Phosphatase 139 H Total Creatine Kinase CK-MB (CK-2) CK-MB (CK-2) Rel Index Troponin I Total Protein 4.7 L Albumin 1.8 L Globulin 2.9 Albumin/Globulin Ratio 0.6 L Lipase Procalcitonin 0.39 Urine Color Urine Appearance Urine pH Ur Specific [place] Urine Protein Urine Glucose (UA) Urine Ketones Urine Occult Blood Urine Nitrate Urine Bilirubin Urine Urobilinogen Ur Leukocyte Esterase Urine RBC Urine WBC Ur Squamous Epith Cells Calcium Oxalate Crystal Urine Bacteria Ur Culture Indicated? U Opiates 300ng/mL cut Ur Oxycodone Screen Urine Methadone Screen Ur Barbiturates Screen U Tricyclic Antidepress Ur Phencyclidine Scrn Ur Amphetamines Screen U Methamphetamines Scrn Ur MDMA Scrn (Ecstasy) U Benzodiazepines Scrn Urine Cocaine Screen U Marijuana (THC) Screen SARS-CoV-2 (PCR) 06/16/21 06/16/21 06/16/21 16:15 19:32 19:32 WBC RBC Hgb Hct MCV MCH MCHC RDW Plt Count Neut % (Auto) Lymph % (Auto) Clare % (Auto) Eos % (Auto) Baso % (Auto) Neut # (Auto) Lymph # (Auto) Clare # (Auto) Eos # (Auto) Baso # (Auto) VBG pH VBG pCO2 VBG pO2 VBG HCO3 VBG Total CO2 VBG O2 Saturation VBG Base Excess Sodium Potassium Chloride Carbon Dioxide BUN Creatinine Estimated GFR BUN/Creatinine Ratio Glucose Lactate Calcium Total Bilirubin AST ALT Alkaline Phosphatase Total Creatine Kinase CK-MB (CK-2) CK-MB (CK-2) Rel Index Troponin I Total Protein Albumin Globulin Albumin/Globulin Ratio Lipase Procalcitonin Urine Color Yellow Urine Appearance Cloudy Urine pH 7.0 Ur Specific [place] 1.010 Urine Protein 1+ H Urine Glucose (UA) Trace H Urine Ketones Trace H Urine Occult Blood 1+ H Urine Nitrate Positive H Urine Bilirubin Negative Urine Urobilinogen 0.2 Ur Leukocyte Esterase 3+ H Urine RBC 0-1/hpf Urine WBC 10-30/hpf H Ur Squamous Epith Cells 0-1 /hpf Calcium Oxalate Crystal Few H Urine Bacteria Many (>30) H Ur Culture Indicated? Specimen cultured U Opiates 300ng/mL cut Negative Ur Oxycodone Screen Negative Urine Methadone Screen Negative Ur Barbiturates Screen Negative U Tricyclic Antidepress Positive H Ur Phencyclidine Scrn Negative Ur Amphetamines Screen Negative U Methamphetamines Scrn Negative Ur MDMA Scrn (Ecstasy) Negative U Benzodiazepines Scrn Negative Urine Cocaine Screen Negative U Marijuana (THC) Screen Positive H SARS-CoV-2 (PCR) Negative Assessment & Plan Assessment & Plan narrative: Melvi Gibbs is admitted as an inpatient for a urinary tract infection with a suspected renal pyelonephrosis. 1. Suspected pyelonephritis with urinary tract infection and, acute, present on admission * Currently patient is not septic * Urine culture approximately 1 month ago indicated MRSA resistant to Cipro, levofloxacin, moxifloxacin, oxacillin, and Bactrim * Review recent admission to [facility] indicated urine was also resistant to vancomycin * I have started her on vancomycin however will need to obtain a new culture and sensitivity to determine appropriate antibiotic coverage * It may be worthwhile to consult with Infectious Disease at either [facility] or [place] in the morning to determine appropriate coverage * I have ordered a renal ultrasound * Differential could also be colonization due to ileostomy bag 2. Presence of ileostomy bag * Ostomy nurse consult requested 3. Diabetes type 2, chronic * Medium dose correctional scale insulin * ACHS glucose checks, carb controlled diet * Home dose is NPH 15 units b.i.d. 4. History of hypertension, chronic * Continue home dose of losartan 50 mg p.o. daily and she is currently normotensive 5. Anxiety and depression, severe, present on admission * Continue home dose of quetiapine 300 mg at bedtime and lorazepam 0.5 mg which I have written for as needed * I have requested psychiatric consult for her, actually advise a discussion with the patient prior to having Dr. Mathews seeing her and then notifying Dr. Mathews 6. Chronic pains/neuropathic pain, chronic * Continue home dose of gabapentin and ropinirole VTE Prophylaxis: Wells risk score 3 Enoxaparin 40 mg subQ once daily Bilateral SCDs Patient is admitted to the inpatient service due to the severity of disease, risks of further disease progression and this stay is expected to exceed 2 midnights. FEN: IV fluids: She is continued on normal saline at 175 mL/hour diet: Carb controlled diet, labs: CBC, C/BMP, liver enzymes, Mag Consultants Dr. Mathews, care and involvement in the patient?s care is appreciated. Dispo: probable d/c to home Code status: DNR/DNI as discussed with the patient who identifies spouse, Dwayne as her surrogate and POA. [X] I have utilized all available immediate resources to obtain, update, or review of the patient's current medications COVID-19 COVID-19 status: Negative Result date/Date tested (Pos, Neg/Pending): 06/16/21 Scores Wells' Criteria for PE Clinical signs and symptoms of DVT: No PE is #1 Dx or equally likely: No Heart rate > 100: No Immobilization at least 3 days or surg in previous 4 weeks: Yes History of PE or DVT: Yes Hemoptysis: No Malignancy w/Treatment within 6 months or palliative: No Wells' PE Score total: 3.0 Quality VTE Deep Vein Thrombosis/Pulmonary Embolism Present on Admission: No MIPS - Admit I confirm the patient?s Advance Care Plan is present, Code status is documented, Surrogate decision maker is in patient?s record [If Yes, STOP here]: No MIPS - DC The patient has current or prior documentation of left ventricular ejection fraction (LVEF) less than 40%, or moderate or severely depressed left ventricular systolic function.: No
[2021-06-16] MEDS: VANCOMYCIN 1,000 MG/200 ML PIGGYBACK 200 MG IV (21:59)
[2021-06-16] MEDS: SODIUM CHLORIDE 0.9% FLUSH 10 ML IV (22:02)
[2021-06-16] MEDS: INSULIN LISPRO 100 UNIT/ML 3ML VIAL SUBCUT (22:02)
[2021-06-16] MEDS: MELATONIN 3 MG TABLET 9 MG PO (22:51)
[2021-06-16] MEDS: QUETIAPINE 100 MG TABLET 300 MG PO (22:51)
[2021-06-16] MEDS: ROPINIROLE 0.25 MG TABLET 0.75 MG PO (22:51)
--- NOTE | 2021-06-16 23:34 | PC.NURSE ---
Addendum entered by Valeria Hurtado R.N. 06/17/21 02:10: Noted to have had MRSA in urine back in April so will place on contact isolation until urine culture resulted. Original Note: Patient is alert and oriented. Emotionally labile/tearful and soft spoken. Depressed; asks why staff hate her. Breath sounds CTA with RA sat of 93%. HRR and telemetry was SR. BP had been low at 82/51 and hs Minipres was held by Clinton CERVANTES, and Jhon GRUBER, was informed. Denied nausea but states she hasn't had much appetite over past several days; has cachectic appearance. Stated she has been holding her stool in because she has not been able to get up by herself. Assisted to BSC with walker and 1 assist and had large, soft BM. Chronic urostomy with clear, pale yellow urine noted. Is able to move herself in bed but has generalized weakness. Wearing bilateral calf SCD's. States headache improved after receiving Tylenol earlier. CBG was 277 and was given SS insulin. Fall risk score is high and bed alarm is activated. Patient found teary eyed again and states she wants to sleep but has been unable to fall asleep. Medicated with Ativan.
[2021-06-16] MEDS: LORazepam 0.5 MG TABLET PO (23:50)
[2021-06-16] MEDS: SODIUM CHLORIDE 0.9% 1,000 ML 175 ML IV (23:51)
[2021-06-17] VITALS (15 sets, daily range): BP systolic 82–97; BP diastolic 49–66; PULSE 61–117; RESP 16–20; TEMP 35.9–37.3; O2SAT 92–98
[2021-06-17] MEDS: ACETAMINOPHEN 325 MG TABLET 650 MG PO (03:13)
[2021-06-17] MEDS: DEXTROSE 50 % IN WATER 25 GM/50 ML SYRINGE IV (03:41)
[2021-06-17] MEDS: SODIUM CHLORIDE 0.9% 1,000 ML 175 ML IV (05:29)
[2021-06-17] MEDS: SODIUM CHLORIDE 0.9% FLUSH 10 ML IV ×3 (05:30→21:06)
[2021-06-17] MEDS: VANCOMYCIN 1,000 MG/200 ML PIGGYBACK 200 MG IV ×2 (10:00→22:04)
[2021-06-17] MEDS: GABAPENTIN 300 MG CAPSULE 900 MG PO ×2 (10:00→21:06)
[2021-06-17] MEDS: ENOXAPARIN 40 MG/0.4 ML SYRINGE SUBCUT (10:01)
[2021-06-17] MEDS: DOCUSATE 100 MG CAPSULE PO (10:01)
[2021-06-17] MEDS: NICOTINE 14 PATCH 14 MG TOP (10:01)
[2021-06-17 10:36] LABS: Add Manual Diff / Slide Review NO; Basophils Absolute Auto 0 /uL (0-100); Basophils Percent Auto 0.2 % (0-2); Eosinophils Absolute Auto 0 /uL (0-450); Eosinophils Percent Auto 0.1 % (2-4); Hematocrit 27.5 % (36-46); Hemoglobin 9.1 g/dL (12.0-16.0); Lymphocytes Absolute Auto 1300 /uL (1100-4500); Lymphocytes Percent Auto 6.5 % (25-40); Mean Corpuscular HGB Conc 33.3 % (30-36); Mean Corpuscular Hemoglobin 36.1 PG (26-34); Mean Corpuscular Volume 108.4 fL (80-100); Monocytes Absolute Auto 500 /uL (0-900); Monocytes Percent Auto 2.5 % (3-14); Neutrophils Absolute Auto 18200 /uL (1500-7000); Neutrophils Percent Auto 90.7 % (50-75); Platelet Count 366 X10^3/uL (150-400); Red Blood Cell Count 2.53 X10^6/uL (4.0-5.2); Red Cell Distribution Width 14.2 % (11.6-14.8); White Blood Cell Count 20.1 X10^3/uL (4.5-11.0)
[2021-06-17 10:48] LABS: Alanine Aminotransferase 35 IU/L (<35); Albumin Globulin Ratio 0.6 (1.0-2.8); Alkaline Phosphatase 183 U/L (38-126); Aspartate Aminotransferase 61 IU/L (14-36); BUN Creatinine Ratio 26.8 (6-22); Bilirubin Total 0.3 mg/dL (0.2-1.3); Blood Urea Nitrogen 15 mg/dL (7-17); Calcium 7.4 mg/dL (8.4-10.2); Carbon Dioxide 11 mmol/L (22-32); Chloride 118 mmol/L (98-107); Estimated Glomerular Filt Rate > 60.0 mL/min (>60); Globulin 3.2 g/dL (1.7-4.1); Glucose 175 mg/dL (70-100); HEMOLYSIS 20 (0-50); Magnesium 1.4 mg/dL (1.6-2.3); Potassium 4.1 mmol/L (3.4-5.1); Sodium 135 mmol/L (137-145); Total Protein 5.2 g/dL (6.3-8.2)
[2021-06-17] MEDS: LACTATED RINGERS 1,000 ML 150 ML IV ×2 (12:09→18:18)
[2021-06-17] MEDS: INSULIN LISPRO 100 UNIT/ML 3ML VIAL SUBCUT (17:48)
[2021-06-17] MEDS: MAGNESIUM CHLORIDE 64 MG TABLET 128 MG PO (17:49)
[2021-06-17 17:52] LABS: Ammonia (NH3) 57 umol/L (9-30)
--- NOTE | 2021-06-17 18:42 | PC.NURSE ---
Pt hypotensive with elevated HR ranging from low 100s up to 117 today, tachycardic on tele, Dr. Rice aware, fluids changed to LR 150mL/hr. WBC increased this am, pt labile, distrustful and tearful most of the day, even during husbands visit. Lack of appetite and c/o being tired, allowed to sleep this afternoon with improved mood this evening. Dressing to Portocath changed, blood return noted. Midline assessed by IV nurse, dressing changed and blood return noted. Will continue to monitor.
--- NOTE | 2021-06-17 18:51 | P.PN_ITS ---
Subjective Subjective Date Patient Seen: 06/17/21 Time Patient Seen: 16:00 Interval history: Patient was not participatory with me in subjective exam today, denied pain. Would not elaborate on why she wasn't eating because she stated she didn't trust me. When asked what I could do for her she did not respond. Exam Vital Signs (past 8 hours): - 06/17/21 11:03 06/17/21 12:00 06/17/21 12:04 Temperature 98 F Pulse Rate 62 Respiratory Rate 16 Blood Pressure 82/49 L Pulse Oximetry 94 95 96 06/17/21 12:45 06/17/21 15:01 06/17/21 16:00 Temperature Pulse Rate 117 H 108 H Respiratory Rate 16 Blood Pressure 95/66 Pulse Oximetry 95 97 95 06/17/21 17:00 Temperature 99.2 F Pulse Rate 102 H Respiratory Rate 18 Blood Pressure 88/60 L Pulse Oximetry 98 Oxygen Delivery Method Room Air Oxygen Flow Rate 0 Narrative Exam Narrative: Gen: Alert, oriented, cachectic and chronically ill appearing 55 y.o. ? female, labile HEENT: normocephalic, atraumatic, conjunctiva clear, sclera non-icteric, oral mucosa pink and moist, edentulous Neck: refused, covered Resp: refused CV: refused Abd: refused Neuro: no focal deficits, refused exam. Extremities: moves all 4 extremities Psyche: Depressed, flat Objective Labs Result Diagrams: 06/17/21 10:28 06/17/21 10:28 Labs: Laboratory Results - last 24 hr 06/16/21 06/16/21 06/16/21 14:55 19:32 19:32 WBC RBC Hgb Hct MCV MCH MCHC RDW Plt Count Neut % (Auto) Lymph % (Auto) [place] % (Auto) Eos % (Auto) Baso % (Auto) Neut # (Auto) Lymph # (Auto) [place] # (Auto) Eos # (Auto) Baso # (Auto) Sodium Potassium Chloride Carbon Dioxide BUN Creatinine Estimated GFR BUN/Creatinine Ratio Glucose Calcium Magnesium Total Bilirubin AST ALT Alkaline Phosphatase Ammonia Total Protein Albumin Globulin Albumin/Globulin Ratio Procalcitonin 0.39 Urine Color Yellow Urine Appearance Cloudy Urine pH 7.0 Ur Specific [place] 1.010 Urine Protein 1+ H Urine Glucose (UA) Trace H Urine Ketones Trace H Urine Occult Blood 1+ H Urine Nitrate Positive H Urine Bilirubin Negative Urine Urobilinogen 0.2 Ur Leukocyte Esterase 3+ H Urine RBC 0-1/hpf Urine WBC 10-30/hpf H Ur Squamous Epith Cells 0-1 /hpf Calcium Oxalate Crystal Few H Urine Bacteria Many (>30) H Ur Culture Indicated? Specimen cultured U Opiates 300ng/mL cut Negative Ur Oxycodone Screen Negative Urine Methadone Screen Negative Ur Barbiturates Screen Negative U Tricyclic Antidepress Positive H Ur Phencyclidine Scrn Negative Ur Amphetamines Screen Negative U Methamphetamines Scrn Negative Ur MDMA Scrn (Ecstasy) Negative U Benzodiazepines Scrn Negative Urine Cocaine Screen Negative U Marijuana (THC) Screen Positive H 06/17/21 06/17/21 06/17/21 10:28 10:28 12:20 WBC 20.1 H RBC 2.53 L Hgb 9.1 L Hct 27.5 L MCV 108.4 H MCH 36.1 H MCHC 33.3 RDW 14.2 Plt Count 366 Neut % (Auto) 90.7 H Lymph % (Auto) 6.5 L [place] % (Auto) 2.5 L Eos % (Auto) 0.1 L Baso % (Auto) 0.2 Neut # (Auto) 49056 H Lymph # (Auto) 1300 [place] # (Auto) 500 Eos # (Auto) 0 Baso # (Auto) 0 Sodium 135 L Potassium 4.1 Chloride 118 H Carbon Dioxide 11 L BUN 15 Creatinine 0.56 Estimated GFR > 60.0 BUN/Creatinine Ratio 26.8 H Glucose 175 H Calcium 7.4 L Magnesium 1.4 L Total Bilirubin 0.3 AST 61 H ALT 35 H Alkaline Phosphatase 183 H Ammonia 57 H Total Protein 5.2 L Albumin 2.0 L Globulin 3.2 Albumin/Globulin Ratio 0.6 L Procalcitonin Urine Color Urine Appearance Urine pH Ur Specific [place] Urine Protein Urine Glucose (UA) Urine Ketones Urine Occult Blood Urine Nitrate Urine Bilirubin Urine Urobilinogen Ur Leukocyte Esterase Urine RBC Urine WBC Ur Squamous Epith Cells Calcium Oxalate Crystal Urine Bacteria Ur Culture Indicated? U Opiates 300ng/mL cut Ur Oxycodone Screen Urine Methadone Screen Ur Barbiturates Screen U Tricyclic Antidepress Ur Phencyclidine Scrn Ur Amphetamines Screen U Methamphetamines Scrn Ur MDMA Scrn (Ecstasy) U Benzodiazepines Scrn Urine Cocaine Screen U Marijuana (THC) Screen [facility] Medical History (Updated 06/16/21 @ 22:18 by YASMANI Velazquez) Anxiety Closed fracture of left humerus Endometriosis Fibromyalgia Heart palpitations History of asthma History of chronic hypertension History of COPD History of depression History of gastrointestinal ulcer History of kidney stones History of migraine History of panic attacks History of type 2 diabetes mellitus Hyperlipidemia Ileostomy in place Interstitial cystitis Tobacco dependence UTI (urinary tract infection) Surgical History History of urostomy S/P appendectomy Status post hysterectomy Status post left rotator cuff repair Family History Mother Diabetes mellitus Lupus Father Alcoholism Tobacco dependence Social History household members: spouse Smoking Status: Current every day smoker alcohol intake: current Assessment & Plan Assessment & Plan narrative: Melvi Gibbs is admitted as an inpatient for a urinary tract infection and malnutrition, probable encephalopathy, and NAGMA. 1. severe malnutrition and BMI of 16. - evidenced by patient's underweight BMI at 16, has muscle wasting a cachexia on exam. - dietary consultation placed. patient refused interventions previous admissions. 2. acute on chronic urinary tract infections in setting of urostomy - history of MRSA urinary infection - continue vancomycin pending repeat urine culture 3. severe non-anion gap metabolic acidosis - no significant GI losses. renal function is intact - may be due to urostomy with UTI. - does appear to have a history of this per [facility] records - consider nephrology consultation. 4. toxic / metabolic encephalopathy - possibly in setting of acidemia, or a complication of metabolic disutrbances due to her urostomy tube. - consider severe depression, possible psych consultation with suspicion for self neglect. However acute etiologies need to be managed. - ammonia level is elevated, can be seen in urostomy with UTI. Trial lactulose. 5. Diabetes type 2, chronic - continue home insulin and sliding scale . 6. . History of hypertension, chronic - continue home medications. 7. Anxiety and depression, severe, present on admission - continue home medications, consider psych as noted above. 8. Chronic pains/neuropathic pain, chronic - continue home medications Code: DNR Dispo: remains inpatient. Dispo unclear. Time Spent With Patient Critical Care time: I spent a total of [] minutes of critical care time on this patient's care today; this time is exclusive of procedural time. Quality VTE Deep Vein Thrombosis/Pulmonary Embolism Present on Admission: No
[2021-06-17] MEDS: ROPINIROLE 0.25 MG TABLET 0.75 MG PO (21:05)
[2021-06-17] MEDS: FAMOTIDINE 20 MG TABLET PO (21:06)
[2021-06-17] MEDS: QUETIAPINE 100 MG TABLET 300 MG PO (21:06)
[2021-06-17] MEDS: MELATONIN 3 MG TABLET 9 MG PO (21:07)
[2021-06-17] MEDS: LACTULOSE 20 GM/30 ML SOLUTION PO (21:07)
[2021-06-18] VITALS (13 sets, daily range): BP systolic 85–111; BP diastolic 60–72; PULSE 61–118; RESP 16–18; TEMP 36.4–37.2; O2SAT 92–113
--- NOTE | 2021-06-18 00:51 | PC.NURSE ---
Patient is alert and oriented but emotionally labile. Upon entering room patient asking why staff is afraid to come into room and then began crying and stated she didn't want anyone in room because she doesn't want staff to catch what she has. Provided reassurance. Breath sounds CTA but has shallow respirations; RA sat 94%. HRR. BP continues to run low at 95/61 earlier and now 85/62; Minipres was held. Telemetry reading was ST and now SR. Denied nausea. BT present and abdomen is soft; up to BSC and had BM earlier. Urostomy intact with cloudy, yellow urine noted in bag. Is able to turn herself in bed. Up to BSC with walker and 1 assist. Refused to wear SCD's so reminded to ankle wave. Denied pain. Fall risk score is high and bed alarm is activated. Remains on contact isolation while awaiting urine culture results; was MRSA + in urine in April 2021.
[2021-06-18] MEDS: LACTATED RINGERS 1,000 ML 150 ML IV ×4 (01:56→23:02)
[2021-06-18] MEDS: SODIUM CHLORIDE 0.9% FLUSH 10 ML IV ×3 (05:43→21:22)
[2021-06-18 06:07] LABS: Add Manual Diff / Slide Review NO; Basophils Absolute Auto 100 /uL (0-100); Basophils Percent Auto 0.4 % (0-2); Eosinophils Absolute Auto 0 /uL (0-450); Eosinophils Percent Auto 0.1 % (2-4); Hematocrit 24.8 % (36-46); Hemoglobin 8.3 g/dL (12.0-16.0); Lymphocytes Absolute Auto 1200 /uL (1100-4500); Lymphocytes Percent Auto 5.9 % (25-40); Mean Corpuscular HGB Conc 33.5 % (30-36); Mean Corpuscular Hemoglobin 35.5 PG (26-34); Mean Corpuscular Volume 106.2 fL (80-100); Monocytes Absolute Auto 400 /uL (0-900); Neutrophils Absolute Auto 18800 /uL (1500-7000); Neutrophils Percent Auto 91.6 % (50-75); Platelet Count 337 X10^3/uL (150-400); Red Blood Cell Count 2.34 X10^6/uL (4.0-5.2); Red Cell Distribution Width 14.2 % (11.6-14.8); White Blood Cell Count 20.5 X10^3/uL (4.5-11.0)
[2021-06-18 06:11] LABS: Alanine Aminotransferase 38 IU/L (<35); Albumin 1.8 g/dL (3.5-5.0); Albumin Globulin Ratio 0.6 (1.0-2.8); Alkaline Phosphatase 179 U/L (38-126); Aspartate Aminotransferase 59 IU/L (14-36); Bilirubin Total 0.3 mg/dL (0.2-1.3); Blood Urea Nitrogen 11 mg/dL (7-17); Calcium 7.9 mg/dL (8.4-10.2); Carbon Dioxide 11 mmol/L (22-32); Chloride 121 mmol/L (98-107); Estimated Glomerular Filt Rate > 60.0 mL/min (>60); Glucose 168 mg/dL (70-100); HEMOLYSIS < 15 (0-50); Magnesium 1.3 mg/dL (1.6-2.3); Potassium 3.7 mmol/L (3.4-5.1); Sodium 138 mmol/L (137-145); Total Protein 4.8 g/dL (6.3-8.2)
[2021-06-18 06:27] LABS: Hemoglobin A1C% w Est Avg Glu 6.1 % (4.0-6.0)
[2021-06-18] MEDS: INSULIN LISPRO 100 UNIT/ML 3ML VIAL SUBCUT ×2 (08:58→12:36)
[2021-06-18] MEDS: DOCUSATE 100 MG CAPSULE PO (09:23)
[2021-06-18] MEDS: NICOTINE 14 PATCH 14 MG TOP (09:23)
[2021-06-18] MEDS: GABAPENTIN 300 MG CAPSULE 900 MG PO ×2 (09:23→21:21)
[2021-06-18] MEDS: LACTULOSE 20 GM/30 ML SOLUTION PO ×2 (09:23→21:19)
[2021-06-18] MEDS: ENOXAPARIN 40 MG/0.4 ML SYRINGE SUBCUT (09:23)
[2021-06-18] MEDS: FAMOTIDINE 20 MG TABLET PO ×2 (09:24→21:21)
[2021-06-18 10:25] LABS: Vancomycin Trough 15.3 ug/mL (10-20)
[2021-06-18] MEDS: cefTRIAXone 1,000 MG in SODIUM CHLORIDE 0.9% 100 ML 200 ML IV (11:08)
--- NOTE | 2021-06-18 13:43 | DIET.CONS ---
Dietary Consultation Note Admission Date: 06/16/2021 15:55 Assessment: 55y F admitted for UTI and malnutrition. Pt is back down to lowest hx body weight from 2020 after having 10kg weight gain in 202 with BMI improvement to 19. Pt at 46kg c BMI 16.4. RD visited pt at bedside, lunch plate of mashed potatoes, carrots, and turkey untouched. 4oz jello cup consumed 100%. RD asked pt to share meals she enjoys to better meet her nutrition needs since [facility] unable to come take order due to isolation precautions. Pt states she does not like tea or coffee, does not eat breakfast. Pt unable to share what she does eat. RD gently pitched different ideas finding out pt enjoys cottage cheese, yogurt, and fruit. Pt would like something like juice to drink with meals. Pt stated, I cant stop thinking about what my mother would always say but unable to give further details besides what her mom would say was sometimes good and sometimes bad. Pt unable to share c hospitalist why she isn't eating as she stated she didn't trust him. RD has concerns for clinical eating disorder r/t chronic low body weight, skipping breakfast daily, and reported mental health concerns with tearful presentation as well as low A1c despite frequent hyperglycemia. Pts BG swings widely between 47-388 this hospitalization with A1c 6.1. Provided pt raspberry arabic yogurt c spoon before exiting room. Ht: 167.64 cm Wt: 46 kg BMI: 16.1 UBW: 55kg Last BM: 06/17/21 (06/17/21 20:46) MNA: 6 Johnnie Score: 16 Diet: 06/16/21 Dinner Carbohydrate Consistent Diet Diet Modifications: Carbohydrate level: Large (4 CHO) Nutrition Percent Meal Consumed 5% 06/17/21 18:00 Percent Meal Consumed 10% 06/16/21 18:00 Labs: RBC 2.34 X10^6/uL (4.0-5.2) L 06/18/21 05:43 Hgb 8.3 g/dL (12.0-16.0) L 06/18/21 05:43 Hct 24.8 % (36-46) L 06/18/21 05:43 Creatinine 0.50 mg/dL (0.52-1.04) L 06/18/21 05:43 Hemoglobin A1c 6.1 % (4.0-6.0) H 06/18/21 05:43 Lactate 0.9 mmol/L (0.7-2.1) 06/16/21 12:15 Nutrition Diagnosis: Severe Chronic Malnutrition r/t poor POs of unknown etiology aeb BMI 16.4, pt -10% weight loss in 3mo, pt back at lowest body weight on record (2019), severe muscle and fat wasting system wide. Interventions: 1. Kitchen to send alternating cottage cheese c fruit and watermelon water vs. yogurt c fruit and watermelon water at meals to spur POs. 2. [facility] psychiatry consultation to screen for active eating disorder, restrictive type. EER: 1380kcal (30kcal/kg), 60g PRO (1.3g/kg) Monitoring/Evaluations: following POs Electronically Signed by: Kristy Chauhan 06/18/21 13:43 Clinical Dietitian [address] [address]
--- NOTE | 2021-06-18 16:31 | PM.PN.1 ---
Subjective Subjective Date Patient Seen: 06/18/21 Time Patient Seen: 16:31 Interval history: Patient feels slightly improved today. Remains nauseous. She has not had a bowel movement today. Normal appearing urine coming from urostomy. When asked about pain she endorses psychologic and physical pain, but did not want to elaborate only stating that I could not take away her mother. She was more open to discussion today and accepting of help. Exam Vital Signs (past 8 hours): - 06/18/21 08:32 06/18/21 08:53 06/18/21 12:00 Temperature 97.9 F Pulse Rate 118 H Respiratory Rate 16 Blood Pressure 87/60 L Pulse Oximetry 96 96 97 06/18/21 13:00 06/18/21 16:08 Temperature 97.6 F Pulse Rate 97 H Respiratory Rate 16 Blood Pressure 107/70 Pulse Oximetry 113 H 95 Oxygen Delivery Method Room Air Oxygen Flow Rate 0 Narrative Exam Narrative: Gen: Alert, oriented, cachectic and chronically ill appearing 55 y.o. ? female, in no acute distress. HEENT: normocephalic, atraumatic, conjunctiva clear, sclera non-icteric, oral mucosa pink and moist, edentulous Resp: CTA b/l with poor respiratory effort. CV: RRR with no m/r/g. Abd: S NT ND, urostomy in place with clear yellow urine.. Extremities: no edema or joint effusions. Very thin and little muscle mass. Psyche: Depressed, flat. Occasionally tearful. Objective Labs Result Diagrams: 06/18/21 05:43 06/18/21 05:43 Labs: Laboratory Results - last 24 hr 06/17/21 06/18/21 06/18/21 12:20 05:43 05:43 WBC 20.5 H RBC 2.34 L Hgb 8.3 L Hct 24.8 L MCV 106.2 H MCH 35.5 H MCHC 33.5 RDW 14.2 Plt Count 337 Neut % (Auto) 91.6 H Lymph % (Auto) 5.9 L [place] % (Auto) 2.0 L Eos % (Auto) 0.1 L Baso % (Auto) 0.4 Neut # (Auto) 27143 H Lymph # (Auto) 1200 [place] # (Auto) 400 Eos # (Auto) 0 Baso # (Auto) 100 Sodium 138 Potassium 3.7 Chloride 121 H Carbon Dioxide 11 L BUN 11 Creatinine 0.50 L Estimated GFR > 60.0 BUN/Creatinine Ratio 22.0 Glucose 168 H Hemoglobin A1c Calcium 7.9 L Magnesium 1.3 L Total Bilirubin 0.3 AST 59 H ALT 38 H Alkaline Phosphatase 179 H Ammonia 57 H Total Protein 4.8 L Albumin 1.8 L Globulin 3.0 Albumin/Globulin Ratio 0.6 L Vancomycin Trough 06/18/21 06/18/21 05:43 09:40 WBC RBC Hgb Hct MCV MCH MCHC RDW Plt Count Neut % (Auto) Lymph % (Auto) [place] % (Auto) Eos % (Auto) Baso % (Auto) Neut # (Auto) Lymph # (Auto) [place] # (Auto) Eos # (Auto) Baso # (Auto) Sodium Potassium Chloride Carbon Dioxide BUN Creatinine Estimated GFR BUN/Creatinine Ratio Glucose Hemoglobin A1c 6.1 H Calcium Magnesium Total Bilirubin AST ALT Alkaline Phosphatase Ammonia Total Protein Albumin Globulin Albumin/Globulin Ratio Vancomycin Trough 15.3 PFSH Medical History (Updated 06/16/21 @ 22:18 by YASMANI Velazquez) Anxiety Closed fracture of left humerus Endometriosis Fibromyalgia Heart palpitations History of asthma History of chronic hypertension History of COPD History of depression History of gastrointestinal ulcer History of kidney stones History of migraine History of panic attacks History of type 2 diabetes mellitus Hyperlipidemia Ileostomy in place Interstitial cystitis Tobacco dependence UTI (urinary tract infection) Surgical History History of urostomy S/P appendectomy Status post hysterectomy Status post left rotator cuff repair Family History Mother Diabetes mellitus Lupus Father Alcoholism Tobacco dependence Social History household members: spouse Smoking Status: Current every day smoker alcohol intake: current Assessment & Plan Assessment & Plan narrative: Melvi Gibbs is admitted as an inpatient for a urinary tract infection and malnutrition, probable encephalopathy, and NAGMA. 1. severe malnutrition and BMI of 16. ?- evidenced by patient's underweight BMI at 16, has muscle wasting a cachexia on exam. ?- dietary consultation placed. patient refused interventions previous admissions. 2. acute on chronic urinary tract infections in setting of urostomy ?- history of MRSA urinary infection ?- discontinued vanco and changed to ceftriaxone as there is GNB in her urine culture now. No history of ESBL organisms. - urinary tract infections are due to her urostomy. - no evidence of acute pyelonephritis on ultrasound. Trace perinephric fluid on R but appears chronic based on prior imaging. 3. severe non-anion gap metabolic acidosis ?- no significant GI losses. renal function is intact ?- may be due to urostomy with UTI. ?- does appear to have a history of this per [facility] records ?- consider nephrology consultation if no improvement with UTI treatments for further recommendations. 4. toxic / metabolic encephalopathy ?- possibly in setting of acidemia, or a complication of metabolic disutrbances due to her urostomy tube. ?- consider severe depression, possible psych consultation with suspicion for self neglect. However acute metabolic etiologies need to be managed first. ?- ammonia level is elevated, can be seen in urostomy with UTI. Trial lactulose. No bowel movements today, if none tomorrow increase dosing. 5. Diabetes type 2, chronic ?- continue home insulin and sliding scale . 6. . History of hypertension, chronic ?- continue home medications. 7. Anxiety and depression, severe, present on admission ?- continue home medications, consider psych as noted above. 8. Chronic pains/neuropathic pain, chronic ?- continue home medications Code: DNR Dispo: remains inpatient. Dispo unclear. Time Spent With Patient Critical Care time: I spent a total of [] minutes of critical care time on this patient's care today; this time is exclusive of procedural time. Quality VTE Deep Vein Thrombosis/Pulmonary Embolism Present on Admission: No
--- NOTE | 2021-06-18 18:04 | PC.NURSE ---
Pt's urostomy noted to be leaking today, reinforced with tape. was called and asked to bring in her urostomy supplies next time he comes so it can be changed. Pt c/o headache this evening, refuses pain meds, refusing to eat, refusing to take magnesium replacement. Will continue to monitor and attempt to administer pain meds as needed.
[2021-06-18] MEDS: LORazepam 0.5 MG TABLET PO (20:01)
[2021-06-18] MEDS: MAGNESIUM CHLORIDE 64 MG TABLET 128 MG PO (20:01)
[2021-06-18] MEDS: MELATONIN 3 MG TABLET 9 MG PO (21:20)
[2021-06-18] MEDS: QUETIAPINE 100 MG TABLET 300 MG PO (21:22)
[2021-06-19] VITALS (7 sets, daily range): BP systolic 92–99; BP diastolic 61–68; PULSE 106–118; RESP 14–20; TEMP 36.6–37.2; O2SAT 90–96
[2021-06-19] MEDS: LACTATED RINGERS 1,000 ML 150 ML IV (05:44)
[2021-06-19] MEDS: SODIUM CHLORIDE 0.9% FLUSH 10 ML IV ×3 (06:50→21:14)
[2021-06-19] MEDS: INSULIN LISPRO 100 UNIT/ML 3ML VIAL SUBCUT ×2 (08:17→12:53)
[2021-06-19 09:23] LABS: Hematocrit 22.1 % (36-46); Hemoglobin 7.4 g/dL (12.0-16.0); Mean Corpuscular HGB Conc 33.3 % (30-36); Mean Corpuscular Hemoglobin 35.9 PG (26-34); Mean Corpuscular Volume 107.9 fL (80-100); Platelet Count 311 X10^3/uL (150-400); Red Blood Cell Count 2.05 X10^6/uL (4.0-5.2); Red Cell Distribution Width 14.7 % (11.6-14.8); White Blood Cell Count 22.3 X10^3/uL (4.5-11.0)
[2021-06-19 09:25] LABS: Add Manual Diff / Slide Review YES
[2021-06-19 09:36] LABS: Alanine Aminotransferase 31 IU/L (<35); Albumin 1.7 g/dL (3.5-5.0); Albumin Globulin Ratio 0.6 (1.0-2.8); Alkaline Phosphatase 177 U/L (38-126); Aspartate Aminotransferase 40 IU/L (14-36); BUN Creatinine Ratio 16.3 (6-22); Bilirubin Total 0.2 mg/dL (0.2-1.3); Blood Urea Nitrogen 7 mg/dL (7-17); Calcium 7.6 mg/dL (8.4-10.2); Carbon Dioxide 12 mmol/L (22-32); Chloride 120 mmol/L (98-107); Estimated Glomerular Filt Rate > 60.0 mL/min (>60); Globulin 2.7 g/dL (1.7-4.1); Glucose 162 mg/dL (70-100); HEMOLYSIS < 15 (0-50); Magnesium 1.5 mg/dL (1.6-2.3); Potassium 3.4 mmol/L (3.4-5.1); Sodium 139 mmol/L (137-145); Total Protein 4.4 g/dL (6.3-8.2)
[2021-06-19 10:14] LABS: Neutrophils Absolute Manual 21631 /uL (3000-5900); Total Cells Counted 100
[2021-06-19 10:22] LABS: Toxic Granulation Present
[2021-06-19 10:24] LABS: Anisocytosis 1+; Macrocytosis 1+
[2021-06-19] MEDS: ENOXAPARIN 40 MG/0.4 ML SYRINGE SUBCUT (10:27)
[2021-06-19] MEDS: LACTULOSE 20 GM/30 ML SOLUTION PO ×2 (10:27→21:13)
[2021-06-19] MEDS: GABAPENTIN 300 MG CAPSULE 900 MG PO ×2 (10:28→21:13)
[2021-06-19] MEDS: DOCUSATE 100 MG CAPSULE PO (10:28)
[2021-06-19] MEDS: FAMOTIDINE 20 MG TABLET PO ×2 (10:28→21:13)
[2021-06-19] MEDS: cefTRIAXone 1,000 MG in SODIUM CHLORIDE 0.9% 100 ML IV (10:56)
[2021-06-19] MEDS: MAGNESIUM CHLORIDE 64 MG TABLET 128 MG PO (12:55)
[2021-06-19] MEDS: POTASSIUM CHLORIDE 20 MEQ TAB 40 MEQ PO (12:56)
--- NOTE | 2021-06-19 13:20 | PC.NURSE ---
O2 sat 83% at 1130; lips cyanotic. O2 placed at 4L/NC with sat 95%. Dr. Rice notified. Lungs CTA at the time. Pt refusing meals. Lunch: only had 2 bites of yogart. PO mag and Kcl given to pt.
--- NOTE | 2021-06-19 14:25 | DI.RAD.S_ITS ---
PROCEDURE: XR CHEST 1V INDICATIONS: Hypoxia TECHNIQUE: One view of the chest was acquired. COMPARISON: [facility], CR, XR CHEST 1V, 05/05/2021, 13:04. FINDINGS: Surgical changes and devices: Right Port-A-Cath is unchanged. Lungs and pleura: Bibasilar pulmonary opacities are present, left greater than right. There is blunting of the costophrenic angles bilaterally. Mediastinum: Mediastinal contours appear normal. Heart size is normal. Bones and chest wall: No suspicious bony lesions. Overlying soft tissues appear unremarkable. IMPRESSION: Bibasilar opacities most suggestive of pneumonia. Mild superimposed effusions are noted, left greater than right. Dictated by: Anisha Solis M.D. on 06/19/2021 at 15:00 Approved by: Anisha Solis M.D. on 06/19/2021 at 15:06
[2021-06-19] MEDS: ALBUTEROL 2.5 MG/3 ML NEB (ADULT) INH (16:48)
--- NOTE | 2021-06-19 17:04 | P.PN_ITS ---
Subjective Subjective Date Patient Seen: 06/19/21 Time Patient Seen: 17:04 Interval history: Patient feels slightly improved today. Denies nausea but states she is never hungry. She states she wants to get better today. Normal appearing urine coming from urostomy. She was briefly hypoxic requiring 4L which improved to 1-2L by the time I saw her. She denies fever, chills, cough, shortness of breath. Exam Vital Signs (past 8 hours): - 06/19/21 12:00 06/19/21 16:48 Temperature 98.9 F Pulse Rate 108 H 106 H Respiratory Rate 16 20 Blood Pressure 95/68 Pulse Oximetry 95 94 Oxygen Delivery Method Nasal Cannula Oxygen Flow Rate 1.5 Narrative Exam Narrative: Gen: Alert, oriented, cachectic and chronically ill appearing 55 y.o. ? female, in no acute distress. HEENT: normocephalic, atraumatic, conjunctiva clear, sclera non-icteric, oral mucosa pink and moist, edentulous Resp: diminished breath sounds at the bases, R > L. Poor inspiratory effort. CV: RRR with no m/r/g. Abd: S NT ND, urostomy in place with clear yellow urine.. Extremities: no edema or joint effusions. Very thin and little muscle mass. Psyche: Depressed, flat. Occasionally tearful. Objective Labs Result Diagrams: 06/19/21 09:10 06/19/21 09:10 Labs: Laboratory Results - last 24 hr 06/19/21 06/19/21 09:10 09:10 WBC 22.3 H RBC 2.05 L Hgb 7.4 L Hct 22.1 L MCV 107.9 H MCH 35.9 H MCHC 33.3 RDW 14.7 Plt Count 311 Neut % (Auto) Not Reportable Lymph % (Auto) Not Reportable [place] % (Auto) Not Reportable Eos % (Auto) Not Reportable Baso % (Auto) Not Reportable Lymph # (Auto) Not Reportable [place] # (Auto) Not Reportable Baso # (Auto) Not Reportable Total Counted 100 Seg Neutrophils % 97.0 H Monocytes % (Manual) 3.0 Neutrophils # (Manual) 04960 H Toxic Granulation Present H RBC Morphology See below Anisocytosis 1+ H Macrocytosis 1+ H Sodium 139 Potassium 3.4 Chloride 120 H Carbon Dioxide 12 L BUN 7 Creatinine 0.43 L Estimated GFR > 60.0 BUN/Creatinine Ratio 16.3 Glucose 162 H Calcium 7.6 L Magnesium 1.5 L Total Bilirubin 0.2 AST 40 H ALT 31 Alkaline Phosphatase 177 H Total Protein 4.4 L Albumin 1.7 L Globulin 2.7 Albumin/Globulin Ratio 0.6 L [facility] Medical History (Updated 06/16/21 @ 22:18 by YASMANI Velazquez) Anxiety Closed fracture of left humerus Endometriosis Fibromyalgia Heart palpitations History of asthma History of chronic hypertension History of COPD History of depression History of gastrointestinal ulcer History of kidney stones History of migraine History of panic attacks History of type 2 diabetes mellitus Hyperlipidemia Ileostomy in place Interstitial cystitis Tobacco dependence UTI (urinary tract infection) Surgical History History of urostomy S/P appendectomy Status post hysterectomy Status post left rotator cuff repair Family History Mother Diabetes mellitus Lupus Father Alcoholism Tobacco dependence Social History household members: spouse Smoking Status: Current every day smoker alcohol intake: current Assessment & Plan Assessment & Plan narrative: Melvi Gibbs is admitted as an inpatient for a urinary tract infection and malnutrition, probable encephalopathy, and NAGMA. 1. severe malnutrition and BMI of 16. ?- evidenced by patient's underweight BMI at 16, has muscle wasting a cachexia on exam. ?- dietary consultation placed. patient refused interventions previous admissions. 2. acute on chronic urinary tract infections in setting of urostomy ?- history of MRSA urinary infection ?- discontinued vanco and changed to ceftriaxone as there is GNB in her urine culture now. No history of ESBL organisms. ?- urinary tract infections are due to her urostomy. ?- no evidence of acute pyelonephritis on ultrasound. Trace perinephric fluid on R but appears chronic based on prior imaging. - WBC continuing to rise. cultures showing E. coli sensitive to cephalosporins. 3. severe non-anion gap metabolic acidosis ?- no significant GI losses. renal function is intact ?- may be due to urostomy with UTI. ?- does appear to have a history of this per [facility] records ?- consider nephrology consultation if no improvement with UTI treatments for further recommendations. 4. toxic / metabolic encephalopathy ?- possibly in setting of acidemia, or a complication of metabolic disutrbances due to her urostomy tube, or due to acute infection as well. ?- consider severe depression, possible psych consultation with suspicion for self neglect. However acute metabolic etiologies need to be managed first. ?- ammonia level is elevated, can be seen in urostomy with UTI. Trial lactulose. No bowel movements today, if none tomorrow increase dosing. She is seemingly improving over the past few days. 5. Acute respiratory failure with hypoxia - patient desat to mid 80s today with nursing. CXR shows possible bilateral pneumonia and bilateral pleural effusions. - check pro-BNP, consider TTE in setting of malnutrition could be reflective of cardiomyopathy. - start azithromycin in addition to ceftriaxone for possible pneumonia. 6. Acute anemia - Hg trending down to 7.4, may be in setting of rehydration. IVF should be stopped today. - Check Iron profile, B12, folate. MCV is 108 suspect probable B12 or folate deficiency but could be mixed. - continue to monitor for signs of bleeding, none currently. - Goal Hg >7. 5. Diabetes type 2, chronic ?- continue home insulin and sliding scale . 6. . History of hypertension, chronic ?- continue home medications. 7. Anxiety and depression, severe, present on admission ?- continue home medications, consider psych as noted above. 8. Chronic pains/neuropathic pain, chronic ?- continue home medications Code: DNR Dispo: remains inpatient. Dispo unclear. Time Spent With Patient Critical Care time: I spent a total of [] minutes of critical care time on this patient's care today; this time is exclusive of procedural time. Quality VTE Deep Vein Thrombosis/Pulmonary Embolism Present on Admission: No
[2021-06-19] MEDS: AZITHROMYCIN 500 MG in DEXTROSE 5% IN WATER 250 ML IV (17:59)
[2021-06-19] MEDS: ROPINIROLE 0.25 MG TABLET 0.75 MG PO (21:04)
[2021-06-19] MEDS: MELATONIN 3 MG TABLET 9 MG PO (21:12)
[2021-06-19] MEDS: QUETIAPINE 100 MG TABLET 300 MG PO (21:18)
[2021-06-20] VITALS (16 sets, daily range): BP systolic 92–138; BP diastolic 52–71; PULSE 107–119; RESP 16–32; TEMP 36.4–37.9; O2SAT 83–99
--- NOTE | 2021-06-20 00:32 | PC.NURSE ---
Pt. refused to take her lactulose, states I been pooping a lot, my buttocks starting to get sore. Also declined to have her urostomy wafer & bag change. I'm okay, will do it tomorrow I need to sleep. Will monitor.
[2021-06-20] MEDS: SODIUM CHLORIDE 0.9% FLUSH 10 ML IV ×3 (06:59→21:10)
[2021-06-20] MEDS: INSULIN LISPRO 100 UNIT/ML 3ML VIAL SUBCUT ×3 (07:54→20:45)
[2021-06-20] MEDS: ENOXAPARIN 40 MG/0.4 ML SYRINGE SUBCUT (07:56)
[2021-06-20] MEDS: GABAPENTIN 300 MG CAPSULE 900 MG PO ×2 (07:56→20:44)
[2021-06-20] MEDS: FAMOTIDINE 20 MG TABLET PO ×2 (07:56→20:44)
[2021-06-20] MEDS: NICOTINE 14 PATCH 14 MG TOP (07:57)
[2021-06-20] MEDS: LACTULOSE 20 GM/30 ML SOLUTION PO ×2 (07:58→20:44)
--- NOTE | 2021-06-20 10:59 | DIET.PN1 ---
Dietary Progress Note RD Note: Pt with continuing poor POs over the past two days despite optimizing meal trays per pts preferences. Pt refusing most trays, consuming 5-20% if participating. Sending full fat yogurt or cottage cheese at all meals to encourage protein and kcal intake. Ht: 167.64 cm Wt: 46 kg BMI: 16.1 UBW: 55kg Last BM: 06/20/21 (06/20/21 02:12) MNA: 6 Johnnie Score: 16 Diet: 06/16/21 Dinner Carbohydrate Consistent Diet Diet Modifications: yogurt or cottage cheese c fruit if pt not order Carbohydrate level: Large (4 CHO) Nutrition Percent Meal Consumed 0% 06/18/21 18:00 Labs: RBC 2.05 X10^6/uL (4.0-5.2) L 06/19/21 09:10 Hgb 7.4 g/dL (12.0-16.0) L 06/19/21 09:10 Hct 22.1 % (36-46) L 06/19/21 09:10 Creatinine 0.43 mg/dL (0.52-1.04) L 06/19/21 09:10 Hemoglobin A1c 6.1 % (4.0-6.0) H 06/18/21 05:43 Lactate 0.9 mmol/L (0.7-2.1) 06/16/21 12:15 Nutrition Diagnosis: Severe Chronic Malnutrition r/t poor POs of unknown etiology aeb BMI 16.4, pt -10% weight loss in 3mo, pt back at lowest body weight on record (2019), severe muscle and fat wasting system wide, POs remain 0-20% despite nutrition interventions. Interventions: 1. Continue interventions and add ONS Glucerna once daily. Monitoring/Evaluations: following POs Electronically Signed by: Kristy Chauhan 06/20/21 10:59 Clinical Dietitian [address] [address]
[2021-06-20 11:10] LABS: Iron 28 ug/dL (37-170)
[2021-06-20 11:15] LABS: Alanine Aminotransferase 30 IU/L (<35); Albumin 1.9 g/dL (3.5-5.0); Albumin Globulin Ratio 0.6 (1.0-2.8); Alkaline Phosphatase 191 U/L (38-126); Aspartate Aminotransferase 52 IU/L (14-36); BUN Creatinine Ratio 19.5 (6-22); Bilirubin Total 0.5 mg/dL (0.2-1.3); Blood Urea Nitrogen 8 mg/dL (7-17); Calcium 7.9 mg/dL (8.4-10.2); Carbon Dioxide 15 mmol/L (22-32); Chloride 120 mmol/L (98-107); Estimated Glomerular Filt Rate > 60.0 mL/min (>60); Globulin 3.2 g/dL (1.7-4.1); Glucose 126 mg/dL (70-100); HEMOLYSIS 94 (0-50); Magnesium 1.8 mg/dL (1.6-2.3); Potassium 3.7 mmol/L (3.4-5.1); Sodium 139 mmol/L (137-145); Total Protein 5.1 g/dL (6.3-8.2)
[2021-06-20 11:16] LABS: HEMOLYSIS 87 (0-50)
[2021-06-20 11:20] LABS: Percent Iron Saturation 31 % (15-50); Total Iron Binding Capacity 91 ug/dL (265-497)
[2021-06-20 11:22] LABS: Transferrin < 80 mg/dL (206-381)
--- NOTE | 2021-06-20 11:23 | DI.RAD.S_ITS ---
PROCEDURE: XR CHEST 1V INDICATIONS: Short of breath TECHNIQUE: One view of the chest was acquired. COMPARISON: [facility], CR, XR CHEST 1 VIEW, 05/18/2021, 9:59. [facility], CR, XR CHEST 1V, 05/05/2021, 13:04. [facility], CR, XR CHEST 1V, 06/19/2021, 14:35. FINDINGS: Surgical changes and devices: There is a stable right-sided chest port. Left shoulder arthroplasty hardware is seen. Lungs and pleura: Abnormal interstitial infiltrates are seen, which are worse than on the 06/19/2021 examination. No pneumothorax can be seen. Trace blunting of the costophrenic angles can be seen. Mediastinum: Mediastinal contours appear normal. Heart size is normal. Bones and chest wall: No suspicious bony lesions. Age-appropriate bony degenerative changes are seen. There is a remote left humeral neck fracture. Overlying soft tissues appear unremarkable. IMPRESSION: Interstitial prominence is seen throughout. The interstitial prominence is nonspecific, yet may be related to pulmonary edema. Please consider atypical infection, including COVID pneumonia. Likely small bilateral pleural effusions are also seen. Dictated by: Damion Bonner M.D. on 06/20/2021 at 10:44 Approved by: Damion Bonner M.D. on 06/20/2021 at 10:45
[2021-06-20 11:24] LABS: NT-proBNP (BNP-Adult 18+) 1670 pg/mL (<125)
[2021-06-20 11:35] LABS: Hematocrit 23.3 % (36-46); Hemoglobin 7.7 g/dL (12.0-16.0); Mean Corpuscular Hemoglobin 35.2 PG (26-34); Mean Corpuscular Volume 106.7 fL (80-100); Platelet Count 289 X10^3/uL (150-400); Red Blood Cell Count 2.18 X10^6/uL (4.0-5.2); Red Cell Distribution Width 14.7 % (11.6-14.8); White Blood Cell Count 21.8 X10^3/uL (4.5-11.0)
[2021-06-20] MEDS: FUROSEMIDE 100 MG/10 ML VIAL 60 MG IV (11:42)
[2021-06-20] MEDS: MEROPENEM 1 GM in SODIUM CHLORIDE 0.9% 100 ML 200 ML IV ×2 (11:48→23:30)
[2021-06-20 12:01] LABS: Add Manual Diff / Slide Review YES
[2021-06-20 12:02] LABS: Vitamin B12 Reflex MMA if <400 818 pg/mL (239-931)
[2021-06-20 12:09] LABS: HCO3 ABG 13 mmol/L (22-26); PCO2 ABG 20.9 mmHg (35-45); PO2 ABG 59 mmHg (80-100); TCO2 ABG 14 mmol/L (21-31); pH ABG 7.42 (7.35-7.45)
[2021-06-20 12:10] LABS: Fractionated Inspired Oxygen 35; Oxygen Saturation ABG 91 % (95-100)
[2021-06-20 12:21] LABS: Folate > 20.0 ng/mL (2.76-20.0)
--- NOTE | 2021-06-20 13:09 | CM.DPNOTE ---
DCP Note CM team following closely throughout patient's stay. At this time, dispo remains unclear as medical POC continues to unfold. Patient transferred to ICU today. Cognition continues to wax and wane Patient with significant medical complications for a 55 yo to include severe malnutrition, acute on chronic urinary tract infections in setting of urostomy, severe non-anion gap metabolic acidosis, toxic / metabolic encephalopathy, Acute respiratory failure with hypoxia, Diabetes type 2, and sever anxiety and depression Supportive spouse at beside. According to conversations w/hospitalist team- Patient is a good candidate for inpatient psychiatric evaluation, however, metabolic encephalopathy and other medical conditions effecting mentation must be managed first This CM team will continue to follow closely as medical POC unfolds. Anticipate home w/spouse and HH upon medical clearance, need for additional outpatient resource referral remains unclear. Patient/spouse have been provided /[facility] provider list MYNOR Cui
--- NOTE | 2021-06-20 13:20 | P.PN_ITS ---
Subjective Subjective Date Patient Seen: 06/20/21 Time Patient Seen: 08:00 Interval history: This morning she was quite weak and short of breath. She was lethargic. She was noted to be satting in 80s on 4L placed on nonrebreather. She is >9L fluid positive documented. Chest xray shows fluid and possible pneumonia. BNP elevated. Broad specturm antibiotics with vanco/meropenem ordered. She was transferred to ICU for closer monitoring. I did speak with her who states family has seen her declining she has seemed like she is giving up having been so sick so frequently. Exam Vital Signs (past 8 hours): - 06/20/21 05:32 06/20/21 05:37 06/20/21 07:00 Temperature 98.6 F 100.2 F H Pulse Rate 111 H 111 H Respiratory Rate 16 19 Blood Pressure 104/62 101/52 L Pulse Oximetry 96 96 92 06/20/21 09:00 06/20/21 09:12 06/20/21 09:13 Temperature Pulse Rate 114 H 114 H Respiratory Rate 16 16 Blood Pressure Pulse Oximetry 92 92 92 06/20/21 11:00 06/20/21 11:47 06/20/21 12:47 Temperature 98.0 F 97.6 F Pulse Rate 107 H 114 H Respiratory Rate 19 32 H Blood Pressure 138/71 113/69 Pulse Oximetry 83 L 92 99 06/20/21 13:07 Temperature Pulse Rate Respiratory Rate Blood Pressure Pulse Oximetry 98 Fraction of Inspired Oxygen 35 Oxygen Delivery Method Non -Rebreather Oxygen Flow Rate 6 Narrative Exam Narrative: Gen: cachectic, chronically ill appearing, fatigued, lethargic Resp: diminished breath sounds at the bases, R > L. Poor inspiratory effort. tachypniec, bilateral crackles CV: tachycardic Abd: soft nontender, nondisteded, urostomy in place with clear yellow urine.. Extremities: no edema or joint effusions. Very thin and little muscle mass. Objective Labs Result Diagrams: 06/20/21 10:25 06/20/21 10:25 Labs: Laboratory Results - last 24 hr 06/20/21 06/20/21 06/20/21 10:25 10:25 10:25 WBC 21.8 H RBC 2.18 L Hgb 7.7 L Hct 23.3 L MCV 106.7 H MCH 35.2 H MCHC 33.0 RDW 14.7 Plt Count 289 Neut % (Auto) Not Reportable Lymph % (Auto) Not Reportable [place] % (Auto) Not Reportable Eos % (Auto) Not Reportable Baso % (Auto) Not Reportable Lymph # (Auto) Not Reportable [place] # (Auto) Not Reportable Baso # (Auto) Not Reportable ABG pH ABG pCO2 ABG pO2 ABG HCO3 ABG Total CO2 ABG O2 Saturation ABG Base Excess FiO2 Sodium Potassium Chloride Carbon Dioxide BUN Creatinine Estimated GFR BUN/Creatinine Ratio Glucose Calcium Magnesium Iron 28 L TIBC 91 L % Saturation 31 Transferrin < 80 L Total Bilirubin AST ALT Alkaline Phosphatase NT-Pro-B Natriuret Pep Total Protein Albumin Globulin Albumin/Globulin Ratio Vitamin B12 818 Folate SARS-CoV-2 (PCR) 06/20/21 06/20/21 06/20/21 10:25 11:59 12:30 WBC RBC Hgb Hct MCV MCH MCHC RDW Plt Count Neut % (Auto) Lymph % (Auto) [place] % (Auto) Eos % (Auto) Baso % (Auto) Lymph # (Auto) [place] # (Auto) Baso # (Auto) ABG pH 7.42 ABG pCO2 20.9 L* ABG pO2 59 L ABG HCO3 13 L ABG Total CO2 14 L ABG O2 Saturation 91 L ABG Base Excess -11.0 L FiO2 35 Sodium 139 Potassium 3.7 Chloride 120 H Carbon Dioxide 15 L BUN 8 Creatinine 0.41 L Estimated GFR > 60.0 BUN/Creatinine Ratio 19.5 Glucose 126 H Calcium 7.9 L Magnesium 1.8 Iron TIBC % Saturation Transferrin Total Bilirubin 0.5 AST 52 H ALT 30 Alkaline Phosphatase 191 H NT-Pro-B Natriuret Pep 1670 H Total Protein 5.1 L Albumin 1.9 L Globulin 3.2 Albumin/Globulin Ratio 0.6 L Vitamin B12 Folate > 20.0 H SARS-CoV-2 (PCR) Cancelled [facility] Medical History (Updated 06/16/21 @ 22:18 by YASMANI Velazquez) Anxiety Closed fracture of left humerus Endometriosis Fibromyalgia Heart palpitations History of asthma History of chronic hypertension History of COPD History of depression History of gastrointestinal ulcer History of kidney stones History of migraine History of panic attacks History of type 2 diabetes mellitus Hyperlipidemia Ileostomy in place Interstitial cystitis Tobacco dependence UTI (urinary tract infection) Surgical History History of urostomy S/P appendectomy Status post hysterectomy Status post left rotator cuff repair Family History Mother Diabetes mellitus Lupus Father Alcoholism Tobacco dependence Social History household members: spouse Smoking Status: Current every day smoker alcohol intake: current Assessment & Plan Assessment & Plan narrative: Melvi Gibbs is admitted as an inpatient for a urinary tract infection and malnutrition, probable encephalopathy, and NAGMA. 1. Acute hypoxemic respiratory failure ?- patient desat to mid 80s today on 4L started on NRB. CXR shows possible bilateral pneumonia and bilateral pleural effusions - BNP elevated -consider TTE -change antibiotics to vanco/meropenem -start IV lasix for diuresis 2. severe malnutrition and BMI of 16. ?- evidenced by patient's underweight BMI at 16, has muscle wasting a cachexia on exam. ?- dietary consultation placed. patient refused interventions previous admissions. 3. acute on chronic urinary tract infections in setting of urostomy ?- history of MRSA urinary infection ?-gran negative bacteria growing in her urine ?- urinary tract infections are due to her urostomy. ?- no evidence of acute pyelonephritis on ultrasound. Trace perinephric fluid on R but appears chronic based on prior imaging. ?- WBC remains elevated despite ceftriaxone monotherapy, broadended abx on 06/20 4. severe non-anion gap metabolic acidosis ?- may be due to urostomy with UTI. ?- consider nephrology consultation if no improvement with UTI treatments for further recommendations. 5. toxic / metabolic encephalopathy ?- possibly in setting of acidemia, or a complication of metabolic disutrbances due to her urostomy tube, or due to acute infection as well. ?- consider severe depression, possible psych consultation with suspicion for self neglect. However acute metabolic etiologies need to be managed first. ?- ammonia level is elevated, can be seen in urostomy with UTI. Trial lactulose 6. Acute anemia ?- Hg trending down to 7.4, may be in setting of rehydration. IVF stopped ?- Check Iron profile, B12, folate. MCV is 108 suspect malnutrition ?- continue to monitor for signs of bleeding, none currently. - Goal Hg >7. 6. Diabetes type 2, chronic ?- continue home insulin and sliding scale . 8. History of hypertension, chronic ?- continue home medications. 9. Anxiety and depression, severe, present on admission ?- continue home medications, consider psych as noted above. 10. Chronic pains/neuropathic pain, chronic ?- continue home medications Code: DNR Time Spent With Patient Critical Care time: I spent a total of [] minutes of critical care time on this patient's care today; this time is exclusive of procedural time. Quality VTE Deep Vein Thrombosis/Pulmonary Embolism Present on Admission: No
[2021-06-20 13:26] LABS: Ammonia (NH3) 17 umol/L (9-30)
--- NOTE | 2021-06-20 13:28 | PC.NURSE ---
Transfer Note Patient received from room 204 to room 228 at 1200 due to increasing oxygen requirements. Report received from Sloane CERVANTES. Patient is alert and oriented to self and place, responsive and able to make needs known. On venturi mask 35% FIO2 with SpO2 in the low 90s. Pt received Lasix 60 mg IV prior to transfer with good output noted to urostomy bag. Pt quickly weaned to 3L NC with SPO2 96%. RR remains in the 20-30s. Urostomy appliance and bag changed due to leaking, urine strong/foul smelling. Port reaccessed, slow to draw, ordered labs sent. All belongings with pt including purse and clothing. Call light within reach. updated by and is currently at bedside.
[2021-06-20 13:33] LABS: Lactate (Lactic Acid) 1.3 mmol/L (0.7-2.1)
[2021-06-20 13:40] LABS: Neutrophils Absolute Manual 18748 /uL (3000-5900); Total Cells Counted 100
[2021-06-20 13:41] LABS: Macrocytosis 2+
[2021-06-20] MEDS: VANCOMYCIN 1,000 MG/200 ML PIGGYBACK 200 MG IV ×2 (13:54→20:45)
[2021-06-20 15:13] LABS: COVID-19 CEPHEID PCR (VTM/NP) Negative (Negative)
[2021-06-20] MEDS: AZITHROMYCIN 500 MG in DEXTROSE 5% IN WATER 250 ML IV (17:36)
[2021-06-20] MEDS: FUROSEMIDE 40 MG/4 ML VIAL IV (18:32)
[2021-06-20] MEDS: QUETIAPINE 100 MG TABLET 300 MG PO (20:44)
[2021-06-20] MEDS: MELATONIN 3 MG TABLET 9 MG PO (20:44)
[2021-06-20] MEDS: ROPINIROLE 0.25 MG TABLET 0.75 MG PO (20:45)
[2021-06-20] MEDS: LORazepam 0.5 MG TABLET PO (22:29)
[2021-06-21] VITALS (24 sets, daily range): BP systolic 78–138; BP diastolic 50–81; PULSE 93–114; RESP 20–40; TEMP 36.2–36.9; O2SAT 85–100
--- NOTE | 2021-06-21 00:35 | PC.NURSE ---
Addendum entered by Rosaura Coreas R.N. 06/21/21 02:16: 0215: Spoke with Dr Jefferson, updated on pt condition, order recieved to administer 0700 dose of lasix 40mg IVP now. Will continue to monitor. O2 currently at 9L/NC with saturations=mid/high 90s Addendum entered by Rosaura Coreas R.N. 06/21/21 00:51: Current O2 flow=10L/min. Pt continues to deny SOB or offer any complaints. Original Note: 0000: Pt desaturating to mid 80s. Repositioned, encouraged to cough and deep breathe. Breath sounds diminished with faint fine crackles noted in R middle lobe. O2 increased to 5L/NC. 0035: RT called for continued desaturation, hi flow cannula placed on patient. Sats=95%. Will notify hospitalist and await orders.
[2021-06-21] MEDS: VANCOMYCIN 1,000 MG/200 ML PIGGYBACK 200 MG IV ×3 (01:37→14:16)
[2021-06-21] MEDS: FUROSEMIDE 40 MG/4 ML VIAL IV ×2 (02:16→21:26)
[2021-06-21 07:13] LABS: Alanine Aminotransferase 27 IU/L (<35); Albumin 1.9 g/dL (3.5-5.0); Albumin Globulin Ratio 0.7 (1.0-2.8); Alkaline Phosphatase 184 U/L (38-126); Aspartate Aminotransferase 37 IU/L (14-36); BUN Creatinine Ratio 17.5 (6-22); Bilirubin Total 0.3 mg/dL (0.2-1.3); Blood Urea Nitrogen 7 mg/dL (7-17); Calcium 7.4 mg/dL (8.4-10.2); Carbon Dioxide 16 mmol/L (22-32); Chloride 116 mmol/L (98-107); Estimated Glomerular Filt Rate > 60.0 mL/min (>60); Globulin 2.8 g/dL (1.7-4.1); Glucose 178 mg/dL (70-100); HEMOLYSIS < 15 (0-50); Sodium 137 mmol/L (137-145); Total Protein 4.7 g/dL (6.3-8.2)
[2021-06-21 07:14] LABS: Magnesium 1.4 mg/dL (1.6-2.3)
[2021-06-21 07:19] LABS: Potassium 2.5 mmol/L (3.4-5.1)
[2021-06-21 07:22] LABS: Red Blood Cell Count 1.89 X10^6/uL (4.0-5.2); White Blood Cell Count 19.2 X10^3/uL (4.5-11.0)
[2021-06-21 07:23] LABS: Add Manual Diff / Slide Review YES; Mean Corpuscular HGB Conc 33.1 % (30-36); Mean Corpuscular Hemoglobin 34.7 PG (26-34); Mean Corpuscular Volume 104.9 fL (80-100); Platelet Count 276 X10^3/uL (150-400); Red Cell Distribution Width 14.1 % (11.6-14.8)
[2021-06-21 07:24] LABS: Hemoglobin 6.5 g/dL (12.0-16.0)
[2021-06-21 07:25] LABS: Hematocrit 19.8 % (36-46)
--- NOTE | 2021-06-21 07:34 | DI.RAD.S_ITS ---
PROCEDURE: XR CHEST 1V INDICATIONS: Short of breath TECHNIQUE: One view of the chest was acquired. COMPARISON: [facility], CR, XR CHEST 1V, 05/05/2021, 13:04. [facility], CR, XR CHEST 1 VIEW, 05/18/2021, 9:59. [facility], CR, XR CHEST 1V, 06/19/2021, 14:35. [facility], CR, XR CHEST 1V, 06/20/2021, 11:24. FINDINGS: Surgical changes and devices: Left shoulder postoperative change is seen. There is a stable right-sided chest port. Lungs and pleura: Generalized interstitial prominence is seen, which is improved compared to the prior. On this semiupright study, no large pneumothorax or large pleural effusion can be seen. Mediastinum: Mediastinal contours appear normal. Heart size is normal. Bones and chest wall: No suspicious bony lesions. Overlying soft tissues appear unremarkable. IMPRESSION: Improved interstitial prominence compared to the prior. Dictated by: Damion Bonner M.D. on 06/21/2021 at 8:06 Approved by: Damion Bonner M.D. on 06/21/2021 at 8:07
[2021-06-21 08:18] LABS: Lactate (Lactic Acid) 1.7 mmol/L (0.7-2.1)
[2021-06-21] MEDS: PANTOPRAZOLE 40 MG VIAL IV ×2 (08:25→20:10)
[2021-06-21] MEDS: NICOTINE 14 PATCH 14 MG TOP (08:26)
[2021-06-21] MEDS: MAGNESIUM SULFATE 4 GM/100 ML PIGGYBACK IV (08:30)
[2021-06-21] MEDS: SODIUM CHLORIDE 0.9% 500 ML 1000 ML IV (08:30)
[2021-06-21] MEDS: POTASSIUM CHLORIDE IN WATER 10 MEQ/100 ML PIGGYBACK 100 MEQ IV ×7 (08:31→23:34)
[2021-06-21 09:43] LABS: Neutrophils Absolute Manual 16704 /uL (3000-5900); RBC Morphology Normal Morphology; Total Cells Counted 100; Toxic Vacuolation 3
[2021-06-21] MEDS: MEROPENEM 1 GM in SODIUM CHLORIDE 0.9% 100 ML 200 ML IV ×2 (11:15→23:48)
[2021-06-21] MEDS: INSULIN LISPRO 100 UNIT/ML 3ML VIAL SUBCUT ×2 (12:07→20:42)
[2021-06-21] MEDS: GABAPENTIN 300 MG CAPSULE 900 MG PO ×2 (12:18→20:09)
[2021-06-21] MEDS: DOCUSATE 100 MG CAPSULE PO (12:19)
[2021-06-21] MEDS: FAMOTIDINE 20 MG TABLET PO ×2 (12:19→20:10)
[2021-06-21] MEDS: ACETAMINOPHEN 325 MG TABLET 650 MG PO (12:19)
[2021-06-21] MEDS: POTASSIUM CHLORIDE 20 MEQ TAB 40 MEQ PO (12:20)
[2021-06-21] MEDS: VANCOMYCIN TROUGH 1 REQUEST MISC (13:49)
[2021-06-21 14:21] LABS: Vancomycin Trough 26.7 ug/mL (10-20)
--- NOTE | 2021-06-21 15:02 | PM.PN.1 ---
Subjective Subjective Date Patient Seen: 06/21/21 Time Patient Seen: 08:00 Interval history: Overnight she needed increasing oxygen requirements. This morning she was hypotensive to the 60s systolic. She was confused, but slightly more alert than yesterday. Labs showed anemia, with no evidence of GI bleeding, she was ordered for transfusion. She had received lasix yesterday and diuresed well, and with new hypotension was given a small bolus of IV fluid. Exam Vital Signs (past 8 hours): - 06/21/21 07:32 06/21/21 09:24 06/21/21 09:30 Temperature Pulse Rate 110 H Respiratory Rate 20 Blood Pressure 78/50 L Pulse Oximetry 90 L 93 91 06/21/21 11:41 06/21/21 13:00 06/21/21 13:50 Temperature 98.4 F Pulse Rate 108 H 107 H Respiratory Rate 40 H 23 Blood Pressure 85/55 L 86/57 L Pulse Oximetry 93 88 L 85 L 06/21/21 15:00 Temperature Pulse Rate Respiratory Rate Blood Pressure Pulse Oximetry 87 L Fraction of Inspired Oxygen 35 Oxygen Delivery Method High Flow Nasal Cannula Oxygen Flow Rate 9 Narrative Exam Narrative: Gen: cachectic, chronically ill appearing, fatigued, lethargic Resp: diminished breath sounds at the bases, R > L. Poor inspiratory effort. tachypniec, bilateral crackles CV: tachycardic Abd: soft nontender, nondisteded, urostomy in place with clear yellow urine.. Extremities: no edema or joint effusions. Very thin and little muscle mass. Objective Labs Result Diagrams: 06/21/21 04:45 06/21/21 04:45 Labs: Laboratory Results - last 24 hr 06/20/21 06/20/21 06/21/21 12:30 12:30 04:45 WBC 19.2 H RBC 1.89 L Hgb 6.5 L* Hct 19.8 L* MCV 104.9 H MCH 34.7 H MCHC 33.1 RDW 14.1 Plt Count 276 Neut % (Auto) Not Reportable Lymph % (Auto) Not Reportable [place] % (Auto) Not Reportable Eos % (Auto) Not Reportable Baso % (Auto) Not Reportable Lymph # (Auto) Not Reportable [place] # (Auto) Not Reportable Baso # (Auto) Not Reportable Total Counted 100 Seg Neutrophils % 84.0 H Band Neutrophils % 3.0 Lymphocytes % (Manual) 11.0 L Monocytes % (Manual) 1.0 L Eosinophils % (Manual) 1.0 L Neutrophils # (Manual) 67595 H Toxic Vacuolation 3 RBC Morphology Normal morphology Sodium Potassium Chloride Carbon Dioxide BUN Creatinine Estimated GFR BUN/Creatinine Ratio Glucose Lactate Calcium Magnesium Total Bilirubin AST ALT Alkaline Phosphatase Total Protein Albumin Globulin Albumin/Globulin Ratio Nasal Screen MRSA (PCR) Negative for mrsa Vancomycin Trough SARS-CoV-2 (PCR) Negative Blood Type Antibody Screen Crossmatch 06/21/21 06/21/21 06/21/21 04:45 04:45 07:49 WBC RBC Hgb Hct MCV MCH MCHC RDW Plt Count Neut % (Auto) Lymph % (Auto) [place] % (Auto) Eos % (Auto) Baso % (Auto) Lymph # (Auto) [place] # (Auto) Baso # (Auto) Total Counted Seg Neutrophils % Band Neutrophils % Lymphocytes % (Manual) Monocytes % (Manual) Eosinophils % (Manual) Neutrophils # (Manual) Toxic Vacuolation RBC Morphology Sodium 137 Potassium 2.5 L* D Chloride 116 H Carbon Dioxide 16 L BUN 7 Creatinine 0.40 L Estimated GFR > 60.0 BUN/Creatinine Ratio 17.5 Glucose 178 H Lactate Calcium 7.4 L Magnesium 1.4 L Total Bilirubin 0.3 AST 37 H ALT 27 Alkaline Phosphatase 184 H Total Protein 4.7 L Albumin 1.9 L Globulin 2.8 Albumin/Globulin Ratio 0.7 L Nasal Screen MRSA (PCR) Vancomycin Trough SARS-CoV-2 (PCR) Blood Type O Negative Antibody Screen Negative Crossmatch See Detail 06/21/21 06/21/21 07:49 13:38 WBC RBC Hgb Hct MCV MCH MCHC RDW Plt Count Neut % (Auto) Lymph % (Auto) [place] % (Auto) Eos % (Auto) Baso % (Auto) Lymph # (Auto) [place] # (Auto) Baso # (Auto) Total Counted Seg Neutrophils % Band Neutrophils % Lymphocytes % (Manual) Monocytes % (Manual) Eosinophils % (Manual) Neutrophils # (Manual) Toxic Vacuolation RBC Morphology Sodium Potassium Chloride Carbon Dioxide BUN Creatinine Estimated GFR BUN/Creatinine Ratio Glucose Lactate 1.7 Calcium Magnesium Total Bilirubin AST ALT Alkaline Phosphatase Total Protein Albumin Globulin Albumin/Globulin Ratio Nasal Screen MRSA (PCR) Vancomycin Trough 26.7 H* SARS-CoV-2 (PCR) Blood Type Antibody Screen Crossmatch [facility] Medical History (Updated 06/16/21 @ 22:18 by YASMANI Velazquez) Anxiety Closed fracture of left humerus Endometriosis Fibromyalgia Heart palpitations History of asthma History of chronic hypertension History of COPD History of depression History of gastrointestinal ulcer History of kidney stones History of migraine History of panic attacks History of type 2 diabetes mellitus Hyperlipidemia Ileostomy in place Interstitial cystitis Tobacco dependence UTI (urinary tract infection) Surgical History History of urostomy S/P appendectomy Status post hysterectomy Status post left rotator cuff repair Family History Mother Diabetes mellitus Lupus Father Alcoholism Tobacco dependence Social History household members: spouse Smoking Status: Current every day smoker alcohol intake: current Assessment & Plan Assessment & Plan narrative: Melvi Gibbs is admitted as an inpatient for a urinary tract infection and malnutrition, probable encephalopathy, and NAGMA. 1. Acute hypoxemic respiratory failure etiology likely CHF exacerbation and possible pneumonia - patient desat once again, was given diuresis, and still remains hypoxemic, further diuresis hindered by hypotension - BNP elevated -consider TTE -change antibiotics to vanco/meropenem -start IV lasix for diuresis when blood pressure improved 2. Anemia, acute -no evidence of overt GI bleeding -anemia labs look consistent with anemia of chronic disease -transfuse PRBC today 3. severe malnutrition and BMI of 16. ?- evidenced by patient's underweight BMI at 16, has muscle wasting a cachexia on exam. ?- dietary consultation placed. patient refused interventions previous admissions. 4. acute on chronic urinary tract infections in setting of urostomy ?- history of MRSA urinary infection ?- E. coli growing in her urine, sensitive to multiple medications, for now keep on meropenem given severe illness ?- urinary tract infections are due to her urostomy. ?- no evidence of acute pyelonephritis on ultrasound. Trace perinephric fluid on R but appears chronic based on prior imaging. ?- WBC remains elevated despite ceftriaxone monotherapy, broadened abx on 06/20 5. severe non-anion gap metabolic acidosis ?- may be due to urostomy with UTI. ?- consider nephrology consultation if no improvement with UTI treatments for further recommendations. 6. toxic / metabolic encephalopathy ?- possibly in setting of acidemia, or a complication of metabolic disutrbances due to her urostomy tube, or due to acute infection as well. ?- consider severe depression, possible psych consultation with suspicion for self neglect. However acute metabolic etiologies need to be managed first. ?- ammonia level is elevated, can be seen in urostomy with UTI. Trial lactulose 7. Hypomagnesemia, and hypokalemia, acute -secondary to diuresis -monitor daily 8 Diabetes type 2, chronic ?- continue home insulin and sliding scale . 9. History of hypertension, chronic ?- continue home medications. 10. Anxiety and depression, severe, present on admission ?- continue home medications, consider psych as noted above. 11. Chronic pains/neuropathic pain, chronic ?- continue home medications Code: DNR Time Spent With Patient Critical Care time: I spent a total of [] minutes of critical care time on this patient's care today; this time is exclusive of procedural time. Quality VTE Deep Vein Thrombosis/Pulmonary Embolism Present on Admission: No
[2021-06-21] MEDS: LORazepam 2 MG/ML INJ 0.5 MG IV ×2 (15:54→20:06)
--- NOTE | 2021-06-21 16:10 | PC.NURSE ---
Addendum entered by Mile Perea R.N. 06/21/21 18:56: Dr Hackett aware of Pt status, labs ordered stat. Port drawing, but it needs flushing frequently. Hep flushed. Original Note: Assumed care of patient, HFNC in place with 7L at present, Pt Spo2 82-87, Does not tolerate increased flow to NC well, becoming agitated and removing. Discussed with Dr Hackett, who writes for PRN Lorazepam. Given. Pt allowing NC to remain in place, not removing at present. 1645-Pt now more agitated. After replacing HFNC, Pt remains Spo2 70's RT called, switched to venturi mask @ 50% to keep 02>86%. Blood finishing. Crackles to bilateral bases.
[2021-06-21] MEDS: ALBUTEROL 2.5 MG/3 ML NEB (ADULT) INH (17:10)
[2021-06-21] MEDS: AZITHROMYCIN 500 MG in DEXTROSE 5% IN WATER 250 ML IV (18:41)
[2021-06-21 19:07] LABS: BUN Creatinine Ratio 18.4 (6-22); Blood Urea Nitrogen 7 mg/dL (7-17); Calcium 7.2 mg/dL (8.4-10.2); Carbon Dioxide 16 mmol/L (22-32); Chloride 118 mmol/L (98-107); Estimated Glomerular Filt Rate > 60.0 mL/min (>60); Glucose 156 mg/dL (70-100); HEMOLYSIS < 15 (0-50); Magnesium 2.4 mg/dL (1.6-2.3); Sodium 139 mmol/L (137-145)
[2021-06-21] MEDS: ROPINIROLE 0.25 MG TABLET 0.75 MG PO (20:09)
[2021-06-21] MEDS: PRAZOSIN 1 MG CAPSULE PO (20:09)
[2021-06-21] MEDS: MELATONIN 3 MG TABLET 9 MG PO (20:10)
[2021-06-21] MEDS: SODIUM CHLORIDE 0.9% FLUSH 10 ML IV (20:11)
[2021-06-21] MEDS: QUETIAPINE 100 MG TABLET 300 MG PO (20:13)
[2021-06-21] MEDS: VANCOMYCIN 1,500 MG/300 ML PIGGYBACK 200 MG IV (20:33)
--- NOTE | 2021-06-21 21:41 | PC.NURSE ---
Pt O2 Sats dropped to 70's NRB mask applied, MD notified and orders received for Lasix 40mg. BP 114/47. Noted that pt is minimally awake and confused re date and time, unable to offer answers to any questions. Will continue to monitor.
--- NOTE | 2021-06-21 22:41 | P.TELICUCN_ITS ---
History of Present Illness Consult details Chief complaint: Weak, dizzy, not eating x1 week Reason for consult: Hypoxemia Requesting provider: Jose Hackett Narrative: 55 yo w multiple medical problems including severe malnutrition (BMI 16), h/o cytostomy and urostomy and MDR bacterial infections who developed worsening hypoxic resp failure, requiring HFNC and upgrade to ICU. She is DNR. She did receive some lasix for diuresis but became hypotensive with it. Case was discussed w the patients by Dr Hackett who is working [facility] and her would like to continue current care but will likely transition to comfort measures in AM. [facility]LY [facility] Medical History (Updated 06/21/21 @ 22:48 by Teena Pierre MD) Anxiety Closed fracture of left humerus Endometriosis Fibromyalgia Heart palpitations History of asthma History of chronic hypertension History of COPD History of depression History of gastrointestinal ulcer History of kidney stones History of migraine History of panic attacks History of type 2 diabetes mellitus Hyperlipidemia Ileostomy in place Interstitial cystitis Tobacco dependence UTI (urinary tract infection) Surgical History History of urostomy S/P appendectomy Status post hysterectomy Status post left rotator cuff repair Family History Mother Diabetes mellitus Lupus Father Alcoholism Tobacco dependence Social History household members: spouse Smoking Status: Current every day smoker alcohol intake: current Current Medications Current Medications Medications: Home Medications albuterol sulfate 90 mcg/actuation aerosol inhaler (Proventil HFA) 2 puff INH Q4HP PRN #0 01/08/13 [History Confirmed 06/16/21] hydroxyzine HCl 25 mg tablet 50 mg PO BID #0 01/08/13 [History Confirmed 06/16/21] gabapentin 300 mg capsule (Neurontin) 900 mg PO BID #0 07/04/17 [History Confirmed 06/16/21] multivitamin (Multiple Vitamins) 1 tab PO DAILY #0 07/04/17 [History Confirmed 06/16/21] zolpidem 10 mg tablet (Ambien) 10 mg PO HS PRN #0 07/04/17 [History Confirmed 06/16/21] Probiotic 1 tab PO DAILY 07/02/18 [History Confirmed 06/16/21] omeprazole 20 mg capsule,delayed release 40 mg PO BID 09/26/17 [History Confirmed 06/16/21] ondansetron 4 mg disintegrating tablet 1 tab TRANSLINGUAL Q6H PRN 09/26/17 [History Confirmed 06/16/21] lorazepam 0.5 mg tablet 0.5 mg PO BEDTIME 05/30/18 [History Confirmed 06/16/21] insulin NPH isoph U-100 human 100 unit/mL (3 mL) subcutaneous pen (Humulin N NPH U-100 Insulin KwikPen) 15 unit SUBCUT BID 05/17/19 [History Confirmed 06/16/21] methocarbamol 500 mg tablet 500 mg PO QID 05/17/19 [History Confirmed 06/16/21] quetiapine 100 mg tablet 300 mg PO BEDTIME 11/04/19 [History Confirmed 06/16/21] melatonin 10 mg tablet 20 mg PO BEDTIME 12/08/19 [History Confirmed 06/16/21] promethazine 25 mg tablet 25 mg PO TID PRN #10 tab 04/16/20 [Rx Confirmed 06/16/21] promethazine 25 mg rectal suppository 25 mg [place] Q4-6H PRN #12 ea 04/19/20 [Rx Confirmed 06/16/21] cholecalciferol (vitamin D3) 25 mcg (1,000 unit) tablet (Vitamin D3) 25 mcg PO DAILY 08/31/20 [History Confirmed 06/16/21] docusate sodium 100 mg capsule 100 mg PO DAILY 08/31/20 [History Confirmed 06/16/21] prazosin 1 mg capsule 1 mg PO BEDTIME 08/31/20 [History Confirmed 06/16/21] ropinirole 0.25 mg tablet (Requip) 0.75 mg PO BEDTIME 08/31/20 [History Confirmed 06/16/21] vitamin E 400 unit tablet 400 unit PO DAILY 08/31/20 [History Confirmed 06/16/21] losartan 50 mg tablet 50 mg PO DAILY #30 tab 09/30/20 [Rx Confirmed 06/16/21] famotidine 20 mg tablet 20 mg PO BID 06/16/21 [History Confirmed 06/16/21] magnesium glycinate 1,050 mg PO QPM 06/16/21 [History Confirmed 06/16/21] Visit Medications (administered) Generic Name Dose Route Start Last Admin Trade Name Freq PRN Reason Stop Dose Admin Acetaminophen 650 mg 06/16/21 20:44 06/21/21 12:19 Acetaminophen 325 Mg Tablet PO 650 mg Q6HR PRN Administration Fever/Mild Pain (1-3) Albuterol 2.5 mg 06/16/21 22:40 06/21/21 17:10 Albuterol 2.5 Mg/3 Ml Neb (Adult) INH 2.5 mg Q4H PRN Administration Shortness Of Breath Docusate Sodium 100 mg 06/17/21 09:00 06/21/21 12:19 Docusate 100 Mg Capsule PO 100 mg DAILY ISSA Administration Famotidine 20 mg 06/17/21 21:00 06/21/21 20:10 Famotidine 20 Mg Tablet PO 20 mg BID ISSA Administration Gabapentin 900 mg 06/17/21 09:00 06/21/21 20:09 Gabapentin 300 Mg Capsule PO 900 mg BID ISSA Administration Heparin Sodium (Porcine) 50 unit 06/16/21 21:04 06/20/21 06:58 Heparin Flush (Cl/Picc/Mid-Line) 50 Unit/5 Ml Syringe IV 50 unit PRN PRN Administration Flush Heparin Sodium (Porcine) 50 unit 06/16/21 21:15 06/21/21 20:11 Heparin Flush (Cl/Picc/Mid-Line) 50 Unit/5 Ml Syringe IV 50 unit BID ISSA Administration Azithromycin 500 mg/ Dextrose 250 mls @ 250 mls/hr 06/19/21 17:15 06/21/21 21:40 IV 06/22/21 17:14 Infused Q24H ISSA Infusion Meropenem 1 gm/ Sodium 100 mls @ 200 mls/hr 06/20/21 12:00 06/21/21 12:05 Chloride IV Infused Q12H ISSA Infusion Vancomycin HCl/Dextrose 1,500 mg in 300 mls @ 200 mls/hr 06/21/21 21:00 06/21/21 20:33 Vancomycin IV 200 mls/hr Q12H ISSA Administration POTASSIUM CHLORIDE IN WATER 10 meq in 100 mls @ 100 mls/hr 06/21/21 21:00 06/21/21 22:22 Potassium Cl 10 Meq/100 Ml Arielle IV 06/22/21 00:59 100 mls/hr Q1H ISSA Administration Insulin Human Lispro 0 unit 06/17/21 17:45 06/21/21 20:42 Insulin Lispro 100 Unit/Ml 3ml Vial SUBCUT 1 unit ACHS ISSA Administration Protocol Lorazepam 0.5 mg 06/16/21 21:47 06/20/21 22:29 Lorazepam 0.5 Mg Tablet PO 0.5 mg BEDTIME PRN Administration Anxiety Lorazepam 0.5 mg 06/21/21 15:40 06/21/21 20:06 Lorazepam 2 Mg/Ml Inj IV 0.5 mg Q4HR PRN Administration Anxiety Melatonin 9 mg 06/16/21 22:45 06/21/21 20:10 Melatonin 3 Mg Tablet PO 9 mg BEDTIME ISSA Administration Nicotine 14 mg 06/17/21 09:00 06/21/21 08:26 Nicotine 14 Patch TOP 14 mg DAILY ISSA Administration Pantoprazole Sodium 40 mg 06/21/21 07:34 06/21/21 20:10 Pantoprazole 40 Mg Vial IV 40 mg BID ISSA Administration Prazosin HCl 1 mg 06/16/21 22:00 06/21/21 20:09 Prazosin 1 Mg Capsule PO 1 mg BEDTIME ISSA Administration Quetiapine Fumarate 300 mg 06/16/21 22:00 06/21/21 20:13 Quetiapine 100 Mg Tablet PO 300 mg BEDTIME ISSA Administration Ropinirole HCl 0.75 mg 06/16/21 22:00 06/21/21 20:09 Ropinirole 0.25 Mg Tablet PO 0.75 mg 2000 ISSA Administration Sodium Chloride 10 ml 06/16/21 18:34 06/20/21 06:59 Sodium Chloride 0.9% Flush IV 10 ml PRN PRN Administration Flush Sodium Chloride 10 ml 06/16/21 21:00 06/21/21 20:11 Sodium Chloride 0.9% Flush IV 10 ml BID ISSA Administration Exam Vital Signs (past 8 hours): - 06/21/21 15:00 06/21/21 15:23 06/21/21 15:35 Temperature 97.1 F L 97.3 F L Pulse Rate 102 H 102 H Respiratory Rate 22 23 Blood Pressure 91/54 L 89/57 L Pulse Oximetry 87 L 06/21/21 17:05 06/21/21 17:06 06/21/21 17:10 Temperature Pulse Rate 105 H 107 H Respiratory Rate 27 H 21 Blood Pressure 102/70 Pulse Oximetry 87 L 91 86 L 06/21/21 17:27 06/21/21 19:00 06/21/21 20:00 Temperature 97.9 F Pulse Rate 93 H Respiratory Rate 31 H Blood Pressure 138/81 Pulse Oximetry 89 L 98 100 06/21/21 21:15 Temperature Pulse Rate Respiratory Rate Blood Pressure Pulse Oximetry 95 Fraction of Inspired Oxygen 100 Oxygen Delivery Method Non -Rebreather Oxygen Flow Rate 10 Objective Labs Result Diagrams: 06/21/21 04:45 06/21/21 18:20 Labs: Laboratory Results - last 24 hr 06/21/21 06/21/21 06/21/21 04:45 04:45 04:45 WBC 19.2 H RBC 1.89 L Hgb 6.5 L* Hct 19.8 L* MCV 104.9 H MCH 34.7 H MCHC 33.1 RDW 14.1 Plt Count 276 Neut % (Auto) Not Reportable Lymph % (Auto) Not Reportable Gregory % (Auto) Not Reportable Eos % (Auto) Not Reportable Baso % (Auto) Not Reportable Lymph # (Auto) Not Reportable Gregory # (Auto) Not Reportable Baso # (Auto) Not Reportable Total Counted 100 Seg Neutrophils % 84.0 H Band Neutrophils % 3.0 Lymphocytes % (Manual) 11.0 L Monocytes % (Manual) 1.0 L Eosinophils % (Manual) 1.0 L Neutrophils # (Manual) 75625 H Toxic Vacuolation 3 RBC Morphology Normal morphology Sodium 137 Potassium 2.5 L* D Chloride 116 H Carbon Dioxide 16 L BUN 7 Creatinine 0.40 L Estimated GFR > 60.0 BUN/Creatinine Ratio 17.5 Glucose 178 H Lactate Calcium 7.4 L Magnesium 1.4 L Total Bilirubin 0.3 AST 37 H ALT 27 Alkaline Phosphatase 184 H Total Protein 4.7 L Albumin 1.9 L Globulin 2.8 Albumin/Globulin Ratio 0.7 L Vancomycin Trough Blood Type Antibody Screen Crossmatch 06/21/21 06/21/21 06/21/21 07:49 07:49 13:38 WBC RBC Hgb Hct MCV MCH MCHC RDW Plt Count Neut % (Auto) Lymph % (Auto) Gregory % (Auto) Eos % (Auto) Baso % (Auto) Lymph # (Auto) Gregory # (Auto) Baso # (Auto) Total Counted Seg Neutrophils % Band Neutrophils % Lymphocytes % (Manual) Monocytes % (Manual) Eosinophils % (Manual) Neutrophils # (Manual) Toxic Vacuolation RBC Morphology Sodium Potassium Chloride Carbon Dioxide BUN Creatinine Estimated GFR BUN/Creatinine Ratio Glucose Lactate 1.7 Calcium Magnesium Total Bilirubin AST ALT Alkaline Phosphatase Total Protein Albumin Globulin Albumin/Globulin Ratio Vancomycin Trough 26.7 H* Blood Type O Negative Antibody Screen Negative Crossmatch See Detail 06/21/21 18:20 WBC RBC Hgb Hct MCV MCH MCHC RDW Plt Count Neut % (Auto) Lymph % (Auto) Gregory % (Auto) Eos % (Auto) Baso % (Auto) Lymph # (Auto) Gregory # (Auto) Baso # (Auto) Total Counted Seg Neutrophils % Band Neutrophils % Lymphocytes % (Manual) Monocytes % (Manual) Eosinophils % (Manual) Neutrophils # (Manual) Toxic Vacuolation RBC Morphology Sodium 139 Potassium 3.0 L Chloride 118 H Carbon Dioxide 16 L BUN 7 Creatinine 0.38 L Estimated GFR > 60.0 BUN/Creatinine Ratio 18.4 Glucose 156 H Lactate Calcium 7.2 L Magnesium 2.4 H Total Bilirubin AST ALT Alkaline Phosphatase Total Protein Albumin Globulin Albumin/Globulin Ratio Vancomycin Trough Blood Type Antibody Screen Crossmatch Assessment & Plan Assessment and plan (1) Acute respiratory failure with hypoxia: Status: Acute (2) Acidosis: Status: Acute Assessment & Plan narrative: -Agree w HFNC -Would get ABG to evaluate her ascid-base status. May require some bicarb -Goals of care discussed w , will probably transition to comfort measures in AM d/w Dr Hackett Time Spent With Patient Critical Care time: I spent a total of [] minutes of critical care time on this patient's care today; this time is exclusive of procedural time.
[2021-06-21 23:33] LABS: pH ABG 7.42 (7.35-7.45)
[2021-06-21 23:34] LABS: Fractionated Inspired Oxygen 90; HCO3 ABG 18 mmol/L (22-26); Oxygen Saturation ABG 100 % (95-100); PO2 ABG 218 mmHg (80-100); TCO2 ABG 18 mmol/L (21-31)
[2021-06-21] MEDS: SODIUM BICARB 8.4% SYRINGE 50 MEQ IV (23:38)
[2021-06-21] MEDS: SODIUM BICARB 50 MEQ IV (23:46)
[2021-06-22] VITALS (26 sets, daily range): BP systolic 68–108; BP diastolic 42–63; PULSE 86–109; RESP 18–60; TEMP 36.3–37.2; O2SAT 87–100
[2021-06-22] MEDS: POTASSIUM CHLORIDE IN WATER 10 MEQ/100 ML PIGGYBACK 100 MEQ IV (00:28)
[2021-06-22 05:45] LABS: Hemoglobin 8.6 g/dL (12.0-16.0); Mean Corpuscular HGB Conc 34.5 % (30-36); Mean Corpuscular Hemoglobin 33.6 PG (26-34); Mean Corpuscular Volume 97.3 fL (80-100); Platelet Count 236 X10^3/uL (150-400); Red Blood Cell Count 2.56 X10^6/uL (4.0-5.2); Red Cell Distribution Width 18.4 % (11.6-14.8); White Blood Cell Count 14.9 X10^3/uL (4.5-11.0)
[2021-06-22 05:46] LABS: Hematocrit 24.9 % (36-46)
[2021-06-22 05:47] LABS: Add Manual Diff / Slide Review YES
[2021-06-22 06:22] LABS: Alanine Aminotransferase 25 IU/L (<35); Albumin 1.7 g/dL (3.5-5.0); Albumin Globulin Ratio 0.7 (1.0-2.8); Alkaline Phosphatase 190 U/L (38-126); Aspartate Aminotransferase 110 IU/L (14-36); Bilirubin Total 0.3 mg/dL (0.2-1.3); Blood Urea Nitrogen 7 mg/dL (7-17); Calcium 7.1 mg/dL (8.4-10.2); Carbon Dioxide 20 mmol/L (22-32); Chloride 118 mmol/L (98-107); Estimated Glomerular Filt Rate > 60.0 mL/min (>60); Globulin 2.6 g/dL (1.7-4.1); Glucose 166 mg/dL (70-100); HEMOLYSIS < 15 (0-50); Potassium 3.4 mmol/L (3.4-5.1); Sodium 140 mmol/L (137-145); Total Protein 4.3 g/dL (6.3-8.2)
[2021-06-22 06:52] LABS: Neutrophils Absolute Manual 13857 /uL (3000-5900); Total Cells Counted 100
[2021-06-22] MEDS: LORazepam 2 MG/ML INJ 0.5 MG IV ×3 (09:16→20:25)
--- NOTE | 2021-06-22 09:26 | PM.PN.EICU ---
Subjective Subjective :: This patient was seen via real time interactive two-way audiovisual telecommunication. Transferred ICU overnight for worsening hypoxemia and shock. On HFNC 45/60%. Restless and agitated which she received ativan IV. is on his way to the hospital for further goals of care discussion and potential transfer to comfort measure. Current Medications Current Medications Medications: Home Medications albuterol sulfate 90 mcg/actuation aerosol inhaler (Proventil HFA) 2 puff INH Q4HP PRN #0 01/08/13 [History Confirmed 06/16/21] hydroxyzine HCl 25 mg tablet 50 mg PO BID #0 01/08/13 [History Confirmed 06/16/21] gabapentin 300 mg capsule (Neurontin) 900 mg PO BID #0 07/04/17 [History Confirmed 06/16/21] multivitamin (Multiple Vitamins) 1 tab PO DAILY #0 07/04/17 [History Confirmed 06/16/21] zolpidem 10 mg tablet (Ambien) 10 mg PO HS PRN #0 07/04/17 [History Confirmed 06/16/21] Probiotic 1 tab PO DAILY 09/26/17 [History Confirmed 06/16/21] omeprazole 20 mg capsule,delayed release 40 mg PO BID 09/26/17 [History Confirmed 06/16/21] ondansetron 4 mg disintegrating tablet 1 tab TRANSLINGUAL Q6H PRN 09/26/17 [History Confirmed 06/16/21] lorazepam 0.5 mg tablet 0.5 mg PO BEDTIME 05/30/18 [History Confirmed 06/16/21] insulin NPH isoph U-100 human 100 unit/mL (3 mL) subcutaneous pen (Humulin N NPH U-100 Insulin KwikPen) 15 unit SUBCUT BID 05/17/19 [History Confirmed 06/16/21] methocarbamol 500 mg tablet 500 mg PO QID 05/17/19 [History Confirmed 06/16/21] quetiapine 100 mg tablet 300 mg PO BEDTIME 11/04/19 [History Confirmed 06/16/21] melatonin 10 mg tablet 20 mg PO BEDTIME 12/08/19 [History Confirmed 06/16/21] promethazine 25 mg tablet 25 mg PO TID PRN #10 tab 04/16/20 [Rx Confirmed 06/16/21] promethazine 25 mg rectal suppository 25 mg [place] Q4-6H PRN #12 ea 04/19/20 [Rx Confirmed 06/16/21] cholecalciferol (vitamin D3) 25 mcg (1,000 unit) tablet (Vitamin D3) 25 mcg PO DAILY 08/31/20 [History Confirmed 06/16/21] docusate sodium 100 mg capsule 100 mg PO DAILY 08/31/20 [History Confirmed 06/16/21] prazosin 1 mg capsule 1 mg PO BEDTIME 08/31/20 [History Confirmed 06/16/21] ropinirole 0.25 mg tablet (Requip) 0.75 mg PO BEDTIME 08/31/20 [History Confirmed 06/16/21] vitamin E 400 unit tablet 400 unit PO DAILY 08/31/20 [History Confirmed 06/16/21] losartan 50 mg tablet 50 mg PO DAILY #30 tab 09/30/20 [Rx Confirmed 06/16/21] famotidine 20 mg tablet 20 mg PO BID 06/16/21 [History Confirmed 06/16/21] magnesium glycinate 1,050 mg PO QPM 06/16/21 [History Confirmed 06/16/21] Visit Medications (administered) Generic Name Dose Route Start Last Admin Trade Name Freq PRN Reason Stop Dose Admin Acetaminophen 650 mg 06/16/21 20:44 06/21/21 12:19 Acetaminophen 325 Mg Tablet PO 650 mg Q6HR PRN Administration Fever/Mild Pain (1-3) Albuterol 2.5 mg 06/16/21 22:40 06/21/21 17:10 Albuterol 2.5 Mg/3 Ml Neb (Adult) INH 2.5 mg Q4H PRN Administration Shortness Of Breath Docusate Sodium 100 mg 06/17/21 09:00 06/21/21 12:19 Docusate 100 Mg Capsule PO 100 mg DAILY ISSA Administration Famotidine 20 mg 06/17/21 21:00 06/21/21 20:10 Famotidine 20 Mg Tablet PO 20 mg BID ISSA Administration Gabapentin 900 mg 06/17/21 09:00 06/21/21 20:09 Gabapentin 300 Mg Capsule PO 900 mg BID ISSA Administration Heparin Sodium (Porcine) 50 unit 06/16/21 21:04 06/22/21 01:31 Heparin Flush (Cl/Picc/Mid-Line) 50 Unit/5 Ml Syringe IV 50 unit PRN PRN Administration Flush Heparin Sodium (Porcine) 50 unit 06/16/21 21:15 06/21/21 20:11 Heparin Flush (Cl/Picc/Mid-Line) 50 Unit/5 Ml Syringe IV 50 unit BID ISSA Administration Azithromycin 500 mg/ Dextrose 250 mls @ 250 mls/hr 06/19/21 17:15 06/21/21 21:40 IV 06/22/21 17:14 Infused Q24H ISSA Infusion Meropenem 1 gm/ Sodium 100 mls @ 200 mls/hr 06/20/21 12:00 06/22/21 00:29 Chloride IV Infused Q12H ISSA Infusion Vancomycin HCl/Dextrose 1,500 mg in 300 mls @ 200 mls/hr 06/21/21 21:00 06/22/21 00:29 Vancomycin IV Infused Q12H ISSA Infusion Insulin Human Lispro 0 unit 06/17/21 17:45 06/21/21 20:42 Insulin Lispro 100 Unit/Ml 3ml Vial SUBCUT 1 unit ACHS ISSA Administration Protocol Lorazepam 0.5 mg 06/16/21 21:47 06/20/21 22:29 Lorazepam 0.5 Mg Tablet PO 0.5 mg BEDTIME PRN Administration Anxiety Lorazepam 0.5 mg 06/21/21 15:40 06/22/21 09:16 Lorazepam 2 Mg/Ml Inj IV 0.5 mg Q4HR PRN Administration Anxiety Melatonin 9 mg 06/16/21 22:45 06/21/21 20:10 Melatonin 3 Mg Tablet PO 9 mg BEDTIME ISSA Administration Nicotine 14 mg 06/17/21 09:00 06/21/21 08:26 Nicotine 14 Patch TOP 14 mg DAILY ISSA Administration Pantoprazole Sodium 40 mg 06/21/21 07:34 06/21/21 20:10 Pantoprazole 40 Mg Vial IV 40 mg BID ISSA Administration Prazosin HCl 1 mg 06/16/21 22:00 06/21/21 20:09 Prazosin 1 Mg Capsule PO 1 mg BEDTIME ISSA Administration Quetiapine Fumarate 300 mg 06/16/21 22:00 06/21/21 20:13 Quetiapine 100 Mg Tablet PO 300 mg BEDTIME ISSA Administration Ropinirole HCl 0.75 mg 06/16/21 22:00 06/21/21 20:09 Ropinirole 0.25 Mg Tablet PO 0.75 mg 2000 ISSA Administration Sodium Bicarbonate 50 meq 06/21/21 23:30 06/21/21 23:38 Sodium Bicarb 8.4% Syringe IV 06/22/21 23:31 50 meq NOW ISSA Administration Sodium Chloride 10 ml 06/16/21 18:34 06/20/21 06:59 Sodium Chloride 0.9% Flush IV 10 ml PRN PRN Administration Flush Sodium Chloride 10 ml 06/16/21 21:00 06/21/21 20:11 Sodium Chloride 0.9% Flush IV 10 ml BID ISSA Administration Objective Ventilator Parameters: Ventilator Settings FiO2 60 Labs Result Diagrams: 06/22/21 05:15 06/22/21 05:15 Labs: Laboratory Results - last 24 hr 06/21/21 06/21/21 06/21/21 04:45 07:49 13:38 WBC RBC Hgb Hct MCV MCH MCHC RDW Plt Count Neut % (Auto) Lymph % (Auto) Ogle % (Auto) Eos % (Auto) Baso % (Auto) Lymph # (Auto) Ogle # (Auto) Baso # (Auto) Total Counted 100 Seg Neutrophils % 84.0 H Band Neutrophils % 3.0 Lymphocytes % (Manual) 11.0 L Monocytes % (Manual) 1.0 L Eosinophils % (Manual) 1.0 L Neutrophils # (Manual) 00390 H Toxic Vacuolation 3 RBC Morphology Normal morphology Dimorphic RBCs ABG pH ABG pCO2 ABG pO2 ABG HCO3 ABG Total CO2 ABG O2 Saturation ABG Base Excess FiO2 Sodium Potassium Chloride Carbon Dioxide BUN Creatinine Estimated GFR BUN/Creatinine Ratio Glucose Calcium Magnesium Total Bilirubin AST ALT Alkaline Phosphatase Total Protein Albumin Globulin Albumin/Globulin Ratio Vancomycin Trough 26.7 H* Blood Type O Negative Antibody Screen Negative Crossmatch See Detail 06/21/21 06/21/21 06/22/21 18:20 23:15 05:15 WBC 14.9 H RBC 2.56 L Hgb 8.6 L Hct 24.9 L MCV 97.3 D MCH 33.6 MCHC 34.5 RDW 18.4 H Plt Count 236 Neut % (Auto) Not Reportable Lymph % (Auto) Not Reportable Ogle % (Auto) Not Reportable Eos % (Auto) Not Reportable Baso % (Auto) Not Reportable Lymph # (Auto) Not Reportable Ogle # (Auto) Not Reportable Baso # (Auto) Not Reportable Total Counted 100 Seg Neutrophils % 86.0 H Band Neutrophils % 7.0 Lymphocytes % (Manual) 4.0 L Monocytes % (Manual) 2.0 Eosinophils % (Manual) 1.0 L Neutrophils # (Manual) 55119 H Toxic Vacuolation RBC Morphology See below Dimorphic RBCs * ABG pH 7.42 ABG pCO2 27.0 L ABG pO2 218 H ABG HCO3 18 L ABG Total CO2 18 L ABG O2 Saturation 100 ABG Base Excess -7.0 L FiO2 90 Sodium 139 Potassium 3.0 L Chloride 118 H Carbon Dioxide 16 L BUN 7 Creatinine 0.38 L Estimated GFR > 60.0 BUN/Creatinine Ratio 18.4 Glucose 156 H Calcium 7.2 L Magnesium 2.4 H Total Bilirubin AST ALT Alkaline Phosphatase Total Protein Albumin Globulin Albumin/Globulin Ratio Vancomycin Trough Blood Type Antibody Screen Crossmatch 06/22/21 05:15 WBC RBC Hgb Hct MCV MCH MCHC RDW Plt Count Neut % (Auto) Lymph % (Auto) Ogle % (Auto) Eos % (Auto) Baso % (Auto) Lymph # (Auto) Ogle # (Auto) Baso # (Auto) Total Counted Seg Neutrophils % Band Neutrophils % Lymphocytes % (Manual) Monocytes % (Manual) Eosinophils % (Manual) Neutrophils # (Manual) Toxic Vacuolation RBC Morphology Dimorphic RBCs ABG pH ABG pCO2 ABG pO2 ABG HCO3 ABG Total CO2 ABG O2 Saturation ABG Base Excess FiO2 Sodium 140 Potassium 3.4 Chloride 118 H Carbon Dioxide 20 L BUN 7 Creatinine 0.35 L Estimated GFR > 60.0 BUN/Creatinine Ratio 20.0 Glucose 166 H Calcium 7.1 L Magnesium Total Bilirubin 0.3 AST 110 H ALT 25 Alkaline Phosphatase 190 H Total Protein 4.3 L Albumin 1.7 L Globulin 2.6 Albumin/Globulin Ratio 0.7 L Vancomycin Trough Blood Type Antibody Screen Crossmatch Exam Vital Signs (past 8 hours): - 06/22/21 02:00 06/22/21 03:00 06/22/21 04:00 Temperature 97.8 F Pulse Rate 86 92 H 96 H Respiratory Rate 31 H 34 H 32 H Blood Pressure 70/43 L 79/53 L 83/56 L Pulse Oximetry 99 92 94 06/22/21 05:00 06/22/21 06:25 06/22/21 07:00 Temperature Pulse Rate 98 H 100 H 99 H Respiratory Rate 24 40 H 36 H Blood Pressure 93/59 L 105/63 95/62 Pulse Oximetry 95 90 L 95 06/22/21 07:30 Temperature Pulse Rate 99 H Respiratory Rate 48 H Blood Pressure Pulse Oximetry 90 L Fraction of Inspired Oxygen 65 Oxygen Delivery Method Heated High Flow Oxygen Flow Rate 40 Quality TeleICU VTE Deep Vein Thrombosis/Pulmonary Embolism Present on Admission: No Assessment & Plan Assessment & Plan narrative: Acute hypoxemia respiratory failure -- Considered multifactorial due to pneumonia with superimposed pulmonary edema -- On vanc/meropenem/aizthromcyin -- Cont HFNC to maintain SPO2 > 88% -- HOB elevation -- Aspiration precaution -- Code -> DNR # Shock -- Secondary to distributive shock from sepsis -- On abx as above -- Remains hypotensive with current therapies -- is on his way to the hospital for further goals of care discussion and potential transfer to comfort measure D/w RN at bedside. Time Spent With Patient Critical Care time: I spent a total of [] minutes of critical care time on this patient's care today; this time is exclusive of procedural time.
--- NOTE | 2021-06-22 10:02 | PC.NURSE ---
Addendum entered by Mile Perea R.N. 06/22/21 18:41: At Pt bedside 1700, increased agitation, removing oxygen and extended recovery time, RT into assist and Pt requiring increased 02 flow to 60L 75% Fio2. Remains hypoxic, 84-87% Medicated with Ativan and Morphine per emar, Pt continues thrashing in bed, attempts to remove POrtacath. Tele removed. BP cuff off. SCDs off. Update to Dr Rice and PRN max have been exceeded. Morphine drip started, per order. This RN at bedside 1:1 for greater than 90 minutes until Patient safely able to be left without removing access and O2. at bedside and aware of increased need for meds. Addendum entered by Mile Perea R.N. 06/22/21 14:58: Pt has had morphine and ativan for agitation, and resting comfortably at present. Dwayne at bedside, verbalizes Pt comfort over being able to interact with them. Encourage to request pain medication if patient appears at all uncomfortable. Bed bath provided, Tilting bed for offloading pressure. HHFnC in place. Addendum entered by Mile Perea R.N. 06/22/21 11:10: Goals of care reviewed, Pt would like to be comfortable, will continue with 02 ect but add comfort care medications. NO pressors, comfort is goal per Dwayne and Patient. Original Note: Am shift Pt is restless at start of shift. HHFNC in place 40L 60% Fio2. RR remains elevated. 30-40 at rest. Pt opens eyes but cant follow commands well this am. Confused. Speech is delayed. No PO meds given this AM d/t unsafe swallow. Removing 02, and immediate drop to Spo2 70's. Ativan given for restlessness. Recheck, Pt is resting comfortably. Repositioning, however patient managing to return to supine 1000-RT into increase settings on HHFNC, 60L 65% Fio2.
[2021-06-22] MEDS: PANTOPRAZOLE 40 MG VIAL IV ×2 (10:51→20:29)
[2021-06-22] MEDS: VANCOMYCIN 1,500 MG/300 ML PIGGYBACK 200 MG IV ×2 (11:15→20:24)
[2021-06-22] MEDS: SODIUM CHLORIDE 0.9% FLUSH 10 ML IV ×2 (11:21→20:32)
[2021-06-22] MEDS: LORazepam 2 MG/ML ORAL SOL 0.5 MG PO ×3 (12:00→18:26)
[2021-06-22] MEDS: MORPHINE 10 MG/0.5 ML ORAL SYRINGE PO ×5 (12:05→18:02)
[2021-06-22] MEDS: MEROPENEM 1 GM in SODIUM CHLORIDE 0.9% 100 ML 200 ML IV ×2 (14:00→23:26)
--- NOTE | 2021-06-22 14:16 | CM.DPC ---
DCP Comfort Measures Per MD, had a Goals of Care discussion with spouse bedside and decision made to start the process of slowly moving to Comfort Care. Per RN, pt to have comfort care measures added but holding off right now on withdrawing any interventions at this time. Pt still on heated high flow oxygen and was getting IV-Abx but pt quite sensitive to fluids. RN discussed with director security risk management and Renée and got approval for pt's local adult son to also arrive bedside with spouse as this will likely be supportive care towards helping spouse and pt continue transition to full comfort measures and reducing interventions and SW also confirmed that this likely would help with the transition to comfort care. Plan: SW to follow closely tomorrow towards determining pt status and imminence towards expiring in the hospital vs determining d/c plan with Hospice services in place. MYNOR Sanchez
--- NOTE | 2021-06-22 15:09 | DIET.PN1 ---
Dietary Progress Note RD Note: RD reconsulted on patient with severe malnutrition for low Johnnie scale and poor POs. Despite nutrition intervention, pt POs remain meager at 0-25% of meal trays. GOC discussion had this am, pt moving to comfort care. Ht: 167.64 cm Wt: 46 kg BMI: 16.1 UBW: Last BM: 06/21/21 (06/21/21 22:25) MNA: 6 Johnnie Score: 17 Diet: 06/16/21 Dinner Carbohydrate Consistent Diet Diet Modifications: yogurt or cottage cheese c fruit if pt not order Carbohydrate level: Large (4 CHO) Nutrition Percent Meal Consumed 0% 06/21/21 18:00 Percent Meal Consumed 25% 06/21/21 12:53 Percent Meal Consumed 0% 06/20/21 18:24 Percent Meal Consumed 0% 06/20/21 16:00 Labs: RBC 2.56 X10^6/uL (4.0-5.2) L 06/22/21 05:15 Hgb 8.6 g/dL (12.0-16.0) L 06/22/21 05:15 Hct 24.9 % (36-46) L 06/22/21 05:15 Creatinine 0.35 mg/dL (0.52-1.04) L 06/22/21 05:15 Hemoglobin A1c 6.1 % (4.0-6.0) H 06/18/21 05:43 Lactate 1.7 mmol/L (0.7-2.1) 06/21/21 07:49 Iron 28 ug/dL (37-170) L 06/20/21 10:25 % Saturation 31 % (15-50) 06/20/21 10:25 NT-Pro-B Natriuret Pep 1670 pg/mL (<125) H 06/20/21 10:25 Monitoring/Evaluations: Pt can eat for comfort at this time, will continue sending preferred nourishments. Electronically Signed by: Kristy Chauhan 06/22/21 15:10 Clinical Dietitian [address] [id number]
--- NOTE | 2021-06-22 15:13 | PM.PN.1 ---
Subjective Subjective Date Patient Seen: 06/22/21 Time Patient Seen: 11:00 Interval history: Denies shortness of breath but requiring heated high flow NC today. Goals of care discussion with patient's and he's not ready for full comfort care at this time. He realizes she is quite ill and may worsen, but would like to continue current therapies without further escalation of care. Exam Vital Signs (past 8 hours): - 06/22/21 07:30 06/22/21 08:00 06/22/21 08:30 Pulse Rate 99 H 102 H Respiratory Rate 48 H 58 H Blood Pressure 94/58 L Pulse Oximetry 90 L 92 06/22/21 09:00 06/22/21 10:00 06/22/21 10:30 Pulse Rate 103 H 102 H 100 H Respiratory Rate 47 H 44 H 44 H Blood Pressure 94/63 Pulse Oximetry 87 L 94 96 06/22/21 11:00 06/22/21 11:30 06/22/21 12:00 Pulse Rate 101 H 103 H 105 H Respiratory Rate 60 H 42 H 35 H Blood Pressure 91/55 L Pulse Oximetry 95 90 L 88 L 06/22/21 12:30 06/22/21 13:00 06/22/21 13:45 Pulse Rate 102 H 101 H 98 H Respiratory Rate 52 H 32 H 30 H Blood Pressure Pulse Oximetry 90 L 92 93 Fraction of Inspired Oxygen 67 Oxygen Delivery Method High Flow Nasal Cannula Oxygen Flow Rate 60 Narrative Exam Narrative: Gen: cachectic, chronically ill appearing, fatigued, lethargic, barely able to opens eyes but responds appropriately to questions. Resp: diminished breath sounds at the bases, R > L. Poor inspiratory effort. tachypniec but improved. bilateral crackles CV: tachycardic with regular rhythm. Abd: soft nontender, nondisteded, urostomy in place with clear yellow urine.. Extremities: no edema or joint effusions. Very thin and little muscle mass. Objective Labs Result Diagrams: 06/22/21 05:15 06/22/21 05:15 Labs: Laboratory Results - last 24 hr 06/21/21 06/21/21 06/21/21 07:49 18:20 23:15 WBC RBC Hgb Hct MCV MCH MCHC RDW Plt Count Neut % (Auto) Lymph % (Auto) [place] % (Auto) Eos % (Auto) Baso % (Auto) Lymph # (Auto) [place] # (Auto) Baso # (Auto) Total Counted Seg Neutrophils % Band Neutrophils % Lymphocytes % (Manual) Monocytes % (Manual) Eosinophils % (Manual) Neutrophils # (Manual) RBC Morphology Dimorphic RBCs ABG pH 7.42 ABG pCO2 27.0 L ABG pO2 218 H ABG HCO3 18 L ABG Total CO2 18 L ABG O2 Saturation 100 ABG Base Excess -7.0 L FiO2 90 Sodium 139 Potassium 3.0 L Chloride 118 H Carbon Dioxide 16 L BUN 7 Creatinine 0.38 L Estimated GFR > 60.0 BUN/Creatinine Ratio 18.4 Glucose 156 H Calcium 7.2 L Magnesium 2.4 H Total Bilirubin AST ALT Alkaline Phosphatase Total Protein Albumin Globulin Albumin/Globulin Ratio Blood Type O Negative Antibody Screen Negative Crossmatch See Detail 06/22/21 06/22/21 05:15 05:15 WBC 14.9 H RBC 2.56 L Hgb 8.6 L Hct 24.9 L MCV 97.3 D MCH 33.6 MCHC 34.5 RDW 18.4 H Plt Count 236 Neut % (Auto) Not Reportable Lymph % (Auto) Not Reportable [place] % (Auto) Not Reportable Eos % (Auto) Not Reportable Baso % (Auto) Not Reportable Lymph # (Auto) Not Reportable [place] # (Auto) Not Reportable Baso # (Auto) Not Reportable Total Counted 100 Seg Neutrophils % 86.0 H Band Neutrophils % 7.0 Lymphocytes % (Manual) 4.0 L Monocytes % (Manual) 2.0 Eosinophils % (Manual) 1.0 L Neutrophils # (Manual) 61415 H RBC Morphology See below Dimorphic RBCs * ABG pH ABG pCO2 ABG pO2 ABG HCO3 ABG Total CO2 ABG O2 Saturation ABG Base Excess FiO2 Sodium 140 Potassium 3.4 Chloride 118 H Carbon Dioxide 20 L BUN 7 Creatinine 0.35 L Estimated GFR > 60.0 BUN/Creatinine Ratio 20.0 Glucose 166 H Calcium 7.1 L Magnesium Total Bilirubin 0.3 AST 110 H ALT 25 Alkaline Phosphatase 190 H Total Protein 4.3 L Albumin 1.7 L Globulin 2.6 Albumin/Globulin Ratio 0.7 L Blood Type Antibody Screen Crossmatch [facility] Medical History (Updated 06/21/21 @ 22:48 by Teena Pierre MD) Anxiety Closed fracture of left humerus Endometriosis Fibromyalgia Heart palpitations History of asthma History of chronic hypertension History of COPD History of depression History of gastrointestinal ulcer History of kidney stones History of migraine History of panic attacks History of type 2 diabetes mellitus Hyperlipidemia Ileostomy in place Interstitial cystitis Tobacco dependence UTI (urinary tract infection) Surgical History History of urostomy S/P appendectomy Status post hysterectomy Status post left rotator cuff repair Family History Mother Diabetes mellitus Lupus Father Alcoholism Tobacco dependence Social History household members: spouse Smoking Status: Current every day smoker alcohol intake: current Assessment & Plan Assessment & Plan narrative: Melvi Gibbs is admitted as an inpatient for a urinary tract infection and malnutrition, probable encephalopathy, and NAGMA. 1. Acute hypoxemic respiratory failure etiology likely CHF exacerbation and possible bacterial pneumonia - patient desat once again, was given diuresis, and still remains hypoxemic, further diuresis hindered by hypotension - BNP elevated -have ordered echo after goals of care discussion, may help to assist in prognostication given degree of respiratory failure. -change antibiotics to vanco/meropenem -start IV lasix for diuresis if BP improves. Not interested in inotropic assisted diuresis at this time. 2. Anemia, acute -no evidence of overt GI bleeding -anemia labs look consistent with anemia of chronic disease -transfused PRBC yesterday with adequate response, continue to follow for now. 3. severe malnutrition and BMI of 16. ?- evidenced by patient's underweight BMI at 16, has muscle wasting a cachexia on exam. ?- dietary consultation placed. patient refused interventions previous admissions. 4. acute on chronic urinary tract infections in setting of urostomy ?- history of MRSA urinary infection ?- E. coli growing in her urine, sensitive to multiple medications, for now keep on meropenem given severe illness ?- urinary tract infections are due to her urostomy. ?- no evidence of acute pyelonephritis on ultrasound. Trace perinephric fluid on R but appears chronic based on prior imaging. ?- WBC remains elevated despite ceftriaxone monotherapy, broadened abx on 06/20 with current improvement. 5. severe non-anion gap metabolic acidosis ?- may be due to urostomy with UTI. Now improved today to bicarb of 20 on BMP. ?- consider nephrology consultation if no improvement with UTI treatments for further recommendations. 6. toxic / metabolic encephalopathy ?- possibly in setting of acidemia, or a complication of metabolic disutrbances due to her urostomy tube, or due to acute infection as well. ?- consider severe depression, possible psych consultation with suspicion for self neglect. However acute metabolic etiologies need to be managed first. ?- ammonia level is elevated, can be seen in urostomy with UTI. Trial lactulose 7. Hypomagnesemia, and hypokalemia, acute -secondary to diuresis -monitor daily 8 Diabetes type 2, chronic ?- continue home insulin and sliding scale . 9. History of hypertension, chronic ?- continue home medications. 10. Anxiety and depression, severe, present on admission ?- continue home medications, consider psych as noted above. 11. Chronic pains/neuropathic pain, chronic ?- continue home medications 12. Palliative care planning - goals of care discussion with today. Current goals are primarily to focus on comfort, no de-escalation of care currently but also no escalation of care from this point. No pressure support desired if BP drops or inotropic assisted diuresis. will continue with echocardiogram for further prognostication and assistance in goal discussions moving forward. Code: DNR, no escalation of care at this time. If worsening likely comfort measures only. I spent 35 minutes providing critical care management this patient. This excludes time spent in performing separately billed procedures. Time Spent With Patient Critical Care time: I spent a total of [] minutes of critical care time on this patient's care today; this time is exclusive of procedural time. Quality VTE Deep Vein Thrombosis/Pulmonary Embolism Present on Admission: No
[2021-06-22] MEDS: MORPHINE 50 MG in DEXTROSE 5 % IN WATER 45 ML 5 ML IV (18:21)
[2021-06-23] VITALS: BP 75/50; PULSE 98; RESP 25; TEMP 36.7; O2SAT 96
[2021-06-23 01:34] VITALS: PULSE 99; RESP 20; O2SAT 93
[2021-06-23] MEDS: LORazepam 2 MG/ML INJ 0.5 MG IV (01:59)
--- NOTE | 2021-06-23 02:39 | PC.NURSE ---
0230 - Pt O2 sats trending down over the last several hours from 93% to upper 80's now 81% on 60L 50% HHF. MS infusing at 2mg/hr and respirations are laboured. MD notified seeking clarification on O2 parameters. Instructed not to titrate O2 and increase MS IV as needed for increased respiratory effort. Family notified re change in pt condition.
[2021-06-23 03:32] VITALS: PULSE 102; RESP 20; O2SAT 89
[2021-06-23 04:00] VITALS: BP 73/50; PULSE 103; RESP 16; TEMP 36.3; O2SAT 83
[2021-06-23] MEDS: MORPHINE 50 MG in DEXTROSE 5 % IN WATER 45 ML IV (06:16)
[2021-06-23 07:15] VITALS: PULSE 100; RESP 16; O2SAT 85
[2021-06-23] MEDS: PANTOPRAZOLE 40 MG VIAL IV (08:25)
[2021-06-23] MEDS: SODIUM CHLORIDE 0.9% FLUSH 10 ML IV (08:25)
--- NOTE | 2021-06-23 13:04 | CM.DPNOTE ---
DCP Note Spoke w/Dr Sandoval and w/ RN Roxy today re POC; Dr Sandoval plans to review goals of care, treatment options in detail today re new comfort management POC and expects to withdraw unnecessary treatments in order to focus on end of life care; if patient's spouse/family agree RN suggests patient will likely not survive this hospitalization if treatment is withdrawn. CM team will follow closely, RN aware of this, and will remain available to discuss next steps in DC planning as needed for this patient/family JW
--- NOTE | 2021-06-23 13:16 | PC.NURSE ---
Time of 12:55 06/23/2021. Confirmed by this RN and BILLY Ybarra. at bedside. Dr. Sandoval notified and professor of nursing notified.
--- NOTE | 2021-06-23 15:15 | PM.PN.1 ---
Subjective Subjective Interval history: Patient is unable to meaningfully participate in history acquisition this morning due to her multiple comorbidities. However, the patient's does endorse that she does not appear to be in pain. He is wishing to pursue full withdrawal of care today. Exam Vital Signs (past 8 hours): Fraction of Inspired Oxygen 0.57 Oxygen Delivery Method Room Air Oxygen Flow Rate 60 Const Other: Patient laying in bed with high-flow nasal cannulae in place, somnolent, and appears acutely ill. Eyes Other: No scleral icterus appreciated. Resp Other: Rhonchi appreciated bilaterally, most audibly in the mid-lung zones. Cardio Other: RRR. S1 and S2 heart sounds normal. No extra heart sounds or murmurs appreciated. GI Other: Soft, non-distended, non-tender, bowel sounds present. Skin Other: No grossly abnormal skin lesions noted. Extrem Other: Palpable dorsalis pedis pulses bilaterally. Objective Labs Result Diagrams: 06/22/21 05:15 06/22/21 05:15 [facility] Medical History (Updated 06/21/21 @ 22:48 by Teena Pierre MD) Anxiety Closed fracture of left humerus Endometriosis Fibromyalgia Heart palpitations History of asthma History of chronic hypertension History of COPD History of depression History of gastrointestinal ulcer History of kidney stones History of migraine History of panic attacks History of type 2 diabetes mellitus Hyperlipidemia Ileostomy in place Interstitial cystitis Tobacco dependence UTI (urinary tract infection) Surgical History History of urostomy S/P appendectomy Status post hysterectomy Status post left rotator cuff repair Family History Mother Diabetes mellitus Lupus Father Alcoholism Tobacco dependence Social History household members: spouse Smoking Status: Current every day smoker alcohol intake: current Assessment & Plan Assessment & Plan narrative: Melvi Gibbs is admitted as an inpatient for a urinary tract infection and malnutrition, probable encephalopathy, and NAGMA. 1. Acute hypoxemic respiratory failure etiology likely CHF exacerbation and possible bacterial pneumonia - patient desat once again, was given diuresis, and still remains hypoxemic, further diuresis hindered by hypotension - BNP elevated -change antibiotics to vanco/meropenem -start IV lasix for diuresis if BP improves. Not interested in inotropic assisted diuresis at this time. 2. Anemia, acute -no evidence of overt GI bleeding -anemia labs look consistent with anemia of chronic disease -transfused PRBC yesterday with adequate response, continue to follow for now. 3. severe malnutrition and BMI of 16. ?- evidenced by patient's underweight BMI at 16, has muscle wasting a cachexia on exam. ?- dietary consultation placed. patient refused interventions previous admissions. 4. acute on chronic urinary tract infections in setting of urostomy ?- history of MRSA urinary infection ?- E. coli growing in her urine, sensitive to multiple medications, for now keep on meropenem given severe illness ?- urinary tract infections are due to her urostomy. ?- no evidence of acute pyelonephritis on ultrasound. Trace perinephric fluid on R but appears chronic based on prior imaging. ?- WBC remains elevated despite ceftriaxone monotherapy, broadened abx on 06/20 with current improvement. 5. severe non-anion gap metabolic acidosis ?- may be due to urostomy with UTI. Now improved today to bicarb of 20 on BMP. ?- consider nephrology consultation if no improvement with UTI treatments for further recommendations. 6. toxic / metabolic encephalopathy ?- possibly in setting of acidemia, or a complication of metabolic disutrbances due to her urostomy tube, or due to acute infection as well. ?- consider severe depression, possible psych consultation with suspicion for self neglect. However acute metabolic etiologies need to be managed first. ?- ammonia level is elevated, can be seen in urostomy with UTI. Trial lactulose 7. Hypomagnesemia, and hypokalemia, acute -secondary to diuresis -monitor daily 8 Diabetes type 2, chronic ?- continue home insulin and sliding scale . 9. History of hypertension, chronic ?- continue home medications. 10. Anxiety and depression, severe, present on admission ?- continue home medications, consider psych as noted above. 11. Chronic pains/neuropathic pain, chronic ?- continue home medications 12. Palliative care planning ?- goals of care discussion with . Current goals are primarily to focus on comfort, no de-escalation of care currently but also no escalation of care from this point. No pressure support desired if BP drops or inotropic assisted diuresis. Code: DNR, no escalation of care at this time. If worsening likely comfort measures only. I have utilized all available immediate resources to obtain, update, or review the patient's current medications. Time Spent With Patient Critical Care time: I spent a total of [] minutes of critical care time on this patient's care today; this time is exclusive of procedural time. Quality VTE Deep Vein Thrombosis/Pulmonary Embolism Present on Admission: No MIPS - Admit I confirm the patient?s Advance Care Plan is present, Code status is documented, Surrogate decision maker is in patient?s record [If Yes, STOP here]: Yes
--- NOTE | 2021-06-23 15:21 | P.DN_ITS ---
Discharge Summary History of Illness Chief Complaint: Weakness Hospital Course Date of Admission: 06/16/21 15:55 Primary care provider: Fadi Ko DO Consults: 06/16/21 12:40 Consult to MEDICAL ANTHROPOLOGY DIRECTOR - Machine Operator Assistant Stat Comment: MEDICAL ANTHROPOLOGY DIRECTOR Consult needed for:: Community Health Res Need 06/16/21 17:58 Consult to Dietitian, Adult Routine Comment: Reason For Exam: significant weight loose & food intake over 3 wks 06/16/21 22:29 Consult to Ostomy Specialist Routine Comment: Consulting Provider: 06/22/21 07:31 Consult to Dietitian, Adult Routine Comment: Reason For Exam: protocol, wt loss hx, poor po intake Discharge Diagnosis: Melvi Gibbs is admitted as an inpatient for a urinary tract infection and malnutrition, encephalopathy, and NAGMA. 1. Acute hypoxemic respiratory failure etiology likely CHF exacerbation and possible bacterial pneumonia - Patient's status did not improve with diuresis, medical management - After [id number] conversation with patient's and DPOA, decision was made for full withdrawal of care - Patient on June 23, 2021 at 1255. 2. Anemia, acute - As above 3. Severe protein-calorie malnutrition and BMI of 16 ?- As above 4. Acute on chronic urinary tract infections in setting of urostomy ?- As above 5. Severe non-anion gap metabolic acidosis ?- As above 6. Toxic / metabolic encephalopathy ?- As above 7. Hypomagnesemia, and hypokalemia, acute - As above 8 Diabetes type 2, chronic ?- As above 9. History of hypertension, chronic ?- As above 10. Anxiety and depression, severe, present on admission ?- As above 11. Chronic pains/neuropathic pain, chronic ?- As above Objective Labs Result Diagrams: 06/22/21 05:15 06/22/21 05:15
[2021-06-28 15:42] LABS: HCO3 ABG 18 mmol/L (22-26); PO2 ABG 218 mmHg (80-100); TCO2 ABG 18 mmol/L (21-31); pH ABG 7.42 (7.35-7.45)
[2021-06-28 15:43] LABS: Oxygen Saturation ABG 100 % (95-100)
[2021-06-28 15:44] LABS: Fractionated Inspired Oxygen 60
== END 2021-06-23 12:40 | disposition expired | DRG 698 ==
LOC: ED 15:53 → AC 06-17 07:59 → ICU 06-22 07:49
PROVIDERS: Internal Medicine; Nurse Practitioner Family; Admitting Provider Internal Medicine; Emergency Provider Emergency Medicine; PCP Family Medicine; Referring Provider Emergency Medicine; Visit Provider Internal Medicine
DX: T83.518A Infection and inflammatory reaction due to other urinary catheter, initial encounter (principal); E43 Unspecified severe protein-calorie malnutrition; G92.8 Other toxic encephalopathy; J96.01 Acute respiratory failure with hypoxia; J15.9 Unspecified bacterial pneumonia; A41.9 Sepsis, unspecified organism; R65.21 Severe sepsis with septic shock; N39.0 Urinary tract infection, site not specified; Z68.1 Body mass index [BMI] 19.9 or less, adult; E87.2 Acidosis; F41.9 Anxiety disorder, unspecified; F32.9 Major depressive disorder, single episode, unspecified; B96.20 Unspecified Escherichia coli [E. coli] as the cause of diseases classified elsewhere; D64.9 Anemia, unspecified; I11.0 Hypertensive heart disease with heart failure; I50.9 Heart failure, unspecified; F17.210 Nicotine dependence, cigarettes, uncomplicated; E11.9 Type 2 diabetes mellitus without complications; G89.29 Other chronic pain; G62.9 Polyneuropathy, unspecified; E83.42 Hypomagnesemia; E87.6 Hypokalemia; E86.0 Dehydration; Z51.5 Encounter for palliative care; Z79.4 Long term (current) use of insulin; Z93.2 Ileostomy status; Z66 Do not resuscitate; Z20.822 Contact with and (suspected) exposure to COVID-19
CPT/HCPCS: 36415; 36430; 36591; 36592; 36600; 70450; 71045; 76770; 80048; 80053; 80202; 80305; 81001; 82140; 82550; 82607; 82746; 82805; 82962; 83036; 83540; 83550; 83605; 83690; 83735; 83880; 84145; 84484; 85007; 85025; 86850; 86900; 86901; 87040; 87077; 87086; 87186; 87635; 87797; 93005; 94640; 94760; 94762; 96361; 96365; 99285; 99406; C9803; P9016; U0003; U0005; A9270; C9113; J0696; J1642; J1650; J1815; J1940; J2060; J2185; J2270; J3475; J7613